=== PATIENT | female | born 1945 | race Caucasian/White ===

== ENCOUNTER → 2017-01-30 | Outpatient (CLI) | payer BC ==
[~2017-01-30] MED LIST: ACET-1256 PO; ADVIN50/60 INH; ALBU18002 INH; ALBUAER19 INH; ALPR-411 PO; AMLO-110 PO; AMOX1TAB43 PO; AMOX875T PO; ASPCH81X PO; ATOR80TA PO; CARV25TA PO; CHOL400T PO; CLOP1TAB54 PO; EZET10TA47 PO; FERR1TAB13 PO; FRRS300 PO; FRS/40 PO; FURO20TA PO; GLC/500 PO; GUAISYP4 PO; IPRA1AER2 INH; IPRASOL4 INH; LISI40TA PO; LSN5 PO; LSX20 PO; LSX40 PO; LVQ250 PO; MAGN1CAP2 PO; MAGN400T6 PO; METF500T PO; MGNO400 PO; MRLP17 PO; MRP25 PO; NUTR-7 PO; NYSS5 PO; OMEG10007 PO; OMEP40CA41 PO; ONDA8TAB62 SL; OXYC1TAB3 PO; POLY335019 PO; POTA-327 PO; POTA-74 PO; POTA10CA28 PO; PRED10TA PO; PRED20TA2 PO; PRVHFAIN INH; RXC5 PO; SERT50TA PO; SPIR25TA PO; SPIR50TA PO; SPR25 PO; SPRIN INH; SPRIN/30 INH; VNTHFA/IN INH; ZNT/150 PO
[2017-01-30 14:40] LABS: BASO % 0.2 %; BASO ABS # 0.01 K/uL (0-0.2); COMPLETE YES; HEMATOCRIT 37.6 % (37-47); LYMPH % 24.4 %; LYMPH ABS # 1.47 K/uL (1.2-3.4); MEAN CELL VOLUME 92.6 fL (80-100); MEAN CORPUSCULAR HEMOGLOBIN 30.5 pg (25-34); MEAN PLATELET VOLUME 9.7 fL (7.4-10.4); MONO % 11.8 %; NEUT % 61.6 %; PLATELET COUNT 189 K/uL (130-400); RED BLOOD COUNT 4.06 M/uL (4.2-5.4); WHITE BLOOD COUNT 6.03 K/uL (4.8-10.8)
[2017-01-30 14:52] LABS: URINE APPEARANCE CLEAR (CLEAR); URINE BILIRUBIN NEG (NEG); URINE COLOR YELLOW; URINE NITRITE NEG (NEG); URINE PH 6.5 (4.5-7.5); URINE SPECIFIC GRAVITY 1.008 (1.000-1.030); UROBILINOGEN NEG (NEG); ZZUR CULT IF INDIC CLEAN CATCH NO
[2017-01-30 14:54] LABS: MANUAL MICROSCOPIC REQUIRED? NO; REVIEW REQ? NO
[2017-01-30 15:03] LABS: ESTIMATED AVERAGE GLUCOSE 131 mg/dl; HA1C FLAG Normal (Normal)
[2017-01-30 15:30] LABS: CALCIUM 9.2 mg/dl (8.5-10.1)
[2017-01-30 15:59] LABS: ALT/SGPT 24 U/L (12-78); AST/SGOT 20 U/L (15-37); BLOOD UREA NITROGEN 17 mg/dl (7-18); BUN/CREATININE RATIO 19.1 (10-20); CARBON DIOXIDE 27 mmol/L (21-32); CHLORIDE 98 mmol/L (98-107); CHOLESTEROL 99 mg/dl (0-200); CREATININE 0.89 mg/dl (0.60-1.20); GLUCOSE 82 mg/dl (70-99); SODIUM 135 mmol/L (136-145); TRIGLYCERIDES 59 mg/dl (0-150); VERY LOW DENSITY LIPOPROT CALC 12 mg/dl
[2017-01-30 16:09] LABS: ALKALINE PHOSPHATASE 73 U/L (45-117); CHOLESTEROL/HDL RATIO 1.7; HDL CHOLESTEROL 60 mg/dl; LDL CHOLESTEROL CALCULATED 27 mg/dl
--- NOTE | 2017-02-06 10:17 | CODING QUERY MEDICAL NECESSITY ---
CQSUPPORTING DIAGNOSIS NEEDED A supporting diagnosis is required for the test/procedure performed on this patient in order for us to be reimbursed by the patient's insurance. Please provide a supporting diagnosis for the following test/procedure listed below next to the test name along with your signature. *If there is no additional diagnosis for this patient that would support the following test/procedure please document that below next to the test/procedure. Test(s)/Procedure(s) that require a supporting diagnosis: DOS 01/30/17 VITAMIN B12 TEST Provider Signature: Date: Thank you Millie Castillo Health Information Management Once completed, please kindly fax back to [phone] For questions please call [phone]
== END | disposition home or self-care (01) ==
LOC: C.LAB1850 13:12
PROVIDERS: ATTEND Internal Medicine
DX: E55.9 Vitamin D deficiency, unspecified (principal); D64.9 Anemia, unspecified; E78.5 Hyperlipidemia, unspecified; I10 Essential (primary) hypertension; E11.9 Type 2 diabetes mellitus without complications

== ENCOUNTER 2017-02-16 07:53 | Inpatient (IN) | payer BC, OTHER ==
[2017-02-16] VITALS (8 sets, daily range): BP systolic 103–161; BP diastolic 49–73; PULSE 83–103; TEMP 36.9–37.3; O2SAT 90–96; Ht 157.5 cm; Wt 51.1 kg
[~2017-02-16] VITALS: Ht 157.5 cm; Wt 51.1 kg
[~2017-02-16 07:53] MED LIST changes: -ACET-1256 PO; -ALBU18002 INH; -ALPR-411 PO; -AMOX1TAB43 PO; -AMOX875T PO; -ASPCH81X PO; -ATOR80TA PO; -CARV25TA PO; -CLOP1TAB54 PO; -EZET10TA47 PO; -FERR1TAB13 PO; -FRRS300 PO; -FRS/40 PO; -GLC/500 PO; -GUAISYP4 PO; -IPRA1AER2 INH; -IPRASOL4 INH; -LSN5 PO; -LSX20 PO; -LSX40 PO; -MAGN400T6 PO; -MGNO400 PO; -MRLP17 PO; -MRP25 PO; -NUTR-7 PO; -NYSS5 PO; -OMEG10007 PO; -OMEP40CA41 PO; -ONDA8TAB62 SL; -OXYC1TAB3 PO; -POLY335019 PO; -POTA-74 PO; -POTA10CA28 PO; -PRED10TA PO; -PRED20TA2 PO; -PRVHFAIN INH; -RXC5 PO; -SERT50TA PO; -SPIR25TA PO; -SPR25 PO; -SPRIN INH; -SPRIN/30 INH; -VNTHFA/IN INH; -ZNT/150 PO
[2017-02-16] MEDS ORDERED: SODIUM CHLORIDE 0.9% 1000ML 1,000 ML IV STA (08:19)
[2017-02-16 08:34] LABS: BASO % 0.1 %; BASO ABS # 0.01 K/uL (0-0.2); COMPLETE YES; HEMATOCRIT 38.4 % (37-47); IG% 0.4 %; LYMPH % 15.1 %; LYMPH ABS # 1.24 K/uL (1.2-3.4); MEAN CELL VOLUME 91.6 fL (80-100); MEAN CORPUSCULAR HEMOGLOBIN 31.7 pg (25-34); MEAN CORPUSCULAR HGB CONC 34.6 g/dl (32-36); MEAN PLATELET VOLUME 9.3 fL (7.4-10.4); MONO % 3.8 %; NEUT % 80.6 %; PLATELET COUNT 204 K/uL (130-400); RED BLOOD COUNT 4.19 M/uL (4.2-5.4); WHITE BLOOD COUNT 8.21 K/uL (4.8-10.8)
[2017-02-16 08:52] LABS: BUN/CREATININE RATIO 25.5 (10-20); CREATININE 0.87 mg/dl (0.60-1.20)
[2017-02-16 08:56] LABS: URINE APPEARANCE CLEAR (CLEAR); URINE BILIRUBIN NEG (NEG); URINE COLOR YELLOW; URINE NITRITE NEG (NEG); URINE PH 7.5 (4.5-7.5); URINE SPECIFIC GRAVITY 1.013 (1.000-1.030); UROBILINOGEN NEG (NEG); ZZUR CULT IF INDIC CLEAN CATCH YES
--- NOTE | 2017-02-16 08:56 | DIAGNOSTIC IMAGING REPORT ---
CHEST ONE VIEW PORTABLE HISTORY: syncope COMPARISON: Chest 03/15/2016. FINDINGS: The heart remains enlarged. Mild diffuse interstitial thickening suggestive of congestive change persists. No pleural effusions. No pneumothorax. No new focal lung consolidations. Left-sided pacemaker/defibrillator. IMPRESSION: No change in the cardiomegaly and mild congestive change. Electronically signed by: Alverto Pereira M.D. 02/16/2017 8:55 AM Dictated Date/Time: 02/16/2017 8:51 AM
[2017-02-16 09:01] LABS: MANUAL MICROSCOPIC REQUIRED? NO; REVIEW REQ? NO; SULFASALICYLIC ACID POS (NEG)
[2017-02-16] MEDS ORDERED: ALBUT/IPRATROP 3MG/0.5MG NEB 3 ML VIAL ONE (09:14)
[2017-02-16] MEDS ORDERED: ALBUT/IPRATROP 3MG/0.5MG NEB 3 ML VIAL INH STA ×2 (09:15→09:28)
[2017-02-16] MEDS ORDERED: METHYLPREDNISOLONE 125 MG VIAL IV STA (09:15)
[2017-02-16] MEDS ORDERED: ONDANSETRON INJ 2 MG/ML 2 ML VIAL IV STA (09:35)
--- NOTE | 2017-02-16 09:52 | DIAGNOSTIC IMAGING REPORT ---
ABDOMEN AND PELVIS CT WITH IV CONTRAST CT DOSE: 248.15 mGy.cm HISTORY: epigastric abd pain nausea. TECHNIQUE: Multiaxial CT images of the abdomen and pelvis were performed following the use of intravenous contrast. COMPARISON STUDY: Chest CTA 03/15/2016. FINDINGS: Pacemaker wires are present. The heart remains enlarged. Emphysema. Mild interstitial thickening and peripheral groundglass densities within the lung bases. There is a 7 mm groundglass nodule within the right lower lobe on image 6. No pneumoperitoneum. No pneumatosis. No suspicious lytic or blastic osseous lesions. Mild periportal edema. No hepatic or splenic masses. The adrenal glands and gallbladder are unremarkable. There is a punctate calcification within the pancreatic head. There suggestion of pancreas divisum. Bilateral renal calculi. There are few vascular calcifications within the left kidney. No hydronephrosis. The bladder is unremarkable. The uterus is surgically absent. No pelvic free fluid. No retroperitoneal lymphadenopathy. Heavily calcified abdominal aorta. 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 A 9 mm hypodense lesion within the right kidney is too small to characterize. A few sigmoid diverticula. No bowel wall thickening or obstruction. Small fat-containing right-sided Bochdalek hernia. IMPRESSION: 1. No bowel wall thickening or obstruction. 2. Normal appendix. 3. Bilateral nephrolithiasis. No hydronephrosis. 4. Mild periportal edema. 5. Cardiomegaly with mild interstitial thickening at the lung bases. This favors mild pulmonary edema. 6. A 7 mm groundglass nodule within the right lower lobe. Please refer to the chart below for recommended follow-up. 7. Pancreas divisum. 8. Additional findings are described above. Please refer to below summary of Fleischner criteria recommendations for follow-up of incidental CT nodules ([facility], Guidelines for management of small pulmonary nodules detected on CT scans: A statement from the Fleischner Society, Radiology 237: [phone].) SOLID NODULES Solitary nodule size: <6 mm * Low risk patients: no follow-up needed * high risk patients: optional CT at 12 months Solitary nodule size: 6-8 mm * Low risk patients: follow-up at 6-12 months, then consider further follow-up at 18-24 months * high risk patients: initial follow-up CT at 6-12 months and then at 18-24 months if no change Solitary nodule size: >8 mm * either low or high risk patients - consider follow-up CT at 3 months, and/or CT-PET, and/or biopsy Multiple nodules size: <6 mm * Low risk patients: no routine follow-up * high risk patients: optional CT at 12 months Multiple nodules size: 6-8 mm * Low risk patients: follow-up at 3-6 months, then consider further follow-up at 18-24 months * high risk patients: follow-up at 3-6 months, then at 18-24 months if no change Multiple nodules size: >8 mm * Low risk patients: follow-up at 3-6 months, then consider further follow-up at 18-24 months * high risk patients: follow-up at 3-6 months, then at 18-24 months if no change Note: newly detected indeterminate nodule in persons 35 years of age or older. * Low risk patients: minimal or absent history of smoking and/or other known risk factors * high risk patients: history of smoking or of other known risk factors (e.g. first degree relative with lung cancer, or exposure to asbestos, radon, uranium) * if a nodule up to 8 mm is partly solid or is ground glass further follow-up is required after 24 months to exclude possible slow growing adenocarcinoma (SHAUN) SUBSOLID NODULES Solitary pure ground-glass nodule * nodule size <6 mm - no CT follow-up required * nodule size >=6 mm - follow-up CT at 6-12 months, then every 2 years until 5 years Solitary part-solid nodule * nodule size <6 mm - no CT follow-up required * nodule size >=6 mm - follow-up CT at 3-6 months. If unchanged, and solid component remains <6 mm, then annual follow-up for 5 years Multiple subsolid nodules * nodule size <6 mm - follow-up CT at 3-6 months, consider further follow-up at 2 and 4 years if stable * nodule size >=6 mm - follow-up CT at 3-6 months, subsequent management based on the most suspicious nodule(s) Electronically signed by: Alverto Pereira M.D. 02/16/2017 9:51 AM Dictated Date/Time: 02/16/2017 9:40 AM
[2017-02-16] MEDS ORDERED: METOCLOPRAMIDE HCL INJ 5 MG/ML 2 ML VIAL IV STA (10:20)
--- NOTE | 2017-02-16 11:44 | DIAGNOSTIC IMAGING REPORT ---
CHEST CTA for PULMONARY ARTERIES CT DOSE: 227.71 mGy.cm HISTORY: Short of breath. TECHNIQUE: Multiaxial CT images of the chest were performed following the intravenous administration of contrast to evaluate the pulmonary arteries. Maximal intensity projection images were also obtained. COMPARISON STUDY: Chest CTA 03/15/2016. FINDINGS: No evidence for a dissection within the ascending thoracic aorta or aortic arch. Inadequate contrast within the descending thoracic aorta to assess for dissection. The thoracic aorta is normal in course and caliber. Heavily calcified thoracic aorta. The heart is enlarged. Left-sided pacemaker is again noted. No pleural or pericardial effusions. The main pulmonary artery measures up to 3.4 cm. This is consistent with pulmonary arterial hypertension. This remains unchanged. No evidence for pulmonary embolus. No pneumothorax. Emphysema. Diffuse interlobular septal thickening most pronounced at the lung bases. There are also multiple subpleural nodular densities within the lung bases. The largest in the right lower lobe measures 7 mm. Mild bronchial wall thickening. Patchy airspace opacities within the bases of the bilateral lower lobes posteriorly have also progressed from the abdomen and pelvis CT performed 2 hours earlier. Stable prominent paratracheal lymph node. No hilar lymphadenopathy. IMPRESSION: 1. No evidence for pulmonary embolus. 2. Progressive diffuse interstitial thickening likely representing interstitial pulmonary edema. 3. There are also progressive nodular densities within the periphery of the lung bases and progressive airspace opacities within the bilateral lower lobes posteriorly. This could also be due to alveolar pulmonary edema. However, an atypical pneumonia could also have a similar appearance. [address] follow-up is recommended to ensure resolution. 4. Emphysema. 5. Additional findings as described above. Electronically signed by: Alverto Pereira M.D. 02/16/2017 11:42 AM Dictated Date/Time: 02/16/2017 11:32 AM
[2017-02-16] MEDS ORDERED: ACETAMINOPHEN 325 MG TAB PO PRN (12:15)
[2017-02-16] MEDS ORDERED: POLYETHYLENE (MIRALAX) 17 GM PACK PO PRN (12:15)
[2017-02-16] MEDS ORDERED: ALUMINUM/MAGNESIUM/SIMETH (MAALOX MAX) 30 ML UDC PO PRN (12:15)
[2017-02-16] MEDS ORDERED: MAGNESIUM HYDROXIDE SUSP 30 ML UDC PO PRN (12:15)
--- NOTE | 2017-02-16 12:32 | Progress Note ---
Progress Note Date of Service February 16, 2017. Progress Note copd ex[facility], n/v, , [id number], 7mm RLL nodule, need to f/u with pcp, and f/u as recommended
[2017-02-16] MEDS ORDERED: AZITHROMYCIN 250 MG TAB PO ONE (12:37)
--- NOTE | 2017-02-16 13:19 | HISTORY & PHYSICAL EXAMINATION ---
DATE OF ADMISSION: 02/16/2017 This is level 3 inpatient admission, 35 minutes. CHIEF COMPLAINT: Nausea, vomiting, hypoxic. HISTORY OF PRESENT ILLNESS: The patient is a 71-year-old white female with a significant past medical history of diabetic, CAD, hypertension, asthma, pacemaker, came into the hospital Emergency Department because of the above chief complaint. The patient reports has persistent nauseation since last night. Became dizziness, some episodes of syncope. She does not believe she hit her head. Experienced 2-3 episodes of nauseation after passing out. Denied history of abdominal surgery. She has a pacemaker. In the Emergency Room, the abdominal CT studies were done. There was no acute disease. The patient was found has hypoxic. Nebulizer treatment and Solu-Medrol was given 1 dose. History of tobacco abuse disorder. ED physician feels the patient may have COPD exacerbation. When I interviewed with the patient, she looked tired but awake, alert and orientated. No more nausea, vomiting, no abdominal pain. Denied diarrhea or constipation. Denied chest pain, palpitations. No obvious lower extremity swelling. The patient has a wet cough, sounds congested in the lung. Denied fever or chills. Denied headache, blurry vision, double vision. The patient was smiling. Denies skin rashes. She reported feeling a little bit better after nebulizer treatment. PAST MEDICAL HISTORY: Include anemia, asthma, CAD, cardiac defibrillators in place, chronic kidney disease, diabetic, hypoxic and dyslipidemia. The patient does not need oxygen at home. ALLERGIES: ALLERGIC TO SULFA ANTIBIOTICS. FAMILY HISTORY: No significant family history. SOCIAL HISTORY: Current smoking half pack per day. Denied alcohol abuse disorder. Denied illicit drug abuse. MEDICATIONS: Currently taking at home include albuterol 2 puff q. 4-6 hour, amlodipine 7.5 mg p.o. q.p.m., aspirin 81 mg p.o. q.p.m., Lipitor 80 mg p.o. at bedtime, Coreg 25 mg p.o. b.i.d., Plavix 75 mg p.o. q.a.m., Zetia 10 mg p.o. at bedtime, fish oil 1 cap p.o. q. daily, Advair 500/50 1 puff b.i.d., Lasix 40 mg p.o. q.a.m., lisinopril 40 mg p.o. q.a.m., metformin 500 mg p.o. b.i.d., potassium 10 mEq p.o. b.i.d., Zoloft 50 mg p.o. q.a.m. PHYSICAL EXAMINATION: VITAL SIGNS: Temperature is 36.9, pulse 86, respiration rate 20, blood pressure 153/68, pulse ox was 95% on room air, later she needed 2-3 liters of CO2. GENERAL: The patient is awake, alert, and orientated, but looks tired. HEAD: Normocephalic. EYES: Pupils equal, round responds to light. EARS: Ear was normal. NOSE: Normal. NECK: Supple. Thyroid no enlargement. Trachea midline. HEART: Regular rhythm. S1, S2. LUNGS: Decreased breathing sounds, sporadic wheezing. Associated with dry crackles in bilateral lower lung. ABDOMEN: Soft, nontender. Bowel sound was positive. EXTREMITIES: Bilateral CVA was nontender. Bilateral upper and lower extremities no edema. Homans sign was negative. NEUROLOGICAL EVALUATION: Cranial nerve II-XII was intact. There was no focal deficits. IMAGING STUDIES: Chest x-ray shows mild congestive changes. Chest CT studies, there was no acute PE. Bilateral nephrolithiasis, no hydronephrosis. Again shows mild pulmonary edema. A 7 mm ground-glass nodules in the right lower lobe. Chest CT has no PE. LABORATORY STUDIES: WBC 8, hemoglobin 13, platelet 204. D-dimer 1050. Sodium 135, potassium 4, BUN 20, creatinine 0.8. Blood glucose 139. Liver function test was within normal limits. UA not remarkable. Urine culture pending. ASSESSMENT AND PLAN: A 71-year-old white female with the problems below: 1. Nausea, vomiting, possible gastritis. Abdominal CT are not remarkable. No acute disease. Will be supportive care. 2. Likely chronic obstructive pulmonary disease exacerbation with history of smoking with diffuse pulmonary wheezing. 3. Possible congestive heart failure exacerbation. I reviewed, no recent echo was done. The patient has shortness of breath with mild pulmonary edema in the chest x-ray and CT. 4. The patient has pacemaker. Is planning to have it replaced on next Saturday, which is in [address] Fernandes, therefore will consult Dr. Fernandes. 5. Diabetic. 6. History of coronary artery disease. 7. Dyslipidemia. Like I mentioned in the above, the patient has nausea, vomiting, and abdominal CT study not any acute disease. Lipase was negative, so will be supportive care by giving Zofran and PPI. The patient has hypoxic, the differential diagnosis includes COPD exacerbation or CHF exacerbation, likely has COPD exacerbation because history of smoking and diffuse wheezing. I will give azithromycin p.o. nebulizer treatment. Solu-Medrol IV. At the same time, like I mentioned, the differential diagnosis includes CHF. I will check echocardiogram. She was on oral Lasix 40 mg p.o. daily, will change to IV. Will follow up renal function. Check BNP, follow up chemical panels. Because the patient is going to be seen by Dr. Fernandes Saturday so will have him consultation for the replacement of pacemaker. Again, patient has syncope prior to admission, pacemaker was located which functioned well so the syncope etiology is unknown so will be in tele monitor. Other medical conditions include chronic kidney disease, CAD, diabetic, dyslipidemia, will continue home medication. Check fasting lipid panel and HbA1c. Check echocardiogram. GI and DVT prophylaxis is covered. MTDD
--- NOTE | 2017-02-16 13:24 | EMERGENCY ROOM VISIT NOTE ---
History Report prepared by Phillip: Tucker Cano Under the Supervision of: Dr. Nahun Perez D.O. First contact with patient: 08:09 Chief Complaint: NAUSEA Stated Complaint: NAUSEA, PASSED OUT ONCE, VOMITING History of Present Illness The patient is a 71 year old female who presents to the Emergency Room with complaints of persistent nausea since last night. The patient became dizzy and experienced an episode of syncope between 0130 and 0200 this morning. The patient does not believe that she hit her head. She experienced 2-3 episodes of vomiting after passing out, and did not vomit at all prior to that. She has had no abdominal surgeries. She has a pacemaker. Patient denies headache, change in vision, fevers, cough, rhinorrhea, chest pain, shortness of breath, abdominal pain, hematemesis, diarrhea, pain with urination, bright-red blood in her stools , or melena. Source of History: patient Onset: last night Position: other (GI) Quality: other (nausea) Timing: other (persistent) Associated Symptoms: + vomiting, No SOB, No abdominal pain, No chest pain, No cough, No diarrhea, No fevers, No headache, No hematochezia, No melena, No urinary symptoms Review of Systems See HPI for pertinent positives & negatives. A total of 10 systems reviewed and were otherwise negative. Past Medical & Surgical Medical Problems: (1) ANEMIA NOS (2) ASTHMA, UNSPECIFIED (3) Cardiac defibrillator in place (4) CHRONIC KIDNEY DISEASE, UNSPECIFIED (5) copd exac, n/v, (6) CORONARY ATHEROSCLEROSIS OF [place] CORONARY VESSEL (7) DIAB [place] WO COMPL, TYPE II OR UNSPEC TYPE, NOT UNCNTRLD (8) Hypoxia (9) PURE HYPERCHOLESTEROLEM Family History Patient reports no known family medical history. Social History Smoking Status: Current Every Day Smoker Drug Use: none Marital Status: Housing Status: lives with family Occupation Status: retired Current/Historical Medications Scheduled Albuterol Inhaler (Ventolin Inhaler), 2 PUFFS INH Q4-6H Amlodipine (Norvasc), 7.5 MG PO QPM Aspirin (Aspirin Chewable), 81 MG PO QPM Atorvastatin Calcium (Lipitor), 80 MG PO HS Carvedilol (Coreg), 25 MG PO BID Clopidogrel Bisulfate (Plavix), 75 MG PO QAM Ezetimibe (Zetia), 10 MG PO HS Fish Oil ([place]-3), 1 CAP PO DAILY Fluticasone Prop/Salmeterol (Advair Diskus 500/50 60 Dose), 1 PUFF INH BID Furosemide (Lasix), 40 MG PO QAM Lisinopril (Zestril), 40 MG PO QAM Metformin Hcl (Glucophage), 500 MG PO BID Potassium Chloride (Micro-K Ext Rel), 10 MEQ PO BID Sertraline (Zoloft), 50 MG PO QAM Allergies Coded Allergies: Sulfa Antibiotics (Verified Allergy, Intermediate, RASH, 02/16/17) Physical Exam Vital Signs Date Time Temp Pulse Resp B/P Pulse Ox O2 Delivery O2 Flow Rate FiO2 02/16/17 12:43 105 24 90 02/16/17 12:38 100 26 90 02/16/17 12:33 100 26 87 02/16/17 12:23 97 27 89 02/16/17 12:18 100 21 90 02/16/17 12:13 98 21 89 02/16/17 12:08 99 27 89 02/16/17 12:03 100 27 89 02/16/17 12:00 151/63 02/16/17 11:58 101 28 91 02/16/17 11:53 100 28 88 02/16/17 11:48 99 27 88 02/16/17 11:43 99 27 89 02/16/17 11:38 102 29 91 02/16/17 11:33 99 27 89 02/16/17 11:30 152/68 02/16/17 11:28 98 26 89 02/16/17 11:08 97 25 93 02/16/17 11:03 93 20 92 02/16/17 11:00 159/71 02/16/17 10:59 96 02/16/17 10:58 98 25 93 02/16/17 10:53 99 23 92 02/16/17 10:48 96 28 91 02/16/17 10:43 89 20 92 02/16/17 10:38 93 25 91 02/16/17 10:30 155/65 02/16/17 10:28 96 19 91 02/16/17 10:23 99 22 98 02/16/17 10:18 95 20 94 02/16/17 10:15 153/70 02/16/17 10:13 97 20 94 02/16/17 10:08 90 26 91 02/16/17 10:03 92 25 90 02/16/17 10:00 156/66 02/16/17 09:58 95 24 92 02/16/17 09:53 92 18 91 02/16/17 09:48 90 21 91 02/16/17 09:46 154/60 02/16/17 09:43 93 18 93 02/16/17 09:38 95 22 97 02/16/17 09:33 93 18 98 02/16/17 09:30 151/64 02/16/17 09:28 95 19 99 02/16/17 09:23 98 18 99 02/16/17 09:18 105 24 98 02/16/17 09:16 141/68 02/16/17 09:13 113 28 93 02/16/17 09:11 165/64 02/16/17 09:11 95 Nasal Cannula 4.0 02/16/17 09:10 150/111 02/16/17 08:53 92 22 90 02/16/17 08:48 91 27 94 02/16/17 08:43 88 21 02/16/17 08:38 93 25 92 02/16/17 08:33 92 25 95 02/16/17 08:31 153/70 02/16/17 08:28 93 20 94 02/16/17 08:23 94 25 94 02/16/17 08:09 151/69 02/16/17 07:57 36.9 86 20 153/68 99 Room Air Physical Exam GENERAL: Sitting up in bed, uncomfortable appearing, nontoxic. EYE EXAM: normal conjunctiva. OROPHARYNX: no exudate, no erythema, lips, buccal mucosa, and tongue normal and mucous membranes are moist NECK: supple, no nuchal rigidity, no adenopathy, non-tender LUNGS: Faint wheezing bilaterally. Normal chest wall mechanics HEART: no murmurs, S1 normal and S2 normal ABDOMEN: abdomen soft, non-tender, normo-active bowel sounds, no masses, no rebound or guarding. BACK: Back is symmetrical on inspection and there is no deformity, no midline tenderness, no CVA tenderness. SKIN: no rashes and no bruising UPPER EXTREMITIES: upper extremities are grossly normal. LOWER EXTREMITIES: No pitting edema. NEURO EXAM: Normal sensorium, cranial nerves II-XII intact, normal speech, no weakness of arms, no weakness of legs. No drift. Finger to nose intact. Gross sensation intact. Medical Decision & Procedures ER Provider Diagnostic Interpretation: Radiology results as stated below per my review and the radiologist's interpretation: CHEST ONE VIEW PORTABLE HISTORY: syncope COMPARISON: Chest 03/15/2016. FINDINGS: The heart remains enlarged. Mild diffuse interstitial thickening suggestive of congestive change persists. No pleural effusions. No pneumothorax. No new focal lung consolidations. Left-sided pacemaker/defibrillator. IMPRESSION: No change in the cardiomegaly and mild congestive change. Electronically signed by: Alverto Pereira M.D. 02/16/2017 8:55 AM Dictated Date/Time: 02/16/2017 8:51 AM ABDOMEN AND PELVIS CT WITH IV CONTRAST CT DOSE: 248.15 mGy.cm HISTORY: epigastric abd pain nausea. TECHNIQUE: Multiaxial CT images of the abdomen and pelvis were performed following the use of intravenous contrast. COMPARISON STUDY: Chest CTA 03/15/2016. FINDINGS: Pacemaker wires are present. The heart remains enlarged. Emphysema. Mild interstitial thickening and peripheral groundglass densities within the lung bases. There is a 7 mm groundglass nodule within the right lower lobe on image 6. No pneumoperitoneum. No pneumatosis. No suspicious lytic or blastic osseous lesions. Mild periportal edema. No hepatic or splenic masses. The adrenal glands and gallbladder are unremarkable. There is a punctate calcification within the pancreatic head. There suggestion of pancreas divisum. Bilateral renal calculi. There are few vascular calcifications within the left kidney. No hydronephrosis. The bladder is unremarkable. The uterus is surgically absent. No pelvic free fluid. No retroperitoneal lymphadenopathy. Heavily calcified abdominal aorta. 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 A 9 mm hypodense lesion within the right kidney is too small to characterize. A few sigmoid diverticula. No bowel wall thickening or obstruction. Small fat-containing right-sided Bochdalek hernia. IMPRESSION: 1. No bowel wall thickening or obstruction. 2. Normal appendix. 3. Bilateral nephrolithiasis. No hydronephrosis. 4. Mild periportal edema. 5. Cardiomegaly with mild interstitial thickening at the lung bases. This favors mild pulmonary edema. 6. A 7 mm groundglass nodule within the right lower lobe. Please refer to the chart below for recommended follow-up. 7. Pancreas divisum. 8. Additional findings are described above. Please refer to below summary of Fleischner criteria recommendations for follow-up of incidental CT nodules ([place] Dawn, Guidelines for management of small pulmonary nodules detected on CT scans: A statement from the Fleischner Society, Radiology 237: [phone].) SOLID NODULES Solitary nodule size: <6 mm * Low risk patients: no follow-up needed * high risk patients: optional CT at 12 months Solitary nodule size: 6-8 mm * Low risk patients: follow-up at 6-12 months, then consider further follow-up at 18-24 months * high risk patients: initial follow-up CT at 6-12 months and then at 18-24 months if no change Solitary nodule size: >8 mm * either low or high risk patients - consider follow-up CT at 3 months, and/or CT-PET, and/or biopsy Multiple nodules size: <6 mm * Low risk patients: no routine follow-up * high risk patients: optional CT at 12 months Multiple nodules size: 6-8 mm * Low risk patients: follow-up at 3-6 months, then consider further follow-up at 18-24 months * high risk patients: follow-up at 3-6 months, then at 18-24 months if no change Multiple nodules size: >8 mm * Low risk patients: follow-up at 3-6 months, then consider further follow-up at 18-24 months * high risk patients: follow-up at 3-6 months, then at 18-24 months if no change Note: newly detected indeterminate nodule in persons 35 years of age or older. * Low risk patients: minimal or absent history of smoking and/or other known risk factors * high risk patients: history of smoking or of other known risk factors (e.g. first degree relative with lung cancer, or exposure to asbestos, radon, uranium) * if a nodule up to 8 mm is partly solid or is ground glass further follow-up is required after 24 months to exclude possible slow growing adenocarcinoma (SHAUN) SUBSOLID NODULES Solitary pure ground-glass nodule * nodule size <6 mm - no CT follow-up required * nodule size >=6 mm - follow-up CT at 6-12 months, then every 2 years until 5 years Solitary part-solid nodule * nodule size <6 mm - no CT follow-up required * nodule size >=6 mm - follow-up CT at 3-6 months. If unchanged, and solid component remains <6 mm, then annual follow-up for 5 years Multiple subsolid nodules * nodule size <6 mm - follow-up CT at 3-6 months, consider further follow-up at 2 and 4 years if stable * nodule size >=6 mm - follow-up CT at 3-6 months, subsequent management based on the most suspicious nodule(s) Electronically signed by: Alverto Pereira M.D. 02/16/2017 9:51 AM Dictated Date/Time: 02/16/2017 9:40 AM CHEST CTA for PULMONARY ARTERIES CT DOSE: 227.71 mGy.cm HISTORY: Short of breath. TECHNIQUE: Multiaxial CT images of the chest were performed following the intravenous administration of contrast to evaluate the pulmonary arteries. Maximal intensity projection images were also obtained. COMPARISON STUDY: Chest CTA 03/15/2016. FINDINGS: No evidence for a dissection within the ascending thoracic aorta or aortic arch. Inadequate contrast within the descending thoracic aorta to assess for dissection. The thoracic aorta is normal in course and caliber. Heavily calcified thoracic aorta. The heart is enlarged. Left-sided pacemaker is again noted. No pleural or pericardial effusions. The main pulmonary artery measures up to 3.4 cm. This is consistent with pulmonary arterial hypertension. This remains unchanged. No evidence for pulmonary embolus. No pneumothorax. Emphysema. Diffuse interlobular septal thickening most pronounced at the lung bases. There are also multiple subpleural nodular densities within the lung bases. The largest in the right lower lobe measures 7 mm. Mild bronchial wall thickening. Patchy airspace opacities within the bases of the bilateral lower lobes posteriorly have also progressed from the abdomen and pelvis CT performed 2 hours earlier. Stable prominent paratracheal lymph node. No hilar lymphadenopathy. IMPRESSION: 1. No evidence for pulmonary embolus. 2. Progressive diffuse interstitial thickening likely representing interstitial pulmonary edema. 3. There are also progressive nodular densities within the periphery of the lung bases and progressive airspace opacities within the bilateral lower lobes posteriorly. This could also be due to alveolar pulmonary edema. However, an atypical pneumonia could also have a similar appearance. [address] follow-up is recommended to ensure resolution. 4. Emphysema. 5. Additional findings as described above. Electronically signed by: Alverto Pereira M.D. 02/16/2017 11:42 AM Dictated Date/Time: 02/16/2017 11:32 AM Laboratory Results 02/16/17 08:19 Red Blood Count 4.19, Mean Corpuscular Volume 91.6, Mean Corpuscular Hemoglobin 31.7, Mean Corpuscular Hemoglobin Concent 34.6, Mean Platelet Volume 9.3, Neutrophils (%) (Auto) 80.6, Lymphocytes (%) (Auto) 15.1, Monocytes (%) (Auto) 3.8, Eosinophils (%) (Auto) 0.0, Basophils (%) (Auto) 0.1, Neutrophils # (Auto) 6.62, Lymphocytes # (Auto) 1.24, Monocytes # (Auto) 0.31, Eosinophils # (Auto) 0.00, Basophils # (Auto) 0.01 02/16/17 08:19 Test 02/16/17 08:05 02/16/17 08:19 Urine Color YELLOW Urine Appearance CLEAR (CLEAR) Urine pH 7.5 (4.5-7.5) Urine Specific [place] 1.013 (1.000-1.030) Urine Protein 2+ (NEG) Urine Glucose (UA) NEG (NEG) Urine Ketones NEG (NEG) Urine Occult Blood TRACE (NEG) Urine Nitrite NEG (NEG) Urine Bilirubin NEG (NEG) Urine Urobilinogen NEG (NEG) Urine Leukocyte Esterase NEG (NEG) Urine WBC (Auto) 0 /hpf (0-5) Urine RBC (Auto) 0-4 /hpf (0-4) Urine Hyaline Casts (Auto) 0 /lpf (0-5) Urine Epithelial Cells (Auto) 10-20 /lpf (0-5) Urine Bacteria (Auto) 4+ (NEG) White Blood Count 8.21 K/uL (4.8-10.8) Red Blood Count 4.19 M/uL (4.2-5.4) Hemoglobin 13.3 g/dL (12.0-16.0) Hematocrit 38.4 % (37-47) Mean Corpuscular Volume 91.6 fL (80-100) Mean Corpuscular Hemoglobin 31.7 pg (25-34) Mean Corpuscular Hemoglobin Concent 34.6 g/dl (32-36) Platelet Count 204 K/uL (130-400) Mean Platelet Volume 9.3 fL (7.4-10.4) Neutrophils (%) (Auto) 80.6 % Lymphocytes (%) (Auto) 15.1 % Monocytes (%) (Auto) 3.8 % Eosinophils (%) (Auto) 0.0 % Basophils (%) (Auto) 0.1 % Neutrophils # (Auto) 6.62 K/uL (1.4-6.5) Lymphocytes # (Auto) 1.24 K/uL (1.2-3.4) Monocytes # (Auto) 0.31 K/uL (0.11-0.59) Eosinophils # (Auto) 0.00 K/uL (0-0.5) Basophils # (Auto) 0.01 K/uL (0-0.2) RDW Standard Deviation 52.2 fL (36.4-46.3) RDW Coefficient of Variation 15.4 % (11.5-14.5) Immature Granulocyte % (Auto) 0.4 % Immature Granulocyte # (Auto) 0.03 K/uL (0.00-0.02) D-Dimer 1050 ug/L FEU (0-500) Anion Gap 8.0 mmol/L (3-11) Est Creatinine Clear Calc Drug Dose 46.2 ml/min Estimated GFR () 77.1 Estimated GFR (Non- 66.6 BUN/Creatinine Ratio 25.5 (10-20) Bedside Glucose 139 mg/dl (70-90) Calcium Level 10.0 mg/dl (8.5-10.1) Total Bilirubin 0.5 mg/dl (0.2-1) Direct Bilirubin 0.1 mg/dl (0-0.2) Aspartate Amino Transf (AST/SGOT) 18 U/L (15-37) Alanine Aminotransferase (ALT/SGPT) 23 U/L (12-78) Alkaline Phosphatase 69 U/L (45-117) Troponin I 0.017 ng/ml (0-0.045) Total Protein 7.6 gm/dl (6.4-8.2) Albumin 4.1 gm/dl (3.4-5.0) Lipase 128 U/L (73-393) Laboratory results per my review. Medications Administered Medications (Trade) Dose Ordered Sig/[place] Route Start Time Stop Time Status Last Admin Dose Admin Sodium Chloride (Nss 1000ml) 1,000 ml @ 999 mls/hr Q1H1M STAT IV 02/16/17 08:19 02/16/17 09:19 DC 02/16/17 08:29 999 MLS/HR Albuterol/ Ipratropium (Duoneb) 3 ml NOW STAT INH 02/16/17 09:15 02/16/17 09:16 DC 02/16/17 09:28 3 ML Methylprednisolone Sodium Succinate (Solu-Medrol IV) 125 mg NOW STAT IV 02/16/17 09:15 02/16/17 09:16 DC 02/16/17 09:29 125 MG Albuterol/ Ipratropium (Duoneb) 3 ml NOW STAT INH 02/16/17 09:28 02/16/17 09:29 DC 02/16/17 09:41 3 ML Ondansetron HCl (Zofran Inj) 4 mg NOW STAT IV 02/16/17 09:35 02/16/17 09:36 DC 02/16/17 09:42 4 MG Metoclopramide HCl (Reglan Inj) 5 mg NOW STAT IV 02/16/17 10:20 02/16/17 10:21 DC 02/16/17 10:25 5 MG Azithromycin (Zithromax Tab) 500 mg 1237 ONCE PO 02/16/17 12:37 02/16/17 12:38 DC 02/16/17 12:45 500 MG ECG Indication: nausea Rate (beats per minute): 83 Rhythm: other (ventricular paced rhythm) Findings: left axis deviation, other (intermittent atrial contraction) Comparison ECG Date: 15 march 2016 Change: no significant change ED Course ED COURSE: Vital signs were reviewed and showed hypertension and tachycardia. The patients medical record was reviewed The above diagnostic studies were performed and reviewed. ED treatments and interventions as stated above. 0815: The patient was evaluated in room B5. A complete history and physical examination was performed. 0819: NSS 1000 ml @ 999 mls/hr. 0855: Spoke with Roman from [employer]. The pacemaker will be changed on by Dr. Fernandes. Her heart is paced due to an underlying block. The generator will last another several months. No aberrant rhythms noted. 14: The patient became short of breath while laying flat at CT. Pulse ox was 85 when she came back, She was placed on [place] oxygen. 0915: Solu-Medrol 125 mg IV, DuoNeb 3 ml INH. 0928: DuoNeb 3 ml INH. 0935: Zofran 4 mg IV. 1020: Reglan 5 mg IV. 1035: Updated the patient. 1110: The patient was still feeling short of breath upon reevaluation. 1144: Discussed the case with LEE Verdugo Hospitalist. The patient will be evaluated. 1145: Upon reevaluation, the patient is stable.I discussed my findings with the patient and she understands and agrees with the treatment plan. Based on the patients age, coexisting illnesses, exam and lab findings the decision to treat as an inpatient was made. The patient remained stable while under my care. The patient will be evaluated for further management. Medical Decision Differential diagnosis includes etiologies such as vasovagal event, infection, hypoglycemia, electrolyte abnormalities, cardiac sources, intracerebral event, toxicologic, neurologic, as well as others were entertained. Patient is a 71-year-old female who presents the ER for syncopal episode following nausea and vomiting associated with abdominal pain. She does have a pacemaker in place which is scheduled to be changed out this by Dr. Ureña. On exam she has a fairly benign abdomen. CT of her abdomen was performed and was negative, upon return from CAT scan she is hypoxic at 85% and significantly short of breath. She was placed on nasal cannula and given 2 neb treatments along with steroids. She had significant improvement of her symptoms. At this time she was sent back over for CT PE with a positive d- dimer. CT showed no acute PEs. There was a questionable infiltrate although she doesn't have any new acute cough. She remained on nasal cannula and was admitted to internal medicine for abdominal pain with persistent nausea and hypoxia likely secondary to her COPD. Pacemaker was interrogated on the ER and there is no aberrant rhythms. Consults Time Called: 1135 Consulting Physician: LEE Verdugo Hospitalist Returned Call: 1144 The patient will be evaluated. Impression Primary Impression: Nausea Additional Impressions: Hypoxia Syncope Scribe Attestation The scribe's documentation has been prepared under my direction and personally reviewed by me in its entirety. I confirm that the note above accurately reflects all work, treatment, procedures, and medical decision making performed by me. Departure Information Dispostion Being Evaluated By Hospitalist Referrals RV. Edwards MD (PCP) Patient Instructions My [facility] [address] Problem Qualifiers Additional Impressions: Syncope Syncope type: unspecified Qualified Codes: R55 - Syncope and collapse
[2017-02-16] MEDS ORDERED: DEXTROSE 50% 50 ML SYR IV PRN (13:45)
[2017-02-16] MEDS ORDERED: GLUCAGON FOR INJ 1 MG VIAL SQ PRN (13:45)
[2017-02-16] MEDS ORDERED: GLUCOSE 10 TABS/TUBE PO PRN (13:45)
[2017-02-16] MEDS ORDERED: GLUCOSE 40% GEL 15 GM TUBE PO PRN (13:45)
[2017-02-16] MEDS ORDERED: FUROSEMIDE INJ 40 MG in SYRINGE 0 ML IV STA (13:46)
[2017-02-16] MEDS ORDERED: LEVALBUTEROL/IPRATROPIUM NEB INH STA (13:46)
[2017-02-16] MEDS ORDERED: IPRATROPIUM BROMIDE NEB SOLN 0.02% 2.5 ML VIAL INH STA (13:51)
[2017-02-16] MEDS ORDERED: LEVALBUTEROL 1.25MG/0.5ML NEB INH STA (13:51)
[2017-02-16] MEDS: ONDANSETRON INJ 2 MG/ML 2 ML VIAL IV PRN (13:56)
[2017-02-16] MEDS ORDERED: FUROSEMIDE INJ 40 MG in SYRINGE 0 ML IV SCH (14:00)
[2017-02-16 14:04] LABS: PARTIAL THROMBOPLASTIN RATIO 1.1; PROTHROMBIN TIME (PATIENT) 10.6 SECONDS (9.0-12.0)
[2017-02-16 14:24] LABS: ALLEN TEST POS (POS); ARTERIAL BLD GAS O2 SATURATION 91.7 % (90-95); ARTERIAL BLOOD GAS BASE EXCESS -0.5 mEq/L (-9-1.8); ARTERIAL BLOOD GAS HCO3 24 mmol/L (19-24); ARTERIAL BLOOD GAS PO2 68 mm/Hg (80-95); ARTERIAL BLOOD GAS pH 7.41 (7.35-7.45); O2 ADMINISTRATION 6L
[2017-02-16] MEDS: IPRATROPIUM BROMIDE NEB SOLN 0.02% 2.5 ML VIAL INH SCH ×2 (14:43→20:02)
[2017-02-16] MEDS: LEVALBUTEROL 1.25MG/0.5ML NEB INH SCH ×2 (14:43→20:02)
[2017-02-16] MEDS ORDERED: PIPERACILL/TAZOBAC CONSULT ACTIVE PRN (14:59)
[2017-02-16] MEDS ORDERED: LEVALBUTEROL/IPRATROPIUM NEB INH SCH (15:00)
[2017-02-16] MEDS ORDERED: PIPERACILL/TAZOBAC IV 3.375 GM in DEXTROSE 5% 100ML IV ONE (15:30)
--- NOTE | 2017-02-16 15:39 | PULMONARY CONSULTATION ---
DATE OF CONSULTATION: 02/16/2017 DATE OF CONSULTATION: 02/16/2017. TIME: 2:30 p.m. REPORT OF CONSULTATION: The patient was seen in room 278, bed 1. Consultation is requested regarding hypoxia. HISTORY OF PRESENT ILLNESS: Mrs. Jameson presented to the Emergency Room with complaints of nausea and vomiting. The nausea began last evening. She states that during the night time she had gone into the bathroom. She was then getting up from the toilet and she passed out briefly. She did not hurt herself, she thinks. She then began having vomiting. She threw up 2-3 times. She states she was wide awake while she was vomiting. She does not think she vomited anything into her lungs. She is still nauseated. She was quite uncomfortable with nausea at the time I was doing my consult. This is despite having been given some medicines for this. After she got to her room at the floor she did not have oxygen on and her saturations were in the 70s. With nasal cannula; however, her oxygen came up fairly quickly. The patient states she is not significantly short of breath. She does have somewhat of a chronic cough. Occasionally she will expectorate mucus. She has not coughed up any blood. The patient was vague about her cough. She has a longstanding history of smoking. For about 55 years, she smoked 3/4 packs per day. She has been cutting back and for a month or so has been down to 3 cigarettes per day. She denies having any chills or fevers or sweats. She is not having abdominal pain. She denies having any loose stools. I asked her what she ate last evening. She states at suppertime she did not eat all that much, but after a while she had some cheese fries. She does not think she could have eaten anything that might have had food poisoning. Her did not get sick. The patient does have a history of COPD. She has been on a nebulizer as needed at home. She also has an Advair inhaler and Ventolin inhaler. She denies difficulty going up steps. I actually could not ask the patient very many more questions because she was so uncomfortable with her nausea. PAST SURGICAL HISTORY: 1. Pacer defibrillator. 2. Carotid endarterectomy. 3. Cataracts bilaterally. PAST MEDICAL HISTORY: 1. COPD. 2. Chronic kidney disease. 3. Coronary artery disease. 4. Diabetes type 2. 5. Hypercholesterolemia. FAMILY HISTORY: Both parents had heart disease. SOCIAL HISTORY: Tobacco as noted above 3/4 pack per day for 55 years, now down to 3 cigarettes per day. ALLERGIES: SULFA. REVIEW OF SYSTEMS: I could not obtain this completely because the patient was very uncomfortable from a nausea perspective. PHYSICAL EXAMINATION: GENERAL: The patient is a 71-year-old female who was cooperative, alert and oriented. She looked very uncomfortable from a perspective of the nausea. Her BMI is 20.7. Weight is 51.3 kilograms. HEAD, EYES, EARS, NOSE, AND THROAT: Eye exam showed implants bilaterally. Nares were clear. Nasal cannula was in place. Mouth exam was negative. NECK: Palpation of the neck reveals no lymph nodes. CHEST: Was of normal development. Heart rate was 100 per minute. The rhythm was regular. Respiratory rate was 24 breaths per minute. Oxygen saturation was 94% on 4 liters. LUNGS: The breath sounds are well heard. She did have scattered rales posteriorly bilaterally. ABDOMEN: Soft. Bowel sounds were present. She complained of some tenderness in the mid epigastrium with palpation. No masses were palpable. EXTREMITIES: Showed no cyanosis, clubbing or edema. The patient had a chest x-ray done that showed cardiomegaly with mild congestive change and interstitial thickening. A CAT scan of the abdomen was done and this showed bilateral nephrolithiasis but without hydronephrosis. A small 7 mm ground-glass nodule was seen in the right lower lobe. Approximately 2 hours after the CAT scan of the abdomen was done she had a CAT scan of the chest that showed progression of increased opacities in the lower lung english posteriorly. I suspect this may reflect pneumonia. I believe alveolar pulmonary edema is much less likely. Emphysema was noted. White count was 8.21. Hemoglobin 13.3. Platelets 204,000. Coags were normal. D-dimer was 1050. Urinalysis showed 2+ protein with 4+ bacteria. ABG showed a pH of 7.41 with a pCO2 of 39 and a pO2 of 68 on 6 liter nasal cannula. Electrolytes show sodium 135, potassium 4, chloride 98, bicarbonate 29. BUN is 22 with a creatinine of 0.87. Liver functions were normal. Troponin was normal. BNP was 6603. EKG showed a paced rhythm with a rate of 83. IMPRESSIONS: 1. Severe nausea and vomiting of undetermined origin. 2. Bibasilar lung infiltrates -- rule out pneumonia, possibly related to aspiration. 3. Chronic obstructive pulmonary disease. 4. Multiple small lung nodules, right lower lobe. 5. Syncope. 6. Urinary tract infection. 7. Rule out pulmonary hypertension. COMMENTS AND RECOMMENDATIONS: The patient was somewhat difficult to assess. Her symptoms are primarily those of gastrointestinal complaints. However, she is hypoxic and shunting. It would appear that she is currently on azithromycin only. I would think she should be on more than that. She is only listed ALLERGIC TO SULFA. Zosyn would seemingly be a good choice particularly if she may have aspirated. I believe blood culture should be obtained in the event she is septic, but does not have a fever. She is on methylprednisolone at very high doses at 80 mg IV q. 8 hours. I perhaps would decrease the dose as soon as feasible especially with her having the nausea and being diabetic. I do not think she is that tight. She does have levalbuterol and ipratropium ordered. I agree with that. She is ordered at least 1 dose of Lasix. Pulmonary hypertension was suggested off of the CAT scan. I would suggest doing an echo in light of that. Thank you very much for asking me to assist in her care. VITOR
[2017-02-16] MEDS ORDERED: PROMETHAZINE HCL INJ 25 MG in SODIUM CHLORIDE 0.9% 50ML 50 ML IV ONE (15:45)
[2017-02-16] MEDS ORDERED: ALBUT/IPRATROP 3MG/0.5MG NEB 3 ML VIAL INH SCH (16:00)
[2017-02-16] MEDS ORDERED: FAMOTIDINE IV INJ 20 MG in DEXTROSE 5% 100ML 100 ML IV ONE (16:00)
[2017-02-16] MEDS: INSULIN ASPART 100 UNITS/ML 3 ML PEN SC SCH ×2 (16:30→21:00)
[2017-02-16] MEDS ORDERED: PANTOprazole INJ 40 MG in SYRINGE 0 ML IV ONE (16:30)
--- NOTE | 2017-02-16 17:07 | DIAGNOSTIC IMAGING REPORT ---
ULTRASOUND RIGHT UPPER QUADRANT ABDOMEN CLINICAL HISTORY: Right upper quadrant abdominal pain. COMPARISON STUDY: Abdominal CT dated 02/16/2017. TECHNIQUE: Real-time, grayscale, and color flow sonography of the right upper quadrant of the abdomen was performed. Images are reviewed in the transverse and longitudinal planes. FINDINGS: Liver: The liver is normal in size and echotexture. There is no intrahepatic biliary ductal dilatation. The main portal vein is patent. Gallbladder: The gallbladder is normal in appearance. No gallstones are identified. There is no gallbladder wall thickening or pericholecystic fluid. A sonographic Mcrae's sign is reportedly absent. The common bile duct measures up to 0.3 cm in diameter. Pancreas: Visualized portions of the pancreatic head and body are normal in appearance. Right kidney: Survey images of the right kidney demonstrate cortical atrophy and increased echotexture consistent with medical renal disease. There is no hydronephrosis. Ascites: None. IMPRESSION: No acute sonographic abnormality is seen in the right upper quadrant. No gallstones are identified. Electronically signed by: Antonio Astorga M.D. 02/16/2017 5:05 PM Dictated Date/Time: 02/16/2017 5:03 PM
[2017-02-16] MEDS: METHYLPREDNISOLONE IV 80 MG in SYRINGE 0 ML IV SCH (18:00)
[2017-02-16] MEDS: ATORVASTATIN 40 MG TAB PO SCH (21:00)
[2017-02-16] MEDS: EZETIMIBE 10MG TAB PO SCH (21:00)
[2017-02-16] MEDS: ASPIRIN 81 MG ECTAB PO SCH (21:00)
[2017-02-16] MEDS: CARVEDILOL 25 MG TAB PO SCH (21:00)
[2017-02-16] MEDS: AMLODIPINE BESYLATE 5 MG TAB PO SCH (21:00)
[2017-02-16] MEDS ORDERED: NURSING VERBAL MED ORDER SCH (21:00)
[2017-02-16] MEDS: POTASSIUM CHLORIDE 10 MEQ TABCR PO SCH (21:00)
[2017-02-16] MEDS: HEPARIN SOD 5000 UNIT/0.5 ML CARP SQ SCH (21:00)
[2017-02-16] MEDS: NSS + 20MEQ KCL 1000ML 1,000 ML IV SCH (21:50)
[2017-02-16] MEDS: PIPERACILL/TAZOBAC IV 3.375 GM in DEXTROSE 5% 100ML IV SCH (21:50)
[2017-02-17] VITALS (14 sets, daily range): BP systolic 110–146; BP diastolic 61–78; PULSE 73–99; TEMP 36.6–37.3; O2SAT 90–98
[2017-02-17] MEDS: IPRATROPIUM BROMIDE NEB SOLN 0.02% 2.5 ML VIAL INH SCH ×4 (01:54→20:39)
[2017-02-17] MEDS: LEVALBUTEROL 1.25MG/0.5ML NEB INH SCH ×4 (01:55→20:39)
[2017-02-17] MEDS: METHYLPREDNISOLONE IV 80 MG in SYRINGE 0 ML IV SCH (03:08)
[2017-02-17] MEDS: FAMOTIDINE IV INJ 20 MG in DEXTROSE 5% 100ML 100 ML IV SCH ×2 (03:08→17:59)
--- NOTE | 2017-02-17 03:48 | CARDIOLOGY CONSULTATION ---
DATE OF CONSULTATION: 02/16/2017 REFERRING PHYSICIAN: Arcenio Rm MD CHIEF COMPLAINT: Shortness of breath. HISTORY OF PRESENT ILLNESS: Mrs. Bisi Jameson is a 71-year-old woman with an extensive history of cardiac disease to include both an ischemic cardiomyopathy and congestive heart failure, who was in her usual state of health until last evening. The patient states that chest began to feel poorly last evening with some abdominal complaints and proceeded to her bathroom. In the bathroom, she started to feel dizzy and lightheaded and had a syncopal episode. The patient subsequently woke up and had severe nausea and vomiting. The patient had several episodes of emeses and eventually proceeded to [facility] for an additional evaluation. Leading up to her event, she is not aware of any particular palpitations or rapid heartbeats, she denies significant breathing difficulty. In the days leading up to this event, she did not report feeling more short of breath. She has been able to perform her usual activities which include light housework, shopping, gardening and walking without limiting dyspnea. She has not had any symptoms of chest discomfort during this entire episode. The patient denies any sick contacts. She denies any fevers or chills. She has not had a productive cough. PAST MEDICAL HISTORY: 1. Significant for the aforementioned coronary artery disease. The patient had an inferior myocardial infarction in 1999 and catheterization at that time revealed her to have a 99% circumflex lesion that could not be successfully opened. 2. Ischemic cardiomyopathy. The patient has ejection fraction around 35%. 3. Implantation of biventricular ICD in 2011 without notable improvement in symptoms or ejection fraction. 4. Peripheral vascular disease. The patient has lower extremity peripheral vascular disease and has previously undergone popliteal and SFA angioplasties as well as a right iliofemoral endarterectomy in 2012. 5. Carotid artery stenosis. The patient is status post left CEA and most recent carotid ultrasound reveals good flow in both arteries. 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 6. Valvular heart disease, [id number] mitral regurgitation and moderate aortic regurgitation. 7. Tobacco abuse. 8. Depression. 9. Hyperlipidemia. 10. Hypertension. 11. COPD. 12. Restless leg syndrome. 13. Diabetes mellitus. PAST SURGICAL HISTORY: Includes the aforementioned vascular endarterectomies as well as implantation of a biventricular ICD, carpal tunnel release, total abdominal hysterectomy. FAMILY HISTORY: Significant for diabetes. 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 She is a current smoker but denies significant alcohol use. OUTPATIENT MEDICATIONS: Advair Diskus, aspirin, amlodipine, carvedilol, clopidogrel, Zetia, furosemide, lisinopril, metformin, potassium supplementation, pramipexole, sertraline and Ventolin on a p.r.n. basis. MEDICAL ALLERGIES: SULFA ANTIBIOTICS. REVIEW OF SYSTEMS: A complete 10-system review of systems was performed and the pertinent positives noted in the history of present illness. The remainder being negative. PHYSICAL EXAMINATION: GENERAL: The patient did appear to be somewhat restless and uncomfortable during today's exam, when she was alert and answered all questions appropriately. VITAL SIGNS: Blood pressure 161/73 with a pulse of 100. HEENT: Her sclerae are anicteric. Pupils are equal and reactive to light and accommodation. Extraocular movements were intact. Palpation of submandibular region did not reveal any significant lymphadenopathy. The carotids are palpable bilaterally. I do not appreciate any bruits on auscultation. There was a left sided endarterectomy scar. Thyroid is not enlarged. LUNGS: Auscultation of both lung english reveal them to be clear. I do not appreciate any rales, wheeze or rhonchi. She had normal respiratory effort without use of accessory muscles. CARDIAC: Revealed her to be in a regular rhythm. There was holosystolic murmur appreciated. S1 and S2 otherwise appeared normal. PMI was not markedly displaced. She had a well healed ICD pocket in the left upper chest without signs of erythema or swelling. EXTREMITIES: Evaluation of her lower extremities did not reveal any significant peripheral edema. She had palpable radial pulses bilaterally. I do not appreciate any cyanosis or clubbing on exam. LABORATORY STUDIES: Obtained since admission include a white cell count of 8.2, hemoglobin of 13.3, platelet count of 204. Sodium was 135, potassium was 4.0, BUN was 22, creatinine was 0.8. N-terminal ProBNP was 6603. Imaging studies were obtained at the time of admission which included a chest x-ray demonstrating mild congestive changes. CT of the chest, abdomen and pelvic which revealed only nephrolithiasis. Abdominal ultrasound was also performed which was unrevealing. The patient had a 12-lead EKG obtained at the time of admission which revealed her to be in sinus rhythm with paced ventricular rhythm. There were occasional atrial pacing. ASSESSMENT AND PLAN: 1. Hypoxia: The patient certainly is at risk for decompensated congestive heart failure. There were some objective findings suggestive of pulmonary vascular congestion to include elevated N-terminal pro B-type natriuretic peptide and x-ray findings. On exam, her lungs do not sound congested; however, she did receive Lasix earlier today. I think it would be reasonable to continue attempts at diuresis given her history; however, I doubt that this accounts entirely for her degree of hypoxia. The patient is also being treated for primary pulmonary process. 2. Coronary artery disease. The patient did not manifest symptoms consistent with angina or coronary insufficiency. At this point, I would simply continue her outpatient medical regimen for secondary prevention, which includes Zetia and antiplatelet agents. 3. Syncope. The patient's episode of syncope is likely related to increased vagal tone given the abdominal complaints. It did not appear to be any arrhythmia recorded on her device that would have account for this episode. She has not a risk of significant maria r arrhythmias due to presence of her implantable cardioverter defibrillator. 4. Nausea and vomiting. This is likely an acute gastritis of some variety. She does have known mesenteric stenosis; however, this would be an unusual presentation and she does not report symptoms of intestinal angina and has not had any notable blood in her stool to suggest bowel ischemia. PLAN AND RECOMMENDATIONS: 1. Continue outpatient medical regimen to include Zetia, aspirin, carvedilol and lisinopril. 2. Continue mild diuresis with intravenous and/or oral Lasix, monitoring her outputs and assessing her volume status. 3. Supplemental oxygen as required. 4. We will continue to follow this patient during her hospitalization and determine whether she will stay on the schedule for an ICD generator change later this week. VITOR
[2017-02-17] MEDS: PIPERACILL/TAZOBAC IV 3.375 GM in DEXTROSE 5% 100ML IV SCH ×3 (06:02→22:00)
[2017-02-17 08:10] LABS: BUN/CREATININE RATIO 16.4 (10-20); CALCIUM 8.4 mg/dl (8.5-10.1); CREATININE 0.8 mg/dl (0.60-1.20); MAGNESIUM 2.2 mg/dl (1.8-2.4); PHOSPHORUS 3.6 mg/dl (2.5-4.9); POTASSIUM 4.2 mmol/L (3.5-5.1)
--- NOTE | 2017-02-17 08:52 | PULMONARY PROGRESS NOTE ---
DATE: 02/17/2017 TIME: 7:20 a.m. SUBJECTIVE: The patient has developed a significant increase in her cough. Thus far, it is nonproductive. She is definitely feeling more congested in the chest. She did sleep well and she states she had not been sleeping well for the past 2-3 weeks. She is not having any chest pain. She is not complaining of shortness of breath, although she has not been out of bed at all this morning. She has not had any syncope or near syncope since admission. Her nausea that she had yesterday and was so severe has resolved. OBJECTIVE: GENERAL: The patient appeared comfortable. She was coughing periodically during the exam. VITAL SIGNS: Maximum temperature since admission is 37.3 and the most recent temperature is 36.8. Heart rate is 77 per minute. Blood pressure is 110/64.Oxygen saturation on 4 liters is 97%. NECK: Palpation of the neck reveals no lymph nodes. The neck veins were not distended. HEART: The rhythm is regular. LUNGS: Auscultation of the lung english reveals prominent rhonchi bilaterally posteriorly in the lower lung english. ABDOMEN: Soft. Bowel sounds were present and were normal. There was no tenderness to palpation. EXTREMITIES: Showed no cyanosis, clubbing or edema. LABORATORY DATA: No lab results are back thus far. Her chemistry study from yesterday is pending. Ultrasound of the abdomen yesterday was negative. ASSESSMENT: 1. Bibasilar lung infiltrates -- suspect pneumonia -- rule out aspiration. 2. Chronic obstructive pulmonary disease with exacerbation. 3. Multiple right lower lobe nodules. 4. Coronary artery disease with congestive heart failure. COMMENTS AND RECOMMENDATIONS: As noted yesterday, the patient's abdominal CAT scan and chest CT were both done [address] which was done later on showed airspace opacities at both lung bases that were not seen on the abdominal CAT scan 2 hours earlier. Thus, I suspect she is developing pneumonia. She is on Zosyn and Zithromax. She actually is more congested in the chest today which is probably related to an infection. We will order a sputum culture. We will also check a urine legionella antigen. I am going to decrease her methylprednisolone down to 40 mg IV q. [address] Samuel will be seeing the patient from pulmonary division as of tomorrow.
[2017-02-17] MEDS: NSS + 20MEQ KCL 1000ML 1,000 ML IV SCH ×2 (08:58→17:58)
[2017-02-17] MEDS ORDERED: PANTOprazole SOD 40 MG TAB PO SCH (09:00)
[2017-02-17] MEDS ORDERED: FUROSEMIDE INJ 40 MG in SYRINGE 0 ML IV SCH (09:00)
[2017-02-17] MEDS: NICOTINE 7 MG/24 HR TDSY TD SCH (09:00)
[2017-02-17] MEDS ORDERED: FUROSEMIDE 20 MG TAB PO SCH (09:00)
[2017-02-17] MEDS: METHYLPREDNISOLONE IV 40 MG in SYRINGE 0 ML IV SCH ×2 (09:01→17:58)
[2017-02-17] MEDS: CARVEDILOL 25 MG TAB PO SCH ×2 (09:05→21:43)
[2017-02-17] MEDS: INSULIN ASPART 100 UNITS/ML 3 ML PEN SC SCH ×4 (09:05→21:00)
[2017-02-17] MEDS: OMEGA-3 (PURIFIED FISH OIL) 1 GM CAP PO SCH (09:06)
[2017-02-17] MEDS: AZITHROMYCIN 250 MG TAB PO SCH (09:07)
[2017-02-17] MEDS: LISINOPRIL 40 MG TAB PO SCH (09:07)
[2017-02-17] MEDS: SERTRALINE HCL 50 MG TAB PO SCH (09:07)
[2017-02-17] MEDS: PANTOprazole SOD 40 MG TAB PO SCH (09:07)
[2017-02-17] MEDS: CLOPIDOGREL BISULFATE 75 MG TAB PO SCH (09:07)
[2017-02-17] MEDS: POTASSIUM CHLORIDE 10 MEQ TABCR PO SCH ×2 (09:08→21:44)
[2017-02-17] MEDS: HEPARIN SOD 5000 UNIT/0.5 ML CARP SQ SCH ×2 (09:09→21:22)
[2017-02-17] MEDS: ONDANSETRON INJ 2 MG/ML 2 ML VIAL IV PRN (10:52)
--- NOTE | 2017-02-17 11:10 | ECHOCARDIOGRAM REPORT ---
*NOTICE TO RECEIVING [employer] This information is strictly Confidential and protected under [place] law. [place] law prohibits you from making any further disclosure of this information unless further disclosure is expressly permitted by the written consent of the person to whom it pertains or is authorized by law. A general authorization for the release of medical or other information is not sufficient for this purpose. Hospital accepts no responsibility if the information is made available to any other person, INCLUDING THE PATIENT. Interpretation Summary * Name: CHARO EAGLE Study Date: 02/17/2017 08:58 AM BP: 145/78 mmHg * Patient Location: [facility]\S\N278\S\1 HR: 82 * : 1945 (M/d/yyyy) Gender: Female Height: 62 in * Age: 71 yrs Ethnicity: [place] Weight: 113 lb * Ordering Physician: Arcenio Rm * Referring Physician: Self, Referred * Performed By: Briseyda Arellano RDCS * * Reason For Study: CHF * BSA: 1.5 m2 * -- Conclusions -- * The left ventricle is moderately dilated. * Left ventricular systolic function is severely reduced. * There are regional wall motion abnormalities as specified. * The right ventricular systolic function is mildly reduced. * The left atrium is severely dilated. * The right atrium is moderately dilated. * Mild to moderate aortic regurgitation. * There is severe mitral regurgitation. * Right ventricular systolic pressure is elevated at 30-40mmHg. * Compared to an echocardiogram performed in 11/2016, there is no significant change Procedure Details * A complete two-dimensional transthoracic echocardiogram was performed (2D, M-mode, Doppler and color flow Doppler). Left Ventricle * The left ventricle is moderately dilated. * There is normal left ventricular wall thickness. * Ejection Fraction = 25-30%. * Left ventricular systolic function is severely reduced. * There are regional wall motion abnormalities as specified. * Lateral wall and apex are akinetic. Basal portions of the anterior and inferior borges are moderately hypokinetic. Right Ventricle * The right ventricle is normal size. * There is a pacemaker lead in the right ventricle. * The right ventricular systolic function is mildly reduced. Atria * The left atrium is severely dilated. * The right atrium is moderately dilated. * There is a catheter/pacemaker lead seen in the right atrium. Mitral Valve * The mitral valve is grossly normal. * There is severe mitral regurgitation. Tricuspid Valve * The tricuspid valve is not well visualized, but is grossly normal. * There is mild tricuspid regurgitation. * Right ventricular systolic pressure is elevated at 30-40mmHg. Aortic Valve * The aortic valve is trileaflet. * No hemodynamically significant valvular aortic stenosis. * Mild to moderate aortic regurgitation. Great Vessels * The aortic root is normal size. * The inferior vena cava is mildly dilated. MMode 2D Measurements and Calculations IVSd 0.85 cm IVSs 1.2 cm LVIDd 5.6 cm LVIDs 4.9 cm LVPWd 1.2 cm LVPWs 1.7 cm IVS/LVPW 0.72 FS 12.5 % EDV(Teich) 152.0 ml ESV(Teich) 111.7 ml EF(Teich) 26.5 % EDV(cubed) 173.1 ml ESV(cubed) 116.1 ml EF(cubed) 32.9 % % IVS thick 41.4 % % LVPW thick 43.8 % LV mass(C)d 221.6 grams LV mass(C)dI 147.8 grams/m\S\2 LV mass(C)s 294.4 grams LV mass(C)sI 196.3 grams/m\S\2 SV(Teich) 40.3 ml SI(Teich) 26.9 ml/m\S\2 SV(cubed) 57.0 ml SI(cubed) 38.0 ml/m\S\2 Ao root diam 2.8 cm Ao root area 6.1 cm\S\2 LA dimension 5.6 cm LA/Ao 2.0 LVAd ap4 41.8 cm\S\2 LVLd ap4 9.7 cm EDV(MOD-sp4) 155.0 ml LVAs ap4 34.6 cm\S\2 LVLs ap4 9.4 cm ESV(MOD-sp4) 109.0 ml EF(MOD-sp4) 29.7 % LVAd ap2 48.8 cm\S\2 LVLd ap2 10.5 cm EDV(MOD-sp2) 196.0 ml LVAs ap2 40.7 cm\S\2 LVLs ap2 9.7 cm ESV(MOD-sp2) 146.0 ml EF(MOD-sp2) 25.5 % SV(MOD-sp4) 46.0 ml SI(MOD-sp4) 30.7 ml/m\S\2 SV(MOD-sp2) 50.0 ml SI(MOD-sp2) 33.3 ml/m\S\2 Doppler Measurements and Calculations MV E max nohemy 165.1 cm/sec MV A max nohemy 136.7 cm/sec MV E/A 1.2 MV dec time 0.18 sec Ao V2 max 143.6 cm/sec Ao max PG 8.2 mmHg Ao max PG (full) 6.4 mmHg AI max nohemy 365.5 cm/sec AI max PG 53.5 mmHg AI dec slope 324.9 cm/sec\S\2 AI P1/2t 329.5 msec LV V1 max PG 1.8 mmHg LV V1 max 67.9 cm/sec MR max nohemy 538.0 cm/sec MR max PG 115.8 mmHg MR mean nohemy 414.2 cm/sec MR mean PG 75.2 mmHg MR VTI 186.7 cm TR max nohemy 286.7 cm/sec
--- NOTE | 2017-02-17 11:25 | Gastrointestinal Consultation ---
Gastrointestinal Consultation Date of Consultation: February 17, 2017 History of Present Illness Patient is a 71 year old female who below past medical hx, but significant for vascular disease including CAD ischemic cardiomyopathy with ICD in place, COPD, who presents with one day hx of nausea and wretching. She apparently started to become nauseated on Saturday yaa, dry heaving with one to two episodes of emesis prior to arrival without evidence of blood and also had a syncopal episode. This was the reason she presented to the ER, however, it was noted she was hypoxic and had evidence of likely pulmonary edema and ? infiltrate vs COPD exaberation after workup which included imaging as below. She was admitted, given IV steroids, abx, and diuresis and feels improved today and has no complaints of nausea, gerd, abdominal discomfort. No hx of GI issues , no hx of obstructions. CT of chest IMPRESSION: 1. No evidence for pulmonary embolus. 2. Progressive diffuse interstitial thickening likely representing interstitial pulmonary edema. 3. There are also progressive nodular densities within the periphery of the lung bases and progressive airspace opacities within the bilateral lower lobes posteriorly. This could also be due to alveolar pulmonary edema. However, an atypical pneumonia could also have a similar appearance. [address] follow-up is recommended to ensure resolution. 4. Emphysema. CT abdomen IMPRESSION: 1. No bowel wall thickening or obstruction. 2. Normal appendix. 3. Bilateral nephrolithiasis. No hydronephrosis. 4. Mild periportal edema. 5. Cardiomegaly with mild interstitial thickening at the lung bases. This favors mild pulmonary edema. 6. A 7 mm ground-glass nodule within the right lower lobe. Please refer to the chart below for recommended follow-up. 7. Pancreas divisum. 8. Additional findings are described above. Past Medical/Surgical History Medical Problems: (1) Acute asthma exacerbation Status: Acute (2) Acute bronchitis Status: Acute (3) CHF (congestive heart failure) Status: Acute (4) Hypoxia Status: Acute (5) Nausea Status: Acute (6) Respiratory distress Status: Acute (7) Syncope Status: Acute Family History Patient reports no known family medical history. Social History Smoking Status: Current Every Day Smoker Drug Use: none Marital Status: Housing Status: lives with family Occupation Status: retired Allergies Coded Allergies: Sulfa Antibiotics (Verified Allergy, Intermediate, RASH, 02/16/17) Current Medications Home Meds and Scripts Medications Dose Route/Sig Max Daily Dose Days Date Category [place]-3 (Fish Oil) 1 Ea Cap 1 Cap PO DAILY 03/15/16 Reported Ventolin Inhaler (Albuterol) Aers 2 Puffs INH Q4-6H 05/07/13 Reported Lipitor (Atorvastatin Calcium) 80 Mg Tab 80 Mg PO HS 05/07/13 Reported Advair Diskus 500/50 60 Dose (Fluticasone Prop/Salmeterol) 1 Ea Aerp 1 Puff INH BID 05/07/13 Reported Norvasc (Amlodipine Besylate) 5 Mg Tab 7.5 Mg PO QPM 05/07/13 Reported Aspirin Chewable (Aspirin) 81 Mg Chew 81 Mg PO QPM 05/07/13 Reported Coreg (Carvedilol) 25 Mg Tab 25 Mg PO BID 04/30/12 Reported Micro-K Ext Rel (Potassium Chloride) 10 Meq Tab 10 Meq PO BID 02/21/12 Reported Lasix (Furosemide) 20 Mg Tab 40 Mg PO QAM 02/21/12 Reported Zoloft (Sertraline HCl) 50 Mg Tab 50 Mg PO QAM 02/21/12 Reported Plavix (Clopidogrel Bisulfate) 75 Mg Tab 75 Mg PO QAM 02/21/12 Reported Zetia (Ezetimibe) 10 Mg Tab 10 Mg PO HS 02/21/12 Reported Zestril (Lisinopril) 40 Mg Tab 40 Mg PO QAM 02/21/12 Reported Glucophage (Metformin Hcl) 500 Mg Tab 500 Mg PO BID 02/21/12 Reported Physical Exam Date Time Temp Pulse Resp B/P Pulse Ox O2 Delivery O2 Flow Rate FiO2 02/17/17 07:38 36.6 73 18 145/78 98 Nasal Cannula 4.0 02/17/17 06:55 76 18 97 Nasal Cannula 4.0 02/17/17 04:59 36.8 73 18 110/64 97 Nasal Cannula 4.0 Humidified Oxygen 02/17/17 04:00 96 Nasal Cannula 4.0 Humidified Oxygen 02/17/17 00:00 96 Nasal Cannula 4.0 Humidified Oxygen 02/16/17 23:55 36.9 83 18 103/49 96 Nasal Cannula 4.0 Humidified Oxygen 02/16/17 20:03 87 18 94 Nasal Cannula 4.0 02/16/17 20:00 96 Nasal Cannula 4.0 Humidified Oxygen 02/16/17 19:37 37.3 94 20 146/68 96 Nasal Cannula 4.0 Humidified Oxygen 02/16/17 16:00 95 Nasal Cannula 6.0 02/16/17 15:05 36.9 100 20 161/73 95 6.0 02/16/17 14:44 103 18 94 Nasal Cannula 6.0 02/16/17 14:03 36.9 98 24 151/63 90 Nasal Cannula 4.0 02/16/17 12:43 105 24 90 02/16/17 12:38 100 26 90 02/16/17 12:33 100 26 87 02/16/17 12:23 97 27 89 02/16/17 12:18 100 21 90 02/16/17 12:13 98 21 89 02/16/17 12:08 99 27 89 02/16/17 12:03 100 27 89 02/16/17 12:00 151/63 02/16/17 11:58 101 28 91 02/16/17 11:53 100 28 88 02/16/17 11:48 99 27 88 02/16/17 11:43 99 27 89 02/16/17 11:38 102 29 91 02/16/17 11:33 99 27 89 02/16/17 11:30 152/68 02/16/17 11:28 98 26 89 02/16/17 11:08 97 25 93 General Appearance: WD/WN, + moderate distress ENT: normal ENT inspection Neck: supple Respiratory/Chest: + pertinent finding (rhonchi and rhales diffusely, diminshed bs at bases) Cardiovascular: regular rate, rhythm, + JVD Abdomen: normal bowel sounds, non tender, soft Laboratory Results Last 24 Hours Test 02/16/17 14:15 02/16/17 20:29 02/17/17 07:06 02/17/17 07:55 Arterial Blood pH 7.41 Arterial Blood Partial Pressure CO2 39 mmHg Arterial Blood Partial Pressure O2 68 mm/Hg Arterial Blood HCO3 24 mmol/L Arterial Blood Oxygen Saturation 91.7 % Arterial Blood Base Excess -0.5 mEq/L Arterial Blood Gas Delivery 6L Simba Test POS Bedside Glucose 137 mg/dl 150 mg/dl Sodium Level 140 mmol/L Potassium Level 4.2 mmol/L Chloride Level 105 mmol/L Carbon Dioxide Level 29 mmol/L Anion Gap 6.0 mmol/L Blood Urea Nitrogen 13 mg/dl Creatinine 0.80 mg/dl Est Creatinine Clear Calc Drug Dose 50.3 ml/min Estimated GFR () 85.4 Estimated GFR (Non- 73.7 BUN/Creatinine Ratio 16.4 Random Glucose 152 mg/dl Calcium Level 8.4 mg/dl Phosphorus Level 3.6 mg/dl Magnesium Level 2.2 mg/dl Impression Patient is a 71 year old female with ischemic cardiomyopathy and intrinsic lung disease presenting with n/v, syncope, and pulmonary infiltrates Plan She is not exhibiting any signs/symptoms of GI issues at this time. No nausea and likely secondary to other health conditions. No signs of obstruction Recs treat underlying medical issues relating to heart and lungs symptomatic nausea control monitor electrolytes PPI daily for stress ulcer prophylaxis Call with any questions but in light of no current GI issues will sign off
[2017-02-17] MEDS ORDERED: PROMETHAZINE HCL INJ 12.5 MG in SODIUM CHLORIDE 0.9% 50ML 50 ML IV PRN (13:30)
[2017-02-17] MEDS ORDERED: NURSING VERBAL MED ORDER ONE ×2 (13:30→17:00)
[2017-02-17] MEDS ORDERED: LORAZEPAM 2 MG/ML 1 ML VIAL IV PRN (17:15)
[2017-02-17] MEDS: LORAZEPAM INJ 0.5 MG in SYRINGE 0.75 ML IV PRN ×2 (17:54→21:42)
--- NOTE | 2017-02-17 18:39 | Family Medicine Progress Note ---
Progress Note Date of Service February 17, 2017. Subjective Pt evaluation today including: conversation w/ patient, physical exam, chart review, lab review, review of studies Pain: No pain reported this morning Voiding: no voiding problems Patient is resting comfortably in bed this morning with no acute complaints. She states that she is no longer experiencing any nausea, vomiting or abdominal discomfort. Her only complaint this morning is that she is fatigued and wants to sleep. Constitutional: + fatigue, No chills, No fever, No sweats Respiratory: No cough, No shortness of breath, No sputum, No wheezing Cardiovascular: No chest pain, No edema Abdomen: No constipation, No diarrhea, No nausea, No pain, No vomiting Musculoskeletal: No joint pain, No muscle pain Female : No dysuria Medications Current Inpatient Medications Medications (Trade) Dose Ordered Sig/Osman[place] Route Start Time Stop Time Status Last Admin Dose Admin Heparin Sodium (Porcine) (Heparin Sq 5000 Unit/0.5ml) 5,000 unit Q12 SQ 02/16/17 21:00 03/18/17 20:59 02/17/17 09:09 5,000 UNIT Acetaminophen (Tylenol Tab) 650 mg Q4H PRN PO 02/16/17 12:15 03/18/17 12:14 02/17/17 15:19 650 MG Al Hydrox/Mg Hydrox/Simethicone (Maalox Max Susp) 15 ml Q4H PRN PO 02/16/17 12:15 03/18/17 12:14 Magnesium Hydroxide (Milk Of Magnesia Susp) 30 ml Q12H PRN PO 02/16/17 12:15 03/18/17 12:14 Ondansetron HCl (Zofran Inj) 4 mg Q6H PRN IV 02/16/17 12:15 03/18/17 12:14 02/17/17 10:52 4 MG Polyethylene (Miralax Powder Packet) 17 gm DAILY PRN PO 02/16/17 12:15 03/18/17 12:14 Amlodipine Besylate (Norvasc Tab) 7.5 mg QPM PO 02/16/17 21:00 03/18/17 20:59 02/16/17 21:00 7.5 MG Aspirin (Ecotrin Tab) 81 mg QPM PO 02/16/17 21:00 03/18/17 20:59 02/16/17 21:00 81 MG Atorvastatin Calcium (Lipitor Tab) 80 mg HS PO 02/16/17 21:00 03/18/17 20:59 02/16/17 21:00 80 MG Carvedilol (Coreg Tab) 25 mg BID PO 02/16/17 21:00 03/18/17 20:59 02/17/17 09:05 25 MG Clopidogrel Bisulfate (plAVix TAB) 75 mg QAM PO 02/17/17 09:00 03/19/17 08:59 02/17/17 09:07 75 MG EZETIMIBE (Zetia Tab) 10 mg HS PO 02/16/17 21:00 03/18/17 20:59 02/16/17 21:00 10 MG Fish Oil ([employer]-3 (Purified Fish Oil) Cap) 1 gm DAILY PO 02/17/17 09:00 03/19/17 08:59 02/17/17 09:06 1 GM Lisinopril (Zestril Tab) 40 mg QAM PO 02/17/17 09:00 03/19/17 08:59 02/17/17 09:07 40 MG Potassium Chloride (Klor-Con M10) 10 meq BID PO 02/16/17 21:00 03/18/17 20:59 02/17/17 09:08 10 MEQ Sertraline HCl (Zoloft Tab) 50 mg QAM PO 02/17/17 09:00 03/19/17 08:59 02/17/17 09:07 50 MG Azithromycin (Zithromax Tab) 250 mg QAM PO 02/17/17 09:00 02/22/17 09:01 02/17/17 09:07 250 MG Pantoprazole Sodium (Protonix Tab) 40 mg QAM PO 02/17/17 09:00 03/19/17 08:59 02/17/17 09:07 40 MG Insulin Aspart SLIDING SCALE G... ACHS SC 02/16/17 16:30 03/18/17 16:29 02/17/17 12:59 1 UNITS Furosemide/Syringe (Lasix Inj/ Syringe) 4 ml @ 4 mls/min DAILY IV 02/17/17 09:00 03/19/17 08:59 02/17/17 09:01 4 MLS/MIN Nicotine (Nicoderm Cq 7 Mg Patch) 1 patch QAM TD 02/17/17 09:00 03/19/17 08:59 Miscellaneous (Remove Nicoderm Patch) 1 ea HS N/A 02/16/17 21:00 03/18/17 20:59 Glucose (Glucose 40% Gel) 15-30 GRAMS 15 GRAMS... UD PRN PO 02/16/17 13:45 03/18/17 13:44 Glucose (Glucose Chew Tab) 4-8 Tablets 4 Tabl... UD PRN PO 02/16/17 13:45 03/18/17 13:44 Dextrose (Dextrose 50% 50ML Syringe) 25-50ML OF 50% DW IV FOR... UD PRN IV 02/16/17 13:45 03/18/17 13:44 Glucagon (Glucagon Inj) 1 mg UD PRN SQ 02/16/17 13:45 03/18/17 13:44 Ipratropium [place] (Atrovent 0.02% 0.5MG/2.5ML Neb) 0.5 mg Q6R INH 02/16/17 15:00 03/18/17 14:59 02/17/17 13:57 0.5 MG Levalbuterol (Xopenex 1.25MG/ 0.5ML Neb) 1.25 mg Q6R INH 02/16/17 15:00 03/18/17 14:59 02/17/17 13:57 1.25 MG Piperacillin Sod/ Tazobactam Sod 1 ea 1 ea UD PRN N/A 02/16/17 14:59 03/18/17 14:58 Piperacillin Sod/ Tazobactam Sod 3.375 gm/Dextrose 115 ml @ 28.75 mls/ hr Q8H IV 02/16/17 22:00 02/23/17 21:59 02/17/17 14:13 28.75 MLS/HR Famotidine 20 mg/ Dextrose 102 ml @ 200 mls/hr Q12H IV 02/17/17 04:00 03/19/17 03:59 02/17/17 03:08 200 MLS/HR Potassium Chloride/Sodium Chloride 1,000 ml @ 100 mls/hr Q10H IV 02/16/17 21:45 03/18/17 21:44 02/17/17 08:58 100 MLS/HR Methylprednisolone Sodium Succinate 40 mg/Syringe 0.64 ml @ 1.5 mls/min Q8H IV 02/17/17 10:00 03/19/17 09:59 02/17/17 09:01 1.5 MLS/MIN Promethazine HCl 12.5 mg/Sodium Chloride 50.5 ml @ 202 mls/hr Q6H PRN IV 02/17/17 13:30 03/19/17 13:29 Lorazepam/Syringe (Ativan Inj/ Syringe) 1 ml @ 1 mls/min Q4H PRN IV 02/17/17 17:15 03/19/17 17:14 Lorazepam (Ativan Inj) 0.5 mg Q4H PRN IV 02/17/17 17:15 03/19/17 17:14 Objective Vital Signs Date Time Temp Pulse Resp B/P Pulse Ox O2 Delivery O2 Flow Rate FiO2 02/17/17 15:34 37.2 95 18 143/68 90 Nasal Cannula 2.0 02/17/17 13:57 86 18 94 Nasal Cannula 2.0 02/17/17 12:43 36.6 74 18 117/61 91 2.0 02/17/17 12:00 98 Nasal Cannula 2.0 02/17/17 08:00 98 Nasal Cannula 2.0 02/17/17 07:38 36.6 73 18 145/78 98 Nasal Cannula 4.0 02/17/17 06:55 76 18 97 Nasal Cannula 4.0 02/17/17 04:59 36.8 73 18 110/64 97 Nasal Cannula 4.0 Humidified Oxygen 02/17/17 04:00 96 Nasal Cannula 4.0 Humidified Oxygen 02/17/17 00:00 96 Nasal Cannula 4.0 Humidified Oxygen 02/16/17 23:55 36.9 83 18 103/49 96 Nasal Cannula 4.0 Humidified Oxygen 02/16/17 20:03 87 18 94 Nasal Cannula 4.0 02/16/17 20:00 96 Nasal Cannula 4.0 Humidified Oxygen 02/16/17 19:37 37.3 94 20 146/68 96 Nasal Cannula 4.0 Humidified Oxygen Physical Exam General Appearance: WD/WN, no apparent distress Eyes: normal inspection, sclerae normal ENT: normal ENT inspection, pharynx normal Neck: supple, no carotid bruits, trachea midline Respiratory/Chest: chest non-tender, lungs clear, normal breath sounds, no respiratory distress, no accessory muscle use Cardiovascular: regular rate, rhythm, no edema, no gallop, no murmur Abdomen: normal bowel sounds, non tender, soft Extremities: normal inspection, no pedal edema, no calf tenderness Neurologic/Psychiatric: alert, normal mood/affect, oriented x 3 Laboratory Results Current Inpatient Medications Medications (Trade) Dose Ordered Sig/Osmani Route Start Time Stop Time Status Last Admin Dose Admin Heparin Sodium (Porcine) (Heparin Sq 5000 Unit/0.5ml) 5,000 unit Q12 SQ 02/16/17 21:00 03/18/17 20:59 02/17/17 09:09 5,000 UNIT Acetaminophen (Tylenol Tab) 650 mg Q4H PRN PO 02/16/17 12:15 03/18/17 12:14 02/17/17 15:19 650 MG Al Hydrox/Mg Hydrox/Simethicone (Maalox Max Susp) 15 ml Q4H PRN PO 02/16/17 12:15 03/18/17 12:14 Magnesium Hydroxide (Milk Of Magnesia Susp) 30 ml Q12H PRN PO 02/16/17 12:15 03/18/17 12:14 Ondansetron HCl (Zofran Inj) 4 mg Q6H PRN IV 02/16/17 12:15 03/18/17 12:14 02/17/17 10:52 4 MG Polyethylene (Miralax Powder Packet) 17 gm DAILY PRN PO 02/16/17 12:15 03/18/17 12:14 Amlodipine Besylate (Norvasc Tab) 7.5 mg QPM PO 02/16/17 21:00 03/18/17 20:59 02/16/17 21:00 7.5 MG Aspirin (Ecotrin Tab) 81 mg QPM PO 02/16/17 21:00 03/18/17 20:59 02/16/17 21:00 81 MG Atorvastatin Calcium (Lipitor Tab) 80 mg HS PO 02/16/17 21:00 03/18/17 20:59 02/16/17 21:00 80 MG Carvedilol (Coreg Tab) 25 mg BID PO 02/16/17 21:00 03/18/17 20:59 02/17/17 09:05 25 MG Clopidogrel Bisulfate (plAVix TAB) 75 mg QAM PO 02/17/17 09:00 03/19/17 08:59 02/17/17 09:07 75 MG EZETIMIBE (Zetia Tab) 10 mg HS PO 02/16/17 21:00 03/18/17 20:59 02/16/17 21:00 10 MG Fish Oil ([employer]-3 (Purified Fish Oil) Cap) 1 gm DAILY PO 02/17/17 09:00 03/19/17 08:59 02/17/17 09:06 1 GM Lisinopril (Zestril Tab) 40 mg QAM PO 02/17/17 09:00 03/19/17 08:59 02/17/17 09:07 40 MG Potassium Chloride (Klor-Con M10) 10 meq BID PO 02/16/17 21:00 03/18/17 20:59 02/17/17 09:08 10 MEQ Sertraline HCl (Zoloft Tab) 50 mg QAM PO 02/17/17 09:00 03/19/17 08:59 02/17/17 09:07 50 MG Azithromycin (Zithromax Tab) 250 mg QAM PO 02/17/17 09:00 02/22/17 09:01 02/17/17 09:07 250 MG Pantoprazole Sodium (Protonix Tab) 40 mg QAM PO 02/17/17 09:00 03/19/17 08:59 02/17/17 09:07 40 MG Insulin Aspart SLIDING SCALE G... ACHS SC 02/16/17 16:30 03/18/17 16:29 02/17/17 12:59 1 UNITS Furosemide/Syringe (Lasix Inj/ Syringe) 4 ml @ 4 mls/min DAILY IV 02/17/17 09:00 03/19/17 08:59 02/17/17 09:01 4 MLS/MIN Nicotine (Nicoderm Cq 7 Mg Patch) 1 patch QAM TD 02/17/17 09:00 03/19/17 08:59 Miscellaneous (Remove Nicoderm Patch) 1 ea HS N/A 02/16/17 21:00 03/18/17 20:59 Glucose (Glucose 40% Gel) 15-30 GRAMS 15 GRAMS... UD PRN PO 02/16/17 13:45 03/18/17 13:44 Glucose (Glucose Chew Tab) 4-8 Tablets 4 Tabl... UD PRN PO 02/16/17 13:45 03/18/17 13:44 Dextrose (Dextrose 50% 50ML Syringe) 25-50ML OF 50% DW IV FOR... UD PRN IV 02/16/17 13:45 03/18/17 13:44 Glucagon (Glucagon Inj) 1 mg UD PRN SQ 02/16/17 13:45 03/18/17 13:44 Ipratropium [place] (Atrovent 0.02% 0.5MG/2.5ML Neb) 0.5 mg Q6R INH 02/16/17 15:00 03/18/17 14:59 02/17/17 13:57 0.5 MG Levalbuterol (Xopenex 1.25MG/ 0.5ML Neb) 1.25 mg Q6R INH 02/16/17 15:00 03/18/17 14:59 02/17/17 13:57 1.25 MG Piperacillin Sod/ Tazobactam Sod 1 ea 1 ea UD PRN N/A 02/16/17 14:59 03/18/17 14:58 Piperacillin Sod/ Tazobactam Sod 3.375 gm/Dextrose 115 ml @ 28.75 mls/ hr Q8H IV 02/16/17 22:00 02/23/17 21:59 02/17/17 14:13 28.75 MLS/HR Famotidine 20 mg/ Dextrose 102 ml @ 200 mls/hr Q12H IV 02/17/17 04:00 03/19/17 03:59 02/17/17 03:08 200 MLS/HR Potassium Chloride/Sodium Chloride 1,000 ml @ 100 mls/hr Q10H IV 02/16/17 21:45 03/18/17 21:44 02/17/17 08:58 100 MLS/HR Methylprednisolone Sodium Succinate 40 mg/Syringe 0.64 ml @ 1.5 mls/min Q8H IV 02/17/17 10:00 03/19/17 09:59 02/17/17 09:01 1.5 MLS/MIN Promethazine HCl 12.5 mg/Sodium Chloride 50.5 ml @ 202 mls/hr Q6H PRN IV 02/17/17 13:30 03/19/17 13:29 Lorazepam/Syringe (Ativan Inj/ Syringe) 1 ml @ 1 mls/min Q4H PRN IV 02/17/17 17:15 03/19/17 17:14 Lorazepam (Ativan Inj) 0.5 mg Q4H PRN IV 02/17/17 17:15 03/19/17 17:14 Assessment and Plan Patient is a 71 year old female with a pmh of DM, CAD, CHF, Pacemaker Placement , HTN, and Asthma that presents with complaints of syncope, nausea, vomiting, and shortness of breath. Acute on chronic hypoxic respiratory failure - Improving - Multiple factors contributing - Aspiration pneumonia, COPD Exacerbation, CHF - CTA - Negative for PE - Diffuse interstitial thickening likely representing interstitial pulmonary edema - Progressive nodular densities within the periphery of the lung bases and progressive airspace opacities within the bilateral lower lobes posteriorly. This could also be due to alveolar pulmonary edema. However , an atypical pneumonia could also have a similar appearance. [address] follow-up is recommended to ensure resolution. - Emphysema - CT Chest - Cardiomegaly with mild interstitial thickening at the lung bases. This favors mild pulmonary edema. - 7 mm ground glass nodule within the right lower lobe Aspiration Pneumonia - Respiratory status improving - Bibasilar lung infiltrates on chest CT (were not seen on prior abdominal CT 2 hours earlier) - Azithromycin Day 2 - Zosyn Day 2 - Currently saturating 98% on 4L NC, not on Oxygen at home - Blood cultures pending COPD Exacerbation - Shortness of breath improving - IV Methylprednisolone - Atrovent - Xopenex Acute on Chronic Biventricular Systolic CHF 2/2 Ischemic Cardiomyopathy - Has Biventricular pacer --> Scheduled Saturday for f/u with Dr. Fernandes - ECHO - LV and RV systolic function reduced - Severe Mitral Regurg - EF 25-30% - Compared to ECHO in 11/23, no significant change - Lasix 40mg IV Daily (can double the dose if needed) - Significant history of vascular disease - Inferior myocardial infarction in 1999 and catheterization showed 99% circumflex lesion that could not be successfully opened. - Ischemic cardiomyopathy - EF < 35%. - Biventricular ICD in 2011 - PAD - History Popliteal and SFA angioplasties and right iliofemoral endarterectomy - Carotid artery stenosis - s/p CEA - Stenosis of Mesenteric and Celiac Arteries Nausea and Vomiting - IV Protonix and Pepcid on admission - Initially resolved but symptoms are frequently recurring - Tried giving Phenergan and Lorazepam to calm symptoms - Pepcid IV currently - Abdominal symptoms continued to persist so ordered Troponin that came back at 0.121 (yesterday Trop was 0.017) - Discussed with Dr. Vidales and based on length of symptoms and cardiac enzyme values he does not believe these symptoms are atypical ischemic presentation - Abdominal US: No acute sonographic abnormality is seen in the right upper quadrant. No gallstones are identified. Syncope - Awaiting Pacer interrogation by Dr. Vidales, but initial interrogation in the ED showed no abnormalities - No episodes of syncope during hospitalization Diabetes Mellitus - Sliding Scale Insulin - On Metformin at home - HbA1c Pending UTI - Urine culture grew E.Coli - Await final cultures - Currently on broad spectrum antibiotics - No WBC in UA so very possibly a contaminant Hypertension - Lisinopril 40mg qAM - Lasix Drip - 40mg Daily - Klor-Con 10 meq BID - Norvasc 7.5mg qPM - Coreg 25mg BID Hyperlipidemia - Lipitor 80mg HS PO - Ezetimibe 10mg HS Nicotine Abuse - Nicotine Patch DVT Prophylaxis - Heparin 5,000 units Code Status - Full Resuscitation Reviewed: Pt Seen/Exam by Me History Resident Physician 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 Discussed with Dr. Giang and agree with findings and plan as documented in the note. Any exceptions or clarifications are listed here: Patient still feeling severely nauseated like she is about to vomit as I'm seeing her. No chest pain, remains on nasal cannula but is weaned down to 2 L. Stat troponin and ECG were ordered and troponin is slightly elevated from previous. ECG shows paced rhythm with no definite ischemic changes. Telemetry with paced rhythm, vitals reviewed Mild distress with nausea, alert awake oriented 3 Sclera anicteric Oropharynx with very dry mucous membranes and dry lips Regular rate and rhythm, 2/6 systolic murmur at the left lower sternal border Lungs with decreased breath sounds at the bases, otherwise clear to auscultation bilaterally, breathing unlabored Abdomen positive bowel sounds soft nontender nondistended Extremities no edema 71-year-old female with multiple medical issues and significant vascular disease with ischemic cardiomyopathy and severe mitral valve regurgitation, presents with nausea and vomiting likely secondary to viral gastroenteritis. She also presented with likely vasovagal syncope secondary to nausea. Her nausea and vomiting also have led to an aspiration pneumonitis. -Continue Zosyn for aspiration pneumonia and azithromycin to cover for atypicals -Wean supplemental oxygen as needed -Antiemetics and will add IV lorazepam as needed for nausea as well -Received 1 dose of IV Lasix this morning but I feel she is clinically dry due to her persistent nausea and vomiting-will hold off on any further diuresis at this time -Hold on supplemental potassium while Lasix is on hold as well -Appreciate cardiology and pulmonology consultations Documented By: Violette Barahona
[2017-02-17] MEDS: ASPIRIN 81 MG ECTAB PO SCH (21:00)
[2017-02-17] MEDS: AMLODIPINE BESYLATE 5 MG TAB PO SCH (21:42)
[2017-02-17] MEDS: ATORVASTATIN 40 MG TAB PO SCH (21:43)
[2017-02-17] MEDS: EZETIMIBE 10MG TAB PO SCH (21:45)
[2017-02-18] VITALS (14 sets, daily range): BP systolic 90–136; BP diastolic 39–71; PULSE 75–90; TEMP 36.5–36.9; O2SAT 93–98
[2017-02-18] MEDS: METHYLPREDNISOLONE IV 40 MG in SYRINGE 0 ML IV SCH ×2 (02:00→08:20)
[2017-02-18] MEDS: LEVALBUTEROL 1.25MG/0.5ML NEB INH SCH ×2 (02:29→07:04)
[2017-02-18] MEDS: IPRATROPIUM BROMIDE NEB SOLN 0.02% 2.5 ML VIAL INH SCH ×2 (02:29→07:04)
[2017-02-18] MEDS: NSS + 20MEQ KCL 1000ML 1,000 ML IV SCH (03:45)
[2017-02-18] MEDS: PIPERACILL/TAZOBAC IV 3.375 GM in DEXTROSE 5% 100ML IV SCH ×3 (05:37→21:48)
[2017-02-18 06:22] LABS: ESTIMATED AVERAGE GLUCOSE 131 mg/dl; HA1C FLAG Normal (Normal)
[2017-02-18 06:50] LABS: COMPLETE YES; HEMATOCRIT 32.1 % (37-47); IG% 0.4 %; LYMPH ABS # 0.61 K/uL (1.2-3.4); MEAN CORPUSCULAR HEMOGLOBIN 31.3 pg (25-34); MEAN CORPUSCULAR HGB CONC 33.6 g/dl (32-36); MONO % 3.6 %; PLATELET COUNT 151 K/uL (130-400); RED BLOOD COUNT 3.45 M/uL (4.2-5.4)
[2017-02-18 07:21] LABS: BUN/CREATININE RATIO 19.7 (10-20); CALCIUM 8.1 mg/dl (8.5-10.1); CREATININE 0.84 mg/dl (0.60-1.20); MAGNESIUM 2.1 mg/dl (1.8-2.4)
--- NOTE | 2017-02-18 08:05 | Family Medicine Progress Note ---
Progress Note Date of Service February 18, 2017. Subjective Pt evaluation today including: conversation w/ patient, physical exam, chart review, lab review Patient sleeping comfortably in bed until awoken by me. Denies acute overnight events. Says that she is still feeling weak and fatigued, but otherwise denies pain, SOB (at rest), CP, or palpitations. Says she does not use oxygen at home, but feels a little breathless upon moving around in hospital, and is finding the oxygen necessary. She otherwise states that her nausea and dyspepsia has improved. However, her appetite remains diminished. She is sleeping without issue. Constitutional: No chills, No fever Respiratory: + dyspnea on exertion, No cough, No shortness of breath, No wheezing Cardiovascular: No chest pain, No edema, No palpitations Abdomen: + constipation, No GI bleeding, No diarrhea, No nausea, No pain, No vomiting Female : No dysuria, No hematuria Objective Vital Signs Date Time Temp Pulse Resp B/P Pulse Ox O2 Delivery O2 Flow Rate FiO2 02/18/17 07:17 36.7 90 20 119/63 93 Nasal Cannula 4.0 02/18/17 07:04 89 18 93 Nasal Cannula 2.0 02/18/17 04:25 36.5 79 20 133/70 98 Nasal Cannula 5.0 02/18/17 04:00 94 Room Air 5.0 02/18/17 00:15 130/58 02/18/17 00:00 36.9 90 20 90/39 94 Nasal Cannula 5.0 02/18/17 00:00 94 Room Air 5.0 02/17/17 20:00 94 Room Air 5.0 02/17/17 19:19 37.3 99 18 146/71 90 Room Air 02/17/17 19:10 86 18 94 Nasal Cannula 2.0 02/17/17 16:00 98 Nasal Cannula 2.0 02/17/17 15:34 37.2 95 18 143/68 90 Nasal Cannula 2.0 02/17/17 13:57 86 18 94 Nasal Cannula 2.0 02/17/17 12:43 36.6 74 18 117/61 91 2.0 02/17/17 12:00 98 Nasal Cannula 2.0 Physical Exam General Appearance: WD/WN, no apparent distress ENT: hearing grossly normal Neck: supple Respiratory/Chest: no respiratory distress, no accessory muscle use, + decreased breath sounds (poor air movement at bases) Cardiovascular: regular rate, rhythm, no murmur Abdomen: normal bowel sounds, non tender, soft Extremities: normal inspection, no pedal edema, no calf tenderness Neurologic/Psychiatric: alert, normal mood/affect, oriented x 3 Skin: normal color, warm/dry, no rash Laboratory Results Results Past 24 Hours Test 02/17/17 22:50 02/18/17 06:32 02/18/17 07:39 02/18/17 11:47 Range/Units Troponin I 0.103 0.104 0-0.045 ng/ml White Blood Count 10.10 4.8-10.8 K/uL Red Blood Count 3.45 4.2-5.4 M/uL Hemoglobin 10.8 12.0-16.0 g/dL Hematocrit 32.1 37-47 % Mean Corpuscular Volume 93.0 80-100 fL Mean Corpuscular Hemoglobin 31.3 25-34 pg Mean Corpuscular Hemoglobin Concent 33.6 32-36 g/dl Platelet Count 151 130-400 K/uL Mean Platelet Volume 9.0 7.4-10.4 fL Neutrophils (%) (Auto) 90.0 % Lymphocytes (%) (Auto) 6.0 % Monocytes (%) (Auto) 3.6 % Eosinophils (%) (Auto) 0.0 % Basophils (%) (Auto) 0.0 % Neutrophils # (Auto) 9.09 1.4-6.5 K/uL Lymphocytes # (Auto) 0.61 1.2-3.4 K/uL Monocytes # (Auto) 0.36 0.11-0.59 K/uL Eosinophils # (Auto) 0.00 0-0.5 K/uL Basophils # (Auto) 0.00 0-0.2 K/uL RDW Standard Deviation 54.7 36.4-46.3 fL RDW Coefficient of Variation 15.9 11.5-14.5 % Immature Granulocyte % (Auto) 0.4 % Immature Granulocyte # (Auto) 0.04 0.00-0.02 K/uL Sodium Level 140 136-145 mmol/L Potassium Level 4.0 3.5-5.1 mmol/L Chloride Level 105 98-107 mmol/L Carbon Dioxide Level 30 21-32 mmol/L Anion Gap 5.0 3-11 mmol/L Blood Urea Nitrogen 17 7-18 mg/dl Creatinine 0.84 0.60-1.20 mg/dl Est Creatinine Clear Calc Drug Dose 47.9 ml/min Estimated GFR () 80.5 Estimated GFR (Non- 69.4 BUN/Creatinine Ratio 19.7 10-20 Random Glucose 140 70-99 mg/dl Calcium Level 8.1 8.5-10.1 mg/dl Magnesium Level 2.1 1.8-2.4 mg/dl Bedside Glucose 158 124 70-90 mg/dl Test 02/18/17 16:15 02/18/17 20:55 Range/Units Bedside Glucose 186 166 70-90 mg/dl Assessment and Plan Patient is a 71 year old female with DM, CAD, CHF, pacemaker placement, HTN, and asthma that presents with complaints of syncope, nausea, vomiting, and shortness of breath. Acute on chronic hypoxic respiratory failure - Improving - Multiple factors contributing - Aspiration pneumonia 2/2 vomiting, COPD Exacerbation, CHF - CT Chest 02/16: Cardiomegaly with mild interstitial thickening at the lung bases, favoring mild pulmonary edema, 7 mm ground glass nodule within the right lower lobe - CTA 02/16: Negative for PE, diffuse interstitial thickening likely representing interstitial pulmonary edema, progressive nodular densities within the periphery of the lung bases and progressive airspace opacities within the bilateral lower lobes posteriorly 2/2 to alveolar pulmonary edema or atypical pneumonia, emphysema - Continue supplemental oxygen, wean as tolerated - Consult to pulm rehab placed - 2 step may be required prior to discharge - [address] follow-up is recommended to ensure resolution. Aspiration Pneumonia - Bibasilar lung infiltrates on chest CT (were not seen on prior abdominal CT 2 hours earlier) - Respiratory status improving. Discontinued azithromycin as not likely to be atypical PNA. - IV Zosyn Day 3 - Currently saturating 98% on 4L NC, not on Oxygen at home - Blood cultures prelim negative COPD Exacerbation - Shortness of breath improving - Transitioned IV Methylprednisolone to PO prednisone 40mg - Atrovent and Xopenex converted to DuoNeb Acute on Chronic Biventricular Systolic CHF - 2/2 Ischemic Cardiomyopathy. ECHO 02/17 reduced LV and RV systolic function, severe mitral regurg, EF 25-30%. No significant change compared to ECHO in 11/23 - Has Biventricular pacer --> Scheduled Saturday for f/u with Dr. Fernandes - Lasix 40mg IV Daily (can double the dose if needed) Nausea and Vomiting - Initially resolved but symptoms are frequently recurring. Abdominal US 02/16: No acute sonographic abnormality is seen in the right upper quadrant. No gallstones are identified. - IV Protonix and IV Pepcid - PRN Phenergan and Lorazepam to calm symptoms Elevated troponin - ordered in view of persistent abdominal pain. Elevated at 0.121, up from 0.017 from the day prior - Significant history of vascular disease - Inferior myocardial infarction in 1999 and catheterization showed 99% circumflex lesion that could not be successfully opened. - Ischemic cardiomyopathy - EF < 35%. - Biventricular ICD in 2011 - PAD - History Popliteal and SFA angioplasties and right iliofemoral endarterectomy - Carotid artery stenosis - s/p CEA - Stenosis of Mesenteric and Celiac Arteries - Discussed with Dr. Vidales and based on length of symptoms and cardiac enzyme values he does not believe these symptoms are atypical ischemic presentation Syncope - No episodes of syncope during hospitalization - Awaiting Pacer interrogation by Dr. Vidales, but initial interrogation in the ED showed no abnormalities Diabetes Mellitus - HbA1c 6.2 - On Metformin at home - Sliding Scale Insulin UTI - Urine culture grew huang-sensitive E.Coli - Currently on broad spectrum antibiotics Hypertension - Lisinopril 40mg qAM - Lasix Drip - 40mg Daily + Klor-Con 10 meq BID - Norvasc 7.5mg qPM - Coreg 25mg BID Hyperlipidemia - Lipitor 80mg HS PO - Ezetimibe 10mg HS Nicotine Abuse - Nicotine Patch DVT Prophylaxis - Heparin 5,000 units Code Status - Full Resuscitation Resident Physician 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 Discussed with Dr. Delaney and agree with findings and plan as documented in the note. Any exceptions or clarifications are listed here: None Documented By: Nahun Luna feeling better breathing easier. still on O2 not before reviewed last PFTs ~8yrs ago FEV1 1.42 then ros otherwise negative except for as above vitals noted nad breathing unlabored decreased BS but no r/r/w aspiration pneumonia w COPD exacerbation and acute (?on chronic) respiratory failure -zosyn - probably transition to augmentin by tomorrow -steroids (wean to PO prednisone) -pulmonary toilet/inhalers - (duonebs for now - transition to advair/spiriva/ prn albuterol at discharge) otherwise as above DVT proph -heparin SQ Continued [facility] stay due to: multiple IV medications needed Discharge planning: home Resident Tracking Resident Involvement: Resident Care Provided Care Provided: Adult Hospital Medicine
[2017-02-18] MEDS: LISINOPRIL 40 MG TAB PO SCH (08:19)
[2017-02-18] MEDS: OMEGA-3 (PURIFIED FISH OIL) 1 GM CAP PO SCH (08:20)
[2017-02-18] MEDS: SERTRALINE HCL 50 MG TAB PO SCH (08:20)
[2017-02-18] MEDS: CLOPIDOGREL BISULFATE 75 MG TAB PO SCH (08:20)
[2017-02-18] MEDS: PANTOprazole SOD 40 MG TAB PO SCH (08:20)
[2017-02-18] MEDS: AZITHROMYCIN 250 MG TAB PO SCH (08:20)
[2017-02-18] MEDS: CARVEDILOL 25 MG TAB PO SCH ×2 (08:21→21:35)
[2017-02-18] MEDS: HEPARIN SOD 5000 UNIT/0.5 ML CARP SQ SCH ×2 (08:26→21:41)
[2017-02-18] MEDS: INSULIN ASPART 100 UNITS/ML 3 ML PEN SC SCH ×4 (08:27→21:40)
[2017-02-18] MEDS: NICOTINE 7 MG/24 HR TDSY TD SCH (09:00)
[2017-02-18] MEDS: FAMOTIDINE 20 MG TAB PO SCH ×2 (09:07→21:37)
[2017-02-18] MEDS ORDERED: NURSING VERBAL MED ORDER ONE (11:15)
[2017-02-18] MEDS: ALBUT/IPRATROP 3MG/0.5MG NEB 3 ML VIAL INH SCH ×2 (14:45→19:28)
--- NOTE | 2017-02-18 17:12 | Medical Student: [facility] ---
Med Student History & Physical Date & Time of Service: February 18, 2017 at 16:21 Chief Complaint: Copd Exac, N/V Primary Care Physician: RV. Edwards MD History of Present Illness Source: patient, clinic records, hospital records Ms Bisi Jameson is a pleasant 71 yo female who presented to the ED three days ago following a syncopal episode accompanied by nausea, vomiting and shortness of breath. Since that time, her symptoms have improved, and she is now resting comfortably on 4L O2 in no respiratory distress. She notes that she still be comes short of breath when taking her O2 off to go to the bathroom, but otherwise is not short of breath. Upon discussing O2 use with her, she is amenable to home oxygen. She states she does not want to use oxygen at home, but would prefer to use it at home "for a time" instead of staying in the hospital if otherwise stable just to use oxygen. She has not eaten much today, but has stayed well hydrated. She remains an everyday smoker at 3-4 cigarettes per day, and is interested in discussing quitting, as she has never been this sick before. She has smoked since she was 15 and has a 60+ pack year history. She understands that she cannot smoke while using oxygen or near her O2 compressor. She has a known history of diabetes mellitus, CAD, CHF with a pacemaker, known mitral value regurgitation and aortic stenosis, hypertension, asthma, and COPD. She only complains of fatigue, dyspnea on exertion without oxygen, poor appetite , and poor sleep. She denies n/v, shortness of breath at rest, chest pain, syncope, dizziness, constipation, diarrhea, or changes in urination. Past Medical/Surgical History Medical Problems: (1) Acute asthma exacerbation Status: Acute (2) Acute bronchitis Status: Acute (3) CHF (congestive heart failure) Status: Acute (4) Hypoxia Status: Acute (5) Nausea Status: Acute (6) Respiratory distress Status: Acute (7) Syncope Status: Acute Social History Smoking Status: Current Every Day Smoker (3-4 cigarettes) Smokeless Tobacco Use: No Alcohol Use: none Drug Use: none Marital Status: Housing status: lives with family Occupational Status: retired Immunizations History of Influenza Vaccine: Yes Influenza Vaccine Date: Oct 12, 2012 History of Tetanus Vaccine?: Unknown History of Pneumococcal: Unknown History of Hepatitis B Vaccine: No Allergies Coded Allergies: Sulfa Antibiotics (Verified Allergy, Intermediate, RASH, 02/16/17) Medications Albuterol Inhaler (Ventolin Inhaler), 2 PUFFS INH Q4-6H Amlodipine (Norvasc), 7.5 MG PO QPM Aspirin (Aspirin Chewable), 81 MG PO QPM Atorvastatin Calcium (Lipitor), 80 MG PO HS Carvedilol (Coreg), 25 MG PO BID Clopidogrel Bisulfate (Plavix), 75 MG PO QAM Ezetimibe (Zetia), 10 MG PO HS Fish Oil ([place]-3), 1 CAP PO DAILY Fluticasone Prop/Salmeterol (Advair Diskus 500/50 60 Dose), 1 PUFF INH BID Furosemide (Lasix), 40 MG PO QAM Lisinopril (Zestril), 40 MG PO QAM Metformin Hcl (Glucophage), 500 MG PO BID Potassium Chloride (Micro-K Ext Rel), 10 MEQ PO BID Sertraline (Zoloft), 50 MG PO QAM Review of Systems Constitutional: + fatigue, + problem reported (loss of appetite) Eyes: No problem reported ENT: No problem reported Respiratory: + cough, + dyspnea on exertion (without O2 going ot bathroom), + shortness of breath (without O2), No dyspnea at rest, No hemoptysis, No sputum, No wheezing Cardiovascular: + PND, + orthopnea (sleeps on 1-2 pillows), No chest pain, No claudication, No edema, No palpitations Abdomen: No problem reported Musculoskeletal: No problem reported Genitourinary - Female: No problem reported Neurologic: No problem reported Psychiatric: No problem reported Physical Exam Vital Signs (24 Hours) Date Time Temp Pulse Resp B/P Pulse Ox O2 Delivery O2 Flow Rate FiO2 02/18/17 15:50 36.8 80 20 136/71 97 02/18/17 14:45 81 18 97 Nasal Cannula 2.0 02/18/17 14:13 36.8 75 18 134/56 95 02/18/17 12:00 Nasal Cannula 4.0 02/18/17 10:00 Nasal Cannula 4.0 02/18/17 09:50 95 02/18/17 07:17 36.7 90 20 119/63 93 Nasal Cannula 4.0 02/18/17 07:04 89 18 93 Nasal Cannula 2.0 02/18/17 04:25 36.5 79 20 133/70 98 Nasal Cannula 5.0 02/18/17 04:00 94 Room Air 5.0 02/18/17 00:15 130/58 02/18/17 00:00 36.9 90 20 90/39 94 Nasal Cannula 5.0 02/18/17 00:00 94 Room Air 5.0 02/17/17 20:00 94 Room Air 5.0 02/17/17 19:19 37.3 99 18 146/71 90 Room Air 02/17/17 19:10 86 18 94 Nasal Cannula 2.0 Vitals: See above: General: W/D, W/N elderly female appearing older than her stated age. HEENT: NCAT, EOMI, PERRLA. MMM. Neck supple, trachea midline. No anterior/ posterior cervical lymphadenopathy. nasal cannula properly placed without rash. CV: S1, S2, RRR. 3/6 decrescendo systolic murmur heard best over R sternal border. No carotid bruit. Pulm: Lungs clear to auscultation in upper and lower lobes bilaterally Abd: Soft, nontender, non-distended. No hepatosplenomegally. Starr sounds active. Extremities: Trace pitting edema in lower extremities bilaterally. Neuro: CNII-XII intact, strength 5/5 b/l in upper and lower extremities. Sensation intact upper and lower extremities bilaterally. Diagnostics Laboratory Results Results Past 24 Hours Test 02/17/17 16:53 02/17/17 20:01 02/17/17 22:50 02/18/17 06:32 Range/Units Troponin I 0.121 0.103 0.104 0-0.045 ng/ml Bedside Glucose 154 70-90 mg/dl White Blood Count 10.10 4.8-10.8 K/uL Red Blood Count 3.45 4.2-5.4 M/uL Hemoglobin 10.8 12.0-16.0 g/dL Hematocrit 32.1 37-47 % Mean Corpuscular Volume 93.0 80-100 fL Mean Corpuscular Hemoglobin 31.3 25-34 pg Mean Corpuscular Hemoglobin Concent 33.6 32-36 g/dl Platelet Count 151 130-400 K/uL Mean Platelet Volume 9.0 7.4-10.4 fL Neutrophils (%) (Auto) 90.0 % Lymphocytes (%) (Auto) 6.0 % Monocytes (%) (Auto) 3.6 % Eosinophils (%) (Auto) 0.0 % Basophils (%) (Auto) 0.0 % Neutrophils # (Auto) 9.09 1.4-6.5 K/uL Lymphocytes # (Auto) 0.61 1.2-3.4 K/uL Monocytes # (Auto) 0.36 0.11-0.59 K/uL Eosinophils # (Auto) 0.00 0-0.5 K/uL Basophils # (Auto) 0.00 0-0.2 K/uL RDW Standard Deviation 54.7 36.4-46.3 fL RDW Coefficient of Variation 15.9 11.5-14.5 % Immature Granulocyte % (Auto) 0.4 % Immature Granulocyte # (Auto) 0.04 0.00-0.02 K/uL Sodium Level 140 136-145 mmol/L Potassium Level 4.0 3.5-5.1 mmol/L Chloride Level 105 98-107 mmol/L Carbon Dioxide Level 30 21-32 mmol/L Anion Gap 5.0 3-11 mmol/L Blood Urea Nitrogen 17 7-18 mg/dl Creatinine 0.84 0.60-1.20 mg/dl Est Creatinine Clear Calc Drug Dose 47.9 ml/min Estimated GFR () 80.5 Estimated GFR (Non- 69.4 BUN/Creatinine Ratio 19.7 10-20 Random Glucose 140 70-99 mg/dl Calcium Level 8.1 8.5-10.1 mg/dl Magnesium Level 2.1 1.8-2.4 mg/dl Test 02/18/17 07:39 02/18/17 11:47 Range/Units Bedside Glucose 158 124 70-90 mg/dl Diagnostic Radiology CT Chest: B/l densities of lower lobes suggestive of atypical pneumonia ( aspiration). 7mm ground-glass appearing nodule of RLL. Diffuse interstitial thickening. CT Abdomen: Pancreas divisum, b/l nonobstructing renal calculi. EKG Atrial-sensed biventricular paced rhythm Impression Assessment and Plan Ms Bisi Jameson is a 77 yo female with acute COPD exacerbation on hospital day three. Her condition is improving but she is still reliant on O2 to breathe comfortably. Individual assessment and plan are as follows: 1. Shortness of breath: Secondary to underlying COPD and aspiration pneumonia. Patient currently on IV methylprednisone __, Atrovert and Xopenex. Will d/c Xopenex and Atrovert, start duoneb q4 hours. Will d/c on tiotropium and extended release albuterol. 2. Aspiration pneumonia: Currently on pip/tazo and azithromycin. Will d/c Azithromycin due to likely gram negative aspiration pneumonia. Will consider changing to Augmentin tomorrow to d/c pip/tazo. Patient has no trouble drinking from a straw or swallowing. 3. COPD: Chronic. Last pulmonary function tests were done 8 years ago, with an FEV1 of 68% predicted. Her COPD at that time would be considered moderate, and may be severe (by FEV1) by now. Patient continues to smoke 3-4 cigarettes per day, see below for discussion. 4. HTN: BP have been stable and within target range during hospitalization. Will continue on 40mg lisinopril 5. CHF: Stable. No changes to medications needed. Continue Coreg 25mg BID, Atorvostatin 80mg, Ezetimibe 10mg daily. 6. DM: Continue insulin sliding scale. 7. Restless Leg: Patient diagnosed with restless leg last week, was unable to fill prescription prior to admission. Will begin Pramipexole .25mg nightly at outpatient dose, hopefully will improve sleep. 8. Nicotine Dependence: Patient continues to smoke 3-4 cigarettes per day. Has tried medication and recently an herbal supplement which made her feel nauseous. She is contemplative for quitting. Will discuss more options for quitting with her tomorrow in more detail and will reiterate that she cannot smoke around O2. 9. UTI: Asymptomatic, grew E.coli, with sensitivity to pip/tazo. Will continue on pip/tazo. 10. DVT Prophylaxis: 11. Disposition: Continued admission due to continued reliance on O2, resolving aspiration pneumonia. Continue all other home meds. Will discuss discharge tomorrow and again discuss home oxygen and smoking cessation. Level of Care Med/Surg Advanced Directives Existing Living Will: No Existing Power of Coordinator Of Genetic Services: No
[2017-02-18] MEDS: ASPIRIN 81 MG ECTAB PO SCH (21:34)
[2017-02-18] MEDS: PRAMIPEXOLE DIHYDROCHLORIDE 0.25MG TAB PO SCH (21:35)
[2017-02-18] MEDS: ATORVASTATIN 40 MG TAB PO SCH (21:35)
[2017-02-18] MEDS: AMLODIPINE BESYLATE 5 MG TAB PO SCH (21:36)
[2017-02-18] MEDS: EZETIMIBE 10MG TAB PO SCH (21:37)
[2017-02-19] VITALS (12 sets, daily range): BP systolic 134–145; BP diastolic 62–73; PULSE 67–80; TEMP 36.5–37.1; O2SAT 90–98
[2017-02-19] MEDS: PIPERACILL/TAZOBAC IV 3.375 GM in DEXTROSE 5% 100ML IV SCH ×3 (06:12→22:15)
[2017-02-19 06:18] LABS: HEMATOCRIT 33.2 % (37-47); MEAN CELL VOLUME 92.7 fL (80-100); MEAN CORPUSCULAR HEMOGLOBIN 31.6 pg (25-34); MEAN PLATELET VOLUME 9.6 fL (7.4-10.4); PLATELET COUNT 160 K/uL (130-400); RED BLOOD COUNT 3.58 M/uL (4.2-5.4); WHITE BLOOD COUNT 9.21 K/uL (4.8-10.8)
[2017-02-19] MEDS: INSULIN ASPART 100 UNITS/ML 3 ML PEN SC SCH ×4 (06:30→20:53)
[2017-02-19 06:56] LABS: BUN/CREATININE RATIO 23.4 (10-20); CALCIUM 8.5 mg/dl (8.5-10.1); CREATININE 0.93 mg/dl (0.60-1.20)
--- NOTE | 2017-02-19 07:37 | Family Medicine Progress Note ---
Progress Note Date of Service February 19, 2017. Subjective Pt evaluation today including: conversation w/ patient, conversation w/ family , physical exam, chart review, lab review Patient sleeping well, woken on my arrival. She denies acute overnight events. She has nasal cannula in situ and since yesterday some attempts made to wean down to 2 L O2, however, she felt better upon resuming 4L. She states her breathing feels comfortable at rest, however, upon ambulation to the washroom, despite oxygen she becomes dyspneic. She denies dizziness and lightheadedness and says that her previous nausea and vomiting have resolved completely.We discussed the possibility of going home on oxygen. Son was present at conversation, and has concerns about sending mother home. Explained that she is not for home yet, until able to ambulate without desaturating, and may benefit from home health services. Patient not keen for home PT. Son thinks related to stigma of PT. Also discussed smoking cessation, patient says she is working on it, but she still needs cigarettes after some triggers, such as food. Constitutional: No chills, No fever Respiratory: + dyspnea on exertion, No cough, No shortness of breath, No wheezing Cardiovascular: + orthopnea, No chest pain, No edema, No palpitations Abdomen: + constipation, No diarrhea, No nausea, No pain, No vomiting Female : No dysuria, No hematuria Objective Vital Signs Date Time Temp Pulse Resp B/P Pulse Ox O2 Delivery O2 Flow Rate FiO2 02/19/17 07:17 36.7 68 18 136/72 96 Nasal Cannula 2.0 02/19/17 04:00 4.0 02/19/17 00:26 37.1 76 20 136/65 95 Room Air 02/19/17 00:00 95 Nasal Cannula 4.0 02/18/17 20:19 36.8 76 18 132/68 95 Nasal Cannula 4.0 02/18/17 20:00 97 Nasal Cannula 4.0 02/18/17 19:31 78 16 98 Nasal Cannula 4.0 02/18/17 16:00 97 Nasal Cannula 4.0 02/18/17 15:50 36.8 80 20 136/71 97 02/18/17 14:45 81 18 97 Nasal Cannula 2.0 02/18/17 14:13 36.8 75 18 134/56 95 02/18/17 12:00 Nasal Cannula 4.0 02/18/17 10:00 Nasal Cannula 4.0 02/18/17 09:50 95 Physical Exam General Appearance: WD/WN, no apparent distress ENT: hearing grossly normal Neck: supple, no adenopathy Respiratory/Chest: lungs clear, normal breath sounds, no respiratory distress, no accessory muscle use Cardiovascular: regular rate, rhythm, no edema, no murmur Abdomen: normal bowel sounds, non tender, soft Extremities: normal inspection, no pedal edema, no calf tenderness Neurologic/Psychiatric: alert, normal mood/affect, oriented x 3 Skin: normal color, warm/dry, no rash Laboratory Results Results Past 24 Hours Test 02/18/17 11:47 02/18/17 16:15 02/18/17 20:55 02/19/17 05:50 Range/Units Bedside Glucose 124 186 166 70-90 mg/dl White Blood Count 9.21 4.8-10.8 K/uL Red Blood Count 3.58 4.2-5.4 M/uL Hemoglobin 11.3 12.0-16.0 g/dL Hematocrit 33.2 37-47 % Mean Corpuscular Volume 92.7 80-100 fL Mean Corpuscular Hemoglobin 31.6 25-34 pg Mean Corpuscular Hemoglobin Concent 34.0 32-36 g/dl RDW Standard Deviation 53.2 36.4-46.3 fL RDW Coefficient of Variation 15.7 11.5-14.5 % Platelet Count 160 130-400 K/uL Mean Platelet Volume 9.6 7.4-10.4 fL Sodium Level 140 136-145 mmol/L Potassium Level 4.0 3.5-5.1 mmol/L Chloride Level 103 98-107 mmol/L Carbon Dioxide Level 35 21-32 mmol/L Anion Gap 2.0 3-11 mmol/L Blood Urea Nitrogen 22 7-18 mg/dl Creatinine 0.93 0.60-1.20 mg/dl Est Creatinine Clear Calc Drug Dose 43.3 ml/min Estimated GFR () 71.2 Estimated GFR (Non- 61.4 BUN/Creatinine Ratio 23.4 10-20 Random Glucose 93 70-99 mg/dl Calcium Level 8.5 8.5-10.1 mg/dl Test 02/19/17 07:38 Range/Units Bedside Glucose 117 70-90 mg/dl Microbiology Results 02/19/17 Gram Stain - Final, Resulted 02/19/17 Sputum Culture, Resulted Pending Assessment and Plan Patient is a 71 year old female with DM, CAD, CHF, pacemaker placement, HTN, and asthma that presents with complaints of syncope, nausea, vomiting, and shortness of breath. Acute on chronic hypoxic respiratory failure - Improving - Multiple factors contributing - Aspiration pneumonia 2/2 vomiting, COPD Exacerbation, CHF - CT Chest 02/16: Cardiomegaly with mild interstitial thickening at the lung bases, favoring mild pulmonary edema, 7 mm ground glass nodule within the right lower lobe - CTA 02/16: Negative for PE, diffuse interstitial thickening likely representing interstitial pulmonary edema, progressive nodular densities within the periphery of the lung bases and progressive airspace opacities within the bilateral lower lobes posteriorly 2/2 to alveolar pulmonary edema or atypical pneumonia, emphysema - Continue supplemental oxygen, wean as tolerated - Consult to pulm rehab placed - 2 step may be required prior to discharge - [address] follow-up is recommended to ensure resolution. Aspiration Pneumonia - Bibasilar lung infiltrates on chest CT (were not seen on prior abdominal CT 2 hours earlier) - Respiratory status improving. Discontinued azithromycin as not likely to be atypical PNA. Blood cultures negative. - IV Zosyn Day 4 -- plans to switch to Augmentin tomorrow if continued improvement - Currently saturating 98% on 4L NC, not on Oxygen at home COPD Exacerbation - Shortness of breath improving. Initially put on methylprednisone, atrovent and xopenex. Transitioned to step downs. - PO prednisone 40mg. 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 Has Biventricular pacer. ECHO 02/17 reduced LV and RV systolic function, severe mitral regurg, EF 25-30%. No significant change compared to ECHO in 11/23 - Lasix 40mg IV Daily (can double the dose if needed) - f/u with Dr. Fernandes needs to be rescheduled Nausea and Vomiting - likely 2/2 food poisoning. Abdominal US 02/16: No acute sonographic abnormality is seen in the right upper quadrant. No gallstones are identified. Symptoms resolved now. - Protonix 40mg qAM and Pepcid 20mg BID - PRN Phenergan and Lorazepam to calm symptoms - patient has not used at all through out admission Elevated troponin - ordered in view of persistent abdominal pain. Elevated at 0.121, up from 0.017 from the day prior - Significant history of vascular disease - Inferior myocardial infarction in 1999 and catheterization showed 99% circumflex lesion that could not be successfully opened. - Ischemic cardiomyopathy - EF < 35%. - Biventricular ICD in 2012 - PAD - History Popliteal and SFA angioplasties and right iliofemoral endarterectomy - Carotid artery stenosis - s/p CEA - Stenosis of Mesenteric and Celiac Arteries - Discussed with Dr. Vidales and based on length of symptoms and cardiac enzyme values he does not believe these symptoms are atypical ischemic presentation Syncope - Interrogation in the ED showed no abnormalities. No episodes of syncope during hospitalization. Diabetes Mellitus - HbA1c 6.2 - On Metformin at home - held for admission given dehydration. - May be discontinued completely given patient's relatively low HbA1c - if patient desires (will discuss at time of discharge) - Sliding Scale Insulin UTI - Urine culture grew huang-sensitive E.Coli - Currently on broad spectrum antibiotics Hypertension - Lisinopril 40mg qAM - Norvasc 7.5mg qPM - Coreg 25mg BID - Lasix Drip - 40mg Daily + Klor-Con 10 meq BID held in view of dehydration Hyperlipidemia - Lipitor 80mg HS PO - Ezetimibe 10mg HS Nicotine Abuse - Nicotine Patch - patient is declining DVT Prophylaxis - Heparin 5,000 units Code Status - Full Resuscitation Resident Physician 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 Discussed with Dr. Delaney and agree with findings and plan as documented in the note. Any exceptions or clarifications are listed here: None Documented By: Nahun Luna feeling better not quite ready to go home not walking around much but breathing better discussed wtih pt at length, then family arrived, reiterated discussions with them as well ros otherwise negative except for as above vitals noted nad breathing unlabored better air entry no r/r/w good effort still on O2 aspiration pneumonia w COPD exacerbation - improving nausea/vomiting - resolved chronic poor appetite and early satiety - recommended outpt GI eval once improved from COPD / pneumonia likely will need home O2 Continued [facility] stay due to: ambulation difficulties (sats desaturate) Discharge planning: uncertain Resident Tracking Resident Involvement: Resident Care Provided Care Provided: Adult Hospital Medicine
[2017-02-19] MEDS: ALBUT/IPRATROP 3MG/0.5MG NEB 3 ML VIAL INH SCH ×4 (07:55→19:16)
[2017-02-19] MEDS ORDERED: LORAZEPAM 0.5 MG TAB PO PRN (08:00)
[2017-02-19] MEDS: SERTRALINE HCL 50 MG TAB PO SCH (08:23)
[2017-02-19] MEDS: LISINOPRIL 40 MG TAB PO SCH (08:23)
[2017-02-19] MEDS: FAMOTIDINE 20 MG TAB PO SCH ×2 (08:23→20:53)
[2017-02-19] MEDS: OMEGA-3 (PURIFIED FISH OIL) 1 GM CAP PO SCH (08:23)
[2017-02-19] MEDS: CLOPIDOGREL BISULFATE 75 MG TAB PO SCH (08:24)
[2017-02-19] MEDS: PANTOprazole SOD 40 MG TAB PO SCH (08:25)
[2017-02-19] MEDS: CARVEDILOL 25 MG TAB PO SCH ×2 (08:25→20:52)
[2017-02-19] MEDS: NICOTINE 7 MG/24 HR TDSY TD SCH (08:28)
[2017-02-19] MEDS: HEPARIN SOD 5000 UNIT/0.5 ML CARP SQ SCH ×2 (08:30→20:57)
[2017-02-19 14:15] LABS: LEGIONELLA ANTIGEN NOT DETECTED (NOT DETECTED)
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
[2017-02-19] MEDS: ASPIRIN 81 MG ECTAB PO SCH (20:51)
[2017-02-19] MEDS: ATORVASTATIN 40 MG TAB PO SCH (20:51)
[2017-02-19] MEDS: EZETIMIBE 10MG TAB PO SCH (20:52)
[2017-02-19] MEDS: AMLODIPINE BESYLATE 5 MG TAB PO SCH (20:52)
[2017-02-19] MEDS: PRAMIPEXOLE DIHYDROCHLORIDE 0.25MG TAB PO SCH (20:52)
[2017-02-20] VITALS (13 sets, daily range): BP systolic 107–149; BP diastolic 60–69; PULSE 69–98; TEMP 36.4–36.8; O2SAT 91–97
[2017-02-20] MEDS: PIPERACILL/TAZOBAC IV 3.375 GM in DEXTROSE 5% 100ML IV SCH (05:12)
[2017-02-20] MEDS: INSULIN ASPART 100 UNITS/ML 3 ML PEN SC SCH ×4 (06:30→21:07)
--- NOTE | 2017-02-20 07:36 | Family Medicine Progress Note ---
Progress Note Date of Service February 20, 2017. Subjective Pt evaluation today including: conversation w/ patient, physical exam, chart review, lab review Patient denies acute health issues overnight. She is feeling well currently.She feels that she is breathing much more comfortably now. She does desat on ambulation, but states she does not feel as short of breath as she did yesterday - small improvement. She continues to deny dyspepsia, nausea. She is tolerating diet and sleeping well. Constitutional: No chills, No fever Respiratory: No cough, No shortness of breath, No wheezing Cardiovascular: No chest pain, No edema (improved swelling in feet compared to yesterday), No palpitations Abdomen: No constipation, No diarrhea, No nausea, No pain, No vomiting Female : No dysuria, No hematuria Objective Vital Signs Date Time Temp Pulse Resp B/P Pulse Ox O2 Delivery O2 Flow Rate FiO2 02/20/17 07:16 36.7 79 18 149/69 95 Room Air 02/20/17 04:14 36.4 81 19 144/ 91 Nasal Cannula 1.0 02/20/17 04:00 Nasal Cannula 4.0 02/20/17 00:17 36.8 74 19 124/61 92 Nasal Cannula 1.0 02/20/17 00:00 Nasal Cannula 4.0 02/19/17 20:35 36.8 76 18 134/62 90 Nasal Cannula 2.0 02/19/17 20:00 Nasal Cannula 4.0 02/19/17 19:19 67 16 97 Nasal Cannula 2.0 02/19/17 16:00 96 Nasal Cannula 4.0 02/19/17 14:41 36.9 70 20 134/71 96 Nasal Cannula 2.0 02/19/17 14:35 80 16 91 Room Air 02/19/17 12:00 96 Nasal Cannula 4.0 02/19/17 11:38 36.5 75 18 145/73 93 Nasal Cannula 2.0 02/19/17 08:00 98 Nasal Cannula 4.0 02/19/17 07:56 73 16 98 Nasal Cannula 4.0 Physical Exam General Appearance: WD/WN, no apparent distress Neck: supple, no adenopathy Respiratory/Chest: lungs clear, normal breath sounds, no respiratory distress, no accessory muscle use, + decreased breath sounds (at bases) Cardiovascular: regular rate, rhythm, no murmur Abdomen: normal bowel sounds, non tender, soft Extremities: normal inspection, no pedal edema, no calf tenderness Neurologic/Psychiatric: alert, normal mood/affect, oriented x 3 Skin: normal color, warm/dry, no rash Laboratory Results Results Past 24 Hours Test 02/19/17 20:35 02/20/17 07:04 02/20/17 16:21 Range/Units Bedside Glucose 140 91 157 70-90 mg/dl Assessment and Plan Patient is a 71 year old female with DM, CAD, CHF, pacemaker placement, HTN, and asthma that presents with complaints of syncope, nausea, vomiting, and shortness of breath. Acute on chronic hypoxic respiratory failure - Improving - Multiple factors contributing - Aspiration pneumonia 2/2 vomiting, COPD Exacerbation, CHF - CT Chest 02/16: Cardiomegaly with mild interstitial thickening at the lung bases, favoring mild pulmonary edema, 7 mm ground glass nodule within the right lower lobe - CTA 02/16: Negative for PE, diffuse interstitial thickening likely representing interstitial pulmonary edema, progressive nodular densities within the periphery of the lung bases and progressive airspace opacities within the bilateral lower lobes posteriorly 2/2 to alveolar pulmonary edema or atypical pneumonia, emphysema - Continue supplemental oxygen, wean as tolerated - Consult to pulm rehab placed - 2 step ordered - [address] follow-up is recommended to ensure resolution. Aspiration Pneumonia - Bibasilar lung infiltrates on chest CT (were not seen on prior abdominal CT 2 hours earlier) - Respiratory status improving. Discontinued azithromycin as not likely to be atypical PNA. Blood cultures negative. - IV Zosyn converted to Augmentin 875mg BID (creatinine normal) - Day 5 - Currently saturating 98% on 4L NC, not on Oxygen at home COPD Exacerbation - Shortness of breath improving. Initially put on methylprednisone, atrovent and xopenex. Transitioned to step downs. - PO prednisone tapered to 30mg today - DuoNeb - Plans to taper prednisone by 5-10mg every 3 days depending on improvement - Plans to discharge home on Spiriva +/- Advair, in addition to albuterol PRN Acute on Chronic Biventricular Systolic CHF - 2/2 Ischemic Cardiomyopathy. Has Biventricular pacer. ECHO 02/17 reduced LV and RV systolic function, severe mitral regurg, EF 25-30%. No significant change compared to ECHO in 11/23 - Lasix held due to dehydration. Continue to hold as no evidence of fluid overload. 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 Was scheduled as outpatient for tomorrow. - Dr. Park to assess if patient stable for procedure tomorrow AM - NPO overnight with heparin held Nausea and Vomiting - likely 2/2 food poisoning. Abdominal US 02/16: No acute sonographic abnormality is seen in the right upper quadrant. No gallstones are identified. Symptoms resolved now. - Protonix 40mg qAM and Pepcid 20mg BID changed to PRN medication - PRN Phenergan and Lorazepam to calm symptoms - patient has not used at all through out admission Elevated troponin - ordered in view of persistent abdominal pain. Elevated at 0.121, up from 0.017 from the day prior - Significant history of vascular disease - Inferior myocardial infarction in 1999 and catheterization showed 99% circumflex lesion that could not be successfully opened. - Ischemic cardiomyopathy - EF < 35%. - Biventricular ICD in 2011 - PAD - History Popliteal and SFA angioplasties and right iliofemoral endarterectomy - Carotid artery stenosis - s/p CEA - Stenosis of Mesenteric and Celiac Arteries - Discussed with Dr. Vidales and based on length of symptoms and cardiac enzyme values he does not believe these symptoms are atypical ischemic presentation Syncope - Interrogation in the ED showed no abnormalities. No episodes of syncope during hospitalization. Diabetes Mellitus - HbA1c 6.2 - On Metformin at home - held for admission given dehydration. - May be discontinued completely given patient's relatively low HbA1c - if patient desires (will discuss at time of discharge) - Sliding Scale Insulin UTI - Urine culture grew huang-sensitive E.Coli. Adequately treated with broad spectrum antibiotics for pneumonia. Hypertension - Lisinopril 40mg qAM - Norvasc 7.5mg qPM - Coreg 25mg BID - Lasix Drip - 40mg Daily + Klor-Con 10 meq BID held in view of dehydration Hyperlipidemia - Lipitor 80mg HS PO - Ezetimibe 10mg HS Nicotine Abuse - Nicotine Patch - patient is declining DVT Prophylaxis - Heparin 5,000 units Code Status - Full Resuscitation Resident Physician 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 Discussed with Dr. Delaney and agree with findings and plan as documented in the note. Any exceptions or clarifications are listed here: None Documented By: Nahun Luna feeling better braethign better for pacer battery change in AM ros otherwise negative except for as above vitals noted nad breathing unlabored aspiration pneumonia w COPD exac - improving Continued [facility] stay due to: other (Pending procedure) Discharge planning: home with home health Resident Tracking Resident Involvement: Resident Care Provided Care Provided: Adult Hospital Medicine
[2017-02-20] MEDS: ALBUT/IPRATROP 3MG/0.5MG NEB 3 ML VIAL INH SCH ×4 (07:49→19:02)
[2017-02-20] MEDS: SERTRALINE HCL 50 MG TAB PO SCH (08:32)
[2017-02-20] MEDS: NICOTINE 7 MG/24 HR TDSY TD SCH (08:32)
[2017-02-20] MEDS: PANTOprazole SOD 40 MG TAB PO SCH (08:32)
[2017-02-20] MEDS: LISINOPRIL 40 MG TAB PO SCH (08:32)
[2017-02-20] MEDS: OMEGA-3 (PURIFIED FISH OIL) 1 GM CAP PO SCH (08:32)
[2017-02-20] MEDS: CARVEDILOL 25 MG TAB PO SCH ×2 (08:32→21:04)
[2017-02-20] MEDS: FAMOTIDINE 20 MG TAB PO SCH (08:32)
[2017-02-20] MEDS: CLOPIDOGREL BISULFATE 75 MG TAB PO SCH (08:32)
[2017-02-20] MEDS: HEPARIN SOD 5000 UNIT/0.5 ML CARP SQ SCH (08:39)
--- NOTE | 2017-02-20 10:01 | Cardiology Follow-Up ---
Subjective Date of Service: February 20, 2017. Pt evaluation today including: conversation w/ patient, conversation w/ family , physical exam, lab review, review of studies, review of inpatient medication list History of Present Illness Patient is scheduled tomorrow for device replacement due to battery depletion, that was scheduled as an outpatient. Following scheduling the procedure she was admitted with her current illness. Currently she is feeling much better, she is little short of breath at times but her GI symptoms have resolved. Social History Smoking Status: Current Every Day Smoker (3-4 cigarettes) History of Alcohol Use: No Review of Systems Respiratory: + cough, + dyspnea on exertion, + sputum, No dyspnea at rest Cardiac: No problem reported Medications Cardiovascular: Item Value Date Time Clopidogrel 75 mg 02/17/17 0900 Bisulfate QAM/PO 02/20/17 0832 (plAVix TAB) Lisinopril 40 mg 02/17/17 0900 (Zestril Tab) QAM/PO 02/20/17 0832 Amlodipine 7.5 mg 02/16/17 2100 Besylate QPM/PO 02/19/172051 (Norvasc Tab) Aspirin 81 mg 02/16/17 2100 (Ecotrin Tab) QPM/PO 02/19/172050 Atorvastatin 80 mg 02/16/17 2100 Calcium HS/PO 02/19/172050 (Lipitor Tab) Carvedilol 25 mg 02/16/17 2100 (Coreg Tab) BID/PO 02/20/1732 EZETIMIBE 10 mg 02/16/17 2100 (Zetia Tab) HS/PO 02/19/172051 Objective Vital Signs Past 12 Hours Date Time Temp Pulse Resp B/P Pulse Ox O2 Delivery O2 Flow Rate FiO2 02/20/17 07:50 Nasal Cannula 4.0 02/20/17 07:49 73 16 93 Nasal Cannula 1.0 02/20/17 07:16 36.7 79 18 149/69 95 Room Air 02/20/17 04:14 36.4 81 19 144/ 91 Nasal Cannula 1.0 02/20/17 04:00 Nasal Cannula 4.0 02/20/17 00:17 36.8 74 19 124/61 92 Nasal Cannula 1.0 02/20/17 00:00 Nasal Cannula 4.0 Last Recorded Weight-Kilograms: 52.100 Intake & Output 8-Hour Column 02/19/17 02/19/17 02/20/17 15:59 23:59 07:59 Intake Total 395 ml 390 ml 264 ml Output Total 350 ml Balance 395 ml 390 ml -86 ml 24-Hour Column 02/20/17 07:59 Intake Total 1049 ml Output Total 350 ml Balance 699 ml Physical Exam Constitutional: Level of Distress: NAD Lungs: Auscultation: deminished air movement Cardiovascular: Heart Auscultation: RRR Data Laboratory Results: Last 24 Hours Test 02/19/17 11:32 02/19/17 16:32 02/19/17 20:35 02/20/17 07:04 Bedside Glucose 128 mg/dl 182 mg/dl 140 mg/dl 91 mg/dl Assessment and Plan #1. ICD BRIANDA: She is scheduled for tomorrow for device replacement, I believe she will be ready from the medical standpoint for that procedure. I will therefore plan on doing it as scheduled, tentatively for 9:00 tomorrow morning. I will stop by and see her in the morning before the procedure. He can safely be rescheduled if indicated, the device still has adequate life to allow rescheduling of the procedure. Thank you for allowing me to participate in her care.
[2017-02-20] MEDS: AMOXICILLIN/CLAVULANATE TAB 875 MG TAB PO SCH (17:10)
--- NOTE | 2017-02-20 17:31 | Medical Student: [facility] ---
Med Student Progress Note Date of Service February 20, 2017. Subjective Pt evaluation today including: conversation w/ patient Voiding: no voiding problems, no incontinence Ms Bisi Jameson is a pleasant 71 yo female with a history of COPD and acute aspiration pneumonia on hospital day 5. Since admission she has gradually improved, with resolution of most of her symptoms. She still uses O2 via nasal canula sometimes when she becomes short of breath. She is able to rest comfortably without oxygen for some time, but notices that her sats drop after a while. She continues to be short of breath when going to the bathroom or moving around the room, but feels better each day. She is not craving a cigarette, and hopefully "wont pick another one up". While speaking with Ms Jameson, Dr. Egan spoke with her too. He would like to proceed with defibrillator battery pack change tomorrow morning, but will give his final approval tomorrow AM. Ms Jameson is agreeable. Following a successful procedure, Ms Jameson is agreeable to return home with oxygen as needed until she is back to her baseline. She has a known history of diabetes mellitus, CAD, CHF with a pacemaker, known mitral value regurgitation and aortic stenosis, hypertension, asthma, and COPD. She complains of lack of appetite and shortness of breath with exertion, although less than yesterday. She denies n/v, shortness of breath at rest, chest pain, syncope, dizziness, constipation, diarrhea, or changes in urination. Review of Systems Constitutional: + see HPI Eyes: No problem reported ENT: No problem reported Respiratory: + dyspnea at rest (without oxygen for ~>30 minutes), + dyspnea on exertion Cardiac: No problem reported Abdomen: No problem reported Musculoskeletal: No problem reported Female : No problem reported Neurologic: No problem reported Psychiatric: No problem reported Heme: No problem reported Skin: No problem reported Objective Vital Signs Date Time Temp Pulse Resp B/P Pulse Ox O2 Delivery O2 Flow Rate FiO2 02/20/17 16:26 95 Room Air 02/20/17 16:00 95 Room Air 02/20/17 15:15 78 16 97 Nasal Cannula 1.0 02/20/17 14:57 36.7 80 18 107/60 95 Nasal Cannula 1.0 02/20/17 12:15 Nasal Cannula 4.0 02/20/17 11:35 98 16 92 Nasal Cannula 2.0 02/20/17 11:25 36.7 78 18 118/67 96 Nasal Cannula 1.0 02/20/17 11:09 36.7 79 16 149/69 93 Nasal Cannula 4.0 02/20/17 07:50 Nasal Cannula 4.0 02/20/17 07:49 73 16 93 Nasal Cannula 1.0 02/20/17 07:16 36.7 79 18 149/69 95 Room Air 02/20/17 04:14 36.4 81 19 144/ 91 Nasal Cannula 1.0 02/20/17 04:00 Nasal Cannula 4.0 02/20/17 00:17 36.8 74 19 124/61 92 Nasal Cannula 1.0 02/20/17 00:00 Nasal Cannula 4.0 02/19/17 20:35 36.8 76 18 134/62 90 Nasal Cannula 2.0 02/19/17 20:00 Nasal Cannula 4.0 02/19/17 19:19 67 16 97 Nasal Cannula 2.0 Physical Exam General Appearance: WD/WN, no apparent distress Comments: Vitals: See above: General: W/D, W/N elderly female appearing older than her stated age. Resting comfortably, no acute distress. HEENT: NCAT, EOMI, PERRLA. MMM. Neck supple, trachea midline. No anterior/ posterior cervical lymphadenopathy. nasal cannula properly placed without signs of irritation. CV: S1, S2, RRR. No carotid bruit. Pulm: Slight inspiratory wheeze more pronounced in upper lobes. Some cough appreciated during conversation. No rhonchi, rales or crackles. Abd: Soft, nontender, non-distended. No hepatosplenomegally. Starr sounds active. Extremities: No lower extremity edema. No calf tenderness. Neuro: CNII-XII intact, strength 5/5 b/l in upper and lower extremities. Sensation intact upper and lower extremities bilaterally. Laboratory Results Last 24 Hours Test 02/19/17 20:35 02/20/17 07:04 02/20/17 16:21 Bedside Glucose 140 mg/dl 91 mg/dl 157 mg/dl Assessment and Plan Assessment and Plan: Ms Bisi Jameson is a 77 yo female with acute COPD exacerbation on hospital day five. Her condition continues to improve and she is able to tolerate periods without oxygen. Individual assessment and plan are as follows: 1. Shortness of breath: Secondary to underlying COPD and aspiration pneumonia. Patient currently on 40mg oral prednisone and duoneb q4 hours. Will begin prednisone taper by 10mg every two days. Will plan to discharge on tiotropium and extended release albuterol. 2. Aspiration pneumonia: Pip/tazo to Augmentin in prep for discharge. 3. COPD: Chronic. Last pulmonary function tests were done 8 years ago, with an FEV1 of 68% predicted. Her COPD at that time would be considered moderate, and may be severe (by FEV1) by now. Patient continues to smoke 3-4 cigarettes per day, see below for discussion regarding smoking. Not previously on O2. Will d/ c on daily Spiriva and Albuterol. 4. HTN: BP have been stable and within target range during hospitalization. Will continue on 40mg lisinopril 5. CHF: Stable. No changes to medications needed. Continue Coreg 25mg BID, Atorvostatin 80mg, Ezetimibe 10mg daily. 6. DM: Continue insulin sliding scale. Likely will be able to discontinue metformin, but will leave that up to PCP. 7. Restless Leg: Patient started on Pramipexole .25mg nightly 8. Nicotine Dependence: Patient continues to smoke 3-4 cigarettes per day. Has tried medication and recently an herbal supplement which made her feel nauseous. She is contemplative for quitting. Options discussed in detail, as well as replacements for her being a "habit smoker". 9. UTI: Asymptomatic, grew E.coli, with sensitivity to augmentin. 10. DVT Prophylaxis: Heparin sq. 11. Disposition: Likely discharge tomorrow following pacer/defib battery pack change. Will talk with Jignesh in AM to discuss procedure. NPO after dinner. Continued [facility] stay due to: ambulation difficulties (sats desaturate) Discharge planning: other (likely home tomorrow following battery pack change in AM. )
[2017-02-20] MEDS ORDERED: FAMOTIDINE 20 MG TAB PO PRN (21:00)
[2017-02-20] MEDS: ASPIRIN 81 MG ECTAB PO SCH (21:00)
[2017-02-20] MEDS: ATORVASTATIN 40 MG TAB PO SCH (21:04)
[2017-02-20] MEDS: PRAMIPEXOLE DIHYDROCHLORIDE 0.25MG TAB PO SCH (21:04)
[2017-02-20] MEDS: EZETIMIBE 10MG TAB PO SCH (21:04)
[2017-02-20] MEDS: AMLODIPINE BESYLATE 5 MG TAB PO SCH (21:04)
[2017-02-21] VITALS (9 sets, daily range): BP systolic 100–152; BP diastolic 41–64; PULSE 68–85; TEMP 36.5–37.5; O2SAT 90–93
[2017-02-21] MEDS ORDERED: CEFAZOLIN SOD 1000MG/55 ML D5W IV SCH (06:00)
[2017-02-21] MEDS ORDERED: CEFAZOLIN 1000MG/55 ML D5W IV SCH (06:00)
[2017-02-21] MEDS ORDERED: CEFAZOLIN IV 1,000 MG in DEXTROSE 5% 50ML 50 ML IV SCH (06:00)
[2017-02-21] MEDS: INSULIN ASPART 100 UNITS/ML 3 ML PEN SC SCH ×2 (06:30→11:00)
[2017-02-21] MEDS: ALBUT/IPRATROP 3MG/0.5MG NEB 3 ML VIAL INH SCH ×2 (07:22→11:08)
[2017-02-21] MEDS ORDERED: LACTATED RINGER'S 1000ML 1,000 ML IV ONE (08:00)
[2017-02-21] MEDS: NICOTINE 7 MG/24 HR TDSY TD SCH (08:27)
[2017-02-21] MEDS: AMOXICILLIN/CLAVULANATE TAB 875 MG TAB PO SCH (08:28)
[2017-02-21] MEDS: CLOPIDOGREL BISULFATE 75 MG TAB PO SCH (08:28)
[2017-02-21] MEDS: SERTRALINE HCL 50 MG TAB PO SCH (08:28)
[2017-02-21] MEDS: LISINOPRIL 40 MG TAB PO SCH (08:29)
[2017-02-21] MEDS: OMEGA-3 (PURIFIED FISH OIL) 1 GM CAP PO SCH (08:30)
[2017-02-21] MEDS: CARVEDILOL 25 MG TAB PO SCH (08:30)
[2017-02-21] MEDS ORDERED: PANTOprazole SOD 40 MG TAB PO PRN (09:00)
--- NOTE | 2017-02-21 09:27 | Cardiology Follow-Up ---
Subjective Date of Service: February 21, 2017. Pt evaluation today including: conversation w/ patient, physical exam, lab review, review of studies, review of inpatient medication list History of Present Illness Patient is scheduled today for device replacement due to battery depletion, that was originally scheduled as an outpatient. Following scheduling the procedure she was admitted with her current illness. Currently she is feeling much better, she is little short of breath at times but minimal and her GI symptoms have resolved. Social History Smoking Status: Current Every Day Smoker History of Alcohol Use: No Review of Systems Respiratory: No cough, No shortness of breath, No wheezing Cardiac: No chest pain, No edema (improved swelling in feet compared to yesterday), No palpitations Objective Vital Signs Past 12 Hours Date Time Temp Pulse Resp B/P Pulse Ox O2 Delivery O2 Flow Rate FiO2 02/21/17 08:00 Room Air 02/21/17 07:22 81 14 92 Room Air 02/21/17 07:05 36.7 80 20 152/64 92 Room Air 02/21/17 04:04 37.1 77 20 121/63 92 Room Air 02/21/17 04:00 Room Air 02/21/17 00:06 36.6 68 20 135/61 92 Room Air 02/21/17 00:00 Room Air Last Recorded Weight-Kilograms: 51.100 Intake & Output 8-Hour Column 02/20/17 02/21/17 02/21/17 16:00 00:00 08:00 Intake Total 425 ml 520 ml 150 ml Output Total 375 ml Balance 425 ml 520 ml -225 ml 24-Hour Column 02/21/17 08:00 Intake Total 1095 ml Output Total 375 ml Balance 720 ml Physical Exam Constitutional: Level of Distress: NAD Lungs: Auscultation: deminished air movement Cardiovascular: Heart Auscultation: RRR Data Laboratory Results: Last 24 Hours Test 02/20/17 16:21 02/20/17 20:24 02/21/17 07:13 Bedside Glucose 157 mg/dl 187 mg/dl 86 mg/dl Telemetry reviewed: Normal ICD function Assessment and Plan #1. ICD BRIANDA: She is scheduled for for device replacement, I believe she is ready from the medical standpoint for that procedure. I discussed the indications, procedure, risks and alternatives with her and she understands and agrees to proceed. Consent obtained. Thank you for allowing me to participate in her care.
--- NOTE | 2017-02-21 09:36 | Procedure Note ---
Pre-Mod Sedation Assessment General Date of Moderate Sedation: February 21, 2017. Vital Signs: Vital Signs Past 12 Hours Date Time Temp Pulse Resp B/P Pulse Ox O2 Delivery O2 Flow Rate FiO2 02/21/17 08:00 Room Air 02/21/17 07:22 81 14 92 Room Air 02/21/17 07:05 36.7 80 20 152/64 92 Room Air 02/21/17 04:04 37.1 77 20 121/63 92 Room Air 02/21/17 04:00 Room Air 02/21/17 00:06 36.6 68 20 135/61 92 Room Air 02/21/17 00:00 Room Air Review Cardiovascular: regular rate, rhythm Abdomen: normal bowel sounds Lungs: lungs clear Pre-Sedation Airway Assessment Oral Cavity: WNL Short Thick Neck: No Hx of Sleep Apnea: No Smoking Status: Current Every Day Smoker Procedure Planning Contraindications-for Mod Sed: None Yes Notes The planned sedation has been discussed with the patient and consent obtained. I have identified the patient, determined the appropriateness of sedation and have assessed the patient immediately prior to the procedure. All medicine(s) and interventions are by my order.
[2017-02-21] MEDS ORDERED: BACITRACIN OINT 0.9 GM PKT ONE (09:37)
[2017-02-21] MEDS ORDERED: BACITRACIN 50000 UNIT VIAL ONE ×2 (09:37→09:44)
[2017-02-21] MEDS ORDERED: BACITRACIN OINT 15 GM TUBE ONE (09:44)
[2017-02-21] MEDS ORDERED: LIDOCAINE HCL 1% 20 ML VIAL ONE ×3 (09:44→10:40)
[2017-02-21] MEDS ORDERED: MIDAZOLAM HCL 5 MG/ML 1 ML VIAL ONE (09:47)
[2017-02-21] MEDS ORDERED: FENTANYL CITRATE INJ 50 MCG/1 ML 2 ML VIAL ONE (09:47)
[2017-02-21] MEDS ORDERED: CEFAZOLIN IV 1,000 MG in DEXTROSE 5% 50ML 50 ML IV ONE (10:00)
--- NOTE | 2017-02-21 11:27 | Cardiology Procedure Brief Nt ---
Preliminary Cardiology Note Procedure Date February 21, 2017. Pre-Procedure Diagnosis ICD BRIANDA Post-Procedure Diagnosis Same Procedure(s) Performed Bi-Ventricular ICD replacement Tyrx pouch placed [employer] Incentive Selector Dena Manager Star(s) None Estimated Blood Loss 20 cc Preliminary Findings Stable chronic lead measurements Recommendations Monitor briefly and discharge Specimens Old ICD, return to Medtronic Anesthesia Local with sedation Complication(s) None Disposition Recovery Room / PACU
--- NOTE | 2017-02-21 11:28 | Procedure Note ---
Post-Mod Sedation Assessment General Date of Moderate Sedation February 21, 2017. Vital Signs: Vital Signs Past 12 Hours Date Time Temp Pulse Resp B/P Pulse Ox O2 Delivery O2 Flow Rate FiO2 02/21/17 08:00 Room Air 02/21/17 07:22 81 14 92 Room Air 02/21/17 07:05 36.7 80 20 152/64 92 Room Air 02/21/17 04:04 37.1 77 20 121/63 92 Room Air 02/21/17 04:00 Room Air 02/21/17 00:06 36.6 68 20 135/61 92 Room Air 02/21/17 00:00 Room Air Review - Discharge Criteria Vital Signs Stable: Yes Alert/Oriented/Conversant: Yes Returned to Baseline Mental St: Yes Nausea Absent/Minimal: Yes Pain/Discomfort/Absent/Minimal: Yes Normal/Baseline Respirations: Yes Active Bleeding?: No
[2017-02-21] MEDS ORDERED: KETOROLAC TROMETHAMINE 10 MG TAB PO PRN (11:30)
[2017-02-21] MEDS ORDERED: ACETAMINOPHEN 325 MG TAB PO PRN (11:30)
--- NOTE | 2017-02-21 11:57 | PROGRESS NOTE ---
DATE: 02/20/2017 DATE: 02/20/2017. PROBLEM LIST: Includes: 1. Bibasilar lung infiltrate. 2. Chronic obstructive pulmonary disease with exacerbation. 3. Multiple right lower lobe nodules. 4. Coronary artery disease with congestive heart failure. SUBJECTIVE: The patient has not been seen by pulmonary department since February 18. Since that time, the patient has noticed significant improvement. Her breathing is improving. She is requiring less oxygen. She has a little bit of cough yet, but it has improved as well. She is not getting much mucus up, when she does it is getting more clear. She has no wheezing, no chest heaviness or tightness. She has not had any chills. No fever. She is getting up and moving around in the room. She denies any cardiac symptoms. No chest pain. No chest pressure, no palpitations, no abdominal pain, no nausea or vomiting, no ingestion or heartburn. She is not having any difficulty with her bowels. No difficulty voiding. She states that her bowels have not moved for several days. She is passing air. She is not having any belly pain, no difficulty with swelling in the extremities. OBJECTIVE: GENERAL: The patient is a 71-year-old female sitting at bedside eating her lunch. She is alert and oriented x3. Mood is good. Affect is good. No acute distress, no respiratory distress. VITAL SIGNS: Temp 36.7, pulse 78, respirations 18, blood pressure is 118/67, pulse ox 96% on 1 liter. HEAD, EYES, EARS, NOSE, AND THROAT: Normocephalic, atraumatic. Pupils equal, round and reactive to light and accommodation. Extraocular movements are intact. Plantation moist gingival and buccal mucosa. NECK: Supple. There is no mass. No adenopathy. No bruit. CHEST: Diminished. Do not really appreciate any wheeze. No rale or rhonchi at this time. Good air movement throughout. CARDIOVASCULAR: Regular rate and rhythm. No murmurs, gallops or rubs. ABDOMEN: Soft, nontender. No guarding, rigidity or organomegaly. EXTREMITIES: No erythema or edema. DATA: No new lab data. No new imaging data. IMPRESSION: This is a 71-year-old female with known COPD who does have a bibasilar pneumonia. At this point, she is improving. At some point, would recommend to get a follow-up chest x-ray. She has been converted over to oral prednisone. Continue antibiotics as they are. Did discuss with her about following up with pulmonary as an outpatient. She is agreeable to doing this. I did give her information about our office and Dr. Mejia's office and advised her to discuss with her PCP. PLAN: At this point, would recommend ambulation. She will need a 2-step prior to discharge. She is to continue the rest of medications and pulmonary toilet as it is. Will continue to follow through hospitalization. Patient and case reviewed and plan agreed upon. VITOR
--- NOTE | 2017-02-21 12:34 | OPERATIVE REPORT ---
DATE OF OPERATION: 02/21/2017 INPATIENT OPERATIVE REPORT PREOPERATIVE DIAGNOSIS: Biventricular implantable cardioverter-defibrillator elective replacement indicator. POSTOPERATIVE DIAGNOSIS: Same. PROCEDURES: 1. Biventricular ICD replacement. 2. TYRX antibiotic pouch placement. SURGEON: Dilip Fernandes MD ANESTHESIA: Local with sedation. HISTORY: This is a 71-year-old woman who has a history of severe ischemic cardiomyopathy with left ventricular dysfunction and congestive heart failure. She also has a longstanding left bundle branch block pattern. She underwent biventricular ICD implantation on 02/21/2012. Her ejection fraction has remained reduced; however, she has had marked improvement in her symptoms. Her ICD has reached replacement time. She was scheduled for an ambulatory procedure today; however, was admitted with pneumonia and GI complaints, she has been treated for that and is now stable for device replacement. DESCRIPTION OF PROCEDURE: After obtaining informed consent for the procedure, she was brought to the operating room on the morning of 02/21/2017 being n.p.o. after midnight. She was identified in the laboratory, prepped and draped in standard sterile manner for a left-sided ICD replacement. The left prepectoral region was anesthetized with 1% lidocaine local anesthetic and a 6-cm incision was made through the implant scar and carried down to the ICD generator. The generator was dissected free of tissue and explanted. The ICD was confirmed to be a Medtronic Protecta XT CRTD, model #T115UYH, serial #[id number]. This device was disconnected from the leads and will be returned to Medtronic. A bacitracin-soaked sponge was placed in the pocket (50,000 units in 50 mL normal saline solution) and the pocket was enlarged in the medial and inferior direction. Hemostasis was obtained and lead evaluation was performed. The atrial lead is a Medtronic, model #5076, serial #[id number], implanted 02/21/2012. This lead was evaluated in bipolar configuration at a pulse width of 0.5 milliseconds, the pacing threshold was 0.5 volts with a current of 0.8 milliamp, 5-volt lead impedance was 490 ohms and diaphragmatic pacing was not evaluated. This is a good measurement and this lead can be used. The right ventricular ICD lead is a Medtronic, model #6947, serial #[id number], implanted 02/21/2012. This lead was evaluated in bipolar configuration at a pulse width of 0.5 milliseconds, the pacing threshold was 0.9 volts with a current of 1.6 milliamp, 5-volt lead impedance was 470 ohms and R waves were sensed at 18.1 millivolts. Diaphragmatic pacing was not evaluated. This is a good threshold and this lead can also be used. The left ventricular lead is a Medtronic, model #4194, serial #[id number], implanted 02/21/2012. This lead was evaluated in the extended bipolar configuration (LV tip to RV coil), the pacing threshold was 1.0 volts with a current of 1.9 milliamp, 5-volt lead impedance is 582 ohms and R waves were sensed at 28.4 millivolts. Diaphragmatic pacing was not evaluated. This is a good lead and this can be used. A new ICD (Medtronic Amplia) was attached to the leads and found to be functioning normally. The device was placed in a TYRX antimicrobial envelope and placed in the pocket. The envelope is a Reference, model #[id number], lot #[id number]. The incision was then closed with a running double subcutaneous closure of 3-0 V-Loc, followed by running subcuticular skin closure of 4-0 V-Loc. A bacitracin ointment was placed on incision and a pressure dressing applied. The patient tolerated the procedure well, there were no complications and estimated blood loss was 20 mL. The patient was transferred to the PACU for monitoring. Details of the explanted pacemaker, chronic leads and the antimicrobial envelope are noted above. The new ICD is a Medtronic, model #[id number], serial #[id number]. This is an MRI compatible device and her atrial and right ventricular leads are MRI compatible, the left ventricular lead is not currently compatible, but the system may be able to be MRI scanned. VITOR
[2017-02-21] MEDS ORDERED: PRED10TA PO (13:54)
[2017-02-21] MEDS ORDERED: SPRIN/30 INH (13:54)
[2017-02-21] MEDS ORDERED: PRVHFAIN INH (13:54)
[2017-02-21] MEDS ORDERED: AMOX1TAB43 PO (13:54)
--- NOTE | 2017-02-21 13:58 | Discharge Instructions ---
Discharge Instructions Date of Service February 21, 2017. Admission Reason for Admission: Copd Exac, N/V Discharge Discharge Diagnosis / Problem: aspiration pneumonia from vomiting causing COPD exacerbation Discharge Goals Goal(s): Diagnostic testing, Therapeutic intervention Activity Recommendations Activity Limitations: resume your previous activity . Instructions / Follow-Up Instructions / Follow-Up a) aspiration pneumonia - this appears to have been due to vomiting - it's improving. we'll finish out 4 more days of antibiotics with augmentin, next dose is tonight b) COPD exacerbation - your COPD flared up due to the aspiration pneumonia - to calm it down we'll finish out a steroid taper (20mg prednisone for 3 more days, then 10mg daily for 3 days). to manage the COPD - we've got you on spiriva once a day every day no matter how you feel; use albuterol up to every four hours as needed for shortness of breath/wheezing. if you still need the albuterol more than once a week in spite of the spiriva (once you're better from the pneumonia) - then they can restart the advair radiology recommends a follow up CT of your chest in about 3 months to ensure everything clears Current Hospital Diet Patient's current hospital diet: AHA Diet (Heart Healthy) Discharge Diet Recommended Diet: Regular Diet Procedures Procedures Performed: Implantable Cardioverter Defibrillator Replacement Pending Studies Studies pending at discharge: no Laboratory Results Hemoglobin A1c Test 02/17/17 07:06 Range/Units Estimated Average Glucose 131 mg/dl Hemoglobin A1c 6.2 H 4.5-5.6 % Lipid Panel Test 01/30/17 13:22 Range/Units Triglycerides Level 59 0-150 mg/dl Cholesterol Level 99 0-200 mg/dl HDL Cholesterol 60 mg/dl Cholesterol/HDL Ratio 1.7 LDL Cholesterol, Calculated 27 mg/dl Medical Emergencies . Who to Call and When: Medical Emergencies: If at any time you feel your situation is an emergency, please call 911 immediately. . Non-Emergent Contact Non-Emergency issues call your: Primary Care Provider . . "Provider Documentation" section prepared by Nahun Luna. . VTE Core Measure Inpt VTE Proph given/why not?: Unfractionated heparin SQ
--- NOTE | 2017-02-21 17:40 | Medical Student: [facility] ---
Med Student Progress Note Date of Service February 21, 2017. Subjective Pt evaluation today including: conversation w/ patient, conversation w/ family (daughter), physical exam, chart review, lab review, review of studies Voiding: no voiding problems, no incontinence Ms Bisi Jameson is a pleasant 71 yo female with a history of COPD and acute aspiration pneumonia on hospital day 6. She is in good spirits today and has been off oxygen since last evening. She is able to rest comfortably and ambulate without sob. She is not craving a cigarette, and knows how important not starting to smoke again is for her [facility]. She underwent defibrillator change this morning by Dr. Fernandes. The procedure was uneventful and she recovered quickly. Her appetite has improved. She denies n/v, shortness of breath at rest or with minimal exertion, chest pain, syncope, dizziness, constipation, diarrhea, or changes in urination. Review of Systems Constitutional: + see HPI Eyes: No problem reported ENT: + sore throat (attributes to thirst (NPO)), No dental problems, No hearing loss, No nasal symptoms, No tinnitus, No trouble swallowing, No unusual epistaxis Respiratory: + cough, + sputum, No dyspnea at rest, No dyspnea on exertion, No shortness of breath Cardiac: No PND, No chest pain, No edema, No orthopnea, No problem reported Abdomen: No problem reported Musculoskeletal: No problem reported Female : No problem reported Neurologic: No problem reported Psychiatric: No problem reported Objective Vital Signs Date Time Temp Pulse Resp B/P Pulse Ox O2 Delivery O2 Flow Rate FiO2 02/21/17 14:33 36.5 85 20 93 Nasal Cannula 02/21/17 14:10 36.5 85 20 115/54 93 Room Air 02/21/17 13:10 37.5 85 18 100/41 90 Room Air 02/21/17 12:41 36.5 80 18 106/64 91 Room Air 02/21/17 12:15 Room Air 02/21/17 12:10 37.0 80 18 109/62 91 Room Air 02/21/17 11:51 36.6 73 14 143/54 98 Nasal Cannula 2 02/21/17 11:46 139/47 02/21/17 11:41 70 14 99 Nasal Cannula 2 02/21/17 11:31 36.7 72 14 140/58 96 Nasal Cannula 2 02/21/17 08:00 Room Air 02/21/17 07:22 81 14 92 Room Air 02/21/17 07:05 36.7 80 20 152/64 92 Room Air 02/21/17 04:04 37.1 77 20 121/63 92 Room Air 02/21/17 04:00 Room Air 02/21/17 00:06 36.6 68 20 135/61 92 Room Air 02/21/17 00:00 Room Air 02/20/17 20:10 36.5 81 20 116/60 94 Room Air 02/20/17 20:00 Room Air 02/20/17 19:02 69 14 92 Room Air Physical Exam Comments: Vitals: See above: General: W/D, W/N elderly female appearing older than her stated age. Resting comfortably, no acute distress. Good color and energy. HEENT: NCAT, EOMI, PERRLA. MMM. Neck supple, trachea midline. No anterior/ posterior cervical lymphadenopathy. CV: S1, S2, RRR. No carotid bruit. Pulm: Lungs clear in upper lobes bilaterally, slight wheeze in L lower lobe. Some cough appreciated during conversation. No rhonchi, rales or crackles. Abd: Soft, nontender, non-distended. No hepatosplenomegally. Starr sounds active. Extremities: No lower extremity edema. No calf tenderness. Neuro: CNII-XII intact, strength 5/5 b/l in upper and lower extremities. Sensation intact upper and lower extremities bilaterally. Laboratory Results Last 24 Hours Test 02/20/17 20:24 02/21/17 07:13 02/21/17 11:42 Bedside Glucose 187 mg/dl 86 mg/dl 113 mg/dl Assessment and Plan Assessment and Plan: Ms Bisi Jameson is a 77 yo female with acute COPD exacerbation due to aspiration pneumonia. She is feeling well without oxygen and is ready to go home. 1. Shortness of breath: Secondary to underlying COPD and aspiration pneumonia. Resolved. Patient currently on 30mg oral prednisone. Will taper with 20x3 and 10x3. Will plan to discharge on tiotropium and long-acting beta agonist albuterol. 2. Aspiration pneumonia: Resolving. Four days of augmentin starting tonight to give ten days total coverage. Can extend at PCP visit early next week. 3. COPD: Chronic. Last pulmonary function tests were done 8 years ago, with an FEV1 of 68% predicted. Her COPD at that time would be considered moderate, and may be severe (by FEV1) by now. Patient continues to smoke 3-4 cigarettes per day, see below for discussion regarding smoking. No longer using O2. Will d/c on daily Spiriva and Albuterol. Follow up CT in 3 months. 4. HTN: BP have been stable and within target range during hospitalization. Will continue on 40mg lisinopril. 5. CHF: Stable. No changes to medications needed. Continue Coreg 25mg BID, Atorvostatin 80mg, Ezetimibe 10mg daily. Furosemide has not been given during stay. Will make PRN. Patient understands to take if her weight goes up by more than 2 pounds overnight. 6. DM: discontinue metform with recommendation of a1c in 3 months. 7. Restless Leg: Patient started on Pramipexole .25mg nightly 8. Nicotine Dependence: Patient smoked 3-4 cigarettes per day, last cigarette 7 days ago. Has tried medication and recently supplement TBXFree which made her feel nauseous. She is contemplative for quitting. Options discussed in detail, as well as replacements for her being a "habit smoker". Reinforced need to not picker another cigarette when she leaves here. 9. UTI: Asymptomatic, grew E.coli, with sensitivity to augmentin, so if not resolved will get 4 more days of coverage anyways. 10. Disposition: Home with home health. Discharge planning: home with home health
--- NOTE | 2017-02-21 21:33 | Discharge Summary ---
Discharge Summary Date of Service February 21, 2017. (Alka. Delaney MD) Discharge Summary Admission Date: February 16, 2017 at 12:11 Discharge Date: February 21, 2017 Discharge Disposition: Home Principal Diagnosis: Aspiration pneumonia Immunizations: Have You Had Influenza Vaccine: Yes Influenza Vaccine Date: Oct 12, 2012 History of Tetanus Vaccine?: Unknown History of Pneumococcal: Unknown History of Hepatitis B Vaccine: No (Alka. Delaney MD) Medication Reconciliation New Medications: Albuterol (Ventolin Hfa) 60 Puffs/5400 Mcg Aers 1 PUFF INH Q4 PRN for SOB/Wheezing, #1 INHALER Prednisone (Prednisone) 10 Mg Tab 10 MG PO UD, #9 TAB 2 po x 3 days then 1 po x 3 days then stop Tiotropium [place] (Spiriva Handihaler) 30 Puff/540 Mcg Aerp 1 CAP INH DAILY, #30 INHALER Amoxicillin & Pot Clavulanate (Amoxicillin/Clavulanate P) 1 Tab Tab 875 MG PO BIDM, #8 TAB Continued Medications: Amlodipine (Norvasc) 5 Mg Tab 7.5 MG PO QPM, TAB Aspirin (Aspirin Chewable) 81 Mg Chew 81 MG PO QPM, TAB Atorvastatin Calcium (Lipitor) 80 Mg Tab 80 MG PO HS, TAB Carvedilol (Coreg) 25 Mg Tab 25 MG PO BID, TAB Clopidogrel Bisulfate (Plavix) 75 Mg Tab 75 MG PO QAM, TAB Ezetimibe (Zetia) 10 Mg Tab 10 MG PO HS, TAB Fish Oil (Manor-3) 1 Ea Cap 1 CAP PO DAILY, CAP Furosemide (Lasix) 20 Mg Tab 40 MG PO QAM, TAB Lisinopril (Zestril) 40 Mg Tab 40 MG PO QAM, TAB Potassium Chloride (Micro-K Ext Rel) 10 Meq Tab 10 MEQ PO BID, TAB Sertraline (Zoloft) 50 Mg Tab 50 MG PO QAM, TAB Discontinued Medications: Albuterol Inhaler (Ventolin Inhaler) Aers 2 PUFFS INH Q4-6H, INHALER Fluticasone Prop/Salmeterol (Advair Diskus 500/50 60 Dose) 1 Ea Aerp 1 PUFF INH BID, INHALER Metformin Hcl (Glucophage) 500 Mg Tab 500 MG PO BID, TAB Discharge Exam Patient feeling much better and not requiring oxygen, even on ambulation. Keen for home. Review of Systems: Constitutional: No chills, No fever Respiratory: No cough, No dyspnea on exertion, No shortness of breath, No wheezing Cardiovascular: No chest pain, No edema, No orthopnea, No palpitations Abdomen: No constipation, No diarrhea, No nausea, No pain, No vomiting Genitourinary - Female: No dysuria, No hematuria Physical Exam: General Appearance: WD/WN, no apparent distress ENT: hearing grossly normal Neck: supple, no adenopathy Respiratory/Chest: lungs clear, normal breath sounds, no respiratory distress, no accessory muscle use Cardiovascular: regular rate, rhythm, no murmur, normal peripheral pulses Abdomen / GI: normal bowel sounds, non tender, soft Extremities: normal inspection, no calf tenderness, normal capillary refill , no pedal edema Neurologic/Psychiatric: alert, normal mood/affect, oriented x 3 Skin: normal color, warm/dry, no rash (Alka. Delaney MD) Hospital Course Patient is a 71 year old female with DM, CAD, CHF, pacemaker placement, HTN, and asthma that presents with complaints of syncope, nausea, vomiting, and shortness of breath. Acute on chronic hypoxic respiratory failure - Multiple factors contributing - Aspiration pneumonia 2/2 vomiting, COPD Exacerbation, CHF - CT Chest 02/16: Cardiomegaly with mild interstitial thickening at the lung bases, favoring mild pulmonary edema, 7 mm ground glass nodule within the right lower lobe - CTA 02/16: Negative for PE, diffuse interstitial thickening likely representing interstitial pulmonary edema, progressive nodular densities within the periphery of the lung bases and progressive airspace opacities within the bilateral lower lobes posteriorly 2/2 to alveolar pulmonary edema or atypical pneumonia, emphysema - Supplemental oxygen was weaned as tolerated, saturating well on RA even with exertion as evident by the 2 step test - [address] follow-up is recommended to ensure resolution Aspiration Pneumonia - Bibasilar lung infiltrates on chest CT - Respiratory status improving. Discontinued empiric azithromycin as not likely to be atypical PNA. Blood cultures negative. - IV Zosyn converted to Augmentin 875mg BID (creatinine normal) - Day 5 - Continue 4 more days of antibiotics on discharge COPD Exacerbation - Shortness of breath improving. Initially put on methylprednisone, atrovent and xopenex. Transitioned to step downs. - Prednisone taper initiated 30mg today x 3 days, 20mg today x 3 days, 10mg today x 3 days, then stop - Discharge home on Spiriva daily and albuterol PRN Acute on Chronic Biventricular Systolic CHF - 2/2 Ischemic Cardiomyopathy. - Has Biventricular pacer. - ECHO 02/17 reduced LV and RV systolic function, severe mitral regurg, EF 25-30% . No significant change compared to ECHO in 11/23 - Lasix held due to dehydration. Continue to hold as no evidence of fluid overload. - Held on discharge, unless patient notices weight gain/edema, or if recommended to restart by PCP/cytotechnologist/cytology supervisor on outpatient follow up Pacemaker - patient due for battery pack replacement. Was scheduled as outpatient for procedure. - Dr. Park to assessed patient stable and performed procedure in scheduled time slot Nausea and Vomiting - likely 2/2 food poisoning. - Abdominal US 02/16: No acute sonographic abnormality is seen in the right upper quadrant. No gallstones are identified. - Symptoms resolved now. - Protonix 40mg qAM and Pepcid 20mg BID not continued on discharge Elevated troponin - ordered in view of persistent abdominal pain. Elevated at 0.121, up from 0.017 from the day prior - Significant history of vascular disease - Inferior myocardial infarction in 1999 and catheterization showed 99% circumflex lesion that could not be successfully opened. - Ischemic cardiomyopathy - EF < 35%. - Biventricular ICD in 2011 - PAD - History Popliteal and SFA angioplasties and right iliofemoral endarterectomy - Carotid artery stenosis - s/p CEA - Stenosis of Mesenteric and Celiac Arteries - Discussed with Dr. Vidales and based on length of symptoms and cardiac enzyme values he does not believe these symptoms are atypical ischemic presentation Syncope - Interrogation in the ED showed no abnormalities. No episodes of syncope during hospitalization. Diabetes Mellitus - HbA1c 6.2 - On Metformin at home - held for admission given dehydration and put on insulin sliding scale - Discontinued on discharge, with plans for repeat HbA1c with PCP in 3 months to determine need to restart metformin UTI - Urine culture grew huang-sensitive E.Coli. Adequately treated with broad spectrum antibiotics for pneumonia. Hypertension - Lisinopril 40mg qAM - Norvasc 7.5mg qPM - Coreg 25mg BID - Lasix Drip - 40mg Daily + Klor-Con 10 meq BID held in view of dehydration Hyperlipidemia - Lipitor 80mg HS PO - Ezetimibe 10mg HS Nicotine Abuse - Nicotine Patch - patient declined - Given smoking cessation advise and encouragement on several occasions. DVT Prophylaxis - Heparin 5,000 units Code Status - Full Resuscitation Total Time Spent: Less than 30 minutes This includes examination of the patient, discharge planning, medication reconciliation, and communication with other providers. (Alka. Delaney MD) Resident Physician 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 Discussed with Dr. Delaney and agree with findings and plan as documented in the note. Any exceptions or clarifications are listed here: None Documented By: Nahun Luna feeling better breathing better less sob off O2! feels up to going home. ros otherwise negative except for as above vitals noted nad breathign unlabored no pallor or icterus a/p vomiting causing aspiration pneumonia creating COPD exacerbation - improving. stable for home. PO abx, steroid taper, spiriva/prn albuterol - close outpt f/u pacer battery changed - see cardiology notes otherwise as above, stable for home Total Time Spent: Less than 30 minutes (Nahun Luna, D.O.) Discharge Instructions Please refer to the electronic Patient Visit Report (Discharge Instructions) for additional information. (Alka. Delaney MD) Additional Copies To RV. Edwards MD Resident Tracking Resident Involvement: Resident Care Provided Care Provided: Adult Hospital Medicine (Alka. Delaney MD)
[2017-03-01] MEDS ORDERED: OMEP40CA41 PO (13:08)
[2017-03-01] MEDS ORDERED: ONDA8TAB62 SL (13:08)
[2017-03-07] MEDS ORDERED: POTA-74 PO (11:28)
[2017-03-11] MEDS ORDERED: LSN5 PO (13:58)
[2017-03-11] MEDS ORDERED: IPRA1AER2 INH (13:58)
[2017-03-11] MEDS ORDERED: LSX20 PO (13:58)
[2017-03-11] MEDS ORDERED: MGNO400 PO (13:58)
[2017-03-11] MEDS ORDERED: SPR25 PO (13:58)
[2017-03-11] MEDS ORDERED: FRRS300 PO (13:58)
[2017-03-11] MEDS ORDERED: POTA-74 PO (13:58)
[2017-03-11] MEDS ORDERED: NYSS5 PO (14:09)
[2017-03-16] MEDS ORDERED: IPRASOL4 INH ×3 (11:12→18:37)
[2017-05-31] MEDS ORDERED: EZET10TA47 PO (07:16)
[2017-05-31] MEDS ORDERED: CLOP1TAB54 PO (07:16)
[2017-05-31] MEDS ORDERED: SERT50TA PO (07:16)
[2017-08-13] MEDS ORDERED: FRS/40 PO (14:55)
== END 2017-02-21 15:04 | disposition home or self-care (01) | DRG 177 ==
LOC: ENRESERVTM → ENRESERVDT → C.EDB 07:55 → C.MED 12:11
PROVIDERS: ADMIT Hospitalist; ATTEND Family Medicine
PROC: 0JW Subcutaneous Tissue and Fascia, Revision (ICD-10-PCS; principal; 2017-02-21 10:00)
DX: J69.0 Pneumonitis due to inhalation of food and vomit (principal); J96.21 Acute and chronic respiratory failure with hypoxia; I50.23 Acute on chronic systolic (congestive) heart failure; J44.1 Chronic obstructive pulmonary disease with (acute) exacerbation; N39.0 Urinary tract infection, site not specified; E78.5 Hyperlipidemia, unspecified; E11.9 Type 2 diabetes mellitus without complications; I10 Essential (primary) hypertension; Z79.82 Long term (current) use of aspirin; Z79.84 Long term (current) use of oral hypoglycemic drugs; Z79.899 Other long term (current) drug therapy; Z95.810 Presence of automatic (implantable) cardiac defibrillator

== ENCOUNTER 2017-02-26 18:55 | Emergency (ER) | payer BC ==
[~2017-02-26] VITALS: Ht 157.5 cm; Wt 45.9 kg
[~2017-02-26 18:55] MED LIST changes: -ADVIN50/60 INH; -ALBUAER19 INH; +AMOX1TAB43 PO; -CHOL400T PO; -LVQ250 PO; -MAGN1CAP2 PO; -METF500T PO; +PRED10TA PO; +PRVHFAIN INH; -SPIR50TA PO; +SPRIN/30 INH
[2017-02-26 18:59] VITALS: Ht 157.5 cm; Wt 45.9 kg
[2017-02-26] MEDS ORDERED: SODIUM CHLORIDE 0.9% 1000ML 250 ML IV STA (19:16)
[2017-02-26] MEDS ORDERED: ONDANSETRON INJ 2 MG/ML 2 ML VIAL IV STA ×2 (19:16→21:01)
[2017-02-26 19:51] LABS: COMPLETE YES; EOS % 0.3 %; HEMATOCRIT 35.9 % (37-47); IG% 0.4 %; LYMPH % 14.8 %; MEAN CELL VOLUME 91.3 fL (80-100); MEAN CORPUSCULAR HEMOGLOBIN 30.8 pg (25-34); MEAN CORPUSCULAR HGB CONC 33.7 g/dl (32-36); MONO % 11.3 %; NEUT % 73.2 %; PLATELET COUNT 216 K/uL (130-400); RED BLOOD COUNT 3.93 M/uL (4.2-5.4); WHITE BLOOD COUNT 9.46 K/uL (4.8-10.8)
[2017-02-26 20:04] LABS: POINT OF CARE TROPONIN I 0.02 ng/ml (0-0.045)
--- NOTE | 2017-02-26 20:04 | DIAGNOSTIC IMAGING REPORT ---
CHEST ONE VIEW PORTABLE HISTORY: Nausea. Atypical CHEST PAIN COMPARISON: Chest 02/16/2017. FINDINGS: The heart remains enlarged. No new focal lung consolidations. Left-sided pacemaker/defibrillator. No pneumothorax. Bibasilar interstitial thickening remains unchanged. This may be chronic. Mild emphysema. No pleural effusions. IMPRESSION: Stable cardiomegaly and mild bibasilar interstitial thickening which is likely chronic. No acute process within the chest. Electronically signed by: Alverto Pereira M.D. 02/26/2017 8:03 PM Dictated Date/Time: 02/26/2017 8:01 PM
[2017-02-26 20:05] LABS: PARTIAL THROMBOPLASTIN RATIO 0.9
[2017-02-26 20:10] LABS: BUN/CREATININE RATIO 25.2 (10-20); CALCIUM 8.6 mg/dl (8.5-10.1); CREATININE 0.97 mg/dl (0.60-1.20); POTASSIUM 4.2 mmol/L (3.5-5.1)
[2017-02-26] MEDS ORDERED: ALUMINUM/MAGNESIUM SUSP 30 ML UDC PO STA (22:16)
[2017-02-26] MEDS ORDERED: ZNT/150 PO (22:21)
[2017-02-26] MEDS ORDERED: RANITIDINE HCL 150 MG TAB PO ONE (22:30)
[2017-02-26 22:34] VITALS: BP 136/60; PULSE 72; TEMP 36.6; O2SAT 93
--- NOTE | 2017-02-27 00:38 | EMERGENCY ROOM VISIT NOTE ---
History Report prepared by Phillip: Carmelita Farooq Under the Supervision of: Dr. Florencio Carmona M.D. First contact with patient: 19:02 Chief Complaint: NAUSEA Stated Complaint: NAUSEA History of Present Illness The patient is a 71 year old female who presents to the Emergency Room with complaints of persistent nausea starting [employer]. She came to the ED 1.5 weeks ago with vomiting. She was admitted in the hospital for 6 days with aspiration pneumonia. She had been feeling better when she was discharged home 5 days ago. Since then she began feeling increasingly nauseous. Her nausea is constant and not worse with eating. She reports vomiting. She went to see her PCP today. She was given medications for the nausea, which have not helped. She denies any cough, SOB, fever, diarrhea, chest pain, headache, sore throat, pain with swallowing, or abdominal pain. She is currently on prednisone. She has never had nausea with prednisone before. She stopped taking her antibiotic thinking it was causing her nausea. She is on Plavix. Her blood sugar has been normal. Source of History: patient, spouse/significant other Onset: [employer] Position: other (global) Quality: other (nausea) Timing: constant, other (persistent) Associated Symptoms: + vomiting, No SOB, No abdominal pain, No chest pain, No cough, No diarrhea, No fevers, No headache, No sorethroat Note: Pt denies pain with swallowing. Review of Systems See HPI for pertinent positives & negatives. A total of 10 systems reviewed and were otherwise negative. Past Medical & Surgical Medical Problems: (1) ANEMIA NOS (2) ASTHMA, UNSPECIFIED (3) Cardiac defibrillator in place (4) CHRONIC KIDNEY DISEASE, UNSPECIFIED (5) copd exac, n/v, (6) CORONARY ATHEROSCLEROSIS OF [place] CORONARY VESSEL (7) DIAB CASPER WO COMPL, TYPE II OR UNSPEC TYPE, NOT UNCNTRLD (8) Hypoxia (9) PURE HYPERCHOLESTEROLEM Old medical records were reviewed. Nurse's notes were reviewed and I agree with. Family History FH: heart disease Hypertension Social History Smoking Status: Current Every Day Smoker Drug Use: none Marital Status: Housing Status: lives with family Occupation Status: retired Current/Historical Medications Scheduled Amlodipine (Norvasc), 7.5 MG PO QPM Aspirin (Aspirin Chewable), 81 MG PO QPM Atorvastatin Calcium (Lipitor), 80 MG PO HS Carvedilol (Coreg), 25 MG PO BID Clopidogrel Bisulfate (Plavix), 75 MG PO QAM Ezetimibe (Zetia), 10 MG PO HS Fish Oil ([place]-3), 1 CAP PO DAILY Furosemide (Lasix), 40 MG PO QAM Lisinopril (Zestril), 40 MG PO QAM Potassium Chloride (Micro-K Ext Rel), 10 MEQ PO BID Prednisone (Prednisone), 10 MG PO UD Ranitidine Hcl (Zantac), 150 MG PO BID Sertraline (Zoloft), 50 MG PO QAM Tiotropium [place] (Spiriva Handihaler), 1 CAP INH DAILY Scheduled PRN Albuterol (Ventolin Hfa), 1 PUFF INH Q4 PRN for SOB/Wheezing Allergies Coded Allergies: Sulfa Antibiotics (Verified Allergy, Intermediate, RASH, 02/16/17) Physical Exam Vital Signs Date Time Temp Pulse Resp B/P Pulse Ox O2 Delivery O2 Flow Rate FiO2 02/26/17 22:34 36.6 72 18 136/60 93 02/26/17 22:28 72 18 136/60 93 02/26/17 20:55 76 16 142/79 92 02/26/17 18:59 36.6 76 16 137/60 95 Room Air Physical Exam General: Mildly uncomfortable appearing older female, no respiratory distress or coughing, breathing comfortably on room air. Normal speech HEENT: Normal cephalic atraumatic. Pupils are equal round and reactive to light. Extraocular movements are intact. Oropharynx is pink with moist mucous membranes. No swelling of the mouth lips or tongue. Neck: Supple with a midline trachea. No meningeal signs or stiffness, no JVD or bruits. No Stridor. Chest: Clear to auscultation bilaterally. No wheezes or rhonchi. No increased work of breathing. Heart: regular rate and rhythm. Abdomen: Soft nontender, nondistended without rebound guarding or rigidity. Extremities: No cyanosis clubbing or edema. No calf tenderness or assymetry Spine/Back. Non tender to palpation. No CVA tenderness Skin: Good turgor without rashes. Neurologic exam: Cranial nerves two through 12 are intact. Motor and sensation are intact and symmetrical throughout. Medical Decision & Procedures ER Provider Diagnostic Interpretation: X-ray results as stated below per interpretation by me and the radiologist: CHEST ONE VIEW PORTABLE HISTORY: Nausea. Atypical CHEST PAIN COMPARISON: Chest 02/16/2017. FINDINGS: The heart remains enlarged. No new focal lung consolidations. Left-sided pacemaker/defibrillator. No pneumothorax. Bibasilar interstitial thickening remains unchanged. This may be chronic. Mild emphysema. No pleural effusions. IMPRESSION: Stable cardiomegaly and mild bibasilar interstitial thickening which is likely chronic. No acute process within the chest. Electronically signed by: Alverto Pereira M.D. 02/26/2017 8:03 PM Dictated Date/Time: 02/26/2017 8:01 PM Laboratory Results 02/26/17 19:41 Red Blood Count 3.93, Mean Corpuscular Volume 91.3, Mean Corpuscular Hemoglobin 30.8, Mean Corpuscular Hemoglobin Concent 33.7, Mean Platelet Volume 9.0, Neutrophils (%) (Auto) 73.2, Lymphocytes (%) (Auto) 14.8, Monocytes (%) (Auto) 11.3, Eosinophils (%) (Auto) 0.3, Basophils (%) (Auto) 0.0, Neutrophils # (Auto ) 6.92, Lymphocytes # (Auto) 1.40, Monocytes # (Auto) 1.07, Eosinophils # (Auto ) 0.03, Basophils # (Auto) 0.00 02/26/17 19:41 Test 02/26/17 19:41 02/26/17 19:44 White Blood Count 9.46 K/uL (4.8-10.8) Red Blood Count 3.93 M/uL (4.2-5.4) Hemoglobin 12.1 g/dL (12.0-16.0) Hematocrit 35.9 % (37-47) Mean Corpuscular Volume 91.3 fL (80-100) Mean Corpuscular Hemoglobin 30.8 pg (25-34) Mean Corpuscular Hemoglobin Concent 33.7 g/dl (32-36) Platelet Count 216 K/uL (130-400) Mean Platelet Volume 9.0 fL (7.4-10.4) Neutrophils (%) (Auto) 73.2 % Lymphocytes (%) (Auto) 14.8 % Monocytes (%) (Auto) 11.3 % Eosinophils (%) (Auto) 0.3 % Basophils (%) (Auto) 0.0 % Neutrophils # (Auto) 6.92 K/uL (1.4-6.5) Lymphocytes # (Auto) 1.40 K/uL (1.2-3.4) Monocytes # (Auto) 1.07 K/uL (0.11-0.59) Eosinophils # (Auto) 0.03 K/uL (0-0.5) Basophils # (Auto) 0.00 K/uL (0-0.2) RDW Standard Deviation 51.2 fL (36.4-46.3) RDW Coefficient of Variation 15.1 % (11.5-14.5) Immature Granulocyte % (Auto) 0.4 % Immature Granulocyte # (Auto) 0.04 K/uL (0.00-0.02) Prothrombin Time 11.0 SECONDS (9.0-12.0) Prothromb Time International Ratio 1.0 (0.9-1.1) Activated Partial Thromboplast Time 24.3 SECONDS (21.0-31.0) Partial Thromboplastin Ratio 0.9 Anion Gap 6.0 mmol/L (3-11) Est Creatinine Clear Calc Drug Dose 38.0 ml/min Estimated GFR () 67.6 Estimated GFR (Non- 58.3 BUN/Creatinine Ratio 25.2 (10-20) Calcium Level 8.6 mg/dl (8.5-10.1) Total Bilirubin 0.6 mg/dl (0.2-1) Direct Bilirubin 0.2 mg/dl (0-0.2) Aspartate Amino Transf (AST/SGOT) 16 U/L (15-37) Alanine Aminotransferase (ALT/SGPT) 28 U/L (12-78) Alkaline Phosphatase 53 U/L (45-117) Total Protein 6.7 gm/dl (6.4-8.2) Albumin 3.3 gm/dl (3.4-5.0) Lipase 120 U/L (73-393) Bedside Troponin I 0.020 ng/ml (0-0.045) ZT-Grg-N-Type Natriuretic Peptide 3822 pg/ml (0-900) Laboratory studies as stated above per my review. Medications Administered Medications (Trade) Dose Ordered Sig/Osmani Route Start Time Stop Time Status Last Admin Dose Admin Sodium Chloride (Nss 1000ml) 250 ml @ 999 mls/hr Q16M STAT IV 02/26/17 19:16 02/26/17 19:31 DC 02/26/17 19:16 999 MLS/HR Ondansetron HCl (Zofran Inj) 4 mg NOW STAT IV 02/26/17 19:16 02/26/17 19:18 DC 02/26/17 19:16 4 MG Ondansetron HCl (Zofran Inj) 4 mg NOW STAT IV 02/26/17 21:01 02/26/17 21:02 DC 02/26/17 21:01 4 MG Al Hydroxide/Mg Hydroxide (Maalox Susp) 30 ml NOW STAT PO 02/26/17 22:16 02/26/17 22:17 DC 02/26/17 22:25 30 ML Ranitidine HCl (zANTac TAB) 150 mg NOW ONCE PO 02/26/17 22:30 02/26/17 22:31 DC 02/26/17 22:25 150 MG ECG Indication: nausea Rate (beats per minute): 75 Rhythm: other (atrial sensed ventricular paced) Findings: no acute ischemic change Comparison ECG Date: 21-Feb-2017 Change: no significant change ED Course 1906: Past medical records reviewed. The patient was evaluated in room A3, and a complete history and physical examination were performed. 191: Zofran Inj 4 mg IV, NSS 250 ml @ 999 mls/hr IV. 2100: I reevaluated the patient. She is doing better, but still nauseous. She will be given more Zofran. 2100: Zofran Inj 4 mg IV. 2210: Upon reevaluation, the patient is starting to feel better, but still nauseous. I will get some Maalox and Zantac. I discussed the results and treatment plan with her. I offered her admission, but she does not want to stay. She will follow up with her PCP tomorrow. She verbalized agreement of the treatment plan. The patient was discharged home. 2215: Maalox Susp 30 ml PO. 2229: Ranitidine HCl 150 mg PO. Medical Decision Differentials include, but are not limited to; nausea, dehydration, CHF, acute coronary syndrome, pancreatitis, medication side effect, anemia. This patient comes in as described above. She is placed in room A3. She is complaining of nausea. She was just recently the hospital after having similar complaints but also had aspiration pneumonia and other issues. During that stay she had a CAT scan of her chest and abdomen as well. She says she is feeling better and the other regards. She has been on prednisone and antibiotics possible these could've upset her stomach. She is no blood in her stool she's had normal bowel movements she has no abdominal pain she's no chest pain or shortness of breath she had her pacemaker battery changed recently when she was in the hospital as well. IV access established chest x-ray was obtained multiple blood tests was obtained. Chest x-ray does not show any congestive heart failure acutely or pneumonia or pneumothorax. EKG shows a paced rhythm but no definite ischemic changes her troponin is not elevated. She has no acute electrode or metabolic abnormalities. She has Nothing to suggest that she has pancreatitis. She was given gentle IV hydration as well as Zofran 4 mg IV. She did receive additional IV Zofran as well as Maalox and Zantac. She was feeling somewhat better. I talked to her at length and I offered admission but she declined she would rather go home. I think most likely is related to stomach and to be gastritis related to medications and do not think is likely cardiac. I had discussed discussion with her and again she wants to go home. I encouraged her to use her antinausea medicine and wrote a prescription for Zantac as well. She was encouraged to follow with her doctor tomorrow for recheck or return if: increasing pain, worsening of symptoms, not tolerating fluids, any new problems concerns. She is happy with plan and discharged to home. Impression Primary Impression: Nausea Scribe Attestation The scribe's documentation has been prepared under my direction and personally reviewed by me in its entirety. I confirm that the note above accurately reflects all work, treatment, procedures, and medical decision making performed by me. Departure Information Dispostion Home / Self-Care Prescriptions Ranitidine Hcl (ZANTAC) 150 Mg Tab 150 MG PO BID, #20 TAB Prov: Florencio Carmona M.D. 02/26/17 Referrals RV. Edwards MD (PCP) Forms HOME CARE DOCUMENTATION FORM, IMPORTANT VISIT INFORMATION Patient Instructions My [facility] Additional Instructions Rest Drink plenty of fluids Return if: Worsening of symptoms, not tolerating fluids, chest pain, fever chills, abdominal pain any new problems or concerns Continue to use your antinausea medicine if needed May use Zantac 150 mg twice a daystomach pill May also use [id number] Maalox Follow-up with your doctor tommorrow for recheck
[2017-03-01] MEDS ORDERED: ONDA8TAB62 SL (13:08)
[2017-03-01] MEDS ORDERED: OMEP40CA41 PO (13:08)
[2017-03-07] MEDS ORDERED: POTA-74 PO (11:28)
[2017-03-11] MEDS ORDERED: LSX20 PO (13:58)
[2017-03-11] MEDS ORDERED: LSN5 PO (13:58)
[2017-03-11] MEDS ORDERED: IPRA1AER2 INH (13:58)
[2017-03-11] MEDS ORDERED: POTA-74 PO (13:58)
[2017-03-11] MEDS ORDERED: SPR25 PO (13:58)
[2017-03-11] MEDS ORDERED: MGNO400 PO (13:58)
[2017-03-11] MEDS ORDERED: FRRS300 PO (13:58)
[2017-03-11] MEDS ORDERED: NYSS5 PO (14:09)
[2017-03-16] MEDS ORDERED: IPRASOL4 INH ×3 (11:12→18:37)
[2017-05-31] MEDS ORDERED: EZET10TA47 PO (07:16)
[2017-05-31] MEDS ORDERED: SERT50TA PO (07:16)
[2017-05-31] MEDS ORDERED: CLOP1TAB54 PO (07:16)
[2017-08-13] MEDS ORDERED: FRS/40 PO (14:55)
== END 2017-02-26 22:36 | disposition home or self-care (01) ==
LOC: C.EDB 18:56 → C.EDA 22:36
DX: R11.2 Nausea with vomiting, unspecified (principal); J45.909 Unspecified asthma, uncomplicated; N18.9 Chronic kidney disease, unspecified; I25.10 Atherosclerotic heart disease of native coronary artery without angina pectoris; E11.22 Type 2 diabetes mellitus with diabetic chronic kidney disease; E78.00 Pure hypercholesterolemia, unspecified; F17.200 Nicotine dependence, unspecified, uncomplicated; Z87.01 Personal history of pneumonia (recurrent); Z95.810 Presence of automatic (implantable) cardiac defibrillator; Z82.49 Family history of ischemic heart disease and other diseases of the circulatory system; Z79.02 Long term (current) use of antithrombotics/antiplatelets; Z79.52 Long term (current) use of systemic steroids; Z79.82 Long term (current) use of aspirin; Z79.899 Other long term (current) drug therapy

== ENCOUNTER 2017-02-28 10:31 | Observation (INO) | payer BC ==
[~2017-02-28] VITALS: Ht 157.5 cm; Wt 50.3 kg
[~2017-02-28 10:31] MED LIST changes: -AMOX1TAB43 PO; +ZNT/150 PO
[2017-02-28] MEDS ORDERED: ONDANSETRON INJ 2 MG/ML 2 ML VIAL IV STA (11:14)
[2017-02-28] MEDS ORDERED: AMOX875T PO (11:28)
[2017-02-28] MEDS ORDERED: SODIUM CHLORIDE 0.9% 1000ML 1,000 ML IV ONE (12:00)
--- NOTE | 2017-02-28 12:13 | EMERGENCY ROOM VISIT NOTE ---
History Report prepared by Phillip: Briseyda Becerra Under the Supervision of: Dr. Ta Palomares M.D. First contact with patient: 11:48 Chief Complaint: NAUSEA Stated Complaint: NAUSEA, VOMITING Nursing Triage Summary: "I have been sick in the stomach for the past week or week and a half. There is something going on with my stomach and it isnt getting better" History of Present Illness The patient is a 71 year old female who presents to the Emergency Room with complaints of intermittent nausea that began several days ago. The patient states that she was recently evaluated in the hospital for six days for pneumonia. She states that she was discharged one week ago. The patient denies being nauseous upon discharge from the hospital. She states that she was placed on Prednisone and Augmentin for her symptoms, stating that she finished the Prednisone on Saturday. The patient states that she stopped taking the Augmentin over the weekend, because she thought that her nausea and vomiting was related to the medication. She states that she was evaluated by her PCP and was placed on Zofran for her symptoms. The patient states that she has not been able to keep the medication down. She states that she was evaluated in the emergency department on Saturday for similar symptoms. The patient additionally reports that upon discharge from the hospital she was placed on Zantac. She states that she has still been coughing, but denies any fever. Source of History: patient Onset: several days ago Position: other (global) Quality: other (nausea) Timing: intermittent Associated Symptoms: + cough, + vomiting, No fevers Review of Systems All systems have been listed, reviewed, and are negative other than those previously mentioned. Please see Additional Medical History Sheet. Past Medical & Surgical Medical Problems: (1) ANEMIA NOS (2) ASTHMA, UNSPECIFIED (3) Cardiac defibrillator in place (4) CHRONIC KIDNEY DISEASE, UNSPECIFIED (5) copd exac, n/v, (6) CORONARY ATHEROSCLEROSIS OF [place] CORONARY VESSEL (7) DIAB CASPER WO COMPL, TYPE II OR UNSPEC TYPE, NOT UNCNTRLD (8) Hypoxia (9) PURE HYPERCHOLESTEROLEM Family History Diabetes mellitus FH: heart disease Hypertension Kidney disease Kidney stones Lung disease Social History Smoking Status: Never Smoker Alcohol Use: occasionally Drug Use: none Marital Status: Housing Status: lives with family Occupation Status: retired Current/Historical Medications Scheduled Amlodipine (Norvasc), 7.5 MG PO QPM Amoxicillin & Pot Clavulanate (Augmentin 875-125 mg), 1 TAB PO BIDM Aspirin (Aspirin Chewable), 81 MG PO QPM Atorvastatin Calcium (Lipitor), 80 MG PO HS Carvedilol (Coreg), 25 MG PO BID Clopidogrel Bisulfate (Plavix), 75 MG PO QAM Ezetimibe (Zetia), 10 MG PO HS Fish Oil ([place]-3), 1 CAP PO DAILY Furosemide (Lasix), 40 MG PO QAM Lisinopril (Zestril), 40 MG PO QAM Potassium Chloride (Potassium Chloride Er), 1 TAB PO BID Prednisone (Prednisone), 10 MG PO UD Ranitidine Hcl (Zantac), 150 MG PO BID Sertraline (Zoloft), 50 MG PO QAM Tiotropium [place] (Spiriva Handihaler), 1 CAP INH DAILY Allergies Coded Allergies: Sulfa Antibiotics (Verified Allergy, Intermediate, RASH, 02/16/17) Physical Exam Vital Signs Date Time Temp Pulse Resp B/P Pulse Ox O2 Delivery O2 Flow Rate FiO2 02/28/17 12:30 68 18 144/61 92 Room Air 02/28/17 10:35 36.7 75 18 127/52 97 Room Air Physical Exam GENERAL: Patient awake, alert, oriented x 3. Patient follows commands. Patient does not appear toxic. Patient is adequately hydrated and well- nourished. SKIN: No erythema, pallor, cyanosis or rash HEENT: Normal head, pupils equal, reactive to light and accommodation. Increased wax in left ear. Oral cavity and posterior pharynx appear normal. Neck: Without adenopathy, no neck vein distention. LUNGS: Clear to auscultation. No wheezes, no rales, no rhonchi. HEART: No murmurs. No gallops. No rubs CHEST: Pacemaker left upper chest. Site is still ecchymotic. ABDOMEN: Vague mid abdominal tenderness. No masses, no rebound, no hepatomegaly or splenomegaly. EXTREMITIES: Multiple bruises on arms from previous phlebotomies. No pedal or pretibial edema. No calf or thigh tenderness. NEUROLOGIC: Cranial nerves II-XII within normal limits. No gross motor sensory function deficits. Medical Decision & Procedures Laboratory Results 02/28/17 11:00 Red Blood Count 3.77, Mean Corpuscular Volume 91.5, Mean Corpuscular Hemoglobin 31.3, Mean Corpuscular Hemoglobin Concent 34.2, Mean Platelet Volume 9.9, Neutrophils (%) (Auto) 87.6, Lymphocytes (%) (Auto) 5.5, Monocytes (%) (Auto) 6.1, Eosinophils (%) (Auto) 0.3, Basophils (%) (Auto) 0.1, Neutrophils # (Auto) 14.45, Lymphocytes # (Auto) 0.91, Monocytes # (Auto) 1.00, Eosinophils # (Auto) 0.05, Basophils # (Auto) 0.01 02/28/17 11:00 Test 02/28/17 11:00 02/28/17 12:25 White Blood Count 16.49 K/uL (4.8-10.8) Red Blood Count 3.77 M/uL (4.2-5.4) Hemoglobin 11.8 g/dL (12.0-16.0) Hematocrit 34.5 % (37-47) Mean Corpuscular Volume 91.5 fL (80-100) Mean Corpuscular Hemoglobin 31.3 pg (25-34) Mean Corpuscular Hemoglobin Concent 34.2 g/dl (32-36) Platelet Count 214 K/uL (130-400) Mean Platelet Volume 9.9 fL (7.4-10.4) Neutrophils (%) (Auto) 87.6 % Lymphocytes (%) (Auto) 5.5 % Monocytes (%) (Auto) 6.1 % Eosinophils (%) (Auto) 0.3 % Basophils (%) (Auto) 0.1 % Neutrophils # (Auto) 14.45 K/uL (1.4-6.5) Lymphocytes # (Auto) 0.91 K/uL (1.2-3.4) Monocytes # (Auto) 1.00 K/uL (0.11-0.59) Eosinophils # (Auto) 0.05 K/uL (0-0.5) Basophils # (Auto) 0.01 K/uL (0-0.2) RDW Standard Deviation 50.5 fL (36.4-46.3) RDW Coefficient of Variation 15.1 % (11.5-14.5) Immature Granulocyte % (Auto) 0.4 % Immature Granulocyte # (Auto) 0.07 K/uL (0.00-0.02) Anion Gap 2.0 mmol/L (3-11) Est Creatinine Clear Calc Drug Dose 36.6 ml/min Estimated GFR () 58.1 Estimated GFR (Non- 50.1 BUN/Creatinine Ratio 21.5 (10-20) Calcium Level 8.5 mg/dl (8.5-10.1) Total Bilirubin 0.7 mg/dl (0.2-1) Aspartate Amino Transf (AST/SGOT) 15 U/L (15-37) Alanine Aminotransferase (ALT/SGPT) 24 U/L (12-78) Alkaline Phosphatase 64 U/L (45-117) Total Protein 6.6 gm/dl (6.4-8.2) Albumin 3.3 gm/dl (3.4-5.0) Globulin 3.3 gm/dl (2.5-4.0) Albumin/Globulin Ratio 1.0 (0.9-2) Lipase 137 U/L (73-393) Urine Color YELLOW Urine Appearance CLOUDY (CLEAR) Urine pH >= 9.0 (4.5-7.5) Urine Specific [place] 1.014 (1.000-1.030) Urine Protein NEG (NEG) Urine Glucose (UA) NEG (NEG) Urine Ketones NEG (NEG) Urine Occult Blood NEG (NEG) Urine Nitrite NEG (NEG) Urine Bilirubin NEG (NEG) Urine Urobilinogen NEG (NEG) Urine Leukocyte Esterase NEG (NEG) Urine WBC (Auto) 0 /hpf (0-5) Urine RBC (Auto) 0-4 /hpf (0-4) Urine Hyaline Casts (Auto) 0 /lpf (0-5) Urine Epithelial Cells (Auto) 5-10 /lpf (0-5) Urine Bacteria (Auto) NEG (NEG) Laboratory results as stated above per my review. Medications Administered Medications (Trade) Dose Ordered Sig/Osmani Route Start Time Stop Time Status Last Admin Dose Admin Ondansetron HCl 4 mg 4 mg NOW STAT IV 02/28/17 11:14 02/28/17 11:16 DC 02/28/17 11:14 4 MG Sodium Chloride 1,000 ml @ 1,000 mls/hr Q1H ONCE IV 02/28/17 12:00 02/28/17 12:59 DC 02/28/17 12:00 1,000 MLS/HR Promethazine HCl/ Sodium Chloride (Phenergan Inj/ Nss 50ml) 50.5 ml @ 204 mls/hr NOW STAT IV 02/28/17 13:02 02/28/17 13:16 DC 02/28/17 13:12 204 MLS/HR ECG Indication: nausea, vomiting Rate (beats per minute): 62 Rhythm: other (atrial sensed, ventricular paced) Findings: no acute ischemic change, no ectopy ED Course 1114: Ordered Zofran Inj 4 mg IV. 1154: Past medical records reviewed. The patient was evaluated in room C7. A complete history and physical examination was performed. 1200: Ordered Sodium Chloride 1000 ml @ 1000 mls/hr IV. 1302: Ordered Promethazine HCl 12.5 mg/Sodium Chloride 50.5 ml @ 204 mls/hr IV. 1326: I reevaluated the patient and she is very sleepy due to the Phenergan. I discussed the exam findings with her and her daughter and I discussed the treatment plan. They verbalized complete understanding and agreement. The patient will be evaluated for further treatment. 1333: I discussed the patients case with LEE Joy. She is going to evaluate the patient for further treatment. Medical Decision Nurses notes reviewed. Medical history sheet reviewed. Differential diagnosis includes but is not limited to: Acute gastritis, gastroenteritis, medication reaction, peptic/gastric ulcer disease. The patient was recently discharged from the hospital following a bout of pneumonia. She also had a pacemaker change recently. She continues to complain of persistent nausea and vomiting. She was here 2 days ago with the same. She has difficulty holding anything down. The patient had been on Augmentin and prednisone. The patient may have gastritis secondary to his medications. She also has diabetes. The patient may have gastroparesis. In either case, the patient is unable to hold down significant amount of liquids or food and therefore will require further evaluation the hospital. Multiple labs were obtained. Please see above. White count is elevated which may be indicative of infection or may be related to her recent use of prednisone. I discussed care with the patient, daughter and the hospitalist. Consults Time Called: [phone] Consulting Physician: LEE Joy Returned Call: [phone] I discussed the patients case with LEE Joy. She is going to evaluate the patient for further treatment. Impression Primary Impression: Intractable nausea and vomiting Additional Impressions: Hyponatremia Anemia Scribe Attestation The scribe's documentation has been prepared under my direction and personally reviewed by me in its entirety. I confirm that the note above accurately reflects all work, treatment, procedures, and medical decision making performed by me. Departure Information Dispostion Being Evaluated By Hospitalist Referrals No Doctor, Assigned (PCP) Problem Qualifiers
[2017-02-28 12:25] LABS: BASO % 0.1 %; BASO ABS # 0.01 K/uL (0-0.2); COMPLETE YES; EOS % 0.3 %; HEMATOCRIT 34.5 % (37-47); IG% 0.4 %; LYMPH % 5.5 %; LYMPH ABS # 0.91 K/uL (1.2-3.4); MEAN CELL VOLUME 91.5 fL (80-100); MEAN CORPUSCULAR HEMOGLOBIN 31.3 pg (25-34); MEAN CORPUSCULAR HGB CONC 34.2 g/dl (32-36); MEAN PLATELET VOLUME 9.9 fL (7.4-10.4); MONO % 6.1 %; NEUT % 87.6 %; PLATELET COUNT 214 K/uL (130-400); RED BLOOD COUNT 3.77 M/uL (4.2-5.4); WHITE BLOOD COUNT 16.49 K/uL (4.8-10.8)
[2017-02-28 12:31] LABS: BUN/CREATININE RATIO 21.5 (10-20); CALCIUM 8.5 mg/dl (8.5-10.1); CREATININE 1.1 mg/dl (0.60-1.20); POTASSIUM 4.5 mmol/L (3.5-5.1)
[2017-02-28] MEDS ORDERED: PROMETHAZINE HCL INJ 12.5 MG in SODIUM CHLORIDE 0.9% 50ML 50 ML IV STA (13:02)
[2017-02-28 13:14] LABS: URINE APPEARANCE CLOUDY (CLEAR); URINE BILIRUBIN NEG (NEG); URINE COLOR YELLOW; URINE NITRITE NEG (NEG); URINE PH >= 9.0 (4.5-7.5); URINE SPECIFIC GRAVITY 1.014 (1.000-1.030); UROBILINOGEN NEG (NEG); ZZURINE CULT IF INDIC CATH NO
[2017-02-28 13:22] LABS: MANUAL MICROSCOPIC REQUIRED? NO; REVIEW REQ? NO
[2017-02-28] MEDS ORDERED: ACETAMINOPHEN 325 MG TAB PO PRN (15:45)
[2017-02-28] MEDS ORDERED: ONDANSETRON INJ 2 MG/ML 2 ML VIAL IV PRN (15:45)
[2017-02-28] MEDS ORDERED: ALUMINUM/MAGNESIUM/SIMETH (MAALOX MAX) 30 ML UDC PO PRN (15:45)
[2017-02-28 16:28] VITALS: O2SAT 92
[2017-02-28] MEDS ORDERED: IV FLUIDS COMPLETED PRN (16:30)
--- NOTE | 2017-02-28 16:32 | History and Physical ---
History & Physical Date & Time of Service: February 28, 2017 at 16:31 Chief Complaint: Nausea, Vomiting Primary Care Physician: RV. Edwards MD History of Present Illness Source: patient, family 71-year-old female with a past medical history of diabetes, coronary artery disease, CHF, hyperlipidemia, hypertension, asthma presented to the ER with complaints of intermittent nausea that began several days ago. She was admitted at [facility] from 02/16-02/21 for aspiration pneumonia secondary to vomiting. She was discharged with prednisone and Augmentin. She finished her course of prednisone but had stopped taking Augmentin over the weekend assuming her symptoms were secondary to medication. She states that she has had issues with nausea for several months now but had gotten better and worsened again. She was recently seen in the ER a few days ago for similar symptoms. She was also seen by her PCP who had recommended Zofran but she states that she could not keep it down. Denies any abdominal pain, fevers or chills, diarrhea or constipation. Denies any urinary symptoms like hematuria, frequency, dysuria. Denies any chest pain, shortness of breath, lightheadedness or dizziness, headaches Past Medical/Surgical History Medical Problems: (1) ANEMIA NOS Status: Chronic (2) ASTHMA, UNSPECIFIED Status: Chronic (3) Cardiac defibrillator in place Status: Chronic (4) CHRONIC KIDNEY DISEASE, UNSPECIFIED Status: Chronic (5) CORONARY ATHEROSCLEROSIS OF [place] CORONARY VESSEL Status: Chronic (6) DIAB CASPER WO COMPL, TYPE II OR UNSPEC TYPE, NOT UNCNTRLD Status: Chronic (7) PURE HYPERCHOLESTEROLEM Status: Chronic Family History Diabetes mellitus FH: heart disease Hypertension Kidney disease Kidney stones Lung disease Social History Smoking Status: Never Smoker Drug Use: none Marital Status: Housing status: lives with family Occupational Status: retired Immunizations History of Influenza Vaccine: Yes Influenza Vaccine Date: Oct 12, 2012 History of Tetanus Vaccine?: Unknown History of Pneumococcal: Unknown History of Hepatitis B Vaccine: No Multi-Drug Resistant Organisms History of MDRO: No Allergies Coded Allergies: Sulfa Antibiotics (Verified Allergy, Intermediate, RASH, 02/16/17) Home Medications Scheduled Amlodipine (Norvasc), 7.5 MG PO QPM Amoxicillin & Pot Clavulanate (Augmentin 875-125 mg), 1 TAB PO BIDM Aspirin (Aspirin Chewable), 81 MG PO QPM Atorvastatin Calcium (Lipitor), 80 MG PO HS Carvedilol (Coreg), 25 MG PO BID Clopidogrel Bisulfate (Plavix), 75 MG PO QAM Ezetimibe (Zetia), 10 MG PO HS Fish Oil ([place]), 1 CAP PO DAILY Furosemide (Lasix), 40 MG PO QAM Lisinopril (Zestril), 40 MG PO QAM Potassium Chloride (Potassium Chloride Er), 1 TAB PO BID Prednisone (Prednisone), 10 MG PO UD Ranitidine Hcl (Zantac), 150 MG PO BID Sertraline (Zoloft), 50 MG PO QAM Tiotropium [place] (Spiriva Handihaler), 1 CAP INH DAILY Review of Systems Constitutional: No chills, No fever Eyes: No worsening of vision ENT: No hearing loss Respiratory: No cough, No shortness of breath, No sputum Cardiovascular: No chest pain Abdomen: + nausea, + vomiting, No diarrhea, No pain Musculoskeletal: No joint pain Genitourinary - Female: No dysuria, No urinary frequency, No urinary incontinence, No urinary urgency Neurologic: No memory loss, No paralysis Psychiatric: No depression symptoms Endocrine: No fatigue Hematologic / Lymphatic: No abnormal bleeding/bruising Physical Exam Vital Signs Date Time Temp Pulse Resp B/P Pulse Ox O2 Delivery O2 Flow Rate FiO2 02/28/17 16:28 71 16 155/64 92 Nasal Cannula 02/28/17 14:59 94 Nasal Cannula 2.0 02/28/17 14:30 70 16 112/44 Room Air 02/28/17 12:30 68 18 144/61 92 Room Air 02/28/17 10:35 36.7 75 18 127/52 97 Room Air General Appearance: WD/WN, no apparent distress Head: normocephalic Eyes: normal inspection ENT: normal ENT inspection, hearing grossly normal Neck: supple Respiratory/Chest: chest non-tender, lungs clear, normal breath sounds, no respiratory distress, no accessory muscle use Cardiovascular: regular rate, rhythm Abdomen/GI: normal bowel sounds, soft Extremities/Musculoskelatal: no pedal edema Neurologic/Psych: alert, normal mood/affect, oriented x 3 Skin: normal color Diagnostics Laboratory Results Results Past 24 Hours Test 02/28/17 11:00 02/28/17 12:25 Range/Units White Blood Count 16.49 4.8-10.8 K/uL Red Blood Count 3.77 4.2-5.4 M/uL Hemoglobin 11.8 12.0-16.0 g/dL Hematocrit 34.5 37-47 % Mean Corpuscular Volume 91.5 80-100 fL Mean Corpuscular Hemoglobin 31.3 25-34 pg Mean Corpuscular Hemoglobin Concent 34.2 32-36 g/dl Platelet Count 214 130-400 K/uL Mean Platelet Volume 9.9 7.4-10.4 fL Neutrophils (%) (Auto) 87.6 % Lymphocytes (%) (Auto) 5.5 % Monocytes (%) (Auto) 6.1 % Eosinophils (%) (Auto) 0.3 % Basophils (%) (Auto) 0.1 % Neutrophils # (Auto) 14.45 1.4-6.5 K/uL Lymphocytes # (Auto) 0.91 1.2-3.4 K/uL Monocytes # (Auto) 1.00 0.11-0.59 K/uL Eosinophils # (Auto) 0.05 0-0.5 K/uL Basophils # (Auto) 0.01 0-0.2 K/uL RDW Standard Deviation 50.5 36.4-46.3 fL RDW Coefficient of Variation 15.1 11.5-14.5 % Immature Granulocyte % (Auto) 0.4 % Immature Granulocyte # (Auto) 0.07 0.00-0.02 K/uL Sodium Level 132 136-145 mmol/L Potassium Level 4.5 3.5-5.1 mmol/L Chloride Level 96 98-107 mmol/L Carbon Dioxide Level 34 21-32 mmol/L Anion Gap 2.0 3-11 mmol/L Blood Urea Nitrogen 24 7-18 mg/dl Creatinine 1.10 0.60-1.20 mg/dl Est Creatinine Clear Calc Drug Dose 36.6 ml/min Estimated GFR () 58.1 Estimated GFR (Non- 50.1 BUN/Creatinine Ratio 21.5 10-20 Random Glucose 133 70-99 mg/dl Calcium Level 8.5 8.5-10.1 mg/dl Total Bilirubin 0.7 0.2-1 mg/dl Aspartate Amino Transf (AST/SGOT) 15 15-37 U/L Alanine Aminotransferase (ALT/SGPT) 24 12-78 U/L Alkaline Phosphatase 64 45-117 U/L Total Protein 6.6 6.4-8.2 gm/dl Albumin 3.3 3.4-5.0 gm/dl Globulin 3.3 2.5-4.0 gm/dl Albumin/Globulin Ratio 1.0 0.9-2 Lipase 137 73-393 U/L Urine Color YELLOW Urine Appearance CLOUDY CLEAR Urine pH >= 9.0 4.5-7.5 Urine Specific [place] 1.014 1.000-1.030 Urine Protein NEG NEG Urine Glucose (UA) NEG NEG Urine Ketones NEG NEG Urine Occult Blood NEG NEG Urine Nitrite NEG NEG Urine Bilirubin NEG NEG Urine Urobilinogen NEG NEG Urine Leukocyte Esterase NEG NEG Urine WBC (Auto) 0 0-5 /hpf Urine RBC (Auto) 0-4 0-4 /hpf Urine Hyaline Casts (Auto) 0 0-5 /lpf Urine Epithelial Cells (Auto) 5-10 0-5 /lpf Urine Bacteria (Auto) NEG NEG Diagnostic Radiology [~ rep ct add3]] CHEST ONE VIEW PORTABLE HISTORY: Nausea. Atypical CHEST PAIN COMPARISON: Chest 02/16/2017. FINDINGS: The heart remains enlarged. No new focal lung consolidations. Left-sided pacemaker/defibrillator. No pneumothorax. Bibasilar interstitial thickening remains unchanged. This may be chronic. Mild emphysema. No pleural effusions. IMPRESSION: Stable cardiomegaly and mild bibasilar interstitial thickening which is likely chronic. No acute process within the chest. EKG Atrial-sensed ventricular-paced rhythm Biventricular pacemaker detected Abnormal ECG When compared with ECG of 26-FEB-2017 19:23, Vent. rate has decreased BY 13 BPM Confirmed by GUILLERMO ALEXANDER ([id number]) on 02/28/2017 2:47:15 PM Impression Assessment and Plan 71-year-old female with past medical history of diabetes, coronary artery disease, congestive heart failure, pacemaker placement, hypertension, asthma presented to the ER with complaints of persistent and intractable nausea and vomiting which worsened over the last few days . Has had nausea for several months now which will need an outpatient workup. Patient was admitted for IV hydration and observation overnight. Intractable nausea and vomiting: - Received a bolus of NSS in the ER with Phenergan - Abdominal US 02/16: No acute sonographic abnormality is seen in the right upper quadrant. No gallstones are identified. -Gentle hydration and Zofran 4 mg SL every 4 hours as needed. If unable to tolerate by mouth, Zofran 4 mg IV every 4 hours History of COPD - CXR: Stable cardiomegaly and mild bibasilar interstitial thickening which is likely chronic. No acute process within the chest. - Continue inhalers- spiriva and albuterol - O2 by protocol - 7 mm groundglass nodule within the right lower lobe found on chest CT 02/16, to be followed up as an outpatient Chronic systolic congestive heart failure: Stable - History of ischemic cardiomyopathy status post biventricular pacer, Battery replaced during previous admission Diabetes Mellitus - HbA1c 6.2 -Was on metformin which was discontinued during last admission - Monitor blood sugars and may add ISS Hypertension - Lisinopril 40mg qAM - Norvasc 7.5mg qPM - Coreg 25mg BID Hyperlipidemia - Lipitor 80mg HS PO - Ezetimibe 10mg HS DVT Prophylaxis - Heparin 5,000 units Full code Disposition: Observation in med/surg Level of Care Med/Surg Advanced Directives Existing Living Will: Yes Resuscitation Status FULL RESUSCITATION VTE Prophylaxis VTE Risk Assessment Done? Y/N: Yes Risk Level: Moderate Given or contraindicated: Unfractionated heparin SQ, SCD's Resident Tracking Resident Involvement: Resident Care Provided Care Provided: Adult Hospital Medicine History Resident Physician Supervision Note: I was present with Dr. Munguia during the history and exam. I discussed the case with the resident and agree with the findings and plan as documented in the note. Any exceptions or clarifications are listed here. 71 y/o female h/o chronic nausea/vomiting for months to year with recent admission for aspiration PNA during which time imaging and GI consult was performed (records reviewed) in the setting of multiple medical issues reviewed above. Pt reports significant improvement in nausea following IV phenergan, but was unable to tolerate PO at the time of interview. Minimal improvement with PPI therapy as outpatient. General Appearance: WD/WN, no apparent distress Respiratory: chest non-tender, lungs clear, normal breath sounds, no respiratory distress Cardiovascular: normal peripheral pulses, regular rate, rhythm, no edema, no murmur Gastrointestinal: normal bowel sounds, soft, no organomegaly, other (suprapubic /RLQ TTP) Assessment/Plan 71 y/o female h/o CHF, CAD w/ recent pacemaker work, CAD, DMII, HTN, asthma presents w/ acute on chronic N/V Intractable N/V - imaging reviewed - continue zofran SL/IV, can use IV phenergan (half dose) if no improvement, d/w GI re: OP evaluation in AM, gentle hydration COPD - continue spiriva and albuterol Nodule on CT - will need outpatient f/u Chronic diastolic HF - pacemaker in place DMII - holding metformin, ISS while inpatient HTN - continue lisinopril, norvasc, coreg HLD - lipitor, ezetimibe DVT PPX - heparin FULL CODE
[2017-02-28 16:54] VITALS: BP 142/57; PULSE 76; TEMP 36.9; O2SAT 92
[2017-02-28] MEDS ORDERED: ONDANSETRON 4MG OD TAB PO PRN (17:00)
[2017-02-28] MEDS: SODIUM CHLORIDE 0.9% 1000ML 1,000 ML IV SCH (17:07)
[2017-02-28 17:47] VITALS: Ht 157.5 cm; Wt 50.3 kg
[2017-02-28 18:04] LABS: PROTHROMBIN TIME (PATIENT) 10.7 SECONDS (9.0-12.0)
[2017-02-28] MEDS: RANITIDINE HCL 150 MG TAB PO SCH (20:17)
[2017-02-28] MEDS: CARVEDILOL 25 MG TAB PO SCH (20:18)
[2017-02-28] MEDS: HEPARIN SOD 5000 UNIT/0.5 ML CARP SQ SCH (20:25)
[2017-02-28] MEDS: POTASSIUM CHLORIDE 10 MEQ TABCR PO SCH (20:42)
[2017-02-28] MEDS ORDERED: ATORVASTATIN 40 MG TAB PO SCH (21:00)
[2017-02-28] MEDS ORDERED: AMLODIPINE BESYLATE 5 MG TAB PO SCH (21:00)
[2017-02-28] MEDS ORDERED: EZETIMIBE 10MG TAB PO SCH (21:00)
[2017-02-28] MEDS ORDERED: ASPIRIN 81 MG ECTAB PO SCH (21:00)
[2017-03-01 00:11] VITALS: BP 111/56; PULSE 71; TEMP 36.8; O2SAT 96
[2017-03-01] MEDS: SODIUM CHLORIDE 0.9% 1000ML 1,000 ML IV SCH (04:30)
[2017-03-01] MEDS: HEPARIN SOD 5000 UNIT/0.5 ML CARP SQ SCH (05:46)
[2017-03-01 07:48] VITALS: BP 158/66; PULSE 74; TEMP 36.9; O2SAT 99
[2017-03-01] MEDS ORDERED: FUROSEMIDE 40 MG TAB PO SCH (08:00)
[2017-03-01] MEDS ORDERED: CLOPIDOGREL BISULFATE 75 MG TAB PO SCH (08:00)
[2017-03-01] MEDS ORDERED: TIOTROPIUM BROMIDE 5 PUFF/90 MCG INH INH SCH (08:00)
[2017-03-01] MEDS ORDERED: LISINOPRIL 40 MG TAB PO SCH (08:00)
[2017-03-01] MEDS ORDERED: SERTRALINE HCL 50 MG TAB PO SCH (08:00)
[2017-03-01] MEDS: POTASSIUM CHLORIDE 10 MEQ TABCR PO SCH (08:22)
[2017-03-01] MEDS: CARVEDILOL 25 MG TAB PO SCH (08:22)
[2017-03-01] MEDS: RANITIDINE HCL 150 MG TAB PO SCH (08:22)
[2017-03-01 08:43] LABS: HEMATOCRIT 33.8 % (37-47); MEAN CELL VOLUME 93.1 fL (80-100); MEAN CORPUSCULAR HEMOGLOBIN 31.4 pg (25-34); MEAN CORPUSCULAR HGB CONC 33.7 g/dl (32-36); MEAN PLATELET VOLUME 9.5 fL (7.4-10.4); PLATELET COUNT 189 K/uL (130-400); RED BLOOD COUNT 3.63 M/uL (4.2-5.4); WHITE BLOOD COUNT 9.66 K/uL (4.8-10.8)
[2017-03-01 10:20] LABS: BUN/CREATININE RATIO 15.7 (10-20); CALCIUM 8.3 mg/dl (8.5-10.1); CREATININE 0.81 mg/dl (0.60-1.20); POTASSIUM 4.2 mmol/L (3.5-5.1)
[2017-03-01] MEDS ORDERED: OMEP40CA41 PO (13:08)
[2017-03-01] MEDS ORDERED: ONDA8TAB62 SL (13:08)
--- NOTE | 2017-03-01 13:16 | Discharge Instructions ---
Discharge Instructions Date of Service March 01, 2017. Admission Reason for Admission: Intractable Nausea And Vomiting Discharge Discharge Diagnosis / Problem: Intractable nausea and vomiting Discharge Goals Goal(s): Decrease discomfort, Improve disease control Activity Recommendations Activity Limitations: resume your previous activity . Instructions / Follow-Up Instructions / Follow-Up You were admitted to the hospital for persistent nausea and vomiting that you were unable to control with medication at home. We suspect that the cause of this is a combination of your diabetes and the impact of the medications you were taking because of your recent illness. During your stay, you received medication which dissolves by mouth which helped control your symptoms ( ondansetron SLDT). You will be provided with a prescription for this medication upon discharge, which we would encourage you to take every six hours as needed for your nausea until your follow up with the loan services professional. If you are running low on the medication, your primary care provider can provide you with a refill. You have been prescribed omeprazole, an acid dane, which you should take daily along with the ranitidine 150mg tab which you were already taking. You should take this tablet daily for at least two weeks, or until discontinued by the loan services professional. Upon your admission, you had an elevated white blood cell count. Because you were recently ill, we have monitored this count and it has returned to normal without any intervention. You have been off your prescribed augmentin and prednisone for the last several days, so this improvement makes us believe that your recent acute condition is resolving. If you begin to feel feverish, short of breath or have any other concerning symptoms, we would encourage you to seek medical attention at your primary care or the emergency department, if needed. Upon your previous evaluation, you had a nodule which was noted on CT which should be followed up by your primary care. For your diabetes, please resume your outpatient regimen. Current Hospital Diet Patient's current hospital diet: AHA Diet (Heart Healthy), Diabetes Type 2 Diet Discharge Diet Recommended Diet: Diabetes Type 2 Diet Pending Studies Studies pending at discharge: no Laboratory Results Hemoglobin A1c Test 02/17/17 07:06 Range/Units Estimated Average Glucose 131 mg/dl Hemoglobin A1c 6.2 H 4.5-5.6 % Lipid Panel Test 01/30/17 13:22 Range/Units Triglycerides Level 59 0-150 mg/dl Cholesterol Level 99 0-200 mg/dl HDL Cholesterol 60 mg/dl Cholesterol/HDL Ratio 1.7 LDL Cholesterol, Calculated 27 mg/dl Medical Emergencies . Who to Call and When: Medical Emergencies: If at any time you feel your situation is an emergency, please call 911 immediately. . Non-Emergent Contact Non-Emergency issues call your: Primary Care Provider, [employer] T[employer] Call Non-Emergent contact if: temperature is above 100.5, your pain is worsening . . "Provider Documentation" section prepared by Roc Rincon. . VTE Core Measure Inpt VTE Proph given/why not?: Unfractionated heparin SQ, SCD's [place] Drug Monitoring Program Search Results: patient reviewed within database
[2017-03-01 13:17] VITALS: BP 158/66; PULSE 74; TEMP 36.9; O2SAT 99
--- NOTE | 2017-03-01 13:46 | Discharge Summary ---
Discharge Summary Date of Service March 01, 2017. (Sherron Munguia MD) Discharge Summary Admission Date: February 28, 2017 at 15:51 Discharge Date: March 01, 2017 Discharge Disposition: Home Principal Diagnosis: Intractable nausea and vomiting Immunizations: Have You Had Influenza Vaccine: Yes Influenza Vaccine Date: Oct 12, 2012 History of Tetanus Vaccine?: Unknown History of Pneumococcal: Unknown History of Hepatitis B Vaccine: No (Sherron Munguia MD) Medication Reconciliation New Medications: Omeprazole (Prilosec) 40 Mg Cap 1 CAP PO DAILY for 30 Days, #30 CAP 3 Refills Ondansetron Odt (Zofran Odt) 8 Mg Soltab 8 MG SL Q6H PRN for Nausea for 7 Days, #28 TAB Continued Medications: Amlodipine (Norvasc) 5 Mg Tab 7.5 MG PO QPM, TAB Aspirin (Aspirin Chewable) 81 Mg Chew 81 MG PO QPM, TAB Atorvastatin Calcium (Lipitor) 80 Mg Tab 80 MG PO HS, TAB Carvedilol (Coreg) 25 Mg Tab 25 MG PO BID, TAB Clopidogrel Bisulfate (Plavix) 75 Mg Tab 75 MG PO QAM, TAB Ezetimibe (Zetia) 10 Mg Tab 10 MG PO HS, TAB Fish Oil ([place]-3) 1 Ea Cap 1 CAP PO DAILY, CAP Furosemide (Lasix) 20 Mg Tab 40 MG PO QAM, TAB Lisinopril (Zestril) 40 Mg Tab 40 MG PO QAM, TAB Potassium Chloride (Potassium Chloride Er) 10 Meq Tab 1 TAB PO BID for 90 Days, #180 TAB 3 Refills Ranitidine Hcl (Zantac) 150 Mg Tab 150 MG PO BID, #20 TAB Sertraline (Zoloft) 50 Mg Tab 50 MG PO QAM, TAB Tiotropium [place] (Spiriva Handihaler) 30 Puff/540 Mcg Aerp 1 CAP INH DAILY, #30 INHALER Discontinued Medications: Amoxicillin & Pot Clavulanate (Augmentin 875-125 mg) 1 Tab Tab 1 TAB PO BIDM, #14 TAB Prednisone (Prednisone) 10 Mg Tab 10 MG PO UD, #9 TAB 2 po x 3 days then 1 po x 3 days then stop Discharge Exam Review of Systems: Constitutional: No chills, No fever Eyes: No worsening of vision ENT: No hearing loss Respiratory: No cough, No sputum Cardiovascular: No chest pain Abdomen: + nausea, No diarrhea, No pain, No vomiting Musculoskeletal: No joint pain Genitourinary - Female: No dysuria, No urinary frequency, No urinary urgency Neurologic: No memory loss, No paralysis Psychiatric: No depression symptoms Endocrine: No fatigue Hematologic / Lymphatic: No abnormal bleeding/bruising Physical Exam: General Appearance: WD/WN, no apparent distress Eyes: normal inspection ENT: hearing grossly normal Neck: supple Respiratory/Chest: chest non-tender, lungs clear, normal breath sounds Cardiovascular: regular rate, rhythm Abdomen / GI: normal bowel sounds, soft Extremities: normal inspection Neurologic/Psychiatric: alert, normal mood/affect, oriented x 3 Skin: normal color (Sherron Munguia MD) Hospital Course 71-year-old female with past medical history of diabetes, coronary artery disease, congestive heart failure, pacemaker placement, hypertension, asthma presented to the ER with complaints of persistent and intractable nausea and vomiting which worsened over the last few days . Has had nausea for several months now which will need an outpatient workup. Patient was admitted for IV hydration and observation overnight. Intractable nausea and vomiting: - Received a bolus of NSS in the ER with Phenergan - Abdominal US 02/16: No acute sonographic abnormality is seen in the right upper quadrant. No gallstones are identified. - was treated with gentle hydration and Zofran 4 mg SL every 4 hours as needed and if unable to tolerate by mouth , IV Zofran - will need further eval by GI as an OP History of COPD - CXR: Stable cardiomegaly and mild bibasilar interstitial thickening which is likely chronic. No acute process within the chest. - Continue inhalers- Spiriva and albuterol - 7 mm groundglass nodule within the right lower lobe found on chest CT 02/16, to be followed up as an outpatient Chronic systolic congestive heart failure: Stable - History of ischemic cardiomyopathy status post biventricular pacer, Battery replaced during previous admission Diabetes Mellitus - HbA1c 6.2 -Was on metformin which was discontinued during last admission can be monitored as an OP and metformin restarted if needed Hypertension - Lisinopril 40mg qAM - Norvasc 7.5mg qPM - Coreg 25mg BID Hyperlipidemia - Lipitor 80mg HS PO - Ezetimibe 10mg HS Follow up with PCP in about a week Follow up with GI as scheduled Total Time Spent: Less than 30 minutes This includes examination of the patient, discharge planning, medication reconciliation, and communication with other providers. (Sherron Munguia MD) Discharge Instructions Please refer to the electronic Patient Visit Report (Discharge Instructions) for additional information. (Sherron Munguia MD) Follow-Up Follow up with PCP in about a week Follow up with GI as scheduled (Sherron Munguia MD) Resident Tracking Resident Involvement: Resident Care Provided Care Provided: [facility] Medicine (Sherron Munguia MD) History Resident Physician Supervision Note: I was present with Dr. Munguia during the history and exam. I discussed the case with the resident and agree with the findings and plan as documented in the note. Any exceptions or clarifications are listed here. Pt reports nausea controlled with SL medication without vomiting and able to tolerate adequate PO intake at this time. Reports no fever, shortness of breath , cough, fatigue, [place], lightheadedness, diarrhea/constipation. (Roc Rincon MD) General Appearance: WD/WN, no apparent distress Respiratory: chest non-tender, lungs clear, normal breath sounds, no respiratory distress Cardiovascular: normal peripheral pulses, regular rate, rhythm, no edema, no murmur Gastrointestinal: normal bowel sounds, non tender, soft, no organomegaly (Roc Rincon MD) Assessment/Plan 71 y/o female h/o CHF, CAD w/ recent pacemaker work, CAD, DMII, HTN, asthma presents w/ acute on chronic N/V Intractable N/V - resolved - continue PPI, H2, zofran and f/u with GI as outpatient COPD - continue spiriva and albuterol Nodule on CT - will need outpatient f/u by PCP Chronic diastolic HF - pacemaker in place, medications continued DMII - holding metformin, ISS while inpatient HTN - continue lisinopril, norvasc, coreg HLD - lipitor, ezetimibe (Roc Rincon MD)
[2017-03-07] MEDS ORDERED: POTA-74 PO (11:28)
[2017-03-11] MEDS ORDERED: LSN5 PO (13:58)
[2017-03-11] MEDS ORDERED: POTA-74 PO (13:58)
[2017-03-11] MEDS ORDERED: MGNO400 PO (13:58)
[2017-03-11] MEDS ORDERED: SPR25 PO (13:58)
[2017-03-11] MEDS ORDERED: LSX20 PO (13:58)
[2017-03-11] MEDS ORDERED: IPRA1AER2 INH (13:58)
[2017-03-11] MEDS ORDERED: FRRS300 PO (13:58)
[2017-03-11] MEDS ORDERED: NYSS5 PO (14:09)
[2017-03-16] MEDS ORDERED: IPRASOL4 INH ×3 (11:12→18:37)
[2017-05-31] MEDS ORDERED: EZET10TA47 PO (07:16)
[2017-05-31] MEDS ORDERED: SERT50TA PO (07:16)
[2017-05-31] MEDS ORDERED: CLOP1TAB54 PO (07:16)
[2017-08-13] MEDS ORDERED: FRS/40 PO (14:55)
== END 2017-03-01 13:38 | disposition home or self-care (01) ==
LOC: ENRESERVTM → ENRESERVDT → C.EDB 10:33 → C.MS4W 15:51
PROVIDERS: ADMIT Family Medicine; ATTEND Family Medicine
DX: R11.2 Nausea with vomiting, unspecified (principal); E11.22 Type 2 diabetes mellitus with diabetic chronic kidney disease; I25.10 Atherosclerotic heart disease of native coronary artery without angina pectoris; I12.9 Hypertensive chronic kidney disease with stage 1 through stage 4 chronic kidney disease, or unspecified chronic kidney disease; N18.9 Chronic kidney disease, unspecified; J45.909 Unspecified asthma, uncomplicated; J44.9 Chronic obstructive pulmonary disease, unspecified; I50.22 Chronic systolic (congestive) heart failure; E78.5 Hyperlipidemia, unspecified; Z79.899 Other long term (current) drug therapy; Z88.2 Allergy status to sulfonamides; Z95.0 Presence of cardiac pacemaker; Z83.3 Family history of diabetes mellitus; Z82.49 Family history of ischemic heart disease and other diseases of the circulatory system; Z84.1 Family history of disorders of kidney and ureter

== ENCOUNTER 2017-03-02 20:41 | Emergency (ER) | payer BC ==
[~2017-03-02] VITALS: Ht 162.6 cm; Wt 53.7 kg
[~2017-03-02 20:41] MED LIST changes: +OMEP40CA41 PO; +ONDA8TAB62 SL; -POTA-327 PO; -PRED10TA PO; -PRVHFAIN INH
[2017-03-02 20:58] VITALS: TEMP 36.5; Ht 162.6 cm; Wt 53.7 kg
[2017-03-02 21:22] VITALS: O2SAT 100
[2017-03-02] MEDS ORDERED: HYDROmorphone INJ 0.5 MG/0.5 ML SYR IV STA ×2 (21:23→23:05)
[2017-03-02] MEDS ORDERED: METOCLOPRAMIDE HCL INJ 5 MG/ML 2 ML VIAL IV STA (21:23)
[2017-03-02] MEDS ORDERED: SODIUM CHLORIDE 0.9% 500ML 500 ML IV STA ×2 (21:23→22:21)
--- NOTE | 2017-03-02 21:29 | EMERGENCY ROOM VISIT NOTE ---
History Report prepared by Phillip: Hugh Espinal Under the Supervision of: Dr. Chester Grey M.D. First contact with patient: 21:05 Chief Complaint: WEAKNESS Stated Complaint: WEAKNESS History of Present Illness The patient is a 71 year old female who presents to the Emergency Room with complaints of worsening abdominal pains starting prior to arrival. She was brought to the ED via EMS and is accompanied by several family members. She reports her abdominal pain started this evening when she was in the bathroom trying to have a bowel movement. She rates her discomfort as a 6/10 in severity and notes she has not had a bowel movement since yesterday. The patient states that she has experienced lightheadedness, which has resolved and multiple syncopal episodes earlier today. She thinks she hit her head during at least one of her falls. The patient's daughter states that she has been here four times in the past week for similar symptoms. The daughter reports that the last time the patient was here she was given given Phenergan for nausea, which did provide some relief. The patient also states that she has been feeling a sensation of tightness in her chest recently. Her O2 is 98% on room air and she is requesting Oxygen for comfort. Source of History: patient, family Onset: this evening Position: abdomen Quality: other (03/16) Timing: worsening Associated Symptoms: + chest pain Note: Associated symptoms include lightheadedness and multiple syncopal episodes Review of Systems See HPI for pertinent positives & negatives. A total of 10 systems reviewed and were otherwise negative. Past Medical & Surgical Medical Problems: (1) ANEMIA NOS (2) ASTHMA, UNSPECIFIED (3) Cardiac defibrillator in place (4) CHRONIC KIDNEY DISEASE, UNSPECIFIED (5) copd exac, n/v, (6) CORONARY ATHEROSCLEROSIS OF [place] CORONARY VESSEL (7) DIAB CASPER WO COMPL, TYPE II OR UNSPEC TYPE, NOT UNCNTRLD (8) Hypoxia (9) PURE HYPERCHOLESTEROLEM Family History Diabetes mellitus FH: heart disease Hypertension Kidney disease Kidney stones Lung disease Social History Smoking Status: Current Some Day Smoker Alcohol Use: occasionally Drug Use: none Marital Status: Housing Status: lives with family Occupation Status: retired Current/Historical Medications Scheduled Amlodipine (Norvasc), 7.5 MG PO QPM Aspirin (Aspirin Chewable), 81 MG PO QPM Atorvastatin Calcium (Lipitor), 80 MG PO HS Carvedilol (Coreg), 25 MG PO BID Clopidogrel Bisulfate (Plavix), 75 MG PO QAM Ezetimibe (Zetia), 10 MG PO HS Fish Oil (Enders-3), 1 CAP PO DAILY Furosemide (Lasix), 40 MG PO QAM Lisinopril (Zestril), 40 MG PO QAM Omeprazole (Prilosec), 1 CAP PO DAILY Potassium Chloride (Potassium Chloride Er), 1 TAB PO BID Ranitidine Hcl (Zantac), 150 MG PO BID Sertraline (Zoloft), 50 MG PO QAM Tiotropium [place] (Spiriva Handihaler), 1 CAP INH DAILY Scheduled PRN Ondansetron Odt (Zofran Odt), 8 MG SL Q6H PRN for Nausea Allergies Coded Allergies: Sulfa Antibiotics (Verified Allergy, Intermediate, RASH, 02/16/17) Physical Exam Vital Signs Date Time Temp Pulse Resp B/P Pulse Ox O2 Delivery O2 Flow Rate FiO2 03/03/17 00:15 62 21 114/43 99 03/02/17 23:01 69 23 142/41 100 Nasal Cannula 2.0 03/02/17 22:55 63 25 133/45 100 Nasal Cannula 2.0 03/02/17 22:07 63 25 100 03/02/17 22:02 63 17 130/69 99 Nasal Cannula 2.0 03/02/17 21:49 58 12 89/40 99 Nasal Cannula 2.0 03/02/17 21:22 100 Nasal Cannula 2.0 03/02/17 21:01 56 17 116/46 100 Nasal Cannula 2.0 03/02/17 20:58 36.5 60 17 74/28 98 Room Air 03/02/17 20:52 60 Physical Exam GENERAL: Patient is a 71 year old female, she is cachectic in appearance. HEAD: Normocephalic atraumatic EYES: Ocular movements intact, pupils equal and react to light OROPHARYNX mucous membranes are moist, no exudates present no erythema or edema present NECK: Supple no nuchal rigidity CHEST: Good equal expansion LUNGS: Clear and equal to auscultation CARDIAC: Normal S1 and S2 ABDOMEN: Tender left lower quadrant, no guarding BACK: No CVA tenderness EXTREMITIES: No pain upon palpation, normal muscle strength in all groups, no clubbing cyanosis or edema NEURO: Patient is following commands is answering questions appropriately. Alert and oriented x3 Cranial Nerves 2-12 grossly intact Medical Decision & Procedures ER Provider Diagnostic Interpretation: Radiology results as stated below per my review and radiologist interpretation: SINGLE VIEW CHEST CLINICAL HISTORY: Sepsis. Generalized weakness. FINDINGS: 2 AP, portable, upright chest radiographs are compared to study dated 02/26/2017 and correlated with chest CT dated 02/16/2017. The examination is degraded by portable technique and patient rotation. A 3-lead cardiac AICD is unchanged in position and largely obscures the left mid chest. The heart is enlarged and there is atherosclerotic calcification of the thoracic aorta. The pulmonary vasculature is noncongested. Advanced emphysema and chronic interstitial thickening are similar to previous. No airspace consolidation, large pleural effusion, or pneumothorax is seen. The skeletal structures are osteopenic. The bony thorax is grossly intact. IMPRESSION: 1. Cardiomegaly and AICD. There is no radiographic evidence of congestive failure. 2. Advanced emphysema. No airspace consolidation or pleural effusion is identified. Electronically signed by: Antonio Astorga M.D. 03/02/2017 10:06 PM Dictated Date/Time: 03/02/2017 10:04 PM DOPPLER ULTRASOUND OF THE MESENTERIC VASCULATURE CLINICAL HISTORY: Epigastric abdominal pain. Nausea. COMPARISON STUDY: Abdominal CT dated 02/16/2017. FINDINGS: Real-time, grayscale, and color Doppler sonography of the abdominal vasculature is performed. There is advanced atherosclerotic plaque and irregularity seen throughout the abdominal aorta which is patent. Velocities within the abdominal aorta measure up to 73 cm/s. The celiac artery is patent. There are elevated velocities at the origin of the celiac artery measuring 267 cm/s consistent with stenosis. There are also markedly elevated velocities present at the origin of the superior mesenteric artery which measure up to 593 cm/s. There are blunted arterial waveforms present within the distal superior mesenteric artery which remains patent. The hepatic artery is patent with velocities measuring up to 88 cm/s. The splenic artery is patent with velocities measuring up to 130 cm/s. IMPRESSION: Advanced atherosclerotic disease with evidence of high-grade stenosis at the origin of both the superior mesenteric artery and the celiac trunk. Both vessels remain patent. Electronically signed by: Antonio Astorga M.D. 03/02/2017 10:52 PM Dictated Date/Time: 03/02/2017 10:[address] ANGIOGRAM OF THE ABDOMEN AND PELVIS COMBO CLINICAL HISTORY: Epigastric abdominal pain. COMPARISON STUDY: Abdominal CT scans dated 02/16/2017 and 05/07/2013. Ultrasound of the mesenteric vasculature dated 03/02/2017. TECHNIQUE: Before and following the IV administration of 119 cc of Optiray 320, CT angiogram of the abdomen and pelvis was performed from the lung bases the proximal femora. Images are reviewed in the axial, sagittal, and coronal planes. 3-D MIPS images are created and assessed. IV contrast was administered without complication. The examination is degraded by streak artifact from the patient's arms which could not be elevated above the abdomen. CT DOSE: 635.76 mGy.cm FINDINGS: Lower chest: The heart is enlarged and without pericardial effusion. Pacemaker leads are noted. There is diminished attenuation of the cardiac blood pool as compared to the myocardium suggesting anemia. Advanced emphysema is seen at the lung bases. A fat-containing Bochdalek hernia is noted at the right lung base. No airspace consolidation or pleural effusion is identified. There is a tiny hiatal hernia. Liver: The contrast-enhanced liver is normal in size, contour, and attenuation. There is no intrahepatic or ductal dilatation. The main portal veins appear patent. Gallbladder: Unremarkable. Spleen: Normal in size and attenuation. Pancreas: Atrophic and grossly unremarkable. Adrenal glands: Unremarkable. Kidneys: There are numerous bilateral nonobstructing renal calculi which measure up to 6 mm seen on the unenhanced series. The contrast enhanced kidneys are atrophic and without hydronephrosis. The kidneys enhance symmetrically. A 1.5 cm exophytic cyst arises from the interpolar left kidney. Additional subcentimeter cortical hypodensities also likely represent cysts but are too small for definitive characterization. Abdominal aorta and iliac arteries: There is advanced atherosclerotic calcification of the abdominal aorta and iliac arteries. No aneurysm or dissection is seen in the abdominal aorta. The iliac arteries are diminutive but patent bilaterally. There is high-grade stenosis with near complete occlusion seen in the left common femoral artery just above the bifurcation on axial image #363. There is a focal dissection within the right common femoral artery seen on axial image #341. Major branches of the abdominal aorta: There is high-grade stenosis with near complete occlusion seen at the origin of the celiac trunk. The hepatic artery and splenic artery are diminutive. Hepatic arterial anatomy is conventional. The splenic artery is patent. There is focal high-grade stenosis with near complete occlusion seen at the origin of the superior mesenteric artery. The distal superior mesenteric artery is patent. 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 There are 3 small right renal arteries and a single left renal artery. There is high-grade stenosis (approximately 75%) at the origin of the left renal artery. There is likely thrombosis at the origin of a diminutive accessory right renal artery seen on axial image #114. There is high-grade stenosis at the origin of the most inferior right renal artery seen on image #130. Approximately 50% stenosis is seen at the origin of the middle renal artery as seen on axial image #124. Bowel: There is no bowel obstruction. Liquid stool seen throughout the colon. Wall thickening is noted in the descending colon. There are mildly distended and fluid-filled loops of small bowel which measure up to 3 cm. No small bowel wall thickening is appreciated. The appendix is normal as visualized. Peritoneum: There is a small volume of free fluid in the pelvis and trace fluid is seen in the paracolic gutters. No intraperitoneal free air is seen.. Lymphadenopathy: None. Pelvic viscera: The is decompressed but appears thick walled. Mild pericystic stranding is noted. The uterus is surgically absent. No adnexal lesion is seen. Postoperative change is suggested in the right groin. Skeletal structures: The skeletal structures are osteopenic. There is moderate lumbosacral spondylosis. No lytic or blastic lesions are seen. IMPRESSION: 1. Advanced atherosclerotic disease is identified throughout the abdominal aorta and its major branches. 2. The abdominal aorta is normal in caliber and patent. No aortic dissection is seen. 3. The iliac arteries are diminutive but patent. 4. There is focal dissection identified within the right common femoral artery. 5. There is high-grade stenosis within the distal left common femoral artery with near complete conclusion. 6. There is high-grade stenosis with near complete occlusion seen at the origin of both the celiac trunk and the superior mesenteric artery. Trace flow is present within both vessels which are patent distally. 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 Note that these findings place the patient at high risk for mesenteric ischemia. 7. There is approximately 75% stenosis at the origin of the single left renal artery. 8. There are 3 right renal arteries with vascular disease/stenosis as above. 9. Liquid stool is seen throughout the colon and there is wall thickening identified throughout the descending colon. Although this could represent an infectious/inflammatory colitis the appearance is more concerning for ischemic colitis. Clinical correlation will be essential. 10. No bowel obstruction is seen. There are mildly distended and fluid-filled loops of small bowel. These are not thick walled. This could represent an enteritis or possibly a reactive ileus. Clinical correlation will be required. 11. Numerous bilateral nonobstructing renal calculi. 12. Advanced emphysema and cardiomegaly. 13. Although decompressed the bladder appears thick walled and there is pericystic inflammation. Correlate clinically and with urinalysis for evidence of cystitis. 14. There is a small volume of free fluid in the pelvis. 15. Additional findings as above. Electronically signed by: Antonio Astorga M.D. 03/02/2017 11:19 PM Dictated Date/Time: 03/02/2017 10:59 PM Laboratory Results 03/02/17 21:15 Red Blood Count 4.27, Mean Corpuscular Volume 95.8, Mean Corpuscular Hemoglobin 31.4, Mean Corpuscular Hemoglobin Concent 32.8, Mean Platelet Volume 9.8, Neutrophils (%) (Auto) 91.2, Lymphocytes (%) (Auto) 5.2, Monocytes (%) (Auto) 2.8, Eosinophils (%) (Auto) 0.4, Basophils (%) (Auto) 0.1, Neutrophils # (Auto) 17.80, Lymphocytes # (Auto) 1.01, Monocytes # (Auto) 0.54, Eosinophils # (Auto) 0.08, Basophils # (Auto) 0.01 03/02/17 21:15 Test 03/02/17 21:15 03/02/17 21:26 03/02/17 21:45 White Blood Count 19.50 K/uL (4.8-10.8) Red Blood Count 4.27 M/uL (4.2-5.4) Hemoglobin 13.4 g/dL (12.0-16.0) Hematocrit 40.9 % (37-47) Mean Corpuscular Volume 95.8 fL (80-100) Mean Corpuscular Hemoglobin 31.4 pg (25-34) Mean Corpuscular Hemoglobin Concent 32.8 g/dl (32-36) Platelet Count 204 K/uL (130-400) Mean Platelet Volume 9.8 fL (7.4-10.4) Neutrophils (%) (Auto) 91.2 % Lymphocytes (%) (Auto) 5.2 % Monocytes (%) (Auto) 2.8 % Eosinophils (%) (Auto) 0.4 % Basophils (%) (Auto) 0.1 % Neutrophils # (Auto) 17.80 K/uL (1.4-6.5) Lymphocytes # (Auto) 1.01 K/uL (1.2-3.4) Monocytes # (Auto) 0.54 K/uL (0.11-0.59) Eosinophils # (Auto) 0.08 K/uL (0-0.5) Basophils # (Auto) 0.01 K/uL (0-0.2) RDW Standard Deviation 53.7 fL (36.4-46.3) RDW Coefficient of Variation 15.4 % (11.5-14.5) Immature Granulocyte % (Auto) 0.3 % Immature Granulocyte # (Auto) 0.06 K/uL (0.00-0.02) Prothrombin Time 13.0 SECONDS (9.0-12.0) Prothromb Time International Ratio 1.2 (0.9-1.1) Activated Partial Thromboplast Time 28.9 SECONDS (21.0-31.0) Partial Thromboplastin Ratio 1.1 Anion Gap 13.0 mmol/L (3-11) Est Creatinine Clear Calc Drug Dose 23.9 ml/min Estimated GFR () 32.0 Estimated GFR (Non- 27.6 BUN/Creatinine Ratio 12.9 (10-20) Calcium Level 8.4 mg/dl (8.5-10.1) Total Bilirubin 0.9 mg/dl (0.2-1) Aspartate Amino Transf (AST/SGOT) 70 U/L (15-37) Alanine Aminotransferase (ALT/SGPT) 42 U/L (12-78) Alkaline Phosphatase 53 U/L (45-117) Total Creatine Kinase 83 U/L (26-192) Creatine Kinase MB 2.1 ng/ml (0.5-3.6) Creatine Kinase MB Ratio 2.5 (0-3.0) Troponin I 0.152 ng/ml (0-0.045) Total Protein 5.1 gm/dl (6.4-8.2) Albumin 2.3 gm/dl (3.4-5.0) Globulin 2.8 gm/dl (2.5-4.0) Albumin/Globulin Ratio 0.8 (0.9-2) Bedside Lactic Acid Venous 5.65 mmol/L (0.90-1.70) Urine Color DK YELLOW Urine Appearance CLOUDY (CLEAR) Urine pH 7.5 (4.5-7.5) Urine Specific [place] 1.014 (1.000-1.030) Urine Protein 2+ (NEG) Urine Glucose (UA) TRACE (NEG) Urine Ketones NEG (NEG) Urine Occult Blood 2+ (NEG) Urine Nitrite NEG (NEG) Urine Bilirubin NEG (NEG) Urine Urobilinogen NEG (NEG) Urine Leukocyte Esterase LARGE (NEG) Urine WBC (Auto) >30 /hpf (0-5) Urine RBC (Auto) 10-30 /hpf (0-4) Urine Hyaline Casts (Auto) 10-30 /lpf (0-5) Urine Epithelial Cells (Auto) >30 /lpf (0-5) Urine Bacteria (Auto) 4+ (NEG) Urine Pathogenic Casts /lpf (0) Urine Yeast (Auto) (NONE PRSENT) Labs reviewed by ED physician. Medications Administered Medications (Trade) Dose Ordered Sig/[place] Route Start Time Stop Time Status Last Admin Dose Admin Sodium Chloride (Nss 500ml) 500 ml @ 999 mls/hr Q31M STAT IV 03/02/17 21:23 03/02/17 21:53 DC 03/02/17 21:30 999 MLS/HR Hydromorphone HCl (Dilaudid Inj) 0.5 mg NOW STAT IV 03/02/17 21:23 03/02/17 21:25 DC 03/02/17 21:31 0.5 MG Metoclopramide HCl (Reglan Inj) 10 mg NOW STAT IV 03/02/17 21:23 03/02/17 21:25 DC 03/02/17 21:31 10 MG Piperacillin Sod/ Tazobactam Sod 4.5 gm 4.5 gm NOW STAT IV 03/02/17 21:52 03/02/17 21:54 DC 03/02/17 22:55 4.5 GM Daptomycin 300 mg/ Sodium Chloride 56 ml @ 100 mls/hr NOW STAT IV 03/02/17 21:52 03/02/17 22:25 DC 03/02/17 22:55 100 MLS/HR Sodium Chloride (Nss 500ml) 500 ml @ 999 mls/hr Q31M STAT IV 03/02/17 22:21 03/02/17 22:51 DC 03/02/17 22:55 999 MLS/HR Hydromorphone HCl (Dilaudid Inj) 0.5 mg NOW STAT IV 03/02/17 23:05 03/02/17 23:06 DC 03/02/17 23:17 0.5 MG Heparin Sodium/ Dextrose (Heparin 25,000 Unit/500ml D5W) 25,000 unit STK-MED ONCE .ROUTE 03/02/17 23:46 03/02/17 23:47 DC 03/02/17 23:53 25,000 UNIT ECG Indication: abdominal pain Rate (beats per minute): 60 Rhythm: other (paced rhythm) Findings: no acute ischemic change, paced rhythm, no ectopy ED Course 2107: Past medical records reviewed. The patient was evaluated in room A12. A complete history and physical examination was performed. 2123: Reglan Injection 10 mg IV, Dilaudid Injection 0.5 mg IV, Sodium Chloride 500 ml @ 999 mls/hr IV. 2152: Daptomycin 300 mg/ Sodium Chloride 56 ml @ 100 mls/hr IV, Zosyn IV 4.5 gm IV. 2221: Sodium Chloride 500 ml @ 999 mls/hr IV. 2306: Dilaudid Injection 0.5 mg IV. 2308: I discussed the patient's case with Dr. Ambrosio, [facility]. The patient will further be evaluated. 2312: I discussed the patient's case with Dr. Stern, [facility]. He has accepted the patient as a transfer to [facility]. 2316: I discussed the patient's case with Dr. Lezama, [facility]. The patient will further be evaluated. 2331: Heparin Sodium/ Dextrose 61543 unit IV. 0003: [facility] is here to fly the patient to [facility]. Medical Decision Medication Reconciliation: I attest that I have personally reviewed the patient' s current medication list. Blood Pressure Screening: Patient was found to have normal blood pressure on screening and does not require follow up. Etiologies such as appendicitis, diverticulitis, PUD, biliary pathology, UTI, pancreatitis, obstruction, mesenteric ischemia, aortic pathology, infections, inflammatory bowel disease, renal colic, as well as others were entertained. This is a 71-year-old female who presents emergency department complaining of acute abdominal pain that is out of proportion to exam along with hypotension and tachycardia. Based on the findings 2 peripheral IVs were established lactic acid was obtained. Let patient's lactate was concerning. She also has white blood cell count of 19. I did review the patient's previous records. Based on my findings the patient was immediately sent for mesenteric ultrasound which showed high-grade stenosis. From ultrasound the patient was sent for CAT scan of the abdomen and pelvis which was concerning for mesenteric ischemia. I believe this would be consistent with the patient's elevated lactate, laboratory work as well as serial examinations. IV was established, the patient was given Dilaudid 2, started on Zosyn as well as daptomycin. We do not have vascular surgeon on- call here this weekend and the patient's family would like the patient transferred to [facility]. For this reason I did discuss the case with [facility] who agreed to accept the patient. The patient was started on heparin in the emergency department. Consults Time Called: 2307 Consulting Physician: Dr. Ambrosio, [facility] Returned Call: 2310 I discussed the patient's case with Dr. Ambrosio, [facility]. The patient will further be evaluated. Additional Consults: Time Called: 2311 Consulted Physician: Dr. Stern, [facility] Returned Call: [phone] Additional Comments: I discussed the patient's case with Dr. Stern, [facility]. He has accepted the patient as a transfer to [facility]. Time Called: 2315 Consulted Physician: Dr. Lezama, [facility] Returned Call: [phone] Additional Comments: I discussed the patient's case with Dr. Lezama, [facility]. The patient will further be evaluated. Impression Primary Impression: Mesenteric ischemia Critical Care I have personally spent greater than 90 minutes of critical care time in the direct management of this patient. This includes bedside care, interpretation of diagnostic studies, and testing, discussion with consultants, patient, and family members, and other required patient management activities. This 90 minutes is in excess of all separately billable procedures. Scribe Attestation The scribe's documentation has been prepared under my direction and personally reviewed by me in its entirety. I confirm that the note above accurately reflects all work, treatment, procedures, and medical decision making performed by me. Departure Information Dispostion Transfer Acute Care Facility (This patient is being transferred to [facility]) Referrals RV. Edwards MD (PCP) Patient Instructions My [facility]
[2017-03-02 21:48] LABS: BASO % 0.1 %; BASO ABS # 0.01 K/uL (0-0.2); COMPLETE YES; EOS % 0.4 %; HEMATOCRIT 40.9 % (37-47); IG% 0.3 %; LYMPH % 5.2 %; LYMPH ABS # 1.01 K/uL (1.2-3.4); MEAN CELL VOLUME 95.8 fL (80-100); MEAN CORPUSCULAR HEMOGLOBIN 31.4 pg (25-34); MEAN CORPUSCULAR HGB CONC 32.8 g/dl (32-36); MEAN PLATELET VOLUME 9.8 fL (7.4-10.4); MONO % 2.8 %; NEUT % 91.2 %; PLATELET COUNT 204 K/uL (130-400); RED BLOOD COUNT 4.27 M/uL (4.2-5.4)
[2017-03-02] MEDS ORDERED: PIPERACILLIN/TAZOBACTAM 4.5 GM/100ML D5W IV STA (21:52)
[2017-03-02] MEDS ORDERED: DAPTOmycin IV 300 MG in SODIUM CHLORIDE 0.9% 50ML 50 ML IV STA (21:52)
[2017-03-02 22:00] LABS: INR 1.2 (0.9-1.1); PARTIAL THROMBOPLASTIN RATIO 1.1
[2017-03-02 22:07] LABS: BUN/CREATININE RATIO 12.9 (10-20); CREATININE 1.8 mg/dl (0.60-1.20); POTASSIUM 4.4 mmol/L (3.5-5.1)
--- NOTE | 2017-03-02 22:07 | DIAGNOSTIC IMAGING REPORT ---
SINGLE VIEW CHEST CLINICAL HISTORY: Sepsis. Generalized weakness. FINDINGS: 2 AP, portable, upright chest radiographs are compared to study dated 02/26/2017 and correlated with chest CT dated 02/16/2017. The examination is degraded by portable technique and patient rotation. A 3-lead cardiac AICD is unchanged in position and largely obscures the left mid chest. The heart is enlarged and there is atherosclerotic calcification of the thoracic aorta. The pulmonary vasculature is noncongested. Advanced emphysema and chronic interstitial thickening are similar to previous. No airspace consolidation, large pleural effusion, or pneumothorax is seen. The skeletal structures are osteopenic. The bony thorax is grossly intact. IMPRESSION: 1. Cardiomegaly and AICD. There is no radiographic evidence of congestive failure. 2. Advanced emphysema. No airspace consolidation or pleural effusion is identified. Electronically signed by: Antonio Astorga M.D. 03/02/2017 10:06 PM Dictated Date/Time: 03/02/2017 10:04 PM
[2017-03-02 22:09] LABS: URINE APPEARANCE CLOUDY (CLEAR); URINE BILIRUBIN NEG (NEG); URINE COLOR DK YELLOW; URINE EPITHELIAL CELL AUTO >30 /lpf (0-5); URINE NITRITE NEG (NEG); URINE PH 7.5 (4.5-7.5); URINE SPECIFIC GRAVITY 1.014 (1.000-1.030); UROBILINOGEN NEG (NEG)
[2017-03-02 22:20] LABS: ALB/GLOB RATIO 0.8 (0.9-2); CKMB/CK RATIO 2.5 (0-3.0)
[2017-03-02 22:23] LABS: MANUAL MICROSCOPIC REQUIRED? NO; REVIEW REQ? YES; SULFASALICYLIC ACID POS (NEG)
[2017-03-02 22:24] LABS: ZZUR CULT IF INDIC CLEAN CATCH YES
[2017-03-02] MEDS ORDERED: OPTIRAY 320 IV PRN (22:30)
[2017-03-02 22:33] LABS: CALCIUM 8.4 mg/dl (8.5-10.1)
--- NOTE | 2017-03-02 22:54 | DIAGNOSTIC IMAGING REPORT ---
DOPPLER ULTRASOUND OF THE MESENTERIC VASCULATURE CLINICAL HISTORY: Epigastric abdominal pain. Nausea. COMPARISON STUDY: Abdominal CT dated 02/16/2017. FINDINGS: Real-time, grayscale, and color Doppler sonography of the abdominal vasculature is performed. There is advanced atherosclerotic plaque and irregularity seen throughout the abdominal aorta which is patent. Velocities within the abdominal aorta measure up to 73 cm/s. The celiac artery is patent. There are elevated velocities at the origin of the celiac artery measuring 267 cm/s consistent with stenosis. There are also markedly elevated velocities present at the origin of the superior mesenteric artery which measure up to 593 cm/s. There are blunted arterial waveforms present within the distal superior mesenteric artery which remains patent. The hepatic artery is patent with velocities measuring up to 88 cm/s. The splenic artery is patent with velocities measuring up to 130 cm/s. IMPRESSION: Advanced atherosclerotic disease with evidence of high-grade stenosis at the origin of both the superior mesenteric artery and the celiac trunk. Both vessels remain patent. Electronically signed by: Antonio Asotrga M.D. 03/02/2017 10:52 PM Dictated Date/Time: 03/02/2017 10:49 PM
--- NOTE | 2017-03-02 23:21 | DIAGNOSTIC IMAGING REPORT ---
CT ANGIOGRAM OF THE ABDOMEN AND PELVIS COMBO CLINICAL HISTORY: Epigastric abdominal pain. COMPARISON STUDY: Abdominal CT scans dated 02/16/2017 and 05/07/2013. Ultrasound of the mesenteric vasculature dated 03/02/2017. TECHNIQUE: Before and following the IV administration of 119 cc of Optiray 320, CT angiogram of the abdomen and pelvis was performed from the lung bases the proximal femora. Images are reviewed in the axial, sagittal, and coronal planes. 3-D MIPS images are created and assessed. IV contrast was administered without complication. The examination is degraded by streak artifact from the patient's arms which could not be elevated above the abdomen. CT DOSE: 635.76 mGy.cm FINDINGS: Lower chest: The heart is enlarged and without pericardial effusion. Pacemaker leads are noted. There is diminished attenuation of the cardiac blood pool as compared to the myocardium suggesting anemia. Advanced emphysema is seen at the lung bases. A fat-containing Bochdalek hernia is noted at the right lung base. No airspace consolidation or pleural effusion is identified. There is a tiny hiatal hernia. Liver: The contrast-enhanced liver is normal in size, contour, and attenuation. There is no intrahepatic or ductal dilatation. The main portal veins appear patent. Gallbladder: Unremarkable. Spleen: Normal in size and attenuation. Pancreas: Atrophic and grossly unremarkable. Adrenal glands: Unremarkable. Kidneys: There are numerous bilateral nonobstructing renal calculi which measure up to 6 mm seen on the unenhanced series. The contrast enhanced kidneys are atrophic and without hydronephrosis. The kidneys enhance symmetrically. A 1.5 cm exophytic cyst arises from the interpolar left kidney. Additional subcentimeter cortical hypodensities also likely represent cysts but are too small for definitive characterization. Abdominal aorta and iliac arteries: There is advanced atherosclerotic calcification of the abdominal aorta and iliac arteries. No aneurysm or dissection is seen in the abdominal aorta. The iliac arteries are diminutive but patent bilaterally. There is high-grade stenosis with near complete occlusion seen in the left common femoral artery just above the bifurcation on axial image #363. There is a focal dissection within the right common femoral artery seen on axial image #341. Major branches of the abdominal aorta: There is high-grade stenosis with near complete occlusion seen at the origin of the celiac trunk. The hepatic artery and splenic artery are diminutive. Hepatic arterial anatomy is conventional. The splenic artery is patent. There is focal high-grade stenosis with near complete occlusion seen at the origin of the superior mesenteric artery. The distal superior mesenteric artery is patent. 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 There are 3 small right renal arteries and a single left renal artery. There is high-grade stenosis (approximately 75%) at the origin of the left renal artery. There is likely thrombosis at the origin of a diminutive accessory right renal artery seen on axial image #114. There is high-grade stenosis at the origin of the most inferior right renal artery seen on image #130. Approximately 50% stenosis is seen at the origin of the middle renal artery as seen on axial image #124. Bowel: There is no bowel obstruction. Liquid stool seen throughout the colon. Wall thickening is noted in the descending colon. There are mildly distended and fluid-filled loops of small bowel which measure up to 3 cm. No small bowel wall thickening is appreciated. The appendix is normal as visualized. Peritoneum: There is a small volume of free fluid in the pelvis and trace fluid is seen in the paracolic gutters. No intraperitoneal free air is seen.. Lymphadenopathy: None. Pelvic viscera: The is decompressed but appears thick walled. Mild pericystic stranding is noted. The uterus is surgically absent. No adnexal lesion is seen. Postoperative change is suggested in the right groin. Skeletal structures: The skeletal structures are osteopenic. There is moderate lumbosacral spondylosis. No lytic or blastic lesions are seen. IMPRESSION: 1. Advanced atherosclerotic disease is identified throughout the abdominal aorta and its major branches. 2. The abdominal aorta is normal in caliber and patent. No aortic dissection is seen. 3. The iliac arteries are diminutive but patent. 4. There is focal dissection identified within the right common femoral artery. 5. There is high-grade stenosis within the distal left common femoral artery with near complete conclusion. 6. There is high-grade stenosis with near complete occlusion seen at the origin of both the celiac trunk and the superior mesenteric artery. Trace flow is present within both vessels which are patent distally. 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 Note that these findings place the patient at high risk for mesenteric ischemia. 7. There is approximately 75% stenosis at the origin of the single left renal artery. 8. There are 3 right renal arteries with vascular disease/stenosis as above. 9. Liquid stool is seen throughout the colon and there is wall thickening identified throughout the descending colon. Although this could represent an infectious/inflammatory colitis the appearance is more concerning for ischemic colitis. Clinical correlation will be essential. 10. No bowel obstruction is seen. There are mildly distended and fluid-filled loops of small bowel. These are not thick walled. This could represent an enteritis or possibly a reactive ileus. Clinical correlation will be required. 11. Numerous bilateral nonobstructing renal calculi. 12. Advanced emphysema and cardiomegaly. 13. Although decompressed the bladder appears thick walled and there is pericystic inflammation. Correlate clinically and with urinalysis for evidence of cystitis. 14. There is a small volume of free fluid in the pelvis. 15. Additional findings as above. Electronically signed by: Antonio Astorga M.D. 03/02/2017 11:19 PM Dictated Date/Time: 03/02/2017 10:59 PM
[2017-03-02] MEDS ORDERED: HEPARIN 25000 UNIT/500 ML D5W ONE (23:46)
[2017-03-03 00:15] VITALS: BP 114/43; PULSE 62; O2SAT 99
[2017-03-03] MEDS ORDERED: HEPARIN 25,000 UNIT/500ML D5W 500 ML IV PRN (00:15)
[2017-03-07] MEDS ORDERED: POTA-74 PO (11:28)
[2017-03-11] MEDS ORDERED: POTA-74 PO (13:58)
[2017-03-11] MEDS ORDERED: LSN5 PO (13:58)
[2017-03-11] MEDS ORDERED: LSX20 PO (13:58)
[2017-03-11] MEDS ORDERED: SPR25 PO (13:58)
[2017-03-11] MEDS ORDERED: FRRS300 PO (13:58)
[2017-03-11] MEDS ORDERED: IPRA1AER2 INH (13:58)
[2017-03-11] MEDS ORDERED: MGNO400 PO (13:58)
[2017-03-11] MEDS ORDERED: NYSS5 PO (14:09)
[2017-03-16] MEDS ORDERED: IPRASOL4 INH ×3 (11:12→18:37)
[2017-05-31] MEDS ORDERED: CLOP1TAB54 PO (07:16)
[2017-05-31] MEDS ORDERED: SERT50TA PO (07:16)
[2017-05-31] MEDS ORDERED: EZET10TA47 PO (07:16)
[2017-08-13] MEDS ORDERED: FRS/40 PO (14:55)
== END 2017-03-03 00:15 | disposition short-term general hospital (02) ==
LOC: EDBD 20:41 → C.EDA 20:42
DX: K55.059 Acute (reversible) ischemia of intestine, part and extent unspecified (principal); R53.1 Weakness; R10.9 Unspecified abdominal pain; R42 Dizziness and giddiness; R55 Syncope and collapse; N18.9 Chronic kidney disease, unspecified; E11.9 Type 2 diabetes mellitus without complications; I25.10 Atherosclerotic heart disease of native coronary artery without angina pectoris; J44.9 Chronic obstructive pulmonary disease, unspecified; Z79.02 Long term (current) use of antithrombotics/antiplatelets; Z79.82 Long term (current) use of aspirin; Z79.899 Other long term (current) drug therapy; Z95.810 Presence of automatic (implantable) cardiac defibrillator; Z82.49 Family history of ischemic heart disease and other diseases of the circulatory system; Z83.3 Family history of diabetes mellitus; Z84.1 Family history of disorders of kidney and ureter; Z87.09 Personal history of other diseases of the respiratory system; F17.200 Nicotine dependence, unspecified, uncomplicated

== ENCOUNTER 2017-03-07 19:14 | Inpatient (IN) | payer BC, OTHER ==
[~2017-03-07] VITALS: Ht 157.5 cm; Wt 52.1 kg
[~2017-03-07 19:14] MED LIST changes: +POTA-74 PO
[2017-03-07] MEDS ORDERED: VNTHFA/IN INH (19:58)
[2017-03-07] MEDS ORDERED: GLC/500 PO (19:58)
--- NOTE | 2017-03-07 20:02 | DIAGNOSTIC IMAGING REPORT ---
CHEST ONE VIEW PORTABLE HISTORY: Evaluate Fever/Sepsis COMPARISON: Chest 03/02/2017. FINDINGS: The heart remains mildly enlarged. Interval development of small bilateral pleural effusions and mild diffuse interstitial thickening consistent with mild pulmonary edema. Left-sided pacemaker/defibrillator. Linear densities the left lung base favor atelectasis. No pneumothorax. IMPRESSION: Interval development of mild interstitial pulmonary edema and small bilateral pleural effusions. Electronically signed by: Alverto Pereira M.D. 03/07/2017 8:01 PM Dictated Date/Time: 03/07/2017 8:00 PM
[2017-03-07 20:06] LABS: BASO % 0.8 %; BASO ABS # 0.05 K/uL (0-0.2); COMPLETE YES; EOS % 1.1 %; HEMATOCRIT 28.7 % (37-47); IG% 0.5 %; LYMPH % 18.3 %; LYMPH ABS # 1.17 K/uL (1.2-3.4); MEAN CORPUSCULAR HEMOGLOBIN 32.1 pg (25-34); MEAN CORPUSCULAR HGB CONC 34.8 g/dl (32-36); MONO % 12.8 %; NEUT % 66.5 %; PLATELET COUNT 104 K/uL (130-400); RED BLOOD COUNT 3.12 M/uL (4.2-5.4); WHITE BLOOD COUNT 6.39 K/uL (4.8-10.8)
[2017-03-07 20:19] LABS: PARTIAL THROMBOPLASTIN RATIO 1.1; PROTHROMBIN TIME (PATIENT) 10.3 SECONDS (9.0-12.0)
[2017-03-07 20:24] LABS: BUN/CREATININE RATIO 12.4 (10-20); CALCIUM 7.9 mg/dl (8.5-10.1); CREATININE 0.72 mg/dl (0.60-1.20); POTASSIUM 4.1 mmol/L (3.5-5.1)
[2017-03-07 20:38] LABS: CKMB/CK RATIO 8.3 (0-3.0)
[2017-03-07] MEDS ORDERED: ASPCH81X PO (20:41)
[2017-03-07 21:06] LABS: URINE APPEARANCE CLOUDY (CLEAR); URINE BILIRUBIN NEG (NEG); URINE COLOR DK YELLOW; URINE EPITHELIAL CELL AUTO >30 /lpf (0-5); URINE NITRITE NEG (NEG); URINE PH 7.5 (4.5-7.5); URINE SPECIFIC GRAVITY 1.017 (1.000-1.030); UROBILINOGEN NEG (NEG)
[2017-03-07 21:09] LABS: MANUAL MICROSCOPIC REQUIRED? NO; REVIEW REQ? YES
[2017-03-07] MEDS ORDERED: FUROSEMIDE 40 MG/4 ML VIAL IV STA (22:07)
--- NOTE | 2017-03-07 22:46 | EMERGENCY ROOM VISIT NOTE ---
History Report prepared by Phillip: Meghan Burroughs Under the Supervision of: Dr. Chester De Leon D.O. First contact with patient: 19:21 Chief Complaint: SHORTNESS OF BREATH Stated Complaint: FLUID AND BREATHING PROBLEMS History of Present Illness The patient is a 71 year old female who presents to the Emergency Room with complaints of constant shortness of breath beginning today. The patient states that she was seen at [place] 5 days ago and was discharged yesterday with chronic mesenteric ischemia. She reports that at [place] she had blood in the stool and dehydration and was taken off of Lasix and Metformin and was given lots of fluids. She notes that she has a history of heart failure, COPD, and she has a pacemaker. Today the patient complains of fever and bilateral foot swelling. The patient is concerned that she is having fluid overload and she called her doctor at [place] and they advised her to come into the ED. She denies any blood in the stool and pain in her legs. She notes that she is scheduled to have [] done on April 17 and is going to the vascular clinic in 6 weeks after being healthy in order to determine whether or not she should get stents. She notes that she is on Plavix and Aspirin. Source of History: patient Onset: today Position: other (global) Quality: other (SOB) Timing: constant Associated Symptoms: + fevers Note: Pt has bilateral leg swelling. She denies any leg pain and bloody stools. Review of Systems See HPI for pertinent positives & negatives. A total of 10 systems reviewed and were otherwise negative. Past Medical & Surgical Medical Problems: (1) ANEMIA NOS (2) ASTHMA, UNSPECIFIED (3) Cardiac defibrillator in place (4) CHRONIC KIDNEY DISEASE, UNSPECIFIED (5) copd exac, n/v, (6) CORONARY ATHEROSCLEROSIS OF FALSE PASS CORONARY VESSEL (7) DIAB CASPER WO COMPL, TYPE II OR UNSPEC TYPE, NOT UNCNTRLD (8) Hypoxia (9) PURE HYPERCHOLESTEROLEM Family History Diabetes mellitus FH: heart disease Hypertension Kidney disease Kidney stones Lung disease Social History Smoking Status: Former Smoker Alcohol Use: occasionally Drug Use: none Marital Status: Housing Status: lives with family Occupation Status: retired Current/Historical Medications Scheduled Aspirin (Aspirin Chewable), 81 MG PO QPM Atorvastatin Calcium (Lipitor), 80 MG PO HS Carvedilol (Coreg), 25 MG PO BID Clopidogrel Bisulfate (Plavix), 75 MG PO QAM Ezetimibe (Zetia), 10 MG PO HS Fish Oil ([place]-3), 1 CAP PO DAILY Fluticasone Prop/Salmeterol (Advair Diskus 500/50 60 Dose), 1 PUFFS INH BID Metformin Hcl (Glucophage), 500 MG PO BID Potassium Chloride (Potassium Chloride Er), 1 TAB PO BID Pramipexole Dihydrochloride (Pramipexole Dihydrochlori), 1 TAB PO HS Sertraline (Zoloft), 50 MG PO QAM Scheduled PRN Acetaminophen (Tylenol), 1,000 MG PO Q6 PRN for Headache Albuterol Hfa (Ventolin Hfa), 2 PUFF INH QID PRN for Wheezing Ondansetron Odt (Zofran Odt), 8 MG SL Q6H PRN for Nausea Allergies Coded Allergies: Sulfa Antibiotics (Verified Allergy, Intermediate, RASH, 02/16/17) Morphine (Verified Adverse Reaction, Severe, GI SYMPTOMS, 03/07/17) Physical Exam Vital Signs Date Time Temp Pulse Resp B/P (MAP) Pulse Ox O2 Delivery O2 Flow Rate FiO2 03/07/17 22:07 97 26 126/69 93 Room Air 03/07/17 20:23 93 22 141/62 93 Room Air 03/07/17 20:21 Room Air 03/07/17 19:47 Room Air 03/07/17 19:33 99 03/07/17 19:15 36.7 104 28 128/61 95 Room Air Physical Exam CONSTITUTIONAL/VITAL SIGNS: Reviewed / noted above. GENERAL: Non-toxic in appearance. Slightly pale. INTEGUMENTARY: Warm, dry, and [place]. HEAD: Normocephalic. EYES: without scleral icterus or trauma. ENT/OROPHARYNX: clear and moist. LYMPHADENOPATHY/NECK: Is supple without lymphadenopathy or meningismus. RESPIRATORY: Lungs clear and equal. Mild increased work of breathing. CARDIOVASCULAR: Regular rate and rhythm. GI/ABDOMEN: Soft and nontender. No organomegaly or pulsatile mass. No rebound or guarding. Normal bowel sounds. EXTREMITIES: Warm and well perfused. Pt has some symmetric bilateral lower extremity edema. BACK: No CVA tenderness. NEUROLOGICAL: Intact without focal deficits. PSYCHIATRIC: normal affect. MUSCULOSKELETAL: Normally developed with good muscle tone. Medical Decision & Procedures ER Provider Diagnostic Interpretation: X ray results and stated below per my interpretation and radiology interpretation. CHEST ONE VIEW PORTABLE FINDINGS: The heart remains mildly enlarged. Interval development of small bilateral pleural effusions and mild diffuse interstitial thickening consistent with mild pulmonary edema. Left-sided pacemaker/defibrillator. Linear densities the left lung base favor atelectasis. No pneumothorax. IMPRESSION: Interval development of mild interstitial pulmonary edema and small bilateral pleural effusions. Electronically signed by: Alverto Pereira M.D. 03/07/2017 8:01 PM Dictated Date/Time: 03/07/2017 8:00 PM Laboratory Results 03/07/17 19:50 Red Blood Count 3.12, Mean Corpuscular Volume 92.0, Mean Corpuscular Hemoglobin 32.1, Mean Corpuscular Hemoglobin Concent 34.8, Mean Platelet Volume 10.0, Neutrophils (%) (Auto) 66.5, Lymphocytes (%) (Auto) 18.3, Monocytes (%) (Auto) 12.8, Eosinophils (%) (Auto) 1.1, Basophils (%) (Auto) 0.8, Neutrophils # (Auto ) 4.25, Lymphocytes # (Auto) 1.17, Monocytes # (Auto) 0.82, Eosinophils # (Auto ) 0.07, Basophils # (Auto) 0.05 03/07/17 19:50 Test 03/07/17 19:50 03/07/17 20:50 White Blood Count 6.39 K/uL (4.8-10.8) Red Blood Count 3.12 M/uL (4.2-5.4) Hemoglobin 10.0 g/dL (12.0-16.0) Hematocrit 28.7 % (37-47) Mean Corpuscular Volume 92.0 fL (80-100) Mean Corpuscular Hemoglobin 32.1 pg (25-34) Mean Corpuscular Hemoglobin Concent 34.8 g/dl (32-36) Platelet Count 104 K/uL (130-400) Mean Platelet Volume 10.0 fL (7.4-10.4) Neutrophils (%) (Auto) 66.5 % Lymphocytes (%) (Auto) 18.3 % Monocytes (%) (Auto) 12.8 % Eosinophils (%) (Auto) 1.1 % Basophils (%) (Auto) 0.8 % Neutrophils # (Auto) 4.25 K/uL (1.4-6.5) Lymphocytes # (Auto) 1.17 K/uL (1.2-3.4) Monocytes # (Auto) 0.82 K/uL (0.11-0.59) Eosinophils # (Auto) 0.07 K/uL (0-0.5) Basophils # (Auto) 0.05 K/uL (0-0.2) RDW Standard Deviation 53.3 fL (36.4-46.3) RDW Coefficient of Variation 15.8 % (11.5-14.5) Immature Granulocyte % (Auto) 0.5 % Immature Granulocyte # (Auto) 0.03 K/uL (0.00-0.02) Prothrombin Time 10.3 SECONDS (9.0-12.0) Prothromb Time International Ratio 1.0 (0.9-1.1) Activated Partial Thromboplast Time 29.7 SECONDS (21.0-31.0) Partial Thromboplastin Ratio 1.1 Anion Gap 8.0 mmol/L (3-11) Est Creatinine Clear Calc Drug Dose 55.9 ml/min Estimated GFR () 97.0 Estimated GFR (Non- 83.7 BUN/Creatinine Ratio 12.4 (10-20) Calcium Level 7.9 mg/dl (8.5-10.1) Total Bilirubin 0.4 mg/dl (0.2-1) Direct Bilirubin 0.1 mg/dl (0-0.2) Aspartate Amino Transf (AST/SGOT) 43 U/L (15-37) Alanine Aminotransferase (ALT/SGPT) 80 U/L (12-78) Alkaline Phosphatase 66 U/L (45-117) Total Creatine Kinase 23 U/L (26-192) Creatine Kinase MB 1.9 ng/ml (0.5-3.6) Creatine Kinase MB Ratio 8.3 (0-3.0) Troponin I 0.132 ng/ml (0-0.045) Total Protein 5.5 gm/dl (6.4-8.2) Albumin 2.4 gm/dl (3.4-5.0) Lipase 140 U/L (73-393) Urine Color DK YELLOW Urine Appearance CLOUDY (CLEAR) Urine pH 7.5 (4.5-7.5) Urine Specific [place] 1.017 (1.000-1.030) Urine Protein NEG (NEG) Urine Glucose (UA) NEG (NEG) Urine Ketones TRACE (NEG) Urine Occult Blood NEG (NEG) Urine Nitrite NEG (NEG) Urine Bilirubin NEG (NEG) Urine Urobilinogen NEG (NEG) Urine Leukocyte Esterase MODERATE (NEG) Urine WBC (Auto) 5-10 /hpf (0-5) Urine RBC (Auto) 0-4 /hpf (0-4) Urine Hyaline Casts (Auto) 1-5 /lpf (0-5) Urine Epithelial Cells (Auto) >30 /lpf (0-5) Urine Bacteria (Auto) NEG (NEG) Laboratory results as stated above per my review. Medications Administered Medications (Trade) Dose Ordered Sig/Os[place]i Route Start Time Stop Time Status Last Admin Dose Admin Furosemide (Lasix Inj) 40 mg NOW STAT IV 03/07/17 22:07 03/07/17 22:08 DC 03/07/17 22:15 40 MG ECG Indication: SOB/dyspnea Rate (beats per minute): 97 Rhythm: other (ventricular paced) Findings: no ectopy, other (no acute injury) ED Course 1920: Previous medical records were reviewed. The patient was evaluated in room C8. A complete history and physical examination was performed. 2206: Lasix Inj 40mg IV. 2219: I reevaluated and updated the patient. 2238: Discussed the patient's case with Dr. West of [facility]. The patient will be evaluated for further treatment and disposition. 2246: On reevaluation, the patient is doing well. I discussed the results and findings with the patient. She verbalized agreement of the treatment plan. I spoke with Dr. West of the [facility] Hospitalist Service. The patient will be evaluated for further management and care. Medical Decision Differential diagnosis: Etiologies such as infections, reactive airway disease, pneumonia, pneumothorax , COPD, CHF, cardiac ischemia, pulmonary embolism, musculoskeletal, gastrointestinal, as well as others were entertained. Medication Reconciliation: I attest that I have personally reviewed the patient' s current medication list. Blood pressure Screening: Patient was found to have normal blood pressure on screening and does not require follow-up. This is a 71-year-old female who presents to the ED with a chief complaint of shortness of breath, orthopnea and exertional dyspnea. The patient states that her symptoms started a couple of days ago. She was discharged from [facility] yesterday. 5 days ago she was sent there for possible ischemic bowel. She states that they felt that she was dehydrated and this is the cause for her decreased blood flow to her gut. She does have vascular disease in her celiac vessel, superior mesenteric and inferior mesenteric arteries. The patient was aggressively hydrated there. She feels that she was over hydrated. They have also discontinued her Lasix. The patient's vital signs are stable. She is not hypoxic. She does have pedal edema which is new. The patient has a slightly elevated troponin and a chest x-ray suggesting pulmonary edema. The other blood work was unremarkable. EKG shows a ventricular paced rhythm. Urine did not show infection. The patient was treated IV Lasix. She will be seen by the hospitalist for further inpatient evaluation and care. Impression Primary Impression: Pulmonary edema Additional Impression: Elevated troponin Scribe Attestation The scribe's documentation has been prepared under my direction and personally reviewed by me in its entirety. I confirm that the note above accurately reflects all work, treatment, procedures, and medical decision making performed by me. Departure Information Dispostion Being Evaluated By Hospitalist Referrals RV. Edwards MD (PCP) Patient Instructions My [facility] Problem Qualifiers
[2017-03-07] MEDS ORDERED: NITROGLYCERIN 0.4 MG SL PER TAB CHARGE SL PRN (23:15)
[2017-03-07] MEDS ORDERED: POLYETHYLENE (MIRALAX) 17 GM PACK PO PRN (23:15)
[2017-03-07] MEDS ORDERED: ONDANSETRON INJ 2 MG/ML 2 ML VIAL IV PRN (23:15)
[2017-03-07] MEDS ORDERED: MoRPHine SULFATE 2 MG/ML CARP IV PRN (23:15)
[2017-03-08] VITALS (12 sets, daily range): BP systolic 116–132; BP diastolic 43–57; PULSE 69–101; TEMP 36.4–37; O2SAT 92–97; Ht 157.5 cm; Wt 52.1 kg
[2017-03-08] MEDS ORDERED: ONDANSETRON 8MG OD TAB SL PRN
[2017-03-08] MEDS: ZOLPIDEM TARTRATE 5 MG TAB PO PRN ×2 (00:38→21:20)
[2017-03-08 00:59] LABS: ECHINOCYTES 1+; OVALOCYTES 1+
--- NOTE | 2017-03-08 01:34 | History and Physical ---
History & Physical Date & Time of Service: Mar 08, 2017 at 01:07 Chief Complaint: Acute On Chronic Systolic Congestive Heart Failure Primary Care Physician: RV. Edwards MD History of Present Illness Source: patient, clinic records, hospital records This is a 71 yo f vasculopath with CHF and COPD that is presenting to us after a recent transfer for [facility] for mesenteric ischemia with acute shortness of breath and bilat LE edema x 1 day. 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 When she originally arrived she suffered from acute blood loss in the stool and the engineering project designer there was concerned that the vessels were "fraying" because of dehydration. They hydrated the patient and deferred scope as she stabilized. Plan was for follow up with Dr Montenegro in April for surgery. She was told to stop all diuretics with the thought that these were causing dehydration and leading to this "fraying". When I discussed fluid overload with the family in CHF there was a lot of concern because they received explicit instructions not to take the diuretics or they may not be able to undergo the surgery. The patient was discharged on March 06. To note she has had multiple recent admissions regarding CHF exacerbation and COPD. The patient states to suffer from this shortness of breath started yesterday along with progressive bilat lower extremity edema. She is unable to lay flat because of the shortness of breath when she sleeps at night. They were concerned about her heart and brought her to the ED for evaluation. She was found to be fluid overloaded and received a dose of lasix in the ED with some improvement of symptoms. Past Medical/Surgical History Medical Problems: (1) ANEMIA NOS Status: Chronic (2) ASTHMA, UNSPECIFIED Status: Chronic (3) Cardiac defibrillator in place Status: Chronic (4) CHRONIC KIDNEY DISEASE, UNSPECIFIED Status: Chronic (5) CORONARY ATHEROSCLEROSIS OF [place] CORONARY VESSEL Status: Chronic (6) DIAB CASPER WO COMPL, TYPE II OR UNSPEC TYPE, NOT UNCNTRLD Status: Chronic (7) PURE HYPERCHOLESTEROLEM Status: Chronic Family History Diabetes mellitus FH: heart disease Hypertension Kidney disease Kidney stones Lung disease Social History Smoking Status: Former Smoker Drug Use: none Marital Status: Housing status: lives with family Occupational Status: retired Immunizations History of Influenza Vaccine: Yes Influenza Vaccine Date: Oct 12, 2012 History of Tetanus Vaccine?: Unknown History of Pneumococcal: Unknown History of Hepatitis B Vaccine: No Multi-Drug Resistant Organisms History of MDRO: No Allergies Coded Allergies: Sulfa Antibiotics (Verified Allergy, Intermediate, RASH, 02/16/17) Morphine (Verified Adverse Reaction, Severe, GI SYMPTOMS, 03/07/17) Home Medications Scheduled Aspirin (Aspirin Chewable), 81 MG PO QPM Atorvastatin Calcium (Lipitor), 80 MG PO HS Carvedilol (Coreg), 25 MG PO BID Clopidogrel Bisulfate (Plavix), 75 MG PO QAM Ezetimibe (Zetia), 10 MG PO HS Fish Oil ([place]-3), 1 CAP PO DAILY Fluticasone Prop/Salmeterol (Advair Diskus 500/50 60 Dose), 1 PUFFS INH BID Metformin Hcl (Glucophage), 500 MG PO BID Potassium Chloride (Potassium Chloride Er), 1 TAB PO BID Pramipexole Dihydrochloride (Pramipexole Dihydrochlori), 1 TAB PO HS Sertraline (Zoloft), 50 MG PO QAM Scheduled PRN Acetaminophen (Tylenol), 1,000 MG PO Q6 PRN for Headache Albuterol Hfa (Ventolin Hfa), 2 PUFF INH QID PRN for Wheezing Ondansetron Odt (Zofran Odt), 8 MG SL Q6H PRN for Nausea Review of Systems Constitutional: No fever, No chills Eyes: No worsening of vision ENT: No hearing loss Respiratory: + wheezing, + shortness of breath, + dyspnea on exertion, + dyspnea at rest, No cough, No sputum Cardiovascular: No chest pain Abdomen: No pain, No nausea, No vomiting, No diarrhea, No constipation Musculoskeletal: + swelling (bilat LE), No joint pain, No muscle pain Genitourinary - Female: No dysuria, No hematuria Neurologic: + memory loss Psychiatric: + depression symptoms Endocrine: + fatigue Hematologic / Lymphatic: + abnormal bleeding/bruising Integumentary: + rash Physical Exam Vital Signs Date Time Temp Pulse Resp B/P (MAP) Pulse Ox O2 Delivery O2 Flow Rate FiO2 03/07/17 23:58 97 24 126/69 97 6/1/17 23:21 99 24 126/69 97 Nasal Cannula 03/07/17 22:07 97 26 126/69 93 Room Air 03/07/17 20:23 93 22 141/62 93 Room Air 03/07/17 20:21 Room Air 03/07/17 19:47 Room Air 03/07/17 19:33 99 03/07/17 19:15 36.7 104 28 128/61 95 Room Air General Appearance: + mild distress, + thin Head: normocephalic, atraumatic Eyes: normal inspection ENT: normal ENT inspection Neck: supple Respiratory/Chest: + pertinent finding (crackles in base bilat, inspiratory wheeze with poor expiratory) Cardiovascular: regular rate, rhythm, normal peripheral pulses Abdomen/GI: normal bowel sounds, non tender, soft Back: normal inspection Extremities/Musculoskelatal: no calf tenderness, + pedal edema (+3 bilat LE edema pitting) Neurologic/Psych: alert, normal mood/affect, oriented x 3 Skin: normal color, warm/dry, no rash Lymphatic: no adenopathy Diagnostics Laboratory Results Results Past 24 Hours Test 03/07/17 19:50 03/07/17 20:50 Range/Units White Blood Count 6.39 4.8-10.8 K/uL Red Blood Count 3.12 4.2-5.4 M/uL Hemoglobin 10.0 12.0-16.0 g/dL Hematocrit 28.7 37-47 % Mean Corpuscular Volume 92.0 80-100 fL Mean Corpuscular Hemoglobin 32.1 25-34 pg Mean Corpuscular Hemoglobin Concent 34.8 32-36 g/dl Platelet Count 104 130-400 K/uL Mean Platelet Volume 10.0 7.4-10.4 fL Neutrophils (%) (Auto) 66.5 % Lymphocytes (%) (Auto) 18.3 % Monocytes (%) (Auto) 12.8 % Eosinophils (%) (Auto) 1.1 % Basophils (%) (Auto) 0.8 % Neutrophils # (Auto) 4.25 1.4-6.5 K/uL Lymphocytes # (Auto) 1.17 1.2-3.4 K/uL Monocytes # (Auto) 0.82 0.11-0.59 K/uL Eosinophils # (Auto) 0.07 0-0.5 K/uL Basophils # (Auto) 0.05 0-0.2 K/uL RDW Standard Deviation 53.3 36.4-46.3 fL RDW Coefficient of Variation 15.8 11.5-14.5 % Immature Granulocyte % (Auto) 0.5 % Immature Granulocyte # (Auto) 0.03 0.00-0.02 K/uL Nucleated RBC Absolute Count (auto) 0.00 0-0 K/uL Nucleated Red Blood Cells % 0.0 % Ovalocytes 1+ Echinocytes 1+ Prothrombin Time 10.3 9.0-12.0 SECONDS Prothromb Time International Ratio 1.0 0.9-1.1 Activated Partial Thromboplast Time 29.7 21.0-31.0 SECONDS Partial Thromboplastin Ratio 1.1 Sodium Level 138 136-145 mmol/L Potassium Level 4.1 3.5-5.1 mmol/L Chloride Level 103 98-107 mmol/L Carbon Dioxide Level 27 21-32 mmol/L Anion Gap 8.0 3-11 mmol/L Blood Urea Nitrogen 9 7-18 mg/dl Creatinine 0.72 0.60-1.20 mg/dl Est Creatinine Clear Calc Drug Dose 55.9 ml/min Estimated GFR () 97.0 Estimated GFR (Non- 83.7 BUN/Creatinine Ratio 12.4 10-20 Random Glucose 119 70-99 mg/dl Calcium Level 7.9 8.5-10.1 mg/dl Total Bilirubin 0.4 0.2-1 mg/dl Direct Bilirubin 0.1 0-0.2 mg/dl Aspartate Amino Transf (AST/SGOT) 43 15-37 U/L Alanine Aminotransferase (ALT/SGPT) 80 12-78 U/L Alkaline Phosphatase 66 45-117 U/L Total Creatine Kinase 23 26-192 U/L Creatine Kinase MB 1.9 0.5-3.6 ng/ml Creatine Kinase MB Ratio 8.3 0-3.0 Troponin I 0.132 0-0.045 ng/ml Total Protein 5.5 6.4-8.2 gm/dl Albumin 2.4 3.4-5.0 gm/dl Lipase 140 73-393 U/L Urine Color DK YELLOW Urine Appearance CLOUDY CLEAR Urine pH 7.5 4.5-7.5 Urine Specific [place] 1.017 1.000-1.030 Urine Protein NEG NEG Urine Glucose (UA) NEG NEG Urine Ketones TRACE NEG Urine Occult Blood NEG NEG Urine Nitrite NEG NEG Urine Bilirubin NEG NEG Urine Urobilinogen NEG NEG Urine Leukocyte Esterase MODERATE NEG Urine WBC (Auto) 5-10 0-5 /hpf Urine RBC (Auto) 0-4 0-4 /hpf Urine Hyaline Casts (Auto) 1-5 0-5 /lpf Urine Epithelial Cells (Auto) >30 0-5 /lpf Urine Bacteria (Auto) NEG NEG Diagnostic Radiology CHEST ONE VIEW PORTABLE HISTORY: Evaluate Fever/Sepsis COMPARISON: Chest 03/02/2017. FINDINGS: The heart remains mildly enlarged. Interval development of small bilateral pleural effusions and mild diffuse interstitial thickening consistent with mild pulmonary edema. Left-sided pacemaker/defibrillator. Linear densities the left lung base favor atelectasis. No pneumothorax. IMPRESSION: Interval development of mild interstitial pulmonary edema and small bilateral pleural effusions. EKG Atrial-sensed ventricular-paced rhythm Abnormal ECG When compared with ECG of 02-MAR-2017 20:50, Vent. rate has increased BY 37 BPM Impression Assessment and Plan This is a 71 yo f with a history of COPD, CHF, vasculopathy (chronic mesenteric ischemia) that is suffering from acute on chronic systolic CHF secondary to fluid overload in an absence of diuretics Acute on Chronic systolic CHF - Tele admission -- 40 mg of lasix given in the ED - A lot of concern between the potential to decrease "flow to the intestines" with lasix, family would like primary team to discuss addition of lasix with Dr Montenegro - agreeable to trying a 20 mg dose tomorrow - Consult [facility] - I&O and daily weights Anemia, Thrombocytopenia, Recent GI bleed - Peripheral smear - potentially from recent GI bleed? fecal occult ordered - possibly dilutional from fluid overload? Possible acute exacerbation of COPD attributing to the CHF - Duoneb q 4 h - continue Advair Elevated Troponin - This is BL for patient - Will repeat in am Ischemic cardiomyopathy with AICD and Pacer; HTN - continue ASA and Plavix ( Benefit > risk) - continue coreg - most recent echo February 2016 The left ventricle is moderately dilated. * Left ventricular systolic function is severely reduced. EF 20-35% * There are regional wall motion abnormalities as specified. * The right ventricular systolic function is mildly reduced. * The left atrium is severely dilated. * The right atrium is moderately dilated. * Mild to moderate aortic regurgitation. * There is severe mitral regurgitation. * Right ventricular systolic pressure is elevated at 30-40mmHg. * Compared to an echocardiogram performed in 11/2016, there is no significant change GERD - continue zetia HLD - continue Atorvastatin DM ii - metformin held - insulin ISS while here Parkinson - mirapex DVT Prophylaxis - SCD for now and if fecal occult neg will start Level of Care Telemetry Resuscitation Status FULL RESUSCITATION VTE Prophylaxis VTE Risk Assessment Done? Y/N: Yes Risk Level: Moderate Given or contraindicated: SCD's Social Service Consult None Apply Note Total Time: Critical Care 30 - 74 minutes Additional Copies To RV. Edwards MD Assessment and Plan Attending Addendum: I have physically seen and examined this patient, have directed their medical care, have supervised the medical residents activities, and agree with the H&P as noted above, with the following changes: NONE
[2017-03-08] MEDS ORDERED: GLUCAGON FOR INJ 1 MG VIAL SQ PRN (02:15)
[2017-03-08] MEDS ORDERED: GLUCOSE 10 TABS/TUBE PO PRN (02:15)
[2017-03-08] MEDS ORDERED: DEXTROSE 50% 50 ML SYR IV PRN (02:15)
[2017-03-08] MEDS ORDERED: GLUCOSE 40% GEL 15 GM TUBE PO PRN (02:15)
[2017-03-08 06:00] LABS: BASO % 0.8 %; BASO ABS # 0.04 K/uL (0-0.2); COMPLETE YES; EOS % 1.2 %; HEMATOCRIT 27.7 % (37-47); IG% 0.2 %; LYMPH % 21.8 %; LYMPH ABS # 1.08 K/uL (1.2-3.4); MEAN CELL VOLUME 91.7 fL (80-100); MEAN CORPUSCULAR HEMOGLOBIN 29.8 pg (25-34); MEAN CORPUSCULAR HGB CONC 32.5 g/dl (32-36); MEAN PLATELET VOLUME 9.5 fL (7.4-10.4); MONO % 13.9 %; NEUT % 62.1 %; PLATELET COUNT 113 K/uL (130-400); RED BLOOD COUNT 3.02 M/uL (4.2-5.4); WHITE BLOOD COUNT 4.96 K/uL (4.8-10.8)
[2017-03-08 06:36] LABS: BUN/CREATININE RATIO 13.8 (10-20); CREATININE 0.69 mg/dl (0.60-1.20); MAGNESIUM 1.6 mg/dl (1.8-2.4); POTASSIUM 3.6 mmol/L (3.5-5.1)
[2017-03-08] MEDS: ALBUT/IPRATROP 3MG/0.5MG NEB 3 ML VIAL INH SCH ×4 (06:56→18:56)
[2017-03-08] MEDS: INSULIN ASPART 100 UNITS/ML 3 ML PEN SC SCH ×4 (07:00→20:59)
[2017-03-08] MEDS: FUROSEMIDE 20 MG TAB PO SCH (07:59)
[2017-03-08] MEDS: FLUTICASONE/SALMETEROL (ADVAIR) 500/50 INH 14 PUFF INH SCH ×2 (07:59→20:57)
[2017-03-08] MEDS: CARVEDILOL 25 MG TAB PO SCH ×2 (08:00→20:57)
[2017-03-08] MEDS: OMEGA-3 (PURIFIED FISH OIL) 1 GM CAP PO SCH (08:00)
[2017-03-08] MEDS: POTASSIUM CHLORIDE 10 MEQ TABCR PO SCH ×2 (08:00→20:57)
[2017-03-08] MEDS: SERTRALINE HCL 50 MG TAB PO SCH (08:00)
[2017-03-08] MEDS ORDERED: CLOPIDOGREL BISULFATE 75 MG TAB PO SCH (09:00)
[2017-03-08] MEDS ORDERED: HEPARIN SOD 5000 UNIT/0.5 ML CARP SQ SCH (09:00)
[2017-03-08] MEDS ORDERED: VANCOMYCIN INJ 1,300 MG in SODIUM CHLORIDE 0.9% 250ML 250 ML IV SCH (10:00)
[2017-03-08] MEDS: CLOPIDOGREL BISULFATE 75 MG TAB PO SCH (10:00)
[2017-03-08 11:03] LABS: POINT OF CARE PRO-BNP > 20000 pg/ml (0-900)
--- NOTE | 2017-03-08 14:31 | Family Medicine Progress Note ---
Progress Note Date of Service Mar 08, 2017. Subjective Pt evaluation today including: conversation w/ patient, physical exam, chart review, conversation w/ tanning consultant Pain: none PO Intake: good Voiding: no voiding problems Patient with no acute events overnight Patient has been feeling much better since receiving lasix. She is no longer short of breath but still has some swelling in her legs. We discussed the case with the patient and cardiology and it was decided to restart the patient on lasix at a reduced dose. Patient is still unable to lie flat. She has walked around the room with ease. She denies any chest pain, palpitations, cough, wheeze, fevers, nausea vomiting , abdominal pain or blood in her stool. Additional Comments: Please see above for ROS Medications Current Inpatient Medications Medications (Trade) Dose Ordered Sig/Osmani Route Start Time Stop Time Status Last Admin Dose Admin Acetaminophen (Tylenol Tab) 650 mg Q4H PRN PO 03/07/17 23:15 04/06/17 23:14 Zolpidem Tartrate (Ambien Tab) 5 mg HSZ PRN PO 03/07/17 23:15 04/06/17 23:14 03/08/17 00:38 5 MG Ondansetron HCl (Zofran Inj) 4 mg Q6H PRN IV 03/07/17 23:15 04/06/17 23:14 Nitroglycerin (Nitrostat Tab) 0.4 mg UD PRN SL 03/07/17 23:15 04/06/17 23:14 Morphine Sulfate (MoRPHine SULFATE INJ) 2 mg Q30M PRN IV 03/07/17 23:15 03/21/17 23:14 Polyethylene (Miralax Powder Packet) 17 gm DAILY PRN PO 03/07/17 23:15 04/06/17 23:14 Albuterol/ Ipratropium (Duoneb) 3 ml QIDR INH 03/08/17 08:00 04/07/17 07:59 03/08/17 11:07 3 ML Aspirin (Ecotrin Tab) 81 mg PM PO 03/08/17 21:00 04/07/17 20:59 Atorvastatin Calcium (Lipitor Tab) 80 mg HS PO 03/08/17 21:00 04/07/17 20:59 Carvedilol (Coreg Tab) 25 mg BID PO 03/08/17 09:00 04/07/17 08:59 03/08/17 08:00 25 MG EZETIMIBE (Zetia Tab) 10 mg HS PO 03/08/17 21:00 04/07/17 20:59 Fish Oil ([place]-3 (Purified Fish Oil) Cap) 1 gm DAILY PO 03/08/17 09:00 04/07/17 08:59 03/08/17 08:00 1 GM Salmeterol Xinafoate/ Fluticasone (Advair Diskus 500/50 Inh) 1 puff BID INH 03/08/17 09:00 04/07/17 08:59 03/08/17 07:59 1 PUFF Ondansetron HCl (Zofran Odt) 8 mg Q6H PRN SL 03/08/17 00:00 04/07/17 00:00 Pramipexole Dihydrochloride (miraPEX TAB) 0.25 mg HS PO 03/08/17 21:00 04/07/17 20:59 Sertraline HCl (Zoloft Tab) 50 mg QAM PO 03/08/17 09:00 04/07/17 08:59 03/08/17 08:00 50 MG Potassium Chloride (Klor-Con M10) 10 meq BID PO 03/08/17 09:00 04/07/17 08:59 03/08/17 08:00 10 MEQ Furosemide (Lasix Tab) 20 mg QAM PO 03/08/17 09:00 04/07/17 08:59 03/08/17 07:59 20 MG Insulin Aspart (novoLOG ASPART) SLIDING SCALE G... ACHS SC 03/08/17 07:00 04/07/17 06:59 Glucose (Glucose 40% Gel) 15-30 GRAMS 15 GRAMS... UD PRN PO 03/08/17 02:15 04/07/17 02:14 Glucose (Glucose Chew Tab) 4-8 Tablets 4 Tabl... UD PRN PO 03/08/17 02:15 04/07/17 02:14 Dextrose (Dextrose 50% 50ML Syringe) 25-50ML OF 50% DW IV FOR... UD PRN IV 03/08/17 02:15 04/07/17 02:14 Glucagon (Glucagon Inj) 1 mg UD PRN SQ 03/08/17 02:15 04/07/17 02:14 Clopidogrel Bisulfate (plAVix TAB) 75 mg QAM PO 03/08/17 10:00 04/07/17 09:59 Objective Vital Signs Date Time Temp Pulse Resp B/P (MAP) Pulse Ox O2 Delivery O2 Flow Rate FiO2 03/08/17 12:07 36.6 90 18 127/53 (77) 95 03/08/17 12:00 Room Air 03/08/17 11:07 87 16 95 Room Air 03/08/17 09:14 94 Room Air 03/08/17 08:00 Room Air 03/08/17 08:00 36.8 69 16 126/55 (78) 97 Nasal Cannula 2.0 03/08/17 06:45 95 20 97 Nasal Cannula 2.0 03/08/17 04:00 Nasal Cannula 2.0 03/08/17 03:46 37.0 89 18 119/43 (68) 95 4.0 03/08/17 00:15 94 Nasal Cannula 2.0 03/08/17 00:15 36.7 97 18 130/49 94 Nasal Cannula 2.0 03/07/17 23:58 97 24 126/69 97 03/07/17 23:21 99 24 126/69 97 Nasal Cannula 03/07/17 22:07 97 26 126/69 93 Room Air 03/07/17 20:23 93 22 141/62 93 Room Air 03/07/17 20:21 Room Air 03/07/17 19:47 Room Air 03/07/17 19:33 99 03/07/17 19:15 36.7 104 28 128/61 95 Room Air Physical Exam General Appearance: WD/WN, no apparent distress Neck: supple, no adenopathy, + JVD (mildly elevated JVD), + pertinent finding ( carotid bruit on the right, no carotid bruit on the left) Respiratory/Chest: lungs clear, normal breath sounds, no respiratory distress, no accessory muscle use Cardiovascular: regular rate, rhythm, no edema, no gallop, + systolic murmur ( systolic murmur best heard over the RUSB (11/12)) Abdomen: normal bowel sounds, non tender, soft Extremities: normal range of motion, non-tender, no calf tenderness, normal capillary refill, + pedal edema (+1 pedal oedema up to the knees bilaterally) Neurologic/Psychiatric: alert, normal mood/affect, oriented x 3 Skin: normal color, warm/dry, no rash Laboratory Results Results Past 24 Hours Test 03/07/17 19:50 03/07/17 19:57 03/07/17 20:50 03/08/17 05:26 Range/Units White Blood Count 6.39 4.96 4.8-10.8 K/uL Red Blood Count 3.12 3.02 4.2-5.4 M/uL Hemoglobin 10.0 9.0 12.0-16.0 g/dL Hematocrit 28.7 27.7 37-47 % Mean Corpuscular Volume 92.0 91.7 80-100 fL Mean Corpuscular Hemoglobin 32.1 29.8 25-34 pg Mean Corpuscular Hemoglobin Concent 34.8 32.5 32-36 g/dl Platelet Count 104 113 130-400 K/uL Mean Platelet Volume 10.0 9.5 7.4-10.4 fL Neutrophils (%) (Auto) 66.5 62.1 % Lymphocytes (%) (Auto) 18.3 21.8 % Monocytes (%) (Auto) 12.8 13.9 % Eosinophils (%) (Auto) 1.1 1.2 % Basophils (%) (Auto) 0.8 0.8 % Neutrophils # (Auto) 4.25 3.08 1.4-6.5 K/uL Lymphocytes # (Auto) 1.17 1.08 1.2-3.4 K/uL Monocytes # (Auto) 0.82 0.69 0.11-0.59 K/uL Eosinophils # (Auto) 0.07 0.06 0-0.5 K/uL Basophils # (Auto) 0.05 0.04 0-0.2 K/uL RDW Standard Deviation 53.3 53.1 36.4-46.3 fL RDW Coefficient of Variation 15.8 15.9 11.5-14.5 % Immature Granulocyte % (Auto) 0.5 0.2 % Immature Granulocyte # (Auto) 0.03 0.01 0.00-0.02 K/uL Nucleated RBC Absolute Count (auto) 0.00 0-0 K/uL Nucleated Red Blood Cells % 0.0 % Ovalocytes 1+ Echinocytes 1+ Peripheral Blood Smear Path Consult Prothrombin Time 10.3 9.0-12.0 SECONDS Prothromb Time International Ratio 1.0 0.9-1.1 Activated Partial Thromboplast Time 29.7 21.0-31.0 SECONDS Partial Thromboplastin Ratio 1.1 Sodium Level 138 140 136-145 mmol/L Potassium Level 4.1 3.6 3.5-5.1 mmol/L Chloride Level 103 102 98-107 mmol/L Carbon Dioxide Level 27 31 21-32 mmol/L Anion Gap 8.0 7.0 3-11 mmol/L Blood Urea Nitrogen 9 9 7-18 mg/dl Creatinine 0.72 0.69 0.60-1.20 mg/dl Est Creatinine Clear Calc Drug Dose 55.9 58.3 ml/min Estimated GFR () 97.0 100.8 Estimated GFR (Non- 83.7 87.0 BUN/Creatinine Ratio 12.4 13.8 10-20 Random Glucose 119 87 70-99 mg/dl Calcium Level 7.9 8.0 8.5-10.1 mg/dl Total Bilirubin 0.4 0.2-1 mg/dl Direct Bilirubin 0.1 0-0.2 mg/dl Aspartate Amino Transf (AST/SGOT) 43 15-37 U/L Alanine Aminotransferase (ALT/SGPT) 80 12-78 U/L Alkaline Phosphatase 66 45-117 U/L Total Creatine Kinase 23 26-192 U/L Creatine Kinase MB 1.9 0.5-3.6 ng/ml Creatine Kinase MB Ratio 8.3 0-3.0 Troponin I 0.132 0.105 0-0.045 ng/ml Total Protein 5.5 6.4-8.2 gm/dl Albumin 2.4 3.4-5.0 gm/dl Lipase 140 73-393 U/L Bedside Troponin I 0.080 0-0.045 ng/ml ND-Lpa-M-Type Natriuretic Peptide > 62134 0-900 pg/ml Urine Color DK YELLOW Urine Appearance CLOUDY CLEAR Urine pH 7.5 4.5-7.5 Urine Specific [place] 1.017 1.000-1.030 Urine Protein NEG NEG Urine Glucose (UA) NEG NEG Urine Ketones TRACE NEG Urine Occult Blood NEG NEG Urine Nitrite NEG NEG Urine Bilirubin NEG NEG Urine Urobilinogen NEG NEG Urine Leukocyte Esterase MODERATE NEG Urine WBC (Auto) 5-10 0-5 /hpf Urine RBC (Auto) 0-4 0-4 /hpf Urine Hyaline Casts (Auto) 1-5 0-5 /lpf Urine Epithelial Cells (Auto) >30 0-5 /lpf Urine Bacteria (Auto) NEG NEG Magnesium Level 1.6 1.8-2.4 mg/dl Test 03/08/17 06:55 03/08/17 11:04 Range/Units Bedside Glucose 92 100 70-90 mg/dl Microbiology Results 03/08/17 MRSA DNA Surveillance Screen - Final, Complete Specimen Negative for MRSA by DNA Probe Assessment and Plan This is a 71 yo f with a history of COPD, CHF, vasculopathy (chronic mesenteric ischemia) that is suffering from acute on chronic systolic CHF secondary to fluid overload in an absence of diuretics Acute on Chronic systolic CHF -- 40 mg of lasix given in the ED - talked to cardiology and decided to start 20mg lasix PO daily, will start lisinopril tomorrow if creatinine remains stable - I&O and daily weights (-3L today) - cardiology following patient - most recent BMP >50358 - on coreg 25mgs bid but dose held this am due to hypotension - resume lisinopril at low dose if bp allows - hold amlodipine - later to consider adding spironolactone. Anemia, Thrombocytopenia, Recent GI bleed - awaiting FOBT - most recent Hgb 9.0, continue to follow Possible acute exacerbation of COPD attributing to the CHF - Duoneb q 4 h - continue Advair Ischemic cardiomyopathy with AICD and Pacer; HTN - continue ASA and Plavix ( Benefit > risk) - continue coreg - most recent echo February 2016 The left ventricle is moderately dilated. * Left ventricular systolic function is severely reduced. EF 20-35% * There are regional wall motion abnormalities as specified. * The right ventricular systolic function is mildly reduced. * The left atrium is severely dilated. * The right atrium is moderately dilated. * Mild to moderate aortic regurgitation. * There is severe mitral regurgitation. * Right ventricular systolic pressure is elevated at 30-40mmHg. * Compared to an echocardiogram performed in 11/2016, there is no significant change Hypomagnesemia - 1.6 this morning - replete with magnesium oxide 1 tab daily GERD - continue zetia HLD - continue Atorvastatin DM ii - metformin held - insulin ISS while here Parkinson - mirapex DVT Prophylaxis - SCD Continued [facility] stay due to: home environment unsafe for pt, other Reviewed: Pt Seen/Exam by Me History still with leg edema no other concerns Constitutional: denies: fever Respiratory: negative: short of breath Cardiovascular: denies chest pain General Appearance: no apparent distress Respiratory: lungs clear, no respiratory distress Cardiovascular: regular rate, rhythm Extremities: pedal edema (bilateral) Neurologic/Psychiatric: alert, oriented x 3 Assessment/Plan I have reviewed the medical record and performed a history and physical examination of this patient today. I have discussed the case with Dr. Child. The above note reflects my findings, conclusions, and recommendations.
--- NOTE | 2017-03-08 14:50 | CARDIOLOGY CONSULTATION ---
DATE OF CONSULTATION: 03/08/2017 REFERRING PHYSICIAN: Violette Calderón MD PRIMARY PHYSICIAN: Edy Newsome--MD Perla CONSULTATION: Otto Flynn MD HISTORY OF PRESENT ILLNESS: The patient is a 71-year-old white female. She is well known to me for many years. Longstanding history of coronary artery disease. History of inferior myocardial infarction in 1999. History of hypertension, dyslipidemia, diabetes mellitus, COPD, carotid artery disease (status post left CEA), peripheral vascular disease, chronic systolic heart failure. She recently underwent replacement of her biventricular ICD generator. No documented history of ventricular arrhythmias. She has never had a shock from her defibrillator. The patient has had multiple inpatient and ER visits at [facility] in February. She was hospitalized from 02/16/2017 through 02/21/2017 at [facility] for complaints of nausea and vomiting. She was felt to have developed aspiration pneumonia. During the hospitalization, she did undergo elective generator replacement of her pacemaker/ICD. She had another ER visit on February 26 for nausea. She had an observation admission on February 28 through March 01 for intractable nausea and vomiting. She re-presented to the Emergency Department on March 02. Her white blood cell count was elevated at 19.50. Her hemoglobin was 13.4. Her hematocrit was 40.9. Her blood pressure was 74/28 on arrival to the Emergency Department. Because of her hypotension, elevated white blood cell count (she was afebrile), and GI symptoms, it was felt that she could be suffering from mesenteric ischemia. She underwent a CT angiogram of her abdomen. This revealed by the radiology report advanced atherosclerotic disease throughout abdominal aorta and its major branches, no evidence of aortic dissection, patent iliac arteries, focal dissection in the right common femoral artery, high grade stenosis distal left common femoral artery with near complete occlusion, high-grade stenosis with near complete occlusion seen at the origin of both the iliac trunk and the superior mesenteric artery. Trace flow present within both vessels which were patent distally. 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 It was felt that these findings placed the patient at high risk for mesenteric ischemia. 75% stenosis at the origin of a single left renal artery. There was wall thickening identified throughout the descending colon which was felt to be "concerning for ischemic colitis." Advanced emphysema and cardiomegaly noted. Small volume of free fluid in the pelvis. Numerous bilateral nonobstructing renal calculi. No evidence of bowel obstruction. The patient was transferred to [facility] by helicopter transport. At [facility], she did not undergo any surgical procedures. It was felt that she was dehydrated. While at [facility] she had bright red blood in her stools. Her hemoglobin decreased. It was felt that she had a component of dehydration. It was felt also that her medications could have been contributing to her low blood pressure. She had been on furosemide 40 mg daily, lisinopril 40 mg daily, and amlodipine 7.5 mg daily. These were all discontinued. In the past, the patient has also been on spironolactone/HCTZ. She was on this at the time of her last visit with me in July. She is no longer on this medication. She was discharged home on March 06. The patient states that on the day of discharge she was noting that she was beginning to feel dyspnea. Normally, the patient does not have dyspnea at rest or with her normal activities. She normally has no orthopnea or PND. She normally does not have peripheral edema other than in hot and humid weather. She states that on the drive home from [place] she felt that she was becoming more short of breath. She was also developing peripheral edema. This started prior to her discharge. This was edema in her lower legs. That night she had difficulty in sleeping. She could not lie down secondary to dyspnea. She had to sleep upright. She began to develop worsening dyspnea on exertion as well as dyspnea at rest. Because of these symptoms, she came to the [facility] Emergency Department on the evening of 03/07/2017. Her chest x-ray revealed evidence of pulmonary edema and small bilateral pleural effusions. Her exam by the Emergency Department physician revealed that she had increased work of breathing. Her lung english were clear. Because of the development of probable left side congestive heart failure she was given intravenous furosemide. The patient was then admitted to the telemetry unit. Since admission, she has had a decrease in her dyspnea. She states she was able to sleep well last night with her head of bed elevated approximately 30 degrees. She can still not lie flat. Normally she sleeps with 1 pillow in the flat bed comfortably. Her peripheral edema has decreased. She denies any palpitations or lightheadedness. No chest pain or other anginal type pains. No current abdominal pain or nausea. Since her lower GI bleeding symptoms at [place], she has had no further GI bleeding complaints. Her stools are brown. No cerebrovascular complaints. No pain in her legs. PAST MEDICAL HISTORY: 1. Coronary artery disease. Cardiac catheterization in 1999 with 20% proximal LAD, 99% left circumflex, and 40% LAD diagonal stenosis, 40% mid RCA stenosis. Unsuccessful attempts at PTCA to the left circumflex stenosis. The lesion could not be crossed. 2. Ischemic cardiomyopathy. Most recent echocardiogram was performed on 02/17/2017. This revealed moderate aortic regurgitation, biatrial dilatation, severe mitral regurgitation, mild pulmonary hypertension, LV ejection fraction 25%-30%, lateral and apical akinesis. No significant change compared to an echocardiogram of November 2016. No significant change to an echocardiogram of 05/21/2015. 3. Cerebrovascular disease. Status post left carotid endarterectomy. 4. Peripheral vascular disease. Status post right iliofemoral endarterectomy and popliteal/SFA angioplasty 05/04/2013. Vascular studies October 2014 with MIRIAM on right of 0.98, on left 0.93. Abdominal ultrasound with evidence of stenoses in both the SMA and celiac arteries in the past. CT angiogram in February as reported above. 5. Chronic kidney disease. 6. Chronic obstructive pulmonary disease. 7. Chronic reflux esophagitis. 8. Dyslipidemia. 9. Hypertension. 10. History of hypomagnesemia. 12. Chronic left bundle-branch block. Status post biventricular pacemaker. 13. Status post implantation of ICD. No history of ventricular arrhythmias. 14. Claudication. 15. History of traumatic retroperitoneal hematoma. 16. Status post carpal tunnel release surgery. 17. Status post total abdominal hysterectomy with removal of both ovaries. 18. Type 2 diabetes mellitus. FAMILY HISTORY: History of IL in her mother. History of IL in her father. Family history of diabetes mellitus and renal disease.. ALLERGIES AND ADVERSE DRUG REACTIONS: SULFA DRUGS, MORPHINE. CURRENT MEDICATIONS: Aspirin 81 mg daily, atorvastatin 80 mg daily, Zetia 10 mg daily, Mirapex 0.5 mg at bedtime, clopidogrel 75 mg daily, carvedilol 25 mg b.i.d., fish oil 1 gram daily, Advair Diskus 1 puff b.i.d., sertraline 50 mg q.a.m., potassium 10 mEq b.i.d., furosemide 20 mg p.o. daily, DuoNeb 3 mL q.i.d., NovoLog sliding-scale insulin. Several p.r.n. medications. REVIEW OF SYSTEMS: 1. As above. 2. No current complaints of pain anywhere in her body. 3. No current HEENT complaints. 4. No cerebrovascular complaints. 5. No urinary complaints. 6. No fevers or chills. 7. No cough. 8. Multiple ecchymoses on arms. She also recently sustained ecchymoses in her left pretibial regions. Intake and output today reported to be 150/3100. PHYSICAL EXAMINATION: GENERAL APPEARANCE: Shows her to be in no distress. She is sitting up in her bed at approximately 50 degree head of bed elevation. VITAL SIGNS: This morning with oral temperature 36.8, pulse 69, blood pressure 126/55, pulse oximetry on room air 97%. HEAD: Normal. EYES: Pupils are equal and round. Anicteric. Conjunctivae normal. No xanthelasma. NECK: Jugular venous pressure less than 7 cm. Carotids palpable bilaterally. Right carotid bruit. Normal upstroke. MOUTH: Dry mucous membranes. LUNGS: Decreased breath sounds in the lower lung english. Scant rales right base which resolve with deep breathing. No wheezes. HEART: PMI normal. No lifts or heaves. Regular rate and rhythm. S1, S2 normal. No gallop or rub heard. 2/6 systolic murmur second right intercostal space and left lower sternal border. No diastolic murmur heard. ABDOMEN: Nontender. Normal bowel sounds. No palpable masses or organomegaly. No bruits heard. EXTREMITIES: Trace to 1+ pretibial edema bilaterally. No calf tenderness. SKIN: Ecchymoses on both forearms. Ecchymoses left pretibial region. NEUROLOGIC: Alert and oriented x3. Motor grossly intact. PSYCHIATRIC: Affect normal. DATA: Electrocardiogram March 07 and reviewed by me shows atrial sensed ventricular paced rhythm. Underlying sinus rhythm. Chest x-ray performed March 07 and reviewed by me shows a biventricular pacemaker/ICD. Increased interstitial markings. Increased pulmonary vasculature. Small bilateral pleural effusions. LABORATORY DATA: Today with WBC 4.96, hemoglobin 9.0, hematocrit 27.7, platelet count 113. Sodium 140, potassium 3.6, chloride 102, carbon dioxide 31, BUN 9, creatinine 0.69, random glucose 87. Magnesium 1.6. Troponin I's on this admission have been 0.132 and 0.105. ProB natriuretic peptide greater than 20,000. Albumin 2.4. AST 43. ALT 80. Labs from March 07 of INR 1.0 and PTT 29.7. ASSESSMENT: 1. Longstanding history of ischemic cardiomyopathy. Severe left ventricular systolic dysfunction. 2. Acute or chronic systolic heart failure. This is related to discontinuation of her furosemide and lisinopril. The patient has been compliant with her other medications. She has been compliant of low sodium diet. When she was on the furosemide and lisinopril (as well as amlodipine) she had a very stable cardiac status. She had a class II heart failure. Since discontinuation of these medications, she developed class IV heart failure. The medications were discontinued at [facility] because it was felt that dehydration could be contributing to her mesenteric ischemia. It was also felt best that she maintain a higher blood pressure than usual to help maintain perfusion in her mesenteric vessels. Her failure has improved since last evening with significant diuresis. On exam today, she actually has evidence of volume depletion. She has dry mucous membranes. No evident jugular venous pulsations sitting up at 45-50 degree angle. 3. Longstanding history of coronary artery disease. No anginal symptoms. Troponin I is very minimally elevated. Suspect secondary to increased myocardial oxygen demand. I do not suspect any acute coronary process. 4. History of hypertension. Blood pressure normal this morning. 5. History of renal insufficiency. Creatinine this morning is actually normal. Her estimated creatinine clearance today is good at 87. 6. Longstanding history of hypomagnesemia. This is again evident on this admission. Her potassium level is normal. 7. Low serum albumin. This could be contributing to development of her pleural effusions and peripheral edema. Also, she had evidence of fluid in her abdomen on recent CT scan. Certainly she also has probable elevated right heart pressures. Both of these factors would contribute to development of fluid retention. 8. Severe stenoses in her abdominal vasculature. No current symptoms of nausea or abdominal discomfort. 9. Anemia secondary to recent lower gastrointestinal bleed. This is felt to be secondary to mesenteric ischemia. It was felt best by the physicians at [place] that she be maintained on dual antiplatelet therapy with aspirin and clopidogrel. 10. Cerebrovascular disease. No current signs or symptoms of cerebral ischemia. 11. Biventricular pacemaker/ implantable cardioverter-defibrillator. This is functioning properly on monitoring. She has never had a discharge from her defibrillator. RECOMMENDATIONS: 1. Agree with restarting furosemide at a lower dose of 20 mg daily. 2. If her blood pressure and renal function remains stable and we would reinstitute low dose WALTER inhibitor therapy with lisinopril 5 mg daily. Prior to her recent illnesses she was on 40 mg daily. 3. Continue to hold amlodipine. 4. If her renal function and potassium remains stable with the above medications, will ultimately restart her on an aldosterone antagonist. In the past, she had been on spironolactone. This was discontinued recently. 5. No further cardiac workup revaluation at this time. 6. Continue vascular follow up at [facility]. Thank you for asking us to see this patient in cardiology consultation.
[2017-03-08] MEDS: ACETAMINOPHEN 325 MG TAB PO PRN (19:52)
[2017-03-08] MEDS: EZETIMIBE 10MG TAB PO SCH (20:57)
[2017-03-08] MEDS: ATORVASTATIN 40 MG TAB PO SCH (20:57)
[2017-03-08] MEDS: PRAMIPEXOLE DIHYDROCHLORIDE 0.25MG TAB PO SCH (20:58)
[2017-03-08] MEDS: ASPIRIN 81 MG ECTAB PO SCH (20:58)
[2017-03-09] VITALS (11 sets, daily range): BP systolic 109–127; BP diastolic 42–62; PULSE 84–96; TEMP 36.5–37.2; O2SAT 90–99
[2017-03-09 06:39] LABS: HEMATOCRIT 26.6 % (37-47); MEAN CELL VOLUME 92.7 fL (80-100); MEAN CORPUSCULAR HGB CONC 33.5 g/dl (32-36); PLATELET COUNT 130 K/uL (130-400); RED BLOOD COUNT 2.87 M/uL (4.2-5.4)
[2017-03-09] MEDS: ALBUT/IPRATROP 3MG/0.5MG NEB 3 ML VIAL INH SCH ×4 (06:58→19:16)
[2017-03-09] MEDS: INSULIN ASPART 100 UNITS/ML 3 ML PEN SC SCH ×4 (07:00→20:27)
[2017-03-09 07:08] LABS: BUN/CREATININE RATIO 10.5 (10-20); CREATININE 0.87 mg/dl (0.60-1.20); POTASSIUM 3.6 mmol/L (3.5-5.1)
[2017-03-09] MEDS: POTASSIUM CHLORIDE 10 MEQ TABCR PO SCH ×2 (07:59→20:55)
[2017-03-09] MEDS: CLOPIDOGREL BISULFATE 75 MG TAB PO SCH (07:59)
[2017-03-09] MEDS: SERTRALINE HCL 50 MG TAB PO SCH (07:59)
[2017-03-09] MEDS: MAGNESIUM OXIDE 400 MG TAB PO SCH (07:59)
[2017-03-09] MEDS: FLUTICASONE/SALMETEROL (ADVAIR) 500/50 INH 14 PUFF INH SCH ×2 (07:59→20:55)
[2017-03-09] MEDS: CARVEDILOL 25 MG TAB PO SCH ×2 (08:00→20:55)
[2017-03-09] MEDS: OMEGA-3 (PURIFIED FISH OIL) 1 GM CAP PO SCH (08:00)
[2017-03-09] MEDS: FUROSEMIDE 20 MG TAB PO SCH (08:00)
[2017-03-09] MEDS ORDERED: VANCOMYCIN TROUGH SCH (09:30)
--- NOTE | 2017-03-09 12:05 | CARDIOLOGY PROGRESS NOTE ---
DATE: 03/09/2017 DATE: 03/09/2017. SUBJECTIVE: Mrs. Jameson is resting comfortably in bed without complaints of chest pain or dyspnea. Did not experience PND or orthopnea last evening. She is happy with her current status. OBJECTIVE: VITAL SIGNS: Blood pressure is 127/42 with a regular pulse of 80. Respiratory rate is 18. The patient is afebrile at 36.8 degrees Celsius. Saturations 95% on room air. NECK: Supple with full carotid upstrokes. A quiet right-sided bruit is noted. Jugular venous pressure is flat at 90 degrees. There is no thyromegaly. CARDIOVASCULAR EXAMINATION: Reveals a regular rhythm with normal S1 and S2. A 2/6 systolic murmur is heard along the right sternal border. No diastolic murmurs. No S3. LUNGS: Clear without rales, rhonchi, or wheezes. ABDOMEN: Soft without bruits. EXTREMITIES: Reveal intact radial artery pulses bilaterally. There is no peripheral edema. LABORATORY DATA: CBC notes a hemoglobin of 8.9, hematocrit 26.6, white count 4.6, platelet count 130,000. Electrolytes note a sodium of 138, potassium 3.6, chloride 100, bicarbonate 30, BUN 9, creatinine 0.87, glucose 103. monitoring and evaluation advisor is benign with evidence of appropriate ventricular pacing. IMPRESSION AND PLAN: 1. Acute on chronic systolic congestive heart failure -- patient is improving with reinstitution of her diuretics. Will restart lisinopril, possibly tomorrow. Seems compensated today. 2. Ischemic cardiomyopathy -- ejection fraction of 25-30%. 3. Coronary artery disease -- minimal troponin elevation. Would continue with medical management. 4. Biventricular implantable cardioverter-defibrillator - proper function at the time of last interrogation. 5. Peripheral vascular disease -- severe. Continues followup at [facility]. 6. Hypertension -- controlled. 7. Hypercholesterolemia -- continue statin. 8. Chronic renal insufficiency. 9. Cerebrovascular disease.
--- NOTE | 2017-03-09 12:49 | Family Medicine Progress Note ---
Progress Note Date of Service Mar 09, 2017. Subjective Pt evaluation today including: conversation w/ patient, physical exam, chart review, lab review, review of studies Pain: 0/10 PO Intake: WNL Voiding: no voiding problems Feeling very well this morning When discussing discharge she has a lot of hesitation regarding this because she states she comes back so frequently she just wants to make sure she is very stable for d/c Constitutional: No fever Eyes: No worsening of vision ENT: No hearing loss Respiratory: No cough, No sputum, No wheezing, No shortness of breath, No dyspnea on exertion Cardiovascular: No chest pain Abdomen: No pain, No nausea, No vomiting, No diarrhea, No constipation Musculoskeletal: + swelling (improved), No joint pain, No muscle pain Female : No dysuria Neurologic: No weakness, No balance problems Psychiatric: No depression symptoms Endo: No fatigue Medications Medications Administered Medications (Trade) Dose Ordered Sig/Osmani Route Start Time Stop Time Status Last Admin Dose Admin Furosemide (Lasix Inj) 40 mg NOW STAT IV 03/07/17 22:07 03/07/17 22:08 DC 03/07/17 22:15 40 MG Acetaminophen (Tylenol Tab) 650 mg Q4H PRN PO 03/07/17 23:15 04/06/17 23:14 03/08/17 19:52 650 MG Zolpidem Tartrate (Ambien Tab) 5 mg HSZ PRN PO 03/07/17 23:15 04/06/17 23:14 03/08/17 21:20 5 MG Albuterol/ Ipratropium (Duoneb) 3 ml QIDR INH 03/08/17 08:00 04/07/17 07:59 03/09/17 11:10 3 ML Aspirin (Ecotrin Tab) 81 mg PM PO 03/08/17 21:00 04/07/17 20:59 03/08/17 20:58 81 MG Atorvastatin Calcium (Lipitor Tab) 80 mg HS PO 03/08/17 21:00 04/07/17 20:59 03/08/17 20:57 80 MG Carvedilol (Coreg Tab) 25 mg BID PO 03/08/17 09:00 04/07/17 08:59 03/09/17 08:00 25 MG Clopidogrel Bisulfate (plAVix TAB) 75 mg QAM PO 03/08/17 09:00 03/08/17 09:00 DC 03/08/17 07:59 75 MG EZETIMIBE (Zetia Tab) 10 mg HS PO 03/08/17 21:00 04/07/17 20:59 03/08/17 20:57 10 MG Fish Oil ([place]-3 (Purified Fish Oil) Cap) 1 gm DAILY PO 03/08/17 09:00 04/07/17 08:59 03/09/17 08:00 1 GM Salmeterol Xinafoate/ Fluticasone (Advair Diskus 500/50 Inh) 1 puff BID INH 03/08/17 09:00 04/07/17 08:59 03/09/17 07:59 1 PUFF Pramipexole Dihydrochloride (miraPEX TAB) 0.25 mg HS PO 03/08/17 21:00 04/07/17 20:59 03/08/17 20:58 0.25 MG Sertraline HCl (Zoloft Tab) 50 mg QAM PO 03/08/17 09:00 04/07/17 08:59 03/09/17 07:59 50 MG Potassium Chloride (Klor-Con M10) 10 meq BID PO 03/08/17 09:00 04/07/17 08:59 03/09/17 07:59 10 MEQ Furosemide (Lasix Tab) 20 mg QAM PO 03/08/17 09:00 04/07/17 08:59 03/09/17 08:00 20 MG Clopidogrel Bisulfate (plAVix TAB) 75 mg QAM PO 03/08/17 10:00 04/07/17 09:59 03/09/17 07:59 75 MG Magnesium Oxide (Mag-Ox Tab) 400 mg QAM PO 03/09/17 09:00 04/08/17 08:59 03/09/17 07:59 400 MG Objective Vital Signs Date Time Temp Pulse Resp B/P (MAP) Pulse Ox O2 Delivery O2 Flow Rate FiO2 03/09/17 12:23 Room Air 03/09/17 12:13 36.7 91 20 123/46 (71) 93 Room Air 03/09/17 11:10 84 16 96 Room Air 03/09/17 08:06 36.6 92 16 127/42 (70) 95 Room Air 0.0 03/09/17 08:00 96 Room Air 2.0 03/09/17 06:58 90 16 96 Room Air 03/09/17 04:26 36.5 91 18 123/46 (71) 92 Room Air 03/09/17 04:00 Room Air 03/09/17 00:00 Room Air 03/08/17 23:42 36.6 86 16 116/57 (76) 92 Room Air 03/08/17 20:00 Room Air 03/08/17 19:33 36.4 101 18 132/52 (78) 92 Room Air 03/08/17 18:58 97 16 92 Room Air 03/08/17 16:00 Room Air 03/08/17 15:39 36.5 96 20 126/46 (72) 93 Room Air 03/08/17 15:24 95 16 93 Room Air Physical Exam General Appearance: no apparent distress Eyes: normal inspection ENT: normal ENT inspection Neck: supple Respiratory/Chest: normal breath sounds, no respiratory distress, no accessory muscle use, + decreased breath sounds (bilat bases) Cardiovascular: regular rate, rhythm, no murmur Abdomen: normal bowel sounds, non tender, soft Extremities: non-tender, normal inspection, no calf tenderness, + pedal edema ( trace) Neurologic/Psychiatric: alert, normal mood/affect, oriented x 3 Skin: normal color, warm/dry, no rash Lymphatic: no adenopathy Laboratory Results Results Past 24 Hours Test 03/08/17 16:15 03/08/17 20:58 03/09/17 04:29 03/09/17 05:45 Range/Units Bedside Glucose 102 114 86 70-90 mg/dl White Blood Count 4.60 4.8-10.8 K/uL Red Blood Count 2.87 4.2-5.4 M/uL Hemoglobin 8.9 12.0-16.0 g/dL Hematocrit 26.6 37-47 % Mean Corpuscular Volume 92.7 80-100 fL Mean Corpuscular Hemoglobin 31.0 25-34 pg Mean Corpuscular Hemoglobin Concent 33.5 32-36 g/dl RDW Standard Deviation 53.2 36.4-46.3 fL RDW Coefficient of Variation 15.5 11.5-14.5 % Platelet Count 130 130-400 K/uL Mean Platelet Volume 10.0 7.4-10.4 fL Sodium Level 138 136-145 mmol/L Potassium Level 3.6 3.5-5.1 mmol/L Chloride Level 100 98-107 mmol/L Carbon Dioxide Level 30 21-32 mmol/L Anion Gap 8.0 3-11 mmol/L Blood Urea Nitrogen 9 7-18 mg/dl Creatinine 0.87 0.60-1.20 mg/dl Est Creatinine Clear Calc Drug Dose 46.2 ml/min Estimated GFR () 77.1 Estimated GFR (Non- 66.6 BUN/Creatinine Ratio 10.5 10-20 Random Glucose 103 70-99 mg/dl Calcium Level 8.0 8.5-10.1 mg/dl Test 03/09/17 06:32 03/09/17 11:14 Range/Units Bedside Glucose 108 125 70-90 mg/dl Assessment and Plan This is a 71 yo f with a history of COPD, CHF, vasculopathy (chronic mesenteric ischemia) that is suffering from acute on chronic systolic CHF secondary to fluid overload possibly due to IVF received for dehydration during prior hospitalization at [facility], in absence of diuretics Acute on Chronic systolic CHF - Per [facility]: - continue 20 mg of lasix daily - Patient was on lisinopril and spironolactone prior to admission to [facility] which was also d/c by them for concern of dehydration - As per rec will start lisinopril 5 mg (original 40 mg) - eventually plan to start spironolactone - on coreg 25mgs bid - hold for sbp <90 - hold amlodipine Anemia, Thrombocytopenia, Recent GI bleed - awaiting FOBT - most recent Hgb 9.0, continue to follow - thrombocytopenia improving - normocytic anemia on peripheral smear Possible acute exacerbation of COPD attributing to the CHF- much improved - Duoneb q 4 h - continue Advair Ischemic cardiomyopathy with AICD and Pacer; HTN - continue ASA and Plavix ( Benefit > risk) - continue coreg - most recent echo February 2016 The left ventricle is moderately dilated. * Left ventricular systolic function is severely reduced. EF 20-35% * There are regional wall motion abnormalities as specified. * The right ventricular systolic function is mildly reduced. * The left atrium is severely dilated. * The right atrium is moderately dilated. * Mild to moderate aortic regurgitation. * There is severe mitral regurgitation. * Right ventricular systolic pressure is elevated at 30-40mmHg. * Compared to an echocardiogram performed in 11/2016, there is no significant change Hypomagnesemia - will recheck tomorrow and replete accordingly GERD - continue zetia HLD - continue Atorvastatin DM ii - metformin held - insulin ISS while here [place] - mirapex DVT Prophylaxis - SCD Continued [facility] stay due to: other Discharge planning: uncertain Reviewed: Pt Seen/Exam by Me History shortness of breath and leg edema much improved Constitutional: denies: fever Respiratory: negative: short of breath Cardiovascular: denies chest pain General Appearance: no apparent distress Respiratory: lungs clear, no respiratory distress Cardiovascular: regular rate, rhythm, no edema Neurologic/Psychiatric: alert, oriented x 3 Skin Characteristics: warm/dry Assessment/Plan I have reviewed the medical record and performed a history and physical examination of this patient today. I have discussed the case with Dr. Calderón. The above note reflects my findings, conclusions, and recommendations.
[2017-03-09] MEDS: ACETAMINOPHEN 325 MG TAB PO PRN (14:04)
[2017-03-09] MEDS: ZOLPIDEM TARTRATE 5 MG TAB PO PRN (20:54)
[2017-03-09] MEDS: EZETIMIBE 10MG TAB PO SCH (20:54)
[2017-03-09] MEDS: ATORVASTATIN 40 MG TAB PO SCH (20:55)
[2017-03-09] MEDS: PRAMIPEXOLE DIHYDROCHLORIDE 0.25MG TAB PO SCH (20:55)
[2017-03-09] MEDS: ASPIRIN 81 MG ECTAB PO SCH (20:55)
[2017-03-10] VITALS (11 sets, daily range): BP systolic 115–127; BP diastolic 38–71; PULSE 82–96; TEMP 36.4–37.2; O2SAT 92–98
[2017-03-10 05:57] LABS: HEMATOCRIT 25.9 % (37-47); MEAN CELL VOLUME 91.8 fL (80-100); MEAN CORPUSCULAR HEMOGLOBIN 32.6 pg (25-34); MEAN CORPUSCULAR HGB CONC 35.5 g/dl (32-36); MEAN PLATELET VOLUME 9.5 fL (7.4-10.4); PLATELET COUNT 166 K/uL (130-400); RED BLOOD COUNT 2.82 M/uL (4.2-5.4); WHITE BLOOD COUNT 4.95 K/uL (4.8-10.8)
[2017-03-10 06:29] LABS: CALCIUM 8.1 mg/dl (8.5-10.1); CREATININE 0.83 mg/dl (0.60-1.20); MAGNESIUM 1.8 mg/dl (1.8-2.4); POTASSIUM 4.3 mmol/L (3.5-5.1)
[2017-03-10] MEDS: INSULIN ASPART 100 UNITS/ML 3 ML PEN SC SCH ×4 (07:00→21:00)
[2017-03-10] MEDS: ALBUT/IPRATROP 3MG/0.5MG NEB 3 ML VIAL INH SCH ×4 (07:05→19:04)
[2017-03-10] MEDS: SERTRALINE HCL 50 MG TAB PO SCH (07:58)
[2017-03-10] MEDS: FLUTICASONE/SALMETEROL (ADVAIR) 500/50 INH 14 PUFF INH SCH ×2 (07:58→20:58)
[2017-03-10] MEDS: CLOPIDOGREL BISULFATE 75 MG TAB PO SCH (07:59)
[2017-03-10] MEDS: FUROSEMIDE 20 MG TAB PO SCH (07:59)
[2017-03-10] MEDS: LISINOPRIL 5 MG TAB PO SCH (07:59)
[2017-03-10] MEDS: MAGNESIUM OXIDE 400 MG TAB PO SCH (07:59)
[2017-03-10] MEDS: CARVEDILOL 25 MG TAB PO SCH ×2 (08:00→20:59)
[2017-03-10] MEDS: OMEGA-3 (PURIFIED FISH OIL) 1 GM CAP PO SCH (08:00)
[2017-03-10] MEDS: POTASSIUM CHLORIDE 10 MEQ TABCR PO SCH ×2 (08:02→21:10)
--- NOTE | 2017-03-10 11:21 | Family Medicine Progress Note ---
Progress Note Date of Service Mar 10, 2017. Subjective Pt evaluation today including: conversation w/ patient, physical exam, chart review, lab review, review of studies Pain: 0/10 PO Intake: WNL Voiding: no voiding problems Patient states she has ongoing improvement in her SOB however still is unable to lay flat to sleep still, she was able to do this prior to the recent [place] admission questions and concerns addressed Constitutional: No fever Eyes: No worsening of vision ENT: No hearing loss Respiratory: + dyspnea at rest, + problem reported (orthopnea), No cough, No sputum, No wheezing, No shortness of breath, No dyspnea on exertion Cardiovascular: No chest pain Abdomen: No pain, No nausea, No vomiting, No diarrhea, No constipation Musculoskeletal: + swelling (much improved), No joint pain, No muscle pain Female : No dysuria, No hematuria Neurologic: No weakness, No balance problems Psychiatric: No depression symptoms Heme: No abnormal bleeding/bruising Endo: No fatigue Skin: No rash Medications Medications Administered Medications (Trade) Dose Ordered Sig/Osmani Route Start Time Stop Time Status Last Admin Dose Admin Furosemide (Lasix Inj) 40 mg NOW STAT IV 03/07/17 22:07 03/07/17 22:08 DC 03/07/17 22:15 40 MG Acetaminophen (Tylenol Tab) 650 mg Q4H PRN PO 03/07/17 23:15 04/06/17 23:14 03/09/17 14:04 650 MG Zolpidem Tartrate (Ambien Tab) 5 mg HSZ PRN PO 03/07/17 23:15 04/06/17 23:14 03/09/17 20:54 5 MG Albuterol/ Ipratropium (Duoneb) 3 ml QIDR INH 03/08/17 08:00 04/07/17 07:59 03/10/17 07:05 3 ML Aspirin (Ecotrin Tab) 81 mg PM PO 03/08/17 21:00 04/07/17 20:59 03/09/17 20:55 81 MG Atorvastatin Calcium (Lipitor Tab) 80 mg HS PO 03/08/17 21:00 04/07/17 20:59 03/09/17 20:55 80 MG Carvedilol (Coreg Tab) 25 mg BID PO 03/08/17 09:00 04/07/17 08:59 03/10/17 08:00 25 MG Clopidogrel Bisulfate (plAVix TAB) 75 mg QAM PO 03/08/17 09:00 03/08/17 09:00 DC 03/08/17 07:59 75 MG EZETIMIBE (Zetia Tab) 10 mg HS PO 03/08/17 21:00 04/07/17 20:59 03/09/17 20:54 10 MG Fish Oil ([place]-3 (Purified Fish Oil) Cap) 1 gm DAILY PO 03/08/17 09:00 04/07/17 08:59 03/10/17 08:00 1 GM Salmeterol Xinafoate/ Fluticasone (Advair Diskus 500/50 Inh) 1 puff BID INH 03/08/17 09:00 04/07/17 08:59 03/10/17 07:58 1 PUFF Pramipexole Dihydrochloride (miraPEX TAB) 0.25 mg HS PO 03/08/17 21:00 04/07/17 20:59 03/09/17 20:55 0.25 MG Sertraline HCl (Zoloft Tab) 50 mg QAM PO 03/08/17 09:00 04/07/17 08:59 03/10/17 07:58 50 MG Potassium Chloride (Klor-Con M10) 10 meq BID PO 03/08/17 09:00 04/07/17 08:59 03/10/17 08:02 10 MEQ Furosemide (Lasix Tab) 20 mg QAM PO 03/08/17 09:00 04/07/17 08:59 03/10/17 07:59 20 MG Clopidogrel Bisulfate (plAVix TAB) 75 mg QAM PO 03/08/17 10:00 04/07/17 09:59 03/10/17 07:59 75 MG Magnesium Oxide (Mag-Ox Tab) 400 mg QAM PO 03/09/17 09:00 04/08/17 08:59 03/10/17 07:59 400 MG Lisinopril (Zestril Tab) 5 mg QAM PO 03/10/17 09:00 04/09/17 08:59 03/10/17 07:59 5 MG Objective Vital Signs Date Time Temp Pulse Resp B/P (MAP) Pulse Ox O2 Delivery O2 Flow Rate FiO2 03/10/17 08:00 Room Air 03/10/17 07:52 36.4 88 20 127/49 (75) 95 Room Air 03/10/17 07:05 82 14 93 Room Air 03/10/17 04:00 Room Air 03/10/17 02:39 36.7 86 16 115/71 (86) 92 Room Air 03/10/17 00:00 Room Air 03/09/17 23:17 37.2 91 16 114/62 (79) 92 Room Air 03/09/17 20:00 Room Air 03/09/17 19:57 36.8 90 20 124/44 (70) 90 Room Air 03/09/17 19:16 93 14 94 Room Air 03/09/17 16:00 Room Air 03/09/17 15:47 36.6 88 18 109/49 (69) 99 Room Air 03/09/17 15:05 96 16 94 Room Air 03/09/17 12:23 Room Air 03/09/17 12:13 36.7 91 20 123/46 (71) 93 Room Air Physical Exam General Appearance: no apparent distress Eyes: normal inspection ENT: normal ENT inspection Neck: supple Respiratory/Chest: normal breath sounds, no respiratory distress, no accessory muscle use, + decreased breath sounds (bilat bases) Cardiovascular: regular rate, rhythm, no murmur Abdomen: normal bowel sounds, non tender, soft Extremities: non-tender, normal inspection, no calf tenderness, + pedal edema ( trace pedeal edema bilat) Neurologic/Psychiatric: alert, normal mood/affect, oriented x 3 Skin: normal color, warm/dry, no rash Lymphatic: no adenopathy Laboratory Results Results Past 24 Hours Test 03/09/17 16:04 03/09/17 20:19 03/10/17 05:37 03/10/17 06:38 Range/Units Bedside Glucose 123 128 109 70-90 mg/dl White Blood Count 4.95 4.8-10.8 K/uL Red Blood Count 2.82 4.2-5.4 M/uL Hemoglobin 9.2 12.0-16.0 g/dL Hematocrit 25.9 37-47 % Mean Corpuscular Volume 91.8 80-100 fL Mean Corpuscular Hemoglobin 32.6 25-34 pg Mean Corpuscular Hemoglobin Concent 35.5 32-36 g/dl RDW Standard Deviation 52.4 36.4-46.3 fL RDW Coefficient of Variation 15.5 11.5-14.5 % Platelet Count 166 130-400 K/uL Mean Platelet Volume 9.5 7.4-10.4 fL Sodium Level 134 136-145 mmol/L Potassium Level 4.3 3.5-5.1 mmol/L Chloride Level 99 98-107 mmol/L Carbon Dioxide Level 27 21-32 mmol/L Anion Gap 8.0 3-11 mmol/L Blood Urea Nitrogen 10 7-18 mg/dl Creatinine 0.83 0.60-1.20 mg/dl Est Creatinine Clear Calc Drug Dose 48.5 ml/min Estimated GFR () 81.7 Estimated GFR (Non- 70.4 BUN/Creatinine Ratio 12.0 10-20 Random Glucose 95 70-99 mg/dl Calcium Level 8.1 8.5-10.1 mg/dl Magnesium Level 1.8 1.8-2.4 mg/dl Test 03/10/17 10:57 Range/Units Bedside Glucose 123 70-90 mg/dl Assessment and Plan This is a 71 yo f with a history of COPD, CHF, vasculopathy (chronic mesenteric ischemia) that is suffering from acute on chronic systolic CHF secondary to fluid overload possibly due to IVF received for dehydration during prior hospitalization for mesenteric ischemia at [facility], in absence of diuretics Acute on Chronic systolic CHF - Per [facility]: - continue 20 mg of lasix daily - Patient was on lisinopril and spironolactone prior to admission to [place] which was also d/c by them for concern of dehydration - As per rec will start lisinopril 5 mg (original 40 mg) - eventually plan to start spironolactone - on coreg 25mgs bid - hold for sbp <90, patient was originally on 37.5mg bid per hospital records - hold amlodipine Anemia, Thrombocytopenia, Recent GI bleed- stable - awaiting FOBT - most recent Hgb 9.0, continue to follow - thrombocytopenia resolved - normocytic anemia on peripheral smear Possible acute exacerbation of COPD attributing to the CHF- much improved - Duoneb q 4 h prn - continue Advair Ischemic cardiomyopathy with AICD and Pacer; HTN - continue ASA and Plavix ( Benefit > risk) - continue coreg at the new dose - most recent echo February 2016 The left ventricle is moderately dilated. * Left ventricular systolic function is severely reduced. EF 20-35% * There are regional wall motion abnormalities as specified. * The right ventricular systolic function is mildly reduced. * The left atrium is severely dilated. * The right atrium is moderately dilated. * Mild to moderate aortic regurgitation. * There is severe mitral regurgitation. * Right ventricular systolic pressure is elevated at 30-40mmHg. * Compared to an echocardiogram performed in 11/2016, there is no significant change Recent hospitalization at [facility] for mesenteric ischemia - Avoid hypotension - for surgery as outpatient Hypomagnesemia- resolved - will recheck in 2 days HLD - continue Atorvastatin, zetia DM ii - metformin held - insulin ISS while here [facility] - mirapex DVT Prophylaxis - SCD Continued [facility] stay due to: other Discharge planning: uncertain Reviewed: Pt Seen/Exam by Me Constitutional: denies: fever Respiratory: negative: short of breath Cardiovascular: denies chest pain Gastrointestinal/Abdominal: negative: abdominal pain, constipation, diarrhea, nausea General Appearance: no apparent distress Respiratory: lungs clear, normal breath sounds, no respiratory distress Cardiovascular: regular rate, rhythm, systolic murmur Gastrointestinal: normal bowel sounds, non tender, soft Neurologic/Psychiatric: alert, oriented x 3 Skin Characteristics: warm/dry Assessment/Plan I have reviewed the medical record and performed a history and physical examination of this patient today. I have discussed the case with Dr. Calderón. The above note reflects my findings, conclusions, and recommendations.
[2017-03-10] MEDS ORDERED: ALBUT/IPRATROP 3MG/0.5MG NEB 3 ML VIAL INH PRN (11:30)
[2017-03-10] MEDS ORDERED: SPIRONOLACTONE 25 MG TAB PO ONE (12:00)
--- NOTE | 2017-03-10 13:23 | PROGRESS NOTE ---
DATE: 03/10/2017 SUBJECTIVE: The patient was seen by me this morning in her telemetry unit room. She states that overall she is feeling better than at the time of admission. Overnight, she had 2 brief episodes of mild dyspnea. This required her to sit up. This morning, she has no dyspnea at rest or lying down in bed. No dyspnea walking about the room. She has no lightheadedness or syncope. No palpitations. No anginal-type pains. No abdominal pain or nausea. Her appetite is decreased, but stable for her. No complaints of any leg pain. No cerebrovascular or peripheral vascular complaints. No symptoms of GI bleeding. No other bleeding complaints. No urinary complaints. Last night with the dyspnea, she had no associated wheezing. She denies any cough. CURRENT MEDICATIONS: Lisinopril 5 mg daily, magnesium oxide 400 mg daily, aspirin 81 mg daily, atorvastatin 80 mg at bedtime, Zetia 10 mg at bedtime, Mirapex 0.25 mg at bedtime, clopidogrel 75 mg daily, carvedilol 25 mg b.i.d., fish oil 1 g daily, Advair Diskus 1 puff b.i.d. (500/50), Zoloft 50 mg q.a.m., potassium 10 mEq b.i.d., furosemide 20 mg daily, DuoNeb 3 mL q.i.d., NovoLog sliding scale insulin, and several p.r.n. medications. ALLERGIES AND ADVERSE DRUG REACTIONS: MORPHINE AND SULFA ANTIBIOTICS. PHYSICAL EXAMINATION: GENERAL: The patient is sitting in her bed. No distress. VITAL SIGNS: At 11:38 a.m. today with oral temperature is 36.6, pulse 84, blood pressure 118/38, pulse oximetry room air 98%. NECK: Jugular venous pressure approximately 7 cm. LUNGS: Normal respiratory effort. Clear. No rales or wheezes. HEART: Regular rate and rhythm. 2/6 systolic murmur in second intercostal space. No diastolic murmur or rub. No S3 or S4. ABDOMEN: Normal bowel sounds. Soft. Mild right lower quadrant tenderness. No palpable masses or organomegaly. EXTREMITIES: Trace pretibial edema bilaterally. No calf tenderness. NEUROLOGIC: Alert and oriented x3. Motor grossly intact. PSYCHIATRIC: Affect is normal. LABORATORY DATA: Intake and output on 03/08/2017 was 650/3925. On 03/09/2017, 1140/2500. Today's weight 51.8 kg. Yesterday's weight 52.2 kg. Weight at the time of admission was 55.2 kg. Labs this morning with WBC 4.95, hemoglobin 9.2, hematocrit 25.9, platelet count 166. Metabolic profile today with sodium 134, potassium 4.3, chloride 99, carbon dioxide 27, BUN 10, creatinine 0.3, random glucose 95. Magnesium 1.8. ASSESSMENT: 1. Severe left ventricular systolic dysfunction secondary to ischemic cardiomyopathy. 2. Acute on chronic systolic heart failure. This has improved since admission with diuresis. No evidence of pulmonary vascular congestion on exam this morning. She did have some mild orthopnea overnight. She is having a steady and mild diuresis over the past few days. This is on low-dose oral diuretics. Exacerbation of her heart failure secondary to recent discontinuation of her diuretics and afterload reduction therapy when she was hospitalized at [facility]. This had been done to help improve her volume status and blood pressure in light of mesenteric ischemia. 3. Stable renal function and potassium on lisinopril and furosemide. 4. Mesenteric ischemia. Severe diffuse atherosclerotic disease in her abdominal vasculature. No current nausea or abdominal pain. She does have mild right lower quadrant tenderness on exam. 5. Anemia. Despite the diuresis since admission, her hemoglobin has slightly decreased since admission. Her hemoglobin on 02/16/2017 was 13.3. Since then, she has had evidence of GI bleeding. No current signs or symptoms of GI bleeding. Although, she has the significant anemia and evidence of GI bleeding was felt by the vascular and GI consultants at [facility] that she should remain on dual antiplatelet therapy to help prevent thrombus formation in her abdominal vasculature. She has severe underlying atherosclerotic stenoses in her abdominal vasculature. PLAN: 1. Continue current dose of lisinopril and spironolactone. 2. Restart her on aldosterone antagonist therapy. We will start with spironolactone 25 mg daily, first dose today. 3. Continue to monitor hemoglobin on a daily basis. 4. Monitor intake and output and weight on a daily basis. 5. Reassess renal function and potassium tomorrow. [facility]
[2017-03-10] MEDS: ASPIRIN 81 MG ECTAB PO SCH (20:59)
[2017-03-10] MEDS: ATORVASTATIN 40 MG TAB PO SCH (21:00)
[2017-03-10] MEDS: PRAMIPEXOLE DIHYDROCHLORIDE 0.25MG TAB PO SCH (21:02)
[2017-03-10] MEDS: EZETIMIBE 10MG TAB PO SCH (21:03)
[2017-03-10] MEDS: ZOLPIDEM TARTRATE 5 MG TAB PO PRN (21:09)
[2017-03-11] VITALS (8 sets, daily range): BP systolic 108–122; BP diastolic 33–64; PULSE 84–98; TEMP 36.9–37.4; O2SAT 90–95
[2017-03-11] MEDS: FUROSEMIDE 20 MG TAB PO SCH (05:38)
[2017-03-11] MEDS: POTASSIUM CHLORIDE 10 MEQ TABCR PO SCH (05:39)
[2017-03-11 06:49] LABS: HEMATOCRIT 27.5 % (37-47); MEAN CELL VOLUME 91.4 fL (80-100); MEAN CORPUSCULAR HEMOGLOBIN 30.6 pg (25-34); MEAN CORPUSCULAR HGB CONC 33.5 g/dl (32-36); PLATELET COUNT 218 K/uL (130-400); RED BLOOD COUNT 3.01 M/uL (4.2-5.4); WHITE BLOOD COUNT 3.99 K/uL (4.8-10.8)
[2017-03-11] MEDS: INSULIN ASPART 100 UNITS/ML 3 ML PEN SC SCH ×2 (07:00→11:00)
[2017-03-11] MEDS: ALBUT/IPRATROP 3MG/0.5MG NEB 3 ML VIAL INH SCH ×2 (07:03→11:08)
[2017-03-11 07:23] LABS: BUN/CREATININE RATIO 9.9 (10-20); CALCIUM 8.2 mg/dl (8.5-10.1); CREATININE 0.89 mg/dl (0.60-1.20); POTASSIUM 4.4 mmol/L (3.5-5.1)
[2017-03-11] MEDS: FLUTICASONE/SALMETEROL (ADVAIR) 500/50 INH 14 PUFF INH SCH (08:00)
[2017-03-11] MEDS: SERTRALINE HCL 50 MG TAB PO SCH (08:00)
[2017-03-11] MEDS: CLOPIDOGREL BISULFATE 75 MG TAB PO SCH (08:00)
[2017-03-11] MEDS: CARVEDILOL 25 MG TAB PO SCH (08:01)
[2017-03-11] MEDS: OMEGA-3 (PURIFIED FISH OIL) 1 GM CAP PO SCH (08:01)
[2017-03-11] MEDS: MAGNESIUM OXIDE 400 MG TAB PO SCH (08:02)
[2017-03-11] MEDS: LISINOPRIL 5 MG TAB PO SCH (08:02)
[2017-03-11] MEDS ORDERED: SPIRONOLACTONE 25 MG TAB PO SCH (09:00)
[2017-03-11] MEDS ORDERED: POLYETHYLENE (MIRALAX) 17 GM PACK PO SCH (09:00)
[2017-03-11] MEDS ORDERED: SENNA 8.6 MG TAB PO SCH (09:00)
--- NOTE | 2017-03-11 09:27 | PROGRESS NOTE ---
DATE: 03/11/2017 HISTORY OF PRESENT ILLNESS: The patient was seen by me this morning in the telemetry unit room. Overall, she is feeling well. She did have another episode this morning of feeling short of breath. No associated wheezing. No associated chest pain. With the episode her oxygen saturation was above 90% according to the patient. The symptom has since resolved. She stated it lasted for a few hours. She had no orthopnea throughout most of the night. No PND. No palpitations, lightheadedness or syncope. No abdominal pain or nausea. Her stools are brown in color. No bleeding in her stools. No black stools. No cerebrovascular or peripheral vascular complaints. No leg pain. She still has mild swelling of her lower legs. CURRENT MEDICATIONS: Spironolactone 25 mg daily, MiraLax 17 grams daily, Senna 17.2 mg daily, DuoNeb 3 mL q.i.d., lisinopril 5 mg daily, magnesium oxide 400 mg daily, aspirin 81 mg daily, atorvastatin 80 mg at bedtime, Zetia 10 mg at bedtime, Mirapex 0.5 mg at bedtime, clopidogrel 75 mg daily, carvedilol 25 mg b.i.d., fish oil 1 gram daily, Advair Diskus 500/50 one puff b.i.d., sertraline 50 mg daily, potassium 10 mEq b.i.d. and furosemide 20 mg daily a.m. Intake and output yesterday; 710/1575. Today; 120/1000. Today's weight reported to be 52.1 kg. Yesterday's weight reported to be 51.8 kg. PHYSICAL EXAMINATION: GENERAL APPEARANCE: Shows her to be in no distress. VITAL SIGNS: Oral temperature this morning was 37.4. Current heart rate 96 beats per minute. Monitor reveals ventricular paced rhythm. Room air oxygen saturation this morning was 93%. Blood pressure 122/49. NECK: No jugular venous distention. LUNGS: Normal respiratory effort. Clear. No rales or wheezes. HEART: Regular rate and rhythm. S1, S2 normal. Has 2/6 systolic murmur second right intercostal space. No diastolic murmur or rub. No S3 heard. ABDOMEN: Soft. Mild right lower quadrant tenderness. Normal bowel sounds. No bruits. EXTREMITIES: Has 1+ pretibial edema bilaterally. No calf tenderness. NEUROLOGIC: Alert and oriented x3. Motor grossly intact. PSYCHIATRIC: Affect is normal. LABORATORY DATA: This morning with WBC 3.99, hemoglobin 9.2, hematocrit 27.5 and platelet count 218. Metabolic profile; sodium 135, potassium 4.4, chloride 100, carbon dioxide 29, BUN 9, creatinine 0.89 and random glucose 92. ASSESSMENT: 1. Severe left ventricular systolic dysfunction, ischemic cardiomyopathy. 2. Acute on chronic systolic heart failure; precipitated by discontinuation of her diuretics and lisinopril at [facility]. Heart failure has improved with reinstitution of lower dose of furosemide. She is also tolerating low-dose lisinopril well thus far. 3. Stable renal function and potassium. 4. Adequate diuresis daily for the past 3 days. Today's weight is reported to be higher than yesterday's; this does not coincide with her intake and output recorded. 5. No evidence of pulmonary vascular congestion on exam today. 6. Continued peripheral edema. 7. Blood pressure, adequately controlled. 8. Severe atherosclerotic disease of her mesenteric vessels. No gastrointestinal bleeding complaints since she was at [facility]. Her hemoglobin is actually slightly higher today than yesterday. She is on dual antiplatelet therapy with aspirin and clopidogrel; this is to help prevent occlusion in her mesenteric vessels. RECOMMENDATIONS: 1. Continue the current dose of lisinopril, furosemide and spironolactone. 2. Consider discharge to home. 3. Arrange a followup in [facility] heart failure clinic for next week. 4. The patient was instructed to weigh herself daily. 5. Recommend for weight gain of greater than 2 pounds in one day an additional 20 mg of furosemide. MTDD
[2017-03-11] MEDS ORDERED: FRRS300 PO (13:58)
[2017-03-11] MEDS ORDERED: IPRA1AER2 INH (13:58)
[2017-03-11] MEDS ORDERED: LSX20 PO (13:58)
[2017-03-11] MEDS ORDERED: POTA-74 PO (13:58)
[2017-03-11] MEDS ORDERED: MGNO400 PO (13:58)
[2017-03-11] MEDS ORDERED: LSN5 PO (13:58)
[2017-03-11] MEDS ORDERED: SPR25 PO (13:58)
--- NOTE | 2017-03-11 14:08 | Discharge Instructions ---
Discharge Instructions Date of Service Mar 11, 2017. Admission Reason for Admission: Acute On Chronic Systolic Congestive Heart Failure Discharge Discharge Diagnosis / Problem: congestive heart failure - improved Discharge Goals Goal(s): Improve disease control, Learn about illness, Diagnostic testing, Therapeutic intervention Activity Recommendations Activity Limitations: resume your previous activity (as tolerated) . Instructions / Follow-Up Instructions / Follow-Up From Dr. Cuevas: 1. Congestive Heart failure instructions: Call your Primary Care doctor if any of the following symptoms or problems start or get worse: * Shortness of breath or difficulty breathing * Wake up at night short of breath * Chest pain * Cough * Swelling of your hands, feet, or legs * More fatigued or tired with your normal activity * Palpitations - sudden fast heart beats WEIGHT * Weigh yourself every morning after using the bathroom. * Use the same scale. * Wear the same amount of clothing. * Write your weight down on a chart. * Call your Primary Care doctor or legal aide if you gain more than 2-3 pounds in 1-2 days. If this occurs PLEASE TAKE AN EXTRA DOSE OF LASIX (TOTAL OF 40MG) AND AGAIN CALL DR. CAMERON OR DR. RAMIREZ. MEDICATIONS * Use this discharge instruction sheet for medication instructions. * Take your medications at the time your doctor ordered. * Do not skip a dose of your medicines. * If you miss a dose of medicine, take it as soon as possible, but DO NOT DOUBLE A DOSE. * Read your medicine information when you get home. * Know all of the side effects of your medicine. If in doubt, ask your pharmacist * Call your Primary Care doctor's office if you have any side effects. * Be sure all of your doctors know what medicine and herbs you take (including cold, flu, and herbal medicine). Take the following with you to your follow-up doctor appointments: * Weight Chart * Medication List * List of questions Do not drink excessive alcohol, beer or wine. 2. Diabetes - * because of your recent weight loss you have NOT required any metformin or insulin your entire hospital stay * at this time please STOP your metformin and simply follow your blood sugars once-twice daily * if the sugars remain less than 150 you can likely stay off your medication 3. Congestive heart failure medications - * take the following - * lasix (furosemide) 20mg every morning; you will take a double dose (40mg) if you start to see weight gain * spironolactone 25mg every morning * lisinopril 5mg daily * carvedilol 25mg twice daily 4. Anemia - * this is due to recent blood loss from your colon as well as frequent blood draws at the hospital * START ferrous sulfate 325mg twice daily * take each dose with a glass of orange juice * the iron will make your stool dark appearing and possibly give you constipation * if you develop constipation you will have to take a stool softener 5. COPD - * continue your advair twice a day * rinse your mouth with water after each use * take combivent 1 puff up to 4 times a day 6. thrush - * take nystatin solution, 1 teaspoon 4 times a day for 7-10 days * swish in your mouth and swallow 7. Keep your appointment with [facility] for your mesenteric ischemia/stenosis (blocked arteries in the abdomen) 8. See Dr. Cameron or one of his associates within ONE WEEK. 9. See Dr. Ramirez within 5 DAYS. 10. Please LOWER your potassium dose to 10meq ONCE A DAY (previously took it twice a day). Current Hospital Diet Patient's current hospital diet: AHA Diet (Heart Healthy), Low Sodium Diet (2gm Na) Discharge Diet Recommended Diet: Low Sodium Diet (2gm Na), Diabetes Type 2 Diet Procedures Procedures Performed: chest x-ray showing congestive heart failure Pending Studies Studies pending at discharge: no Laboratory Results Hemoglobin A1c Test 02/17/17 07:06 Range/Units Estimated Average Glucose 131 mg/dl Hemoglobin A1c 6.2 H 4.5-5.6 % Lipid Panel Test 01/30/17 13:22 Range/Units Triglycerides Level 59 0-150 mg/dl Cholesterol Level 99 0-200 mg/dl HDL Cholesterol 60 mg/dl Cholesterol/HDL Ratio 1.7 LDL Cholesterol, Calculated 27 mg/dl Medical Emergencies . Who to Call and When: Call 911 or go to the Emergency Room if: * If at any time you feel your situation is an emergency * You have tightness or pain in your chest that does not go away with rest or Nitroglycerin * You are very short of breath even with rest . Non-Emergent Contact Non-Emergency issues call your: Primary Care Provider, Guest Services Manager Call Non-Emergent contact if: temperature is above 100.5, your pain is concerning you, you have any medication questions You have any concerns that your congestive heart failure is becoming active - * increasing swelling in the legs * difficulty breathing with sleep or with activity * increase in weight (see other section for further details) OR You see blood in your stool, you have excessive vomiting, have recurrent abdominal pain, etc. . . "Provider Documentation" section prepared by Maninder Cuevas. . VTE Core Measure Inpt VTE Proph given/why not?: SCD's
[2017-03-11] MEDS ORDERED: NYSS5 PO (14:09)
[2017-03-11] MEDS ORDERED: IPRATROPIUM BROMIDE/ALBUTEROL respimat INH INH SCH (16:00)
--- NOTE | 2017-03-12 21:47 | Discharge Summary ---
Discharge Summary Date of Service Mar 11, 2017. 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 hypomagnesemia - resolved 3. anemia 4. known mesenteric ischemia - awaiting surgical intervention at [facility] 5. asthma/COPD 6. pacemaker/AICD status 7. CAD 8. thrush 9. T2DM 10. hyperlipidemia 11. severe PAD 12. +troponin - myocardial demand ischemia 2nd to acute/chronic CHF Immunizations: Have You Had Influenza Vaccine: Yes Influenza Vaccine Date: Oct 12, 2012 History of Tetanus Vaccine?: Unknown History of Pneumococcal: Unknown History of Hepatitis B Vaccine: No Procedures: chest x-ray with CHF Consultations: cardiology - Otto Flynn MD PT, OT Medication Reconciliation New Medications: Ferrous Sulfate (Ferrous Sulfate) 325 Mg Tab 325 MG PO BID, #60 TBS 2 Refills take each dose with a glass of orange juice Nystatin (Nystatin) 5 Ml Susp 5 ML PO QID for 10 Days, #200 ML 0 Refills swish and swallow Furosemide (Furosemide) 20 Mg Tab 20 MG PO QAM, #30 TAB 2 Refills for your heart and fluid Ipratropium-Albuterol (Combivent Respimat) 1 Aer Aer 1 PUFFS INH QID, #1 INHALER 2 Refills Lisinopril (Lisinopril) 5 Mg Tab 5 MG PO QAM, #30 TAB 2 Refills for your heart Magnesium Oxide (Magnesium-Oxide) 400 Mg Tab 400 MG PO QAM, #30 TAB 2 Refills Spironolactone (Spironolactone) 25 Mg Tab 25 MG PO QAM, #30 TAB 2 Refills for your heart and fluid Continued Medications: Acetaminophen (Tylenol) 500 Mg Tab 1000 MG PO Q6 PRN for Headache, TAB Aspirin (Aspirin Chewable) 81 Mg Chew 81 MG PO QPM, TAB Atorvastatin Calcium (Lipitor) 80 Mg Tab 80 MG PO HS, TAB Carvedilol (Coreg) 25 Mg Tab 25 MG PO BID, TAB Clopidogrel Bisulfate (Plavix) 75 Mg Tab 75 MG PO QAM, TAB Ezetimibe (Zetia) 10 Mg Tab 10 MG PO HS, TAB Fish Oil ([place]-3) 1 Ea Cap 1 CAP PO DAILY, CAP Fluticasone Prop/Salmeterol (Advair Diskus 500/50 60 Dose) 1 Ea Aerp 1 PUFFS INH BID, #180 Pramipexole Dihydrochloride (Pramipexole Dihydrochlori) 0.25 Mg Tab 1 TAB PO HS, #60 Sertraline (Zoloft) 50 Mg Tab 50 MG PO QAM, TAB Discontinued Medications: Albuterol Hfa (Ventolin Hfa) 200 Puffs/86856 Mcg Aers 2 PUFF INH QID PRN for Wheezing, #18 Metformin Hcl (Glucophage) 500 Mg Tab 500 MG PO BID, TAB Discharge Exam Physical Exam: General Appearance: no apparent distress, + thin ENT: + pertinent finding (thrush plaques on buccal mucosa) Neck: no JVD Respiratory/Chest: lungs clear, no respiratory distress, no accessory muscle use Cardiovascular: regular rate, rhythm, no gallop, + systolic murmur (2/6 LLSB ) Abdomen / GI: normal bowel sounds, non tender, soft, no organomegaly Extremities: + pedal edema (<trace b/l LEs) Neurologic/Psychiatric: alert, oriented x 3 Hospital Course HISTORY OF PRESENT ILLNESS: This is a 71yo female with chronic systolic CHF, COPD, PAD, and recently diagnosed mesenteric ischemia - currently awaiting surgery at [facility] later this summer - who presented with shortness of breath for 24 hours along with worsening peripheral edema and orthopnea. She was just hospitalized at [facility] from 03/03/17 to 03/06/17 for the mesenteric ischemia. She was assess by both GI (Dr Rincon) and vascular surgery (Dr Montenegro) while at [place]. She had mild acute blood loss anemia due to lower GI bleeding. Endoscopy was not performed during that stay. She was told to stop all diuretics during that hospitalization with the thought that these were causing dehydration and contributing to her mesenteric ischemia. Upon ED presentation she was found to be in acute CHF, given IV lasix, and experienced improvement of symptoms. HOSPITAL COURSE: The patient diuresed nearly 7 liters during her hospitalization with improvement in all pulmonary symptoms. She was seen in consult by Dr. Otto Flynn, [facility], who recommended the following - * ongoing use of coreg twice daily * addition of 25mg of spironolactone every morning * addition of low-dose lisinopril 5mg daily * reinstitution of lasix 20mg every morning with instructions to double the dose with ANY weight gain of more than 2 pounds On day of discharge she was seen by PT & OT who cleared her for home. O2 sats in room air with ambulation on day of discharge were >90%. The patient will see her PCP within 3 days of discharge due to the high- frequency of her hospitalizations and ER visits in the last 1-2 months. She will also see the cardiology (CHF) clinic in 1 week. She confirmed that she has follow-up with the vascular surgery clinic at [place] later in the summer for intervention of her mesenteric stenosis/ ischemia. She was further instructed to check daily weights and to call her PCP and/or fractionating still operator with any weight gain of more than 2-3 pounds in 1-2 days. Other issues addressed - 1. thrush - advised to take nystatin solution for 7-10 days. 2. anemia - advised to take iron (ferrous sulfate) twice daily for at least 1- 2 months. Discharge hemoglobin was 9.2. 3. T2DM - advised to STOP her metformin as she had lost a significant amount of weight in the last few months and she did NOT require any oral medications or insulin for her DM while hospitalized. She was encouraged to continue checking her fingerstick blood sugars at least once-twice daily. 4. COPD - will continue on advair twice daily with combivent QID. Total Time Spent: Greater than 30 minutes This includes examination of the patient, discharge planning, medication reconciliation, and communication with other providers. Discharge Instructions Please refer to the electronic Patient Visit Report (Discharge Instructions) for additional information. Follow-Up 1. Dr. Edwards - SaturdayMarch 13 at 11:40 am. 2. [facility] Office - Laura Vo PA-C and Jeffrey Sosa PA-C - SaturdayMarch 20 at 2:00 pm for a hospital follow up appointment and a pacemaker check (3:00 pm). Additional Copies To RV. Edwards MD; Laura Vo .KEN; Jeffrey Sosa.,P.A.; Otto Flynn M.D.
[2017-05-31] MEDS ORDERED: EZET10TA47 PO (07:16)
[2017-05-31] MEDS ORDERED: CLOP1TAB54 PO (07:16)
[2017-05-31] MEDS ORDERED: SERT50TA PO (07:16)
[2017-08-13] MEDS ORDERED: FRS/40 PO (14:55)
== END 2017-03-11 14:52 | disposition home or self-care (01) | DRG 292 ==
LOC: C.EDB 19:15 → C.2E 23:10 → ENRESERV 23:37
PROVIDERS: ADMIT Hospitalist; ATTEND Internal Medicine
DX: I50.23 Acute on chronic systolic (congestive) heart failure (principal); J81.1 Chronic pulmonary edema; Z87.891 Personal history of nicotine dependence; J45.909 Unspecified asthma, uncomplicated; I25.10 Atherosclerotic heart disease of native coronary artery without angina pectoris; E11.9 Type 2 diabetes mellitus without complications; E78.00 Pure hypercholesterolemia, unspecified; I12.9 Hypertensive chronic kidney disease with stage 1 through stage 4 chronic kidney disease, or unspecified chronic kidney disease; D64.9 Anemia, unspecified; D69.6 Thrombocytopenia, unspecified; N18.3 Chronic kidney disease, stage 3 (moderate); E83.42 Hypomagnesemia; B37.9 Candidiasis, unspecified; I73.9 Peripheral vascular disease, unspecified; I95.9 Hypotension, unspecified; G20 Parkinson's disease; Z95.810 Presence of automatic (implantable) cardiac defibrillator; I25.2 Old myocardial infarction; Z79.82 Long term (current) use of aspirin; Z84.1 Family history of disorders of kidney and ureter; Z83.3 Family history of diabetes mellitus; Z82.49 Family history of ischemic heart disease and other diseases of the circulatory system

== ENCOUNTER 2017-03-12 15:38 | Inpatient (IN) | payer BC, OTHER ==
[2017-03-12] VITALS: BP 115/71; PULSE 71; TEMP 36.8; O2SAT 94
[~2017-03-12] VITALS: Ht 157.5 cm; Wt 48.7 kg
[~2017-03-12 15:38] MED LIST changes: -AMLO-110 PO; +ASPCH81X PO; +FRRS300 PO; -FURO20TA PO; +IPRA1AER2 INH; -LISI40TA PO; +LSN5 PO; +LSX20 PO; +MGNO400 PO; +NYSS5 PO; -OMEP40CA41 PO; -ONDA8TAB62 SL; +SPR25 PO; -SPRIN/30 INH; -ZNT/150 PO
--- NOTE | 2017-03-12 16:06 | DIAGNOSTIC IMAGING REPORT ---
CHEST ONE VIEW PORTABLE CLINICAL HISTORY: EVALUATE RESPIRATORY DISTRESS. DYSPNEA dyspnea COMPARISON STUDY: 03/07/2017 FINDINGS: Findings of congestive heart failure are unchanged. There is a small left effusion. There is a trace amount pleural fluid right base. There is an implantable cardiac pacemaker/defibrillator. IMPRESSION: Congestive heart failure. No change in the prior study. Electronically signed by: César Muñoz M.D. 03/12/2017 4:04 PM Dictated Date/Time: 03/12/2017 4:03 PM
[2017-03-12 16:07] LABS: MEAN CELL VOLUME 91.2 fL (80-100); MEAN CORPUSCULAR HEMOGLOBIN 30.5 pg (25-34); MEAN CORPUSCULAR HGB CONC 33.4 g/dl (32-36); PLATELET COUNT 326 K/uL (130-400); RED BLOOD COUNT 3.18 M/uL (4.2-5.4)
[2017-03-12] MEDS ORDERED: ALBUT/IPRATROP 3MG/0.5MG NEB 3 ML VIAL INH STA (16:17)
[2017-03-12] MEDS ORDERED: FUROSEMIDE 40 MG/4 ML VIAL IV STA (16:17)
[2017-03-12 16:19] LABS: BASO % 0.3 %; BASO ABS # 0.02 K/uL (0-0.2); COMPLETE YES; IG% 0.2 %; LYMPH % 17.8 %; LYMPH ABS # 1.12 K/uL (1.2-3.4); MONO % 14.4 %; NEUT % 66.3 %; OVALOCYTES 1+
--- NOTE | 2017-03-12 16:36 | EMERGENCY ROOM VISIT NOTE ---
History Report prepared by Phillip: Eliza Pike Under the Supervision of: Dr. Antonio Hernandez M.D. First contact with patient: 15:41 Chief Complaint: SHORTNESS OF BREATH Stated Complaint: SOB Nursing Triage Summary: Pt arrives to ER via ALS with reports of shortness of breath that began this AM , patient just discharged from [facility] yesterday with CHF/COPD exacerbation. EMS reports pts RA saturation on their arrival was 86%. Pt has reports bilateral wheezes and diminished bases. 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 Upon arrival to ER pts RA saturation is 91%, pt reports feeling very short of breath and was unable to self-administer her inhalers at home. Pt states "I can't work those things, they're too complicated." History of Present Illness The patient is a 71 year old female who presents to the Emergency Room with complaints of worsening shortness of breath beginning early this morning. The patient took her normal dosage of Lasix this morning and took an additional dosage this afternoon. This did not help her symptoms. The patient was recently hospitalized for CHF/COPD exacerbation. She was discharged home yesterday and states that she was slightly short of breath at that time. The patient states that she was having trouble using her inhaler this morning at home. She has noted swelling to her lower extremities, chest heaviness and a cough. The patient did receive a breathing treatment while en route to the ED. She is feeling better on the oxygen, she does not wear oxygen at home. She denies chest pain, fever, or chills. Source of History: patient Onset: early this morning Position: other (global) Quality: other (shortness of breath) Timing: worsening Associated Symptoms: + cough, No fevers, No chills, No chest pain Note: The patient is experiencing swelling to her lower extremities. Review of Systems See HPI for pertinent positives & negatives. A total of 10 systems reviewed and were otherwise negative. Past Medical & Surgical Medical Problems: (1) Acute on chronic systolic (congestive) heart failure (2) ANEMIA NOS (3) ASTHMA, UNSPECIFIED (4) Cardiac defibrillator in place (5) CHRONIC KIDNEY DISEASE, UNSPECIFIED (6) copd exac, n/v, (7) CORONARY ATHEROSCLEROSIS OF [place] CORONARY VESSEL (8) DIAB [place] WO COMPL, TYPE II OR UNSPEC TYPE, NOT UNCNTRLD (9) Emphysema of lung (10) Hypoxia (11) Non compliance w medication regimen (12) Pulmonary congestion (13) PURE HYPERCHOLESTEROLEM Family History Diabetes mellitus FH: heart disease Hypertension Kidney disease Kidney stones Lung disease Social History Smoking Status: Former Smoker Alcohol Use: occasionally Drug Use: none Marital Status: Housing Status: lives with family Occupation Status: retired Current/Historical Medications Scheduled Aspirin (Aspirin Chewable), 81 MG PO QPM Atorvastatin Calcium (Lipitor), 80 MG PO HS Carvedilol (Coreg), 25 MG PO BID Clopidogrel Bisulfate (Plavix), 75 MG PO QAM Ezetimibe (Zetia), 10 MG PO HS Ferrous Sulfate (Ferrous Sulfate), 325 MG PO BID Fish Oil ([place]-3), 1 CAP PO DAILY Fluticasone Prop/Salmeterol (Advair Diskus 500/50 60 Dose), 1 PUFFS INH BID Furosemide (Furosemide), 20 MG PO QAM Ipratropium-Albuterol (Combivent Respimat), 1 PUFFS INH QID Lisinopril (Lisinopril), 5 MG PO QAM Magnesium Oxide (Magnesium-Oxide), 400 MG PO QAM Nystatin (Nystatin), 5 ML PO QID Potassium Chloride (Micro-K Ext Rel), 10 MEQ PO BID Pramipexole Dihydrochloride (Pramipexole Dihydrochlori), 1 TAB PO HS Sertraline (Zoloft), 50 MG PO QAM Spironolactone (Spironolactone), 25 MG PO QAM Scheduled PRN Acetaminophen (Tylenol), 1,000 MG PO Q6 PRN for Headache Allergies Coded Allergies: Sulfa Antibiotics (Verified Allergy, Intermediate, RASH, 03/12/17) Morphine (Verified Adverse Reaction, Severe, GI SYMPTOMS, 03/12/17) Physical Exam Vital Signs Date Time Temp Pulse Resp B/P (MAP) Pulse Ox O2 Delivery O2 Flow Rate FiO2 03/12/17 19:52 84 20 128/68 97 Nasal Cannula 2.0 03/12/17 19:10 90 20 168/66 97 Nasal Cannula 2.0 03/12/17 17:47 91 18 131/56 94 Nasal Cannula 2.0 03/12/17 16:34 91 18 127/63 100 Nasal Cannula 2.0 03/12/17 16:07 89 03/12/17 16:00 90 18 134/54 96 Nasal Cannula 2.0 03/12/17 15:52 37.2 105 27 144/60 91 Room Air 03/12/17 15:52 91 Room Air 03/12/17 15:52 91 Room Air Physical Exam GENERAL: Patient is in no acute distress. HEENT: No acute trauma, normocephalic atraumatic, mucous membranes moist, no nasal congestion, no scleral icterus. NECK: No stridor, no adenopathy, no meningismus, trachea is midline. LUNGS: Diminished bilaterally but clear, no wheezing or rhonchi. HEART: Tachycardic with regular rhythm, no murmurs. ABDOMEN: Soft, nontender, bowel sounds positive, no hernias, no peritonitis. EXTREMITIES: Trace pitting edema. No cyanosis, full range of motion of all the joints without pain or difficulty, no signs for acute trauma. NEUROLOGIC: Oriented x 3, no acute motor or sensory deficits, no focal weakness. SKIN: Pale, no rash, no jaundice, no diaphoresis. Medical Decision & Procedures ER Provider Diagnostic Interpretation: X-ray results as stated below per interpretation by me and the radiologist: CHEST ONE VIEW PORTABLE CLINICAL HISTORY: EVALUATE RESPIRATORY DISTRESS. DYSPNEA dyspnea COMPARISON STUDY: 03/07/2017 FINDINGS: Findings of congestive heart failure are unchanged. There is a small left effusion. There is a trace amount pleural fluid right base. There is an implantable cardiac pacemaker/defibrillator. IMPRESSION: Congestive heart failure. No change in the prior study. Electronically signed by: César Muñoz M.D. 03/12/2017 4:04 PM Dictated Date/Time: 03/12/2017 4:[address] ANGIOGRAM OF THE CHEST CLINICAL HISTORY: Atypical chest pain. COMPARISON STUDY: Chest CT dated 02/16/2017. Chest x-ray dated 03/12/2017. TECHNIQUE: Following the IV administration of 78 cc of Optiray 320, CT angiogram of the chest was performed from the upper abdomen to the thoracic inlet utilizing the pulmonary embolus protocol. Images are reviewed in the axial, sagittal, and coronal planes. 3-D MIPS images are created and assessed. IV contrast was administered without complication. CT DOSE: 189.38 mGy.cm FINDINGS: Thyroid: Imaged portions of the thyroid gland are normal in size and attenuation. Thoracic aorta: There is advanced atherosclerotic calcification of the thoracic aorta, which is normal in caliber and demonstrates standard 3-vessel arch anatomy. The thoracic aorta is not opacified. Pulmonary vasculature: The pulmonary trunk is dilated, measuring 3.3 cm in diameter. This suggests pulmonary artery hypertension. There are no filling defects identified in main, lobar, or segmental pulmonary branches to suggest pulmonary embolus. Heart: A 3-lead AICD is present in the left chest wall. The heart is enlarged and without pericardial effusion. There is reflux of contrast into the IVC and hepatic veins suggesting cardiac dysfunction. The coronary arteries are densely calcified. Lungs and pleural spaces: Emphysema is observed. There are small pleural effusions with dependent airspace opacities. There is diffuse intralobular septal thickening seen throughout both lungs. Linear atelectasis versus scarring is identified in the right middle lobe and lingula. The trachea and central airways are clear. A fat-containing Bochdalek hernia is noted at the right lung base. Mediastinum: Mildly enlarged mediastinal lymph nodes are similar to previous. A prevascular node on image #193 measures 10 mm short axis. A pretracheal node on image #189 measures 1.6 cm in short axis. Earline: Clear. Axillae: There is no axillary lymphadenopathy. Upper abdomen: Partially visualized upper abdominal viscera is within normal limits. Skeletal structures: The skeletal structures are osteopenic. No lytic or blastic bony lesions are seen. IMPRESSION: 1. There is no evidence of pulmonary embolus in the main, lobar, or segmental pulmonary arteries. This is unchanged from the study performed 3 weeks ago. 2. Cardiomegaly and AICD with evidence of cardiac dysfunction. Diffuse intralobular septal thickening suggests congestive failure. Clinical correlation will be required. 3. Emphysema with evidence of pulmonary artery hypertension. 4. There are small pleural effusions with bibasilar airspace opacities which likely represent atelectasis. Correlated clinically for evidence of an infectious/inflammatory pneumonitis. Effusions have modestly increased in size from 02/16/2017. 5. Mildly enlarged mediastinal lymph nodes are similar to previous. Electronically signed by: Antonio Astorga M.D. 03/12/2017 5:48 PM Dictated Date/Time: 03/12/2017 5:40 PM Laboratory Results 03/12/17 15:30 Red Blood Count 3.18, Mean Corpuscular Volume 91.2, Mean Corpuscular Hemoglobin 30.5, Mean Corpuscular Hemoglobin Concent 33.4, Mean Platelet Volume 9.0, Neutrophils (%) (Auto) 66.3, Lymphocytes (%) (Auto) 17.8, Monocytes (%) (Auto) 14.4, Eosinophils (%) (Auto) 1.0, Basophils (%) (Auto) 0.3, Neutrophils # (Auto ) 4.18, Lymphocytes # (Auto) 1.12, Monocytes # (Auto) 0.91, Eosinophils # (Auto ) 0.06, Basophils # (Auto) 0.02 03/12/17 15:30 Test 03/12/17 15:30 03/12/17 16:44 White Blood Count 6.30 K/uL (4.8-10.8) Red Blood Count 3.18 M/uL (4.2-5.4) Hemoglobin 9.7 g/dL (12.0-16.0) Hematocrit 29.0 % (37-47) Mean Corpuscular Volume 91.2 fL (80-100) Mean Corpuscular Hemoglobin 30.5 pg (25-34) Mean Corpuscular Hemoglobin Concent 33.4 g/dl (32-36) Platelet Count 326 K/uL (130-400) Mean Platelet Volume 9.0 fL (7.4-10.4) Neutrophils (%) (Auto) 66.3 % Lymphocytes (%) (Auto) 17.8 % Monocytes (%) (Auto) 14.4 % Eosinophils (%) (Auto) 1.0 % Basophils (%) (Auto) 0.3 % Neutrophils # (Auto) 4.18 K/uL (1.4-6.5) Lymphocytes # (Auto) 1.12 K/uL (1.2-3.4) Monocytes # (Auto) 0.91 K/uL (0.11-0.59) Eosinophils # (Auto) 0.06 K/uL (0-0.5) Basophils # (Auto) 0.02 K/uL (0-0.2) RDW Standard Deviation 51.4 fL (36.4-46.3) RDW Coefficient of Variation 15.3 % (11.5-14.5) Immature Granulocyte % (Auto) 0.2 % Immature Granulocyte # (Auto) 0.01 K/uL (0.00-0.02) Ovalocytes 1+ Anion Gap 8.0 mmol/L (3-11) Est Creatinine Clear Calc Drug Dose 40.2 ml/min Estimated GFR () 65.2 Estimated GFR (Non- 56.2 BUN/Creatinine Ratio 13.8 (10-20) Calcium Level 8.4 mg/dl (8.5-10.1) Magnesium Level 2.1 mg/dl (1.8-2.4) Total Bilirubin 0.4 mg/dl (0.2-1) Aspartate Amino Transf (AST/SGOT) 29 U/L (15-37) Alanine Aminotransferase (ALT/SGPT) 40 U/L (12-78) Alkaline Phosphatase 72 U/L (45-117) Troponin I 0.048 ng/ml (0-0.045) Pro-B-Type Natriuretic Peptide > 21501 pg/ml (0-900) Total Protein 6.5 gm/dl (6.4-8.2) Albumin 2.6 gm/dl (3.4-5.0) Globulin 3.9 gm/dl (2.5-4.0) Albumin/Globulin Ratio 0.7 (0.9-2) Urine Color YELLOW Urine Appearance CLEAR (CLEAR) Urine pH 7.5 (4.5-7.5) Urine Specific [place] 1.011 (1.000-1.030) Urine Protein NEG (NEG) Urine Glucose (UA) NEG (NEG) Urine Ketones NEG (NEG) Urine Occult Blood NEG (NEG) Urine Nitrite NEG (NEG) Urine Bilirubin NEG (NEG) Urine Urobilinogen NEG (NEG) Urine Leukocyte Esterase NEG (NEG) Laboratory results reviewed by me. Medications Administered Medications (Trade) Dose Ordered Sig/[place] Route Start Time Stop Time Status Last Admin Dose Admin Albuterol/ Ipratropium (Duoneb) 3 ml NOW STAT INH 03/12/17 16:17 03/12/17 16:19 DC 03/12/17 16:25 3 ML Furosemide (Lasix Inj) 40 mg NOW STAT IV 03/12/17 16:17 03/12/17 16:19 DC 03/12/17 16:25 40 MG Acetaminophen (Tylenol Tab) 650 mg Q4H PRN PO 03/12/17 19:30 04/11/17 19:29 03/12/17 21:45 650 MG ECG Indication: SOB/dyspnea Rate (beats per minute): 90 Rhythm: other (ventricle paced) Findings: no acute ischemic change, no ectopy ED Course 1612: The patient was evaluated in room C10. A complete history and physical exam was performed. 1617: Lasix Inj 40 mg IV, Duoneb 3 ml INH. 1645: I spoke with Dr. Vidales - Cardiology about the patient. He suggest having the patient come into the hospital to develop a new treatment plan. 1651: I talked with the patient and discussed the plan. 1808: Discussed the patient's case [place] [facility] [place] The patient will be evaluated for further management. 1815: I discussed results and treatment plan with the patient. She verbalizes agreement and understanding. The patient will be evaluated for further management. Medical Decision The patient is a 71 year old female who presents to the ED with complaints of shortness of breath. Differential diagnoses considered include cardiac ischemia , CHF, bronchitis, pneumonia, exacerbation of COPD, anemia, electrolyte imbalance, PE. There is no leukocytosis. The patient is anemic but this is baseline for her. Renal panel testing shows a mild hyponatremia and mild hyperkalemia. No kidney failure. No hepatitis or coagulopathy. EKG shows a functioning ventricular pacemaker. Cardiac enzyme testing does show a mild elevation of the troponin however, this number is lower than it was with her recent hospital stay. Chest x-ray does show heart failure, no pneumonia or pneumothorax. BNP is quite elevated consistent with fluid overload. Urinalysis does not show infection. Chest CT does not show evidence for PE or obvious pneumonia. The patient presents with shortness of breath. She is in heart failure. She has a very low EF. She has failed outpatient treatment. The patient was given a DuoNeb, she received IV Lasix. I discussed her case with cardiology. I talked with case management. I talked with the patient. The on-call hospitalist was consulted. Admission/ observation is warranted. I do believe her dyspnea is multifactorial. She has heart failure, she has COPD with a COPD flare, she is also somewhat debilitated from all her recent time in the hospital. Medication Reconciliation: I attest that I have personally reviewed the patient' s current medication list. Blood Pressure Screening: Patient was found to have normal blood pressure on screening and does not require follow-up. Consults Time Called: 1642 Consulting Physician: Dr. Vidales - Cardiology Returned Call: [address] Sobeida Tracey about the patient. He suggest having the patient come into the hospital to develop a new treatment plan. Additional Consults: Time Called: 180 Consulted Physician: Dr. [place] - [facility] [place]ed Call: 180 Additional Comments: Discussed the patient's case. The patient will be evaluated for further management. Impression Primary Impression: SOB (shortness of breath) Additional Impression: CHF (congestive heart failure) Scribe Attestation The scribe's documentation has been prepared under my direction and personally reviewed by me in its entirety. I confirm that the note above accurately reflects all work, treatment, procedures, and medical decision making performed by me. Departure Information Dispostion Being Evaluated By Hospitalist RV. Scott MD (PCP) Problem Qualifiers
[2017-03-12 16:39] LABS: ALB/GLOB RATIO 0.7 (0.9-2); ALKALINE PHOSPHATASE 72 U/L (45-117); ALT/SGPT 40 U/L (12-78); AST/SGOT 29 U/L (15-37); BUN/CREATININE RATIO 13.8 (10-20); CALCIUM 8.4 mg/dl (8.5-10.1); CARBON DIOXIDE 26 mmol/L (21-32); CHLORIDE 96 mmol/L (98-107); GLUCOSE 137 mg/dl (70-99); MAGNESIUM 2.1 mg/dl (1.8-2.4); SODIUM 130 mmol/L (136-145)
[2017-03-12 16:46] LABS: BLOOD UREA NITROGEN 14 mg/dl (7-18)
[2017-03-12] MEDS ORDERED: OPTIRAY 320 IV PRN (17:00)
[2017-03-12 17:06] LABS: URINE APPEARANCE CLEAR (CLEAR); URINE BILIRUBIN NEG (NEG); URINE COLOR YELLOW; URINE NITRITE NEG (NEG); URINE PH 7.5 (4.5-7.5); URINE SPECIFIC GRAVITY 1.011 (1.000-1.030); UROBILINOGEN NEG (NEG); ZZUR CULT IF INDIC CLEAN CATCH NO
[2017-03-12 17:15] LABS: MANUAL MICROSCOPIC REQUIRED? NO; REVIEW REQ? NO
[2017-03-12 17:35] LABS: POTASSIUM 5.2 mmol/L (3.5-5.1)
--- NOTE | 2017-03-12 17:49 | DIAGNOSTIC IMAGING REPORT ---
CT ANGIOGRAM OF THE CHEST CLINICAL HISTORY: Atypical chest pain. COMPARISON STUDY: Chest CT dated 02/16/2017. Chest x-ray dated 03/12/2017. TECHNIQUE: Following the IV administration of 78 cc of Optiray 320, CT angiogram of the chest was performed from the upper abdomen to the thoracic inlet utilizing the pulmonary embolus protocol. Images are reviewed in the axial, sagittal, and coronal planes. 3-D MIPS images are created and assessed. IV contrast was administered without complication. CT DOSE: 189.38 mGy.cm FINDINGS: Thyroid: Imaged portions of the thyroid gland are normal in size and attenuation. Thoracic aorta: There is advanced atherosclerotic calcification of the thoracic aorta, which is normal in caliber and demonstrates standard 3-vessel arch anatomy. The thoracic aorta is not opacified. Pulmonary vasculature: The pulmonary trunk is dilated, measuring 3.3 cm in diameter. This suggests pulmonary artery hypertension. There are no filling defects identified in main, lobar, or segmental pulmonary branches to suggest pulmonary embolus. Heart: A 3-lead AICD is present in the left chest wall. The heart is enlarged and without pericardial effusion. There is reflux of contrast into the IVC and hepatic veins suggesting cardiac dysfunction. The coronary arteries are densely calcified. Lungs and pleural spaces: Emphysema is observed. There are small pleural effusions with dependent airspace opacities. There is diffuse intralobular septal thickening seen throughout both lungs. Linear atelectasis versus scarring is identified in the right middle lobe and lingula. The trachea and central airways are clear. A fat-containing Bochdalek hernia is noted at the right lung base. Mediastinum: Mildly enlarged mediastinal lymph nodes are similar to previous. A prevascular node on image #193 measures 10 mm short axis. A pretracheal node on image #189 measures 1.6 cm in short axis. Earline: Clear. Axillae: There is no axillary lymphadenopathy. Upper abdomen: Partially visualized upper abdominal viscera is within normal limits. Skeletal structures: The skeletal structures are osteopenic. No lytic or blastic bony lesions are seen. IMPRESSION: 1. There is no evidence of pulmonary embolus in the main, lobar, or segmental pulmonary arteries. This is unchanged from the study performed 3 weeks ago. 2. Cardiomegaly and AICD with evidence of cardiac dysfunction. Diffuse intralobular septal thickening suggests congestive failure. Clinical correlation will be required. 3. Emphysema with evidence of pulmonary artery hypertension. 4. There are small pleural effusions with bibasilar airspace opacities which likely represent atelectasis. Correlated clinically for evidence of an infectious/inflammatory pneumonitis. Effusions have modestly increased in size from 02/16/2017. 5. Mildly enlarged mediastinal lymph nodes are similar to previous. Electronically signed by: Antonio Astorga M.D. 03/12/2017 5:48 PM Dictated Date/Time: 03/12/2017 5:40 PM
--- NOTE | 2017-03-12 18:20 | History and Physical ---
History & Physical Date & Time of Service: Mar 12, 2017 at 18:18 Chief Complaint: SOB Primary Care Physician: RV. Edwards MD History of Present Illness Source: patient Was discharged from hospital yesterday for acute on chronic CHF exacerbation. Once patient got home yesterday, she had some minimal SOB but was ok. She said she struggled with her inhaler in the evening (as she couldn't turn the dial, daughter thinks she might benefit more from nebs), and went to bed. However, she woke up at 2am feeling extremely SOB lying down and needed to sit up for relief. She was unable to sleep for the rest of the night. In the morning, she was fine when sitting up but was gasping while walking to the bathroom. She had taken 1 Lasix in the morning, but felt a 2nd Lasix was warranted given ongoing dyspnea. However, this was of minimal relief, and she continued to have dyspnea on minimal exertion, which was associated with chest tightness intermittently but not with nausea, lightheadedness or diaphoresis. Patient states there has not been significant change in the swelling in her legs since discharge, compliance with low salt diet, but says that she is not following any fluid restrictions. She did not take any of her inhalers on this morning. Patient has not smoked for ~1 week. She called her daughter who came over. Daughter tried to call farmhand's office, but there was no availability to see patient today. She did not call PCP. Instead, they called 911. EMS found her to be hypoxic and provided supplemental O2 and breathing treatments, after which she felt slightly better. She is not on home oxygen. Of note, patient has previously been offered and decline home oxygen, she has been advised for smoking cessation, and despite recurring health issues, she has been adamant about returning home post discharge, and previously declined PT on discharge. Past Medical/Surgical History Medical Problems: (1) ANEMIA NOS Status: Chronic (2) ASTHMA, UNSPECIFIED Status: Chronic (3) Cardiac defibrillator in place Status: Chronic (4) CHRONIC KIDNEY DISEASE, UNSPECIFIED Status: Chronic (5) CORONARY ATHEROSCLEROSIS OF [place] CORONARY VESSEL Status: Chronic (6) DIAB CASPER WO COMPL, TYPE II OR UNSPEC TYPE, NOT UNCNTRLD Status: Chronic (7) PURE HYPERCHOLESTEROLEM Status: Chronic Family History Diabetes mellitus FH: heart disease Hypertension Kidney disease Kidney stones Lung disease Social History Smoking Status: Former Smoker Drug Use: none Marital Status: Housing status: lives with family Occupational Status: retired Immunizations History of Influenza Vaccine: Yes Influenza Vaccine Date: Oct 12, 2012 History of Tetanus Vaccine?: Unknown History of Pneumococcal: Unknown History of Hepatitis B Vaccine: No Multi-Drug Resistant Organisms History of MDRO: No Allergies Coded Allergies: Sulfa Antibiotics (Verified Allergy, Intermediate, RASH, 03/12/17) Morphine (Verified Adverse Reaction, Severe, GI SYMPTOMS, 03/12/17) Home Medications Scheduled Aspirin (Aspirin Chewable), 81 MG PO QPM Atorvastatin Calcium (Lipitor), 80 MG PO HS Carvedilol (Coreg), 25 MG PO BID Clopidogrel Bisulfate (Plavix), 75 MG PO QAM Ezetimibe (Zetia), 10 MG PO HS Ferrous Sulfate (Ferrous Sulfate), 325 MG PO BID Fish Oil ([place]-3), 1 CAP PO DAILY Fluticasone Prop/Salmeterol (Advair Diskus 500/50 60 Dose), 1 PUFFS INH BID Furosemide (Furosemide), 20 MG PO QAM Ipratropium-Albuterol (Combivent Respimat), 1 PUFFS INH QID Lisinopril (Lisinopril), 5 MG PO QAM Magnesium Oxide (Magnesium-Oxide), 400 MG PO QAM Nystatin (Nystatin), 5 ML PO QID Potassium Chloride (Micro-K Ext Rel), 10 MEQ PO BID Pramipexole Dihydrochloride (Pramipexole Dihydrochlori), 1 TAB PO HS Sertraline (Zoloft), 50 MG PO QAM Spironolactone (Spironolactone), 25 MG PO QAM Scheduled PRN Acetaminophen (Tylenol), 1,000 MG PO Q6 PRN for Headache Review of Systems Constitutional: + chills, No fever, No sweats Eyes: No worsening of vision, No eye pain, No redness, No discharge, No diplopia ENT: No nasal symptoms, No sore throat, No trouble swallowing Respiratory: + cough, + sputum, + dyspnea on exertion, No wheezing, No dyspnea at rest Cardiovascular: + chest pain, + orthopnea, + PND, + edema, No palpitations Abdomen: No pain, No nausea, No vomiting, No diarrhea, No constipation, No GI bleeding Musculoskeletal: + swelling, No joint pain, No muscle pain, No calf pain Genitourinary - Female: No dysuria, No hematuria Neurologic: No numbness/tingling, No balance problems Integumentary: No rash, No itch, No new/changing skin lesions Allergic / Immunologic: No environmental allergies, No seasonal allergies, No pet sensitivities, No food allergies Physical Exam Vital Signs Date Time Temp Pulse Resp B/P (MAP) Pulse Ox O2 Delivery O2 Flow Rate FiO2 03/12/17 17:47 91 18 131/56 94 Nasal Cannula 2.0 03/12/17 16:34 91 18 127/63 100 Nasal Cannula 2.0 03/12/17 16:07 89 03/12/17 16:00 90 18 134/54 96 Nasal Cannula 2.0 03/12/17 15:52 37.2 105 27 144/60 91 Room Air 03/12/17 15:52 91 Room Air 03/12/17 15:52 91 Room Air General Appearance: WD/WN, no apparent distress Head: normocephalic, atraumatic Eyes: normal inspection ENT: hearing grossly normal, pharynx normal, + pertinent finding (Thrush) Neck: supple, no adenopathy, no JVD Respiratory/Chest: no respiratory distress, no accessory muscle use, + pertinent finding (Poor inspiratory effort, crackles at lung bases L>R) Cardiovascular: regular rate, rhythm, no JVD, normal peripheral pulses Abdomen/GI: normal bowel sounds, non tender, soft Extremities/Musculoskelatal: no calf tenderness, normal capillary refill, + pedal edema Neurologic/Psych: alert, normal mood/affect, oriented x 3 Skin: normal color, warm/dry, no rash Diagnostics Laboratory Results Results Past 24 Hours Test 03/12/17 15:30 03/12/17 16:44 Range/Units White Blood Count 6.30 4.8-10.8 K/uL Red Blood Count 3.18 4.2-5.4 M/uL Hemoglobin 9.7 12.0-16.0 g/dL Hematocrit 29.0 37-47 % Mean Corpuscular Volume 91.2 80-100 fL Mean Corpuscular Hemoglobin 30.5 25-34 pg Mean Corpuscular Hemoglobin Concent 33.4 32-36 g/dl Platelet Count 326 130-400 K/uL Mean Platelet Volume 9.0 7.4-10.4 fL Neutrophils (%) (Auto) 66.3 % Lymphocytes (%) (Auto) 17.8 % Monocytes (%) (Auto) 14.4 % Eosinophils (%) (Auto) 1.0 % Basophils (%) (Auto) 0.3 % Neutrophils # (Auto) 4.18 1.4-6.5 K/uL Lymphocytes # (Auto) 1.12 1.2-3.4 K/uL Monocytes # (Auto) 0.91 0.11-0.59 K/uL Eosinophils # (Auto) 0.06 0-0.5 K/uL Basophils # (Auto) 0.02 0-0.2 K/uL RDW Standard Deviation 51.4 36.4-46.3 fL RDW Coefficient of Variation 15.3 11.5-14.5 % Immature Granulocyte % (Auto) 0.2 % Immature Granulocyte # (Auto) 0.01 0.00-0.02 K/uL Ovalocytes 1+ Sodium Level 130 136-145 mmol/L Potassium Level 5.2 3.5-5.1 mmol/L Chloride Level 96 98-107 mmol/L Carbon Dioxide Level 26 21-32 mmol/L Anion Gap 8.0 3-11 mmol/L Blood Urea Nitrogen 14 7-18 mg/dl Creatinine 1.00 0.60-1.20 mg/dl Est Creatinine Clear Calc Drug Dose 40.2 ml/min Estimated GFR () 65.2 Estimated GFR (Non- 56.2 BUN/Creatinine Ratio 13.8 10-20 Random Glucose 137 70-99 mg/dl Calcium Level 8.4 8.5-10.1 mg/dl Magnesium Level 2.1 1.8-2.4 mg/dl Total Bilirubin 0.4 0.2-1 mg/dl Aspartate Amino Transf (AST/SGOT) 29 15-37 U/L Alanine Aminotransferase (ALT/SGPT) 40 12-78 U/L Alkaline Phosphatase 72 45-117 U/L Troponin I 0.048 0-0.045 ng/ml Pro-B-Type Natriuretic Peptide > 79010 0-900 pg/ml Total Protein 6.5 6.4-8.2 gm/dl Albumin 2.6 3.4-5.0 gm/dl Globulin 3.9 2.5-4.0 gm/dl Albumin/Globulin Ratio 0.7 0.9-2 Urine Color YELLOW Urine Appearance CLEAR CLEAR Urine pH 7.5 4.5-7.5 Urine Specific [place] 1.011 1.000-1.030 Urine Protein NEG NEG Urine Glucose (UA) NEG NEG Urine Ketones NEG NEG Urine Occult Blood NEG NEG Urine Nitrite NEG NEG Urine Bilirubin NEG NEG Urine Urobilinogen NEG NEG Urine Leukocyte Esterase NEG NEG Diagnostic Radiology CHEST ONE VIEW PORTABLE CLINICAL HISTORY: EVALUATE RESPIRATORY DISTRESS. DYSPNEA dyspnea COMPARISON STUDY: 03/07/2017 FINDINGS: Findings of congestive heart failure are unchanged. There is a small left effusion. There is a trace amount pleural fluid right base. There is an implantable cardiac pacemaker/defibrillator. IMPRESSION: Congestive heart failure. No change in the prior study. CT ANGIOGRAM OF THE CHEST CLINICAL HISTORY: Atypical chest pain. COMPARISON STUDY: Chest CT dated 02/16/2017. Chest x-ray dated 03/12/2017. TECHNIQUE: Following the IV administration of 78 cc of Optiray 320, CT angiogram of the chest was performed from the upper abdomen to the thoracic inlet utilizing the pulmonary embolus protocol. Images are reviewed in the axial, sagittal, and coronal planes. 3-D MIPS images are created and assessed. IV contrast was administered without complication. CT DOSE: 189.38 mGy.cm FINDINGS: Thyroid: Imaged portions of the thyroid gland are normal in size and attenuation. Thoracic aorta: There is advanced atherosclerotic calcification of the thoracic aorta, which is normal in caliber and demonstrates standard 3-vessel arch anatomy. The thoracic aorta is not opacified. Pulmonary vasculature: The pulmonary trunk is dilated, measuring 3.3 cm in diameter. This suggests pulmonary artery hypertension. There are no filling defects identified in main, lobar, or segmental pulmonary branches to suggest pulmonary embolus. Heart: A 3-lead AICD is present in the left chest wall. The heart is enlarged and without pericardial effusion. There is reflux of contrast into the IVC and hepatic veins suggesting cardiac dysfunction. The coronary arteries are densely calcified. Lungs and pleural spaces: Emphysema is observed. There are small pleural effusions with dependent airspace opacities. There is diffuse intralobular septal thickening seen throughout both lungs. Linear atelectasis versus scarring is identified in the right middle lobe and lingula. The trachea and central airways are clear. A fat-containing Bochdalek hernia is noted at the right lung base. Mediastinum: Mildly enlarged mediastinal lymph nodes are similar to previous. A prevascular node on image #193 measures 10 mm short axis. A pretracheal node on image #189 measures 1.6 cm in short axis. Earline: Clear. Axillae: There is no axillary lymphadenopathy. Upper abdomen: Partially visualized upper abdominal viscera is within normal limits. Skeletal structures: The skeletal structures are osteopenic. No lytic or blastic bony lesions are seen. IMPRESSION: 1. There is no evidence of pulmonary embolus in the main, lobar, or segmental pulmonary arteries. This is unchanged from the study performed 3 weeks ago. 2. Cardiomegaly and AICD with evidence of cardiac dysfunction. Diffuse intralobular septal thickening suggests congestive failure. Clinical correlation will be required. 3. Emphysema with evidence of pulmonary artery hypertension. 4. There are small pleural effusions with bibasilar airspace opacities which likely represent atelectasis. Correlated clinically for evidence of an infectious/inflammatory pneumonitis. Effusions have modestly increased in size from 02/16/2017. 5. Mildly enlarged mediastinal lymph nodes are similar to previous. Impression Assessment and Plan Patient is a 71 year old female with DM, CAD, CHF, pacemaker placement, HTN, and asthma that presents with complaints of syncope, nausea, vomiting, and shortness of breath. Acute on chronic hypoxic respiratory failure on background of emphysema - likely secondary to non-compliance with inhalers - Continue supplemental oxygen, wean as tolerated (not on oxygen at home, but willing to consider have oxygen available at home on PRN basis) - DuoNeb + Pulmicort started - Continue home inhalers (Advair and Combivent) - May be ideal to send patient on all neb inhalers Chronic Biventricular Systolic CHF - 2/2 Ischemic Cardiomyopathy. Has Biventricular pacer. ECHO 02/17 reduced LV and RV systolic function, severe mitral regurg, EF 25-30%. - Furosemide 20mg qAM - Spironolactone 25mg qAM - Lisinopril 5mg daily - Carvedilol 25mg twice daily - Potassium supplementation 10meq daily - Daily weights, I/Os, low salt diet, fluid restriction 1800mL - Trend BMP Elevated troponin - Elevated but noted to be lower than previous admission - Significant history of vascular disease - Inferior myocardial infarction in 1999 and catheterization showed 99% circumflex lesion that could not be successfully opened. - Ischemic cardiomyopathy - EF < 35%. - Biventricular ICD in 2012 - PAD - History Popliteal and SFA angioplasties and right iliofemoral endarterectomy - Carotid artery stenosis - s/p CEA - Stenosis of Mesenteric and Celiac Arteries - Troponin x 3 q8h - Continue aspirin 81mg, clopidogrel 75mg, atorvastatin 80mg daily - Nitroglycerin PRN chest pain Anemia - Stable - Continue ferrous sulfate 325mg daily - Trend H/H Thrush - Continue nystatin rinse QID - Advised to rinse mouth post inhaler/neb use Hypertension - Lisinopril 5mg qAM - Coreg 25mg BID Hyperlipidemia - Atorvastatin 80mg qHS + Ezetimibe 10mg qHS Nicotine Abuse - Nicotine patch if patient desires DVT Prophylaxis - Heparin 5,000 units Code Status - Full Resuscitation Level of Care Telemetry Resuscitation Status FULL RESUSCITATION VTE Prophylaxis VTE Risk Assessment Done? Y/N: Yes Risk Level: Moderate Given or contraindicated: Unfractionated heparin SQ Resident Tracking Resident Involvement: Resident Care Provided Care Provided: Adult [facility] Medicine Assessment and Plan Attending Addendum: I have physically seen and examined this patient, have directed their medical care, have supervised the medical residents activities, and agree with the H&P as noted above, with the following changes: NONE
[2017-03-12] MEDS ORDERED: MAGNESIUM HYDROXIDE SUSP 30 ML UDC PO PRN (19:30)
[2017-03-12] MEDS ORDERED: ALUMINUM/MAGNESIUM/SIMETH (MAALOX MAX) 30 ML UDC PO PRN (19:30)
[2017-03-12] MEDS ORDERED: POLYETHYLENE (MIRALAX) 17 GM PACK PO PRN (19:30)
[2017-03-12] MEDS ORDERED: ONDANSETRON INJ 2 MG/ML 2 ML VIAL IV PRN (19:30)
[2017-03-12] MEDS ORDERED: NITROGLYCERIN 0.4 MG SL PER TAB CHARGE SL PRN (19:30)
[2017-03-12] MEDS ORDERED: ACETAMINOPHEN 500 MG TAB PO PRN (20:30)
[2017-03-12 21:23] VITALS: BP 126/82; PULSE 92; TEMP 36.8; O2SAT 95; Ht 157.5 cm; Wt 48.7 kg
[2017-03-12] MEDS: ACETAMINOPHEN 325 MG TAB PO PRN (21:45)
[2017-03-12] MEDS ORDERED: IV FLUIDS COMPLETED PRN (22:00)
[2017-03-12] MEDS: FLUTICASONE/SALMETEROL (ADVAIR) 500/50 INH 14 PUFF INH SCH (22:20)
[2017-03-12] MEDS: EZETIMIBE 10MG TAB PO SCH (22:20)
[2017-03-12] MEDS: ASPIRIN 81 MG ECTAB PO SCH (22:20)
[2017-03-12] MEDS: NYSTATIN SUSP 500,000 U/5 ML UDC PO SCH (22:20)
[2017-03-12] MEDS: PRAMIPEXOLE DIHYDROCHLORIDE 0.25MG TAB PO SCH (22:20)
[2017-03-12] MEDS: IPRATROPIUM BROMIDE/ALBUTEROL respimat INH INH SCH (22:20)
[2017-03-12] MEDS: ATORVASTATIN 40 MG TAB PO SCH (22:20)
[2017-03-12] MEDS: CARVEDILOL 25 MG TAB PO SCH (22:20)
[2017-03-13] VITALS (10 sets, daily range): BP systolic 92–115; BP diastolic 43–71; PULSE 67–84; TEMP 36.6–36.9; O2SAT 94–98
[2017-03-13] MEDS: HEPARIN SOD 5000 UNIT/0.5 ML CARP SQ SCH ×4 (00:04→21:24)
[2017-03-13 06:17] LABS: HEMATOCRIT 25.3 % (37-47); MEAN CELL VOLUME 91.7 fL (80-100); MEAN CORPUSCULAR HEMOGLOBIN 30.8 pg (25-34); MEAN CORPUSCULAR HGB CONC 33.6 g/dl (32-36); PLATELET COUNT 260 K/uL (130-400); RED BLOOD COUNT 2.76 M/uL (4.2-5.4); WHITE BLOOD COUNT 3.96 K/uL (4.8-10.8)
[2017-03-13] MEDS: FERROUS SULFATE 325 MG TAB PO SCH ×2 (06:20→16:52)
[2017-03-13 06:54] LABS: BUN/CREATININE RATIO 14.8 (10-20); CALCIUM 8.2 mg/dl (8.5-10.1); CREATININE 0.9 mg/dl (0.60-1.20); MAGNESIUM 2.2 mg/dl (1.8-2.4); POTASSIUM 4.1 mmol/L (3.5-5.1)
[2017-03-13] MEDS: BUDESONIDE 0.5 MG/2 ML VIAL (PULMICORT) INH SCH ×2 (07:05→19:58)
[2017-03-13] MEDS: IPRATROPIUM BROMIDE/ALBUTEROL respimat INH INH SCH ×4 (08:13→21:15)
[2017-03-13] MEDS: FLUTICASONE/SALMETEROL (ADVAIR) 500/50 INH 14 PUFF INH SCH ×2 (08:14→21:15)
[2017-03-13] MEDS: CARVEDILOL 25 MG TAB PO SCH ×2 (08:14→21:16)
[2017-03-13] MEDS: NYSTATIN SUSP 500,000 U/5 ML UDC PO SCH ×4 (08:14→21:18)
[2017-03-13] MEDS: NICOTINE 7 MG/24 HR TDSY TD SCH (08:15)
[2017-03-13] MEDS: CLOPIDOGREL BISULFATE 75 MG TAB PO SCH (08:15)
[2017-03-13] MEDS: OMEGA-3 (PURIFIED FISH OIL) 1 GM CAP PO SCH (08:15)
[2017-03-13] MEDS: LISINOPRIL 5 MG TAB PO SCH (08:16)
[2017-03-13] MEDS: SERTRALINE HCL 50 MG TAB PO SCH (08:16)
[2017-03-13] MEDS: SPIRONOLACTONE 25 MG TAB PO SCH (08:16)
[2017-03-13] MEDS: FUROSEMIDE 20 MG TAB PO SCH (08:17)
[2017-03-13] MEDS: POTASSIUM CHLORIDE 10 MEQ TABCR PO SCH (08:17)
[2017-03-13] MEDS: MAGNESIUM OXIDE 400 MG TAB PO SCH (08:17)
[2017-03-13] MEDS ORDERED: FUROSEMIDE 40 MG/4 ML VIAL IV STA (08:31)
[2017-03-13] MEDS ORDERED: FUROSEMIDE INJ 40 MG in SYRINGE 0 ML IV ONE (09:00)
[2017-03-13] MEDS: ACETAMINOPHEN 325 MG TAB PO PRN (15:07)
[2017-03-13] MEDS ORDERED: FUROSEMIDE INJ 20 MG in SYRINGE 0 ML IV SCH (16:15)
--- NOTE | 2017-03-13 18:17 | Family Medicine Progress Note ---
Progress Note Date of Service Mar 13, 2017. Subjective Pt evaluation today including: conversation w/ patient, conversation w/ family , physical exam, chart review, lab review, conversation w/ trousseau consultant, review of inpatient medication list Pain: none PO Intake: good Voiding: no voiding problems, no incontinence Patient with no acute events overnight She is still short of breath when laying flat but she says she usually sleeps with two pillows at home so that is typically normal for her Patient denied any chest pain, shortness of breath, palpitations, swelling in her legs, fevers, night sweats and chills. Additional Comments: Please see above note for ROS Medications Current Inpatient Medications Medications (Trade) Dose Ordered Sig/Osmani Route Start Time Stop Time Status Last Admin Dose Admin Ioversol (Optiray 320) 125 ml UD PRN IV 03/12/17 17:00 03/16/17 16:59 Heparin Sodium (Porcine) (Heparin Sq 5000 Unit/0.5ml) 5,000 unit Q8 SQ 03/12/17 23:00 04/11/17 22:59 Acetaminophen (Tylenol Tab) 650 mg Q4H PRN PO 03/12/17 19:30 04/11/17 19:29 03/13/17 15:07 650 MG Al Hydrox/Mg Hydrox/Simethicone (Maalox Max Susp) 15 ml Q4H PRN PO 03/12/17 19:30 04/11/17 19:29 Magnesium Hydroxide (Milk Of Magnesia Susp) 30 ml Q12H PRN PO 03/12/17 19:30 04/11/17 19:29 Ondansetron HCl (Zofran Inj) 4 mg Q6H PRN IV 03/12/17 19:30 04/11/17 19:29 Nitroglycerin (Nitrostat Tab) 0.4 mg UD PRN SL 03/12/17 19:30 04/11/17 19:29 Polyethylene (Miralax Powder Packet) 17 gm DAILY PRN PO 03/12/17 19:30 04/11/17 19:29 Aspirin (Ecotrin Tab) 81 mg HS PO 03/12/17 22:00 04/11/17 21:59 03/12/17 22:20 81 MG Atorvastatin Calcium (Lipitor Tab) 80 mg HS PO 03/12/17 22:00 04/11/17 21:59 03/12/17 22:20 80 MG Carvedilol (Coreg Tab) 25 mg BID PO 03/12/17 22:00 04/11/17 21:59 03/13/17 08:14 25 MG Clopidogrel Bisulfate (plAVix TAB) 75 mg QAM PO 03/13/17 09:00 04/12/17 08:59 03/13/17 08:15 75 MG EZETIMIBE (Zetia Tab) 10 mg HS PO 03/12/17 22:00 04/11/17 21:59 03/12/17 22:20 10 MG Ferrous Sulfate (Feosol Tab) 325 mg BIDM PO 03/13/17 07:30 04/12/17 07:29 03/13/17 16:52 325 MG Fish Oil ([place]-3 (Purified Fish Oil) Cap) 1 gm DAILY PO 03/13/17 09:00 04/12/17 08:59 03/13/17 08:15 1 GM Salmeterol Xinafoate/ Fluticasone (Advair Diskus 500/50 Inh) 1 puff BID INH 03/12/17 22:00 04/11/17 21:59 03/13/17 08:14 1 PUFF Furosemide (Lasix Tab) 20 mg QAM PO 03/13/17 09:00 04/12/17 08:59 03/13/17 08:17 20 MG Albuterol/ Ipratropium (Combivent Respimat Inh) 1 puffs QID INH 03/12/17 22:00 04/11/17 21:59 03/13/17 16:53 1 PUFFS Lisinopril (Zestril Tab) 5 mg QAM PO 03/13/17 09:00 04/12/17 08:59 03/13/17 08:16 5 MG Magnesium Oxide (Mag-Ox Tab) 400 mg QAM PO 03/13/17 09:00 04/12/17 08:59 03/13/17 08:17 400 MG Nystatin (Mycostatin Susp) 5 ml QID PO 03/12/17 22:00 03/22/17 21:59 03/13/17 16:52 5 ML Potassium Chloride (Klor-Con M10) 10 meq QAM PO 03/13/17 09:00 04/12/17 08:59 03/13/17 08:17 10 MEQ Pramipexole Dihydrochloride (miraPEX TAB) 0.25 mg HS PO 03/12/17 22:00 04/11/17 21:59 03/12/17 22:20 0.25 MG Sertraline HCl (Zoloft Tab) 50 mg QAM PO 03/13/17 09:00 04/12/17 08:59 03/13/17 08:16 50 MG Spironolactone (Aldactone Tab) 25 mg QAM PO 03/13/17 09:00 04/12/17 08:59 03/13/17 08:16 25 MG Budesonide (Pulmicort Respules 0.5MG/ 2ML Neb Soln) 0.5 mg BIDR INH 03/13/17 08:00 04/12/17 07:59 03/13/17 07:05 0.5 MG Nicotine (Nicoderm Cq 7 Mg Patch) 1 patch QAM TD 03/13/17 09:00 04/12/17 08:59 Miscellaneous (Remove Nicoderm Patch) 1 ea HS N/A 03/13/17 21:00 04/12/17 20:59 Miscellaneous (Iv Fluids Completed) 1 ea PRN PRN N/A 03/12/17 22:00 03/12/18 21:59 Objective Vital Signs Date Time Temp Pulse Resp B/P (MAP) Pulse Ox O2 Delivery O2 Flow Rate FiO2 03/13/17 16:00 36.8 78 18 104/56 (72) 94 Nasal Cannula 1.5 03/13/17 16:00 Nasal Cannula 1.5 03/13/17 12:00 Nasal Cannula 2.0 03/13/17 11:33 36.6 77 18 92/50 (64) 97 Nasal Cannula 2.0 03/13/17 08:00 Nasal Cannula 2.0 03/13/17 07:25 36.6 71 17 101/45 (63) 96 Nasal Cannula 2.0 03/13/17 07:00 84 14 98 Nasal Cannula 2.0 03/13/17 04:00 36.6 67 16 96/60 (72) 95 Nasal Cannula 2.0 03/13/17 04:00 Room Air 2.0 03/13/17 01:24 36.8 71 18 115/71 (86) 94 Nasal Cannula 03/13/17 00:01 95 Room Air 2.0 03/12/17 21:23 36.8 92 20 126/82 95 Nasal Cannula 2.0 03/12/17 19:52 84 20 128/68 97 Nasal Cannula 2.0 03/12/17 19:10 90 20 168/66 97 Nasal Cannula 2.0 Physical Exam General Appearance: WD/WN, no apparent distress Neck: thyroid normal, trachea midline, + JVD (JVD 1/4 up to the angle of the mandible), + pertinent finding (carotid bruits bilaterally) Respiratory/Chest: normal breath sounds, no respiratory distress, no accessory muscle use, + pertinent finding Cardiovascular: regular rate, rhythm, no edema, + systolic murmur (systolic murmur at LUSB) Abdomen: normal bowel sounds, non tender, soft Neurologic/Psychiatric: alert, normal mood/affect, oriented x 3 Laboratory Results Results Past 24 Hours Test 03/12/17 20:37 03/12/17 23:06 03/13/17 05:51 03/13/17 06:50 Range/Units Bedside Glucose 105 123 127 70-90 mg/dl White Blood Count 3.96 4.8-10.8 K/uL Red Blood Count 2.76 4.2-5.4 M/uL Hemoglobin 8.5 12.0-16.0 g/dL Hematocrit 25.3 37-47 % Mean Corpuscular Volume 91.7 80-100 fL Mean Corpuscular Hemoglobin 30.8 25-34 pg Mean Corpuscular Hemoglobin Concent 33.6 32-36 g/dl RDW Standard Deviation 52.1 36.4-46.3 fL RDW Coefficient of Variation 15.6 11.5-14.5 % Platelet Count 260 130-400 K/uL Mean Platelet Volume 9.0 7.4-10.4 fL Sodium Level 138 136-145 mmol/L Potassium Level 4.1 3.5-5.1 mmol/L Chloride Level 100 98-107 mmol/L Carbon Dioxide Level 32 21-32 mmol/L Anion Gap 6.0 3-11 mmol/L Blood Urea Nitrogen 13 7-18 mg/dl Creatinine 0.90 0.60-1.20 mg/dl Est Creatinine Clear Calc Drug Dose 44.2 ml/min Estimated GFR () 74.0 Estimated GFR (Non- 63.9 BUN/Creatinine Ratio 14.8 10-20 Random Glucose 86 70-99 mg/dl Calcium Level 8.2 8.5-10.1 mg/dl Magnesium Level 2.2 1.8-2.4 mg/dl Troponin I 0.045 0-0.045 ng/ml Test 03/13/17 11:17 03/13/17 14:10 03/13/17 16:09 Range/Units Bedside Glucose 112 113 70-90 mg/dl Troponin I 0.037 0-0.045 ng/ml Assessment and Plan Patient is a 71 year old female with DM, CAD, CHF, pacemaker placement, HTN, and asthma that presents with complaints of syncope, nausea, vomiting, and shortness of breath. Acute on chronic hypoxic respiratory failure on background of emphysema - Continue supplemental oxygen - DuoNeb + Pulmicort started - Continue home inhalers (Advair and Combivent) Chronic Biventricular Systolic CHF - 2/2 Ischemic Cardiomyopathy. Has Biventricular pacer. ECHO 02/17 reduced LV and RV systolic function, severe mitral regurg, EF 25-30%. - Patient given 40 mg of furosemide IV - Furosemide 20mg qAM - Spironolactone 25mg qAM - Lisinopril 5mg daily - Carvedilol 25mg twice daily - Potassium supplementation 10meq daily - Daily weights, I/Os, low salt diet, fluid restriction 1800mL - Trend BMP Elevated troponin - .048--.045 and .037 - very mild elevation, likely due to chronically poor cardiac output - Significant history of vascular disease----> planned to go to vascular surgery in [place] for mesenteric ischaemia in April - Continue aspirin 81mg, clopidogrel 75mg, atorvastatin 80mg daily - Nitroglycerin PRN chest pain Anemia - Stable - Continue ferrous sulfate 325mg daily - Trend H/H Thrush - Continue nystatin rinse QID - Advised to rinse mouth post inhaler/neb use Hypertension - Lisinopril 5mg qAM - Coreg 25mg BID Hyperlipidemia - Atorvastatin 80mg qHS + Ezetimibe 10mg qHS DVT Prophylaxis - Heparin 5,000 units Code Status - Full Resuscitation Resident Physician Supervision Note: I was present with PGY1 Dr. Arcenio Child during the history and exam. I discussed the case with the resident and agree with the findings and plan as documented in the note. Any exceptions or clarifications are listed here: none. Pt feels better today. Denies dyspnea or cough. Tele stable; no dysrhythmia. VSS, BPs low-normal but stable afebrile gen - nad neck - mild JVD heart - RRR, s1, s2 lungs - mildly decreased BS bases, no rales, no wheezing abd - soft, NT, no HSM ext - scant edema, pulses 1+ b/l feet; radial pulse on right 2+, left 0-1+ labs - Cr 0.9 Hb 8.5 A/P: Probable acute/chronic systolic CHF - improved. Unclear why she decompensated so quickly after hospital discharge on Saturday. BPs are controlled, she denies missing meds or having large salt or fluid intake. Anemia could be contributing to the decompensation; consider PRBCs if Hb drops any lower. Ferrous sulfate in meantime. Additional dose of IV lasix this afternoon. COPD - compensated/not in exacerbation. Mesenteric ischemia - no symptoms at this time. F/u [facility] [place] in April for possible surgical intervention. Unequal BPs - likely due to vascular disease/stenosis in left arm. Right arm BPs reflect her true systemic BP; avoid BPs in left arm. Son updated at bedside. Documented By: Maninder Cuevas MD Continued [facility] stay due to: multiple IV medications needed
[2017-03-13] MEDS ORDERED: KETOROLAC TROMETHAMINE 10 MG TAB PO STA (19:55)
[2017-03-13] MEDS: ASPIRIN 81 MG ECTAB PO SCH (21:16)
[2017-03-13] MEDS: PRAMIPEXOLE DIHYDROCHLORIDE 0.25MG TAB PO SCH (21:16)
[2017-03-13] MEDS: ATORVASTATIN 40 MG TAB PO SCH (21:16)
[2017-03-13] MEDS: EZETIMIBE 10MG TAB PO SCH (21:16)
[2017-03-14] VITALS (11 sets, daily range): BP systolic 102–120; BP diastolic 51–65; PULSE 66–84; TEMP 36.5–37.5; O2SAT 91–98
[2017-03-14 06:00] LABS: HEMATOCRIT 26.8 % (37-47); MEAN CELL VOLUME 93.1 fL (80-100); MEAN CORPUSCULAR HEMOGLOBIN 30.9 pg (25-34); MEAN CORPUSCULAR HGB CONC 33.2 g/dl (32-36); MEAN PLATELET VOLUME 8.9 fL (7.4-10.4); PLATELET COUNT 305 K/uL (130-400); RED BLOOD COUNT 2.88 M/uL (4.2-5.4); WHITE BLOOD COUNT 4.61 K/uL (4.8-10.8)
[2017-03-14] MEDS: HEPARIN SOD 5000 UNIT/0.5 ML CARP SQ SCH ×3 (06:00→21:25)
[2017-03-14] MEDS: FERROUS SULFATE 325 MG TAB PO SCH ×2 (06:18→17:01)
[2017-03-14 06:38] LABS: BUN/CREATININE RATIO 14.8 (10-20); CREATININE 0.92 mg/dl (0.60-1.20); POTASSIUM 4.2 mmol/L (3.5-5.1)
[2017-03-14] MEDS: IPRATROPIUM BROMIDE/ALBUTEROL respimat INH INH SCH ×3 (08:29→20:22)
[2017-03-14] MEDS: LISINOPRIL 5 MG TAB PO SCH (08:30)
[2017-03-14] MEDS: MAGNESIUM OXIDE 400 MG TAB PO SCH (08:30)
[2017-03-14] MEDS: OMEGA-3 (PURIFIED FISH OIL) 1 GM CAP PO SCH (08:30)
[2017-03-14] MEDS: FLUTICASONE/SALMETEROL (ADVAIR) 500/50 INH 14 PUFF INH SCH ×2 (08:30→20:22)
[2017-03-14] MEDS: POTASSIUM CHLORIDE 10 MEQ TABCR PO SCH (08:30)
[2017-03-14] MEDS: CARVEDILOL 25 MG TAB PO SCH ×2 (08:31→20:33)
[2017-03-14] MEDS: NYSTATIN SUSP 500,000 U/5 ML UDC PO SCH ×3 (08:31→20:21)
[2017-03-14] MEDS: CLOPIDOGREL BISULFATE 75 MG TAB PO SCH (08:31)
[2017-03-14] MEDS: SPIRONOLACTONE 25 MG TAB PO SCH (08:31)
[2017-03-14] MEDS: NICOTINE 7 MG/24 HR TDSY TD SCH (09:00)
[2017-03-14] MEDS: BUDESONIDE 90 MCG INH INH SCH ×2 (09:48→20:21)
[2017-03-14] MEDS: SERTRALINE HCL 50 MG TAB PO SCH (09:48)
[2017-03-14] MEDS: FUROSEMIDE 20 MG TAB PO SCH (09:48)
[2017-03-14] MEDS ORDERED: MAGNESIUM HYDROXIDE SUSP 30 ML UDC PO ONE (13:15)
--- NOTE | 2017-03-14 13:24 | Family Medicine Progress Note ---
Progress Note Date of Service Mar 14, 2017. Subjective Pt evaluation today including: conversation w/ patient, conversation w/ family , physical exam, conversation w/ supply chain consultant, review of inpatient medication list Pain: none PO Intake: adequate Voiding: no voiding problems, no incontinence Patient with no acute events overnight She is still feeling very tired. She is unable to lay flat but she says that this is the norm for her. She denies any chest pain, palpitations, shortness of breath at rest. She denies any fevers, night sweats or chills. She has had some lower abdominal discomfort over the past two days, she says she had a bowel movement yesterday but that it was quite small Additional Comments: please see above for ROS Medications Current Inpatient Medications Medications (Trade) Dose Ordered Sig/Osmani Route Start Time Stop Time Status Last Admin Dose Admin Ioversol (Optiray 320) 125 ml UD PRN IV 03/12/17 17:00 03/16/17 16:59 Heparin Sodium (Porcine) (Heparin Sq 5000 Unit/0.5ml) 5,000 unit Q8 SQ 03/12/17 23:00 04/11/17 22:59 Acetaminophen (Tylenol Tab) 650 mg Q4H PRN PO 03/12/17 19:30 04/11/17 19:29 03/13/17 15:07 650 MG Al Hydrox/Mg Hydrox/Simethicone (Maalox Max Susp) 15 ml Q4H PRN PO 03/12/17 19:30 04/11/17 19:29 Magnesium Hydroxide (Milk Of Magnesia Susp) 30 ml Q12H PRN PO 03/12/17 19:30 04/11/17 19:29 Ondansetron HCl (Zofran Inj) 4 mg Q6H PRN IV 03/12/17 19:30 04/11/17 19:29 03/14/17 01:03 4 MG Nitroglycerin (Nitrostat Tab) 0.4 mg UD PRN SL 03/12/17 19:30 04/11/17 19:29 Polyethylene (Miralax Powder Packet) 17 gm DAILY PRN PO 03/12/17 19:30 04/11/17 19:29 Aspirin (Ecotrin Tab) 81 mg HS PO 03/12/17 22:00 04/11/17 21:59 03/13/17 21:16 81 MG Atorvastatin Calcium (Lipitor Tab) 80 mg HS PO 03/12/17 22:00 04/11/17 21:59 03/13/17 21:16 80 MG Carvedilol (Coreg Tab) 25 mg BID PO 03/12/17 22:00 04/11/17 21:59 03/14/17 08:31 25 MG Clopidogrel Bisulfate (plAVix TAB) 75 mg QAM PO 03/13/17 09:00 04/12/17 08:59 03/14/17 08:31 75 MG EZETIMIBE (Zetia Tab) 10 mg HS PO 03/12/17 22:00 04/11/17 21:59 03/13/17 21:16 10 MG Ferrous Sulfate (Feosol Tab) 325 mg BIDM PO 03/13/17 07:30 04/12/17 07:29 03/14/17 06:18 325 MG Fish Oil ([place]-3 (Purified Fish Oil) Cap) 1 gm DAILY PO 03/13/17 09:00 04/12/17 08:59 03/14/17 08:30 1 GM Salmeterol Xinafoate/ Fluticasone (Advair Diskus 500/50 Inh) 1 puff BID INH 03/12/17 22:00 04/11/17 21:59 03/14/17 08:30 1 PUFF Furosemide (Lasix Tab) 20 mg QAM PO 03/13/17 09:00 04/12/17 08:59 03/14/17 09:48 20 MG Albuterol/ Ipratropium (Combivent Respimat Inh) 1 puffs QID INH 03/12/17 22:00 04/11/17 21:59 03/14/17 08:29 1 PUFFS Lisinopril (Zestril Tab) 5 mg QAM PO 03/13/17 09:00 04/12/17 08:59 03/14/17 08:30 5 MG Magnesium Oxide (Mag-Ox Tab) 400 mg QAM PO 03/13/17 09:00 04/12/17 08:59 03/14/17 08:30 400 MG Nystatin (Mycostatin Susp) 5 ml QID PO 03/12/17 22:00 03/22/17 21:59 03/14/17 08:31 5 ML Potassium Chloride (Klor-Con M10) 10 meq QAM PO 03/13/17 09:00 04/12/17 08:59 03/14/17 08:30 10 MEQ Pramipexole Dihydrochloride (miraPEX TAB) 0.25 mg HS PO 03/12/17 22:00 04/11/17 21:59 03/13/17 21:16 0.25 MG Sertraline HCl (Zoloft Tab) 50 mg QAM PO 03/13/17 09:00 04/12/17 08:59 03/14/17 09:48 50 MG Spironolactone (Aldactone Tab) 25 mg QAM PO 03/13/17 09:00 04/12/17 08:59 03/14/17 08:31 25 MG Nicotine (Nicoderm Cq 7 Mg Patch) 1 patch QAM TD 03/13/17 09:00 04/12/17 08:59 Miscellaneous (Remove Nicoderm Patch) 1 ea HS N/A 03/13/17 21:00 04/12/17 20:59 Miscellaneous (Iv Fluids Completed) 1 ea PRN PRN N/A 03/12/17 22:00 03/12/18 21:59 Budesonide (Pulmicort Inhaler) 2 puffs BID INH 03/14/17 09:00 04/13/17 08:59 03/14/17 09:48 2 PUFFS Objective Vital Signs Date Time Temp Pulse Resp B/P (MAP) Pulse Ox O2 Delivery O2 Flow Rate FiO2 03/14/17 12:06 36.7 76 20 107/56 (73) 94 Room Air 03/14/17 08:00 Nasal Cannula 1.0 03/14/17 07:22 36.5 66 18 107/58 (74) 98 03/14/17 04:11 Room Air 1.5 03/14/17 03:50 36.7 78 18 119/59 (79) 98 Nasal Cannula 1.0 03/14/17 00:01 Room Air 1.5 03/13/17 23:30 36.9 74 20 103/43 (63) 96 Nasal Cannula 1.0 03/13/17 20:00 Room Air 1.5 03/13/17 19:58 70 14 98 Nasal Cannula 1.0 03/13/17 19:34 36.8 77 22 105/55 (72) 95 Nasal Cannula 1.0 03/13/17 16:00 36.8 78 18 104/56 (72) 94 Nasal Cannula 1.5 03/13/17 16:00 Nasal Cannula 1.5 Physical Exam General Appearance: WD/WN, no apparent distress Neck: supple, no adenopathy, no JVD, + pertinent finding (carotid bruits present) Respiratory/Chest: chest non-tender, lungs clear, no respiratory distress, no accessory muscle use Cardiovascular: regular rate, rhythm, no edema, + systolic murmur (3/6 murmur) , + normal peripheral pulses Abdomen: normal bowel sounds, non tender, soft Extremities: no calf tenderness, normal capillary refill Neurologic/Psychiatric: alert, normal mood/affect, oriented x 3 Skin: warm/dry, no rash, + pallor Laboratory Results Results Past 24 Hours Test 03/13/17 14:10 03/13/17 16:09 03/13/17 20:16 03/14/17 05:26 Range/Units Troponin I 0.037 0-0.045 ng/ml Bedside Glucose 113 126 70-90 mg/dl White Blood Count 4.61 4.8-10.8 K/uL Red Blood Count 2.88 4.2-5.4 M/uL Hemoglobin 8.9 12.0-16.0 g/dL Hematocrit 26.8 37-47 % Mean Corpuscular Volume 93.1 80-100 fL Mean Corpuscular Hemoglobin 30.9 25-34 pg Mean Corpuscular Hemoglobin Concent 33.2 32-36 g/dl RDW Standard Deviation 52.2 36.4-46.3 fL RDW Coefficient of Variation 15.3 11.5-14.5 % Platelet Count 305 130-400 K/uL Mean Platelet Volume 8.9 7.4-10.4 fL Sodium Level 135 136-145 mmol/L Potassium Level 4.2 3.5-5.1 mmol/L Chloride Level 98 98-107 mmol/L Carbon Dioxide Level 32 21-32 mmol/L Anion Gap 5.0 3-11 mmol/L Blood Urea Nitrogen 14 7-18 mg/dl Creatinine 0.92 0.60-1.20 mg/dl Est Creatinine Clear Calc Drug Dose 42.3 ml/min Estimated GFR () 72.1 Estimated GFR (Non- 62.2 BUN/Creatinine Ratio 14.8 10-20 Random Glucose 90 70-99 mg/dl Calcium Level 8.0 8.5-10.1 mg/dl Test 03/14/17 06:59 03/14/17 11:22 Range/Units Bedside Glucose 130 119 70-90 mg/dl Assessment and Plan Patient is a 71 year old female with DM, CAD, CHF, pacemaker placement, HTN, and asthma that presents with complaints of syncope, nausea, vomiting, and shortness of breath. Chronic Biventricular Systolic CHF - 2/2 Ischemic Cardiomyopathy. Has Biventricular pacer. ECHO 02/17 reduced LV and RV systolic function, severe mitral regurg, EF 25-30%. -- Patient will be given 40mg of furosemide IV after blood transfusion - Furosemide 20mg qAM - Spironolactone 25mg qAM - Lisinopril 5mg daily - Carvedilol 25mg twice daily - Potassium supplementation 10meq daily - Daily weights, I/Os, low salt diet, fluid restriction 1800mL - Trend BMP Acute on chronic hypoxic respiratory failure on background of emphysema - Continue supplemental oxygen - DuoNeb + Pulmicort started - Continue home inhalers (Advair and Combivent) Elevated troponin - .048--.045 and .037 - very mild elevation, likely due to chronically poor cardiac output - Significant history of vascular disease----> planned to go to vascular surgery in [place] for mesenteric ischaemia in April - Continue aspirin 81mg, clopidogrel 75mg, atorvastatin 80mg daily - Nitroglycerin PRN chest pain Anemia - Stable - 8.9--> will transfuse 1 unit of PRBC - Continue ferrous sulfate 325mg daily - Trend H/H Constipation - ordered milk of mag and miralax Thrush - Continue nystatin rinse QID - Advised to rinse mouth post inhaler/neb use Hypertension - Lisinopril 5mg qAM - Coreg 25mg BID Hyperlipidemia - Atorvastatin 80mg qHS + Ezetimibe 10mg qHS DVT Prophylaxis - Heparin 5,000 units Code Status - Full Resident Physician Supervision Note: I was present with PGY1 Dr. Arcenio Child during the history and exam. I discussed the case with the resident and agree with the findings and plan as documented in the note. Any exceptions or clarifications are listed here: patient does not have chronic respiratory failure (is not on home o2). Pt feels better today. Denies dyspnea or cough. Nervous to return home, asking to "stay for a couple extra days to make sure I' m ok." VSS, BPs low-normal but stable afebrile net neg fluid balance since admission gen - nad neck - JVD resolved heart - RRR, s1, s2 lungs - CTA b/l; no rales, no wheezing abd - soft, NT, no HSM ext - no edema labs - Cr 0.9 Hb 8.9 A/P: Probable acute/chronic systolic CHF - improved/resolved. CXR shows nice resolution of pulm edema. We discussed transfusion of PRBCs as her anemia could be exacerbating her CHF. Consent obtained; 1 unit PRBCs ordered; lasix 40mg IV x 1 after. Baseline Hb is about 13. Suspect she will need 40mg of po lasix (not 20) at d/c. COPD - compensated/not in exacerbation. Mesenteric ischemia - no symptoms at this time. [place] [facility] [place]. Unequal BPs - likely due to vascular disease/stenosis in left arm. Right arm BPs reflect her true systemic BP; avoid BPs in left arm. and daughter updated at bedside. Hopefully home tomorrow. Documented By: Maninder Cuevas MD Continued [facility] stay due to: home environment unsafe for pt
[2017-03-14] MEDS ORDERED: FUROSEMIDE INJ 40 MG in SYRINGE 0 ML IV SCH (13:30)
--- NOTE | 2017-03-14 13:51 | DIAGNOSTIC IMAGING REPORT ---
CHEST 2 VIEWS ROUTINE CLINICAL HISTORY: Congestive Heart Failure COMPARISON STUDY: 03/12/2017 FINDINGS: The patient is hyperinflated. Underlying emphysema is suspected. There is a left subclavian pacer/defibrillator present. There are small bilateral pleural effusions. There is resolving ingested failure. There is no lobar consolidation. The heart is mildly enlarged. IMPRESSION: 1. Emphysema 2. Resolving interstitial edema 3. Small pleural effusions 4. No evidence of acute parenchymal consolidation Electronically signed by: Micky Cutler M.D. 03/14/2017 1:49 PM Dictated Date/Time: 03/14/2017 1:48 PM
[2017-03-14] MEDS: ACETAMINOPHEN 325 MG TAB PO PRN (20:19)
[2017-03-14] MEDS: PRAMIPEXOLE DIHYDROCHLORIDE 0.25MG TAB PO SCH (20:20)
[2017-03-14] MEDS: EZETIMIBE 10MG TAB PO SCH (20:20)
[2017-03-14] MEDS: ASPIRIN 81 MG ECTAB PO SCH (20:21)
[2017-03-14] MEDS: ATORVASTATIN 40 MG TAB PO SCH (20:21)
[2017-03-15] MEDS: HEPARIN SOD 5000 UNIT/0.5 ML CARP SQ SCH ×3 (04:55→21:20)
[2017-03-15 07:17] VITALS: BP 117/68; PULSE 75; TEMP 36.9; O2SAT 95
[2017-03-15 07:43] LABS: HEMATOCRIT 34.1 % (37-47); MEAN CELL VOLUME 92.4 fL (80-100); MEAN CORPUSCULAR HEMOGLOBIN 30.6 pg (25-34); MEAN CORPUSCULAR HGB CONC 33.1 g/dl (32-36); PLATELET COUNT 355 K/uL (130-400); RED BLOOD COUNT 3.69 M/uL (4.2-5.4); WHITE BLOOD COUNT 4.66 K/uL (4.8-10.8)
[2017-03-15] MEDS: NICOTINE 7 MG/24 HR TDSY TD SCH (08:00)
[2017-03-15] MEDS ORDERED: POLYETHYLENE (MIRALAX) 17 GM PACK PO SCH (08:00)
[2017-03-15] MEDS: NYSTATIN SUSP 500,000 U/5 ML UDC PO SCH ×4 (08:09→21:18)
[2017-03-15] MEDS: FLUTICASONE/SALMETEROL (ADVAIR) 500/50 INH 14 PUFF INH SCH ×2 (08:09→21:15)
[2017-03-15] MEDS: BUDESONIDE 90 MCG INH INH SCH ×2 (08:09→21:15)
[2017-03-15] MEDS: IPRATROPIUM BROMIDE/ALBUTEROL respimat INH INH SCH ×4 (08:09→21:15)
[2017-03-15] MEDS: FERROUS SULFATE 325 MG TAB PO SCH ×2 (08:10→17:20)
[2017-03-15] MEDS: OMEGA-3 (PURIFIED FISH OIL) 1 GM CAP PO SCH (08:10)
[2017-03-15] MEDS: POTASSIUM CHLORIDE 10 MEQ TABCR PO SCH (08:11)
[2017-03-15] MEDS: FUROSEMIDE 20 MG TAB PO SCH (08:11)
[2017-03-15] MEDS: MAGNESIUM OXIDE 400 MG TAB PO SCH (08:11)
[2017-03-15] MEDS: SPIRONOLACTONE 25 MG TAB PO SCH (08:11)
[2017-03-15] MEDS: SERTRALINE HCL 50 MG TAB PO SCH (08:12)
[2017-03-15] MEDS: LISINOPRIL 5 MG TAB PO SCH (08:12)
[2017-03-15] MEDS: CLOPIDOGREL BISULFATE 75 MG TAB PO SCH (08:12)
[2017-03-15 08:28] LABS: BUN/CREATININE RATIO 11.6 (10-20); POTASSIUM 4.6 mmol/L (3.5-5.1)
[2017-03-15] MEDS: CARVEDILOL 25 MG TAB PO SCH ×2 (08:41→21:17)
--- NOTE | 2017-03-15 08:51 | Clinical Documentation Query ---
PANKAJ Webber : CLINICAL DOCUMENTATION QUERIES QUERY 1 OF 5 Clinical documentation includes a diagnosis of: Acute Respiratory Failure. ER provider and H&P documentation included " no respiratory distress", "no accessory muscle use", SpO2 within normal limits on room air. Isolated captured respiratory rate of 27/min. All others 18/min. Due to stringent requirements by our coding department, multiple clinical indicators associated with this diagnosis must be present in order for this to be coded/captured within the medical record. If appropriate, please document 2 or more of the following clinical indicators in daily progress notes and the discharge summary. If you feel the diagnosis of acute respiratory failure was made in error, or do not agree with it, simply discontinue documentation thereof. Acute Respiratory Failure indicators include: * Respirations >28 * Air hunger * Use of accessory muscles of respiration * Inability to speak in full sentences * Cyanosis * Pulse ox <90% RA or <95% on O2 *pH <7.35 or >7.45 * pO2 < 60 mm Hg (or 10mm below COPD patient's baseline) * pCO2 >50mm Hg (or 10mm above COPD patient's baseline) * mechanical ventilation * Increased work of breathing * Tachypnea QUERY 2 OF 5 Documentation includes "thrush". Please explicitly specify the location of thrush in your patient as this cannot be captured implicitly by the professional construction trades contractor. Thank you In your clinical opinion is this patient being managed for: ( ) Candidal stomatitis ( x ) Other explanation of clinical findings (Please Explain) Oral candidiasis ( ) Unable to determine (Please Define) ( ) Need to Discuss ( ) Not Agree The medical record reflects the following clinical findings, treatment, and risk factors. Clinical Indicators: As above Treatment: Nystatin rinse QID, rinse and spit post steroid inhaler Risk Factors: Steroid inhaler use with improper post administration care QUERY 3 OF 5 Documentation has included CKD, not otherwise specified. Historical estimated GFR range from 01/30/17 to present in the range of 50's to 80's. Please specify as clinically appropriate as this directly impacts DRG assignment. Thank you. In your clinical opinion is this patient being managed for: ( ) Chronic kidney disease, stage 3 ( ) Other explanation of clinical findings (Please Explain) ( ) Unable to determine (Please Define) ( ) Need to Discuss ( x ) Not Agree The medical record reflects the following clinical findings, treatment, and risk factors. Clinical Indicators: As above Treatment: Serial chemistries Risk Factors: Age, chronic systolic CHF, medications, DM, hypertension QUERY 4 OF 5 BMI noted per EMR to be 19.5 kg/m*m. In order to capture this clinical data, the associated condition must be explicitly documented by the provider. As appropriate, consider documentation as suggested below. In your clinical opinion is this patient being managed for: ( ) Thin/underweight, BMI 19.5 kg/m*m ( ) Other explanation of clinical findings (Please Explain) ( ) Unable to determine (Please Define) ( ) Need to Discuss ( x ) Not Agree The medical record reflects the following clinical findings, treatment, and risk factors. Clinical Indicators: As above Treatment: Automotive Welder consult Risk Factors: COPD, chronic systolic CHF QUERY 5 OF 5 Documentation includes: Chronic Biventricular Systolic CHF - 2/2 Ischemic Cardiomyopathy. Has Biventricular pacer. ECHO 02/17 reduced LV and RV systolic function, severe mitral regurg, EF 25-30%. -- Patient will be given 40mg of furosemide IV after blood transfusion - Furosemide 20mg qAM - Spironolactone 25mg qAM - Lisinopril 5mg daily - Carvedilol 25mg twice daily - Potassium supplementation 10meq daily - Daily weights, I/Os, low salt diet, fluid restriction 1800mL - Trend BMP In your clinical opinion is this patient being managed for: (x ) Acute on chronic systolic congestive heart failure ( ) Other explanation of clinical findings (Please Explain) ( ) Unable to determine (Please Define) ( ) Need to Discuss ( ) Not Agree The medical record reflects the following clinical findings, treatment, and risk factors. Clinical Indicators: As above Treatment: IV Lasix, spironolactone, lisinopril, carvedilol, daily weights, I/O, low salt diet, fluid restriction, serial chemistries Risk Factors: Age, anemia, smoking, COPD, non-compliance with medical regimen Please clarify and document your clinical opinion in the progress notes and discharge summary. Terms such as "probable", "suspected", "likely", "questionable", "possible", or "still to be ruled out" are acceptable. IF IN AGREEMENT, YOU MUST DOCUMENT ABOVE DIAGNOSTIC STATEMENT IN DAILY PROGRESS NOTES AND DISCHARGE SUMMARY. This document is not part of the patient's record. Thank You, Florencio Sims, NOEMI [phone]
[2017-03-15 09:07] LABS: CALCIUM 8.9 mg/dl (8.5-10.1)
[2017-03-15] MEDS ORDERED: LSX20 PO (09:36)
--- NOTE | 2017-03-15 09:43 | Discharge Instructions ---
Discharge Instructions Date of Service Mar 15, 2017. Admission Reason for Admission: Emphysema Of Lung, Non Compliance W/ Medication Discharge Discharge Diagnosis / Problem: CHF exacerbation Discharge Goals Goal(s): Improve function, Prevent Disease Progression Activity Recommendations Activity Limitations: resume your previous activity . Instructions / Follow-Up Instructions / Follow-Up You were diagnosed with worsening congestive heart failure when you were in the hospital We gave you diuretics in the IV which helped clear fluid from your lungs We also gave you 1 unit of red blood cells to help with your low blood counts The only medication change we will be making for you is an increase of your furosemide to 40mg OD. Please follow up with Dr. Flynn in his clinic next week If you have any worsening shortness of breath, chest pain, abdominal pain or vomiting then please come back to the emergency department Current Hospital Diet Patient's current hospital diet: AHA Diet (Heart Healthy), Low Sodium Diet (2gm Na) Discharge Diet Recommended Diet: AHA Diet (Heart Healthy), Low Sodium Diet (2gm Na) Pending Studies Studies pending at discharge: no Laboratory Results Hemoglobin A1c Test 02/17/17 07:06 Range/Units Estimated Average Glucose 131 mg/dl Hemoglobin A1c 6.2 H 4.5-5.6 % Lipid Panel Test 01/30/17 13:22 Range/Units Triglycerides Level 59 0-150 mg/dl Cholesterol Level 99 0-200 mg/dl HDL Cholesterol 60 mg/dl Cholesterol/HDL Ratio 1.7 LDL Cholesterol, Calculated 27 mg/dl Medical Emergencies . Who to Call and When: Medical Emergencies: If at any time you feel your situation is an emergency, please call 911 immediately. . Non-Emergent Contact Non-Emergency issues call your: Primary Care Provider . . "Provider Documentation" section prepared by Arcenio Child. . VTE Core Measure Inpt VTE Proph given/why not?: Unfractionated heparin SQ
--- NOTE | 2017-03-15 12:10 | Discharge Summary ---
Discharge Summary Date of Service Mar 15, 2017. (Arcenio Child MD) Discharge Summary Admission Date: Mar 14, 2017 at 11:06 Discharge Date: Mar 15, 2017 Discharge Disposition: Home Principal Diagnosis: CHF exacerbation Immunizations: Have You Had Influenza Vaccine: Yes Influenza Vaccine Date: Oct 12, 2012 History of Tetanus Vaccine?: Unknown History of Pneumococcal: Unknown History of Hepatitis B Vaccine: No (Arcenio Child MD) Discharge Date: Mar 16, 2017 Discharge Disposition: Home Principal Diagnosis: CHF exacerbation Problems/Secondary Diagnoses: COPD, anxiety (Alka. Delaney MD) Problems/Secondary Diagnoses: 1. acute/chronic systolic CHF 2. CKD stage 3 3. anemia 4. known mesenteric ischemia - awaiting surgical intervention at [facility] 5. asthma/COPD 6. pacemaker/AICD status 7. CAD 8. thrush - resolved 9. T2DM 10. hyperlipidemia 11. severe PAD 12. constipation - improved 13. acute respiratory distress - resolved Procedures: PRBC transfusion x 1 unit CTA chest - IMPRESSION: 1. There is no evidence of pulmonary embolus in the main, lobar, or segmental pulmonary arteries. This is unchanged from the study performed 3 weeks ago. 2. Cardiomegaly and AICD with evidence of cardiac dysfunction. Diffuse intralobular septal thickening suggests congestive failure. Clinical correlation will be required. 3. Emphysema with evidence of pulmonary artery hypertension. 4. There are small pleural effusions with bibasilar airspace opacities which likely represent atelectasis. Correlated clinically for evidence of an infectious/inflammatory pneumonitis. Effusions have modestly increased in size from 02/16/2017. 5. Mildly enlarged mediastinal lymph nodes are similar to previous. (Maninder Cuevas MD) Medication Reconciliation New Medications: Alprazolam (Xanax) 0.5 Mg Tab 0.25 MG PO Q6H for Anxiety/Agitation, #15 TAB Ipratropium-Albuterol (Duoneb) 3 Ml Nebu 1 TREATMENT INH Q4H for SOB/Wheezing for 30 Days, #1 INHA Furosemide (Furosemide) 40 Mg Tab 40 MG PO QAM for 30 Days, #30 TAB 3 Refills Polyethylene (Miralax) 17 Gm Pow 17 GM PO BID for 30 Days, #30 EA 3 Refills Take daily, or twice daily if no bowel movement in 2 days or if feeling constipated Changed Medications: Furosemide (Furosemide) 20 Mg Tab 40 MG PO QAM, #30 TAB 2 Refills (Changed from: 20 MG) for your heart and fluid Continued Medications: Acetaminophen (Tylenol) 500 Mg Tab 1000 MG PO Q6 PRN for Headache, TAB Aspirin (Aspirin Chewable) 81 Mg Chew 81 MG PO QPM, TAB Atorvastatin Calcium (Lipitor) 80 Mg Tab 80 MG PO HS, TAB Carvedilol (Coreg) 25 Mg Tab 25 MG PO BID, TAB Clopidogrel Bisulfate (Plavix) 75 Mg Tab 75 MG PO QAM, TAB Ezetimibe (Zetia) 10 Mg Tab 10 MG PO HS, TAB Ferrous Sulfate (Ferrous Sulfate) 325 Mg Tab 325 MG PO BID, #60 TBS 2 Refills take each dose with a glass of orange juice Fish Oil (Tribune-3) 1 Ea Cap 1 CAP PO DAILY, CAP Fluticasone Prop/Salmeterol (Advair Diskus 500/50 60 Dose) 1 Ea Aerp 1 PUFFS INH BID, #180 Ipratropium-Albuterol (Combivent Respimat) 1 Aer Aer 1 PUFFS INH QID, #1 INHALER 2 Refills Lisinopril (Lisinopril) 5 Mg Tab 5 MG PO QAM, #30 TAB 2 Refills for your heart Magnesium Oxide (Magnesium-Oxide) 400 Mg Tab 400 MG PO QAM, #30 TAB 2 Refills Nystatin (Nystatin) 5 Ml Susp 5 ML PO QID for 10 Days, #200 ML 0 Refills swish and swallow Potassium Chloride (Micro-K Ext Rel) 10 Meq Capcr 10 MEQ PO BID, CAP Pramipexole Dihydrochloride (Pramipexole Dihydrochlori) 0.25 Mg Tab 1 TAB PO HS, #60 Sertraline (Zoloft) 50 Mg Tab 50 MG PO QAM, TAB Spironolactone (Spironolactone) 25 Mg Tab 25 MG PO QAM, #30 TAB 2 Refills for your heart and fluid Discharge Exam Patient with no acute events overnight Doing well and is currently asymptomatic She has been walking around the [place], she denies any chest pain, shortness of breath, pnd or worsening leg swelling Review of Systems: Constitutional: No fever, No chills, No sweats Respiratory: No cough, No sputum, No shortness of breath, No dyspnea on exertion Cardiovascular: No chest pain, No orthopnea, No edema, No palpitations Abdomen: No pain, No nausea, No vomiting Physical Exam: General Appearance: WD/WN, no apparent distress Neck: no adenopathy, no JVD, + pertinent finding (carotid bruits present bilaterally) Respiratory/Chest: lungs clear, no respiratory distress, no accessory muscle use Cardiovascular: regular rate, rhythm, no edema, normal peripheral pulses, + systolic murmur (3/6 LUSB) Abdomen / GI: normal bowel sounds, non tender, soft Extremities: no calf tenderness, normal capillary refill, no pedal edema, non-tender Neurologic/Psychiatric: alert, normal mood/affect, oriented x 3 (Arcenio Child MD) Hospital Course Patient is a 71 year old female with DM, CAD, CHF, pacemaker placement, HTN, and asthma that presented with complaints of syncope, nausea, vomiting, and shortness of breath. Was found to have worsening CHF with pleural effusion on CXR and increased swelling in her lower extremities Chronic Biventricular Systolic CHF - 2/2 Ischemic Cardiomyopathy. Has Biventricular pacer. ECHO 02/17 reduced LV and RV systolic function, severe mitral regurg, EF 25-30%. - Patient was given 40mg of furosemide IV 4-5 times throughout her hospital in order to diurese her - She had a repeat CXR which showed resolution of her pulmonary edema - She was discharged from the hospital with 40mg of lasix OD instead of 20mg and she is to follow up with Dr. Flynn in 1 week as an outpatient - Furosemide 40mg qAM - Spironolactone 25mg qAM - Lisinopril 5mg daily - Carvedilol 25mg twice daily - Potassium supplementation 10meq daily Acute on chronic hypoxic respiratory failure on background of emphysema - Patient did require some supplemental oxygen via nasal cannula during her stay but her sats remained in the high 90's and she was weaned to room air the day before discharge - Continue home inhalers (Advair and Combivent) Elevated troponin - .048--.045 and .037 - very mild elevation, likely due to chronically poor cardiac output - Significant history of vascular disease----> planned to go to vascular surgery in [place] for mesenteric ischaemia in April - Continue aspirin 81mg, clopidogrel 75mg, atorvastatin 80mg daily Anemia - Patient did receive 1 unit of PRBC in hospital. - Hgb on day of discharge was 11.3, up from 8.9 - Continue ferrous sulfate 325mg daily Constipation - Patient did complain of mild constipation while in hospital of only 1 day duration and received milk of mag and miralax which helped her move her bowels more easily - Ordered a KUB on day of discharge and found to have moderate constipation - Gave patient dose of senna to see if that would help her have a bowel movement Thrush - Continue nystatin rinse QID - Advised to rinse mouth post inhaler/neb use Hypertension - Lisinopril 5mg qAM - Coreg 25mg BID Hyperlipidemia - Atorvastatin 80mg qHS + Ezetimibe 10mg qHS Patient discharged on 03/15/2017 with follow up with Dr. Flynn in 1 week Total Time Spent: Less than 30 minutes This includes examination of the patient, discharge planning, medication reconciliation, and communication with other providers. (Arcenio Child .MD) Discharge addendum: In addition to changing furosemide from 20mg to 40mg daily, the follow medication changes have been made - Daily Iron supplements - Advise to continue Miralax daily as iron can increase constipation. Advised BID use if patient feeling constipated or no bowel movement in 2-3 days. - Duonebs have been prescribed to taken if struggling with inhalers, or PRN ongoing shortness of breath. - Xanax 0.25mg q6h PRN anxiety. (Alka. Delaney MD) Attending Discharge Note & Attestation: Pt seen/examined, chart reviewed, and care plan d/w PGY1 Dr. Tisha Delaney and Dr. Arcenio Child. I agree w/ the jacobsen components of the discharge summary. 71yo female with chronic systolic CHF, COPD, PAD, mesenteric ischemia - with multiple hospital admissions over the last 1-2 months for mesenteric ischemia and CHF - who presented with acute respiratory distress. This was likely 2nd to acute/ chronic systolic CHF along with COPD & anxiety. She was diuresed for her CHF and all pulmonary symptoms resolved during her stay. She was transfused 1 unit of PRBCs and discharge hemoglobin was 11.4. Other issues addressed - constipation and anxiety. Discharge exam - gen - nad, mildly anxious mouth - thrush resolved neck - JVD resolved heart - RRR, s1, s2 lungs - CTA b/l abd - soft, NT, ND, BS+ ext - no edema She was instructed to increase her lasix to 40mg QAM and continue on aldactone for her CHF. A bowel regimen was also encouraged. F/u with Dr. Flynn and her PCP was stressed due to the frequency of her hospital readmissions. Total time spent on the discharge process - 45 minutes. Maninder Cuevas MD Total Time Spent: Greater than 30 minutes (Maninder Cuevas MD) Discharge Instructions Please refer to the electronic Patient Visit Report (Discharge Instructions) for additional information. (Arcenio Child MD) Additional Copies To RV. Edwards MD; Otto Flynn M.D. Resident Tracking Resident Involvement: Resident Care Provided Care Provided: Adult Hospital Medicine (Alka. Delaney MD)
[2017-03-15 15:13] VITALS: BP 113/63; PULSE 75; TEMP 36.8; O2SAT 95
--- NOTE | 2017-03-15 15:13 | DIAGNOSTIC IMAGING REPORT ---
KUB CLINICAL HISTORY: Generalized abdominal pain. FINDINGS: An AP supine abdominal radiograph is correlated with abdominal CT dated 03/02/2017. There is a nonobstructed abdominal bowel gas pattern. Moderate colonic fecal retention is observed. There are numerous small bilateral nonobstructing renal calculi. Advanced atherosclerotic calcification is noted in the abdominal aorta and iliac vessels. The skeletal structures are osteopenic. Moderate lumbosacral spondylosis is observed. Cardiomegaly and cardiac pacemaker leads are seen at the lung bases. IMPRESSION: Nonobstructed abdominal bowel gas pattern noting moderate constipation. Electronically signed by: Antonio Astorga M.D. 03/15/2017 3:11 PM Dictated Date/Time: 03/15/2017 2:56 PM
[2017-03-15] MEDS: SENNA 8.6 MG TAB PO SCH (17:19)
[2017-03-15 21:14] VITALS: BP 115/61; PULSE 77
[2017-03-15] MEDS: POLYETHYLENE (MIRALAX) 17 GM PACK PO SCH (21:17)
[2017-03-15] MEDS: ASPIRIN 81 MG ECTAB PO SCH (21:19)
[2017-03-15] MEDS: ATORVASTATIN 40 MG TAB PO SCH (21:19)
[2017-03-15] MEDS: EZETIMIBE 10MG TAB PO SCH (21:20)
[2017-03-15] MEDS: PRAMIPEXOLE DIHYDROCHLORIDE 0.25MG TAB PO SCH (21:20)
--- NOTE | 2017-03-15 22:16 | Progress Note ---
Subjective Date of Service: Mar 15, 2017. Subjective Pt evaluation today including: conversation w/ patient, conversation w/ family , physical exam, chart review, lab review, review of studies (abd x-rays), review of inpatient medication list Pain: mild left sided abdominal discomfort PO Intake: fair Voiding: no voiding problems no dyspnea no orthopnea no PND no cough no wheeze no chest pain only complaint - left-sided abd discomfort - DIFFERENT than pain she had w/ mesenteric ischemia "feels like I have to have a BM" following a bowel movement late today she felt better nervous to be discharged Problem List Medical Problems: (1) Acute asthma exacerbation Status: Acute (2) Acute bronchitis Status: Acute (3) Anemia Status: Acute (4) CHF (congestive heart failure) Status: Acute (5) CHF (congestive heart failure) Status: Acute (6) Elevated troponin Status: Acute (7) Hyponatremia Status: Acute (8) Hypoxia Status: Acute (9) Intractable nausea and vomiting Status: Acute (10) Mesenteric ischemia Status: Acute (11) Nausea Status: Acute (12) Pulmonary edema Status: Acute (13) Respiratory distress Status: Acute (14) SOB (shortness of breath) Status: Acute (15) Syncope Status: Acute Review of Systems Constitutional: No fever, No chills Respiratory: No shortness of breath, No dyspnea on exertion Cardiac: No chest pain, No orthopnea, No PND, No edema Abdomen: + see HPI, No nausea, No vomiting Objective Vital Signs Date Time Temp Pulse Resp B/P (MAP) Pulse Ox O2 Delivery O2 Flow Rate FiO2 03/15/17 21:14 77 115/61 (79) 03/15/17 16:00 Room Air 03/15/17 15:13 36.8 75 16 113/63 (80) 95 Room Air 03/15/17 08:00 Room Air 03/15/17 07:17 36.9 75 18 117/68 (84) 95 Room Air 03/15/17 00:30 Room Air 03/14/17 23:15 36.8 84 20 102/51 (68) 92 Room Air Physical Exam General Appearance: no apparent distress, + thin ENT: pharynx normal Neck: no JVD Respiratory/Chest: lungs clear, no respiratory distress, no accessory muscle use Cardiovascular: regular rate, rhythm, no gallop, + systolic murmur (1/6 LSB) Abdomen: normal bowel sounds, non tender, soft, no organomegaly Extremities: no pedal edema Neurologic/Psychiatric: alert, oriented x 3, + pertinent finding (anxious) Laboratory Results Last 24 Hours Test 03/15/17 07:00 03/15/17 11:59 White Blood Count 4.66 K/uL Red Blood Count 3.69 M/uL Hemoglobin 11.3 g/dL Hematocrit 34.1 % Mean Corpuscular Volume 92.4 fL Mean Corpuscular Hemoglobin 30.6 pg Mean Corpuscular Hemoglobin Concent 33.1 g/dl RDW Standard Deviation 52.5 fL RDW Coefficient of Variation 15.5 % Platelet Count 355 K/uL Mean Platelet Volume 9.0 fL Sodium Level 136 mmol/L Potassium Level 4.6 mmol/L Chloride Level 99 mmol/L Carbon Dioxide Level 32 mmol/L Anion Gap 5.0 mmol/L Blood Urea Nitrogen 12 mg/dl Creatinine 1.00 mg/dl Est Creatinine Clear Calc Drug Dose 38.9 ml/min Estimated GFR () 65.2 Estimated GFR (Non- 56.2 BUN/Creatinine Ratio 11.6 Random Glucose 92 mg/dl Calcium Level 8.9 mg/dl Chemistry Specimen Hemolysis Bedside Glucose 115 mg/dl Assessment and Plan 71yo female- 1. acute/chronic systolic CHF - acute component resolved. Cont BB, low-dose WALTER. Cont lasix - increase to 40mg at discharge. Cont aldactone. BMP and mag in am. 2. COPD - compensated/not in exacerbation. 3. Mesenteric ischemia - no symptoms at this time. F/u C in April for possible surgical intervention. 4. left-sided abd discomfort - due to constipation. abdominal x-rays with moderate constipation. following a bowel movement today she had improvement in symptoms. aggressive bowel regimen. 5. chronic anemia - due to Fe def. s/p 1 unit PRBCs overnight with improvement in H/H. Fe supplement at d/c. 6. PAD - aggressive Rx of lipids, etc. 7. CKD stage 3 - Cr stable. BMP am. anticipate d/c in AM. Discharge planning: home
[2017-03-15 23:14] VITALS: BP 105/58; PULSE 78; TEMP 37.1; O2SAT 94
[2017-03-16] MEDS: HEPARIN SOD 5000 UNIT/0.5 ML CARP SQ SCH (05:54)
[2017-03-16 07:26] VITALS: BP 110/45; PULSE 80; TEMP 36.8; O2SAT 91
[2017-03-16 07:45] LABS: BUN/CREATININE RATIO 13.9 (10-20); CALCIUM 8.6 mg/dl (8.5-10.1); CREATININE 0.86 mg/dl (0.60-1.20); MAGNESIUM 2.4 mg/dl (1.8-2.4); POTASSIUM 4.8 mmol/L (3.5-5.1)
[2017-03-16] MEDS: FLUTICASONE/SALMETEROL (ADVAIR) 500/50 INH 14 PUFF INH SCH (07:50)
[2017-03-16] MEDS: NYSTATIN SUSP 500,000 U/5 ML UDC PO SCH (07:50)
[2017-03-16] MEDS: FERROUS SULFATE 325 MG TAB PO SCH (07:51)
[2017-03-16] MEDS: IPRATROPIUM BROMIDE/ALBUTEROL respimat INH INH SCH (07:51)
[2017-03-16] MEDS: CARVEDILOL 25 MG TAB PO SCH (07:51)
[2017-03-16] MEDS: BUDESONIDE 90 MCG INH INH SCH (07:51)
[2017-03-16] MEDS: SERTRALINE HCL 50 MG TAB PO SCH (07:51)
[2017-03-16] MEDS: POTASSIUM CHLORIDE 10 MEQ TABCR PO SCH (07:52)
[2017-03-16] MEDS: OMEGA-3 (PURIFIED FISH OIL) 1 GM CAP PO SCH (07:52)
[2017-03-16] MEDS: SPIRONOLACTONE 25 MG TAB PO SCH (07:52)
[2017-03-16] MEDS: LISINOPRIL 5 MG TAB PO SCH (07:53)
[2017-03-16] MEDS: MAGNESIUM OXIDE 400 MG TAB PO SCH (07:53)
[2017-03-16] MEDS: CLOPIDOGREL BISULFATE 75 MG TAB PO SCH (07:53)
[2017-03-16] MEDS: POLYETHYLENE (MIRALAX) 17 GM PACK PO SCH (07:53)
[2017-03-16] MEDS: SENNA 8.6 MG TAB PO SCH (07:53)
[2017-03-16] MEDS: NICOTINE 7 MG/24 HR TDSY TD SCH (07:54)
[2017-03-16] MEDS ORDERED: FUROSEMIDE 40 MG TAB PO SCH (08:00)
[2017-03-16] MEDS ORDERED: IPRASOL4 INH ×3 (11:12→18:37)
[2017-03-16] MEDS ORDERED: MRLP17 PO (11:12)
[2017-03-16] MEDS ORDERED: LSX40 PO (11:12)
[2017-03-16] MEDS ORDERED: ALPR-411 PO (11:14)
[2017-03-16 11:30] VITALS: BP 110/45; PULSE 80; TEMP 36.8; O2SAT 91
[2017-05-31] MEDS ORDERED: SERT50TA PO (07:16)
[2017-05-31] MEDS ORDERED: CLOP1TAB54 PO (07:16)
[2017-05-31] MEDS ORDERED: EZET10TA47 PO (07:16)
[2017-08-13] MEDS ORDERED: FRS/40 PO (14:55)
== END 2017-03-16 12:45 | disposition home or self-care (01) | DRG 291 ==
LOC: EDBD 15:38 → C.EDC 15:39 → ENRESERV 19:54 → C.2T 19:59 → EDBEDREQ 20:24 → OBSVTOIN 03-14 11:06 → ENRESERV 03-14 11:10 → C.4E 03-14 12:01
PROVIDERS: ADMIT Hospitalist; ATTEND Internal Medicine
DX: I13.0 Hypertensive heart and chronic kidney disease with heart failure and stage 1 through stage 4 chronic kidney disease, or unspecified chronic kidney disease (principal); I50.23 Acute on chronic systolic (congestive) heart failure; B37.0 Candidal stomatitis; K55.1 Chronic vascular disorders of intestine; J44.9 Chronic obstructive pulmonary disease, unspecified; J45.909 Unspecified asthma, uncomplicated; D50.9 Iron deficiency anemia, unspecified; N18.3 Chronic kidney disease, stage 3 (moderate); I25.10 Atherosclerotic heart disease of native coronary artery without angina pectoris; I73.9 Peripheral vascular disease, unspecified; K59.00 Constipation, unspecified; E11.22 Type 2 diabetes mellitus with diabetic chronic kidney disease; E78.5 Hyperlipidemia, unspecified; E78.00 Pure hypercholesterolemia, unspecified; Z51.81 Encounter for therapeutic drug level monitoring; Z79.899 Other long term (current) drug therapy; Z79.82 Long term (current) use of aspirin; Z91.14 Patient's other noncompliance with medication regimen; Z79.02 Long term (current) use of antithrombotics/antiplatelets; Z95.810 Presence of automatic (implantable) cardiac defibrillator; Z87.891 Personal history of nicotine dependence; Z83.3 Family history of diabetes mellitus; Z82.49 Family history of ischemic heart disease and other diseases of the circulatory system; Z84.1 Family history of disorders of kidney and ureter

== ENCOUNTER 2017-03-20 16:26 | Inpatient (IN) | payer BC, OTHER ==
[~2017-03-20] VITALS: Ht 157.5 cm; Wt 48.6 kg
[~2017-03-20 16:26] MED LIST changes: +ALPR-411 PO; +IPRASOL4 INH; +LSX40 PO; +MRLP17 PO; -POTA-74 PO
[2017-03-20] MEDS ORDERED: ACETAMINOPHEN 325 MG TAB PO PRN (17:00)
[2017-03-20 17:10] VITALS: BP 115/49; PULSE 72; TEMP 36.4; O2SAT 95
[2017-03-20 17:11] VITALS: BP 115/49; PULSE 72; TEMP 36.4; O2SAT 95; Ht 157.5 cm; Wt 48.6 kg
[2017-03-20] MEDS ORDERED: GLUCAGON FOR INJ 1 MG VIAL SQ PRN (17:30)
[2017-03-20] MEDS ORDERED: GLUCOSE 10 TABS/TUBE PO PRN (17:30)
[2017-03-20] MEDS ORDERED: DEXTROSE 50% 50 ML SYR IV PRN (17:30)
[2017-03-20] MEDS ORDERED: GLUCOSE 40% GEL 15 GM TUBE PO PRN (17:30)
[2017-03-20 18:45] LABS: BASO % 0.2 %; BASO ABS # 0.01 K/uL (0-0.2); COMPLETE YES; HEMATOCRIT 38.4 % (37-47); IG% 0.5 %; LYMPH % 25.3 %; LYMPH ABS # 1.45 K/uL (1.2-3.4); MEAN CELL VOLUME 89.1 fL (80-100); MEAN CORPUSCULAR HEMOGLOBIN 29.5 pg (25-34); MEAN CORPUSCULAR HGB CONC 33.1 g/dl (32-36); MEAN PLATELET VOLUME 8.1 fL (7.4-10.4); MONO % 16.1 %; NEUT % 56.9 %; PLATELET COUNT 402 K/uL (130-400); RED BLOOD COUNT 4.31 M/uL (4.2-5.4); WHITE BLOOD COUNT 5.73 K/uL (4.8-10.8)
[2017-03-20 19:11] VITALS: BP 107/54; PULSE 69; TEMP 36.3; O2SAT 94
[2017-03-20] MEDS: ALBUT/IPRATROP 3MG/0.5MG NEB 3 ML VIAL INH SCH (19:19)
[2017-03-20 19:20] LABS: BUN/CREATININE RATIO 18.7 (10-20); CREATININE 1.4 mg/dl (0.60-1.20); MAGNESIUM 2.6 mg/dl (1.8-2.4)
[2017-03-20 19:23] VITALS: PULSE 76; O2SAT 93
[2017-03-20 19:23] LABS: ALB/GLOB RATIO 0.7 (0.9-2)
[2017-03-20] MEDS ORDERED: ALBUTEROL HFA 8 GM INHALER INH PRN (20:00)
--- NOTE | 2017-03-20 20:26 | DIAGNOSTIC IMAGING REPORT ---
CHEST 2 VIEWS ROUTINE CLINICAL HISTORY: Syncope dyspnea COMPARISON STUDY: 03/14/2017 FINDINGS: Improved exam. Near-complete resolution of the small bilateral pleural effusions. Interstitial edema has diminished. Cardiac size remains mildly enlarged. There is a permanent bipolar cardiac pacemaker/defibrillator. Upper lungs are clear. IMPRESSION: Improved exam from the prior study. Minimal residual interstitial edema. Electronically signed by: César Muñoz M.D. 03/20/2017 8:25 PM Dictated Date/Time: 03/20/2017 8:24 PM
[2017-03-20] MEDS: INSULIN ASPART 100 UNITS/ML 3 ML PEN SC SCH (20:32)
[2017-03-20] MEDS: FLUTICASONE/SALMETEROL (ADVAIR) 500/50 INH 14 PUFF INH SCH (20:34)
[2017-03-20] MEDS: POTASSIUM CHLORIDE 10 MEQ TABCR PO SCH (20:34)
[2017-03-20] MEDS: CARVEDILOL 25 MG TAB PO SCH (20:36)
[2017-03-20] MEDS: PRAMIPEXOLE DIHYDROCHLORIDE 0.5 MG TAB PO SCH (20:36)
[2017-03-20] MEDS: MAGNESIUM CHLORIDE 64MG DELAYED REL TAB PO SCH (20:37)
[2017-03-21] VITALS (18 sets, daily range): BP systolic 91–119; BP diastolic 40–55; PULSE 67–80; TEMP 36.3–36.7; O2SAT 89–98
[2017-03-21] MEDS: ALBUT/IPRATROP 3MG/0.5MG NEB 3 ML VIAL INH SCH ×4 (07:03→19:10)
[2017-03-21] MEDS: FLUTICASONE/SALMETEROL (ADVAIR) 500/50 INH 14 PUFF INH SCH ×2 (08:17→21:25)
[2017-03-21] MEDS: INSULIN ASPART 100 UNITS/ML 3 ML PEN SC SCH ×4 (08:17→21:28)
[2017-03-21] MEDS: TIOTROPIUM BROMIDE 5 PUFF/90 MCG INH INH SCH (08:18)
[2017-03-21] MEDS: SPIRONOLACTONE 25 MG TAB PO SCH (08:19)
[2017-03-21] MEDS: SERTRALINE HCL 50 MG TAB PO SCH (08:19)
[2017-03-21] MEDS: MAGNESIUM CHLORIDE 64MG DELAYED REL TAB PO SCH ×2 (08:19→21:26)
[2017-03-21] MEDS: CLOPIDOGREL BISULFATE 75 MG TAB PO SCH (08:19)
[2017-03-21] MEDS: EZETIMIBE 10MG TAB PO SCH (08:20)
[2017-03-21] MEDS: ASPIRIN 81 MG ECTAB PO SCH (08:20)
[2017-03-21] MEDS: PANTOprazole SOD 40 MG TAB PO SCH (08:20)
[2017-03-21] MEDS: LISINOPRIL 40 MG TAB PO SCH (08:20)
[2017-03-21] MEDS: CARVEDILOL 25 MG TAB PO SCH ×2 (08:21→21:26)
[2017-03-21] MEDS: ATORVASTATIN 40 MG TAB PO SCH (08:21)
[2017-03-21] MEDS: FERROUS SULFATE 325 MG TAB PO SCH (08:21)
[2017-03-21] MEDS: FUROSEMIDE 40 MG TAB PO SCH (08:22)
[2017-03-21] MEDS: POTASSIUM CHLORIDE 10 MEQ TABCR PO SCH ×2 (08:35→21:27)
[2017-03-21] MEDS: ALPRAZOLAM 0.25 MG TAB PO PRN ×2 (08:36→23:18)
[2017-03-21] MEDS ORDERED: NURSING VERBAL MED ORDER ONE (09:45)
[2017-03-21] MEDS ORDERED: ONDANSETRON INJ 2 MG/ML 2 ML VIAL ONE (09:46)
[2017-03-21] MEDS ORDERED: LACTATED RINGER'S 1000ML 1,000 ML IV ONE (10:35)
[2017-03-21] MEDS ORDERED: CEFAZOLIN 1000MG/55 ML D5W IV SCH (11:00)
--- NOTE | 2017-03-21 11:58 | Cardiology Follow-Up ---
Subjective Date of Service: Mar 21, 2017. Pt evaluation today including: conversation w/ patient, physical exam, lab review, review of studies, review of inpatient medication list History of Present Illness Patient feels well this morning, no further lightheaded or presyncopal spells. She was nauseous however. No other complaints. Social History Smoking Status: Former Smoker History of Alcohol Use: Yes (social) Medications Cardiovascular: Item Value Date Time Atorvastatin 80 mg 03/21/17 0900 Calcium QAM/PO 03/21/17 0821 (Lipitor Tab) Aspirin 81 mg 03/21/17 0900 (Ecotrin Tab) QAM/PO 03/21/17 0820 Clopidogrel 75 mg 03/21/17 0900 Bisulfate QAM/PO 03/21/17 0819 (plAVix TAB) Lisinopril 40 mg 03/21/17 0900 (Zestril Tab) QAM/PO 03/21/17 0820 EZETIMIBE 10 mg 03/21/17 0900 (Zetia Tab) QAM/PO 03/21/17 0820 Spironolactone 25 mg 03/21/17 0900 (Aldactone Tab) QAM/PO 03/21/17 0819 Furosemide 40 mg 03/21/17 0900 (Lasix Tab) QAM/PO 03/21/17 0822 Carvedilol 25 mg 03/20/17 2100 (Coreg Tab) BID/PO 03/21/17 0821 Magnesium Chloride 64 mg 03/20/17 2100 (Slow-Mag Tab) BID/PO 03/21/17 0819 Potassium Chloride 10 meq 03/20/17 2100 (Klor-Con M10) BID/PO 03/21/17 0835 Objective Vital Signs Past 12 Hours Date Time Temp Pulse Resp B/P (MAP) Pulse Ox O2 Delivery O2 Flow Rate FiO2 03/21/17 07:46 36.3 67 18 118/55 (76) 95 Room Air 03/21/17 07:03 77 16 95 Room Air 03/21/17 04:00 93 Room Air 03/21/17 03:47 36.6 72 20 102/44 (63) 93 Room Air 03/21/17 00:00 36.6 74 113/53 (73) Room Air 91.0 03/21/17 00:00 91 Room Air Last Recorded Weight-Kilograms: 46.800 Physical Exam Constitutional: Level of Distress: NAD Lungs: Auscultation: breath sounds normal Cardiovascular: Heart Auscultation: RRR Extremities: no edema Data Laboratory Results: Last 24 Hours Test 03/20/17 18:37 03/20/17 20:19 03/21/17 06:24 White Blood Count 5.73 K/uL Red Blood Count 4.31 M/uL Hemoglobin 12.7 g/dL Hematocrit 38.4 % Mean Corpuscular Volume 89.1 fL Mean Corpuscular Hemoglobin 29.5 pg Mean Corpuscular Hemoglobin Concent 33.1 g/dl Platelet Count 402 K/uL Mean Platelet Volume 8.1 fL Neutrophils (%) (Auto) 56.9 % Lymphocytes (%) (Auto) 25.3 % Monocytes (%) (Auto) 16.1 % Eosinophils (%) (Auto) 1.0 % Basophils (%) (Auto) 0.2 % Neutrophils # (Auto) 3.26 K/uL Lymphocytes # (Auto) 1.45 K/uL Monocytes # (Auto) 0.92 K/uL Eosinophils # (Auto) 0.06 K/uL Basophils # (Auto) 0.01 K/uL RDW Standard Deviation 48.9 fL RDW Coefficient of Variation 14.8 % Immature Granulocyte % (Auto) 0.5 % Immature Granulocyte # (Auto) 0.03 K/uL Sodium Level 129 mmol/L Potassium Level 5.0 mmol/L Chloride Level 93 mmol/L Carbon Dioxide Level 27 mmol/L Anion Gap 9.0 mmol/L Blood Urea Nitrogen 26 mg/dl Creatinine 1.40 mg/dl Est Creatinine Clear Calc Drug Dose 26.9 ml/min Estimated GFR () 43.4 Estimated GFR (Non- 37.4 BUN/Creatinine Ratio 18.7 Random Glucose 142 mg/dl Calcium Level 9.0 mg/dl Magnesium Level 2.6 mg/dl Total Bilirubin 0.4 mg/dl Aspartate Amino Transf (AST/SGOT) 23 U/L Alanine Aminotransferase (ALT/SGPT) 29 U/L Alkaline Phosphatase 70 U/L Total Protein 6.8 gm/dl Albumin 2.8 gm/dl Globulin 4.0 gm/dl Albumin/Globulin Ratio 0.7 Bedside Glucose 127 mg/dl 86 mg/dl Imaging: Chest x-ray shows the ICD position to be unremarkable, pins appear to be properly placed and the header. EKG: Sinus rhythm with atrial sensing and ventricular pacing throughout Telemetry reviewed: Atrial sensing with ventricular pacing throughout Assessment and Plan #1. Oversensing: The cause remains unclear, the pins appeared to be in the header, it is possible a set screw was not tightened or that there is lead issue. The device issue seems like a remote possibility as well. We will need to revise the system today, hopefully we can identify a cause and corrected easily. If it is lead issue will have to replace the lead. I discussed the indications, procedure, risks and alternatives with her and she understands and agrees to proceed. Consent obtained. #2. Hyponatremia: This is likely due to diuresis with an inadequate sodium replacement. I am going to give Ringers lactate today, that is for the surgical procedure, but we will replace it gingerly trying to avoid excessive fluid. #3. Renal insufficiency: Her creatinine and her BUN are both higher than recent admission, possibly due to overdiuresis. I'll see if these respond to valeria hydration.
[2017-03-21] MEDS ORDERED: MIDAZOLAM HCL 5 MG/ML 1 ML VIAL ONE (14:16)
[2017-03-21] MEDS ORDERED: FENTANYL CITRATE INJ 50 MCG/1 ML 2 ML VIAL ONE (14:17)
[2017-03-21] MEDS ORDERED: BACITRACIN 50000 UNIT VIAL ONE (14:28)
[2017-03-21] MEDS ORDERED: LIDOCAINE HCL 1% 20 ML VIAL ONE (14:28)
[2017-03-21] MEDS ORDERED: BACITRACIN OINT 0.9 GM PKT ONE (14:29)
--- NOTE | 2017-03-21 14:33 | Procedure Note ---
Pre-Mod Sedation Assessment General Date of Moderate Sedation: Mar 21, 2017. Vital Signs: Vital Signs Past 12 Hours Date Time Temp Pulse Resp B/P (MAP) Pulse Ox O2 Delivery O2 Flow Rate FiO2 03/21/17 12:09 36.5 75 17 105/50 (68) 91 Room Air 03/21/17 12:00 91 Room Air 03/21/17 11:27 75 16 93 Room Air 03/21/17 08:00 95 Room Air 03/21/17 07:46 36.3 67 18 118/55 (76) 95 Room Air 03/21/17 07:03 77 16 95 Room Air 03/21/17 04:00 93 Room Air 03/21/17 03:47 36.6 72 20 102/44 (63) 93 Room Air Review Cardiovascular: regular rate, rhythm Abdomen: normal bowel sounds Lungs: lungs clear Pre-Sedation Airway Assessment Oral Cavity: WNL Smoking Status: Former Smoker Procedure Planning Contraindications-for Mod Sed: None Yes Notes The planned sedation has been discussed with the patient and consent obtained. I have identified the patient, determined the appropriateness of sedation and have assessed the patient immediately prior to the procedure. All medicine(s) and interventions are by my order.
--- NOTE | 2017-03-21 16:00 | Procedure Note ---
Post-Mod Sedation Assessment General Date of Moderate Sedation Mar 21, 2017. Vital Signs: Vital Signs Past 12 Hours Date Time Temp Pulse Resp B/P (MAP) Pulse Ox O2 Delivery O2 Flow Rate FiO2 03/21/17 15:45 72 16 109/48 (68) 99 Room Air 03/21/17 15:35 72 16 107/48 (67) 99 Room Air 03/21/17 12:09 36.5 75 17 105/50 (68) 91 Room Air 03/21/17 12:00 91 Room Air 03/21/17 11:27 75 16 93 Room Air 03/21/17 08:00 95 Room Air 03/21/17 07:46 36.3 67 18 118/55 (76) 95 Room Air 03/21/17 07:03 77 16 95 Room Air Review - Discharge Criteria Vital Signs Stable: Yes Alert/Oriented/Conversant: Yes Returned to Baseline Mental St: Yes Nausea Absent/Minimal: Yes Pain/Discomfort/Absent/Minimal: Yes Normal/Baseline Respirations: Yes Active Bleeding?: No
--- NOTE | 2017-03-21 16:04 | Cardiology Procedure Brief Nt ---
Preliminary Cardiology Note Procedure Date Mar 21, 2017. Pre-Procedure Diagnosis ICD over sensing Post-Procedure Diagnosis RV and LV lead reversed and had her Procedure(s) Performed Correction of RV and LV lead configuration Home Performance Consultant Dr. Fernandes Production Mechanic Tin Cans(s) none Estimated Blood Loss 20 cc Preliminary Findings The RV bipolar and the LV bipolar reversed in the ICD header this presumably explains the anomaly although requires an additional external source of electromagnetic interference. Recommendations Monitor overnight Specimens None Anesthesia local with sedation Complication(s) None Disposition PCU
[2017-03-21] MEDS ORDERED: ACETAMINOPHEN 325 MG TAB PO PRN (16:15)
[2017-03-21] MEDS: CEFAZOLIN IV 1,000 MG in DEXTROSE 5% 50ML 50 ML IV SCH (17:43)
--- NOTE | 2017-03-21 18:55 | OPERATIVE REPORT ---
DATE OF OPERATION: 03/21/2017 PREOPERATIVE DIAGNOSIS: Implantable cardioverter-defibrillator oversensing. POSTOPERATIVE DIAGNOSIS: Left ventricular pace sense and right ventricular pace sense electrodes switched in the implantable cardioverter-defibrillator header. PROCEDURE. Correction of left ventricular and right ventricular pace sensed electrical configuration. SURGEON: Dilip Fernandes MD. ANESTHESIA: Local with sedation. HISTORY: This is a 71-year-old woman with a history of cardiomyopathy for which she had a [employer] biventricular ICD in place since 2011. She had her ICD replaced on 02/21/2017 with a new ICD generator. She has been having difficulty with syncope, some of this may be hypovolemia, however, she had one event captured by a device recordings which showed oversensing in her ICD system resulting in pacemaker inhibition, she is pacemaker dependent and that resulted in a pause. This was observed on evaluation in the office on 03/20/2017. She was therefore admitted, some programming changes were made to make the device less sensitive to sensing and the cause of it was not clear. She had no further episodes overnight on telemetry, and is therefore brought to the laboratory for evaluation. OPERATION AND FINDINGS: After obtaining informed consent for the procedure, she was brought to the laboratory on the afternoon of 03/21/2017 being n.p.o. after liquid breakfast. She was identified in the laboratory, prepped and draped in standard sterile manner for a left-sided ICD system evaluation. The area was anesthetized with 1% lidocaine local anesthetic and a 5 cm incision was made through the old implant scar and carried down to the ICD generator. The generator was dissected free of tissue and explanted. First all the lead, set screws were evaluated and everything appeared to be in order. Review of the leads themselves disclosed that the left ventricular paced sensed lead was placed in the right ventricular header port of the ICD, the right ventricular was in the left ventricular port. These were therefore reversed. This is likely the cause the oversensing in combination with an external source of electromagnetic interference. The device was placed back in the pocket and the incision was closed with a running double subcutaneous closure of 3-0 V-Loc absorbable suture followed by running subcuticular skin closure of 4-0 V-Loc absorbable suture. The patient tolerated the procedure well, there were no complications and estimated blood loss was 20 mL. The patient was transferred back to the telemetry unit for monitoring. [facility] HOSPITALRaghavendra
[2017-03-21] MEDS: PRAMIPEXOLE DIHYDROCHLORIDE 0.5 MG TAB PO SCH (21:26)
[2017-03-21] MEDS: KETOROLAC TROMETHAMINE 10 MG TAB PO PRN (23:18)
[2017-03-22] VITALS (12 sets, daily range): BP systolic 97–121; BP diastolic 40–60; PULSE 67–78; TEMP 36.5–36.7; O2SAT 94–99
[2017-03-22] MEDS: CEFAZOLIN IV 1,000 MG in DEXTROSE 5% 50ML 50 ML IV SCH ×2 (02:27→08:13)
[2017-03-22] MEDS ORDERED: CEFAZOLIN SOD 1000MG/55 ML D5W IV SCH (06:00)
[2017-03-22 06:30] LABS: CALCIUM 8.6 mg/dl (8.5-10.1); CREATININE 1.4 mg/dl (0.60-1.20)
[2017-03-22] MEDS: INSULIN ASPART 100 UNITS/ML 3 ML PEN SC SCH ×4 (07:00→20:40)
[2017-03-22] MEDS: IPRATROPIUM BROMIDE/ALBUTEROL respimat INH INH SCH ×4 (07:01→20:33)
[2017-03-22] MEDS ORDERED: ALBUT/IPRATROP 3MG/0.5MG NEB 3 ML VIAL INH PRN (07:30)
[2017-03-22] MEDS: FLUTICASONE/SALMETEROL (ADVAIR) 500/50 INH 14 PUFF INH SCH ×2 (08:05→20:33)
[2017-03-22] MEDS: TIOTROPIUM BROMIDE 5 PUFF/90 MCG INH INH SCH (08:06)
[2017-03-22] MEDS: KETOROLAC TROMETHAMINE 10 MG TAB PO PRN (08:07)
[2017-03-22] MEDS: POLYETHYLENE (MIRALAX) 17 GM PACK PO PRN (08:07)
[2017-03-22] MEDS: ASPIRIN 81 MG ECTAB PO SCH (08:08)
[2017-03-22] MEDS: CARVEDILOL 25 MG TAB PO SCH ×2 (08:08→20:34)
[2017-03-22] MEDS: ATORVASTATIN 40 MG TAB PO SCH (08:08)
[2017-03-22] MEDS: EZETIMIBE 10MG TAB PO SCH (08:09)
[2017-03-22] MEDS: SERTRALINE HCL 50 MG TAB PO SCH (08:09)
[2017-03-22] MEDS: CLOPIDOGREL BISULFATE 75 MG TAB PO SCH (08:09)
[2017-03-22] MEDS: FERROUS SULFATE 325 MG TAB PO SCH (08:09)
[2017-03-22] MEDS: MAGNESIUM CHLORIDE 64MG DELAYED REL TAB PO SCH ×2 (08:10→20:35)
[2017-03-22] MEDS: SPIRONOLACTONE 25 MG TAB PO SCH (08:10)
[2017-03-22] MEDS: FUROSEMIDE 40 MG TAB PO SCH (08:11)
[2017-03-22] MEDS: LISINOPRIL 40 MG TAB PO SCH (08:12)
[2017-03-22] MEDS: PANTOprazole SOD 40 MG TAB PO SCH (08:12)
[2017-03-22] MEDS: POTASSIUM CHLORIDE 10 MEQ TABCR PO SCH (08:29)
[2017-03-22] MEDS: ONDANSETRON INJ 2 MG/ML 2 ML VIAL IV PRN (10:16)
[2017-03-22] MEDS: SODIUM CHLORIDE 0.9% 500ML 500 ML IV SCH ×2 (10:16→12:38)
[2017-03-22] MEDS ORDERED: SODIUM POLYST. SULF SUSP 15G/60ML PO STA (11:52)
[2017-03-22] MEDS ORDERED: FENTANYL CITRATE INJ 50 MCG/1 ML 2 ML VIAL IV ONE (12:00)
[2017-03-22 12:37] LABS: BUN/CREATININE RATIO 18.3 (10-20); CALCIUM 8.2 mg/dl (8.5-10.1); CREATININE 1.2 mg/dl (0.60-1.20); POTASSIUM 5.1 mmol/L (3.5-5.1)
--- NOTE | 2017-03-22 13:24 | Medical Consult ---
Consultation Date of Consultation: Mar 22, 2017. Attending Physician: Dilip Fernandes M.D. History of Present Illness 71 y/o F systolic CHF, HTN, HPL, pacer/AICD - presented on 03/21 following a syncopal episode which was deemed due to pacer malfunction. She was evaluated by EPS and required a procedure to correct lead misplacement. She was then slated for DC however her AM labs revealed a K of 6.0 and she stated she felt generally ill with abdominal pain and a feeling of "impending doom". She is not specific regarding her symptoms. She denies ongoing CP or SOB. One day prior she had a single bout of diarrhea. On further questioning, the pt states that her abdominal pain has been present for over 2 months and was deemed due to chronic mesenteric ischemia at [facility]. She has an appt with a vascular surgeon in April as a result. Her K was repeated and was ultimately an erroneous lab as the repeat showed a K of 5.1. Her abdominal pain resolved following a BM. Despite the above, the pt has repeatedly stated that she does not want to leave the hospital. She does have some mild renal impairment as compared to baseline. Past Medical/Surgical History Medical Problems: (1) Acute asthma exacerbation Status: Acute (2) Acute bronchitis Status: Acute (3) Anemia Status: Acute (4) CHF (congestive heart failure) Status: Acute (5) CHF (congestive heart failure) Status: Acute (6) Elevated troponin Status: Acute (7) Hyponatremia Status: Acute (8) Hypoxia Status: Acute (9) Intractable nausea and vomiting Status: Acute (10) Mesenteric ischemia Status: Acute (11) Nausea Status: Acute (12) Pulmonary edema Status: Acute (13) Respiratory distress Status: Acute (14) SOB (shortness of breath) Status: Acute (15) Syncope Status: Acute Family History Diabetes mellitus FH: heart disease Hypertension Kidney disease Kidney stones Lung disease Social History Smoking Status: Former Smoker Drug Use: none Marital Status: Housing Status: lives with family Occupation Status: retired Allergies Coded Allergies: Sulfa Antibiotics (Verified Allergy, Intermediate, RASH, 03/12/17) Morphine (Verified Adverse Reaction, Severe, GI SYMPTOMS, 03/12/17) Current Inpatient Medications Current Inpatient Medications Medications (Trade) Dose Ordered Sig/Osmani Route Start Time Stop Time Status Last Admin Dose Admin Salmeterol Xinafoate/ Fluticasone (Advair Diskus 500/50 Inh) 1 puff BID INH 03/20/17 21:00 04/19/17 20:59 03/22/17 08:05 1 PUFF Atorvastatin Calcium (Lipitor Tab) 80 mg QAM PO 03/21/17 09:00 04/20/17 08:59 03/22/17 08:08 80 MG Aspirin (Ecotrin Tab) 81 mg QAM PO 03/21/17 09:00 04/20/17 08:59 03/22/17 08:08 81 MG Carvedilol (Coreg Tab) 25 mg BID PO 03/20/17 21:00 04/19/17 20:59 03/22/17 08:08 25 MG Clopidogrel Bisulfate (plAVix TAB) 75 mg QAM PO 03/21/17 09:00 04/20/17 08:59 03/22/17 08:09 75 MG EZETIMIBE (Zetia Tab) 10 mg QAM PO 03/21/17 09:00 04/20/17 08:59 03/22/17 08:09 10 MG Lisinopril (Zestril Tab) 40 mg QAM PO 03/21/17 09:00 04/20/17 08:59 Future Hold 03/22/17 08:12 40 MG Ferrous Sulfate (Feosol Tab) 325 mg QAM PO 03/21/17 09:00 04/20/17 08:59 03/22/17 08:09 325 MG Magnesium Chloride (Slow-Mag Tab) 64 mg BID PO 03/20/17 21:00 04/19/17 20:59 03/22/17 08:10 64 MG Pantoprazole Sodium (Protonix Tab) 40 mg QAM PO 03/21/17 09:00 04/20/17 08:59 03/22/17 08:12 40 MG Sertraline HCl (Zoloft Tab) 50 mg QAM PO 03/21/17 09:00 04/20/17 08:59 03/22/17 08:09 50 MG Pramipexole Dihydrochloride (miraPEX TAB) 0.5 mg HS PO 03/20/17 21:00 04/19/17 20:59 03/21/17 21:26 0.5 MG Tiotropium [place] (Spiriva Handihaler Inhaler) 1 puff QAM INH 03/21/17 09:00 04/20/17 08:59 03/22/17 08:06 1 PUFF Albuterol (Ventolin Hfa Inhaler) 2 puffs Q4H PRN INH 03/20/17 20:00 04/19/17 19:59 Polyethylene (Miralax Powder Packet) 17 gm DAILY PRN PO 03/20/17 17:00 04/19/17 16:59 03/22/17 08:07 17 GM Alprazolam (Xanax Tab) 0.25 mg Q6H PRN PO 03/20/17 17:00 04/19/17 16:59 03/21/17 23:18 0.25 MG Insulin Aspart (novoLOG ASPART) SLIDING SCALE G... ACHS SC 03/20/17 21:00 04/19/17 20:59 03/22/17 07:00 2 UNITS Acetaminophen (Tylenol Tab) 650 mg Q4H PRN PO 03/20/17 17:00 04/19/17 16:59 03/20/17 20:33 650 MG Furosemide (Lasix Tab) 40 mg QAM PO 03/21/17 09:00 04/20/17 08:59 03/22/17 08:11 40 MG Glucose (Glucose 40% Gel) 15-30 GRAMS 15 GRAMS... UD PRN PO 03/20/17 17:30 04/19/17 17:29 Glucose (Glucose Chew Tab) 4-8 Tablets 4 Tabl... UD PRN PO 03/20/17 17:30 04/19/17 17:29 Dextrose (Dextrose 50% 50ML Syringe) 25-50ML OF 50% DW IV FOR... UD PRN IV 03/20/17 17:30 04/19/17 17:29 Glucagon (Glucagon Inj) 1 mg UD PRN SQ 03/20/17 17:30 04/19/17 17:29 Ondansetron HCl (Zofran Inj) 4 mg Q6H PRN IV 03/21/17 10:00 04/20/17 09:59 03/22/17 10:16 4 MG Cefazolin Sodium 1000 mg/Dextrose 55 ml @ 100 mls/hr Q8@0200,1000,1800 IV 03/21/17 18:00 03/22/17 17:59 03/22/17 08:13 100 MLS/HR Acetaminophen (Tylenol Tab) 650 mg Q4H PRN PO 03/21/17 16:15 04/20/17 16:14 Ketorolac Tromethamine (Toradol Tab) 10 mg Q6H PRN PO 03/21/17 16:15 03/26/17 16:14 03/22/17 08:07 10 MG Albuterol/ Ipratropium (Combivent Respimat Inh) 1 puffs QID INH 03/22/17 13:00 04/21/17 12:59 03/22/17 12:49 1 PUFFS Albuterol/ Ipratropium (Duoneb) 3 ml QIDR PRN INH 03/22/17 07:30 04/21/17 07:29 Sodium Chloride 500 ml @ 125 mls/hr Q4H IV 03/22/17 09:45 03/22/17 13:45 03/22/17 12:38 125 MLS/HR Review of Systems Constitutional: No fever, No chills, No sweats Eyes: No worsening of vision, No eye pain ENT: No hearing loss, No unusual epistaxis, No nasal symptoms Respiratory: No cough, No sputum, No wheezing Cardiovascular: No chest pain, No orthopnea, No PND Abdomen: No pain, No nausea, No vomiting Musculoskeletal: No joint pain Genitourinary - Female: No dysuria, No urinary frequency, No urinary urgency Neurologic: No memory loss, No paralysis, No weakness Psychiatric: + anxiety Endocrine: No fatigue Hematologic / Lymphatic: No abnormal bleeding/bruising Integumentary: No rash Allergic / Immunologic: No environmental allergies, No seasonal allergies, No pet sensitivities Physical Exam Date Time Temp Pulse Resp B/P (MAP) Pulse Ox O2 Delivery O2 Flow Rate FiO2 03/22/17 11:51 36.6 67 19 97/40 (59) 96 Nasal Cannula 2.0 03/22/17 07:52 36.5 78 18 116/60 (78) 96 Nasal Cannula 2.0 03/22/17 07:01 78 16 98 Nasal Cannula 2.0 03/22/17 04:00 98 Nasal Cannula 2.0 03/22/17 03:59 36.5 77 20 107/50 (69) 98 Nasal Cannula 2.0 03/22/17 00:00 95 Nasal Cannula 2.0 03/22/17 00:00 77 121/47 (71) 95 Nasal Cannula 2.0 03/21/17 21:35 80 99/47 (64) 03/21/17 20:00 97 Nasal Cannula 2.0 03/21/17 19:10 69 16 97 Nasal Cannula 2.0 03/21/17 19:04 71 18 91/40 (57) 94 Nasal Cannula 2.0 03/21/17 18:12 69 16 109/45 (66) 92 Nasal Cannula 2.0 03/21/17 17:35 72 18 113/46 (68) 95 Nasal Cannula 2.0 03/21/17 17:06 72 109/43 (65) 03/21/17 16:30 73 16 105/55 (72) 96 Nasal Cannula 2.0 03/21/17 16:00 98 Nasal Cannula 2.0 03/21/17 16:00 36.7 70 16 119/49 (72) 89 Room Air 03/21/17 15:45 72 16 109/48 (68) 99 Room Air 03/21/17 15:35 72 16 107/48 (67) 99 Room Air General Appearance: WD/WN, no apparent distress Head: normocephalic, atraumatic Eyes: normal inspection ENT: normal ENT inspection Neck: supple Respiratory/Chest: chest non-tender, lungs clear, normal breath sounds, no respiratory distress Cardiovascular: regular rate, rhythm, no edema, no gallop Abdomen/GI: normal bowel sounds, non tender, soft Back: normal inspection, no CVA tenderness, no muscle spasm, normal range of motion Extremities/Musculoskelatal: normal inspection, normal range of motion Neurologic/Psych: physical therapy director II-XII nml as tested, no motor/sensory deficits, alert, normal mood/affect Skin: normal color, warm/dry Laboratory Results Last 24 Hours Test 03/21/17 16:18 03/21/17 20:25 03/22/17 01:19 03/22/17 05:34 Bedside Glucose 104 mg/dl 155 mg/dl 111 mg/dl Sodium Level 131 mmol/L Potassium Level 6.0 mmol/L Chloride Level 96 mmol/L Carbon Dioxide Level 26 mmol/L Anion Gap 9.0 mmol/L Blood Urea Nitrogen 24 mg/dl Creatinine 1.40 mg/dl Est Creatinine Clear Calc Drug Dose 27.0 ml/min Estimated GFR () 43.4 Estimated GFR (Non- 37.4 BUN/Creatinine Ratio 17.0 Random Glucose 88 mg/dl Calcium Level 8.6 mg/dl Test 03/22/17 06:34 03/22/17 11:15 03/22/17 11:57 Bedside Glucose 99 mg/dl 118 mg/dl Stool Occult Blood NEGATIVE Sodium Level 127 mmol/L Potassium Level 5.1 mmol/L Chloride Level 94 mmol/L Carbon Dioxide Level 25 mmol/L Anion Gap 8.0 mmol/L Blood Urea Nitrogen 22 mg/dl Creatinine 1.20 mg/dl Est Creatinine Clear Calc Drug Dose 31.4 ml/min Estimated GFR () 52.3 Estimated GFR (Non- 45.1 BUN/Creatinine Ratio 18.3 Random Glucose 118 mg/dl Calcium Level 8.2 mg/dl Assessment & Plan 71 y/o F systolic CHF, HTN, HPL, pacer/AICD - presented on 03/21 following a syncopal episode which was deemed due to pacer malfunction. She was evaluated by EPS and required a procedure to correct lead misplacement. She was then slated for DC however her AM labs revealed a K of 6.0 and she stated she felt generally ill with abdominal pain and a feeling of "impending doom". She is not specific regarding her symptoms. She denies ongoing CP or SOB. One day prior she had a single bout of diarrhea. On further questioning, the pt states that her abdominal pain has been present for over 2 months and was deemed due to chronic mesenteric ischemia at [facility]. She has an appt with a vascular surgeon in April as a result. Her K was repeated and was ultimately an erroneous lab as the repeat showed a K of 5.1. Her abdominal pain resolved following a BM. Despite the above, the pt has repeatedly stated that she does not want to leave the hospital. She does have some mild renal impairment as compared to baseline. 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
--- NOTE | 2017-03-22 13:25 | DIAGNOSTIC IMAGING REPORT ---
KUB CLINICAL HISTORY: abdominal pain nausea COMPARISON STUDY: 03/15/2017 FINDINGS: Nonobstructive bowel pattern. Degenerative changes of the lumbar spine. Calcification overlying the left mid sacrum possibly related to bowel or gastric content. IMPRESSION: Nonobstructive bowel pattern. Electronically signed by: César Muñoz M.D. 03/22/2017 1:24 PM Dictated Date/Time: 03/22/2017 1:23 PM
--- NOTE | 2017-03-22 14:06 | CARDIOLOGY PROGRESS NOTE ---
DATE: 03/22/2017 TIME: 12:33 p.m. SUBJECTIVE: Ms. Jameson is admitted on Dr. Fernandes's service following an ICD procedure where he performed a correction of the left ventricular and right ventricular pace sensed electrical configuration on 03/21/2017. There was some oozing at the pacer site overnight which Dr. Fernandes evaluated earlier this morning. I was called acutely by nursing staff stating that the patient had a feeling of "impending doom." She had nausea and abdominal pain. She was recently hospitalized in February 2017 and life flighted to [facility] with hypotension, leukocytosis and GI symptoms similar to the symptoms that she is currently experiencing. There was concern for mesenteric ischemia. According to records, there was concern that she was dehydrated at that time and hypotensive and therefore lisinopril 40 mg, amlodipine 7.5 mg, and Lasix 40 mg were discontinued. There was apparently also bloody stools while there. After apparently being hydrated, on the drive home she became short of breath and was readmitted locally for acute on chronic systolic CHF. She apparently developed these symptoms after Dr. Fernandes was in earlier this morning. She does not feel short of breath. She denies angina but does have this abdominal discomfort. She did have a small amount of diarrhea which has been sent by nursing staff for testing. Her stool was heme negative. Nursing staff states that they also sent for C. diff evaluation which is currently pending. She was given Zofran by nursing staff earlier today and her nausea did not significantly improve. She received Toradol for pain earlier today which helped with her symptoms, but her pain has returned. REVIEW OF SYSTEMS: As above and also denies syncope, palpitations, orthopnea. OBJECTIVE: VITAL SIGNS: Temperature 36.6 degrees, heart rate 67 beats per minute, respiration rate 19, blood pressure 97/40 mmHg, oxygen saturation 96% on 2 liters per nasal cannula. I's and O's negative 600 mL yesterday, weight 47 kg. GENERAL: She is in no acute distress. NECK: No JVD. CARDIAC EXAM: No ventricular heave. Regular, normal S1, S2. No audible murmurs, rubs or gallops. LUNGS: Decreased breath sounds throughout. ABDOMEN: Soft and mildly tender upon palpation. No rebound tenderness. Nondistended. Hypoactive bowel sounds. EXTREMITIES: No cyanosis or pitting edema. PSYCHIATRIC: Affect appears appropriate. MEDICATIONS: Include aspirin 81 mg daily, Lipitor 80 mg daily, carvedilol 25 mg p.o. b.i.d., Plavix 75 mg daily, Zetia 10 mg daily, cefazolin 1 gram IV q. 8 hours, Lasix 40 mg p.o. daily, ferrous sulfate 325 mg daily, Toradol 10 mg p.o. q. 6 hours as needed, lisinopril 40 mg daily, magnesium oxide 64 mg p.o. b.i.d., Protonix 40 mg daily, potassium chloride was discontinued this morning, her last dose was last evening; spironolactone 25 mg daily, sertraline 50 mg daily, normal saline 125 mL per hour for 500 mL. LABORATORY DATA: This morning at 5:34 a.m. sodium was 131, potassium 6, BUN 24, creatinine 1.4. Telemetry personally reviewed. Ventricular pacing was noted. No ventricular arrhythmia. ASSESSMENT AND PLAN: 1. Abdominal discomfort with nausea: Etiology uncertain. There was concern in the past for mesenteric ischemia. She was mildly hypotensive intermittently today. For this reason lisinopril will be discontinued altogether for now. Her normal saline will be increased to 200 mL per hour for the duration of her bolus ordered earlier today by Dr. Fernandes. KUB was ordered. 2. Hyperkalemia: Stat basic metabolic panel ordered. At the time of this note, the results are now available. The sodium was 127, potassium was 5.1, BUN 22 and creatinine 1.2. Spironolactone was discontinued. Lisinopril held. Potassium chloride was already discontinued by Dr. Fernandes. Kayexalate was ordered prior to the repeat labs being resulted. 3. Hyponatremia: She appears to be chronically hyponatremic; however, today's value is a bit lower than usual. She did receive lactated Ringer's's yesterday. She is receiving normal saline currently. Continue to monitor. Further workup as per hospitalist service. 4. Cardiomyopathy: Continue carvedilol. Lisinopril is being held for now due to hyperkalemia and also weepy hypotension with her abdominal complaints as noted above with a prior concern of mesenteric ischemia. She has a biventricular ICD in place as managed by Dr. Fernandes. 5. Coronary artery disease: Prior cardiac catheterization in 1999 demonstrated nonobstructive coronary artery disease except for a 99% stenosis within the circumflex, which was unable to be intervened upon. The lesion could not be crossed. She is not presenting with angina. Continue antiplatelet therapy as well as high intensity statin therapy and beta-dane therapy. 6. Biventricular ICD: Care as per Dr. Fernandes. 7. Disposition: Dr. Fernandes was contacted regarding today's events. Dr. Estevez of the hospitalist service was contacted as well for consultation and he has agreed to transfer Ms. Jameson to the hospitalist service for her other noncardiac concerns while Dr. Fernandes will continue to follow along for her ICD status post procedure earlier this hospitalization. ADDENDUM: Nursing staff notified me later that day that family was upset and mentioned transfer to other facility. I went to visit with family but Dr. Mejia was in the room for pulmonary consult. Dr. Fernandes was notified of nursing concerns/ message. He came to the hospital to meet with pt and family. VITOR
[2017-03-22 14:35] LABS: BUN/CREATININE RATIO 17.7 (10-20); CREATININE 1.2 mg/dl (0.60-1.20); POTASSIUM 4.9 mmol/L (3.5-5.1)
--- NOTE | 2017-03-22 16:52 | Cardiology Follow-Up ---
Subjective Date of Service: Mar 22, 2017. Pt evaluation today including: conversation w/ patient, conversation w/ family , physical exam, lab review, review of studies, review of inpatient medication list History of Present Illness Events of today reviewed. I had seen her this AM and she was feeling better, then had further nausea and abdominal pain which has now resolved. From CV standpoint feels well. No SOB today. Had some incisional bleeding last PM, pressure held by nursing and no further bleeding since. Social History Smoking Status: Former Smoker History of Alcohol Use: Yes (social) Medications Cardiovascular: Item Value Date Time Atorvastatin 80 mg 03/21/17 0900 Calcium QAM/PO 03/22/17 0808 (Lipitor Tab) Aspirin 81 mg 03/21/17 0900 (Ecotrin Tab) QAM/PO 03/22/17 0808 Clopidogrel 75 mg 03/21/17 0900 Bisulfate QAM/PO 03/22/17 0809 (plAVix TAB) EZETIMIBE 10 mg 03/21/17 0900 (Zetia Tab) QAM/PO 03/22/17 0809 Furosemide 40 mg 03/21/17 0900 (Lasix Tab) QAM/PO 03/22/17 0811 Carvedilol 25 mg 03/20/17 2100 (Coreg Tab) BID/PO 03/22/17 0808 Magnesium Chloride 64 mg 03/20/17 2100 (Slow-Mag Tab) BID/PO 03/22/17 0810 Objective Vital Signs Past 12 Hours Date Time Temp Pulse Resp B/P (MAP) Pulse Ox O2 Delivery O2 Flow Rate FiO2 03/22/17 16:00 96 Nasal Cannula 2.0 03/22/17 15:36 36.7 78 20 104/42 (62) 99 Nasal Cannula 2.0 03/22/17 12:00 97 Nasal Cannula 2.0 03/22/17 11:51 36.6 67 19 97/40 (59) 96 Nasal Cannula 2.0 03/22/17 08:00 96 Nasal Cannula 03/22/17 07:52 36.5 78 18 116/60 (78) 96 Nasal Cannula 2.0 03/22/17 07:01 78 16 98 Nasal Cannula 2.0 Last Recorded Weight-Kilograms: 47.000 Intake & Output 8-Hour Column 03/22/17 03/23/17 03/23/17 16:00 00:00 08:00 Intake Total 420 ml Output Total 400 ml Balance 20 ml 24-Hour Column 03/23/17 08:00 Intake Total 420 ml Output Total 400 ml Balance 20 ml Physical Exam Constitutional: Level of Distress: NAD Lungs: Auscultation: breath sounds normal Cardiovascular: Heart Auscultation: RRR Extremities: no edema Incision clean and dry, no hematoma or bleeding today Data Laboratory Results: Last 24 Hours Test 03/21/17 20:25 03/22/17 01:19 03/22/17 05:34 03/22/17 06:34 Bedside Glucose 155 mg/dl 111 mg/dl 99 mg/dl Sodium Level 131 mmol/L Potassium Level 6.0 mmol/L Chloride Level 96 mmol/L Carbon Dioxide Level 26 mmol/L Anion Gap 9.0 mmol/L Blood Urea Nitrogen 24 mg/dl Creatinine 1.40 mg/dl Est Creatinine Clear Calc Drug Dose 27.0 ml/min Estimated GFR () 43.4 Estimated GFR (Non- 37.4 BUN/Creatinine Ratio 17.0 Random Glucose 88 mg/dl Calcium Level 8.6 mg/dl Test 03/22/17 11:15 03/22/17 11:57 03/22/17 14:00 03/22/17 16:19 Stool Occult Blood NEGATIVE Bedside Glucose 118 mg/dl 127 mg/dl Sodium Level 127 mmol/L 129 mmol/L Potassium Level 5.1 mmol/L 4.9 mmol/L Chloride Level 94 mmol/L 94 mmol/L Carbon Dioxide Level 25 mmol/L 25 mmol/L Anion Gap 8.0 mmol/L 10.0 mmol/L Blood Urea Nitrogen 22 mg/dl 21 mg/dl Creatinine 1.20 mg/dl 1.20 mg/dl Est Creatinine Clear Calc Drug Dose 31.4 ml/min 31.4 ml/min Estimated GFR () 52.3 52.3 Estimated GFR (Non- 45.1 45.1 BUN/Creatinine Ratio 18.3 17.7 Random Glucose 118 mg/dl 126 mg/dl Calcium Level 8.2 mg/dl Telemetry reviewed: Normal ICD function Assessment and Plan #1. Oversensing: The complete explanation is a little unclear, has to do with LV and RV lead switched in header, however both were bipolar so that would not make much difference except the LV lead has a wider dipole so may be a little more sensitive to HAILEE. There is evidence of HAILEE on the tracing, it turns out she probably uses an electric blanket throw. I suspect she had HAILEE from that, coupled with a more sensitive configuration causing the inhibition. In addition we have reduced programmed sensitivity. I suspect this will not happen again. #2. Hyponatremia: This is likely due to diuresis with an inadequate sodium replacement. I am going to relax her Na restriction. #3. Renal insufficiency: Her creatinine and her BUN have improved with mild rehydration. #4. Abdominal discomfort and nausea: Suspect this is bowel ischemia. Will ask GI to evaluate, not sure what we need to do diagnostically or if there is a surgical option.
--- NOTE | 2017-03-22 17:09 | PULMONARY CONSULTATION ---
DATE OF CONSULTATION: 03/22/2017 TIME: 3:20 p.m. REPORT OF CONSULTATION: The patient was seen in room 205. She is a 71-year-old female who came to the hospital yesterday. The prior day she had somewhat of a syncopal episode. She was brought in to evaluate her AICD. She underwent a procedure to rectify the problem. Consultation is requested regarding her respiratory status. The patient has a history of COPD. She has had some breathing issues for many years. She smoked about 3/4 pack per day for 55 years. She states that her cough has been a little more than normal for the past 2 days. The cough is dry and nonproductive. She has not coughed up any blood. She thinks her breathing is fairly good. She feels as good or better than normal. She is not aware of wheezing. She does have shortness of breath with exertion. The patient has had a nebulizer at home. She also has Advair which she takes 500/50 one puff b.i.d. She also was on Combivent 1 puff q.i.d. via the Respimat. She has had problems with recurring episodes of oral candidiasis. I had previously seen patient on a consultation back on 02/16/2017. At that time she had bibasilar infiltrates that were felt to be secondary to aspiration. She was having a lot of vomiting at that time. She states that she goes to [facility] for some vascular complications. She has apparently significant narrowing of the circulatory supply to the intestines. They are perhaps contemplating doing some sort of stents or other procedure next month. She has had some recurrent right-sided abdominal pain, it is not clear what that is from. She has had some diarrhea and some constipation. Apparently, she has been back and forth out of the Emergency Room a few times. At some point, she was diagnosed with mesenteric ischemia. The good news is that patient has quit smoking. She states she has not had any cigarettes for several weeks. She does have a history of COPD as mentioned. She actually last had a PFT per our records on 01/19/2009. PAST SURGICAL HISTORY: 1. Left carotid endarterectomy. 2. AICD insertion. 3. Carpal tunnel. 4. Total abdominal hysterectomy. 5. Cataract surgery. PAST MEDICAL HISTORY: 1. Dilated ischemic cardiomyopathy. 2. Aortic stenosis, [id number]. 3. MR - severe. 4. Coronary artery disease. 5. ME in 2000. 6. Hypertension. 7. Hyperlipidemia. 8. Carotid artery disease. 9. Peripheral arterial disease. 10. CHF. 11. Aspiration pneumonia. FAMILY HISTORY: Positive for heart disease in both of her parents. There is also a family history of diabetes and renal problems. ALLERGIES: SULFA. REVIEW OF SYSTEMS: Negative except for the above-mentioned complaints. Ten systems were reviewed. PHYSICAL EXAMINATION: GENERAL: The patient is a 71-year-old female who was cooperative, alert and oriented. She was in no distress. VITAL SIGNS: Temperature was 36.6. Weight is 47 kilograms. BMI is 18.9. HEENT: Eye exam showed implants bilaterally. Nares were clear. Mouth exam was negative. NECK: Palpation of the neck reveals no lymph nodes. CARDIOVASCULAR: Heart rate was 67 per minute. Blood pressure was 97/40. LUNGS: Respiratory rate was 20 breaths per minute. The breath sounds were diffusely diminished. No active wheezes, rales or rhonchi were heard. ABDOMEN: Soft. There was a scar from prior surgery. Bowel sounds were present. There was no tenderness to palpation noted. EXTREMITIES: Showed no cyanosis, clubbing or edema. The patient had a chest x-ray done that showed minimal residual interstitial edema. There was near complete resolution of previously seen small bilateral pleural effusions. Abdominal film done on the date of this exam showed a nonobstructive bowel pattern. LABORATORY DATA: White count was 5.73. Hemoglobin 12.7. Platelets 402,000. Stool for blood was negative. Electrolytes show sodium 129, potassium 4.9, chloride 94, bicarbonate 25. The BUN was 21 with a creatinine of 1.2. It is notable that earlier this morning her potassium was 6. IMPRESSION: 1. Chronic obstructive pulmonary disease - seemingly stable. 2. Resolution of previously seen bilateral lung infiltrates, likely secondary to pneumonia. 3. Possible pulmonary hypertension. 4. Oral candidiasis - noted on exam today. RECOMMENDATIONS AND COMMENTS: The patient's respiratory status seems relatively stable. She has had recurring oral candidiasis as a result of taking Advair Diskus. She feels the Advair helps her breathing. I mentioned to her the alternative would be to change her to an Advair metered dose inhaler 230/21 to be taken 2 puffs b.i.d. This could be used with a spacer device. She already has a spacer at home. I would suggest making that change in her status. She should continue with the Combivent Respimat. She can use the nebulizer as need be, but she really has not needed it much. Ideally, I think when things are stable, she should have pulmonary functions repeated. This could be ordered through her family physician. Thank you for asking me to assist in her care.
[2017-03-22 18:45] LABS: CALCIUM 8.6 mg/dl (8.5-10.1)
[2017-03-22] MEDS: NYSTATIN SUSP 500,000 U/5 ML UDC PO SCH ×2 (18:48→20:34)
[2017-03-22] MEDS: PRAMIPEXOLE DIHYDROCHLORIDE 0.5 MG TAB PO SCH (20:36)
[2017-03-23] VITALS (12 sets, daily range): BP systolic 90–120; BP diastolic 45–57; PULSE 71–85; TEMP 36.3–36.7; O2SAT 93–97
[2017-03-23 05:38] LABS: HEMATOCRIT 33.2 % (37-47); MEAN CELL VOLUME 89.5 fL (80-100); MEAN CORPUSCULAR HEMOGLOBIN 31.5 pg (25-34); MEAN CORPUSCULAR HGB CONC 35.2 g/dl (32-36); MEAN PLATELET VOLUME 8.5 fL (7.4-10.4); PLATELET COUNT 267 K/uL (130-400); RED BLOOD COUNT 3.71 M/uL (4.2-5.4); WHITE BLOOD COUNT 7.47 K/uL (4.8-10.8)
[2017-03-23 06:06] LABS: BUN/CREATININE RATIO 17.2 (10-20); CALCIUM 8.4 mg/dl (8.5-10.1); PHOSPHORUS 3.2 mg/dl (2.5-4.9); POTASSIUM 4.9 mmol/L (3.5-5.1)
[2017-03-23] MEDS: INSULIN ASPART 100 UNITS/ML 3 ML PEN SC SCH ×4 (08:24→21:00)
[2017-03-23] MEDS: FLUTICASONE/SALMETEROL (ADVAIR) 500/50 INH 14 PUFF INH SCH ×2 (08:28→21:03)
[2017-03-23] MEDS: IPRATROPIUM BROMIDE/ALBUTEROL respimat INH INH SCH ×4 (08:28→21:03)
[2017-03-23] MEDS: PANTOprazole SOD 40 MG TAB PO SCH (08:29)
[2017-03-23] MEDS: TIOTROPIUM BROMIDE 5 PUFF/90 MCG INH INH SCH (08:29)
[2017-03-23] MEDS: FERROUS SULFATE 325 MG TAB PO SCH (08:30)
[2017-03-23] MEDS: EZETIMIBE 10MG TAB PO SCH (08:30)
[2017-03-23] MEDS: CLOPIDOGREL BISULFATE 75 MG TAB PO SCH (08:30)
[2017-03-23] MEDS: ATORVASTATIN 40 MG TAB PO SCH (08:30)
[2017-03-23] MEDS: ASPIRIN 81 MG ECTAB PO SCH (08:30)
[2017-03-23] MEDS: SERTRALINE HCL 50 MG TAB PO SCH (08:30)
[2017-03-23] MEDS: FUROSEMIDE 40 MG TAB PO SCH (08:31)
[2017-03-23] MEDS: MAGNESIUM CHLORIDE 64MG DELAYED REL TAB PO SCH ×2 (08:31→21:05)
[2017-03-23] MEDS: NYSTATIN SUSP 500,000 U/5 ML UDC PO SCH ×4 (08:31→21:04)
[2017-03-23] MEDS: CARVEDILOL 25 MG TAB PO SCH ×2 (08:32→21:05)
[2017-03-23] MEDS: POLYETHYLENE (MIRALAX) 17 GM PACK PO PRN (08:41)
--- NOTE | 2017-03-23 08:45 | Cardiology Follow-Up ---
Subjective Date of Service: Mar 23, 2017. Pt evaluation today including: conversation w/ patient, physical exam, lab review, review of studies, review of inpatient medication list History of Present Illness Feeling well today, no further GI issues. No incisional discomfort or lightheadedness. Social History Smoking Status: Former Smoker History of Alcohol Use: Yes (social) Review of Systems Respiratory: No shortness of breath Cardiac: No chest pain Medications Cardiovascular: Item Value Date Time Lisinopril 10 mg 03/23/17 0900 (Zestril Tab) QAM/PO Atorvastatin 80 mg 03/21/17 0900 Calcium QAM/PO 03/23/17 0830 (Lipitor Tab) Aspirin 81 mg 03/21/17 0900 (Ecotrin Tab) QAM/PO 03/23/17 0830 Clopidogrel 75 mg 03/21/17 0900 Bisulfate QAM/PO 03/23/17 0830 (plAVix TAB) EZETIMIBE 10 mg 03/21/17 0900 (Zetia Tab) QAM/PO 03/23/17 0830 Furosemide 40 mg 03/21/17 0900 (Lasix Tab) QAM/PO 03/23/17 0831 Carvedilol 25 mg 03/20/17 2100 (Coreg Tab) BID/PO 03/23/17 0832 Magnesium Chloride 64 mg 03/20/17 2100 (Slow-Mag Tab) BID/PO 03/23/17 0831 Objective Vital Signs Past 12 Hours Date Time Temp Pulse Resp B/P (MAP) Pulse Ox O2 Delivery O2 Flow Rate FiO2 03/23/17 07:57 36.6 85 18 118/47 (70) 95 Room Air 03/23/17 04:00 94 Room Air 03/23/17 03:55 36.7 83 18 97/48 (64) 94 Room Air 03/23/17 00:10 36.7 79 18 120/53 (75) 94 Room Air 03/23/17 00:00 94 Room Air Last Recorded Weight-Kilograms: 47.100 Physical Exam Constitutional: Level of Distress: NAD Lungs: Auscultation: breath sounds normal Cardiovascular: Heart Auscultation: RRR Extremities: no edema Incision clean and dry, no hematoma or bleeding today Data Laboratory Results: Last 24 Hours Test 03/22/17 11:15 03/22/17 11:57 03/22/17 14:00 03/22/17 16:19 Stool Occult Blood NEGATIVE Bedside Glucose 118 mg/dl 127 mg/dl Sodium Level 127 mmol/L 129 mmol/L Potassium Level 5.1 mmol/L 4.9 mmol/L Chloride Level 94 mmol/L 94 mmol/L Carbon Dioxide Level 25 mmol/L 25 mmol/L Anion Gap 8.0 mmol/L 10.0 mmol/L Blood Urea Nitrogen 22 mg/dl 21 mg/dl Creatinine 1.20 mg/dl 1.20 mg/dl Est Creatinine Clear Calc Drug Dose 31.4 ml/min 31.4 ml/min Estimated GFR () 52.3 52.3 Estimated GFR (Non- 45.1 45.1 BUN/Creatinine Ratio 18.3 17.7 Random Glucose 118 mg/dl 126 mg/dl Calcium Level 8.2 mg/dl 8.6 mg/dl Test 03/22/17 20:04 03/23/17 05:09 03/23/17 06:36 Bedside Glucose 126 mg/dl 107 mg/dl White Blood Count 7.47 K/uL Red Blood Count 3.71 M/uL Hemoglobin 11.7 g/dL Hematocrit 33.2 % Mean Corpuscular Volume 89.5 fL Mean Corpuscular Hemoglobin 31.5 pg Mean Corpuscular Hemoglobin Concent 35.2 g/dl RDW Standard Deviation 48.5 fL RDW Coefficient of Variation 14.8 % Platelet Count 267 K/uL Mean Platelet Volume 8.5 fL Sodium Level 129 mmol/L Potassium Level 4.9 mmol/L Chloride Level 94 mmol/L Carbon Dioxide Level 29 mmol/L Anion Gap 6.0 mmol/L Blood Urea Nitrogen 17 mg/dl Creatinine 1.00 mg/dl Est Creatinine Clear Calc Drug Dose 37.8 ml/min Estimated GFR () 65.2 Estimated GFR (Non- 56.2 BUN/Creatinine Ratio 17.2 Random Glucose 91 mg/dl Calcium Level 8.4 mg/dl Phosphorus Level 3.2 mg/dl Magnesium Level 2.0 mg/dl Telemetry reviewed: Normal pacer operation Assessment and Plan #1. Oversensing: The complete explanation is a little unclear, has to do with LV and RV lead switched in header, however both were bipolar so that would not make much difference except the LV lead has a wider dipole so may be a little more sensitive to HAILEE. There is evidence of HAILEE on the tracing, it turns out she probably uses an electric blanket throw. I suspect she had HAILEE from that, coupled with a more sensitive configuration causing the inhibition. In addition we have reduced programmed sensitivity. I suspect this will not happen again. #2. Hyponatremia: This is likely due to diuresis with an inadequate sodium replacement. I did relax her Na restriction. No change today. I am reluctant to give any more saline. #3. Hyperkalemia: Resolved. Will restart spironolactone #4. Renal insufficiency: Her creatinine and her BUN have improved with mild rehydration. #5. Abdominal discomfort and nausea: Suspect this is bowel ischemia. Have asked GI to evaluate, not sure what we need to do diagnostically or if there is a surgical option.
[2017-03-23] MEDS: SPIRONOLACTONE 25 MG TAB PO SCH (09:57)
[2017-03-23] MEDS: LISINOPRIL 10 MG TAB PO SCH (09:58)
--- NOTE | 2017-03-23 10:01 | PULMONARY PROGRESS NOTE ---
DATE: 03/23/2017 TIME: 09:25 a.m. SUBJECTIVE: The patient is not complaining of any shortness of breath. She has an occasional cough without any significant sputum. Overall, she is feeling comfortable and not having any specific complaints. She is awaiting a GI evaluation today. She is receiving the oral candidiasis medication, denies statin. Her throat is not bothering her today. She is rinsing after each dose of Advair. OBJECTIVE: GENERAL: The patient appears comfortable at rest. VITAL SIGNS: Temperature is 36.6. ENT: Exam is unremarkable and unchanged from yesterday. HEART: Heart rate is 74 per minute and regular. Blood pressure is 118/47. LUNGS: [place] were clear bilaterally. No wheezes, rales or rhonchi were heard. Saturation was 95% on room air. Respiratory rate was 18 per minute. EXTREMITIES: Showed no cyanosis, clubbing or edema. IMPRESSIONS: 1. Chronic obstructive pulmonary disease. 2. Oral candidiasis. COMMENTS: I discussed the case with Dr. Fernandes. I discussed the situation with the patient. She is respiratory kimbrough stable. I explained to her, she ideally should have pulmonary functions as an outpatient. If doctor Perla wishes that I see her, I would be happy to do that. We will otherwise continue with her current care. Consideration is given to changing the Advair to a metered dose inhaler to be used with a spacer as had been recommended it in the consult. VITOR
[2017-03-23] MEDS: ALPRAZOLAM 0.25 MG TAB PO PRN (10:02)
[2017-03-23] MEDS ORDERED: OXYCODONE HCL IR 5 MG TAB (IMMEDIATE RELEASE) PO STA (10:42)
[2017-03-23] MEDS: ONDANSETRON INJ 2 MG/ML 2 ML VIAL IV PRN (11:13)
--- NOTE | 2017-03-23 14:21 | Progress Note ---
Progress Note Date of Service Mar 23, 2017. Progress Note Amalia FRANZ asked to see patient for ?ischemic colitis. She is being followed in the [place] system and apparently has known chronic mesenteric ischemia. She has an appt with a vascular surgeon in April. She is currently not having any abdominal pain or diarrhea. She was admitted after a syncopal episode and her pacemaker lead was repositioned. - Would not repeat any work-up at this time regarding the chronic mesenteric ischemia as she is being followed in the [place] system. - Outpatient f/u with her primary Gi provider and vascular surgery as scheduled. - Please call with questions.
--- NOTE | 2017-03-23 14:22 | Gastrointestinal Consultation ---
Gastrointestinal Consultation Date of Consultation: Mar 23, 2017 Attending Physician: cardiology Consulting Physician: Dr. Hickman Reason for Consultation: see brief progress note dated today for details. History of Present Illness Patient is a 71 year old female Past Medical/Surgical History Medical Problems: (1) Acute asthma exacerbation Status: Acute (2) Acute bronchitis Status: Acute (3) Anemia Status: Acute (4) CHF (congestive heart failure) Status: Acute (5) CHF (congestive heart failure) Status: Acute (6) Elevated troponin Status: Acute (7) Hyponatremia Status: Acute (8) Hypoxia Status: Acute (9) Intractable nausea and vomiting Status: Acute (10) Mesenteric ischemia Status: Acute (11) Nausea Status: Acute (12) Pulmonary edema Status: Acute (13) Respiratory distress Status: Acute (14) SOB (shortness of breath) Status: Acute (15) Syncope Status: Acute Family History Diabetes mellitus FH: heart disease Hypertension Kidney disease Kidney stones Lung disease Social History Smoking Status: Former Smoker Alcohol Use: occasionally Drug Use: none Marital Status: Housing Status: lives with family Occupation Status: retired Allergies Coded Allergies: Sulfa Antibiotics (Verified Allergy, Intermediate, RASH, 03/12/17) Morphine (Verified Adverse Reaction, Severe, GI SYMPTOMS, 03/12/17) Current Medications Home Meds and Scripts Medications Dose Route/Sig Max Daily Dose Days Date Category Dose Instructions Duoneb (Ipratropium-Albuterol) 3 Ml Nebu 1 Amp INH Q6H 30 03/16/17 Rx Dx: COPD - J44.9 Xanax (Alprazolam) 0.5 Mg Tab 0.25 Mg PO Q6H 03/16/17 Rx Miralax (Polyethylene) 17 Gm Pow 17 Gm PO BID 30 03/16/17 Rx Take daily, or twice daily if no bowel movement in 2 days or if feeling constipated Furosemide 40 Mg Tab 40 Mg PO QAM 30 03/16/17 Rx Furosemide 20 Mg Tab 40 Mg PO QAM 03/15/17 Rx for your heart and fluid Micro-K Ext Rel (Potassium Chloride) 10 Meq Capcr 10 Meq PO BID 03/12/17 Reported Nystatin 5 Ml Susp 5 Ml PO QID 10 03/11/17 Rx swish and swallow Ferrous Sulfate 325 Mg Tab 325 Mg PO BID 03/11/17 Rx take each dose with a glass of orange juice Magnesium-Oxide (Magnesium Oxide) 400 Mg Tab 400 Mg PO QAM 03/11/17 Rx Spironolactone 25 Mg Tab 25 Mg PO QAM 03/11/17 Rx for your heart and fluid Lisinopril 5 Mg Tab 5 Mg PO QAM 03/11/17 Rx for your heart Combivent Respimat (Ipratropium-Albuterol) 1 Aer Aer 1 Puffs INH QID 03/11/17 Rx Pramipexole Dihydrochlori (Pramipexole Dihydrochloride) 0.25 Mg Tab 1 Tab PO HS 03/07/17 Reported Advair Diskus 500/50 60 Dose (Fluticasone Prop/Salmeterol) 1 Ea Aerp 1 Puffs INH BID 03/07/17 Reported Tylenol (Acetaminophen) 500 Mg Tab 1,000 Mg PO Q6 PRN 03/07/17 Reported [place]-3 (Fish Oil) 1 Ea Cap 1 Cap PO DAILY 03/15/16 Reported Lipitor (Atorvastatin Calcium) 80 Mg Tab 80 Mg PO HS 05/07/13 Reported Aspirin Chewable (Aspirin) 81 Mg Chew 81 Mg PO QPM 05/07/13 Reported Coreg (Carvedilol) 25 Mg Tab 25 Mg PO BID 04/30/12 Reported Zoloft (Sertraline HCl) 50 Mg Tab 50 Mg PO QAM 02/21/12 Reported Plavix (Clopidogrel Bisulfate) 75 Mg Tab 75 Mg PO QAM 02/21/12 Reported Zetia (Ezetimibe) 10 Mg Tab 10 Mg PO HS 02/21/12 Reported Physical Exam Date Time Temp Pulse Resp B/P (MAP) Pulse Ox O2 Delivery O2 Flow Rate FiO2 03/23/17 12:00 Room Air 03/23/17 11:45 36.7 79 17 108/48 (68) 97 03/23/17 08:00 95 Room Air 03/23/17 07:57 36.6 85 18 118/47 (70) 95 Room Air 03/23/17 04:00 94 Room Air 03/23/17 03:55 36.7 83 18 97/48 (64) 94 Room Air 03/23/17 00:10 36.7 79 18 120/53 (75) 94 Room Air 03/23/17 00:00 94 Room Air 03/22/17 20:00 94 Room Air 03/22/17 19:17 36.7 77 18 114/47 (69) 94 Room Air 03/22/17 16:00 96 Nasal Cannula 2.0 03/22/17 15:36 36.7 78 20 104/42 (62) 99 Nasal Cannula 2.0 Laboratory Results Last 24 Hours Test 03/22/17 16:19 03/22/17 20:04 03/23/17 05:09 03/23/17 06:36 Bedside Glucose 127 mg/dl 126 mg/dl 107 mg/dl White Blood Count 7.47 K/uL Red Blood Count 3.71 M/uL Hemoglobin 11.7 g/dL Hematocrit 33.2 % Mean Corpuscular Volume 89.5 fL Mean Corpuscular Hemoglobin 31.5 pg Mean Corpuscular Hemoglobin Concent 35.2 g/dl RDW Standard Deviation 48.5 fL RDW Coefficient of Variation 14.8 % Platelet Count 267 K/uL Mean Platelet Volume 8.5 fL Sodium Level 129 mmol/L Potassium Level 4.9 mmol/L Chloride Level 94 mmol/L Carbon Dioxide Level 29 mmol/L Anion Gap 6.0 mmol/L Blood Urea Nitrogen 17 mg/dl Creatinine 1.00 mg/dl Est Creatinine Clear Calc Drug Dose 37.8 ml/min Estimated GFR () 65.2 Estimated GFR (Non- 56.2 BUN/Creatinine Ratio 17.2 Random Glucose 91 mg/dl Calcium Level 8.4 mg/dl Phosphorus Level 3.2 mg/dl Magnesium Level 2.0 mg/dl Test 03/23/17 11:13 Bedside Glucose 123 mg/dl Impression Patient is a 71 year old female
--- NOTE | 2017-03-23 14:23 | Progress Note ---
Subjective Date of Service: Mar 23, 2017. Subjective pt has some abdominal pain that is typical for her and some baseline constipation, she is agreeable to take po opiates Problem List Medical Problems: (1) Acute asthma exacerbation Status: Acute (2) Acute bronchitis Status: Acute (3) Anemia Status: Acute (4) CHF (congestive heart failure) Status: Acute (5) CHF (congestive heart failure) Status: Acute (6) Elevated troponin Status: Acute (7) Hyponatremia Status: Acute (8) Hypoxia Status: Acute (9) Intractable nausea and vomiting Status: Acute (10) Mesenteric ischemia Status: Acute (11) Nausea Status: Acute (12) Pulmonary edema Status: Acute (13) Respiratory distress Status: Acute (14) SOB (shortness of breath) Status: Acute (15) Syncope Status: Acute Review of Systems Constitutional: + weakness, + fatigue, No fever, No chills ENT: No hearing loss, No unusual epistaxis Respiratory: No cough, No shortness of breath Cardiac: No chest pain, No edema Abdomen: + pain, + constipation, No nausea, No vomiting, No diarrhea Female : No dysuria, No urinary frequency Psychiatric: No depression symptoms, No anhedonism Objective Vital Signs Date Time Temp Pulse Resp B/P (MAP) Pulse Ox O2 Delivery O2 Flow Rate FiO2 03/23/17 07:57 36.6 85 18 118/47 (70) 95 Room Air 03/23/17 04:00 94 Room Air 03/23/17 03:55 36.7 83 18 97/48 (64) 94 Room Air 03/23/17 00:10 36.7 79 18 120/53 (75) 94 Room Air 03/23/17 00:00 94 Room Air 03/22/17 20:00 94 Room Air 03/22/17 19:17 36.7 77 18 114/47 (69) 94 Room Air 03/22/17 16:00 96 Nasal Cannula 2.0 03/22/17 15:36 36.7 78 20 104/42 (62) 99 Nasal Cannula 2.0 03/22/17 12:00 97 Nasal Cannula 2.0 03/22/17 11:51 36.6 67 19 97/40 (59) 96 Nasal Cannula 2.0 Physical Exam General Appearance: WD/WN, + mild distress Eyes: PERRL, EOMI Neck: supple, no JVD Respiratory/Chest: chest non-tender, lungs clear, normal breath sounds Cardiovascular: regular rate, rhythm, no murmur Abdomen: soft, + abnormal bowel sounds, + guarding, + tenderness Extremities: no pedal edema, no calf tenderness Neurologic/Psychiatric: alert, oriented x 3 Laboratory Results Last 24 Hours Test 03/22/17 11:15 03/22/17 11:57 03/22/17 14:00 03/22/17 16:19 Stool Occult Blood NEGATIVE Bedside Glucose 118 mg/dl 127 mg/dl Sodium Level 127 mmol/L 129 mmol/L Potassium Level 5.1 mmol/L 4.9 mmol/L Chloride Level 94 mmol/L 94 mmol/L Carbon Dioxide Level 25 mmol/L 25 mmol/L Anion Gap 8.0 mmol/L 10.0 mmol/L Blood Urea Nitrogen 22 mg/dl 21 mg/dl Creatinine 1.20 mg/dl 1.20 mg/dl Est Creatinine Clear Calc Drug Dose 31.4 ml/min 31.4 ml/min Estimated GFR () 52.3 52.3 Estimated GFR (Non- 45.1 45.1 BUN/Creatinine Ratio 18.3 17.7 Random Glucose 118 mg/dl 126 mg/dl Calcium Level 8.2 mg/dl 8.6 mg/dl Test 03/22/17 20:04 03/23/17 05:09 03/23/17 06:36 Bedside Glucose 126 mg/dl 107 mg/dl White Blood Count 7.47 K/uL Red Blood Count 3.71 M/uL Hemoglobin 11.7 g/dL Hematocrit 33.2 % Mean Corpuscular Volume 89.5 fL Mean Corpuscular Hemoglobin 31.5 pg Mean Corpuscular Hemoglobin Concent 35.2 g/dl RDW Standard Deviation 48.5 fL RDW Coefficient of Variation 14.8 % Platelet Count 267 K/uL Mean Platelet Volume 8.5 fL Sodium Level 129 mmol/L Potassium Level 4.9 mmol/L Chloride Level 94 mmol/L Carbon Dioxide Level 29 mmol/L Anion Gap 6.0 mmol/L Blood Urea Nitrogen 17 mg/dl Creatinine 1.00 mg/dl Est Creatinine Clear Calc Drug Dose 37.8 ml/min Estimated GFR () 65.2 Estimated GFR (Non- 56.2 BUN/Creatinine Ratio 17.2 Random Glucose 91 mg/dl Calcium Level 8.4 mg/dl Phosphorus Level 3.2 mg/dl Magnesium Level 2.0 mg/dl Assessment and Plan 71 y/o F systolic CHF, HTN, HPL, pacer/AICD - presented on 03/21 following a syncopal episode which was deemed due to pacer malfunction. She was evaluated by EPS and required a procedure to correct lead misplacement. She was then slated for DC however her AM labs 03/22 revealed a K of 6.0 and she stated she felt generally ill with abdominal pain and a feeling of "impending doom". Later she stated that her abdominal pain has been present for over 2 months and was deemed due to chronic mesenteric ischemia at [place]. She has an appt with a vascular surgeon in April as a result. Pacer malfunction - EKG shows functional pacing - does not have cardio complaints - Dr Fernandes to manage Abdominal pain - due to chronic mesenteric ischemia - she has f/u with a vascular surgeon at [place] in April - treat symptomatically pt had good result with 5 mg of oxycodone, will also add some senna to help promote bowel movements MIRYAM - diuretics,, WALTER held - 4CHF - chronic systolic - currently well compensated - restart diuretics, WALTER - cont B dane
[2017-03-23] MEDS: SENNA 8.6 MG TAB PO SCH (16:17)
[2017-03-23] MEDS: OXYCODONE HCL IR 5 MG TAB (IMMEDIATE RELEASE) PO PRN (17:54)
[2017-03-23] MEDS: PRAMIPEXOLE DIHYDROCHLORIDE 0.5 MG TAB PO SCH (21:04)
[2017-03-24] VITALS: O2SAT 97
[2017-03-24 03:30] VITALS: BP 103/49; PULSE 73; TEMP 36.6; O2SAT 93
[2017-03-24 04:00] VITALS: O2SAT 93
[2017-03-24] MEDS: INSULIN ASPART 100 UNITS/ML 3 ML PEN SC SCH (07:00)
[2017-03-24] MEDS ORDERED: RXC5 PO (07:29)
--- NOTE | 2017-03-24 07:32 | Discharge Instructions ---
Discharge Instructions Date of Service Mar 24, 2017. Admission Reason for Admission: Syncope Discharge Discharge Diagnosis / Problem: PACEMAKER LEAD REVISION, ABDOMINAL PAIN Discharge Goals Goal(s): Diagnostic testing, Therapeutic intervention Activity Recommendations Activity Limitations: resume your previous activity . Current Hospital Diet Patient's current hospital diet: Regular Diet Discharge Diet Recommended Diet: Regular Diet Pending Studies Studies pending at discharge: no Laboratory Results Hemoglobin A1c Test 02/17/17 07:06 Range/Units Estimated Average Glucose 131 mg/dl Hemoglobin A1c 6.2 H 4.5-5.6 % Lipid Panel Test 01/30/17 13:22 Range/Units Triglycerides Level 59 0-150 mg/dl Cholesterol Level 99 0-200 mg/dl HDL Cholesterol 60 mg/dl Cholesterol/HDL Ratio 1.7 LDL Cholesterol, Calculated 27 mg/dl Medical Emergencies . Who to Call and When: Medical Emergencies: If at any time you feel your situation is an emergency, please call 911 immediately. . Non-Emergent Contact Non-Emergency issues call your: Primary Care Provider, [employer] Call Non-Emergent contact if: temperature is above 101, your pain is unusual for you . . "Provider Documentation" section prepared by Girma Shine. . VTE Core Measure Inpt VTE Proph given/why not?: Treatment not indicated
[2017-03-24 08:18] VITALS: BP 111/51; PULSE 78; TEMP 36.7; O2SAT 100
[2017-03-24] MEDS: POLYETHYLENE (MIRALAX) 17 GM PACK PO PRN (08:50)
[2017-03-24] MEDS: IPRATROPIUM BROMIDE/ALBUTEROL respimat INH INH SCH (08:51)
[2017-03-24] MEDS: FLUTICASONE/SALMETEROL (ADVAIR) 500/50 INH 14 PUFF INH SCH (08:51)
[2017-03-24] MEDS: TIOTROPIUM BROMIDE 5 PUFF/90 MCG INH INH SCH (08:51)
[2017-03-24] MEDS: FERROUS SULFATE 325 MG TAB PO SCH (08:52)
[2017-03-24] MEDS: CLOPIDOGREL BISULFATE 75 MG TAB PO SCH (08:52)
[2017-03-24] MEDS: ATORVASTATIN 40 MG TAB PO SCH (08:52)
[2017-03-24] MEDS: ASPIRIN 81 MG ECTAB PO SCH (08:52)
[2017-03-24] MEDS: MAGNESIUM CHLORIDE 64MG DELAYED REL TAB PO SCH (08:52)
[2017-03-24] MEDS: EZETIMIBE 10MG TAB PO SCH (08:52)
[2017-03-24] MEDS: SERTRALINE HCL 50 MG TAB PO SCH (08:52)
[2017-03-24] MEDS: SENNA 8.6 MG TAB PO SCH (08:52)
[2017-03-24] MEDS: SPIRONOLACTONE 25 MG TAB PO SCH (08:53)
[2017-03-24] MEDS: LISINOPRIL 10 MG TAB PO SCH (08:53)
[2017-03-24] MEDS: FUROSEMIDE 40 MG TAB PO SCH (08:54)
[2017-03-24] MEDS: CARVEDILOL 25 MG TAB PO SCH (08:54)
[2017-03-24] MEDS: PANTOprazole SOD 40 MG TAB PO SCH (08:56)
[2017-03-24] MEDS: NYSTATIN SUSP 500,000 U/5 ML UDC PO SCH (08:56)
[2017-03-24 09:03] VITALS: BP 110/53; PULSE 84; O2SAT 93
[2017-03-24] MEDS: OXYCODONE HCL IR 5 MG TAB (IMMEDIATE RELEASE) PO PRN (10:54)
[2017-03-24 11:07] VITALS: BP 110/53; PULSE 84; TEMP 36.7; O2SAT 93
--- NOTE | 2017-03-24 13:41 | Discharge Summary ---
Discharge Summary Date of Service Mar 24, 2017. Discharge Summary Admission Date: Mar 20, 2017 at 16:26 Discharge Date: Mar 24, 2017 Discharge Disposition: Home with services Principal Diagnosis: pacemaker lead revision, abdominal pain Immunizations: Have You Had Influenza Vaccine: Yes Influenza Vaccine Date: Oct 12, 2012 History of Tetanus Vaccine?: Unknown History of Pneumococcal: Unknown History of Hepatitis B Vaccine: No Consultations: dr fernandes revised pacemaker leads gastroenterology did see, recommends follow up for mesenteric ischemia as planned Discharge Exam Review of Systems: Constitutional: No fever Respiratory: No cough, No sputum Cardiovascular: No chest pain, No orthopnea Physical Exam: General Appearance: WD/WN, no apparent distress Respiratory/Chest: chest non-tender, lungs clear, normal breath sounds Cardiovascular: regular rate, rhythm, no murmur Abdomen / GI: normal bowel sounds, non tender, soft Hospital Course 71 y/o F systolic CHF, HTN, HPL, pacer/AICD - presented on 03/21 following a syncopal episode which was deemed due to pacer malfunction. She was evaluated by EPS and required a procedure to correct lead misplacement. She was then slated for DC however her AM labs 03/22 revealed a K of 6.0 and she stated she felt generally ill with abdominal pain and a feeling of "impending doom". Later she stated that her abdominal pain has been present for over 2 months and was deemed due to chronic mesenteric ischemia at [place]. She has an appt with a vascular surgeon in April as a result. day prior to discharge was pleased with help oxycodone gives to post prandial pain, will watch its affects on constipation Pacer malfunction - EKG shows functional pacing - does not have cardio complaints - Dr Fernandes to follow as outpt Abdominal pain - due to chronic mesenteric ischemia - she has f/u with a vascular surgeon at [place] in April - treat symptomatically pt had good result with 5 mg of oxycodone, will also discussed diet and lifestyle to help promote bowel movements MIRYAM - diuretics,, WALTER held - 4CHF - chronic systolic - currently well compensated - restart diuretics, WALTER - cont B dane Total Time Spent: Greater than 30 minutes This includes examination of the patient, discharge planning, medication reconciliation, and communication with other providers. Discharge Instructions Please refer to the electronic Patient Visit Report (Discharge Instructions) for additional information.
[2017-05-31] MEDS ORDERED: SERT50TA PO (07:16)
[2017-05-31] MEDS ORDERED: CLOP1TAB54 PO (07:16)
[2017-05-31] MEDS ORDERED: EZET10TA47 PO (07:16)
[2017-08-13] MEDS ORDERED: FRS/40 PO (14:55)
== END 2017-03-24 11:42 | disposition home or self-care (01) | DRG 315 ==
LOC: C.2E 16:26
PROVIDERS: ADMIT Internal Medicine Cardiovascular Disease; ATTEND Internal Medicine
PROC: 0WW Anatomical Regions, General, Revision (ICD-10-PCS; principal; 2017-03-21 14:07)
DX: Z45.02 Encounter for adjustment and management of automatic implantable cardiac defibrillator (principal); I42.9 Cardiomyopathy, unspecified; I50.22 Chronic systolic (congestive) heart failure; N17.9 Acute kidney failure, unspecified; K55.1 Chronic vascular disorders of intestine; E87.1 Hypo-osmolality and hyponatremia; B37.0 Candidal stomatitis; E87.5 Hyperkalemia; J44.9 Chronic obstructive pulmonary disease, unspecified; I25.10 Atherosclerotic heart disease of native coronary artery without angina pectoris; Z79.82 Long term (current) use of aspirin; Z79.899 Other long term (current) drug therapy; Z79.02 Long term (current) use of antithrombotics/antiplatelets

== ENCOUNTER → 2017-03-26 | Outpatient (CLI) | payer BC, OTHER ==
[~2017-03-26] MED LIST changes: +ACET-1256 PO; +ADVIN50/60 INH; +ALBU18002 INH; +ATOR80TA PO; +CARV25TA PO; +CLOP1TAB54 PO; +EZET10TA47 PO; +FERR1TAB13 PO; +FRS/40 PO; +GUAISYP4 PO; -LSX40 PO; +MAGN400T6 PO; +MRP25 PO; +NUTR-7 PO; +OMEG10007 PO; +OXYC1TAB3 PO; +POLY335019 PO; +POTA10CA28 PO; +PRED20TA2 PO; +RXC5 PO; +SERT50TA PO; +SPIR25TA PO; +SPRIN INH
[2017-03-26 14:45] LABS: BASO % 0.2 %; BASO ABS # 0.02 K/uL (0-0.2); COMPLETE YES; HEMATOCRIT 35.8 % (37-47); IG% 0.4 %; LYMPH % 18.4 %; LYMPH ABS # 1.48 K/uL (1.2-3.4); MEAN CELL VOLUME 89.3 fL (80-100); MEAN CORPUSCULAR HEMOGLOBIN 30.9 pg (25-34); MEAN CORPUSCULAR HGB CONC 34.6 g/dl (32-36); MONO % 11.9 %; NEUT % 68.1 %; PLATELET COUNT 255 K/uL (130-400); RED BLOOD COUNT 4.01 M/uL (4.2-5.4); WHITE BLOOD COUNT 8.04 K/uL (4.8-10.8)
[2017-03-26 15:08] LABS: BLOOD UREA NITROGEN 19 mg/dl (7-18); BUN/CREATININE RATIO 14.5 (10-20); CALCIUM 9.1 mg/dl (8.5-10.1); CARBON DIOXIDE 26 mmol/L (21-32); CHLORIDE 89 mmol/L (98-107); GLUCOSE 114 mg/dl (70-99); POTASSIUM 4.9 mmol/L (3.5-5.1); SODIUM 124 mmol/L (136-145)
== END | disposition home or self-care (01) ==
LOC: C.LAB1850 13:07
PROVIDERS: ATTEND Physician Assistant
DX: I25.10 Atherosclerotic heart disease of native coronary artery without angina pectoris (principal)

== ENCOUNTER → 2017-03-28 | Outpatient (CLI) | payer BC ==
[2017-03-28 15:35] LABS: BLOOD UREA NITROGEN 23 mg/dl (7-18); BUN/CREATININE RATIO 14.6 (10-20); CALCIUM 9.2 mg/dl (8.5-10.1); CARBON DIOXIDE 26 mmol/L (21-32); CHLORIDE 93 mmol/L (98-107); GLUCOSE 107 mg/dl (70-99); PHOSPHORUS 4.5 mg/dl (2.5-4.9); POTASSIUM 4.6 mmol/L (3.5-5.1); SODIUM 130 mmol/L (136-145)
== END | disposition home or self-care (01) ==
LOC: C.LAB1850 14:10
PROVIDERS: ATTEND Internal Medicine Nephrology
DX: E87.1 Hypo-osmolality and hyponatremia (principal)

== ENCOUNTER 2017-04-13 18:31 | Inpatient (IN) | payer BC, OTHER ==
[~2017-04-13] VITALS: Ht 157.5 cm; Wt 47.1 kg
[~2017-04-13 18:31] MED LIST changes: -ACET-1256 PO; -ADVIN50/60 INH; -ALBU18002 INH; -ATOR80TA PO; -CARV25TA PO; -CLOP1TAB54 PO; -EZET10TA47 PO; -FERR1TAB13 PO; -FRS/40 PO; -GUAISYP4 PO; -MAGN400T6 PO; -MRP25 PO; -NUTR-7 PO; -OMEG10007 PO; -OXYC1TAB3 PO; -POLY335019 PO; -POTA10CA28 PO; -PRED20TA2 PO; -SERT50TA PO; -SPIR25TA PO; -SPRIN INH
[2017-04-13] MEDS ORDERED: ALBUT/IPRATROP 3MG/0.5MG NEB 3 ML VIAL ONE (18:44)
--- NOTE | 2017-04-13 18:50 | EMERGENCY ROOM VISIT NOTE ---
History Report prepared by Phillip: Eliza Pike Under the Supervision of: Dr. Ta Palomares M.D. First contact with patient: 18:45 Chief Complaint: RESPIRATORY PROBLEMS Stated Complaint: FILLING UP W FLUID AND BREATHING History of Present Illness The patient is a 71 year old female who presents to the Emergency Room with complaints of worsening shortness of breath beginning a few days prior to arrival. The patient is experiencing trouble breathing. She has been experiencing worsening swelling to her lower legs as well. The patient denies fevers or chills. She has a history of COPD and CHF. The patient is scheduled for a blockage removal of right aorta on Saturday in [place]. The patient is currently on Plavix. Source of History: patient Onset: few days CONDUCTOR FREIGHT Position: other (global) Quality: other (shortness of breath) Timing: worsening Associated Symptoms: No fevers, No chills Note: The patient is experiencing trouble breathing and swelling to her lower extremities. Review of Systems All systems have been listed, reviewed, and are negative other than those previously mentioned. Please see Additional Medical History Sheet. Past Medical & Surgical Medical Problems: (1) Acute on chronic systolic (congestive) heart failure (2) AICD malfunction (3) ANEMIA NOS (4) ASTHMA, UNSPECIFIED (5) Cardiac defibrillator in place (6) CHRONIC KIDNEY DISEASE, UNSPECIFIED (7) copd exac, n/v, (8) CORONARY ATHEROSCLEROSIS OF [place] CORONARY VESSEL (9) DIAB CASPER WO COMPL, TYPE II OR UNSPEC TYPE, NOT UNCNTRLD (10) Emphysema of lung (11) Hypoxia (12) Non compliance w medication regimen (13) Pulmonary congestion (14) PURE HYPERCHOLESTEROLEM (15) Respiratory distress (16) Syncope Family History Diabetes mellitus FH: heart disease Hypertension Kidney disease Kidney stones Lung disease Social History Smoking Status: Never Smoker Alcohol Use: occasionally Drug Use: none Marital Status: Housing Status: lives with family Occupation Status: retired Current/Historical Medications Scheduled Aspirin (Aspirin Chewable), 81 MG PO QPM Atorvastatin Calcium (Lipitor), 80 MG PO HS Carvedilol (Coreg), 25 MG PO BID Clopidogrel Bisulfate (Plavix), 75 MG PO QAM Ezetimibe (Zetia), 10 MG PO HS Ferrous Sulfate (Kp Ferrous Sulfate), 325 MG PO BID Fish Oil ([place]-3), 1 CAP PO DAILY Fluticasone Prop/Salmeterol (Advair Diskus 500/50 60 Dose), 1 PUFFS INH BID Furosemide (Lasix), 40 MG PO QAM Lisinopril (Lisinopril), 5 MG PO QAM Magnesium Oxide (Mag-Ox), 400 MG PO QAM Nutritional Supplements (Boost), 1 CAN PO DIRECTED Polyethylene Glycol 3350 (Miralax), 17 GM PO DAILY Potassium Chloride (Micro-K Ext Rel), 10 MEQ PO BID Pramipexole Dihydrochloride (Pramipexole Dihydrochlori), 1 TAB PO HS Sertraline (Zoloft), 50 MG PO QAM Scheduled PRN Acetaminophen (Tylenol), 1,000 MG PO Q6 PRN for Headache Albuterol Sulfate (Proair Respiclick), 2 PUFFS INH QID PRN for Wheezing Alprazolam (Xanax), 1.5 MG PO Q6H PRN for Anxiety/Agitation Oxycodone Ir (Roxicodone Ir), 5 MG PO Q4H PRN for Severe Pain Allergies Coded Allergies: Sulfa Antibiotics (Verified Allergy, Intermediate, RASH, 04/13/17) Morphine (Verified Adverse Reaction, Severe, GI SYMPTOMS, 04/13/17) Physical Exam Vital Signs Date Time Temp Pulse Resp B/P (MAP) Pulse Ox O2 Delivery O2 Flow Rate FiO2 04/13/17 20:30 88 24 125/54 95 BiPAP 04/13/17 20:00 85 24 113/49 97 BiPAP 04/13/17 19:35 102 34 146/73 97 BiPAP 04/13/17 19:17 95 BiPAP 04/13/17 19:17 95 BiPAP 04/13/17 19:14 63 98 30 04/13/17 19:01 96 BiPAP 04/13/17 18:49 90 04/13/17 18:35 36.9 105 32 152/84 87 Room Air Physical Exam GENERAL: Patient is very anxious, tachypneic, tachycardic elderly female who is gasping for air. SKIN: No erythema, pallor, cyanosis or rash HEENT: Normal head, pupils equal, reactive to light and accommodation. Neck: Without adenopathy, no neck vein distention. LUNGS: Loud wheezes in all english, poor air movement. HEART: Regular rapid rate. No murmurs. No gallops. No rubs ABDOMEN: Soft, nontender. EXTREMITIES: No signs of trauma. 3+ nonpitting pedal and pretibial edema. No calf or thigh tenderness. NEUROLOGIC: Cranial nerves II-XII within normal limits. No gross motor sensory function deficits. Medical Decision & Procedures ER Provider Diagnostic Interpretation: X ray results are stated below per my interpretation and the radiologist's interpretation. CHEST ONE VIEW PORTABLE CLINICAL HISTORY: Shortness of breath COMPARISON STUDY: 03/20/2017 FINDINGS: The heart is mildly enlarged. There is a left-sided pacer/defibrillator present. There is mild interstitial edema. There is no focal pulmonary consolidation. There are no significant pleural effusions.[ IMPRESSION: Worsening mild interstitial pulmonary edema. No evidence of focal pulmonary consolidation Electronically signed by: Micky Cutler M.D. 04/13/2017 7:21 PM Dictated Date/Time: 04/13/2017 7:20 PM Laboratory Results 04/13/17 18:50 Red Blood Count 4.16, Mean Corpuscular Volume 93.5, Mean Corpuscular Hemoglobin 31.0, Mean Corpuscular Hemoglobin Concent 33.2, Mean Platelet Volume 9.0, Neutrophils (%) (Auto) 42.1, Lymphocytes (%) (Auto) 40.4, Monocytes (%) (Auto) 14.8, Eosinophils (%) (Auto) 2.0, Basophils (%) (Auto) 0.4, Neutrophils # (Auto ) 4.11, Lymphocytes # (Auto) 3.95, Monocytes # (Auto) 1.45, Eosinophils # (Auto ) 0.20, Basophils # (Auto) 0.04 04/13/17 18:50 Test 04/13/17 18:50 04/13/17 18:56 04/13/17 19:34 White Blood Count 9.78 K/uL (4.8-10.8) Red Blood Count 4.16 M/uL (4.2-5.4) Hemoglobin 12.9 g/dL (12.0-16.0) Hematocrit 38.9 % (37-47) Mean Corpuscular Volume 93.5 fL (80-100) Mean Corpuscular Hemoglobin 31.0 pg (25-34) Mean Corpuscular Hemoglobin Concent 33.2 g/dl (32-36) Platelet Count 271 K/uL (130-400) Mean Platelet Volume 9.0 fL (7.4-10.4) Neutrophils (%) (Auto) 42.1 % Lymphocytes (%) (Auto) 40.4 % Monocytes (%) (Auto) 14.8 % Eosinophils (%) (Auto) 2.0 % Basophils (%) (Auto) 0.4 % Neutrophils # (Auto) 4.11 K/uL (1.4-6.5) Lymphocytes # (Auto) 3.95 K/uL (1.2-3.4) Monocytes # (Auto) 1.45 K/uL (0.11-0.59) Eosinophils # (Auto) 0.20 K/uL (0-0.5) Basophils # (Auto) 0.04 K/uL (0-0.2) RDW Standard Deviation 58.1 fL (36.4-46.3) RDW Coefficient of Variation 17.0 % (11.5-14.5) Immature Granulocyte % (Auto) 0.3 % Immature Granulocyte # (Auto) 0.03 K/uL (0.00-0.02) Anion Gap 11.0 mmol/L (3-11) Est Creatinine Clear Calc Drug Dose 32.7 ml/min Estimated GFR () 52.3 Estimated GFR (Non- 45.1 BUN/Creatinine Ratio 24.7 (10-20) Calcium Level 9.5 mg/dl (8.5-10.1) Total Bilirubin 0.4 mg/dl (0.2-1) Aspartate Amino Transf (AST/SGOT) 35 U/L (15-37) Alanine Aminotransferase (ALT/SGPT) 41 U/L (12-78) Alkaline Phosphatase 92 U/L (45-117) Troponin I 0.038 ng/ml (0-0.045) Total Protein 7.9 gm/dl (6.4-8.2) Albumin 3.5 gm/dl (3.4-5.0) Globulin 4.4 gm/dl (2.5-4.0) Albumin/Globulin Ratio 0.8 (0.9-2) Bedside Lactic Acid Venous 3.38 mmol/L (0.90-1.70) Urine Color YELLOW Urine Appearance CLEAR (CLEAR) Urine pH 6.5 (4.5-7.5) Urine Specific Nathalie 1.013 (1.000-1.030) Urine Protein NEG (NEG) Urine Glucose (UA) NEG (NEG) Urine Ketones NEG (NEG) Urine Occult Blood NEG (NEG) Urine Nitrite NEG (NEG) Urine Bilirubin NEG (NEG) Urine Urobilinogen NEG (NEG) Urine Leukocyte Esterase NEG (NEG) Laboratory results as stated above per my review. Medications Administered Medications (Trade) Dose Ordered Sig/Osmani Route Start Time Stop Time Status Last Admin Dose Admin Albuterol/ Ipratropium (Duoneb) 3 ml STK-MED ONCE .ROUTE 04/13/17 18:44 04/13/17 18:45 DC 04/13/17 18:47 3 ML Furosemide (Lasix Inj) 40 mg NOW STAT IV 04/13/17 18:51 04/13/17 18:54 DC 04/13/17 19:06 40 MG Lorazepam (Ativan Inj) 1 mg NOW STAT IV 04/13/17 19:01 04/13/17 19:02 DC 04/13/17 19:06 1 MG ECG Indication: SOB/dyspnea Rate (beats per minute): 68 Rhythm: other (ventricular paced) Findings: no ectopy Change: no significant change (from 03/21/17) ED Course 184: Past medical records reviewed. The patient was evaluated in room C10. A complete history and physical examination was performed. 1850: Lasix Inj 40 mg IV. 1900: Ativan Inj 1 mg IV. 1922: The patient is feeling much better. Her pulse ox is in the mid 90s. She is on BiPap. 1950: The patient is feeling much better. 1999: Discussed the patient's case with Herb Howard - [facility]. The patient will be evaluated for further management. 2006: Upon reevaluation, the patient is hemodynamically stable.I discussed today 's findings with her. She verbalized agreement of the treatment plan. I spoke with Dr. Estevez of the [facility] Hospitalist Service to evaluate the patient for further management. Medical Decision Nurses notes reviewed. Medical history sheet reviewed. Differential diagnosis includes but is not limited to: CHF, COPD, asthma, bronchitis, pneumonia, recent history of mesenteric infarction. The patient arrives here with extreme shortness of breath. She is a prior history of congestive failure and COPD. The patient was initially given a breathing treatment by the nurse. The patient was wheezing in all english. Chest x-ray reveals congestive failure/pulmonary edema. The patient was given IV Lasix. The patient will require BiPAP and Ativan to help with her anxiety. The patient improved markedly with the above treatments. The patient will require further evaluation hospital. Multiple labs and EKG were obtained. Please see above. I discussed care with Dr. Estevez who will further evaluate the patient. Medication Reconciliation: I attest that I have personally reviewed the patient' s current medication list. Blood Pressure Screening: Patient was found to have an elevated blood pressure and will be monitored by the hospitalist for further evaluation. Consults Time Called: 1956 Consulting Physician: Dr. Herb HOWARD Returned Call: 1999 Discussed the patient's case with Herb Howard. The patient will be evaluated for further management. Impression Primary Impression: Pulmonary edema Additional Impressions: COPD (chronic obstructive pulmonary disease) Mesenteric ischemia Critical Care I have personally spent greater than 35 minutes of critical care time in the direct management of this patient. This includes bedside care, interpretation of diagnostic studies, and testing, discussion with consultants, patient, and family members, and other required patient management activities. This 35 minutes is in excess of all separately billable procedures. Scribe Attestation The scribe's documentation has been prepared under my direction and personally reviewed by me in its entirety. I confirm that the note above accurately reflects all work, treatment, procedures, and medical decision making performed by me. Departure Information Dispostion Being Evaluated By Hospitalist Referrals RV. Edwards MD (PCP) Problem Qualifiers
[2017-04-13] MEDS ORDERED: FUROSEMIDE 40 MG/4 ML VIAL IV STA (18:51)
[2017-04-13] MEDS ORDERED: LORAZEPAM 2 MG/ML 1 ML VIAL IV STA (19:01)
[2017-04-13 19:14] VITALS: PULSE 63; O2SAT 98
[2017-04-13 19:14] LABS: BASO % 0.4 %; BASO ABS # 0.04 K/uL (0-0.2); COMPLETE YES; HEMATOCRIT 38.9 % (37-47); IG% 0.3 %; LYMPH % 40.4 %; LYMPH ABS # 3.95 K/uL (1.2-3.4); MEAN CELL VOLUME 93.5 fL (80-100); MEAN CORPUSCULAR HGB CONC 33.2 g/dl (32-36); MONO % 14.8 %; NEUT % 42.1 %; PLATELET COUNT 271 K/uL (130-400); RED BLOOD COUNT 4.16 M/uL (4.2-5.4); WHITE BLOOD COUNT 9.78 K/uL (4.8-10.8)
--- NOTE | 2017-04-13 19:22 | DIAGNOSTIC IMAGING REPORT ---
CHEST ONE VIEW PORTABLE CLINICAL HISTORY: Shortness of breath COMPARISON STUDY: 03/20/2017 FINDINGS: The heart is mildly enlarged. There is a left-sided pacer/defibrillator present. There is mild interstitial edema. There is no focal pulmonary consolidation. There are no significant pleural effusions.[ IMPRESSION: Worsening mild interstitial pulmonary edema. No evidence of focal pulmonary consolidation Electronically signed by: Micky Cutler M.D. 04/13/2017 7:21 PM Dictated Date/Time: 04/13/2017 7:20 PM
[2017-04-13] MEDS ORDERED: FERR1TAB13 PO (19:26)
[2017-04-13] MEDS ORDERED: FRS/40 PO (19:26)
[2017-04-13] MEDS ORDERED: ALBU18002 INH (19:26)
[2017-04-13] MEDS ORDERED: OXYC1TAB3 PO (19:26)
[2017-04-13] MEDS ORDERED: ALPR-411 PO (19:26)
[2017-04-13] MEDS ORDERED: POLY335019 PO (19:26)
[2017-04-13 19:41] LABS: BUN/CREATININE RATIO 24.7 (10-20); CALCIUM 9.5 mg/dl (8.5-10.1); CREATININE 1.2 mg/dl (0.60-1.20)
[2017-04-13 19:46] LABS: ALB/GLOB RATIO 0.8 (0.9-2)
[2017-04-13 19:47] LABS: URINE APPEARANCE CLEAR (CLEAR); URINE BILIRUBIN NEG (NEG); URINE COLOR YELLOW; URINE NITRITE NEG (NEG); URINE PH 6.5 (4.5-7.5); URINE SPECIFIC GRAVITY 1.013 (1.000-1.030); UROBILINOGEN NEG (NEG); ZZURINE CULT IF INDIC CATH NO
[2017-04-13 19:56] LABS: MANUAL MICROSCOPIC REQUIRED? NO; REVIEW REQ? NO
[2017-04-13] MEDS ORDERED: ALPRAZOLAM 0.5 MG TAB PO PRN (20:30)
[2017-04-13] MEDS ORDERED: POLYETHYLENE (MIRALAX) 17 GM PACK PO PRN (20:30)
[2017-04-13] MEDS ORDERED: ALUMINUM/MAGNESIUM/SIMETH (MAALOX MAX) 30 ML UDC PO PRN (20:30)
[2017-04-13] MEDS ORDERED: MAGNESIUM HYDROXIDE SUSP 30 ML UDC PO PRN (20:30)
[2017-04-13] MEDS ORDERED: ONDANSETRON INJ 2 MG/ML 2 ML VIAL IV PRN (20:30)
[2017-04-13] MEDS ORDERED: ACETAMINOPHEN 325 MG TAB PO PRN (20:30)
[2017-04-13] MEDS ORDERED: OXYCODONE HCL IR 5 MG TAB (IMMEDIATE RELEASE) PO PRN (20:30)
[2017-04-13 20:33] VITALS: BP 113/49; PULSE 63; TEMP 36.9; O2SAT 95; Ht 157.5 cm; Wt 47.1 kg
--- NOTE | 2017-04-13 20:49 | History and Physical ---
History & Physical Date & Time of Service: Apr 13, 2017 at 20:32 Chief Complaint: Filling Up W Fluid And Breathing Primary Care Physician: RV. Edwards MD History of Present Illness Source: patient 71 y/o F with complex med Hx including systolic CHF (25%), COPD, CAD, abdominal aortic stenosis with history of mesenteric infarct. She presented to the ER one month ago and was Life-flighted to [place] as there was suspicion of ischemic bowel. She is scheduled for abdominal aortic stenting on 03/19. She presents with progressive SOB x 1 day and was exhibiting moderate respiratory distress on arrival to the ER. She was placed on Bipap and provided with Lasix and albuterol which has lead to marked improvement. She was apparently overdiuresed during a previous hospital visit which may have lead to low pressure and mesenteric ischemia. She denies CP a productive cough or fever. Past Medical/Surgical History 1) CHF - ischjemic cardiomyopathy - EF 25-30% 2) CAD - inf [place] 2000 3) HTN 4) HPL 5) COPD 6) Mesenteric ischemia 7) Abdominal aortic stenosis 8) CArotid stenosis - L CEA 9) Moderate aortic stenosis 10) Severe MR 11) LBBB 12) Biventricular pacer / defib Surgical: 1) SCOT-BSO 2) Defib/pacer 3) Carpal tunnel 4) L CEA Family History Diabetes mellitus FH: heart disease Hypertension Kidney disease Kidney stones Lung disease Both parents owing to heart disease Social History Smoking Status: Never Smoker Drug Use: none Marital Status: Housing status: lives with family Occupational Status: retired Immunizations History of Influenza Vaccine: Yes Influenza Vaccine Date: Oct 12, 2012 History of Tetanus Vaccine?: Unknown History of Pneumococcal: Unknown History of Hepatitis B Vaccine: No Multi-Drug Resistant Organisms History of MDRO: No Allergies Coded Allergies: Sulfa Antibiotics (Verified Allergy, Intermediate, RASH, 04/13/17) Morphine (Verified Adverse Reaction, Severe, GI SYMPTOMS, 04/13/17) Home Medications Scheduled Aspirin (Aspirin Chewable), 81 MG PO QPM Atorvastatin Calcium (Lipitor), 80 MG PO HS Carvedilol (Coreg), 25 MG PO BID Clopidogrel Bisulfate (Plavix), 75 MG PO QAM Ezetimibe (Zetia), 10 MG PO HS Ferrous Sulfate (Kp Ferrous Sulfate), 325 MG PO BID Fish Oil ([place]-3), 1 CAP PO DAILY Fluticasone Prop/Salmeterol (Advair Diskus 500/50 60 Dose), 1 PUFFS INH BID Furosemide (Lasix), 40 MG PO QAM Lisinopril (Lisinopril), 5 MG PO QAM Magnesium Oxide (Mag-Ox), 400 MG PO QAM Nutritional Supplements (Boost), 1 CAN PO DIRECTED Polyethylene Glycol 3350 (Miralax), 17 GM PO DAILY Potassium Chloride (Micro-K Ext Rel), 10 MEQ PO BID Pramipexole Dihydrochloride (Pramipexole Dihydrochlori), 1 TAB PO HS Sertraline (Zoloft), 50 MG PO QAM Scheduled PRN Acetaminophen (Tylenol), 1,000 MG PO Q6 PRN for Headache Albuterol Sulfate (Proair Respiclick), 2 PUFFS INH QID PRN for Wheezing Alprazolam (Xanax), 1.5 MG PO Q6H PRN for Anxiety/Agitation Oxycodone Ir (Roxicodone Ir), 5 MG PO Q4H PRN for Severe Pain Review of Systems Constitutional: No fever, No chills, No sweats Eyes: No worsening of vision ENT: No hearing loss, No unusual epistaxis, No nasal symptoms, No sore throat Respiratory: + wheezing, + shortness of breath, + dyspnea on exertion, + dyspnea at rest, No cough, No sputum Cardiovascular: No chest pain, No orthopnea, No PND Abdomen: No pain, No nausea, No vomiting Musculoskeletal: No joint pain Genitourinary - Female: No dysuria, No urinary frequency, No urinary urgency Neurologic: No memory loss, No paralysis, No weakness Psychiatric: No depression symptoms Endocrine: No fatigue Hematologic / Lymphatic: No abnormal bleeding/bruising Integumentary: No rash Allergic / Immunologic: No environmental allergies Physical Exam Vital Signs Date Time Temp Pulse Resp B/P (MAP) Pulse Ox O2 Delivery O2 Flow Rate FiO2 04/13/17 20:00 85 24 113/49 97 BiPAP 04/13/17 19:35 102 34 146/73 97 BiPAP 04/13/17 19:17 95 BiPAP 04/13/17 19:17 95 BiPAP 04/13/17 19:14 63 98 30 04/13/17 19:01 96 BiPAP 04/13/17 18:49 90 04/13/17 18:35 36.9 105 32 152/84 87 Room Air General Appearance: WD/WN, no apparent distress Head: normocephalic Eyes: normal inspection, PERRL, EOMI ENT: normal ENT inspection, pharynx normal Neck: supple, thyroid normal Respiratory/Chest: chest non-tender, lungs clear, normal breath sounds Cardiovascular: regular rate, rhythm, no JVD, no murmur, + systolic murmur, + pertinent finding (Peripheral pulses are faint) Abdomen/GI: normal bowel sounds, non tender, soft Back: normal inspection, no CVA tenderness, no muscle spasm, normal range of motion Extremities/Musculoskelatal: normal inspection, no calf tenderness, normal capillary refill, no pedal edema, normal range of motion 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, no motor/sensory deficits, alert, normal mood/affect, normal reflexes, oriented x 3 Skin: normal color, warm/dry, no rash Diagnostics Laboratory Results Results Past 24 Hours Test 04/13/17 18:50 04/13/17 18:56 04/13/17 19:34 Range/Units White Blood Count 9.78 4.8-10.8 K/uL Red Blood Count 4.16 4.2-5.4 M/uL Hemoglobin 12.9 12.0-16.0 g/dL Hematocrit 38.9 37-47 % Mean Corpuscular Volume 93.5 80-100 fL Mean Corpuscular Hemoglobin 31.0 25-34 pg Mean Corpuscular Hemoglobin Concent 33.2 32-36 g/dl Platelet Count 271 130-400 K/uL Mean Platelet Volume 9.0 7.4-10.4 fL Neutrophils (%) (Auto) 42.1 % Lymphocytes (%) (Auto) 40.4 % Monocytes (%) (Auto) 14.8 % Eosinophils (%) (Auto) 2.0 % Basophils (%) (Auto) 0.4 % Neutrophils # (Auto) 4.11 1.4-6.5 K/uL Lymphocytes # (Auto) 3.95 1.2-3.4 K/uL Monocytes # (Auto) 1.45 0.11-0.59 K/uL Eosinophils # (Auto) 0.20 0-0.5 K/uL Basophils # (Auto) 0.04 0-0.2 K/uL RDW Standard Deviation 58.1 36.4-46.3 fL RDW Coefficient of Variation 17.0 11.5-14.5 % Immature Granulocyte % (Auto) 0.3 % Immature Granulocyte # (Auto) 0.03 0.00-0.02 K/uL Sodium Level 136 136-145 mmol/L Potassium Level 4.0 3.5-5.1 mmol/L Chloride Level 98 98-107 mmol/L Carbon Dioxide Level 27 21-32 mmol/L Anion Gap 11.0 3-11 mmol/L Blood Urea Nitrogen 30 7-18 mg/dl Creatinine 1.20 0.60-1.20 mg/dl Est Creatinine Clear Calc Drug Dose 32.7 ml/min Estimated GFR () 52.3 Estimated GFR (Non- 45.1 BUN/Creatinine Ratio 24.7 10-20 Random Glucose 108 70-99 mg/dl Calcium Level 9.5 8.5-10.1 mg/dl Total Bilirubin 0.4 0.2-1 mg/dl Aspartate Amino Transf (AST/SGOT) 35 15-37 U/L Alanine Aminotransferase (ALT/SGPT) 41 12-78 U/L Alkaline Phosphatase 92 45-117 U/L Troponin I 0.038 0-0.045 ng/ml Total Protein 7.9 6.4-8.2 gm/dl Albumin 3.5 3.4-5.0 gm/dl Globulin 4.4 2.5-4.0 gm/dl Albumin/Globulin Ratio 0.8 0.9-2 Bedside Lactic Acid Venous 3.38 0.90-1.70 mmol/L Urine Color YELLOW Urine Appearance CLEAR CLEAR Urine pH 6.5 4.5-7.5 Urine Specific [place] 1.013 1.000-1.030 Urine Protein NEG NEG Urine Glucose (UA) NEG NEG Urine Ketones NEG NEG Urine Occult Blood NEG NEG Urine Nitrite NEG NEG Urine Bilirubin NEG NEG Urine Urobilinogen NEG NEG Urine Leukocyte Esterase NEG NEG Diagnostic Radiology CXR: Pulmonary congestion EKG Ventricular paced rhythm Impression Assessment and Plan 71 y/o F with complex med Hx including systolic CHF (25%), COPD, CAD, abdominal aortic stenosis with history of mesenteric infarct. She presented to the ER one month ago and was Life-flighted to [place] as there was suspicion of ischemic bowel. She is scheduled for abdominal aortic stenting on 03/19. She presents with progressive SOB x 1 day and was exhibiting moderate respiratory distress on arrival to the ER. She was placed on BIPAP and provided with Lasix and albuterol which has lead to marked improvement. 1) SOB - acute respiratory distress consistent with CHF exacerbation - markedly improved with Lasix and BIPAP. Cont Lasix at 20mg Q8 to avoid overdiuresis - NTG sparingly. If pts condition deteriorates we should consider transfer to [place]. Cont Coreg, Lisinopril. 2) COPD - may be contributing - placed on scheduled Duonebs and Albuterol - cont Advair - will consider steroid use if she remains SOB following diuresis. 3) CAD - No current evidence of acute event - will obtain additional trop. EKG is nondiagnostic due to pacing. Cont Coreg, ASA, Statin - PRN NTG. 4) Mesenteric ischemia - scheduled for aortic stenting 03/19 - consider transfer prior if she has not fully recovered 5) HTN, HPL - cont Lisinopril, Coreg, Lipitor Full code - Heparin prophylaxis - total time for this admit including review of labs, meds, EKG - discussion with pt, daughter and ER attending - 39 min Level of Care Telemetry Resuscitation Status FULL RESUSCITATION VTE Prophylaxis VTE Risk Assessment Done? Y/N: Yes Risk Level: Moderate Given or contraindicated: Unfractionated heparin SQ
[2017-04-13] MEDS ORDERED: ALBUTEROL 0.083% NEBU SOLN 3 ML VIAL INH PRN (21:00)
[2017-04-13 21:45] VITALS: BP 134/56; PULSE 91; TEMP 36.4; O2SAT 95
[2017-04-13] MEDS: FLUTICASONE/SALMETEROL (ADVAIR) 500/50 INH 14 PUFF INH SCH (22:32)
[2017-04-13] MEDS: PRAMIPEXOLE DIHYDROCHLORIDE 0.25MG TAB PO SCH (22:32)
[2017-04-13] MEDS: EZETIMIBE 10MG TAB PO SCH (22:33)
[2017-04-13] MEDS: ASPIRIN 81 MG ECTAB PO SCH (22:33)
[2017-04-13] MEDS: POTASSIUM CHLORIDE 10 MEQ TABCR PO SCH (22:33)
[2017-04-13] MEDS: CARVEDILOL 25 MG TAB PO SCH (22:34)
[2017-04-13] MEDS: ATORVASTATIN 40 MG TAB PO SCH (22:34)
[2017-04-13] MEDS: ALBUT/IPRATROP 3MG/0.5MG NEB 3 ML VIAL INH SCH (23:00)
[2017-04-13 23:01] VITALS: PULSE 84; O2SAT 98
[2017-04-13 23:40] VITALS: BP 144/72; PULSE 96; TEMP 36.5; O2SAT 93
[2017-04-14] VITALS (13 sets, daily range): BP systolic 107–134; BP diastolic 56–70; PULSE 79–85; TEMP 36.4–36.7; O2SAT 93–98
[2017-04-14] MEDS: FUROSEMIDE INJ 20 MG in SYRINGE 0 ML IV SCH ×3 (05:44→20:38)
[2017-04-14] MEDS: HEPARIN SOD 5000 UNIT/0.5 ML CARP SQ SCH ×4 (06:30→20:42)
[2017-04-14] MEDS: ALBUT/IPRATROP 3MG/0.5MG NEB 3 ML VIAL INH SCH ×3 (07:16→15:12)
[2017-04-14] MEDS: FLUTICASONE/SALMETEROL (ADVAIR) 500/50 INH 14 PUFF INH SCH ×2 (08:03→20:37)
[2017-04-14] MEDS: BOOST VANILLA PO SCH ×6 (08:03→20:37)
[2017-04-14] MEDS: CARVEDILOL 25 MG TAB PO SCH ×2 (08:04→20:39)
[2017-04-14] MEDS: MAGNESIUM OXIDE 400 MG TAB PO SCH (08:05)
[2017-04-14] MEDS: LISINOPRIL 5 MG TAB PO SCH (08:05)
[2017-04-14] MEDS: OMEGA-3 (PURIFIED FISH OIL) 1 GM CAP PO SCH (08:06)
[2017-04-14] MEDS: CLOPIDOGREL BISULFATE 75 MG TAB PO SCH (08:06)
[2017-04-14] MEDS: SERTRALINE HCL 50 MG TAB PO SCH (08:06)
[2017-04-14] MEDS: POTASSIUM CHLORIDE 10 MEQ TABCR PO SCH ×2 (08:07→15:56)
--- NOTE | 2017-04-14 14:43 | Progress Note ---
Subjective Date of Service: Apr 14, 2017. Subjective Pt evaluation today including: conversation w/ patient, physical exam, chart review, lab review, review of studies, review of inpatient medication list Pain: no pain reported Voiding: no voiding problems Pt is seen and examined by me. Pt sates her Sob improved and denies any sob at present. Pt denies cp, dizziness, palpitation and LOC. Pt denies fever, chills, rigors and sweats. Problem List Medical Problems: (1) Acute asthma exacerbation Status: Acute (2) Acute bronchitis Status: Acute (3) Anemia Status: Acute (4) CHF (congestive heart failure) Status: Acute (5) CHF (congestive heart failure) Status: Acute (6) CHF (congestive heart failure) Status: Acute (7) COPD (chronic obstructive pulmonary disease) Status: Acute (8) Elevated troponin Status: Acute (9) Hyponatremia Status: Acute (10) Hypoxia Status: Acute (11) Intractable nausea and vomiting Status: Acute (12) Mesenteric ischemia Status: Acute (13) Mesenteric ischemia Status: Acute (14) Nausea Status: Acute (15) Pulmonary edema Status: Acute (16) Pulmonary edema Status: Acute (17) Respiratory distress Status: Acute (18) SOB (shortness of breath) Status: Acute (19) Syncope Status: Acute Review of Systems All Other Systems: Reviewed and Negative Medications Medications (Trade) Dose Ordered Sig/Osmani Route Start Time Stop Time Status Last Admin Dose Admin Albuterol/ Ipratropium (Duoneb) 3 ml STK-MED ONCE .ROUTE 04/13/17 18:44 04/13/17 18:45 DC 04/13/17 18:47 3 ML Furosemide (Lasix Inj) 40 mg NOW STAT IV 04/13/17 18:51 04/13/17 18:54 DC 04/13/17 19:06 40 MG Lorazepam (Ativan Inj) 1 mg NOW STAT IV 04/13/17 19:01 04/13/17 19:02 DC 04/13/17 19:06 1 MG Aspirin (Ecotrin Tab) 81 mg QPM PO 04/13/17 21:00 05/13/17 20:59 04/13/17 22:33 81 MG Atorvastatin Calcium (Lipitor Tab) 80 mg HS PO 04/13/17 21:00 05/13/17 20:59 7/8/17 22:34 80 MG Carvedilol (Coreg Tab) 25 mg BID PO 04/13/17 21:00 05/13/17 20:59 04/14/17 08:04 25 MG Clopidogrel Bisulfate (plAVix TAB) 75 mg QAM PO 04/14/17 09:00 05/14/17 08:59 04/14/17 08:06 75 MG EZETIMIBE (Zetia Tab) 10 mg HS PO 04/13/17 21:00 05/13/17 20:59 04/13/17 22:33 10 MG Fish Oil ([place]-3 (Purified Fish Oil) Cap) 1 gm DAILY PO 04/14/17 09:00 05/14/17 08:59 04/14/17 08:06 1 GM Salmeterol Xinafoate/ Fluticasone (Advair Diskus 500/50 Inh) 1 puff BID INH 04/13/17 21:00 05/13/17 20:59 04/14/17 08:03 1 PUFF Lisinopril (Zestril Tab) 5 mg QAM PO 04/14/17 09:00 05/14/17 08:59 04/14/17 08:05 5 MG Magnesium Oxide (Mag-Ox Tab) 400 mg QAM PO 04/14/17 09:00 05/14/17 08:59 04/14/17 08:05 400 MG Potassium Chloride (Klor-Con M10) 10 meq BID17 PO 04/13/17 21:00 05/13/17 20:59 04/14/17 08:07 10 MEQ Pramipexole Dihydrochloride (miraPEX TAB) 0.25 mg HS PO 04/13/17 21:00 05/13/17 20:59 04/13/17 22:32 0.25 MG Sertraline HCl (Zoloft Tab) 50 mg QAM PO 04/14/17 09:00 05/14/17 08:59 04/14/17 08:06 50 MG Heparin Sodium (Porcine) (Heparin Sq 5000 Unit/0.5ml) 5,000 unit Q8 SQ 04/14/17 06:30 05/14/17 06:29 04/14/17 06:35 5,000 UNIT Furosemide 20 mg/ Syringe 2 ml @ 4 mls/min Q8H IV 04/14/17 06:00 05/14/17 05:59 04/14/17 13:38 4 MLS/MIN Albuterol Sulfate (Ventolin 0.083% 2.5MG/3ML Neb) 2.5 mg Q4H PRN INH 04/13/17 21:00 05/13/17 20:59 04/14/17 03:10 2.5 MG Albuterol/ Ipratropium (Duoneb) 3 ml Q8R INH 04/14/17 00:00 05/14/17 00:00 04/14/17 12:18 3 ML Objective Vital Signs Date Time Temp Pulse Resp B/P (MAP) Pulse Ox O2 Delivery O2 Flow Rate FiO2 04/14/17 12:18 82 20 97 Nasal Cannula 4.0 04/14/17 12:00 Nasal Cannula 4.0 04/14/17 11:42 36.4 79 20 93 Nasal Cannula 2.0 04/14/17 08:00 Nasal Cannula 2.0 04/14/17 07:26 36.5 83 20 134/70 (91) 95 Nasal Cannula 2.0 04/14/17 07:16 80 20 96 Nasal Cannula 4.0 04/14/17 04:00 Nasal Cannula 4.0 04/14/17 03:29 36.5 80 18 125/64 (84) 95 Nasal Cannula 3.5 04/14/17 03:10 82 28 95 Nasal Cannula 3.0 04/14/17 00:00 Nasal Cannula 3.0 04/13/17 23:40 36.5 96 22 144/72 (96) 93 Nasal Cannula 2.0 04/13/17 23:01 84 16 98 Nasal Cannula 3.0 04/13/17 21:45 36.4 91 20 134/56 (82) 95 Nasal Cannula 3.0 04/13/17 21:01 87 22 122/56 95 Nasal Cannula 4.0 04/13/17 20:59 94 Nasal Cannula 4.0 04/13/17 20:33 36.9 63 24 113/49 95 Nasal Cannula 4.0 04/13/17 20:30 88 24 125/54 95 BiPAP 04/13/17 20:00 85 24 113/49 97 BiPAP 04/13/17 19:35 102 34 146/73 97 BiPAP 04/13/17 19:17 95 BiPAP 04/13/17 19:17 95 BiPAP 04/13/17 19:14 63 98 30 04/13/17 19:01 96 BiPAP 04/13/17 18:49 90 04/13/17 18:35 36.9 105 32 152/84 87 Room Air Physical Exam General Appearance: no apparent distress Respiratory/Chest: lungs clear, normal breath sounds, no respiratory distress Cardiovascular: regular rate, rhythm, no edema, no JVD, no murmur Abdomen: normal bowel sounds, non tender, soft Neurologic/Psychiatric: alert, normal mood/affect, oriented x 3 Skin: no rash Laboratory Results Last 24 Hours Test 04/13/17 18:50 04/13/17 18:56 04/13/17 19:34 04/13/17 22:34 White Blood Count 9.78 K/uL Red Blood Count 4.16 M/uL Hemoglobin 12.9 g/dL Hematocrit 38.9 % Mean Corpuscular Volume 93.5 fL Mean Corpuscular Hemoglobin 31.0 pg Mean Corpuscular Hemoglobin Concent 33.2 g/dl Platelet Count 271 K/uL Mean Platelet Volume 9.0 fL Neutrophils (%) (Auto) 42.1 % Lymphocytes (%) (Auto) 40.4 % Monocytes (%) (Auto) 14.8 % Eosinophils (%) (Auto) 2.0 % Basophils (%) (Auto) 0.4 % Neutrophils # (Auto) 4.11 K/uL Lymphocytes # (Auto) 3.95 K/uL Monocytes # (Auto) 1.45 K/uL Eosinophils # (Auto) 0.20 K/uL Basophils # (Auto) 0.04 K/uL RDW Standard Deviation 58.1 fL RDW Coefficient of Variation 17.0 % Immature Granulocyte % (Auto) 0.3 % Immature Granulocyte # (Auto) 0.03 K/uL Sodium Level 136 mmol/L Potassium Level 4.0 mmol/L Chloride Level 98 mmol/L Carbon Dioxide Level 27 mmol/L Anion Gap 11.0 mmol/L Blood Urea Nitrogen 30 mg/dl Creatinine 1.20 mg/dl Est Creatinine Clear Calc Drug Dose 32.7 ml/min Estimated GFR () 52.3 Estimated GFR (Non- 45.1 BUN/Creatinine Ratio 24.7 Random Glucose 108 mg/dl Calcium Level 9.5 mg/dl Total Bilirubin 0.4 mg/dl Aspartate Amino Transf (AST/SGOT) 35 U/L Alanine Aminotransferase (ALT/SGPT) 41 U/L Alkaline Phosphatase 92 U/L Troponin I 0.038 ng/ml 0.038 ng/ml Total Protein 7.9 gm/dl Albumin 3.5 gm/dl Globulin 4.4 gm/dl Albumin/Globulin Ratio 0.8 Bedside Lactic Acid Venous 3.38 mmol/L Urine Color YELLOW Urine Appearance CLEAR Urine pH 6.5 Urine Specific [place] 1.013 Urine Protein NEG Urine Glucose (UA) NEG Urine Ketones NEG Urine Occult Blood NEG Urine Nitrite NEG Urine Bilirubin NEG Urine Urobilinogen NEG Urine Leukocyte Esterase NEG Test 04/14/17 04:44 04/14/17 05:24 04/14/17 11:41 Prothrombin Time 11.0 SECONDS Prothromb Time International Ratio 1.0 Troponin I 0.033 ng/ml Bedside Glucose 87 mg/dl Assessment and Plan 71 y/o F with complex med Hx including systolic CHF (25%), COPD, CAD, abdominal aortic stenosis with history of mesenteric infarct. She presented to the ER one month ago and was Life-flighted to [facility] as there was suspicion of ischemic bowel. She is scheduled for abdominal aortic stenting on 03/19. She presents with progressive SOB x 1 day and was exhibiting moderate respiratory distress on arrival to the ER. She was placed on BIPAP and provided with Lasix and albuterol which has lead to marked improvement. 1) SOB - acute respiratory distress consistent with CHF exacerbation - markedly improved with Lasix and BIPAP. Cont Lasix at 20mg Q8 to avoid overdiuresis -- NTG sparingly. -- If pts condition deteriorates we should consider transfer to [facility]. -- Cont Coreg, Lisinopril. -- Pt is doing well, we will observe and possible discharge home in am. 2) COPD - may be contributing - placed on scheduled Duonebs and Albuterol - cont Advair - will consider steroid use if she remains SOB following diuresis.Will consult pulmonary. 3) CAD - No current evidence of acute event - will obtain additional trop. EKG is nondiagnostic due to pacing. Cont Coreg, ASA, Statin - PRN NTG. 4) Mesenteric ischemia - scheduled for aortic stenting 03/19 - consider transfer prior if she has not fully recovered 5) HTN, HPL - cont Lisinopril, Coreg, Lipitor Full code - Heparin prophylaxis - total time for this admit including review of labs, meds, EKG - discussion with pt, daughter and ER attending - 39 min Continued [facility] stay due to: other Discharge planning: home
--- NOTE | 2017-04-14 19:34 | Pulmonary Consultation ---
History General Date of Service: Apr 14, 2017. Stated Complaint: Respiratory Distress HPI The patient is a 72 year old female who presents to [facility] with complaints of Respiratory Distress. The patient's primary care provider is RV. Edwards MD. 72-year-old female admitted for acute on chronic respiratory insufficiency. Patient has a past medical history significant for CHF(EF=25%), moderate obstructive ventilatory disease with an FEV1 of 65%, coronary artery disease, severe mitral regurgitation and chronic mesenteric ischemia. The patient was admitted last month [facility] following a syncopal episode which required EPS intervention for pacer/AICD lead misplacement. Patient then was noted to have abdominal was diagnosed with mesenteric ischemia. She is being evaluated by Dr. Elaine castle for mesenteric ischemia with possible angiographic/stent placements. She was doing well at home until the last 2-3 days when she noted increasing lower extremity edema as well as shortness of breath progressing to dyspnea at rest. She denies: Fever, chills, productive cough, pleurisy, classic cardiac chest pain LABS: WBC: 10 K (immature granulocytes: Elevated 0.03) H/H: 13/39 PLT: 270 1K INR: 1.0 PT: 11.0 Urine: 30 CR: 1.20 Troponin: 0.038, 0.038, 0.033 Lactic acid venous: 3.38H UA: Within normal limits EKG: Rate 68, ventricular paced, left bundle-branch block, biventricular pacer noted Cardiac Echo (02/17/17) LV: EF= 25-30%, systolic function severely reduced, but a wall and apex are akinetic RV: Systolic function mildly reduced, size within normal limits MV: Severe regurgitation RVSP: 30-40mmHg Radiology: CXR () compared to 03/14/17: Decreased penetration but notable resolution of the bilateral costophrenic blunting, continued hilar fullness with some peribronchial cuffing and cephalization no acute infiltrate noted Pulmonary function test 01/19/2009 Spirometry: FEV1 65% moderate obstructive ventilatory disease Bronchodilator: No significant response Lung volumes: RV/T% Diffusion: Moderately reduced at 42%, alveolar volume correction 59% Medications: #1 Plavix 75 mg daily #2 heparin subcutaneous 5000 units 3 times a day #3 Lasix 20 mg IV 3 times daily #4 DuoNeb Every 8 hours--this should be increased every 4 hours #5 aspirin 81 mg every day #6 Advair 500/50 one puff twice a day #7 Ventolin every 4 when necessary shortness of breath Historian: patient, EMS Review of Systems Constitutional: reports: weakness Eyes: reports: no symptoms ENT: reports: other (dry mouth ) Cardiovascular: reports: as stated in HPI Respiratory: reports: as stated in HPI Gastrointestinal: reports: no symptoms Genitourinary - Female: reports: no symptoms Musculoskeletal: reports: no symptoms Integumentary: reports: no symptoms Neurologic: reports: no symptoms Psychiatric: reports: anxiety Endocrine: no symptoms Allergic / Immunologic: no symptoms Past Medical History Past Medical History: History of Acute renal insufficiency Anemia Anxiety Arteriosclerosis of carotid artery Arteriosclerotic coronary artery disease Biventricular ICD CHF (congestive heart failure), NYHA class II (EF=30%) Chronic constipation Chronic kidney disease, stage II (mild) Moderate obstructive ventilatory disease Chronic reflux esophagitis Cough Current tobacco use Depression Mesenteric ischemia Diabetes mellitus Hyperlipidemia Hypertension Hyponatremia (secondary to prerenal) Implantable Cardioverter-Defibrillator Late CVD Effects: Speech And Language Deficit Left bundle-branch block Lymphadenopathy Mesenteric ischemia, chronic Mitral regurgitation PAD (peripheral artery disease) Restless legs syndrome Right carotid bruit Syncope Traumatic Retroperitoneal Past Surgical History: Carotid Thromboendarterectomy Cardioverter-Defibrillator Neuroplasty Decompression Median Nerve At Carpal Tunnel Total Abdominal Hysterectomy With Removal Of Both Ovaries Family History Diabetes mellitus FH: heart disease Hypertension Kidney disease Kidney stones Lung disease Acute Myocardial Infarction : Mother Acute Myocardial Infarction : Father Diabetes Mellitus : Sister Renal Disease : Sister Social History Alcohol Use Current Smoker Denied: History of Drug Use Denied: History of Exercising Regularly Marital History - Currently Retired From Work Uses Safety Equipment - Seatbelts Hx Tobacco Use In Past Year?: Yes ( 1pack per day) Smoking Status: Never Smoker Marital status: Housing status: lives with family Occupational Status: retired Immunizations History of Influenza Vaccine: Yes Influenza Vaccine Date: Oct 12, 2012 History of Tetanus Vaccine?: Unknown History of Pneumococcal: Unknown History of Hepatitis B Vaccine: No History of MDRO History of MDRO: No Allergies Coded Allergies: Sulfa Antibiotics (Verified Allergy, Intermediate, RASH, 04/13/17) Morphine (Verified Adverse Reaction, Severe, GI SYMPTOMS, 04/13/17) Current Medications Reported Home Medications Medications Dose Route/Sig Max Daily Dose Days Date Category Dose Instructions Boost (Nutritional Supplements) 1 Liq Liq 1 Can PO DIRECTED 04/13/17 Reported Proair Respiclick (Albuterol Sulfate) 108 Mcg/Act Aer 2 Puffs INH QID PRN 04/13/17 Reported Miralax (Polyethylene Glycol 3350) 1 Pow Pow 17 Gm PO DAILY 04/13/17 Reported Roxicodone Ir (Oxycodone HCl) 5 Mg Tab 5 Mg PO Q4H PRN 04/13/17 Reported Mag-Ox (Magnesium Oxide) 400 Mg Tab 400 Mg PO QAM 04/13/17 Reported Lisinopril 5 Mg Tab 5 Mg PO QAM 04/13/17 Reported Lasix (Furosemide) 40 Mg Tab 40 Mg PO QAM 04/13/17 Reported Kp Ferrous Sulfate (Ferrous Sulfate) 325 Mg Tab 325 Mg PO BID 30 04/13/17 Reported TAKE WITH GLASS OF ORANGE JUICE Xanax (Alprazolam) 0.5 Mg Tab 1.5 Mg PO Q6H PRN 04/13/17 Reported Micro-K Ext Rel (Potassium Chloride) 10 Meq Capcr 10 Meq PO BID 03/12/17 Reported Pramipexole Dihydrochlori (Pramipexole Dihydrochloride) 0.25 Mg Tab 1 Tab PO HS 03/07/17 Reported Advair Diskus 500/50 60 Dose (Fluticasone Prop/Salmeterol) 1 Ea Aerp 1 Puffs INH BID 03/07/17 Reported Tylenol (Acetaminophen) 500 Mg Tab 1,000 Mg PO Q6 PRN 03/07/17 Reported [place]-3 (Fish Oil) 1 Ea Cap 1 Cap PO DAILY 03/15/16 Reported Lipitor (Atorvastatin Calcium) 80 Mg Tab 80 Mg PO HS 05/07/13 Reported Aspirin Chewable (Aspirin) 81 Mg Chew 81 Mg PO QPM 05/07/13 Reported Coreg (Carvedilol) 25 Mg Tab 25 Mg PO BID 04/30/12 Reported Zoloft (Sertraline HCl) 50 Mg Tab 50 Mg PO QAM 02/21/12 Reported Plavix (Clopidogrel Bisulfate) 75 Mg Tab 75 Mg PO QAM 02/21/12 Reported Zetia (Ezetimibe) 10 Mg Tab 10 Mg PO HS 02/21/12 Reported Physical Physical Exam Vital Signs: Date Time Temp Pulse Resp B/P (MAP) Pulse Ox O2 Delivery O2 Flow Rate FiO2 04/14/17 16:00 Nasal Cannula 2.0 04/14/17 15:56 36.5 85 20 113/67 (82) 96 Nasal Cannula 4.0 04/14/17 15:13 81 16 98 Nasal Cannula 4.0 04/14/17 12:18 82 20 97 Nasal Cannula 4.0 04/14/17 12:00 Nasal Cannula 4.0 04/14/17 11:42 36.4 79 20 93 Nasal Cannula 2.0 04/14/17 08:00 Nasal Cannula 2.0 04/14/17 07:26 36.5 83 20 134/70 (91) 95 Nasal Cannula 2.0 04/14/17 07:16 80 20 96 Nasal Cannula 4.0 04/14/17 04:00 Nasal Cannula 4.0 04/14/17 03:29 36.5 80 18 125/64 (84) 95 Nasal Cannula 3.5 04/14/17 03:10 82 28 95 Nasal Cannula 3.0 04/14/17 00:00 Nasal Cannula 3.0 04/13/17 23:40 36.5 96 22 144/72 (96) 93 Nasal Cannula 2.0 04/13/17 23:01 84 16 98 Nasal Cannula 3.0 04/13/17 21:45 36.4 91 20 134/56 (82) 95 Nasal Cannula 3.0 04/13/17 21:01 87 22 122/56 95 Nasal Cannula 4.0 04/13/17 20:59 94 Nasal Cannula 4.0 04/13/17 20:33 36.9 63 24 113/49 95 Nasal Cannula 4.0 04/13/17 20:30 88 24 125/54 95 BiPAP 04/13/17 20:00 85 24 113/49 97 BiPAP 04/13/17 19:35 102 34 146/73 97 BiPAP General Appearance: thin Head: NORMOCEPHALIC, ATRAUMATIC Eyes: PERRLA, NO DISCHARGE, EOMI, SCLERAE NORMAL ENT: NORMAL EAR EXAM, NORMAL NASAL EXAM, NORMAL MOUTH EXAM, NORMAL THROAT EXAM , NORMAL DENTAL EXAM Neck: NORMAL RANGE OF MOTION, NO TENDERNESS, TRACHEA MIDLINE, NO STRIDOR, other (plus JVD) Respiratory: other (her minimal rhonchi is bilaterally with mild expiratory wheezing on auscultation/rustic ultrasound shows unilateral right-sided B-lines with no pleural effusions on either hemisphere) Cardiovasular: REGULAR RATE/RHYTHM, NORMAL S1S2, other (4-6 holosystolic murmur best appreciated over the cardiac apices) Abdomen: NON TENDER, NORMAL BOWEL SOUNDS, NO REBOUND, NO MASSES Genitourinary - Female: EXTERNAL GENITALIA NORMAL Back: NORMAL INSPECTION, NO MIDLINE TENDERNESS, NO CVA TENDERNESS, NO PARAVERTEBRAL TTP Upper Extremities: NO EDEMA, NO DEFORMITY, NORMAL ROM Lower Extremities: edema Edema: Bilateral LE (1+) Pulses: carotid (R) (1+), carotid (L) (1+), dorsalis pedis (R) (2+), dorsalis pedis (L) (2+) Neuro: ALERT, ORIENTED x 3, NORMAL MOTOR EXAM, NORMAL SENSATION, NORMAL CEREBELLAR EXAM Reflexes: biceps (R) (1+), bicpes (L) (1+), patellar (R) (1+), patellar (L) (1+ ) Babinski Testing: right (downgoing), left (downgoing) Psychiatric: NORMAL AFFECT, NO SUICIDAL IDEATION Diagnostics Labs Results Past 24 Hours Test 04/13/17 19:34 04/13/17 22:34 04/14/17 04:44 04/14/17 05:24 Range/Units Urine Color YELLOW Urine Appearance CLEAR CLEAR Urine pH 6.5 4.5-7.5 Urine Specific [place] 1.013 1.000-1.030 Urine Protein NEG NEG Urine Glucose (UA) NEG NEG Urine Ketones NEG NEG Urine Occult Blood NEG NEG Urine Nitrite NEG NEG Urine Bilirubin NEG NEG Urine Urobilinogen NEG NEG Urine Leukocyte Esterase NEG NEG Troponin I 0.038 0.033 0-0.045 ng/ml Prothrombin Time 11.0 9.0-12.0 SECONDS Prothromb Time International Ratio 1.0 0.9-1.1 Test 04/14/17 11:41 Range/Units Bedside Glucose 87 70-90 mg/dl Diagnostic Radiology CXR () compared to 03/14/17: Decreased penetration but notable resolution of the bilateral costophrenic blunting, continued hilar fullness with some peribronchial cuffing and cephalization no acute infiltrate noted EKG Rate 68, ventricular paced, left bundle-branch block, biventricular pacer noted Impression Assessment and Plan 72-year-old female with acute on chronic respiratory insufficiency: #1 Respiratory Insufficiency: At this summer believe the patient most likely had an acute onset of CHF. The thoracic ultrasound suggests the patient's mitral regurgitation is causing right greater than left CHF at this time. I would continue her diuresis as the patient is responded very well and notes she is almost back to her baseline. #2 COPD: At this time I would not introduce steroids into the patient's care as this may complicate her upcoming intervention. I will add Spiriva and continue her Advair and place her duo nebs on a when necessary basis.
[2017-04-14] MEDS: ATORVASTATIN 40 MG TAB PO SCH (20:38)
[2017-04-14] MEDS: EZETIMIBE 10MG TAB PO SCH (20:39)
[2017-04-14] MEDS: ASPIRIN 81 MG ECTAB PO SCH (20:39)
[2017-04-14] MEDS: PRAMIPEXOLE DIHYDROCHLORIDE 0.25MG TAB PO SCH (20:40)
[2017-04-15] VITALS (15 sets, daily range): BP systolic 95–124; BP diastolic 42–67; PULSE 73–86; TEMP 36.3–36.9; O2SAT 92–98
[2017-04-15] MEDS: FUROSEMIDE INJ 20 MG in SYRINGE 0 ML IV SCH ×3 (05:49→20:29)
[2017-04-15] MEDS: HEPARIN SOD 5000 UNIT/0.5 ML CARP SQ SCH ×3 (05:51→20:33)
[2017-04-15] MEDS: ALBUT/IPRATROP 3MG/0.5MG NEB 3 ML VIAL INH SCH ×3 (07:25→23:10)
[2017-04-15] MEDS: BOOST VANILLA PO SCH ×6 (09:00→20:15)
[2017-04-15] MEDS: TIOTROPIUM BROMIDE 5 PUFF/90 MCG INH INH SCH (09:04)
[2017-04-15] MEDS: FLUTICASONE/SALMETEROL (ADVAIR) 500/50 INH 14 PUFF INH SCH ×2 (09:04→20:14)
[2017-04-15] MEDS: CARVEDILOL 25 MG TAB PO SCH ×2 (09:10→20:30)
[2017-04-15] MEDS: SERTRALINE HCL 50 MG TAB PO SCH (09:10)
[2017-04-15] MEDS: CLOPIDOGREL BISULFATE 75 MG TAB PO SCH (09:10)
[2017-04-15] MEDS: LISINOPRIL 5 MG TAB PO SCH (09:11)
[2017-04-15] MEDS: MAGNESIUM OXIDE 400 MG TAB PO SCH (09:11)
[2017-04-15] MEDS: POTASSIUM CHLORIDE 10 MEQ TABCR PO SCH ×2 (09:11→17:58)
[2017-04-15] MEDS: OMEGA-3 (PURIFIED FISH OIL) 1 GM CAP PO SCH (09:11)
[2017-04-15 10:24] LABS: HEMATOCRIT 33.6 % (37-47); MEAN CELL VOLUME 93.1 fL (80-100); MEAN CORPUSCULAR HEMOGLOBIN 30.2 pg (25-34); MEAN CORPUSCULAR HGB CONC 32.4 g/dl (32-36); MEAN PLATELET VOLUME 8.6 fL (7.4-10.4); PLATELET COUNT 222 K/uL (130-400); RED BLOOD COUNT 3.61 M/uL (4.2-5.4); WHITE BLOOD COUNT 6.24 K/uL (4.8-10.8)
[2017-04-15 10:50] LABS: BUN/CREATININE RATIO 20.7 (10-20); CALCIUM 9.1 mg/dl (8.5-10.1); CREATININE 0.98 mg/dl (0.60-1.20); POTASSIUM 3.9 mmol/L (3.5-5.1)
--- NOTE | 2017-04-15 14:47 | Hospitalist Progress Note ---
Hospitalist Progress Note Date of Service Apr 15, 2017. (Hannah Caldwell ., VONNIEC) Subjective Pt evaluation today including: conversation w/ patient, chart review, lab review, review of inpatient medication list Pain: None PO Intake: Tolerating PO diet Voiding: mckeon catheter in place Patient complains of dyspnea on exertion, but she denies any shortness of breath at rest. She states that her breathing is still not back to baseline. She is still requiring supplemental oxygen, although she states she does not wear any oxygen at home. She also reports a non-productive cough and wheezing. A Mckeon catheter is in place. The patient denies fevers, chills, sweats, chest pain, palpitations, claudication, shortness of breath at rest, nausea, vomiting, abdominal pain, dysuria, hematuria, urinary retention, paralysis, weakness, numbness and tingling. Additional Comments: See HPI for pertinent positives and negatives. All other systems reviewed and negative. (Hannah Caldwell ., VONNIEC) Objective Vital Signs Date Time Temp Pulse Resp B/P (MAP) Pulse Ox O2 Delivery O2 Flow Rate FiO2 04/15/17 11:30 36.7 86 20 113/65 (81) 97 Nasal Cannula 2.0 04/15/17 08:59 83 107/55 (72) 93 Nasal Cannula 2.0 Humidified Oxygen 04/15/17 08:07 36.3 86 20 95/42 (59) 92 Nasal Cannula 2.0 04/15/17 08:00 94 Nasal Cannula 2.0 04/15/17 07:25 73 18 94 Nasal Cannula 4.0 04/15/17 04:00 93 Nasal Cannula 3.0 04/15/17 03:50 36.8 80 20 122/67 (85) 98 Nasal Cannula 3.0 04/14/17 23:59 93 Nasal Cannula 3.0 04/14/17 23:34 80 18 98 Nasal Cannula 4.0 04/14/17 23:16 36.7 80 18 107/60 (76) 94 Nasal Cannula 3.0 04/14/17 20:00 93 Nasal Cannula 3.0 04/14/17 19:27 36.5 85 20 112/56 (74) 93 Nasal Cannula 3.0 04/14/17 16:00 Nasal Cannula 2.0 04/14/17 15:56 36.5 85 20 113/67 (82) 96 Nasal Cannula 4.0 04/14/17 15:13 81 16 98 Nasal Cannula 4.0 (Hannah Caldwell .VONNIEC) Physical Exam Notes: General appearance: Well-developed, well-nourished, no apparent distress Head: Normocephalic, atraumatic Eyes: Normal inspection, PERRL, EOMI ENT: Normal ENT inspection, hearing grossly normal, pharynx normal Neck: Supple, no JVD, trachea midline Respiratory/Chest: +Diffuse wheezing throughout. Normal breath sounds, no respiratory distress Cardiovascular: Regular rate & rhythm, no gallop, no murmur Abdomen/GI: Normal bowel sounds, non-tender, soft Extremities/Musculoskeletal: Normal inspection, no calf tenderness, no pedal edema Neurological/Psych: Alert, normal mood/affect, oriented x 3 Skin: Normal color, warm/dry, no rash (Hannah Caldwell ., DANAE-C) Laboratory Results Last 24 Hours Test 04/15/17 09:56 04/15/17 10:37 White Blood Count 6.24 K/uL Red Blood Count 3.61 M/uL Hemoglobin 10.9 g/dL Hematocrit 33.6 % Mean Corpuscular Volume 93.1 fL Mean Corpuscular Hemoglobin 30.2 pg Mean Corpuscular Hemoglobin Concent 32.4 g/dl RDW Standard Deviation 56.8 fL RDW Coefficient of Variation 16.7 % Platelet Count 222 K/uL Mean Platelet Volume 8.6 fL Sodium Level 135 mmol/L Potassium Level 3.9 mmol/L Chloride Level 97 mmol/L Carbon Dioxide Level 33 mmol/L Anion Gap 5.0 mmol/L Blood Urea Nitrogen 20 mg/dl Creatinine 0.98 mg/dl Est Creatinine Clear Calc Drug Dose 38.7 ml/min Estimated GFR () 66.3 Estimated GFR (Non- 57.2 BUN/Creatinine Ratio 20.7 Random Glucose 86 mg/dl Calcium Level 9.1 mg/dl Bedside Glucose 87 mg/dl (Hannah Caldwell ., DANAE-C) Assessment and Plan 71 y/o female with a history of systolic CHF (25%), COPD, CAD, HTN, HLD, and abdominal aortic stenosis with history of mesenteric infarct who presents with progressive shortness of breath. Pt improved with Lasix and BIPAP. Acute on chronic systolic CHF, moderate respiratory distress--stable/improving -Admit to telemetry. No acute events overnight. Pt remained in paced rhythm with HR 70s-80s -U/O 3200 and net balance -2420 total on 04/14 -Continue Lasix 20 mg IV q8h -Daily weights -Strict I's & O's -Continue carvedilol 25 mg PO BID and lisinopril 5 mg PO qd COPD--stable, does not appear to be in acute exacerbation -Pulmonology consulted, appreciate recs: Continue diuresis with Lasix. Add Spiriva and continue nebulizers. No need for steroids now. -Continue Advair BID -Start Spiriva -Continue Duonebs CAD--stable -Troponin negative x 3 -Continue BB, ASA, statin HTN--stable. BP stable now but has been hypotensive/low normal -Continue Coreg and lisinopril as above HLD -Continue atorvastatin 80 mg PO qhs DVT prophylaxis -Heparin 5000 units SC q8h Code Status -Level I, FULL RESUSCITATION STATUS (Hannah Caldwell ., PA-C) I agree with PA assessment and plan and have seen and examined pt myself Resting comfortably in bed Reviewed vitals and labs Acute on chronic CHF exab COnt IV lasix Still needing more diuresis Cr improving COnt to monitor at this time (Donis Marx, D.O.)
--- NOTE | 2017-04-15 15:58 | Pulmonology Progress Note ---
Pulmonary Progress Note Date of Service Apr 15, 2017. Attending Dr. Tyson Subjective Patient is still dyspneic on exertion, but denies dyspnea at rest. Has sporadic cough and wheezing. Objective VS reviewed. Continues to be on 2-4L NC. SaO2 92-98% She is 2.4L negative in the last 24 hours. O/E: Gen: AAOx3, NAD, out of bed to chair HEENT: AT/NC, PERRL, EOMI, CVS: S1, S2, RRR Lungs: sporadic wheezes b/l lung english Abd: soft/NT/ND, BS+ Ext: trace edema, no cyanosis no clubbing Labs and imaging reviewed. CXR 04/13/2017-Worsening mild interstitial pulmonary edema. No evidence of focal pulmonary consolidation PFT- 01/19/2009 Spirometry: FEV1 65% moderate obstructive ventilatory disease Bronchodilator: No significant response Lung volumes: RV/T% Diffusion: Moderately reduced at 42%, alveolar volume correction 59% Pulmonary Meds: Spiriva, Albuterol, Advair 500/50, Assessment & Plan 72-year-old female with acute on chronic respiratory insufficiency: #1 Respiratory Insufficiency: Most likley secondary to acute on chronic systolic HF -c/w NC to maintain SaO2 >92% -c/w aggressive diuresis to maintain negative balance #2 COPD: -c/w Spiriva and Advair -c/w Duonebs prn -consider spiriva respimat as outpatient Data Medications: Current Inpatient Medications Medications (Trade) Dose Ordered Sig/Osmani Route Start Time Stop Time Status Last Admin Dose Admin Alprazolam (Xanax Tab) 1.5 mg Q6H PRN PO 04/13/17 20:30 05/13/17 20:29 Aspirin (Ecotrin Tab) 81 mg QPM PO 04/13/17 21:00 05/13/17 20:59 04/14/17 20:39 81 MG Atorvastatin Calcium (Lipitor Tab) 80 mg HS PO 04/13/17 21:00 05/13/17 20:59 04/14/17 20:38 80 MG Carvedilol (Coreg Tab) 25 mg BID PO 04/13/17 21:00 05/13/17 20:59 04/15/17 09:10 25 MG Clopidogrel Bisulfate (plAVix TAB) 75 mg QAM PO 04/14/17 09:00 05/14/17 08:59 04/15/17 09:10 75 MG EZETIMIBE (Zetia Tab) 10 mg HS PO 04/13/17 21:00 05/13/17 20:59 04/14/17 20:39 10 MG Fish Oil ([place]-3 (Purified Fish Oil) Cap) 1 gm DAILY PO 04/14/17 09:00 05/14/17 08:59 04/15/17 09:11 1 GM Salmeterol Xinafoate/ Fluticasone (Advair Diskus 500/50 Inh) 1 puff BID INH 04/13/17 21:00 05/13/17 20:59 04/15/17 09:04 1 PUFF Lisinopril (Zestril Tab) 5 mg QAM PO 04/14/17 09:00 05/14/17 08:59 04/15/17 09:11 5 MG Magnesium Oxide (Mag-Ox Tab) 400 mg QAM PO 04/14/17 09:00 05/14/17 08:59 04/15/17 09:11 400 MG Enteral Nutritional Formula (Boost) 1 can TID PO 04/14/17 09:00 05/14/17 08:59 Oxycodone HCl (Roxicodone Immediate Rel Tab) 5 mg Q4H PRN PO 04/13/17 20:30 04/27/17 20:29 Potassium Chloride (Klor-Con M10) 10 meq BID17 PO 04/13/17 21:00 05/13/17 20:59 04/15/17 09:11 10 MEQ Pramipexole Dihydrochloride (miraPEX TAB) 0.25 mg HS PO 04/13/17 21:00 05/13/17 20:59 04/14/17 20:40 0.25 MG Sertraline HCl (Zoloft Tab) 50 mg QAM PO 04/14/17 09:00 05/14/17 08:59 04/15/17 09:10 50 MG Heparin Sodium (Porcine) (Heparin Sq 5000 Unit/0.5ml) 5,000 unit Q8 SQ 04/14/17 06:30 05/14/17 06:29 04/15/17 14:16 5,000 UNIT Acetaminophen (Tylenol Tab) 650 mg Q4H PRN PO 04/13/17 20:30 05/13/17 20:29 04/14/17 16:40 650 MG Al Hydrox/Mg Hydrox/Simethicone (Maalox Max Susp) 15 ml Q4H PRN PO 04/13/17 20:30 05/13/17 20:29 Magnesium Hydroxide (Milk Of Magnesia Susp) 30 ml Q12H PRN PO 04/13/17 20:30 05/13/17 20:29 Ondansetron HCl (Zofran Inj) 4 mg Q6H PRN IV 04/13/17 20:30 05/13/17 20:29 Polyethylene (Miralax Powder Packet) 17 gm DAILY PRN PO 04/13/17 20:30 05/13/17 20:29 04/14/17 17:19 17 GM Furosemide 20 mg/ Syringe 2 ml @ 4 mls/min Q8H IV 04/14/17 06:00 05/14/17 05:59 04/15/17 14:14 4 MLS/MIN Albuterol Sulfate (Ventolin 0.083% 2.5MG/3ML Neb) 2.5 mg Q4H PRN INH 04/13/17 21:00 05/13/17 20:59 04/14/17 03:10 2.5 MG Albuterol/ Ipratropium (Duoneb) 3 ml Q8R INH 04/14/17 00:00 05/14/17 00:00 04/15/17 15:35 3 ML Tiotropium [place] (Spiriva Handihaler Inhaler) 1 puff QAM INH 04/15/17 09:00 05/15/17 08:59 04/15/17 09:04 1 PUFF I & O: 24-Hour Column 04/16/17 08:00 Intake Total 400 ml Output Total 550 ml Balance -150 ml Vital Signs: Date Time Temp Pulse Resp B/P (MAP) Pulse Ox O2 Delivery O2 Flow Rate FiO2 04/15/17 12:00 97 Nasal Cannula 2.0 04/15/17 11:30 36.7 86 20 113/65 (81) 97 Nasal Cannula 2.0 04/15/17 08:59 83 107/55 (72) 93 Nasal Cannula 2.0 Humidified Oxygen 04/15/17 08:07 36.3 86 20 95/42 (59) 92 Nasal Cannula 2.0 04/15/17 08:00 94 Nasal Cannula 2.0 04/15/17 07:25 73 18 94 Nasal Cannula 4.0 04/15/17 04:00 93 Nasal Cannula 3.0 04/15/17 03:50 36.8 80 20 122/67 (85) 98 Nasal Cannula 3.0 04/14/17 23:59 93 Nasal Cannula 3.0 04/14/17 23:34 80 18 98 Nasal Cannula 4.0 04/14/17 23:16 36.7 80 18 107/60 (76) 94 Nasal Cannula 3.0 04/14/17 20:00 93 Nasal Cannula 3.0 04/14/17 19:27 36.5 85 20 112/56 (74) 93 Nasal Cannula 3.0 04/14/17 16:00 Nasal Cannula 2.0 04/14/17 15:56 36.5 85 20 113/67 (82) 96 Nasal Cannula 4.0 Laboratory Results: Last 24 Hours Test 04/15/17 09:56 04/15/17 10:37 White Blood Count 6.24 K/uL Red Blood Count 3.61 M/uL Hemoglobin 10.9 g/dL Hematocrit 33.6 % Mean Corpuscular Volume 93.1 fL Mean Corpuscular Hemoglobin 30.2 pg Mean Corpuscular Hemoglobin Concent 32.4 g/dl RDW Standard Deviation 56.8 fL RDW Coefficient of Variation 16.7 % Platelet Count 222 K/uL Mean Platelet Volume 8.6 fL Sodium Level 135 mmol/L Potassium Level 3.9 mmol/L Chloride Level 97 mmol/L Carbon Dioxide Level 33 mmol/L Anion Gap 5.0 mmol/L Blood Urea Nitrogen 20 mg/dl Creatinine 0.98 mg/dl Est Creatinine Clear Calc Drug Dose 38.7 ml/min Estimated GFR () 66.3 Estimated GFR (Non- 57.2 BUN/Creatinine Ratio 20.7 Random Glucose 86 mg/dl Calcium Level 9.1 mg/dl Bedside Glucose 87 mg/dl
[2017-04-15] MEDS: ASPIRIN 81 MG ECTAB PO SCH (20:29)
[2017-04-15] MEDS: ATORVASTATIN 40 MG TAB PO SCH (20:29)
[2017-04-15] MEDS: EZETIMIBE 10MG TAB PO SCH (20:29)
[2017-04-15] MEDS: PRAMIPEXOLE DIHYDROCHLORIDE 0.25MG TAB PO SCH (20:30)
[2017-04-16] VITALS (14 sets, daily range): BP systolic 109–129; BP diastolic 52–78; PULSE 74–84; TEMP 36.5–36.8; O2SAT 92–95
[2017-04-16] MEDS: FUROSEMIDE INJ 20 MG in SYRINGE 0 ML IV SCH ×2 (05:43→13:44)
[2017-04-16] MEDS: HEPARIN SOD 5000 UNIT/0.5 ML CARP SQ SCH ×3 (05:44→20:10)
[2017-04-16] MEDS: ALBUT/IPRATROP 3MG/0.5MG NEB 3 ML VIAL INH SCH ×3 (07:22→23:02)
[2017-04-16] MEDS: BOOST VANILLA PO SCH ×8 (07:40→20:36)
[2017-04-16] MEDS: TIOTROPIUM BROMIDE 5 PUFF/90 MCG INH INH SCH (07:40)
[2017-04-16] MEDS: FLUTICASONE/SALMETEROL (ADVAIR) 500/50 INH 14 PUFF INH SCH ×2 (07:40→20:05)
[2017-04-16] MEDS: POTASSIUM CHLORIDE 10 MEQ TABCR PO SCH ×2 (07:41→16:45)
[2017-04-16] MEDS: MAGNESIUM OXIDE 400 MG TAB PO SCH (07:41)
[2017-04-16] MEDS: CARVEDILOL 25 MG TAB PO SCH ×2 (07:41→20:06)
[2017-04-16] MEDS: OMEGA-3 (PURIFIED FISH OIL) 1 GM CAP PO SCH (07:41)
[2017-04-16] MEDS: LISINOPRIL 5 MG TAB PO SCH (07:42)
[2017-04-16] MEDS: SERTRALINE HCL 50 MG TAB PO SCH (07:42)
[2017-04-16] MEDS: CLOPIDOGREL BISULFATE 75 MG TAB PO SCH (07:42)
[2017-04-16 07:51] LABS: HEMATOCRIT 34.5 % (37-47); MEAN CORPUSCULAR HEMOGLOBIN 30.9 pg (25-34); MEAN CORPUSCULAR HGB CONC 33.6 g/dl (32-36); MEAN PLATELET VOLUME 8.5 fL (7.4-10.4); PLATELET COUNT 228 K/uL (130-400); RED BLOOD COUNT 3.75 M/uL (4.2-5.4)
[2017-04-16 08:19] LABS: BUN/CREATININE RATIO 21.3 (10-20); CALCIUM 9.3 mg/dl (8.5-10.1); POTASSIUM 3.9 mmol/L (3.5-5.1)
--- NOTE | 2017-04-16 14:41 | Hospitalist Progress Note ---
Hospitalist Progress Note Date of Service Apr 16, 2017. (Hannah Caldwell ., VONNIEC) Subjective Pt evaluation today including: conversation w/ patient, physical exam, chart review, lab review, review of inpatient medication list Pain: None PO Intake: Tolerating PO diet Voiding: mckeon catheter in place Patient reports feeling well. She still complains of dyspnea on exertion but states that it is somewhat better than yesterday. She denies any wheezing or shortness of breath at rest. She does note a non-productive cough. The patient denies fevers, chills, sweats, chest pain, palpitations, claudication, cough, wheezing, shortness of breath at rest, nausea, vomiting, abdominal pain, dysuria, hematuria, urinary retention, paralysis, weakness, numbness and tingling. Additional Comments: See HPI for pertinent positives and negatives. All other systems reviewed and negative. (Hannah Caldwell ., DANAE-C) Objective Vital Signs Date Time Temp Pulse Resp B/P (MAP) Pulse Ox O2 Delivery O2 Flow Rate FiO2 04/16/17 12:00 Nasal Cannula 2.0 04/16/17 11:33 36.6 74 20 120/76 (91) 95 Room Air 04/16/17 11:32 36.6 78 20 116/64 (81) 94 Nasal Cannula 2.0 04/16/17 08:00 95 Nasal Cannula 2.0 04/16/17 07:25 74 16 93 Nasal Cannula 2.0 04/16/17 07:18 36.6 80 20 129/64 (85) 95 Nasal Cannula 2.0 04/16/17 04:00 95 Nasal Cannula 2.0 04/16/17 03:46 36.5 80 18 126/65 (85) 92 Nasal Cannula 2.0 04/15/17 23:59 95 Nasal Cannula 2.0 04/15/17 23:50 36.9 84 19 117/61 (79) 95 Nasal Cannula 2.0 04/15/17 23:10 83 16 95 Nasal Cannula 2.0 04/15/17 20:00 95 Nasal Cannula 2.0 04/15/17 19:40 36.7 86 20 110/53 (72) 95 Nasal Cannula 2.0 04/15/17 16:00 Nasal Cannula 2.0 04/15/17 15:58 86 16 94 Nasal Cannula 4.0 04/15/17 15:46 36.5 86 20 124/61 (82) 92 Nasal Cannula 2.0 (Hannah Caldwell PA-C) Physical Exam Notes: General appearance: Well-developed, well-nourished, no apparent distress Head: Normocephalic, atraumatic Eyes: Normal inspection, PERRL, EOMI ENT: Normal ENT inspection, hearing grossly normal, pharynx normal Neck: Supple, no JVD, trachea midline Respiratory/Chest: +Diffuse wheezing improved. Normal breath sounds, no respiratory distress Cardiovascular: Regular rate & rhythm, no gallop, no murmur Abdomen/GI: Normal bowel sounds, non-tender, soft Extremities/Musculoskeletal: Normal inspection, no calf tenderness, no pedal edema Neurological/Psych: Alert, normal mood/affect, oriented x 3 Skin: Normal color, warm/dry, no rash (Hannah Caldwell ., DANAE-C) Laboratory Results Last 24 Hours Test 04/16/17 07:33 White Blood Count 6.40 K/uL Red Blood Count 3.75 M/uL Hemoglobin 11.6 g/dL Hematocrit 34.5 % Mean Corpuscular Volume 92.0 fL Mean Corpuscular Hemoglobin 30.9 pg Mean Corpuscular Hemoglobin Concent 33.6 g/dl RDW Standard Deviation 56.2 fL RDW Coefficient of Variation 16.6 % Platelet Count 228 K/uL Mean Platelet Volume 8.5 fL Sodium Level 136 mmol/L Potassium Level 3.9 mmol/L Chloride Level 97 mmol/L Carbon Dioxide Level 33 mmol/L Anion Gap 6.0 mmol/L Blood Urea Nitrogen 21 mg/dl Creatinine 1.00 mg/dl Est Creatinine Clear Calc Drug Dose 37.0 ml/min Estimated GFR () 64.7 Estimated GFR (Non- 55.8 BUN/Creatinine Ratio 21.3 Random Glucose 92 mg/dl Calcium Level 9.3 mg/dl (Hannah Caldwell ., PA-C) Assessment and Plan 71 y/o female with a history of systolic CHF (25%), COPD, CAD, HTN, HLD, and abdominal aortic stenosis with history of mesenteric infarct who presents with progressive shortness of breath. Pt improved with Lasix and BIPAP. Acute on chronic systolic CHF, moderate respiratory distress--stable/improving -Admit to telemetry. No acute events overnight. Pt remained in paced rhythm with HR in 80s -U/O 2150 and net balance -1075 total on 04/15 -D/C IV Lasix -Lasix 40 mg PO BID starting tomorrow. Will d/c on home Lasix 40 mg PO qd, with additional 20 mg in afternoon as needed for weight gain -Daily weights -Strict I's & O's -Continue carvedilol 25 mg PO BID and lisinopril 5 mg PO qd COPD--stable, does not appear to be in acute exacerbation -Pulmonology consulted, appreciate recs: Continue diuresis with Lasix. Add Spiriva and continue nebulizers. No need for steroids now. -Continue Advair BID -Start Spiriva -Continue Duonebs CAD--stable -Troponin negative x 3 -Continue BB, ASA, statin HTN--stable. BP stable now but has been hypotensive/low normal -Continue Coreg and lisinopril as above HLD -Continue atorvastatin 80 mg PO qhs DVT prophylaxis -Heparin 5000 units SC q8h Code Status -Level I, FULL RESUSCITATION STATUS (Hannah Caldwell ., PA-C) I agree with PA assessment and plan and have seen and examined pt myself Resting comfortably in bed No complaints noted No edema Can convert IV lasix to PO lasix starting tomorrow Lungs: Dec BS BL lung bases Likely DC in next 24 hrs (Donis Marx, D.O.)
[2017-04-16] MEDS: PRAMIPEXOLE DIHYDROCHLORIDE 0.25MG TAB PO SCH (20:06)
[2017-04-16] MEDS: ASPIRIN 81 MG ECTAB PO SCH (20:06)
[2017-04-16] MEDS: ATORVASTATIN 40 MG TAB PO SCH (20:07)
[2017-04-16] MEDS: EZETIMIBE 10MG TAB PO SCH (20:07)
--- NOTE | 2017-04-16 20:42 | Pulmonology Progress Note ---
Pulmonary Progress Note Date of Service Apr 16, 2017. Attending Dr. Tyson Objective VS reviewed. Continues to be on 2L NC. SaO2 92-95% She is 4.5 L negative since admission O/E: Gen: AAOx3, NAD, out of bed to chair HEENT: AT/NC, PERRL, EOMI, CVS: S1, S2, RRR Lungs: CTA b/l lung english Abd: soft/NT/ND, BS+ Ext: trace edema, no cyanosis no clubbing Labs and imaging reviewed. CXR 04/13/2017-Worsening mild interstitial pulmonary edema. No evidence of focal pulmonary consolidation PFT- 01/19/2009 Spirometry: FEV1 65% moderate obstructive ventilatory disease Bronchodilator: No significant response Lung volumes: RV/T% Diffusion: Moderately reduced at 42%, alveolar volume correction 59% Pulmonary Meds: Spiriva, Albuterol, Advair 500/50, Duoneb prn, lasix Assessment & Plan 72-year-old female with acute on chronic respiratory insufficiency: #1 Respiratory Insufficiency: Most likley secondary to acute on chronic systolic HF -c/w NC to maintain SaO2 >92% -c/w aggressive diuresis to maintain negative balance -consider discharging home on LTOT -She should follow up with pulmonary as outpatient. Prior to stent placement. #2 COPD: -c/w Spiriva and Advair -c/w Duonebs prn -consider spiriva respimat as outpatient Will sign off today. Please reconsult if needed. Data Medications: Current Inpatient Medications Medications (Trade) Dose Ordered Sig/Osmani Route Start Time Stop Time Status Last Admin Dose Admin Alprazolam (Xanax Tab) 1.5 mg Q6H PRN PO 04/13/17 20:30 05/13/17 20:29 Aspirin (Ecotrin Tab) 81 mg QPM PO 04/13/17 21:00 05/13/17 20:59 04/16/17 20:06 81 MG Atorvastatin Calcium (Lipitor Tab) 80 mg HS PO 04/13/17 21:00 05/13/17 20:59 04/16/17 20:07 80 MG Carvedilol (Coreg Tab) 25 mg BID PO 04/13/17 21:00 05/13/17 20:59 04/16/17 20:06 25 MG Clopidogrel Bisulfate (plAVix TAB) 75 mg QAM PO 04/14/17 09:00 05/14/17 08:59 04/16/17 07:42 75 MG EZETIMIBE (Zetia Tab) 10 mg HS PO 04/13/17 21:00 05/13/17 20:59 04/16/17 20:07 10 MG Fish Oil ([place]-3 (Purified Fish Oil) Cap) 1 gm DAILY PO 04/14/17 09:00 05/14/17 08:59 04/16/17 07:41 1 GM Salmeterol Xinafoate/ Fluticasone (Advair Diskus 500/50 Inh) 1 puff BID INH 04/13/17 21:00 05/13/17 20:59 04/16/17 20:05 1 PUFF Lisinopril (Zestril Tab) 5 mg QAM PO 04/14/17 09:00 05/14/17 08:59 04/16/17 07:42 5 MG Magnesium Oxide (Mag-Ox Tab) 400 mg QAM PO 04/14/17 09:00 05/14/17 08:59 04/16/17 07:41 400 MG Enteral Nutritional Formula (Boost) 1 can TID PO 04/14/17 09:00 05/14/17 08:59 Oxycodone HCl (Roxicodone Immediate Rel Tab) 5 mg Q4H PRN PO 04/13/17 20:30 04/27/17 20:29 Potassium Chloride (Klor-Con M10) 10 meq BID17 PO 04/13/17 21:00 05/13/17 20:59 04/16/17 16:45 10 MEQ Pramipexole Dihydrochloride (miraPEX TAB) 0.25 mg HS PO 04/13/17 21:00 05/13/17 20:59 04/16/17 20:06 0.25 MG Sertraline HCl (Zoloft Tab) 50 mg QAM PO 04/14/17 09:00 05/14/17 08:59 04/16/17 07:42 50 MG Heparin Sodium (Porcine) (Heparin Sq 5000 Unit/0.5ml) 5,000 unit Q8 SQ 04/14/17 06:30 05/14/17 06:29 04/16/17 20:10 5,000 UNIT Acetaminophen (Tylenol Tab) 650 mg Q4H PRN PO 04/13/17 20:30 05/13/17 20:29 04/14/17 16:40 650 MG Al Hydrox/Mg Hydrox/Simethicone (Maalox Max Susp) 15 ml Q4H PRN PO 04/13/17 20:30 05/13/17 20:29 Magnesium Hydroxide (Milk Of Magnesia Susp) 30 ml Q12H PRN PO 04/13/17 20:30 05/13/17 20:29 Ondansetron HCl (Zofran Inj) 4 mg Q6H PRN IV 04/13/17 20:30 05/13/17 20:29 Polyethylene (Miralax Powder Packet) 17 gm DAILY PRN PO 04/13/17 20:30 05/13/17 20:29 04/14/17 17:19 17 GM Albuterol Sulfate (Ventolin 0.083% 2.5MG/3ML Neb) 2.5 mg Q4H PRN INH 04/13/17 21:00 05/13/17 20:59 04/14/17 03:10 2.5 MG Albuterol/ Ipratropium (Duoneb) 3 ml Q8R INH 04/14/17 00:00 05/14/17 00:00 04/16/17 15:34 3 ML Tiotropium [place] (Spiriva Handihaler Inhaler) 1 puff QAM INH 04/15/17 09:00 05/15/17 08:59 04/16/17 07:40 1 PUFF Furosemide (Lasix Tab) 40 mg BID17 PO 04/17/17 09:00 05/17/17 08:59 I & O: 24-Hour Column 04/17/17 07:59 Intake Total 600 ml Output Total 1100 ml Balance -500 ml Vital Signs: Date Time Temp Pulse Resp B/P (MAP) Pulse Ox O2 Delivery O2 Flow Rate FiO2 04/16/17 19:58 36.6 84 16 109/52 (71) 92 Nasal Cannula 04/16/17 16:00 Nasal Cannula 2.0 04/16/17 15:49 36.6 80 16 117/78 (91) 94 Nasal Cannula 04/16/17 15:34 79 16 94 Nasal Cannula 2.0 04/16/17 12:00 Nasal Cannula 2.0 04/16/17 11:33 36.6 74 20 120/76 (91) 95 Room Air 04/16/17 11:32 36.6 78 20 116/64 (81) 94 Nasal Cannula 2.0 04/16/17 08:00 95 Nasal Cannula 2.0 04/16/17 07:25 74 16 93 Nasal Cannula 2.0 04/16/17 07:18 36.6 80 20 129/64 (85) 95 Nasal Cannula 2.0 04/16/17 04:00 95 Nasal Cannula 2.0 04/16/17 03:46 36.5 80 18 126/65 (85) 92 Nasal Cannula 2.0 04/15/17 23:59 95 Nasal Cannula 2.0 04/15/17 23:50 36.9 84 19 117/61 (79) 95 Nasal Cannula 2.0 04/15/17 23:10 83 16 95 Nasal Cannula 2.0 Laboratory Results: Last 24 Hours Test 04/16/17 07:33 White Blood Count 6.40 K/uL Red Blood Count 3.75 M/uL Hemoglobin 11.6 g/dL Hematocrit 34.5 % Mean Corpuscular Volume 92.0 fL Mean Corpuscular Hemoglobin 30.9 pg Mean Corpuscular Hemoglobin Concent 33.6 g/dl RDW Standard Deviation 56.2 fL RDW Coefficient of Variation 16.6 % Platelet Count 228 K/uL Mean Platelet Volume 8.5 fL Sodium Level 136 mmol/L Potassium Level 3.9 mmol/L Chloride Level 97 mmol/L Carbon Dioxide Level 33 mmol/L Anion Gap 6.0 mmol/L Blood Urea Nitrogen 21 mg/dl Creatinine 1.00 mg/dl Est Creatinine Clear Calc Drug Dose 37.0 ml/min Estimated GFR () 64.7 Estimated GFR (Non- 55.8 BUN/Creatinine Ratio 21.3 Random Glucose 92 mg/dl Calcium Level 9.3 mg/dl
[2017-04-17 03:13] VITALS: BP 127/70; PULSE 83; TEMP 36.8; O2SAT 96
[2017-04-17 04:00] VITALS: O2SAT 92
[2017-04-17] MEDS: HEPARIN SOD 5000 UNIT/0.5 ML CARP SQ SCH ×2 (05:57→14:00)
[2017-04-17 07:09] VITALS: PULSE 77; O2SAT 91
[2017-04-17] MEDS: ALBUT/IPRATROP 3MG/0.5MG NEB 3 ML VIAL INH SCH (07:09)
[2017-04-17 07:21] VITALS: BP 112/55; PULSE 76; TEMP 36.5; O2SAT 90
[2017-04-17 07:44] LABS: BUN/CREATININE RATIO 23.6 (10-20); CALCIUM 9.1 mg/dl (8.5-10.1); CREATININE 0.98 mg/dl (0.60-1.20); POTASSIUM 4.2 mmol/L (3.5-5.1)
[2017-04-17] MEDS: TIOTROPIUM BROMIDE 5 PUFF/90 MCG INH INH SCH (08:00)
[2017-04-17] MEDS: FLUTICASONE/SALMETEROL (ADVAIR) 500/50 INH 14 PUFF INH SCH (08:00)
[2017-04-17] MEDS: MAGNESIUM OXIDE 400 MG TAB PO SCH (08:01)
[2017-04-17] MEDS: CLOPIDOGREL BISULFATE 75 MG TAB PO SCH (08:02)
[2017-04-17] MEDS: LISINOPRIL 5 MG TAB PO SCH (08:02)
[2017-04-17] MEDS: OMEGA-3 (PURIFIED FISH OIL) 1 GM CAP PO SCH (08:02)
[2017-04-17] MEDS: POTASSIUM CHLORIDE 10 MEQ TABCR PO SCH (08:02)
[2017-04-17] MEDS: CARVEDILOL 25 MG TAB PO SCH (08:03)
[2017-04-17] MEDS: SERTRALINE HCL 50 MG TAB PO SCH (08:03)
[2017-04-17] MEDS ORDERED: FUROSEMIDE 40 MG TAB PO SCH (09:00)
[2017-04-17 11:21] VITALS: BP 103/56; PULSE 76; TEMP 36.3; O2SAT 90
[2017-04-17] MEDS ORDERED: FRS/40 PO (11:21)
[2017-04-17] MEDS ORDERED: SPRIN INH (11:21)
--- NOTE | 2017-04-17 11:32 | Discharge Instructions ---
Discharge Instructions Date of Service Apr 17, 2017. Admission Reason for Admission: Respiratory Distress Discharge Discharge Diagnosis / Problem: Acute on chronic systolic congestive heart failure Discharge Goals Goal(s): Decrease discomfort, Improve function, Diagnostic testing, Therapeutic intervention Activity Recommendations Activity Limitations: resume your previous activity (as tolerated) . Instructions / Follow-Up Instructions / Follow-Up You were admitted to the hospital with worsening shortness of breath and respiratory distress. You were found to have an acute exacerbation of your chronic systolic congestive heart failure. You were treated with IV Lasix and breathing treatments. In addition to your home Advair, a new medication called Spiriva was added by pulmonology (lung specialists). As your breathing has improved and you appear to be complete with diuresis, you are now stable to be discharged to home. Based on respiratory testing, you qualify for supplemental oxygen at home as well. Medications: *Please take Spiriva once a day in addition to your Advair. *Please take Lasix (furosemide) 40 mg by mouth daily. You may take an additional 20 mg (half of a tablet) in the afternoon as needed for weight gain of 2-3 pounds. *Continue your other home medications as prescribed. Follow up: *You have been scheduled to follow up at your primary care provider's office with Brenda Haque PA-C on April 24 at 9:00 am regarding your hospital stay and changes to your medications. *You have also been scheduled to follow up with pulmonology with VONNIE Rosales on May 02 at 9:00 am. Please seek medical attention if you experience fevers, chills, sweats, chest pain, shortness of breath, nausea, vomiting, numbness or tingling. Call your Primary Care doctor if any of the following symptoms or problems start or get worse: * Shortness of breath or difficulty breathing * Wake up at night short of breath * Chest pain * Cough * Swelling of your hands, feet, or legs * More fatigued or tired with your normal activity * Palpitations - sudden fast heart beats WEIGHT * Weigh yourself every morning after using the bathroom. * Use the same scale. * Wear the same amount of clothing. * Write your weight down on a chart. * Call your Primary Care doctor if you gain more than 2-3 pounds in 1-2 days. MEDICATIONS * Use this discharge instruction sheet for medication instructions. * Take your medications at the time your doctor ordered. * Do not skip a dose of your medicines. * If you miss a dose of medicine, take it as soon as possible, but DO NOT DOUBLE A DOSE. * Read your medicine information when you get home. * Know all of the side effects of your medicine. If in doubt, ask your pharmacist * Call your Primary Care doctor's office if you have any side effects. * Be sure all of your doctors know what medicine and herbs you take (including cold, flu, and herbal medicine). Take the following with you to your follow-up doctor appointments: * Weight Chart * Medication List * List of questions Do not drink excessive alcohol, beer or wine. Current Hospital Diet Patient's current hospital diet: Regular Diet Discharge Diet Recommended Diet: AHA Diet (Heart Healthy), Low Sodium Diet (2gm Na) Pending Studies Studies pending at discharge: no Laboratory Results Hemoglobin A1c Test 02/17/17 07:06 Range/Units Estimated Average Glucose 131 mg/dl Hemoglobin A1c 6.2 H 4.5-5.6 % Lipid Panel Test 01/30/17 13:22 Range/Units Triglycerides Level 59 0-150 mg/dl Cholesterol Level 99 0-200 mg/dl HDL Cholesterol 60 mg/dl Cholesterol/HDL Ratio 1.7 LDL Cholesterol, Calculated 27 mg/dl Medical Emergencies . Who to Call and When: Call 911 or go to the Emergency Room if: * If at any time you feel your situation is an emergency * You have tightness or pain in your chest that does not go away with rest or Nitroglycerin * You are very short of breath even with rest . Non-Emergent Contact Non-Emergency issues call your: Primary Care Provider, [employer] Call Non-Emergent contact if: you have a fever, you have any medication questions . Past History Medical & Surgical History: (1) Acute on chronic systolic (congestive) heart failure . "Provider Documentation" section prepared by Hannah Caldwell. . VTE Core Measure Inpt VTE Proph given/why not?: Unfractionated heparin SQ
[2017-04-17 11:50] VITALS: BP 103/56; PULSE 76; TEMP 36.3; O2SAT 90
[2017-04-17] MEDS: BOOST VANILLA PO SCH ×2 (14:00)
--- NOTE | 2017-04-17 15:02 | Discharge Summary ---
Discharge Summary Date of Service Apr 17, 2017. (Hannah Caldwell .KEN) Discharge Summary Admission Date: Apr 13, 2017 at 20:31 Discharge Date: Apr 17, 2017 Discharge Disposition: Home Principal Diagnosis: Acute on chronic systolic CHF Immunizations: Have You Had Influenza Vaccine: Yes Influenza Vaccine Date: Oct 12, 2012 History of Tetanus Vaccine?: Unknown History of Pneumococcal: Unknown History of Hepatitis B Vaccine: No Procedures: CHEST ONE VIEW PORTABLE CLINICAL HISTORY: Shortness of breath COMPARISON STUDY: 03/20/2017 FINDINGS: The heart is mildly enlarged. There is a left-sided pacer/defibrillator present. There is mild interstitial edema. There is no focal pulmonary consolidation. There are no significant pleural effusions.[ IMPRESSION: Worsening mild interstitial pulmonary edema. No evidence of focal pulmonary consolidation Consultations: Pulmonology--Dr. Samuel/Dr. Tyson (Hannah Caldwell, VONNIEC) Medication Reconciliation New Medications: Tiotropium Varney (Spiriva Handihaler) 5 Puff/90 Mcg Aerp 1 PUFF INH QAM for 30 Days, #30 DOSE Changed Medications: Furosemide (Lasix) 40 Mg Tab 40 MG PO UD for 30 Days, #45 TAB (Changed from: QAM) Take 40 mg daily. You may take an additional 20 mg (half tablet) in the afternoon as needed for weight gain of 2-3 pounds. Continued Medications: Acetaminophen (Tylenol) 500 Mg Tab 1000 MG PO Q6 PRN for Headache, TAB Albuterol Sulfate (Proair Respiclick) 108 Mcg/Act Aer 2 PUFFS INH QID PRN for Wheezing Alprazolam (Xanax) 0.5 Mg Tab 1.5 MG PO Q6H PRN for Anxiety/Agitation, TAB Aspirin (Aspirin Chewable) 81 Mg Chew 81 MG PO QPM, TAB Atorvastatin Calcium (Lipitor) 80 Mg Tab 80 MG PO HS, TAB Carvedilol (Coreg) 25 Mg Tab 25 MG PO BID, TAB Clopidogrel Bisulfate (Plavix) 75 Mg Tab 75 MG PO QAM, TAB Ezetimibe (Zetia) 10 Mg Tab 10 MG PO HS, TAB Ferrous Sulfate (Kp Ferrous Sulfate) 325 Mg Tab 325 MG PO BID for 30 Days, #60 TAB 3 Refills TAKE WITH GLASS OF ORANGE JUICE Fish Oil ([place]-3) 1 Ea Cap 1 CAP PO DAILY, CAP Fluticasone Prop/Salmeterol (Advair Diskus 500/50 60 Dose) 1 Ea Aerp 1 PUFFS INH BID, #180 Lisinopril (Lisinopril) 5 Mg Tab 5 MG PO QAM Magnesium Oxide (Mag-Ox) 400 Mg Tab 400 MG PO QAM, TAB Nutritional Supplements (Boost) 1 Liq Liq 1 CAN PO DIRECTED Oxycodone Ir (Roxicodone Ir) 5 Mg Tab 5 MG PO Q4H PRN for Severe Pain, TAB Polyethylene Glycol 3350 (Miralax) 1 Pow Pow 17 GM PO DAILY, #527 GM Potassium Chloride (Micro-K Ext Rel) 10 Meq Capcr 10 MEQ PO BID, CAP Pramipexole Dihydrochloride (Pramipexole Dihydrochlori) 0.25 Mg Tab 1 TAB PO HS, #60 Sertraline (Zoloft) 50 Mg Tab 50 MG PO QAM, TAB Discharge Exam Patient reports feeling well. She denies any shortness of breath at rest. She reports very minimal dyspnea on exertion. She has a non-productive cough but denies wheezing. The patient denies fevers, chills, sweats, chest pain, palpitations, claudication, wheezing, shortness of breath, nausea, vomiting, abdominal pain, dysuria, hematuria, urinary retention, paralysis, weakness, numbness and tingling. Review of Systems: Constitutional: No fever, No chills, No sweats Eyes: No worsening of vision, No eye pain, No diplopia ENT: No hearing loss, No sore throat, No trouble swallowing Respiratory: + cough, + dyspnea on exertion (improved), No sputum, No wheezing, No shortness of breath Cardiovascular: No chest pain, No claudication, No palpitations Abdomen: No pain, No nausea, No vomiting Musculoskeletal: No joint pain, No muscle pain, No calf pain Genitourinary - Female: No dysuria, No urinary retention, No hematuria Neurologic: No paralysis, No weakness, No numbness/tingling Integumentary: No rash, No itch, No color change Physical Exam: General Appearance: WD/WN, no apparent distress Eyes: normal inspection, PERRL, EOMI ENT: normal ENT inspection, hearing grossly normal, pharynx normal Neck: supple, no JVD, trachea midline Respiratory/Chest: lungs clear, normal breath sounds, no respiratory distress Cardiovascular: regular rate, rhythm, no gallop, + systolic murmur Abdomen / GI: normal bowel sounds, non tender, soft Extremities: normal inspection, no calf tenderness, no pedal edema Neurologic/Psychiatric: alert, normal mood/affect, oriented x 3 Skin: normal color, warm/dry, no rash (Hannah Caldwell ., PA-C) Hospital Course 71 y/o female with a history of systolic CHF (25%), COPD, CAD, HTN, HLD, and abdominal aortic stenosis with history of mesenteric infarct who presents with progressive shortness of breath. Pt improved with Lasix and BIPAP. Acute on chronic systolic CHF, moderate respiratory distress--stable/improving -Admit to telemetry. No acute events overnight. Pt remained in paced rhythm with HR in 70s-80s -U/O 1750 and net balance -625 total on 04/16 -D/C IV Lasix 20 mg q8h -Lasix 40 mg PO BID on 04/17. Discharge pt on home Lasix 40 mg PO qd, with additional 20 mg in afternoon as needed for weight gain 2-3 pounds -Daily weights -Strict I's & O's -Continue carvedilol 25 mg PO BID and lisinopril 5 mg PO qd COPD--stable, does not appear to be in acute exacerbation -Pulmonology consulted, appreciate recs: Continue diuresis with Lasix. Add Spiriva and continue nebulizers. No need for steroids now. F/u with pulm. May need adjunct faculty for medical terminology oxygen therapy -Continue Advair BID -Continue Spiriva on discharge -Continue Duonebs -2 step performed, pt qualifies for 2L NC CAD--stable -Troponin negative x 3 -Continue BB, ASA, statin HTN--stable. BP stable now but has been hypotensive/low normal -Continue Coreg and lisinopril as above HLD -Continue atorvastatin 80 mg PO qhs DVT prophylaxis -Heparin 5000 units SC q8h Code Status -Level I, FULL RESUSCITATION STATUS Total Time Spent: Greater than 30 minutes This includes examination of the patient, discharge planning, medication reconciliation, and communication with other providers. (Hannah Caldwell ., PA-C) I agree with PA assessment and plan and have seen and examined pt myself Resting comfortably in bed No SOB No edema Labs and vitals reviewed Convert to PO lasix DC home (Donis Marx D.O.) Discharge Instructions Please refer to the electronic Patient Visit Report (Discharge Instructions) for additional information. (Hannah Caldwell PA-C) Additional Copies To RV. Edwards MD; Brenda Haque PA-C
[2017-05-31] MEDS ORDERED: CLOP1TAB54 PO (07:16)
[2017-05-31] MEDS ORDERED: SERT50TA PO (07:16)
[2017-05-31] MEDS ORDERED: EZET10TA47 PO (07:16)
== END 2017-04-17 15:06 | disposition home or self-care (01) | DRG 291 ==
LOC: C.EDB 18:33 → C.2T 20:31 → ENRESERV 20:56
PROVIDERS: ADMIT Internal Medicine; ATTEND Hospitalist
DX: I50.23 Acute on chronic systolic (congestive) heart failure (principal); K55.059 Acute (reversible) ischemia of intestine, part and extent unspecified; D64.9 Anemia, unspecified; J45.909 Unspecified asthma, uncomplicated; J44.9 Chronic obstructive pulmonary disease, unspecified; N18.9 Chronic kidney disease, unspecified; I25.10 Atherosclerotic heart disease of native coronary artery without angina pectoris; E11.9 Type 2 diabetes mellitus without complications; E78.00 Pure hypercholesterolemia, unspecified; Z79.82 Long term (current) use of aspirin; Z95.810 Presence of automatic (implantable) cardiac defibrillator; I25.2 Old myocardial infarction

== ENCOUNTER → 2017-04-25 | Outpatient (CLI) | payer BC ==
[~2017-04-25] MED LIST changes: +ACET-1256 PO; +ADVIN50/60 INH; +ALBU18002 INH; +ATOR80TA PO; +CARV25TA PO; +CLOP1TAB54 PO; +EZET10TA47 PO; +FERR1TAB13 PO; -FRRS300 PO; +FRS/40 PO; -IPRASOL4 INH; -LSX20 PO; +MAGN400T6 PO; -MGNO400 PO; -MRLP17 PO; +MRP25 PO; +NUTR-7 PO; -NYSS5 PO; +OMEG10007 PO; +OXYC1TAB3 PO; +POLY335019 PO; +POTA10CA28 PO; -RXC5 PO; +SERT50TA PO; +SPIR25TA PO; -SPR25 PO; +SPRIN INH
[2017-04-25 11:39] LABS: BLOOD UREA NITROGEN 19 mg/dl (7-18); BUN/CREATININE RATIO 18.7 (10-20); CALCIUM 9.2 mg/dl (8.5-10.1); CARBON DIOXIDE 31 mmol/L (21-32); CHLORIDE 96 mmol/L (98-107); GLUCOSE 103 mg/dl (70-99); POTASSIUM 3.8 mmol/L (3.5-5.1); SODIUM 132 mmol/L (136-145)
== END | disposition home or self-care (01) ==
LOC: C.LAB1850 10:11
PROVIDERS: ATTEND Physician Assistant
DX: I50.9 Heart failure, unspecified (principal)

== ENCOUNTER → 2017-05-30 | Outpatient (CLI) | payer BC ==
--- NOTE | 2017-05-30 13:59 | MAMMOGRAPHY REPORT ---
BILATERAL DIGITAL SCREENING MAMMOGRAM WITH CAD: 05/30/2017 CLINICAL HISTORY: Routine screening. Patient has no complaints. TECHNIQUE: Current study was also evaluated with a Computer Aided Detection (CAD) system. Bilateral CC and MLO views were obtained. COMPARISON: Comparison is made to exams dated: 05/29/2016 mammogram, 05/27/2015 mammogram, 06/16/2012 m ammogram, 06/13/2011 mammogram - [facility], 08/19/2008, and 07/22/2007. BREAST COMPOSITION: The tissue of both breasts is heterogeneously dense, which may obscure small mas ses. FINDINGS: No suspicious masses, calcifications, or areas of architectural distortion are noted in ei ther breast. There has been no significant interval change compared to prior exams. A pacemaker agai n projects over the left pectoralis muscle, obscuring portions of the left superior breast on the MLO view. A biopsy marker clip is again noted in the right 3:00 breast. Bilateral benign-appearing meghan cifications are again noted. IMPRESSION: ACR BI-RADS CATEGORY 2: BENIGN There is no mammographic evidence of malignancy. A 1 year screening mammogram is recommended. The pa tient will receive written notification of the results. Approximately 10% of breast cancers are not detected with mammography. A negative mammographic report should not delay biopsy if a clinically suggestive mass is present. Melissa Yañez M.D. /:05/30/2017 12:37:14 Post Hole Digging Machine Operator: Laura SERRA(R)(M), [facility] letter sent: Normal 1/2 BI-RADS Code: ACR BI-RADS Category 2: Benign
== END | disposition home or self-care (01) ==
LOC: C.MAMM 11:28
PROVIDERS: ATTEND Internal Medicine
DX: Z12.31 Encounter for screening mammogram for malignant neoplasm of breast (principal)

== ENCOUNTER 2017-05-31 12:54 | Emergency (ER) | payer BC ==
[~2017-05-31 12:54] MED LIST changes: -ACET-1256 PO; -ADVIN50/60 INH; -ATOR80TA PO; -CARV25TA PO; -IPRA1AER2 INH; -LSN5 PO; -MAGN400T6 PO; -MRP25 PO; -NUTR-7 PO; -OMEG10007 PO; -POTA10CA28 PO; -SPIR25TA PO
[2017-05-31 13:03] VITALS: TEMP 36.9; Ht 157.5 cm
[2017-05-31] MEDS ORDERED: LEVALBUTEROL 1.25MG/0.5ML NEB INH STA (13:39)
[2017-05-31] MEDS ORDERED: IPRATROPIUM BROMIDE NEB SOLN 0.02% 2.5 ML VIAL INH STA (13:39)
[2017-05-31] MEDS ORDERED: FENTANYL CITRATE INJ 50 MCG/1 ML 2 ML VIAL IV PRN (13:45)
[2017-05-31] MEDS ORDERED: CARV25TA PO (13:48)
--- NOTE | 2017-05-31 13:50 | EMERGENCY ROOM VISIT NOTE ---
History Report prepared by Phillip: Briseyda Becerra Under the Supervision of: Dr. Antonio Hernandez M.D. First contact with patient: 13:30 Chief Complaint: RESPIRATORY PROBLEMS Stated Complaint: HARD TIME BREATHING, FALL History of Present Illness The patient is a 72 year old female who presents to the Emergency Room with complaints of a sudden fall that occurred around 12 hours ago. She currently rates her discomfort as a 7/10 in severity. The patient states that around 0100 -0130 she fell, but is unsure how and why she fell. She is unsure of a loss of consciousness. The patient states that she is experiencing a headache and hit her face during the fall. She additionally notes that she injured her left wrist, right shoulder, and right 4th finger. The patient states that she was able to get up on her own after the fall. She notes that she lives at home with her . The patient states that she is on Plavix and aspirin daily. She denies any lower extremity trauma. The patient's daughter notes that the patient does not seem at her baseline. The patient additionally reports that over the past several days she has been noticing increasing shortness of breath , noting a history of congestive heart failure and COPD. She states that today her shortness of breath has been at it's worst, noting that she has been using supplemental oxygen, which she does not typically use. The patient states that she tried taking her nebulizer treatments this morning without relief of her shortness of breath. She additionally reports a cough and congestion. The patient denies any fever or urinary symptoms. Source of History: patient, family (daughter) Onset: 12 hours ago Position: other (global) Symptom Intensity: 7/10 Quality: other (fall) Timing: other (sudden) Associated Symptoms: + cough, + SOB, No fevers, No urinary symptoms Note: Associated Symptoms: right shoulder pain, left wrist pain, right 4th finger pain , congestion Review of Systems See HPI for pertinent positives & negatives. A total of 10 systems reviewed and were otherwise negative. Past Medical & Surgical Medical Problems: (1) Acute on chronic systolic (congestive) heart failure (2) AICD malfunction (3) ANEMIA NOS (4) ASTHMA, UNSPECIFIED (5) Cardiac defibrillator in place (6) CHRONIC KIDNEY DISEASE, UNSPECIFIED (7) copd exac, n/v, (8) CORONARY ATHEROSCLEROSIS OF [place] CORONARY VESSEL (9) DIAB CASPER WO COMPL, TYPE II OR UNSPEC TYPE, NOT UNCNTRLD (10) Emphysema of lung (11) Hypoxia (12) Non compliance w medication regimen (13) Pulmonary congestion (14) PURE HYPERCHOLESTEROLEM (15) Respiratory distress (16) Syncope Family History Diabetes mellitus FH: heart disease Hypertension Kidney disease Kidney stones Lung disease Social History Smoking Status: Current Every Day Smoker Alcohol Use: occasionally Drug Use: none Marital Status: Housing Status: lives with family Occupation Status: retired Current/Historical Medications Scheduled Aspirin (Aspirin Chewable), 81 MG PO QPM Atorvastatin Calcium (Lipitor), 80 MG PO HS Carvedilol (Coreg), 25 MG PO BID Clopidogrel Bisulfate (Plavix), 75 MG PO QAM Ezetimibe (Zetia), 10 MG PO HS Fish Oil ([place]-3), 1 CAP PO DAILY Fluticasone Prop/Salmeterol (Advair Diskus 500/50 60 Dose), 1 PUFFS INH BID Furosemide (Lasix), 40 MG PO UD Ipratropium-Albuterol (Combivent Respimat), 1 PUFFS INH QID Lisinopril (Lisinopril), 5 MG PO QAM Magnesium Oxide (Mag-Ox), 400 MG PO QAM Nutritional Supplements (Boost), 1 CAN PO DIRECTED Potassium Chloride (Micro-K Ext Rel), 10 MEQ PO BID Pramipexole Dihydrochloride (Pramipexole Dihydrochlori), 1 TAB PO HS Sertraline (Zoloft), 50 MG PO QAM Spironolactone (Aldactone), 25 MG PO QAM Scheduled PRN Acetaminophen (Tylenol), 1,000 MG PO Q6 PRN for Headache Allergies Coded Allergies: Sulfa Antibiotics (Verified Allergy, Intermediate, RASH, 04/13/17) Morphine (Verified Adverse Reaction, Severe, GI SYMPTOMS, 04/13/17) Physical Exam Vital Signs Date Time Temp Pulse Resp B/P (MAP) Pulse Ox O2 Delivery O2 Flow Rate FiO2 05/31/17 15:06 62 22 120/48 99 Nebulizer 05/31/17 14:02 97 Nasal Cannula 2.0 05/31/17 14:02 97 Nasal Cannula 2.0 05/31/17 13:25 92 Room Air 05/31/17 13:03 36.9 94 20 106/66 94 Room Air Physical Exam GENERAL: Patient is in no acute distress. HEENT: Contusion to the left face with swelling, a hematoma is present, no obvious facial fracture by exam, left eye swollen closed. Mucous membranes are dry. No scalp hematoma. NECK: No stridor, no adenopathy, no meningismus, trachea is midline. Nontender posterior c-spine. LUNGS: Clear to auscultation anteriorly, breath sounds equal, no respiratory distress, no wheezing HEART: Without murmurs gallops or rubs, regular rate and rhythm. ABDOMEN: Soft, nontender, bowel sounds positive, no hernias, no peritonitis. EXTREMITIES: Mild pedal edema without cellulitis, swelling and pain in the area of the right fourth PIP joint, no gross deformity. Pain with movement of the right shoulder, no obvious dislocation, or focal area of tenderness, contusion to the left bicep without evidence of underlying fracture, no pain to palpate this area. Contusion to the left wrist and left hand, no pain with joint movement, no focal discomfort with palpation. NEUROLOGIC: Oriented x 3, no acute motor or sensory deficits, no focal weakness. GCS 15. SKIN: No rash, no jaundice, no diaphoresis. Medical Decision & Procedures ER Provider Diagnostic Interpretation: Chest x-ray: IMPRESSION: Cardiomegaly with mild pulmonary edema pattern. No focal airspace consolidation. Brain CT: Acute subarachnoid hemorrhage in the right sylvian fissure and along the right insular cortex. Overlying hypodensity in the right temporal lobe most pronounced inferiorly and anteriorly consistent with contusion. Additional areas of hypoattenuation in the subcortical and periventricular white matter likely chronic small vessel ischemic change. Extensive left frontal subcutaneous hematoma and contusion. This extends into the left periorbital and left premaxillary region. No subjacent depressed calvarial fracture. Paranasal sinuses and mastoid air cells clear. IMPRESSION: 1. Acute subarachnoid hemorrhage with associated contusion of the left temporal lobe. 2. Extensive soft tissue contusion and subcutaneous hematoma in the left frontal, periorbital and premaxillary region. The report will be called/faxed according to standard departmental protocol C-spine CT: IMPRESSION: 1. No acute osseous injury of the cervical spine. 2. Degenerative changes most severe at C4-5 and C5-6. Facial CT: IMPRESSION: 1. No acute facial fracture. 2. Extensive left facial/scalp contusion. Globes intact. No retrobulbar hematoma. 3. Subarachnoid hemorrhage which is better depicted on the head CT. Please see that report for further description. Laboratory Results 05/31/17 14:05 Red Blood Count 3.65, Mean Corpuscular Volume 90.7, Mean Corpuscular Hemoglobin 31.0, Mean Corpuscular Hemoglobin Concent 34.1, Mean Platelet Volume 9.0, Neutrophils (%) (Auto) 64.5, Lymphocytes (%) (Auto) 24.2, Monocytes (%) (Auto) 10.6, Eosinophils (%) (Auto) 0.3, Basophils (%) (Auto) 0.3, Neutrophils # (Auto ) 4.56, Lymphocytes # (Auto) 1.71, Monocytes # (Auto) 0.75, Eosinophils # (Auto ) 0.02, Basophils # (Auto) 0.02 05/31/17 14:05 Test 05/31/17 14:05 05/31/17 14:17 White Blood Count 7.07 K/uL (4.8-10.8) Red Blood Count 3.65 M/uL (4.2-5.4) Hemoglobin 11.3 g/dL (12.0-16.0) Hematocrit 33.1 % (37-47) Mean Corpuscular Volume 90.7 fL (80-100) Mean Corpuscular Hemoglobin 31.0 pg (25-34) Mean Corpuscular Hemoglobin Concent 34.1 g/dl (32-36) Platelet Count 200 K/uL (130-400) Mean Platelet Volume 9.0 fL (7.4-10.4) Neutrophils (%) (Auto) 64.5 % Lymphocytes (%) (Auto) 24.2 % Monocytes (%) (Auto) 10.6 % Eosinophils (%) (Auto) 0.3 % Basophils (%) (Auto) 0.3 % Neutrophils # (Auto) 4.56 K/uL (1.4-6.5) Lymphocytes # (Auto) 1.71 K/uL (1.2-3.4) Monocytes # (Auto) 0.75 K/uL (0.11-0.59) Eosinophils # (Auto) 0.02 K/uL (0-0.5) Basophils # (Auto) 0.02 K/uL (0-0.2) RDW Standard Deviation 52.9 fL (36.4-46.3) RDW Coefficient of Variation 15.8 % (11.5-14.5) Immature Granulocyte % (Auto) 0.1 % Immature Granulocyte # (Auto) 0.01 K/uL (0.00-0.02) Prothrombin Time 11.4 SECONDS (9.0-12.0) Prothromb Time International Ratio 1.1 (0.9-1.1) Activated Partial Thromboplast Time 28.4 SECONDS (21.0-31.0) Partial Thromboplastin Ratio 1.1 Anion Gap 10.0 mmol/L (3-11) Estimated GFR () 57.7 Estimated GFR (Non- 49.8 BUN/Creatinine Ratio 12.6 (10-20) Calcium Level 9.1 mg/dl (8.5-10.1) Magnesium Level 2.0 mg/dl (1.8-2.4) Total Bilirubin 0.7 mg/dl (0.2-1) Aspartate Amino Transf (AST/SGOT) 63 U/L (15-37) Alanine Aminotransferase (ALT/SGPT) 21 U/L (12-78) Alkaline Phosphatase 66 U/L (45-117) Total Creatine Kinase 137 U/L (26-192) Troponin I 9.910 ng/ml (0-0.045) Pro-B-Type Natriuretic Peptide 12870 pg/ml (0-900) Total Protein 6.7 gm/dl (6.4-8.2) Albumin 3.2 gm/dl (3.4-5.0) Globulin 3.5 gm/dl (2.5-4.0) Albumin/Globulin Ratio 0.9 (0.9-2) Thyroid Stimulating Hormone (TSH) 2.320 uIu/ml (0.300-4.500) Urine Color YELLOW Urine Appearance CLEAR (CLEAR) Urine pH 7.5 (4.5-7.5) Urine Specific [place] 1.014 (1.000-1.030) Urine Protein NEG (NEG) Urine Glucose (UA) NEG (NEG) Urine Ketones NEG (NEG) Urine Occult Blood NEG (NEG) Urine Nitrite NEG (NEG) Urine Bilirubin NEG (NEG) Urine Urobilinogen NEG (NEG) Urine Leukocyte Esterase NEG (NEG) Laboratory results reviewed by me. Medications Administered Medications (Trade) Dose Ordered Sig/[place] Route Start Time Stop Time Status Last Admin Dose Admin Levalbuterol (Xopenex 1.25MG/ 0.5ML Neb) 1.25 mg NOW STAT INH 05/31/17 13:39 05/31/17 13:45 DC 05/31/17 15:04 1.25 MG Ipratropium [place] (Atrovent 0.02% 0.5MG/2.5ML Neb) 0.5 mg NOW STAT INH 05/31/17 13:39 05/31/17 13:46 DC 05/31/17 15:04 0.5 MG Fentanyl Citrate (Fentanyl Inj) 25 mcg Q15M PRN IV 05/31/17 13:45 06/14/17 13:44 05/31/17 15:04 25 MCG ECG Indication: other (fall) Rate (beats per minute): 60 Rhythm: other (ventricular pacemaker) Findings: no acute ischemic change, no ectopy ED Course 1334: The patient was evaluated in room A10. A complete history and physical exam was performed. 1339: Ordered Ipratropium [place] 0.4 mg INH, Levalbuterol 1.25 mg INH. 1345: Ordered Fentanyl Citrate 25 mcg IV. Medical Decision The patient is a 72 year old female who presents to the ED with complaints of a sudden fall. Differential diagnoses considered include Intracranial bleeding, facial fracture, c-spine fracture or injury, extremity fracture, dehydration, renal failure, anemia, dysrhythmia, electrolyte imbalance, [place], CHF, COPD exacerbation. There is no leukocytosis or concerning anemia. No significant electrolyte abnormality, kidney failure or hepatitis. There is no coagulopathy. EKG shows a ventricular paced rhythm. No obvious ischemia, no ectopy. Cardiac enzyme testing shows an elevation to the troponin consistent with cardiac injury/NJ. Chest film shows some cardiomegaly, mild fluid overload was suspected, no pneumonia. Urinalysis does not show infection. The patient appears to be in a euthyroid state. Brain CT shows a subarachnoid hemorrhage with brain parenchymal contusion. No skull fracture. No midline shifting. Facial CT shows no acute fracture, soft tissue swelling was seen. C-spine CT shows no acute fracture. Films of the extremities were ordered but then canceled as the patient was felt in need of emergent transfer to a trauma center. The patient did receive a few ice chips to wet her mouth, she was given IV fentanyl for pain. She received a Xopenex Atrovent neb to help her breathing. She was maintained on nasal cannula oxygen. The patient requires a trauma center transfer. I spoke to [facility]. The trauma doctor there did accept the patient (Dr. Ramon). The patient is being sent by ground ambulance as she does appear stable. I spoke to the patient and the daughter about my findings. Orders for transfer were written. The patient has suffered an NJ, she has suffered a fall resulting in a subarachnoid hemorrhage and some intracranial bleeding. Trauma center care, tertiary center care is required. My suspicion for extremity fracture is small- -as noted above, the films of the extremities have been canceled given the need for the emergent transfer. The patient can have the remaining films performed at the trauma center. Head Trauma GCS Score: 15 Medication Reconcilliation Current Medication List: was personally reviewed by me Blood Pressure Screening Patient's blood pressure: Normal blood pressure Blood pressure disposition: Did not require urgent referral Impression Primary Impression: Intracranial bleeding Additional Impressions: Facial contusion Multiple contusions Acute NJ Critical Care I have personally spent greater than 30 minutes of critical care time in the direct management of this patient. This includes bedside care, interpretation of diagnostic studies and testing, discussion with consultants, the patient, and family members, and other required patient management activities. This 30 minutes is in excess of all separately billable procedures. Scribe Attestation The scribe's documentation has been prepared under my direction and personally reviewed by me in its entirety. I confirm that the note above accurately reflects all work, treatment, procedures, and medical decision making performed by me. Departure Information Dispostion Transfer Acute Care Facility Referrals RV. Edwards MD (PCP) Patient Instructions [facility] Problem Qualifiers
[2017-05-31 14:02] VITALS: O2SAT 97
[2017-05-31] MEDS ORDERED: OMEG10007 PO (14:09)
[2017-05-31 14:21] LABS: BASO % 0.3 %; BASO ABS # 0.02 K/uL (0-0.2); COMPLETE YES; EOS % 0.3 %; HEMATOCRIT 33.1 % (37-47); IG% 0.1 %; LYMPH % 24.2 %; LYMPH ABS # 1.71 K/uL (1.2-3.4); MEAN CELL VOLUME 90.7 fL (80-100); MEAN CORPUSCULAR HGB CONC 34.1 g/dl (32-36); MONO % 10.6 %; NEUT % 64.5 %; PLATELET COUNT 200 K/uL (130-400); RED BLOOD COUNT 3.65 M/uL (4.2-5.4); WHITE BLOOD COUNT 7.07 K/uL (4.8-10.8)
[2017-05-31 14:29] LABS: INR 1.1 (0.9-1.1); PARTIAL THROMBOPLASTIN RATIO 1.1; PROTHROMBIN TIME (PATIENT) 11.4 SECONDS (9.0-12.0)
[2017-05-31 14:41] LABS: URINE APPEARANCE CLEAR (CLEAR); URINE BILIRUBIN NEG (NEG); URINE COLOR YELLOW; URINE NITRITE NEG (NEG); URINE PH 7.5 (4.5-7.5); URINE SPECIFIC GRAVITY 1.014 (1.000-1.030); UROBILINOGEN NEG (NEG); ZZUR CULT IF INDIC CLEAN CATCH NO
[2017-05-31] MEDS ORDERED: IPRA1AER2 INH (14:41)
[2017-05-31] MEDS ORDERED: SPIR25TA PO (14:41)
[2017-05-31 14:46] LABS: MANUAL MICROSCOPIC REQUIRED? NO; REVIEW REQ? NO
[2017-05-31 14:52] LABS: ALT/SGPT 21 U/L (12-78); AST/SGOT 63 U/L (15-37); BLOOD UREA NITROGEN 14 mg/dl (7-18); BUN/CREATININE RATIO 12.6 (10-20); CALCIUM 9.1 mg/dl (8.5-10.1); CARBON DIOXIDE 26 mmol/L (21-32); CHLORIDE 96 mmol/L (98-107); GLUCOSE 94 mg/dl (70-99); POTASSIUM 3.9 mmol/L (3.5-5.1); SODIUM 132 mmol/L (136-145)
[2017-05-31 15:06] VITALS: BP 120/48; PULSE 62; O2SAT 99
[2017-05-31 15:10] LABS: ALB/GLOB RATIO 0.9 (0.9-2); ALKALINE PHOSPHATASE 66 U/L (45-117)
--- NOTE | 2017-05-31 15:16 | DIAGNOSTIC IMAGING REPORT ---
HEAD WITHOUT CONTRAST (CT) CLINICAL HISTORY: 72 years-old Female presenting with fall, pain. TECHNIQUE: Multidetector CT imaging of the head was performed without the use of intravenous contrast. IV contrast: None. A dose lowering technique was used consistent with the principles of ALARA (as low as reasonably achievable). COMPARISON: None. CT DOSE (mGy.cm): The estimated cumulative dose is 924.15 mGy.cm. FINDINGS: Surveillance Agent topogram: Unremarkable. Acute subarachnoid hemorrhage in the right sylvian fissure and along the right insular cortex. Overlying hypodensity in the right temporal lobe most pronounced inferiorly and anteriorly consistent with contusion. Additional areas of hypoattenuation in the subcortical and periventricular white matter likely chronic small vessel ischemic change. Extensive left frontal subcutaneous hematoma and contusion. This extends into the left periorbital and left premaxillary region. No subjacent depressed calvarial fracture. Paranasal sinuses and mastoid air cells clear. IMPRESSION: 1. Acute subarachnoid hemorrhage with associated contusion of the left temporal lobe. 2. Extensive soft tissue contusion and subcutaneous hematoma in the left frontal, periorbital and premaxillary region. The report will be called/faxed according to standard departmental protocol. Electronically signed by: Bob Calvert M.D. 05/31/2017 3:15 PM Dictated Date/Time: 05/31/2017 3:11 PM
--- NOTE | 2017-05-31 15:25 | DIAGNOSTIC IMAGING REPORT ---
MAXILLOFACIAL CT WITHOUT CONTRAST CLINICAL HISTORY: Pain following fall. COMPARISON STUDY: None. TECHNIQUE: A maxillofacial CT was performed without IV contrast. Coronal and sagittal reformats were viewed. A dose lowering technique was utilized adhering to the principles of ALARA. FINDINGS: No acute facial fracture is identified. The globes are intact and there is no retrobulbar hematoma. There is a large left facial/scalp contusion. Alignment of the temporomandibular joints is anatomic. Scattered subarachnoid hemorrhage is better depicted on the head CT. Please see that report for further description. IMPRESSION: 1. No acute facial fracture. 2. Extensive left facial/scalp contusion. Globes intact. No retrobulbar hematoma. 3. Subarachnoid hemorrhage which is better depicted on the head CT. Please see that report for further description. Electronically signed by: Bora Schmitt M.D. 05/31/2017 3:23 PM Dictated Date/Time: 05/31/2017 3:19 PM
--- NOTE | 2017-05-31 15:27 | DIAGNOSTIC IMAGING REPORT ---
CERVICAL SPINE W/O CLINICAL HISTORY: 72 years-old Female presenting with fall, pain. TECHNIQUE: Multidetector CT of the cervical spine was performed without the use of intravenous contrast. IV contrast: None. A dose lowering technique was used consistent with the principles of ALARA (as low as reasonably achievable). COMPARISON: None. CT DOSE (mGy.cm): The estimated cumulative dose is 924.15 inclusive of the head CT.. FINDINGS: Bariatric Nurse topogram: Unremarkable. Straightening of normal cervical lordosis. There is also 2 mm of anterolisthesis of C4 on C5. No acute fracture or acute subluxation. Multilevel degenerative changes most pronounced in the mid to lower cervical region with disc osteophyte complexes and facet arthropathy. Mild right osseous neural foraminal narrowing at C4-5 and C5-6. No osseous spinal canal narrowing. Limited intracranial evaluation within normal limits. Skull base intact. Vertebral artery atherosclerosis noted. Emphysema at the lung apices. Paraspinal soft tissues normal. IMPRESSION: 1. No acute osseous injury of the cervical spine. 2. Degenerative changes most severe at C4-5 and C5-6. Electronically signed by: Bob Calvert M.D. 05/31/2017 3:26 PM Dictated Date/Time: 05/31/2017 3:22 PM
--- NOTE | 2017-05-31 16:08 | DIAGNOSTIC IMAGING REPORT ---
CHEST ONE VIEW PORTABLE HISTORY: 72 years-old Female EVALUATE RESPIRATORY DISTRESS. DYSPNEA COMPARISON: Portable chest radiograph 04/13/2017 TECHNIQUE: Portable upright AP view of the chest FINDINGS: Cardiac silhouette is again moderately enlarged. Pulmonary vascular congestion is noted with mild background interstitial coarsening, similar from comparison. Left pectoral pacer/defibrillator is noted with leads intact. There is atherosclerosis of the thoracic aorta. No pneumothorax, large pleural effusion or focal airspace consolidation. The bones are grossly intact. IMPRESSION: Cardiomegaly with mild pulmonary edema pattern. No focal airspace consolidation. The above report was generated using voice recognition software. It may contain grammatical, syntax or spelling errors. Electronically signed by: Angelito Portillo M.D. 05/31/2017 4:07 PM Dictated Date/Time: 05/31/2017 4:05 PM
[2017-05-31] MEDS ORDERED: POTA10CA28 PO (16:35)
[2017-05-31] MEDS ORDERED: LSN5 PO (19:26)
[2017-05-31] MEDS ORDERED: MAGN400T6 PO (19:26)
[2017-05-31] MEDS ORDERED: NUTR-7 PO (19:26)
[2017-05-31] MEDS ORDERED: ACET-1256 PO (19:58)
[2017-05-31] MEDS ORDERED: ADVIN50/60 INH (19:58)
[2017-05-31] MEDS ORDERED: MRP25 PO (20:02)
[2017-05-31] MEDS ORDERED: ATOR80TA PO (20:41)
== END 2017-05-31 17:29 | disposition short-term general hospital (02) ==
LOC: C.EDB 12:56 → C.EDA 17:29
DX: S06.6X9A Traumatic subarachnoid hemorrhage with loss of consciousness of unspecified duration, initial encounter (principal); S00.83XA Contusion of other part of head, initial encounter; T14.8 Other injury of unspecified body region; W19.XXXA Unspecified fall, initial encounter; Y92.009 Unspecified place in unspecified non-institutional (private) residence as the place of occurrence of the external cause; I21.3 ST elevation (STEMI) myocardial infarction of unspecified site; I50.23 Acute on chronic systolic (congestive) heart failure; D64.9 Anemia, unspecified; J45.909 Unspecified asthma, uncomplicated; Z95.810 Presence of automatic (implantable) cardiac defibrillator; N18.9 Chronic kidney disease, unspecified; I25.10 Atherosclerotic heart disease of native coronary artery without angina pectoris; E11.9 Type 2 diabetes mellitus without complications; E78.00 Pure hypercholesterolemia, unspecified; J43.9 Emphysema, unspecified; Z83.3 Family history of diabetes mellitus; Z82.49 Family history of ischemic heart disease and other diseases of the circulatory system; Z84.1 Family history of disorders of kidney and ureter; Z83.6 Family history of other diseases of the respiratory system; F17.210 Nicotine dependence, cigarettes, uncomplicated; Z79.82 Long term (current) use of aspirin; Z79.02 Long term (current) use of antithrombotics/antiplatelets; Z79.899 Other long term (current) drug therapy

== ENCOUNTER → 2017-07-01 | Outpatient (CLI) | payer BC ==
[~2017-07-01] MED LIST changes: +ACET-1256 PO; +ADVIN50/60 INH; -ALBU18002 INH; -ALPR-411 PO; +ATOR80TA PO; +CARV25TA PO; -FERR1TAB13 PO; +IPRA1AER2 INH; +LSN5 PO; +MAGN400T6 PO; +MRP25 PO; +NUTR-7 PO; +OMEG10007 PO; -OXYC1TAB3 PO; -POLY335019 PO; +POTA10CA28 PO; +SPIR25TA PO; -SPRIN INH
[2017-07-01 11:28] LABS: BLOOD UREA NITROGEN 26 mg/dl (7-18); BUN/CREATININE RATIO 36.3 (10-20); CALCIUM 8.7 mg/dl (8.5-10.1); CARBON DIOXIDE 31 mmol/L (21-32); CHLORIDE 100 mmol/L (98-107); CREATININE 0.72 mg/dl (0.60-1.20); GLUCOSE 94 mg/dl (70-99); POTASSIUM 3.8 mmol/L (3.5-5.1); SODIUM 138 mmol/L (136-145)
--- NOTE | 2017-07-05 11:49 | CODING QUERY NO DIAGNOSIS ---
Valid Physician Order Needed 44 A valid physician order must be submitted in order to properly bill for the service(s) provided, including date of service(s), valid diagnosis, and physician signature. If these tests are done on a recurring basis the original physician order must be submitted in order to code and bill for the service(s) provided. Please fax us the original, signed physician order so that we may expedite billing to [phone] DOS 07/01/17 * PARTIAL RENAL PROFILE Thank you [facility] Information Management
== END | disposition home or self-care (01) ==
LOC: C.LABSPEC 10:57
PROVIDERS: ATTEND Internal Medicine
DX: E87.6 Hypokalemia (principal); Z91.81 History of falling; M62.81 Muscle weakness (generalized); E11.9 Type 2 diabetes mellitus without complications; I42.9 Cardiomyopathy, unspecified; I10 Essential (primary) hypertension; J44.9 Chronic obstructive pulmonary disease, unspecified

== ENCOUNTER → 2017-07-18 | Outpatient (CLI) | payer BC ==
[2017-07-18 10:18] LABS: BASO % 0.2 %; BASO ABS # 0.01 K/uL (0-0.2); COMPLETE YES; EOS % 0.9 %; HEMATOCRIT 34.4 % (37-47); IG% 0.2 %; LYMPH % 29.9 %; MEAN CELL VOLUME 92.7 fL (80-100); MEAN CORPUSCULAR HEMOGLOBIN 29.4 pg (25-34); MEAN CORPUSCULAR HGB CONC 31.7 g/dl (32-36); MONO % 13.6 %; NEUT % 55.2 %; PLATELET COUNT 245 K/uL (130-400); RED BLOOD COUNT 3.71 M/uL (4.2-5.4); WHITE BLOOD COUNT 4.69 K/uL (4.8-10.8)
--- NOTE | 2017-07-18 10:38 | DIAGNOSTIC IMAGING REPORT ---
CT SCAN OF THE BRAIN WITHOUT IV CONTRAST CLINICAL HISTORY: Follow-up stroke and hemorrhage. COMPARISON STUDY: CT of the brain dated 05/31/2017. TECHNIQUE: Unenhanced axial CT scan of the brain is performed from the vertex to the skull base. CT DOSE: 537.48 mGy.cm FINDINGS: Brain parenchyma: There are age-related involutional changes noting [id number] patchy subcortical and periventricular microangiopathic change. There is right temporoparietal encephalomalacia consistent with an evolving infarct. There is no hemorrhage or evidence of acute territorial ischemia by CT criteria. There is no midline shift. No extra-axial fluid collection is seen. Ventricles, sulci, cisterns: Prominent secondary to involutional change. Intracranial vasculature: There is atherosclerotic calcification of the cavernous carotid and vertebral arteries. Calvarium: Unremarkable. Sinuses and mastoids: The visualized paranasal sinuses are clear. The mastoid air cells are well pneumatized. Orbits: The bony orbits are grossly intact. There are bilateral ocular lens implants. IMPRESSION: 1. There is right temporoparietal encephalomalacia consistent with an evolving MCA territory infarct. 2. There is no hemorrhage, mass effect, or evidence of acute territorial ischemia by CT criteria. Electronically signed by: Antonio Astorga M.D. 07/18/2017 10:37 AM Dictated Date/Time: 07/18/2017 10:06 AM
[2017-07-18 10:45] LABS: ALT/SGPT 18 U/L (12-78); BLOOD UREA NITROGEN 17 mg/dl (7-18); BUN/CREATININE RATIO 19.7 (10-20); CALCIUM 8.9 mg/dl (8.5-10.1); CARBON DIOXIDE 29 mmol/L (21-32); CHLORIDE 102 mmol/L (98-107); CREATININE 0.87 mg/dl (0.60-1.20); GLUCOSE 93 mg/dl (70-99); POTASSIUM 3.3 mmol/L (3.5-5.1); SODIUM 138 mmol/L (136-145)
[2017-07-18 10:50] LABS: ALB/GLOB RATIO 0.9 (0.9-2); ALKALINE PHOSPHATASE 61 U/L (45-117); AST/SGOT 19 U/L (15-37)
[2017-07-18 14:05] LABS: ESTIMATED AVERAGE GLUCOSE 120 mg/dl; HA1C FLAG Normal (Normal)
== END | disposition home or self-care (01) ==
LOC: C.CTS 09:16
PROVIDERS: ATTEND Internal Medicine
DX: D64.9 Anemia, unspecified (principal); I61.9 Nontraumatic intracerebral hemorrhage, unspecified; E11.9 Type 2 diabetes mellitus without complications; I60.9 Nontraumatic subarachnoid hemorrhage, unspecified; I63.511 Cerebral infarction due to unspecified occlusion or stenosis of right middle cerebral artery

== ENCOUNTER → 2017-08-05 | Outpatient (CLI) | payer BC, OTHER ==
[~2017-08-05] MED LIST changes: +LSX20 PO
[2017-08-05 13:11] LABS: BASO % 0.3 %; BASO ABS # 0.02 K/uL (0-0.2); COMPLETE YES; EOS % 1.9 %; IG% 0.3 %; LYMPH % 24.5 %; LYMPH ABS # 1.56 K/uL (1.2-3.4); MEAN CELL VOLUME 93.9 fL (80-100); MEAN CORPUSCULAR HEMOGLOBIN 29.8 pg (25-34); MEAN CORPUSCULAR HGB CONC 31.8 g/dl (32-36); MEAN PLATELET VOLUME 9.2 fL (7.4-10.4); MONO % 11.9 %; NEUT % 61.1 %; PLATELET COUNT 228 K/uL (130-400); RED BLOOD COUNT 3.62 M/uL (4.2-5.4); WHITE BLOOD COUNT 6.37 K/uL (4.8-10.8)
[2017-08-05 14:35] LABS: BLOOD UREA NITROGEN 24 mg/dl (7-18); BUN/CREATININE RATIO 23.4 (10-20); CALCIUM 9.4 mg/dl (8.5-10.1); CARBON DIOXIDE 31 mmol/L (21-32); CHLORIDE 103 mmol/L (98-107); CREATININE 1.01 mg/dl (0.60-1.20); GLUCOSE 94 mg/dl (70-99); POTASSIUM 4.4 mmol/L (3.5-5.1); SODIUM 141 mmol/L (136-145)
[2017-08-05 14:42] LABS: TOTAL IRON BINDING CAPACITY 342 mcg/dl (250-450)
== END | disposition home or self-care (01) ==
LOC: C.LAB1850 10:58
PROVIDERS: ATTEND Internal Medicine
DX: D64.9 Anemia, unspecified (principal)

== ENCOUNTER 2017-08-12 16:17 | Inpatient (IN) | payer BC, OTHER ==
[~2017-08-12] VITALS: Ht 157.5 cm; Wt 47.9 kg
[~2017-08-12 16:17] MED LIST changes: -LSX20 PO
[2017-08-12] MEDS ORDERED: LSX20 PO (17:41)
[2017-08-12 18:12] LABS: BASO % 0.3 %; BASO ABS # 0.02 K/uL (0-0.2); COMPLETE YES; EOS % 0.8 %; HEMATOCRIT 32.9 % (37-47); IG% 0.2 %; LYMPH % 24.1 %; LYMPH ABS # 1.48 K/uL (1.2-3.4); MEAN CELL VOLUME 91.6 fL (80-100); MEAN CORPUSCULAR HEMOGLOBIN 30.4 pg (25-34); MEAN CORPUSCULAR HGB CONC 33.1 g/dl (32-36); MEAN PLATELET VOLUME 9.4 fL (7.4-10.4); MONO % 9.3 %; NEUT % 65.3 %; PLATELET COUNT 256 K/uL (130-400); RED BLOOD COUNT 3.59 M/uL (4.2-5.4); WHITE BLOOD COUNT 6.14 K/uL (4.8-10.8)
--- NOTE | 2017-08-12 18:14 | EMERGENCY ROOM VISIT NOTE ---
History Report prepared by Phillip: Reece Gee Under the Supervision of: Dr. Sergei Feliciano M.D. First contact with patient: 17:26 Chief Complaint: RESPIRATORY PROBLEMS Stated Complaint: SOB Nursing Triage Summary: feeling short of breath over the past couple of days. dry cough. History of Present Illness The patient is a 72 year old white female with a past medical history of COPD, CHF, stroke, asthma, CKD, DM, HLD, anemia who presents to the ED with a cc of constant shortness of breath beginning a couple of days ago. Positive cough. Negative fever, history of blood clots, chest pain, leg swelling, and weight gain. The patient is on oxygen at night, though she has been using it during the day recently. She is short of breath when she walks, and it is not worsened with lying down. The patient states that she currently smokes a few cigarettes per day. Source of History: patient Onset: a couple of days ago Position: other (global) Quality: other (shortness of breath) Timing: constant Associated Symptoms: + cough, No fevers, No chest pain Review of Systems See HPI for pertinent positives and negatives. A total of ten systems were reviewed and were otherwise negative. Past Medical & Surgical Medical Problems: (1) Acute on chronic systolic (congestive) heart failure (2) AICD malfunction (3) ANEMIA NOS (4) ASTHMA, UNSPECIFIED (5) Cardiac defibrillator in place (6) CHRONIC KIDNEY DISEASE, UNSPECIFIED (7) COPD exacerbation (8) COPD exacerbation (9) CORONARY ATHEROSCLEROSIS OF [place] CORONARY VESSEL (10) DIAB CASPER WO COMPL, TYPE II OR UNSPEC TYPE, NOT UNCNTRLD (11) Emphysema of lung (12) Hypoxia (13) Non compliance w medication regimen (14) Pulmonary congestion (15) PURE HYPERCHOLESTEROLEM (16) Respiratory distress (17) Syncope Family History Diabetes mellitus FH: heart disease Hypertension Kidney disease Kidney stones Lung disease Social History Smoking Status: Current Some Day Smoker Alcohol Use: occasionally Drug Use: none Marital Status: Housing Status: lives with family Occupation Status: retired Current/Historical Medications Scheduled Aspirin (Aspirin Chewable), 81 MG PO QPM Atorvastatin Calcium (Lipitor), 80 MG PO HS Carvedilol (Coreg), 12.5 MG PO BID Clopidogrel Bisulfate (Plavix), 75 MG PO QAM Ezetimibe (Zetia), 10 MG PO HS Fluticasone Prop/Salmeterol (Advair Diskus 500/50 60 Dose), 1 PUFFS INH BID Ipratropium-Albuterol (Combivent Respimat), 1 PUFFS INH QID Lisinopril (Lisinopril), 5 MG PO QAM Potassium Chloride (Micro-K Ext Rel), 10 MEQ PO DAILY Pramipexole Dihydrochloride (Pramipexole Dihydrochlori), 1 TAB PO HS Sertraline (Zoloft), 50 MG PO QAM Scheduled PRN Furosemide (Furosemide), 20 MG PO DAILY PRN for FLUID Allergies Coded Allergies: Sulfa Antibiotics (Verified Allergy, Intermediate, RASH, 08/12/17) Morphine (Verified Adverse Reaction, Mild, GI SYMPTOMS, 08/12/17) Physical Exam Vital Signs Date Time Temp Pulse Resp B/P (MAP) Pulse Ox O2 Delivery O2 Flow Rate FiO2 08/12/17 19:57 84 16 140/63 91 Room Air 08/12/17 18:14 86 08/12/17 18:13 93 Room Air 08/12/17 18:13 85 24 146/74 93 Room Air 08/12/17 16:23 91 Room Air 08/12/17 16:21 36.6 100 18 127/71 92 Physical Exam GENERAL: Awake, alert, well-appearing, NAD HENT: Normocephalic, atraumatic. EYES: Normal conjunctiva. Sclera non-icteric. NECK: Supple. No nuchal rigidity. FROM. RESPIRATORY: Mild tachypnea. Shallow breath sounds. Trace wheezes. Bibasilar crackles. CARDIAC: RRR, no MRG ABDOMEN: Soft, NTND, BS+ MSK: Bilateral LE edema 2+. No chest wall TTP NEURO: GCS 15, CN 2-12 intact, moves all 4s on command SKIN: No rash or jaundice noted. Medical Decision & Procedures ER Provider Diagnostic Interpretation: Radiology results as stated below per my review and radiologist interpretation: SINGLE VIEW CHEST CLINICAL HISTORY: Dyspnea. FINDINGS: An AP, portable, upright chest radiograph is compared to study dated 05/31/2017 and correlated with chest CT dated 03/12/2017. The examination is degraded by portable technique, apical lordotic positioning, and patient rotation. A 3-lead cardiac AICD is unchanged in position and partially obscures the left mid chest. The cardiomediastinal heart is markedly enlarged and there is atherosclerotic calcification of the thoracic aorta. The pulmonary vasculature is noncongested. Emphysema and chronic interstitial thickening are similar to previous. Foci of linear atelectasis versus scarring are again seen at the lung bases, greatest in the lingula. No airspace consolidation is seen typical for pneumonia. No large pleural effusion or pneumothorax is seen. The skeletal structures are osteopenic. The bony thorax is grossly intact. IMPRESSION: 1. Cardiomegaly and AICD. There is no radiographic evidence of congestive failure. 2. Advanced emphysema. No airspace consolidation or large pleural effusion is identified. Electronically signed by: Antonio Astorga M.D. 08/12/2017 6:19 PM Dictated Date/Time: 08/12/2017 6:17 PM Laboratory Results 08/12/17 17:50 Red Blood Count 3.59, Mean Corpuscular Volume 91.6, Mean Corpuscular Hemoglobin 30.4, Mean Corpuscular Hemoglobin Concent 33.1, Mean Platelet Volume 9.4, Neutrophils (%) (Auto) 65.3, Lymphocytes (%) (Auto) 24.1, Monocytes (%) (Auto) 9.3, Eosinophils (%) (Auto) 0.8, Basophils (%) (Auto) 0.3, Neutrophils # (Auto) 4.01, Lymphocytes # (Auto) 1.48, Monocytes # (Auto) 0.57, Eosinophils # (Auto) 0.05, Basophils # (Auto) 0.02 08/12/17 17:50 Test 08/12/17 17:50 08/12/17 18:16 08/12/17 19:17 White Blood Count 6.14 K/uL (4.8-10.8) Red Blood Count 3.59 M/uL (4.2-5.4) Hemoglobin 10.9 g/dL (12.0-16.0) Hematocrit 32.9 % (37-47) Mean Corpuscular Volume 91.6 fL (80-100) Mean Corpuscular Hemoglobin 30.4 pg (25-34) Mean Corpuscular Hemoglobin Concent 33.1 g/dl (32-36) Platelet Count 256 K/uL (130-400) Mean Platelet Volume 9.4 fL (7.4-10.4) Neutrophils (%) (Auto) 65.3 % Lymphocytes (%) (Auto) 24.1 % Monocytes (%) (Auto) 9.3 % Eosinophils (%) (Auto) 0.8 % Basophils (%) (Auto) 0.3 % Neutrophils # (Auto) 4.01 K/uL (1.4-6.5) Lymphocytes # (Auto) 1.48 K/uL (1.2-3.4) Monocytes # (Auto) 0.57 K/uL (0.11-0.59) Eosinophils # (Auto) 0.05 K/uL (0-0.5) Basophils # (Auto) 0.02 K/uL (0-0.2) RDW Standard Deviation 56.8 fL (36.4-46.3) RDW Coefficient of Variation 16.9 % (11.5-14.5) Immature Granulocyte % (Auto) 0.2 % Immature Granulocyte # (Auto) 0.01 K/uL (0.00-0.02) Prothrombin Time 11.8 SECONDS (9.0-12.0) Prothromb Time International Ratio 1.1 (0.9-1.1) Activated Partial Thromboplast Time 30.7 SECONDS (21.0-31.0) Partial Thromboplastin Ratio 1.2 Anion Gap 11.0 mmol/L (3-11) Est Creatinine Clear Calc Drug Dose 40.3 ml/min Estimated GFR () 72.5 Estimated GFR (Non- 62.6 BUN/Creatinine Ratio 33.8 (10-20) Calcium Level 9.1 mg/dl (8.5-10.1) Total Bilirubin 0.7 mg/dl (0.2-1) Aspartate Amino Transf (AST/SGOT) 23 U/L (15-37) Alanine Aminotransferase (ALT/SGPT) 34 U/L (12-78) Alkaline Phosphatase 77 U/L (45-117) Troponin I 0.064 ng/ml (0-0.045) Pro-B-Type Natriuretic Peptide 02866 pg/ml (0-900) Total Protein 7.4 gm/dl (6.4-8.2) Albumin 3.5 gm/dl (3.4-5.0) Globulin 3.9 gm/dl (2.5-4.0) Albumin/Globulin Ratio 0.9 (0.9-2) Urine Color YELLOW Urine Appearance CLOUDY (CLEAR) Urine pH 7.0 (4.5-7.5) Urine Specific Posey 1.011 (1.000-1.030) Urine Protein NEG (NEG) Urine Glucose (UA) NEG (NEG) Urine Ketones NEG (NEG) Urine Occult Blood NEG (NEG) Urine Nitrite NEG (NEG) Urine Bilirubin NEG (NEG) Urine Urobilinogen NEG (NEG) Urine Leukocyte Esterase NEG (NEG) Urine WBC (Auto) /hpf (0-5) Urine RBC (Auto) /hpf (0-4) Urine Hyaline Casts (Auto) /lpf (0-5) Urine Epithelial Cells (Auto) /lpf (0-5) Urine Bacteria (Auto) (NEG) Urine RBC 0-4 /hpf (0-4) Urine WBC 0 /hpf (0-5) Urine Epithelial Cells 0-5 /lpf (0-5) Urine Bacteria NEG (NEG) Venous Blood pH 7.47 (7.36-7.41) Venous Blood Partial Pressure CO2 39 mmHg (38.0-50.0) Venous Blood Partial Pressure O2 37 mmHg Venous Blood HCO3 28 mmol/L Venous Blood Oxygen Saturation 69.1 % Venous Blood Base Excess 3.7 mEq/L Laboratory results reviewed by me Medications Administered Medications (Trade) Dose Ordered Sig/Osmani Route Start Time Stop Time Status Last Admin Dose Admin Methylprednisolone Sodium Succinate (Solu-Medrol IV) 125 mg NOW STAT IV 08/12/17 18:55 08/12/17 18:56 DC 08/12/17 19:06 125 MG Albuterol/ Ipratropium (Duoneb) 3 ml ONE STAT INH 08/12/17 18:55 08/12/17 18:56 DC 08/12/17 19:07 3 ML Azithromycin (Zithromax Tab) 500 mg NOW ONCE PO 08/12/17 19:00 08/12/17 19:02 DC 08/12/17 19:07 500 MG Aspirin (Aspirin Chew) 324 mg NOW STAT PO 08/12/17 20:17 08/12/17 20:18 DC 08/12/17 20:17 324 MG ECG Indication: SOB/dyspnea Rate (beats per minute): 90 Rhythm: other (V paced) Findings: Q waves (inferior and lateral), T-wave inversion (lead 2 and AVL), other (Wide QRS. Prolonged QTc.) Comparison ECG Date: 05/23 Change: no significant change ED Course 1747: The patient was evaluated in room B6. A complete history and physical exam was performed. 1949: I reevaluated the patient and discussed the treatment plan with her, and she was agreeable. 1955: Discussed the patient's case with Dr. Estevez. The patient will be evaluated for further treatment and disposition. Medical Decision The patient is a 72 year old white female with a past medical history of COPD, CHF, stroke, who presents to the ED with a cc of constant shortness of breath beginning a couple of days ago. Triage Nursing notes reviewed. The patient's presentation and history were concerning for etiologies such as infections, reactive airway disease, pneumonia, pneumothorax, COPD, CHF, cardiac ischemia, pulmonary embolism, musculoskeletal, gastrointestinal, as well as others were entertained. Patient was seen and evaluated the bedside. Patient states that she does use oxygen at home but only in the evening. Patient does admit to smoking several cigarettes per day. Patient states that she feels as though this may be more related to her CHF. On exam patient did have some scattered wheezing and bibasilar crackles. Patient states that she did not have any orthopnea and no PND although she typically did have the bed propped up but this was chronic and did not have any acute changes in the number of pillows used or with the elevation of her bed. Patient did have some bilateral lower extremity swelling. Initially on my exam I was more concerned about possible COPD exacerbations the patient was given Solu-Medrol, DuoNeb was, and as a through. Upon reexamination of the patient patient states she only felt mildly improved. Patient did have mildly elevated troponin with an elevated BNP which may be lead more likely to CHF exacerbation. Patient's EKG did not show any major changes. Patient was counseled on smoking cessation. Patient does have a history of AICD and acute on chronic CHF. She also may have some valvular abnormalities which may contribute to this. Patient was given a full dose aspirin and I did admit the patient to the medicine service for further evaluation and treatment. Medication Reconcilliation Current Medication List: was personally reviewed by me Blood Pressure Screening Patient's blood pressure: Elevated blood pressure Monitored by the hospitalist Consults Time Called: 1949 Consulting Physician: Dr. Estevez Returned Call: 1955 Discussed the patient's case with Dr. Estevez. The patient will be evaluated for further treatment and disposition. Impression Primary Impression: Acute exacerbation of CHF (congestive heart failure) Additional Impressions: Elevated troponin SOB (shortness of breath) Encounter for smoking cessation counseling Scribe Attestation The scribe's documentation has been prepared under my direction and personally reviewed by me in its entirety. I confirm that the note above accurately reflects all work, treatment, procedures, and medical decision making performed by me. Departure Information Dispostion Being Evaluated By Hospitalist Referrals RV. Edwards MD (PCP) Patient Instructions [facility] Problem Qualifiers Primary Impression: Acute exacerbation of CHF (congestive heart failure) Congestive heart failure type: unspecified congestive heart failure type Qualified Codes: I50.9 - Heart failure, unspecified
--- NOTE | 2017-08-12 18:20 | DIAGNOSTIC IMAGING REPORT ---
SINGLE VIEW CHEST CLINICAL HISTORY: Dyspnea. FINDINGS: An AP, portable, upright chest radiograph is compared to study dated 05/31/2017 and correlated with chest CT dated 03/12/2017. The examination is degraded by portable technique, apical lordotic positioning, and patient rotation. A 3-lead cardiac AICD is unchanged in position and partially obscures the left mid chest. The cardiomediastinal heart is markedly enlarged and there is atherosclerotic calcification of the thoracic aorta. The pulmonary vasculature is noncongested. Emphysema and chronic interstitial thickening are similar to previous. Foci of linear atelectasis versus scarring are again seen at the lung bases, greatest in the lingula. No airspace consolidation is seen typical for pneumonia. No large pleural effusion or pneumothorax is seen. The skeletal structures are osteopenic. The bony thorax is grossly intact. IMPRESSION: 1. Cardiomegaly and AICD. There is no radiographic evidence of congestive failure. 2. Advanced emphysema. No airspace consolidation or large pleural effusion is identified. Electronically signed by: Antonio Astorga M.D. 08/12/2017 6:19 PM Dictated Date/Time: 08/12/2017 6:17 PM
[2017-08-12 18:22] LABS: INR 1.1 (0.9-1.1); PARTIAL THROMBOPLASTIN RATIO 1.2; PROTHROMBIN TIME (PATIENT) 11.8 SECONDS (9.0-12.0)
[2017-08-12 18:29] LABS: URINE APPEARANCE CLOUDY (CLEAR); URINE BILIRUBIN NEG (NEG); URINE COLOR YELLOW; URINE NITRITE NEG (NEG); URINE SPECIFIC GRAVITY 1.011 (1.000-1.030); UROBILINOGEN NEG (NEG)
[2017-08-12 18:30] LABS: BUN/CREATININE RATIO 33.8 (10-20); CALCIUM 9.1 mg/dl (8.5-10.1); CREATININE 0.91 mg/dl (0.60-1.20); POTASSIUM 3.3 mmol/L (3.5-5.1)
[2017-08-12 18:35] LABS: MANUAL MICROSCOPIC REQUIRED? YES; REVIEW REQ? NO
[2017-08-12 18:45] LABS: URINE BACTERIA NEG (NEG); URINE RBC 0-4 /hpf (0-4); URINE WBC 0 /hpf (0-5)
[2017-08-12] MEDS ORDERED: ALBUT/IPRATROP 3MG/0.5MG NEB 3 ML VIAL INH STA (18:55)
[2017-08-12] MEDS ORDERED: METHYLPREDNISOLONE 125 MG VIAL IV STA (18:55)
[2017-08-12] MEDS ORDERED: AZITHROMYCIN 250 MG TAB PO ONE (19:00)
[2017-08-12 19:26] LABS: ALB/GLOB RATIO 0.9 (0.9-2)
[2017-08-12 19:50] LABS: VEN BLD GAS O2 SATURATION 69.1 %; VEN BLOOD GAS BASE EXCESS 3.7 mEq/L
[2017-08-12] MEDS ORDERED: POLYETHYLENE (MIRALAX) 17 GM PACK PO PRN (20:00)
[2017-08-12] MEDS ORDERED: ACETAMINOPHEN 325 MG TAB PO PRN (20:00)
[2017-08-12] MEDS ORDERED: NITROGLYCERIN 0.4 MG SL PER TAB CHARGE SL PRN (20:00)
[2017-08-12] MEDS ORDERED: MAGNESIUM HYDROXIDE SUSP 30 ML UDC PO PRN (20:00)
[2017-08-12] MEDS ORDERED: ALUMINUM/MAGNESIUM/SIMETH (MAALOX MAX) 30 ML UDC PO PRN (20:00)
[2017-08-12] MEDS ORDERED: ONDANSETRON INJ 2 MG/ML 2 ML VIAL IV PRN (20:00)
[2017-08-12] MEDS ORDERED: POTASSIUM CHLORIDE 10 MEQ TABCR PO STA (20:15)
[2017-08-12] MEDS ORDERED: ALBUTEROL 0.083% NEBU SOLN 3 ML VIAL INH PRN (20:15)
[2017-08-12] MEDS ORDERED: ASPIRIN 324 MG CHEW PO STA (20:17)
--- NOTE | 2017-08-12 20:20 | History and Physical ---
History & Physical Date & Time of Service: Aug 12, 2017 at 20:00 Chief Complaint: SOB Primary Care Physician: RV. 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 Presents with progressive SOB x 2 days and was exhibiting mild respiratory distress on arrival to the ER. The pt uses 3L 02 HS which she has been using during the day also recently.. She responded well to Duonebs, 02 and IV steroids in the ER. She denies CP, productive cough, N/V , fevers. Initial imaging and exam are consistent with exacerbation of COPD. The pt continues to smoke a few cigarettes daily. Past Medical/Surgical History 1) CHF - ischemic cardiomyopathy - EF 25-30% 2) CAD - inf [place] 2000 3) HTN 4) HPL 5) COPD 6) Mesenteric ischemia 7) Abdominal aortic stenosis 8) Carotid stenosis - L CEA 9) Moderate aortic stenosis 10) Severe MR 11) LBBB 12) Biventricular pacer / defib 13) Ischemic bowel 02/19. 14) Abdominal aortic stenting on 03/19. 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 16) Anemia - Hb 10-11 Surgical: 1) SCOT-BSO 2) Defib/pacer 3) Carpal tunnel 4) L CEA Family History Diabetes mellitus FH: heart disease Hypertension Kidney disease Kidney stones Lung disease Social History Smoking Status: Current Some Day Smoker Drug Use: none Marital Status: Housing status: lives with family Occupational Status: retired Immunizations History of Influenza Vaccine: Yes Influenza Vaccine Date: Oct 12, 2012 History of Tetanus Vaccine?: Unknown History of Pneumococcal: Unknown History of Hepatitis B Vaccine: No Multi-Drug Resistant Organisms History of MDRO: No Allergies Coded Allergies: Sulfa Antibiotics (Verified Allergy, Intermediate, RASH, 08/12/17) Morphine (Verified Adverse Reaction, Mild, GI SYMPTOMS, 08/12/17) Home Medications Scheduled Aspirin (Aspirin Chewable), 81 MG PO QPM Atorvastatin Calcium (Lipitor), 80 MG PO HS Carvedilol (Coreg), 12.5 MG PO BID Clopidogrel Bisulfate (Plavix), 75 MG PO QAM Ezetimibe (Zetia), 10 MG PO HS Fluticasone Prop/Salmeterol (Advair Diskus 500/50 60 Dose), 1 PUFFS INH BID Ipratropium-Albuterol (Combivent Respimat), 1 PUFFS INH QID Lisinopril (Lisinopril), 5 MG PO QAM Potassium Chloride (Micro-K Ext Rel), 10 MEQ PO DAILY Pramipexole Dihydrochloride (Pramipexole Dihydrochlori), 1 TAB PO HS Sertraline (Zoloft), 50 MG PO QAM Scheduled PRN Furosemide (Furosemide), 20 MG PO DAILY PRN for FLUID Review of Systems Constitutional: No fever, No chills, No sweats Eyes: No worsening of vision ENT: No hearing loss, No unusual epistaxis, No nasal symptoms Respiratory: + shortness of breath, + dyspnea on exertion, + dyspnea at rest, No cough, No sputum, No wheezing Cardiovascular: No chest pain Abdomen: No pain, No nausea, No vomiting Musculoskeletal: No joint pain Genitourinary - Female: No dysuria, No urinary frequency, No urinary urgency Neurologic: No memory loss, No paralysis Psychiatric: No depression symptoms Endocrine: No fatigue Hematologic / Lymphatic: No abnormal bleeding/bruising Integumentary: No rash Allergic / Immunologic: No environmental allergies Physical Exam Vital Signs Date Time Temp Pulse Resp B/P (MAP) Pulse Ox O2 Delivery O2 Flow Rate FiO2 08/12/17 18:14 86 08/12/17 18:13 93 Room Air 08/12/17 18:13 85 24 146/74 93 Room Air 08/12/17 16:23 91 Room Air 08/12/17 16:21 36.6 100 18 127/71 92 General Appearance: WD/WN, no apparent distress Head: normocephalic Eyes: normal inspection ENT: normal ENT inspection, pharynx normal Neck: supple, no JVD Respiratory/Chest: chest non-tender, + decreased breath sounds, + accessory muscle use, + pertinent finding (Very poor b/l air movement) Cardiovascular: regular rate, rhythm, no edema, no gallop, no JVD, no murmur, normal peripheral pulses Abdomen/GI: normal bowel sounds, non tender Back: normal inspection, no CVA tenderness, no muscle spasm, normal range of motion Extremities/Musculoskelatal: normal inspection, no calf tenderness, normal capillary refill Neurologic/Psych: hand bulldozer II-XII nml as tested, alert, oriented x 3, + pertinent finding (There is chronic mild distal LUE weakness ) Skin: normal color, warm/dry Diagnostics Laboratory Results Results Past 24 Hours Test 08/12/17 17:50 08/12/17 18:16 08/12/17 19:17 Range/Units White Blood Count 6.14 4.8-10.8 K/uL Red Blood Count 3.59 4.2-5.4 M/uL Hemoglobin 10.9 12.0-16.0 g/dL Hematocrit 32.9 37-47 % Mean Corpuscular Volume 91.6 80-100 fL Mean Corpuscular Hemoglobin 30.4 25-34 pg Mean Corpuscular Hemoglobin Concent 33.1 32-36 g/dl Platelet Count 256 130-400 K/uL Mean Platelet Volume 9.4 7.4-10.4 fL Neutrophils (%) (Auto) 65.3 % Lymphocytes (%) (Auto) 24.1 % Monocytes (%) (Auto) 9.3 % Eosinophils (%) (Auto) 0.8 % Basophils (%) (Auto) 0.3 % Neutrophils # (Auto) 4.01 1.4-6.5 K/uL Lymphocytes # (Auto) 1.48 1.2-3.4 K/uL Monocytes # (Auto) 0.57 0.11-0.59 K/uL Eosinophils # (Auto) 0.05 0-0.5 K/uL Basophils # (Auto) 0.02 0-0.2 K/uL RDW Standard Deviation 56.8 36.4-46.3 fL RDW Coefficient of Variation 16.9 11.5-14.5 % Immature Granulocyte % (Auto) 0.2 % Immature Granulocyte # (Auto) 0.01 0.00-0.02 K/uL Prothrombin Time 11.8 9.0-12.0 SECONDS Prothromb Time International Ratio 1.1 0.9-1.1 Activated Partial Thromboplast Time 30.7 21.0-31.0 SECONDS Partial Thromboplastin Ratio 1.2 Sodium Level 137 136-145 mmol/L Potassium Level 3.3 3.5-5.1 mmol/L Chloride Level 99 98-107 mmol/L Carbon Dioxide Level 27 21-32 mmol/L Anion Gap 11.0 3-11 mmol/L Blood Urea Nitrogen 31 7-18 mg/dl Creatinine 0.91 0.60-1.20 mg/dl Est Creatinine Clear Calc Drug Dose 40.3 ml/min Estimated GFR () 72.5 Estimated GFR (Non- 62.6 BUN/Creatinine Ratio 33.8 10-20 Random Glucose 88 70-99 mg/dl Calcium Level 9.1 8.5-10.1 mg/dl Total Bilirubin 0.7 0.2-1 mg/dl Aspartate Amino Transf (AST/SGOT) 23 15-37 U/L Alanine Aminotransferase (ALT/SGPT) 34 12-78 U/L Alkaline Phosphatase 77 45-117 U/L Troponin I 0.064 0-0.045 ng/ml Pro-B-Type Natriuretic Peptide 29935 0-900 pg/ml Total Protein 7.4 6.4-8.2 gm/dl Albumin 3.5 3.4-5.0 gm/dl Globulin 3.9 2.5-4.0 gm/dl Albumin/Globulin Ratio 0.9 0.9-2 Urine Color YELLOW Urine Appearance CLOUDY CLEAR Urine pH 7.0 4.5-7.5 Urine Specific [place] 1.011 1.000-1.030 Urine Protein NEG NEG Urine Glucose (UA) NEG NEG Urine Ketones NEG NEG Urine Occult Blood NEG NEG Urine Nitrite NEG NEG Urine Bilirubin NEG NEG Urine Urobilinogen NEG NEG Urine Leukocyte Esterase NEG NEG Urine WBC (Auto) 0-5 /hpf Urine RBC (Auto) 0-4 /hpf Urine Hyaline Casts (Auto) 0-5 /lpf Urine Epithelial Cells (Auto) 0-5 /lpf Urine Bacteria (Auto) NEG Urine RBC 0-4 0-4 /hpf Urine WBC 0 0-5 /hpf Urine Epithelial Cells 0-5 0-5 /lpf Urine Bacteria NEG NEG Diagnostic Radiology CXR: COPD Impression Assessment and Plan 71 y/o F with complex med Hx including systolic CHF (25%), COPD, CAD, anemia, abdominal aortic stenosis with history of mesenteric infarct, 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 Presents with progressive SOB x 2 days and was exhibiting mild respiratory distress on arrival to the ER. The pt uses 3L 02 HS which she has been using during the day also recently.. She responded well to Duonebs, 02 and IV steroids in the ER. She denies CP, productive cough, N/V , fevers. Initial imaging and exam are consistent with exacerbation of COPD. The pt continues to smoke a few cigarettes daily. 1) SOB - COPD exacerbation - will treat with Duonebs, IV steroids, 02, Abx. pt appears comfortable following initial treatment in ER. 2) CHF - chronic systolic - she takes Lasix PRN only and had taken 40mg this AM - this may bay contributing to her SOB although clinically she does not exhibit volume excess. Would reassess AM for additional Lasix. Cont Lisinopril, Bblocker 3) CAD - trop is chronically elevated - appears lower than baseline - no current symptoms consistent with ACS - cont ASA, Bblockers, Statin. 4) Hx CVA - receiving statin, ASA, Plavix 5) Anemia - Hb at/above baseline Full code - SCDs due to recent hemorrhage Total time for this admit including review of labs, meds, imaging - discussion with pt and ER attending - 39 min Level of Care Telemetry Resuscitation Status FULL RESUSCITATION VTE Prophylaxis Given or contraindicated: SCD's
[2017-08-12] MEDS: ALBUT/IPRATROP 3MG/0.5MG NEB 3 ML VIAL INH SCH (21:00)
[2017-08-12] MEDS ORDERED: IPRATROPIUM BROMIDE/ALBUTEROL respimat INH INH SCH (21:00)
[2017-08-12 21:30] VITALS: BP 141/80; PULSE 98; TEMP 36.5; O2SAT 97; Ht 157.5 cm; Wt 47.9 kg
[2017-08-12] MEDS ORDERED: HEPARIN SOD 5000 UNIT/0.5 ML CARP SQ SCH (22:00)
[2017-08-12] MEDS ORDERED: MAGNESIUM SULFATE 1GM / D5W 1 GM in PREMIXED IN D5W 100 ML IV STA (22:13)
[2017-08-12 23:20] VITALS: BP 106/66; PULSE 91; TEMP 36.8; O2SAT 96
[2017-08-12] MEDS: FLUTICASONE/SALMETEROL (ADVAIR) 500/50 INH 14 PUFF INH SCH (23:28)
[2017-08-12] MEDS: ASPIRIN 81 MG ECTAB PO SCH (23:29)
[2017-08-12] MEDS: PRAMIPEXOLE DIHYDROCHLORIDE 0.25MG TAB PO SCH (23:29)
[2017-08-12] MEDS: EZETIMIBE 10MG TAB PO SCH (23:30)
[2017-08-12] MEDS: ATORVASTATIN 20 MG TAB PO SCH (23:30)
[2017-08-12] MEDS: CARVEDILOL 12.5 MG TAB PO SCH (23:30)
[2017-08-12] MEDS: METHYLPREDNISOLONE IV 40 MG in SYRINGE 0 ML IV SCH (23:32)
[2017-08-13] VITALS (13 sets, daily range): BP systolic 100–121; BP diastolic 45–56; PULSE 70–89; TEMP 36.4–36.9; O2SAT 91–98
[2017-08-13] MEDS: ALBUT/IPRATROP 3MG/0.5MG NEB 3 ML VIAL INH SCH ×4 (01:54→19:29)
[2017-08-13] MEDS: METHYLPREDNISOLONE IV 40 MG in SYRINGE 0 ML IV SCH ×3 (06:14→17:38)
[2017-08-13 07:01] LABS: HEMATOCRIT 31.9 % (37-47); MEAN CELL VOLUME 91.4 fL (80-100); MEAN CORPUSCULAR HEMOGLOBIN 29.5 pg (25-34); MEAN CORPUSCULAR HGB CONC 32.3 g/dl (32-36); PLATELET COUNT 219 K/uL (130-400); RED BLOOD COUNT 3.49 M/uL (4.2-5.4); WHITE BLOOD COUNT 2.82 K/uL (4.8-10.8)
[2017-08-13 07:51] LABS: BUN/CREATININE RATIO 34.1 (10-20); CALCIUM 9.2 mg/dl (8.5-10.1); CREATININE 0.82 mg/dl (0.60-1.20); MAGNESIUM 2.4 mg/dl (1.8-2.4); POTASSIUM 3.9 mmol/L (3.5-5.1)
[2017-08-13] MEDS: FLUTICASONE/SALMETEROL (ADVAIR) 500/50 INH 14 PUFF INH SCH ×2 (08:47→20:02)
[2017-08-13] MEDS: CARVEDILOL 12.5 MG TAB PO SCH ×2 (08:48→20:04)
[2017-08-13] MEDS: POTASSIUM CHLORIDE 10 MEQ TABCR PO SCH (08:48)
[2017-08-13] MEDS: SERTRALINE HCL 50 MG TAB PO SCH (08:48)
[2017-08-13] MEDS: CLOPIDOGREL BISULFATE 75 MG TAB PO SCH (08:48)
[2017-08-13] MEDS: LISINOPRIL 5 MG TAB PO SCH (08:48)
[2017-08-13] MEDS ORDERED: FRS/40 PO (14:55)
[2017-08-13] MEDS ORDERED: FUROSEMIDE INJ 20 MG in SYRINGE 0 ML IV SCH (15:00)
--- NOTE | 2017-08-13 17:08 | Cardiology Consultation ---
Cardiology Consultation Date of Consultation: Aug 13, 2017. Requesting Physician: Dr. Barahona Reason for Consultation: SOB Pt evaluation today including: conversation w/ patient, physical exam, lab review, review of studies, review of inpatient medication list, conversation w/ attending History of Present Illness This is a very pleasant 72-year-old woman with a history of myocardial infarction in 1999, progressive cardiomyopathy subsequently. In 2011 for ejection fraction was around 30% with moderate to severe mitral regurgitation. She also has a long-standing left bundle branch block, therefore she underwent biventricular ICD implantation on 02/21/2012. This improved her symptoms, her ejection fraction improved somewhat in 2013 however subsequently had dropped back to 25-30% range and she had been maintained on optimal medications. Her ICD was replaced on 02/21/2017 using the original leads. More recently she had a CVA in late May 2017, the source is not clear but I believe it was felt (when evaluated at [facility]) to be cardioembolic but not necessarily from the atrium. She did not have clear evidence of atrial fibrillation and her device does monitor for it. Anticoagulation was considered , however she had hemorrhagic conversion so she has not been on anticoagulation. She has recovered quite well from her stroke with only some left residual hand weakness. She presents now with worsening shortness of breath for several days. She has had difficulty with edema recently but does not feel that it is worse over the last few days. Her symptoms are primarily with exertion, she does not seem to have PND. Past Medical/Surgical History (1) ASTHMA, UNSPECIFIED (2) CHRONIC KIDNEY DISEASE, UNSPECIFIED (3) CORONARY ATHEROSCLEROSIS OF [place] CORONARY VESSEL (4) DIAB CAS[place] WO COMPL, TYPE II OR UNSPEC TYPE, NOT UNCNTRLD (5) Cardiac defibrillator in place Family History Diabetes mellitus FH: heart disease Hypertension Kidney disease Kidney stones Lung disease Social History Smoking Status: Current Every Day Smoker History of Alcohol Use: No Review of Systems Constitutional: No fever, No weight loss, No weakness Respiratory: + shortness of breath, No cough, No wheezing, No dyspnea on exertion Cardiac: No chest pain, No orthopnea, No PND, No edema, No palpitations Abdomen: No pain, No nausea, No vomiting, No diarrhea, No GI bleeding Female : No problem reported Neurologic: No paralysis, No weakness, No numbness/tingling, No balance problems Heme: No abnormal bleeding/bruising, No clotting problems Endo: No fatigue Skin: No problem reported All Other Systems: Reviewed and Negative Allergies Coded Allergies: Sulfa Antibiotics (Verified Allergy, Intermediate, RASH, 08/12/17) Morphine (Verified Adverse Reaction, Mild, GI SYMPTOMS, 08/12/17) Medications Current Inpatient Medications Medications (Trade) Dose Ordered Sig/[place]mani Route Start Time Stop Time Status Last Admin Dose Admin Acetaminophen (Tylenol Tab) 650 mg Q4H PRN PO 08/12/17 20:00 09/11/17 19:59 Al Hydrox/Mg Hydrox/Simethicone (Maalox Max Susp) 15 ml Q4H PRN PO 08/12/17 20:00 09/11/17 19:59 Magnesium Hydroxide (Milk Of Magnesia Susp) 30 ml Q12H PRN PO 08/12/17 20:00 09/11/17 19:59 Ondansetron HCl (Zofran Inj) 4 mg Q6H PRN IV 08/12/17 20:00 09/11/17 19:59 Nitroglycerin (Nitrostat Tab) 0.4 mg UD PRN SL 08/12/17 20:00 09/11/17 19:59 Polyethylene (Miralax Powder Packet) 17 gm DAILY PRN PO 08/12/17 20:00 09/11/17 19:59 Albuterol/ Ipratropium (Duoneb) 3 ml Q6R INH 08/12/17 21:00 09/11/17 20:59 08/13/17 15:36 3 ML Albuterol Sulfate (Ventolin 0.083% 2.5MG/3ML Neb) 2.5 mg Q4R PRN INH 08/12/17 20:15 09/11/17 20:14 Azithromycin 250 mg/Dextrose 252.5 ml @ 125 mls/hr DAILY@1800 IV 08/13/17 18:00 08/19/17 17:59 Methylprednisolone Sodium Succinate 40 mg/Syringe 0.64 ml @ 1.5 mls/min Q6H IV 08/13/17 00:00 09/12/17 00:00 08/13/17 13:14 1.5 MLS/MIN Aspirin (Ecotrin Tab) 81 mg QPM PO 08/12/17 22:17 09/11/17 22:16 08/12/17 23:29 81 MG Atorvastatin Calcium (Lipitor Tab) 80 mg HS PO 08/12/17 21:00 09/11/17 20:59 08/12/17 23:30 80 MG Carvedilol (Coreg Tab) 12.5 mg BID PO 08/12/17 21:00 09/11/17 20:59 08/13/17 08:48 12.5 MG Clopidogrel Bisulfate (plAVix TAB) 75 mg QAM PO 08/13/17 09:00 09/12/17 08:59 08/13/17 08:48 75 MG EZETIMIBE (Zetia Tab) 10 mg HS PO 08/12/17 21:00 09/11/17 20:59 08/12/17 23:30 10 MG Salmeterol Xinafoate/ Fluticasone (Advair Diskus 500/50 Inh) 1 puff BID INH 08/12/17 21:00 09/11/17 20:59 08/13/17 08:47 1 PUFF Albuterol/ Ipratropium (Combivent Respimat Inh) 1 puffs QID INH 08/12/17 21:00 09/11/17 20:59 Future Hold 08/12/17 23:32 1 PUFFS Lisinopril (Zestril Tab) 5 mg QAM PO 08/13/17 09:00 09/12/17 08:59 08/13/17 08:48 5 MG Potassium Chloride (Klor-Con M10) 10 meq DAILY PO 08/13/17 09:00 09/12/17 08:59 08/13/17 08:48 10 MEQ Pramipexole Dihydrochloride (miraPEX TAB) 0.25 mg HS PO 08/12/17 21:00 09/11/17 20:59 08/12/17 23:29 0.25 MG Sertraline HCl (Zoloft Tab) 50 mg QAM PO 08/13/17 09:00 09/12/17 08:59 08/13/17 08:48 50 MG Furosemide (Lasix Tab) 40 mg QAM PO 08/14/17 09:00 09/13/17 08:59 Physical Exam Vital Signs Past 12 Hours Date Time Temp Pulse Resp B/P (MAP) Pulse Ox O2 Delivery O2 Flow Rate FiO2 08/13/17 15:38 36.7 78 18 108/56 (73) 96 Nasal Cannula 3.0 08/13/17 15:36 72 16 96 Nasal Cannula 3.0 08/13/17 13:27 96 Nasal Cannula 3.0 08/13/17 11:25 36.4 83 26 101/54 (70) 92 08/13/17 08:00 93 Nasal Cannula 3.0 08/13/17 07:59 36.5 82 20 109/45 (66) 93 08/13/17 07:18 78 16 94 Nasal Cannula 3.0 Constitutional: General Apperance: heathly-appearing Level of Distress: NAD Psychiatric: Mental Status: active & alert Head: normocephalic Eyes: EOM: EOMI ENMT: normal ENT inspection, hearing grossly normal Neck: supple, no masses Lungs: Respiratory effort: no dyspnea Auscultation: breath sounds normal, no wheezing, deminished air movement Cardiovascular: Heart Auscultation: RRR, no murmurs, no rubs, no gallops Peripheral Pulses: Bruits: none appreciated Abdomen: Bowel Sounds: normal Inspection & Palpation: soft, no tenderness, guarding & rebound, no masses Musculoskeletal: pertinent finding (L hand weakness) Extremities: no edema Neurologic: Cranial Nerves: grossly intact Sensation: grossly intact Data Laboratory Results: Last 24 Hours Test 08/12/17 17:50 08/12/17 18:16 08/12/17 19:17 08/12/17 22:57 White Blood Count 6.14 K/uL Red Blood Count 3.59 M/uL Hemoglobin 10.9 g/dL Hematocrit 32.9 % Mean Corpuscular Volume 91.6 fL Mean Corpuscular Hemoglobin 30.4 pg Mean Corpuscular Hemoglobin Concent 33.1 g/dl Platelet Count 256 K/uL Mean Platelet Volume 9.4 fL Neutrophils (%) (Auto) 65.3 % Lymphocytes (%) (Auto) 24.1 % Monocytes (%) (Auto) 9.3 % Eosinophils (%) (Auto) 0.8 % Basophils (%) (Auto) 0.3 % Neutrophils # (Auto) 4.01 K/uL Lymphocytes # (Auto) 1.48 K/uL Monocytes # (Auto) 0.57 K/uL Eosinophils # (Auto) 0.05 K/uL Basophils # (Auto) 0.02 K/uL RDW Standard Deviation 56.8 fL RDW Coefficient of Variation 16.9 % Immature Granulocyte % (Auto) 0.2 % Immature Granulocyte # (Auto) 0.01 K/uL Prothrombin Time 11.8 SECONDS Prothromb Time International Ratio 1.1 Activated Partial Thromboplast Time 30.7 SECONDS Partial Thromboplastin Ratio 1.2 Sodium Level 137 mmol/L Potassium Level 3.3 mmol/L Chloride Level 99 mmol/L Carbon Dioxide Level 27 mmol/L Anion Gap 11.0 mmol/L Blood Urea Nitrogen 31 mg/dl Creatinine 0.91 mg/dl Est Creatinine Clear Calc Drug Dose 40.3 ml/min Estimated GFR () 72.5 Estimated GFR (Non- 62.6 BUN/Creatinine Ratio 33.8 Random Glucose 88 mg/dl Calcium Level 9.1 mg/dl Total Bilirubin 0.7 mg/dl Aspartate Amino Transf (AST/SGOT) 23 U/L Alanine Aminotransferase (ALT/SGPT) 34 U/L Alkaline Phosphatase 77 U/L Troponin I 0.064 ng/ml 0.060 ng/ml Pro-B-Type Natriuretic Peptide 21363 pg/ml Total Protein 7.4 gm/dl Albumin 3.5 gm/dl Globulin 3.9 gm/dl Albumin/Globulin Ratio 0.9 Urine Color YELLOW Urine Appearance CLOUDY Urine pH 7.0 Urine Specific [place] 1.011 Urine Protein NEG Urine Glucose (UA) NEG Urine Ketones NEG Urine Occult Blood NEG Urine Nitrite NEG Urine Bilirubin NEG Urine Urobilinogen NEG Urine Leukocyte Esterase NEG Urine WBC (Auto) /hpf Urine RBC (Auto) /hpf Urine Hyaline Casts (Auto) /lpf Urine Epithelial Cells (Auto) /lpf Urine Bacteria (Auto) Urine RBC 0-4 /hpf Urine WBC 0 /hpf Urine Epithelial Cells 0-5 /lpf Urine Bacteria NEG Venous Blood pH 7.47 Venous Blood Partial Pressure CO2 39 mmHg Venous Blood Partial Pressure O2 37 mmHg Venous Blood HCO3 28 mmol/L Venous Blood Oxygen Saturation 69.1 % Venous Blood Base Excess 3.7 mEq/L Test 08/13/17 06:35 White Blood Count 2.82 K/uL Red Blood Count 3.49 M/uL Hemoglobin 10.3 g/dL Hematocrit 31.9 % Mean Corpuscular Volume 91.4 fL Mean Corpuscular Hemoglobin 29.5 pg Mean Corpuscular Hemoglobin Concent 32.3 g/dl RDW Standard Deviation 56.5 fL RDW Coefficient of Variation 16.8 % Platelet Count 219 K/uL Mean Platelet Volume 9.0 fL Sodium Level 138 mmol/L Potassium Level 3.9 mmol/L Chloride Level 103 mmol/L Carbon Dioxide Level 27 mmol/L Anion Gap 8.0 mmol/L Blood Urea Nitrogen 28 mg/dl Creatinine 0.82 mg/dl Est Creatinine Clear Calc Drug Dose 44.1 ml/min Estimated GFR () 82.3 Estimated GFR (Non- 71.0 BUN/Creatinine Ratio 34.1 Random Glucose 127 mg/dl Calcium Level 9.2 mg/dl Magnesium Level 2.4 mg/dl Imaging: Her chest x-ray shows cardiomegaly and no clear pulmonary edema by my reading EKG: Sinus rhythm with atrial sensing and biventricular pacing with a wide complex Telemetry reviewed: Sinus rhythm with ventricular pacing, occasional episodes of sudden increased heart rate in the low 90s, mechanism uncertain. ICD evaluation: We did interrogate his ICD, it is functioning well and she has had no detected tachycardia since her May interrogation and no atrial arrhythmias. She has had an elevation of her Optivol consistent with fluid retention, starting in May and continuing. Assessment & Plan #1. Shortness of breath: I suspect this is multifactorial, probably pulmonary with an element of congestive heart failure. She is not in severe pulmonary edema but her Optivol suggest that she has lung fluid, and she has had that in the office recently and has been diuresed. I would suggest gentle diuresis along with treating her lung disease. #2. CVA: If this is cardioembolic then perhaps anticoagulation should be considered, I believe this to be evaluated at [facility] in the near future and they may make that determination. She does not have atrial arrhythmias requiring anticoagulation. #3. Changes in heart rate: She has sudden increases in heart rate from the 70s into the low 90s, we were interrogating her pacer during one of these episodes. It is not clear what causes this, it could be an atrial tachycardia or even a pacemaker mediated tachycardia at a quite low heart rate for that. He is probably not very important, the heart rate is in the low 90s and asymptomatic. We can follow this on telemetry. #4. Biventricular ICD: Her ICD is working well, with excellent battery longevity. Details of the interrogation are noted above with increased Optivol ( measure of fluid retention) and no atrial arrhythmias identified. Thank you for allowing me to participate in her care.
[2017-08-13] MEDS: AZITHROMYCIN IV 250 MG in DEXTROSE 5% 250ML 250 ML IV SCH (17:37)
[2017-08-13] MEDS: PRAMIPEXOLE DIHYDROCHLORIDE 0.25MG TAB PO SCH (20:00)
[2017-08-13] MEDS: EZETIMIBE 10MG TAB PO SCH (20:00)
[2017-08-13] MEDS: ASPIRIN 81 MG ECTAB PO SCH (20:01)
[2017-08-13] MEDS: ATORVASTATIN 20 MG TAB PO SCH (20:01)
[2017-08-13] MEDS ORDERED: ALPRAZOLAM 0.25 MG TAB PO PRN (20:15)
--- NOTE | 2017-08-13 23:56 | Hospitalist Progress Note ---
Hospitalist Progress Note Date of Service Aug 13, 2017. Subjective Pt evaluation today including: conversation w/ patient, conversation w/ homemaking rehabilitation consultant (Cardiology) Pt feeling a little better with her breathing. Has only gained about 1 lb of weight recently, no significant leg swelling now, but did a few weeks ago. She is taking lasix 40mg daily in AM and 20mg in afternoons prn weight gain -I changed her home med rec to reflect this. No CP, has a chronic cough but not worse lately, no sputum production. Has not had her pacer interrogated recently Respiratory: + shortness of breath Cardiovascular: No chest pain Abdomen: No pain, No nausea, No diarrhea, No constipation All Other Systems: Reviewed and Negative Objective Vital Signs Date Time Temp Pulse Resp B/P (MAP) Pulse Ox O2 Delivery O2 Flow Rate FiO2 08/13/17 13:27 96 Nasal Cannula 3.0 08/13/17 11:25 36.4 83 26 101/54 (70) 92 08/13/17 08:00 93 Nasal Cannula 3.0 08/13/17 07:59 36.5 82 20 109/45 (66) 93 08/13/17 07:18 78 16 94 Nasal Cannula 3.0 08/13/17 04:00 Nasal Cannula 2.0 08/13/17 03:58 36.9 78 23 121/53 (75) 98 Nasal Cannula 2.0 08/13/17 01:54 70 16 94 Nasal Cannula 3.0 08/12/17 23:59 Nasal Cannula 3.0 08/12/17 23:20 36.8 91 29 106/66 (79) 96 Nasal Cannula 3.0 08/12/17 21:30 36.5 98 28 141/80 97 Nasal Cannula 3.0 08/12/17 19:57 84 16 140/63 91 Room Air 08/12/17 18:14 86 08/12/17 18:13 93 Room Air 08/12/17 18:13 85 24 146/74 93 Room Air 08/12/17 16:23 91 Room Air 08/12/17 16:21 36.6 100 18 127/71 92 Physical Exam General Appearance: no apparent distress, + thin Eyes: normal inspection, sclerae normal ENT: hearing grossly normal, pharynx normal (no thrush) Neck: no adenopathy, trachea midline Respiratory/Chest: no respiratory distress, no accessory muscle use, + decreased breath sounds (throughout, +faint wheezes insp and exp) Cardiovascular: regular rate, rhythm, no edema, no murmur Abdomen: normal bowel sounds, non tender, soft, no organomegaly Extremities: non-tender, normal inspection, no pedal edema, no calf tenderness Neurologic/Psychiatric: alert, normal mood/affect, oriented x 3 Skin: normal color, warm/dry, no rash Laboratory Results Last 24 Hours Test 08/12/17 17:50 08/12/17 18:16 08/12/17 19:17 08/12/17 22:57 White Blood Count 6.14 K/uL Red Blood Count 3.59 M/uL Hemoglobin 10.9 g/dL Hematocrit 32.9 % Mean Corpuscular Volume 91.6 fL Mean Corpuscular Hemoglobin 30.4 pg Mean Corpuscular Hemoglobin Concent 33.1 g/dl Platelet Count 256 K/uL Mean Platelet Volume 9.4 fL Neutrophils (%) (Auto) 65.3 % Lymphocytes (%) (Auto) 24.1 % Monocytes (%) (Auto) 9.3 % Eosinophils (%) (Auto) 0.8 % Basophils (%) (Auto) 0.3 % Neutrophils # (Auto) 4.01 K/uL Lymphocytes # (Auto) 1.48 K/uL Monocytes # (Auto) 0.57 K/uL Eosinophils # (Auto) 0.05 K/uL Basophils # (Auto) 0.02 K/uL RDW Standard Deviation 56.8 fL RDW Coefficient of Variation 16.9 % Immature Granulocyte % (Auto) 0.2 % Immature Granulocyte # (Auto) 0.01 K/uL Prothrombin Time 11.8 SECONDS Prothromb Time International Ratio 1.1 Activated Partial Thromboplast Time 30.7 SECONDS Partial Thromboplastin Ratio 1.2 Sodium Level 137 mmol/L Potassium Level 3.3 mmol/L Chloride Level 99 mmol/L Carbon Dioxide Level 27 mmol/L Anion Gap 11.0 mmol/L Blood Urea Nitrogen 31 mg/dl Creatinine 0.91 mg/dl Est Creatinine Clear Calc Drug Dose 40.3 ml/min Estimated GFR () 72.5 Estimated GFR (Non- 62.6 BUN/Creatinine Ratio 33.8 Random Glucose 88 mg/dl Calcium Level 9.1 mg/dl Total Bilirubin 0.7 mg/dl Aspartate Amino Transf (AST/SGOT) 23 U/L Alanine Aminotransferase (ALT/SGPT) 34 U/L Alkaline Phosphatase 77 U/L Troponin I 0.064 ng/ml 0.060 ng/ml Pro-B-Type Natriuretic Peptide 09577 pg/ml Total Protein 7.4 gm/dl Albumin 3.5 gm/dl Globulin 3.9 gm/dl Albumin/Globulin Ratio 0.9 Urine Color YELLOW Urine Appearance CLOUDY Urine pH 7.0 Urine Specific [place] 1.011 Urine Protein NEG Urine Glucose (UA) NEG Urine Ketones NEG Urine Occult Blood NEG Urine Nitrite NEG Urine Bilirubin NEG Urine Urobilinogen NEG Urine Leukocyte Esterase NEG Urine WBC (Auto) /hpf Urine RBC (Auto) /hpf Urine Hyaline Casts (Auto) /lpf Urine Epithelial Cells (Auto) /lpf Urine Bacteria (Auto) Urine RBC 0-4 /hpf Urine WBC 0 /hpf Urine Epithelial Cells 0-5 /lpf Urine Bacteria NEG Venous Blood pH 7.47 Venous Blood Partial Pressure CO2 39 mmHg Venous Blood Partial Pressure O2 37 mmHg Venous Blood HCO3 28 mmol/L Venous Blood Oxygen Saturation 69.1 % Venous Blood Base Excess 3.7 mEq/L Test 08/13/17 06:35 White Blood Count 2.82 K/uL Red Blood Count 3.49 M/uL Hemoglobin 10.3 g/dL Hematocrit 31.9 % Mean Corpuscular Volume 91.4 fL Mean Corpuscular Hemoglobin 29.5 pg Mean Corpuscular Hemoglobin Concent 32.3 g/dl RDW Standard Deviation 56.5 fL RDW Coefficient of Variation 16.8 % Platelet Count 219 K/uL Mean Platelet Volume 9.0 fL Sodium Level 138 mmol/L Potassium Level 3.9 mmol/L Chloride Level 103 mmol/L Carbon Dioxide Level 27 mmol/L Anion Gap 8.0 mmol/L Blood Urea Nitrogen 28 mg/dl Creatinine 0.82 mg/dl Est Creatinine Clear Calc Drug Dose 44.1 ml/min Estimated GFR () 82.3 Estimated GFR (Non- 71.0 BUN/Creatinine Ratio 34.1 Random Glucose 127 mg/dl Calcium Level 9.2 mg/dl Magnesium Level 2.4 mg/dl Assessment and Plan The patient is a 72-year-old white female with a complex past medical history significant for CAD/inferior [place] 1999, hypertension, dyslipidemia, type 2 diabetes mellitus, COPD, prior tobacco abuse, systolic/diastolic CHF and ischemic cardiomyopathy (EF 25-30%), S/P Medtronic ICD/BiV pacemaker implantation 02/21/12 with elective generator replacement 02/21/2017, severe mitral regurgitation, peripheral arterial disease (S/P right iliofemoral endarterectomy and popliteal/SFA angioplasties 05/04/13, mesenteric arterial occlusive disease S/P superior mesenteric stent placement 05/03/2017, carotid disease status post left CEA 1990), hyponatremia, and recent right MCA territory ischemic stroke with hemorrhagic conversion versus traumatic right subarachnoid hemorrhage in May 2017 with residual LUE weakness. She presents with progressive SOB x 2 days and was exhibiting mild respiratory distress on arrival to the ER. The pt uses 3L 02 HS which she has been using during the day also recently. She responded well to Duonebs, 02 and IV steroids in the ER. She denies CP, productive cough, N/V, fevers. Initial imaging and exam are consistent with exacerbation of COPD. The pt continues to smoke a few cigarettes daily. SOB - COPD exacerbation - slightly improved today -Continue to treat with Duonebs, IV steroids and taper down, 02, azithromycin 5 day course. Chronic systolic CHF/CAD/PAD/severe MR/hypertension/dyslipidemia/ischemic cardiomyopathy/PPM/VICK - impedance readings on pacer interrogation today to indicate signs of pulmonary edema recently in the last 2 months that has slightly improved over the last week. She does indeed take Lasix 40 mg once daily in the mornings and reports her leg swelling has actually improved in the last week, she is only had 1 pound weight gain. However, her BNP is 27,000, she has significant cardiomegaly on chest x-ray but no significant pulmonary vascular congestion noted. -Cont Lisinopril, Bblocker -Missed her by mouth Lasix this morning as was not originally on home medication reconciliation -We'll give one dose of IV Lasix 40 mg 1 now and restart her 40 mg by mouth daily in the morning -Consideration should be made for repair of her mitral valve at some point -Cardiology consultation appreciated -trop is chronically elevated - appears lower than baseline - no current symptoms consistent with ACS - cont ASA, Bblockers, Statin. Hx CVA - receiving statin, ASA, Plavix Anemia - Hb at/above baseline Full code - SCDs due to recent hemorrhage
[2017-08-14] VITALS (13 sets, daily range): BP systolic 103–122; BP diastolic 52–74; PULSE 74–90; TEMP 36.4–36.7; O2SAT 90–98
[2017-08-14] MEDS: METHYLPREDNISOLONE IV 40 MG in SYRINGE 0 ML IV SCH ×5 (00:50→23:20)
[2017-08-14] MEDS: ALBUT/IPRATROP 3MG/0.5MG NEB 3 ML VIAL INH SCH ×4 (02:30→20:48)
[2017-08-14 06:07] LABS: COMPLETE YES; HEMATOCRIT 29.5 % (37-47); IG% 0.4 %; LYMPH % 8.3 %; LYMPH ABS # 0.69 K/uL (1.2-3.4); MEAN CORPUSCULAR HEMOGLOBIN 29.3 pg (25-34); MEAN CORPUSCULAR HGB CONC 32.2 g/dl (32-36); MEAN PLATELET VOLUME 8.9 fL (7.4-10.4); MONO % 3.2 %; NEUT % 88.1 %; PLATELET COUNT 208 K/uL (130-400); RED BLOOD COUNT 3.24 M/uL (4.2-5.4); WHITE BLOOD COUNT 8.36 K/uL (4.8-10.8)
[2017-08-14 06:40] LABS: BUN/CREATININE RATIO 36.3 (10-20); CREATININE 0.96 mg/dl (0.60-1.20); MAGNESIUM 2.3 mg/dl (1.8-2.4); POTASSIUM 4.2 mmol/L (3.5-5.1)
[2017-08-14] MEDS: FLUTICASONE/SALMETEROL (ADVAIR) 500/50 INH 14 PUFF INH SCH ×2 (07:59→21:19)
[2017-08-14] MEDS: LISINOPRIL 5 MG TAB PO SCH (07:59)
[2017-08-14] MEDS: FUROSEMIDE 40 MG TAB PO SCH (07:59)
[2017-08-14] MEDS: POTASSIUM CHLORIDE 10 MEQ TABCR PO SCH (08:00)
[2017-08-14] MEDS: CARVEDILOL 12.5 MG TAB PO SCH ×2 (08:00→21:18)
[2017-08-14] MEDS: SERTRALINE HCL 50 MG TAB PO SCH (08:00)
[2017-08-14] MEDS: CLOPIDOGREL BISULFATE 75 MG TAB PO SCH (08:00)
--- NOTE | 2017-08-14 10:55 | Cardiology Follow-Up ---
Subjective Date of Service: Aug 14, 2017. Pt evaluation today including: conversation w/ patient, physical exam, lab review, review of studies, review of inpatient medication list History of Present Illness This is a very pleasant 72-year-old woman with a history of myocardial infarction in 1999, progressive cardiomyopathy subsequently. In 2011 for ejection fraction was around 30% with moderate to severe mitral regurgitation. She also has a long-standing left bundle branch block, therefore she underwent biventricular ICD implantation on 02/21/2012. This improved her symptoms, her ejection fraction improved somewhat in 2013 however subsequently had dropped back to 25-30% range and she had been maintained on optimal medications. Her ICD was replaced on 02/21/2017 using the original leads. More recently she had a CVA in late May 2017, the source is not clear but I believe it was felt (when evaluated at [facility]) to be cardioembolic but not necessarily from the atrium. She did not have clear evidence of atrial fibrillation and her device does monitor for it. Anticoagulation was considered , however she had hemorrhagic conversion so she has not been on anticoagulation. She has recovered quite well from her stroke with only some left residual hand weakness. She presents now with worsening shortness of breath for several days. She has had difficulty with edema recently but does not feel that it is worse over the last few days. Her symptoms are primarily with exertion, she does not seem to have PND. ICD evaluation suggested an increase in interim thoracic fluid over the last several months consistent with her presentation. No evidence of atrial arrhythmias on ICD evaluation. Today she feels well, she was laying flat in her bed when I saw her and was not short of breath. She is alert and oriented. She is not having chest discomfort or shortness of breath. Social History Smoking Status: Current Every Day Smoker History of Alcohol Use: No Review of Systems Respiratory: No cough, No wheezing, No shortness of breath, No dyspnea on exertion Cardiac: No chest pain, No orthopnea, No PND, No edema, No palpitations Medications Cardiovascular: Item Value Date Time Furosemide 40 mg 08/14/17 0900 (Lasix Tab) QAM/PO 08/14/17 0759 Clopidogrel 75 mg 08/13/17 0900 Bisulfate QAM/PO 08/14/17 0800 (plAVix TAB) Lisinopril 5 mg 08/13/17 0900 (Zestril Tab) QAM/PO 08/14/17 0759 Potassium Chloride 10 meq 08/13/17 0900 (Klor-Con M10) DAILY/PO 08/14/17 0800 Aspirin 81 mg 08/12/17 221 (Ecotrin Tab) QPM/PO 08/13/172000 Atorvastatin 80 mg 08/12/17 2100 Calcium HS/PO 08/13/172000 (Lipitor Tab) Carvedilol 12.5 mg 08/12/172099 (Coreg Tab) BID/PO 08/14/17 08 EZETIMIBE 10 mg 08/12/172099 (Zetia Tab) HS/PO 08/13/171999 Objective Vital Signs Past 12 Hours Date Time Temp Pulse Resp B/P (MAP) Pulse Ox O2 Delivery O2 Flow Rate FiO2 08/14/17 08:00 Nasal Cannula 2.0 08/14/17 07:58 36.7 90 18 122/70 (87) 98 2.0 08/14/17 07:03 86 15 97 Nasal Cannula 2.0 08/14/17 04:23 36.6 78 16 103/64 (77) 96 Nasal Cannula 2.0 08/14/17 04:00 Nasal Cannula 3.0 08/14/17 02:30 80 20 91 Nasal Cannula 2.0 08/14/17 00:12 36.4 81 16 114/54 (74) 91 Nasal Cannula 3.0 08/14/17 00:01 Nasal Cannula 3.0 Last Recorded Weight-Kilograms: 45.700 Physical Exam Constitutional: General Apperance: heathly-appearing Level of Distress: NAD Lungs: Respiratory effort: no dyspnea Auscultation: breath sounds normal, no wheezing, deminished air movement Cardiovascular: Heart Auscultation: RRR, no murmurs, no rubs, no gallops Peripheral Pulses: Bruits: none appreciated Extremities: no edema Data Laboratory Results: Last 24 Hours Test 08/14/17 05:55 White Blood Count 8.36 K/uL Red Blood Count 3.24 M/uL Hemoglobin 9.5 g/dL Hematocrit 29.5 % Mean Corpuscular Volume 91.0 fL Mean Corpuscular Hemoglobin 29.3 pg Mean Corpuscular Hemoglobin Concent 32.2 g/dl Platelet Count 208 K/uL Mean Platelet Volume 8.9 fL Neutrophils (%) (Auto) 88.1 % Lymphocytes (%) (Auto) 8.3 % Monocytes (%) (Auto) 3.2 % Eosinophils (%) (Auto) 0.0 % Basophils (%) (Auto) 0.0 % Neutrophils # (Auto) 7.37 K/uL Lymphocytes # (Auto) 0.69 K/uL Monocytes # (Auto) 0.27 K/uL Eosinophils # (Auto) 0.00 K/uL Basophils # (Auto) 0.00 K/uL RDW Standard Deviation 55.6 fL RDW Coefficient of Variation 16.6 % Immature Granulocyte % (Auto) 0.4 % Immature Granulocyte # (Auto) 0.03 K/uL Sodium Level 138 mmol/L Potassium Level 4.2 mmol/L Chloride Level 102 mmol/L Carbon Dioxide Level 28 mmol/L Anion Gap 8.0 mmol/L Blood Urea Nitrogen 35 mg/dl Creatinine 0.96 mg/dl Est Creatinine Clear Calc Drug Dose 37.7 ml/min Estimated GFR () 68.0 Estimated GFR (Non- 58.7 BUN/Creatinine Ratio 36.3 Random Glucose 145 mg/dl Calcium Level 9.0 mg/dl Magnesium Level 2.3 mg/dl Telemetry reviewed: Sinus rhythm with ventricular pacing appropriately. Assessment and Plan #1. Shortness of breath: I suspect this is multifactorial, probably pulmonary with an element of congestive heart failure. She has improved substantially with very little diuresis consistent with this at least partially being pulmonary in origin. I suspect however there is a cardiac component. #2. CVA: If this is cardioembolic then perhaps anticoagulation should be considered, I believe this to be evaluated at [facility] in the near future and they may make that determination. She does not have atrial arrhythmias requiring anticoagulation currently. #3. Changes in heart rate: She has sudden increases in heart rate from the 70s into the low 90s, we were interrogating her pacer during one of these episodes. It is not clear what causes this, it could be an atrial tachycardia or even a pacemaker mediated tachycardia, although it is at a quite low heart rate for that. This is probably not very important, the heart rate is in the low 90s and asymptomatic. We can follow this on telemetry. It has not recurred since yesterday, if it is a PMT it could have been triggered by an appropriate ventricular pacing due to mode switching from far field R-wave sensing which was observed yesterday and hopefully corrected with program changes done yesterday. #4. Biventricular ICD: Her ICD is working well, with excellent battery longevity. . Thank you for allowing me to participate in her care.
[2017-08-14] MEDS ORDERED: LORAZEPAM 0.5 MG TAB PO STA (15:56)
--- NOTE | 2017-08-14 16:03 | Hospitalist Progress Note ---
Hospitalist Progress Note Date of Service Aug 14, 2017. Subjective Pt evaluation today including: conversation w/ patient Pt still SOB with minimal exertion like getting up to the bathroom, feels maybe a little better than yesterday. Faheem reg diet, making urine, no BM today, no CP or other concerns. Feels anxious though and is requesting xanax All Other Systems: Reviewed and Negative Objective Vital Signs Date Time Temp Pulse Resp B/P (MAP) Pulse Ox O2 Delivery O2 Flow Rate FiO2 08/14/17 15:14 36.6 74 18 104/64 (77) 97 08/14/17 14:10 89 22 97 Nasal Cannula 2.0 08/14/17 12:00 Nasal Cannula 2.0 08/14/17 11:53 36.6 88 18 112/52 (72) 93 2.0 08/14/17 08:00 Nasal Cannula 2.0 08/14/17 07:58 36.7 90 18 122/70 (87) 98 2.0 08/14/17 07:03 86 15 97 Nasal Cannula 2.0 08/14/17 04:23 36.6 78 16 103/64 (77) 96 Nasal Cannula 2.0 08/14/17 04:00 Nasal Cannula 3.0 08/14/17 02:30 80 20 91 Nasal Cannula 2.0 08/14/17 00:12 36.4 81 16 114/54 (74) 91 Nasal Cannula 3.0 08/14/17 00:01 Nasal Cannula 3.0 08/13/17 20:00 93 Nasal Cannula 3.0 08/13/17 19:48 36.5 89 22 100/50 (67) 93 Nasal Cannula 2.0 08/13/17 19:31 84 20 91 Nasal Cannula 2.0 08/13/17 16:00 94 Nasal Cannula 3.0 Physical Exam General Appearance: no apparent distress (but appears anxious), + thin Eyes: normal inspection, sclerae normal ENT: hearing grossly normal Neck: trachea midline Respiratory/Chest: no respiratory distress, no accessory muscle use, + decreased breath sounds (throughout with diffuse insp and exp wheezes) Cardiovascular: regular rate, rhythm, no edema, no gallop, + systolic murmur (2 /6 at LLSB) Abdomen: normal bowel sounds, non tender, soft, no organomegaly Extremities: non-tender, normal inspection, no pedal edema, no calf tenderness Neurologic/Psychiatric: alert, oriented x 3, + pertinent finding (anxious, + psychomotor agitation) Skin: normal color, warm/dry, no rash Laboratory Results Last 24 Hours Test 08/14/17 05:55 White Blood Count 8.36 K/uL Red Blood Count 3.24 M/uL Hemoglobin 9.5 g/dL Hematocrit 29.5 % Mean Corpuscular Volume 91.0 fL Mean Corpuscular Hemoglobin 29.3 pg Mean Corpuscular Hemoglobin Concent 32.2 g/dl Platelet Count 208 K/uL Mean Platelet Volume 8.9 fL Neutrophils (%) (Auto) 88.1 % Lymphocytes (%) (Auto) 8.3 % Monocytes (%) (Auto) 3.2 % Eosinophils (%) (Auto) 0.0 % Basophils (%) (Auto) 0.0 % Neutrophils # (Auto) 7.37 K/uL Lymphocytes # (Auto) 0.69 K/uL Monocytes # (Auto) 0.27 K/uL Eosinophils # (Auto) 0.00 K/uL Basophils # (Auto) 0.00 K/uL RDW Standard Deviation 55.6 fL RDW Coefficient of Variation 16.6 % Immature Granulocyte % (Auto) 0.4 % Immature Granulocyte # (Auto) 0.03 K/uL Sodium Level 138 mmol/L Potassium Level 4.2 mmol/L Chloride Level 102 mmol/L Carbon Dioxide Level 28 mmol/L Anion Gap 8.0 mmol/L Blood Urea Nitrogen 35 mg/dl Creatinine 0.96 mg/dl Est Creatinine Clear Calc Drug Dose 37.7 ml/min Estimated GFR () 68.0 Estimated GFR (Non- 58.7 BUN/Creatinine Ratio 36.3 Random Glucose 145 mg/dl Calcium Level 9.0 mg/dl Magnesium Level 2.3 mg/dl Assessment and Plan The patient is a 72-year-old white female with a complex past medical history significant for CAD/inferior [place] 1999, hypertension, dyslipidemia, type 2 diabetes mellitus, COPD, prior tobacco abuse, systolic/diastolic CHF and ischemic cardiomyopathy (EF 25-30%), S/P Medtronic ICD/BiV pacemaker implantation 02/21/12 with elective generator replacement 02/21/2017, severe mitral regurgitation, peripheral arterial disease (S/P right iliofemoral endarterectomy and popliteal/SFA angioplasties 05/04/13, mesenteric arterial occlusive disease S/P superior mesenteric stent placement 05/03/2017, carotid disease status post left CEA 1990), hyponatremia, and recent right MCA territory ischemic stroke with hemorrhagic conversion versus traumatic right subarachnoid hemorrhage in May 2017 with residual LUE weakness. She presents with progressive SOB x 2 days and was exhibiting mild respiratory distress on arrival to the ER. The pt uses 3L 02 HS which she has been using during the day also recently. She responded well to Duonebs, 02 and IV steroids in the ER. She denies CP, productive cough, N/V, fevers. Initial imaging and exam are consistent with exacerbation of COPD. The pt continues to smoke a few cigarettes daily. SOB - COPD exacerbation - slightly improved today but about the same -Continue to treat with Duonebs -continue IV steroids at same dose for today and taper down when improving -continue supplemental 02 -continue azithromycin 5 day course, today day # 3/5 -encouraged smoking cessation Acute on Chronic systolic CHF/CAD/PAD/severe MR/hypertension/dyslipidemia/ ischemic cardiomyopathy/PPM/VICK/Demand ischemia - impedance readings on pacer interrogation indicate signs of pulmonary edema recently in the last 2 months that has slightly improved over the last week. She does indeed take Lasix 40 mg once daily in the mornings and reports her leg swelling has actually improved in the last week, she is only had 1 pound weight gain. However, her BNP is 27,000, she has significant cardiomegaly on chest x-ray but no significant pulmonary vascular congestion noted. Received 1 dose IV lasix with not much diuresis -Cont Lisinopril, Coreg --continue lasix 40 mg by mouth daily in the morning -Consideration should be made for repair of her mitral valve at some point -Cardiology consultation appreciated -trop is chronically elevated - appears lower than baseline - no current symptoms consistent with ACS - cont ASA, Bblockers, Statin. Hx CVA -thouht to be ischemic with hemorrhagic conversion vs traumatic SAH after fall induced by ischemic stroke. [facility] records hint at possible LV thomboembolism due to global hypokinesis and she is following up with Stroke Neuro next month to discuss starting anticoagulation - receiving statin, ASA, Plavix Anemia - Hb at/above baseline Full code - SCDs due to recent hemorrhage Dispo- to home in 1-2 days when COPD exacerbation improved
[2017-08-14] MEDS ORDERED: NICOTINE 7 MG/24 HR TDSY TD ONE (17:04)
[2017-08-14] MEDS: AZITHROMYCIN IV 250 MG in DEXTROSE 5% 250ML 250 ML IV SCH (17:50)
[2017-08-14] MEDS ORDERED: NURSING DECISION MEDICATION ORDER SCH (20:45)
[2017-08-14] MEDS ORDERED: COUGH DROP (SUGAR FREE) LOZ 24 LOZ/1 BOX PO PRN (21:15)
[2017-08-14] MEDS: PRAMIPEXOLE DIHYDROCHLORIDE 0.25MG TAB PO SCH (21:17)
[2017-08-14] MEDS: ATORVASTATIN 20 MG TAB PO SCH (21:18)
[2017-08-14] MEDS: EZETIMIBE 10MG TAB PO SCH (21:18)
[2017-08-14] MEDS: ASPIRIN 81 MG ECTAB PO SCH (21:18)
[2017-08-14] MEDS: LORAZEPAM 0.5 MG TAB PO PRN (23:20)
[2017-08-15] VITALS (14 sets, daily range): BP systolic 108–126; BP diastolic 60–72; PULSE 78–90; TEMP 36–36.8; O2SAT 93–97
[2017-08-15] MEDS: ALBUT/IPRATROP 3MG/0.5MG NEB 3 ML VIAL INH SCH ×4 (01:58→20:31)
[2017-08-15] MEDS: METHYLPREDNISOLONE IV 40 MG in SYRINGE 0 ML IV SCH ×4 (05:48→23:23)
[2017-08-15] MEDS: CLOPIDOGREL BISULFATE 75 MG TAB PO SCH (07:47)
[2017-08-15] MEDS: FUROSEMIDE 40 MG TAB PO SCH (07:47)
[2017-08-15] MEDS: POTASSIUM CHLORIDE 10 MEQ TABCR PO SCH (07:47)
[2017-08-15] MEDS: CARVEDILOL 12.5 MG TAB PO SCH ×2 (07:47→21:34)
[2017-08-15] MEDS: FLUTICASONE/SALMETEROL (ADVAIR) 500/50 INH 14 PUFF INH SCH ×2 (07:47→21:33)
[2017-08-15] MEDS: NICOTINE 7 MG/24 HR TDSY TD SCH (07:48)
[2017-08-15] MEDS: LISINOPRIL 5 MG TAB PO SCH (07:48)
[2017-08-15] MEDS: SERTRALINE HCL 50 MG TAB PO SCH (07:48)
[2017-08-15] MEDS ORDERED: GUAIFENESIN/CODEINE 200MG/20MG 10ML UDC PO ONE (13:47)
--- NOTE | 2017-08-15 13:53 | Hospitalist Progress Note ---
Hospitalist Progress Note Date of Service Aug 15, 2017. Subjective Pt evaluation today including: conversation w/ patient Pt has c/o bad cough that kept her up all night. Feels like she is less SOB with exertion than previously. Non-productive cough. Moving bowels, eating, no other concerns All Other Systems: Reviewed and Negative Objective Vital Signs Date Time Temp Pulse Resp B/P (MAP) Pulse Ox O2 Delivery O2 Flow Rate FiO2 08/15/17 11:45 Nasal Cannula 2.0 08/15/17 11:23 36.8 87 24 114/67 (83) 94 Nasal Cannula 2.0 08/15/17 09:16 94 Nasal Cannula 2.0 08/15/17 07:45 Nasal Cannula 2.0 08/15/17 07:27 36.5 87 24 113/69 (84) 94 Nasal Cannula 2.0 08/15/17 07:11 88 18 94 Nasal Cannula 2.0 08/15/17 04:20 36.0 82 22 126/60 (82) 95 2.0 08/15/17 04:00 Nasal Cannula 2.0 08/15/17 03:17 87 18 94 Nasal Cannula 2.0 08/15/17 00:25 36.5 78 18 114/72 (86) 97 08/14/17 23:15 Nasal Cannula 2.0 08/14/17 21:27 36.4 86 18 106/70 (82) 91 Room Air 08/14/17 21:22 85 115/74 (88) 08/14/17 20:49 81 18 90 Room Air 08/14/17 20:08 97 Nasal Cannula 2.0 08/14/17 16:02 97 Nasal Cannula 2.0 08/14/17 15:14 36.6 74 18 104/64 (77) 97 08/14/17 14:10 89 22 97 Nasal Cannula 2.0 Physical Exam General Appearance: no apparent distress, + thin Eyes: normal inspection, sclerae normal ENT: hearing grossly normal Neck: trachea midline Respiratory/Chest: no respiratory distress, no accessory muscle use, + decreased breath sounds (throughout with diffuse insp and exp wheezes) Cardiovascular: regular rate, rhythm, no edema, no murmur Abdomen: normal bowel sounds, non tender, soft, no organomegaly Extremities: non-tender, normal inspection, no pedal edema, no calf tenderness Neurologic/Psychiatric: alert, normal mood/affect, oriented x 3 Skin: normal color, warm/dry, no rash Assessment and Plan The patient is a 72-year-old white female with a complex past medical history significant for CAD/inferior [place] 1999, hypertension, dyslipidemia, type 2 diabetes mellitus, COPD, prior tobacco abuse, systolic/diastolic CHF and ischemic cardiomyopathy (EF 25-30%), S/P Medtronic ICD/BiV pacemaker implantation 02/21/12 with elective generator replacement 02/21/2017, severe mitral regurgitation, peripheral arterial disease (S/P right iliofemoral endarterectomy and popliteal/SFA angioplasties 05/04/13, mesenteric arterial occlusive disease S/P superior mesenteric stent placement 05/03/2017, carotid disease status post left CEA 1990), hyponatremia, and recent right MCA territory ischemic stroke with hemorrhagic conversion versus traumatic right subarachnoid hemorrhage in May 2017 with residual LUE weakness. She presents with progressive SOB x 2 days and was exhibiting mild respiratory distress on arrival to the ER. The pt uses 3L 02 HS which she has been using during the day also recently. She responded well to Duonebs, 02 and IV steroids in the ER. She denies CP, productive cough, N/V, fevers. Initial imaging and exam are consistent with exacerbation of COPD. The pt continues to smoke a few cigarettes daily. SOB - COPD exacerbation - with worsening harsh cough, nonproductive, but less SOB with exertion now -Continue to treat with Duonebs ATC -continue IV steroids at same dose for today given persistent significant wheezing -continue supplemental 02 and she will ambulate with POx today with RN to see if needs higher amount with exertion -continue azithromycin 5 day course, today day # 4/5 and switch to po today -encouraged smoking cessation -start guaifenesin w/ codeine 10ml q6h today for cough Acute on Chronic systolic CHF/CAD/PAD/severe MR/hypertension/dyslipidemia/ ischemic cardiomyopathy/PPM/VICK/Demand ischemia - impedance readings on pacer interrogation indicate signs of pulmonary edema recently in the last 2 months that has slightly improved over the last week. She does indeed take Lasix 40 mg once daily in the mornings and reports her leg swelling has actually improved in the last week, she is only had 1 pound weight gain. However, her BNP is 27,000, she has significant cardiomegaly on chest x-ray but no significant pulmonary vascular congestion noted. Received 1 dose IV lasix with not much diuresis Acute CHF has resolved. -Cont Lisinopril, Coreg --continue lasix 40 mg by mouth daily in the morning -Consideration should be made for repair of her mitral valve at some point -Cardiology consultation appreciated -trop is chronically elevated - appears lower than baseline - no current symptoms consistent with ACS - cont ASA, Bblockers, Statin. Hx CVA -thought to be ischemic with hemorrhagic conversion vs traumatic SAH after fall induced by ischemic stroke. [facility] records hint at possible LV thomboembolism due to global hypokinesis and she is following up with [facility]roke Neuro next month to discuss starting anticoagulation - receiving statin, ASA, Plavix Anemia - Hb at/above baseline Full code - SCDs due to recent hemorrhage Dispo- to home in 1-2 days when COPD exacerbation improved
[2017-08-15] MEDS: AZITHROMYCIN 250 MG TAB PO SCH (15:45)
[2017-08-15] MEDS: LORAZEPAM 0.5 MG TAB PO PRN ×2 (17:26→23:23)
[2017-08-15] MEDS: ATORVASTATIN 20 MG TAB PO SCH (21:34)
[2017-08-15] MEDS: PRAMIPEXOLE DIHYDROCHLORIDE 0.25MG TAB PO SCH (21:34)
[2017-08-15] MEDS: ASPIRIN 81 MG ECTAB PO SCH (21:34)
[2017-08-15] MEDS: EZETIMIBE 10MG TAB PO SCH (21:35)
[2017-08-15] MEDS: GUAIFENESIN/CODEINE 200MG/20MG 10ML UDC PO PRN (21:41)
[2017-08-16] VITALS (11 sets, daily range): BP systolic 115–121; BP diastolic 55–83; PULSE 70–90; TEMP 36.3–37; O2SAT 93–99
[2017-08-16] MEDS: ALBUT/IPRATROP 3MG/0.5MG NEB 3 ML VIAL INH SCH ×4 (01:40→19:29)
[2017-08-16] MEDS: METHYLPREDNISOLONE IV 40 MG in SYRINGE 0 ML IV SCH ×3 (06:04→21:47)
[2017-08-16] MEDS: GUAIFENESIN/CODEINE 200MG/20MG 10ML UDC PO PRN (06:09)
[2017-08-16] MEDS: CARVEDILOL 12.5 MG TAB PO SCH ×2 (08:12→21:48)
[2017-08-16] MEDS: FLUTICASONE/SALMETEROL (ADVAIR) 500/50 INH 14 PUFF INH SCH ×2 (08:12→21:46)
[2017-08-16] MEDS: SERTRALINE HCL 50 MG TAB PO SCH (08:13)
[2017-08-16] MEDS: FUROSEMIDE 40 MG TAB PO SCH (08:13)
[2017-08-16] MEDS: CLOPIDOGREL BISULFATE 75 MG TAB PO SCH (08:13)
[2017-08-16] MEDS: POTASSIUM CHLORIDE 10 MEQ TABCR PO SCH (08:14)
[2017-08-16] MEDS: LISINOPRIL 5 MG TAB PO SCH (08:14)
[2017-08-16] MEDS: NICOTINE 7 MG/24 HR TDSY TD SCH (08:15)
[2017-08-16] MEDS: LORAZEPAM 0.5 MG TAB PO PRN ×2 (12:31→22:09)
[2017-08-16] MEDS: AZITHROMYCIN 250 MG TAB PO SCH (14:36)
--- NOTE | 2017-08-16 17:41 | Hospitalist Progress Note ---
Hospitalist Progress Note Date of Service Aug 16, 2017. Subjective Pt evaluation today including: conversation w/ patient Pt feeling better today with her breathing, less cough. Started having a right sided and posterior headache today about 5-6/10 in severity. Says she had some headaches about 2 weeks ago and was prescribed gabapentin at bedtime by PCP but didn't like the SEs of the med and stopped. She says the HAs stopped after 3-4 days; she did not have any imaging of her head at that time. No weakness, numbness, or tingling. ENT: + sore throat (from coughing) All Other Systems: Reviewed and Negative Objective Vital Signs Date Time Temp Pulse Resp B/P (MAP) Pulse Ox O2 Delivery O2 Flow Rate FiO2 08/16/17 14:31 84 20 97 Nasal Cannula 2.0 08/16/17 12:42 36.3 80 18 115/64 (81) 97 2.0 08/16/17 12:00 Nasal Cannula 2.0 08/16/17 08:00 Nasal Cannula 2.0 08/16/17 07:32 36.5 88 16 121/83 (96) 98 2.0 08/16/17 06:57 85 20 97 Nasal Cannula 2.0 08/16/17 04:00 Nasal Cannula 2.0 08/16/17 03:55 36.6 83 18 118/73 (88) 96 Nasal Cannula 2.0 08/16/17 01:40 81 20 97 Nasal Cannula 2.0 08/16/17 00:00 Nasal Cannula 2.0 08/15/17 23:49 36.3 84 16 114/61 (78) 96 Nasal Cannula 2.0 08/15/17 20:31 85 18 93 Nasal Cannula 2.0 08/15/17 20:02 97 Nasal Cannula 2.0 08/15/17 19:37 36.6 87 18 108/65 (79) 95 Physical Exam General Appearance: WD/WN, no apparent distress Eyes: normal inspection, PERRL, EOMI, sclerae normal ENT: normal ENT inspection, pharynx normal (no thrush) Neck: trachea midline Respiratory/Chest: no respiratory distress, no accessory muscle use, + pertinent finding (moving air better throughout today, less wheezing, overall much improved) Cardiovascular: regular rate, rhythm, no edema, no murmur Abdomen: normal bowel sounds, non tender, soft Extremities: normal range of motion, non-tender, normal inspection, no pedal edema, no calf tenderness Neurologic/Psychiatric: senior scrum master II-XII nml as tested, no motor/sensory deficits, alert, normal mood/affect, oriented x 3 Skin: normal color, warm/dry, no rash Assessment and Plan The patient is a 72-year-old white female with a complex past medical history significant for CAD/inferior [place] 1999, hypertension, dyslipidemia, type 2 diabetes mellitus, COPD, prior tobacco abuse, systolic/diastolic CHF and ischemic cardiomyopathy (EF 25-30%), S/P Medtronic ICD/BiV pacemaker implantation 02/21/12 with elective generator replacement 02/21/2017, severe mitral regurgitation, peripheral arterial disease (S/P right iliofemoral endarterectomy and popliteal/SFA angioplasties 05/04/13, mesenteric arterial occlusive disease S/P superior mesenteric stent placement 05/03/2017, carotid disease status post left CEA 1990), hyponatremia, and recent right MCA territory ischemic stroke with hemorrhagic conversion versus traumatic right subarachnoid hemorrhage in May 2017 with residual LUE weakness. She presents with progressive SOB x 2 days and was exhibiting mild respiratory distress on arrival to the ER. The pt uses 3L 02 HS which she has been using during the day also recently. She responded well to Duonebs, 02 and IV steroids in the ER. She denies CP, productive cough, N/V, fevers. Initial imaging and exam are consistent with exacerbation of COPD. The pt continues to smoke a few cigarettes daily. SOB - COPD exacerbation - improving significantly today -Continue to treat with Duonebs ATC -taper down IV steroids to 40mg IV q8h today -continue supplemental 02 -continue azithromycin 5 day course, today day # 5/5 -stop -encouraged smoking cessation -continue guaifenesin w/ codeine 10ml q6h for cough Acute on Chronic systolic CHF/CAD/PAD/severe MR/hypertension/dyslipidemia/ ischemic cardiomyopathy/PPM/VICK/Demand ischemia - impedance readings on pacer interrogation indicate signs of pulmonary edema recently in the last 2 months that has slightly improved over the last week. She does indeed take Lasix 40 mg once daily in the mornings and reports her leg swelling has actually improved in the last week, she is only had 1 pound weight gain. However, her BNP is 27,000, she has significant cardiomegaly on chest x-ray but no significant pulmonary vascular congestion noted. Received 1 dose IV lasix with not much diuresis initially Acute CHF has resolved and wasn't very significant to begin with -Cont Lisinopril, Coreg --continue lasix 40 mg by mouth daily in the morning -Consideration should be made for repair of her mitral valve at some point -Cardiology consultation appreciated -trop is chronically elevated - appears lower than baseline - no current symptoms consistent with ACS - cont ASA, Bblockers, Statin. Headache-concern given recent h/o hemorrhagic conversion with CVA -check CT Head now -tylenol prn pain Hx CVA -thought to be ischemic with hemorrhagic conversion vs traumatic SAH after fall induced by ischemic stroke. [place] records hint at possible LV thomboembolism due to global hypokinesis and she is following up with [facility]roke Neuro next month to discuss starting anticoagulation - receiving statin, ASA, Plavix Anemia - Hb at/above baseline Full code - SCDs due to recent hemorrhage Dispo- to home in 1-2 days when COPD exacerbation improved
--- NOTE | 2017-08-16 18:02 | DIAGNOSTIC IMAGING REPORT ---
HEAD WITHOUT CONTRAST (CT) CLINICAL HISTORY: 72 years-old Female presenting with headache, h/o ischemic CVA with hemorrhagic conversion 05/2017. TECHNIQUE: Multidetector CT imaging of the head was performed without the use of intravenous contrast. IV contrast: None. A dose lowering technique was used consistent with the principles of ALARA (as low as reasonably achievable). COMPARISON: 07/18/2017. CT DOSE (mGy.cm): The estimated cumulative dose is 537.48 mGy.cm. FINDINGS: Hoisting Machine Operator topogram: Unremarkable. Ventricles and sulci normal in size. Periventricular and subcortical white matter hypoattenuation, nonspecific but likely indicative of chronic small vessel ischemic change. Chronic encephalomalacia/gliosis in the region of the right middle cerebral artery territory infarct in the right temporoparietal region. No mass effect or midline shift. No hemorrhage or acute territorial infarct. No extra-axial fluid collection. Paranasal sinuses and mastoid air cells clear. Calvarium intact. Bilateral [place] lenses are absent. IMPRESSION: 1. No acute intracranial pathology. 2. Chronic right MCA territory infarct and chronic small vessel ischemic change. Electronically signed by: Bob Calvert M.D. 08/16/2017 6:01 PM Dictated Date/Time: 08/16/2017 5:57 PM
[2017-08-16] MEDS: ASPIRIN 81 MG ECTAB PO SCH (21:47)
[2017-08-16] MEDS: EZETIMIBE 10MG TAB PO SCH (21:48)
[2017-08-16] MEDS: PRAMIPEXOLE DIHYDROCHLORIDE 0.25MG TAB PO SCH (21:49)
[2017-08-16] MEDS: ATORVASTATIN 20 MG TAB PO SCH (21:49)
[2017-08-17] VITALS (12 sets, daily range): BP systolic 110–132; BP diastolic 55–69; PULSE 72–80; TEMP 36.4–36.8; O2SAT 94–98
[2017-08-17] MEDS: ALBUT/IPRATROP 3MG/0.5MG NEB 3 ML VIAL INH SCH ×4 (02:38→19:05)
[2017-08-17] MEDS: METHYLPREDNISOLONE IV 40 MG in SYRINGE 0 ML IV SCH ×3 (06:28→22:06)
[2017-08-17] MEDS: FUROSEMIDE 40 MG TAB PO SCH (08:08)
[2017-08-17] MEDS: POTASSIUM CHLORIDE 10 MEQ TABCR PO SCH (08:08)
[2017-08-17] MEDS: FLUTICASONE/SALMETEROL (ADVAIR) 500/50 INH 14 PUFF INH SCH ×2 (08:08→22:06)
[2017-08-17 08:09] LABS: COMPLETE YES; HEMATOCRIT 31.9 % (37-47); IG% 0.2 %; LYMPH % 8.7 %; LYMPH ABS # 0.47 K/uL (1.2-3.4); MEAN CELL VOLUME 91.1 fL (80-100); MEAN CORPUSCULAR HEMOGLOBIN 29.7 pg (25-34); MEAN CORPUSCULAR HGB CONC 32.6 g/dl (32-36); MEAN PLATELET VOLUME 8.9 fL (7.4-10.4); MONO % 6.7 %; NEUT % 84.4 %; PLATELET COUNT 205 K/uL (130-400); WHITE BLOOD COUNT 5.41 K/uL (4.8-10.8)
[2017-08-17] MEDS: CLOPIDOGREL BISULFATE 75 MG TAB PO SCH (08:09)
[2017-08-17] MEDS: SERTRALINE HCL 50 MG TAB PO SCH (08:09)
[2017-08-17] MEDS: CARVEDILOL 12.5 MG TAB PO SCH ×2 (08:09→22:07)
[2017-08-17] MEDS: LISINOPRIL 5 MG TAB PO SCH (08:09)
[2017-08-17] MEDS: NICOTINE 7 MG/24 HR TDSY TD SCH (08:10)
[2017-08-17 08:44] LABS: BUN/CREATININE RATIO 43.2 (10-20); CALCIUM 8.4 mg/dl (8.5-10.1); MAGNESIUM 2.3 mg/dl (1.8-2.4); POTASSIUM 4.2 mmol/L (3.5-5.1)
[2017-08-17] MEDS: LORAZEPAM 0.5 MG TAB PO PRN ×2 (12:34→22:09)
--- NOTE | 2017-08-17 15:27 | Progress Note ---
Subjective Date of Service: Aug 17, 2017. Subjective Pt is seen and examined by me. Pt denies chest pain, dizziness, palpitation and loss of consciousness.Pt still have some non productive cough with wheezing. pt finish her antibiotic course. Pt still on high dose of methylprednisone. Pt denies any more headaches and explain her the results of her Ct scan. Pt denies blurry vision and headache.However patient feel much better. Pt is sat 94-96% on 2L NC. Problem List Medical Problems: (1) Acute asthma exacerbation Status: Acute (2) Acute bronchitis Status: Acute (3) Acute HI Status: Acute (4) Anemia Status: Acute (5) CHF (congestive heart failure) Status: Acute (6) CHF (congestive heart failure) Status: Acute (7) CHF (congestive heart failure) Status: Acute (8) COPD (chronic obstructive pulmonary disease) Status: Acute (9) Elevated troponin Status: Acute (10) Facial contusion Status: Acute (11) Hyponatremia Status: Acute (12) Hypoxia Status: Acute (13) Intracranial bleeding Status: Acute (14) Intractable nausea and vomiting Status: Acute (15) Mesenteric ischemia Status: Acute (16) Mesenteric ischemia Status: Acute (17) Multiple contusions Status: Acute (18) Nausea Status: Acute (19) Pulmonary edema Status: Acute (20) Pulmonary edema Status: Acute (21) Respiratory distress Status: Acute (22) SOB (shortness of breath) Status: Acute (23) Syncope Status: Acute Review of Systems All Other Systems: Reviewed and Negative Medications Medications (Trade) Dose Ordered Sig/[place]mani Route Start Time Stop Time Status Last Admin Dose Admin Methylprednisolone Sodium Succinate 40 mg/Syringe 0.64 ml @ 1.5 mls/min Q8 IV 08/16/17 22:00 09/12/17 00:00 08/17/17 14:06 1.5 MLS/MIN Objective Vital Signs Date Time Temp Pulse Resp B/P (MAP) Pulse Ox O2 Delivery O2 Flow Rate FiO2 08/17/17 14:16 74 20 97 Nasal Cannula 2.0 08/17/17 12:00 95 Nasal Cannula 2.0 08/17/17 11:06 36.5 72 18 120/65 (83) 96 Nasal Cannula 2.0 08/17/17 08:00 97 Nasal Cannula 2.0 08/17/17 07:28 36.4 80 22 125/69 (87) 97 Nasal Cannula 2.0 08/17/17 06:50 76 20 98 Nasal Cannula 2.0 08/17/17 04:00 Nasal Cannula 2.0 08/17/17 03:56 36.8 77 18 117/59 (78) 98 Nasal Cannula 2.0 08/17/17 00:00 Nasal Cannula 2.0 08/16/17 22:57 36.5 77 16 118/77 (91) 96 Nasal Cannula 2.0 08/16/17 20:01 97 Nasal Cannula 2.0 08/16/17 19:29 80 20 97 Nasal Cannula 2.0 08/16/17 19:27 36.5 90 16 115/55 (75) 93 Nasal Cannula 2.0 08/16/17 16:01 37.0 70 18 115/70 (85) 99 Nasal Cannula 2.0 08/16/17 16:01 97 Nasal Cannula 2.0 Physical Exam General Appearance: WD/WN, no apparent distress Eyes: EOMI Neck: supple Cardiovascular: regular rate, rhythm, no edema Abdomen: normal bowel sounds, soft Neurologic/Psychiatric: alert, oriented x 3 Skin: normal color, no rash Lymphatic: no adenopathy Laboratory Results Last 24 Hours Test 08/17/17 07:55 White Blood Count 5.41 K/uL Red Blood Count 3.50 M/uL Hemoglobin 10.4 g/dL Hematocrit 31.9 % Mean Corpuscular Volume 91.1 fL Mean Corpuscular Hemoglobin 29.7 pg Mean Corpuscular Hemoglobin Concent 32.6 g/dl Platelet Count 205 K/uL Mean Platelet Volume 8.9 fL Neutrophils (%) (Auto) 84.4 % Lymphocytes (%) (Auto) 8.7 % Monocytes (%) (Auto) 6.7 % Eosinophils (%) (Auto) 0.0 % Basophils (%) (Auto) 0.0 % Neutrophils # (Auto) 4.57 K/uL Lymphocytes # (Auto) 0.47 K/uL Monocytes # (Auto) 0.36 K/uL Eosinophils # (Auto) 0.00 K/uL Basophils # (Auto) 0.00 K/uL RDW Standard Deviation 54.1 fL RDW Coefficient of Variation 16.1 % Immature Granulocyte % (Auto) 0.2 % Immature Granulocyte # (Auto) 0.01 K/uL Sodium Level 135 mmol/L Potassium Level 4.2 mmol/L Chloride Level 102 mmol/L Carbon Dioxide Level 27 mmol/L Anion Gap 7.0 mmol/L Blood Urea Nitrogen 43 mg/dl Creatinine 1.00 mg/dl Est Creatinine Clear Calc Drug Dose 38.0 ml/min Estimated GFR () 64.7 Estimated GFR (Non- 55.8 BUN/Creatinine Ratio 43.2 Random Glucose 119 mg/dl Calcium Level 8.4 mg/dl Magnesium Level 2.3 mg/dl Assessment and Plan The patient is a 72-year-old white female with a complex past medical history significant for CAD/inferior [place] 1999, hypertension, dyslipidemia, type 2 diabetes mellitus, COPD, prior tobacco abuse, systolic/diastolic CHF and ischemic cardiomyopathy (EF 25-30%), S/P Medtronic ICD/BiV pacemaker implantation 02/21/12 with elective generator replacement 02/21/2017, severe mitral regurgitation, peripheral arterial disease (S/P right iliofemoral endarterectomy and popliteal/SFA angioplasties 05/04/13, mesenteric arterial occlusive disease S/P superior mesenteric stent placement 05/03/2017, carotid disease status post left CEA 1990), hyponatremia, and recent right MCA territory ischemic stroke with hemorrhagic conversion versus traumatic right subarachnoid hemorrhage in May 2017 with residual LUE weakness. She presents with progressive SOB x 2 days and was exhibiting mild respiratory distress on arrival to the ER. The pt uses 3L 02 HS which she has been using during the day also recently. She responded well to Duonebs, 02 and IV steroids in the ER. She denies CP, productive cough, N/V, fevers. Initial imaging and exam are consistent with exacerbation of COPD. The pt continues to smoke a few cigarettes daily. SOB - COPD exacerbation - improving but still cough with wheezing and some SOB. -Continue to treat with Duonebs ATC -taper down IV steroids to 40mg IV q12h today -continue supplemental 02 -azithromycin course completed. -encouraged smoking cessation -continue guaifenesin w/ codeine 10ml q6h for cough Acute on Chronic systolic CHF/CAD/PAD/severe MR/hypertension/dyslipidemia/ ischemic cardiomyopathy/PPM/VICK/Demand ischemia - impedance readings on pacer interrogation indicate signs of pulmonary edema recently in the last 2 months that has slightly improved over the last week. She does indeed take Lasix 40 mg once daily in the mornings and reports her leg swelling has actually improved in the last week, she is only had 1 pound weight gain. However, her BNP is 27,000, she has significant cardiomegaly on chest x-ray but no significant pulmonary vascular congestion noted. Received 1 dose IV lasix with not much diuresis initially Acute CHF has resolved and wasn't very significant to begin with --Cont Lisinopril, Coreg --continue lasix 40 mg by mouth daily in the morning -- Consideration should be made for repair of her mitral valve at some point -- Cardiology consultation appreciated -- trop is chronically elevated - appears lower than baseline - no current symptoms consistent with ACS - cont ASA, Bblockers, Statin. Headache-concern given recent h/o hemorrhagic conversion with CVA -check CT Head now -tylenol prn pain Hx CVA -thought to be ischemic with hemorrhagic conversion vs traumatic SAH after fall induced by ischemic stroke. [facility] records hint at possible LV thomboembolism due to global hypokinesis and she is following up with Stroke Neuro next month to discuss starting anticoagulation - receiving statin, ASA, Plavix Anemia - Hb at/above baseline Full code - SCDs due to recent hemorrhage\ Continued [facility] stay due to: multiple IV medications needed Discharge planning: home (with steriod taper)
[2017-08-17] MEDS: GUAIFENESIN/CODEINE 200MG/20MG 10ML UDC PO PRN (22:05)
[2017-08-17] MEDS: PRAMIPEXOLE DIHYDROCHLORIDE 0.25MG TAB PO SCH (22:07)
[2017-08-17] MEDS: EZETIMIBE 10MG TAB PO SCH (22:07)
[2017-08-17] MEDS: ATORVASTATIN 20 MG TAB PO SCH (22:07)
[2017-08-17] MEDS: ASPIRIN 81 MG ECTAB PO SCH (22:07)
[2017-08-18] VITALS (7 sets, daily range): BP systolic 126–133; BP diastolic 58–67; PULSE 73–77; TEMP 36.4–36.9; O2SAT 95–98
[2017-08-18] MEDS: ALBUT/IPRATROP 3MG/0.5MG NEB 3 ML VIAL INH SCH ×2 (01:56→07:23)
[2017-08-18] MEDS ORDERED: SODIUM CHLORIDE 0.65% NA SOLN 45 ML (OCEAN) ONE (07:35)
[2017-08-18] MEDS: POTASSIUM CHLORIDE 10 MEQ TABCR PO SCH (07:53)
[2017-08-18] MEDS: CARVEDILOL 12.5 MG TAB PO SCH (07:53)
[2017-08-18] MEDS: CLOPIDOGREL BISULFATE 75 MG TAB PO SCH (07:53)
[2017-08-18] MEDS: FLUTICASONE/SALMETEROL (ADVAIR) 500/50 INH 14 PUFF INH SCH (07:53)
[2017-08-18] MEDS: SERTRALINE HCL 50 MG TAB PO SCH (07:53)
[2017-08-18] MEDS: METHYLPREDNISOLONE IV 40 MG in SYRINGE 0 ML IV SCH (07:53)
[2017-08-18] MEDS: LISINOPRIL 5 MG TAB PO SCH (07:54)
[2017-08-18] MEDS: FUROSEMIDE 40 MG TAB PO SCH (07:54)
[2017-08-18] MEDS: NICOTINE 7 MG/24 HR TDSY TD SCH (07:55)
[2017-08-18] MEDS ORDERED: GUAISYP4 PO (09:47)
[2017-08-18] MEDS ORDERED: PRED20TA2 PO (09:47)
--- NOTE | 2017-08-18 09:51 | Discharge Instructions ---
Discharge Instructions Date of Service Aug 18, 2017. Admission Reason for Admission: Copd Exacerbation Discharge Discharge Diagnosis / Problem: COPD Exacerbation Discharge Goals Goal(s): Decrease discomfort Activity Recommendations Activity Limitations: as noted below Lifting Limitations: gradually increase as tolerated Exercise/Sports Limitations: rest today May Resume Sexual Activity: when tolerated Shower/Bathe: no limitations Driving or Machine Use: resume 1 day after discharge . Instructions / Follow-Up Instructions / Follow-Up With PCP in 1-2 week Current Hospital Diet Patient's current hospital diet: AHA Diet (Heart Healthy) Discharge Diet Recommended Diet: AHA Diet (Heart Healthy) Pending Studies Studies pending at discharge: no Laboratory Results Hemoglobin A1c Test 07/18/17 09:31 Range/Units Estimated Average Glucose 120 mg/dl Hemoglobin A1c 5.8 H 4.5-5.6 % Medical Emergencies . Who to Call and When: Medical Emergencies: If at any time you feel your situation is an emergency, please call 911 immediately. . Non-Emergent Contact Non-Emergency issues call your: Primary Care Provider Call Non-Emergent contact if: temperature is above 101, you have any medication questions . . "Provider Documentation" section prepared by Ralph Green . VTE Core Measure Inpt VTE Proph given/why not?: SCD's
--- NOTE | 2017-08-18 09:56 | Discharge Summary ---
Discharge Summary Date of Service Aug 18, 2017. Discharge Summary Admission Date: Aug 12, 2017 at 20:13 Discharge Date: Aug 18, 2017 Discharge Disposition: Home Principal Diagnosis: COPD exacerbation Immunizations: Have You Had Influenza Vaccine: Yes Influenza Vaccine Date: Oct 12, 2012 History of Tetanus Vaccine?: Unknown History of Pneumococcal: Unknown History of Hepatitis B Vaccine: No Procedures: None Consultations: None Medication Reconciliation New Medications: Prednisone (Prednisone Tab) 20 Mg Tab 0 PO DAILY for Documentation for 2 Days, #4 TAB 2 TABS DAILY FOR 2 DAYS, THEN 1 TAB DAILY FOR 2 DAYS, THEN 1/2 TAB DAILY FOR 2 DAYS. Guaifenesin/Codeine (Robitussin-Ac Syrup) Syrp 10 ML PO Q12 PRN for Cough for 5 Days, #120 ML Continued Medications: Aspirin (Aspirin Chewable) 81 Mg Chew 81 MG PO QPM, TAB Atorvastatin Calcium (Lipitor) 80 Mg Tab 80 MG PO HS, TAB Carvedilol (Coreg) 25 Mg Tab 12.5 MG PO BID, TAB Clopidogrel Bisulfate (Plavix) 75 Mg Tab 75 MG PO QAM, TAB Ezetimibe (Zetia) 10 Mg Tab 10 MG PO HS, TAB Fluticasone Prop/Salmeterol (Advair Diskus 500/50 60 Dose) 1 Ea Aerp 1 PUFFS INH BID, #180 Furosemide (Lasix) 40 Mg Tab 40 MG PO DAILY for 30 Days, #30 TAB Ipratropium-Albuterol (Combivent Respimat) 1 Aer Aer 1 PUFFS INH QID, INH Lisinopril (Lisinopril) 5 Mg Tab 5 MG PO QAM Potassium Chloride (Micro-K Ext Rel) 10 Meq Capcr 10 MEQ PO DAILY, CAP Pramipexole Dihydrochloride (Pramipexole Dihydrochlori) 0.25 Mg Tab 1 TAB PO HS, #60 Sertraline (Zoloft) 50 Mg Tab 50 MG PO QAM, TAB Discontinued Medications: Furosemide (Furosemide) 20 Mg Tab 20 MG PO DAILY PRN for FLUID Referrals At Discharge Follow up Referrals: Family Practice Referral - Within 1-2 Weeks with RV. Edwards MD Discharge Exam Review of Systems: Constitutional: No fever, No chills, No weight loss, No weakness, No fatigue Respiratory: No cough, No sputum, No wheezing, No shortness of breath, No dyspnea on exertion, No dyspnea at rest Cardiovascular: No chest pain, No edema, No claudication Abdomen: No pain, No nausea, No vomiting, No diarrhea, No constipation Musculoskeletal: No joint pain Neurologic: No memory loss, No paralysis, No weakness Psychiatric: No depression symptoms Integumentary: No rash Physical Exam: General Appearance: no apparent distress Eyes: normal inspection, EOMI ENT: hearing grossly normal, pharynx normal Neck: supple Respiratory/Chest: chest non-tender, lungs clear, normal breath sounds, no respiratory distress, no accessory muscle use Cardiovascular: regular rate, rhythm, no edema, no gallop, no murmur Abdomen / GI: normal bowel sounds, non tender, soft Extremities: no calf tenderness, normal capillary refill, no pedal edema Neurologic/Psychiatric: no motor/sensory deficits, alert, normal reflexes, oriented x 3 Skin: normal color, warm/dry, no rash Lymphatic: no adenopathy Hospital Course The patient is a 72-year-old white female with a complex past medical history significant for CAD/inferior [place] 1999, hypertension, dyslipidemia, type 2 diabetes mellitus, COPD, prior tobacco abuse, systolic/diastolic CHF and ischemic cardiomyopathy (EF 25-30%), S/P [employer] ICD/BiV pacemaker implantation 02/21/12 with elective generator replacement 02/21/2017, severe mitral regurgitation, peripheral arterial disease (S/P right iliofemoral endarterectomy and popliteal/SFA angioplasties 05/04/13, mesenteric arterial occlusive disease S/P superior mesenteric stent placement 05/03/2017, carotid disease status post left CEA 1990), hyponatremia, and recent right MCA territory ischemic stroke with hemorrhagic conversion versus traumatic right subarachnoid hemorrhage in May 2017 with residual LUE weakness. She presents with progressive SOB x 2 days and was exhibiting mild respiratory distress on arrival to the ER. The pt uses 3L 02 HS which she has been using during the day also recently. She responded well to Duonebs, 02 and IV steroids in the ER. She denies CP, productive cough, N/V, fevers. Initial imaging and exam are consistent with exacerbation of COPD. The pt continues to smoke a few cigarettes daily. SOB - COPD exacerbation - improving but still cough with wheezing and some SOB. -Continue to treat with Duonebs ATC -Will send home on taper dose of prednisone for couple of days. Advise patient to quit smoking since that is the biggest contributor to her COPD. -continue supplemental 02 -azithromycin course completed. -encouraged smoking cessation -continue guaifenesin w/ codeine 10ml q6h for cough Acute on Chronic systolic CHF/CAD/PAD/severe MR/hypertension/dyslipidemia/ ischemic cardiomyopathy/PPM/VICK/Demand ischemia - impedance readings on pacer interrogation indicate signs of pulmonary edema recently in the last 2 months that has slightly improved over the last week. She does indeed take Lasix 40 mg once daily in the mornings and reports her leg swelling has actually improved in the last week, she is only had 1 pound weight gain. However, her BNP is 27,000, she has significant cardiomegaly on chest x-ray but no significant pulmonary vascular congestion noted. Received 1 dose IV lasix with not much diuresis initially Acute CHF has resolved and wasn't very significant to begin with --Cont Lisinopril, Coreg --continue lasix 40 mg by mouth daily in the morning -- Consideration should be made for repair of her mitral valve at some point -- Cardiology consultation appreciated -- trop is chronically elevated - appears lower than baseline - no current symptoms consistent with ACS - cont ASA, Bblockers, Statin. Headache-concern given recent h/o hemorrhagic conversion with CVA -check CT Head now -tylenol prn pain Hx CVA -thought to be ischemic with hemorrhagic conversion vs traumatic SAH after fall induced by ischemic stroke. [facility] records hint at possible LV thomboembolism due to global hypokinesis and she is following up with Stroke Neuro next month to discuss starting anticoagulation - receiving statin, ASA, Plavix Anemia - Hb at/above baseline Total Time Spent: Greater than 30 minutes This includes examination of the patient, discharge planning, medication reconciliation, and communication with other providers. Discharge Instructions Please refer to the electronic Patient Visit Report (Discharge Instructions) for additional information. Follow-Up Last Resulted CBC 08/17/17 07:55 Red Blood Count 3.50, Mean Corpuscular Volume 91.1, Mean Corpuscular Hemoglobin 29.7, Mean Corpuscular Hemoglobin Concent 32.6, Mean Platelet Volume 8.9, Neutrophils (%) (Auto) 84.4, Lymphocytes (%) (Auto) 8.7, Monocytes (%) (Auto) 6.7, Eosinophils (%) (Auto) 0.0, Basophils (%) (Auto) 0.0, Neutrophils # (Auto) 4.57, Lymphocytes # (Auto) 0.47, Monocytes # (Auto) 0.36, Eosinophils # (Auto) 0.00, Basophils # (Auto) 0.00 Last Resulted BMP 08/17/17 07:55 Additional Copies To RV. Grace, MD
== END 2017-08-18 10:36 | disposition home or self-care (01) | DRG 190 ==
LOC: C.EDB 16:17 → C.2E 20:13 → ENRESERV 20:34 → C.MED 08-14 00:06
PROVIDERS: ADMIT Internal Medicine; ATTEND Family Medicine
DX: J44.1 Chronic obstructive pulmonary disease with (acute) exacerbation (principal); I50.23 Acute on chronic systolic (congestive) heart failure; I69.354 Hemiplegia and hemiparesis following cerebral infarction affecting left non-dominant side; I11.0 Hypertensive heart disease with heart failure; I25.10 Atherosclerotic heart disease of native coronary artery without angina pectoris; D64.9 Anemia, unspecified; R51 Headache; E11.9 Type 2 diabetes mellitus without complications; E78.5 Hyperlipidemia, unspecified; I34.0 Nonrheumatic mitral (valve) insufficiency; I73.9 Peripheral vascular disease, unspecified; I25.5 Ischemic cardiomyopathy; F17.210 Nicotine dependence, cigarettes, uncomplicated; I25.2 Old myocardial infarction; Z95.810 Presence of automatic (implantable) cardiac defibrillator; Z79.02 Long term (current) use of antithrombotics/antiplatelets; Z79.82 Long term (current) use of aspirin; Z79.899 Other long term (current) drug therapy; Z88.2 Allergy status to sulfonamides; Z83.6 Family history of other diseases of the respiratory system; Z82.49 Family history of ischemic heart disease and other diseases of the circulatory system; Z83.3 Family history of diabetes mellitus; Z84.1 Family history of disorders of kidney and ureter; Z98.62 Peripheral vascular angioplasty status

== ENCOUNTER → 2017-09-20 | Outpatient (CLI) | payer BC ==
[~2017-09-20] MED LIST changes: -ACET-1256 PO; -FRS/40 PO; +GUAISYP4 PO; -MAGN400T6 PO; -NUTR-7 PO; -OMEG10007 PO; -SPIR25TA PO
[2017-09-20 16:32] LABS: BASO % 0.4 %; BASO ABS # 0.03 K/uL (0-0.2); COMPLETE YES; HEMATOCRIT 37.8 % (37-47); IG% 0.4 %; LYMPH % 27.3 %; LYMPH ABS # 1.99 K/uL (1.2-3.4); MEAN CELL VOLUME 91.5 fL (80-100); MEAN CORPUSCULAR HEMOGLOBIN 29.8 pg (25-34); MEAN CORPUSCULAR HGB CONC 32.5 g/dl (32-36); MEAN PLATELET VOLUME 9.2 fL (7.4-10.4); MONO % 13.7 %; NEUT % 57.2 %; PLATELET COUNT 248 K/uL (130-400); RED BLOOD COUNT 4.13 M/uL (4.2-5.4); WHITE BLOOD COUNT 7.29 K/uL (4.8-10.8)
[2017-09-20 16:51] LABS: ALT/SGPT 31 U/L (12-78); BLOOD UREA NITROGEN 34 mg/dl (7-18); BUN/CREATININE RATIO 32.2 (10-20); CALCIUM 9.3 mg/dl (8.5-10.1); CARBON DIOXIDE 31 mmol/L (21-32); CHLORIDE 101 mmol/L (98-107); CREATININE 1.04 mg/dl (0.60-1.20); GLUCOSE 97 mg/dl (70-99); POTASSIUM 3.6 mmol/L (3.5-5.1); SODIUM 138 mmol/L (136-145)
[2017-09-20 16:54] LABS: ALKALINE PHOSPHATASE 87 U/L (45-117); AST/SGOT 24 U/L (15-37)
== END | disposition home or self-care (01) ==
LOC: C.LAB1850 15:43
PROVIDERS: ATTEND Internal Medicine
DX: D64.9 Anemia, unspecified (principal); E11.9 Type 2 diabetes mellitus without complications

== ENCOUNTER 2017-10-22 06:56 | Inpatient (IN) | payer BC, OTHER ==
[2017-10-22] VITALS (10 sets, daily range): BP systolic 116–136; BP diastolic 59–64; PULSE 74–109; TEMP 36.3–36.8; O2SAT 92–100; BMI 18.9
[~2017-10-22] VITALS: Ht 157.5 cm; Wt 47.3 kg
[2017-10-22] MEDS ORDERED: METHYLPREDNISOLONE 125 MG VIAL IV STA (06:58)
[2017-10-22] MEDS ORDERED: FUROSEMIDE 40 MG/4 ML VIAL IV STA (06:58)
[2017-10-22] MEDS ORDERED: ALBUT/IPRATROP 3MG/0.5MG NEB 3 ML VIAL INH ONE (07:00)
[2017-10-22] MEDS ORDERED: MAGNESIUM SULFATE 1GM / D5W 1 GM BAG IV STA (07:03)
--- NOTE | 2017-10-22 07:05 | EMERGENCY ROOM VISIT NOTE ---
History Report prepared by Phillip: Juaquin Rivero Under the Supervision of: Dr. Chester Grey M.D. First contact with patient: 06:57 Chief Complaint: RESPIRATORY DISTRESS Stated Complaint: BREATHING DIFFICULTY History of Present Illness The patient is a 72 year old female who presents to the Emergency Room with complaints of worsening shortness of breath that began last night. She has a past medical history of CHF and COPD. She wears 3L of oxygen at night. She states that she has been having intermittent respiratory difficulty for the past couple of weeks. However, her symptoms worsened again significantly last night. At that time, she was unable to sleep secondary to her symptoms. She is also experiencing a cough with some ankle edema bilaterally which is new. En route via EMS, she was placed onto a C-PAP which helped her breathing. She denies any chest pain or any other abnormal symptoms. Source of History: patient Onset: last night Position: other (Respiratory System) Symptom Intensity: moderate Quality: other (Shortness of breath) Timing: worsening Modifying Factors (Relieving): other (C-PAP) Associated Symptoms: + cough, No chest pain Note: She is experiencing bilateral ankle edema. Review of Systems See HPI for pertinent positives & negatives. A total of 10 systems reviewed and were otherwise negative. Past Medical & Surgical Medical Problems: (1) Acute and chronic respiratory failure with hypercapnia (2) Acute on chronic systolic (congestive) heart failure (3) AICD malfunction (4) ANEMIA NOS (5) ASTHMA, UNSPECIFIED (6) Cardiac defibrillator in place (7) CHF (congestive heart failure) (8) CHRONIC KIDNEY DISEASE, UNSPECIFIED (9) COPD (chronic obstructive pulmonary disease) (10) COPD exacerbation (11) COPD exacerbation (12) CORONARY ATHEROSCLEROSIS OF [place] CORONARY VESSEL (13) DIAB CASPER WO COMPL, TYPE II OR UNSPEC TYPE, NOT UNCNTRLD (14) Emphysema of lung (15) Hypoxia (16) Influenza A (17) Non compliance w medication regimen (18) Pulmonary congestion (19) PURE HYPERCHOLESTEROLEM (20) Respiratory distress (21) Syncope Family History Omitted secondary to the patient's age. Social History Smoking Status: Current Every Day Smoker Alcohol Use: occasionally Drug Use: none Marital Status: Housing Status: lives with family Occupation Status: retired Current/Historical Medications Scheduled Aspirin (Aspirin Chewable), 81 MG PO QPM Atorvastatin (Lipitor), 80 MG PO HS Carvedilol (Coreg), 12.5 MG PO BID Clopidogrel Bisulfate (Plavix), 75 MG PO QAM Ezetimibe (Zetia), 10 MG PO HS Fluticasone Prop/Salmeterol (Advair Diskus 500/50 60 Dose), 1 PUFFS INH BID Furosemide (Lasix), 40 MG PO DAILY Ipratropium-Albuterol (Combivent Respimat), 1 PUFFS INH QID Lisinopril (Lisinopril), 5 MG PO QAM Pramipexole Dihydrochloride (Pramipexole Dihydrochlori), 0.25 MG PO HS Sertraline (Zoloft), 50 MG PO QAM Vitamins C & E (Vitamin C), 1 CAP PO DAILY Scheduled PRN Hydroxyzine HCl (Hydroxyzine HCl), 25 MG PO BID PRN for Anxiety Allergies Coded Allergies: Sulfa Antibiotics (Verified Allergy, Intermediate, RASH, 10/22/17) Morphine (Verified Adverse Reaction, Mild, GI SYMPTOMS, 10/22/17) Physical Exam Vital Signs Date Time Temp Pulse Resp B/P (MAP) Pulse Ox O2 Delivery O2 Flow Rate FiO2 10/22/17 08:31 76 24 112/52 100 BiPAP 10/22/17 07:07 36.8 102 36 161/78 100 BiPAP 10/22/17 07:06 109 10/22/17 07:04 109 100 40 10/22/17 07:04 109 31 100 BiPAP/CPAP 40 Physical Exam GENERAL: Patient is a healthy-appearing well-nourished female, appears to be extremely uncomfortable in acute distress. HEAD: Normocephalic atraumatic EYES: Ocular movements intact pupils equal and react to light OROPHARYNX mucous membranes are moist no exudates present no erythema or edema present NECK: Supple no nuchal rigidity CHEST: Good equal expansion LUNGS: Rales throughout all english. CARDIAC: Normal S1 and S2 ABDOMEN: Soft nontender no guarding BACK: No CVA tenderness EXTREMITIES: No pain upon palpation normal muscle strength in all groups no clubbing or cyanosis, 1 + pitting edema to the bilateral lower extremities. NEURO: Patient is following commands and answering questions appropriately. Alert and oriented x3 Cranial Nerves 2-12 grossly intact Medical Decision & Procedures ER Provider Diagnostic Interpretation: Radiology results as stated below per my review and radiologist interpretation: CHEST ONE VIEW PORTABLE HISTORY: 72 years-old Female Sepsis acute sepsis with dyspnea COMPARISON: Chest radiograph 08/12/2017 TECHNIQUE: Portable AP view of the chest FINDINGS: Cardiac silhouette is again at least moderately enlarged. Left pectoral pacer/AICD is noted with leads appearing unchanged and intact. Atherosclerosis of the aorta. No pneumothorax, pleural effusion, focal airspace consolidation or overt pulmonary edema. Increased lucency with hyperinflation again noted suggesting emphysema. Areas of interstitial coarsening involve the lung bases suggesting areas of scarring, unchanged. The bones appear grossly intact. IMPRESSION: 1. Cardiomegaly without overt pulmonary edema. 2. Emphysema with chronic interstitial coarsening of the lung bases suggesting scarring. 3. No focal airspace consolidation to suggest pneumonia. The above report was generated using voice recognition software. It may contain grammatical, syntax or spelling errors. Electronically signed by: Angelito Portillo M.D. 10/22/2017 7:42 AM Dictated Date/Time: 10/22/2017 7:41 AM Laboratory Results Test 10/22/17 07:15 10/22/17 07:17 10/22/17 07:23 10/22/17 07:29 Immature Granulocyte % (Auto) 0.4 % White Blood Count 10.40 K/uL (4.8-10.8) Red Blood Count 4.23 M/uL (4.2-5.4) Hemoglobin 12.5 g/dL (12.0-16.0) Hematocrit 38.6 % (37-47) Mean Corpuscular Volume 91.3 fL (80-100) Mean Corpuscular Hemoglobin 29.6 pg (25-34) Mean Corpuscular Hemoglobin Concent 32.4 g/dl (32-36) Platelet Count 280 K/uL (130-400) Mean Platelet Volume 8.8 fL (7.4-10.4) Neutrophils (%) (Auto) 89.4 % Lymphocytes (%) (Auto) 5.0 % Monocytes (%) (Auto) 4.5 % Eosinophils (%) (Auto) 0.6 % Basophils (%) (Auto) 0.1 % Neutrophils # (Auto) 9.30 K/uL (1.4-6.5) Lymphocytes # (Auto) 0.52 K/uL (1.2-3.4) Monocytes # (Auto) 0.47 K/uL (0.11-0.59) Eosinophils # (Auto) 0.06 K/uL (0-0.5) Basophils # (Auto) 0.01 K/uL (0-0.2) Immature Granulocyte # (Auto) 0.04 K/uL (0.00-0.02) Nucleated RBC Absolute Count (auto) 0.02 K/uL (0-0) Nucleated Red Blood Cells % 0.2 % Prothrombin Time 10.5 SECONDS (9.0-12.0) Prothromb Time International Ratio 1.0 (0.9-1.1) Activated Partial Thromboplast Time 22.9 SECONDS (21.0-31.0) Partial Thromboplastin Ratio 0.9 Estimated Average Glucose 131 mg/dl Hemoglobin A1c 6.2 % (4.5-5.6) Total Bilirubin 0.6 mg/dl (0.2-1) Aspartate Amino Transf (AST/SGOT) 46 U/L (15-37) Alanine Aminotransferase (ALT/SGPT) 76 U/L (12-78) Alkaline Phosphatase 92 U/L (45-117) Pro-B-Type Natriuretic Peptide 04510 pg/ml (0-900) Total Protein 7.0 gm/dl (6.4-8.2) Albumin 3.5 gm/dl (3.4-5.0) Globulin 3.5 gm/dl (2.5-4.0) Albumin/Globulin Ratio 1.0 (0.9-2) Bedside Lactic Acid Venous 0.84 mmol/L (0.90-1.70) Influenza Type A Antigen POS for Influ A (NEG) Influenza Type B Antigen Neg for Influ B (NEG) Arterial Blood pH 7.36 (7.35-7.45) Arterial Blood Partial Pressure CO2 51 mmHg (35-46) Arterial Blood Partial Pressure O2 176 mm/Hg (80-95) Arterial Blood HCO3 28 mmol/L (19-24) Arterial Blood Oxygen Saturation 99.3 % (90-95) Arterial Blood Base Excess 2.0 mEq/L (-9-1.8) Arterial Blood Gas Delivery 40 % FIO2 [place] Test POS (POS) Test 10/22/17 07:43 Urine Color YELLOW Urine Appearance CLEAR (CLEAR) Urine pH 6.5 (4.5-7.5) Urine Specific [place] 1.011 (1.000-1.030) Urine Protein NEG (NEG) Urine Glucose (UA) NEG (NEG) Urine Ketones NEG (NEG) Urine Occult Blood NEG (NEG) Urine Nitrite NEG (NEG) Urine Bilirubin NEG (NEG) Urine Urobilinogen NEG (NEG) Urine Leukocyte Esterase NEG (NEG) Urine WBC (Auto) 0 /hpf (0-5) Urine RBC (Auto) 0-4 /hpf (0-4) Urine Hyaline Casts (Auto) 1-5 /lpf (0-5) Urine Epithelial Cells (Auto) 0-5 /lpf (0-5) Urine Bacteria (Auto) NEG (NEG) Labs reviewed by ED physician. Medications Administered Medications (Trade) Dose Ordered Sig/Osmani Route Start Time Stop Time Status Last Admin Dose Admin Furosemide (Lasix Inj) 40 mg NOW STAT IV 10/22/17 06:58 10/22/17 07:01 DC 10/22/17 07:10 40 MG Methylprednisolone Sodium Succinate (Solu-Medrol IV) 125 mg NOW STAT IV 10/22/17 06:58 10/22/17 07:01 DC 10/22/17 07:07 125 MG Albuterol/ Ipratropium (Duoneb) 12 ml ONE ONCE INH 10/22/17 07:00 10/22/17 07:01 DC 10/22/17 07:19 12 ML Magnesium Sulfate (Magnesium Sulfate) 1 gm NOW STAT IV 10/22/17 07:03 10/22/17 07:04 DC 10/22/17 07:14 1 GM Oseltamivir Phosphate (Tamiflu Cap) 75 mg NOW STAT PO 10/22/17 08:14 10/22/17 08:15 DC 10/22/17 08:38 75 MG Acetaminophen (Tylenol Tab) 1,000 mg NOW STAT PO 10/22/17 08:14 10/22/17 08:15 DC 10/22/17 08:39 1,000 MG Hydroxyzine HCl (Vistaril Tab) 25 mg BID PRN PO 10/22/17 09:15 11/21/17 09:14 10/23/17 02:33 25 MG ECG Indication: SOB/dyspnea Rate (beats per minute): 94 Rhythm: other (Paced rhythm) Findings: no acute ischemic change, no ectopy ED Course 06: Past medical records reviewed. The patient was evaluated in room B12. A complete history and physical examination was performed. 0658: Ordered Solu-Medrol IV 125 mg IV, Lasix Inj 40 mg IV 0700: Ordered DuoNeb 12 ml INH 0703: Ordered Magnesium Sulfate 1 gm IV 0753: Upon reevaluation, the patient is doing much better. 0800: Upon reexamination the patient is resting. I discussed results and treatment plan with the patient. She verbalizes agreement and understanding. I spoke with Dr. Rm from the [facility]. He would like the patient to be taken to the ICU. The patient will be evaluated by him for further management. 0814: Ordered Tylenol Tab 1000 mg PO, Tamiflu Cap 75 mg PO 0834: I spoke with Dr. Daisy HOWARD, of the ICU at this time. We discussed the patient's case. They will evaluate the patient with Dr. Rm. Medical Decision Differential diagnosis: Etiologies such as infections, reactive airway disease, pneumonia, pneumothorax , COPD, CHF, cardiac ischemia, pulmonary embolism, musculoskeletal, gastrointestinal, as well as others were entertained. This is a 72-year-old female who presents emergency department in acute distress. The patient is extremely short of breath and was placed on BiPAP. She has a history of congestive heart failure as well as COPD. For this reason she was started on Lasix given an hour-long breathing treatment and started on Solu-Medrol. In addition the patient is also positive for flu. For this reason she was given Tamiflu. I did discuss the case with both the ICU as well as the medicine service. Medication Reconcilliation Current Medication List: was personally reviewed by me Blood Pressure Screening Patient's blood pressure: Elevated blood pressure Referred to the hospitalist Consults Time Called: 075 Consulting Physician: Dr. Rm - [facility] Returned Call: 08 I discussed the patient's case with Dr. Mclain, he has agreed to evaluate the patient for further management and care. He would like the patient to be taken to the ICU. Additional Consults: Time Called: 08 Consulted Physician: Dr. Villa - [facility], [facility] Returned Call: 08 Additional Comments: We discussed the patient's case. They are aware of the patient and will follow up with Dr. Rm. Impression Primary Impression: Influenza Additional Impressions: Hypoxia Respiratory failure Critical Care I have personally spent greater than 90 minutes of critical care time in the direct management of this patient. This includes bedside care, interpretation of diagnostic studies, and testing, discussion with consultants, patient, and family members, and other required patient management activities. This 90 minutes is in excess of all separately billable procedures. Scribe Attestation The scribe's documentation has been prepared under my direction and personally reviewed by me in its entirety. I confirm that the note above accurately reflects all work, treatment, procedures, and medical decision making performed by me. Departure Information Dispostion Being Evaluated By Hospitalist Referrals No Doctor, Assigned (PCP) Patient Instructions Asthma - [facility], COPD - [facility], Croup - [facility], [facility] Problem Qualifiers Additional Impressions: Respiratory failure Chronicity: acute Respiratory failure complication: hypoxia Qualified Codes : J96.01 - Acute respiratory failure with hypoxia
[2017-10-22 07:33] LABS: BASO % 0.1 %; BASO ABS # 0.01 K/uL (0-0.2); EOS % 0.6 %; EOS ABS # 0.06 K/uL (0-0.5); HEMATOCRIT 38.6 % (37-47); HEMOGLOBIN 12.5 g/dL (12.0-16.0); IG# 0.04 K/uL (0.00-0.02); LYMPH ABS # 0.52 K/uL (1.2-3.4); MEAN CELL VOLUME 91.3 fL (80-100); MEAN CORPUSCULAR HEMOGLOBIN 29.6 pg (25-34); MEAN CORPUSCULAR HGB CONC 32.4 g/dl (32-36); MEAN PLATELET VOLUME 8.8 fL (7.4-10.4); MONO % 4.5 %; MONO ABS # 0.47 K/uL (0.11-0.59); NEUT % 89.4 %; NUCLEATED RED BLOOD CELL ABS 0.02 K/uL (0-0); PLATELET COUNT 280 K/uL (130-400); RED CELL DISTRIBUTION WIDTH CV 17.3 % (11.5-14.5); RED CELL DISTRIBUTION WIDTH SD 57.4 fL (36.4-46.3)
[2017-10-22 07:42] LABS: PTT PATIENT 22.9 SECONDS (21.0-31.0)
--- NOTE | 2017-10-22 07:44 | DIAGNOSTIC IMAGING REPORT ---
CHEST ONE VIEW PORTABLE HISTORY: 72 years-old Female Sepsis acute sepsis with dyspnea COMPARISON: Chest radiograph 08/12/2017 TECHNIQUE: Portable AP view of the chest FINDINGS: Cardiac silhouette is again at least moderately enlarged. Left pectoral pacer/AICD is noted with leads appearing unchanged and intact. Atherosclerosis of the aorta. No pneumothorax, pleural effusion, focal airspace consolidation or overt pulmonary edema. Increased lucency with hyperinflation again noted suggesting emphysema. Areas of interstitial coarsening involve the lung bases suggesting areas of scarring, unchanged. The bones appear grossly intact. IMPRESSION: 1. Cardiomegaly without overt pulmonary edema. 2. Emphysema with chronic interstitial coarsening of the lung bases suggesting scarring. 3. No focal airspace consolidation to suggest pneumonia. The above report was generated using voice recognition software. It may contain grammatical, syntax or spelling errors. Electronically signed by: Angelito Portillo M.D. 10/22/2017 7:42 AM Dictated Date/Time: 10/22/2017 7:41 AM
[2017-10-22 07:51] LABS: ALBUMIN 3.5 gm/dl (3.4-5.0); ALT/SGPT 76 U/L (12-78); BLOOD UREA NITROGEN 31 mg/dl (7-18); CALCIUM 8.9 mg/dl (8.5-10.1); CARBON DIOXIDE 32 mmol/L (21-32); CREATININE 1.15 mg/dl (0.60-1.20); GLUCOSE 193 mg/dl (70-99); POTASSIUM 4.4 mmol/L (3.5-5.1); SODIUM 137 mmol/L (136-145)
[2017-10-22 08:01] LABS: ALKALINE PHOSPHATASE 92 U/L (45-117); AST/SGOT 46 U/L (15-37); CKMB 4.2 ng/ml (0.5-3.6)
[2017-10-22] MEDS ORDERED: VITACAP26 PO (08:06)
[2017-10-22] MEDS ORDERED: FERR1TAB23 PO (08:06)
[2017-10-22] MEDS ORDERED: MRP25 PO (08:06)
[2017-10-22] MEDS ORDERED: ATR25 PO (08:06)
[2017-10-22] MEDS ORDERED: FRS/40 PO (08:06)
[2017-10-22] MEDS ORDERED: GABA-112 PO (08:06)
[2017-10-22 08:12] LABS: INFLUENZA B ANTIGEN Neg for Influ B (NEG)
[2017-10-22] MEDS ORDERED: OSELTAMIVIR PHOSPHATE 75 MG CAP PO STA (08:14)
[2017-10-22] MEDS ORDERED: ACETAMINOPHEN 500 MG TAB PO STA (08:14)
[2017-10-22] MEDS ORDERED: ALUMINUM/MAGNESIUM/SIMETH (MAALOX MAX) 30 ML UDC PO PRN (09:15)
[2017-10-22] MEDS ORDERED: ACETAMINOPHEN 325 MG TAB PO PRN (09:15)
[2017-10-22] MEDS ORDERED: POLYETHYLENE (MIRALAX) 17 GM PACK PO PRN (09:15)
[2017-10-22] MEDS ORDERED: MAGNESIUM HYDROXIDE SUSP 30 ML UDC PO PRN (09:15)
[2017-10-22] MEDS ORDERED: ONDANSETRON INJ 2 MG/ML 2 ML VIAL IV PRN (09:15)
--- NOTE | 2017-10-22 09:54 | History and Physical ---
History & Physical Date & Time of Service: Oct 22, 2017 at 09:24 Chief Complaint: Breathing Difficulty Primary Care Physician: No Doctor, Assigned History of Present Illness Source: patient, family (daughter at bedside), clinic records, hospital records This is a 72 y/o female with a history of CAD, HTN, HLD, OH, CVA, systolic CHF, COPD, DM II, CKD stage II-III, iron deficiency anemia, RLS, anxiety/depression, and GERD who presented to the ED on 10/22 with worsening shortness of breath. The patient states that she has been having some intermittent breathing issues for the last few days, but last night it became acutely worse. She states she was not able to fall asleep last night due to her worsening shortness of breath. At baseline, the patient wears 3L oxygen at nighttime, and during the day prn. In the last few days she has required more daytime use of her oxygen than normal. The patient also complains of a non-productive cough, wheezing and dyspnea on exertion. She states she feels fatigued as she has not been sleeping well for a while now but denies generalized weakness, body aches or myalgias. The patient noticed worsening lower extremity edema last night, so she took an extra Lasix at that time. She notes that yesterday she had a weight gain of 3 or 4 pounds. The patient is not sure if she had a fever, but states that she became very warm last night and sweaty. The patient denies fevers, chills, chest pain, palpitations, claudication, nausea, vomiting, abdominal pain, dysuria, hematuria, urinary retention, paralysis, weakness, numbness and tingling. Past Medical/Surgical History Medical Problems: (1) ANEMIA NOS Status: Chronic (2) ASTHMA, UNSPECIFIED Status: Chronic (3) Cardiac defibrillator in place Status: Chronic (4) CHF (congestive heart failure) Status: Chronic (5) CHRONIC KIDNEY DISEASE, UNSPECIFIED Status: Chronic (6) COPD (chronic obstructive pulmonary disease) Status: Chronic (7) CORONARY ATHEROSCLEROSIS OF [place] CORONARY VESSEL Status: Chronic (8) DIAB CASPER WO COMPL, TYPE II OR UNSPEC TYPE, NOT UNCNTRLD Status: Chronic (9) PURE HYPERCHOLESTEROLEM Status: Chronic OH (1999) CVA (2017) RLS Anxiety/depression Family History Breast cancer Diabetes mellitus FH: heart disease Hypertension Kidney disease Kidney stones Lung disease Myocardial infarction Social History Smoking Status: Current Some Day Smoker (smokes 1-2 cigarettes about every other day) Smokeless Tobacco Use: No Alcohol Use: none Drug Use: none Marital Status: Housing status: lives with significant other Occupational Status: retired Immunizations History of Influenza Vaccine: Yes Influenza Vaccine Date: Oct 12, 2012 History of Tetanus Vaccine?: Unknown History of Pneumococcal: Unknown History of Hepatitis B Vaccine: No Multi-Drug Resistant Organisms History of MDRO: No Allergies Coded Allergies: Sulfa Antibiotics (Verified Allergy, Intermediate, RASH, 10/22/17) Morphine (Verified Adverse Reaction, Mild, GI SYMPTOMS, 10/22/17) Home Medications Scheduled Aspirin (Aspirin Chewable), 81 MG PO QPM Atorvastatin (Lipitor), 80 MG PO HS Carvedilol (Coreg), 12.5 MG PO BID Clopidogrel Bisulfate (Plavix), 75 MG PO QAM Ezetimibe (Zetia), 10 MG PO HS Fluticasone Prop/Salmeterol (Advair Diskus 500/50 60 Dose), 1 PUFFS INH BID Furosemide (Lasix), 40 MG PO DAILY Ipratropium-Albuterol (Combivent Respimat), 1 PUFFS INH QID Lisinopril (Lisinopril), 5 MG PO QAM Pramipexole Dihydrochloride (Pramipexole Dihydrochlori), 0.25 MG PO HS Sertraline (Zoloft), 50 MG PO QAM Vitamins C & E (Vitamin C), 1 CAP PO DAILY Scheduled PRN Hydroxyzine HCl (Hydroxyzine HCl), 25 MG PO BID PRN for Anxiety Review of Systems Constitutional: +Fatigue, not sleeping well. Sweats. No fever, No chills Eyes: No worsening of vision, No eye pain, No diplopia ENT: No hearing loss, No nasal symptoms, No trouble swallowing Respiratory: +Cough, wheezing, SOB, [place] Cardiovascular: No chest pain, No claudication, No palpitations Abdomen: No pain, No nausea, No vomiting Musculoskeletal: No joint pain, No muscle pain, No swelling Genitourinary - Female: No dysuria, No urinary retention, No hematuria Neurologic: No paralysis, No weakness, No numbness/tingling Integumentary: No rash, No itch, No color change Physical Exam Vital Signs Date Time Temp Pulse Resp B/P (MAP) Pulse Ox O2 Delivery O2 Flow Rate FiO2 10/22/17 08:31 76 24 112/52 100 BiPAP 10/22/17 07:07 36.8 102 36 161/78 100 BiPAP 10/22/17 07:06 109 10/22/17 07:04 109 100 40 10/22/17 07:04 109 31 100 BiPAP/CPAP 40 General appearance: Well-developed, well-nourished, no apparent distress Head: Normocephalic, atraumatic Eyes: Normal inspection, PERRL, EOMI ENT: +Exam limited by BiPAP. Normal ENT inspection, hearing grossly normal Neck: Supple, no JVD, trachea midline Respiratory/Chest: +Resting comfortably on BiPAP. Decreased breath sounds, wheezing. No respiratory distress Cardiovascular: Regular rate & rhythm, no gallop, no murmur Abdomen/GI: Normal bowel sounds, non-tender, soft Extremities/Musculoskeletal: +1-2 pitting edema lower extremities bilaterally. Cut on bottom of right heel. No calf tenderness Neurological/Psych: Alert, normal mood/affect, oriented x 3 Skin: Normal color, warm/dry, no rash Diagnostics Laboratory Results Results Past 24 Hours Test 10/22/17 07:15 10/22/17 07:17 10/22/17 07:23 10/22/17 07:29 Range/Units White Blood Count 10.40 4.8-10.8 K/uL Red Blood Count 4.23 4.2-5.4 M/uL Hemoglobin 12.5 12.0-16.0 g/dL Hematocrit 38.6 37-47 % Mean Corpuscular Volume 91.3 80-100 fL Mean Corpuscular Hemoglobin 29.6 25-34 pg Mean Corpuscular Hemoglobin Concent 32.4 32-36 g/dl Platelet Count 280 130-400 K/uL Mean Platelet Volume 8.8 7.4-10.4 fL Neutrophils (%) (Auto) 89.4 % Lymphocytes (%) (Auto) 5.0 % Monocytes (%) (Auto) 4.5 % Eosinophils (%) (Auto) 0.6 % Basophils (%) (Auto) 0.1 % Neutrophils # (Auto) 9.30 1.4-6.5 K/uL Lymphocytes # (Auto) 0.52 1.2-3.4 K/uL Monocytes # (Auto) 0.47 0.11-0.59 K/uL Eosinophils # (Auto) 0.06 0-0.5 K/uL Basophils # (Auto) 0.01 0-0.2 K/uL RDW Standard Deviation 57.4 36.4-46.3 fL RDW Coefficient of Variation 17.3 11.5-14.5 % Immature Granulocyte % (Auto) 0.4 % Immature Granulocyte # (Auto) 0.04 0.00-0.02 K/uL Nucleated RBC Absolute Count (auto) 0.02 0-0 K/uL Nucleated Red Blood Cells % 0.2 % Prothrombin Time 10.5 9.0-12.0 SECONDS Prothromb Time International Ratio 1.0 0.9-1.1 Activated Partial Thromboplast Time 22.9 21.0-31.0 SECONDS Partial Thromboplastin Ratio 0.9 Sodium Level 137 136-145 mmol/L Potassium Level 4.4 3.5-5.1 mmol/L Chloride Level 99 98-107 mmol/L Carbon Dioxide Level 32 21-32 mmol/L Anion Gap 6.0 3-11 mmol/L Blood Urea Nitrogen 31 7-18 mg/dl Creatinine 1.15 0.60-1.20 mg/dl Estimated GFR () 54.7 Estimated GFR (Non- 47.2 BUN/Creatinine Ratio 27.1 10-20 Random Glucose 193 70-99 mg/dl Calcium Level 8.9 8.5-10.1 mg/dl Total Bilirubin 0.6 0.2-1 mg/dl Aspartate Amino Transf (AST/SGOT) 46 15-37 U/L Alanine Aminotransferase (ALT/SGPT) 76 12-78 U/L Alkaline Phosphatase 92 45-117 U/L Total Creatine Kinase 27 26-192 U/L Creatine Kinase MB 4.2 0.5-3.6 ng/ml Creatine Kinase MB Ratio 15.6 0-3.0 Troponin I 0.063 0-0.045 ng/ml Pro-B-Type Natriuretic Peptide 90313 0-900 pg/ml Total Protein 7.0 6.4-8.2 gm/dl Albumin 3.5 3.4-5.0 gm/dl Globulin 3.5 2.5-4.0 gm/dl Albumin/Globulin Ratio 1.0 0.9-2 Bedside Lactic Acid Venous 0.84 0.90-1.70 mmol/L Influenza Type A Antigen POS for Influ A NEG Influenza Type B Antigen Neg for Influ B NEG Arterial Blood pH 7.36 7.35-7.45 Arterial Blood Partial Pressure CO2 51 35-46 mmHg Arterial Blood Partial Pressure O2 176 80-95 mm/Hg Arterial Blood HCO3 28 19-24 mmol/L Arterial Blood Oxygen Saturation 99.3 90-95 % Arterial Blood Base Excess 2.0 -9-1.8 mEq/L Arterial Blood Gas Delivery 40 % FIO2 Simba Test POS POS Test 10/22/17 07:43 Range/Units Urine Color YELLOW Urine Appearance CLEAR CLEAR Urine pH 6.5 4.5-7.5 Urine Specific [place] 1.011 1.000-1.030 Urine Protein NEG NEG Urine Glucose (UA) NEG NEG Urine Ketones NEG NEG Urine Occult Blood NEG NEG Urine Nitrite NEG NEG Urine Bilirubin NEG NEG Urine Urobilinogen NEG NEG Urine Leukocyte Esterase NEG NEG Urine WBC (Auto) 0 0-5 /hpf Urine RBC (Auto) 0-4 0-4 /hpf Urine Hyaline Casts (Auto) 1-5 0-5 /lpf Urine Epithelial Cells (Auto) 0-5 0-5 /lpf Urine Bacteria (Auto) NEG NEG Microbiology Results 10/22/17 Blood Culture, Received Pending 10/22/17 Blood Culture, Received Pending Diagnostic Radiology Reviewed the following studies and agree with interpretation as follows: CHEST ONE VIEW PORTABLE HISTORY: 72 years-old Female Sepsis acute sepsis with dyspnea COMPARISON: Chest radiograph 08/12/2017 TECHNIQUE: Portable AP view of the chest FINDINGS: Cardiac silhouette is again at least moderately enlarged. Left pectoral pacer/AICD is noted with leads appearing unchanged and intact. Atherosclerosis of the aorta. No pneumothorax, pleural effusion, focal airspace consolidation or overt pulmonary edema. Increased lucency with hyperinflation again noted suggesting emphysema. Areas of interstitial coarsening involve the lung bases suggesting areas of scarring, unchanged. The bones appear grossly intact. IMPRESSION: 1. Cardiomegaly without overt pulmonary edema. 2. Emphysema with chronic interstitial coarsening of the lung bases suggesting scarring. 3. No focal airspace consolidation to suggest pneumonia. EKG Reviewed EKG and agree with interpretation as follows: 94 bpm, atrial sensed ventricular paced rhythm, QTc 570 Impression Assessment and Plan 72 y/o female with a history of CAD, HTN, HLD, [place], CVA, systolic CHF, COPD, DM II, CKD stage II-III, iron deficiency anemia, RLS, anxiety/depression, and GERD who presented to the ED on 10/22 with worsening shortness of breath. Pt arrived to ED afebrile, tachycardic and tachypneic. She had been placed on CPAP en route to ED, switched to BiPAP. CXR without overt pulmonary edema. EKG paced rhythm. ABG shows pH 7.36, pCO2 51. BNP 20250. Troponin elevated at 0.063. Positive for influenza A. Pt received Solu-Medrol 125 mg IV, Lasix 40 mg IV, hour long DuoNeb, magnesium 1 gm IV, and Tamiflu in ED. Acute on chronic respiratory failure secondary to COPD exacerbation vs systolic CHF exacerbation vs flu -Admit to telemetry. Pt evaluated by ICU while in ED, ok for tele -Continue BiPAP -Solu-Medrol 80 mg IV q8h -DuoNebs QIDR and q2h prn SOB/wheezing. Hold home Combivent -Continue Advair 500/50 1 puff inh BID -Consult pulmonology, appreciate recs Acute on chronic systolic CHF, s/p biventricular ICD -No overt edema on CXR but with worsening pitting edema and 3-4 lb weight gain, BNP over 20k -Lasix 40 mg IV BID -Continue lisinopril, carvedilol -Daily weights, I's & O's -Tyson in placed in ED Influenza A -Tamiflu 75 mg PO BID x 5 days, first dose in ED -Droplet precautions Elevated troponin--chronic, trop was the same in August -Trend cardiac enzymes q8h x 3 -EKG q am and prn chest pain CAD, HTN, HLD, [place], CVA--stable -Continue ASA, Plavix, lisinopril 5 mg PO qd, Coreg 12.5 mg PO BID, Lipitor 80 mg PO hs, Zetia 10 mg PO hs DM II--last HgbA1c 5.8 on 07/18/17, diet controlled -Insulin sliding scale -Check BSGs q ac and qhs -Recheck HgbA1c CKD stage II-III--stable, at baseline ANJALI--stable, currently off iron RLS -Continue Mirapex 0.25 mg PO hs Anxiety/depression -Continue Zoloft 50 mg PO qd and Vistaril 25 mg PO BID prn anxiety Wound right heel--stepped on glass last night -Consult wound care nurse DVT prophylaxis -Enoxaparin 40 mg SC q24h -BABAR [place] and [place] Code Status -Level I, FULL RESUSCITATION STATUS Level of Care Telemetry Resuscitation Status FULL RESUSCITATION VTE Prophylaxis VTE Risk Assessment Done? Y/N: Yes Risk Level: Moderate Given or contraindicated: Enoxaparin (Lovenox)SQ, T.E.D. Stockings, SCD's
[2017-10-22] MEDS ORDERED: GLUCAGON FOR INJ 1 MG VIAL SQ PRN (10:00)
[2017-10-22] MEDS ORDERED: GLUCOSE 10 TABS/TUBE PO PRN (10:00)
[2017-10-22] MEDS ORDERED: DEXTROSE 50% 50 ML SYR IV PRN (10:00)
[2017-10-22] MEDS ORDERED: GLUCOSE 40% GEL 15 GM TUBE PO PRN (10:00)
--- NOTE | 2017-10-22 11:38 | Critical Care Consultation ---
Critical Care Consultation Date of Consultation: Oct 22, 2017. Attending Physician: Reason for Consultation: Flu/COPD/CHF/Hypoxemia History of Present Illness I was asked to evaluate status of patient and need for ICU care. Developed worsening respiratory distress. Presented to the ER. Underlying medical issues are substantial and include CHF/AICD/COPD/DM/CVD. Was treated with BiPAP and IV lasix as well as steroids. Evaluation noteworthy for positive flu swab and slight bump in Troponin. With the above intervention her respiratory distress improved greatly. She is speaking in complete sentences and appears comfortable. No target pain. No GI/ concerns. Her hemodynamics are stable. Family History Breast cancer Diabetes mellitus FH: heart disease Hypertension Kidney disease Kidney stones Lung disease Myocardial infarction Social History Smoking Status: Current Some Day Smoker (smokes 1-2 cigarettes about every other day) Smokeless Tobacco Use: No Alcohol Use: none Drug Use: none Marital Status: Housing Status: lives with family Occupation Status: retired Allergies Coded Allergies: Sulfa Antibiotics (Verified Allergy, Intermediate, RASH, 10/22/17) Morphine (Verified Adverse Reaction, Mild, GI SYMPTOMS, 10/22/17) Home Medications Scheduled Aspirin (Aspirin Chewable), 81 MG PO QPM Atorvastatin (Lipitor), 80 MG PO HS Carvedilol (Coreg), 12.5 MG PO BID Clopidogrel Bisulfate (Plavix), 75 MG PO QAM Ezetimibe (Zetia), 10 MG PO HS Fluticasone Prop/Salmeterol (Advair Diskus 500/50 60 Dose), 1 PUFFS INH BID Furosemide (Lasix), 40 MG PO DAILY Ipratropium-Albuterol (Combivent Respimat), 1 PUFFS INH QID Lisinopril (Lisinopril), 5 MG PO QAM Pramipexole Dihydrochloride (Pramipexole Dihydrochlori), 0.25 MG PO HS Sertraline (Zoloft), 50 MG PO QAM Vitamins C & E (Vitamin C), 1 CAP PO DAILY Scheduled PRN Hydroxyzine HCl (Hydroxyzine HCl), 25 MG PO BID PRN for Anxiety Current Inpatient Medications Current Inpatient Medications Medications (Trade) Dose Ordered Sig/[place] Route Start Time Stop Time Status Last Admin Dose Admin Enoxaparin Sodium (Lovenox Inj) 40 mg Q24H SC 10/22/17 09:15 11/21/17 09:14 UNV Acetaminophen (Tylenol Tab) 650 mg Q4H PRN PO 10/22/17 09:15 11/21/17 09:14 Al Hydrox/Mg Hydrox/Simethicone (Maalox Max Susp) 15 ml Q4H PRN PO 10/22/17 09:15 11/21/17 09:14 Magnesium Hydroxide (Milk Of Magnesia Susp) 30 ml Q12H PRN PO 10/22/17 09:15 11/21/17 09:14 Ondansetron HCl (Zofran Inj) 4 mg Q6H PRN IV 10/22/17 09:15 11/21/17 09:14 Polyethylene (Miralax Powder Packet) 17 gm DAILY PRN PO 10/22/17 09:15 11/21/17 09:14 Methylprednisolone Sodium Succinate 80 mg/Syringe 1.28 ml @ 1.5 mls/min Q8H IV 10/22/17 09:15 11/21/17 09:14 UNV Oseltamivir Phosphate (Tamiflu Cap) 75 mg BID PO 10/22/17 21:00 10/26/17 21:00 UNV Albuterol/ Ipratropium (Duoneb) 3 ml QIDR INH 10/22/17 12:00 11/21/17 11:59 UNV Aspirin (Aspirin Chew) 81 mg QPM PO 10/22/17 21:00 11/21/17 20:59 UNV Atorvastatin Calcium (Lipitor Tab) 80 mg HS PO 10/22/17 21:00 11/21/17 20:59 UNV Carvedilol (Coreg Tab) 12.5 mg BID PO 10/22/17 21:00 11/21/17 20:59 UNV Clopidogrel Bisulfate (plAVix TAB) 75 mg QAM PO 10/23/17 09:00 11/22/17 08:59 UNV EZETIMIBE (Zetia Tab) 10 mg HS PO 10/22/17 21:00 11/21/17 20:59 UNV Salmeterol Xinafoate/ Fluticasone (Advair Diskus 500/50 Inh) 1 puff BID INH 10/22/17 21:00 11/21/17 20:59 UNV Furosemide (Lasix Tab) 40 mg DAILY PO 10/23/17 09:00 11/22/17 08:59 UNV Hydroxyzine HCl (Vistaril Tab) 25 mg BID PRN PO 10/22/17 09:15 11/21/17 09:14 UNV Lisinopril (Zestril Tab) 5 mg QAM PO 10/23/17 09:00 11/22/17 08:59 UNV Pramipexole Dihydrochloride (miraPEX TAB) 0.25 mg HS PO 10/22/17 21:00 11/21/17 20:59 UNV Sertraline HCl (Zoloft Tab) 50 mg QAM PO 10/23/17 09:00 11/22/17 08:59 UNV Furosemide 40 mg/ Syringe 4 ml @ 4 mls/min BID17 IV 10/22/17 17:00 11/21/17 16:59 UNV Insulin Aspart (novoLOG ASPART) SLIDING SCALE If C... ACHS SC 10/22/17 11:00 11/21/17 10:59 UNV Glucose (Glucose 40% Gel) 15-30 GRAMS 15 GRAMS... UD PRN PO 10/22/17 10:00 11/21/17 09:59 Glucose (Glucose Chew Tab) 4-8 Tablets 4 Tabl... UD PRN PO 10/22/17 10:00 11/21/17 09:59 Dextrose (Dextrose 50% 50ML Syringe) 25-50ML OF 50% DW IV FOR... UD PRN IV 10/22/17 10:00 11/21/17 09:59 Glucagon (Glucagon Inj) 1 mg UD PRN SQ 10/22/17 10:00 11/21/17 09:59 Review of Systems Gen--comfortable on BiPAP HEENT--no target Pulmonary--COPD changes with minimal wheezing Cardio--rate is acceptable. No JVD. Trace edema GI--functional and nontender --mckeon to gravity with pale urine Musculo--no target Neuro--no focal new deficits appreciated Skin--intact Psych--appears baseline Physical Exam Date Time Temp Pulse Resp B/P (MAP) Pulse Ox O2 Delivery O2 Flow Rate FiO2 10/22/17 10:27 72 20 118/46 100 BiPAP 30 10/22/17 09:50 74 100 40 10/22/17 08:31 76 24 112/52 100 BiPAP 10/22/17 07:07 36.8 102 36 161/78 100 BiPAP 10/22/17 07:06 109 10/22/17 07:04 109 100 40 10/22/17 07:04 109 31 100 BiPAP/CPAP 40 no distress at time of my evaluation HEENT--no focal changes. Cardio--rate and volume ok--perfusion is good Pulmonary--exchange is acceptable. Some reduced exchange in the base GI--benign Musculo--no target Neuro--nonfocal Derm--negative Laboratory Results Last 24 Hours Test 10/22/17 07:15 10/22/17 07:17 10/22/17 07:23 10/22/17 07:29 White Blood Count 10.40 K/uL Red Blood Count 4.23 M/uL Hemoglobin 12.5 g/dL Hematocrit 38.6 % Mean Corpuscular Volume 91.3 fL Mean Corpuscular Hemoglobin 29.6 pg Mean Corpuscular Hemoglobin Concent 32.4 g/dl Platelet Count 280 K/uL Mean Platelet Volume 8.8 fL Neutrophils (%) (Auto) 89.4 % Lymphocytes (%) (Auto) 5.0 % Monocytes (%) (Auto) 4.5 % Eosinophils (%) (Auto) 0.6 % Basophils (%) (Auto) 0.1 % Neutrophils # (Auto) 9.30 K/uL Lymphocytes # (Auto) 0.52 K/uL Monocytes # (Auto) 0.47 K/uL Eosinophils # (Auto) 0.06 K/uL Basophils # (Auto) 0.01 K/uL RDW Standard Deviation 57.4 fL RDW Coefficient of Variation 17.3 % Immature Granulocyte % (Auto) 0.4 % Immature Granulocyte # (Auto) 0.04 K/uL Nucleated RBC Absolute Count (auto) 0.02 K/uL Nucleated Red Blood Cells % 0.2 % Prothrombin Time 10.5 SECONDS Prothromb Time International Ratio 1.0 Activated Partial Thromboplast Time 22.9 SECONDS Partial Thromboplastin Ratio 0.9 Sodium Level 137 mmol/L Potassium Level 4.4 mmol/L Chloride Level 99 mmol/L Carbon Dioxide Level 32 mmol/L Anion Gap 6.0 mmol/L Blood Urea Nitrogen 31 mg/dl Creatinine 1.15 mg/dl Estimated GFR () 54.7 Estimated GFR (Non- 47.2 BUN/Creatinine Ratio 27.1 Random Glucose 193 mg/dl Calcium Level 8.9 mg/dl Total Bilirubin 0.6 mg/dl Aspartate Amino Transf (AST/SGOT) 46 U/L Alanine Aminotransferase (ALT/SGPT) 76 U/L Alkaline Phosphatase 92 U/L Total Creatine Kinase 27 U/L Creatine Kinase MB 4.2 ng/ml Creatine Kinase MB Ratio 15.6 Troponin I 0.063 ng/ml Pro-B-Type Natriuretic Peptide 42765 pg/ml Total Protein 7.0 gm/dl Albumin 3.5 gm/dl Globulin 3.5 gm/dl Albumin/Globulin Ratio 1.0 Bedside Lactic Acid Venous 0.84 mmol/L Influenza Type A Antigen POS for Influ A Influenza Type B Antigen Neg for Influ B Arterial Blood pH 7.36 Arterial Blood Partial Pressure CO2 51 mmHg Arterial Blood Partial Pressure O2 176 mm/Hg Arterial Blood HCO3 28 mmol/L Arterial Blood Oxygen Saturation 99.3 % Arterial Blood Base Excess 2.0 mEq/L Arterial Blood Gas Delivery 40 % FIO2 Simba Test POS Test 10/22/17 07:43 Urine Color YELLOW Urine Appearance CLEAR Urine pH 6.5 Urine Specific [place] 1.011 Urine Protein NEG Urine Glucose (UA) NEG Urine Ketones NEG Urine Occult Blood NEG Urine Nitrite NEG Urine Bilirubin NEG Urine Urobilinogen NEG Urine Leukocyte Esterase NEG Urine WBC (Auto) 0 /hpf Urine RBC (Auto) 0-4 /hpf Urine Hyaline Casts (Auto) 1-5 /lpf Urine Epithelial Cells (Auto) 0-5 /lpf Urine Bacteria (Auto) NEG Diagnostic Results Reviewed the labs and images as reported in the EMR Assessment & Plan Flu in the setting of COPD and CHF. She has responded to the Lasix and positive pressure support. Steroids noted as well. 1. ICU--she does not require the care level of the ICU at this time 2. Pulmonary--agree with current supportive approach 3. Cardio--IV lasix already having effect Will track as required.
[2017-10-22 11:44] LABS: HEMOGLOBIN A1C 6.2 % (4.5-5.6)
[2017-10-22] MEDS: ALBUT/IPRATROP 3MG/0.5MG NEB 3 ML VIAL INH SCH ×3 (12:25→19:15)
[2017-10-22] MEDS: PATIENT'S HEIGHT AND/OR WEIGHT NEEDED SCH ×2 (13:04→13:09)
--- NOTE | 2017-10-22 15:12 | PULMONARY CONSULTATION ---
DATE OF CONSULTATION: 10/22/2017 DATE OF CONSULTATION: 10/22/2017 REASON FOR CONSULTATION: COPD exacerbation/hypoxemia. HISTORY OF PRESENT ILLNESS: A 72-year-old white female with severe emphysema, longstanding smoking history over 50 years of 1-2 packs of cigarettes a day and who continues to smoke up to the time of her admission, although to a lesser degree was admitted through the Emergency Room earlier this morning with hypoxemia and was felt to be in CHF with also COPD exacerbation. The patient states over the past several days despite the use of Ventolin inhaler, Combivent inhaler and nebulizer with aerosolized bronchodilator she has been unable to turn the corner and has been extremely dyspneic and air hungry. She has been unable to expectorate a great degree and denies pleuritic pain. In the Emergency Room, her troponin level was mildly elevated, white count was 10,400. Influenza type A antigen was positive. She was placed in droplet isolation and admitted to the hospital. Chest x-ray on admission shows cardiomegaly without overt pulmonary edema and emphysematous changes with chronic interstitial coarsening at the lung bases that does not appear new and there was no focal areas of consolidation. Last CT scan done was in March of the chest and ordered by Dr. Duncan. The patient had no evidence of pulmonary thromboembolic disease at that time but showed cardiomegaly with an AICD in place with diffuse intralobular septal thickening suggesting CHF at the time. The patient was seen in consultation by Dr. Hernandez Mejia from pulmonary during that March admission. The patient has exhibited no hemoptysis but has had a CVA recently and has a history of mesenteric ischemia. She has undergone a left carotid endarterectomy in the past, has a dilated ischemic cardiomyopathy with aortic stenosis, mild to moderate in nature and severe mitral regurgitation. During a August admission, patient was seen by Dr. Fernandes in consultation. The patient has a history of myocardial infarction in 1999 with progressive cardiomyopathy and in 2011 her EF was 30% with moderate to severe mitral regurgitation. She has longstanding left bundle branch block. She underwent biventricular ICD implantation in February of 2012. After initial improvement in her LVEF it slid back down to 25% and her medications have been optimized. She did have a CVA in late May of 2017 without clear cut evidence of atrial fibrillation. She had a hemorrhagic conversion, so she has been not placed on anticoagulant therapy long-term. She has some left residual hand weakness. For details of past medical history, medications, family and social history I refer you to current and past record. PHYSICAL EXAMINATION: GENERAL: Reveals a cachectic elderly white female appearing dyspneic and tachypneic at rest. Occasionally using accessory muscles of respiration. CURRENT VITAL SIGNS: Temperature 36.3, pulse 92 and regular, respiratory rate 24-30, blood pressure 127/64. O2 sat 99% on 3 liters. SKIN: Warm and dry. HEAD, EYES, EARS, NOSE, AND THROAT: Atraumatic, normocephalic, PERRLA, EOMI. Conjunctivae pink. Sclerae nonicteric. Fundi grade 1 changes. NECK: Neck veins are not distended at 45 degrees. No lymphadenopathy in the supra- or infraclavicular areas. LUNGS: Marked prolongation of the expiratory phase of breathing with expiratory wheezes audible. CARDIAC: Sinus tachycardia. I do not appreciate an S3. Grade 2/6 systolic murmur heard at the apex audible. Grade 1/6 SCM heard at the second right intercostal space. ABDOMEN: Soft, scaphoid. No evidence of hepatosplenomegaly. EXTREMITIES: +1 pitting edema. No clubbing or peripheral cyanosis. NEUROLOGICAL: Cranial nerves II-XII grossly intact. No obvious lateralizing signs. Some left handed weakness is noted with difficulty gripping. Gait was not tested. LABORATORY DATA: Chest x-ray is noted. ABGs pH 7.36, pCO2 of 51, pO2 176 on 40% FIO2. PT, PTT, INR within normal limits. BUN 31, creatinine 1.1, lactic acid 0.84. ProBNP 20,931. OVERALL ASSESSMENT: A 72-year-old with severe O2 dependent COPD with acute exacerbation secondary to influenza A and a degree of left ventricular decompensation as well. The patient appears to be in mild to moderate distress and is back on Furosemide 40 mg IV b.i.d. I agree with being aggressive with diuresis with careful attention to patient's blood pressure. She is on IV methylprednisolone along with aerosolized bronchodilator and prophylactic Lovenox therapy. Tamiflu has been started. Would watch for signs of worsening respiratory distress and possible incipient respiratory failure. We will follow along with you. Thank you very much for this consultation.
[2017-10-22] MEDS: hydrOXYzine HCL 25 MG TAB PO PRN (15:21)
[2017-10-22 15:34] LABS: CKMB 2.8 ng/ml (0.5-3.6)
[2017-10-22] MEDS: METHYLPREDNISOLONE IV 80 MG in SYRINGE 0 ML IV SCH ×2 (16:34→23:41)
[2017-10-22] MEDS: FUROSEMIDE INJ 40 MG in SYRINGE 0 ML IV SCH (16:35)
[2017-10-22] MEDS: INSULIN ASPART 100 UNITS/ML 3 ML PEN SC SCH ×2 (17:13→20:51)
[2017-10-22] MEDS: FLUTICASONE/SALMETEROL (ADVAIR) 500/50 INH 14 PUFF INH SCH (20:46)
[2017-10-22] MEDS: CARVEDILOL 12.5 MG TAB PO SCH (20:47)
[2017-10-22] MEDS: ATORVASTATIN 40 MG TAB PO SCH (20:48)
[2017-10-22] MEDS: ASPIRIN 81 MG ECTAB PO SCH (20:48)
[2017-10-22] MEDS: PRAMIPEXOLE DIHYDROCHLORIDE 0.25MG TAB PO SCH (20:48)
[2017-10-22] MEDS: EZETIMIBE 10MG TAB PO SCH (20:49)
[2017-10-22] MEDS: ENOXAPARIN 30 MG/0.3 ML SYR SC SCH (20:50)
[2017-10-22] MEDS: OSELTAMIVIR PHOSPHATE SUSP 30 MG/5 ML UDP PO SCH (20:53)
[2017-10-22] MEDS ORDERED: OSELTAMIVIR PHOSPHATE 75 MG CAP PO SCH (21:00)
[2017-10-22 23:41] LABS: CKMB 2.5 ng/ml (0.5-3.6)
[2017-10-23] VITALS (16 sets, daily range): BP systolic 104–139; BP diastolic 52–79; PULSE 78–117; TEMP 36.4–36.6; O2SAT 83–100
[2017-10-23] MEDS: ALBUT/IPRATROP 3MG/0.5MG NEB 3 ML VIAL INH SCH ×5 (02:29→19:11)
[2017-10-23] MEDS: hydrOXYzine HCL 25 MG TAB PO PRN ×2 (02:33→15:04)
[2017-10-23 05:53] LABS: HEMATOCRIT 35.4 % (37-47); HEMOGLOBIN 11.5 g/dL (12.0-16.0); MEAN CELL VOLUME 90.5 fL (80-100); MEAN CORPUSCULAR HEMOGLOBIN 29.4 pg (25-34); MEAN CORPUSCULAR HGB CONC 32.5 g/dl (32-36); MEAN PLATELET VOLUME 8.8 fL (7.4-10.4); PLATELET COUNT 233 K/uL (130-400); RED CELL DISTRIBUTION WIDTH CV 17.2 % (11.5-14.5); RED CELL DISTRIBUTION WIDTH SD 56.5 fL (36.4-46.3); WHITE BLOOD COUNT 9.21 K/uL (4.8-10.8)
[2017-10-23 06:31] LABS: CALCIUM 8.9 mg/dl (8.5-10.1); CREATININE 1.05 mg/dl (0.60-1.20); POTASSIUM 3.7 mmol/L (3.5-5.1)
[2017-10-23] MEDS: INSULIN ASPART 100 UNITS/ML 3 ML PEN SC SCH ×4 (07:00→21:31)
[2017-10-23] MEDS: FLUTICASONE/SALMETEROL (ADVAIR) 500/50 INH 14 PUFF INH SCH ×2 (07:24→21:00)
[2017-10-23] MEDS: METHYLPREDNISOLONE IV 80 MG in SYRINGE 0 ML IV SCH ×2 (07:24→15:42)
[2017-10-23] MEDS: CARVEDILOL 12.5 MG TAB PO SCH ×2 (07:24→21:15)
[2017-10-23] MEDS: FUROSEMIDE INJ 40 MG in SYRINGE 0 ML IV SCH (07:24)
[2017-10-23] MEDS: CLOPIDOGREL BISULFATE 75 MG TAB PO SCH (07:24)
[2017-10-23] MEDS: OSELTAMIVIR PHOSPHATE SUSP 30 MG/5 ML UDP PO SCH ×2 (07:25→21:00)
[2017-10-23] MEDS: LISINOPRIL 5 MG TAB PO SCH (07:25)
[2017-10-23] MEDS: SERTRALINE HCL 50 MG TAB PO SCH (07:25)
[2017-10-23] MEDS: POTASSIUM CHLORIDE 20 MEQ TABCR PO SCH (09:57)
--- NOTE | 2017-10-23 11:07 | Hospitalist Progress Note ---
Hospitalist Progress Note Date of Service Oct 23, 2017. Subjective Pt evaluation today including: conversation w/ patient, physical exam, chart review, lab review, review of inpatient medication list Pain: None PO Intake: Tolerating PO diet Voiding: mckeon catheter in place Patient states that her breathing feels a bit better this morning. She states that she did have a bad night last night however, stating that her breathing had been much more labored last night. The patient complains of fatigue as she did not sleep much. She is still short of breath this morning, but this is improved from last night. She complains of a wet cough but she has not been able to produce anything. Mckeon catheter in place draining clear yellow urine. The patient denies fevers, chills, sweats, chest pain, palpitations, claudication, wheezing, nausea, vomiting, abdominal pain, dysuria, hematuria, urinary retention, paralysis, weakness, numbness and tingling. Additional Comments: See HPI for pertinent positives and negatives. All other systems reviewed and negative. Objective Vital Signs Date Time Temp Pulse Resp B/P (MAP) Pulse Ox O2 Delivery O2 Flow Rate FiO2 10/23/17 09:26 Oxymask 10/23/17 08:13 Nasal Cannula 5.0 10/23/17 07:51 36.5 115 32 135/79 (97) 97 Diffusion Mask 10.0 10/23/17 07:05 110 20 100 Mask 5.0 10/23/17 04:04 36.6 97 21 132/68 (89) 100 Oxymask 10.0 10/23/17 04:00 Oxymask 5.0 10/23/17 02:30 117 20 100 Mask 15.0 10/23/17 00:00 Nasal Cannula 3.0 10/23/17 00:00 36.4 98 23 139/67 (91) 99 Nasal Cannula 3.0 10/22/17 20:00 100 Nasal Cannula 3.0 10/22/17 19:17 89 20 98 Nasal Cannula 3.0 10/22/17 19:10 36.4 95 26 136/59 (84) 100 Nasal Cannula 3.0 10/22/17 16:00 100 Nasal Cannula 3.0 10/22/17 15:47 36.8 86 22 116/64 (81) 100 Nasal Cannula 2.0 10/22/17 15:02 88 22 92 Nasal Cannula 3.0 10/22/17 12:36 36.3 92 24 127/64 99 Nasal Cannula 3.0 10/22/17 12:25 88 24 99 Nasal Cannula 3.0 10/22/17 11:56 96 20 120/64 100 Physical Exam Notes: General appearance: Well-developed, well-nourished, no apparent distress Head: Normocephalic, atraumatic Eyes: Normal inspection, PERRL, EOMI ENT: Normal ENT inspection, hearing grossly normal, pharynx normal Neck: Supple, no JVD, trachea midline Respiratory/Chest: +Decreased breath sounds throughout, especially in bases. Wheezing. No respiratory distress Cardiovascular: Regular rate & rhythm, no gallop, no murmur Abdomen/GI: Normal bowel sounds, non-tender, soft Extremities/Musculoskeletal: Normal inspection, no calf tenderness, no pedal edema Neurological/Psych: Alert, normal mood/affect, oriented x 3 Skin: Normal color, warm/dry, no rash Laboratory Results Last 24 Hours Test 10/22/17 14:54 10/22/17 16:07 10/22/17 20:11 10/22/17 22:45 Total Creatine Kinase 20 U/L 22 U/L Creatine Kinase MB 2.8 ng/ml 2.5 ng/ml Creatine Kinase MB Ratio 14.0 11.4 Troponin I 0.056 ng/ml 0.054 ng/ml Bedside Glucose 159 mg/dl 167 mg/dl Test 10/23/17 05:36 10/23/17 06:47 10/23/17 10:37 10/23/17 10:38 White Blood Count 9.21 K/uL Red Blood Count 3.91 M/uL Hemoglobin 11.5 g/dL Hematocrit 35.4 % Mean Corpuscular Volume 90.5 fL Mean Corpuscular Hemoglobin 29.4 pg Mean Corpuscular Hemoglobin Concent 32.5 g/dl RDW Standard Deviation 56.5 fL RDW Coefficient of Variation 17.2 % Platelet Count 233 K/uL Mean Platelet Volume 8.8 fL Sodium Level 141 mmol/L Potassium Level 3.7 mmol/L Chloride Level 103 mmol/L Carbon Dioxide Level 34 mmol/L Anion Gap 4.0 mmol/L Blood Urea Nitrogen 38 mg/dl Creatinine 1.05 mg/dl Est Creatinine Clear Calc Drug Dose 34.9 ml/min Estimated GFR () 61.0 Estimated GFR (Non- 52.6 BUN/Creatinine Ratio 36.3 Random Glucose 139 mg/dl Calcium Level 8.9 mg/dl Magnesium Level 2.5 mg/dl Bedside Glucose 153 mg/dl Assessment and Plan 72 y/o female with a history of CAD, HTN, HLD, [place], CVA, systolic CHF, COPD, DM II, CKD stage II-III, iron deficiency anemia, RLS, anxiety/depression, and GERD who presented to the ED on 10/22 with worsening shortness of breath. Pt arrived to ED afebrile, tachycardic and tachypneic. She had been placed on CPAP en route to ED, switched to BiPAP. CXR without overt pulmonary edema. EKG paced rhythm. ABG shows pH 7.36, pCO2 51. BNP 24022. Troponin elevated at 0.063. Positive for influenza A. Pt received Solu-Medrol 125 mg IV, Lasix 40 mg IV, hour long DuoNeb, magnesium 1 gm IV, and Tamiflu in ED. Acute on chronic respiratory failure secondary to COPD exacerbation vs systolic CHF exacerbation vs flu--ongoing -Admit to telemetry. No acute events overnight, pt paced, HR 80s to low 100s -O2 by protocol. Currently on 4L oxymask -Pt not on BiPAP for long, will recheck ABG to assess for CO2 retention -Solu-Medrol 80 mg IV q8h -DuoNebs QIDR and q2h prn SOB/wheezing. Hold home Combivent -Continue Advair 500/50 1 puff inh BID -Consult pulmonology, appreciate recs: Agree with aggressive diuresis with careful attention to blood pressure. Watch for signs of worsening respiratory distress. -Check ESR, CRP, procalcitonin to rule out other underlying infection Acute on chronic systolic CHF, s/p biventricular ICD--improving. Pitting edema resolved -No overt edema on CXR but with worsening pitting edema and 3-4 lb weight gain, BNP over 20k -D/C IV Lasix -Resume home dose Lasix 40 mg PO qd -Continue lisinopril, carvedilol -Daily weights, I's & O's -UO 900 cc, net balance -725 cc on 10/22 -Mckeon in placed in ED Influenza A--ongoing -Tamiflu 30 mg PO BID x 5 days, renally dosed. Day 2 of 5 -Droplet precautions Elevated troponin--chronic, trop was the same in August -Troponin trend: 0.063-->0.056-->0.054 -EKG q am and prn chest pain CAD, HTN, HLD, [place], CVA--stable -Continue ASA, Plavix, lisinopril 5 mg PO qd, Coreg 12.5 mg PO BID, Lipitor 80 mg PO hs, Zetia 10 mg PO hs DM II--diet controlled at home -Insulin sliding scale -Check BSGs q ac and qhs -HgbA1c 6.2 on 10/22 CKD stage II-III--stable, at baseline ANJALI--stable, currently off iron RLS -Continue Mirapex 0.25 mg PO hs Anxiety/depression -Continue Zoloft 50 mg PO qd and Vistaril 25 mg PO BID prn anxiety Wound right heel--stepped on glass last night -Consult wound care nurse DVT prophylaxis -Enoxaparin 30 mg SC q24h -BABAR Vasquez Code Status -Level I, FULL RESUSCITATION STATUS Dispo -From home, consult case management, PT/OT evaluate and treat
--- NOTE | 2017-10-23 11:56 | Clinical Documentation Query ---
CLINICAL DOCUMENTATION QUERY Ms. Caldwell, In your clinical opinion is this patient being managed for: ( x ) possible demand ischemia ( ) Not Agree. Troponin is chronically elevated and is at baseline ( ) Other explanation of clinical findings (Please Explain) ( ) Unable to determine (Please Define) ( ) Need to Discuss The medical record reflects the following clinical findings, treatment, and risk factors. Clinical Indicators: 72 yo female presenting with increasing dyspnea. VS 36.8-102-36 161/78 100% on BIPAP. Trops 0.063/0.056/0.054 Treatment: tele monitoring, IV solumedrol, duonebs, IV lasix, serial cardiac enzymes, BIPAP, tamiflu, pulmonary consult Risk Factors: acute respiratory, acute systolic CHF, inflenza, COPD exacerbation Please clarify and document your clinical opinion in the progress notes and discharge summary. Terms such as "probable", "suspected", "likely", "questionable", "possible", or "still to be ruled out" are acceptable. IF IN AGREEMENT, YOU MUST DOCUMENT ABOVE DIAGNOSTIC STATEMENT IN DAILY PROGRESS NOTES AND DISCHARGE SUMMARY. This document is not part of the patient's record. Thank You, Katelyn Rey, RN [phone]
--- NOTE | 2017-10-23 11:58 | Clinical Documentation Query ---
CLINICAL DOCUMENTATION QUERY Dr. SUAREZ, In your clinical opinion is this patient being managed for: ( x ) demand ischemia ( ) Not Agree ( ) Other explanation of clinical findings (Please Explain) ( ) Unable to determine (Please Define) ( ) Need to Discuss The medical record reflects the following clinical findings, treatment, and risk factors. Clinical Indicators: 72 yo female presenting with increasing dyspnea. VS 36.8-102-36 161/78 100% on BIPAP. Trops 0.063/0.056/0.054 Treatment: tele monitoring, IV solumedrol, duonebs, IV lasix, serial cardiac enzymes, BIPAP, tamiflu, pulmonary consult Risk Factors: acute respiratory, acute systolic CHF, inflenza, COPD exacerbation Please clarify and document your clinical opinion in the progress notes and discharge summary. Terms such as "probable", "suspected", "likely", "questionable", "possible", or "still to be ruled out" are acceptable. IF IN AGREEMENT, YOU MUST DOCUMENT ABOVE DIAGNOSTIC STATEMENT IN DAILY PROGRESS NOTES AND DISCHARGE SUMMARY. This document is not part of the patient's record. Thank You, Katelyn Rey, RN [phone]
--- NOTE | 2017-10-23 15:45 | PULMONARY PROGRESS NOTE ---
DATE: 10/23/2017 DATE: 10/23/2017 The patient evaluation today including: Conversation with patient, physical exam, chart review, lab review and review of inpatient medication list. SUBJECTIVE: The patient states she is feeling somewhat better today. She is less dyspneic, less congested. She did have a rough night and she is unwilling to leave the bed as this causes great anxiety given her limited virtually absent respiratory reserve. She does not feel like her breathing is as labored as it was yesterday. She still is not producing any significant amount of mucus or phlegm. PHYSICAL EXAMINATION: VITAL SIGNS: Temperature 36.5, pulse 115 and regular, respiratory rate 32, blood pressure 135/79, O2 sat 97%. This was on diffusion mask at 10 liters earlier and most recently 5 liters with adequate saturation greater than 90%. SKIN: Without lesion. HEAD, EYES, EARS, NOSE, AND THROAT: Atraumatic, normocephalic. PERRLA. LUNGS: Distant P&A with scattered wheeze right base, but better air entry and better air movement today. CARDIAC: Exam sinus tachycardia. I do not appreciate a gallop. ABDOMEN: Soft, scaphoid. EXTREMITIES: Trace pedal edema. NEUROLOGIC: Intact. No lateralizing signs. LABORATORY DATA: Influenza type A antigen positive on admission. OVERALL ASSESSMENT: A 72-year-old with severe O2 dependent chronic obstructive pulmonary disease with acute exacerbation viral in nature with patient seemingly less symptomatic than yesterday but still extremely limited ventilatory reserve. Would slowly wean steroid therapy and try to mobilize if possible. Will follow along with you.
[2017-10-23] MEDS: ASPIRIN 81 MG ECTAB PO SCH (21:00)
[2017-10-23] MEDS: EZETIMIBE 10MG TAB PO SCH (21:00)
[2017-10-23] MEDS: ATORVASTATIN 40 MG TAB PO SCH (21:00)
[2017-10-23] MEDS: GUAIFENESIN 600 MG TABCR PO SCH (21:00)
[2017-10-23] MEDS: PRAMIPEXOLE DIHYDROCHLORIDE 0.25MG TAB PO SCH (21:00)
[2017-10-23] MEDS: ENOXAPARIN 30 MG/0.3 ML SYR SC SCH (21:24)
[2017-10-24] VITALS (14 sets, daily range): BP systolic 123–141; BP diastolic 54–71; PULSE 73–93; TEMP 36.2–37.2; O2SAT 89–100
[2017-10-24] MEDS: METHYLPREDNISOLONE IV 80 MG in SYRINGE 0 ML IV SCH ×3 (00:01→16:14)
[2017-10-24 05:37] LABS: HEMOGLOBIN 11.2 g/dL (12.0-16.0); MEAN CELL VOLUME 90.9 fL (80-100); MEAN CORPUSCULAR HEMOGLOBIN 29.1 pg (25-34); MEAN PLATELET VOLUME 8.8 fL (7.4-10.4); PLATELET COUNT 236 K/uL (130-400); RED CELL DISTRIBUTION WIDTH CV 17.5 % (11.5-14.5); RED CELL DISTRIBUTION WIDTH SD 58.5 fL (36.4-46.3); WHITE BLOOD COUNT 9.92 K/uL (4.8-10.8)
[2017-10-24 06:10] LABS: CALCIUM 8.9 mg/dl (8.5-10.1); CREATININE 1.03 mg/dl (0.60-1.20); POTASSIUM 4.2 mmol/L (3.5-5.1)
[2017-10-24] MEDS: ALBUT/IPRATROP 3MG/0.5MG NEB 3 ML VIAL INH SCH (07:18)
[2017-10-24] MEDS: FLUTICASONE/SALMETEROL (ADVAIR) 500/50 INH 14 PUFF INH SCH ×2 (07:53→21:27)
[2017-10-24] MEDS: CLOPIDOGREL BISULFATE 75 MG TAB PO SCH (07:54)
[2017-10-24] MEDS: CARVEDILOL 12.5 MG TAB PO SCH ×2 (07:54→21:27)
[2017-10-24] MEDS: FUROSEMIDE 40 MG TAB PO SCH (07:55)
[2017-10-24] MEDS: hydrOXYzine HCL 25 MG TAB PO PRN ×2 (07:55→16:16)
[2017-10-24] MEDS: GUAIFENESIN 600 MG TABCR PO SCH ×2 (07:56→21:28)
[2017-10-24] MEDS: POTASSIUM CHLORIDE 20 MEQ TABCR PO SCH (07:57)
[2017-10-24] MEDS: LISINOPRIL 5 MG TAB PO SCH (07:58)
[2017-10-24] MEDS: OSELTAMIVIR PHOSPHATE SUSP 30 MG/5 ML UDP PO SCH ×2 (08:04→21:28)
[2017-10-24] MEDS: SERTRALINE HCL 50 MG TAB PO SCH (08:04)
[2017-10-24] MEDS: INSULIN ASPART 100 UNITS/ML 3 ML PEN SC SCH ×4 (08:10→21:32)
--- NOTE | 2017-10-24 10:11 | Hospitalist Progress Note ---
Hospitalist Progress Note Date of Service Oct 24, 2017. Subjective Pt evaluation today including: conversation w/ patient, physical exam, chart review, lab review, review of inpatient medication list Pain: None PO Intake: Tolerating PO diet Voiding: mckeon catheter in place Patient reports feeling better. She states that she had a better night last night sleeping with BiPAP on. Reviewed tele and patient had 30 second run of v- tach at 20:24 last night. She denies any chest pain, palpitations, or shortness of breath at that time. She still complains of some shortness of breath but states that it's improving. She still complains of a wet but non- productive cough. She still complains of fatigue. The patient denies fevers, chills, sweats, chest pain, palpitations, claudication, wheezing, nausea, vomiting, abdominal pain, dysuria, hematuria, urinary retention, paralysis, weakness, numbness and tingling. Additional Comments: See HPI for pertinent positives and negatives. All other systems reviewed and negative. Objective Vital Signs Date Time Temp Pulse Resp B/P (MAP) Pulse Ox O2 Delivery O2 Flow Rate FiO2 10/24/17 07:46 36.7 92 20 137/57 (83) 100 Nasal Cannula 3.0 10/24/17 07:18 90 22 98 Nasal Cannula 3.0 10/24/17 04:05 37.2 80 18 140/71 (94) 94 10/24/17 04:00 BiPAP 10/24/17 01:57 73 100 30 10/24/17 00:02 36.2 80 20 141/66 (91) 98 10/24/17 00:00 BiPAP 10/23/17 23:39 97 100 30 10/23/17 21:16 91 Oxymask 3.0 10/23/17 21:14 87 104/52 (69) 10/23/17 20:00 94 BiPAP 30 10/23/17 19:16 78 22 98 BiPAP/CPAP 30 10/23/17 19:15 78 98 30 10/23/17 18:56 36.6 87 27 104/52 (69) 83 Room Air 10/23/17 16:22 Nasal Cannula 3.0 10/23/17 15:17 36.4 99 26 120/64 (82) 100 Oxymask 3.0 1/17/18 14:47 106 20 96 Mask 3.0 10/23/17 12:27 Nasal Cannula 4.0 10/23/17 11:36 36.4 90 24 135/79 (97) 100 10/23/17 11:17 84 20 96 Mask 4.0 Physical Exam Notes: General appearance: Well-developed, well-nourished, no apparent distress Head: Normocephalic, atraumatic Eyes: Normal inspection, PERRL, EOMI ENT: Normal ENT inspection, hearing grossly normal, pharynx normal Neck: Supple, no JVD, trachea midline Respiratory/Chest: +Decreased breath sounds throughout. Wheezing throughout. No respiratory distress Cardiovascular: Regular rate & rhythm, no gallop, no murmur Abdomen/GI: Normal bowel sounds, non-tender, soft Extremities/Musculoskeletal: Normal inspection, no calf tenderness, no pedal edema Neurological/Psych: Alert, normal mood/affect, oriented x 3 Skin: Normal color, warm/dry, no rash Laboratory Results Last 24 Hours Test 10/23/17 11:17 10/23/17 11:26 10/23/17 16:24 10/23/17 20:17 Erythrocyte Sedimentation Rate 10 mm/hr Arterial Blood pH 7.42 Arterial Blood Partial Pressure CO2 54 mmHg Arterial Blood Partial Pressure O2 84 mm/Hg Arterial Blood HCO3 34 mmol/L Arterial Blood Oxygen Saturation 95.6 % Arterial Blood Base Excess 8.3 mEq/L Arterial Blood Gas Delivery 5 L Simba Test POS C-Reactive Protein 2.98 mg/dl Procalcitonin 0.09 ng/ml Bedside Glucose 159 mg/dl 126 mg/dl 182 mg/dl Test 10/24/17 05:24 White Blood Count 9.92 K/uL Red Blood Count 3.85 M/uL Hemoglobin 11.2 g/dL Hematocrit 35.0 % Mean Corpuscular Volume 90.9 fL Mean Corpuscular Hemoglobin 29.1 pg Mean Corpuscular Hemoglobin Concent 32.0 g/dl RDW Standard Deviation 58.5 fL RDW Coefficient of Variation 17.5 % Platelet Count 236 K/uL Mean Platelet Volume 8.8 fL Sodium Level 141 mmol/L Potassium Level 4.2 mmol/L Chloride Level 102 mmol/L Carbon Dioxide Level 34 mmol/L Anion Gap 5.0 mmol/L Blood Urea Nitrogen 46 mg/dl Creatinine 1.03 mg/dl Est Creatinine Clear Calc Drug Dose 35.6 ml/min Estimated GFR () 62.5 Estimated GFR (Non- 53.9 BUN/Creatinine Ratio 44.3 Random Glucose 148 mg/dl Calcium Level 8.9 mg/dl Assessment and Plan 72 y/o female with a history of CAD, HTN, HLD, [place], CVA, systolic CHF, COPD, DM II, CKD stage II-III, iron deficiency anemia, RLS, anxiety/depression, and GERD who presented to the ED on 10/22 with worsening shortness of breath. Pt arrived to ED afebrile, tachycardic and tachypneic. She had been placed on CPAP en route to ED, switched to BiPAP. CXR without overt pulmonary edema. EKG paced rhythm. ABG shows pH 7.36, pCO2 51. BNP 16273. Troponin elevated at 0.063. Positive for influenza A. Pt received Solu-Medrol 125 mg IV, Lasix 40 mg IV, hour long DuoNeb, magnesium 1 gm IV, and Tamiflu in ED. Acute on chronic respiratory failure secondary to COPD exacerbation vs systolic CHF exacerbation vs flu--ongoing -Admit to telemetry. Pt mostly paced rhythm, HR 80s-90s overnight, however did have a 30 second run of v-tach at 20:24 -Repeat ABG still with hypercarbia, pCO2 54. BiPAP placed again yesterday and slept better with BiPAP on. Currently 100% on 3L NC. -Solu-Medrol 80 mg IV q8h -Change DuoNeb to Xopenex/Atrovent nebs QIDR. Hold home Combivent -Continue Advair 500/50 1 puff inh BID -Consult pulmonology, appreciate recs: Would slowly wean steroid therapy and try to mobilize if possible. -ESR, procalcitonin WNL. CRP elevated at 2.98. Blood cultures NGTD -Mobilize as tolerated, bed to chair 30 second run v-tach--asymptomatic at that time -Potassium over 4, calcium WNL -Check magnesium and phosphorus Acute on chronic systolic CHF, s/p biventricular ICD--resolving -No overt edema on CXR but with worsening pitting edema and 3-4 lb weight gain, BNP over 20k -Continue home dose Lasix 40 mg PO qd -Continue lisinopril, carvedilol -Daily weights, I's & O's -UO 1425 cc, net balance -915 cc 10/23 -D/C Mckeon Influenza A--ongoing -Tamiflu 30 mg PO BID x 5 days, renally dosed. Day 3 of 5 -Droplet precautions Elevated troponin--chronic, trop was the same in August -Troponin trend: 0.063-->0.056-->0.054 -EKG q am and prn chest pain CAD, HTN, HLD, [place], CVA--stable -Continue ASA, Plavix, lisinopril 5 mg PO qd, Coreg 12.5 mg PO BID, Lipitor 80 mg PO hs, Zetia 10 mg PO hs DM II--diet controlled at home -Insulin sliding scale -Check BSGs q ac and qhs -HgbA1c 6.2 on 10/22 CKD stage II-III--stable, at baseline ANJALI--stable, currently off iron RLS -Continue Mirapex 0.25 mg PO hs Anxiety/depression -Continue Zoloft 50 mg PO qd and Vistaril 25 mg PO BID prn anxiety Wound right heel--stepped on glass last night -Consult wound care nurse DVT prophylaxis -Enoxaparin 30 mg SC q24h -BABAR Vasquez Code Status -Level I, FULL RESUSCITATION STATUS Dispo -From home, consult case management, PT/OT evaluate and treat
[2017-10-24 10:32] LABS: PHOSPHORUS 4.2 mg/dl (2.5-4.9)
[2017-10-24] MEDS: LEVALBUTEROL 1.25MG/0.5ML NEB INH SCH ×3 (11:13→18:39)
[2017-10-24] MEDS: IPRATROPIUM BROMIDE NEB SOLN 0.02% 2.5 ML VIAL INH SCH ×3 (11:13→18:39)
[2017-10-24] MEDS ORDERED: LEVALBUTEROL/IPRATROPIUM NEB INH SCH (12:00)
--- NOTE | 2017-10-24 14:01 | PULMONARY PROGRESS NOTE ---
DATE: 10/24/2017 PROBLEM LIST: Severe O2 dependent COPD with acute exacerbation. SUBJECTIVE: The patient reports that she is feeling little better than she was yesterday. She has still not been out of bed. Right now she is getting her nebulizer 4 times a day. She states that she feels she does get some relief, but it does not seem to last all the way through until the next treatment. She does have a little bit of cough and congestion at times. She is not really able to bring a lot of mucus up, and now when she does there is a slightly yellow coloration to it. She does have some wheezing. She just feels rundown and tired as well. She denies any chest pain or painful respirations. She denies any abdominal pain. She states her bowels are moving. She states that she does have a catheter in and has no difficulty voiding. She has no swelling in her extremities. OBJECTIVE: GENERAL: The patient is a 72-year-old female, lying in bed. She is interactive and cooperative. She is alert and oriented. No acute respiratory distress noted. VITAL SIGNS: Temp 36.3, pulse 77, respirations 20, blood pressure is 123/60, pulse ox is 100% on 3 liters. HEENT: Normocephalic, atraumatic. Pupils equal, round and reactive to light and accommodation. Extraocular movements are intact. [place] moist gingival and buccal mucosae. NECK: Thin and supple. No mass, no adenopathy, no bruit. CHEST: Diminished breath sounds bilaterally. She does have some diffuse wheezing throughout. No rale or rhonchi noted. CARDIOVASCULAR: Regular rate and rhythm. No murmurs, gallops or rubs. ABDOMEN: Bowel sounds are present. Abdomen is soft. No tenderness. No guarding, rigidity or organomegaly. EXTREMITIES: No erythema or edema. NEUROLOGIC: Cranial nerves II-XII are intact. No focal deficit noted. LABORATORY DATA: Shows white count of 9000, H&H 11.2 and 35.0, platelet count 236,000. She is positive for influenza A. Blood cultures are negative to date. No new imaging data. IMPRESSION: This is a 72-year-old female with known influenza A and severe oxygen-dependent chronic obstructive pulmonary disease. At this point, patient is receiving appropriate treatment and we just need to focus a little bit more on her pulmonary toilet. At this time, I would like for her nebulizers to be changed to q. 4 hours since she is getting some relief with them. Continue oxygenation as it is. I am going to continue steroids as they are due to her continued wheezing at this time; however, if she does improve tomorrow, we can start to slowly taper. I would also like for her to have an incentive spirometer and flutter valve to see if this helps loosen things up in her chest, she is agreeable to this. We will reevaluate patient in the morning.
[2017-10-24] MEDS: ASPIRIN 81 MG ECTAB PO SCH (21:27)
[2017-10-24] MEDS: PRAMIPEXOLE DIHYDROCHLORIDE 0.25MG TAB PO SCH (21:28)
[2017-10-24] MEDS: ATORVASTATIN 40 MG TAB PO SCH (21:28)
[2017-10-24] MEDS: EZETIMIBE 10MG TAB PO SCH (21:29)
[2017-10-24] MEDS: ENOXAPARIN 30 MG/0.3 ML SYR SC SCH (21:29)
[2017-10-25] VITALS (13 sets, daily range): BP systolic 111–150; BP diastolic 58–85; PULSE 60–97; TEMP 36.5–36.6; O2SAT 97–100; Ht 157.5 cm; Wt 47.3 kg
[2017-10-25] MEDS: METHYLPREDNISOLONE IV 80 MG in SYRINGE 0 ML IV SCH (00:16)
[2017-10-25] MEDS: hydrOXYzine HCL 25 MG TAB PO PRN (01:32)
[2017-10-25] MEDS: FLUTICASONE/SALMETEROL (ADVAIR) 500/50 INH 14 PUFF INH SCH ×2 (07:25→20:52)
[2017-10-25] MEDS: FUROSEMIDE 40 MG TAB PO SCH (07:28)
[2017-10-25] MEDS: CLOPIDOGREL BISULFATE 75 MG TAB PO SCH (07:28)
[2017-10-25] MEDS: POTASSIUM CHLORIDE 20 MEQ TABCR PO SCH (07:28)
[2017-10-25] MEDS: SERTRALINE HCL 50 MG TAB PO SCH (07:28)
[2017-10-25] MEDS: LISINOPRIL 5 MG TAB PO SCH (07:28)
[2017-10-25] MEDS: GUAIFENESIN 600 MG TABCR PO SCH ×2 (07:28→20:51)
[2017-10-25] MEDS: IPRATROPIUM BROMIDE NEB SOLN 0.02% 2.5 ML VIAL INH SCH ×4 (07:31→19:26)
[2017-10-25] MEDS: LEVALBUTEROL 1.25MG/0.5ML NEB INH SCH ×4 (07:31→19:26)
[2017-10-25] MEDS: OSELTAMIVIR PHOSPHATE SUSP 30 MG/5 ML UDP PO SCH ×2 (07:32→21:29)
[2017-10-25] MEDS: CARVEDILOL 12.5 MG TAB PO SCH ×2 (07:39→20:51)
[2017-10-25 08:55] LABS: CALCIUM 9.3 mg/dl (8.5-10.1); CREATININE 0.98 mg/dl (0.60-1.20); PHOSPHORUS 4.7 mg/dl (2.5-4.9); POTASSIUM 4.6 mmol/L (3.5-5.1)
[2017-10-25] MEDS: INSULIN ASPART 100 UNITS/ML 3 ML PEN SC SCH ×4 (09:12→20:55)
[2017-10-25 10:22] LABS: HEMATOCRIT 34.7 % (37-47); HEMOGLOBIN 11.1 g/dL (12.0-16.0); MEAN CELL VOLUME 91.6 fL (80-100); MEAN CORPUSCULAR HEMOGLOBIN 29.3 pg (25-34); MEAN PLATELET VOLUME 9.1 fL (7.4-10.4); PLATELET COUNT 221 K/uL (130-400); RED CELL DISTRIBUTION WIDTH CV 17.4 % (11.5-14.5); RED CELL DISTRIBUTION WIDTH SD 58.4 fL (36.4-46.3); WHITE BLOOD COUNT 10.15 K/uL (4.8-10.8)
--- NOTE | 2017-10-25 10:59 | Cardiology Consultation ---
Cardiology Consultation Date of Consultation: Oct 25, 2017. Requesting Physician: Dr. Rm Attending Physician: Dr. Fernandes Reason for Consultation: 2 episodes of NSVT Pt evaluation today including: conversation w/ patient, physical exam, chart review, lab review, review of studies, review of inpatient medication list, conversation w/ attending History of Present Illness The patient is a 72-year-old white female with a complex past medical history significant for CAD/inferior [place] 1999, hypertension, dyslipidemia, type 2 diabetes mellitus, COPD, tobacco abuse, systolic/diastolic CHF and cardiomyopathy (EF 25-30%), S/P [employer] ICD/BiV pacemaker implantation with elective generator replacement 02/21/2017, peripheral arterial disease ( S/P right iliofemoral endarterectomy and popliteal/SFA angioplasties 05/04/13, 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 She presented to the ED on 10/22/2017 via EMS with worsening shortness of breath. Patient was also experiencing a cough. She noted increased lower extremity edema and a weight gain of 4-5 lbs according to her home scales. In the ED, she was treated with Lasix 40 mg IV for CHF exacerbation. She was also treated for a COPD exacerbation with IV Solu-Medrol and Duoneb. She tested positive for influenza A and was initiated on treatment with Tamiflu. She was admitted for further evaluation/treatment and has been followed closely by pulmonology in regards to her respiratory status. Her Lasix has been switched back to her usual 40 mg PO daily. She has had a net loss of 2 L during the admission. On telemetry monitoring, she was noted to have 2 episodes of a wide complex tachycardia. The consult was requested due to the arrhythmia noted on telemetry. The patient is currently being seen in her room in 209. She reports that she continues to feel short of breath with minimal exertion. She continues to note a cough, which is nonproductive. She denies orthopnea, but admits to waking up short of breath throughout the night. She denies any lower extremity edema. She denies chest pain or other anginal type symptoms. She has not experienced any palpitations, and she denies lightheadedness, presyncope, or syncope. She denies abnormal bleeding or cerebrovascular symptoms. Review of Systems: As noted in HPI. All other 10 point ROS reviewed and otherwise negative. Family History Breast cancer Diabetes mellitus FH: heart disease Hypertension Kidney disease Kidney stones Lung disease Myocardial infarction Noncontributory given her own disease. Social History Smoking Status: Current Some Day Smoker History of Alcohol Use: No She continues to smoke a few cigarettes daily. She denies alcohol or illicit drug use. Allergies Coded Allergies: Sulfa Antibiotics (Verified Allergy, Intermediate, RASH, 10/22/17) Morphine (Verified Adverse Reaction, Mild, GI SYMPTOMS, 10/22/17) Medications Current Inpatient Medications Medications (Trade) Dose Ordered Sig/Osmani Route Start Time Stop Time Status Last Admin Dose Admin Enoxaparin Sodium (Lovenox Inj) 30 mg QPM SC 10/22/17 21:00 11/21/17 20:59 10/24/17 21:29 30 MG Acetaminophen (Tylenol Tab) 650 mg Q4H PRN PO 10/22/17 09:15 11/21/17 09:14 Al Hydrox/Mg Hydrox/Simethicone (Maalox Max Susp) 15 ml Q4H PRN PO 10/22/17 09:15 11/21/17 09:14 Magnesium Hydroxide (Milk Of Magnesia Susp) 30 ml Q12H PRN PO 10/22/17 09:15 11/21/17 09:14 Ondansetron HCl (Zofran Inj) 4 mg Q6H PRN IV 10/22/17 09:15 11/21/17 09:14 Polyethylene (Miralax Powder Packet) 17 gm DAILY PRN PO 10/22/17 09:15 11/21/17 09:14 Aspirin (Ecotrin Tab) 81 mg QPM PO 10/22/17 21:00 11/21/17 20:59 10/24/17 21:27 81 MG Atorvastatin Calcium (Lipitor Tab) 80 mg HS PO 10/22/17 21:00 11/21/17 20:59 10/24/17 21:28 80 MG Carvedilol (Coreg Tab) 12.5 mg BID PO 10/22/17 21:00 11/21/17 20:59 10/25/17 07:39 12.5 MG Clopidogrel Bisulfate (plAVix TAB) 75 mg QAM PO 10/23/17 09:00 11/22/17 08:59 10/25/17 07:28 75 MG EZETIMIBE (Zetia Tab) 10 mg HS PO 10/22/17 21:00 11/21/17 20:59 10/24/17 21:29 10 MG Salmeterol Xinafoate/ Fluticasone (Advair Diskus 500/50 Inh) 1 puff BID INH 10/22/17 21:00 11/21/17 20:59 10/25/17 07:25 1 PUFF Furosemide (Lasix Tab) 40 mg DAILY PO 10/23/17 09:00 11/22/17 08:59 Future hold 10/25/17 07:28 40 MG Hydroxyzine HCl (Vistaril Tab) 25 mg BID PRN PO 10/22/17 09:15 11/21/17 09:14 10/25/17 01:32 25 MG Lisinopril (Zestril Tab) 5 mg QAM PO 10/23/17 09:00 11/22/17 08:59 10/25/17 07:28 5 MG Pramipexole Dihydrochloride (miraPEX TAB) 0.25 mg HS PO 10/22/17 21:00 11/21/17 20:59 10/24/17 21:28 0.25 MG Sertraline HCl (Zoloft Tab) 50 mg QAM PO 10/23/17 09:00 11/22/17 08:59 10/25/17 07:28 50 MG Insulin Aspart (novoLOG ASPART) SLIDING SCALE If C... ACHS SC 10/22/17 16:15 11/21/17 16:14 10/25/17 09:12 1 UNITS Glucose (Glucose 40% Gel) 15-30 GRAMS 15 GRAMS... UD PRN PO 10/22/17 10:00 11/21/17 09:59 Glucose (Glucose Chew Tab) 4-8 Tablets 4 Tabl... UD PRN PO 10/22/17 10:00 11/21/17 09:59 Dextrose (Dextrose 50% 50ML Syringe) 25-50ML OF 50% DW IV FOR... UD PRN IV 10/22/17 10:00 11/21/17 09:59 Glucagon (Glucagon Inj) 1 mg UD PRN SQ 10/22/17 10:00 11/21/17 09:59 Oseltamivir Phosphate (Tamiflu Susp) 30 mg BID PO 10/22/17 21:00 10/26/17 21:01 10/25/17 07:32 30 MG Potassium Chloride (Klor-Con Tab) 20 meq QAM PO 10/23/17 09:00 11/22/17 08:59 10/25/17 07:28 20 MEQ Guaifenesin (Mucinex Contr Rel Tab) 600 mg Q12 PO 10/23/17 21:00 11/22/17 20:59 10/25/17 07:28 600 MG Ipratropium Gilead (Atrovent 0.02% 0.5MG/2.5ML Neb) 0.5 mg QIDR INH 10/24/17 12:00 11/23/17 11:59 10/25/17 07:31 0.5 MG Levalbuterol (Xopenex 1.25MG/ 0.5ML Neb) 1.25 mg QIDR INH 10/24/17 12:00 11/23/17 11:59 10/25/17 07:31 1.25 MG Methylprednisolone Sodium Succinate 60 mg/Syringe 0.96 ml @ 1.5 mls/min Q8 IV 10/25/17 14:00 11/24/17 13:59 Physical Exam Vital Signs Past 12 Hours Date Time Temp Pulse Resp B/P (MAP) Pulse Ox O2 Delivery O2 Flow Rate FiO2 10/25/17 07:49 36.6 84 18 143/73 (96) 100 2.0 10/25/17 07:31 73 24 100 Nasal Cannula 2.0 10/25/17 04:00 98 Nasal Cannula 2.5 10/25/17 03:43 36.5 79 20 150/64 (92) 98 Nasal Cannula 2.0 10/25/17 00:00 36.5 84 145/70 (95) 99 Nasal Cannula 3.0 10/25/17 00:00 99 Nasal Cannula 3.0 Constitutional: Alert, oriented, in no acute distress HEENT: Head is atraumatic and normocephalic. EOMs intact. Sclera anicteric. Face is symmetric. No perioral cyanosis. Mucous membranes moist. Neck: Supple, no appreciable JVD Chest: Palpable pacemaker in left subclavian fossa. Pulmonary: Normal respiratory effort, decreased breath sounds, expiratory wheezing throughout Cardiac: Regular rate and rhythm, normal S1 and S2, no gallops, no rubs, 1-2/6 systolic murmur Extremities: No edema. No clubbing or cyanosis. Pulses intact Abdomen: Normal bowel sounds, soft, non-tender, no abdominal mass palpated Skin: Normal skin color, turgor, and pigmentation, no rash, no skin lesions Neurological: Oriented to person, place, and time Data Laboratory Results: Last 24 Hours Test 10/24/17 10:57 10/24/17 16:09 10/24/17 21:16 10/25/17 08:02 Bedside Glucose 168 mg/dl 129 mg/dl 197 mg/dl Sodium Level 138 mmol/L Potassium Level 4.6 mmol/L Chloride Level 99 mmol/L Carbon Dioxide Level 32 mmol/L Anion Gap 7.0 mmol/L Blood Urea Nitrogen 53 mg/dl Creatinine 0.98 mg/dl Est Creatinine Clear Calc Drug Dose 38.2 ml/min Estimated GFR () 66.3 Estimated GFR (Non- 57.2 BUN/Creatinine Ratio 53.9 Random Glucose 159 mg/dl Calcium Level 9.3 mg/dl Phosphorus Level 4.7 mg/dl Magnesium Level 2.6 mg/dl Chemistry Specimen Hemolysis Test 10/25/17 08:52 CXR 10/22/2017: 1. Cardiomegaly without overt pulmonary edema. 2. Emphysema with chronic interstitial coarsening of the lung bases suggesting scarring. 3. No focal airspace consolidation to suggest pneumonia. EKG: Atrial-sensed ventricular-paced rhythm. Telemetry reviewed: Ventricular paced rhythm. On 10/23/17, she had several episodes of a wide complex tachycardia (with the longest being at least 30 beats ) over a 30 second time period. Last evening, she had a 13 beat run of a wide complex tachycardia with a fusion beat noted, making the rhythm more consistent with a ventricular tachycardia. ICD interrogation: Her monitoring zone was set so that it was picking up most of the ventricular tachycardia, but not all of it as the rate was quite slow. She seems asymptomatic during the arrhythmia and based on heart rate monitoring histograms she has not had a lot of it. I adjusted the ICD to lower the rate for monitoring so we will detect it more consistently, I also lowered the rate for treatment of ventricular tachycardia to 150. This will allow her to continue to have NSVT as long as it is below 150, but will treat above that, but will make it more likely that we will be able to detect it. Assessment & Plan The patient was discussed with Dr. Fernandes who will also be in to see the patient today and also arrange for device interrogation. The plan is outlined by him below. Attending note: The patient was seen, interviewed and examined. The above note was reviewed and edited. VT: Her ICD interrogation demonstrates episodes of ventricular tachycardia, they are infrequent and most are within the last several days, presumably due to her acute illness. The rate is slow and she is asymptomatic. I hesitate to adjust the device to treat them if they are self terminating and well tolerated. On the other hand I don't want her to have more rapid ventricular tachycardia that is left untreated. I therefore made adjustments as noted above. We may not have been detecting all of the episodes due to the settings and I also adjusted the lower detection rate for monitoring.
[2017-10-25] MEDS: METHYLPREDNISOLONE IV 60 MG in SYRINGE 0 ML IV SCH ×2 (13:03→21:30)
--- NOTE | 2017-10-25 15:14 | Progress Note ---
Subjective Date of Service: Oct 25, 2017. Subjective Pt evaluation today including: conversation w/ patient, conversation w/ family , physical exam, chart review, lab review, review of studies, conversation w/ outside solar sales consultant, review of inpatient medication list feeling generalized weakness, wheezing, looks better 2 days ago, Again was having V. tach episode, patient is asymptomatic, Denied chest pain or fever and chill Problem List Medical Problems: (1) Acute asthma exacerbation Status: Acute (2) Acute bronchitis Status: Acute (3) Acute IA Status: Acute (4) Anemia Status: Acute (5) CHF (congestive heart failure) Status: Acute (6) CHF (congestive heart failure) Status: Acute (7) CHF (congestive heart failure) Status: Acute (8) COPD (chronic obstructive pulmonary disease) Status: Acute (9) Elevated troponin Status: Acute (10) Facial contusion Status: Acute (11) Hyponatremia Status: Acute (12) Hypoxia Status: Acute (13) Influenza Status: Acute (14) Intracranial bleeding Status: Acute (15) Intractable nausea and vomiting Status: Acute (16) Mesenteric ischemia Status: Acute (17) Mesenteric ischemia Status: Acute (18) Multiple contusions Status: Acute (19) Nausea Status: Acute (20) Pulmonary edema Status: Acute (21) Pulmonary edema Status: Acute (22) Respiratory distress Status: Acute (23) Respiratory failure Status: Acute (24) SOB (shortness of breath) Status: Acute (25) Syncope Status: Acute Review of Systems Constitutional: + weakness, + fatigue Eyes: No see HPI, No worsening of vision, No eye pain, No redness, No discharge , No diplopia, No problem reported Respiratory: + cough, + sputum, + wheezing, + shortness of breath Cardiac: No see HPI, No chest pain, No orthopnea, No PND, No edema, No claudication, No palpitations, No problem reported Abdomen: No see HPI, No pain, No nausea, No vomiting, No diarrhea, No constipation, No GI bleeding, No problem reported Musculoskeletal: No see HPI, No joint pain, No muscle pain, No swelling, No calf pain, No problem reported Neurologic: No see HPI, No memory loss, No paralysis, No weakness, No numbness/ tingling, No vertigo, No balance problems, No problem reported Psychiatric: No see HPI, No depression symptoms, No anhedonism, No anxiety, No insomnia, No substance abuse, No problem reported Heme: No see HPI, No abnormal bleeding/bruising, No clotting problems, No swollen lymph nodes, No night sweats, No problem reported Endo: No see HPI, No fatigue, No excessive thirst, No excessive urination, No problem reported Skin: No see HPI, No rash, No itch, No new/changing skin lesions, No color change, No bleeding, No problem reported Objective Vital Signs Date Time Temp Pulse Resp B/P (MAP) Pulse Ox O2 Delivery O2 Flow Rate FiO2 10/25/17 12:00 Nasal Cannula 2.0 10/25/17 11:49 36.6 83 18 130/58 (82) 99 10/25/17 11:31 73 24 100 Nasal Cannula 2.0 10/25/17 08:00 100 Nasal Cannula 2.0 10/25/17 07:49 36.6 84 18 143/73 (96) 100 2.0 10/25/17 07:31 73 24 100 Nasal Cannula 2.0 10/25/17 04:00 98 Nasal Cannula 2.5 10/25/17 03:43 36.5 79 20 150/64 (92) 98 Nasal Cannula 2.0 10/25/17 00:00 36.5 84 145/70 (95) 99 Nasal Cannula 3.0 10/25/17 00:00 99 Nasal Cannula 3.0 10/24/17 20:40 37.0 93 19 130/70 (90) 98 Nasal Cannula 2.0 10/24/17 20:00 98 Nasal Cannula 2.0 10/24/17 18:39 88 24 89 Room Air 10/24/17 16:06 84 22 100 Nasal Cannula 3.0 10/24/17 16:00 100 Nasal Cannula 3.0 10/24/17 15:24 36.6 78 20 132/54 (80) 100 Nasal Cannula 3.0 Physical Exam General Appearance: WD/WN, no apparent distress, + cachetic, + thin, + pertinent finding (frail and wheezing) Eyes: normal inspection, PERRL, EOMI, sclerae normal ENT: normal ENT inspection, hearing grossly normal, pharynx normal Neck: supple, no adenopathy, thyroid normal, no JVD, no carotid bruits, trachea midline Respiratory/Chest: chest non-tender, normal breath sounds, no respiratory distress, no accessory muscle use, + decreased breath sounds, + wheezing Cardiovascular: regular rate, rhythm, no edema, no gallop, no JVD, no murmur Abdomen: normal bowel sounds, non tender, soft, no organomegaly, no pulsatile mass Extremities: normal range of motion, non-tender, normal inspection, no pedal edema, no calf tenderness, normal capillary refill, pelvis stable Neurologic/Psychiatric: adolescent specialist II-XII nml as tested, no motor/sensory deficits, alert, normal mood/affect, oriented x 3 Skin: normal color, warm/dry, no rash Lymphatic: no adenopathy Laboratory Results Last 24 Hours Test 10/24/17 16:09 10/24/17 21:16 10/25/17 08:02 10/25/17 10:03 Bedside Glucose 129 mg/dl 197 mg/dl Sodium Level 138 mmol/L Potassium Level 4.6 mmol/L Chloride Level 99 mmol/L Carbon Dioxide Level 32 mmol/L Anion Gap 7.0 mmol/L Blood Urea Nitrogen 53 mg/dl Creatinine 0.98 mg/dl Est Creatinine Clear Calc Drug Dose 38.2 ml/min Estimated GFR () 66.3 Estimated GFR (Non- 57.2 BUN/Creatinine Ratio 53.9 Random Glucose 159 mg/dl Calcium Level 9.3 mg/dl Phosphorus Level 4.7 mg/dl Magnesium Level 2.6 mg/dl Chemistry Specimen Hemolysis White Blood Count 10.15 K/uL Red Blood Count 3.79 M/uL Hemoglobin 11.1 g/dL Hematocrit 34.7 % Mean Corpuscular Volume 91.6 fL Mean Corpuscular Hemoglobin 29.3 pg Mean Corpuscular Hemoglobin Concent 32.0 g/dl RDW Standard Deviation 58.4 fL RDW Coefficient of Variation 17.4 % Platelet Count 221 K/uL Mean Platelet Volume 9.1 fL Test 10/25/17 11:29 Bedside Glucose 181 mg/dl Assessment and Plan 72 y/o female admitted on 10/22 with influenza and influenza caused COPD exacerbation worsening shortness of breath, was found has 2 episodes of nonsustained V. tach Acute on chronic respiratory failure secondary to combined of COPD exacerbation , systolic CHF exacerbation and flu stable and improving 2 episodes of nonsustained V. tach, cardiology seeing patient, watch and no medicine changes for now Show bradycardia , s/p biventricular ICD--resolving Acute on chronic systolic CHF, Elevated troponin--chronic, trop was the same in August, possible demanding ischemic, or possible because of chronic troponin elevation hx of CAD, HTN, HLD, IA, CVA--stable Continue telemetry. , Continue nebulizer treatment and Solu-Medrol decrease from 80 mg to 60 IV q8h Continue Xopenex/Atrovent nebs QIDR, because of Vt episode, Continue home dose Lasix 40 mg PO qd Continue lisinopril, carvedilol -Daily weights, I's & O's cont pulmonary toilet Tamiflu 30 mg PO BID x 5 days, renally dosed. Day 4 of 5 Discussed with patient about a care plan answer all questions, prognosis is guarded GI and DVT prophylaxis is covered Continued [facility] stay due to: multiple IV medications needed Discharge planning: uncertain
[2017-10-25] MEDS: PRAMIPEXOLE DIHYDROCHLORIDE 0.25MG TAB PO SCH (20:51)
[2017-10-25] MEDS: ASPIRIN 81 MG ECTAB PO SCH (20:52)
[2017-10-25] MEDS: ENOXAPARIN 30 MG/0.3 ML SYR SC SCH (20:53)
[2017-10-25] MEDS: ATORVASTATIN 40 MG TAB PO SCH (21:29)
[2017-10-25] MEDS: EZETIMIBE 10MG TAB PO SCH (21:29)
[2017-10-26] VITALS (9 sets, daily range): BP systolic 126–145; BP diastolic 52–95; PULSE 75–88; TEMP 36.4–36.7; O2SAT 95–100
[2017-10-26] MEDS: METHYLPREDNISOLONE IV 60 MG in SYRINGE 0 ML IV SCH ×3 (05:39→22:04)
[2017-10-26] MEDS: IPRATROPIUM BROMIDE NEB SOLN 0.02% 2.5 ML VIAL INH SCH ×4 (07:14→19:13)
[2017-10-26] MEDS: LEVALBUTEROL 1.25MG/0.5ML NEB INH SCH ×4 (07:14→19:13)
[2017-10-26] MEDS: FLUTICASONE/SALMETEROL (ADVAIR) 500/50 INH 14 PUFF INH SCH ×2 (08:47→22:02)
[2017-10-26] MEDS: FUROSEMIDE 40 MG TAB PO SCH (08:47)
[2017-10-26] MEDS: hydrOXYzine HCL 25 MG TAB PO PRN ×2 (08:48→15:32)
[2017-10-26] MEDS: LISINOPRIL 5 MG TAB PO SCH (08:48)
[2017-10-26] MEDS: GUAIFENESIN 600 MG TABCR PO SCH ×2 (08:48→22:03)
[2017-10-26] MEDS: POTASSIUM CHLORIDE 20 MEQ TABCR PO SCH (08:48)
[2017-10-26] MEDS: CARVEDILOL 12.5 MG TAB PO SCH ×2 (08:50→22:02)
[2017-10-26] MEDS: CLOPIDOGREL BISULFATE 75 MG TAB PO SCH (08:50)
[2017-10-26] MEDS: SERTRALINE HCL 50 MG TAB PO SCH (08:51)
[2017-10-26] MEDS: INSULIN ASPART 100 UNITS/ML 3 ML PEN SC SCH ×4 (09:12→22:04)
[2017-10-26] MEDS: OSELTAMIVIR PHOSPHATE SUSP 30 MG/5 ML UDP PO SCH ×2 (09:15→22:03)
--- NOTE | 2017-10-26 09:23 | Hospitalist Progress Note ---
Hospitalist Progress Note Date of Service Oct 26, 2017. Subjective Pt evaluation today including: conversation w/ patient, physical exam, chart review, lab review, review of inpatient medication list Pain: None PO Intake: Tolerating PO diet Voiding: no voiding problems Patient reports not feeling well this morning. She states that she had a good night but this morning was having more shortness of breath. Per nursing, she is very dyspneic on exertion. The patient still complains of a cough and it is still not productive. She still complains of fatigue. The patient denies fevers, chills, sweats, chest pain, palpitations, claudication, wheezing, nausea , vomiting, abdominal pain, dysuria, hematuria, urinary retention, paralysis, weakness, numbness and tingling. Additional Comments: See HPI for pertinent positives and negatives. All other systems reviewed and negative. Objective Vital Signs Date Time Temp Pulse Resp B/P (MAP) Pulse Ox O2 Delivery O2 Flow Rate FiO2 10/26/17 07:59 36.4 82 29 135/95 (108) 95 Nasal Cannula 3.0 10/26/17 07:20 88 20 100 Nasal Cannula 2.5 10/26/17 04:00 Nasal Cannula 3.0 10/26/17 03:58 36.7 81 24 145/68 (93) 100 Nasal Cannula 3.0 10/26/17 00:01 Nasal Cannula 3.0 10/25/17 23:10 36.5 24 136/63 (87) 100 Nasal Cannula 3.0 10/25/17 20:00 Nasal Cannula 3.0 10/25/17 19:40 36.5 97 19 139/85 (103) 100 Nasal Cannula 3.0 10/25/17 19:29 92 20 97 Nasal Cannula 2.0 10/25/17 16:03 36.6 60 22 111/63 (79) 99 Nasal Cannula 2.0 10/25/17 16:00 Nasal Cannula 2.0 10/25/17 15:23 61 20 98 Nasal Cannula 1.0 10/25/17 12:00 Nasal Cannula 2.0 10/25/17 11:49 36.6 83 18 130/58 (82) 99 10/25/17 11:31 73 24 100 Nasal Cannula 2.0 Physical Exam Notes: General appearance: Well-developed, well-nourished, no apparent distress Head: Normocephalic, atraumatic Eyes: Normal inspection, PERRL, EOMI ENT: Normal ENT inspection, hearing grossly normal, pharynx normal Neck: Supple, no JVD, trachea midline Respiratory/Chest: +Decreased breath sounds throughout. Wheezing improved but still poor air movement. No respiratory distress Cardiovascular: Regular rate & rhythm, no gallop, no murmur Abdomen/GI: Normal bowel sounds, non-tender, soft Extremities/Musculoskeletal: Normal inspection, no calf tenderness, no pedal edema Neurological/Psych: Alert, normal mood/affect, oriented x 3 Skin: Normal color, warm/dry, no rash Laboratory Results Last 24 Hours Test 10/25/17 10:03 10/25/17 11:29 10/25/17 16:48 10/25/17 20:41 White Blood Count 10.15 K/uL Red Blood Count 3.79 M/uL Hemoglobin 11.1 g/dL Hematocrit 34.7 % Mean Corpuscular Volume 91.6 fL Mean Corpuscular Hemoglobin 29.3 pg Mean Corpuscular Hemoglobin Concent 32.0 g/dl RDW Standard Deviation 58.4 fL RDW Coefficient of Variation 17.4 % Platelet Count 221 K/uL Mean Platelet Volume 9.1 fL Bedside Glucose 181 mg/dl 156 mg/dl 211 mg/dl Test 10/26/17 06:37 10/26/17 06:57 Magnesium Level 2.6 mg/dl Bedside Glucose 135 mg/dl Assessment and Plan 72 y/o female with a history of CAD, HTN, HLD, ID, CVA, systolic CHF, COPD, DM II, CKD stage II-III, iron deficiency anemia, RLS, anxiety/depression, and GERD who presented to the ED on 10/22 with worsening shortness of breath. Pt arrived to ED afebrile, tachycardic and tachypneic. She had been placed on CPAP en route to ED, switched to BiPAP. CXR without overt pulmonary edema. EKG paced rhythm. ABG shows pH 7.36, pCO2 51. BNP 38438. Troponin elevated at 0.063. Positive for influenza A. Pt received Solu-Medrol 125 mg IV, Lasix 40 mg IV, hour long DuoNeb, magnesium 1 gm IV, and Tamiflu in ED. Acute on chronic respiratory failure secondary to COPD exacerbation vs systolic CHF exacerbation vs flu--ongoing -Admit to telemetry. Pt in paced rhythm overnight, HR in 80s. No runs of v- tach overnight. -O2 by protocol. Currently 95% on 3L NC. -Decrease Solu-Medrol to 60 mg IV q8h -Change DuoNeb to Xopenex/Atrovent nebs QIDR. Hold home Combivent -Continue Advair 500/50 1 puff inh BID -Consult pulmonology, appreciate recs: Increase pulmonary toilet, taper steroids slowly. -Add flutter valve, continue incentive spirometry -ESR, procalcitonin WNL. CRP elevated at 2.98. Blood cultures NGTD -Mobilize as tolerated, OOB to chair Intermittent v-tach--asymptomatic -Lytes WNL -Cardiology consulted, appreciate recs: ICD interrogation shows episodes of v- tach. Settings adjusted to monitor at lower rate, treat rates over 150. Acute on chronic systolic CHF, s/p biventricular ICD--resolving -No overt edema on CXR but with worsening pitting edema and 3-4 lb weight gain, BNP over 20k -Continue home dose Lasix 40 mg PO qd -Continue lisinopril, carvedilol -Daily weights, I's & O's -UO 1500 cc, net balance -830 cc 10/25 -D/C Tyson Influenza A--ongoing -Tamiflu 30 mg PO BID x 5 days, renally dosed. Day 5 of 5, last dose tonight -Droplet precautions Elevated troponin--chronic, trop was the same in August -Troponin trend: 0.063-->0.056-->0.054 -EKG q am and prn chest pain CAD, HTN, HLD, ID, CVA--stable -Continue ASA, Plavix, lisinopril 5 mg PO qd, Coreg 12.5 mg PO BID, Lipitor 80 mg PO hs, Zetia 10 mg PO hs DM II--diet controlled at home -Insulin sliding scale -Check BSGs q ac and qhs -HgbA1c 6.2 on 10/22 CKD stage II-III--stable, at baseline ANJALI--stable, currently off iron RLS -Continue Mirapex 0.25 mg PO hs Anxiety/depression -Continue Zoloft 50 mg PO qd and Vistaril 25 mg PO BID prn anxiety Wound right heel--stepped on glass last night -Consult wound care nurse DVT prophylaxis -Enoxaparin 30 mg SC q24h -[facility]AB[facility] [place] and [place] Code Status -Level I, FULL RESUSCITATION STATUS Dispo -From home, consult case management, PT/OT evaluate and treat -PT recommends return home with family support, may need home PT services Continued [facility] stay due to: multiple IV medications needed
[2017-10-26] MEDS: ATORVASTATIN 40 MG TAB PO SCH (22:02)
[2017-10-26] MEDS: ASPIRIN 81 MG ECTAB PO SCH (22:02)
[2017-10-26] MEDS: PRAMIPEXOLE DIHYDROCHLORIDE 0.25MG TAB PO SCH (22:03)
[2017-10-26] MEDS: EZETIMIBE 10MG TAB PO SCH (22:03)
[2017-10-26] MEDS: ENOXAPARIN 30 MG/0.3 ML SYR SC SCH (22:03)
[2017-10-27] VITALS (12 sets, daily range): BP systolic 123–153; BP diastolic 58–75; PULSE 75–96; TEMP 36.4–36.7; O2SAT 92–100
[2017-10-27] MEDS: hydrOXYzine HCL 25 MG TAB PO PRN ×2 (00:42→11:20)
[2017-10-27] MEDS: METHYLPREDNISOLONE IV 60 MG in SYRINGE 0 ML IV SCH (05:54)
[2017-10-27 06:34] LABS: HEMATOCRIT 34.6 % (37-47); HEMOGLOBIN 11.1 g/dL (12.0-16.0); MEAN CELL VOLUME 91.1 fL (80-100); MEAN CORPUSCULAR HEMOGLOBIN 29.2 pg (25-34); MEAN CORPUSCULAR HGB CONC 32.1 g/dl (32-36); MEAN PLATELET VOLUME 9.3 fL (7.4-10.4); PLATELET COUNT 195 K/uL (130-400); RED CELL DISTRIBUTION WIDTH SD 56.6 fL (36.4-46.3); WHITE BLOOD COUNT 10.53 K/uL (4.8-10.8)
[2017-10-27 06:56] LABS: CALCIUM 8.6 mg/dl (8.5-10.1); CREATININE 0.77 mg/dl (0.60-1.20); POTASSIUM 4.5 mmol/L (3.5-5.1)
[2017-10-27] MEDS: IPRATROPIUM BROMIDE NEB SOLN 0.02% 2.5 ML VIAL INH SCH ×4 (07:31→20:00)
[2017-10-27] MEDS: LEVALBUTEROL 1.25MG/0.5ML NEB INH SCH ×4 (07:31→20:00)
[2017-10-27] MEDS: INSULIN ASPART 100 UNITS/ML 3 ML PEN SC SCH ×4 (07:33→21:13)
[2017-10-27] MEDS: FLUTICASONE/SALMETEROL (ADVAIR) 500/50 INH 14 PUFF INH SCH ×2 (07:34→21:10)
[2017-10-27] MEDS: SERTRALINE HCL 50 MG TAB PO SCH (07:34)
[2017-10-27] MEDS: GUAIFENESIN 600 MG TABCR PO SCH ×2 (07:35→21:37)
[2017-10-27] MEDS: CARVEDILOL 12.5 MG TAB PO SCH ×2 (07:35→21:37)
[2017-10-27] MEDS: CLOPIDOGREL BISULFATE 75 MG TAB PO SCH (07:35)
[2017-10-27] MEDS: FUROSEMIDE 40 MG TAB PO SCH (07:35)
[2017-10-27] MEDS: POTASSIUM CHLORIDE 20 MEQ TABCR PO SCH (07:36)
[2017-10-27] MEDS: LISINOPRIL 5 MG TAB PO SCH (07:36)
[2017-10-27] MEDS: METHYLPREDNISOLONE IV 40 MG in SYRINGE 0 ML IV SCH ×2 (12:15→21:38)
--- NOTE | 2017-10-27 17:04 | Progress Note ---
Subjective Date of Service: Oct 27, 2017. Subjective Pt evaluation today including: conversation w/ patient, conversation w/ family , physical exam, chart review, lab review, review of studies, conversation w/ tanning consultant, review of inpatient medication list Out of bed to the chair, oxygen level is stable, in 2-3 LPM now is that was 98 100% However she complained not feeling better, still have a lot wheezing Denied chest pain Cough is better Problem List Medical Problems: (1) Acute asthma exacerbation Status: Acute (2) Acute bronchitis Status: Acute (3) Acute NV Status: Acute (4) Anemia Status: Acute (5) CHF (congestive heart failure) Status: Acute (6) CHF (congestive heart failure) Status: Acute (7) CHF (congestive heart failure) Status: Acute (8) COPD (chronic obstructive pulmonary disease) Status: Acute (9) Elevated troponin Status: Acute (10) Facial contusion Status: Acute (11) Hyponatremia Status: Acute (12) Hypoxia Status: Acute (13) Influenza Status: Acute (14) Intracranial bleeding Status: Acute (15) Intractable nausea and vomiting Status: Acute (16) Mesenteric ischemia Status: Acute (17) Mesenteric ischemia Status: Acute (18) Multiple contusions Status: Acute (19) Nausea Status: Acute (20) Pulmonary edema Status: Acute (21) Pulmonary edema Status: Acute (22) Respiratory distress Status: Acute (23) Respiratory failure Status: Acute (24) SOB (shortness of breath) Status: Acute (25) Syncope Status: Acute Review of Systems Constitutional: + weakness, + fatigue Eyes: No worsening of vision, No eye pain, No redness, No discharge, No diplopia ENT: No hearing loss, No unusual epistaxis, No nasal symptoms, No sore throat, No tinnitus, No dental problems, No trouble swallowing Respiratory: + cough, + sputum, + wheezing, + shortness of breath, + dyspnea on exertion, No dyspnea at rest, No hemoptysis Cardiac: No chest pain, No orthopnea, No PND, No edema, No claudication, No palpitations Abdomen: No pain, No nausea, No vomiting, No diarrhea, No constipation Musculoskeletal: No joint pain, No muscle pain, No swelling, No calf pain Female : No dysuria, No urinary frequency, No hematuria, No incontinence, No abnormal vaginal bleeding, No vaginal discharge Neurologic: No memory loss, No paralysis, No weakness, No numbness/tingling, No vertigo, No balance problems Psychiatric: No depression symptoms, No anhedonism, No anxiety, No insomnia, No substance abuse Heme: No abnormal bleeding/bruising, No clotting problems, No swollen lymph nodes, No night sweats Endo: No fatigue, No excessive thirst, No excessive urination Skin: No rash, No itch, No new/changing skin lesions, No color change, No bleeding Objective Vital Signs Date Time Temp Pulse Resp B/P (MAP) Pulse Ox O2 Delivery O2 Flow Rate FiO2 10/27/17 16:00 36.5 76 20 98 2.0 10/27/17 14:51 76 20 98 Nasal Cannula 2.0 10/27/17 12:00 Nasal Cannula 3.0 10/27/17 11:55 36.5 75 20 146/58 (87) 100 Nasal Cannula 3.0 10/27/17 11:48 96 26 98 Nasal Cannula 2.0 10/27/17 08:00 Nasal Cannula 2.0 10/27/17 07:45 36.6 85 28 146/75 (98) 99 Nasal Cannula 2.0 10/27/17 07:31 77 26 98 Nasal Cannula 2.0 10/27/17 04:00 Nasal Cannula 2.0 10/27/17 03:19 36.6 79 19 123/74 (90) 92 Nasal Cannula 10/27/17 00:02 Nasal Cannula 2.0 10/27/17 00:00 36.4 78 18 153/72 (99) 98 Nasal Cannula 2.0 10/26/17 20:02 36.4 81 18 131/55 (80) 96 Nasal Cannula 2.0 10/26/17 20:00 Nasal Cannula 2.0 10/26/17 19:13 80 20 98 Nasal Cannula 2.0 Physical Exam General Appearance: WD/WN, no apparent distress, + cachetic, + thin, + pertinent finding (frail) Eyes: normal inspection, PERRL, EOMI, sclerae normal ENT: normal ENT inspection, hearing grossly normal, pharynx normal Neck: supple, no adenopathy, thyroid normal, no JVD, no carotid bruits, trachea midline Respiratory/Chest: chest non-tender, no accessory muscle use, + decreased breath sounds, + wheezing (occasional) Cardiovascular: regular rate, rhythm, no edema, no gallop, no JVD, no murmur Abdomen: normal bowel sounds, non tender, soft, no organomegaly, no pulsatile mass Extremities: normal range of motion, non-tender, normal inspection, no pedal edema, no calf tenderness, normal capillary refill, pelvis stable Neurologic/Psychiatric: executive associate II-XII nml as tested, no motor/sensory deficits, alert, normal mood/affect, oriented x 3 Skin: normal color, warm/dry, no rash Lymphatic: no adenopathy Laboratory Results Last 24 Hours Test 10/26/17 19:56 10/27/17 05:58 10/27/17 11:27 Bedside Glucose 180 mg/dl 272 mg/dl White Blood Count 10.53 K/uL Red Blood Count 3.80 M/uL Hemoglobin 11.1 g/dL Hematocrit 34.6 % Mean Corpuscular Volume 91.1 fL Mean Corpuscular Hemoglobin 29.2 pg Mean Corpuscular Hemoglobin Concent 32.1 g/dl RDW Standard Deviation 56.6 fL RDW Coefficient of Variation 17.0 % Platelet Count 195 K/uL Mean Platelet Volume 9.3 fL Sodium Level 138 mmol/L Potassium Level 4.5 mmol/L Chloride Level 99 mmol/L Carbon Dioxide Level 34 mmol/L Anion Gap 5.0 mmol/L Blood Urea Nitrogen 47 mg/dl Creatinine 0.77 mg/dl Est Creatinine Clear Calc Drug Dose 48.6 ml/min Estimated GFR () 88.8 Estimated GFR (Non- 76.6 BUN/Creatinine Ratio 60.7 Random Glucose 138 mg/dl Calcium Level 8.6 mg/dl Magnesium Level 2.4 mg/dl Assessment and Plan 72 y/o female admitted on 10/22 with influenza and influenza caused COPD exacerbation worsening shortness of breath, was found has 2 episodes of nonsustained V. tach Acute on chronic respiratory failure secondary to combined of COPD exacerbation , systolic CHF exacerbation and flu stable and improving 2 episodes of nonsustained V. tach, body piercer seeing patient, watch and no medicine changes , no episodes for 2 days Show bradycardia , s/p biventricular ICD--resolving Acute on chronic systolic CHF, Elevated troponin--chronic, trop was the same in August, possible demanding ischemic, or possible because of chronic troponin elevation hx of CAD, HTN, HLD, NV, CVA--stable Continue telemetry. , Continue nebulizer treatment and Solu-Medrol decrease from 80 mg to 60 to 40 IV q8h Continue Xopenex/Atrovent nebs QIDR, because of Vt episode, Continue home dose Lasix 40 mg PO qd Continue lisinopril, carvedilol -Daily weights, I's & O's cont pulmonary toilet Tamiflu 30 mg PO BID x 5 days, renally dosed. Day 5of 5 Discussed with patient about a care plan answer all questions, prognosis is guarded GI and DVT prophylaxis is covered Transfer to med surg today, PT OT feel patient may be okay to go home, but her general condition looks so weak, may need pt/ot reevaluation upon discharge, possible ready to discharge in 1-2 days Continued [facility] stay due to: multiple IV medications needed Discharge planning: home with home health (?), uncertain
[2017-10-27] MEDS: ATORVASTATIN 40 MG TAB PO SCH (21:37)
[2017-10-27] MEDS: PRAMIPEXOLE DIHYDROCHLORIDE 0.25MG TAB PO SCH (21:37)
[2017-10-27] MEDS: EZETIMIBE 10MG TAB PO SCH (21:37)
[2017-10-27] MEDS: ASPIRIN 81 MG ECTAB PO SCH (21:37)
[2017-10-27] MEDS: ENOXAPARIN 30 MG/0.3 ML SYR SC SCH (21:38)
[2017-10-28] VITALS (12 sets, daily range): BP systolic 132–145; BP diastolic 60–81; PULSE 85–101; TEMP 36.7–37.1; O2SAT 83–99
[2017-10-28] MEDS: hydrOXYzine HCL 25 MG TAB PO PRN (00:14)
[2017-10-28] MEDS ORDERED: IPRATROPIUM BROMIDE NEB SOLN 0.02% 2.5 ML VIAL INH STA (02:15)
[2017-10-28] MEDS ORDERED: LEVALBUTEROL 1.25MG/3ML NEB INH STA (02:19)
--- NOTE | 2017-10-28 05:18 | Progress Note ---
Progress Note Date of Service Oct 28, 2017. Progress Note acute hypoxic episode overnight, abrupt expiratory wheezing and coarse breath sounds throughout, poor air movement CXR unremarkable except for emphysemic changes, cardiomegaly; no pulmonary effusions or overt edema appreciated Xopenex and Atrovent ordered, mg 2.4 with poor renal function; defer additional mg
[2017-10-28] MEDS: METHYLPREDNISOLONE IV 40 MG in SYRINGE 0 ML IV SCH ×3 (05:43→20:37)
[2017-10-28] MEDS: CLOPIDOGREL BISULFATE 75 MG TAB PO SCH (07:10)
[2017-10-28] MEDS: POTASSIUM CHLORIDE 20 MEQ TABCR PO SCH (07:10)
[2017-10-28] MEDS: LISINOPRIL 5 MG TAB PO SCH ×2 (07:10→09:00)
[2017-10-28] MEDS: CARVEDILOL 12.5 MG TAB PO SCH ×2 (07:10→20:38)
[2017-10-28] MEDS: GUAIFENESIN 600 MG TABCR PO SCH ×2 (07:11→20:37)
[2017-10-28] MEDS: FLUTICASONE/SALMETEROL (ADVAIR) 500/50 INH 14 PUFF INH SCH ×2 (07:11→20:37)
[2017-10-28] MEDS: SERTRALINE HCL 50 MG TAB PO SCH (07:11)
[2017-10-28] MEDS: FUROSEMIDE 40 MG TAB PO SCH ×2 (07:11→09:15)
[2017-10-28] MEDS: IPRATROPIUM BROMIDE NEB SOLN 0.02% 2.5 ML VIAL INH SCH ×4 (07:25→20:15)
[2017-10-28] MEDS: LEVALBUTEROL 1.25MG/0.5ML NEB INH SCH ×4 (07:25→20:15)
--- NOTE | 2017-10-28 07:28 | DIAGNOSTIC IMAGING REPORT ---
SINGLE VIEW CHEST CLINICAL HISTORY: Hypoxia. FINDINGS: An AP, portable, upright chest radiograph is compared to study dated 10/22/2017 and correlated with chest CT dated 03/12/2017. The examination is degraded by portable technique, apical lordotic positioning, and patient rotation. A 3-lead cardiac AICD is unchanged in position and partially obscures the left mid chest. The heart is markedly enlarged and there is atherosclerotic calcification of the thoracic aorta. The pulmonary vasculature is noncongested. Emphysema and chronic interstitial thickening are similar to previous. There is patchy airspace consolidation at the right lung base no large pleural effusion or pneumothorax is seen. The skeletal structures are osteopenic. The bony thorax is grossly intact. IMPRESSION: 1. Cardiomegaly and AICD. There is no radiographic evidence of congestive failure. 2. Advanced emphysema. 3. Patchy airspace consolidation is seen at the right lung base. Correlate clinically for evidence of pneumonia/aspiration pneumonitis. Radiographic follow-up to resolution is recommended. Electronically signed by: Antonio Astorga M.D. 10/28/2017 7:26 AM Dictated Date/Time: 10/28/2017 7:25 AM
[2017-10-28] MEDS ORDERED: LORAZEPAM INJ 0.5 MG in SYRINGE 0.25 ML IV STA (08:02)
[2017-10-28] MEDS ORDERED: MoRPHine SULFATE 2 MG/ML CARP IV STA (08:02)
[2017-10-28] MEDS ORDERED: LEVAQUIN 750MG / 150ML D5W IV ONE (08:15)
[2017-10-28] MEDS ORDERED: LEVOFLOXACIN 750MG / D5W IV ONE (08:30)
[2017-10-28] MEDS: INSULIN ASPART 100 UNITS/ML 3 ML PEN SC SCH ×4 (08:56→20:41)
[2017-10-28 09:02] LABS: BASO % 0.2 %; BASO ABS # 0.03 K/uL (0-0.2); HEMATOCRIT 37.9 % (37-47); HEMOGLOBIN 11.9 g/dL (12.0-16.0); IG# 0.05 K/uL (0.00-0.02); LYMPH % 4.4 %; LYMPH ABS # 0.61 K/uL (1.2-3.4); MEAN CELL VOLUME 92.2 fL (80-100); MEAN CORPUSCULAR HGB CONC 31.4 g/dl (32-36); MEAN PLATELET VOLUME 9.4 fL (7.4-10.4); MONO % 3.4 %; MONO ABS # 0.47 K/uL (0.11-0.59); NEUT % 91.6 %; NEUT ABS # 12.83 K/uL (1.4-6.5); PLATELET COUNT 228 K/uL (130-400); RED CELL DISTRIBUTION WIDTH SD 57.3 fL (36.4-46.3); WHITE BLOOD COUNT 13.99 K/uL (4.8-10.8)
[2017-10-28 09:29] LABS: CALCIUM 8.9 mg/dl (8.5-10.1); CREATININE 0.93 mg/dl (0.60-1.20)
--- NOTE | 2017-10-28 13:18 | Pulmonology Progress Note ---
Pulmonary Progress Note Date of Service Oct 28, 2017. Attending Dr. Tiwari Subjective Patient seen and examined at bedside. Continues with easy breathlessness. Also with persistent cough with yellow sputum consistent with home sputum production and color. No chest pain or tightness. Mild back pain. Continues with arthralgias and myalgias. No fever or chills. No sweats. Hands cold. Nursing reports difficulty in obtaining pulse oximetry. At the time of my exam SaO2 was 91% Former heavy smoker. Now just "sneaks" one occasionally. No other acute complaints or new problems. Objective Vital Signs - as noted below Laboratory Data - as noted below Physical Exam: General - NAD but obvious CHOWDHURY from BR to bed Eyes - No icterus, gaze conjugate ENT - Mucosa moist, no lesions. Thrush on tongue Neck - Supple, No JVD Lungs - No bronchospasm, rales, or rhonchi. But severely diminished breath sounds globally Heart - Regular, rate controlled Abdomen - Soft, NT, ND, BS present Extremities - No edema, pedal pulses intact Neuro - A&OX3 Assessment & Plan INFLUENZA A * Completed 5 days of Tamiflu * Some improvement in symptoms * Continue supportive care * Discussed with infectious disease. Completed treatment of Tamiflu * Initial onset of symptoms greater than 6 days ago COPD EXACERBATION * Continues to be an occasional smoker * Continue with neb treatments * Continue incentive spirometry * Add flutter valve * OOB to chair as tolerated throughout the day * Ambulate as tolerated QUESTION OF INFILTRATE VS ATELECTASIS ON CXR * Patient continues with CHOWDHURY and some SOB at rest * Completed treatment for influenza A * CXR with questionable opacity * Check Procalcitonin with am labs tomorrow * Check repeat CXR tomorrow * Continue aggressive pulmonary toilet and aggressive incentive spirometry to correct atelectasis ORAL CANDIDIASIS * New finding today * Start Nystatin suspension QID swish and swallow * Follow DVT PROPHYLAXIS * Enoxaparin * Continue Clopidogrel Thank you for including us in the care of this patient. We will continue to follow along with you. Data Medications: Current Inpatient Medications Medications (Trade) Dose Ordered Sig/Osmani Route Start Time Stop Time Status Last Admin Dose Admin Enoxaparin Sodium (Lovenox Inj) 30 mg QPM SC 10/22/17 21:00 11/21/17 20:59 10/27/17 21:38 30 MG Acetaminophen (Tylenol Tab) 650 mg Q4H PRN PO 10/22/17 09:15 11/21/17 09:14 Al Hydrox/Mg Hydrox/Simethicone (Maalox Max Susp) 15 ml Q4H PRN PO 10/22/17 09:15 11/21/17 09:14 Magnesium Hydroxide (Milk Of Magnesia Susp) 30 ml Q12H PRN PO 10/22/17 09:15 11/21/17 09:14 Ondansetron HCl (Zofran Inj) 4 mg Q6H PRN IV 10/22/17 09:15 11/21/17 09:14 Polyethylene (Miralax Powder Packet) 17 gm DAILY PRN PO 10/22/17 09:15 11/21/17 09:14 Aspirin (Ecotrin Tab) 81 mg QPM PO 10/22/17 21:00 11/21/17 20:59 10/27/17 21:37 81 MG Atorvastatin Calcium (Lipitor Tab) 80 mg HS PO 10/22/17 21:00 11/21/17 20:59 10/27/17 21:37 80 MG Carvedilol (Coreg Tab) 12.5 mg BID PO 10/22/17 21:00 11/21/17 20:59 10/28/17 07:10 12.5 MG Clopidogrel Bisulfate (plAVix TAB) 75 mg QAM PO 10/23/17 09:00 11/22/17 08:59 10/28/17 07:10 75 MG EZETIMIBE (Zetia Tab) 10 mg HS PO 10/22/17 21:00 11/21/17 20:59 10/27/17 21:37 10 MG Salmeterol Xinafoate/ Fluticasone (Advair Diskus 500/50 Inh) 1 puff BID INH 10/22/17 21:00 11/21/17 20:59 10/28/17 07:11 1 PUFF Furosemide (Lasix Tab) 40 mg DAILY PO 10/23/17 09:00 11/22/17 08:59 Future hold 10/28/17 07:11 40 MG Hydroxyzine HCl (Vistaril Tab) 25 mg BID PRN PO 10/22/17 09:15 11/21/17 09:14 10/28/17 00:14 25 MG Lisinopril (Zestril Tab) 5 mg QAM PO 10/23/17 09:00 11/22/17 08:59 10/28/17 07:10 5 MG Pramipexole Dihydrochloride (miraPEX TAB) 0.25 mg HS PO 10/22/17 21:00 11/21/17 20:59 10/27/17 21:37 0.25 MG Sertraline HCl (Zoloft Tab) 50 mg QAM PO 10/23/17 09:00 11/22/17 08:59 10/28/17 07:11 50 MG Insulin Aspart (novoLOG ASPART) SLIDING SCALE If C... ACHS SC 10/22/17 16:15 11/21/17 16:14 10/28/17 08:56 3 UNITS Glucose (Glucose 40% Gel) 15-30 GRAMS 15 GRAMS... UD PRN PO 10/22/17 10:00 11/21/17 09:59 Glucose (Glucose Chew Tab) 4-8 Tablets 4 Tabl... UD PRN PO 10/22/17 10:00 11/21/17 09:59 Dextrose (Dextrose 50% 50ML Syringe) 25-50ML OF 50% DW IV FOR... UD PRN IV 10/22/17 10:00 11/21/17 09:59 Glucagon (Glucagon Inj) 1 mg UD PRN SQ 10/22/17 10:00 11/21/17 09:59 Potassium Chloride (Klor-Con Tab) 20 meq QAM PO 10/23/17 09:00 11/22/17 08:59 10/28/17 07:10 20 MEQ Guaifenesin (Mucinex Contr Rel Tab) 600 mg Q12 PO 10/23/17 21:00 11/22/17 20:59 10/28/17 07:11 600 MG Ipratropium [place] (Atrovent 0.02% 0.5MG/2.5ML Neb) 0.5 mg QIDR INH 10/24/17 12:00 11/23/17 11:59 10/28/17 11:41 0.5 MG Levalbuterol (Xopenex 1.25MG/ 0.5ML Neb) 1.25 mg QIDR INH 10/24/17 12:00 11/23/17 11:59 10/28/17 11:41 1.25 MG Methylprednisolone Sodium Succinate 40 mg/Syringe 0.64 ml @ 1.5 mls/min Q8 IV 10/27/17 14:00 11/26/17 13:59 10/28/17 05:43 1.5 MLS/MIN Lorazepam 0.5 mg/ Syringe 1 ml @ 0.5 mls/min Q6 PRN IV 10/28/17 12:30 11/27/17 12:29 Vital Signs: Date Time Temp Pulse Resp B/P (MAP) Pulse Ox O2 Delivery O2 Flow Rate FiO2 10/28/17 11:41 90 28 98 Nasal Cannula 3.0 10/28/17 07:25 88 28 97 Nasal Cannula 3.0 10/28/17 07:15 83 Room Air 3.0 10/28/17 07:14 36.7 94 16 142/81 (101) 99 Room Air 10/28/17 03:10 36.9 91 20 132/77 (95) 96 Nasal Cannula 3.0 10/28/17 02:29 92 24 96 Nasal Cannula 3.0 10/28/17 02:19 96 Nasal Cannula 3.0 10/28/17 02:15 3.0 10/28/17 00:00 Nasal Cannula 2.0 10/27/17 23:34 36.7 84 16 135/68 (90) 95 Room Air 10/27/17 21:32 82 20 96 Nasal Cannula 2.0 10/27/17 21:18 84 123/67 (85) 10/27/17 16:00 36.5 76 20 98 2.0 10/27/17 15:40 98 Nasal Cannula 2.0 10/27/17 14:51 76 20 98 Nasal Cannula 2.0 Laboratory Results: Last 24 Hours Test 10/27/17 17:10 10/27/17 20:25 10/28/17 08:05 10/28/17 08:46 Bedside Glucose 194 mg/dl 271 mg/dl 233 mg/dl White Blood Count 13.99 K/uL Red Blood Count 4.11 M/uL Hemoglobin 11.9 g/dL Hematocrit 37.9 % Mean Corpuscular Volume 92.2 fL Mean Corpuscular Hemoglobin 29.0 pg Mean Corpuscular Hemoglobin Concent 31.4 g/dl Platelet Count 228 K/uL Mean Platelet Volume 9.4 fL Neutrophils (%) (Auto) 91.6 % Lymphocytes (%) (Auto) 4.4 % Monocytes (%) (Auto) 3.4 % Eosinophils (%) (Auto) 0.0 % Basophils (%) (Auto) 0.2 % Neutrophils # (Auto) 12.83 K/uL Lymphocytes # (Auto) 0.61 K/uL Monocytes # (Auto) 0.47 K/uL Eosinophils # (Auto) 0.00 K/uL Basophils # (Auto) 0.03 K/uL RDW Standard Deviation 57.3 fL RDW Coefficient of Variation 17.0 % Immature Granulocyte % (Auto) 0.4 % Immature Granulocyte # (Auto) 0.05 K/uL Arterial Blood pH 7.38 Arterial Blood Partial Pressure CO2 58 mmHg Arterial Blood Partial Pressure O2 89 mm/Hg Arterial Blood HCO3 34 mmol/L Arterial Blood Oxygen Saturation 96.3 % Arterial Blood Base Excess 7.2 mEq/L Arterial Blood Gas Delivery 4L [place]ba Test POS Sodium Level 139 mmol/L Potassium Level 5.0 mmol/L Chloride Level 99 mmol/L Carbon Dioxide Level 34 mmol/L Anion Gap 6.0 mmol/L Blood Urea Nitrogen 48 mg/dl Creatinine 0.93 mg/dl Est Creatinine Clear Calc Drug Dose 40.2 ml/min Estimated GFR () 70.7 Estimated GFR (Non- 61.0 BUN/Creatinine Ratio 51.2 Random Glucose 185 mg/dl Calcium Level 8.9 mg/dl Magnesium Level 2.6 mg/dl
--- NOTE | 2017-10-28 16:41 | Progress Note ---
Subjective Date of Service: Oct 28, 2017. Subjective Pt evaluation today including: conversation w/ patient, physical exam, lab review, review of studies, review of inpatient medication list Pain: no pain PO Intake: adequate Voiding: no voiding problems called to the room this AM due to respiratory distress saturations okay on 5L, wears 3L at baseline patient had found out that had been admitted for difficulty breathing, RN reported that she seemed to get worked up after finding out reviewed CXR and labs, now with leukocytosis, CXR with right lower lobe infiltrate cough more productive gave Ativan 0.5mg IV x 1 with good response, able to get some sleep in the afternoon started on Levaquin due to CXR findings, recent flu Problem List Medical Problems: (1) Acute asthma exacerbation Status: Acute (2) Acute bronchitis Status: Acute (3) Acute GA Status: Acute (4) Anemia Status: Acute (5) CHF (congestive heart failure) Status: Acute (6) CHF (congestive heart failure) Status: Acute (7) CHF (congestive heart failure) Status: Acute (8) COPD (chronic obstructive pulmonary disease) Status: Acute (9) Elevated troponin Status: Acute (10) Facial contusion Status: Acute (11) Hyponatremia Status: Acute (12) Hypoxia Status: Acute (13) Influenza Status: Acute (14) Intracranial bleeding Status: Acute (15) Intractable nausea and vomiting Status: Acute (16) Mesenteric ischemia Status: Acute (17) Mesenteric ischemia Status: Acute (18) Multiple contusions Status: Acute (19) Nausea Status: Acute (20) Pulmonary edema Status: Acute (21) Pulmonary edema Status: Acute (22) Respiratory distress Status: Acute (23) Respiratory failure Status: Acute (24) SOB (shortness of breath) Status: Acute (25) Syncope Status: Acute Review of Systems Constitutional: + chills, + weakness, + fatigue Respiratory: + cough, + sputum, + shortness of breath, + dyspnea on exertion Psychiatric: + anxiety, + insomnia All Other Systems: Reviewed and Negative Medications Current Inpatient Medications Medications (Trade) Dose Ordered Sig/Osmani Route Start Time Stop Time Status Last Admin Dose Admin Enoxaparin Sodium (Lovenox Inj) 30 mg QPM SC 10/22/17 21:00 11/21/17 20:59 10/27/17 21:38 30 MG Acetaminophen (Tylenol Tab) 650 mg Q4H PRN PO 10/22/17 09:15 11/21/17 09:14 Al Hydrox/Mg Hydrox/Simethicone (Maalox Max Susp) 15 ml Q4H PRN PO 10/22/17 09:15 11/21/17 09:14 Magnesium Hydroxide (Milk Of Magnesia Susp) 30 ml Q12H PRN PO 10/22/17 09:15 11/21/17 09:14 Ondansetron HCl (Zofran Inj) 4 mg Q6H PRN IV 10/22/17 09:15 11/21/17 09:14 Polyethylene (Miralax Powder Packet) 17 gm DAILY PRN PO 10/22/17 09:15 11/21/17 09:14 Aspirin (Ecotrin Tab) 81 mg QPM PO 10/22/17 21:00 11/21/17 20:59 10/27/17 21:37 81 MG Atorvastatin Calcium (Lipitor Tab) 80 mg HS PO 10/22/17 21:00 11/21/17 20:59 10/27/17 21:37 80 MG Carvedilol (Coreg Tab) 12.5 mg BID PO 10/22/17 21:00 11/21/17 20:59 10/28/17 07:10 12.5 MG Clopidogrel Bisulfate (plAVix TAB) 75 mg QAM PO 10/23/17 09:00 11/22/17 08:59 10/28/17 07:10 75 MG EZETIMIBE (Zetia Tab) 10 mg HS PO 10/22/17 21:00 11/21/17 20:59 10/27/17 21:37 10 MG Salmeterol Xinafoate/ Fluticasone (Advair Diskus 500/50 Inh) 1 puff BID INH 10/22/17 21:00 11/21/17 20:59 10/28/17 07:11 1 PUFF Furosemide (Lasix Tab) 40 mg DAILY PO 10/23/17 09:00 11/22/17 08:59 Future hold 10/27/17 07:35 40 MG Hydroxyzine HCl (Vistaril Tab) 25 mg BID PRN PO 10/22/17 09:15 11/21/17 09:14 10/28/17 00:14 25 MG Lisinopril (Zestril Tab) 5 mg QAM PO 10/23/17 09:00 11/22/17 08:59 10/27/17 07:36 5 MG Pramipexole Dihydrochloride (miraPEX TAB) 0.25 mg HS PO 10/22/17 21:00 11/21/17 20:59 10/27/17 21:37 0.25 MG Sertraline HCl (Zoloft Tab) 50 mg QAM PO 10/23/17 09:00 11/22/17 08:59 10/28/17 07:11 50 MG Insulin Aspart (novoLOG ASPART) SLIDING SCALE If C... ACHS SC 10/22/17 16:15 11/21/17 16:14 10/28/17 13:22 1 UNITS Glucose (Glucose 40% Gel) 15-30 GRAMS 15 GRAMS... UD PRN PO 10/22/17 10:00 11/21/17 09:59 Glucose (Glucose Chew Tab) 4-8 Tablets 4 Tabl... UD PRN PO 10/22/17 10:00 11/21/17 09:59 Dextrose (Dextrose 50% 50ML Syringe) 25-50ML OF 50% DW IV FOR... UD PRN IV 10/22/17 10:00 11/21/17 09:59 Glucagon (Glucagon Inj) 1 mg UD PRN SQ 10/22/17 10:00 11/21/17 09:59 Potassium Chloride (Klor-Con Tab) 20 meq QAM PO 10/23/17 09:00 11/22/17 08:59 10/28/17 07:10 20 MEQ Guaifenesin (Mucinex Contr Rel Tab) 600 mg Q12 PO 10/23/17 21:00 11/22/17 20:59 10/28/17 07:11 600 [address] Ipratropium [facility] (Atrovent 0.02% 0.5MG/2.5ML Neb) 0.5 mg QIDR INH 10/24/17 12:00 11/23/17 11:59 10/28/17 15:00 0.5 MG Levalbuterol (Xopenex 1.25MG/ 0.5ML Neb) 1.25 mg QIDR INH 10/24/17 12:00 11/23/17 11:59 10/28/17 15:00 1.25 MG Methylprednisolone Sodium Succinate 40 mg/Syringe 0.64 ml @ 1.5 mls/min Q8 IV 10/27/17 14:00 11/26/17 13:59 10/28/17 13:24 1.5 MLS/MIN Lorazepam 0.5 mg/ Syringe 1 ml @ 0.5 mls/min Q6 PRN IV 10/28/17 12:30 11/27/17 12:29 Nystatin (Mycostatin Susp) 5 ml QID PO 10/28/17 17:00 11/07/17 16:59 Objective Vital Signs Date Time Temp Pulse Resp B/P (MAP) Pulse Ox O2 Delivery O2 Flow Rate FiO2 10/28/17 15:21 36.9 101 18 145/60 (88) 99 Nasal Cannula 3.0 10/28/17 15:01 101 28 99 Nasal Cannula 3.0 10/28/17 11:41 90 28 98 Nasal Cannula 3.0 10/28/17 07:25 88 28 97 Nasal Cannula 3.0 10/28/17 07:15 83 Room Air 3.0 10/28/17 07:14 36.7 94 16 142/81 (101) 99 Room Air 10/28/17 03:10 36.9 91 20 132/77 (95) 96 Nasal Cannula 3.0 10/28/17 02:29 92 24 96 Nasal Cannula 3.0 10/28/17 02:19 96 Nasal Cannula 3.0 10/28/17 02:15 3.0 10/28/17 00:00 Nasal Cannula 2.0 10/27/17 23:34 36.7 84 16 135/68 (90) 95 Room Air 10/27/17 21:32 82 20 96 Nasal Cannula 2.0 10/27/17 21:18 84 123/67 (85) Physical Exam General Appearance: + mild distress (this AM, resolved in the afternoon), + thin Eyes: normal inspection, EOMI, sclerae normal ENT: normal ENT inspection, hearing grossly normal, pharynx normal Neck: supple, no adenopathy, no JVD, trachea midline Respiratory/Chest: chest non-tender, no respiratory distress, no accessory muscle use, + decreased breath sounds, + rhonchi, + wheezing Cardiovascular: no edema, no gallop, no JVD, no murmur, + tachycardia Abdomen: normal bowel sounds, non tender, soft, no organomegaly Extremities: normal range of motion, non-tender, normal inspection, no pedal edema, no calf tenderness Neurologic/Psychiatric: administrative support 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 II-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 nml as tested, alert, oriented x 3, + motor weakness, + pertinent finding (anxious) Skin: normal color, warm/dry, no rash Laboratory Results Last 24 Hours Test 10/27/17 17:10 10/27/17 20:25 10/28/17 08:05 10/28/17 08:46 Bedside Glucose 194 mg/dl 271 mg/dl 233 mg/dl White Blood Count 13.99 K/uL Red Blood Count 4.11 M/uL Hemoglobin 11.9 g/dL Hematocrit 37.9 % Mean Corpuscular Volume 92.2 fL Mean Corpuscular Hemoglobin 29.0 pg Mean Corpuscular Hemoglobin Concent 31.4 g/dl Platelet Count 228 K/uL Mean Platelet Volume 9.4 fL Neutrophils (%) (Auto) 91.6 % Lymphocytes (%) (Auto) 4.4 % Monocytes (%) (Auto) 3.4 % Eosinophils (%) (Auto) 0.0 % Basophils (%) (Auto) 0.2 % Neutrophils # (Auto) 12.83 K/uL Lymphocytes # (Auto) 0.61 K/uL Monocytes # (Auto) 0.47 K/uL Eosinophils # (Auto) 0.00 K/uL Basophils # (Auto) 0.03 K/uL RDW Standard Deviation 57.3 fL RDW Coefficient of Variation 17.0 % Immature Granulocyte % (Auto) 0.4 % Immature Granulocyte # (Auto) 0.05 K/uL Arterial Blood pH 7.38 Arterial Blood Partial Pressure CO2 58 mmHg Arterial Blood Partial Pressure O2 89 mm/Hg Arterial Blood HCO3 34 mmol/L Arterial Blood Oxygen Saturation 96.3 % Arterial Blood Base Excess 7.2 mEq/L Arterial Blood Gas Delivery 4L Simba Test POS Sodium Level 139 mmol/L Potassium Level 5.0 mmol/L Chloride Level 99 mmol/L Carbon Dioxide Level 34 mmol/L Anion Gap 6.0 mmol/L Blood Urea Nitrogen 48 mg/dl Creatinine 0.93 mg/dl Est Creatinine Clear Calc Drug Dose 40.2 ml/min Estimated GFR () 70.7 Estimated GFR (Non- 61.0 BUN/Creatinine Ratio 51.2 Random Glucose 185 mg/dl Calcium Level 8.9 mg/dl Magnesium Level 2.6 mg/dl Test 10/28/17 12:08 Bedside Glucose 118 mg/dl Assessment and Plan 72 y/o female admitted on 10/22 with influenza and influenza caused COPD exacerbation worsening shortness of breath, was found has 2 episodes of nonsustained V. tach Acute on chronic respiratory failure secondary to combination of COPD exacerbation , systolic CHF exacerbation and flu was improving, on 3L continuous, this AM has a panic attack, anxiety but also some increased hypoxia CXR with right LL infiltrate, will treat with Levaquin eased work of breathing with Ativan, will continue PRN continue Solu Medrol, will taper to Prednisone in next 1-2 days continue scheduled nebulizers, causing some tachycardia Pneumonia after influenza start Levaquin today, complete 5-7 days depending on response leukocytosis, increased cough 2 episodes of nonsustained V. 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
[2017-10-28] MEDS: NYSTATIN SUSP 500,000 U/5 ML UDC PO SCH ×2 (17:29→20:37)
[2017-10-28] MEDS: ASPIRIN 81 MG ECTAB PO SCH (20:37)
[2017-10-28] MEDS: EZETIMIBE 10MG TAB PO SCH (20:37)
[2017-10-28] MEDS: PRAMIPEXOLE DIHYDROCHLORIDE 0.25MG TAB PO SCH (20:37)
[2017-10-28] MEDS: ATORVASTATIN 40 MG TAB PO SCH (20:37)
[2017-10-28] MEDS: ENOXAPARIN 30 MG/0.3 ML SYR SC SCH (20:38)
[2017-10-29] VITALS (7 sets, daily range): BP systolic 106–146; BP diastolic 53–72; PULSE 77–85; TEMP 36.5–36.8; O2SAT 94–99
[2017-10-29] MEDS: METHYLPREDNISOLONE IV 40 MG in SYRINGE 0 ML IV SCH ×3 (05:58→22:02)
[2017-10-29] MEDS: IPRATROPIUM BROMIDE NEB SOLN 0.02% 2.5 ML VIAL INH SCH ×4 (07:15→20:11)
[2017-10-29] MEDS: LEVALBUTEROL 1.25MG/0.5ML NEB INH SCH ×4 (07:15→20:11)
--- NOTE | 2017-10-29 07:48 | DIAGNOSTIC IMAGING REPORT ---
CHEST ONE VIEW PORTABLE HISTORY: 72 years-old Female Influenza A with new patchy opacity, persistent SOB acute shortness of breath COMPARISON: Chest radiograph 10/28/2017 and 10/22/2017 TECHNIQUE: Portable AP view of the chest FINDINGS: Moderate enlargement of the cardiac silhouette is unchanged. Left pectoral pacer/AICD appears stable with leads appearing to be intact. The distal most portion of the right ventricular lead is not imaged. There is no pneumothorax identified. Persistent patchy consolidative opacities are present within the lateral right lung base and also to lesser extent within the lateral left lung base. Emphysema. Atherosclerosis of the aorta. Mild blunting of the costophrenic angles suggests trace effusions. IMPRESSION: 1. Persistent bibasilar subsegmental consolidative opacities, right greater than left suggest pneumonia or aspiration pneumonitis. Follow-up recommended. 2. Cardiomegaly. 3. Trace bilateral pleural effusions. 4. Emphysema. The above report was generated using voice recognition software. It may contain grammatical, syntax or spelling errors. Electronically signed by: Angelito Portillo M.D. 10/29/2017 7:46 AM Dictated Date/Time: 10/29/2017 7:43 AM
--- NOTE | 2017-10-29 08:40 | Pulmonology Progress Note ---
Pulmonary Progress Note Date of Service Oct 29, 2017. Attending Dr. Tiwari Subjective Mrs. Jameson was seen at bedside and is slowly improving. She was taken off isolation yesterday for influenza. She's had no sputum production this morning. She does continue with nonproductive cough. No chest pain or tightness. She fatigues easily and has not ambulated very much in the hallways. She denies fever, sweats, rigors. Aside from malaise, she has no acute complaints today. Objective Vital Signs - as noted below Laboratory Data - as noted below Physical Exam: General - NAD Eyes - No icterus, gaze conjugate ENT - Mucosa moist, no lesions. Thrush on tongue improved Neck - Supple, No JVD Lungs -Mrs. Jameson has some rales and rhonchi noted today. There are faint expiratory wheezes in the upper english. Heart - Regular, rate controlled Abdomen - Soft, NT, ND, BS present Extremities - No edema, pedal pulses intact Neuro - A&OX3 Assessment & Plan INFLUENZA A * Completed 5 days of Tamiflu * Some improvement in symptoms but slow to resolve * Continue supportive care * Discussed with infectious disease. Completed treatment of Tamiflu * Initial onset of symptoms greater than 6 days ago * Taken off isolation precautions 10/28/17 * Now treating for possible superimposed pneumonia COPD EXACERBATION * Continues to be an occasional smoker * Continue with neb treatments * Continue incentive spirometry * Add flutter valve * OOB to chair as tolerated throughout the day * Ambulate as tolerated * Encourage use of incentive spirometer and flutter valve QUESTION OF INFILTRATE VS ATELECTASIS ON CXR * Patient continues with CHOWDHURY and some SOB at rest * Completed treatment for influenza A * Received one dose of levofloxacin yesterday. QTc 552. Change to ceftriaxone 1 g IV daily. Repeat EKG today * Procalcitonin with am labs with very slight elevation of 0.09 * Trend Pro calcitonin * Check repeat CXR tomorrow * Continue aggressive pulmonary toilet and aggressive incentive spirometry to correct atelectasis ORAL CANDIDIASIS * New finding 10/28/17 * Started Nystatin suspension QID swish and swallow 10/28/17 * Some improvement today DVT PROPHYLAXIS * Enoxaparin * Continue Clopidogrel Thank you for including us in the care of this patient. We will continue to follow along with you. Data Medications: Current Inpatient Medications Medications (Trade) Dose Ordered Sig/Osmani Route Start Time Stop Time Status Last Admin Dose Admin Enoxaparin Sodium (Lovenox Inj) 30 mg QPM SC 10/22/17 21:00 11/21/17 20:59 10/28/17 20:38 30 MG Acetaminophen (Tylenol Tab) 650 mg Q4H PRN PO 10/22/17 09:15 11/21/17 09:14 Al Hydrox/Mg Hydrox/Simethicone (Maalox Max Susp) 15 ml Q4H PRN PO 10/22/17 09:15 11/21/17 09:14 Magnesium Hydroxide (Milk Of Magnesia Susp) 30 ml Q12H PRN PO 10/22/17 09:15 11/21/17 09:14 Ondansetron HCl (Zofran Inj) 4 mg Q6H PRN IV 10/22/17 09:15 11/21/17 09:14 Polyethylene (Miralax Powder Packet) 17 gm DAILY PRN PO 10/22/17 09:15 11/21/17 09:14 Aspirin (Ecotrin Tab) 81 mg QPM PO 10/22/17 21:00 11/21/17 20:59 10/28/17 20:37 81 MG Atorvastatin Calcium (Lipitor Tab) 80 mg HS PO 10/22/17 21:00 11/21/17 20:59 10/28/17 20:37 80 MG Carvedilol (Coreg Tab) 12.5 mg BID PO 10/22/17 21:00 11/21/17 20:59 10/28/17 20:38 12.5 MG Clopidogrel Bisulfate (plAVix TAB) 75 mg QAM PO 10/23/17 09:00 11/22/17 08:59 10/28/17 07:10 75 MG EZETIMIBE (Zetia Tab) 10 mg HS PO 10/22/17 21:00 11/21/17 20:59 10/28/17 20:37 10 MG Salmeterol Xinafoate/ Fluticasone (Advair Diskus 500/50 Inh) 1 puff BID INH 10/22/17 21:00 11/21/17 20:59 10/28/17 20:37 1 PUFF Furosemide (Lasix Tab) 40 mg DAILY PO 10/23/17 09:00 11/22/17 08:59 Future hold 10/27/17 07:35 40 MG Hydroxyzine HCl (Vistaril Tab) 25 mg BID PRN PO 10/22/17 09:15 11/21/17 09:14 10/28/17 00:14 25 MG Lisinopril (Zestril Tab) 5 mg QAM PO 10/23/17 09:00 11/22/17 08:59 10/27/17 07:36 5 MG Pramipexole Dihydrochloride (miraPEX TAB) 0.25 mg HS PO 10/22/17 21:00 11/21/17 20:59 10/28/17 20:37 0.25 MG Sertraline HCl (Zoloft Tab) 50 mg QAM PO 10/23/17 09:00 11/22/17 08:59 10/28/17 07:11 50 MG Insulin Aspart (novoLOG ASPART) SLIDING SCALE If C... ACHS SC 10/22/17 16:15 11/21/17 16:14 10/28/17 13:22 1 UNITS Glucose (Glucose 40% Gel) 15-30 GRAMS 15 GRAMS... UD PRN PO 10/22/17 10:00 11/21/17 09:59 Glucose (Glucose Chew Tab) 4-8 Tablets 4 Tabl... UD PRN PO 10/22/17 10:00 11/21/17 09:59 Dextrose (Dextrose 50% 50ML Syringe) 25-50ML OF 50% DW IV FOR... UD PRN IV 10/22/17 10:00 11/21/17 09:59 Glucagon (Glucagon Inj) 1 mg UD PRN SQ 10/22/17 10:00 11/21/17 09:59 Potassium Chloride (Klor-Con Tab) 20 meq QAM PO 10/23/17 09:00 11/22/17 08:59 10/28/17 07:10 20 MEQ Guaifenesin (Mucinex Contr Rel Tab) 600 mg Q12 PO 10/23/17 21:00 11/22/17 20:59 10/28/17 20:37 600 MG Ipratropium [place] (Atrovent 0.02% 0.5MG/2.5ML Neb) 0.5 mg QIDR INH 10/24/17 12:00 11/23/17 11:59 10/29/17 07:15 0.5 MG Levalbuterol (Xopenex 1.25MG/ 0.5ML Neb) 1.25 mg QIDR INH 10/24/17 12:00 11/23/17 11:59 10/29/17 07:15 1.25 MG Methylprednisolone Sodium Succinate 40 mg/Syringe 0.64 ml @ 1.5 mls/min Q8 IV 10/27/17 14:00 11/26/17 13:59 10/29/17 05:58 1.5 MLS/MIN Lorazepam 0.5 mg/ Syringe 1 ml @ 0.5 mls/min Q6 PRN IV 10/28/17 12:30 11/27/17 12:29 Nystatin (Mycostatin Susp) 5 ml QID PO 10/28/17 17:00 11/07/17 16:59 10/28/17 20:37 5 ML Vital Signs: Date Time Temp Pulse Resp B/P (MAP) Pulse Ox O2 Delivery O2 Flow Rate FiO2 10/29/17 08:19 Nasal Cannula 3.0 10/29/17 07:50 36.5 85 16 146/72 (96) 98 3.0 10/29/17 07:18 82 22 94 Nasal Cannula 3.0 10/28/17 23:47 Nasal Cannula 3.0 10/28/17 23:39 37.1 85 18 137/75 (95) 98 Nasal Cannula 3.5 10/28/17 20:33 96 134/73 (93) 10/28/17 20:15 96 28 99 Nasal Cannula 3.0 10/28/17 16:00 Nasal Cannula 3.0 10/28/17 15:21 36.9 101 18 145/60 (88) 99 Nasal Cannula 3.0 10/28/17 15:01 101 28 99 Nasal Cannula 3.0 10/28/17 11:41 90 28 98 Nasal Cannula 3.0 Laboratory Results: Last 24 Hours Test 10/28/17 08:46 10/28/17 12:08 10/28/17 16:56 10/28/17 20:31 White Blood Count 13.99 K/uL Red Blood Count 4.11 M/uL Hemoglobin 11.9 g/dL Hematocrit 37.9 % Mean Corpuscular Volume 92.2 fL Mean Corpuscular Hemoglobin 29.0 pg Mean Corpuscular Hemoglobin Concent 31.4 g/dl Platelet Count 228 K/uL Mean Platelet Volume 9.4 fL Neutrophils (%) (Auto) 91.6 % Lymphocytes (%) (Auto) 4.4 % Monocytes (%) (Auto) 3.4 % Eosinophils (%) (Auto) 0.0 % Basophils (%) (Auto) 0.2 % Neutrophils # (Auto) 12.83 K/uL Lymphocytes # (Auto) 0.61 K/uL Monocytes # (Auto) 0.47 K/uL Eosinophils # (Auto) 0.00 K/uL Basophils # (Auto) 0.03 K/uL RDW Standard Deviation 57.3 fL RDW Coefficient of Variation 17.0 % Immature Granulocyte % (Auto) 0.4 % Immature Granulocyte # (Auto) 0.05 K/uL Arterial Blood pH 7.38 Arterial Blood Partial Pressure CO2 58 mmHg Arterial Blood Partial Pressure O2 89 mm/Hg Arterial Blood HCO3 34 mmol/L Arterial Blood Oxygen Saturation 96.3 % Arterial Blood Base Excess 7.2 mEq/L Arterial Blood Gas Delivery 4L Simba Test POS Sodium Level 139 mmol/L Potassium Level 5.0 mmol/L Chloride Level 99 mmol/L Carbon Dioxide Level 34 mmol/L Anion Gap 6.0 mmol/L Blood Urea Nitrogen 48 mg/dl Creatinine 0.93 mg/dl Est Creatinine Clear Calc Drug Dose 40.2 ml/min Estimated GFR () 70.7 Estimated GFR (Non- 61.0 BUN/Creatinine Ratio 51.2 Random Glucose 185 mg/dl Calcium Level 8.9 mg/dl Magnesium Level 2.6 mg/dl Bedside Glucose 118 mg/dl 136 mg/dl 168 mg/dl Test 10/29/17 07:34 10/29/17 07:56 Bedside Glucose 125 mg/dl
[2017-10-29] MEDS: CLOPIDOGREL BISULFATE 75 MG TAB PO SCH (09:27)
[2017-10-29] MEDS: FUROSEMIDE 40 MG TAB PO SCH (09:27)
[2017-10-29] MEDS: LISINOPRIL 5 MG TAB PO SCH (09:27)
[2017-10-29] MEDS: POTASSIUM CHLORIDE 20 MEQ TABCR PO SCH (09:27)
[2017-10-29] MEDS: CARVEDILOL 12.5 MG TAB PO SCH ×2 (09:27→21:52)
[2017-10-29] MEDS: FLUTICASONE/SALMETEROL (ADVAIR) 500/50 INH 14 PUFF INH SCH ×2 (09:28→21:52)
[2017-10-29] MEDS: SERTRALINE HCL 50 MG TAB PO SCH (09:28)
[2017-10-29] MEDS: GUAIFENESIN 600 MG TABCR PO SCH ×2 (09:28→21:53)
[2017-10-29] MEDS: NYSTATIN SUSP 500,000 U/5 ML UDC PO SCH ×4 (09:28→21:54)
[2017-10-29] MEDS: INSULIN ASPART 100 UNITS/ML 3 ML PEN SC SCH ×4 (09:36→22:02)
[2017-10-29] MEDS: CEFTRIAXONE SOD INJ 1 GM in DEXTROSE 5% ADD-VANTAGE 50ML 50 ML IV SCH (13:11)
--- NOTE | 2017-10-29 15:33 | Progress Note ---
Subjective Date of Service: Oct 29, 2017. Subjective Pt evaluation today including: conversation w/ patient, physical exam, lab review, review of studies, conversation w/ surgery consultant, review of inpatient medication list Pain: no pain PO Intake: adequate Voiding: no voiding problems patient improving, breathing stable while sitting in chair this afternoon coughing less, no fever/chills appreciate note from pulmonology patient interested in ambulating more, trying to build up strength Problem List Medical Problems: (1) Acute asthma exacerbation Status: Acute (2) Acute bronchitis Status: Acute (3) Acute [place] Status: Acute (4) Anemia Status: Acute (5) CHF (congestive heart failure) Status: Acute (6) CHF (congestive heart failure) Status: Acute (7) CHF (congestive heart failure) Status: Acute (8) COPD (chronic obstructive pulmonary disease) Status: Acute (9) Elevated troponin Status: Acute (10) Facial contusion Status: Acute (11) Hyponatremia Status: Acute (12) Hypoxia Status: Acute (13) Influenza Status: Acute (14) Intracranial bleeding Status: Acute (15) Intractable nausea and vomiting Status: Acute (16) Mesenteric ischemia Status: Acute (17) Mesenteric ischemia Status: Acute (18) Multiple contusions Status: Acute (19) Nausea Status: Acute (20) Pulmonary edema Status: Acute (21) Pulmonary edema Status: Acute (22) Respiratory distress Status: Acute (23) Respiratory failure Status: Acute (24) SOB (shortness of breath) Status: Acute (25) Syncope Status: Acute Review of Systems Constitutional: + weakness, + fatigue Respiratory: + cough, + shortness of breath, + dyspnea on exertion Psychiatric: + anxiety All Other Systems: Reviewed and Negative Medications Current Inpatient Medications Medications (Trade) Dose Ordered Sig/Osmani Route Start Time Stop Time Status Last Admin Dose Admin Enoxaparin Sodium (Lovenox Inj) 30 mg QPM SC 10/22/17 21:00 11/21/17 20:59 10/28/17 20:38 30 MG Acetaminophen (Tylenol Tab) 650 mg Q4H PRN PO 10/22/17 09:15 11/21/17 09:14 Al Hydrox/Mg Hydrox/Simethicone (Maalox Max Susp) 15 ml Q4H PRN PO 10/22/17 09:15 11/21/17 09:14 Magnesium Hydroxide (Milk Of Magnesia Susp) 30 ml Q12H PRN PO 10/22/17 09:15 11/21/17 09:14 Ondansetron HCl (Zofran Inj) 4 mg Q6H PRN IV 10/22/17 09:15 11/21/17 09:14 Polyethylene (Miralax Powder Packet) 17 gm DAILY PRN PO 10/22/17 09:15 11/21/17 09:14 Aspirin (Ecotrin Tab) 81 mg QPM PO 10/22/17 21:00 11/21/17 20:59 10/28/17 20:37 81 MG Atorvastatin Calcium (Lipitor Tab) 80 mg HS PO 10/22/17 21:00 11/21/17 20:59 10/28/17 20:37 80 MG Carvedilol (Coreg Tab) 12.5 mg BID PO 10/22/17 21:00 11/21/17 20:59 10/29/17 09:27 12.5 MG Clopidogrel Bisulfate (plAVix TAB) 75 mg QAM PO 10/23/17 09:00 11/22/17 08:59 10/29/17 09:27 75 MG EZETIMIBE (Zetia Tab) 10 mg HS PO 10/22/17 21:00 11/21/17 20:59 10/28/17 20:37 10 MG Salmeterol Xinafoate/ Fluticasone (Advair Diskus 500/50 Inh) 1 puff BID INH 10/22/17 21:00 11/21/17 20:59 10/29/17 09:28 1 PUFF Furosemide (Lasix Tab) 40 mg DAILY PO 10/23/17 09:00 11/22/17 08:59 Future hold 10/29/17 09:27 40 MG Hydroxyzine HCl (Vistaril Tab) 25 mg BID PRN PO 10/22/17 09:15 11/21/17 09:14 10/28/17 00:14 25 MG Lisinopril (Zestril Tab) 5 mg QAM PO 10/23/17 09:00 11/22/17 08:59 10/29/17 09:27 5 MG Pramipexole Dihydrochloride (miraPEX TAB) 0.25 mg HS PO 10/22/17 21:00 11/21/17 20:59 10/28/17 20:37 0.25 MG Sertraline HCl (Zoloft Tab) 50 mg QAM PO 10/23/17 09:00 11/22/17 08:59 10/29/17 09:28 50 MG Insulin Aspart (novoLOG ASPART) SLIDING SCALE If C... ACHS SC 10/22/17 16:15 11/21/17 16:14 10/29/17 14:46 8 UNITS Glucose (Glucose 40% Gel) 15-30 GRAMS 15 GRAMS... UD PRN PO 10/22/17 10:00 11/21/17 09:59 Glucose (Glucose Chew Tab) 4-8 Tablets 4 Tabl... UD PRN PO 10/22/17 10:00 11/21/17 09:59 Dextrose (Dextrose 50% 50ML Syringe) 25-50ML OF 50% DW IV FOR... UD PRN IV 10/22/17 10:00 11/21/17 09:59 Glucagon (Glucagon Inj) 1 mg UD PRN SQ 10/22/17 10:00 11/21/17 09:59 Potassium Chloride (Klor-Con Tab) 20 meq QAM PO 10/23/17 09:00 11/22/17 08:59 10/29/17 09:27 20 MEQ Guaifenesin (Mucinex Contr Rel Tab) 600 mg Q12 PO 10/23/17 21:00 11/22/17 20:59 10/29/17 09:28 600 MG Ipratropium [place] (Atrovent 0.02% 0.5MG/2.5ML Neb) 0.5 mg QIDR INH 10/24/17 12:00 11/23/17 11:59 10/29/17 11:22 0.5 MG Levalbuterol (Xopenex 1.25MG/ 0.5ML Neb) 1.25 mg QIDR INH 10/24/17 12:00 11/23/17 11:59 10/29/17 11:22 1.25 MG Methylprednisolone Sodium Succinate 40 mg/Syringe 0.64 ml @ 1.5 mls/min Q8 IV 10/27/17 14:00 11/26/17 13:59 10/29/17 14:43 1.5 MLS/MIN Lorazepam 0.5 mg/ Syringe 1 ml @ 0.5 mls/min Q6 PRN IV 10/28/17 12:30 11/27/17 12:29 Nystatin (Mycostatin Susp) 5 ml QID PO 10/28/17 17:00 11/07/17 16:59 10/29/17 14:43 5 ML Ceftriaxone Sodium 1 gm/ Dextrose 50 ml @ 100 mls/hr Q24H IV 10/29/17 10:00 11/05/17 09:59 10/29/17 13:11 100 MLS/HR Objective Vital Signs Date Time Temp Pulse Resp B/P (MAP) Pulse Ox O2 Delivery O2 Flow Rate FiO2 10/29/17 11:22 79 22 99 Nasal Cannula 3.0 10/29/17 08:19 Nasal Cannula 3.0 10/29/17 07:50 36.5 85 16 146/72 (96) 98 3.0 10/29/17 07:18 82 22 94 Nasal Cannula 3.0 10/28/17 23:47 Nasal Cannula 3.0 10/28/17 23:39 37.1 85 18 137/75 (95) 98 Nasal Cannula 3.5 10/28/17 20:33 96 134/73 (93) 10/28/17 20:15 96 28 99 Nasal Cannula 3.0 10/28/17 16:00 Nasal Cannula 3.0 Physical Exam General Appearance: no apparent distress, + thin Eyes: normal inspection, EOMI, sclerae normal ENT: normal ENT inspection, hearing grossly normal, pharynx normal Neck: supple, no adenopathy, no JVD, trachea midline Respiratory/Chest: chest non-tender, no respiratory distress, no accessory muscle use, + decreased breath sounds, + rhonchi (bilaterally, no wheezing) Cardiovascular: regular rate, rhythm, no edema, no gallop, no JVD, no murmur Abdomen: normal bowel sounds, non tender, soft, no organomegaly Extremities: normal range of motion, non-tender, normal inspection, no pedal edema, no calf tenderness, pelvis stable 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 tach Acute on chronic respiratory failure secondary to combination of COPD exacerbation and flu acute component resolved, breathing comfortably on 3L NC this AM CXR on 10/28 with right LL infiltrate, continue Rocephin eased work of breathing with Ativan, will continue PRN continue Solu Medrol, will taper to Prednisone in next 1-2 days continue scheduled nebulizers, causing some tachycardia pulmonology following continue pulmonary toilet, flutter valve Possible Pneumonia after influenza levaquin switched to Rocephin due to prolonged QT continue for 5 days minimum Influenza A: completed 5 days of Tamiflu, off precautions, no further treatment 2 episodes of nonsustained V. tach, assembler seat seeing patient, watch and no medicine changes , no episodes for 3 days Show bradycardia , s/p biventricular ICD--resolving Acute on chronic diastolic HF Continue home dose Lasix 40 mg PO qd Continue lisinopril, carvedilol Daily weights, I's & O's GI and DVT prophylaxis is covered PT/OT evaluations anticipate discharge in [address] [facility] stay due to: multiple IV medications needed Discharge planning: home with home health (?), uncertain
[2017-10-29] MEDS: PRAMIPEXOLE DIHYDROCHLORIDE 0.25MG TAB PO SCH (21:53)
[2017-10-29] MEDS: EZETIMIBE 10MG TAB PO SCH (21:53)
[2017-10-29] MEDS: ATORVASTATIN 40 MG TAB PO SCH (21:53)
[2017-10-29] MEDS: ASPIRIN 81 MG ECTAB PO SCH (21:53)
[2017-10-29] MEDS: ENOXAPARIN 30 MG/0.3 ML SYR SC SCH (21:54)
[2017-10-30] VITALS (10 sets, daily range): BP systolic 97–125; BP diastolic 60–69; PULSE 76–88; TEMP 36.5–37.1; O2SAT 93–99
[2017-10-30] MEDS: METHYLPREDNISOLONE IV 40 MG in SYRINGE 0 ML IV SCH ×3 (05:46→21:42)
[2017-10-30] MEDS: LEVALBUTEROL 1.25MG/0.5ML NEB INH SCH ×4 (07:02→19:57)
[2017-10-30] MEDS: IPRATROPIUM BROMIDE NEB SOLN 0.02% 2.5 ML VIAL INH SCH ×4 (07:02→19:57)
--- NOTE | 2017-10-30 07:06 | DIAGNOSTIC IMAGING REPORT ---
CHEST ONE VIEW PORTABLE HISTORY: 72 years-old Female Persistent opacicities s/p influenza A treatment follow-up study to assess multiple pulmonary opacities. History of shortness of breath and influenza COMPARISON: Chest radiographs 10/29/2017 at 7:22 AM, chest radiographs 10/28/2017, 10/22/2017, 05/31/2017 TECHNIQUE: Portable AP view of the chest FINDINGS: Cardiac silhouette is moderately enlarged. Atherosclerosis of the aorta. Left pectoral pacer/AICD is unchanged. There is no pneumothorax. Mild blunting of the costophrenic angles redemonstrated. Emphysematous changes are noted along with persistent patchy subsegmental bibasilar opacities right greater than left which appear unchanged. Although the chest appear grossly intact. IMPRESSION: 1. Unchanged patchy bibasilar opacities, right greater than left. 2. Cardiomegaly without overt pulmonary edema. 3. Emphysema. The above report was generated using voice recognition software. It may contain grammatical, syntax or spelling errors. Electronically signed by: Angelito Portillo M.D. 10/30/2017 7:04 AM Dictated Date/Time: 10/30/2017 7:02 AM
[2017-10-30 07:54] LABS: HEMATOCRIT 34.7 % (37-47); HEMOGLOBIN 11.2 g/dL (12.0-16.0); IG# 0.03 K/uL (0.00-0.02); LYMPH ABS # 0.41 K/uL (1.2-3.4); MEAN CELL VOLUME 90.6 fL (80-100); MEAN CORPUSCULAR HEMOGLOBIN 29.2 pg (25-34); MEAN CORPUSCULAR HGB CONC 32.3 g/dl (32-36); MEAN PLATELET VOLUME 9.3 fL (7.4-10.4); MONO % 4.3 %; MONO ABS # 0.36 K/uL (0.11-0.59); NEUT % 90.3 %; NEUT ABS # 7.48 K/uL (1.4-6.5); PLATELET COUNT 188 K/uL (130-400); RED CELL DISTRIBUTION WIDTH SD 56.6 fL (36.4-46.3); WHITE BLOOD COUNT 8.28 K/uL (4.8-10.8)
[2017-10-30 08:26] LABS: CALCIUM 9.1 mg/dl (8.5-10.1); CREATININE 0.87 mg/dl (0.60-1.20); POTASSIUM 4.8 mmol/L (3.5-5.1)
[2017-10-30] MEDS: POTASSIUM CHLORIDE 20 MEQ TABCR PO SCH (09:35)
[2017-10-30] MEDS: CLOPIDOGREL BISULFATE 75 MG TAB PO SCH (09:35)
[2017-10-30] MEDS: CARVEDILOL 12.5 MG TAB PO SCH ×2 (09:35→21:41)
[2017-10-30] MEDS: FUROSEMIDE 40 MG TAB PO SCH (09:35)
[2017-10-30] MEDS: NYSTATIN SUSP 500,000 U/5 ML UDC PO SCH ×4 (09:36→21:38)
[2017-10-30] MEDS: FLUTICASONE/SALMETEROL (ADVAIR) 500/50 INH 14 PUFF INH SCH ×2 (09:36→21:36)
[2017-10-30] MEDS: LISINOPRIL 5 MG TAB PO SCH (09:36)
[2017-10-30] MEDS: GUAIFENESIN 600 MG TABCR PO SCH ×2 (09:36→21:41)
[2017-10-30] MEDS: SERTRALINE HCL 50 MG TAB PO SCH (09:36)
[2017-10-30] MEDS: INSULIN ASPART 100 UNITS/ML 3 ML PEN SC SCH ×4 (09:43→21:49)
[2017-10-30] MEDS: hydrOXYzine HCL 25 MG TAB PO PRN (09:53)
[2017-10-30] MEDS: CEFTRIAXONE SOD INJ 1 GM in DEXTROSE 5% ADD-VANTAGE 50ML 50 ML IV SCH (09:54)
[2017-10-30] MEDS: LORAZEPAM INJ 0.5 MG in SYRINGE 0.75 ML IV PRN (16:12)
--- NOTE | 2017-10-30 18:06 | Pulmonology Progress Note ---
Pulmonary Progress Note Date of Service Oct 30, 2017. Attending Dr. Tiwari Subjective Patient was significant improvement. Cough now primarily resolved. No sputum production. Body aches and pains improved. Still easy fatigability with minimal exertion. Slow improvement. Objective Vital Signs - as noted below Laboratory Data - as noted below Physical Exam: General - NAD. Better color. Does not appear particularly ill today Eyes - No icterus, gaze conjugate ENT - Mucosa moist, no lesions. Thrush on tongue improved Neck - Supple, No JVD Lungs -Mrs. Jameson has persistent rales and rhonchi but they seem improved from yesterday. The expiratory wheezes noted in the upper english yesterday are now resolved. Heart - Regular, rate controlled Abdomen - Soft, NT, ND, BS present Extremities - No edema, pedal pulses intact Neuro - A&OX3 Assessment & Plan INFLUENZA A * Completed 5 days of Tamiflu * Some improvement in symptoms but continues to be slow to resolve * Continue supportive care. Increase ambulation * Discussed with infectious disease. Completed treatment of Tamiflu * Taken off isolation precautions 10/28/17 * Now treating for possible superimposed pneumonia COPD EXACERBATION * Continues to be an occasional smoker - discussed need again for complete abstinence * Continue with neb treatments * Continue incentive spirometry * Continue flutter valve * OOB to chair as tolerated and ambulate throughout the day * Encourage use of incentive spirometer and flutter valve QUESTION OF INFILTRATE VS ATELECTASIS ON CXR * Completed treatment for influenza A * Received one dose of levofloxacin yesterday. QTc 552. Change to ceftriaxone 1 g IV daily. Repeat EKG with persistent prolonged QTC and now with pacer spikes * Pro calcitonin now negative - would treat with a total of seven days of antibiotics and then stop * CXR this morning shows persistent unchanged patchy bibasilar opacities. This could represent atelectasis * Continue aggressive pulmonary toilet and aggressive incentive spirometry to correct atelectasis ORAL CANDIDIASIS * New finding 10/28/17 * Started Nystatin suspension QID swish and swallow 10/28/17 * No evidence of oral candidiasis on exam today. Would discontinue nystatin suspension after three days total DVT PROPHYLAXIS * Enoxaparin * Continue Clopidogrel Thank you for including us in the care of this patient. We will sign off at this time. Please feel free to reconsult as needed. Data Medications: Current Inpatient Medications Medications (Trade) Dose Ordered Sig/Somani Route Start Time Stop Time Status Last Admin Dose Admin Enoxaparin Sodium (Lovenox Inj) 30 mg QPM SC 10/22/17 21:00 11/21/17 20:59 10/29/17 21:54 30 MG Acetaminophen (Tylenol Tab) 650 mg Q4H PRN PO 10/22/17 09:15 11/21/17 09:14 Al Hydrox/Mg Hydrox/Simethicone (Maalox Max Susp) 15 ml Q4H PRN PO 10/22/17 09:15 11/21/17 09:14 Magnesium Hydroxide (Milk Of Magnesia Susp) 30 ml Q12H PRN PO 10/22/17 09:15 11/21/17 09:14 Ondansetron HCl (Zofran Inj) 4 mg Q6H PRN IV 10/22/17 09:15 11/21/17 09:14 Polyethylene (Miralax Powder Packet) 17 gm DAILY PRN PO 10/22/17 09:15 11/21/17 09:14 Aspirin (Ecotrin Tab) 81 mg QPM PO 10/22/17 21:00 11/21/17 20:59 10/29/17 21:53 81 MG Atorvastatin Calcium (Lipitor Tab) 80 mg HS PO 10/22/17 21:00 11/21/17 20:59 10/29/17 21:53 80 MG Carvedilol (Coreg Tab) 12.5 mg BID PO 10/22/17 21:00 11/21/17 20:59 10/30/17 09:35 12.5 MG Clopidogrel Bisulfate (plAVix TAB) 75 mg QAM PO 10/23/17 09:00 11/22/17 08:59 10/30/17 09:35 75 MG EZETIMIBE (Zetia Tab) 10 mg HS PO 10/22/17 21:00 11/21/17 20:59 10/29/17 21:53 10 MG Salmeterol Xinafoate/ Fluticasone (Advair Diskus 500/50 Inh) 1 puff BID INH 10/22/17 21:00 11/21/17 20:59 10/30/17 09:36 1 PUFF Furosemide (Lasix Tab) 40 mg DAILY PO 10/23/17 09:00 11/22/17 08:59 Future hold 10/30/17 09:35 40 MG Hydroxyzine HCl (Vistaril Tab) 25 mg BID PRN PO 10/22/17 09:15 11/21/17 09:14 10/30/17 09:53 25 MG Lisinopril (Zestril Tab) 5 mg QAM PO 10/23/17 09:00 11/22/17 08:59 10/30/17 09:36 5 MG Pramipexole Dihydrochloride (miraPEX TAB) 0.25 mg HS PO 10/22/17 21:00 11/21/17 20:59 10/29/17 21:53 0.25 MG Sertraline HCl (Zoloft Tab) 50 mg QAM PO 10/23/17 09:00 11/22/17 08:59 10/30/17 09:36 50 MG Insulin Aspart (novoLOG ASPART) SLIDING SCALE If C... ACHS SC 10/22/17 16:15 11/21/17 16:14 10/30/17 13:27 9 UNITS Glucose (Glucose 40% Gel) 15-30 GRAMS 15 GRAMS... UD PRN PO 10/22/17 10:00 11/21/17 09:59 Glucose (Glucose Chew Tab) 4-8 Tablets 4 Tabl... UD PRN PO 10/22/17 10:00 11/21/17 09:59 Dextrose (Dextrose 50% 50ML Syringe) 25-50ML OF 50% DW IV FOR... UD PRN IV 10/22/17 10:00 11/21/17 09:59 Glucagon (Glucagon Inj) 1 mg UD PRN SQ 10/22/17 10:00 11/21/17 09:59 Potassium Chloride (Klor-Con Tab) 20 meq QAM PO 10/23/17 09:00 11/22/17 08:59 10/30/17 09:35 20 MEQ Guaifenesin (Mucinex Contr Rel Tab) 600 mg Q12 PO 10/23/17 21:00 11/22/17 20:59 10/30/17 09:36 600 MG Ipratropium [place] (Atrovent 0.02% 0.5MG/2.5ML Neb) 0.5 mg QIDR INH 10/24/17 12:00 2/17/18 11:59 10/30/17 15:06 0.5 MG Levalbuterol (Xopenex 1.25MG/ 0.5ML Neb) 1.25 mg QIDR INH 10/24/17 12:00 11/23/17 11:59 10/30/17 15:06 1.25 MG Methylprednisolone Sodium Succinate 40 mg/Syringe 0.64 ml @ 1.5 mls/min Q8 IV 10/27/17 14:00 11/26/17 13:59 10/30/17 14:33 1.5 MLS/MIN Lorazepam 0.5 mg/ Syringe 1 ml @ 0.5 mls/min Q6 PRN IV 10/28/17 12:30 11/27/17 12:29 10/30/17 16:12 0.5 MLS/MIN Nystatin (Mycostatin Susp) 5 ml QID PO 10/28/17 17:00 11/07/17 16:59 10/30/17 13:21 5 ML Ceftriaxone Sodium 1 gm/ Dextrose 50 ml @ 100 mls/hr Q24H IV 10/29/17 10:00 11/05/17 09:59 10/30/17 09:54 100 MLS/HR Enteral Nutritional Formula (Boost Glucose Control) 1 can DAILY PO 10/31/17 09:00 11/30/17 08:59 I & O: 24-Hour Column 10/31/17 08:00 Intake Total 300 ml Balance 300 ml Vital Signs: Date Time Temp Pulse Resp B/P (MAP) Pulse Ox O2 Delivery O2 Flow Rate FiO2 10/30/17 15:54 36.5 83 20 97/60 (72) 93 Nasal Cannula 2.0 10/30/17 15:06 84 20 98 Nasal Cannula 3.0 10/30/17 11:49 88 20 95 Nasal Cannula 3.0 10/30/17 10:42 Nasal Cannula 3.0 10/30/17 08:13 37.1 76 18 125/61 (82) 97 Nasal Cannula 3.0 10/30/17 07:02 88 20 97 Nasal Cannula 3.0 10/30/17 00:15 97 Nasal Cannula 3.0 10/29/17 22:55 36.8 85 18 106/53 (70) 99 Nasal Cannula 4.0 10/29/17 20:12 85 20 97 Nasal Cannula 3.0 Laboratory Results: Last 24 Hours Test 10/29/17 20:55 10/30/17 07:22 Bedside Glucose 194 mg/dl White Blood Count 8.28 K/uL Red Blood Count 3.83 M/uL Hemoglobin 11.2 g/dL Hematocrit 34.7 % Mean Corpuscular Volume 90.6 fL Mean Corpuscular Hemoglobin 29.2 pg Mean Corpuscular Hemoglobin Concent 32.3 g/dl Platelet Count 188 K/uL Mean Platelet Volume 9.3 fL Neutrophils (%) (Auto) 90.3 % Lymphocytes (%) (Auto) 5.0 % Monocytes (%) (Auto) 4.3 % Eosinophils (%) (Auto) 0.0 % Basophils (%) (Auto) 0.0 % Neutrophils # (Auto) 7.48 K/uL Lymphocytes # (Auto) 0.41 K/uL Monocytes # (Auto) 0.36 K/uL Eosinophils # (Auto) 0.00 K/uL Basophils # (Auto) 0.00 K/uL RDW Standard Deviation 56.6 fL RDW Coefficient of Variation 17.0 % Immature Granulocyte % (Auto) 0.4 % Immature Granulocyte # (Auto) 0.03 K/uL Sodium Level 140 mmol/L Potassium Level 4.8 mmol/L Chloride Level 100 mmol/L Carbon Dioxide Level 34 mmol/L Anion Gap 5.0 mmol/L Blood Urea Nitrogen 45 mg/dl Creatinine 0.87 mg/dl Est Creatinine Clear Calc Drug Dose 43.0 ml/min Estimated GFR () 76.6 Estimated GFR (Non- 66.1 BUN/Creatinine Ratio 51.9 Random Glucose 147 mg/dl Calcium Level 9.1 mg/dl Procalcitonin < 0.05 ng/ml
--- NOTE | 2017-10-30 21:23 | Progress Note ---
Subjective Date of Service: Oct 30, 2017. Subjective Pt evaluation today including: conversation w/ patient, physical exam, lab review, review of inpatient medication list Pain: no pain PO Intake: adequate Voiding: no voiding problems patient feels fatigued, unmotivated to move encouraged her to participate with PT/OT, she likely needs rehab appreciate pulmonology note Problem List Medical Problems: (1) Acute asthma exacerbation Status: Acute (2) Acute bronchitis Status: Acute (3) Acute AL Status: Acute (4) Anemia Status: Acute (5) CHF (congestive heart failure) Status: Acute (6) CHF (congestive heart failure) Status: Acute (7) CHF (congestive heart failure) Status: Acute (8) COPD (chronic obstructive pulmonary disease) Status: Acute (9) Elevated troponin Status: Acute (10) Facial contusion Status: Acute (11) Hyponatremia Status: Acute (12) Hypoxia Status: Acute (13) Influenza Status: Acute (14) Intracranial bleeding Status: Acute (15) Intractable nausea and vomiting Status: Acute (16) Mesenteric ischemia Status: Acute (17) Mesenteric ischemia Status: Acute (18) Multiple contusions Status: Acute (19) Nausea Status: Acute (20) Pulmonary edema Status: Acute (21) Pulmonary edema Status: Acute (22) Respiratory distress Status: Acute (23) Respiratory failure Status: Acute (24) SOB (shortness of breath) Status: Acute (25) Syncope Status: Acute Review of Systems Constitutional: + weakness, + fatigue Respiratory: + cough, + sputum, + wheezing, + shortness of breath All Other Systems: Reviewed and Negative Medications Current Inpatient Medications Medications (Trade) Dose Ordered Sig/Osmani Route Start Time Stop Time Status Last Admin Dose Admin Enoxaparin Sodium (Lovenox Inj) 30 mg QPM SC 10/22/17 21:00 11/21/17 20:59 10/29/17 21:54 30 MG Acetaminophen (Tylenol Tab) 650 mg Q4H PRN PO 10/22/17 09:15 11/21/17 09:14 Al Hydrox/Mg Hydrox/Simethicone (Maalox Max Susp) 15 ml Q4H PRN PO 10/22/17 09:15 11/21/17 09:14 Magnesium Hydroxide (Milk Of Magnesia Susp) 30 ml Q12H PRN PO 10/22/17 09:15 11/21/17 09:14 Ondansetron HCl (Zofran Inj) 4 mg Q6H PRN IV 10/22/17 09:15 11/21/17 09:14 Polyethylene (Miralax Powder Packet) 17 gm DAILY PRN PO 10/22/17 09:15 11/21/17 09:14 Aspirin (Ecotrin Tab) 81 mg QPM PO 10/22/17 21:00 11/21/17 20:59 10/29/17 21:53 81 MG Atorvastatin Calcium (Lipitor Tab) 80 mg HS PO 10/22/17 21:00 11/21/17 20:59 10/29/17 21:53 80 MG Carvedilol (Coreg Tab) 12.5 mg BID PO 10/22/17 21:00 11/21/17 20:59 10/30/17 09:35 12.5 MG Clopidogrel Bisulfate (plAVix TAB) 75 mg QAM PO 10/23/17 09:00 11/22/17 08:59 10/30/17 09:35 75 MG EZETIMIBE (Zetia Tab) 10 mg HS PO 10/22/17 21:00 11/21/17 20:59 10/29/17 21:53 10 MG Salmeterol Xinafoate/ Fluticasone (Advair Diskus 500/50 Inh) 1 puff BID INH 10/22/17 21:00 11/21/17 20:59 10/30/17 09:36 1 PUFF Furosemide (Lasix Tab) 40 mg DAILY PO 10/23/17 09:00 11/22/17 08:59 Future hold 10/30/17 09:35 40 MG Hydroxyzine HCl (Vistaril Tab) 25 mg BID PRN PO 10/22/17 09:15 11/21/17 09:14 10/30/17 09:53 25 MG Lisinopril (Zestril Tab) 5 mg QAM PO 10/23/17 09:00 11/22/17 08:59 10/30/17 09:36 5 MG Pramipexole Dihydrochloride (miraPEX TAB) 0.25 mg HS PO 10/22/17 21:00 11/21/17 20:59 10/29/17 21:53 0.25 MG Sertraline HCl (Zoloft Tab) 50 mg QAM PO 10/23/17 09:00 11/22/17 08:59 10/30/17 09:36 50 MG Insulin Aspart (novoLOG ASPART) SLIDING SCALE If C... ACHS SC 10/22/17 16:15 11/21/17 16:14 10/30/17 13:27 9 UNITS Glucose (Glucose 40% Gel) 15-30 GRAMS 15 GRAMS... UD PRN PO 10/22/17 10:00 11/21/17 09:59 Glucose (Glucose Chew Tab) 4-8 Tablets 4 Tabl... UD PRN PO 10/22/17 10:00 11/21/17 09:59 Dextrose (Dextrose 50% 50ML Syringe) 25-50ML OF 50% DW IV FOR... UD PRN IV 10/22/17 10:00 11/21/17 09:59 Glucagon (Glucagon Inj) 1 mg UD PRN SQ 10/22/17 10:00 11/21/17 09:59 Potassium Chloride (Klor-Con Tab) 20 meq QAM PO 10/23/17 09:00 11/22/17 08:59 10/30/17 09:35 20 MEQ Guaifenesin (Mucinex Contr Rel Tab) 600 mg Q12 PO 10/23/17 21:00 11/22/17 20:59 10/30/17 09:36 600 MG Ipratropium [place] (Atrovent 0.02% 0.5MG/2.5ML Neb) 0.5 mg QIDR INH 10/24/17 12:00 11/23/17 11:59 10/30/17 19:57 0.5 MG Levalbuterol (Xopenex 1.25MG/ 0.5ML Neb) 1.25 mg QIDR INH 10/24/17 12:00 11/23/17 11:59 10/30/17 19:57 1.25 MG Methylprednisolone Sodium Succinate 40 mg/Syringe 0.64 ml @ 1.5 mls/min Q8 IV 10/27/17 14:00 11/26/17 13:59 10/30/17 14:33 1.5 MLS/MIN Lorazepam 0.5 mg/ Syringe 1 ml @ 0.5 mls/min Q6 PRN IV 10/28/17 12:30 11/27/17 12:29 1/24/18 16:12 0.5 MLS/MIN Nystatin (Mycostatin Susp) 5 ml QID PO 10/28/17 17:00 11/07/17 16:59 10/30/17 19:12 5 ML Ceftriaxone Sodium 1 gm/ Dextrose 50 ml @ 100 mls/hr Q24H IV 10/29/17 10:00 11/05/17 09:59 10/30/17 09:54 100 MLS/HR Enteral Nutritional Formula (Boost Glucose Control) 1 can DAILY PO 10/31/17 09:00 11/30/17 08:59 Objective Vital Signs Date Time Temp Pulse Resp B/P (MAP) Pulse Ox O2 Delivery O2 Flow Rate FiO2 10/30/17 19:57 82 20 98 Nasal Cannula 2.0 10/30/17 15:54 36.5 83 20 97/60 (72) 93 Nasal Cannula 2.0 10/30/17 15:30 Nasal Cannula 3.0 10/30/17 15:06 84 20 98 Nasal Cannula 3.0 10/30/17 11:49 88 20 95 Nasal Cannula 3.0 10/30/17 10:42 Nasal Cannula 3.0 10/30/17 08:13 37.1 76 18 125/61 (82) 97 Nasal Cannula 3.0 10/30/17 07:02 88 20 97 Nasal Cannula 3.0 10/30/17 00:15 97 Nasal Cannula 3.0 10/29/17 22:55 36.8 85 18 106/53 (70) 99 Nasal Cannula 4.0 Physical Exam General Appearance: no apparent distress, + thin Eyes: normal inspection, EOMI, sclerae normal ENT: normal ENT inspection, hearing grossly normal, pharynx normal Neck: supple, no adenopathy, no JVD, trachea midline Respiratory/Chest: chest non-tender, no respiratory distress, no accessory muscle use, + rhonchi Cardiovascular: regular rate, rhythm, no edema, no gallop, no JVD, no murmur Abdomen: normal bowel sounds, non tender, soft, no organomegaly Extremities: normal range of motion, non-tender, normal inspection, no pedal edema, no calf tenderness, pelvis stable Neurologic/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: 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 tested, no motor/sensory deficits, alert, normal mood/affect, oriented x 3 Skin: normal color, warm/dry, no rash Lymphatic: no adenopathy Laboratory Results Last 24 Hours Test 10/30/17 07:22 10/30/17 16:58 White Blood Count 8.28 K/uL Red Blood Count 3.83 M/uL Hemoglobin 11.2 g/dL Hematocrit 34.7 % Mean Corpuscular Volume 90.6 fL Mean Corpuscular Hemoglobin 29.2 pg Mean Corpuscular Hemoglobin Concent 32.3 g/dl Platelet Count 188 K/uL Mean Platelet Volume 9.3 fL Neutrophils (%) (Auto) 90.3 % Lymphocytes (%) (Auto) 5.0 % Monocytes (%) (Auto) 4.3 % Eosinophils (%) (Auto) 0.0 % Basophils (%) (Auto) 0.0 % Neutrophils # (Auto) 7.48 K/uL Lymphocytes # (Auto) 0.41 K/uL Monocytes # (Auto) 0.36 K/uL Eosinophils # (Auto) 0.00 K/uL Basophils # (Auto) 0.00 K/uL RDW Standard Deviation 56.6 fL RDW Coefficient of Variation 17.0 % Immature Granulocyte % (Auto) 0.4 % Immature Granulocyte # (Auto) 0.03 K/uL Sodium Level 140 mmol/L Potassium Level 4.8 mmol/L Chloride Level 100 mmol/L Carbon Dioxide Level 34 mmol/L Anion Gap 5.0 mmol/L Blood Urea Nitrogen 45 mg/dl Creatinine 0.87 mg/dl Est Creatinine Clear Calc Drug Dose 43.0 ml/min Estimated GFR () 76.6 Estimated GFR (Non- 66.1 BUN/Creatinine Ratio 51.9 Random Glucose 147 mg/dl Calcium Level 9.1 mg/dl Procalcitonin < 0.05 ng/ml Bedside Glucose 158 mg/dl Assessment and Plan 72 y/o female admitted on 10/22 with influenza and influenza caused COPD exacerbation worsening shortness of breath, was found has 2 episodes of nonsustained V. tach Acute on chronic respiratory failure secondary to combination of COPD exacerbation and flu acute component resolved, breathing comfortably on 3L NC again today CXR on 10/28 with right LL infiltrate, continue Rocephin for total of 7 days, can switch to PO antibiotic tomorrow eased work of breathing with Ativan, will continue PRN continue Solu Medrol, will taper to Prednisone tomorrow continue scheduled nebulizers, causing some tachycardia pulmonology following continue pulmonary toilet, flutter valve Possible Pneumonia after influenza levaquin switched to Rocephin due to prolonged QT continue for 7 days, change to Cefdinir tomorrow Influenza A: completed 5 days of Tamiflu, off precautions, no further treatment 2 episodes of nonsustained V. 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
[2017-10-30] MEDS: EZETIMIBE 10MG TAB PO SCH (21:37)
[2017-10-30] MEDS: ENOXAPARIN 30 MG/0.3 ML SYR SC SCH (21:38)
[2017-10-30] MEDS: ASPIRIN 81 MG ECTAB PO SCH (21:39)
[2017-10-30] MEDS: ATORVASTATIN 40 MG TAB PO SCH (21:39)
[2017-10-30] MEDS: PRAMIPEXOLE DIHYDROCHLORIDE 0.25MG TAB PO SCH (21:42)
[2017-10-31] VITALS (8 sets, daily range): BP systolic 115–144; BP diastolic 63–72; PULSE 60–84; TEMP 36.5–36.7; O2SAT 95–98
[2017-10-31] MEDS ORDERED: COUGH DROP (SUGAR FREE) LOZ 24 LOZ/1 BOX LOZ PRN (00:45)
[2017-10-31] MEDS: METHYLPREDNISOLONE IV 40 MG in SYRINGE 0 ML IV SCH ×3 (06:08→21:41)
[2017-10-31] MEDS: IPRATROPIUM BROMIDE NEB SOLN 0.02% 2.5 ML VIAL INH SCH ×4 (07:18→19:08)
[2017-10-31] MEDS: LEVALBUTEROL 1.25MG/0.5ML NEB INH SCH ×4 (07:18→19:08)
[2017-10-31] MEDS ORDERED: BOOST GLUCOSE CONTROL PO SCH (09:00)
[2017-10-31] MEDS: INSULIN ASPART 100 UNITS/ML 3 ML PEN SC SCH ×4 (10:21→20:54)
[2017-10-31] MEDS: SERTRALINE HCL 50 MG TAB PO SCH (10:23)
[2017-10-31] MEDS: FLUTICASONE/SALMETEROL (ADVAIR) 500/50 INH 14 PUFF INH SCH ×2 (10:23→20:56)
[2017-10-31] MEDS: BOOST GLUCOSE CONTROL PO SCH (10:23)
[2017-10-31] MEDS: NYSTATIN SUSP 500,000 U/5 ML UDC PO SCH ×4 (10:24→20:55)
[2017-10-31] MEDS: POTASSIUM CHLORIDE 20 MEQ TABCR PO SCH (10:24)
[2017-10-31] MEDS: CEFTRIAXONE SOD INJ 1 GM in DEXTROSE 5% ADD-VANTAGE 50ML 50 ML IV SCH (10:24)
[2017-10-31] MEDS: GUAIFENESIN 600 MG TABCR PO SCH ×2 (10:24→20:57)
[2017-10-31] MEDS: CARVEDILOL 12.5 MG TAB PO SCH ×2 (10:25→20:57)
[2017-10-31] MEDS: CLOPIDOGREL BISULFATE 75 MG TAB PO SCH (10:25)
[2017-10-31] MEDS: FUROSEMIDE 40 MG TAB PO SCH (10:25)
[2017-10-31] MEDS: LISINOPRIL 5 MG TAB PO SCH (10:50)
[2017-10-31] MEDS: LORAZEPAM INJ 0.5 MG in SYRINGE 0.75 ML IV PRN ×2 (10:51→21:40)
--- NOTE | 2017-10-31 13:31 | Progress Note ---
Subjective Date of Service: Oct 31, 2017. Subjective Pt evaluation today including: conversation w/ patient, physical exam, lab review, review of inpatient medication list Pain: no pain PO Intake: adequate Voiding: no voiding problems patient breathing better today, less cough more energy, ambulated 60 feet with PT eating well concerned about going home, fears her breathing will get worse Problem List Medical Problems: (1) Acute asthma exacerbation Status: Acute (2) Acute bronchitis Status: Acute (3) Acute LA Status: Acute (4) Anemia Status: Acute (5) CHF (congestive heart failure) Status: Acute (6) CHF (congestive heart failure) Status: Acute (7) CHF (congestive heart failure) Status: Acute (8) COPD (chronic obstructive pulmonary disease) Status: Acute (9) Elevated troponin Status: Acute (10) Facial contusion Status: Acute (11) Hyponatremia Status: Acute (12) Hypoxia Status: Acute (13) Influenza Status: Acute (14) Intracranial bleeding Status: Acute (15) Intractable nausea and vomiting Status: Acute (16) Mesenteric ischemia Status: Acute (17) Mesenteric ischemia Status: Acute (18) Multiple contusions Status: Acute (19) Nausea Status: Acute (20) Pulmonary edema Status: Acute (21) Pulmonary edema Status: Acute (22) Respiratory distress Status: Acute (23) Respiratory failure Status: Acute (24) SOB (shortness of breath) Status: Acute (25) Syncope Status: Acute Review of Systems Constitutional: + weakness, + fatigue Respiratory: + dyspnea on exertion Neurologic: + weakness All Other Systems: Reviewed and Negative Medications Current Inpatient Medications Medications (Trade) Dose Ordered Sig/Osmani Route Start Time Stop Time Status Last Admin Dose Admin Enoxaparin Sodium (Lovenox Inj) 30 mg QPM SC 10/22/17 21:00 11/21/17 20:59 10/30/17 21:38 30 MG Acetaminophen (Tylenol Tab) 650 mg Q4H PRN PO 10/22/17 09:15 11/21/17 09:14 Al Hydrox/Mg Hydrox/Simethicone (Maalox Max Susp) 15 ml Q4H PRN PO 10/22/17 09:15 11/21/17 09:14 Magnesium Hydroxide (Milk Of Magnesia Susp) 30 ml Q12H PRN PO 10/22/17 09:15 11/21/17 09:14 Ondansetron HCl (Zofran Inj) 4 mg Q6H PRN IV 10/22/17 09:15 11/21/17 09:14 Polyethylene (Miralax Powder Packet) 17 gm DAILY PRN PO 10/22/17 09:15 11/21/17 09:14 Aspirin (Ecotrin Tab) 81 mg QPM PO 10/22/17 21:00 11/21/17 20:59 10/30/17 21:39 81 MG Atorvastatin Calcium (Lipitor Tab) 80 mg HS PO 10/22/17 21:00 11/21/17 20:59 10/30/17 21:39 80 MG Carvedilol (Coreg Tab) 12.5 mg BID PO 10/22/17 21:00 11/21/17 20:59 10/31/17 10:25 12.5 MG Clopidogrel Bisulfate (plAVix TAB) 75 mg QAM PO 10/23/17 09:00 11/22/17 08:59 10/31/17 10:25 75 MG EZETIMIBE (Zetia Tab) 10 mg HS PO 10/22/17 21:00 11/21/17 20:59 10/30/17 21:37 10 MG Salmeterol Xinafoate/ Fluticasone (Advair Diskus 500/50 Inh) 1 puff BID INH 10/22/17 21:00 11/21/17 20:59 10/31/17 10:23 1 PUFF Furosemide (Lasix Tab) 40 mg DAILY PO 10/23/17 09:00 11/22/17 08:59 Future hold 10/31/17 10:25 40 MG Hydroxyzine HCl (Vistaril Tab) 25 mg BID PRN PO 10/22/17 09:15 11/21/17 09:14 10/30/17 09:53 25 MG Lisinopril (Zestril Tab) 5 mg QAM PO 10/23/17 09:00 11/22/17 08:59 10/31/17 10:50 5 MG Pramipexole Dihydrochloride (miraPEX TAB) 0.25 mg HS PO 10/22/17 21:00 11/21/17 20:59 10/30/17 21:42 0.25 MG Sertraline HCl (Zoloft Tab) 50 mg QAM PO 10/23/17 09:00 11/22/17 08:59 10/31/17 10:23 50 MG Insulin Aspart (novoLOG ASPART) SLIDING SCALE If C... ACHS SC 10/22/17 16:15 11/21/17 16:14 10/31/17 13:11 8 UNITS Glucose (Glucose 40% Gel) 15-30 GRAMS 15 GRAMS... UD PRN PO 10/22/17 10:00 11/21/17 09:59 Glucose (Glucose Chew Tab) 4-8 Tablets 4 Tabl... UD PRN PO 10/22/17 10:00 11/21/17 09:59 Dextrose (Dextrose 50% 50ML Syringe) 25-50ML OF 50% DW IV FOR... UD PRN IV 10/22/17 10:00 11/21/17 09:59 Glucagon (Glucagon Inj) 1 mg UD PRN SQ 10/22/17 10:00 11/21/17 09:59 Potassium Chloride (Klor-Con Tab) 20 meq QAM PO 10/23/17 09:00 11/22/17 08:59 10/31/17 10:24 20 MEQ Guaifenesin (Mucinex Contr Rel Tab) 600 mg Q12 PO 10/23/17 21:00 11/22/17 20:59 10/31/17 10:24 600 MG Ipratropium [place] (Atrovent 0.02% 0.5MG/2.5ML Neb) 0.5 mg QIDR INH 10/24/17 12:00 11/23/17 11:59 10/31/17 11:11 0.5 MG Levalbuterol (Xopenex 1.25MG/ 0.5ML Neb) 1.25 mg QIDR INH 10/24/17 12:00 11/23/17 11:59 10/31/17 11:11 1.25 MG Methylprednisolone Sodium Succinate 40 mg/Syringe 0.64 ml @ 1.5 mls/min Q8 IV 10/27/17 14:00 11/26/17 13:59 10/31/17 06:08 1.5 MLS/MIN Lorazepam 0.5 mg/ Syringe 1 ml @ 0.5 mls/min Q6 PRN IV 10/28/17 12:30 11/27/17 12:29 10/31/17 10:51 0.5 MLS/MIN Nystatin (Mycostatin Susp) 5 ml QID PO 10/28/17 17:00 11/07/17 16:59 10/31/17 13:08 5 ML Ceftriaxone Sodium 1 gm/ Dextrose 50 ml @ 100 mls/hr Q24H IV 10/29/17 10:00 11/05/17 09:59 10/31/17 10:24 100 MLS/HR Menthol (Nice Chari) 1 chari PRN PRN CHARI 10/31/17 00:45 11/30/17 00:44 Enteral Nutritional Formula (Boost Glucose Control) 1 can DAILY PO 10/31/17 09:00 11/30/17 08:59 10/31/17 10:23 1 CAN Objective Vital Signs Date Time Temp Pulse Resp B/P (MAP) Pulse Ox O2 Delivery O2 Flow Rate FiO2 10/31/17 12:30 Nasal Cannula 2.0 10/31/17 11:11 84 20 96 Nasal Cannula 2.0 10/31/17 08:01 36.5 75 20 144/72 (96) 98 Nasal Cannula 2.0 10/31/17 07:58 Nasal Cannula 3.0 10/31/17 07:18 84 20 96 Nasal Cannula 2.0 10/30/17 23:55 99 Nasal Cannula 2.0 10/30/17 23:32 36.6 80 18 105/69 (81) 99 Nasal Cannula 2.0 10/30/17 21:57 85 122/66 (84) 10/30/17 19:57 82 20 98 Nasal Cannula 2.0 10/30/17 15:54 36.5 83 20 97/60 (72) 93 Nasal Cannula 2.0 10/30/17 15:30 Nasal Cannula 3.0 10/30/17 15:06 84 20 98 Nasal Cannula 3.0 Physical Exam General Appearance: WD/WN, no apparent distress Eyes: normal inspection, EOMI, sclerae normal ENT: normal ENT inspection, hearing grossly normal, pharynx normal Neck: supple, no adenopathy, no JVD, trachea midline Respiratory/Chest: chest non-tender, no respiratory distress, no accessory muscle use, + rhonchi Cardiovascular: regular rate, rhythm, no edema, no gallop, no JVD, no murmur Abdomen: normal bowel sounds, non tender, soft, no organomegaly Extremities: normal range of motion, non-tender, normal inspection, no pedal edema, no calf tenderness Neurologic/Psychiatric: 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 service 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 II-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 nml as tested, alert, normal mood/affect, oriented x 3, + motor weakness Skin: normal color, warm/dry, no rash Laboratory Results Last 24 Hours Test 10/30/17 16:58 10/30/17 20:29 Bedside Glucose 158 mg/dl 202 mg/dl Assessment and Plan 72 y/o female admitted on 10/22 with influenza and influenza caused COPD exacerbation worsening shortness of breath Acute on chronic respiratory failure secondary to combination of COPD exacerbation and flu acute component resolved, breathing comfortably on 3L NC again today CXR on 10/28 with right LL infiltrate, treated with Rocephin for 3 days, change to Cefdinir for 3 more days eased work of breathing with Ativan, will continue PRN start Prednisone 40mg daily tomorrow continue scheduled nebulizers, causing some tachycardia pulmonology following continue pulmonary toilet, flutter valve Possible Pneumonia after influenza levaquin switched to Rocephin due to prolonged QT continue for 7 days, change to Cefdinir tomorrow AM for 3 more days Influenza A: completed 5 days of Tamiflu, off precautions, no further treatment 2 episodes of nonsustained V. tach, road monkey seeing patient, watch and no medicine changes , no episodes for 3 days Show bradycardia , s/p biventricular ICD--resolving Acute on chronic diastolic HF Continue home dose Lasix 40 mg PO qd Continue lisinopril, carvedilol Daily weights, I's & O's GI and DVT prophylaxis is covered PT/OT evaluations, patient refusing, told her she needs to comply anticipate discharge once PT/OT completed, ambulated 60 feet today, did well with OT can likely go home but not medically stable yet Continued [facility] stay due to: multiple IV medications needed Discharge planning: home with home health (?), uncertain
[2017-10-31] MEDS: hydrOXYzine HCL 25 MG TAB PO PRN (14:16)
[2017-10-31] MEDS: PRAMIPEXOLE DIHYDROCHLORIDE 0.25MG TAB PO SCH (20:56)
[2017-10-31] MEDS: ENOXAPARIN 30 MG/0.3 ML SYR SC SCH (20:56)
[2017-10-31] MEDS: ASPIRIN 81 MG ECTAB PO SCH (20:57)
[2017-10-31] MEDS: EZETIMIBE 10MG TAB PO SCH (20:57)
[2017-10-31] MEDS: ATORVASTATIN 40 MG TAB PO SCH (20:57)
[2017-11-01] VITALS (9 sets, daily range): BP systolic 101–126; BP diastolic 46–70; PULSE 60–68; TEMP 36.5–37; O2SAT 94–100
[2017-11-01] MEDS: IPRATROPIUM BROMIDE NEB SOLN 0.02% 2.5 ML VIAL INH SCH ×4 (07:36→19:54)
[2017-11-01] MEDS: LEVALBUTEROL 1.25MG/0.5ML NEB INH SCH ×4 (07:37→19:54)
[2017-11-01] MEDS: BOOST GLUCOSE CONTROL PO SCH (08:52)
[2017-11-01] MEDS: SERTRALINE HCL 50 MG TAB PO SCH (08:54)
[2017-11-01] MEDS: GUAIFENESIN 600 MG TABCR PO SCH ×2 (08:54→20:38)
[2017-11-01] MEDS: FLUTICASONE/SALMETEROL (ADVAIR) 500/50 INH 14 PUFF INH SCH ×2 (08:54→20:38)
[2017-11-01] MEDS: CEFDINIR 300 MG CAP PO SCH ×2 (08:55→20:38)
[2017-11-01] MEDS: FUROSEMIDE 40 MG TAB PO SCH (08:55)
[2017-11-01] MEDS: LISINOPRIL 5 MG TAB PO SCH (08:55)
[2017-11-01] MEDS: NYSTATIN SUSP 500,000 U/5 ML UDC PO SCH ×4 (08:56→20:38)
[2017-11-01] MEDS: CARVEDILOL 12.5 MG TAB PO SCH ×2 (08:57→20:38)
[2017-11-01] MEDS: CLOPIDOGREL BISULFATE 75 MG TAB PO SCH (08:57)
[2017-11-01] MEDS: POTASSIUM CHLORIDE 20 MEQ TABCR PO SCH (08:58)
[2017-11-01] MEDS: INSULIN ASPART 100 UNITS/ML 3 ML PEN SC SCH ×4 (09:06→20:48)
[2017-11-01] MEDS: LORAZEPAM INJ 0.5 MG in SYRINGE 0.75 ML IV PRN ×2 (09:27→18:44)
--- NOTE | 2017-11-01 09:47 | Progress Note ---
Subjective Date of Service: Nov 01, 2017. Subjective Pt evaluation today including: conversation w/ patient, physical exam, review of inpatient medication list Pain: no pain PO Intake: adequate Voiding: no voiding problems getting around using walker, feels weak, she still refuses home PT, home nursing feels like her breathing is close to baseline she would not have a ride until late this evening told her that it would be better to d/c her in the morning, make sure she gets home and is settled she agreed with this plan Problem List Medical Problems: (1) Acute asthma exacerbation Status: Acute (2) Acute bronchitis Status: Acute (3) Acute [place] Status: Acute (4) Anemia Status: Acute (5) CHF (congestive heart failure) Status: Acute (6) CHF (congestive heart failure) Status: Acute (7) CHF (congestive heart failure) Status: Acute (8) COPD (chronic obstructive pulmonary disease) Status: Acute (9) Elevated troponin Status: Acute (10) Facial contusion Status: Acute (11) Hyponatremia Status: Acute (12) Hypoxia Status: Acute (13) Influenza Status: Acute (14) Intracranial bleeding Status: Acute (15) Intractable nausea and vomiting Status: Acute (16) Mesenteric ischemia Status: Acute (17) Mesenteric ischemia Status: Acute (18) Multiple contusions Status: Acute (19) Nausea Status: Acute (20) Pulmonary edema Status: Acute (21) Pulmonary edema Status: Acute (22) Respiratory distress Status: Acute (23) Respiratory failure Status: Acute (24) SOB (shortness of breath) Status: Acute (25) Syncope Status: Acute Review of Systems Constitutional: + weakness, + fatigue Respiratory: + cough, + dyspnea on exertion All Other Systems: Reviewed and Negative Medications Current Inpatient Medications Medications (Trade) Dose Ordered Sig/Osmani Route Start Time Stop Time Status Last Admin Dose Admin Enoxaparin Sodium (Lovenox Inj) 30 mg QPM SC 10/22/17 21:00 11/21/17 20:59 10/31/17 20:56 30 MG Acetaminophen (Tylenol Tab) 650 mg Q4H PRN PO 10/22/17 09:15 11/21/17 09:14 Al Hydrox/Mg Hydrox/Simethicone (Maalox Max Susp) 15 ml Q4H PRN PO 10/22/17 09:15 11/21/17 09:14 Magnesium Hydroxide (Milk Of Magnesia Susp) 30 ml Q12H PRN PO 10/22/17 09:15 11/21/17 09:14 Ondansetron HCl (Zofran Inj) 4 mg Q6H PRN IV 10/22/17 09:15 11/21/17 09:14 Polyethylene (Miralax Powder Packet) 17 gm DAILY PRN PO 10/22/17 09:15 11/21/17 09:14 Aspirin (Ecotrin Tab) 81 mg QPM PO 10/22/17 21:00 11/21/17 20:59 10/31/17 20:57 81 MG Atorvastatin Calcium (Lipitor Tab) 80 mg HS PO 10/22/17 21:00 11/21/17 20:59 10/31/17 20:57 80 MG Carvedilol (Coreg Tab) 12.5 mg BID PO 10/22/17 21:00 11/21/17 20:59 11/01/17 08:57 12.5 MG Clopidogrel Bisulfate (plAVix TAB) 75 mg QAM PO 10/23/17 09:00 11/22/17 08:59 11/01/17 08:57 75 MG EZETIMIBE (Zetia Tab) 10 mg HS PO 10/22/17 21:00 11/21/17 20:59 10/31/17 20:57 10 MG Salmeterol Xinafoate/ Fluticasone (Advair Diskus 500/50 Inh) 1 puff BID INH 10/22/17 21:00 11/21/17 20:59 11/01/17 08:54 1 PUFF Furosemide (Lasix Tab) 40 mg DAILY PO 10/23/17 09:00 11/22/17 08:59 Future hold 11/01/17 08:55 40 MG Hydroxyzine HCl (Vistaril Tab) 25 mg BID PRN PO 10/22/17 09:15 11/21/17 09:14 10/31/17 14:16 25 MG Lisinopril (Zestril Tab) 5 mg QAM PO 10/23/17 09:00 11/22/17 08:59 11/01/17 08:55 5 MG Pramipexole Dihydrochloride (miraPEX TAB) 0.25 mg HS PO 10/22/17 21:00 11/21/17 20:59 10/31/17 20:56 0.25 MG Sertraline HCl (Zoloft Tab) 50 mg QAM PO 10/23/17 09:00 11/22/17 08:59 11/01/17 08:54 50 MG Insulin Aspart (novoLOG ASPART) SLIDING SCALE If C... ACHS SC 10/22/17 16:15 11/21/17 16:14 11/01/17 09:06 9 UNITS Glucose (Glucose 40% Gel) 15-30 GRAMS 15 GRAMS... UD PRN PO 10/22/17 10:00 11/21/17 09:59 Glucose (Glucose Chew Tab) 4-8 Tablets 4 Tabl... UD PRN PO 10/22/17 10:00 11/21/17 09:59 Dextrose (Dextrose 50% 50ML Syringe) 25-50ML OF 50% DW IV FOR... UD PRN IV 10/22/17 10:00 11/21/17 09:59 Glucagon (Glucagon Inj) 1 mg UD PRN SQ 10/22/17 10:00 11/21/17 09:59 Potassium Chloride (Klor-Con Tab) 20 meq QAM PO 10/23/17 09:00 11/22/17 08:59 11/01/17 08:58 20 MEQ Guaifenesin (Mucinex Contr Rel Tab) 600 mg Q12 PO 10/23/17 21:00 11/22/17 20:59 11/01/17 08:54 600 MG Ipratropium [place] (Atrovent 0.02% 0.5MG/2.5ML Neb) 0.5 mg QIDR INH 10/24/17 12:00 11/23/17 11:59 11/01/17 07:36 0.5 MG Levalbuterol (Xopenex 1.25MG/ 0.5ML Neb) 1.25 mg QIDR INH 10/24/17 12:00 11/23/17 11:59 11/01/17 07:37 1.25 MG Lorazepam 0.5 mg/ Syringe 1 ml @ 0.5 mls/min Q6 PRN IV 10/28/17 12:30 11/27/17 12:29 11/01/17 09:27 0.5 MLS/MIN Nystatin (Mycostatin Susp) 5 ml QID PO 10/28/17 17:00 11/07/17 16:59 11/01/17 08:56 5 ML Menthol (Nice Chari) 1 chari PRN PRN CHARI 10/31/17 00:45 11/30/17 00:44 Enteral Nutritional Formula (Boost Glucose Control) 1 can DAILY PO 10/31/17 09:00 11/30/17 08:59 11/01/17 08:52 1 CAN Cefdinir (Omnicef Cap) 300 mg Q12 PO 11/01/17 09:00 11/08/17 08:59 11/01/17 08:55 300 MG Prednisone (PredniSONE TAB) 40 mg QAM PO 11/01/17 09:00 12/01/17 08:59 11/01/17 08:57 40 MG Objective Vital Signs Date Time Temp Pulse Resp B/P (MAP) Pulse Ox O2 Delivery O2 Flow Rate FiO2 11/01/17 07:51 36.6 65 18 109/67 (81) 100 Nasal Cannula 2.0 11/01/17 07:36 66 18 99 Nasal Cannula 2.0 11/01/17 07:20 Nasal Cannula 2.0 11/01/17 01:26 95 Nasal Cannula 2.0 30 10/31/17 23:56 36.7 60 17 117/66 (83) 96 Nasal Cannula 2.0 10/31/17 20:58 82 125/70 (88) 10/31/17 19:08 82 18 95 Nasal Cannula 2.0 10/31/17 16:16 36.5 75 18 115/63 (80) 96 Nasal Cannula 2.0 10/31/17 15:14 75 20 98 Nasal Cannula 2.0 10/31/17 12:30 Nasal Cannula 2.0 10/31/17 11:11 84 20 96 Nasal Cannula 2.0 Physical Exam General Appearance: no apparent distress, + thin Eyes: normal inspection, EOMI, sclerae normal ENT: normal ENT inspection, hearing grossly normal, pharynx normal Neck: supple, no adenopathy, no JVD, trachea midline Respiratory/Chest: chest non-tender, no respiratory distress, no accessory muscle use, + decreased breath sounds, + rhonchi Cardiovascular: regular rate, rhythm, no edema, no gallop, no JVD, no murmur Abdomen: normal bowel sounds, non tender, soft, no organomegaly Extremities: normal range of motion, non-tender, normal inspection, no pedal edema, no calf tenderness Neurologic/Psychiatric: self contained behavior unit teacher II-XII nml as tested, alert, normal mood/affect, oriented x 3, + motor weakness (generalized) Skin: normal color, warm/dry, no rash Lymphatic: no adenopathy Laboratory Results Last 24 Hours Test 10/31/17 12:46 10/31/17 17:08 10/31/17 20:53 11/01/17 08:25 Bedside Glucose 234 mg/dl 199 mg/dl 175 mg/dl 159 mg/dl Assessment and Plan 72 y/o female admitted on 10/22 with influenza and influenza caused COPD exacerbation worsening shortness of breath Acute on chronic respiratory failure secondary to combination of COPD exacerbation and flu acute component resolved, breathing comfortably on 2-3L NC every day CXR on 10/28 with right LL infiltrate, treated with Rocephin for 3 days, change to Cefdinir for 3 more days, done on 11/03 eased work of breathing with Ativan, will continue PRN start Prednisone 40mg daily today, will taper slowly given severity of her chronic lung disease continue scheduled nebulizers, causing some tachycardia pulmonology following continue pulmonary toilet, flutter valve Possible Pneumonia after influenza levaquin switched to Rocephin due to prolonged QT continue for 7 days, changed to Cefdinir, finish on 11/03 Influenza A: completed 5 days of Tamiflu, off precautions, no further treatment 2 episodes of nonsustained V. tach, scratch polisher seeing patient, watch and no medicine changes , no episodes for 3 days Show bradycardia , s/p biventricular ICD--resolving Acute on chronic diastolic HF Continue home dose Lasix 40 mg PO qd Continue lisinopril, carvedilol Daily weights, I's & O's GI and DVT prophylaxis is covered PT/OT evaluations, patient refusing, told her she needs to comply d/c to home tomorrow morning when family can come get her she refuses home PT, refuses home nursing checks, refuses to consider rehab Continued [facility] stay due to: multiple IV medications needed Discharge planning: home with home health (?), uncertain
[2017-11-01] MEDS: ASPIRIN 81 MG ECTAB PO SCH (20:38)
[2017-11-01] MEDS: EZETIMIBE 10MG TAB PO SCH (20:38)
[2017-11-01] MEDS: ATORVASTATIN 40 MG TAB PO SCH (20:38)
[2017-11-01] MEDS: PRAMIPEXOLE DIHYDROCHLORIDE 0.25MG TAB PO SCH (20:38)
[2017-11-01] MEDS: ENOXAPARIN 30 MG/0.3 ML SYR SC SCH (20:39)
[2017-11-02] VITALS (10 sets, daily range): BP systolic 108–121; BP diastolic 52–67; PULSE 59–71; TEMP 36.4–36.6; O2SAT 90–100
[2017-11-02] MEDS: IPRATROPIUM BROMIDE NEB SOLN 0.02% 2.5 ML VIAL INH SCH ×6 (01:12→19:19)
[2017-11-02] MEDS: LEVALBUTEROL 1.25MG/0.5ML NEB INH SCH ×6 (01:13→19:19)
[2017-11-02] MEDS: LORAZEPAM INJ 0.5 MG in SYRINGE 0.75 ML IV PRN ×3 (01:16→16:07)
[2017-11-02 07:00] LABS: HEMATOCRIT 36.2 % (37-47); HEMOGLOBIN 11.8 g/dL (12.0-16.0); MEAN CORPUSCULAR HEMOGLOBIN 29.4 pg (25-34); MEAN CORPUSCULAR HGB CONC 32.6 g/dl (32-36); MEAN PLATELET VOLUME 10.1 fL (7.4-10.4); PLATELET COUNT 178 K/uL (130-400); RED CELL DISTRIBUTION WIDTH CV 16.9 % (11.5-14.5); RED CELL DISTRIBUTION WIDTH SD 56.1 fL (36.4-46.3)
[2017-11-02 07:28] LABS: CREATININE 0.78 mg/dl (0.60-1.20)
[2017-11-02] MEDS: FLUTICASONE/SALMETEROL (ADVAIR) 500/50 INH 14 PUFF INH SCH ×2 (08:56→20:43)
[2017-11-02] MEDS: BOOST GLUCOSE CONTROL PO SCH (08:56)
[2017-11-02] MEDS: NYSTATIN SUSP 500,000 U/5 ML UDC PO SCH ×4 (08:57→20:42)
[2017-11-02] MEDS: GUAIFENESIN 600 MG TABCR PO SCH ×2 (08:58→20:41)
[2017-11-02] MEDS: CARVEDILOL 12.5 MG TAB PO SCH ×2 (08:58→20:41)
[2017-11-02] MEDS: CLOPIDOGREL BISULFATE 75 MG TAB PO SCH (08:58)
[2017-11-02] MEDS: SERTRALINE HCL 50 MG TAB PO SCH (08:58)
[2017-11-02] MEDS: POTASSIUM CHLORIDE 20 MEQ TABCR PO SCH (08:59)
[2017-11-02] MEDS: CEFDINIR 300 MG CAP PO SCH ×2 (08:59→20:42)
[2017-11-02] MEDS: FUROSEMIDE 40 MG TAB PO SCH (08:59)
[2017-11-02] MEDS: LISINOPRIL 5 MG TAB PO SCH (08:59)
[2017-11-02] MEDS: INSULIN ASPART 100 UNITS/ML 3 ML PEN SC SCH ×4 (09:21→20:49)
--- NOTE | 2017-11-02 15:18 | Progress Note ---
Subjective Date of Service: Nov 02, 2017. Subjective Pt evaluation today including: conversation w/ patient, physical exam, lab review, review of inpatient medication list Pain: no pain PO Intake: adequate Voiding: no voiding problems patient upset, breathing feels worse today was up last night, required two breathing treatments another breathing treatment this AM as I was seeing her + wheezing labs stable on 2L and oxygen saturations in the high 90's, no hypoxia Problem List Medical Problems: (1) Acute asthma exacerbation Status: Acute (2) Acute bronchitis Status: Acute (3) Acute [place] Status: Acute (4) Anemia Status: Acute (5) CHF (congestive heart failure) Status: Acute (6) CHF (congestive heart failure) Status: Acute (7) CHF (congestive heart failure) Status: Acute (8) COPD (chronic obstructive pulmonary disease) Status: Acute (9) Elevated troponin Status: Acute (10) Facial contusion Status: Acute (11) Hyponatremia Status: Acute (12) Hypoxia Status: Acute (13) Influenza Status: Acute (14) Intracranial bleeding Status: Acute (15) Intractable nausea and vomiting Status: Acute (16) Mesenteric ischemia Status: Acute (17) Mesenteric ischemia Status: Acute (18) Multiple contusions Status: Acute (19) Nausea Status: Acute (20) Pulmonary edema Status: Acute (21) Pulmonary edema Status: Acute (22) Respiratory distress Status: Acute (23) Respiratory failure Status: Acute (24) SOB (shortness of breath) Status: Acute (25) Syncope Status: Acute Review of Systems Constitutional: + weakness, + fatigue Respiratory: + cough, + wheezing, + shortness of breath, + dyspnea on exertion Neurologic: + weakness Psychiatric: + anxiety All Other Systems: Reviewed and Negative Medications Current Inpatient Medications Medications (Trade) Dose Ordered Sig/Osmani Route Start Time Stop Time Status Last Admin Dose Admin Enoxaparin Sodium (Lovenox Inj) 30 mg QPM SC 10/22/17 21:00 11/21/17 20:59 11/01/17 20:39 30 MG Acetaminophen (Tylenol Tab) 650 mg Q4H PRN PO 10/22/17 09:15 11/21/17 09:14 Al Hydrox/Mg Hydrox/Simethicone (Maalox Max Susp) 15 ml Q4H PRN PO 10/22/17 09:15 11/21/17 09:14 Magnesium Hydroxide (Milk Of Magnesia Susp) 30 ml Q12H PRN PO 10/22/17 09:15 11/21/17 09:14 Ondansetron HCl (Zofran Inj) 4 mg Q6H PRN IV 10/22/17 09:15 11/21/17 09:14 Polyethylene (Miralax Powder Packet) 17 gm DAILY PRN PO 10/22/17 09:15 11/21/17 09:14 Aspirin (Ecotrin Tab) 81 mg QPM PO 10/22/17 21:00 11/21/17 20:59 11/01/17 20:38 81 MG Atorvastatin Calcium (Lipitor Tab) 80 mg HS PO 10/22/17 21:00 11/21/17 20:59 11/01/17 20:38 80 MG Carvedilol (Coreg Tab) 12.5 mg BID PO 10/22/17 21:00 11/21/17 20:59 11/02/17 08:58 12.5 MG Clopidogrel Bisulfate (plAVix TAB) 75 mg QAM PO 10/23/17 09:00 11/22/17 08:59 11/02/17 08:58 75 MG EZETIMIBE (Zetia Tab) 10 mg HS PO 10/22/17 21:00 11/21/17 20:59 11/01/17 20:38 10 MG Salmeterol Xinafoate/ Fluticasone (Advair Diskus 500/50 Inh) 1 puff BID INH 10/22/17 21:00 11/21/17 20:59 11/02/17 08:56 1 PUFF Furosemide (Lasix Tab) 40 mg DAILY PO 10/23/17 09:00 11/22/17 08:59 Future hold 11/02/17 08:59 40 MG Hydroxyzine HCl (Vistaril Tab) 25 mg BID PRN PO 10/22/17 09:15 11/21/17 09:14 10/31/17 14:16 25 MG Lisinopril (Zestril Tab) 5 mg QAM PO 10/23/17 09:00 11/22/17 08:59 11/02/17 08:59 5 MG Pramipexole Dihydrochloride (miraPEX TAB) 0.25 mg HS PO 10/22/17 21:00 2/15/18 20:59 11/01/17 20:38 0.25 MG Sertraline HCl (Zoloft Tab) 50 mg QAM PO 10/23/17 09:00 11/22/17 08:59 11/02/17 08:58 50 MG Insulin Aspart (novoLOG ASPART) SLIDING SCALE If C... ACHS SC 10/22/17 16:15 11/21/17 16:14 11/02/17 13:24 3 UNITS Glucose (Glucose 40% Gel) 15-30 GRAMS 15 GRAMS... UD PRN PO 10/22/17 10:00 11/21/17 09:59 Glucose (Glucose Chew Tab) 4-8 Tablets 4 Tabl... UD PRN PO 10/22/17 10:00 11/21/17 09:59 Dextrose (Dextrose 50% 50ML Syringe) 25-50ML OF 50% DW IV FOR... UD PRN IV 10/22/17 10:00 11/21/17 09:59 Glucagon (Glucagon Inj) 1 mg UD PRN SQ 10/22/17 10:00 11/21/17 09:59 Potassium Chloride (Klor-Con Tab) 20 meq QAM PO 10/23/17 09:00 11/22/17 08:59 11/02/17 08:59 20 MEQ Guaifenesin (Mucinex Contr Rel Tab) 600 mg Q12 PO 10/23/17 21:00 11/22/17 20:59 11/02/17 08:58 600 MG Ipratropium [place] (Atrovent 0.02% 0.5MG/2.5ML Neb) 0.5 mg QIDR INH 10/24/17 12:00 11/23/17 11:59 11/02/17 11:13 0.5 MG Levalbuterol (Xopenex 1.25MG/ 0.5ML Neb) 1.25 mg QIDR INH 10/24/17 12:00 11/23/17 11:59 11/02/17 11:13 1.25 MG Lorazepam 0.5 mg/ Syringe 1 ml @ 0.5 mls/min Q6 PRN IV 10/28/17 12:30 11/27/17 12:29 11/02/17 08:53 0.5 MLS/MIN Nystatin (Mycostatin Susp) 5 ml QID PO 10/28/17 17:00 11/07/17 16:59 11/02/17 08:57 5 ML Menthol (Nice Chari) 1 chari PRN PRN HCARI 10/31/17 00:45 11/30/17 00:44 Enteral Nutritional Formula (Boost Glucose Control) 1 can DAILY PO 10/31/17 09:00 11/30/17 08:59 11/02/17 08:56 1 CAN Cefdinir (Omnicef Cap) 300 mg Q12 PO 11/01/17 09:00 11/08/17 08:59 11/02/17 08:59 300 MG Prednisone (PredniSONE TAB) 40 mg QAM PO 11/01/17 09:00 12/01/17 08:59 11/02/17 08:58 40 MG Objective Vital Signs Date Time Temp Pulse Resp B/P (MAP) Pulse Ox O2 Delivery O2 Flow Rate FiO2 11/02/17 11:13 71 14 96 Nasal Cannula 2.0 11/02/17 08:20 Nasal Cannula 2.0 11/02/17 07:20 68 18 99 Nasal Cannula 2.0 11/02/17 06:23 36.6 62 20 121/67 (85) 93 Nasal Cannula 2.0 11/02/17 06:03 68 24 90 Nasal Cannula 2.0 11/02/17 01:13 63 18 99 Nasal Cannula 2.0 11/02/17 00:15 Nasal Cannula 2.0 11/01/17 23:02 36.5 68 20 126/70 (88) 94 Nasal Cannula 2.0 11/01/17 20:34 60 113/46 (68) 11/01/17 19:54 66 18 97 Nasal Cannula 2.0 11/01/17 17:07 Nasal Cannula 2.0 11/01/17 16:05 62 18 97 Nasal Cannula 2.0 11/01/17 15:16 37.0 66 18 101/46 (64) 98 Nasal Cannula 3.0 Physical Exam General Appearance: no apparent distress, + thin Eyes: normal inspection, EOMI, sclerae normal ENT: normal ENT inspection, hearing grossly normal, pharynx normal Neck: supple, no adenopathy, no JVD, trachea midline Respiratory/Chest: chest non-tender, no respiratory distress, no accessory muscle use, + decreased breath sounds, + rhonchi, + wheezing Cardiovascular: regular rate, rhythm, no edema, no gallop, no JVD, no murmur Abdomen: normal bowel sounds, non tender, soft, no organomegaly Extremities: normal range of motion, non-tender, normal inspection, no pedal edema, no calf tenderness, pelvis stable Neurologic/Psychiatric: geography head II-XII nml as tested, alert, normal mood/affect, oriented x 3, + motor weakness (generalized) Skin: normal color, warm/dry, no rash Laboratory Results Last 24 Hours Test 11/01/17 17:23 11/01/17 20:27 11/02/17 06:38 Bedside Glucose 155 mg/dl 225 mg/dl White Blood Count 9.80 K/uL Red Blood Count 4.02 M/uL Hemoglobin 11.8 g/dL Hematocrit 36.2 % Mean Corpuscular Volume 90.0 fL Mean Corpuscular Hemoglobin 29.4 pg Mean Corpuscular Hemoglobin Concent 32.6 g/dl RDW Standard Deviation 56.1 fL RDW Coefficient of Variation 16.9 % Platelet Count 178 K/uL Mean Platelet Volume 10.1 fL Creatinine 0.78 mg/dl Est Creatinine Clear Calc Drug Dose 48.0 ml/min Estimated GFR () 87.4 Estimated GFR (Non- 75.4 Assessment and Plan 72 y/o female admitted on 10/22 with influenza and influenza caused COPD exacerbation worsening shortness of breath Acute on chronic respiratory failure secondary to combination of COPD exacerbation and flu acute component resolved, breathing comfortably on 2L NC every day CXR on 10/28 with right LL infiltrate, treated with Rocephin for 3 days, change to Cefdinir for 3 more days, done on 11/03 eased work of breathing with Ativan, will continue PRN start Prednisone 40mg daily on 11/01, more wheezing and distress? will give additional 40mg this afternoon, change to 60mg every morning continue scheduled nebulizers, causing some tachycardia Possible Pneumonia after influenza levaquin switched to Rocephin due to prolonged QT continue for 7 days, changed to Cefdinir, finish on 11/03 Influenza A: completed 5 days of Tamiflu, off precautions, no further treatment 2 episodes of nonsustained V. tach, social services seeing patient, watch and no medicine changes , no episodes for 3 days Show bradycardia , s/p biventricular ICD--resolving Acute on chronic diastolic HF Continue home dose Lasix 40 mg PO qd Continue lisinopril, carvedilol Daily weights, I's & O's examined euvolemic will check CXR to be sure there is no pulmonary edema GI and DVT prophylaxis is covered PT/OT evaluations, patient refusing, told her she needs to comply patient not ready for discharge at this time, would come right back to the hospital Continued [facility] stay due to: multiple IV medications needed Discharge planning: home with home health (?), uncertain
--- NOTE | 2017-11-02 16:25 | DIAGNOSTIC IMAGING REPORT ---
CHEST ONE VIEW PORTABLE HISTORY: dyspnea COMPARISON: Chest 10/30/2017. FINDINGS: Left-sided dual-chamber pacemaker/defibrillator. The heart remains mildly enlarged. No pneumothorax. No pleural effusions. The interstitial thickening has improved. This favors resolving pulmonary edema. No new focal lung consolidations. Patchy bibasilar densities have improved. IMPRESSION: Improvement in the pulmonary vasculature congestion and patchy bibasilar densities. Electronically signed by: Alverto Pereira M.D. 11/02/2017 4:24 PM Dictated Date/Time: 11/02/2017 4:23 PM
[2017-11-02] MEDS: ENOXAPARIN 30 MG/0.3 ML SYR SC SCH (20:41)
[2017-11-02] MEDS: PRAMIPEXOLE DIHYDROCHLORIDE 0.25MG TAB PO SCH (20:42)
[2017-11-02] MEDS: ASPIRIN 81 MG ECTAB PO SCH (20:42)
[2017-11-02] MEDS: EZETIMIBE 10MG TAB PO SCH (20:42)
[2017-11-02] MEDS: ATORVASTATIN 40 MG TAB PO SCH (20:42)
[2017-11-02] MEDS: hydrOXYzine HCL 25 MG TAB PO PRN (20:50)
[2017-11-03 07:38] VITALS: BP 115/56; PULSE 62; TEMP 36.5; O2SAT 100
[2017-11-03] MEDS: IPRATROPIUM BROMIDE NEB SOLN 0.02% 2.5 ML VIAL INH SCH ×2 (07:49→11:37)
[2017-11-03 07:50] VITALS: PULSE 62; O2SAT 99
[2017-11-03] MEDS: LEVALBUTEROL 1.25MG/0.5ML NEB INH SCH ×2 (07:50→11:37)
[2017-11-03] MEDS: SERTRALINE HCL 50 MG TAB PO SCH (09:08)
[2017-11-03] MEDS: CLOPIDOGREL BISULFATE 75 MG TAB PO SCH (09:08)
[2017-11-03] MEDS: FLUTICASONE/SALMETEROL (ADVAIR) 500/50 INH 14 PUFF INH SCH (09:08)
[2017-11-03] MEDS: CARVEDILOL 12.5 MG TAB PO SCH (09:09)
[2017-11-03] MEDS: LISINOPRIL 5 MG TAB PO SCH (09:10)
[2017-11-03] MEDS: GUAIFENESIN 600 MG TABCR PO SCH (09:10)
[2017-11-03] MEDS: FUROSEMIDE 40 MG TAB PO SCH (09:11)
[2017-11-03] MEDS: BOOST GLUCOSE CONTROL PO SCH (09:12)
[2017-11-03] MEDS: CEFDINIR 300 MG CAP PO SCH (09:12)
[2017-11-03] MEDS: POTASSIUM CHLORIDE 20 MEQ TABCR PO SCH (09:12)
[2017-11-03] MEDS: NYSTATIN SUSP 500,000 U/5 ML UDC PO SCH ×3 (09:12→14:41)
[2017-11-03] MEDS: INSULIN ASPART 100 UNITS/ML 3 ML PEN SC SCH ×2 (09:31→13:10)
[2017-11-03] MEDS: LORAZEPAM INJ 0.5 MG in SYRINGE 0.75 ML IV PRN (09:49)
[2017-11-03 11:37] VITALS: PULSE 60; O2SAT 99
[2017-11-03] MEDS ORDERED: PRD20 PO (13:47)
[2017-11-03] MEDS ORDERED: LORA-741 PO (13:47)
[2017-11-03] MEDS ORDERED: NYSS5 PO (13:47)
--- NOTE | 2017-11-03 13:58 | Discharge Instructions ---
Discharge Instructions Date of Service Nov 03, 2017. Admission Reason for Admission: COPD exacerbation, influenza A and pneumonia Discharge Discharge Diagnosis / Problem: COPD exacerbation, Influenza A, pneumonia Discharge Goals Goal(s): Improve function, Improve disease control Activity Recommendations Activity Limitations: resume your previous activity Driving or Machine Use: no driving . Instructions / Follow-Up Instructions / Follow-Up Medications: - PREDNISONE: next dose due tomorrow morning, take 60mg (3 tablets) daily for 3 days, then decrease to 40mg (2 tablets) daily for 4 days then 30mg (1 1/2 tablets) for 4 days then 20mg daily for 4 days then 10mg daily for 4 days then stop - NYSTATIN: antifungal for oral thrush associated with antibiotics use, 5mL by mouth four times a day for 7 more days - ATIVAN: use this to help with any anxiety about having shortness of breath, used in the hospital and it seemed to help when you would get worked up Influenza A: completed 5 days of Tamiflu, no further treatment needed Pneumonia: 7 day of antibiotics completed in the hospital, no further treatment needed, no fever, WBC normal COPD exacerbation: still with faint wheezing posteriorly, need to complete a slow taper of Prednisone, see above continue to use Advair, inhaler and nebulizers as prescribed, can use the nebulizer every 4-6 hours as needed for shortness of breath continue to use 2 liters of oxygen at all times As we discussed, it is my recommendation to go from the hospital to rehab, such as [facility], because I fear that you are not strong enough to be at home and you may fall. I do not want you to fall and suffer a serious injury, as we discussed, if you would have a serious fracture I do not feel that you would recover due to the severity of your lung disease. You will be discharged with home nursing checks and home physical therapy. Please call my case management office at any time if you change your mind about [facility] and want to be admitted. Call [phone], this is the direct line to my nurse navigator who can assist you in trying to get into [facility] from home. DO NOT walk without a walker while at home. Get rest. FOLLOW UP - call for appointment with Dr. Duncan to be seen within 5-7 days for hospital follow up for COPD, flu and pneumonia Current Hospital Diet Patient's current hospital diet: Diabetes Type 2 Diet, AHA Diet (Heart Healthy) Discharge Diet Recommended Diet: AHA Diet (Heart Healthy), Diabetes Type 2 Diet Pending Studies Studies pending at discharge: no Laboratory Results Hemoglobin A1c Test 10/22/17 07:15 Range/Units Estimated Average Glucose 131 mg/dl Hemoglobin A1c 6.2 H 4.5-5.6 % Medical Emergencies . Who to Call and When: Medical Emergencies: If at any time you feel your situation is an emergency, please call 911 immediately. . Non-Emergent Contact Non-Emergency issues call your: Primary Care Provider Call Non-Emergent contact if: you have a fever, you have any medication questions if your breathing is getting worse . . "Provider Documentation" section prepared by Kristopher Rayo. . VTE Core Measure Inpt VTE Proph given/why not?: Enoxaparin (Lovenox)SELINA, Reina Valencia, SCD's [place] Drug Monitoring Program Search Results: no issues identified
[2017-11-03 14:18] VITALS: BP 115/56; PULSE 60; TEMP 36.5; O2SAT 99
--- NOTE | 2017-11-04 16:16 | Discharge Summary ---
Discharge Summary Date of Service Nov 03, 2017. Discharge Summary Admission Date: Oct 22, 2017 at 09:23 Discharge Date: Nov 03, 2017 Discharge Disposition: Home with services Principal Diagnosis: Acute on chronic respiratory failure Problems/Secondary Diagnoses: Influenza A Pneumonia COPD exacerbation Immunizations: Have You Had Influenza Vaccine: Yes Influenza Vaccine Date: Oct 12, 2012 History of Tetanus Vaccine?: Unknown History of Pneumococcal: Unknown History of Hepatitis B Vaccine: No Procedures: none Consultations: Pulmonology PT/OT Medication Reconciliation New Medications: Lorazepam (Ativan) 0.5 Mg Tab 0.5 MG PO Q6H PRN for Anxiety, #30 TAB Nystatin (Nystatin) 5 Ml Susp 5 ML PO QID, #140 ML 0 Refills Prednisone (Prednisone) 20 Mg Tab 60 MG PO QAM, #29 TAB 0 Refills 60mg (3 tabs) daily x 3 days, then 40mg daily x 4 days then 30mg daily x 4 days then 20mg x 4 days then 10mg x 4 days Continued Medications: Aspirin (Aspirin Chewable) 81 Mg Chew 81 MG PO QPM, TAB Atorvastatin (Lipitor) 80 Mg Tab 80 MG PO HS, TAB Carvedilol (Coreg) 25 Mg Tab 12.5 MG PO BID, TAB Clopidogrel Bisulfate (Plavix) 75 Mg Tab 75 MG PO QAM, TAB Ezetimibe (Zetia) 10 Mg Tab 10 MG PO HS, TAB Fluticasone Prop/Salmeterol (Advair Diskus 500/50 60 Dose) 1 Ea Aerp 1 PUFFS INH BID, #180 Furosemide (Lasix) 40 Mg Tab 40 MG PO DAILY Hydroxyzine HCl (Hydroxyzine HCl) 25 Mg Tab 25 MG PO BID PRN for Anxiety Ipratropium-Albuterol (Combivent Respimat) 1 Aer Aer 1 PUFFS INH QID, INH Lisinopril (Lisinopril) 5 Mg Tab 5 MG PO QAM Pramipexole Dihydrochloride (Pramipexole Dihydrochlori) 0.25 Mg Tab 0.25 MG PO HS Sertraline (Zoloft) 50 Mg Tab 50 MG PO QAM, TAB Vitamins C & E (Vitamin C) 1 Cap Cap 1 CAP PO DAILY Discharge Exam Patient felt weak, had a controlled fall the day prior. Her breathing was stable. Had two separate long discussions with the patient and her daughter in law and then her daughter at the bedside. Discussed that from a pulmonary standpoint she was recovering, she was on oral medications and nebulizers, both could be done at home. Her oxygen levels were actually better than they had been before admission, 99% on 1L and in fact she did not even need oxygen. Explained that what she needed was inpatient rehab to work on her strength. Told her several times that it was my recommendation that she go directly from the hospital to rehab, either [facility] or at a SNF. She absolutely refused to consider it. She said she had a bad experience at [facility] when there before. She did now want to even think about going to a retirement. She agreed to home nursing and home PT visits. Explained that PT would only be a few times a week at best, not every day like at rehab. Explained that she was at high risk for falling, warned her that if she would have a serious fall and break her hip that it was my medical opinion that she would not survive due to how severe her lung disease it at baseline. Both conversations were held with her daughter in law and then with her daughter. They tried to convince her to go to rehab but she refused. They said ultimately it was her decision and they could not force her. The patient asked if she could stay another day and then go home. I explained that another night in the hospital was not going to change how weak she was. I provided her with the direct number to my nurse navigator if she would change her mind after getting home and realizing how weak she was, she could try to get into [facility] from home or the ED. Review of Systems: Constitutional: + weakness, + fatigue, No fever, No chills, No sweats, No weight loss, No problem reported Eyes: No worsening of vision, No eye pain, No redness, No discharge, No diplopia, No problem reported ENT: No hearing loss, No unusual epistaxis, No nasal symptoms, No sore throat, No tinnitus, No dental problems, No trouble swallowing, No problem reported Respiratory: + dyspnea on exertion, + dyspnea at rest, No cough, No sputum, No wheezing, No shortness of breath, No hemoptysis, No problem reported Cardiovascular: No chest pain, No orthopnea, No PND, No edema, No claudication, No palpitations, No problem reported Abdomen: No pain, No nausea, No vomiting, No diarrhea, No constipation, No GI bleeding, No problem reported Musculoskeletal: + joint pain (chronic), No muscle pain, No swelling, No calf pain, No problem reported Genitourinary - Female: No dysuria, No urinary frequency, No urinary urgency , No urinary incontinence, No urinary retention, No hematuria Neurologic: + weakness, + balance problems (requiring walker to steady herself), No memory loss, No paralysis, No numbness/tingling, No vertigo, No problem reported Psychiatric: + depression symptoms, + anxiety, No anhedonism, No insomnia, No substance abuse, No problem reported Endocrine: No fatigue, No excessive thirst, No excessive urination, No problem reported Hematologic / Lymphatic: No abnormal bleeding/bruising, No clotting problems , No swollen lymph nodes, No night sweats, No problem reported Integumentary: No rash, No itch, No new/changing skin lesions, No color change, No bleeding, No problem reported Physical Exam: General Appearance: no apparent distress, + thin Eyes: normal inspection, EOMI, sclerae normal ENT: normal ENT inspection, hearing grossly normal, pharynx normal Neck: supple, no adenopathy, no JVD, trachea midline Respiratory/Chest: chest non-tender, no respiratory distress, no accessory muscle use, + decreased breath sounds, + rhonchi (scattered), + wheezing (faint , posterior, present for a week) Cardiovascular: regular rate, rhythm, no edema, no gallop, no JVD, no murmur , normal peripheral pulses Abdomen / GI: normal bowel sounds, non tender, soft, no organomegaly Extremities: normal inspection, no calf tenderness, normal capillary refill , no pedal edema, normal range of motion, non-tender, pelvis stable Neurologic/Psychiatric: business development II-XII nml as tested, alert, normal mood/affect , normal reflexes, oriented x 3, + abnormal gait, + motor weakness Skin: normal color, warm/dry, no rash Hospital Course 72 y/o female admitted on 10/22 with influenza and influenza caused COPD exacerbation worsening shortness of breath Acute on chronic respiratory failure secondary to combination of COPD exacerbation and flu acute component resolved, breathing comfortably on 1L NC, actually at 99% and could be off oxygen completely CXR on 10/28 with right LL infiltrate, treated with Rocephin for 3 days, change to Cefdinir for 4 more days, done on 11/03 eased work of breathing with Ativan, will continue PRN, provided with script to use at home discharge on Prednisone 60mg daily with extended taper, feel that she may be steroid dependent due to severity of her disease follow up closely with PCP in 5-7 days, referral to pulmonology in next 2-3 weeks Possible Pneumonia after influenza levaquin switched to Rocephin due to prolonged QT completed 7 days, changed to Cefdinir, finished on 11/03 Influenza A: completed 5 days of Tamiflu, off precautions, no further treatment 2 episodes of nonsustained V. tach, band saw marker seeing patient, watch and no medicine changes , no episodes for almost 2 weeks Show bradycardia , s/p biventricular ICD--resolving Acute on chronic diastolic HF Continue home dose Lasix 40 mg PO qd Continue lisinopril, carvedilol Daily weights, I's & O's examined euvolemic on discharge most recent CXR showed no pulmonary edema GI and DVT prophylaxis is covered PT/OT evaluations, patient initially refusing, told her she needed to comply very weak with ambulation Patient felt weak, had a controlled fall the day prior. Her breathing was stable. Had two separate long discussions with the patient and her daughter in law and then her daughter at the bedside. Discussed that from a pulmonary standpoint she was recovering, she was on oral medications and nebulizers, both could be done at home. Her oxygen levels were actually better than they had been before admission, 99% on 1L and in fact she did not even need oxygen. Explained that what she needed was inpatient rehab to work on her strength. Told her several times that it was my recommendation that she go directly from the hospital to rehab, either [facility] or at a SNF. She absolutely refused to consider it. She said she had a bad experience at [facility] when there before. She did now want to even think about going to a retirement. She agreed to home nursing and home PT visits. Explained that PT would only be a few times a week at best, not every day like at rehab. Explained that she was at high risk for falling, warned her that if she would have a serious fall and break her hip that it was my medical opinion that she would not survive due to how severe her lung disease it at baseline. Both conversations were held with her daughter in law and then with her daughter. They tried to convince her to go to rehab but she refused. They said ultimately it was her decision and they could not force her. The patient asked if she could stay another day and then go home. I explained that another night in the hospital was not going to change how weak she was. I provided her with the direct number to my nurse navigator if she would change her mind after getting home and realizing how weak she was, she could try to get into [facility] from home or the ED. Discharged to home with support of her daughter Total Time Spent: Greater than 30 minutes This includes examination of the patient, discharge planning, medication reconciliation, and communication with other providers. Discharge Instructions Please refer to the electronic Patient Visit Report (Discharge Instructions) for additional information. Follow-Up Dr. Duncan in 5-7 days Additional Copies To RV. Edwards MD
== END 2017-11-03 15:05 | disposition home health service (06) | DRG 291 ==
LOC: EDBD 06:56 → C.EDB 06:57 → C.2E 09:23 → ENRESERV 11:43 → C.MSN 10-27 16:09
PROVIDERS: ADMIT Hospitalist; ATTEND Internal Medicine
DX: I13.0 Hypertensive heart and chronic kidney disease with heart failure and stage 1 through stage 4 chronic kidney disease, or unspecified chronic kidney disease (principal); J96.20 Acute and chronic respiratory failure, unspecified whether with hypoxia or hypercapnia; J10.08 Influenza due to other identified influenza virus with other specified pneumonia; I50.23 Acute on chronic systolic (congestive) heart failure; J18.9 Pneumonia, unspecified organism; J44.0 Chronic obstructive pulmonary disease with (acute) lower respiratory infection; J44.1 Chronic obstructive pulmonary disease with (acute) exacerbation; R64 Cachexia; Z68.1 Body mass index [BMI] 19.9 or less, adult; I47.2 Ventricular tachycardia; B37.0 Candidal stomatitis; I25.10 Atherosclerotic heart disease of native coronary artery without angina pectoris; E78.5 Hyperlipidemia, unspecified; I25.2 Old myocardial infarction; N18.3 Chronic kidney disease, stage 3 (moderate); D50.9 Iron deficiency anemia, unspecified; E11.22 Type 2 diabetes mellitus with diabetic chronic kidney disease; S91.311A Laceration without foreign body, right foot, initial encounter; G25.81 Restless legs syndrome; F17.200 Nicotine dependence, unspecified, uncomplicated; Z79.02 Long term (current) use of antithrombotics/antiplatelets; Z79.82 Long term (current) use of aspirin; Z79.899 Other long term (current) drug therapy; Z86.73 Personal history of transient ischemic attack (TIA), and cerebral infarction without residual deficits; Z88.2 Allergy status to sulfonamides; Z88.5 Allergy status to narcotic agent; W25.XXXA Contact with sharp glass, initial encounter

== ENCOUNTER 2017-11-04 13:38 | Observation (INO) | payer BC, OTHER ==
[~2017-11-04] VITALS: Ht 157.5 cm; Wt 113.4 kg
[~2017-11-04 13:38] MED LIST changes: +ATR25 PO; +FRS/40 PO; -GUAISYP4 PO; +LORA-741 PO; +NYSS5 PO; -POTA10CA28 PO; +PRD20 PO; +VITACAP26 PO
--- NOTE | 2017-11-04 16:17 | DIAGNOSTIC IMAGING REPORT ---
CHEST ONE VIEW PORTABLE CLINICAL HISTORY: Weakness COMPARISON STUDY: 11/02/2017 FINDINGS: The cardiac and mediastinal contours remain stable. There is a left subclavian dual-chamber pacer/defibrillator present. The heart is mildly enlarged. There are left basilar opacities, likely atelectatic. There is been resolution of the previously described pulmonary vascular congestion.[ The patient is hyperinflated. IMPRESSION: 1. Interval resolution of the previous described pulmonary vascular congestion 2. Left basilar opacities, likely atelectatic Electronically signed by: Micky Cutler M.D. 11/04/2017 4:16 PM Dictated Date/Time: 11/04/2017 4:15 PM
[2017-11-04 16:55] LABS: HEMATOCRIT 36.3 % (37-47); IG# 0.04 K/uL (0.00-0.02); LYMPH % 3.5 %; LYMPH ABS # 0.35 K/uL (1.2-3.4); MEAN CELL VOLUME 88.8 fL (80-100); MEAN CORPUSCULAR HEMOGLOBIN 29.3 pg (25-34); MEAN CORPUSCULAR HGB CONC 33.1 g/dl (32-36); MEAN PLATELET VOLUME 9.7 fL (7.4-10.4); MONO % 1.7 %; MONO ABS # 0.17 K/uL (0.11-0.59); NEUT % 94.4 %; PLATELET COUNT 195 K/uL (130-400); RED CELL DISTRIBUTION WIDTH CV 17.2 % (11.5-14.5); RED CELL DISTRIBUTION WIDTH SD 56.1 fL (36.4-46.3); WHITE BLOOD COUNT 9.96 K/uL (4.8-10.8)
[2017-11-04 17:02] LABS: PTT PATIENT 23.2 SECONDS (21.0-31.0)
[2017-11-04 17:11] LABS: ALBUMIN 2.8 gm/dl (3.4-5.0); ALT/SGPT 47 U/L (12-78); AST/SGOT 15 U/L (15-37); BLOOD UREA NITROGEN 47 mg/dl (7-18); CALCIUM 8.1 mg/dl (8.5-10.1); CARBON DIOXIDE 32 mmol/L (21-32); CREATININE 0.95 mg/dl (0.60-1.20); GLUCOSE 174 mg/dl (70-99); POTASSIUM 4.7 mmol/L (3.5-5.1); SODIUM 136 mmol/L (136-145)
[2017-11-04 17:23] LABS: ALKALINE PHOSPHATASE 90 U/L (45-117); TOTAL PROTEIN 5.9 gm/dl (6.4-8.2)
[2017-11-04] MEDS ORDERED: ASPIRIN 324 MG CHEW PO STA (17:26)
[2017-11-04] MEDS ORDERED: NITROGLYCERIN 0.4 MG SL PER TAB CHARGE SL PRN (18:45)
[2017-11-04] MEDS ORDERED: MAGNESIUM HYDROXIDE SUSP 30 ML UDC PO PRN (18:45)
[2017-11-04] MEDS ORDERED: ONDANSETRON INJ 2 MG/ML 2 ML VIAL IV PRN (18:45)
[2017-11-04] MEDS ORDERED: ALUMINUM/MAGNESIUM/SIMETH (MAALOX MAX) 30 ML UDC PO PRN (18:45)
[2017-11-04] MEDS ORDERED: ACETAMINOPHEN 325 MG TAB PO PRN (18:45)
[2017-11-04 19:55] VITALS: BP 140/55; PULSE 62; TEMP 36.9; O2SAT 96; Ht 157.5 cm; Wt 113.4 kg
[2017-11-04] MEDS ORDERED: GLUCOSE 40% GEL 15 GM TUBE PO PRN (20:00)
[2017-11-04] MEDS ORDERED: GLUCAGON FOR INJ 1 MG VIAL SQ PRN (20:00)
[2017-11-04] MEDS ORDERED: GLUCOSE 10 TABS/TUBE PO PRN (20:00)
[2017-11-04] MEDS ORDERED: DEXTROSE 50% 50 ML SYR IV PRN (20:00)
[2017-11-04] MEDS ORDERED: IV FLUIDS COMPLETED PRN (20:00)
[2017-11-04] MEDS: FLUTICASONE/SALMETEROL (ADVAIR) 500/50 INH 14 PUFF INH SCH (20:46)
[2017-11-04] MEDS: ASPIRIN 81 MG ECTAB PO SCH (20:47)
[2017-11-04] MEDS: ATORVASTATIN 40 MG TAB PO SCH (20:48)
[2017-11-04] MEDS: NYSTATIN SUSP 500,000 U/5 ML UDC PO SCH (20:48)
[2017-11-04] MEDS: CARVEDILOL 12.5 MG TAB PO SCH (20:49)
[2017-11-04] MEDS: EZETIMIBE 10MG TAB PO SCH (20:49)
[2017-11-04] MEDS: PRAMIPEXOLE DIHYDROCHLORIDE 0.25MG TAB PO SCH (20:49)
[2017-11-04 20:50] VITALS: PULSE 68; O2SAT 98
[2017-11-04] MEDS: HEPARIN SOD 5000 UNIT/0.5 ML CARP SQ SCH (20:50)
[2017-11-04] MEDS: ALBUT/IPRATROP 3MG/0.5MG NEB 3 ML VIAL INH SCH (20:50)
--- NOTE | 2017-11-04 22:02 | EMERGENCY ROOM VISIT NOTE ---
History Report prepared by Phillip: Carmelita Farooq Under the Supervision of: Dr. Nahun Perez D.O. First contact with patient: 15:38 Chief Complaint: WEAKNESS Stated Complaint: DISCHARGED YESTERDAY, VERY WEAK Nursing Triage Summary: Pt just discharged from [facility] yesterday, admitted for influenza. Pt now reports she is weak, unable to get around. difficulty breathing. wears oxygen as needed at home, but has been wearing constantly. ongoing cough. after admission, they were suggestion [facility] admission, unable to get in per daughter History of Present Illness The patient is a 72 year old female who presents to the Emergency Room with complaints of persistent weakness starting yesterday. The patient was admitted to the hospital 2 weeks ago with influenza and COPD exacerbation. The patient was discharged yesterday. At home, she has been too weak to walk. She was unable to get into a chair on her own. She had to call her children to come help her. Her lives with her, but is unable to help her up. She would like to go to [facility]. Her cough and SOB are somewhat better. She feels like she might be getting some fluid on her lungs again. She denies any chest pain, nausea, vomiting, diarrhea, or urinary symptoms. She is on Plavix and aspirin. Source of History: patient, family Onset: yesterday Position: other (global) Quality: other (weakness) Timing: other (persistent) Associated Symptoms: No chest pain, No nausea, No vomiting, No diarrhea, No urinary symptoms Review of Systems See HPI for pertinent positives & negatives. A total of 10 systems reviewed and were otherwise negative. Past Medical & Surgical Medical Problems: (1) Acute and chronic respiratory failure with hypercapnia (2) Acute on chronic systolic (congestive) heart failure (3) AICD malfunction (4) ANEMIA NOS (5) ASTHMA, UNSPECIFIED (6) Cardiac defibrillator in place (7) CHF (congestive heart failure) (8) CHRONIC KIDNEY DISEASE, UNSPECIFIED (9) COPD (chronic obstructive pulmonary disease) (10) COPD exacerbation (11) COPD exacerbation (12) CORONARY ATHEROSCLEROSIS OF [place] CORONARY VESSEL (13) DIAB CASPER WO COMPL, TYPE II OR UNSPEC TYPE, NOT UNCNTRLD (14) Elevated troponin (15) Emphysema of lung (16) Hypoxia (17) Influenza A (18) Non compliance w medication regimen (19) Pulmonary congestion (20) PURE HYPERCHOLESTEROLEM (21) Respiratory distress (22) Syncope Family History Breast cancer Diabetes mellitus FH: heart disease Hypertension Kidney disease Kidney stones Lung disease Myocardial infarction Social History Smoking Status: Current Every Day Smoker Alcohol Use: occasionally Drug Use: none Marital Status: Housing Status: lives with family Occupation Status: retired Current/Historical Medications Scheduled Aspirin (Aspirin Chewable), 81 MG PO QPM Atorvastatin (Lipitor), 80 MG PO HS Carvedilol (Coreg), 12.5 MG PO BID Clopidogrel Bisulfate (Plavix), 75 MG PO QAM Ezetimibe (Zetia), 10 MG PO HS Fluticasone Prop/Salmeterol (Advair Diskus 500/50 60 Dose), 1 PUFFS INH BID Furosemide (Lasix), 40 MG PO DAILY Ipratropium-Albuterol (Combivent Respimat), 1 PUFFS INH QID Lisinopril (Lisinopril), 5 MG PO QAM Nystatin (Nystatin), 5 ML PO QID Pramipexole Dihydrochloride (Pramipexole Dihydrochlori), 0.25 MG PO HS Prednisone (Prednisone), 60 MG PO QAM Sertraline (Zoloft), 50 MG PO QAM Vitamins C & E (Vitamin C), 1 CAP PO DAILY Scheduled PRN Hydroxyzine HCl (Hydroxyzine HCl), 25 MG PO BID PRN for Anxiety Lorazepam (Ativan), 0.5 MG PO Q6H PRN for Anxiety Allergies Coded Allergies: Sulfa Antibiotics (Verified Allergy, Intermediate, RASH, 10/22/17) Morphine (Verified Adverse Reaction, Mild, GI SYMPTOMS, 10/22/17) Physical Exam Vital Signs Date Time Temp Pulse Resp B/P (MAP) Pulse Ox O2 Delivery O2 Flow Rate FiO2 11/04/17 17:01 60 16 125/55 96 2.0 11/04/17 16:36 98 Nasal Cannula 2.0 11/04/17 16:35 60 11/04/17 16:34 98 Nasal Cannula 2.0 11/04/17 13:58 36.5 63 18 118/50 95 Room Air Physical Exam GENERAL: Sitting up in bed, on nasal cannula, chronically ill appearing, disheveled, talking in full sentences EYE EXAM: normal conjunctiva. OROPHARYNX: no exudate, no erythema, lips, buccal mucosa, and tongue normal and mucous membranes are moist NECK: supple, no nuchal rigidity, no adenopathy, non-tender LUNGS: Diffuse wheezes bilaterally. Normal chest wall mechanics HEART: no murmurs, S1 normal and S2 normal ABDOMEN: abdomen soft, non-tender, normo-active bowel sounds, no masses, no rebound or guarding. BACK: Back is symmetrical on inspection and there is no deformity, no midline tenderness, no CVA tenderness. SKIN: no rashes and no bruising UPPER EXTREMITIES: upper extremities are grossly normal. LOWER EXTREMITIES: No pitting edema. NEURO EXAM: Normal sensorium, cranial nerves II-XII grossly intact, normal speech, no gross weakness of arms, no gross weakness of legs. Medical Decision & Procedures ER Provider Diagnostic Interpretation: Xray results as stated below per my and the radiologist's interpretation: CHEST ONE VIEW PORTABLE CLINICAL HISTORY: Weakness COMPARISON STUDY: 11/02/2017 FINDINGS: The cardiac and mediastinal contours remain stable. There is a left subclavian dual-chamber pacer/defibrillator present. The heart is mildly enlarged. There are left basilar opacities, likely atelectatic. There is been resolution of the previously described pulmonary vascular congestion.[ The patient is hyperinflated. IMPRESSION: 1. Interval resolution of the previous described pulmonary vascular congestion 2. Left basilar opacities, likely atelectatic Electronically signed by: Micky Cutler M.D. 11/04/2017 4:16 PM Dictated Date/Time: 11/04/2017 4:15 PM Laboratory Results 11/04/17 16:25 Red Blood Count 4.09, Mean Corpuscular Volume 88.8, Mean Corpuscular Hemoglobin 29.3, Mean Corpuscular Hemoglobin Concent 33.1, Mean Platelet Volume 9.7, Neutrophils (%) (Auto) 94.4, Lymphocytes (%) (Auto) 3.5, Monocytes (%) (Auto) 1.7, Eosinophils (%) (Auto) 0.0, Basophils (%) (Auto) 0.0, Neutrophils # (Auto) 9.40, Lymphocytes # (Auto) 0.35, Monocytes # (Auto) 0.17, Eosinophils # (Auto) 0.00, Basophils # (Auto) 0.00 11/04/17 16:25 Test 11/04/17 16:15 11/04/17 16:25 Urine Color YELLOW Urine Appearance CLEAR (CLEAR) Urine pH 7.0 (4.5-7.5) Urine Specific Kane 1.012 (1.000-1.030) Urine Protein NEG (NEG) Urine Glucose (UA) NEG (NEG) Urine Ketones NEG (NEG) Urine Occult Blood NEG (NEG) Urine Nitrite NEG (NEG) Urine Bilirubin NEG (NEG) Urine Urobilinogen NEG (NEG) Urine Leukocyte Esterase TRACE (NEG) Urine WBC (Auto) 0 /hpf (0-5) Urine RBC (Auto) 0-4 /hpf (0-4) Urine Hyaline Casts (Auto) 0 /lpf (0-5) Urine Epithelial Cells (Auto) 5-10 /lpf (0-5) Urine Bacteria (Auto) NEG (NEG) White Blood Count 9.96 K/uL (4.8-10.8) Red Blood Count 4.09 M/uL (4.2-5.4) Hemoglobin 12.0 g/dL (12.0-16.0) Hematocrit 36.3 % (37-47) Mean Corpuscular Volume 88.8 fL (80-100) Mean Corpuscular Hemoglobin 29.3 pg (25-34) Mean Corpuscular Hemoglobin Concent 33.1 g/dl (32-36) Platelet Count 195 K/uL (130-400) Mean Platelet Volume 9.7 fL (7.4-10.4) Neutrophils (%) (Auto) 94.4 % Lymphocytes (%) (Auto) 3.5 % Monocytes (%) (Auto) 1.7 % Eosinophils (%) (Auto) 0.0 % Basophils (%) (Auto) 0.0 % Neutrophils # (Auto) 9.40 K/uL (1.4-6.5) Lymphocytes # (Auto) 0.35 K/uL (1.2-3.4) Monocytes # (Auto) 0.17 K/uL (0.11-0.59) Eosinophils # (Auto) 0.00 K/uL (0-0.5) Basophils # (Auto) 0.00 K/uL (0-0.2) RDW Standard Deviation 56.1 fL (36.4-46.3) RDW Coefficient of Variation 17.2 % (11.5-14.5) Immature Granulocyte % (Auto) 0.4 % Immature Granulocyte # (Auto) 0.04 K/uL (0.00-0.02) Prothrombin Time 10.9 SECONDS (9.0-12.0) Prothromb Time International Ratio 1.0 (0.9-1.1) Activated Partial Thromboplast Time 23.2 SECONDS (21.0-31.0) Partial Thromboplastin Ratio 0.9 Anion Gap 6.0 mmol/L (3-11) Est Creatinine Clear Calc Drug Dose 37.1 ml/min Estimated GFR () 68.9 Estimated GFR (Non- 59.4 BUN/Creatinine Ratio 49.2 (10-20) Calcium Level 8.1 mg/dl (8.5-10.1) Magnesium Level 2.3 mg/dl (1.8-2.4) Total Bilirubin 0.5 mg/dl (0.2-1) Direct Bilirubin < 0.1 mg/dl (0-0.2) Aspartate Amino Transf (AST/SGOT) 15 U/L (15-37) Alanine Aminotransferase (ALT/SGPT) 47 U/L (12-78) Alkaline Phosphatase 90 U/L (45-117) Troponin I 0.137 ng/ml (0-0.045) Pro-B-Type Natriuretic Peptide 5721 pg/ml (0-900) Total Protein 5.9 gm/dl (6.4-8.2) Albumin 2.8 gm/dl (3.4-5.0) Thyroid Stimulating Hormone (TSH) 2.620 uIu/ml (0.300-4.500) Laboratory results per my review. Medications Administered Medications (Trade) Dose Ordered Sig/Osmani Route Start Time Stop Time Status Last Admin Dose Admin Aspirin (Aspirin Chew) 324 mg NOW STAT PO 11/04/17 17:26 11/04/17 17:28 DC 11/04/17 18:14 324 MG ECG Indication: weakness Rate (beats per minute): 60 Rhythm: atrial flutter (with variable block) Findings: RBBB, left axis deviation, other (ventricularly paced) Comparison ECG Date: 29-Oct-2017 Change: A flutter is new. Patient's electrocardiogram interpreted by me. ED Course ED COURSE: Vital signs were reviewed and showed normal vitals. The patients medical record was reviewed The above diagnostic studies were performed and reviewed. ED treatments and interventions as stated above. 1546: The patient was evaluated in room B2. A complete history and physical examination was performed. 1726: Aspirin 324 mg PO. 1720: Upon reevaluation, the patient is resting comfortably. I discussed my findings with the patient and she understands and agrees with the treatment plan. Based on the patients age, coexisting illnesses, exam and lab findings the decision to treat as an inpatient was made. The patient remained stable while under my care. The patient will be evaluated for further management. 172: I reviewed the patient's case with Dr. Cuevas [facility] hospitalist. He will evaluate the patient for further management. Medical Decision Differential Diagnosis includes but is not limited to dehydration, stroke, anemia, hypoglycemia, hyponatremia, hypernatremia, urinary tract infection, pneumonia, bronchitis, sepsis, gastroenteritis, additional abdominal pathology, metabolic abnormalities and infections. Patient is a 72-year-old female who presents to ER for weakness. She was admitted from October 22 until yesterday when she was discharged home. Appears that attempted to place her in [facility] but she did not want ago. Since being home she has been unable to ambulate or get around that she's been too weak. She denies any other chest pain or shortness of breath. CBC was unremarkable. BMP all with bilirubin LFTs were normal. Troponin was slightly elevated at 0.137. Her baseline appears to be around 0.08. BMP is not significantly elevated either. TSH normal. UA was negative. INR was normal. Chest x-ray appears to be improving. EKG was nondiagnostic. Aspirin was given. I did ask [facility] to to evaluate the patient as they've just discharged her. With the elevated troponin and inability to care for self at home she was admitted to internal medicine for observation. Medication Reconcilliation Current Medication List: was personally reviewed by me Blood Pressure Screening Patient's blood pressure: Normal blood pressure Blood pressure disposition: Did not require urgent referral Consults Time Called: 172 Consulting Physician: Dr. Cuevas [facility] hospitalist Returned Call: [phone] I reviewed the patient's case with him. He will evaluate the patient for further management. Impression Primary Impression: Weakness Additional Impressions: Elevated troponin Ambulatory dysfunction Scribe Attestation The scribe's documentation has been prepared under my direction and personally reviewed by me in its entirety. I confirm that the note above accurately reflects all work, treatment, procedures, and medical decision making performed by me. Departure Information Dispostion Being Evaluated By Hospitalist Referrals RV. Edwards MD (PCP) Patient Instructions [facility] Problem Qualifiers
--- NOTE | 2017-11-04 22:12 | History and Physical ---
History & Physical Date & Time of Service: Nov 04, 2017 at 18:52 Chief Complaint: Discharged Yesterday, Very Weak Primary Care Physician: RV. Edwards MD History of Present Illness The patient is a 72-year-old white female with a complex past medical history significant for CAD/inferior AL 1999, hypertension, dyslipidemia, type 2 diabetes mellitus, COPD, tobacco abuse, chronic systolic/diastolic CHF and cardiomyopathy (EF 25-30%), S/P Medtronic ICD/BiV pacemaker implantation with elective generator replacement 02/21/2017, peripheral arterial disease ( S/P right iliofemoral endarterectomy and popliteal/SFA angioplasties 05/04/13, mesenteric arterial occlusive disease S/P superior mesenteric stent placement , carotid disease status post left CEA 1990), subarachnoid hemorrhage , and recent hospital stay from 10/22/17 to 11/03/17 due to influenza A infection & COPD exacerbation (+/- acute/chronic CHF). Rehab was strongly advised on several occasions and she left yesterday to go home despite these recommendations. She returns today with significant weakness and admitting that she simply can't stay at home. She fell yesterday as well as today trying to ambulate (yesterday she fell on the way to the bathroom despite help from 2 nursing aids, and she fell going down her front steps while her daughter was helping her). She is a little more short of breath than baseline but denies chest pain, worsening LE edema, orthopnea, PND, or fevers/chills. She is using NC O2 [id number] as prescribed. She is taking prednisone as directed. She denies any injuries due to the falls. Her daughter states "her legs just give out." Both the patient and her daughter are quite agreeable to placement for rehab. Past Medical/Surgical History PMH: 1. CAD s/p inferior wall AL 1999 2. hypertension 3. dyslipidemia 4. type 2 diabetes mellitus 5. chronic hypoxic respiratory failure 2nd to COPD 6. ongoing tobacco dependence 7. chronic systolic/diastolic CHF 8. ischemic cardiomyopathy (EF 25-30%) 9. CKD stage 3 10. PAD 11. flu A infection requiring hospitalization 10/2017 12. subarachnoid hemorrhage 05/31/2017 PSH: 1. S/P Medtronic ICD/BiV pacemaker implantation 02/21/12 with elective generator replacement 02/21/2017 2. S/P right iliofemoral endarterectomy and popliteal/SFA angioplasties 05/04/13 3. mesenteric arterial occlusive disease S/P superior mesenteric stent placement 05/03/2017 4. 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 [employer] ) Immunizations History of Influenza Vaccine: Yes Influenza Vaccine Date: Oct 12, 2012 History of Tetanus Vaccine?: Unknown History of Pneumococcal: Unknown History of Hepatitis B Vaccine: No Multi-Drug Resistant Organisms History of MDRO: No Allergies Coded Allergies: Sulfa Antibiotics (Verified Allergy, Intermediate, RASH, 10/22/17) Morphine (Verified Adverse Reaction, Mild, GI SYMPTOMS, 10/22/17) Home Medications Scheduled Aspirin (Aspirin Chewable), 81 MG PO QPM Atorvastatin (Lipitor), 80 MG PO HS Carvedilol (Coreg), 12.5 MG PO BID Clopidogrel Bisulfate (Plavix), 75 MG PO QAM Ezetimibe (Zetia), 10 MG PO HS Fluticasone Prop/Salmeterol (Advair Diskus 500/50 60 Dose), 1 PUFFS INH BID Furosemide (Lasix), 40 MG PO DAILY Ipratropium-Albuterol (Combivent Respimat), 1 PUFFS INH QID Lisinopril (Lisinopril), 5 MG PO QAM Nystatin (Nystatin), 5 ML PO QID Pramipexole Dihydrochloride (Pramipexole Dihydrochlori), 0.25 MG PO HS Prednisone (Prednisone), 60 MG PO QAM Sertraline (Zoloft), 50 MG PO QAM Vitamins C & E (Vitamin C), 1 CAP PO DAILY Scheduled PRN Hydroxyzine HCl (Hydroxyzine HCl), 25 MG PO BID PRN for Anxiety Lorazepam (Ativan), 0.5 MG PO Q6H PRN for Anxiety Review of Systems Constitutional: + weight loss, + weakness, + fatigue, No fever, No chills, No sweats Eyes: No worsening of vision ENT: No nasal symptoms, No sore throat, No trouble swallowing Respiratory: + cough, + sputum, + wheezing, + shortness of breath, + dyspnea on exertion, No hemoptysis Cardiovascular: No chest pain, No orthopnea, No PND, No edema Abdomen: No pain, No nausea, No vomiting, No diarrhea, No constipation, No GI bleeding Musculoskeletal: No joint pain, No muscle pain Genitourinary - Female: No dysuria Neurologic: + weakness, + balance problems, No numbness/tingling Psychiatric: + anxiety, + insomnia, No depression symptoms Endocrine: + fatigue Hematologic / Lymphatic: No abnormal bleeding/bruising Integumentary: No rash Physical Exam Vital Signs Date Time Temp Pulse Resp B/P (MAP) Pulse Ox O2 Delivery O2 Flow Rate FiO2 11/04/17 17:01 60 16 125/55 96 2.0 11/04/17 16:36 98 Nasal Cannula 2.0 11/04/17 16:35 60 11/04/17 16:34 98 Nasal Cannula 2.0 11/04/17 13:58 36.5 63 18 118/50 95 Room Air General Appearance: no apparent distress, + cachetic, + thin Head: normocephalic, atraumatic Eyes: PERRL, EOMI, sclerae normal ENT: hearing grossly normal, TMs normal, + pertinent finding (MM, lips slightly dry) Neck: supple, no adenopathy, thyroid normal, no JVD, trachea midline Respiratory/Chest: no respiratory distress, no accessory muscle use, + decreased breath sounds (bases), + wheezing (extensive b/l) Cardiovascular: regular rate, rhythm, no gallop, no murmur, normal peripheral pulses Abdomen/GI: normal bowel sounds, non tender, soft, no organomegaly Back: normal inspection Extremities/Musculoskelatal: no pedal edema, + pertinent finding (no evidence of traumatic injury to either hip, the pelvis, knees, etc. ) Neurologic/Psych: no motor/sensory deficits (strength 5/5 on right, nearly 5/5 on left arm/leg), alert, normal mood/affect, normal reflexes, oriented x 3 Skin: no rash Lymphatic: no adenopathy (cervical ) Diagnostics Laboratory Results Results Past 24 Hours Test 11/04/17 16:15 11/04/17 16:25 11/04/17 18:42 Range/Units Urine Color YELLOW Urine Appearance CLEAR CLEAR Urine pH 7.0 4.5-7.5 Urine Specific [place] 1.012 1.000-1.030 Urine Protein NEG NEG Urine Glucose (UA) NEG NEG Urine Ketones NEG NEG Urine Occult Blood NEG NEG Urine Nitrite NEG NEG Urine Bilirubin NEG NEG Urine Urobilinogen NEG NEG Urine Leukocyte Esterase TRACE NEG Urine WBC (Auto) 0 0-5 /hpf Urine RBC (Auto) 0-4 0-4 /hpf Urine Hyaline Casts (Auto) 0 0-5 /lpf Urine Epithelial Cells (Auto) 5-10 0-5 /lpf Urine Bacteria (Auto) NEG NEG White Blood Count 9.96 4.8-10.8 K/uL Red Blood Count 4.09 4.2-5.4 M/uL Hemoglobin 12.0 12.0-16.0 g/dL Hematocrit 36.3 37-47 % Mean Corpuscular Volume 88.8 80-100 fL Mean Corpuscular Hemoglobin 29.3 25-34 pg Mean Corpuscular Hemoglobin Concent 33.1 32-36 g/dl Platelet Count 195 130-400 K/uL Mean Platelet Volume 9.7 7.4-10.4 fL Neutrophils (%) (Auto) 94.4 % Lymphocytes (%) (Auto) 3.5 % Monocytes (%) (Auto) 1.7 % Eosinophils (%) (Auto) 0.0 % Basophils (%) (Auto) 0.0 % Neutrophils # (Auto) 9.40 1.4-6.5 K/uL Lymphocytes # (Auto) 0.35 1.2-3.4 K/uL Monocytes # (Auto) 0.17 0.11-0.59 K/uL Eosinophils # (Auto) 0.00 0-0.5 K/uL Basophils # (Auto) 0.00 0-0.2 K/uL RDW Standard Deviation 56.1 36.4-46.3 fL RDW Coefficient of Variation 17.2 11.5-14.5 % Immature Granulocyte % (Auto) 0.4 % Immature Granulocyte # (Auto) 0.04 0.00-0.02 K/uL Prothrombin Time 10.9 9.0-12.0 SECONDS Prothromb Time International Ratio 1.0 0.9-1.1 Activated Partial Thromboplast Time 23.2 21.0-31.0 SECONDS Partial Thromboplastin Ratio 0.9 Sodium Level 136 136-145 mmol/L Potassium Level 4.7 3.5-5.1 mmol/L Chloride Level 98 98-107 mmol/L Carbon Dioxide Level 32 21-32 mmol/L Anion Gap 6.0 3-11 mmol/L Blood Urea Nitrogen 47 7-18 mg/dl Creatinine 0.95 0.60-1.20 mg/dl Est Creatinine Clear Calc Drug Dose 37.1 ml/min Estimated GFR () 68.9 Estimated GFR (Non- 59.4 BUN/Creatinine Ratio 49.2 10-20 Random Glucose 174 70-99 mg/dl Calcium Level 8.1 8.5-10.1 mg/dl Total Bilirubin 0.5 0.2-1 mg/dl Direct Bilirubin < 0.1 0-0.2 mg/dl Aspartate Amino Transf (AST/SGOT) 15 15-37 U/L Alanine Aminotransferase (ALT/SGPT) 47 12-78 U/L Alkaline Phosphatase 90 45-117 U/L Troponin I 0.137 0-0.045 ng/ml Pro-B-Type Natriuretic Peptide 5721 0-900 pg/ml Total Protein 5.9 6.4-8.2 gm/dl Albumin 2.8 3.4-5.0 gm/dl Thyroid Stimulating Hormone (TSH) 2.620 0.300-4.500 uIu/ml Diagnostic Radiology cxr - IMPRESSION: 1. Interval resolution of the previous described pulmonary vascular congestion 2. Left basilar opacities, likely atelectatic EKG EKG - ventricularly paced rhythm Impression Assessment and Plan 72-year-old white female with a complex past medical history significant for CAD /inferior AL 1999, hypertension, dyslipidemia, type 2 diabetes mellitus, COPD, tobacco abuse, chronic systolic/diastolic CHF and cardiomyopathy (EF 25-30%), ICD/BiV pacemaker, mesenteric arterial occlusive disease S/P superior mesenteric stent placement 05/03/2017, carotid disease status post left CEA 1990 , PAD, subarachnoid hemorrhage 05/31/2017, and recent hospital stay from to 11/03/17 due to influenza A infection/COPD exacerbation. She returns due to severe weakness and 2 minor falls without injuries occurring since hospital discharge yesterday. She was strongly advised to transfer to inpatient rehab after her recent hospitalization but she refused, opting to return home. At time of presentation I do not see any evidence of an infectious process contributing to her weakness. Her BUN is markedly elevated suggesting possible volume depletion from recent poor appetite, diuretics, etc. Hemoglobin is stable relative to her previous hospital stay making upper GI bleeding unlikely. 1. severe weakness - due to significant deconditioning in the setting of a prolonged hospital stay for influenza A and COPD exacerbation. Her neuro exam is nonfocal. Again I don't see evidence of any complicating infectious process (cxr is clear, u/a largely normal, etc). Although her troponin is modestly elevated she denies any ischemic symptoms AND her troponin appears chronically elevated based on the EMR. Will consult PT and OT and ask social work to assist with her disposition. Patient IS agreeable to placement at this time. Previous TSH, B12, etc wnl. CBC acceptable today as well. 2. chronic systolic/diastolic CHF, EF 25-30% - continue beta dane and low- dose WALTER. She appears modestly volume depleted clinically and BUN is quite high today relative to her creatinine. Will keep her lasix on the medication list but place on hold for the AM and reassess her labs/clinical status then. Check orthostatic BPs. 3. CKD stage 3 - creatinine is stable; BMP in the AM. 4. recent COPD exacerbation - cxr is free of infiltrates today. Continue prednisone taper that was prescribed at hospital d/c yesterday (start with 60mg and wean every 3 days). Continue home inhalers and nebs. Incentive spirometry. 5. chronic hypoxic resp failure - new as of last hospital stay. Cont NC O2, O2 sat goal 90-92%. 6. PAD - continue asa, plavix, statin agent. 7. CAD with mildly elevated troponin - she has no ischemic symptoms today. She has a chronically elevated troponin based on the EMR. Reasonable to trend these enzymes but I do not think she has had an ACS since her hospital d/c yesterday. 8. HTN - controlled; check orthostatics to ensure recent falls were not from low BP. 9. hyperlipidemia - statin agent. 10. T2DM - check FSBS ac/hs. Diabetic diet. Novolog correction for now with meals only. 11. DVT proph - heparin BID. 12. recent influenza infection - clinically resolved; completed tamiflu during last hospitalization. 13. ongoing tobacco dependence - counseled to quit, and counseled about risk of house fire, etc. 14. PT, OT consults due to weakness/falls. 15. DNR, level 5 status. Daughter updated at bedside. Level of Care Telemetry Advanced Directives Existing Advance Directive: Yes Existing Living Will: Yes Existing Power of Freight Engineer: Yes Existing Health Care Proxy: Yes Resuscitation Status DO NOT RESUSCITATE VTE Prophylaxis VTE Risk Assessment Done? Y/N: Yes Risk Level: High Given or contraindicated: Unfractionated heparin SQ Note total time about 70 minutes patient to be placed on observation status
[2017-11-04 23:59] VITALS: BP 128/67; PULSE 60; TEMP 37.1; O2SAT 98
[2017-11-05] VITALS (13 sets, daily range): BP systolic 91–144; BP diastolic 41–77; PULSE 58–99; TEMP 36.3–37; O2SAT 2–98
[2017-11-05 04:42] LABS: CREATININE 0.86 mg/dl (0.60-1.20); POTASSIUM 4.4 mmol/L (3.5-5.1)
[2017-11-05] MEDS: ALBUT/IPRATROP 3MG/0.5MG NEB 3 ML VIAL INH SCH ×4 (07:28→20:04)
[2017-11-05] MEDS: INSULIN ASPART 100 UNITS/ML 3 ML PEN SC SCH ×3 (07:30→16:49)
[2017-11-05] MEDS: HEPARIN SOD 5000 UNIT/0.5 ML CARP SQ SCH ×2 (08:18→19:59)
[2017-11-05] MEDS: FLUTICASONE/SALMETEROL (ADVAIR) 500/50 INH 14 PUFF INH SCH ×2 (08:19→19:59)
[2017-11-05] MEDS: CLOPIDOGREL BISULFATE 75 MG TAB PO SCH (08:20)
[2017-11-05] MEDS: SERTRALINE HCL 50 MG TAB PO SCH (08:20)
[2017-11-05] MEDS: LISINOPRIL 5 MG TAB PO SCH (08:20)
[2017-11-05] MEDS: NYSTATIN SUSP 500,000 U/5 ML UDC PO SCH ×4 (08:21→20:00)
[2017-11-05] MEDS: CARVEDILOL 12.5 MG TAB PO SCH ×2 (08:21→19:59)
[2017-11-05] MEDS: LORAZEPAM 0.5 MG TAB PO PRN ×2 (08:23→20:00)
[2017-11-05] MEDS ORDERED: FUROSEMIDE 40 MG TAB PO SCH (09:00)
--- NOTE | 2017-11-05 15:44 | Progress Note ---
Subjective Date of Service: Nov 05, 2017. Subjective Pt evaluation today including: conversation w/ patient, physical exam, chart review, lab review, review of studies, conversation w/ instructional systems design consultant, review of inpatient medication list Reported generalized weakness is getting a little bit better, but still has cough and some sputum Deny fever or chill denied chest pain Problem List Medical Problems: (1) Acute asthma exacerbation Status: Acute (2) Acute bronchitis Status: Acute (3) Acute CO Status: Acute (4) Ambulatory dysfunction Status: Acute (5) Anemia Status: Acute (6) CHF (congestive heart failure) Status: Acute (7) CHF (congestive heart failure) Status: Acute (8) CHF (congestive heart failure) Status: Acute (9) COPD (chronic obstructive pulmonary disease) Status: Acute (10) Elevated troponin Status: Acute (11) Facial contusion Status: Acute (12) Hyponatremia Status: Acute (13) Hypoxia Status: Acute (14) Influenza Status: Acute (15) Intracranial bleeding Status: Acute (16) Intractable nausea and vomiting Status: Acute (17) Mesenteric ischemia Status: Acute (18) Mesenteric ischemia Status: Acute (19) Multiple contusions Status: Acute (20) Nausea Status: Acute (21) Pulmonary edema Status: Acute (22) Pulmonary edema Status: Acute (23) Respiratory distress Status: Acute (24) Respiratory failure Status: Acute (25) SOB (shortness of breath) Status: Acute (26) Syncope Status: Acute (27) Weakness Status: Acute Review of Systems Constitutional: + weakness, + fatigue, No fever, No chills, No sweats, No weight loss, No problem reported Eyes: No worsening of vision, No eye pain, No redness, No discharge, No diplopia ENT: No hearing loss, No unusual epistaxis, No nasal symptoms, No sore throat, No tinnitus, No dental problems, No trouble swallowing Respiratory: + cough, No sputum, No wheezing, No shortness of breath, No dyspnea on exertion, No dyspnea at rest, No hemoptysis Cardiac: No chest pain, No orthopnea, No PND, No edema, No claudication, No palpitations Abdomen: No pain, No nausea, No vomiting, No diarrhea, No constipation Musculoskeletal: No joint pain, No muscle pain, No swelling, No calf pain Female : No dysuria, No urinary frequency, No hematuria, No incontinence, No abnormal vaginal bleeding, No vaginal discharge Neurologic: No memory loss, No paralysis, No weakness, No numbness/tingling, No vertigo, No balance problems Psychiatric: No depression symptoms, No anhedonism, No anxiety, No insomnia, No substance abuse Heme: No abnormal bleeding/bruising, No clotting problems, No swollen lymph nodes, No night sweats Endo: No fatigue, No excessive thirst, No excessive urination Skin: No rash, No itch, No new/changing skin lesions, No color change, No bleeding Objective Vital Signs Date Time Temp Pulse Resp B/P (MAP) Pulse Ox O2 Delivery O2 Flow Rate FiO2 11/05/17 15:32 58 16 95 Nasal Cannula 2.0 11/05/17 12:20 36.4 62 24 119/67 (84) 98 Nasal Cannula 2.0 11/05/17 12:00 62 11/05/17 12:00 98 Nasal Cannula 2.0 11/05/17 11:13 60 16 94 Nasal Cannula 2.0 11/05/17 08:35 37.0 76 18 144/73 (96) 94 11/05/17 08:00 98 Nasal Cannula 2.0 11/05/17 07:28 63 16 98 Nasal Cannula 2.0 11/05/17 04:00 94 Nasal Cannula 2.0 11/05/17 04:00 36.5 61 14 120/41 (67) 94 Nasal Cannula 2.0 124/62 (82) 114/62 (79) 11/04/17 23:59 37.1 60 16 128/67 (87) 98 Nasal Cannula 2.0 11/04/17 23:59 98 Nasal Cannula 2.0 11/04/17 20:50 68 16 98 Nasal Cannula 2.0 11/04/17 19:55 36.9 62 18 140/55 96 Nasal Cannula 2.0 11/04/17 19:40 62 20 110/48 98 11/04/17 17:01 60 16 125/55 96 2.0 11/04/17 16:36 98 Nasal Cannula 2.0 11/04/17 16:35 60 11/04/17 16:34 98 Nasal Cannula 2.0 Physical Exam General Appearance: WD/WN, no apparent distress, + thin, + pertinent finding ( frail looking) Eyes: normal inspection, PERRL, EOMI, sclerae normal ENT: normal ENT inspection, hearing grossly normal, pharynx normal Neck: supple, no adenopathy, thyroid normal, no JVD, no carotid bruits, trachea midline Respiratory/Chest: chest non-tender, normal breath sounds, no respiratory distress, no accessory muscle use, + decreased breath sounds Cardiovascular: regular rate, rhythm, no gallop, no JVD, no murmur Abdomen: normal bowel sounds, non tender, soft, no organomegaly, no pulsatile mass Extremities: normal range of motion, non-tender, normal inspection, no pedal edema, no calf tenderness, normal capillary refill, pelvis stable, + pertinent finding (trace edema) Neurologic/Psychiatric: laborer sawmill II-XII nml as tested, no motor/sensory deficits, alert, normal mood/affect, oriented x 3 Skin: normal color, warm/dry, no rash Lymphatic: no adenopathy Laboratory Results Last 24 Hours Test 11/04/17 16:15 11/04/17 16:25 11/04/17 16:41 11/04/17 22:23 Urine Color YELLOW Urine Appearance CLEAR Urine pH 7.0 Urine Specific [place] 1.012 Urine Protein NEG Urine Glucose (UA) NEG Urine Ketones NEG Urine Occult Blood NEG Urine Nitrite NEG Urine Bilirubin NEG Urine Urobilinogen NEG Urine Leukocyte Esterase TRACE Urine WBC (Auto) 0 /hpf Urine RBC (Auto) 0-4 /hpf Urine Hyaline Casts (Auto) 0 /lpf Urine Epithelial Cells (Auto) 5-10 /lpf Urine Bacteria (Auto) NEG White Blood Count 9.96 K/uL Red Blood Count 4.09 M/uL Hemoglobin 12.0 g/dL Hematocrit 36.3 % Mean Corpuscular Volume 88.8 fL Mean Corpuscular Hemoglobin 29.3 pg Mean Corpuscular Hemoglobin Concent 33.1 g/dl Platelet Count 195 K/uL Mean Platelet Volume 9.7 fL Neutrophils (%) (Auto) 94.4 % Lymphocytes (%) (Auto) 3.5 % Monocytes (%) (Auto) 1.7 % Eosinophils (%) (Auto) 0.0 % Basophils (%) (Auto) 0.0 % Neutrophils # (Auto) 9.40 K/uL Lymphocytes # (Auto) 0.35 K/uL Monocytes # (Auto) 0.17 K/uL Eosinophils # (Auto) 0.00 K/uL Basophils # (Auto) 0.00 K/uL RDW Standard Deviation 56.1 fL RDW Coefficient of Variation 17.2 % Immature Granulocyte % (Auto) 0.4 % Immature Granulocyte # (Auto) 0.04 K/uL Prothrombin Time 10.9 SECONDS Prothromb Time International Ratio 1.0 Activated Partial Thromboplast Time 23.2 SECONDS Partial Thromboplastin Ratio 0.9 Sodium Level 136 mmol/L Potassium Level 4.7 mmol/L Chloride Level 98 mmol/L Carbon Dioxide Level 32 mmol/L Anion Gap 6.0 mmol/L Blood Urea Nitrogen 47 mg/dl Creatinine 0.95 mg/dl Est Creatinine Clear Calc Drug Dose 37.1 ml/min Estimated GFR () 68.9 Estimated GFR (Non- 59.4 BUN/Creatinine Ratio 49.2 Random Glucose 174 mg/dl Calcium Level 8.1 mg/dl Magnesium Level 2.3 mg/dl Total Bilirubin 0.5 mg/dl Direct Bilirubin < 0.1 mg/dl Aspartate Amino Transf (AST/SGOT) 15 U/L Alanine Aminotransferase (ALT/SGPT) 47 U/L Alkaline Phosphatase 90 U/L Troponin I 0.137 ng/ml 0.111 ng/ml Pro-B-Type Natriuretic Peptide 5721 pg/ml Total Protein 5.9 gm/dl Albumin 2.8 gm/dl Thyroid Stimulating Hormone (TSH) 2.620 uIu/ml Bedside Glucose 179 mg/dl Test 11/05/17 04:08 11/05/17 06:39 11/05/17 11:37 Sodium Level 139 mmol/L Potassium Level 4.4 mmol/L Chloride Level 100 mmol/L Carbon Dioxide Level 35 mmol/L Anion Gap 4.0 mmol/L Blood Urea Nitrogen 46 mg/dl Creatinine 0.86 mg/dl Est Creatinine Clear Calc Drug Dose 43.9 ml/min Estimated GFR () 77.7 Estimated GFR (Non- 67.0 BUN/Creatinine Ratio 52.7 Random Glucose 123 mg/dl Calcium Level 8.0 mg/dl Troponin I 0.127 ng/ml Bedside Glucose 107 mg/dl 131 mg/dl Assessment and Plan 72 y/o female readmitted generally 2014 because of generalized weakness deconditioning CHF exacerbation and elevated troponin Previous admission she was having influenza and influenza caused COPD exacerbation with worsening shortness of breath was just discharged for 2 days She was recommended to not [facility] rehabilitation she declined, for now she agreed to [facility] severe weakness Likely secondary to influenza A and COPD exacerbation. Elevated troponin Minimal elevated troponin because of demanding ischemia, no any signs of ACS Chronic systolic/diastolic CHF, EF 25-30% - continue beta dane and low-dose WALTER. CKD stage 3 - chronic hypoxic resp failure - new as of last hospital stay. Cont NC O2 Acute on chronic respiratory failure secondary to combination of COPD exacerba Influenza A: has completed 5 days of Tamiflu, off precautions, no further treatment Acute on chronic diastolic HF continue Lasix WALTER inhibitor daily weight and input and output, Patient agreed to discharge to [facility] in this admission Continued [facility] stay due to: home environment unsafe for pt Discharge planning: rehab hospital
[2017-11-05] MEDS: ASPIRIN 81 MG ECTAB PO SCH (19:59)
[2017-11-05] MEDS: ATORVASTATIN 40 MG TAB PO SCH (19:59)
[2017-11-05] MEDS: PRAMIPEXOLE DIHYDROCHLORIDE 0.25MG TAB PO SCH (19:59)
[2017-11-05] MEDS: EZETIMIBE 10MG TAB PO SCH (19:59)
[2017-11-06] VITALS (8 sets, daily range): BP systolic 102–135; BP diastolic 51–78; PULSE 60–66; TEMP 36.5–36.9; O2SAT 92–100
[2017-11-06] MEDS ORDERED: DEXTROMETHORPHAN POLYMR COMPLX 30MG/5 ML PO PRN (03:45)
[2017-11-06] MEDS: ALBUT/IPRATROP 3MG/0.5MG NEB 3 ML VIAL INH SCH ×3 (06:42→15:26)
[2017-11-06] MEDS: FLUTICASONE/SALMETEROL (ADVAIR) 500/50 INH 14 PUFF INH SCH (08:31)
[2017-11-06] MEDS: HEPARIN SOD 5000 UNIT/0.5 ML CARP SQ SCH (08:31)
[2017-11-06] MEDS: CLOPIDOGREL BISULFATE 75 MG TAB PO SCH (08:31)
[2017-11-06] MEDS: NYSTATIN SUSP 500,000 U/5 ML UDC PO SCH ×2 (08:32→12:47)
[2017-11-06] MEDS: SERTRALINE HCL 50 MG TAB PO SCH (08:32)
[2017-11-06] MEDS: LISINOPRIL 5 MG TAB PO SCH (08:32)
[2017-11-06] MEDS: CARVEDILOL 12.5 MG TAB PO SCH (08:32)
[2017-11-06] MEDS: INSULIN ASPART 100 UNITS/ML 3 ML PEN SC SCH ×2 (08:34→11:42)
[2017-11-06] MEDS: LORAZEPAM 0.5 MG TAB PO PRN (08:36)
[2017-11-06] MEDS ORDERED: RBTUDL5 PO (12:58)
[2017-11-06] MEDS ORDERED: LORA-741 PO (12:58)
--- NOTE | 2017-11-06 12:59 | Discharge Instructions ---
Discharge Instructions Date of Service Nov 06, 2017. Admission Reason for Admission: Elevated Troponin Discharge Discharge Diagnosis / Problem: fatigure, new identified episodic a flutter, elevated tn Discharge Goals Goal(s): Decrease discomfort, Improve function, Increase independence, Improve disease control, Improve nutritional status, Learn about illness, Diagnostic testing, Therapeutic intervention, Prevent Disease Progression, Specific goals Activity Recommendations Activity Level: Up Ad Sandra Therapies: Physical Therapy, Occupational Therapy . Additional Information Patient informed of condition: Yes Advance Directives: Yes DNR: Yes Level of Care: Acute Rehab Communicable Disease: No Prognosis: Other (guarded) Tyson Catheter: No Instructions / Follow-Up Instructions / Follow-Up you have severe weakness, Likely secondary to influenza A and COPD exacerbation better, continue cough syrups you have mild elevated troponin ,and new identified aflutter episode , no medicine changes for now, but you need to follow up with your shot core drill operator in 5- 7 days - you need to follow up with your primary care physician in 1 week, - take medication as instructed, never overdose or any misuse, or take with alcohol, because misuse of medicine may cause organ damage or , call your primary care physician if have questions of medicaitons. - call your primary care physician OR go to local emergency room if has any fever/chill, chest pain, shortness of breathing, nausea/vomiting/abdominal pain , facial droop/slurry speech/local weakness, or if has any questions. - fall precaution - diet as instructed Current Hospital Diet Patient's current hospital diet: AHA Diet (Heart Healthy), Diabetes Type 2 Diet Discharge Diet Recommended Diet: AHA Diet (Heart Healthy) Pending Studies Studies pending at discharge: no Physician Orders On Transfer POLST Discussion: without POLST completion Laboratory Results Hemoglobin A1c Test 10/22/17 07:15 Range/Units Estimated Average Glucose 131 mg/dl Hemoglobin A1c 6.2 H 4.5-5.6 % Medical Emergencies . Who to Call and When: Medical Emergencies: If at any time you feel your situation is an emergency, please call 911 immediately. . Non-Emergent Contact Non-Emergency issues call your: Primary Care Provider, Recreation Leader Call Non-Emergent contact if: you have a fever (or have palpitation) . . "Provider Documentation" section prepared by Arcenio Rm. . Core Measure Problem Core Measures: None
[2017-11-06] MEDS ORDERED: NURSING VERBAL MED ORDER ONE (13:30)
[2017-11-06] MEDS ORDERED: DEXTROMETHORPHAN POLYMR COMPLX 60 MG/10 ML UDP PO PRN (13:30)
--- NOTE | 2017-11-06 15:28 | Discharge Summary ---
Discharge Summary Date of Service Nov 06, 2017. Discharge Summary Admission Date: Nov 04, 2017 at 18:41 Discharge Date: Nov 06, 2017 Discharge Disposition: Rehab Principal Diagnosis: severe weakness, Likely secondary to influenza A and COPD exacerbation Problems/Secondary Diagnoses: mild elevated troponin ,and new identified aflutter episode , Immunizations: Have You Had Influenza Vaccine: Yes Influenza Vaccine Date: Oct 12, 2012 History of Tetanus Vaccine?: Unknown History of Pneumococcal: Unknown History of Hepatitis B Vaccine: No Procedures: No Consultations: No Medication Reconciliation New Medications: Guaifenesin (Robitussin) 100 Mg/5 Ml Debi 10 ML PO Q8 for 7 Days Continued Medications: Aspirin (Aspirin Chewable) 81 Mg Chew 81 MG PO QPM, TAB Atorvastatin (Lipitor) 80 Mg Tab 80 MG PO HS, TAB Carvedilol (Coreg) 25 Mg Tab 12.5 MG PO BID, TAB Clopidogrel Bisulfate (Plavix) 75 Mg Tab 75 MG PO QAM, TAB Ezetimibe (Zetia) 10 Mg Tab 10 MG PO HS, TAB Fluticasone Prop/Salmeterol (Advair Diskus 500/50 60 Dose) 1 Ea Aerp 1 PUFFS INH BID, #180 Furosemide (Lasix) 40 Mg Tab 40 MG PO DAILY Hydroxyzine HCl (Hydroxyzine HCl) 25 Mg Tab 25 MG PO BID PRN for Anxiety Ipratropium-Albuterol (Combivent Respimat) 1 Aer Aer 1 PUFFS INH QID, INH Lisinopril (Lisinopril) 5 Mg Tab 5 MG PO QAM Lorazepam (Ativan) 0.5 Mg Tab 0.5 MG PO Q6H PRN for Anxiety for 2 Days, #8 TAB (This prescription has been renewed) Nystatin (Nystatin) 5 Ml Susp 5 ML PO QID, #140 ML 0 Refills Pramipexole Dihydrochloride (Pramipexole Dihydrochlori) 0.25 Mg Tab 0.25 MG PO HS Prednisone (Prednisone) 20 Mg Tab 60 MG PO QAM, #29 TAB 0 Refills 60mg (3 tabs) daily x 3 days, then 40mg daily x 4 days then 30mg daily x 4 days then 20mg x 4 days then 10mg x 4 days Sertraline (Zoloft) 50 Mg Tab 50 MG PO QAM, TAB Vitamins C & E (Vitamin C) 1 Cap Cap 1 CAP PO DAILY Discharge Exam Generally feeling a little bit better in weakness, sitting up in a chair, eating and drinking, no fever and chills, denied palpitation or chest pain Review of Systems: Constitutional: + weakness, + fatigue, No fever, No chills, No sweats, No weight loss, No problem reported Eyes: No worsening of vision, No eye pain, No redness, No discharge, No diplopia, No problem reported ENT: No hearing loss, No unusual epistaxis, No nasal symptoms, No sore throat, No tinnitus, No dental problems, No trouble swallowing, No problem reported Respiratory: + shortness of breath, + dyspnea on exertion, No cough, No sputum, No wheezing, No dyspnea at rest, No hemoptysis, No problem reported Cardiovascular: No chest pain, No orthopnea, No PND, No edema, No claudication, No palpitations, No problem reported Abdomen: No pain, No nausea, No vomiting, No diarrhea, No constipation, No GI bleeding, No problem reported Musculoskeletal: No joint pain, No muscle pain, No swelling, No calf pain, No problem reported Genitourinary - Female: No dysuria, No urinary frequency, No urinary urgency , No urinary incontinence, No urinary retention, No hematuria, No dysmenorrhea, No menorrhagia, No metrorrhagia, No rash, No vaginal bleeding, No vaginal discharge, No vaginal itching, No vulvodynia, No , No problem reported Neurologic: No memory loss, No paralysis, No weakness, No numbness/tingling , No vertigo, No balance problems, No problem reported Psychiatric: No depression symptoms, No anhedonism, No anxiety, No insomnia , No substance abuse, No problem reported Endocrine: No fatigue, No excessive thirst, No excessive urination, No problem reported Hematologic / Lymphatic: No abnormal bleeding/bruising, No clotting problems , No swollen lymph nodes, No night sweats, No problem reported Integumentary: No rash, No itch, No new/changing skin lesions, No color change, No bleeding, No problem reported Physical Exam: General Appearance: no apparent distress Eyes: normal inspection, PERRL ENT: normal ENT inspection, TMs normal Neck: supple, no adenopathy Respiratory/Chest: chest non-tender, + decreased breath sounds, + wheezing ( occasional) Cardiovascular: regular rate, rhythm, no edema, no gallop, no JVD, no murmur , normal peripheral pulses Abdomen / GI: normal bowel sounds, non tender, soft, no organomegaly, no pulsatile mass Extremities: normal inspection, no calf tenderness, normal capillary refill , no pedal edema Neurologic/Psychiatric: 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 as tested, no motor/sensory deficits , alert, normal mood/affect, normal reflexes, oriented x 3 Skin: normal color, warm/dry, no rash Lymphatic: no adenopathy Hospital Course 72 y/o female readmitted because of generalized weakness deconditioning CHF exacerbation and elevated troponin Previous admission she was having influenza and influenza caused COPD exacerbation with worsening shortness of breath was just discharged for 2 days prior to this admission She was recommended to [facility] rehabilitation she declined, for now she agreed to [facility] severe weakness, stable and improving Likely secondary to influenza A and COPD exacerbation. Elevated troponin, possible troponin EKG not significant, denies chest pain and no any EKG changes Minimal elevated troponin because of demanding ischemia, no any signs of ACS Chronic systolic/diastolic CHF, EF 25-30% - continue beta dane and low-dose WALTER. EKG in the emergency room shows a flutter, which is new no more episodes in the tely, reviewed her medical record previously there was no such documentation , Currently is rate controlled, patient is moderated to high risk of stroke with her age, hx of CAD , acute on chronic respiratory failure and COPD hypertension , discussed with patient and daughter about risk and benefit of anti- combination, because patient has history of brain bleeding therefore will look you've any heparin per duct now a to continue SCD for deep venous compression to prevent DVT Acute on chronic respiratory failure secondary to combination of COPD exacerba Influenza A: has completed 5 days of Tamiflu, off precautions, no further treatment Acute on chronic diastolic HF continue Lasix WALTER inhibitor daily weight and input and output, Patient agreed to discharge to [facility] in this admission you have severe weakness, Likely secondary to influenza A and COPD exacerbation better, continue cough syrups you have mild elevated troponin ,and new identified aflutter episode , no medicine changes for now, but you need to 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 - call your primary care physician OR go to local emergency room if has any fever/chill, chest pain, shortness of breathing, nausea/vomiting/abdominal pain , facial droop/slurry speech/local weakness, or if has any questions. - fall precaution - diet as instructed Total Time Spent: Greater than 30 minutes This includes examination of the patient, discharge planning, medication reconciliation, and communication with other providers. Discharge Instructions Please refer to the electronic Patient Visit Report (Discharge Instructions) for additional information. Additional Copies To RV. Edwards MD
== END 2017-11-06 16:29 ==
LOC: C.EDB 13:39 → C.2T 18:41 → ENRESERV 18:46
PROVIDERS: ADMIT Internal Medicine; ATTEND Hospitalist
DX: R53.1 Weakness (principal); J44.1 Chronic obstructive pulmonary disease with (acute) exacerbation; I50.23 Acute on chronic systolic (congestive) heart failure; R26.9 Unspecified abnormalities of gait and mobility; E11.9 Type 2 diabetes mellitus without complications; I13.0 Hypertensive heart and chronic kidney disease with heart failure and stage 1 through stage 4 chronic kidney disease, or unspecified chronic kidney disease; E11.51 Type 2 diabetes mellitus with diabetic peripheral angiopathy without gangrene; N18.3 Chronic kidney disease, stage 3 (moderate); J96.20 Acute and chronic respiratory failure, unspecified whether with hypoxia or hypercapnia; I25.10 Atherosclerotic heart disease of native coronary artery without angina pectoris; E78.00 Pure hypercholesterolemia, unspecified; E78.5 Hyperlipidemia, unspecified; F17.200 Nicotine dependence, unspecified, uncomplicated; Z79.82 Long term (current) use of aspirin; Z79.899 Other long term (current) drug therapy; Z79.02 Long term (current) use of antithrombotics/antiplatelets; Z91.19 Patient's noncompliance with other medical treatment and regimen; Z79.01 Long term (current) use of anticoagulants; I25.2 Old myocardial infarction; Z95.0 Presence of cardiac pacemaker; Z95.810 Presence of automatic (implantable) cardiac defibrillator; Z66 Do not resuscitate

== ENCOUNTER 2017-11-18 05:34 | Inpatient (IN) | payer BC, OTHER ==
[2017-11-18] VITALS (13 sets, daily range): BP systolic 106–124; BP diastolic 53–66; PULSE 56–85; TEMP 35.7–36.7; O2SAT 94–100; BMI 22.9
[~2017-11-18] VITALS: Ht 157.5 cm; Wt 49.8 kg
[~2017-11-18 05:34] MED LIST changes: +RBTUDL5 PO
[2017-11-18] MEDS ORDERED: ALBUT/IPRATROP 3MG/0.5MG NEB 3 ML VIAL ONE (05:39)
[2017-11-18] MEDS ORDERED: ALBUT/IPRATROP 3MG/0.5MG NEB 3 ML VIAL INH ONE (05:45)
[2017-11-18 05:53] LABS: BASO % 0.1 %; BASO ABS # 0.01 K/uL (0-0.2); EOS % 1.1 %; EOS ABS # 0.08 K/uL (0-0.5); HEMATOCRIT 36.5 % (37-47); HEMOGLOBIN 11.9 g/dL (12.0-16.0); IG# 0.03 K/uL (0.00-0.02); LYMPH ABS # 1.59 K/uL (1.2-3.4); MEAN CORPUSCULAR HEMOGLOBIN 29.7 pg (25-34); MEAN CORPUSCULAR HGB CONC 32.6 g/dl (32-36); MONO % 10.8 %; MONO ABS # 0.78 K/uL (0.11-0.59); NEUT % 65.6 %; NEUT ABS # 4.75 K/uL (1.4-6.5); PLATELET COUNT 149 K/uL (130-400); RED CELL DISTRIBUTION WIDTH CV 19.8 % (11.5-14.5); RED CELL DISTRIBUTION WIDTH SD 65.8 fL (36.4-46.3); WHITE BLOOD COUNT 7.24 K/uL (4.8-10.8)
[2017-11-18] MEDS ORDERED: ACETAMINOPHEN 500 MG TAB PO STA (06:03)
[2017-11-18] MEDS ORDERED: VANCOMYCIN 1GM/270ML NSS IV STA (06:06)
[2017-11-18] MEDS ORDERED: PIPERACILLIN/TAZOBACTAM 3.375 GM/100ML D5W IV STA (06:06)
[2017-11-18 06:12] LABS: CALCIUM 8.5 mg/dl (8.5-10.1); CREATININE 1.06 mg/dl (0.60-1.20); POTASSIUM 4.8 mmol/L (3.5-5.1)
[2017-11-18] MEDS ORDERED: LORAZEPAM 2 MG/ML 1 ML VIAL IV STA (06:13)
--- NOTE | 2017-11-18 06:23 | EMERGENCY ROOM VISIT NOTE ---
History First contact with patient: 05:40 Chief Complaint: SHORTNESS OF BREATH Stated Complaint: SHORT OF BREATH Nursing Triage Summary: pt just d/c sat from [facility] fro copd and chf exh. pt had increase sob tonight even after using her combivent a lot. when ems arrived she was diaphoretic, grasping for things and o2 sats in 70s ems gave pt 2gm magnesium iv, 125mg solumedrol iv, 4mg zofran iv, 1/2mg alb neb tx and 1 duo neb tx. daughter at bedside History of Present Illness The patient is a 72 year old female who presents to the Emergency Room for evaluation of respiratory distress. She has had complex recent history with multiple admission over last year for COPD with several admissions recently for COPD exacerbation due to influenza. Was just released from [facility] following stay for weakness post hospitalization. Notes over night rapidly worsening difficulty breathing, fatigue and cough. called EMS. O2 sats 70% in the field. Med command by me for Cpap, Solumedrol, duoneb, magnesium and Zofran IV. On arrival patient notes feeling shob and nausea but denies other symptoms. Does admit some anxiety. No chest pain, syncope, abdominal pain, leg swelling nor other symptoms. No recent abx. Was recently on Tamiflu. No sick contacts. Review of Systems See HPI for pertinent positives & negatives. A total of 10 systems reviewed and were otherwise negative. Past Medical/Surgical History Medical Problems: (1) Acute and chronic respiratory failure with hypercapnia (2) Acute on chronic systolic (congestive) heart failure (3) AICD malfunction (4) ANEMIA NOS (5) ASTHMA, UNSPECIFIED (6) Cardiac defibrillator in place (7) CHF (congestive heart failure) (8) CHRONIC KIDNEY DISEASE, UNSPECIFIED (9) COPD (chronic obstructive pulmonary disease) (10) COPD exacerbation (11) COPD exacerbation (12) CORONARY ATHEROSCLEROSIS OF [place] CORONARY VESSEL (13) DIAB CASPER WO COMPL, TYPE II OR UNSPEC TYPE, NOT UNCNTRLD (14) Elevated troponin (15) Emphysema of lung (16) Hypoxia (17) Influenza A (18) Non compliance w medication regimen (19) Pulmonary congestion (20) PURE HYPERCHOLESTEROLEM (21) Respiratory distress (22) Syncope Family History Breast cancer Diabetes mellitus FH: heart disease Hypertension Kidney disease Kidney stones Lung disease Myocardial infarction Social History Smoking Status: Never Smoker Alcohol Use: occasionally Drug Use: none Marital Status: Housing Status: lives with family Occupation Status: retired Current/Historical Medications Scheduled Aspirin (Aspirin Chewable), 81 MG PO QPM Atorvastatin (Lipitor), 80 MG PO HS Carvedilol (Coreg), 12.5 MG PO BID Clopidogrel Bisulfate (Plavix), 75 MG PO QAM Docusate Sodium (Docusate Sodium), 1 CAP PO BID Ezetimibe (Zetia), 10 MG PO HS Fluticasone Prop/Salmeterol (Advair Diskus 500/50 60 Dose), 1 PUFFS INH BID Furosemide (Lasix), 40 MG PO QAM Hydrocortisone 2.5% (Rectal) (Anusol-Hc 2.5%), 1 APPLN TOP BID Ipratropium-Albuterol (Combivent Respimat), 1 PUFFS INH QID Lisinopril (Lisinopril), 5 MG PO QAM Pramipexole Dihydrochloride (Pramipexole Dihydrochlori), 0.25 MG PO HS Prednisone (Prednisone), 60 MG PO QAM Sertraline (Zoloft), 50 MG PO QAM Scheduled PRN Lorazepam (Ativan), 0.5 MG PO Q6H PRN for Anxiety Phenylephrine W/ Dm-GG (Mucinex Congestion & Coug 2.5-5-100 mg/5Ml), 5 ML PO Q4 PRN for MUCOUS/COUGH Physical Exam Vital Signs Date Time Temp Pulse Resp B/P (MAP) Pulse Ox O2 Delivery O2 Flow Rate FiO2 11/18/17 07:35 30 11/18/17 06:49 60 27 100/43 100 BiPAP 11/18/17 06:38 61 100 40 11/18/17 06:30 61 37 116/48 100 BiPAP 11/18/17 06:05 38.6 67 39 155/75 100 BiPAP 11/18/17 06:00 60 32 137/65 100 BiPAP 11/18/17 05:44 100 BiPAP 11/18/17 05:43 67 11/18/17 05:36 80 39 155/75 100 BiPAP Physical Exam GENERAL: Patient is acutely ill appearing and in moderate distress. HEENT: No acute trauma, normocephalic atraumatic, mucous membranes moist, no nasal congestion, no scleral icterus. NECK: No stridor, no adenopathy, no meningismus, trachea is midline. LUNGS: Diffuse tight lung sounds with diffuse wheezing HEART: Regular rate and rhythm. No murmurs, rubs, gallops appreciated. ABDOMEN: Soft, nontender, bowel sounds positive, no masses appreciated, no peritonitis. BACK: No midline tenderness, no CVA tenderness EXTREMITIES: Normal motion all extremities, no cyanosis, no edema. NEUROLOGIC: Alert and oriented, no acute motor or sensory deficits, no focal weakness, cranial nerves grossly intact. SKIN: Poor skin turgor, old bruising, no rash, no diaphoresis. Medical Decision & Procedures Laboratory Results Test 11/18/17 00:00 11/18/17 05:44 11/18/17 06:24 Influenza Type A Antigen Neg for Influ A (NEG) Influenza Type B Antigen Neg for Influ B (NEG) Immature Granulocyte % (Auto) 0.4 % White Blood Count 7.24 K/uL (4.8-10.8) Red Blood Count 4.01 M/uL (4.2-5.4) Hemoglobin 11.9 g/dL (12.0-16.0) Hematocrit 36.5 % (37-47) Mean Corpuscular Volume 91.0 fL (80-100) Mean Corpuscular Hemoglobin 29.7 pg (25-34) Mean Corpuscular Hemoglobin Concent 32.6 g/dl (32-36) Platelet Count 149 K/uL (130-400) Mean Platelet Volume 9.0 fL (7.4-10.4) Neutrophils (%) (Auto) 65.6 % Lymphocytes (%) (Auto) 22.0 % Monocytes (%) (Auto) 10.8 % Eosinophils (%) (Auto) 1.1 % Basophils (%) (Auto) 0.1 % Neutrophils # (Auto) 4.75 K/uL (1.4-6.5) Lymphocytes # (Auto) 1.59 K/uL (1.2-3.4) Monocytes # (Auto) 0.78 K/uL (0.11-0.59) Eosinophils # (Auto) 0.08 K/uL (0-0.5) Basophils # (Auto) 0.01 K/uL (0-0.2) Immature Granulocyte # (Auto) 0.03 K/uL (0.00-0.02) Est Creatinine Clear Calc Drug Dose 37.4 ml/min Magnesium Level 3.1 mg/dl (1.8-2.4) Total Bilirubin 0.7 mg/dl (0.2-1) Direct Bilirubin 0.2 mg/dl (0-0.2) Aspartate Amino Transf (AST/SGOT) 26 U/L (15-37) Alanine Aminotransferase (ALT/SGPT) 51 U/L (12-78) Alkaline Phosphatase 78 U/L (45-117) Total Creatine Kinase 36 U/L (26-192) Creatine Kinase MB 3.7 ng/ml (0.5-3.6) Creatine Kinase MB Ratio 10.3 (0-3.0) Pro-B-Type Natriuretic Peptide 67977 pg/ml (0-900) Total Protein 6.0 gm/dl (6.4-8.2) Albumin 3.0 gm/dl (3.4-5.0) Bedside Lactic Acid Venous 1.02 mmol/L (0.90-1.70) Medications Administered Medications (Trade) Dose Ordered Sig/Osmani Route Start Time Stop Time Status Last Admin Dose Admin Albuterol/ Ipratropium (Duoneb) 12 ml STK-MED ONCE .ROUTE 11/18/17 05:39 11/18/17 05:40 DC 11/18/17 05:39 12 ML Acetaminophen (Tylenol Tab) 1,000 mg NOW STAT PO 11/18/17 06:03 11/18/17 06:05 DC 11/18/17 06:10 1,000 MG Piperacillin Sod/ Tazobactam Sod (Zosyn Iv) 3.375 gm NOW STAT IV 11/18/17 06:06 11/18/17 06:07 DC 11/18/17 06:20 3.375 GM Vancomycin HCl (Vancomycin 1gm/ 270ml Nss) 1 gm NOW STAT IV 11/18/17 06:06 11/18/17 06:07 DC 11/18/17 06:21 1 GM Lorazepam (Ativan Inj) 0.5 mg NOW STAT IV 11/18/17 06:13 11/18/17 06:14 DC 11/18/17 06:20 0.5 MG Furosemide (Lasix Inj) 20 mg NOW STAT IV 11/18/17 06:32 11/18/17 06:33 DC 11/18/17 06:49 20 MG Medical Decision Differential: Infectious, Reactive Airway Disease, Pneumonia, Pneumothorax, COPD , CHF, ACS, Pulmonary Embolism, MSK, GI, Dissection, amongst other etiologies entertained. 72 yr old female with recent discharge from [facility] following recent admission here secondary to flu/copd. Med Command by me prior to patient arrival. Arrives in acute distress and story/exam consistent with COPD, though she is febrile thus cultures and abx, and CXR/BNP consistent with CHF. Switched form CPAP to Bipap on arrival with much improvement in breathing. Sats doing well and lungs clearly. With CXR will go ahead and start small dose lasix given mild low end BP. No evidence she is truly septic but with recent hospitalizations and fevers with respiratory difficulty I feel empiric ABX indicated. Recent flu positive but is now negative and as has 2 rounds of Tamiflu I do not feel she requires more Tamiflu currently. She was getting a bit anxious thus I gave dose of ativan which she previously has tolerated well. [] Medication Reconcilliation Current Medication List: was personally reviewed by me Blood Pressure Screening Patient's blood pressure: Normal blood pressure Impression Primary Impression: Acute exacerbation of CHF (congestive heart failure) Additional Impressions: COPD exacerbation Febrile illness, acute Critical Care I have personally spent greater than 90 minutes of critical care time in the direct management of this patient. This was a life/limb threatening event. This includes time spent evaluating patient, direct bedside care, chart review, placing orders, interpretation of diagnostic studies, discussion with consultants, patient, and family members, as well as other required patient management activities. This 90 minutes is in excess of all separately billable procedures. Departure Information Referrals RV. Edwards MD (PCP) Patient Instructions My [facility] Problem Qualifiers
[2017-11-18 06:26] LABS: CKMB 3.7 ng/ml (0.5-3.6)
[2017-11-18] MEDS ORDERED: FUROSEMIDE 40 MG/4 ML VIAL IV STA (06:32)
[2017-11-18] MEDS ORDERED: DOCU100C31 PO (06:38)
[2017-11-18] MEDS ORDERED: PHEN-652 PO (06:40)
[2017-11-18] MEDS ORDERED: HYDR2.5C37 TOP (06:40)
[2017-11-18 07:08] LABS: INFLUENZA B ANTIGEN Neg for Influ B (NEG)
--- NOTE | 2017-11-18 07:23 | DIAGNOSTIC IMAGING REPORT ---
CHEST ONE VIEW PORTABLE HISTORY: Short of breath. COMPARISON: Chest 11/04/2017. FINDINGS: The heart is mildly enlarged. Mild interstitial thickening at the lung bases. The upper lung zones are clear. No pneumothorax. Suspect trace bilateral pleural effusions. Left-sided pacemaker/defibrillator. IMPRESSION: 1. Interstitial thickening at the lung bases which is slightly progressed. This may represent developing congestive change. 2. Stable cardiomegaly. Electronically signed by: Alverto Pereira M.D. 11/18/2017 7:22 AM Dictated Date/Time: 11/18/2017 7:20 AM
[2017-11-18] MEDS ORDERED: ACETAMINOPHEN 325 MG TAB PO PRN (07:45)
[2017-11-18] MEDS ORDERED: NITROGLYCERIN 0.4 MG SL PER TAB CHARGE SL PRN (07:45)
[2017-11-18] MEDS ORDERED: VANCOMYCIN CONSULT ACTIVE PRN (07:45)
[2017-11-18] MEDS ORDERED: MAGNESIUM HYDROXIDE SUSP 30 ML UDC PO PRN (07:45)
[2017-11-18] MEDS ORDERED: ALUMINUM/MAGNESIUM/SIMETH (MAALOX MAX) 30 ML UDC PO PRN (07:45)
[2017-11-18] MEDS ORDERED: ONDANSETRON INJ 2 MG/ML 2 ML VIAL IV PRN (07:45)
[2017-11-18] MEDS ORDERED: FAMOTIDINE IV INJ 20 MG in DEXTROSE 5% 100ML 100 ML IV SCH (08:00)
--- NOTE | 2017-11-18 08:14 | History and Physical ---
History & Physical Date & Time of Service: Nov 18, 2017 at 07:42 Chief Complaint: Short Of Breath Primary Care Physician: RV. Edwards MD History of Present Illness Source: patient, family (DAUGHTER AT BEDSIDE), hospital records Ms. Jameson is a pleasant but complicated 72-year-old white female with a past medical history significant for CAD/inferior [place] 1999, hypertension, dyslipidemia , type 2 diabetes mellitus, COPD, tobacco abuse, chronic systolic/diastolic CHF due to ischemic cardiomyopathy (EF 25-30%), S/P Medtronic ICD/BiV pacemaker implantation 02/21/12 with elective generator replacement 02/21/2017, peripheral arterial disease (S/P right iliofemoral endarterectomy and popliteal/SFA angioplasties 05/04/13, mesenteric arterial occlusive disease S/P superior mesenteric stent placement 05/03/2017, carotid disease status post left CEA 1990 ), subarachnoid hemorrhage 05/31/2017, and recent hospital stay from 10/22/17 to 11/03/17 due to influenza A infection & COPD exacerbation (+/- acute/chronic CHF) . She was readmitted to [facility] on 11/04/17 due to severe weakness. During her stay for the influenza she was advised numerous times to attend rehab but refused. On 11/06/17 she was discharged to [facility]. The discharge summary dated 11/06/17 indicates she had a fairly uneventful hospitalization except for newly diagnosed atrial fibrillation. A decision was made NOT to anticoagulate her due to previous subarachnoid hemorrhage. Due to Ms. Jameson being on BIPAP most of the history was obtained from her daughter at bedside. According to the daughter she made decent progress with her rehab at [facility]. She did have 1 fall about 2 days prior to discharge, however. She was discharged home with her on Saturday AM, 11/16/17. At discharge she had no fever, chills, cough, dysuria, or other infectious symptoms. The patient did mention she gained about 1 pound/day while at [facility] despite her diuretic use. Upon d/c to home she continued on NC O2 2 liters continuously. Yesterday evening she began to feel unwell. She had a mild cough and had worsening dyspnea. About 2am this morning she woke her because of extreme dyspnea. When EMS arrived to her home she was satting in the 70s on 5 L NC. Due to her extreme distress they recommended intubation but she refused. BIPAP was applied, 125mg of solumedrol was given, and duoneb was administered. In our ER the BIPAP was continued, lasix was given, hour-long duoneb was given, and antibiotics were hung due to concern of pneumonia. She was febrile upon ER presentation. During my admission assessment she c/o mild abdominal pain in her epigastric region. Daughter mentioned she intermittently complained of this while at [facility]. However, it did not prevent her from eating as her daughter mentioned Ms. Jameson has been having good appetite. Past Medical/Surgical History PMH: 1. CAD s/p inferior wall [place] 1999 2. hypertension 3. dyslipidemia 4. type 2 diabetes mellitus 5. chronic hypoxic respiratory failure 2nd to COPD 6. ongoing tobacco dependence 7. chronic systolic/diastolic CHF 8. ischemic cardiomyopathy (EF 25-30%) 9. CKD stage 3 10. PAD 11. flu A infection requiring hospitalization 10/2017 12. subarachnoid hemorrhage 05/31/2017 PSH: 1. S/P Medtronic ICD/BiV pacemaker implantation 02/21/12 with elective generator replacement 02/21/2017 2. S/P right iliofemoral endarterectomy and popliteal/SFA angioplasties 05/04/13 3. mesenteric arterial occlusive disease S/P superior mesenteric stent placement 05/03/2017 4. 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) Immunizations History of Influenza Vaccine: Yes Influenza Vaccine Date: Oct 12, 2012 History of Tetanus Vaccine?: Unknown History of Pneumococcal: Unknown History of Hepatitis B Vaccine: No Multi-Drug Resistant Organisms History of MDRO: No Allergies Coded Allergies: Sulfa Antibiotics (Verified Allergy, Intermediate, RASH, 11/18/17) Morphine (Verified Adverse Reaction, Mild, GI SYMPTOMS, 11/18/17) Home Medications Scheduled Aspirin (Aspirin Chewable), 81 MG PO QPM Atorvastatin (Lipitor), 80 MG PO HS Carvedilol (Coreg), 12.5 MG PO BID Clopidogrel Bisulfate (Plavix), 75 MG PO QAM Docusate Sodium (Docusate Sodium), 1 CAP PO BID Ezetimibe (Zetia), 10 MG PO HS Fluticasone Prop/Salmeterol (Advair Diskus 500/50 60 Dose), 1 PUFFS INH BID Furosemide (Lasix), 40 MG PO QAM Hydrocortisone 2.5% (Rectal) (Anusol-Hc 2.5%), 1 APPLN TOP BID Ipratropium-Albuterol (Combivent Respimat), 1 PUFFS INH QID Lisinopril (Lisinopril), 5 MG PO QAM Pramipexole Dihydrochloride (Pramipexole Dihydrochlori), 0.25 MG PO HS Prednisone (Prednisone), 60 MG PO QAM Sertraline (Zoloft), 50 MG PO QAM Scheduled PRN Lorazepam (Ativan), 0.5 MG PO Q6H PRN for Anxiety Phenylephrine W/ Dm-GG (Mucinex Congestion & Coug 2.5-5-100 mg/5Ml), 5 ML PO Q4 PRN for MUCOUS/COUGH Review of Systems Constitutional: + fever (OVERNIGHT ONLY), + fatigue, + problem reported ( WEIGHT GAIN - " A POUND A DAY WHILE AT [facility] "), No chills Eyes: No worsening of vision ENT: No nasal symptoms, No sore throat, No trouble swallowing Respiratory: + cough, + wheezing, + dyspnea on exertion, + dyspnea at rest Cardiovascular: + orthopnea (OVERNIGHT), + edema, No chest pain Abdomen: + pain (EPIGASTRIC REGION FOR 1-2 WEEKS), No nausea, No vomiting, No diarrhea, No constipation Musculoskeletal: No joint pain, No muscle pain Genitourinary - Female: No dysuria Neurologic: + problem reported (DID HAVE A FALL AT [facility] 2 DAYS PRIOR TO DISCHARGE), No numbness/tingling Psychiatric: + depression symptoms (HAS TOLD FAMILY SHE IS READY TO ) Endocrine: + fatigue Hematologic / Lymphatic: + abnormal bleeding/bruising (BRUISING ON EXTREMITIES) Integumentary: No rash Physical Exam Vital Signs Date Time Temp Pulse Resp B/P (MAP) Pulse Ox O2 Delivery O2 Flow Rate FiO2 11/18/17 06:49 60 27 100/43 100 BiPAP 11/18/17 06:38 61 100 40 11/18/17 06:30 61 37 116/48 100 BiPAP 11/18/17 06:05 38.6 67 39 155/75 100 BiPAP 11/18/17 06:00 60 32 137/65 100 BiPAP 11/18/17 05:44 100 BiPAP 11/18/17 05:43 67 11/18/17 05:36 80 39 155/75 100 BiPAP General Appearance: + mild distress (tachypneic but minimal retractions, sleepy but arousable & able to answer questions), + thin Head: normocephalic, atraumatic Eyes: PERRL (lens implants b/l), sclerae normal ENT: + pertinent finding (TMs not seen due to cerumen; MM dry; no obvious thrush) Neck: no adenopathy, thyroid normal, + JVD (to the jaw) Respiratory/Chest: + respiratory distress (tachypnea, minimal retractions), + wheezing (extensive b/l, minimal rales bases) Cardiovascular: regular rate, rhythm, no gallop, no murmur, normal peripheral pulses (feet) Abdomen/GI: normal bowel sounds, soft, no organomegaly, + tenderness (high epigastric region) Back: normal inspection Extremities/Musculoskelatal: + pedal edema (2+ b/l to the calves) Neurologic/Psych: no motor/sensory deficits (strength 5/5 x 4 exts), alert, normal reflexes, oriented x 3 Skin: no rash, + pertinent finding (stage 1 sacral decub; scattered ecchymoses over legs) Lymphatic: no adenopathy (no cervical lad) Diagnostics Laboratory Results Results Past 24 Hours Test 11/18/17 00:00 11/18/17 05:44 11/18/17 06:24 Range/Units Influenza Type A Antigen Neg for Influ A NEG Influenza Type B Antigen Neg for Influ B NEG White Blood Count 7.24 4.8-10.8 K/uL Red Blood Count 4.01 4.2-5.4 M/uL Hemoglobin 11.9 12.0-16.0 g/dL Hematocrit 36.5 37-47 % Mean Corpuscular Volume 91.0 80-100 fL Mean Corpuscular Hemoglobin 29.7 25-34 pg Mean Corpuscular Hemoglobin Concent 32.6 32-36 g/dl Platelet Count 149 130-400 K/uL Mean Platelet Volume 9.0 7.4-10.4 fL Neutrophils (%) (Auto) 65.6 % Lymphocytes (%) (Auto) 22.0 % Monocytes (%) (Auto) 10.8 % Eosinophils (%) (Auto) 1.1 % Basophils (%) (Auto) 0.1 % Neutrophils # (Auto) 4.75 1.4-6.5 K/uL Lymphocytes # (Auto) 1.59 1.2-3.4 K/uL Monocytes # (Auto) 0.78 0.11-0.59 K/uL Eosinophils # (Auto) 0.08 0-0.5 K/uL Basophils # (Auto) 0.01 0-0.2 K/uL RDW Standard Deviation 65.8 36.4-46.3 fL RDW Coefficient of Variation 19.8 11.5-14.5 % Immature Granulocyte % (Auto) 0.4 % Immature Granulocyte # (Auto) 0.03 0.00-0.02 K/uL Venous Blood pH 7.30 7.36-7.41 Venous Blood Partial Pressure CO2 67 38.0-50.0 mmHg Venous Blood Partial Pressure O2 20 mmHg Venous Blood HCO3 32 mmol/L Venous Blood Oxygen Saturation < 60.0 % Venous Blood Base Excess 4.3 mEq/L Sodium Level 137 136-145 mmol/L Potassium Level 4.8 3.5-5.1 mmol/L Chloride Level 99 98-107 mmol/L Carbon Dioxide Level 30 21-32 mmol/L Anion Gap 8.0 3-11 mmol/L Blood Urea Nitrogen 46 7-18 mg/dl Creatinine 1.06 0.60-1.20 mg/dl Est Creatinine Clear Calc Drug Dose 37.4 ml/min Estimated GFR () 60.3 Estimated GFR (Non- 52.0 BUN/Creatinine Ratio 43.7 10-20 Random Glucose 168 70-99 mg/dl Calcium Level 8.5 8.5-10.1 mg/dl Magnesium Level 3.1 1.8-2.4 mg/dl Total Bilirubin 0.7 0.2-1 mg/dl Direct Bilirubin 0.2 0-0.2 mg/dl Aspartate Amino Transf (AST/SGOT) 26 15-37 U/L Alanine Aminotransferase (ALT/SGPT) 51 12-78 U/L Alkaline Phosphatase 78 45-117 U/L Total Creatine Kinase 36 26-192 U/L Creatine Kinase MB 3.7 0.5-3.6 ng/ml Creatine Kinase MB Ratio 10.3 0-3.0 Troponin I 0.135 0-0.045 ng/ml Pro-B-Type Natriuretic Peptide 24173 0-900 pg/ml Total Protein 6.0 6.4-8.2 gm/dl Albumin 3.0 3.4-5.0 gm/dl Bedside Lactic Acid Venous 1.02 0.90-1.70 mmol/L Microbiology Results 11/18/17 Blood Culture, Received Pending 11/18/17 Blood Culture, Received Pending Diagnostic Radiology cxr - IMPRESSION: 1. Interstitial thickening at the lung bases which is slightly progressed. This may represent developing congestive change. 2. Stable cardiomegaly. EKG ekg - ventricular pacing underlying a. fib or flutter? considerable artifact pvcs Impression Assessment and Plan Pleasant but complicated 72-year-old white female with a past medical history significant for CAD/inferior [place] 1999, hypertension, dyslipidemia, type 2 diabetes mellitus, COPD, tobacco abuse, chronic systolic/diastolic CHF due to ischemic cardiomyopathy (EF 25-30%), S/P Medtronic ICD/BiV pacemaker implantation 02/21/12 with elective generator replacement 02/21/2017, peripheral arterial disease (S/P right iliofemoral endarterectomy and popliteal/SFA angioplasties 05/04/13, mesenteric arterial occlusive disease S/P superior mesenteric stent placement 05/03/2017, carotid disease status post left CEA 1990 ), subarachnoid hemorrhage 05/31/2017, and recent hospital stay from 10/22/17 to 11/03/17 due to influenza A infection/COPD exacerbation/CHF exacerbation. Readmitted 11/04/17-11/06/17 for weakness and d/c to [facility], having been released to home on 11/16/17. She now presents with worsening respiratory distress and evidence of acute/ chronic hypercarbic/hypoxic respiratory failure likely 2nd to acute/chronic CHF & possible developing lung infection. 1. acute/chronic hypercarbic/hypoxic respiratory failure - * for the CHF component diurese * for the COPD exacerbation component will continue steroids - solumedrol 40mg q8h * scheduled nebs, mucinex, BIPAP, NPO until off BIPAP * repeat VBG now to ensure hypercarbia is improving * lengthy discussion held with patient in presence of daughter - twice she declined intubation and CPR - thus, level 5 DNR status * although she had recent flu A she is at risk of flu B - check flu PCR now 2. acute/chronic systolic & diastolic CHF - has gained a considerable amount of weight since her last admission. Given IV lasix in the ER. Reassess volume status later today. May need another dose of IV lasix this afternoon. Cont beta dane although her BPs are low-normal and thus will lower dose to 6.25mg BID of coreg. 3. recent dx of a. fib - noted. No anticoagulation at this time as this was discussed heavily with patient/family during previous stay. 4. COPD exacerbation - as noted in #1 above. Steroids, antibiotics, nebs, inhalers, etc. 5. fever, question of a developing pneumonia - reasonable to continue triple- antibiotic therapy for now due to high suspicion of pneumonia (RLL?). Check MRSA nasal swab - if negative d/c the vanco. Check flu PCR. Check u/a and urine culture. Blood cx's have been drawn & sent. 6. epigastric pain - previous imaging showed pancreatic divisum. At risk of pancreatitis - check lipase this AM. could be stress gastritis - start pepcid 20mg IV BID. could be her mesenteric ischemia. can't rule out anginal equivalent either. follow carefully. 7. T2DM - not on meds at home; while here, given the steroid use, cover w/ novolog ac/hs. Add lantus if needed. 8. DVT proph - heparin BID. 9. h/o SAH - noted. 10. CAD with +troponin - her troponins appear to be chronically elevated. it is not much different than the previous stay. This is likely demand ischemia in setting of her respiratory issues. Trend troponins q6h to be complete. Cont ASA, BB, statin, etc. 11. anxiety d/o - ativan prn cautiously in light of frail respiratory status. 12. HTN - lower coreg dose due to low-normal BPs. 13. CKD stage 3 - creatinine is at baseline. BMP daily. While here consider pulmonary & cardiology consultations. Will need PT, OT as well. Level of Care Telemetry Advanced Directives Existing Advance Directive: Yes Existing Living Will: Yes Resuscitation Status DO NOT RESUSCITATE VTE Prophylaxis VTE Risk Assessment Done? Y/N: Yes Risk Level: High Given or contraindicated: Unfractionated heparin SQ, SCD's Social Service Consult Receiving Home Health Note total visit time 70 min
[2017-11-18] MEDS ORDERED: FAMOTIDINE IV INJ 20 MG in SYRINGE 3 ML IV SCH (08:30)
[2017-11-18 08:39] LABS: INFLUENZA A PCR Neg for Influ A (NEG); INFLUENZA B PCR Neg for Influ B (NEG)
[2017-11-18] MEDS ORDERED: DEXTROSE 50% 50 ML SYR IV PRN (09:30)
[2017-11-18] MEDS ORDERED: GLUCOSE 40% GEL 15 GM TUBE PO PRN (09:30)
[2017-11-18] MEDS ORDERED: GLUCAGON FOR INJ 1 MG VIAL SQ PRN (09:30)
[2017-11-18] MEDS ORDERED: GLUCOSE 10 TABS/TUBE PO PRN (09:30)
[2017-11-18] MEDS ORDERED: LEVOFLOXACIN CONSULT ACTIVE PRN (09:30)
[2017-11-18] MEDS: HYDROCORTISONE HC 2.5% CRM 30GM TUBE EXT SCH ×2 (10:28→20:44)
[2017-11-18] MEDS: DOCUSATE SODIUM 100 MG CAP PO SCH ×2 (10:28→20:39)
[2017-11-18] MEDS: GUAIFENESIN 600 MG TABCR PO SCH ×3 (10:29→22:05)
[2017-11-18] MEDS: CARVEDILOL 6.25 MG TAB PO SCH ×2 (10:47→20:47)
[2017-11-18] MEDS: SERTRALINE HCL 50 MG TAB PO SCH (10:48)
[2017-11-18] MEDS: CLOPIDOGREL BISULFATE 75 MG TAB PO SCH (10:48)
[2017-11-18] MEDS: FLUTICASONE/SALMETEROL (ADVAIR) 500/50 INH 14 PUFF INH SCH ×2 (10:55→20:45)
[2017-11-18] MEDS: CEFEPIME IV 1,000 MG in SYRINGE 0 ML IV SCH ×2 (10:55→22:06)
[2017-11-18] MEDS: ALBUT/IPRATROP 3MG/0.5MG NEB 3 ML VIAL INH SCH ×3 (11:19→19:42)
--- NOTE | 2017-11-18 11:23 | Pharmacy Progress Note ---
Pharmacy Antibiotic Consult Date of Service: Nov 18, 2017. Pharmacy Dosing Scope Pharmacy is consulted to initiate vancomycin and levofloxacin IV dosing therapy , order appropriate labs and adjust drug dose/frequency. Subjective The patient is a 72 year old female admitted on Nov 18, 2017 at 07:40. Objective Height (Feet): 5 Height (Inches): 2.00 Weight (Kilograms): 56.900 Lab Results (24hrs): Test 11/18/17 00:00 11/18/17 05:44 11/18/17 06:24 11/18/17 07:51 Influenza Type A Antigen Neg for Influ A (NEG) Influenza Type B Antigen Neg for Influ B (NEG) White Blood Count 7.24 K/uL (4.8-10.8) Red Blood Count 4.01 M/uL (4.2-5.4) Hemoglobin 11.9 g/dL (12.0-16.0) Hematocrit 36.5 % (37-47) Mean Corpuscular Volume 91.0 fL (80-100) Mean Corpuscular Hemoglobin 29.7 pg (25-34) Mean Corpuscular Hemoglobin Concent 32.6 g/dl (32-36) Platelet Count 149 K/uL (130-400) Mean Platelet Volume 9.0 fL (7.4-10.4) Neutrophils (%) (Auto) 65.6 % Lymphocytes (%) (Auto) 22.0 % Monocytes (%) (Auto) 10.8 % Eosinophils (%) (Auto) 1.1 % Basophils (%) (Auto) 0.1 % Neutrophils # (Auto) 4.75 K/uL (1.4-6.5) Lymphocytes # (Auto) 1.59 K/uL (1.2-3.4) Monocytes # (Auto) 0.78 K/uL (0.11-0.59) Eosinophils # (Auto) 0.08 K/uL (0-0.5) Basophils # (Auto) 0.01 K/uL (0-0.2) RDW Standard Deviation 65.8 fL (36.4-46.3) RDW Coefficient of Variation 19.8 % (11.5-14.5) Immature Granulocyte % (Auto) 0.4 % Immature Granulocyte # (Auto) 0.03 K/uL (0.00-0.02) Venous Blood pH 7.30 (7.36-7.41) Venous Blood Partial Pressure CO2 67 mmHg (38.0-50.0) Venous Blood Partial Pressure O2 20 mmHg Venous Blood HCO3 32 mmol/L Venous Blood Oxygen Saturation < 60.0 % Venous Blood Base Excess 4.3 mEq/L Sodium Level 137 mmol/L (136-145) Potassium Level 4.8 mmol/L (3.5-5.1) Chloride Level 99 mmol/L (98-107) Carbon Dioxide Level 30 mmol/L (21-32) Anion Gap 8.0 mmol/L (3-11) Blood Urea Nitrogen 46 mg/dl (7-18) Creatinine 1.06 mg/dl (0.60-1.20) Est Creatinine Clear Calc Drug Dose 37.4 ml/min Estimated GFR () 60.3 Estimated GFR (Non- 52.0 BUN/Creatinine Ratio 43.7 (10-20) Random Glucose 168 mg/dl (70-99) Calcium Level 8.5 mg/dl (8.5-10.1) Magnesium Level 3.1 mg/dl (1.8-2.4) Total Bilirubin 0.7 mg/dl (0.2-1) Direct Bilirubin 0.2 mg/dl (0-0.2) Aspartate Amino Transf (AST/SGOT) 26 U/L (15-37) Alanine Aminotransferase (ALT/SGPT) 51 U/L (12-78) Alkaline Phosphatase 78 U/L (45-117) Total Creatine Kinase 36 U/L (26-192) Creatine Kinase MB 3.7 ng/ml (0.5-3.6) Creatine Kinase MB Ratio 10.3 (0-3.0) Troponin I 0.135 ng/ml (0-0.045) Pro-B-Type Natriuretic Peptide 48692 pg/ml (0-900) Total Protein 6.0 gm/dl (6.4-8.2) Albumin 3.0 gm/dl (3.4-5.0) Bedside Lactic Acid Venous 1.02 mmol/L (0.90-1.70) Urine Color YELLOW Urine Appearance CLEAR (CLEAR) Urine pH 6.0 (4.5-7.5) Urine Specific [place] 1.012 (1.000-1.030) Urine Protein NEG (NEG) Urine Glucose (UA) NEG (NEG) Urine Ketones NEG (NEG) Urine Occult Blood NEG (NEG) Urine Nitrite NEG (NEG) Urine Bilirubin NEG (NEG) Urine Urobilinogen NEG (NEG) Urine Leukocyte Esterase NEG (NEG) Test 11/18/17 07:58 11/18/17 08:08 11/18/17 10:57 Influenza Type A (RT-PCR) Neg for Influ A (NEG) Influenza Type B (RT-PCR) Neg for Influ B (NEG) Venous Blood pH 7.43 (7.36-7.41) Venous Blood Partial Pressure CO2 50 mmHg (38.0-50.0) Venous Blood Partial Pressure O2 42 mmHg Venous Blood HCO3 32 mmol/L Venous Blood Oxygen Saturation 73.9 % Venous Blood Base Excess 6.6 mEq/L Bedside Glucose 140 mg/dl (70-90) Assessment & Plan Patient with recent hospital stay for COPD exacerbation/influenza, return with symptoms concerning for pneumonia. Patient empirically started on vancomycin, levaquin, and cefepime. Patient does have a prolonged QTc but does have an ICD and is paced. Vancomycin: Loading dose: 1000 mg IV (given at 0600) X 1 dose then: 750 mg IV every 24 hours starting 11/19 @0600. Goal trough level estimate: between 15 - 20 mcg/mL. Peak and trough or random level has been ordered for: @0530. Levofloxacin: 750mg q48hrs Pharmacy will continue to follow and will adjust dose/frequency as necessary. Thank you
[2017-11-18] MEDS: METHYLPREDNISOLONE IV 40 MG in SYRINGE 0 ML IV SCH ×2 (11:58→20:44)
[2017-11-18] MEDS: LEVOFLOXACIN / D5W 750 MG in PREMIXED IN D5W 150 ML IV SCH (11:58)
[2017-11-18] MEDS: INSULIN ASPART 100 UNITS/ML 3 ML PEN SC SCH ×3 (11:58→21:00)
[2017-11-18] MEDS: LACTOBACILLUS ACIDOPHILUS (FLORANEX) TAB PO SCH ×3 (11:59→17:00)
[2017-11-18] MEDS ORDERED: CEFEPIME IV 1,000 MG in DEXTROSE 5% 100ML 100 ML IV SCH (12:00)
[2017-11-18] MEDS: FAMOTIDINE IV INJ 20 MG in SYRINGE 3 ML IV SCH (20:43)
[2017-11-18] MEDS: LORAZEPAM 0.5 MG TAB PO PRN (20:45)
[2017-11-18] MEDS: EZETIMIBE 10MG TAB PO SCH (20:45)
[2017-11-18] MEDS: ASPIRIN 81 MG CHEW PO SCH (20:48)
[2017-11-18] MEDS: ATORVASTATIN 40 MG TAB PO SCH (20:49)
[2017-11-18] MEDS: HEPARIN SOD 5000 UNIT/0.5 ML CARP SQ SCH (20:52)
[2017-11-18] MEDS ORDERED: VANCOMYCIN INJ 1,000 MG in SODIUM CHLORIDE 0.9% 250ML 250 ML IV SCH (21:00)
--- NOTE | 2017-11-18 21:05 | Progress Note ---
Progress Note Date of Service Nov 18, 2017. Progress Note time - 2100 this afternoon I visited with the patient. she was doing much better; breathing comfortably on BIPAP. lungs more clear on exam (still with wheeze but better). asked RN/RT to d/c BIPAP, transition to NC O2; titrate for sats low 90s. has diuresed 2+ liters at minimum since the AM. MRSA [employer] swab neg; will d/c vanco CXR in am. Zen CERVANTES MD
[2017-11-18] MEDS: PRAMIPEXOLE DIHYDROCHLORIDE 0.25MG TAB PO SCH (22:05)
[2017-11-19] VITALS (11 sets, daily range): BP systolic 116–149; BP diastolic 57–79; PULSE 60–98; TEMP 36.3–36.7; O2SAT 93–100; Ht 157.5 cm; Wt 49.8 kg
[2017-11-19] MEDS: METHYLPREDNISOLONE IV 40 MG in SYRINGE 0 ML IV SCH ×2 (03:54→12:00)
[2017-11-19] MEDS ORDERED: VANCOMYCIN INJ 750 MG in SODIUM CHLORIDE 0.9% 250ML 250 ML IV SCH (06:00)
[2017-11-19] MEDS: INSULIN ASPART 100 UNITS/ML 3 ML PEN SC SCH ×4 (06:30→21:43)
[2017-11-19 07:32] LABS: HEMATOCRIT 30.1 % (37-47); HEMOGLOBIN 9.8 g/dL (12.0-16.0); MEAN CELL VOLUME 89.1 fL (80-100); MEAN CORPUSCULAR HGB CONC 32.6 g/dl (32-36); MEAN PLATELET VOLUME 8.8 fL (7.4-10.4); PLATELET COUNT 121 K/uL (130-400); RED CELL DISTRIBUTION WIDTH CV 19.5 % (11.5-14.5); RED CELL DISTRIBUTION WIDTH SD 63.6 fL (36.4-46.3); WHITE BLOOD COUNT 4.56 K/uL (4.8-10.8)
[2017-11-19] MEDS: ALBUT/IPRATROP 3MG/0.5MG NEB 3 ML VIAL INH SCH ×4 (07:33→19:20)
--- NOTE | 2017-11-19 07:58 | DIAGNOSTIC IMAGING REPORT ---
CHEST 2 VIEWS ROUTINE CLINICAL HISTORY: chf, ?pneumonia dyspnea COMPARISON STUDY: 11/18/2017 FINDINGS: Findings of mildly progressive congestive heart failure. Mildly progressive cardiac enlargement. Persistent atelectasis versus effusion left base. IMPRESSION: Mildly progressive congestive heart failure. The above report was generated using voice recognition software. It may contain grammatical, syntax or spelling errors. Electronically signed by: César Muñoz M.D. 11/19/2017 7:57 AM Dictated Date/Time: 11/19/2017 7:49 AM
[2017-11-19 08:01] LABS: CALCIUM 8.5 mg/dl (8.5-10.1); CREATININE 1.09 mg/dl (0.60-1.20); POTASSIUM 3.9 mmol/L (3.5-5.1)
[2017-11-19] MEDS: FAMOTIDINE IV INJ 20 MG in SYRINGE 3 ML IV SCH ×2 (08:03→20:33)
[2017-11-19] MEDS: FLUTICASONE/SALMETEROL (ADVAIR) 500/50 INH 14 PUFF INH SCH ×2 (08:04→20:24)
[2017-11-19] MEDS: CLOPIDOGREL BISULFATE 75 MG TAB PO SCH (08:04)
[2017-11-19] MEDS: HYDROCORTISONE HC 2.5% CRM 30GM TUBE EXT SCH ×2 (08:06→20:26)
[2017-11-19] MEDS: CARVEDILOL 6.25 MG TAB PO SCH (08:06)
[2017-11-19] MEDS: HEPARIN SOD 5000 UNIT/0.5 ML CARP SQ SCH ×2 (08:09→20:37)
[2017-11-19] MEDS: DOCUSATE SODIUM 100 MG CAP PO SCH ×2 (08:14→20:27)
[2017-11-19] MEDS: GUAIFENESIN 600 MG TABCR PO SCH ×2 (08:57→20:27)
[2017-11-19] MEDS: LACTOBACILLUS ACIDOPHILUS (FLORANEX) TAB PO SCH ×3 (08:57→17:10)
[2017-11-19] MEDS: SERTRALINE HCL 50 MG TAB PO SCH (08:58)
[2017-11-19] MEDS ORDERED: FUROSEMIDE INJ 40 MG in SYRINGE 0 ML IV ONE (10:00)
[2017-11-19] MEDS: POTASSIUM CHLORIDE 20 MEQ TABCR PO SCH ×2 (10:56→20:24)
[2017-11-19] MEDS: CEFEPIME IV 1,000 MG in SYRINGE 0 ML IV SCH (10:56)
[2017-11-19] MEDS: LORAZEPAM 0.5 MG TAB PO PRN ×2 (10:57→20:25)
--- NOTE | 2017-11-19 18:23 | Progress Note ---
Subjective Date of Service: Nov 19, 2017. Subjective Pt evaluation today including: conversation w/ patient, physical exam, chart review, lab review, review of studies (cxr), review of inpatient medication list Pain: epigastric discomfort - but better today PO Intake: 100% of meals consumed Voiding: mckeon catheter in place tele - paced, with 1 run of what appears to be PAF this AM pt did report palpitations this AM, possibly corresponding to the PAF above she asks why her left leg is always a bit more swollen than the right breathing MUCH better but still with cough; no sputum dyspnea improved no fever or chills reading a book upon my arrival Problem List Medical Problems: (1) Acute asthma exacerbation Status: Acute (2) Acute bronchitis Status: Acute (3) Acute exacerbation of CHF (congestive heart failure) Status: Acute (4) Acute MN Status: Acute (5) Anemia Status: Acute (6) CHF (congestive heart failure) Status: Acute (7) CHF (congestive heart failure) Status: Acute (8) CHF (congestive heart failure) Status: Acute (9) COPD (chronic obstructive pulmonary disease) Status: Acute (10) Elevated troponin Status: Acute (11) Facial contusion Status: Acute (12) Febrile illness, acute Status: Acute (13) Hyponatremia Status: Acute (14) Hypoxia Status: Acute (15) Influenza Status: Acute (16) Intracranial bleeding Status: Acute (17) Intractable nausea and vomiting Status: Acute (18) Mesenteric ischemia Status: Acute (19) Mesenteric ischemia Status: Acute (20) Multiple contusions Status: Acute (21) Nausea Status: Acute (22) Pulmonary edema Status: Acute (23) Pulmonary edema Status: Acute (24) Respiratory distress Status: Acute (25) Respiratory failure Status: Acute (26) SOB (shortness of breath) Status: Acute (27) Syncope Status: Acute Review of Systems Constitutional: No fever, No chills Respiratory: + cough, + wheezing, + shortness of breath, + dyspnea on exertion , No sputum Cardiac: + edema, No chest pain, No orthopnea, No PND Abdomen: + pain, No nausea, No vomiting, No diarrhea Objective Vital Signs Date Time Temp Pulse Resp B/P (MAP) Pulse Ox O2 Delivery O2 Flow Rate FiO2 11/19/17 16:00 Nasal Cannula 2.0 11/19/17 15:57 67 18 99 Nasal Cannula 2.0 11/19/17 15:36 36.7 62 20 126/75 (92) 99 2.0 11/19/17 12:59 60 100 11/19/17 12:00 Nasal Cannula 2.0 11/19/17 11:54 66 19 98 Nasal Cannula 2.0 11/19/17 11:54 36.3 69 18 116/67 (83) 99 Nasal Cannula 11/19/17 09:34 99 Nasal Cannula 2.0 11/19/17 09:23 36.3 69 19 128/79 (95) 93 Room Air 11/19/17 08:00 Nasal Cannula 2.0 11/19/17 07:33 66 19 98 Nasal Cannula 2.0 11/19/17 04:00 100 Nasal Cannula 2.0 11/19/17 04:00 36.3 60 20 127/60 (82) 95 2.0 11/19/17 00:00 100 Nasal Cannula 2.0 11/18/17 23:46 36.7 56 18 112/53 (72) 100 2.0 11/18/17 21:00 60 114/62 (79) 11/18/17 20:21 36.4 59 16 112/66 (81) 98 Nasal Cannula 2.0 11/18/17 20:00 Nasal Cannula 2.0 11/18/17 19:42 61 19 98 Nasal Cannula 2.0 Physical Exam General Appearance: no apparent distress, + thin ENT: pharynx normal Neck: + JVD Respiratory/Chest: no respiratory distress, no accessory muscle use, + wheezing (extensive b/l but airation is good; no rales) Cardiovascular: regular rate, rhythm, no gallop, no murmur Abdomen: normal bowel sounds, non tender, soft, no organomegaly Extremities: + pedal edema (1+ on left, trace on right; varicose veins, left leg) Neurologic/Psychiatric: alert, oriented x 3 Laboratory Results Last 24 Hours Test 11/18/17 20:56 11/19/17 07:15 11/19/17 07:20 11/19/17 11:24 Bedside Glucose 172 mg/dl 186 mg/dl 213 mg/dl White Blood Count 4.56 K/uL Red Blood Count 3.38 M/uL Hemoglobin 9.8 g/dL Hematocrit 30.1 % Mean Corpuscular Volume 89.1 fL Mean Corpuscular Hemoglobin 29.0 pg Mean Corpuscular Hemoglobin Concent 32.6 g/dl RDW Standard Deviation 63.6 fL RDW Coefficient of Variation 19.5 % Platelet Count 121 K/uL Mean Platelet Volume 8.8 fL Sodium Level 137 mmol/L Potassium Level 3.9 mmol/L Chloride Level 98 mmol/L Carbon Dioxide Level 33 mmol/L Anion Gap 7.0 mmol/L Blood Urea Nitrogen 45 mg/dl Creatinine 1.09 mg/dl Est Creatinine Clear Calc Drug Dose 36.4 ml/min Estimated GFR () 58.3 Estimated GFR (Non- 50.3 BUN/Creatinine Ratio 41.1 Random Glucose 153 mg/dl Calcium Level 8.5 mg/dl Assessment and Plan Pleasant but complicated 72-year-old white female with a past medical history significant for CAD/inferior [place] 1999, hypertension, dyslipidemia, type 2 diabetes mellitus, COPD, tobacco abuse, chronic systolic/diastolic CHF due to ischemic cardiomyopathy (EF 25-30%), S/P [employer] ICD/BiV pacemaker implantation 02/21/12 with elective generator replacement 02/21/2017, peripheral arterial disease (S/P right iliofemoral endarterectomy and popliteal/SFA angioplasties 05/04/13, mesenteric arterial occlusive disease S/P superior mesenteric stent placement 05/03/2017, carotid disease status post left CEA 1990 ), subarachnoid hemorrhage 05/31/2017, and recent hospital stay from 10/22/17 to 11/03/17 due to influenza A infection/COPD exacerbation/CHF exacerbation. Readmitted 11/04/17-11/06/17 for weakness and d/c to [facility], having been released to home on 11/16/17. She presented with worsening respiratory distress and evidence of acute/chronic hypercarbic/hypoxic respiratory failure likely 2nd to acute/chronic CHF & possible developing lung infection. 1. acute/chronic hypercarbic/hypoxic respiratory failure - likely combination of COPD exacerbation and acute/chronic CHF. Improved; off BIPAP; diuresing well. 2. acute/chronic systolic & diastolic CHF - nice diuresis thus far with IV lasix. Continue lasix. now that BPs have normalized will increase her coreg back to usual dose of 12.5mg BID. resume WALTER tomorrow AM if BPs will allow 3. recent dx of a. fib - noted. No anticoagulation at this time as this was discussed heavily with patient/family during previous stay and she opted against such due to prior SAH episode in 2017 PAF overnight noted on monitor. Cont telemetry status. 4. COPD exacerbation - improved. No evidence of discrete pneumonia on cxr today. d/c cefepime. reduce steroids to q12h. cont nebs, inhalers, etc. 5. fever, question of a developing pneumonia - repeat cxr today w/o discrete pneumonia. d/c cefepime. reasonable to continue levaquin due to COPD exacerbation. 6. epigastric pain - LFTs, lipase wnl. seems improved with IV pepcid - stress gastritis? mild drop in H/H overnight - guaiac her stool. CBC in am. she reports that the pain is much different than the pain she had with her mesenteric ischemia. doubt abd pain is anginal equivalent. 7. T2DM - cont novolog ac/hs. Probably needs low-dose lantus. 8. DVT proph - heparin BID. 9. h/o SAH - noted. 10. CAD with +troponin - her troponins appear to be chronically elevated. it is not much different than the previous stay. This is likely demand ischemia in setting of her respiratory issues. Cont ASA, BB, statin, plavix, etc. 11. anxiety d/o - ativan prn cautiously in light of frail respiratory status. 12. HTN - increase coreg to usual home dose. Consider restarting WALTER tomorrow. 13. CKD stage 3 - creatinine is at baseline. BMP daily. 14. anemia - mildly worse today; guaiac her stool; CBC in am PT, OT evals. consider d/c mckeon tomorrow. Will ask Dr. Flynn to see her tomorrow given her recurrent CHF. Did recent prednisone use lead to fluid retention and her current CHF flare? Continued [facility] stay due to: ambulation difficulties, multiple IV medications needed Discharge planning: uncertain
[2017-11-19] MEDS: ATORVASTATIN 40 MG TAB PO SCH (20:24)
[2017-11-19] MEDS: EZETIMIBE 10MG TAB PO SCH (20:25)
[2017-11-19] MEDS: PRAMIPEXOLE DIHYDROCHLORIDE 0.25MG TAB PO SCH (20:25)
[2017-11-19] MEDS: ASPIRIN 81 MG CHEW PO SCH (20:26)
--- NOTE | 2017-11-19 21:16 | DIAGNOSTIC IMAGING REPORT ---
L VENOUS DOPP LOWER EXT UNILAT CLINICAL HISTORY: 72 years-old Female presenting with edema left leg, eval for DVT. TECHNIQUE: Real-time grayscale and color and spectral Doppler ultrasound imaging of the veins of the left lower extremity was performed. Compression and augmentation were also utilized. COMPARISON: None. FINDINGS: Left: Common femoral vein: Patent. Greater saphenous vein: Patent. Deep femoral vein: Patent. Femoral vein: Patent. Popliteal vein: Patent. Calf veins: Limited visualization. Other: Popliteal cyst noted. IMPRESSION: No evidence of deep venous thrombosis. Electronically signed by: Bob Calvert M.D. 11/19/2017 9:14 PM Dictated Date/Time: 11/19/2017 9:13 PM
[2017-11-19] MEDS: INSULIN GLARGINE SOLOSTAR 100 UNITS/ML 3 ML PEN SC SCH (21:43)
[2017-11-19] MEDS: CARVEDILOL 12.5 MG TAB PO SCH (22:14)
[2017-11-19 22:52] LABS: HEMATOCRIT 29.9 % (37-47); HEMOGLOBIN 9.5 g/dL (12.0-16.0); IG# 0.01 K/uL (0.00-0.02); LYMPH % 6.3 %; MEAN CELL VOLUME 89.8 fL (80-100); MEAN CORPUSCULAR HEMOGLOBIN 28.5 pg (25-34); MEAN PLATELET VOLUME 9.6 fL (7.4-10.4); MONO % 7.9 %; MONO ABS # 0.38 K/uL (0.11-0.59); NEUT % 85.6 %; NEUT ABS # 4.09 K/uL (1.4-6.5); PLATELET COUNT 124 K/uL (130-400); RED CELL DISTRIBUTION WIDTH SD 62.7 fL (36.4-46.3); WHITE BLOOD COUNT 4.78 K/uL (4.8-10.8)
[2017-11-19 22:56] LABS: MEAN CORPUSCULAR HGB CONC 31.8 g/dl (32-36)
[2017-11-20] VITALS (12 sets, daily range): BP systolic 90–152; BP diastolic 46–67; PULSE 60–73; TEMP 36.4–36.9; O2SAT 95–99
[2017-11-20 00:03] LABS: PTT PATIENT 28.5 SECONDS (21.0-31.0)
[2017-11-20] MEDS: METHYLPREDNISOLONE IV 40 MG in SYRINGE 0 ML IV SCH ×2 (01:13→12:01)
[2017-11-20] MEDS ORDERED: VANCOMYCIN TROUGH ONE (05:30)
[2017-11-20] MEDS: ALBUT/IPRATROP 3MG/0.5MG NEB 3 ML VIAL INH SCH ×4 (06:14→19:09)
[2017-11-20 06:17] LABS: HEMATOCRIT 30.3 % (37-47); HEMOGLOBIN 9.9 g/dL (12.0-16.0); MEAN CELL VOLUME 89.6 fL (80-100); MEAN CORPUSCULAR HEMOGLOBIN 29.3 pg (25-34); MEAN CORPUSCULAR HGB CONC 32.7 g/dl (32-36); MEAN PLATELET VOLUME 9.2 fL (7.4-10.4); PLATELET COUNT 135 K/uL (130-400); RED CELL DISTRIBUTION WIDTH CV 19.1 % (11.5-14.5); RED CELL DISTRIBUTION WIDTH SD 63.5 fL (36.4-46.3); WHITE BLOOD COUNT 4.81 K/uL (4.8-10.8)
[2017-11-20] MEDS: INSULIN ASPART 100 UNITS/ML 3 ML PEN SC SCH ×4 (06:30→21:23)
[2017-11-20 06:57] LABS: CALCIUM 8.7 mg/dl (8.5-10.1); CREATININE 1.29 mg/dl (0.60-1.20); POTASSIUM 4.4 mmol/L (3.5-5.1)
[2017-11-20] MEDS: HYDROCORTISONE HC 2.5% CRM 30GM TUBE EXT SCH ×2 (07:29→20:30)
[2017-11-20] MEDS: FLUTICASONE/SALMETEROL (ADVAIR) 500/50 INH 14 PUFF INH SCH ×2 (07:29→20:30)
[2017-11-20] MEDS: CARVEDILOL 12.5 MG TAB PO SCH ×2 (07:30→20:32)
[2017-11-20] MEDS: HEPARIN SOD 5000 UNIT/0.5 ML CARP SQ SCH ×2 (07:30→20:35)
[2017-11-20] MEDS: DOCUSATE SODIUM 100 MG CAP PO SCH ×2 (07:30→20:32)
[2017-11-20] MEDS: POTASSIUM CHLORIDE 20 MEQ TABCR PO SCH ×2 (07:30→20:31)
[2017-11-20 07:31] LABS: PTT PATIENT 26.9 SECONDS (21.0-31.0)
[2017-11-20] MEDS: CLOPIDOGREL BISULFATE 75 MG TAB PO SCH (07:31)
[2017-11-20] MEDS: GUAIFENESIN 600 MG TABCR PO SCH ×2 (07:32→20:34)
[2017-11-20] MEDS: SERTRALINE HCL 50 MG TAB PO SCH (07:32)
[2017-11-20] MEDS: LACTOBACILLUS ACIDOPHILUS (FLORANEX) TAB PO SCH ×3 (07:32→17:43)
[2017-11-20] MEDS: FAMOTIDINE IV INJ 20 MG in SYRINGE 3 ML IV SCH (07:35)
[2017-11-20] MEDS: LEVOFLOXACIN / D5W 750 MG in PREMIXED IN D5W 150 ML IV SCH (12:01)
[2017-11-20] MEDS: LORAZEPAM 0.5 MG TAB PO PRN (16:03)
--- NOTE | 2017-11-20 16:30 | CARDIOLOGY CONSULTATION ---
DATE OF CONSULTATION: 11/20/2017 PRIMARY PHYSICIAN: Edy Duncan MD ATTENDING AND REFERRING PHYSICIAN: Maninder Cuevas MD CONSULTATION: Otto Flynn MD HISTORY OF PRESENT ILLNESS: This patient is a 72-year-old white female. Longstanding history of diffuse vascular disease including coronary artery disease, cerebrovascular disease, and peripheral vascular disease. History of severe COPD/emphysema, tobacco abuse, systolic and diastolic congestive heart failure, ischemic cardiomyopathy, biventricular pacemaker/ICD, chronic atrial fibrillation, and a history of subarachnoid hemorrhage in May of 2017. She has had admissions in April of 2017, August of 2017, October 2017, and now for acute on chronic respiratory failure. With most of these admissions, it is felt to have been a combination of her underlying lung disease as well as acute on chronic heart failure. On her 10/22/2017 admission, she was diagnosed with influenza type A. She was admitted from 10/22/2017 to 11/03/2017. She was readmitted from 11/04/2017 to 11/06/2017. She was then transferred to [facility]. She states that she went home on 11/16/2017. At [facility], she reports that she was becoming progressively short of breath. On her first night at home, she had severe dyspnea at rest as well as orthopnea. She was compliant with her medications and a low sodium diet. Because of her progressively worsening dyspnea, her family called EMS. She was reported to have oxygen saturations in the 70%-80% range on 5 liters per minute nasal cannula oxygen. It had been recommended to her by the EMS crew that she be intubated. She refuses. She was placed on BiPAP. She was treated with nebulizers and intravenous steroids. On arrival to the Emergency Department, she was also given intravenous furosemide. She has continued to receive intravenous steroids since admission. She is also receiving the nebulizer treatments as well as antibiotics. She has been treated with intravenous diuretics in the form of furosemide. With these treatments, she states that her dyspnea has markedly improved. She was seen by me this morning in her telemetry unit room. No dyspnea at rest. No orthopnea overnight. However, she does sleep with her head of the bed elevated approximately 45 degrees. She has a nonproductive cough. She states that with her severe dyspnea, she did have associated wheezing. No complaint of wheezing this morning. No lightheadedness or syncope. Sensation of palpitations this morning. No current palpitations. No abdominal pain or nausea. No symptoms of bleeding. No focal neurologic symptoms. Bilateral leg weakness. She also had edema of both legs. She states that this has improved since admission. Her appetite is good. She currently has a Tyson catheter in place. She had had no recent urinary tract symptoms. She did have complaint of fever at the time of admission. She was found to have an elevated rectal temperature of 38.6 on arrival to the Emergency Department. PAST MEDICAL HISTORY: 1. Coronary artery disease. Status post inferior VA in 1999. Cardiac catheterization at that time revealed 20% proximal LAD, 99% left circumflex, 40% LAD diagonal, and 40% mid RCA stenosis. Unsuccessful attempts at PTCA to left circumflex stenosis. 2. Ischemic cardiomyopathy. Echocardiogram on 02/17/2017 with LV ejection fraction 25%-30%, lateral wall and apex akinetic. Basal anterior and inferior borges moderately hypokinetic. Mildly reduced right ventricular systolic function. Biatrial dilatation. Severe mitral regurgitation and mild tricuspid regurgitation. Mildly elevated estimated right ventricular systolic pressure. Mild to moderate aortic regurgitation. Mildly dilated inferior vena cava. 3. Status post implantation of biventricular pacemaker/ICD on 02/21/2012. Elective generator replacement on 02/21/2017. 4. Peripheral arterial disease. Severe atherosclerotic disease of her abdominal vasculature as well as her vasculature of her legs. Status post right iliofemoral endarterectomy and popliteal/SFA angioplasties on April 2013. History of occlusive mesenteric arterial disease. Status post superior mesenteric stent placement on 05/03/2017. performed at the [facility]. 5. Carotid artery disease. Status post left carotid endarterectomy in 1990. 6. Chronic kidney disease. 7. Chronic obstructive pulmonary disease and emphysema. 8. Status post subarachnoid hemorrhage on 05/31/2017. 9. Persistent and now chronic atrial fibrillation. Anticoagulation therapy contraindicated because of her subarachnoid hemorrhage in May of 2017. 10. Chronic reflux esophagitis. 11. Chronic kidney disease. 12. Dyslipidemia. 13. Hypertension. 14. Chronic left bundle branch block. 15. History of hypomagnesemia and hyponatremia. 16. History of traumatic retroperitoneal hematoma. 17. Status post total abdominal hysterectomy and bilateral oophorectomy. 18. Status post carpal tunnel release surgery. ALLERGIES AND ADVERSE DRUG REACTIONS: SULFA DRUGS AND MORPHINE. FAMILY HISTORY: History of VA in both of her parents. Family history of diabetes mellitus and renal disease. SOCIAL HISTORY: The patient is and lives with her . Longstanding history of cigarette smoking. She still smokes cigarettes. She does not drink alcohol. MEDICATIONS: She received intravenous furosemide on both November 18 and . Her admission furosemide dose was 40 mg q.a.m. CURRENT MEDICATIONS: Include levofloxacin 750 mg p.o. every 2 days, methylprednisolone 40 mg IV q. 12 hours, carvedilol 12.5 mg b.i.d., Lantus insulin 8 units at bedtime, potassium chloride 20 mEq b.i.d., subQ heparin 5000 units q. 12 hours, aspirin 81 mg daily, atorvastatin 80 mg daily, Zetia 10 mg at bedtime, Mirapex 0.25 mg at bedtime, famotidine 20 mg IV b.i.d., Floranex 4 tabs p.o. t.i.d., DuoNeb 3 mL nebulizer q.i.d., NovoLog sliding scale insulin, clopidogrel 75 mg daily, docusate sodium 100 mg b.i.d., Advair Diskus 500/50 one puff b.i.d., sertraline 50 mg q.a.m., hydrocortisone cream 1 application b.i.d., and several p.r.n. medications. Monitor reviewed by me. Ventricular paced rhythm. Underlying atrial fibrillation. Intake and output on November 18, 925/5350. On November 19, 580/1700. Today 551/650. Admission weight was 56.9 kg. Today's weight 52.3 kg. PHYSICAL EXAMINATION: GENERAL: Today shows her to be sitting up in her bed. Supplemental nasal cannula oxygen in place. No distress. No respiratory difficulty noted. VITAL SIGNS: This morning with oral temperature 36.4, pulse 67, blood pressure 145/61, and pulse oximetry 2 liters per nasal cannula oxygen 99%. HEAD: Normal. EYES: Pupils equal and round. Anicteric. Conjunctivae normal. MOUTH: Dry mucous membranes. NECK: Jugular venous pressure approximately 8-9 cm. Carotid pulses palpable bilaterally. Right carotid bruit. Normal carotid upstroke. LUNGS: Decreased breath sounds at both bases. No rales, wheezes, or rhonchi heard. HEART: Regular rate and rhythm. PMI normal No lifts or heaves. No S3. 2/6 systolic murmur at the second right intercostal space, left sternal border, and apex. No diastolic murmur or rub heard. ABDOMEN: Soft. Nontender. Normal bowel sounds. No palpable masses or organomegaly. No bruits. EXTREMITIES: Trace to 1+ pretibial edema bilaterally. No calf tenderness. SKIN: Multiple ecchymoses on both arms. NEUROLOGIC: Alert and oriented x3. Motor grossly intact. She can move all extremities. PSYCHIATRIC: Affect is normal. DATA: Electrocardiogram on November 18 with ventricular paced rhythm. Underlying atrial fibrillation. Ventricular rate 68 beats per minute. ECG reviewed by me. Chest x-ray on November 18 and reviewed by me showed increased heart size, pacemaker/ICD generator, biventricular pacemaker and ICD leads, increased interstitial markings in the mid to lower lung english, and evidence of interstitial edema. Ultrasound of her left leg on November 19 revealed no evidence of deep venous thrombosis. LABS TODAY: WBC 4.81, hemoglobin 9.9, hematocrit 30.3, and platelet count 135. Baseline INR on November 19 1.0. PTT 28.5. Metabolic profile today with sodium 134, potassium 4.4, chloride 97, carbon dioxide 31, BUN 53, creatinine 1.29, and random glucose 162. Magnesium 2.5. Troponin I on this admission have been 0.135, 0.105, and 0.074. ProB natriuretic peptide on November 18 was 25,027. Serum albumin 3.0 on November 18. AST on November 18 26 and ALT 51. Total bilirubin 0.7. ASSESSMENT: 1. Acute on chronic systolic heart failure. This was preceded by weight gain and evidence of increased fluid retention. This was despite compliance with her medications and a low sodium diet. 2. Underlying severe chronic obstructive pulmonary disease. Probable associated acute exacerbation of her chronic obstructive pulmonary disease in addition to the acute on chronic systolic heart failure causing her to have acute on chronic respiratory failure. 3. She has had an excellent diuresis since admission. No evidence of pulmonary vascular congestion on exam today. No jugular venous distension. Her peripheral edema has improved since admission. 4. She reports having had wheezing at the time of admission. No wheezing today. This likely reflects treatment of her heart failure as well as treatment for her lung disease exacerbation. 5. Mildly elevated troponin I's. Likely secondary to demand ischemia. Of note is that she had significantly low oxygen levels at home when EMS arrived. 6. She was febrile at the time of admission. Now afebrile. This may reflect treatment of an underlying pulmonary infection. 7. Chronic kidney disease. Her BUN and creatinine have increased since admission. This is consistent with her diuresis. She now may have a component of intravascular volume depletion. 8. History of hypertension. Systolic blood pressure mildly elevated today. She was on lisinopril at the time of admission. She is currently not receiving lisinopril. 9. Persistent and chronic atrial fibrillation. Episodes of elevated ventricular response to the atrial fibrillation. 10. Dyslipidemia and vascular disease. She is on a maximum atorvastatin dose consistent with current guidelines. 11. Severe peripheral vascular disease. Severe mesenteric arterial disease. No current or recent symptoms of GI bleeding. Her hemoglobin has decreased since admission despite diuresis. 12. Cerebrovascular disease. No current neurologic symptoms. 13. History of subarachnoid hemorrhage in May 2017. This contraindicates the use of anticoagulation therapy in her. No signs or symptoms suggestive of a thromboembolic event. RECOMMENDATIONS: 1. Switch to oral furosemide. As she presented with evidence of volume overload on a dose of 40 mg daily, would place her on a dose of 40 mg b.i.d. 2. Continue carvedilol. If her blood pressure remains elevated and if she has further episodes of elevated ventricular response to atrial fibrillation, would increase the dose to 18.75 mg b.i.d. 3. Monitor hemoglobin closely. 4. Continue treatment for her underlying lung disease. 5. Physical therapy consultation. The patient complains of weakness in both legs. It will be best for her to maintain as much physical activity as possible. She did have some improvement in her leg weakness during her [facility] admission. Thank you for asking me to see this patient in cardiology consultation.
[2017-11-20] MEDS ORDERED: BENZONATATE 100MG CAP PO PRN (19:15)
--- NOTE | 2017-11-20 19:43 | Progress Note ---
Subjective Date of Service: Nov 20, 2017. Subjective Pt evaluation today including: conversation w/ patient, conversation w/ family (son at bedside), physical exam, chart review, lab review, conversation w/ health consultant (cardiology), review of inpatient medication list Pain: abd pain has resolved PO Intake: 100% of meals consumed Voiding: mckeon catheter in place tele overnight - paced, no dysrhythmia feels good mild cough remains but no worse denies dyspnea or orthopnea eating well abd pain resolved LLE venous duplex study negative for DVT PT, OT both feel she can return home w/ HH Problem List Medical Problems: (1) Acute asthma exacerbation Status: Acute (2) Acute bronchitis Status: Acute (3) Acute exacerbation of CHF (congestive heart failure) Status: Acute (4) Acute CT Status: Acute (5) Anemia Status: Acute (6) CHF (congestive heart failure) Status: Acute (7) CHF (congestive heart failure) Status: Acute (8) CHF (congestive heart failure) Status: Acute (9) COPD (chronic obstructive pulmonary disease) Status: Acute (10) Elevated troponin Status: Acute (11) Facial contusion Status: Acute (12) Febrile illness, acute Status: Acute (13) Hyponatremia Status: Acute (14) Hypoxia Status: Acute (15) Influenza Status: Acute (16) Intracranial bleeding Status: Acute (17) Intractable nausea and vomiting Status: Acute (18) Mesenteric ischemia Status: Acute (19) Mesenteric ischemia Status: Acute (20) Multiple contusions Status: Acute (21) Nausea Status: Acute (22) Pulmonary edema Status: Acute (23) Pulmonary edema Status: Acute (24) Respiratory distress Status: Acute (25) Respiratory failure Status: Acute (26) SOB (shortness of breath) Status: Acute (27) Syncope Status: Acute Review of Systems Constitutional: No fever, No chills Respiratory: + cough, + wheezing, + dyspnea on exertion, No sputum, No dyspnea at rest, No hemoptysis Cardiac: No chest pain, No orthopnea Abdomen: No pain Objective Vital Signs Date Time Temp Pulse Resp B/P (MAP) Pulse Ox O2 Delivery O2 Flow Rate FiO2 11/20/17 16:06 36.8 61 18 152/67 (95) 99 Nasal Cannula 2.0 11/20/17 16:00 99 Nasal Cannula 2.0 11/20/17 15:02 66 20 98 Nasal Cannula 2.0 11/20/17 12:00 Nasal Cannula 2.0 11/20/17 11:07 60 20 97 Nasal Cannula 2.0 11/20/17 11:00 36.5 73 18 147/56 (86) 99 Nasal Cannula 2.0 11/20/17 08:00 Nasal Cannula 2.0 11/20/17 06:57 36.4 67 20 145/61 (89) 99 Nasal Cannula 2.0 11/20/17 06:14 60 20 97 Nasal Cannula 2.0 11/20/17 04:05 Nasal Cannula 2.0 11/20/17 04:00 36.5 63 18 90/55 (67) 98 Nasal Cannula 1.0 11/20/17 00:19 36.4 69 16 100/46 (64) 95 Room Air 11/20/17 00:05 Nasal Cannula 2.0 11/20/17 00:05 Nasal Cannula 2.0 11/19/17 20:01 36.5 60 18 144/57 (86) 98 Nasal Cannula 2.0 11/19/17 20:00 Nasal Cannula 2.0 Physical Exam General Appearance: no apparent distress, + pertinent finding (looks much better) ENT: pharynx normal Neck: + JVD Respiratory/Chest: no respiratory distress, no accessory muscle use, + decreased breath sounds (mild, bases), + wheezing (very mild end-expiratory) Cardiovascular: regular rate, rhythm, no gallop, no murmur Abdomen: normal bowel sounds, non tender, soft, no organomegaly Extremities: + pedal edema (trace edema on left, none on right today) Neurologic/Psychiatric: alert, oriented x 3 Skin: + pertinent finding (varicose veins legs b/l ) Laboratory Results Last 24 Hours Test 11/19/17 20:09 11/19/17 22:40 11/19/17 23:24 11/20/17 01:26 Bedside Glucose 224 mg/dl White Blood Count 4.78 K/uL Red Blood Count 3.33 M/uL Hemoglobin 9.5 g/dL Hematocrit 29.9 % Mean Corpuscular Volume 89.8 fL Mean Corpuscular Hemoglobin 28.5 pg Mean Corpuscular Hemoglobin Concent 31.8 g/dl Platelet Count 124 K/uL Mean Platelet Volume 9.6 fL Neutrophils (%) (Auto) 85.6 % Lymphocytes (%) (Auto) 6.3 % Monocytes (%) (Auto) 7.9 % Eosinophils (%) (Auto) 0.0 % Basophils (%) (Auto) 0.0 % Neutrophils # (Auto) 4.09 K/uL Lymphocytes # (Auto) 0.30 K/uL Monocytes # (Auto) 0.38 K/uL Eosinophils # (Auto) 0.00 K/uL Basophils # (Auto) 0.00 K/uL RDW Standard Deviation 62.7 fL RDW Coefficient of Variation 19.0 % Immature Granulocyte % (Auto) 0.2 % Immature Granulocyte # (Auto) 0.01 K/uL Prothrombin Time 10.6 SECONDS Prothromb Time International Ratio 1.0 Activated Partial Thromboplast Time 28.5 SECONDS Partial Thromboplastin Ratio 1.1 Urine Color YELLOW Urine Appearance CLEAR Urine pH 5.0 Urine Specific [place] 1.020 Urine Protein NEG Urine Glucose (UA) NEG Urine Ketones NEG Urine Occult Blood NEG Urine Nitrite NEG Urine Bilirubin NEG Urine Urobilinogen NEG Urine Leukocyte Esterase NEG Urine WBC (Auto) 1-5 /hpf Urine RBC (Auto) 5-10 /hpf Urine Hyaline Casts (Auto) 0 /lpf Urine Epithelial Cells (Auto) 10-20 /lpf Urine Bacteria (Auto) NEG Test 11/20/17 05:59 11/20/17 07:08 11/20/17 07:36 11/20/17 11:26 White Blood Count 4.81 K/uL Red Blood Count 3.38 M/uL Hemoglobin 9.9 g/dL Hematocrit 30.3 % Mean Corpuscular Volume 89.6 fL Mean Corpuscular Hemoglobin 29.3 pg Mean Corpuscular Hemoglobin Concent 32.7 g/dl RDW Standard Deviation 63.5 fL RDW Coefficient of Variation 19.1 % Platelet Count 135 K/uL Mean Platelet Volume 9.2 fL Sodium Level 134 mmol/L Potassium Level 4.4 mmol/L Chloride Level 97 mmol/L Carbon Dioxide Level 31 mmol/L Anion Gap 6.0 mmol/L Blood Urea Nitrogen 53 mg/dl Creatinine 1.29 mg/dl Est Creatinine Clear Calc Drug Dose 30.7 ml/min Estimated GFR () 47.6 Estimated GFR (Non- 41.0 BUN/Creatinine Ratio 40.9 Random Glucose 162 mg/dl Calcium Level 8.7 mg/dl Magnesium Level 2.5 mg/dl Activated Partial Thromboplast Time 26.9 SECONDS Partial Thromboplastin Ratio 1.0 Bedside Glucose 178 mg/dl 216 mg/dl Test 11/20/17 16:29 Bedside Glucose 176 mg/dl Assessment and Plan Pleasant but complicated 72-year-old white female with a past medical history significant for CAD/inferior CT 1999, hypertension, dyslipidemia, type 2 diabetes mellitus, COPD, tobacco abuse, chronic systolic/diastolic CHF due to ischemic cardiomyopathy (EF 25-30%), S/P Medtronic ICD/BiV pacemaker implantation 02/21/12 with elective generator replacement 02/21/2017, peripheral arterial disease (S/P right iliofemoral endarterectomy and popliteal/SFA angioplasties 05/04/13, mesenteric arterial occlusive disease S/P superior mesenteric stent placement 05/03/2017, carotid disease status post left CEA 1990 ), subarachnoid hemorrhage 05/31/2017, and recent hospital stay from 10/22/17 to 11/03/17 due to influenza A infection/COPD exacerbation/CHF exacerbation. Readmitted 11/04/17-11/06/17 for weakness and d/c to [facility], having been released to home on 11/16/17. She presented with worsening respiratory distress and evidence of acute/chronic hypercarbic/hypoxic respiratory failure likely 2nd to acute/chronic CHF & possible developing lung infection. 1. acute/chronic hypercarbic/hypoxic respiratory failure - likely combination of COPD exacerbation and acute/chronic CHF. Acute component resolved. 2. acute/chronic systolic & diastolic CHF - appears near euvolemia or is in fact euvolemic today. Resume WALTER tomorrow AM. Appreciate consult by Dr. Flynn - plan to INCREASE oral lasix to 40mg BID tomorrow am. 3. underlying a. fib - no anticoagulation at this time as this was discussed heavily with patient/family during previous stay and she opted against such due to prior SAH episode in 2017. Paced on monitoring. Cont beta dane. 4. COPD exacerbation - improving very nicely. d/c IV steroids; change to prednisone 40mg daily starting in AM. d/c IV antibiotics; plan 7 days in total of levaquin then d/c. 5. epigastric pain - LFTs, lipase wnl. seems improved with IV pepcid - stress gastritis? esophagitis? she reports that the pain is much different than the pain she had with her mesenteric ischemia. doubt abd pain is anginal equivalent. d/c pepcid; change to PPI starting in AM. 6. T2DM - cont novolog ac/hs and lantus; should improve with d/c of IV steroids. 7. DVT proph - heparin BID. 8. h/o SAH - noted. 9. CAD with +troponin - her troponins appear to be chronically elevated. it is not much different than the previous stay. This is likely demand ischemia in setting of her respiratory issues. Cont ASA, BB, statin, plavix, etc. 10. anxiety d/o - ativan prn. 11. HTN - resume WALTER in am. 12. CKD stage 3 - creatinine slightly higher today; d/c IV lasix. BMP daily. 13. anemia - H/H stable today vs yesterday's values. No signs of any GI bleeding. d/c linda cont PT, OT home with / home PT&OT tomorrow or Saturday?? Continued [facility] stay due to: multiple IV medications needed Discharge planning: home with home health
[2017-11-20] MEDS: ATORVASTATIN 40 MG TAB PO SCH (20:33)
[2017-11-20] MEDS: EZETIMIBE 10MG TAB PO SCH (20:34)
[2017-11-20] MEDS: ASPIRIN 81 MG CHEW PO SCH (21:21)
[2017-11-20] MEDS: PRAMIPEXOLE DIHYDROCHLORIDE 0.25MG TAB PO SCH (21:21)
[2017-11-20] MEDS: INSULIN GLARGINE SOLOSTAR 100 UNITS/ML 3 ML PEN SC SCH (21:24)
[2017-11-21] VITALS (12 sets, daily range): BP systolic 128–163; BP diastolic 49–78; PULSE 58–63; TEMP 36.3–36.9; O2SAT 94–100
[2017-11-21] MEDS: LORAZEPAM 0.5 MG TAB PO PRN ×2 (05:01→16:22)
[2017-11-21 05:54] LABS: HEMATOCRIT 30.4 % (37-47); MEAN CELL VOLUME 89.7 fL (80-100); MEAN CORPUSCULAR HEMOGLOBIN 29.5 pg (25-34); MEAN CORPUSCULAR HGB CONC 32.9 g/dl (32-36); MEAN PLATELET VOLUME 9.3 fL (7.4-10.4); PLATELET COUNT 139 K/uL (130-400); RED CELL DISTRIBUTION WIDTH CV 19.1 % (11.5-14.5); RED CELL DISTRIBUTION WIDTH SD 62.7 fL (36.4-46.3); WHITE BLOOD COUNT 5.98 K/uL (4.8-10.8)
[2017-11-21 06:23] LABS: CALCIUM 8.9 mg/dl (8.5-10.1); CREATININE 1.29 mg/dl (0.60-1.20); POTASSIUM 5.2 mmol/L (3.5-5.1)
[2017-11-21] MEDS: INSULIN ASPART 100 UNITS/ML 3 ML PEN SC SCH ×4 (06:30→21:06)
[2017-11-21] MEDS: POTASSIUM CHLORIDE 20 MEQ TABCR PO SCH ×2 (06:55→09:00)
[2017-11-21] MEDS: ALBUT/IPRATROP 3MG/0.5MG NEB 3 ML VIAL INH SCH ×4 (07:33→19:01)
[2017-11-21] MEDS: DOCUSATE SODIUM 100 MG CAP PO SCH ×2 (09:00→21:00)
[2017-11-21] MEDS ORDERED: LISINOPRIL 5 MG TAB PO SCH (09:00)
[2017-11-21] MEDS: LACTOBACILLUS ACIDOPHILUS (FLORANEX) TAB PO SCH ×3 (09:33→16:22)
[2017-11-21] MEDS: HYDROCORTISONE HC 2.5% CRM 30GM TUBE EXT SCH ×2 (09:36→20:58)
[2017-11-21] MEDS: FLUTICASONE/SALMETEROL (ADVAIR) 500/50 INH 14 PUFF INH SCH ×2 (09:36→20:58)
[2017-11-21] MEDS: PANTOprazole SOD 40 MG TAB PO SCH (09:37)
[2017-11-21] MEDS: CLOPIDOGREL BISULFATE 75 MG TAB PO SCH (09:37)
[2017-11-21] MEDS: GUAIFENESIN 600 MG TABCR PO SCH ×2 (09:38→21:00)
[2017-11-21] MEDS: CARVEDILOL 12.5 MG TAB PO SCH ×2 (09:39→20:58)
[2017-11-21] MEDS: FUROSEMIDE 40 MG TAB PO SCH ×2 (09:40→16:23)
[2017-11-21] MEDS: SERTRALINE HCL 50 MG TAB PO SCH (09:41)
[2017-11-21] MEDS: HEPARIN SOD 5000 UNIT/0.5 ML CARP SQ SCH ×2 (09:43→21:05)
--- NOTE | 2017-11-21 16:37 | DIAGNOSTIC IMAGING REPORT ---
CHEST 2 VIEWS ROUTINE CLINICAL HISTORY: recent CHF, interval change congestive heart failure COMPARISON STUDY: 11/19/2017 FINDINGS: Improving congestive heart failure. Diminished prominence of pulmonary vasculature. Moderate decrease in cardiac size. Small bilateral pleural effusions. IMPRESSION: Improving congestive heart failure. Small bilateral pleural effusions. The above report was generated using voice recognition software. It may contain grammatical, syntax or spelling errors. Electronically signed by: César Muñoz M.D. 11/21/2017 4:35 PM Dictated Date/Time: 11/21/2017 4:34 PM
[2017-11-21] MEDS: EZETIMIBE 10MG TAB PO SCH (20:58)
[2017-11-21] MEDS: PRAMIPEXOLE DIHYDROCHLORIDE 0.25MG TAB PO SCH (20:59)
[2017-11-21] MEDS: ATORVASTATIN 40 MG TAB PO SCH (20:59)
[2017-11-21] MEDS: ASPIRIN 81 MG CHEW PO SCH (21:00)
[2017-11-21] MEDS: INSULIN GLARGINE SOLOSTAR 100 UNITS/ML 3 ML PEN SC SCH (21:06)
--- NOTE | 2017-11-21 21:30 | Progress Note ---
Subjective Date of Service: Nov 21, 2017. Subjective Pt evaluation today including: conversation w/ patient, conversation w/ family (daughter by phone), physical exam, chart review, lab review, review of studies (cxr), review of inpatient medication list Pain: no chest pain or abdominal pain PO Intake: very good Voiding: no voiding problems tele overnight - paced rhythm she states "I had a terrible night" apparently was coughing much of the night but did not have orthopnea; during my visit she was laying flat in the bed comfortably no dyspnea at rest; minimal CHOWDHURY w/ walking to the bathroom cough is largely nonproductive Problem List Medical Problems: (1) Acute asthma exacerbation Status: Acute (2) Acute bronchitis Status: Acute (3) Acute exacerbation of CHF (congestive heart failure) Status: Acute (4) Acute [place] Status: Acute (5) Anemia Status: Acute (6) CHF (congestive heart failure) Status: Acute (7) CHF (congestive heart failure) Status: Acute (8) CHF (congestive heart failure) Status: Acute (9) COPD (chronic obstructive pulmonary disease) Status: Acute (10) Elevated troponin Status: Acute (11) Facial contusion Status: Acute (12) Febrile illness, acute Status: Acute (13) Hyponatremia Status: Acute (14) Hypoxia Status: Acute (15) Influenza Status: Acute (16) Intracranial bleeding Status: Acute (17) Intractable nausea and vomiting Status: Acute (18) Mesenteric ischemia Status: Acute (19) Mesenteric ischemia Status: Acute (20) Multiple contusions Status: Acute (21) Nausea Status: Acute (22) Pulmonary edema Status: Acute (23) Pulmonary edema Status: Acute (24) Respiratory distress Status: Acute (25) Respiratory failure Status: Acute (26) SOB (shortness of breath) Status: Acute (27) Syncope Status: Acute Review of Systems Constitutional: No fever Respiratory: + cough, + wheezing, + dyspnea on exertion, No sputum, No dyspnea at rest, No hemoptysis Cardiac: No chest pain, No orthopnea, No PND, No edema Abdomen: No pain, No nausea, No vomiting Objective Vital Signs Date Time Temp Pulse Resp B/P (MAP) Pulse Ox O2 Delivery O2 Flow Rate FiO2 11/21/17 20:09 36.6 60 18 149/73 (98) 98 Room Air 11/21/17 19:01 60 18 99 Nasal Cannula 2.0 11/21/17 16:20 Nasal Cannula 2.0 11/21/17 16:01 Nasal Cannula 2.0 11/21/17 15:45 36.7 60 14 136/49 (78) 98 Nasal Cannula 2.0 11/21/17 15:35 63 18 98 Nasal Cannula 2.0 11/21/17 12:00 Nasal Cannula 2.0 11/21/17 11:48 36.3 58 14 134/76 (95) 96 11/21/17 11:34 62 18 98 Nasal Cannula 2.0 11/21/17 08:00 Nasal Cannula 2.0 11/21/17 07:57 36.3 60 16 128/78 (95) 100 Nasal Cannula 2.0 11/21/17 07:33 60 18 98 Nasal Cannula 2.0 11/21/17 04:52 36.9 60 18 156/77 (103) 98 Nasal Cannula 2.0 11/21/17 04:46 62 20 98 Nasal Cannula 2.0 11/21/17 04:05 Nasal Cannula 2.0 11/21/17 00:15 36.6 62 18 158/68 (98) 94 Nasal Cannula 2.0 11/21/17 00:05 Nasal Cannula 2.0 Physical Exam General Appearance: no apparent distress, + thin ENT: pharynx normal Neck: + JVD Respiratory/Chest: no respiratory distress, no accessory muscle use, + wheezing , + pertinent finding (no rales) Cardiovascular: regular rate, rhythm, no gallop, no murmur Abdomen: normal bowel sounds, non tender, soft, no organomegaly Extremities: no pedal edema Neurologic/Psychiatric: alert, oriented x 3 Laboratory Results Last 24 Hours Test 11/21/17 05:26 11/21/17 07:18 11/21/17 07:58 11/21/17 11:29 White Blood Count 5.98 K/uL Red Blood Count 3.39 M/uL Hemoglobin 10.0 g/dL Hematocrit 30.4 % Mean Corpuscular Volume 89.7 fL Mean Corpuscular Hemoglobin 29.5 pg Mean Corpuscular Hemoglobin Concent 32.9 g/dl RDW Standard Deviation 62.7 fL RDW Coefficient of Variation 19.1 % Platelet Count 139 K/uL Mean Platelet Volume 9.3 fL Sodium Level 134 mmol/L Potassium Level 5.2 mmol/L 4.8 mmol/L Chloride Level 97 mmol/L Carbon Dioxide Level 32 mmol/L Anion Gap 5.0 mmol/L Blood Urea Nitrogen 50 mg/dl Creatinine 1.29 mg/dl Est Creatinine Clear Calc Drug Dose 30.7 ml/min Estimated GFR () 47.6 Estimated GFR (Non- 41.0 BUN/Creatinine Ratio 38.5 Random Glucose 99 mg/dl Calcium Level 8.9 mg/dl Bedside Glucose 99 mg/dl 123 mg/dl Test 11/21/17 16:14 11/21/17 19:56 Bedside Glucose 194 mg/dl 226 mg/dl Assessment and Plan Pleasant but complicated 72-year-old white female with a past medical history significant for CAD/inferior [place] 1999, hypertension, dyslipidemia, type 2 diabetes mellitus, COPD, tobacco abuse, chronic systolic/diastolic CHF due to ischemic cardiomyopathy (EF 25-30%), S/P [employer]tr[employer] ICD/BiV pacemaker implantation 02/21/12 with elective generator replacement 02/21/2017, peripheral arterial disease (S/P right iliofemoral endarterectomy and popliteal/SFA angioplasties 05/04/13, mesenteric arterial occlusive disease S/P superior mesenteric stent placement 05/03/2017, carotid disease status post left CEA 1990 ), subarachnoid hemorrhage 05/31/2017, and recent hospital stay from 10/22/17 to 11/03/17 due to influenza A infection/COPD exacerbation/CHF exacerbation. Readmitted 11/04/17-11/06/17 for weakness and d/c to [facility], having been released to home on 11/16/17. She then presented on 11/18/2017 with worsening respiratory distress and evidence of acute/chronic hypercarbic/hypoxic respiratory failure likely 2nd to acute/chronic CHF & possible developing lung infection. 1. acute/chronic hypercarbic/hypoxic respiratory failure - likely combination of COPD exacerbation and acute/chronic CHF. Acute component resolving. CXR today with resolving pulmonary edema. 2. acute/chronic systolic & diastolic CHF - improved clinically & radiographically. Dr. Flynn yesterday felt she was euvolemic or even slightly dry. Transitioned to PO lasix today 40mg BID. WALTER not restarted today due to borderline high K and slight increase in creatinine. Continue beta dane. Daily weights, fluid restriction, salt restriction. I am truly uncertain as to her baseline "dry weight." 3. underlying a. fib - no anticoagulation at this time as this was discussed heavily with patient/family during previous stay and she opted against such due to prior SAH episode in 2017. Paced on monitoring. Cont beta dane. 4. COPD exacerbation - improved. Cont nebs, incentive enrique, inhalers. No evidence of pneumonia on several chest x-rays. Continue prednisone 40mg daily; no wean today, possibly can wean tomorrow. Cont levaquin for 7 days; day #4 today. 5. epigastric pain - resolved. Her pain improved with IV pepcid - was this stress gastritis? Pepcid d/c, transitioned to oral PPI. Continue for now. Of note - she reports that the pain was much different than the pain she had with her mesenteric ischemia. Doubt her pain was anginal equivalent as her pain was reproducible on physical exam. 6. T2DM - cont novolog ac/hs and lantus; add carb coverage; continue correction factor of 55. 7. DVT proph - heparin BID. 8. h/o SAH - noted. 9. CAD with +troponin - her troponins appear to be chronically elevated. Her troponin this admission is not much different than the previous stay. This is likely demand ischemia in setting of her respiratory issues. Cont ASA, BB, statin, plavix, etc. 10. anxiety d/o - ativan prn. 11. HTN - resume WALTER when creatinine and K are stable. 12. CKD stage 3 - creatinine unchanged today; BMP in am. 13. anemia - H/H stable this stay. as of 11/19 PT/OT cleared patient for home they will need to re-eval her one more time prior to d/c daughter updated 11/21 home with HH / home PT&OT tomorrow? saturday? Continued [facility] stay due to: multiple IV medications needed Discharge planning: home with home health
[2017-11-22] VITALS (11 sets, daily range): BP systolic 121–159; BP diastolic 60–70; PULSE 60–65; TEMP 36.3–36.6; O2SAT 92–99
[2017-11-22 06:49] LABS: CALCIUM 8.6 mg/dl (8.5-10.1); CREATININE 1.11 mg/dl (0.60-1.20)
[2017-11-22] MEDS: ALBUT/IPRATROP 3MG/0.5MG NEB 3 ML VIAL INH SCH ×4 (07:11→19:05)
[2017-11-22] MEDS: SERTRALINE HCL 50 MG TAB PO SCH (09:13)
[2017-11-22] MEDS: PANTOprazole SOD 40 MG TAB PO SCH (09:13)
[2017-11-22] MEDS: GUAIFENESIN 600 MG TABCR PO SCH ×2 (09:14→21:07)
[2017-11-22] MEDS: DOCUSATE SODIUM 100 MG CAP PO SCH ×2 (09:14→21:08)
[2017-11-22] MEDS: FLUTICASONE/SALMETEROL (ADVAIR) 500/50 INH 14 PUFF INH SCH ×2 (09:14→21:06)
[2017-11-22] MEDS: LACTOBACILLUS ACIDOPHILUS (FLORANEX) TAB PO SCH ×3 (09:14→17:21)
[2017-11-22] MEDS: CLOPIDOGREL BISULFATE 75 MG TAB PO SCH (09:15)
[2017-11-22] MEDS: CARVEDILOL 12.5 MG TAB PO SCH (09:16)
[2017-11-22] MEDS: FUROSEMIDE 40 MG TAB PO SCH ×2 (09:17→17:21)
[2017-11-22] MEDS: HYDROCORTISONE HC 2.5% CRM 30GM TUBE EXT SCH ×2 (09:17→21:00)
[2017-11-22] MEDS: INSULIN ASPART 100 UNITS/ML 3 ML PEN SC SCH ×4 (09:23→21:10)
[2017-11-22] MEDS: HEPARIN SOD 5000 UNIT/0.5 ML CARP SQ SCH ×2 (09:23→21:11)
[2017-11-22] MEDS: LORAZEPAM 0.5 MG TAB PO PRN (09:28)
[2017-11-22] MEDS ORDERED: LEVOFLOXACIN 750 MG TAB PO SCH (11:00)
[2017-11-22] MEDS ORDERED: NICOTINE 7 MG/24 HR TDSY TD ONE (16:34)
--- NOTE | 2017-11-22 18:12 | Hospitalist Progress Note ---
Hospitalist Progress Note Date of Service Nov 22, 2017. (Roxie Barr PA-C) Subjective Pt evaluation today including: conversation w/ patient, physical exam, chart review, lab review, review of studies Patient seen and evaluated. States she is feeling better and slept well last night. Coughing less and largely non-productive. Tolerating diet well. Increased Coreg to promote improved BP control. Currently at about 7.5 L negative balance. She is on baseline O2 Constitutional: + fatigue (improving), No fever, No chills Respiratory: + cough, No sputum, No dyspnea on exertion, No dyspnea at rest Cardiovascular: No chest pain Abdomen: No pain, No nausea, No vomiting, No diarrhea, No constipation Musculoskeletal: No swelling, No calf pain Female : No dysuria Heme: No abnormal bleeding/bruising Skin: No rash (Roxie Barr, VONNIEC) Medications Current Inpatient Medications Medications (Trade) Dose Ordered Sig/Osmani Route Start Time Stop Time Status Last Admin Dose Admin Heparin Sodium (Porcine) (Heparin Sq 5000 Unit/0.5ml) 5,000 unit Q12 SQ 11/18/17 21:00 12/18/17 20:59 11/22/17 09:23 5,000 UNIT Acetaminophen (Tylenol Tab) 650 mg Q4H PRN PO 11/18/17 07:45 12/18/17 07:44 Al Hydrox/Mg Hydrox/Simethicone (Maalox Max Susp) 15 ml Q4H PRN PO 11/18/17 07:45 12/18/17 07:44 Magnesium Hydroxide (Milk Of Magnesia Susp) 30 ml Q12H PRN PO 11/18/17 07:45 12/18/17 07:44 Ondansetron HCl (Zofran Inj) 4 mg Q6H PRN IV 11/18/17 07:45 12/18/17 07:44 Nitroglycerin (Nitrostat Tab) 0.4 mg UD PRN SL 11/18/17 07:45 12/18/17 07:44 Aspirin (Aspirin Chew) 81 mg QPM PO 11/18/17 21:00 12/18/17 20:59 11/21/17 21:00 81 MG Atorvastatin Calcium (Lipitor Tab) 80 mg HS PO 11/18/17 21:00 12/18/17 20:59 11/21/17 20:59 80 MG Clopidogrel Bisulfate (plAVix TAB) 75 mg QAM PO 11/18/17 09:00 12/18/17 08:59 11/22/17 09:15 75 MG Docusate Sodium (coLACE CAP) 100 mg BID PO 11/18/17 09:00 12/18/17 08:59 11/22/17 09:14 100 MG EZETIMIBE (Zetia Tab) 10 mg HS PO 11/18/17 21:00 12/18/17 20:59 11/21/17 20:58 10 MG Salmeterol Xinafoate/ Fluticasone (Advair Diskus 500/50 Inh) 1 puff BID INH 11/18/17 09:00 12/18/17 08:59 11/22/17 09:14 1 PUFF Hydrocortisone (Proctozone Hc 2.5% Crm) 1 appln BID EXT 11/18/17 09:00 12/18/17 08:59 11/22/17 09:17 1 APPLN Lorazepam (Ativan Tab) 0.5 mg Q6H PRN PO 11/18/17 07:45 12/18/17 07:44 11/22/17 09:28 0.5 MG Pramipexole Dihydrochloride (miraPEX TAB) 0.25 mg HS PO 11/18/17 21:00 12/18/17 20:59 11/21/17 20:59 0.25 MG Sertraline HCl (Zoloft Tab) 50 mg QAM PO 11/18/17 09:00 12/18/17 08:59 11/22/17 09:13 50 MG Guaifenesin (Mucinex Contr Rel Tab) 600 mg Q12 PO 11/18/17 09:00 12/18/17 08:59 11/22/17 09:14 600 MG Lactobacillus Acidophilus (Floranex Tab) 4 tab TIDM PO 11/18/17 12:00 12/18/17 11:59 11/22/17 17:21 4 TAB Albuterol/ Ipratropium (Duoneb) 3 ml QIDR INH 11/18/17 12:00 12/18/17 11:59 11/22/17 19:05 3 ML Insulin Aspart (novoLOG ASPART) SLIDING SCALE G... ACHS SC 11/18/17 11:00 12/18/17 10:59 11/22/17 17:24 3 UNITS Levofloxacin (Consult) 1 ea UD PRN N/A 11/18/17 09:30 12/18/17 09:29 Glucose (Glucose 40% Gel) 15-30 GRAMS 15 GRAMS... UD PRN PO 11/18/17 09:30 12/18/17 09:29 Glucose (Glucose Chew Tab) 4-8 Tablets 4 Tabl... UD PRN PO 11/18/17 09:30 12/18/17 09:29 Dextrose (Dextrose 50% 50ML Syringe) 25-50ML OF 50% DW IV FOR... UD PRN IV 11/18/17 09:30 12/18/17 09:29 Glucagon (Glucagon Inj) 1 mg UD PRN SQ 11/18/17 09:30 12/18/17 09:29 Potassium Chloride (Klor-Con Tab) 20 meq BID PO 11/19/17 10:00 12/19/17 09:59 Future Hold 11/20/17 20:31 20 MEQ Insulin Glargine (Lantus Solostar Pen) 8 units HS SC 11/19/17 21:00 12/19/17 20:59 11/21/17 21:06 8 UNITS Levofloxacin (Levaquin Tab) 750 mg Q2D@1100 PO 11/22/17 11:00 11/25/17 10:59 11/22/17 13:00 750 MG Pantoprazole Sodium (Protonix Tab) 40 mg QAM PO 11/21/17 09:00 11/24/17 09:01 11/22/17 09:13 40 MG Prednisone (PredniSONE TAB) 40 mg QAM PO 11/21/17 09:00 12/21/17 08:59 11/22/17 09:13 40 MG Benzonatate (Tessalon Perles Cap) 100 mg TID PRN PO 11/20/17 19:15 12/20/17 19:14 11/20/17 19:59 100 MG Furosemide (Lasix Tab) 40 mg BID17 PO 11/21/17 09:00 12/21/17 08:59 11/22/17 17:21 40 MG Lisinopril (Zestril Tab) 5 mg QAM PO 11/21/17 09:00 12/21/17 08:59 Future Hold Carvedilol (Coreg Tab) 18.75 mg BID PO 11/22/17 21:00 12/18/17 08:59 Nicotine (Nicoderm Cq 7 Mg Patch) 1 patch QAM TD 11/23/17 09:00 12/23/17 08:59 Miscellaneous (Remove Nicoderm Patch) 1 ea HS N/A 11/22/17 21:00 12/22/17 20:59 (Roxie Barr, PA-C) Objective Vital Signs Date Time Temp Pulse Resp B/P (MAP) Pulse Ox O2 Delivery O2 Flow Rate FiO2 11/22/17 16:00 Nasal Cannula 2.0 11/22/17 15:20 36.3 61 18 143/65 (91) 97 Room Air 11/22/17 14:49 62 16 97 Nasal Cannula 2.0 11/22/17 12:00 Nasal Cannula 2.0 11/22/17 11:49 36.4 60 20 134/65 (88) 99 Nasal Cannula 2.0 11/22/17 11:20 60 16 99 Nasal Cannula 2.0 11/22/17 09:12 63 121/64 (83) 11/22/17 08:00 Nasal Cannula 2.0 11/22/17 07:23 36.4 64 18 154/69 (97) 99 Nasal Cannula 2.0 11/22/17 07:13 63 18 99 Nasal Cannula 2.0 11/22/17 04:42 36.4 60 18 159/70 (99) 94 Nasal Cannula 2.0 11/22/17 04:00 Nasal Cannula 2.0 11/22/17 00:00 Nasal Cannula 2.0 11/21/17 23:53 36.4 60 16 163/65 (97) 98 Nasal Cannula 2.0 11/21/17 20:09 36.6 60 18 149/73 (98) 98 Room Air 11/21/17 20:00 Nasal Cannula 2.0 11/21/17 19:01 60 18 99 Nasal Cannula 2.0 (Roxie Barr, PA-C) Physical Exam General Appearance: WD/WN, no apparent distress Neck: supple, no JVD, trachea midline Respiratory/Chest: no respiratory distress, no accessory muscle use, + crackles (bases b/l) Cardiovascular: regular rate, rhythm, no gallop, no murmur Abdomen: normal bowel sounds, non tender, soft Extremities: no pedal edema Neurologic/Psychiatric: alert, oriented x 3 Skin: normal color (Roxie Barr, PALachoC) Laboratory Results Last 24 Hours Test 11/21/17 19:56 11/22/17 06:04 11/22/17 07:22 11/22/17 12:07 Bedside Glucose 226 mg/dl 94 mg/dl 109 mg/dl Sodium Level 138 mmol/L Potassium Level 4.0 mmol/L Chloride Level 99 mmol/L Carbon Dioxide Level 33 mmol/L Anion Gap 6.0 mmol/L Blood Urea Nitrogen 46 mg/dl Creatinine 1.11 mg/dl Est Creatinine Clear Calc Drug Dose 35.7 ml/min Estimated GFR () 57.1 Estimated GFR (Non- 49.2 BUN/Creatinine Ratio 41.5 Random Glucose 104 mg/dl Calcium Level 8.6 mg/dl Magnesium Level 2.1 mg/dl Test 11/22/17 16:35 Bedside Glucose 220 mg/dl (Roxie Barr, PA-C) Assessment and Plan Pleasant but complicated 72-year-old white female with a past medical history significant for CAD/inferior ID 1999, hypertension, dyslipidemia, type 2 diabetes mellitus, COPD, tobacco abuse, chronic systolic/diastolic CHF due to ischemic cardiomyopathy (EF 25-30%), S/P Medtronic ICD/BiV pacemaker implantation 02/21/12 with elective generator replacement 02/21/2017, peripheral arterial disease (S/P right iliofemoral endarterectomy and popliteal/SFA angioplasties 05/04/13, mesenteric arterial occlusive disease S/P superior mesenteric stent placement 05/03/2017, carotid disease status post left CEA 1990 ), subarachnoid hemorrhage 05/31/2017, and recent hospital stay from 10/22/17 to 11/03/17 due to influenza A infection/COPD exacerbation/CHF exacerbation. Readmitted 11/04/17-11/06/17 for weakness and d/c to [facility], having been released to home on 11/16/17. She then presented on 11/18/2017 with worsening respiratory distress and evidence of acute/chronic hypercarbic/hypoxic respiratory failure likely 2nd to acute/chronic CHF & possible developing lung infection. Acute on Chronic Hypercarbic/Hypoxic Respiratory Failure 2/2 COPD Exacerbation and Acute/Chronic Mixed Systolic/Diastolic CHF: - Continues to improve clinically - currently on baseline 2L NC - Continue Duonebs and Prednisone taper will start 30 mg daily on 11/23 - Advair BID - Continue Lasix 40 mg BID - Continue Levaquin renally dosed for a total of 7 days - will just need a dose on 11/24 to complete course Epigastric Pain: RESOLVED - Suspect gastritis - improved with Pepcid - currently on po Protonix - Has known mesenteric ischemia - reporting pain is not similar to this and initial pain reproducible CAD with Elevated Troponin: Chronically Troponin - This is likely demand ischemia related to respiratory issues - ASA 81 mg daily, Plavix 75 mg daily, Zetia 10 mg daily, and Atorvastatin 80 mg daily Underlying Atrial Fibrillation with Pacer: - No AC due to SAH - Coreg increased to 18.75 mg twice a day HTN: - ACEI on hold currently - will assess renal function in AM and possible reinstitute CKD Stage III: - Mild elevation resolved - continue to monitor and avoid nephrotoxic agents when able T2DM: - Lantus 8 units HS and SSI H/O SAH: Noted DVT Prophylaxis: Heparin BID Disposition: - Possible return home tomorrow; daughter updated over the phone Continued [facility] stay due to: other (promote further diuresis) Discharge planning: home with home health (Roxie Barr, KEN) Reviewed: Pt Seen/Exam by Me (Violette Barahona MD) History Physician Research Laboratory Technician supervision Note: I interviewed and examined the patient. Discussed with DANAE Barr and agree with findings and plan as documented in the note. Any exceptions or clarifications are listed here: Patient feeling much better, some dyspnea on exertion, no SOB at rest. Blood pressures continue to be elevated. She is diuresing. Chart reviewed with multiple hospitalizations in the last year. She reports she is down to 1 cigarette per day and is interested in quitting with using a nicotine patch. Vitals reviewed, telemetry with paced rhythm in the 60s with some PVCs Gen: AAOx3, NAD HEENT: anicteric sclerae, EOMI CV: RRR difficult to auscultate murmur over diffuse wheezing S1S2 Pulm: Diffuse wheezing and diminished breath sounds throughout all lung english Abd: +BS soft NT ND no masses or hernias Ext: no edema, 2+ DP pulses Skin: no rashes, warm/dry The patient is a 72-year-old white female with a complex past medical history significant for CAD/inferior ID 1999, hypertension, dyslipidemia, type 2 diabetes mellitus, COPD, prior tobacco abuse, systolic/diastolic CHF and ischemic cardiomyopathy (EF 25-30%), S/P Medtronic ICD/BiV pacemaker implantation 02/21/12 with elective generator replacement 02/21/2017, severe mitral regurgitation, peripheral arterial disease (S/P right iliofemoral endarterectomy and popliteal/SFA angioplasties 05/04/13, mesenteric arterial occlusive disease S/P superior mesenteric stent placement 05/03/2017, carotid disease status post left CEA 1990), hyponatremia, and recent right MCA territory ischemic stroke with hemorrhagic conversion versus traumatic right subarachnoid hemorrhage in May 2017 with residual LUE weakness. She presents here with acute on chronic combined systolic and diastolic CHF, and acute exacerbation of COPD. -Steroids over the last month with multiple hospitalizations may be contributing to her fluid retention -Continues to diurese well on p.o. Lasix 40 mg twice daily -Increase Coreg to 18.75 mg p.o. twice daily for improved blood pressure control and for her CHF today --Consideration should be made for repair of her mitral valve at some point -DM 2 with hyperglycemia secondary to corticosteroids-will tighten SSI and expect this will improve with taper down the prednisone -Could potentially discharge home tomorrow Documented By: Violette Barahona (Violette Barahona MD)
[2017-11-22] MEDS: ATORVASTATIN 40 MG TAB PO SCH (21:05)
[2017-11-22] MEDS: ASPIRIN 81 MG CHEW PO SCH (21:06)
[2017-11-22] MEDS: CARVEDILOL 6.25 MG TAB PO SCH (21:06)
[2017-11-22] MEDS: EZETIMIBE 10MG TAB PO SCH (21:08)
[2017-11-22] MEDS: PRAMIPEXOLE DIHYDROCHLORIDE 0.25MG TAB PO SCH (21:08)
[2017-11-22] MEDS: INSULIN GLARGINE SOLOSTAR 100 UNITS/ML 3 ML PEN SC SCH (21:11)
[2017-11-23] VITALS (7 sets, daily range): BP systolic 133–150; BP diastolic 57–75; PULSE 59–66; TEMP 36.6–36.8; O2SAT 96–100
[2017-11-23] MEDS: INSULIN ASPART 100 UNITS/ML 3 ML PEN SC SCH ×2 (06:30→12:38)
[2017-11-23 06:56] LABS: HEMATOCRIT 33.1 % (37-47); HEMOGLOBIN 10.5 g/dL (12.0-16.0); MEAN CELL VOLUME 90.2 fL (80-100); MEAN CORPUSCULAR HEMOGLOBIN 28.6 pg (25-34); MEAN CORPUSCULAR HGB CONC 31.7 g/dl (32-36); MEAN PLATELET VOLUME 9.7 fL (7.4-10.4); PLATELET COUNT 159 K/uL (130-400); RED CELL DISTRIBUTION WIDTH CV 18.5 % (11.5-14.5); RED CELL DISTRIBUTION WIDTH SD 61.8 fL (36.4-46.3); WHITE BLOOD COUNT 5.46 K/uL (4.8-10.8)
[2017-11-23] MEDS: ALBUT/IPRATROP 3MG/0.5MG NEB 3 ML VIAL INH SCH ×2 (07:04→11:18)
[2017-11-23] MEDS: LACTOBACILLUS ACIDOPHILUS (FLORANEX) TAB PO SCH ×2 (07:39→12:34)
[2017-11-23] MEDS: DOCUSATE SODIUM 100 MG CAP PO SCH (07:44)
[2017-11-23] MEDS: FLUTICASONE/SALMETEROL (ADVAIR) 500/50 INH 14 PUFF INH SCH (07:44)
[2017-11-23] MEDS: FUROSEMIDE 40 MG TAB PO SCH (07:45)
[2017-11-23] MEDS: CARVEDILOL 6.25 MG TAB PO SCH (07:46)
[2017-11-23] MEDS: GUAIFENESIN 600 MG TABCR PO SCH (07:47)
[2017-11-23] MEDS: PANTOprazole SOD 40 MG TAB PO SCH (07:48)
[2017-11-23] MEDS: SERTRALINE HCL 50 MG TAB PO SCH (07:49)
[2017-11-23 07:50] LABS: CALCIUM 8.5 mg/dl (8.5-10.1); CREATININE 0.96 mg/dl (0.60-1.20)
[2017-11-23] MEDS: CLOPIDOGREL BISULFATE 75 MG TAB PO SCH (07:50)
[2017-11-23] MEDS: HEPARIN SOD 5000 UNIT/0.5 ML CARP SQ SCH (07:50)
[2017-11-23] MEDS ORDERED: NICOTINE 7 MG/24 HR TDSY TD SCH (09:00)
[2017-11-23] MEDS: HYDROCORTISONE HC 2.5% CRM 30GM TUBE EXT SCH (09:00)
[2017-11-23] MEDS: LORAZEPAM 0.5 MG TAB PO PRN (11:59)
[2017-11-23] MEDS ORDERED: GFNSR600 PO (12:53)
[2017-11-23] MEDS ORDERED: CARV12.5 PO (12:53)
[2017-11-23] MEDS ORDERED: FRS/40 PO (12:53)
[2017-11-23] MEDS ORDERED: LVQ750 PO (12:53)
[2017-11-23] MEDS ORDERED: MCRK20 PO (12:53)
[2017-11-23] MEDS ORDERED: NICO7DIS7 TD (12:53)
[2017-11-23] MEDS ORDERED: PRD10 PO (12:53)
[2017-11-23] MEDS ORDERED: BENZ100C7 PO (12:53)
--- NOTE | 2017-11-23 12:57 | Discharge Instructions ---
Discharge Instructions Date of Service Nov 23, 2017. Admission Reason for Admission: Acute And Chronic Respiratory Failure, CHF Discharge Discharge Diagnosis / Problem: Respiratory failure, Acute CHF, Acute exacerbation COPD Discharge Goals Goal(s): Improve disease control, Diagnostic testing, Therapeutic intervention Activity Recommendations Activity Limitations: as noted below Exercise/Sports Limitations: gradually increase as tolerated Shower/Bathe: no limitations . Instructions / Follow-Up Instructions / Follow-Up You were given diuretics through the IV and then at an increased dose by mouth to get rid of excess fluid. This may be fluid retention from being on prednisone for your COPD exacerbations. Steroids will be tapered down and it is recommended that you follow up with your PCP and the Manufacturing Quality Inspector within 1-2 weeks. Your lasix was increased to 40 mg twice a day, and he was started on a potassium pill to go along with this to be taken once a day in the morning. You have 1 more day of the antibiotic for the bronchitis and then that would be completed. Your carvedilol is also increased to 18.75 mg twice a day. Your blood sugars were elevated secondary to the steroids he received while you are here. If your glucose continues to be elevated, please contact your primary care physician after discharge. Call your Primary Care doctor if any of the following symptoms or problems start or get worse: * Shortness of breath or difficulty breathing * Wake up at night short of breath * Chest pain * Cough * Swelling of your hands, feet, or legs * More fatigued or tired with your normal activity * Palpitations - sudden fast heart beats WEIGHT * Weigh yourself every morning after using the bathroom. * Use the same scale. * Wear the same amount of clothing. * Write your weight down on a chart. * Call your Primary Care doctor if you gain more than 2-3 pounds in 1-2 days. MEDICATIONS * Use this discharge instruction sheet for medication instructions. * Take your medications at the time your doctor ordered. * Do not skip a dose of your medicines. * If you miss a dose of medicine, take it as soon as possible, but DO NOT DOUBLE A DOSE. * Read your medicine information when you get home. * Know all of the side effects of your medicine. If in doubt, ask your pharmacist * Call your Primary Care doctor's office if you have any side effects. * Be sure all of your doctors know what medicine and herbs you take (including cold, flu, and herbal medicine). Take the following with you to your follow-up doctor appointments: * Weight Chart * Medication List * List of questions Do not drink excessive alcohol, beer or wine. Current Hospital Diet Patient's current hospital diet: Diabetes Type 2 Diet, Low Sodium Diet (2gm Na) Discharge Diet Recommended Diet: Low Sodium Diet (2gm Na), Diabetes Type 2 Diet Pending Studies Studies pending at discharge: no Laboratory Results Last 24 Hours Test 11/22/17 16:35 11/22/17 20:16 11/23/17 05:10 11/23/17 06:19 Bedside Glucose 220 mg/dl 214 mg/dl Stool Occult Blood NEGATIVE White Blood Count 5.46 K/uL Red Blood Count 3.67 M/uL Hemoglobin 10.5 g/dL Hematocrit 33.1 % Mean Corpuscular Volume 90.2 fL Mean Corpuscular Hemoglobin 28.6 pg Mean Corpuscular Hemoglobin Concent 31.7 g/dl RDW Standard Deviation 61.8 fL RDW Coefficient of Variation 18.5 % Platelet Count 159 K/uL Mean Platelet Volume 9.7 fL Sodium Level 140 mmol/L Potassium Level 4.0 mmol/L Chloride Level 100 mmol/L Carbon Dioxide Level 34 mmol/L Anion Gap 6.0 mmol/L Blood Urea Nitrogen 52 mg/dl Creatinine 0.96 mg/dl Est Creatinine Clear Calc Drug Dose 41.0 ml/min Estimated GFR () 68.0 Estimated GFR (Non- 58.7 BUN/Creatinine Ratio 53.6 Random Glucose 83 mg/dl Calcium Level 8.5 mg/dl Magnesium Level 2.1 mg/dl Test 11/23/17 07:09 11/23/17 11:33 Bedside Glucose 93 mg/dl 195 mg/dl Hemoglobin A1c Test 10/22/17 07:15 Range/Units Estimated Average Glucose 131 mg/dl Hemoglobin A1c 6.2 H 4.5-5.6 % Medical Emergencies . Who to Call and When: Call 911 or go to the Emergency Room if: * If at any time you feel your situation is an emergency * You have tightness or pain in your chest that does not go away with rest or Nitroglycerin * You are very short of breath even with rest . Non-Emergent Contact Non-Emergency issues call your: Primary Care Provider Call Non-Emergent contact if: you have a fever, temperature is above 100.5, you have any medication questions . . "Provider Documentation" section prepared by Violette Barahona. . VTE Core Measure Inpt VTE Proph given/why not?: Unfractionated heparin SQ, SCD's
--- NOTE | 2017-11-24 00:21 | Discharge Summary ---
Discharge Summary Date of Service Nov 23, 2017. Discharge Summary Admission Date: Nov 18, 2017 at 07:40 Discharge Date: Nov 23, 2017 Discharge Disposition: Home with services Principal Diagnosis: Acute on chronic hypoxemic respiratory failure, AECOPD, Acute CHF Problems/Secondary Diagnoses: CAD/inferior AR 1999 Hypertension dyslipidemia COPD tobacco abuse chronic systolic/diastolic CHF due to ischemic cardiomyopathy (EF 25-30%) S/P Medtronic ICD/BiV pacemaker implantation 02/21/12 with elective generator replacement 02/21/2017 peripheral arterial disease (S/P right iliofemoral endarterectomy and popliteal/ SFA angioplasties 05/04/13, mesenteric arterial occlusive disease S/P superior mesenteric stent placement 05/03/2017, carotid disease status post left CEA 1990 ) subarachnoid hemorrhage 05/31/2017 acute/chronic hypercarbic/hypoxic respiratory failure likely 2nd to acute/ chronic CHF and exacerbation of COPD Epigastric Pain Suspect gastritis demand ischemia Permanent atrial Fibrillation not on anticoagulation due to history of SAH CKD Stage III Severe mitral valve regurgitation DM 2 with hyperglycemia secondary to corticosteroids Immunizations: Have You Had Influenza Vaccine: Yes Influenza Vaccine Date: Oct 12, 2012 History of Tetanus Vaccine?: Unknown History of Pneumococcal: Unknown History of Hepatitis B Vaccine: No Procedures: Chest x-rays Lower extremity venous Doppler Consultations: Cardiology Medication Reconciliation New Medications: Carvedilol (Coreg) 12.5 Mg Tab 18.75 MG PO BID for 30 Days, #90 TAB Benzonatate (Benzonatate) 100 Mg Cap 100 MG PO TID PRN for Cough for 7 Days, #21 CAP Guaifenesin Ext Rel (Mucinex Ext Rel) 600 Mg Tabcr 600 MG PO Q12 for 30 Days, #60 TAB OTC Levofloxacin (Levofloxacin) 750 Mg Tab 750 MG PO Q2D@1100 for 1 Day, #1 TAB Next and Final dose on 11/24 Nicotine (Nicoderm Cq 7 Mg Patch) 7 Mg/24 Hr Dis 1 PATCH TD QAM for 14 Days OTC Potassium Chloride (Klor-Con M20) 20 Meq Tabcr 20 MEQ PO QAM for 30 Days, #30 TAB Prednisone (Prednisone) 10 Mg Tab 30 MG PO QAM, #13 TAB x2 days then 20mg daily x 2 days then 10mg daily x 2 days, then 5mg daily x 2 days, then stop Changed Medications: Furosemide (Lasix) 40 Mg Tab 40 MG PO BID for 30 Days, #60 TAB (Changed from: QAM) Continued Medications: Aspirin (Aspirin Chewable) 81 Mg Chew 81 MG PO QPM, TAB Atorvastatin (Lipitor) 80 Mg Tab 80 MG PO HS, TAB Clopidogrel Bisulfate (Plavix) 75 Mg Tab 75 MG PO QAM, TAB Docusate Sodium (Docusate Sodium) 100 Mg Cap 1 CAP PO BID, CAP Ezetimibe (Zetia) 10 Mg Tab 10 MG PO HS, TAB Fluticasone Prop/Salmeterol (Advair Diskus 500/50 60 Dose) 1 Ea Aerp 1 PUFFS INH BID, #180 Hydrocortisone 2.5% (Rectal) (Anusol-Hc 2.5%) 2.5 % Cre 1 APPLN TOP BID, #30 GM Ipratropium-Albuterol (Combivent Respimat) 1 Aer Aer 1 PUFFS INH QID, INH Lisinopril (Lisinopril) 5 Mg Tab 5 MG PO QAM Lorazepam (Ativan) 0.5 Mg Tab 0.5 MG PO Q6H PRN for Anxiety for 2 Days, #8 TAB Pramipexole Dihydrochloride (Pramipexole Dihydrochlori) 0.25 Mg Tab 0.25 MG PO HS Sertraline (Zoloft) 50 Mg Tab 50 MG PO QAM, TAB Discontinued Medications: Carvedilol (Coreg) 25 Mg Tab 12.5 MG PO BID, TAB Phenylephrine W/ Dm-GG (Mucinex Congestion & Coug 2.5-5-100 mg/5Ml) 1 Liq Liq 5 ML PO Q4 PRN for MUCOUS/COUGH Prednisone (Prednisone) 20 Mg Tab 60 MG PO QAM, #29 TAB 0 Refills 60mg (3 tabs) daily x 3 days, then 40mg daily x 4 days then 30mg daily x 4 days then 20mg x 4 days then 10mg x 4 days Discharge Exam Patient doing well. Feels her breathing is improved. Is anxious for discharge to home. She continues to diuresis and her weight is down.Paced, 5 beat run of PVCs, rates in 70s Vitals reviewed Gen: AAOx3, NAD HEENT: anicteric sclerae, EOMI CV: RRR, difficult to auscultate murmur Pulm: diminished breath sounds throughout all lung english, some expiratory wheezes but improved from yesterday, no crackles Abd: +BS soft NT ND no masses or hernias Ext: no edema, 2+ DP pulses Skin: no rashes, warm/dry Review of Systems: Constitutional: No fever, No chills Eyes: No problem reported ENT: No problem reported Respiratory: + shortness of breath (At baseline) Cardiovascular: No chest pain Abdomen: No problem reported Musculoskeletal: No problem reported Genitourinary - Female: No problem reported Neurologic: No problem reported Psychiatric: No problem reported Endocrine: No problem reported Hematologic / Lymphatic: No problem reported Integumentary: No problem reported Hospital Course The patient is a 72-year-old white female with a complex past medical history significant for CAD/inferior AR 1999, hypertension, dyslipidemia, type 2 diabetes mellitus, COPD, prior tobacco abuse, systolic/diastolic CHF and ischemic cardiomyopathy (EF 25-30%), S/P Medtronic ICD/BiV pacemaker implantation 02/21/12 with elective generator replacement 02/21/2017, severe mitral regurgitation, peripheral arterial disease (S/P right iliofemoral endarterectomy and popliteal/SFA angioplasties 05/04/13, mesenteric arterial occlusive disease S/P superior mesenteric stent placement 05/03/2017, carotid disease status post left CEA 1990), hyponatremia, and recent right MCA territory ischemic stroke with hemorrhagic conversion versus traumatic right subarachnoid hemorrhage in May 2017 with residual LUE weakness. She presents here with acute on chronic combined systolic and diastolic CHF, and acute exacerbation of COPD. Acute on Chronic Hypercarbic/Hypoxic Respiratory Failure 2/2 COPD Exacerbation and Acute/Chronic combined systolic/Diastolic CHF: - Continues to improve clinically - currently on baseline 2L NC - Continue Duonebs and Prednisone taper will start 30 mg daily on 11/23 - Advair BID - Continue Lasix 40 mg BID which is an increased dose from home dose - Continue Levaquin renally dosed for a total of 7 days - will just need a dose on 11/24 to complete course -Steroids over the last month with multiple hospitalizations may be contributing to her fluid retention -Continues to diurese well on p.o. Lasix 40 mg twice daily -Increase Coreg to 18.75 mg p.o. twice daily for improved blood pressure control and for her CHF --Consideration should be made for repair of her mitral valve at some point, although with her reduced EF, this might not be beneficial Epigastric Pain: RESOLVED - Suspect gastritis - improved with Pepcid - currently on po Protonix - Has known mesenteric ischemia - reporting pain is not similar to this and initial pain reproducible CAD with Elevated Troponin: Chronically Troponin - This is likely demand ischemia related to respiratory issues - ASA 81 mg daily, Plavix 75 mg daily, Zetia 10 mg daily, and Atorvastatin 80 mg daily Permanent Atrial Fibrillation with Pacer-not on anticoagulation due to history of SAH, rate controlled - Coreg increased to 18.75 mg twice a day HTN: Controlled - ACEI on hold currently -fine to restart on discharge CKD Stage III: - Mild elevation resolved - continue to monitor and avoid nephrotoxic agents when able T2DM: Lantus and sliding scale insulin given while here, does not need to be discontinued upon discharge due to well-controlled hemoglobin A1c H/O SAH: Noted DVT Prophylaxis: Heparin BID Disposition: -Stable for discharge to home today Total Time Spent: Greater than 30 minutes This includes examination of the patient, discharge planning, medication reconciliation, and communication with other providers. Discharge Instructions Please refer to the electronic Patient Visit Report (Discharge Instructions) for additional information. Follow-Up With PCP within 1-2 weeks Cardiology within 2 weeks Additional Copies To RV. Edwards MD; Otto Flynn M.D.
== END 2017-11-23 14:13 | disposition home health service (06) | DRG 291 ==
LOC: EDBD 05:34 → C.EDA 05:34 → C.MED 07:40 → ENRESERV 08:03
PROVIDERS: ADMIT Internal Medicine; ATTEND Family Medicine
DX: I50.43 Acute on chronic combined systolic (congestive) and diastolic (congestive) heart failure (principal); J96.21 Acute and chronic respiratory failure with hypoxia; J96.22 Acute and chronic respiratory failure with hypercapnia; I13.0 Hypertensive heart and chronic kidney disease with heart failure and stage 1 through stage 4 chronic kidney disease, or unspecified chronic kidney disease; J44.1 Chronic obstructive pulmonary disease with (acute) exacerbation; I24.8 Other forms of acute ischemic heart disease; T38.0X5A Adverse effect of glucocorticoids and synthetic analogues, initial encounter; I48.2 Chronic atrial fibrillation; E11.65 Type 2 diabetes mellitus with hyperglycemia; I34.0 Nonrheumatic mitral (valve) insufficiency; L89.151 Pressure ulcer of sacral region, stage 1; K29.60 Other gastritis without bleeding; N18.3 Chronic kidney disease, stage 3 (moderate); F41.9 Anxiety disorder, unspecified; E11.22 Type 2 diabetes mellitus with diabetic chronic kidney disease; J45.909 Unspecified asthma, uncomplicated; I25.10 Atherosclerotic heart disease of native coronary artery without angina pectoris; I25.5 Ischemic cardiomyopathy; I25.2 Old myocardial infarction; E78.00 Pure hypercholesterolemia, unspecified; E78.5 Hyperlipidemia, unspecified; I73.9 Peripheral vascular disease, unspecified; F17.200 Nicotine dependence, unspecified, uncomplicated; Z51.81 Encounter for therapeutic drug level monitoring; Z79.899 Other long term (current) drug therapy; Z79.82 Long term (current) use of aspirin; Z79.52 Long term (current) use of systemic steroids; Z79.02 Long term (current) use of antithrombotics/antiplatelets; Z66 Do not resuscitate; Z86.19 Personal history of other infectious and parasitic diseases; Z95.810 Presence of automatic (implantable) cardiac defibrillator; Z87.820 Personal history of traumatic brain injury; Z83.3 Family history of diabetes mellitus; Z80.3 Family history of malignant neoplasm of breast; Z82.49 Family history of ischemic heart disease and other diseases of the circulatory system; Z84.1 Family history of disorders of kidney and ureter

== ENCOUNTER → 2017-12-11 | Outpatient (CLI) | payer BC ==
[~2017-12-11] MED LIST changes: -ATR25 PO; +BENZ100C7 PO; +CARV12.5 PO; -CARV25TA PO; +DOCU100C31 PO; +GFNSR600 PO; +HYDR2.5C37 TOP; +LVQ750 PO; +MCRK20 PO; +NICO7DIS7 TD; -NYSS5 PO; +PRD10 PO; -PRD20 PO; -RBTUDL5 PO; -VITACAP26 PO
[2017-12-11 13:10] LABS: BASO % 0.3 %; BASO ABS # 0.02 K/uL (0-0.2); EOS % 1.3 %; EOS ABS # 0.08 K/uL (0-0.5); HEMATOCRIT 34.4 % (37-47); HEMOGLOBIN 11.1 g/dL (12.0-16.0); IG# 0.01 K/uL (0.00-0.02); LYMPH % 25.6 %; LYMPH ABS # 1.61 K/uL (1.2-3.4); MEAN CELL VOLUME 91.5 fL (80-100); MEAN CORPUSCULAR HEMOGLOBIN 29.5 pg (25-34); MEAN CORPUSCULAR HGB CONC 32.3 g/dl (32-36); MEAN PLATELET VOLUME 9.3 fL (7.4-10.4); MONO % 14.9 %; MONO ABS # 0.94 K/uL (0.11-0.59); NEUT % 57.7 %; NEUT ABS # 3.64 K/uL (1.4-6.5); PLATELET COUNT 217 K/uL (130-400); RED CELL DISTRIBUTION WIDTH CV 18.6 % (11.5-14.5); RED CELL DISTRIBUTION WIDTH SD 62.8 fL (36.4-46.3)
[2017-12-11 13:36] LABS: ALBUMIN 3.3 gm/dl (3.4-5.0); ALT/SGPT 31 U/L (12-78); BLOOD UREA NITROGEN 34 mg/dl (7-18); CALCIUM 8.9 mg/dl (8.5-10.1); CARBON DIOXIDE 30 mmol/L (21-32); CREATININE 0.79 mg/dl (0.60-1.20); GLUCOSE 83 mg/dl (70-99); POTASSIUM 4.1 mmol/L (3.5-5.1); SODIUM 137 mmol/L (136-145)
[2017-12-11 13:44] LABS: ALKALINE PHOSPHATASE 61 U/L (45-117); AST/SGOT 23 U/L (15-37); TOTAL PROTEIN 6.7 gm/dl (6.4-8.2)
== END | disposition home or self-care (01) ==
LOC: C.LAB1850 12:11
PROVIDERS: ATTEND Internal Medicine Cardiovascular Disease
DX: E78.5 Hyperlipidemia, unspecified (principal)

== ENCOUNTER → 2018-01-21 | Outpatient (CLI) | payer BC ==
[~2018-01-21] MED LIST changes: +ACET-1256 PO; +ALBINS NEB; +ATR10 PO; +GABA-112 PO; +GUAISYP4 PO; +OXGN; +PRD20 PO; +VNTHFA/IN INH
--- NOTE | 2018-01-21 11:55 | DIAGNOSTIC IMAGING REPORT ---
CHEST 2 VIEWS ROUTINE CLINICAL HISTORY: J06.9 Acute upper respiratory [id number] Anxiety disorderRAD dyspnea COMPARISON STUDY: 11/21/2017 FINDINGS: Mild stable cardiomegaly. Permanent bipolar cardiac pacemaker/defibrillator. Very small left effusion. Mild prominence of pulmonary vasculature. IMPRESSION: Mild cardia megaly with evidence for pulmonary venous congestion. Minimal left pleural effusion. The above report was generated using voice recognition software. It may contain grammatical, syntax or spelling errors. Electronically signed by: César Muñoz M.D. 01/21/2018 11:54 AM Dictated Date/Time: 01/21/2018 11:53 AM
[2018-01-21 14:33] LABS: BASO % 0.3 %; BASO ABS # 0.02 K/uL (0-0.2); EOS ABS # 0.39 K/uL (0-0.5); HEMATOCRIT 41.5 % (37-47); IG# 0.03 K/uL (0.00-0.02); LYMPH % 20.3 %; LYMPH ABS # 1.59 K/uL (1.2-3.4); MEAN CELL VOLUME 90.2 fL (80-100); MEAN CORPUSCULAR HEMOGLOBIN 28.3 pg (25-34); MEAN CORPUSCULAR HGB CONC 31.3 g/dl (32-36); MEAN PLATELET VOLUME 9.9 fL (7.4-10.4); MONO % 10.6 %; MONO ABS # 0.83 K/uL (0.11-0.59); NEUT % 63.4 %; NEUT ABS # 4.97 K/uL (1.4-6.5); PLATELET COUNT 223 K/uL (130-400); RED CELL DISTRIBUTION WIDTH CV 17.2 % (11.5-14.5); WHITE BLOOD COUNT 7.83 K/uL (4.8-10.8)
[2018-01-21 15:12] LABS: ALBUMIN 3.5 gm/dl (3.4-5.0); ALT/SGPT 26 U/L (12-78); AST/SGOT 18 U/L (15-37); BLOOD UREA NITROGEN 35 mg/dl (7-18); CALCIUM 9.1 mg/dl (8.5-10.1); CARBON DIOXIDE 31 mmol/L (21-32); CREATININE 1.08 mg/dl (0.60-1.20); GLUCOSE 86 mg/dl (70-99); POTASSIUM 3.9 mmol/L (3.5-5.1); SODIUM 137 mmol/L (136-145)
[2018-01-21 15:15] LABS: ALKALINE PHOSPHATASE 60 U/L (45-117); TOTAL PROTEIN 6.7 gm/dl (6.4-8.2)
== END | disposition home or self-care (01) ==
LOC: C.RAD1850 11:40
PROVIDERS: ATTEND Internal Medicine
DX: F41.9 Anxiety disorder, unspecified (principal); J06.9 Acute upper respiratory infection, unspecified

== ENCOUNTER 2018-02-11 15:05 | Inpatient (IN) | payer BC, OTHER ==
[~2018-02-11] VITALS: Ht 160 cm; Wt 52.1 kg
[~2018-02-11 15:05] MED LIST changes: -ADVIN50/60 INH; -BENZ100C7 PO; -DOCU100C31 PO; -GFNSR600 PO; -LSN5 PO; -LVQ750 PO; -NICO7DIS7 TD; -PRD10 PO
[2018-02-11] MEDS ORDERED: AZITHROMYCIN 250 MG TAB PO STA (15:20)
[2018-02-11] MEDS ORDERED: METHYLPREDNISOLONE 125 MG VIAL IV STA (15:20)
[2018-02-11] MEDS ORDERED: MAGNESIUM SULFATE 1GM / D5W 100 ML IV STA (15:20)
--- NOTE | 2018-02-11 15:27 | EMERGENCY ROOM VISIT NOTE ---
History Report prepared by Phillip: Carmelita Farooq Under the Supervision of: Dr. Sergei Feliciano M.D. First contact with patient: 15:11 Chief Complaint: RESPIRATORY PROBLEMS Stated Complaint: BREATHING ISSUE, CHEST FEELS TIGHT History of Present Illness The patient is a 72 year old white female with a past medical history of CHF, asthma, CKD, COPD, DM, emphysema, hypercholesterolemia on home O2 who presents to the ED with a cc of worsening SOB beginning yesterday. SOB worsens with exertion and lying flat. No improvement with inhalers at home. Positive 1lb weight gain. Negative cough, fever, chills. She last smoked a couple months ago. She is around people who smoke. She did take her Lasix today. She was started on a new inhaler recently. Source of History: patient Onset: yesterday Position: chest Quality: other (SOB) Timing: worsening Modifying Factors (Worsening): exertion, other (lying flat) Associated Symptoms: No fevers, No chills, No cough Note: Pt reports 1 lb weight gain. Review of Systems See HPI for pertinent positives and negatives. A total of ten systems were reviewed and were otherwise negative. Past Medical & Surgical Medical Problems: (1) Acute and chronic respiratory failure with hypercapnia (2) Acute on chronic systolic (congestive) heart failure (3) AICD malfunction (4) ANEMIA NOS (5) ASTHMA, UNSPECIFIED (6) Cardiac defibrillator in place (7) CHF (congestive heart failure) (8) CHF exacerbation (9) CHRONIC KIDNEY DISEASE, UNSPECIFIED (10) COPD (chronic obstructive pulmonary disease) (11) COPD exacerbation (12) COPD exacerbation (13) CORONARY ATHEROSCLEROSIS OF [place] CORONARY VESSEL (14) DIAB [place] WO COMPL, TYPE II OR UNSPEC TYPE, NOT UNCNTRLD (15) Elevated troponin (16) Emphysema of lung (17) Hypoxia (18) Influenza A (19) Non compliance w medication regimen (20) Pulmonary congestion (21) PURE HYPERCHOLESTEROLEM (22) Respiratory distress (23) Syncope Family History Breast cancer Diabetes mellitus FH: heart disease Hypertension Kidney disease Kidney stones Lung disease Myocardial infarction Social History Smoking Status: Former Smoker Alcohol Use: occasionally Drug Use: none Marital Status: Housing Status: lives with family Occupation Status: retired Current/Historical Medications Scheduled Albuterol Hfa (Ventolin Hfa), 1-2 PUFFS INH Q4-6HRS Aspirin (Aspirin Ec), 81 MG PO DAILY Atorvastatin (Lipitor), 80 MG PO HS Carvedilol (Carvedilol), 18.75 MG PO BIDM Clopidogrel Bisulfate (Clopidogrel), 75 MG PO DAILY Ezetimibe (Ezetimibe), 10 MG PO HS Fluticasone Prop/Salmeterol (Advair Diskus 500/50 60 Dose), 1 PUFF INH BID Furosemide (Furosemide), 40 MG PO BID Home O2 Therapy (Oxygen), 2 LITER NA UD Hydrocortisone 2.5% (Rectal) (Anusol-Hc 2.5%), 1 APPLN TOP BID Hydroxyzine HCl (Hydroxyzine HCl), 10 MG PO HS Ipratropium-Albuterol (Combivent Respimat), 1 PUFF INH QID Lisinopril (Lisinopril), 5 MG PO QAM Potassium Ext Rel (Klor-Con), 20 MEQ PO DAILY Pramipexole Dihydrochloride (Pramipexole Dihydrochlori), 0.25 MG PO HS Sertraline HCl (Sertraline HCl), 50 MG PO DAILY Scheduled PRN Acetaminophen (Tylenol), 500 MG PO 4-6HRS PRN for Pain Albuterol Sulf (Albuterol Sulfate), 3 ML NEB 4-6HRS PRN for SOB/Wheezing Guaifenesin/Codeine (Robitussin-Ac Syrup), 10 ML PO Q6H PRN for Cough Allergies Coded Allergies: Sulfa Antibiotics (Verified Allergy, Intermediate, RASH, 02/11/18) Morphine (Verified Adverse Reaction, Mild, GI SYMPTOMS, 02/11/18) Physical Exam Vital Signs Date Time Temp Pulse Resp B/P (MAP) Pulse Ox O2 Delivery O2 Flow Rate FiO2 02/11/18 18:21 80 22 137/51 99 Mask 5.0 Nebulizer 02/11/18 18:18 81 22 97 Nasal Cannula 2.0 02/11/18 17:26 80 26 137/55 95 Nasal Cannula 3.0 02/11/18 16:46 79 24 97 Nasal Cannula 1.5 02/11/18 16:32 76 24 135/56 100 Nebulizer 02/11/18 15:42 Nasal Cannula 3.0 02/11/18 15:39 Nasal Cannula 3.0 02/11/18 15:39 95 Nasal Cannula 3.0 02/11/18 15:31 83 02/11/18 15:09 36.6 77 24 126/55 95 Room Air Physical Exam GENERAL: Awake, alert, well-appearing, mild distress, tachypneic HENT: Normocephalic, atraumatic. EYES: Normal conjunctiva. Sclera non-icteric. PERRL. No anisocoria. NECK: Supple. No nuchal rigidity. FROM. RESPIRATORY: Insp/exp wheezing throughout, no crackles, no rhonchi. CARDIAC: RRR, no MRG ABDOMEN: Soft, NTND, BS+ MSK: No chest wall TTP, trace pretibial edema b/l, no disparity of temperature to touch of the b/l LE. NEURO: GCS 15, CN 2-12 intact, moves all 4s on command SKIN: No rash or jaundice noted. Medical Decision & Procedures ER Provider Diagnostic Interpretation: Radiology results as stated below per my review and radiologist interpretation: CHEST ONE VIEW PORTABLE CLINICAL HISTORY: EVALUATE RESPIRATORY DISTRESS.DYSPNEA chest pain COMPARISON STUDY: 01/24/2018 FINDINGS: Mild increase in cardiac size compared to the prior study. Permanent bipolar cardiac pacemaker defibrillator with leads in good position. Diaphragms are smooth. Lungs are considered clear. IMPRESSION: Mild cardiomegaly. Otherwise negative study. The above report was generated using voice recognition software. It may contain grammatical, syntax or spelling errors. Electronically signed by: César Muñoz M.D. 02/11/2018 3:35 PM Dictated Date/Time: 02/11/2018 3:35 PM Laboratory Results 02/11/18 15:25 Red Blood Count 4.79, Mean Corpuscular Volume 90.2, Mean Corpuscular Hemoglobin 29.0, Mean Corpuscular Hemoglobin Concent 32.2, Mean Platelet Volume 9.2, Neutrophils (%) (Auto) 66.9, Lymphocytes (%) (Auto) 21.0, Monocytes (%) (Auto) 10.7, Eosinophils (%) (Auto) 0.9, Basophils (%) (Auto) 0.1, Neutrophils # (Auto ) 5.13, Lymphocytes # (Auto) 1.61, Monocytes # (Auto) 0.82, Eosinophils # (Auto ) 0.07, Basophils # (Auto) 0.01 02/11/18 15:25 Test 02/11/18 15:25 02/11/18 16:21 White Blood Count 7.67 K/uL (4.8-10.8) Red Blood Count 4.79 M/uL (4.2-5.4) Hemoglobin 13.9 g/dL (12.0-16.0) Hematocrit 43.2 % (37-47) Mean Corpuscular Volume 90.2 fL (80-100) Mean Corpuscular Hemoglobin 29.0 pg (25-34) Mean Corpuscular Hemoglobin Concent 32.2 g/dl (32-36) Platelet Count 187 K/uL (130-400) Mean Platelet Volume 9.2 fL (7.4-10.4) Neutrophils (%) (Auto) 66.9 % Lymphocytes (%) (Auto) 21.0 % Monocytes (%) (Auto) 10.7 % Eosinophils (%) (Auto) 0.9 % Basophils (%) (Auto) 0.1 % Neutrophils # (Auto) 5.13 K/uL (1.4-6.5) Lymphocytes # (Auto) 1.61 K/uL (1.2-3.4) Monocytes # (Auto) 0.82 K/uL (0.11-0.59) Eosinophils # (Auto) 0.07 K/uL (0-0.5) Basophils # (Auto) 0.01 K/uL (0-0.2) RDW Standard Deviation 57.5 fL (36.4-46.3) RDW Coefficient of Variation 17.7 % (11.5-14.5) Immature Granulocyte % (Auto) 0.4 % Immature Granulocyte # (Auto) 0.03 K/uL (0.00-0.02) Anion Gap 6.0 mmol/L (3-11) Est Creatinine Clear Calc Drug Dose 30.3 ml/min Estimated GFR () 45.4 Estimated GFR (Non- 39.2 BUN/Creatinine Ratio 39.5 (10-20) Calcium Level 8.8 mg/dl (8.5-10.1) Total Bilirubin 0.7 mg/dl (0.2-1) Aspartate Amino Transf (AST/SGOT) 27 U/L (15-37) Alanine Aminotransferase (ALT/SGPT) 43 U/L (12-78) Alkaline Phosphatase 75 U/L (45-117) Troponin I 0.083 ng/ml (0-0.045) Pro-B-Type Natriuretic Peptide 4246 pg/ml (0-900) Total Protein 7.5 gm/dl (6.4-8.2) Albumin 3.7 gm/dl (3.4-5.0) Globulin 3.8 gm/dl (2.5-4.0) Albumin/Globulin Ratio 1.0 (0.9-2) Prothrombin Time 10.4 SECONDS (9.0-12.0) Prothromb Time International Ratio 1.0 (0.9-1.1) Activated Partial Thromboplast Time 23.3 SECONDS (21.0-31.0) Partial Thromboplastin Ratio 0.9 Laboratory results reviewed by me Medications Administered Medications (Trade) Dose Ordered Sig/Osmani Route Start Time Stop Time Status Last Admin Dose Admin Albuterol/ Ipratropium (Duoneb) 12 ml ONE ONCE INH 02/11/18 15:30 02/11/18 15:31 DC 02/11/18 15:30 12 ML Azithromycin (Zithromax Tab) 500 mg NOW STAT PO 02/11/18 15:20 02/11/18 15:23 DC 02/11/18 15:33 500 MG Methylprednisolone Sodium Succinate (Solu-Medrol IV) 125 mg NOW STAT IV 02/11/18 15:20 02/11/18 15:23 DC 02/11/18 15:33 125 MG Magnesium Sulfate 100 ml @ 100 mls/hr NOW STAT IV 02/11/18 15:20 02/11/18 16:19 DC 02/11/18 15:33 100 MLS/HR Albuterol/ Ipratropium (Duoneb) 12 ml ONE STAT INH 02/11/18 18:01 02/11/18 18:02 DC 02/11/18 18:15 12 ML ECG Per My Interpretation Indication: SOB/dyspnea Rate (beats per minute): 81 Rhythm: other (AV paced) Findings: Q waves (throughout), T-wave inversion (Anterior), other (wide QRS) Comparison ECG Date: 22-Jan-2018 Change: Rate decreased, otherwise no significant change. ED Course 1515: The patient was evaluated in room B9. A complete history and physical exam was performed. 1640: I reevaluated the patient. She is feeling better. I discussed the results with her. She will have an ambulatory trial. 1733: Patient completed ambulatory trial. Oxygen was 95%. Pt was tachypneic. 1756: Upon reexamination, the patient still had diffuse ins/exp wheezing. I discussed the test results and treatment plan with her. The patient will be evaluated for further management. 1811: I discussed the patient's case with Dr. Estevez, [facility] hospital[place]. The patient will be evaluated for further treatment and disposition. Medical Decision Nursing notes reviewed. Ancillary studies and prior records reviewed. The patient is a 72 year old white female with a past medical history of CHF, asthma, CKD, COPD, DM, emphysema, hypercholesterolemia who presents to the ED with a cc of worsening SOB beginning yesterday. Differential diagnosis: Etiologies such as infections, reactive airway disease, pneumonia, pneumothorax , COPD, CHF, cardiac ischemia, pulmonary embolism, musculoskeletal, gastrointestinal, as well as others were entertained. Patient was seen and evaluated the bedside. Patient was complaining of some shortness of breath and associated dyspnea on exertion. This been ongoing 3-4 days. Patient has not smoked in approximately 3-4 months. Patient denies any recent exposures but does state that she is around people do smoke. Patient denies any chest pains. Patient takes maybe she has a trace fluid. Patient has gained approximate 1 pound in the last week. Patient states that she does take her medications as recently had a change in her inhalers. Patient did have blood work completed, EKG, troponin, chest x-ray. Patient was given nebs, mag, methylprednisone, and azithromycin. Patient CT shows AV paced rhythm. Wide QRS. This appears fairly unchanged from prior. Patient did have an ambulatory trial after given medications and duo nebs. Patient did not desat however the patient was fairly tachypneic in the 30s. Patient cannot complete her rather regular ADLs at this time. Patient does have an elevated troponin and BNP. Patient's BNP is usually elevated at baseline. Also her troponin is also elevated at baseline. There may be an element of deconditioning in addition to her her COPD. The patient was given additional hour-long DuoNeb. Patient was admitted for further evaluation and treatment. Medication Reconcilliation Current Medication List: was personally reviewed by me Blood Pressure Screening Patient's blood pressure: Elevated blood pressure Referred to hospitalist. Consults Time Called: 180 Consulting Physician: Dr. Estevez [facility] hospitalist Returned Call: [phone] Discussed the patient's case. The patient will be evaluated for further treatment and disposition. Impression Primary Impression: COPD exacerbation Scribe Attestation The scribe's documentation has been prepared under my direction and personally reviewed by me in its entirety. I confirm that the note above accurately reflects all work, treatment, procedures, and medical decision making performed by me. Departure Information Dispostion Being Evaluated By Hospitalist Referrals RV. Edwards MD (PCP) Patient Instructions My [facility]
[2018-02-11] MEDS ORDERED: ALBUT/IPRATROP 3MG/0.5MG NEB 3 ML VIAL INH ONE (15:30)
--- NOTE | 2018-02-11 15:37 | DIAGNOSTIC IMAGING REPORT ---
CHEST ONE VIEW PORTABLE CLINICAL HISTORY: EVALUATE RESPIRATORY DISTRESS.DYSPNEA chest pain COMPARISON STUDY: 01/24/2018 FINDINGS: Mild increase in cardiac size compared to the prior study. Permanent bipolar cardiac pacemaker defibrillator with leads in good position. Diaphragms are smooth. Lungs are considered clear. IMPRESSION: Mild cardiomegaly. Otherwise negative study. The above report was generated using voice recognition software. It may contain grammatical, syntax or spelling errors. Electronically signed by: César Muñoz M.D. 02/11/2018 3:35 PM Dictated Date/Time: 02/11/2018 3:35 PM
[2018-02-11 15:40] LABS: BASO % 0.1 %; BASO ABS # 0.01 K/uL (0-0.2); EOS % 0.9 %; EOS ABS # 0.07 K/uL (0-0.5); HEMATOCRIT 43.2 % (37-47); HEMOGLOBIN 13.9 g/dL (12.0-16.0); IG# 0.03 K/uL (0.00-0.02); LYMPH ABS # 1.61 K/uL (1.2-3.4); MEAN CELL VOLUME 90.2 fL (80-100); MEAN CORPUSCULAR HGB CONC 32.2 g/dl (32-36); MEAN PLATELET VOLUME 9.2 fL (7.4-10.4); MONO % 10.7 %; MONO ABS # 0.82 K/uL (0.11-0.59); NEUT % 66.9 %; NEUT ABS # 5.13 K/uL (1.4-6.5); PLATELET COUNT 187 K/uL (130-400); RED CELL DISTRIBUTION WIDTH CV 17.7 % (11.5-14.5); RED CELL DISTRIBUTION WIDTH SD 57.5 fL (36.4-46.3); WHITE BLOOD COUNT 7.67 K/uL (4.8-10.8)
[2018-02-11 15:56] LABS: ALBUMIN 3.7 gm/dl (3.4-5.0); CALCIUM 8.8 mg/dl (8.5-10.1); CREATININE 1.34 mg/dl (0.60-1.20); POTASSIUM 3.5 mmol/L (3.5-5.1)
[2018-02-11 16:05] LABS: TOTAL PROTEIN 7.5 gm/dl (6.4-8.2)
[2018-02-11 16:44] LABS: PTT PATIENT 23.3 SECONDS (21.0-31.0)
[2018-02-11 16:46] VITALS: PULSE 79; O2SAT 97
[2018-02-11] MEDS ORDERED: PLV75 PO (17:26)
[2018-02-11] MEDS ORDERED: ASPI81TA28 PO (17:29)
[2018-02-11] MEDS ORDERED: POTA-639 PO (17:32)
[2018-02-11] MEDS ORDERED: GUAISYP4 PO (17:34)
[2018-02-11] MEDS ORDERED: ATOR-26 PO (17:57)
[2018-02-11] MEDS ORDERED: LSX40 PO (17:57)
[2018-02-11] MEDS ORDERED: CRG125 PO (17:57)
[2018-02-11] MEDS ORDERED: EZET10TA66 PO (17:57)
[2018-02-11] MEDS ORDERED: ZLF/50 PO (17:57)
[2018-02-11] MEDS ORDERED: ALBUT/IPRATROP 3MG/0.5MG NEB 3 ML VIAL INH STA (18:01)
[2018-02-11 18:18] VITALS: PULSE 81; O2SAT 97
[2018-02-11] MEDS ORDERED: LSN5 PO (19:26)
[2018-02-11] MEDS ORDERED: ADVIN50/60 INH (19:58)
[2018-02-11] MEDS ORDERED: HYDROCORTISONE HC 2.5% CRM 30GM TUBE EXT PRN (20:00)
[2018-02-11] MEDS ORDERED: NON-FORMULARY MEDICATION (Home O2 Therapy (Oxygen) 2 LITER) SCH (20:00)
[2018-02-11] MEDS ORDERED: ONDANSETRON INJ 2 MG/ML 2 ML VIAL IV PRN (20:00)
[2018-02-11] MEDS ORDERED: ACETAMINOPHEN 325 MG TAB PO PRN (20:00)
[2018-02-11] MEDS ORDERED: ALUMINUM/MAGNESIUM/SIMETH (MAALOX MAX) 30 ML UDC PO PRN (20:00)
[2018-02-11] MEDS ORDERED: ALBUTEROL 0.083% NEBU SOLN 3 ML VIAL INH PRN (20:00)
[2018-02-11] MEDS: ALBUT/IPRATROP 3MG/0.5MG NEB 3 ML VIAL INH SCH ×2 (20:00→23:09)
[2018-02-11 20:02] VITALS: Ht 160 cm; Wt 52.1 kg
[2018-02-11] MEDS ORDERED: ACETAMINOPHEN 325 MG TAB ONE (20:14)
--- NOTE | 2018-02-11 20:44 | History and Physical ---
History & Physical Date & Time of Service: February 11, 2018 at 20:07 Chief Complaint: Breathing Issue, Chest Feels Tight Primary Care Physician: RV. Edwards MD History of Present Illness Source: patient, family Patient is a 72yo C female with multiple medical comorbidities most notably CAD s/p SC and biventricular AICD placement, dilated ischemic cardiomyopathy with EF of 30%, O2 dependent COPD and asthma presenting with 3-4 days of progressive shortness of breath and CHOWDHURY. She reports a stable, nonproductive cough. No fevers or chills but has been having some sweats at night. She had an episode of substernal chest heaviness that occurred this afternoon around 1200 and resolved shortly after starting. She denies orthopnea, weight gain or increase in LE edema. Denies palpitations. She attempted to use her inhalers at home to improve her breathing but they did not help. No additional complaints at this time. Upon arrival to the ER she was found to be tachypnic with RR of 24. She was administered nebs x 2, steroids and magnesium with mild improvement in symptoms. An ambulatory trial was attempted after treatment given - O2 sats preserved but patient became tachypnic with RR in the 30's. ER Course: DuoNeb x 2, Azithromycin 500mg IV, Solumedrol 125mg IV, Magnesium. Past Medical/Surgical History Medical Problems: 1. Acute and chronic respiratory failure with hypercapnia 2. Asthma 3. CHF - dilated ICM with EF of 20% s/p BiV AICD in place 4. CAD s/p SC 5. CVA in May 2017 6. CKD 7. COPD - O2 dependent 8. Diabetes mellitis - diet controlled 9. Hyperlipidemia 10. Elevated troponin 11. LBBB 12. History of mesenteric ischemia 13. Aortic stenosis 14. Mitral regurgitation Past Surgical History: Biventricular ICD placement Left carotid endarterectomy Aortic stents Hysterectomy (25) Elevated troponin (26) Elevated troponin (27) Emphysema of lung (28) Facial contusion (29) Febrile illness, acute (30) Hyponatremia (31) Hypoxia (32) Hypoxia (33) Influenza (34) Influenza A (35) Intracranial bleeding (36) Intractable nausea and vomiting (37) Mesenteric ischemia (38) Mesenteric ischemia (39) Multiple contusions (40) Nausea (41) Nausea (42) Non compliance w medication regimen (43) Pulmonary congestion (44) Pulmonary edema (45) Pulmonary edema (46) Pulmonary vascular congestion (47) PURE HYPERCHOLESTEROLEM (48) Respiratory distress (49) Respiratory distress (50) Respiratory failure (51) SOB (shortness of breath) (52) Syncope (53) Syncope (54) Weakness Family History Breast cancer Diabetes mellitus FH: heart disease Hypertension Kidney disease Kidney stones Lung disease Myocardial infarction Social History Smoking Status: Former Smoker Smokeless Tobacco Use: No Alcohol Use: none Drug Use: none Marital Status: Housing status: lives with significant other Occupational Status: retired Immunizations History of Influenza Vaccine: Yes Influenza Vaccine Date: Oct 12, 2012 History of Tetanus Vaccine?: Unknown History of Pneumococcal: Unknown History of Hepatitis B Vaccine: No Allergies Coded Allergies: Sulfa Antibiotics (Verified Allergy, Intermediate, RASH, 02/11/18) Morphine (Verified Adverse Reaction, Mild, GI SYMPTOMS, 02/11/18) Home Medications Scheduled Albuterol Hfa (Ventolin Hfa), 1-2 PUFFS INH Q4-6HRS Aspirin (Aspirin Ec), 81 MG PO DAILY Atorvastatin (Lipitor), 80 MG PO HS Carvedilol (Carvedilol), 18.75 MG PO BIDM Clopidogrel Bisulfate (Clopidogrel), 75 MG PO DAILY Ezetimibe (Ezetimibe), 10 MG PO HS Fluticasone Prop/Salmeterol (Advair Diskus 500/50 60 Dose), 1 PUFF INH BID Furosemide (Furosemide), 40 MG PO BID Home O2 Therapy (Oxygen), 2 LITER NA UD Hydrocortisone 2.5% (Rectal) (Anusol-Hc 2.5%), 1 APPLN TOP BID Hydroxyzine HCl (Hydroxyzine HCl), 10 MG PO HS Ipratropium-Albuterol (Combivent Respimat), 1 PUFF INH QID Lisinopril (Lisinopril), 5 MG PO QAM Potassium Ext Rel (Klor-Con), 20 MEQ PO DAILY Pramipexole Dihydrochloride (Pramipexole Dihydrochlori), 0.25 MG PO HS Sertraline HCl (Sertraline HCl), 50 MG PO DAILY Scheduled PRN Acetaminophen (Tylenol), 500 MG PO 4-6HRS PRN for Pain Albuterol Sulf (Albuterol Sulfate), 3 ML NEB 4-6HRS PRN for SOB/Wheezing Guaifenesin/Codeine (Robitussin-Ac Syrup), 10 ML PO Q6H PRN for Cough Review of Systems Constitutional: + sweats, No fever, No chills, No weight loss, No weakness, No fatigue Eyes: No worsening of vision, No redness, No diplopia ENT: No hearing loss, No unusual epistaxis, No sore throat, No trouble swallowing Respiratory: + cough, + sputum, + wheezing, + shortness of breath, + dyspnea on exertion, + dyspnea at rest, No hemoptysis Cardiovascular: No chest pain, No orthopnea, No edema, No palpitations Abdomen: No pain, No nausea, No vomiting, No diarrhea, No constipation, No GI bleeding Musculoskeletal: No joint pain, No muscle pain Genitourinary - Female: No dysuria, No urinary frequency, No urinary urgency Neurologic: No weakness Endocrine: No fatigue Hematologic / Lymphatic: No abnormal bleeding/bruising, No clotting problems Integumentary: No rash, No itch Physical Exam Vital Signs Date Time Temp Pulse Resp B/P (MAP) Pulse Ox O2 Delivery O2 Flow Rate FiO2 02/11/18 19:38 84 02/11/18 18:21 80 22 137/51 99 Mask 5.0 Nebulizer 02/11/18 18:18 81 22 97 Nasal Cannula 2.0 02/11/18 17:26 80 26 137/55 95 Nasal Cannula 3.0 02/11/18 16:46 79 24 97 Nasal Cannula 1.5 02/11/18 16:32 76 24 135/56 100 Nebulizer 02/11/18 15:42 Nasal Cannula 3.0 02/11/18 15:39 Nasal Cannula 3.0 02/11/18 15:39 95 Nasal Cannula 3.0 02/11/18 15:31 83 02/11/18 15:09 36.6 77 24 126/55 95 Room Air General: resting comfortably in bed, NAD Skin: warm, dry, intact, multiple scattered ecchymoses on bilateral arms HEENT: NC/AT, PERRL, anicteric sclera, MMM, dentition intact, neck supple, no JVD, no thyromegaly Heart: distant heart sounds, +S1/S2, regular, no m/r/g Lungs: equal air entry bilaterally, diffuse inspiratory and end expiratory wheezing throughout bilateral lung english, dry cough, no rales/rhonchi Abdomen: +BS, soft, NT/ND, no masses/organomegaly Extremities: 1+ edema of bilateral LE to knees, equal Diagnostics Laboratory Results Results Past 24 Hours Test 02/11/18 15:25 02/11/18 16:21 Range/Units White Blood Count 7.67 4.8-10.8 K/uL Red Blood Count 4.79 4.2-5.4 M/uL Hemoglobin 13.9 12.0-16.0 g/dL Hematocrit 43.2 37-47 % Mean Corpuscular Volume 90.2 80-100 fL Mean Corpuscular Hemoglobin 29.0 25-34 pg Mean Corpuscular Hemoglobin Concent 32.2 32-36 g/dl Platelet Count 187 130-400 K/uL Mean Platelet Volume 9.2 7.4-10.4 fL Neutrophils (%) (Auto) 66.9 % Lymphocytes (%) (Auto) 21.0 % Monocytes (%) (Auto) 10.7 % Eosinophils (%) (Auto) 0.9 % Basophils (%) (Auto) 0.1 % Neutrophils # (Auto) 5.13 1.4-6.5 K/uL Lymphocytes # (Auto) 1.61 1.2-3.4 K/uL Monocytes # (Auto) 0.82 0.11-0.59 K/uL Eosinophils # (Auto) 0.07 0-0.5 K/uL Basophils # (Auto) 0.01 0-0.2 K/uL RDW Standard Deviation 57.5 36.4-46.3 fL RDW Coefficient of Variation 17.7 11.5-14.5 % Immature Granulocyte % (Auto) 0.4 % Immature Granulocyte # (Auto) 0.03 0.00-0.02 K/uL Sodium Level 141 136-145 mmol/L Potassium Level 3.5 3.5-5.1 mmol/L Chloride Level 103 98-107 mmol/L Carbon Dioxide Level 33 21-32 mmol/L Anion Gap 6.0 3-11 mmol/L Blood Urea Nitrogen 53 7-18 mg/dl Creatinine 1.34 0.60-1.20 mg/dl Est Creatinine Clear Calc Drug Dose 30.3 ml/min Estimated GFR () 45.4 Estimated GFR (Non- 39.2 BUN/Creatinine Ratio 39.5 10-20 Random Glucose 103 70-99 mg/dl Calcium Level 8.8 8.5-10.1 mg/dl Total Bilirubin 0.7 0.2-1 mg/dl Aspartate Amino Transf (AST/SGOT) 27 15-37 U/L Alanine Aminotransferase (ALT/SGPT) 43 12-78 U/L Alkaline Phosphatase 75 45-117 U/L Troponin I 0.083 0-0.045 ng/ml Pro-B-Type Natriuretic Peptide 4246 0-900 pg/ml Total Protein 7.5 6.4-8.2 gm/dl Albumin 3.7 3.4-5.0 gm/dl Globulin 3.8 2.5-4.0 gm/dl Albumin/Globulin Ratio 1.0 0.9-2 Prothrombin Time 10.4 9.0-12.0 SECONDS Prothromb Time International Ratio 1.0 0.9-1.1 Activated Partial Thromboplast Time 23.3 21.0-31.0 SECONDS Partial Thromboplastin Ratio 0.9 Diagnostic Radiology CHEST ONE VIEW PORTABLE CLINICAL HISTORY: EVALUATE RESPIRATORY DISTRESS.DYSPNEA chest pain COMPARISON STUDY: 01/24/2018 FINDINGS: Mild increase in cardiac size compared to the prior study. Permanent bipolar cardiac pacemaker defibrillator with leads in good position. Diaphragms are smooth. Lungs are considered clear. IMPRESSION: Mild cardiomegaly. Otherwise negative study. EKG The study demonstrates atrial sensed, ventricular paced rhythm Impression Assessment and Plan 72yo C female with multiple medical comorbidities presenting with progressive CHOWDHURY/SOB x 3-4 days as well as episode of chest heaviness. Patient with known history of COPD, end-stage, O2 dependent with frequent hospital visits for exacerbations. 1. COPD exacerbation - patient with CHOWDHURY/SOB, diffuse inspiratory and expiratory wheezing on pulmonary exam, tachypnic with RR in the 30's during ambulatory trial. No fever/leukocytosis or infiltrate to suggest infectious etiology. Patient with elevated troponin and BNP at baseline - present elevations are far less than prior results. -Observation - Med-Surge\ -DuoNeb q 4 hours scheduled -Albuterol q 4 hours PRN -Azithromycin - patient received 500mg IV while in ER, will continue with 250mg IV daily -Solumedrol 40mg IV q 8 hours -Continue Advair 2. CAD s/p SC - patient with episode of chest heaviness earlier today. Most likely non-cardiac in nature given description. Chronic elevation of troponin. No acute evidence of ischemia on EKG. Patient denies ICD events/firing. -Trend troponin q 8 hours x 3 sets -Continue home cardiac medications to include ASA 81mg, Lipitor 80mg, Plavix 75mg, Coreg 18.75mg BID and Lisinopril 5mg 3. CHF - dilated ischemic cardiomyopathy with depressed EF of 25 - 30% per echocardiogram 02/2017. Patient does not presently appear to be in acute decompensated heart failure. No rales on exam, mild edema of bilateral LE at baseline -Continue home Lasix 40mg po BID -Continue daily K supplementation -Monitor electrolytes daily -Continue Carvedilol and Lisinopril, ASA/Plavix/Lipitor and Zetia 4. CKD - patient with BUN of 53, slightly higher than baseline of appx 45-50, Cr of 1.34 (baseline appx 1). -Continue to monitor daily labs -Encourage PO intake -Renal dosing where appropriate for CrCl of 30.3 -Avoid nephrotoxic medications 5. Diabetes - diet controlled, AIC 6.2 in October 2017, blood sugar presently 103 -Continue to monitor, daily labs 6. Hyperlipidemia - continue Zetia and Lipitor at home dosage 7. History of CVA - stable -Continue ASA and Statin 8. F/E/N - Heplock, monitor electrolytes and replete as needed, AHA diet as tolerated 9. Ppx - Heparin TID for DVT prophylaxis 10. Code - Full code per discussion with patient 11. Dispo - Obervation, med-surge Resuscitation Status Full VTE Prophylaxis Will order VTE Prophylaxis: Yes
[2018-02-11] MEDS ORDERED: IV FLUIDS COMPLETED PRN (21:30)
[2018-02-11] MEDS: FLUTICASONE/SALMETEROL (ADVAIR) 500/50 INH 14 PUFF INH SCH (21:53)
[2018-02-11] MEDS: hydrOXYzine HCL 10 MG TAB PO SCH (21:53)
[2018-02-11] MEDS: PRAMIPEXOLE DIHYDROCHLORIDE 0.25MG TAB PO SCH (21:53)
[2018-02-11] MEDS: FUROSEMIDE 40 MG TAB PO SCH (21:54)
[2018-02-11] MEDS: EZETIMIBE 10MG TAB PO SCH (21:54)
[2018-02-11] MEDS: HEPARIN SOD 5000 UNIT/0.5 ML CARP SQ SCH (21:55)
[2018-02-11] MEDS: ATORVASTATIN 40 MG TAB PO SCH (21:55)
[2018-02-11 23:09] VITALS: PULSE 63; O2SAT 98
[2018-02-11 23:39] VITALS: BP 115/68; PULSE 87; TEMP 36.4; O2SAT 98
[2018-02-11] MEDS: METHYLPREDNISOLONE IV 40 MG in SYRINGE 0 ML IV SCH (23:50)
[2018-02-12] VITALS (12 sets, daily range): BP systolic 96–146; BP diastolic 64–70; PULSE 86–109; TEMP 36.5; O2SAT 92–98
[2018-02-12] MEDS: ALBUT/IPRATROP 3MG/0.5MG NEB 3 ML VIAL INH SCH ×6 (03:48→23:25)
[2018-02-12] MEDS: HEPARIN SOD 5000 UNIT/0.5 ML CARP SQ SCH ×3 (06:00→21:16)
[2018-02-12 06:29] LABS: HEMATOCRIT 39.9 % (37-47); HEMOGLOBIN 12.9 g/dL (12.0-16.0); IG# 0.02 K/uL (0.00-0.02); LYMPH % 8.2 %; LYMPH ABS # 0.58 K/uL (1.2-3.4); MEAN CELL VOLUME 89.1 fL (80-100); MEAN CORPUSCULAR HEMOGLOBIN 28.8 pg (25-34); MEAN CORPUSCULAR HGB CONC 32.3 g/dl (32-36); MEAN PLATELET VOLUME 9.5 fL (7.4-10.4); MONO ABS # 0.07 K/uL (0.11-0.59); NEUT % 90.5 %; NEUT ABS # 6.42 K/uL (1.4-6.5); PLATELET COUNT 163 K/uL (130-400); RED CELL DISTRIBUTION WIDTH CV 17.3 % (11.5-14.5); WHITE BLOOD COUNT 7.09 K/uL (4.8-10.8)
[2018-02-12 07:09] LABS: CALCIUM 8.7 mg/dl (8.5-10.1); CREATININE 1.34 mg/dl (0.60-1.20); POTASSIUM 4.2 mmol/L (3.5-5.1)
[2018-02-12] MEDS: METHYLPREDNISOLONE IV 40 MG in SYRINGE 0 ML IV SCH ×2 (09:21→16:50)
[2018-02-12] MEDS: CARVEDILOL 12.5 MG TAB PO SCH ×2 (09:22→16:51)
[2018-02-12] MEDS: LISINOPRIL 5 MG TAB PO SCH (09:23)
[2018-02-12] MEDS: SERTRALINE HCL 50 MG TAB PO SCH (09:23)
[2018-02-12] MEDS: CLOPIDOGREL BISULFATE 75 MG TAB PO SCH (09:23)
[2018-02-12] MEDS: ASPIRIN 81 MG ECTAB PO SCH (09:23)
[2018-02-12] MEDS: FUROSEMIDE 40 MG TAB PO SCH ×2 (09:23→16:50)
[2018-02-12] MEDS: POTASSIUM CHLORIDE 20 MEQ TABCR PO SCH (09:24)
[2018-02-12] MEDS: FLUTICASONE/SALMETEROL (ADVAIR) 500/50 INH 14 PUFF INH SCH ×2 (09:24→21:27)
--- NOTE | 2018-02-12 12:54 | Hospitalist Progress Note ---
Hospitalist Progress Note Date of Service February 12, 2018. (Lucie Ruby ., EGNESIS) Subjective Pt evaluation today including: conversation w/ patient, physical exam, chart review, lab review, review of inpatient medication list Voiding: no voiding problems Ms. Jameson is still very short of breath though she does feel she is improving. She has a moist cough. ROS Constitutional: no chills, aches, sweats or fever Respiratory: see HPI Cardiac: no chest pain, palpitations, edema, orthopnea or lightheadedness GI: no abdominal pain, nausea, vomiting, diarrhea or constipation : no dysuria or hesitancy Extremities: no joint pain or weakness Skin: no rash All other systems reviewed and negative (Lucie Ruby CRNP) Medications Medications Administered Medications (Trade) Dose Ordered Sig/Osmani Route Start Time Stop Time Status Last Admin Dose Admin Albuterol/ Ipratropium (Duoneb) 12 ml ONE ONCE INH 02/11/18 15:30 02/11/18 15:31 DC 02/11/18 15:30 12 ML Azithromycin (Zithromax Tab) 500 mg NOW STAT PO 02/11/18 15:20 02/11/18 15:23 DC 02/11/18 15:33 500 MG Methylprednisolone Sodium Succinate (Solu-Medrol IV) 125 mg NOW STAT IV 02/11/18 15:20 02/11/18 15:23 DC 02/11/18 15:33 125 MG Magnesium Sulfate 100 ml @ 100 mls/hr NOW STAT IV 02/11/18 15:20 02/11/18 16:19 DC 02/11/18 15:33 100 MLS/HR Albuterol/ Ipratropium (Duoneb) 12 ml ONE STAT INH 02/11/18 18:01 02/11/18 18:02 DC 02/11/18 18:15 12 ML Aspirin (Ecotrin Tab) 81 mg DAILY PO 02/12/18 09:00 03/14/18 08:59 02/12/18 09:23 81 MG Atorvastatin Calcium (Lipitor Tab) 80 mg HS PO 02/11/18 21:00 03/13/18 20:59 02/11/18 21:55 80 MG Carvedilol (Coreg Tab) 18.75 mg BIDM PO 02/12/18 08:00 03/14/18 07:59 02/12/18 09:22 18.75 MG Clopidogrel Bisulfate (plAVix TAB) 75 mg DAILY PO 02/12/18 09:00 03/14/18 08:59 02/12/18 09:23 75 MG EZETIMIBE (Zetia Tab) 10 mg HS PO 02/11/18 21:00 03/13/18 20:59 02/11/18 21:54 10 MG Salmeterol Xinafoate/ Fluticasone (Advair Diskus 500/50 Inh) 1 puff BID INH 02/11/18 21:00 03/13/18 20:59 02/12/18 09:24 1 PUFF Furosemide (Lasix Tab) 40 mg BID17 PO 02/11/18 21:00 03/13/18 20:59 02/12/18 09:23 40 MG Hydroxyzine HCl (Vistaril Tab) 10 mg HS PO 02/11/18 21:00 03/13/18 20:59 02/11/18 21:53 10 MG Lisinopril (Zestril Tab) 5 mg QAM PO 02/12/18 09:00 03/14/18 08:59 02/12/18 09:23 5 MG Potassium Chloride (Klor-Con Tab) 20 meq DAILY PO 02/12/18 09:00 03/14/18 08:59 02/12/18 09:24 20 MEQ Pramipexole Dihydrochloride (miraPEX TAB) 0.25 mg HS PO 02/11/18 21:00 03/13/18 20:59 02/11/18 21:53 0.25 MG Sertraline HCl (Zoloft Tab) 50 mg DAILY PO 02/12/18 09:00 03/14/18 08:59 02/12/18 09:23 50 MG Albuterol/ Ipratropium (Duoneb) 3 ml Q4R INH 02/11/18 20:00 03/13/18 19:59 02/12/18 11:05 3 ML Methylprednisolone Sodium Succinate 40 mg/Syringe 0.64 ml @ 1.5 mls/min Q8H IV 02/12/18 00:00 03/14/18 00:00 02/12/18 09:21 1.5 MLS/MIN Acetaminophen (Tylenol Tab) 650 mg STK-MED ONCE .ROUTE 02/11/18 20:14 02/11/18 20:15 DC 02/11/18 20:14 650 MG (Lucie Ruby CRNP) Objective Vital Signs Date Time Temp Pulse Resp B/P (MAP) Pulse Ox O2 Delivery O2 Flow Rate FiO2 02/12/18 11:06 98 20 98 Nasal Cannula 3.0 02/12/18 08:01 97 Nasal Cannula 3.0 02/12/18 07:30 36.5 94 18 146/68 (94) 97 Nasal Cannula 3.0 02/12/18 07:06 98 20 96 Nasal Cannula 3.0 02/12/18 03:48 92 20 96 Nasal Cannula 3.0 02/12/18 00:00 Nasal Cannula 3.0 02/11/18 23:39 36.4 87 16 115/68 (84) 98 Nasal Cannula 3.0 02/11/18 23:09 63 20 98 Nasal Cannula 3.0 02/11/18 20:11 88 18 142/63 97 Nasal Cannula 3.0 02/11/18 20:02 2.0 02/11/18 19:38 84 02/11/18 18:21 80 22 137/51 99 Mask 5.0 Nebulizer 02/11/18 18:18 81 22 97 Nasal Cannula 2.0 02/11/18 17:26 80 26 137/55 95 Nasal Cannula 3.0 02/11/18 16:46 79 24 97 Nasal Cannula 1.5 02/11/18 16:32 76 24 135/56 100 Nebulizer 02/11/18 15:42 Nasal Cannula 3.0 02/11/18 15:39 Nasal Cannula 3.0 02/11/18 15:39 95 Nasal Cannula 3.0 02/11/18 15:31 83 02/11/18 15:09 36.6 77 24 126/55 95 Room Air (Lucie Ruby CRNP) Physical Exam Notes: General: no distress Eyes: normal inspection, PERLL Respiratory: chest non tender, expiratory wheezes throughout lung english, no respiratory distress, no accessory muscle use Cardiac: regular rate and rhythm, no rub or gallop, no murmur, no edema, no jvd GI/: active bowel sounds, no abd pain or tenderness, soft, non distended Extremities: normal range of motion, normal strength, non tender Neuro/Psych: alert and oriented x 3, normal mood and affect Skin: normal color, dry (Lucie Ruby, GENESIS) Laboratory Results Last 24 Hours Test 02/11/18 15:25 02/11/18 16:21 02/11/18 22:04 02/11/18 22:45 White Blood Count 7.67 K/uL Red Blood Count 4.79 M/uL Hemoglobin 13.9 g/dL Hematocrit 43.2 % Mean Corpuscular Volume 90.2 fL Mean Corpuscular Hemoglobin 29.0 pg Mean Corpuscular Hemoglobin Concent 32.2 g/dl Platelet Count 187 K/uL Mean Platelet Volume 9.2 fL Neutrophils (%) (Auto) 66.9 % Lymphocytes (%) (Auto) 21.0 % Monocytes (%) (Auto) 10.7 % Eosinophils (%) (Auto) 0.9 % Basophils (%) (Auto) 0.1 % Neutrophils # (Auto) 5.13 K/uL Lymphocytes # (Auto) 1.61 K/uL Monocytes # (Auto) 0.82 K/uL Eosinophils # (Auto) 0.07 K/uL Basophils # (Auto) 0.01 K/uL RDW Standard Deviation 57.5 fL RDW Coefficient of Variation 17.7 % Immature Granulocyte % (Auto) 0.4 % Immature Granulocyte # (Auto) 0.03 K/uL Sodium Level 141 mmol/L Potassium Level 3.5 mmol/L Chloride Level 103 mmol/L Carbon Dioxide Level 33 mmol/L Anion Gap 6.0 mmol/L Blood Urea Nitrogen 53 mg/dl Creatinine 1.34 mg/dl Est Creatinine Clear Calc Drug Dose 30.3 ml/min Estimated GFR () 45.4 Estimated GFR (Non- 39.2 BUN/Creatinine Ratio 39.5 Random Glucose 103 mg/dl Calcium Level 8.8 mg/dl Total Bilirubin 0.7 mg/dl Aspartate Amino Transf (AST/SGOT) 27 U/L Alanine Aminotransferase (ALT/SGPT) 43 U/L Alkaline Phosphatase 75 U/L Troponin I 0.083 ng/ml 0.054 ng/ml Pro-B-Type Natriuretic Peptide 4246 pg/ml Total Protein 7.5 gm/dl Albumin 3.7 gm/dl Globulin 3.8 gm/dl Albumin/Globulin Ratio 1.0 Prothrombin Time 10.4 SECONDS Prothromb Time International Ratio 1.0 Activated Partial Thromboplast Time 23.3 SECONDS Partial Thromboplastin Ratio 0.9 Urine Color YELLOW Urine Appearance CLEAR Urine pH 5.0 Urine Specific Malone 1.017 Urine Protein NEG Urine Glucose (UA) NEG Urine Ketones NEG Urine Occult Blood NEG Urine Nitrite NEG Urine Bilirubin NEG Urine Urobilinogen NEG Urine Leukocyte Esterase NEG Test 02/12/18 06:12 White Blood Count 7.09 K/uL Red Blood Count 4.48 M/uL Hemoglobin 12.9 g/dL Hematocrit 39.9 % Mean Corpuscular Volume 89.1 fL Mean Corpuscular Hemoglobin 28.8 pg Mean Corpuscular Hemoglobin Concent 32.3 g/dl Platelet Count 163 K/uL Mean Platelet Volume 9.5 fL Neutrophils (%) (Auto) 90.5 % Lymphocytes (%) (Auto) 8.2 % Monocytes (%) (Auto) 1.0 % Eosinophils (%) (Auto) 0.0 % Basophils (%) (Auto) 0.0 % Neutrophils # (Auto) 6.42 K/uL Lymphocytes # (Auto) 0.58 K/uL Monocytes # (Auto) 0.07 K/uL Eosinophils # (Auto) 0.00 K/uL Basophils # (Auto) 0.00 K/uL RDW Standard Deviation 56.0 fL RDW Coefficient of Variation 17.3 % Immature Granulocyte % (Auto) 0.3 % Immature Granulocyte # (Auto) 0.02 K/uL Sodium Level 142 mmol/L Potassium Level 4.2 mmol/L Chloride Level 105 mmol/L Carbon Dioxide Level 31 mmol/L Anion Gap 6.0 mmol/L Blood Urea Nitrogen 53 mg/dl Creatinine 1.34 mg/dl Est Creatinine Clear Calc Drug Dose 30.8 ml/min Estimated GFR () 45.4 Estimated GFR (Non- 39.2 BUN/Creatinine Ratio 39.2 Random Glucose 156 mg/dl Calcium Level 8.7 mg/dl Troponin I 0.038 ng/ml (Lucie Ruby, GENESIS) Assessment and Plan 72yo C female with multiple medical comorbidities presenting with progressive CHOWDHURY/SOB x 3-4 days as well as episode of chest heaviness. Patient with known history of COPD, end-stage, O2 dependent with frequent hospital visits for exacerbations. COPD exacerbation - -continue DuoNeb q 4 hours scheduled -continue Albuterol q 4 hours PRN -Continue Azithromycin 250mg IV daily -Continue Solumedrol 40mg IV q 8 hours -Continue Advair - patient had tried a trial of Anoro Ellipta outpatient but is continuing Advair until her 3 month supply runs out CAD s/p [place] - patient with episode of chest heaviness on day of admission, no further chest pain today. Chronic elevation of troponin. No acute evidence of ischemia on EKG. Patient denies ICD events/firing. -Troponins peaked at .083 and trended down -Continue home cardiac medications to include ASA 81mg, Lipitor 80mg, Plavix 75mg, Coreg 18.75mg BID and Lisinopril 5mg CHF - dilated ischemic cardiomyopathy with depressed EF of 25 - 30% per echocardiogram 02/2017. -Continue home Lasix 40mg po BID -Continue daily K supplementation -Monitor electrolytes daily -Continue Carvedilol and Lisinopril, ASA/Plavix/Lipitor and Zetia - does not appear to be in acute failure CKD - - baseline creat appx 1, 1.34 again today - hold lisinopril tomorrow -Continue to monitor daily labs -Encourage PO intake -Renal dosing where appropriate for CrCl of 30.3 -Avoid nephrotoxic medications Diabetes - diet controlled, AIC 6.2 in October 2017 - bsg ac & hs - will add sliding scale while patient is taking Solu-medrol Hyperlipidemia - continue Zetia and Lipitor at home dosage History of CVA - stable -Continue ASA and Statin Ppx - Heparin TID for DVT prophylaxis Full code (Lucie Ruby, GENESIS) Reviewed: Pt Seen/Exam by Me (Violette Barahona MD) 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 Discussed with GENESIS Ruby and agree with findings and plan as documented in the note. Any exceptions or clarifications are listed here: Pt feeling a little better since admission, less SOB. No further chest pain. The chest pain is really what made her come to the ER. It felt like a tightness and she thought maybe she was filling up with fluid in her lungs from her CHF. Vitals reviewed NAD RRR no mgr Lungs w/ diminished BS throughout, diffuse rhonchi and wheezes Ext no edema The patient is a 72-year-old white female with a complex past medical history significant for CAD/inferior [place] 1999, hypertension, dyslipidemia, type 2 diabetes mellitus, COPD and chronic hypoxic respiratory failure, prior tobacco abuse (75 pack year history, quit 2016), chronic combined systolic/diastolic CHF and ischemic cardiomyopathy (EF 25-30%), S/P Medtronic ICD/BiV pacemaker implantation 02/21/12 with elective generator replacement 02/21/2017, severe mitral regurgitation, peripheral arterial disease (S/P right iliofemoral endarterectomy and popliteal/SFA angioplasties 05/04/13, mesenteric arterial occlusive disease S/P superior mesenteric stent placement 05/03/2017, carotid disease status post left CEA 1990), hyponatremia, and right MCA territory ischemic stroke with hemorrhagic conversion versus traumatic right subarachnoid hemorrhage in May 2017 with residual LUE weakness. She presents here with acute on chronic hypoxic respiratory failure, and acute exacerbation of COPD. Also with chest pain and elevated troponin Acute on Chronic Hypercarbic/Hypoxic Respiratory Failure/COPD Exacerbation- slightly improved. Has had multiple hospitalizations (11 in the last year) for similar presentation -continue treatments as above -continue O2 -NEEDS HOME HEALTH to help prevent readmissions Chest pain/Demand ischemia/CAD--> could be unstable angina, no significant evidence of acute CHF. Trops have trended downward -will consult Cardiology to see about need for any further ischemic evaluation -continue ASA 81 mg daily, Plavix 75 mg daily, Zetia 10 mg daily, and Atorvastatin 80 mg daily Chronic combined systolic/diastolic CHF and ischemic cardiomyopathy (EF 25-30%) , S/P Medtronic ICD/BiV pacemaker implantation 02/21/12 with elective generator replacement 02/21/2017- doubt acute CHF here -continue home meds -watch for volume overload -continue home lasix, Coreg, ACEI Mitral valve regurgitation --Consideration should be made for repair of her mitral valve at some point, although with her reduced EF, this might not be beneficial Permanent Atrial Fibrillation with Pacer-not on anticoagulation due to history of SAH, rate controlled - continue Coreg for rate control HTN/HL: Controlled - continue home meds PAD/Mesenteric ischemia-stable -continue home meds CKD Stage III: - 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
[2018-02-12] MEDS ORDERED: DEXTROSE 50% 50 ML SYR IV PRN (13:45)
[2018-02-12] MEDS ORDERED: GLUCOSE 10 TABS/TUBE PO PRN (13:45)
[2018-02-12] MEDS ORDERED: GLUCOSE 40% GEL 15 GM TUBE PO PRN (13:45)
[2018-02-12] MEDS ORDERED: CARBOHYDRATES FOR HYPOGLYCEMIA PO PRN (13:45)
[2018-02-12] MEDS ORDERED: GLUCAGON FOR INJ 1 MG VIAL IM PRN (13:45)
[2018-02-12] MEDS ORDERED: AZITHROMYCIN IV 250 MG in DEXTROSE 5% 250ML 250 ML IV SCH (16:00)
[2018-02-12] MEDS: INSULIN ASPART 100 UNITS/ML 3 ML PEN SC SCH ×2 (18:31→21:31)
[2018-02-12] MEDS: EZETIMIBE 10MG TAB PO SCH (21:27)
[2018-02-12] MEDS: ATORVASTATIN 40 MG TAB PO SCH (21:28)
[2018-02-12] MEDS: PRAMIPEXOLE DIHYDROCHLORIDE 0.25MG TAB PO SCH (21:29)
[2018-02-12] MEDS: hydrOXYzine HCL 10 MG TAB PO SCH (21:29)
[2018-02-13] VITALS (12 sets, daily range): BP systolic 108–138; BP diastolic 46–75; PULSE 53–98; TEMP 36.4–36.9; O2SAT 92–98
[2018-02-13] MEDS: METHYLPREDNISOLONE IV 40 MG in SYRINGE 0 ML IV SCH ×3 (00:31→17:29)
[2018-02-13] MEDS: ALBUT/IPRATROP 3MG/0.5MG NEB 3 ML VIAL INH SCH ×6 (04:17→23:16)
[2018-02-13] MEDS: HEPARIN SOD 5000 UNIT/0.5 ML CARP SQ SCH ×3 (05:05→21:14)
[2018-02-13 05:55] LABS: CALCIUM 8.6 mg/dl (8.5-10.1); CREATININE 1.29 mg/dl (0.60-1.20); POTASSIUM 4.4 mmol/L (3.5-5.1)
[2018-02-13 06:50] LABS: HEMOGLOBIN A1C 6.6 % (4.5-5.6)
[2018-02-13] MEDS: CARVEDILOL 12.5 MG TAB PO SCH ×2 (08:24→17:30)
[2018-02-13] MEDS: SERTRALINE HCL 50 MG TAB PO SCH (08:24)
[2018-02-13] MEDS: FLUTICASONE/SALMETEROL (ADVAIR) 500/50 INH 14 PUFF INH SCH ×2 (08:24→20:00)
[2018-02-13] MEDS: CLOPIDOGREL BISULFATE 75 MG TAB PO SCH (08:25)
[2018-02-13] MEDS: LISINOPRIL 5 MG TAB PO SCH (08:25)
[2018-02-13] MEDS: ASPIRIN 81 MG ECTAB PO SCH (08:25)
[2018-02-13] MEDS: FUROSEMIDE 40 MG TAB PO SCH ×2 (08:25→17:30)
[2018-02-13] MEDS: POTASSIUM CHLORIDE 20 MEQ TABCR PO SCH (08:26)
[2018-02-13] MEDS: INSULIN ASPART 100 UNITS/ML 3 ML PEN SC SCH ×4 (08:27→21:13)
[2018-02-13 10:51] LABS: INFLUENZA A PCR Neg for Influ A (NEG); INFLUENZA B PCR Neg for Influ B (NEG)
--- NOTE | 2018-02-13 11:08 | Hospitalist Progress Note ---
Hospitalist Progress Note Date of Service February 13, 2018. (Lucie Ruby ., GENESIS) Subjective Pt evaluation today including: conversation w/ patient, physical exam, chart review, lab review, conversation w/ recruitment consultant (Dr. Flynn from cardiology), review of inpatient medication list Voiding: no voiding problems Ms. Jameson feels about the same as yesterday, still with some sob and productive cough. No further chest pain. Eating and drinking ok. Feels fatigued. ROS Constitutional: no chills, aches, sweats or fever Respiratory: see HPI Cardiac: no chest pain, palpitations, edema, orthopnea or lightheadedness GI: no abdominal pain, nausea, vomiting, diarrhea or constipation : no dysuria or hesitancy Extremities: no joint pain or weakness Skin: no rash All other systems reviewed and negative (Lucie Ruby CRNP) Medications Medications Administered Medications (Trade) Dose Ordered Sig/Osmani Route Start Time Stop Time Status Last Admin Dose Admin Albuterol/ Ipratropium (Duoneb) 12 ml ONE ONCE INH 02/11/18 15:30 02/11/18 15:31 DC 02/11/18 15:30 12 ML Azithromycin (Zithromax Tab) 500 mg NOW STAT PO 02/11/18 15:20 02/11/18 15:23 DC 02/11/18 15:33 500 MG Methylprednisolone Sodium Succinate (Solu-Medrol IV) 125 mg NOW STAT IV 02/11/18 15:20 02/11/18 15:23 DC 02/11/18 15:33 125 MG Magnesium Sulfate 100 ml @ 100 mls/hr NOW STAT IV 02/11/18 15:20 02/11/18 16:19 DC 02/11/18 15:33 100 MLS/HR Albuterol/ Ipratropium (Duoneb) 12 ml ONE STAT INH 02/11/18 18:01 02/11/18 18:02 DC 02/11/18 18:15 12 ML Aspirin (Ecotrin Tab) 81 mg DAILY PO 02/12/18 09:00 03/14/18 08:59 02/13/18 08:25 81 MG Atorvastatin Calcium (Lipitor Tab) 80 mg HS PO 02/11/18 21:00 03/13/18 20:59 02/12/18 21:28 80 MG Carvedilol (Coreg Tab) 18.75 mg BIDM PO 02/12/18 08:00 03/14/18 07:59 02/13/18 08:24 18.75 MG Clopidogrel Bisulfate (plAVix TAB) 75 mg DAILY PO 02/12/18 09:00 03/14/18 08:59 02/13/18 08:25 75 MG EZETIMIBE (Zetia Tab) 10 mg HS PO 02/11/18 21:00 03/13/18 20:59 02/12/18 21:27 10 MG Salmeterol Xinafoate/ Fluticasone (Advair Diskus 500/50 Inh) 1 puff BID INH 02/11/18 21:00 03/13/18 20:59 02/13/18 08:24 1 PUFF Furosemide (Lasix Tab) 40 mg BID17 PO 02/11/18 21:00 03/13/18 20:59 02/13/18 08:25 40 MG Hydroxyzine HCl (Vistaril Tab) 10 mg HS PO 02/11/18 21:00 03/13/18 20:59 02/12/18 21:29 10 MG Lisinopril (Zestril Tab) 5 mg QAM PO 02/12/18 09:00 03/14/18 08:59 Future hold 02/13/18 08:25 5 MG Potassium Chloride (Klor-Con Tab) 20 meq DAILY PO 02/12/18 09:00 03/14/18 08:59 02/13/18 08:26 20 MEQ Pramipexole Dihydrochloride (miraPEX TAB) 0.25 mg HS PO 02/11/18 21:00 03/13/18 20:59 02/12/18 21:29 0.25 MG Sertraline HCl (Zoloft Tab) 50 mg DAILY PO 02/12/18 09:00 03/14/18 08:59 02/13/18 08:24 50 MG Albuterol/ Ipratropium (Duoneb) 3 ml Q4R INH 02/11/18 20:00 03/13/18 19:59 02/13/18 07:20 3 ML Azithromycin 250 mg/Dextrose 252.5 ml @ 125 mls/hr DAILY@1600 IV 02/12/18 16:00 02/15/18 08:59 02/12/18 16:49 125 MLS/HR Methylprednisolone Sodium Succinate 40 mg/Syringe 0.64 ml @ 1.5 mls/min Q8H IV 02/12/18 00:00 03/14/18 00:00 02/13/18 08:25 1.5 MLS/MIN Acetaminophen (Tylenol Tab) 650 mg STK-MED ONCE .ROUTE 02/11/18 20:14 02/11/18 20:15 DC 02/11/18 20:14 650 MG Insulin Aspart (novoLOG ASPART) SLIDING SCALE If C... ACHS SC 02/12/18 16:30 03/14/18 16:29 02/13/18 08:27 1 UNITS (Lucie Ruby CRNP) Objective Vital Signs Date Time Temp Pulse Resp B/P (MAP) Pulse Ox O2 Delivery O2 Flow Rate FiO2 02/13/18 08:00 Nasal Cannula 3.0 02/13/18 07:40 36.4 90 24 138/74 (95) 94 3.0 02/13/18 07:21 98 20 97 Nasal Cannula 3.0 02/13/18 04:17 85 20 93 Nasal Cannula 3.0 02/13/18 04:00 36.5 53 16 136/75 (95) 97 Room Air 02/13/18 00:00 Nasal Cannula 3.0 02/12/18 23:25 89 20 92 Nasal Cannula 3.0 02/12/18 22:24 36.5 86 16 131/70 (90) 97 Nasal Cannula 3.0 02/12/18 20:30 36.5 88 18 96/64 (75) 97 Nasal Cannula 3.0 02/12/18 19:20 88 20 93 Nasal Cannula 3.0 02/12/18 16:54 109 119/64 (82) 02/12/18 16:00 97 Nasal Cannula 3.0 02/12/18 15:03 107 20 93 Nasal Cannula 3.0 02/12/18 11:06 98 20 98 Nasal Cannula 3.0 (Lucie Ruby CRNP) Physical Exam Notes: General: no distress Eyes: normal inspection, PERLL Respiratory: chest non tender, expiratory wheezes throughout lung english, no respiratory distress, no accessory muscle use Cardiac: regular rate and rhythm, no rub or gallop, no murmur, no edema, no jvd GI/: active bowel sounds, no abd pain or tenderness, soft, non distended Extremities: normal range of motion, normal strength, non tender Neuro/Psych: alert and oriented x 3, normal mood and affect Skin: normal color, dry (Lucie Ruby CRNP) Laboratory Results Last 24 Hours Test 02/12/18 14:01 02/12/18 17:50 02/12/18 19:36 02/13/18 04:56 Troponin I 0.035 ng/ml Bedside Glucose 245 mg/dl 253 mg/dl Sodium Level 142 mmol/L Potassium Level 4.4 mmol/L Chloride Level 107 mmol/L Carbon Dioxide Level 30 mmol/L Anion Gap 5.0 mmol/L Blood Urea Nitrogen 54 mg/dl Creatinine 1.29 mg/dl Est Creatinine Clear Calc Drug Dose 31.9 ml/min Estimated GFR () 47.6 Estimated GFR (Non- 41.0 BUN/Creatinine Ratio 41.9 Random Glucose 154 mg/dl Estimated Average Glucose 143 mg/dl Hemoglobin A1c 6.6 % Calcium Level 8.6 mg/dl Magnesium Level 2.5 mg/dl Test 02/13/18 07:35 02/13/18 09:00 02/13/18 10:03 Bedside Glucose 148 mg/dl Venous Blood pH 7.36 Venous Blood Partial Pressure CO2 56 mmHg Venous Blood Partial Pressure O2 26 mmHg Venous Blood HCO3 31 mmol/L Venous Blood Oxygen Saturation < 60.0 % Venous Blood Base Excess 4.2 mEq/L (Lucie Ruby CRNP) Assessment and Plan 72yo female with multiple medical comorbidities presenting with progressive CHOWDHURY/ SOB x 3-4 days as well as episode of chest heaviness. Patient with known history of COPD, end-stage, O2 dependent with frequent hospital visits for exacerbations. COPD exacerbation - -continue DuoNeb q 4 hours scheduled -continue Albuterol q 4 hours PRN -Continue Azithromycin 250mg IV daily -Continue Solumedrol 40mg IV q 8 hours - may be able to start titrating down tomorrow or per pulm rec -Continue Advair - patient had tried a trial of Anoro Ellipta outpatient but is continuing Advair until her 3 month supply runs out - consult pulm - they have placed procalcitonin, flu swab, mycoplasma pending CAD s/p [place], Type II NSTEMI - patient with episode of chest heaviness on day of admission, no further chest pain today. Chronic elevation of troponin. No acute evidence of ischemia on EKG. Patient denies ICD events/firing. -Troponins peaked at .083 and trended down -Continue home cardiac medications to include ASA 81mg, Lipitor 80mg, Plavix 75mg, Coreg 18.75mg BID and Lisinopril 5mg - Consulted and discussed with patient's outpatient cardiology provider, Dr. Flynn - he feels it is likely demand ischemia and feels she is too high risk to cath or stress unless faced with an emergent situation Chronic Systolic CHF - dilated ischemic cardiomyopathy with depressed EF of 25 - 30% per echocardiogram 02/2017. -Continue home Lasix 40mg po BID -Continue daily K supplementation -Monitor electrolytes daily -Continue Carvedilol and Lisinopril, ASA/Plavix/Lipitor and Zetia - does not appear to be in acute failure CKD III- - baseline creat appx 11.04 again today - hold lisinopril today -Continue to monitor daily labs -Encourage PO intake -Renal dosing where appropriate for CrCl of 31 -Avoid nephrotoxic medications Diabetes II without use of insulin - diet controlled, AIC 6.2 in October 2017 - bsg ac & hs - elevated yesterday in the 200s, will monitor today and increase insulin if necessary - continue sliding scale while patient is taking Solu-medrol Hyperlipidemia - continue Zetia and Lipitor at home dosage History of CVA - stable -Continue ASA and Statin Ppx - Heparin TID for DVT prophylaxis Full code (Lucie Ruby, GENESIS) Reviewed: Pt Seen/Exam by Me (Violette Barahona MD) 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 Discussed with GENESIS Ruby and agree with findings and plan as documented in the note. Any exceptions or clarifications are listed here: Feeling even better today. Is less short of breath. Still with chronic cough Vitals reviewed NAD RRR no mgr Lungs w/ severely diminished BS throughout, diffuse rhonchi and wheezes Ext no edema The patient is a 72-year-old white female with a complex past medical history significant for CAD/inferior [place] 1999, hypertension, dyslipidemia, type 2 diabetes mellitus, COPD and chronic hypoxic respiratory failure, prior tobacco abuse (75 pack year history, quit 2016), chronic combined systolic/diastolic CHF and ischemic cardiomyopathy (EF 25-30%), S/P Medtronic ICD/BiV pacemaker implantation 02/21/12 with elective generator replacement 02/21/2017, severe mitral regurgitation, peripheral arterial disease (S/P right iliofemoral endarterectomy and popliteal/SFA angioplasties 05/04/13, mesenteric arterial occlusive disease S/P superior mesenteric stent placement 05/03/2017, carotid disease status post left CEA 1990), hyponatremia, and right MCA territory ischemic stroke with hemorrhagic conversion versus traumatic right subarachnoid hemorrhage in May 2017 with residual LUE weakness. She presents here with acute on chronic hypoxic respiratory failure, and acute exacerbation of COPD. Also with chest pain and elevated troponin Acute on Chronic Hypercarbic/Hypoxic Respiratory Failure/COPD Exacerbation- continues to be improved. Has had multiple hospitalizations (11 in the last year ) for similar presentation -continue treatments as above -continue O2 -NEEDS HOME HEALTH to help prevent readmissions -Weaning down to p.o. prednisone Chest pain/Demand ischemia/CAD--> could be unstable angina, no significant evidence of acute CHF. Trops have trended downward - consult Cardiology to see about need for any further ischemic evaluation was appreciated-no cardiac catheterization unless it is emergent given her multiple other medical issues -Continue to medically manage with the following medications: -continue ASA 81 mg daily, Plavix 75 mg daily, Zetia 10 mg daily, and Atorvastatin 80 mg daily Chronic combined systolic/diastolic CHF and ischemic cardiomyopathy (EF 25-30%) , S/P Medtronic ICD/BiV pacemaker implantation 02/21/12 with elective generator replacement 02/21/2017- doubt acute CHF here -continue home meds -watch for volume overload -continue home lasix, Coreg, ACEI Mitral valve regurgitation --Consideration should be made for repair of her mitral valve at some point, although with her reduced EF, this might not be beneficial Permanent Atrial Fibrillation with Pacer-not on anticoagulation due to history of SAH, rate controlled - continue Coreg for rate control HTN/HL: Controlled - continue home meds PAD/Mesenteric ischemia-stable -continue home meds CKD Stage III: - 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
--- NOTE | 2018-02-13 12:48 | Pulmonary Consultation ---
History General Date of Service: February 13, 2018. Stated Complaint: Copd Exacerbation HPI The patient is a 72 year old female who presents to [facility] with complaints of Copd Exacerbation. The patient's primary care provider is RV. Edwards MD. 72-year-old female admitted with acute on chronic respiratory insufficiency. She has a PmHx: Significant for CHF (EF=35%), atrial fibrillation requiring biventricular pacing, left bundle branch block, chronic kidney disease, mild COPD with an FEV1 last tested 65%, and CVA. Patient notes 3-4 day history of increasing shortness of breath with associated chest tightness/discomfort but denies sharp chest pain radiation to the neck and/or the left arm. She had noted some palpitations over that period of time as well. During that period of time she had some mild mucus production which was clear to white nature but denies: Fever, chills, productive cough, hemoptysis, unintentional weight loss , fevers or chills. Should note the patient appreciates that her shortness of breath is increased with lying flat. Along with this though the patient is noted dramatic improvement since her CVA but continues to have some difficulty with fine motor movements of her left hand. Current in hospital workup WBC: 7 K VB.36/56 corrected to 7.40/46 Serum CO2: 30 Creatinine: 1.341.29 Troponin I: [id number] Pro-BNP: 4246 Procalcitonin: <0.05 EKG ventricularly paced rhythm rate 81 with a left bundle branch block/ biventricular pacer CXR: No signs of acute cardiopulmonary disease Influenza PCR as say for a and B: Negative Pending: Mycoplasma IgM and IgG G Previous workup Cardiac Echo (02/17/17) LV: EF= 25-30%, systolic function severely reduced, but a wall and apex are akinetic RV: Systolic function mildly reduced, size within normal limits MV: Severe regurgitation RVSP: 30-40mmHg Pulmonary function test 01/19/2009 Spirometry: FEV1 65% moderate obstructive ventilatory disease Bronchodilator: No significant response Lung volumes: RV/T% Diffusion: Moderately reduced at 42%, alveolar volume correction 59% PmHx: 1. Acute on chronic respiratory failure with hypoxemia 2. right MCA stroke 3. Anemia 4. Anxiety disorder 5. Arteriosclerosis of carotid artery 6. Atrial fibrillation, persistent 7. Left bundle-branch block 8. Biventricular ICD (implantable cardioverter-defibrillator) in place 9. CAD (coronary artery disease) 10. Cardiomyopathy, ischemic (EF=25%) 11. Chronic kidney disease 12. MILD COPD (FEV1=65%) 13. Chronic reflux esophagitis 14. Chronic nicotine dependence--per the patient discontinued smoking 3 months prior 15. Depression 16. Diabetes mellitus 17. Encephalomalacia 18. Hyperlipidemia 19. Hypertension 20. Lymphadenopathy 21. Mesenteric ischemia, chronic 22. Mitral regurgitation 23. PAD (peripheral artery disease) 24. Restless legs syndrome 25. History of Subarachnoid hemorrhage 26. Vitamin D deficiency PsHx: 1. Carotid Thromboendarterectomy 2. Cardioverter-Defibrillator/B IV 3. Neuroplasty Decompression Median Nerve At Carpal Tunnel 4. Total Abdominal Hysterectomy With Removal Of Both Ovaries 5. Hysterectomy Family History Coronary artery disease, myocardial infarction, hypertension, kidney disease, nephrolithiasis, lung disease Social History Alcohol Use Always uses seat belt Tobacco: Patient's stage REM discontinue trach a remote prior Denied: History of Drug Use Denied: History of Exercising Regularly Marital History - Currently Retired From Work Uses Safety Equipment - Seatbelts Outpatient medications 1. Acetaminophen 500 MG Oral Tablet; TAKE 1 TABLET EVERY 4 TO 6 HOURS 2. Advair Diskus 500-50 MCG/DOSE Inhalation Aerosol BID 3. Albuterol Sulfate (2.5 MG/3ML) 0.083% Inhalation Nebulization Solution; USE 1 UNIT DOSE IN NEBULIZER EVERY 4 TO 6 HOURS NEEDED Requested for: 4. Anusol-HC 2.5 % Rectal Cream; APPLY TWICE DAILY NEEDED 5. Aspirin 81 MG TABS; TAKE 1 TABLET DAILY 6. Atorvastatin Calcium 80 MG Oral Tablet; TAKE 1 TABLET AT BEDTIME Requested for: 7. Carvedilol 12.5 MG Oral Tablet; TAKE 1 1/2 tablets BY MOUTH TWICE DAILY; 8. Clopidogrel Bisulfate 75 MG Oral Tablet; take 1 tablet by mouth once daily; 9. Combivent Respimat 20-100 MCG/ACT Inhalation Aerosol Solution; INHALE 1 PUFF 4 TIMES DAILY (MAXIMUM OF 6 PUFFS IN 24 HOURS) 10. Ezetimibe 10 MG Oral Tablet; TAKE 1 TABLET AT BEDTIME Requested for: [id number]; 11. Furosemide 40 MG Oral Tablet; Take 1 table twice daily 12. GuaiFENesin AC 100-10 MG/5ML Oral Syrup; 10ml every 6 hours as needed for cough; 13. HydrOXYzine HCl - 10 MG Oral Tablet; TAKE 1 TABLET AT BEDTIME 14. Lisinopril 5 MG Oral Tablet; TAKE 1 TABLET DAILY 15. Combat Stroke Ultra 2 w/Device Kit; Pt tests 1 time daily 16. Ideal Poweruch Ultra Blue In Vitro Strip; USE ONE TEST STRIP TO CHECK BLOOD GLUCOSE ONCE EVERY DAY 17. Oxygen; 2l /NC 18. Potassium Chloride Luciana ER 20 MEQ Oral Tablet Extended Release; QD 19. Pramipexole Dihydrochloride 0.25 MG Oral Tablet; TAKE 1 TAB IN THE EVENING; 20. PredniSONE 20 MG Oral Tablet; 60 mg for 2 days, 40 mg for 6 days, 20 mg for 6 days, 10 mg for 6 days 21. Sertraline HCl - 50 MG Oral Tablet; TAKE 1 TABLET DAILY BY MOUTH DIRECTED 22. Ventolin HFA 108 (90 Base) MCG/ACT Inhalation Aerosol Solution; INHALE 1 TO 2 PUFFS EVERY 4 TO 6 HOURS NEEDED Allergies Morphine Derivatives Sulfa Drugs Historian: patient, EMS Review of Systems Constitutional: reports: weakness Eyes: reports: no symptoms ENT: reports: no symptoms Cardiovascular: reports: as stated in HPI Respiratory: reports: as stated in HPI Gastrointestinal: reports: no symptoms Genitourinary - Female: reports: no symptoms Musculoskeletal: reports: no symptoms Integumentary: reports: no symptoms Neurologic: reports: no symptoms Psychiatric: reports: anxiety Endocrine: no symptoms Hematologic / Lymphatic: no symptoms Allergic / Immunologic: no symptoms Past Medical History Past Medical History: Please refer to HPI Past Surgical History: Please refer to HPI Family History Breast cancer Diabetes mellitus FH: heart disease Hypertension Kidney disease Kidney stones Lung disease Myocardial infarction Please refer to HPI Social History Please refer to HPI Hx Tobacco Use In Past Year?: Yes Smoking Status: Former Smoker Marital status: Housing status: lives with significant other Occupational Status: retired Immunizations History of Influenza Vaccine: Yes Influenza Vaccine Date: Oct 12, 2012 History of Tetanus Vaccine?: Unknown History of Pneumococcal: Unknown History of Hepatitis B Vaccine: No History of MDRO History of MDRO: No Allergies Coded Allergies: Sulfa Antibiotics (Verified Allergy, Intermediate, RASH, 02/11/18) Morphine (Verified Adverse Reaction, Mild, GI SYMPTOMS, 02/11/18) Current Medications Reported Home Medications Medications Dose Route/Sig Max Daily Dose Days Date Category Sertraline HCl 50 Mg Tab 50 Mg PO DAILY 02/11/18 Reported Ezetimibe 10 Mg Tab 10 Mg PO HS 02/11/18 Reported Lipitor (Atorvastatin Calcium) 80 Mg Tab 80 Mg PO HS 02/11/18 Reported Carvedilol 12.5 Mg Tab 18.75 Mg PO BIDM 02/11/18 Reported Furosemide 40 Mg Tab 40 Mg PO BID 02/11/18 Reported Robitussin-Ac Syrup (Codeine Phosphate/Guaifenesin) Syrp 10 Ml PO Q6H PRN 02/11/18 Reported Klor-Con (Potassium Chloride) 20 Meq Tabcr 20 Meq PO DAILY 02/11/18 Reported Aspirin Ec (Aspirin) 81 Mg Tab 81 Mg PO DAILY 02/11/18 Reported Clopidogrel (Clopidogrel Bisulfate) 75 Mg Tab 75 Mg PO DAILY 02/11/18 Reported Tylenol (Acetaminophen) 500 Mg Tab 500 Mg PO 4-6HRS PRN 01/22/18 Reported Albuterol Sulfate (Albuterol Sulf) 2.5 Mg/3 Ml Nebu 3 Ml NEB 4-6HRS PRN 01/22/18 Reported Hydroxyzine HCl 10 Mg Tab 10 Mg PO HS 01/22/18 Reported Oxygen Gas 2 Liter NA UD 01/22/18 Reported Ventolin Hfa (Albuterol) 200 Puffs/10608 Mcg Aers 1-2 Puffs INH Q4-6HRS 01/22/18 Reported Anusol-Hc 2.5% (Hydrocortisone 2.5% (Rectal)) 2.5 % Cre 1 Appln TOP BID 11/18/17 Reported Pramipexole Dihydrochlori (Pramipexole Dihydrochloride) 0.25 Mg Tab 0.25 Mg PO HS 10/22/17 Reported Combivent Respimat (Ipratropium-Albuterol) 1 Aer Aer 1 Puff INH QID 05/31/17 Reported Lisinopril 5 Mg Tab 5 Mg PO QAM 04/13/17 Reported Advair Diskus 500/50 60 Dose (Fluticasone Prop/Salmeterol) 1 Ea Aerp 1 Puff INH BID 03/07/17 Reported Physical Physical Exam Vital Signs: Date Time Temp Pulse Resp B/P (MAP) Pulse Ox O2 Delivery O2 Flow Rate FiO2 5/10/18 11:40 88 20 95 Nasal Cannula 3.0 02/13/18 11:25 36.5 84 18 121/67 (85) 92 Nasal Cannula 3.0 02/13/18 08:00 Nasal Cannula 3.0 02/13/18 07:40 36.4 90 24 138/74 (95) 94 3.0 02/13/18 07:21 98 20 97 Nasal Cannula 3.0 02/13/18 04:17 85 20 93 Nasal Cannula 3.0 02/13/18 04:00 36.5 53 16 136/75 (95) 97 Room Air 02/13/18 00:00 Nasal Cannula 3.0 02/12/18 23:25 89 20 92 Nasal Cannula 3.0 02/12/18 22:24 36.5 86 16 131/70 (90) 97 Nasal Cannula 3.0 02/12/18 20:30 36.5 88 18 96/64 (75) 97 Nasal Cannula 3.0 02/12/18 19:20 88 20 93 Nasal Cannula 3.0 02/12/18 16:54 109 119/64 (82) 02/12/18 16:00 97 Nasal Cannula 3.0 02/12/18 15:03 107 20 93 Nasal Cannula 3.0 General Appearance: other (Anxious but in no acute respiratory distress) Head: NORMOCEPHALIC, ATRAUMATIC Eyes: PERRLA, NO DISCHARGE, EOMI, SCLERAE NORMAL ENT: NORMAL EAR EXAM, NORMAL NASAL EXAM, NORMAL MOUTH EXAM, NORMAL THROAT EXAM , NORMAL DENTAL EXAM Neck: NORMAL RANGE OF MOTION, NO TENDERNESS, TRACHEA MIDLINE, NO STRIDOR Respiratory: other (Mildly decreased breath sounds globally, ultrasound shows some minimal B lines and no signs of pleural effusions) Cardiovasular: REGULAR RATE/RHYTHM, NORMAL S1S2, systolic murmur Abdomen: NON TENDER, NORMAL BOWEL SOUNDS, NO REBOUND, NO MASSES Genitourinary - Female: EXTERNAL GENITALIA NORMAL Back: NORMAL INSPECTION, NO MIDLINE TENDERNESS, NO CVA TENDERNESS Upper Extremities: NO EDEMA, NO DEFORMITY, NORMAL ROM Lower Extremities: other (1+ to 2+ pitting edema in the dependent regions especially around the but tox) Pulses: carotid (R) (1+), carotid (L) (1+), dorsalis pedis (R) (1+), dorsalis pedis (L) (1+) Neuro: ALERT, ORIENTED x 3, NORMAL MOTOR EXAM, NORMAL SENSATION, NORMAL CEREBELLAR EXAM, other (Mildly decreased strength along the distribution of 7 cranial nerve right-sided) Reflexes: biceps (R) (2+), bicpes (L) (2+), patellar (R) (2+), patellar (L) (2+ ) Babinski Testing: right (downgoing), left (downgoing) Psychiatric: anxious Diagnostics Labs Results Past 24 Hours Test 02/12/18 14:01 02/12/18 17:50 02/12/18 19:36 02/13/18 04:56 Range/Units Troponin I 0.035 0-0.045 ng/ml Bedside Glucose 245 253 70-90 mg/dl Sodium Level 142 136-145 mmol/L Potassium Level 4.4 3.5-5.1 mmol/L Chloride Level 107 98-107 mmol/L Carbon Dioxide Level 30 21-32 mmol/L Anion Gap 5.0 3-11 mmol/L Blood Urea Nitrogen 54 7-18 mg/dl Creatinine 1.29 0.60-1.20 mg/dl Est Creatinine Clear Calc Drug Dose 31.9 ml/min Estimated GFR () 47.6 Estimated GFR (Non- 41.0 BUN/Creatinine Ratio 41.9 10-20 Random Glucose 154 70-99 mg/dl Estimated Average Glucose 143 mg/dl Hemoglobin A1c 6.6 4.5-5.6 % Calcium Level 8.6 8.5-10.1 mg/dl Magnesium Level 2.5 1.8-2.4 mg/dl Test 02/13/18 07:35 02/13/18 09:00 02/13/18 10:03 02/13/18 11:48 Range/Units Bedside Glucose 148 203 70-90 mg/dl Influenza Type A (RT-PCR) Neg for Influ A NEG Influenza Type B (RT-PCR) Neg for Influ B NEG Venous Blood pH 7.36 7.36-7.41 Venous Blood Partial Pressure CO2 56 38.0-50.0 mmHg Venous Blood Partial Pressure O2 26 mmHg Venous Blood HCO3 31 mmol/L Venous Blood Oxygen Saturation < 60.0 % Venous Blood Base Excess 4.2 mEq/L Procalcitonin < 0.05 0-0.5 ng/ml Diagnostic Radiology Please refer to HPI EKG Please refer to HPI Impression Assessment and Plan 72-year-old female admitted with acute on chronic shortness of breath: 1. Dyspnea: At this time the patient does not appear to be having an active COPD flare but it is possible she responded to current treatment with IV steroids, azithromycin and duo nebs. Along with this she continues to have chronic CHF but once again no signs of acute flare. I do not believe the patient is having an active infection as there is no signs clinically, on chest radiograph and the procalcitonin is within normal limits. With this in mind I will discontinue her azithromycin at this time will continue to clinically monitor. Also as the patient has notably improved since her admission I will drop her steroids from IV to p.o. prednisone starting 02/14/2018 to 40 mg daily. Mycoplasma IgG/IgM levels are pending and will require follow-up.
--- NOTE | 2018-02-13 13:15 | CARDIOLOGY CONSULTATION ---
DATE OF CONSULTATION: 02/13/2018 This is the continuation of a consult report. ASSESSMENT: 1. Underlying severe chronic obstructive pulmonary disease and emphysema. Current exacerbation of her underlying lung disease. 2. Approximately 20-minute episode of chest tightness at home. She describes to me that it was worsened with inspiration. Suspect that the tightness was secondary to her bronchospasm. 3. Minimally elevated troponins, elevated. 4. Electrocardiogram nondiagnostic because of ventricular paced beats. 5. Severe left ventricular systolic dysfunction. 6. Mitral and tricuspid regurgitation. 7. Her reduced left ventricular systolic function is a contraindication to mitral valve repair or replacement. The patient will also be at very high risk for any invasive procedure because of her diffuse vascular disease. 8. History of atrial fibrillation. Currently with sinus rhythm with atrial sensed ventricular paced beats. 9. Chronic kidney disease. RECOMMENDATIONS: 1. Continue her usual cardiac medications including the carvedilol, furosemide, aspirin, clopidogrel, and atorvastatin. 2. Even if her symptom at home was secondary to myocardial ischemia would not perform an invasive cardiac procedure. She is at very high risk for any invasive procedures. Would reserve an invasive cardiac procedure (i.e., cardiac catheterization, PCI) for a life-threatening episode of myocardial ischemia/infarction. 3. Maximum treatment of her underlying lung disease. Thank you for asking me to see this patient in cardiology consultation. I will be away until 02/17/2018. If any cardiology questions or problems arise with this patient, please contact the brine plant operator covering the [facility] practice.
--- NOTE | 2018-02-13 14:14 | CARDIOLOGY CONSULTATION ---
DATE OF CONSULTATION: 02/13/2018 ATTENDING PHYSICIAN: Violette Barahona MD PRIMARY PHYSICIAN: Edy Edwards MD CONSULTATION: Otto Flynn JR, MD HISTORY OF PRESENT ILLNESS: The patient is a 72-year-old white female. Past medical history is significant for longstanding history of coronary artery disease, diffuse vascular disease, severe COPD/emphysema, heart failure with reduced LV ejection fraction, ischemic cardiomyopathy, biventricular pacemaker/ICD, atrial fibrillation, GI bleeding, and subarachnoid hemorrhage. The patient has been admitted to [facility] in August 2017, October 2017, November 2017, January 2018, and this current admission. The admissions have been for worsening dyspnea. COPD exacerbation, main etiology. On her November admission, she did have a component of acute on chronic heart failure. The patient states that in the few days prior to this admission, she was developing increasing dyspnea. This is despite her using supplemental nasal cannula oxygen 24 hours a day. Flow rate 2 liters per minute. Because of her dyspnea, she increased the flow rate up to 6 liters per minute. Despite this, she continued to have worsening dyspnea. This was also associated with orthopnea. Difficulty in lying down at 30-45 degree angle. She also recently developed worsening wheezing. This persisted despite using her nebulizer at home. The cough is minimally productive of a yellowish sputum. On the evening of February 11, she had worsening dyspnea. She had an approximately 20-minute episode of chest heaviness with this. She states that the chest heaviness was worsened with deep inspiration. Because of the heaviness and worsening dyspnea, she came to the Emergency Department for evaluation. She was admitted via the Emergency Department to the medical telemetry unit. She denies any fevers or chills. Since admission, no further chest heaviness. She continues with dyspnea and orthopnea. She denies any palpitations, lightheadedness, or syncope recently. Recently, she has had no peripheral edema. Her home weights have been stable. No abdominal pain or nausea. On admission, the patient had severe dyspnea and tachypnea. She was treated with nebulizers, intravenous steroids, and supplemental oxygen. With these treatments, her symptoms slightly improved. She states that today, she still has severe dyspnea. PAST MEDICAL HISTORY: 1. Coronary artery disease. Inferior DE 1999. Cardiac catheterization at that time with 20% proximal LAD, 99% left circumflex, 40% LAD diagonal, and 40% mid RCA stenoses. Unsuccessful attempt at intervention to the left circumflex stenosis. 2. Ischemic cardiomyopathy. Echocardiogram 02/17/2017 with LV ejection fraction of 25-30%. Lateral and apical akinesis. Basal anterior and inferior moderate hypokinesis. Mildly reduced right ventricular systolic function. Biatrial dilatation. Severe mitral regurgitation and mild tricuspid regurgitation. Mildly elevated estimated right ventricular systolic pressure. [id number] aortic regurgitation. 3. Status post implantation of biventricular pacemaker/ICD 02/21/2012. Generator replacement 02/21/2017. 4. Peripheral arterial disease. Severe atherosclerotic disease of her abdominal vasculature as well as her leg vasculature. Status post right iliofemoral endarterectomy and popliteal/SFA angioplasty April 2013. History of occlusive mesenteric arterial disease. Status post superior mesenteric stent placement 05/03/2017. This was performed at the [facility]. 5. Cerebrovascular and carotid artery disease. Status post left carotid endarterectomy 1990. 6. Chronic kidney disease. 7. Severe COPD and emphysema. 8. Status post subarachnoid hemorrhage, 05/31/2017. 9. Atrial fibrillation. In the past, anticoagulation therapy was contraindicated because of her subarachnoid hemorrhage. 10. Chronic reflux esophagitis. 11. Dyslipidemia. 12. Hypertension. 13. Left bundle-branch block. 14. History of traumatic retroperitoneal hematoma. 15. Status post total abdominal hysterectomy and bilateral oophorectomy. 16. Status post carpal tunnel release surgery. FAMILY HISTORY: DE in both of her parents. Family history of diabetes mellitus and renal disease. SOCIAL HISTORY: The patient is , lives with her . Longstanding history of cigarette smoking. She stopped smoking a few months ago. She does not drink alcohol. ALLERGIES AND ADVERSE DRUG REACTIONS: SULFA DRUGS AND MORPHINE. CURRENT MEDICATIONS: NovoLog sliding scale insulin, azithromycin 250 mg IV daily, aspirin 81 mg daily, clopidogrel 75 mg daily, lisinopril 5 mg daily a.m., potassium 20 mEq every day, sertraline 50 mg every day, carvedilol 18.75 mg b.i.d., methylprednisolone 40 mg IV q. 8 hours, subQ heparin 5000 units q. 8 hours, atorvastatin 80 mg at bedtime, Zetia 10 mg at bedtime, Advair Diskus 500/50 one puff b.i.d., furosemide 40 mg p.o. b.i.d., hydroxyzine 10 mg at bedtime, Mirapex 0.25 mg at bedtime, DuoNeb 3 mL q. 4 hours, and several p.r.n. medications. REVIEW OF SYSTEMS: 1. As above. 2. Dry mouth. 3. No new neurologic symptoms. 4. No rest claudication symptoms in her legs. 5. No current urinary complaints. PHYSICAL EXAMINATION: GENERAL: The patient is lying in her bed. She is mildly dyspneic. VITAL SIGNS: Most recent vital signs, her oral temperature is 36.5, pulse 84, blood pressure 121/67, pulse oximetry on 3 liters per minute nasal cannula oxygen 92%. HEAD: Normal. NECK: Jugular venous pressure approximately 8 cm. Carotids palpable bilaterally. Normal upstroke. Right carotid bruit. LUNGS: Decreased air movement in all lung english. Slightly increased respiratory effort. Diffuse inspiratory and expiratory rhonchi and wheezing. HEART: Distant heart sounds. Regular rate and rhythm. No gallop or rub heard. 2/6 systolic murmur second right intercostal space and left lower sternal border. Radiation to axilla. ABDOMEN: Soft. Nontender. No palpable masses or organomegaly. No bruits. Normal bowel sounds. EXTREMITIES: No pretibial edema. NEUROLOGIC: Alert and oriented x3. Motor grossly intact. PSYCHIATRIC: Affect is normal. LABORATORY DATA: Electrocardiogram on February 11 with sinus rhythm. Atrial sensed and ventricular paced rhythm. Chest x-ray on admission reviewed by me. Increased heart size. No evidence of congestive heart failure. No infiltrate. Troponin I's on this admission, 0.083, 0.054, 0.038, 0.035. Labs today with sodium 142, potassium 4.4, chloride 107, carbon dioxide 30, BUN 54, creatinine 1.29, magnesium 2.5. Random glucose 154. Blood count yesterday with hemoglobin 12.9, hematocrit 32.9, WBC 7.09, platelet count 163. Venous blood gas on February 13 with pH 7.36, pCO2 of 56. ASSESSMENT: 1. Underlying severe chronic obstructive pulmonary disease and emphysema. Current exacerbation of her underlying lung disease. 2. Approximately 20-minute episode of chest tightness at home. She describes to me that it was worsened with inspiration. Suspect that the tightness was secondary to her bronchospasm. 3. Minimally elevated troponins, elevated. 4. Electrocardiogram nondiagnostic because of ventricular paced beats. 5. Severe left ventricular systolic dysfunction. 6. Mitral and tricuspid regurgitation. 7. Her reduced left ventricular systolic function is a contraindication to mitral valve repair or replacement. The patient will also be at very high risk for any invasive procedure because of her diffuse vascular disease. 8. History of atrial fibrillation. Currently with sinus rhythm with atrial sensed ventricular paced beats. 9. Chronic kidney disease. RECOMMENDATIONS: 1. Continue her usual cardiac medications including the carvedilol, furosemide, aspirin, clopidogrel, and atorvastatin. 2. Even if her symptom at home was secondary to myocardial ischemia would not perform an invasive cardiac procedure. She is at very high risk for any invasive procedures. Would reserve an invasive cardiac procedure (i.e., cardiac catheterization, PCI) for a life-threatening episode of myocardial ischemia/infarction. 3. Maximum treatment of her underlying lung disease. Thank you for asking me to see this patient in cardiology consultation. I will be away until 02/17/2018. If any cardiology questions or problems arise with this patient, please contact the tail sawyer covering the [facility] practice. VITOR
[2018-02-13] MEDS: ATORVASTATIN 40 MG TAB PO SCH (20:00)
[2018-02-13] MEDS: PRAMIPEXOLE DIHYDROCHLORIDE 0.25MG TAB PO SCH (20:01)
[2018-02-13] MEDS: EZETIMIBE 10MG TAB PO SCH (20:03)
[2018-02-13] MEDS: hydrOXYzine HCL 10 MG TAB PO SCH (20:03)
[2018-02-14] VITALS (8 sets, daily range): BP systolic 91–139; BP diastolic 54–71; PULSE 79–89; TEMP 36.3–37.3; O2SAT 95–99
[2018-02-14] MEDS: METHYLPREDNISOLONE IV 40 MG in SYRINGE 0 ML IV SCH (00:22)
[2018-02-14] MEDS: GUAIFENESIN/CODEINE 200MG/20MG 10ML UDC PO PRN ×2 (00:22→21:32)
[2018-02-14] MEDS: ALBUT/IPRATROP 3MG/0.5MG NEB 3 ML VIAL INH SCH ×6 (03:31→23:14)
[2018-02-14] MEDS: HEPARIN SOD 5000 UNIT/0.5 ML CARP SQ SCH ×3 (06:00→21:12)
[2018-02-14] MEDS: FUROSEMIDE 40 MG TAB PO SCH ×2 (08:26→17:42)
[2018-02-14] MEDS: FLUTICASONE/SALMETEROL (ADVAIR) 500/50 INH 14 PUFF INH SCH ×2 (08:26→21:12)
[2018-02-14] MEDS: LISINOPRIL 5 MG TAB PO SCH (08:26)
[2018-02-14] MEDS: SERTRALINE HCL 50 MG TAB PO SCH (08:26)
[2018-02-14] MEDS: CARVEDILOL 12.5 MG TAB PO SCH ×2 (08:27→17:00)
[2018-02-14] MEDS: POTASSIUM CHLORIDE 20 MEQ TABCR PO SCH (08:27)
[2018-02-14] MEDS: CLOPIDOGREL BISULFATE 75 MG TAB PO SCH (08:27)
[2018-02-14] MEDS: INSULIN ASPART 100 UNITS/ML 3 ML PEN SC SCH ×4 (08:33→21:16)
[2018-02-14] MEDS: ASPIRIN 81 MG ECTAB PO SCH (09:09)
[2018-02-14 09:13] LABS: CALCIUM 8.7 mg/dl (8.5-10.1); CREATININE 1.27 mg/dl (0.60-1.20); POTASSIUM 4.1 mmol/L (3.5-5.1)
--- NOTE | 2018-02-14 09:35 | Pulmonology Progress Note ---
Pulmonary Progress Note Date of Service February 14, 2018. Attending Dr. Samuel Subjective Patient was sitting up in bed looking out the window off for oxygen during the time our conversation but still noted some dyspnea especially with exertion: Objective During our conversation the patient was off oxygen and I did not noted any signs of tachypnea or accessory muscle use or other signs of respiratory insufficiency but she did note continued dyspnea especially with exertion she also noted notable anxiety about her underlying breathing difficulties: Vital signs: SaO2 ranging from 96-98% on 3 liters nasal cannula (baseline SaO2 90-91% on room air as an outpatient) Respiratory: Clear to auscultation bilaterally Cardiac: S1-S2 distant heart sounds Abdomen: Positive bowel sounds soft nontender Extremities: No clubbing cyanosis or edema noted Assessment & Plan 72-year-old female admitted with acute on chronic dyspnea: 1. Dyspnea: This time I cannot find evidence of the patient is having an active COPD and/or CHF flare. I believe we should continue on her current duo nebs as well as prednisone 40 mg daily but discontinue this after a 7 day window. 2. Pneumonia: Patient is clinically stable currently off antibiotics no signs of acute infection. Will continue to monitor patient not reinitiate antibiotics at this time. Sign off: At this time I do not believe the patient is having an active COPD flare. Prior to discharge I would perform a 2 step on this patient for home oxygen evaluation. Please re-consult the service if clinical to change warrant Data Medications: Current Inpatient Medications Medications (Trade) Dose Ordered Sig/Osmani Route Start Time Stop Time Status Last Admin Dose Admin Aspirin (Ecotrin Tab) 81 mg DAILY PO 02/12/18 09:00 03/14/18 08:59 02/14/18 09:09 81 MG Atorvastatin Calcium (Lipitor Tab) 80 mg HS PO 02/11/18 21:00 03/13/18 20:59 02/13/18 20:00 80 MG Carvedilol (Coreg Tab) 18.75 mg BIDM PO 02/12/18 08:00 03/14/18 07:59 02/14/18 08:27 18.75 MG Clopidogrel Bisulfate (plAVix TAB) 75 mg DAILY PO 02/12/18 09:00 03/14/18 08:59 02/14/18 08:27 75 MG EZETIMIBE (Zetia Tab) 10 mg HS PO 02/11/18 21:00 6/7/18 20:59 02/13/18 20:03 10 MG Salmeterol Xinafoate/ Fluticasone (Advair Diskus 500/50 Inh) 1 puff BID INH 02/11/18 21:00 03/13/18 20:59 02/14/18 08:26 1 PUFF Furosemide (Lasix Tab) 40 mg BID17 PO 02/11/18 21:00 03/13/18 20:59 02/14/18 08:26 40 MG Codeine Phosphate/ Guaifenesin (Robitussin-AC Sugar Free Syrup) 10 ml Q6H PRN PO 02/11/18 20:00 03/13/18 19:59 02/14/18 00:22 10 ML Hydrocortisone (Proctozone Hc 2.5% Crm) 1 appln BID PRN EXT 02/11/18 20:00 03/13/18 19:59 Hydroxyzine HCl (Vistaril Tab) 10 mg HS PO 02/11/18 21:00 03/13/18 20:59 02/13/18 20:03 10 MG Lisinopril (Zestril Tab) 5 mg QAM PO 02/12/18 09:00 03/14/18 08:59 Future hold 02/14/18 08:26 5 MG Potassium Chloride (Klor-Con Tab) 20 meq DAILY PO 02/12/18 09:00 03/14/18 08:59 02/14/18 08:27 20 MEQ Pramipexole Dihydrochloride (miraPEX TAB) 0.25 mg HS PO 02/11/18 21:00 03/13/18 20:59 02/13/18 20:01 0.25 MG Sertraline HCl (Zoloft Tab) 50 mg DAILY PO 02/12/18 09:00 03/14/18 08:59 02/14/18 08:26 50 MG Albuterol/ Ipratropium (Duoneb) 3 ml Q4R INH 02/11/18 20:00 03/13/18 19:59 02/14/18 07:32 3 ML Albuterol Sulfate (Ventolin 0.083% 2.5MG/3ML Neb) 2.5 mg Q4H PRN INH 02/11/18 20:00 03/13/18 19:59 Acetaminophen (Tylenol Tab) 650 mg Q4H PRN PO 02/11/18 20:00 03/13/18 19:59 02/13/18 20:11 650 MG Heparin Sodium (Porcine) (Heparin Sq 5000 Unit/0.5ml) 5,000 unit Q8H SQ 02/11/18 22:00 03/13/18 21:59 Al Hydrox/Mg Hydrox/Simethicone (Maalox Max Susp) 15 ml Q4H PRN PO 02/11/18 20:00 03/13/18 19:59 Ondansetron HCl (Zofran Inj) 4 mg Q6H PRN IV 02/11/18 20:00 03/13/18 19:59 Miscellaneous (Iv Fluids Completed) 1 ea PRN PRN N/A 02/11/18 21:30 02/11/19 21:29 Insulin Aspart (novoLOG ASPART) SLIDING SCALE If C... ACHS SC 02/12/18 16:30 03/14/18 16:29 02/14/18 08:33 1 UNITS Glucose (Glucose 40% Gel) 15-30 GRAMS 15 GRAMS... UD PRN PO 02/12/18 13:45 03/14/18 13:44 Glucose (Glucose Chew Tab) 4-8 Tablets 4 Tabl... UD PRN PO 02/12/18 13:45 03/14/18 13:44 Dextrose (Dextrose 50% 50ML Syringe) 25-50ML 25ML FOR ... UD PRN IV 02/12/18 13:45 03/14/18 13:44 Glucagon (Glucagon Inj) 1 mg UD PRN IM 02/12/18 13:45 03/14/18 13:44 Carbohydrates (Carbohydrates For Hypoglycemia) 15-30 GRAMS 15 grams if BSG 54-69... UD PRN PO 02/12/18 13:45 03/14/18 13:44 Prednisone (PredniSONE TAB) 40 mg DAILY PO 02/14/18 08:00 02/25/18 07:59 02/14/18 08:26 40 MG Vital Signs: Date Time Temp Pulse Resp B/P (MAP) Pulse Ox O2 Delivery O2 Flow Rate FiO2 02/14/18 07:37 36.3 85 18 139/71 (93) 98 Nasal Cannula 3.0 02/14/18 07:34 83 20 96 Nasal Cannula 3.0 02/14/18 03:31 79 20 96 Nasal Cannula 3.0 02/14/18 00:10 Nasal Cannula 2.0 02/13/18 23:51 36.8 74 16 131/67 (88) 98 Nasal Cannula 3.0 02/13/18 23:16 73 20 98 Nasal Cannula 3.0 02/13/18 20:13 36.9 83 18 130/62 (84) 96 Nasal Cannula 2.0 02/13/18 18:43 86 18 96 Nasal Cannula 2.0 02/13/18 16:00 Nasal Cannula 3.0 02/13/18 15:32 36.9 88 16 108/46 (66) 95 3.0 02/13/18 15:10 92 20 98 Nasal Cannula 3.0 02/13/18 11:40 88 20 95 Nasal Cannula 3.0 02/13/18 11:25 36.5 84 18 121/67 (85) 92 Nasal Cannula 3.0 Laboratory Results: Last 24 Hours Test 02/13/18 10:03 02/13/18 11:48 02/13/18 16:45 02/13/18 20:28 Venous Blood pH 7.36 Venous Blood Partial Pressure CO2 56 mmHg Venous Blood Partial Pressure O2 26 mmHg Venous Blood HCO3 31 mmol/L Venous Blood Oxygen Saturation < 60.0 % Venous Blood Base Excess 4.2 mEq/L Procalcitonin < 0.05 ng/ml Bedside Glucose 203 mg/dl 188 mg/dl 235 mg/dl Test 02/14/18 07:04 02/14/18 08:11 Bedside Glucose 155 mg/dl Sodium Level 140 mmol/L Potassium Level 4.1 mmol/L Chloride Level 105 mmol/L Carbon Dioxide Level 32 mmol/L Anion Gap 4.0 mmol/L Blood Urea Nitrogen 52 mg/dl Creatinine 1.27 mg/dl Est Creatinine Clear Calc Drug Dose 32.4 ml/min Estimated GFR () 48.5 Estimated GFR (Non- 41.8 BUN/Creatinine Ratio 40.9 Random Glucose 185 mg/dl Calcium Level 8.7 mg/dl
--- NOTE | 2018-02-14 12:41 | Hospitalist Progress Note ---
Hospitalist Progress Note Date of Service February 14, 2018. (Lucie Ruby ., GENESIS) Subjective Pt evaluation today including: conversation w/ patient, physical exam, chart review, lab review, review of inpatient medication list Voiding: no voiding problems Ms. Jameson says she feels about 65% of her baseline. She continues to cough and be dyspneic especially on exertion ROS Constitutional: no chills, aches, sweats or fever Respiratory: see HPI Cardiac: no chest pain, palpitations, edema, orthopnea or lightheadedness GI: no abdominal pain, nausea, vomiting, diarrhea or constipation : no dysuria or hesitancy Extremities: no joint pain or weakness Skin: no rash All other systems reviewed and negative (Lucie Ruby CRNP) Medications Medications Administered Medications (Trade) Dose Ordered Sig/Osmani Route Start Time Stop Time Status Last Admin Dose Admin Albuterol/ Ipratropium (Duoneb) 12 ml ONE ONCE INH 02/11/18 15:30 02/11/18 15:31 DC 02/11/18 15:30 12 ML Azithromycin (Zithromax Tab) 500 mg NOW STAT PO 02/11/18 15:20 02/11/18 15:23 DC 02/11/18 15:33 500 MG Methylprednisolone Sodium Succinate (Solu-Medrol IV) 125 mg NOW STAT IV 02/11/18 15:20 02/11/18 15:23 DC 02/11/18 15:33 125 MG Magnesium Sulfate 100 ml @ 100 mls/hr NOW STAT IV 02/11/18 15:20 02/11/18 16:19 DC 02/11/18 15:33 100 MLS/HR Albuterol/ Ipratropium (Duoneb) 12 ml ONE STAT INH 02/11/18 18:01 02/11/18 18:02 DC 02/11/18 18:15 12 ML Aspirin (Ecotrin Tab) 81 mg DAILY PO 02/12/18 09:00 03/14/18 08:59 02/14/18 09:09 81 MG Atorvastatin Calcium (Lipitor Tab) 80 mg HS PO 02/11/18 21:00 03/13/18 20:59 02/13/18 20:00 80 MG Carvedilol (Coreg Tab) 18.75 mg BIDM PO 5/9/18 08:00 03/14/18 07:59 02/14/18 08:27 18.75 MG Clopidogrel Bisulfate (plAVix TAB) 75 mg DAILY PO 02/12/18 09:00 03/14/18 08:59 02/14/18 08:27 75 MG EZETIMIBE (Zetia Tab) 10 mg HS PO 02/11/18 21:00 03/13/18 20:59 02/13/18 20:03 10 MG Salmeterol Xinafoate/ Fluticasone (Advair Diskus 500/50 Inh) 1 puff BID INH 02/11/18 21:00 03/13/18 20:59 02/14/18 08:26 1 PUFF Furosemide (Lasix Tab) 40 mg BID17 PO 02/11/18 21:00 03/13/18 20:59 02/14/18 08:26 40 MG Codeine Phosphate/ Guaifenesin (Robitussin-AC Sugar Free Syrup) 10 ml Q6H PRN PO 02/11/18 20:00 03/13/18 19:59 02/14/18 00:22 10 ML Hydroxyzine HCl (Vistaril Tab) 10 mg HS PO 02/11/18 21:00 03/13/18 20:59 02/13/18 20:03 10 MG Lisinopril (Zestril Tab) 5 mg QAM PO 02/12/18 09:00 03/14/18 08:59 Future hold 02/14/18 08:26 5 MG Potassium Chloride (Klor-Con Tab) 20 meq DAILY PO 02/12/18 09:00 03/14/18 08:59 02/14/18 08:27 20 MEQ Pramipexole Dihydrochloride (miraPEX TAB) 0.25 mg HS PO 02/11/18 21:00 03/13/18 20:59 02/13/18 20:01 0.25 MG Sertraline HCl (Zoloft Tab) 50 mg DAILY PO 02/12/18 09:00 03/14/18 08:59 02/14/18 08:26 50 MG Albuterol/ Ipratropium (Duoneb) 3 ml Q4R INH 02/11/18 20:00 03/13/18 19:59 02/14/18 11:10 3 ML Azithromycin 250 mg/Dextrose 252.5 ml @ 125 mls/hr DAILY@1600 IV 02/12/18 16:00 02/13/18 13:07 DC 02/12/18 16:49 125 MLS/HR Methylprednisolone Sodium Succinate 40 mg/Syringe 0.64 ml @ 1.5 mls/min Q8H IV 02/12/18 00:00 02/14/18 07:30 DC 02/14/18 00:22 1.5 MLS/MIN Acetaminophen (Tylenol Tab) 650 mg Q4H PRN PO 02/11/18 20:00 03/13/18 19:59 02/13/18 20:11 650 MG Acetaminophen (Tylenol Tab) 650 mg STK-MED ONCE .ROUTE 02/11/18 20:14 02/11/18 20:15 DC 02/11/18 20:14 650 MG Insulin Aspart (novoLOG ASPART) SLIDING SCALE If C... ACHS SC 02/12/18 16:30 03/14/18 16:29 02/14/18 08:33 1 UNITS Prednisone (PredniSONE TAB) 40 mg DAILY PO 02/14/18 08:00 02/25/18 07:59 02/14/18 08:26 40 MG (Lucie Ruby, GENESIS) Objective Vital Signs Date Time Temp Pulse Resp B/P (MAP) Pulse Ox O2 Delivery O2 Flow Rate FiO2 02/14/18 11:12 84 20 95 Nasal Cannula 3.0 02/14/18 08:00 Nasal Cannula 2.0 02/14/18 07:37 36.3 85 18 139/71 (93) 98 Nasal Cannula 3.0 02/14/18 07:34 83 20 96 Nasal Cannula 3.0 02/14/18 03:31 79 20 96 Nasal Cannula 3.0 02/14/18 00:10 Nasal Cannula 2.0 02/13/18 23:51 36.8 74 16 131/67 (88) 98 Nasal Cannula 3.0 02/13/18 23:16 73 20 98 Nasal Cannula 3.0 02/13/18 20:13 36.9 83 18 130/62 (84) 96 Nasal Cannula 2.0 02/13/18 18:43 86 18 96 Nasal Cannula 2.0 02/13/18 16:00 Nasal Cannula 3.0 02/13/18 15:32 36.9 88 16 108/46 (66) 95 3.0 02/13/18 15:10 92 20 98 Nasal Cannula 3.0 (Lucie Ruby CRNP) Physical Exam Notes: General: no distress Eyes: normal inspection, PERLL Respiratory: chest non tender, expiratory wheezes bilaterally, no respiratory distress, no accessory muscle use Cardiac: regular rate and rhythm, no rub or gallop, no murmur, no edema, no jvd GI/: active bowel sounds, no abd pain or tenderness, soft, non distended Extremities: normal range of motion, normal strength, non tender Neuro/Psych: alert and oriented x 3, normal mood and affect Skin: normal color, dry (Lucie Ruby CRNP) Laboratory Results Last 24 Hours Test 02/13/18 16:45 02/13/18 20:28 02/14/18 07:04 02/14/18 08:11 Bedside Glucose 188 mg/dl 235 mg/dl 155 mg/dl Sodium Level 140 mmol/L Potassium Level 4.1 mmol/L Chloride Level 105 mmol/L Carbon Dioxide Level 32 mmol/L Anion Gap 4.0 mmol/L Blood Urea Nitrogen 52 mg/dl Creatinine 1.27 mg/dl Est Creatinine Clear Calc Drug Dose 32.4 ml/min Estimated GFR () 48.5 Estimated GFR (Non- 41.8 BUN/Creatinine Ratio 40.9 Random Glucose 185 mg/dl Calcium Level 8.7 mg/dl Test 02/14/18 11:34 Bedside Glucose 210 mg/dl (Lucie Ruby CRNP) Assessment and Plan 72yo female with multiple medical comorbidities presenting with progressive CHOWDHURY/ SOB x 3-4 days as well as episode of chest heaviness. Patient with known history of COPD, end-stage, O2 dependent with frequent hospital visits for exacerbations. COPD exacerbation - -continue DuoNeb q 4 hours scheduled -continue Albuterol q 4 hours PRN -Azithromycin dc'd per pulm rec -Titrated Solumedrol down to po prednisone 40 mg daily -Continue Advair - patient had tried a trial of Anoro Ellipta outpatient but is continuing Advair until her 3 month supply runs out - consult pulm - flu swab negative, procalcitonin negative, mycoplasma pending CAD s/p [place], Type II NSTEMI - patient with episode of chest heaviness on day of admission, no further chest pain today. Chronic elevation of troponin. No acute evidence of ischemia on EKG. Patient denies ICD events/firing. -Troponins peaked at .083 and trended down -Continue home cardiac medications to include ASA 81mg, Lipitor 80mg, Plavix 75mg, Coreg 18.75mg BID and Lisinopril 5mg - Consulted and discussed with patient's outpatient cardiology provider, Dr. Flynn - he feels it is likely demand ischemia and feels she is too high risk to cath or stress unless faced with an emergent situation Chronic Systolic CHF - dilated ischemic cardiomyopathy with depressed EF of 25 - 30% per echocardiogram 02/2017. -Continue home Lasix 40mg po BID -Continue daily K supplementation -Monitor electrolytes daily -Continue Carvedilol and Lisinopril, ASA/Plavix/Lipitor and Zetia - does not appear to be in acute failure CKD III- - baseline creat appx 11.02 today - restart lisinopril -Continue to monitor daily labs -Encourage PO intake -Renal dosing where appropriate for CrCl of 31 -Avoid nephrotoxic medications Diabetes II without use of insulin - diet controlled, AIC 6.2 in October 2017 - bsg ac & hs - continue sliding scale while patient is taking Solu-medrol Hyperlipidemia - continue Zetia and Lipitor at home dosage History of CVA - stable -Continue ASA and Statin Ppx - Heparin TID for DVT prophylaxis Full code (Lucie Ruby, GENESIS) Reviewed: Pt Seen/Exam by Me (Violette Barahona MD) 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 Discussed with GENESIS Ruby and agree with findings and plan as documented in the note. Any exceptions or clarifications are listed here: Feeling even better today. Is less short of breath. Still with chronic cough Vitals reviewed NAD RRR no mgr Lungs w/ severely diminished BS throughout, diffuse rhonchi and wheezes Ext no edema The patient is a 72-year-old white female with a complex past medical history significant for CAD/inferior [place] 1999, hypertension, dyslipidemia, type 2 diabetes mellitus, COPD and chronic hypoxic respiratory failure, prior tobacco abuse (75 pack year history, quit 2017), chronic combined systolic/diastolic CHF and ischemic cardiomyopathy (EF 25-30%), S/P Medtronic ICD/BiV pacemaker implantation 02/21/12 with elective generator replacement 02/21/2017, severe mitral regurgitation, peripheral arterial disease (S/P right iliofemoral endarterectomy and popliteal/SFA angioplasties 05/04/13, mesenteric arterial occlusive disease S/P superior mesenteric stent placement 05/03/2017, carotid disease status post left CEA 1990), hyponatremia, and right MCA territory ischemic stroke with hemorrhagic conversion versus traumatic right subarachnoid hemorrhage in May 2017 with residual LUE weakness. She presents here with acute on chronic hypoxic respiratory failure, and acute exacerbation of COPD. Also with chest pain and elevated troponin Acute on Chronic Hypercarbic/Hypoxic Respiratory Failure/COPD Exacerbation- continues to be improved. Has had multiple hospitalizations (11 in the last year ) for similar presentation -continue treatments as above -continue O2 -NEEDS HOME HEALTH to help prevent readmissions -Weaning down to p.o. prednisone -Exception to above is that Anoro Ellipta (LAMA/LABA) does not replace Advair -May be stable for discharge tomorrow Chest pain/Demand ischemia/CAD--> could be unstable angina, no significant evidence of acute CHF. Trops have trended downward - consult Cardiology to see about need for any further ischemic evaluation was appreciated-no cardiac catheterization unless it is emergent given her multiple other medical issues -Continue to medically manage with the following medications: -continue ASA 81 mg daily, Plavix 75 mg daily, Zetia 10 mg daily, and Atorvastatin 80 mg daily Chronic combined systolic/diastolic CHF and ischemic cardiomyopathy (EF 25-30%) , S/P Medtronic ICD/BiV pacemaker implantation 02/21/12 with elective generator replacement 02/21/2017- doubt acute CHF here -continue home meds -watch for volume overload -continue home lasix, Coreg, ACEI Mitral valve regurgitation --Consideration should be made for repair of her mitral valve at some point, although with her reduced EF, this might not be beneficial Permanent Atrial Fibrillation with Pacer-not on anticoagulation due to history of SAH, rate controlled - continue Coreg for rate control HTN/HL: Controlled - continue home meds PAD/Mesenteric ischemia-stable -continue home meds 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
[2018-02-14] MEDS: hydrOXYzine HCL 10 MG TAB PO SCH (21:12)
[2018-02-14] MEDS: PRAMIPEXOLE DIHYDROCHLORIDE 0.25MG TAB PO SCH (21:12)
[2018-02-14] MEDS: ATORVASTATIN 40 MG TAB PO SCH (21:12)
[2018-02-14] MEDS: EZETIMIBE 10MG TAB PO SCH (21:12)
[2018-02-15] VITALS (12 sets, daily range): BP systolic 112–121; BP diastolic 63–69; PULSE 72–109; TEMP 35.9–36.4; O2SAT 95–99
[2018-02-15] MEDS: ALBUT/IPRATROP 3MG/0.5MG NEB 3 ML VIAL INH SCH ×6 (03:41→23:18)
[2018-02-15] MEDS: HEPARIN SOD 5000 UNIT/0.5 ML CARP SQ SCH ×3 (05:37→20:36)
[2018-02-15] MEDS: INSULIN ASPART 100 UNITS/ML 3 ML PEN SC SCH ×4 (06:30→20:45)
[2018-02-15] MEDS: FLUTICASONE/SALMETEROL (ADVAIR) 500/50 INH 14 PUFF INH SCH ×2 (09:30→20:32)
[2018-02-15] MEDS: LISINOPRIL 5 MG TAB PO SCH (09:31)
[2018-02-15] MEDS: POTASSIUM CHLORIDE 20 MEQ TABCR PO SCH (09:31)
[2018-02-15] MEDS: CARVEDILOL 12.5 MG TAB PO SCH ×2 (09:31→17:24)
[2018-02-15] MEDS: ASPIRIN 81 MG ECTAB PO SCH (09:32)
[2018-02-15] MEDS: CLOPIDOGREL BISULFATE 75 MG TAB PO SCH (09:32)
[2018-02-15] MEDS: SERTRALINE HCL 50 MG TAB PO SCH (09:32)
[2018-02-15] MEDS: FUROSEMIDE 40 MG TAB PO SCH ×2 (09:32→17:24)
[2018-02-15] MEDS ORDERED: SODIUM CHLORIDE 0.65% NA SOLN 45 ML (OCEAN) PRN (14:45)
[2018-02-15] MEDS ORDERED: TRIAMCINOLONE ACET NASAL SPRAY 10.8ML BTL NAE ONE (15:00)
[2018-02-15] MEDS ORDERED: FEXOFENADINE HCL 60 MG TAB PO ONE (15:00)
[2018-02-15] MEDS: GUAIFENESIN 600 MG TABCR PO SCH ×2 (15:38→20:33)
[2018-02-15] MEDS: FEXOFENADINE HCL 60 MG TAB PO SCH (20:33)
[2018-02-15] MEDS: PRAMIPEXOLE DIHYDROCHLORIDE 0.25MG TAB PO SCH (20:34)
[2018-02-15] MEDS: ATORVASTATIN 40 MG TAB PO SCH (20:34)
[2018-02-15] MEDS: EZETIMIBE 10MG TAB PO SCH (20:35)
[2018-02-16 00:18] VITALS: BP 112/67; PULSE 81; TEMP 36.4; O2SAT 97
[2018-02-16 03:38] VITALS: PULSE 76; O2SAT 95
[2018-02-16] MEDS: ALBUT/IPRATROP 3MG/0.5MG NEB 3 ML VIAL INH SCH ×2 (03:38→06:57)
[2018-02-16] MEDS: HEPARIN SOD 5000 UNIT/0.5 ML CARP SQ SCH (06:00)
[2018-02-16] MEDS: INSULIN ASPART 100 UNITS/ML 3 ML PEN SC SCH (06:30)
[2018-02-16 06:57] VITALS: PULSE 80; O2SAT 98
[2018-02-16 07:10] VITALS: BP 141/79; PULSE 77; TEMP 36.8; O2SAT 96
--- NOTE | 2018-02-16 07:34 | Progress Note ---
Subjective Date of Service: February 15, 2018. Subjective Pt evaluation today including: conversation w/ patient, physical exam, chart review, lab review, review of studies (cxr) Pain: none PO Intake: eating decently Voiding: no voiding problems main complaint is that of post-nasal drip and feeling sweaty on her face/neck blowing rhinorrhea from nose +nasal congestion no sinus pain continues with cough +yanez - better in comparison to admission Problem List Medical Problems: (1) Acute asthma exacerbation Status: Acute (2) Acute bronchitis Status: Acute (3) Acute exacerbation of CHF (congestive heart failure) Status: Acute (4) Acute [place] Status: Acute (5) Anemia Status: Acute (6) CHF (congestive heart failure) Status: Acute (7) CHF (congestive heart failure) Status: Acute (8) CHF (congestive heart failure) Status: Acute (9) COPD (chronic obstructive pulmonary disease) Status: Acute (10) Elevated troponin Status: Acute (11) Facial contusion Status: Acute (12) Febrile illness, acute Status: Acute (13) Hyponatremia Status: Acute (14) Hypoxia Status: Acute (15) Influenza Status: Acute (16) Intracranial bleeding Status: Acute (17) Intractable nausea and vomiting Status: Acute (18) Mesenteric ischemia Status: Acute (19) Mesenteric ischemia Status: Acute (20) Multiple contusions Status: Acute (21) Nausea Status: Acute (22) Pulmonary edema Status: Acute (23) Pulmonary edema Status: Acute (24) Pulmonary vascular congestion Status: Acute (25) Respiratory distress Status: Acute (26) Respiratory failure Status: Acute (27) SOB (shortness of breath) Status: Acute (28) Syncope Status: Acute Review of Systems Constitutional: No fever, No chills Respiratory: + wheezing, + shortness of breath, + dyspnea on exertion Cardiac: No chest pain, No orthopnea, No PND, No edema Abdomen: No pain, No diarrhea Objective Vital Signs Date Time Temp Pulse Resp B/P (MAP) Pulse Ox O2 Delivery O2 Flow Rate FiO2 02/15/18 19:04 77 20 98 Nasal Cannula 3.0 02/15/18 17:23 109 121/69 (86) 02/15/18 16:00 Nasal Cannula 2.0 02/15/18 15:51 36.4 83 20 112/63 (79) 98 Nasal Cannula 2.0 02/15/18 14:49 76 22 97 Nasal Cannula 2.0 02/15/18 11:11 85 22 96 Nasal Cannula 3.0 02/15/18 08:03 95 Nasal Cannula 2.0 02/15/18 07:16 35.9 72 16 116/69 (85) 95 Nasal Cannula 2.0 02/15/18 06:57 74 22 95 Nasal Cannula 3.0 02/15/18 03:41 78 22 99 Nasal Cannula 3.0 02/15/18 00:39 36.4 84 18 113/68 (83) 96 2.0 02/15/18 00:00 98 Nasal Cannula 2.0 02/14/18 23:15 89 24 98 Nasal Cannula 3.0 02/14/18 20:26 Nasal Cannula 2.0 Physical Exam General Appearance: no apparent distress ENT: + pharyngeal erythema, + pertinent finding (post-nasal drip noted with yellow mucous; hallitosis also present) Neck: no JVD Respiratory/Chest: no respiratory distress, no accessory muscle use, + pertinent finding (airation fair, end-exp wheeze, no rales) Cardiovascular: regular rate, rhythm, no gallop, no murmur Abdomen: normal bowel sounds, non tender, soft, no organomegaly Extremities: no pedal edema Neurologic/Psychiatric: alert, oriented x 3 Laboratory Results Last 24 Hours Test 02/14/18 21:09 02/15/18 07:35 02/15/18 11:49 02/15/18 16:55 Bedside Glucose 198 mg/dl 85 mg/dl 128 mg/dl 154 mg/dl Assessment and Plan 72yo female - 1. COPD exacerbation - slowly improving. Cont prednisone taper along with all outpatient inhalers & nebs. Added mucinex. Added incentive spirometry. 2. chronic hypoxic respiratory failure - stable on home O2 amount. 3. positive troponins - likely myocardial demand ischemia in setting of #1 above. Seen by cardiology; ischemic eval deferred. 4. CKD stage 3 - creatinine has been stable; BMP in am. 5. CAD with prior h/o [place] - continue ASA 81mg, Lipitor 80mg, Plavix 75mg, Coreg 18.75mg BID and Lisinopril 5mg Again cardiology felt positive troponin was likely demand ischemia and feels she is too high risk to cath or stress unless faced with an emergent situation. 6. Chronic Systolic CHF - ischemic cardiomyopathy with depressed EF of 25 - 30 % per echocardiogram 02/2017 - compensated. Continue home Lasix 40mg po BID along with Carvedilol and Lisinopril, ASA/Plavix /Lipitor and Zetia 7. post-nasal drip - could be sinusitis vs allergies or combination. Add samina BID. Add saline nasal spray. Add nasocort. Add mucinex. Consider doxy 100 BID x 10 days if no improvement. 8. T2DM - controlled. 9. history of prior stroke - cont aspirin for secondary prevention. Cont statin agent. 10. DVT proph - heparin SC. hopefully d/c home tomorrow AM Discharge planning: home
[2018-02-16 07:38] LABS: CALCIUM 8.3 mg/dl (8.5-10.1); CREATININE 1.01 mg/dl (0.60-1.20); POTASSIUM 3.9 mmol/L (3.5-5.1)
[2018-02-16] MEDS: FLUTICASONE/SALMETEROL (ADVAIR) 500/50 INH 14 PUFF INH SCH (07:56)
[2018-02-16] MEDS: POTASSIUM CHLORIDE 20 MEQ TABCR PO SCH (07:56)
[2018-02-16] MEDS: LISINOPRIL 5 MG TAB PO SCH (07:56)
[2018-02-16] MEDS: FUROSEMIDE 40 MG TAB PO SCH (07:56)
[2018-02-16] MEDS: ASPIRIN 81 MG ECTAB PO SCH (07:56)
[2018-02-16] MEDS: GUAIFENESIN 600 MG TABCR PO SCH (07:57)
[2018-02-16] MEDS: FEXOFENADINE HCL 60 MG TAB PO SCH (07:57)
[2018-02-16] MEDS: CARVEDILOL 12.5 MG TAB PO SCH (07:57)
[2018-02-16] MEDS: CLOPIDOGREL BISULFATE 75 MG TAB PO SCH (07:57)
[2018-02-16] MEDS: SERTRALINE HCL 50 MG TAB PO SCH (07:57)
[2018-02-16] MEDS ORDERED: TRIAMCINOLONE ACET NASAL SPRAY 10.8ML BTL NAE SCH (08:00)
[2018-02-16 08:43] LABS: HEMATOCRIT 39.6 % (37-47); HEMOGLOBIN 12.9 g/dL (12.0-16.0); MEAN CELL VOLUME 89.8 fL (80-100); MEAN CORPUSCULAR HEMOGLOBIN 29.3 pg (25-34); MEAN CORPUSCULAR HGB CONC 32.6 g/dl (32-36); MEAN PLATELET VOLUME 9.1 fL (7.4-10.4); PLATELET COUNT 135 K/uL (130-400); RED CELL DISTRIBUTION WIDTH SD 56.1 fL (36.4-46.3); WHITE BLOOD COUNT 6.79 K/uL (4.8-10.8)
[2018-02-16] MEDS ORDERED: NYSS5 PO (09:28)
[2018-02-16] MEDS ORDERED: ALL60 PO (09:28)
[2018-02-16] MEDS ORDERED: FLUT0.15 NAE (09:28)
[2018-02-16] MEDS ORDERED: SALI0.6510 (09:28)
[2018-02-16] MEDS ORDERED: GFNSR600 PO (09:28)
[2018-02-16] MEDS ORDERED: PRED10TA PO (09:28)
[2018-02-16] MEDS ORDERED: DXY100 PO (09:28)
[2018-02-16 09:30] VITALS: BP 141/79; PULSE 77; TEMP 36.8; O2SAT 96
--- NOTE | 2018-02-16 09:41 | Discharge Instructions ---
Discharge Instructions Date of Service February 16, 2018. Admission Reason for Admission: COPD Exacerbation & Chest Tightness Discharge Discharge Diagnosis / Problem: COPD exacerbation, Probable Sinusitis Discharge Goals Goal(s): Learn about illness, Diagnostic testing, Therapeutic intervention Activity Recommendations Activity Limitations: resume your previous activity (as tolerated) . Instructions / Follow-Up Instructions / Follow-Up From Dr. Cuevas - You were treated for COPD exacerbation with IV and oral steroids along with nebulizer treatments. Because of your complaint of chest tightness when you were first admitted you were seen by Dr. Flynn, your motorcoach driver. At that time Dr. Flynn felt that from a heart standpoint things were stable and the bulk of your presenting symptoms/complaints were due to your lung disease. You also complained of post-nasal drip and sinusitis type symptoms. You may be suffering from allergies and/or sinusitis (sinus infection). At this time I recommend the following - 1. Take a prednisone course; start this TOMORROW on 02/17/18. Take the prednisone each day with food. The taper will last 9 days in duration. Know that the prednisone can cause fluid retention so be sure to check your weight EVERY MORNING on the same scale. If you are seeing weight gains, worsening swelling, etc please let Dr. Flynn know right away. 2. Take a 10-day course of doxycycline for possible sinus infection. Know that doxycycline can cause the following - * heartburn * a rash if you go out in the sun * thus, while you are taking doxycycline, be sure to use sunscreen if you go out in the sun and cover up 3. For possible allergies and sinus congestion take the following - * samina (fexofenadiine) 60mg twice a day * flonase (fluticasone) nasal spray - 2 squirts in each nostril daily * nasal saline spray as frequently as needed/desired * mucinex [id number] up to 1200mg twice a day for cough/congestion 4. For thrush (yeast infection in the mouth) - * nystatin solution - 5ml (1 teaspoon) before meals & at bedtime; swish and spit 5. Continue all of your normal inhalers for your COPD. It may be a good idea to do your nebulizer treatments every 6 hours for a few more days while you are recovering from your illness and hospital stay. 6. Congestive heart failure - check your weight EVERY MORNING ON THE SAME SCALE. Again know that the prednisone can cause fluid retention. Additional CHF instructions - Call 911 and go to the Emergency Room if: * You have tightness or pain in your chest that does not go away with rest or Nitroglycerin * You are very short of breath even with rest Call your doctor if any of the following symptoms or problems start or get worse: * Shortness of breath or difficulty breathing * Wake up at night short of breath * Chest pain * Cough * Swelling of your hands, fee, or legs * More fatigued or tired with your normal activity * Palpitations - sudden fast heart beats WEIGHT * Weigh yourself every morning after using the bathroom. * Use the same scale. * Wear the same amount of clothing. * Write your weight down on your chart. *Call your doctors if you gain more than 2-3 pounds in 1-2 days. This is typically a sign you are taking on extra fluid weight from your congestive heart failure* MEDICATIONS * Use this discharge instruction sheet for instructions. * Take your medications at the time your doctor ordered. * Do not skip a dose of your medicines. * If you miss a dose of medicine, take as soon as possible, but DO NOT DOUBLE A DOSE. * Read your medicine information when you get home. * Know all of the side effects of your medicine. * Call your doctor's office if you have any side effects. * Be sure all of your doctors know what medicine and herbs you take (including cold, flu, and herbal medicine). * Pain Medicine: If you do not get relief from your pain, please call your doctor for help. Take the following with you to your follow-up doctor appointments: * Weight Chart * Medication List * List of questions 7. follow-up - * See Dr. Duncan's physician carpenter assistant this Saturday as scheduled. * See Dr. Flynn within 1-2 weeks. * please ask for a referral from Dr. Duncan to see the independent trader (lung specialist); you will need outpatient breathing tests called "PFTs". * recommend that you see pulmonary within 2 weeks or so. 8. Return to [facility] if - * you have recurrent chest pain or shortness of breath * you have to increase your oxygen at home for worsening breathing symptoms * you have fever over 100.4 degrees * you develop severe diarrhea * any other concerns Current Hospital Diet Patient's current hospital diet: AHA Diet (Heart Healthy), Diabetes Type 2 Diet Discharge Diet Recommended Diet: AHA Diet (Heart Healthy), Diabetes Type 2 Diet Fluid Restriction: 1500 ml (6 cups) Procedures Procedures Performed: chest x-ray Pending Studies Studies pending at discharge: no Laboratory Results Hemoglobin A1c Test 02/13/18 04:56 Range/Units Estimated Average Glucose 143 mg/dl Hemoglobin A1c 6.6 H 4.5-5.6 % Medical Emergencies . Who to Call and When: Medical Emergencies: If at any time you feel your situation is an emergency, please call 911 immediately. . Non-Emergent Contact Non-Emergency issues call your: Primary Care Provider, Garbage Worker Call Non-Emergent contact if: temperature is above 100.5, you have any medication questions . . "Provider Documentation" section prepared by Maninder Cuevas. .
--- NOTE | 2018-02-16 17:38 | Discharge Summary ---
Discharge Summary Date of Service February 16, 2018. Discharge Summary Admission Date: February 12, 2018 at 18:00 Discharge Date: February 16, 2018 Discharge Disposition: Home Principal Diagnosis: acute/chronic hypoxic/hypercarbic respiratory failure 2nd COPD exacerbation Problems/Secondary Diagnoses: Other acute medical problems: 1. positive troponin, likely myocardial demand ischemia in the setting of COPD exacerbation 2. question of sinusitis vs allergies or both 3. thrush Chronic Medical Problems: 1. Chronic respiratory failure with hypercapnia and hypoxia 2. Asthma/COPD on NC O2 at home 3. 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 CAD s/p CA 5. Stroke in May 2017 6. CKD stage 3 7. T2DM 8. Hyperlipidemia 9. LBBB 10. h/o mesenteric ischemia s/p stents 11. biventricular ICD/pacemaker placement 12. PAD 13. history of SAH in 2017 14. history of paroxysmal atrial fibrillation Immunizations: Have You Had Influenza Vaccine: Yes Influenza Vaccine Date: Oct 12, 2012 History of Tetanus Vaccine?: Unknown History of Pneumococcal: Unknown History of Hepatitis B Vaccine: No Procedures: chest x-ray Consultations: cardiology - Otto Flynn MD pulmonary - Girma Samuel MD PT, OT Medication Reconciliation New Medications: Doxycycline Hyclate (Doxycycline Hyclate) 100 Mg Cap 100 MG PO BID for 10 Days, #20 CAP 0 Refills Fluticasone Propionate (Nasal) (Flonase Allergy Relief) 50 Mcg/Act Spr 2 SPRAYS EVER DAILY, #1 BTL 5 Refills Nystatin (Nystatin) 5 Ml Susp 5 ML PO ACHS, #200 ML 0 Refills swish & spit Prednisone (Prednisone) 10 Mg Tab 10 MG PO DIRECTED, #18 TAB 0 Refills starting 02/17: take 3 tabs days 1-3, 2 tabs days 4-6, 1 tab days 7-9. Take with food. Fexofenadine HCl (Fexofenadine HCl) 60 Mg Tab 60 MG PO BID, #60 TAB 1 Refill Guaifenesin Ext Rel (Mucinex Ext Rel) 600 Mg Tabcr 1200 MG PO Q12, #30 TABS 0 Refills purchase [id number] Saline (Richardson Nasal [place]) 0.65 % Spr 2 SPRAYS NA Q1H PRN for nasal congestion, #1 BTL 0 Refills Continued Medications: Acetaminophen (Tylenol) 500 Mg Tab 500 MG PO 4-6HRS PRN for Pain, TAB Albuterol Hfa (Ventolin Hfa) 200 Puffs/14246 Mcg Aers 1-2 PUFFS INH Q4-6HRS, INHALER Albuterol Sulf (Albuterol Sulfate) 2.5 Mg/3 Ml Nebu 3 ML NEB 4-6HRS PRN for SOB/Wheezing Aspirin (Aspirin Ec) 81 Mg Tab 81 MG PO DAILY Atorvastatin (Lipitor) 80 Mg Tab 80 MG PO HS Carvedilol (Carvedilol) 12.5 Mg Tab 18.75 MG PO BIDM Clopidogrel Bisulfate (Clopidogrel) 75 Mg Tab 75 MG PO DAILY Ezetimibe (Ezetimibe) 10 Mg Tab 10 MG PO HS Fluticasone Prop/Salmeterol (Advair Diskus 500/50 60 Dose) 1 Ea Aerp 1 PUFF INH BID Furosemide (Furosemide) 40 Mg Tab 40 MG PO BID Guaifenesin/Codeine (Robitussin-Ac Syrup) Syrp 10 ML PO Q6H PRN for Cough, ML Home O2 Therapy (Oxygen) Gas 2 LITER NA UD, BTL Hydrocortisone 2.5% (Rectal) (Anusol-Hc 2.5%) 2.5 % Cre 1 APPLN TOP BID, GM Ipratropium-Albuterol (Combivent Respimat) 1 Aer Aer 1 PUFF INH QID, INH Lisinopril (Lisinopril) 5 Mg Tab 5 MG PO QAM Potassium Ext Rel (Klor-Con) 20 Meq Tabcr 20 MEQ PO DAILY Pramipexole Dihydrochloride (Pramipexole Dihydrochlori) 0.25 Mg Tab 0.25 MG PO HS Sertraline HCl (Sertraline HCl) 50 Mg Tab 50 MG PO DAILY Discontinued Medications: Hydroxyzine HCl (Hydroxyzine HCl) 10 Mg Tab 10 MG PO HS Discharge Exam Physical Exam: General Appearance: no apparent distress, + thin ENT: + pertinent finding (thrush plaques on buccal mucosa) Neck: no JVD Respiratory/Chest: no respiratory distress, no accessory muscle use, + decreased breath sounds (airation fair ), + wheezing (minimal end-exp wheeze; no rales) Cardiovascular: regular rate, rhythm, no gallop, no murmur Abdomen / GI: normal bowel sounds, non tender, soft, no organomegaly Extremities: no pedal edema Neurologic/Psychiatric: alert, oriented x 3 Skin: no rash Hospital Course HISTORY OF PRESENT ILLNESS: Patient is a 72yo female with multiple medical comorbidities most notably CAD s/ p CA and biventricular AICD placement, ischemic cardiomyopathy with EF of 30%, PAD, and chronic hypoxic respiratory failure due to O2-dependent COPD presenting with 3-4 days of progressive shortness of breath and CHOWDHURY. She reports a stable, nonproductive cough. No fevers or chills but has been having some sweats at night. She had an episode of substernal chest heaviness that occurred this afternoon around 1200 and resolved rather quickly. She denies orthopnea, weight gain or increase in LE edema. Denies palpitations. She attempted to use her inhalers at home to improve her breathing but they did not help. No additional complaints at this time. Upon arrival to the ER she was found to be tachypneic with RR of 24. She was administered nebs x 2, steroids and magnesium with mild improvement in symptoms. An ambulatory trial was attempted after treatment given - O2 sats preserved but patient became tachypnic with RR in the 30's. ER Course: DuoNeb x 2, Azithromycin 500mg IV, Solumedrol 125mg IV, Magnesium. HOSPITAL COURSE: The patient was treated for her COPD exacerbation in the customary fashion with IV/PO steroids, nebulizers, pulmonary toilet, and antibiotics. There was no radiographic evidence of a complicating pneumonia on chest x-ray. She was seen in consult by pulmonary who recommended repeat PFTs in the near- future as an outpatient as well as continued management of the acute exacerbation as stated above. The patient's pulmonary symptoms gradually improved throughout her stay. Of note - the patient's oxygen requirement never terri above her typical 2 liters of continuous NC O2. On day of discharge the patient was ambulated with her 2 liters of NC O2 in place and her O2 sats were greater than 90% at all times during her walk. Mrs. Jameson complained of several weeks of significant post-nasal drip, sinus- type headaches, as well as purulent nasal discharge. It was thought that perhaps she had a concomitant sinusitis +/- allergic rhinitis contributing to her symptoms. To cover for possible sinusitis she will complete a 10-day course of doxycycline after discharge. She will remain on samina, nasal steroid, and nasal saline spray for symptomatic relief as well. In light of the patient's chest tightness she had experienced prior to presentation she underwent serial troponins which were minimally elevated. She was seen in consult by Dr. Flynn, her primary agricultural engineering technicians, who felt that the troponin rise was likely myocardial demand ischemia in the setting of her acute/chronic respiratory failure. Thus, an ischemic evaluation was deferred. The patient's chronic systolic CHF remained compensated during her stay, her CKD /creatinine remained at baseline, and all other medical problems were stable while here. She was cleared for home by PT, OT. At discharge the following were recommended - 1. prednisone taper starting with 30mg daily on 02/17/18 2. doxycycline x 10 days for possible sinusitis 3. allergy meds as noted above 4. careful attention to daily weights in light of the steroid use 5. follow-up with [facility] to undergo PFTs and have regular pulmonary visits - within 2 weeks 6. follow-up with [facility], Dr. Flynn, within 1-2 weeks 7. nystatin solution x 10 days for thrush Total Time Spent: Greater than 30 minutes This includes examination of the patient, discharge planning, medication reconciliation, and communication with other providers. Discharge Instructions Please refer to the electronic Patient Visit Report (Discharge Instructions) for additional information. Follow-Up DANAE Rebolledo - Monday, February 19, 2018 at 9:30am. Additional Copies To RV. Edwards MD; Brenda Haque PA-C; Otto Flynn M.D.
== END 2018-02-16 10:10 | disposition home or self-care (01) | DRG 190 ==
LOC: C.EDB 15:06 → C.MED 20:16 → ENRESERV 20:42 → OBSVTOIN 02-12 18:00 → C.MS4W 02-13 18:07
PROVIDERS: ADMIT Internal Medicine; ATTEND Internal Medicine
DX: J44.1 Chronic obstructive pulmonary disease with (acute) exacerbation (principal); J96.21 Acute and chronic respiratory failure with hypoxia; J96.22 Acute and chronic respiratory failure with hypercapnia; I24.8 Other forms of acute ischemic heart disease; I25.110 Atherosclerotic heart disease of native coronary artery with unstable angina pectoris; I13.0 Hypertensive heart and chronic kidney disease with heart failure and stage 1 through stage 4 chronic kidney disease, or unspecified chronic kidney disease; I50.22 Chronic systolic (congestive) heart failure; I42.0 Dilated cardiomyopathy; B37.0 Candidal stomatitis; Z99.81 Dependence on supplemental oxygen; I25.5 Ischemic cardiomyopathy; I34.0 Nonrheumatic mitral (valve) insufficiency; I48.2 Chronic atrial fibrillation; E11.51 Type 2 diabetes mellitus with diabetic peripheral angiopathy without gangrene; E11.22 Type 2 diabetes mellitus with diabetic chronic kidney disease; N18.3 Chronic kidney disease, stage 3 (moderate); E78.5 Hyperlipidemia, unspecified; J32.9 Chronic sinusitis, unspecified; J30.9 Allergic rhinitis, unspecified; I44.7 Left bundle-branch block, unspecified; F32.9 Major depressive disorder, single episode, unspecified; G25.81 Restless legs syndrome; I25.2 Old myocardial infarction; Z86.79 Personal history of other diseases of the circulatory system; Z95.810 Presence of automatic (implantable) cardiac defibrillator; Z98.62 Peripheral vascular angioplasty status; Z86.73 Personal history of transient ischemic attack (TIA), and cerebral infarction without residual deficits; Z87.891 Personal history of nicotine dependence; Z79.02 Long term (current) use of antithrombotics/antiplatelets; Z79.82 Long term (current) use of aspirin; Z79.899 Other long term (current) drug therapy; Z88.2 Allergy status to sulfonamides; Z88.5 Allergy status to narcotic agent; Z83.6 Family history of other diseases of the respiratory system; Z82.49 Family history of ischemic heart disease and other diseases of the circulatory system; Z83.3 Family history of diabetes mellitus; Z84.1 Family history of disorders of kidney and ureter; Z80.3 Family history of malignant neoplasm of breast; Z90.710 Acquired absence of both cervix and uterus; Z90.722 Acquired absence of ovaries, bilateral; Z98.890 Other specified postprocedural states

== ENCOUNTER 2018-05-09 21:09 | Inpatient (IN) | payer BC, OTHER ==
[~2018-05-09] VITALS: Ht 157.5 cm; Wt 56.1 kg
[~2018-05-09 21:09] MED LIST changes: +ADVIN50/60 INH; +ALL60 PO; -ASPCH81X PO; +ASPI81TA28 PO; +ATOR-26 PO; -ATOR80TA PO; -ATR10 PO; -CARV12.5 PO; -CLOP1TAB54 PO; +CRG125 PO; -EZET10TA47 PO; +EZET10TA66 PO; +FLUT0.15 NAE; -FRS/40 PO; -GABA-112 PO; -GUAISYP4 PO; -HYDR2.5C37 TOP; +KLN5X PO; +LISI-730 PO; -LORA-741 PO; +LSX40 PO; -MCRK20 PO; +PLV75 PO; +POTA-639 PO; -PRD20 PO; +SALI0.6510; -SERT50TA PO; +ZLF/50 PO
[2018-05-09] MEDS ORDERED: METHYLPREDNISOLONE 125 MG VIAL IV STA (21:18)
--- NOTE | 2018-05-09 21:23 | EMERGENCY ROOM VISIT NOTE ---
History Report prepared by Phillip: Christian Wilkins Under the Supervision of: Dr. Arjun Holloway D.O. First contact with patient: 21:15 Chief Complaint: RESPIRATORY DISTRESS Stated Complaint: RESP. DISTRESS History of Present Illness The patient is a 73 year old female who presents to the Emergency Room with complaints of worsening shortness of breath that the patient has been experiencing for the past 7 days. The patient notes that her shortness of breath is worsened with laying flat. She denies any chest pain. She does wear 2 liters of oxygen at home and increased the flow to 4 liters yesterday. She also administered a DuoNeb treatment at home today. EMS administered a DuoNeb treatment as well as an Albuterol prior to arrival. She does have a history of COPD as well as a significant cardiac history. She was last on steroids 3 weeks ago. Source of History: patient, family Onset: 7 days ago Position: chest (SOB) Quality: other (SOB) Timing: worsening Associated Symptoms: No chest pain Review of Systems See HPI for pertinent positives & negatives. A total of 10 systems reviewed and were otherwise negative. Past Medical & Surgical Medical Problems: (1) Acute and chronic respiratory failure with hypercapnia (2) Acute and chronic respiratory failure with hypoxia (3) Acute on chronic systolic (congestive) heart failure (4) AICD malfunction (5) ANEMIA NOS (6) ASTHMA, UNSPECIFIED (7) Cardiac defibrillator in place (8) CHF (congestive heart failure) (9) CHF exacerbation (10) CHRONIC KIDNEY DISEASE, UNSPECIFIED (11) COPD (chronic obstructive pulmonary disease) (12) COPD exacerbation (13) COPD exacerbation (14) CORONARY ATHEROSCLEROSIS OF [place] CORONARY VESSEL (15) DIAB [place] WO COMPL, TYPE II OR UNSPEC TYPE, NOT UNCNTRLD (16) Elevated troponin (17) Emphysema of lung (18) Hypoxia (19) Influenza A (20) Left lower lobe pneumonia (21) Non compliance w medication regimen (22) Pulmonary congestion (23) PURE HYPERCHOLESTEROLEM (24) Respiratory distress (25) Syncope Family History Breast cancer Diabetes mellitus FH: heart disease Hypertension Kidney disease Kidney stones Lung disease Myocardial infarction Social History Smoking Status: Former Smoker Alcohol Use: occasionally Drug Use: none Marital Status: Housing Status: lives with family Occupation Status: retired Current/Historical Medications Scheduled Albuterol Hfa (Ventolin Hfa), 1-2 PUFFS INH Q4-6HRS Aspirin (Aspirin Ec), 81 MG PO DAILY Atorvastatin (Lipitor), 80 MG PO HS Carvedilol (Carvedilol), 18.75 MG PO BIDM Clonazepam (Clonazepam), 0.5 MG PO HS Clopidogrel Bisulfate (Clopidogrel), 75 MG PO DAILY Ezetimibe (Ezetimibe), 10 MG PO HS Fexofenadine HCl (Fexofenadine HCl), 60 MG PO BID Fluticasone Prop/Salmeterol (Advair Diskus 500/50 60 Dose), 1 PUFF INH BID Fluticasone Propionate (Nasal) (Flonase Allergy Relief), 2 SPRAYS EVER DAILY Furosemide (Furosemide), 40 MG PO BID Home O2 Therapy (Oxygen), 2 LITER NA UD Ipratropium-Albuterol (Combivent Respimat), 1 PUFF INH QID Lisinopril (Lisinopril), 5 MG PO QAM Potassium Ext Rel (Klor-Con), 20 MEQ PO DAILY Pramipexole Dihydrochloride (Pramipexole Dihydrochlori), 0.25 MG PO HS Sertraline HCl (Sertraline HCl), 50 MG PO DAILY Scheduled PRN Acetaminophen (Tylenol), 500 MG PO 4-6HRS PRN for Pain Albuterol Sulf (Albuterol Sulfate), 3 ML NEB 4-6HRS PRN for SOB/Wheezing Saline ([place] Nasal [place]), 2 SPRAYS NA Q1H PRN for nasal congestion Allergies Coded Allergies: Sulfa Antibiotics (Verified Allergy, Intermediate, RASH, 04/13/18) Morphine (Verified Adverse Reaction, Mild, GI SYMPTOMS, 04/13/18) Physical Exam Vital Signs Date Time Temp Pulse Resp B/P (MAP) Pulse Ox O2 Delivery O2 Flow Rate FiO2 05/09/18 23:05 101 96 40 05/09/18 22:31 100 22 112/80 99 BiPAP 40 05/09/18 21:35 63 97 40 05/09/18 21:34 63 36 97 BiPAP/CPAP 40 05/09/18 21:29 37.5 64 32 168/65 94 Nasal Cannula 4.0 05/09/18 21:29 93 Nasal Cannula 4.0 05/09/18 21:24 93 Nasal Cannula 4.0 05/09/18 21:23 70 Physical Exam GENERAL: Patient is awake, alert, and very anxious and uncomfortable appearing. Appears to be in significant distress. EYES: The conjunctivae are clear. The pupils are round and reactive. EARS, NOSE, MOUTH AND THROAT: The nose is without any evidence of any deformity. Mucous membranes are moist. Tongue is midline NECK: The neck is nontender and supple. RESPIRATORY: Lung sounds are diminished throughout with very poor air movement. There is significant tachypnea and conversational dyspnea were appreciated. There is no evidence of wheezing rhonchi or rales to auscultation. CARDIOVASCULAR: Tachycardic rate and regular rhythm noted. There no murmurs rubs or gallops normal S1 normal S2 GASTROINTESTINAL: The abdomen is soft. Bowel sounds are present in all quadrants. Abdomen is nontender. MUSCULOSKELETAL/EXTREMITIES: There is no evidence of gross deformity. Full range of motion is noted in the hips and shoulders. SKIN: There is no obvious evidence of any rash. There is pedal edema bilaterally. There are no petechiae, pallor or cyanosis noted. NEUROLOGIC: Patient is awake alert and oriented x3. Medical Decision & Procedures ER Provider Diagnostic Interpretation: Radiology results as stated below per my review and radiologist interpretation: CHEST ONE VIEW PORTABLE CLINICAL HISTORY: Sepsis dyspnea COMPARISON STUDY: 04/13/2018 FINDINGS: Moderate cardiomegaly. Interval development parenchymal infiltrate left base. Lungs otherwise appear clear. IMPRESSION: Infiltrate left base The above report was generated using voice recognition software. It may contain grammatical, syntax or spelling errors. Electronically signed by: César Muñoz M.D. 05/09/2018 9:35 PM Dictated Date/Time: 05/09/2018 9:34 PM Laboratory Results Test 05/09/18 21:20 05/09/18 21:47 05/09/18 21:48 05/09/18 22:05 Urine Color YELLOW Urine Appearance CLEAR (CLEAR) Urine pH 7.0 (4.5-7.5) Urine Specific [place] 1.016 (1.000-1.030) Urine Protein 2+ (NEG) Urine Glucose (UA) NEG (NEG) Urine Ketones NEG (NEG) Urine Occult Blood NEG (NEG) Urine Nitrite NEG (NEG) Urine Bilirubin NEG (NEG) Urine Urobilinogen NEG (NEG) Urine Leukocyte Esterase TRACE (NEG) Urine WBC (Auto) 1-5 /hpf (0-5) Urine RBC (Auto) 0-4 /hpf (0-4) Urine Hyaline Casts (Auto) 1-5 /lpf (0-5) Urine Epithelial Cells (Auto) >30 /lpf (0-5) Urine Bacteria (Auto) 4+ (NEG) Immature Granulocyte % (Auto) 0.5 % White Blood Count 16.31 K/uL (4.8-10.8) Red Blood Count 3.29 M/uL (4.2-5.4) Hemoglobin 9.6 g/dL (12.0-16.0) Hematocrit 30.1 % (37-47) Mean Corpuscular Volume 91.5 fL (80-100) Mean Corpuscular Hemoglobin 29.2 pg (25-34) Mean Corpuscular Hemoglobin Concent 31.9 g/dl (32-36) Platelet Count 353 K/uL (130-400) Mean Platelet Volume 9.2 fL (7.4-10.4) Neutrophils (%) (Auto) 74.5 % Lymphocytes (%) (Auto) 13.4 % Monocytes (%) (Auto) 10.4 % Eosinophils (%) (Auto) 1.0 % Basophils (%) (Auto) 0.2 % Neutrophils # (Auto) 12.14 K/uL (1.4-6.5) Lymphocytes # (Auto) 2.18 K/uL (1.2-3.4) Monocytes # (Auto) 1.70 K/uL (0.11-0.59) Eosinophils # (Auto) 0.17 K/uL (0-0.5) Basophils # (Auto) 0.04 K/uL (0-0.2) Immature Granulocyte # (Auto) 0.08 K/uL (0.00-0.02) Erythrocyte Sedimentation Rate 59 mm/hr (0-21) Prothrombin Time 10.8 SECONDS (9.0-12.0) Prothromb Time International Ratio 1.0 (0.9-1.1) Activated Partial Thromboplast Time 26.8 SECONDS (21.0-31.0) Partial Thromboplastin Ratio 1.0 Phosphorus Level 4.7 mg/dl (2.5-4.9) Total Bilirubin 0.4 mg/dl (0.2-1) Aspartate Amino Transf (AST/SGOT) 15 U/L (15-37) Alanine Aminotransferase (ALT/SGPT) 17 U/L (12-78) Alkaline Phosphatase 57 U/L (45-117) Total Creatine Kinase 21 U/L (26-192) Creatine Kinase MB < 1.0 ng/ml (0.5-3.6) Creatine Kinase MB Ratio (0-3.0) C-Reactive Protein 12.20 mg/dl (0-0.29) Pro-B-Type Natriuretic Peptide 8621 pg/ml (0-900) Total Protein 6.7 gm/dl (6.4-8.2) Albumin 2.8 gm/dl (3.4-5.0) Globulin 3.9 gm/dl (2.5-4.0) Albumin/Globulin Ratio 0.7 (0.9-2) Lipase 127 U/L (73-393) Bedside Lactic Acid Venous 3.04 mmol/L (0.90-1.70) Venous Blood pH 7.36 (7.36-7.41) Venous Blood Partial Pressure CO2 51 mmHg (38.0-50.0) Venous Blood Partial Pressure O2 20 mmHg Venous Blood HCO3 28 mmol/L Venous Blood Oxygen Saturation < 60.0 % Venous Blood Base Excess 2.0 mEq/L Laboratory results per my review. Medications Administered Medications (Trade) Dose Ordered Sig/[place] Route Start Time Stop Time Status Last Admin Dose Admin Albuterol/ Ipratropium (Duoneb) 12 ml ONE ONCE INH 05/09/18 21:30 05/09/18 21:31 DC 05/09/18 21:33 12 ML Methylprednisolone Sodium Succinate (Solu-Medrol IV) 125 mg NOW STAT IV 05/09/18 21:18 05/09/18 21:20 DC 05/09/18 21:25 125 MG Levofloxacin (Levaquin / D5W) 750 mg NOW STAT IV 05/09/18 21:38 05/09/18 21:39 DC 05/09/18 22:02 750 MG Sodium Chloride 1,000 ml @ 999 mls/hr Q1H1M STAT IV 05/09/18 21:38 05/09/18 22:38 DC 05/09/18 21:46 999 MLS/HR Lorazepam (Ativan Inj) 0.5 mg NOW STAT IV 05/09/18 21:58 05/09/18 21:59 DC 05/09/18 22:02 0.5 MG ECG Per My Interpretation Indication: SOB/dyspnea Rate (beats per minute): 72 Rhythm: other (Ventricular paced) Findings: paced rhythm, other (No [place] beats noted) ED Course 2115: The patient was evaluated in room A2. A complete history and physical examination were performed. 2117: Ordered Solu-Medrol 125 mg IV. 2129: Ordered DuoNeb 12 mL INH. 2137: Ordered Sodium Chloride 1000 mL @ 999 mL/hr IV. 2137: Ordered Levofloxacin 750 mg IV. 2157: Ordered Lorazepam 0.5 mg IV. 2238: I discussed the case with Dr. Herb HOWARD. He will evaluate the patient for further treatment. Medical Decision Prior records/ancillary studies reviewed. Triage Nursing notes reviewed. Differential diagnosis: Etiologies such as infections, reactive airway disease, pneumonia, pneumothorax , COPD, CHF, cardiac ischemia, pulmonary embolism, musculoskeletal, gastrointestinal, as well as others were entertained. Patient is a 73-year-old female who presented to the emergency department by ambulance with shortness of breath. She had very significant respiratory distress clinically. She was treated with bronchodilators IV fluids IV antibiotics and IV steroids. She was reevaluated multiple times. She was somewhat improved but required BiPAP. I discussed patient's laboratory and radiographic studies with her and her family members. I also discussed her case with the on-call [facility] hospitalist group. They have agreed to evaluate patient in the emergency department for further management and disposition. Medication Reconcilliation Current Medication List: was personally reviewed by me Blood Pressure Screening Patient's blood pressure: Elevated blood pressure Blood pressure disposition: Elevated BP felt to be situational Consults Time Called: [phone] Consulting Physician: Dr. Herb HOWARD Returned Call: [phone] I discussed the case with Dr. Herb HOWARD. He will evaluate the patient for further treatment. Impression Primary Impression: Pneumonia Additional Impression: COPD exacerbation Scribe Attestation The scribe's documentation has been prepared under my direction and personally reviewed by me in its entirety. I confirm that the note above accurately reflects all work, treatment, procedures, and medical decision making performed by me. Departure Information Referrals RV. Edwards MD (PCP) Patient Instructions Asthma - [facility], COPD - [facility], Croup - [facility], [facility] Health Problem Qualifiers Primary Impression: Pneumonia Pneumonia type: due to unspecified organism Laterality: unspecified laterality Lung location: unspecified part of lung Qualified Codes: J18.9 - Pneumonia, unspecified organism
[2018-05-09] MEDS ORDERED: ALBUT/IPRATROP 3MG/0.5MG NEB 3 ML VIAL INH ONE (21:30)
[2018-05-09 21:34] VITALS: PULSE 63; O2SAT 97
[2018-05-09 21:35] VITALS: PULSE 63; O2SAT 97
--- NOTE | 2018-05-09 21:36 | DIAGNOSTIC IMAGING REPORT ---
CHEST ONE VIEW PORTABLE CLINICAL HISTORY: Sepsis dyspnea COMPARISON STUDY: 04/13/2018 FINDINGS: Moderate cardiomegaly. Interval development parenchymal infiltrate left base. Lungs otherwise appear clear. IMPRESSION: Infiltrate left base The above report was generated using voice recognition software. It may contain grammatical, syntax or spelling errors. Electronically signed by: César Muñoz M.D. 05/09/2018 9:35 PM Dictated Date/Time: 05/09/2018 9:34 PM
[2018-05-09] MEDS ORDERED: SODIUM CHLORIDE 0.9% 1000ML 1,000 ML IV STA (21:38)
[2018-05-09] MEDS ORDERED: LEVAQUIN 750MG / 150ML D5W IV STA (21:38)
[2018-05-09] MEDS ORDERED: LORAZEPAM 2 MG/ML 1 ML VIAL IV STA (21:58)
[2018-05-09 22:07] LABS: BASO % 0.2 %; BASO ABS # 0.04 K/uL (0-0.2); EOS ABS # 0.17 K/uL (0-0.5); HEMATOCRIT 30.1 % (37-47); HEMOGLOBIN 9.6 g/dL (12.0-16.0); IG# 0.08 K/uL (0.00-0.02); LYMPH % 13.4 %; LYMPH ABS # 2.18 K/uL (1.2-3.4); MEAN CELL VOLUME 91.5 fL (80-100); MEAN CORPUSCULAR HEMOGLOBIN 29.2 pg (25-34); MEAN CORPUSCULAR HGB CONC 31.9 g/dl (32-36); MEAN PLATELET VOLUME 9.2 fL (7.4-10.4); MONO % 10.4 %; NEUT % 74.5 %; NEUT ABS # 12.14 K/uL (1.4-6.5); PLATELET COUNT 353 K/uL (130-400); RED CELL DISTRIBUTION WIDTH CV 17.5 % (11.5-14.5); RED CELL DISTRIBUTION WIDTH SD 58.9 fL (36.4-46.3); WHITE BLOOD COUNT 16.31 K/uL (4.8-10.8)
[2018-05-09 22:19] LABS: PTT PATIENT 26.8 SECONDS (21.0-31.0)
[2018-05-09 22:45] LABS: ALBUMIN 2.8 gm/dl (3.4-5.0); ALKALINE PHOSPHATASE 57 U/L (45-117); ALT/SGPT 17 U/L (12-78); AST/SGOT 15 U/L (15-37); BLOOD UREA NITROGEN 28 mg/dl (7-18); CALCIUM 9.6 mg/dl (8.5-10.1); CARBON DIOXIDE 26 mmol/L (21-32); CKMB < 1.0 ng/ml (0.5-3.6); CREATININE 1.24 mg/dl (0.60-1.20); GLUCOSE 184 mg/dl (70-99); LIPASE 127 U/L (73-393); PHOSPHORUS 4.7 mg/dl (2.5-4.9); SODIUM 132 mmol/L (136-145); TOTAL PROTEIN 6.7 gm/dl (6.4-8.2)
--- NOTE | 2018-05-09 22:54 | History and Physical ---
History & Physical Date & Time of Service: May 09, 2018 at 22:42 Chief Complaint: Resp. Distress Primary Care Physician: RV. 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 Multiple recent admissions due to respiratory failure related to CHF and COPD. Presents with progressive SOB and a productive cough. . She was moderately distressed and required BiPAP on arrival to the ER. Initial CXR reveals a LLL infiltrate. A low grade fever was confirmed. She denies CP, N/V, or dysuria. The pt was clinically hypovolemic at the time of admission and indeed she received a litre of fluids without any adverse effect on her respiratory status. Initial labs are notable for hyponatremia, mild MIRYAM, leukocytosis and an elevated lactic acid. The pt was last admitted for a COPD exacerbation 02/21. She had an elevated troponin at the time which was thought due to demand ischemia. Past Medical/Surgical History 1) CHF - ischemic cardiomyopathy - EF 25-30% 2) CAD - inf [place] 2000 3) HTN 4) HPL 5) COPD - 3L home 02 6) Mesenteric ischemia 7) Abdominal aortic stenosis 8) Carotid stenosis - L CEA 9) Moderate aortic stenosis 10) Severe MR 11) LBBB 12) Biventricular pacer / defib 2011 - recent revision 13) Ischemic bowel 02/19. 14) Abdominal aortic stenting on 03/19. 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 19) Chronic troponin elevation Surgical: 1) SCOT-BSO 2) Defib/pacer 3) Carpal tunnel 4) L CEA 5) Femoral bypass Family History Breast cancer Diabetes mellitus FH: heart disease Hypertension Kidney disease Kidney stones Lung disease Myocardial infarction Social History Smoking Status: Former Smoker Drug Use: none Marital Status: Housing status: lives with significant other Occupational Status: retired Immunizations History of Influenza Vaccine: Yes Influenza Vaccine Date: Oct 12, 2012 History of Tetanus Vaccine?: Unknown History of Pneumococcal: Unknown History of Hepatitis B Vaccine: No Allergies Coded Allergies: Sulfa Antibiotics (Verified Allergy, Intermediate, RASH, 04/13/18) Morphine (Verified Adverse Reaction, Mild, GI SYMPTOMS, 04/13/18) Home Medications Scheduled Albuterol Hfa (Ventolin Hfa), 1-2 PUFFS INH Q4-6HRS Aspirin (Aspirin Ec), 81 MG PO DAILY Atorvastatin (Lipitor), 80 MG PO HS Carvedilol (Carvedilol), 18.75 MG PO BIDM Clonazepam (Clonazepam), 0.5 MG PO HS Clopidogrel Bisulfate (Clopidogrel), 75 MG PO DAILY Ezetimibe (Ezetimibe), 10 MG PO HS Fexofenadine HCl (Fexofenadine HCl), 60 MG PO BID Fluticasone Prop/Salmeterol (Advair Diskus 500/50 60 Dose), 1 PUFF INH BID Fluticasone Propionate (Nasal) (Flonase Allergy Relief), 2 SPRAYS EVER DAILY Furosemide (Furosemide), 40 MG PO BID Home O2 Therapy (Oxygen), 2 LITER NA UD Ipratropium-Albuterol (Combivent Respimat), 1 PUFF INH QID Lisinopril (Lisinopril), 5 MG PO QAM Potassium Ext Rel (Klor-Con), 20 MEQ PO DAILY Pramipexole Dihydrochloride (Pramipexole Dihydrochlori), 0.25 MG PO HS Sertraline HCl (Sertraline HCl), 50 MG PO DAILY Scheduled PRN Acetaminophen (Tylenol), 500 MG PO 4-6HRS PRN for Pain Albuterol Sulf (Albuterol Sulfate), 3 ML NEB 4-6HRS PRN for SOB/Wheezing Saline ([place] Nasal [place]), 2 SPRAYS NA Q1H PRN for nasal congestion Review of Systems Constitutional: + fever, + weakness, No chills, No sweats Eyes: No worsening of vision ENT: No hearing loss, No unusual epistaxis, No nasal symptoms Respiratory: + cough, + sputum, + shortness of breath, + dyspnea on exertion, + dyspnea at rest Cardiovascular: No chest pain, No orthopnea, No PND Abdomen: + nausea, No pain, No vomiting Musculoskeletal: No joint pain Genitourinary - Female: No dysuria, No urinary frequency Neurologic: + weakness, No memory loss, No paralysis Psychiatric: No depression symptoms Endocrine: + fatigue Hematologic / Lymphatic: No abnormal bleeding/bruising Integumentary: No rash Allergic / Immunologic: No environmental allergies Physical Exam Vital Signs Date Time Temp Pulse Resp B/P (MAP) Pulse Ox O2 Delivery O2 Flow Rate FiO2 05/09/18 22:31 100 22 112/80 99 BiPAP 40 05/09/18 21:35 63 97 40 05/09/18 21:34 63 36 97 BiPAP/CPAP 40 05/09/18 21:29 37.5 64 32 168/65 94 Nasal Cannula 4.0 05/09/18 21:29 93 Nasal Cannula 4.0 05/09/18 21:24 93 Nasal Cannula 4.0 05/09/18 21:23 70 General Appearance: WD/WN, no apparent distress Head: normocephalic Eyes: normal inspection ENT: normal ENT inspection, pharynx normal Neck: supple, no JVD Respiratory/Chest: chest non-tender, + pertinent finding (Poor air movement BL - no air entry into L base - no audible wheezing) Cardiovascular: regular rate, rhythm, + systolic murmur Abdomen/GI: normal bowel sounds, non tender, soft Back: normal inspection, no CVA tenderness Extremities/Musculoskelatal: normal range of motion, + pedal edema 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, no motor/sensory deficits, alert, oriented x 3 Skin: + pertinent finding (Some petechiae are seen on the pts face and arms) Diagnostics Laboratory Results Results Past 24 Hours Test 05/09/18 21:18 05/09/18 21:20 05/09/18 21:47 05/09/18 21:48 Range/Units Creatine Kinase MB Ratio 0-3.0 Urine Color YELLOW Urine Appearance CLEAR CLEAR Urine pH 7.0 4.5-7.5 Urine Specific [place] 1.016 1.000-1.030 Urine Protein 2+ NEG Urine Glucose (UA) NEG NEG Urine Ketones NEG NEG Urine Occult Blood NEG NEG Urine Nitrite NEG NEG Urine Bilirubin NEG NEG Urine Urobilinogen NEG NEG Urine Leukocyte Esterase TRACE NEG Urine WBC (Auto) 1-5 0-5 /hpf Urine RBC (Auto) 0-4 0-4 /hpf Urine Hyaline Casts (Auto) 1-5 0-5 /lpf Urine Epithelial Cells (Auto) >30 0-5 /lpf Urine Bacteria (Auto) 4+ NEG White Blood Count 16.31 4.8-10.8 K/uL Red Blood Count 3.29 4.2-5.4 M/uL Hemoglobin 9.6 12.0-16.0 g/dL Hematocrit 30.1 37-47 % Mean Corpuscular Volume 91.5 80-100 fL Mean Corpuscular Hemoglobin 29.2 25-34 pg Mean Corpuscular Hemoglobin Concent 31.9 32-36 g/dl Platelet Count 353 130-400 K/uL Mean Platelet Volume 9.2 7.4-10.4 fL Neutrophils (%) (Auto) 74.5 % Lymphocytes (%) (Auto) 13.4 % Monocytes (%) (Auto) 10.4 % Eosinophils (%) (Auto) 1.0 % Basophils (%) (Auto) 0.2 % Neutrophils # (Auto) 12.14 1.4-6.5 K/uL Lymphocytes # (Auto) 2.18 1.2-3.4 K/uL Monocytes # (Auto) 1.70 0.11-0.59 K/uL Eosinophils # (Auto) 0.17 0-0.5 K/uL Basophils # (Auto) 0.04 0-0.2 K/uL RDW Standard Deviation 58.9 36.4-46.3 fL RDW Coefficient of Variation 17.5 11.5-14.5 % Immature Granulocyte % (Auto) 0.5 % Immature Granulocyte # (Auto) 0.08 0.00-0.02 K/uL Erythrocyte Sedimentation Rate 59 0-21 mm/hr Prothrombin Time 10.8 9.0-12.0 SECONDS Prothromb Time International Ratio 1.0 0.9-1.1 Activated Partial Thromboplast Time 26.8 21.0-31.0 SECONDS Partial Thromboplastin Ratio 1.0 Bedside Lactic Acid Venous 3.04 0.90-1.70 mmol/L Test 05/09/18 22:05 Range/Units Venous Blood pH 7.36 7.36-7.41 Venous Blood Partial Pressure CO2 51 38.0-50.0 mmHg Venous Blood Partial Pressure O2 20 mmHg Venous Blood HCO3 28 mmol/L Venous Blood Oxygen Saturation < 60.0 % Venous Blood Base Excess 2.0 mEq/L Microbiology Results 05/09/18 Blood Culture, Received Pending 05/09/18 Blood Culture, Received Pending 05/09/18 Urine Culture, Received Pending Diagnostic Radiology CXR: Moderate cardiomegaly. Interval development parenchymal infiltrate left base. Lungs otherwise appear clear. 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 Multiple recent admissions due to respiratory failure related to CHF and COPD. Presents with progressive SOB and a productive cough. . She was moderately distressed and required BiPAP on arrival to the ER. Initial CXR reveals a LLL infiltrate. A low grade fever was confirmed. She denies CP, N/V, or dysuria. The pt was clinically hypovolemic at the time of admission and indeed she received a litre of fluid without any adverse effect on her respiratory status. Initial labs are notable for hyponatremia, mild MIRYAM, leukocytosis and an elevated lactic acid. The pt was last admitted for a COPD exacerbation 02/21. She had an elevated troponin at the time which was thought due to demand ischemia. 1) Cough fever and hypoxia. Likely PNM - we will have to treat for HCAP considering recent admissions. She will be placed on an oxygen protocol when she can come off of BiPAP. A repeat lactic and sputum culture is pending. 2) CHF - hypovolemic on admission - IVF provided - we will hold Lasix pending reevaluation and repeat AM labs. She will require careful volume monitoring and we will request I/O be recorded. 3) COPD - likely exacerbating hypoxia - will receive scheduled nebs and IV steroids. 4) Mild hyponatremia and MIRYAM - IVF provided - diuretics and WALTER held - reassess AM 5) CAD - trop is at baseline - no evidence of ACS - cont ASA, Plavix, Statin, B dane 6) HTN - cont Carvedilol - WALTER held due to mild MIRYAM - reassess AM 7) Anemia - Hb is slightly below baseline - no evidence of acute bleed - will trend AM 8) Moderate protein malnutrition is present - supplements will be provided DNR - SCDs - would not add Heparin to Plavix and ASA unless stay is extended due to history of ICH Total time for this admit including review of labs, meds, imaging, records - discussion with pt and ER attending - 38 min Resuscitation Status VTE Prophylaxis Will order VTE Prophylaxis: Yes
[2018-05-09 23:05] VITALS: PULSE 101; O2SAT 96
[2018-05-09] MEDS ORDERED: PIPERACILL/TAZOBAC CONSULT ACTIVE PRN (23:15)
[2018-05-09] MEDS ORDERED: VANCOMYCIN CONSULT ACTIVE PRN (23:15)
[2018-05-09] MEDS ORDERED: ONDANSETRON INJ 2 MG/ML 2 ML VIAL IV PRN (23:15)
[2018-05-09] MEDS ORDERED: ALUMINUM/MAGNESIUM/SIMETH (MAALOX MAX) 30 ML UDC PO PRN (23:15)
[2018-05-09] MEDS ORDERED: MAGNESIUM HYDROXIDE SUSP 30 ML UDC PO PRN (23:15)
[2018-05-10] VITALS (10 sets, daily range): BP systolic 91–118; BP diastolic 55–69; PULSE 67–103; TEMP 36.3–37; O2SAT 93–100; Ht 157.5 cm; Wt 56.1 kg
[2018-05-10] MEDS ORDERED: LEVOFLOXACIN CONSULT ACTIVE PRN (00:30)
[2018-05-10] MEDS ORDERED: PIPERACILL/TAZOBAC IV 3.375 GM in D5W 100ML IV ONE (00:30)
[2018-05-10] MEDS ORDERED: VANCOMYCIN IV 1,250 MG in SODIUM CHLORIDE 0.9% 250ML 250 ML IV ONE (01:00)
[2018-05-10] MEDS: ALBUT/IPRATROP 3MG/0.5MG NEB 3 ML VIAL INH SCH ×4 (02:02→19:05)
[2018-05-10] MEDS: METHYLPREDNISOLONE IV 40 MG in SYRINGE 0 ML IV SCH ×4 (04:10→21:31)
[2018-05-10] MEDS: PIPERACILL/TAZOBAC IV 3.375 GM in DEXTROSE 5% 100ML 100 ML IV SCH ×3 (05:46→23:03)
[2018-05-10 07:12] LABS: HEMATOCRIT 27.1 % (37-47); HEMOGLOBIN 8.6 g/dL (12.0-16.0); MEAN CELL VOLUME 91.9 fL (80-100); MEAN CORPUSCULAR HEMOGLOBIN 29.2 pg (25-34); MEAN CORPUSCULAR HGB CONC 31.7 g/dl (32-36); MEAN PLATELET VOLUME 8.9 fL (7.4-10.4); PLATELET COUNT 272 K/uL (130-400); RED CELL DISTRIBUTION WIDTH CV 17.6 % (11.5-14.5); RED CELL DISTRIBUTION WIDTH SD 59.1 fL (36.4-46.3); WHITE BLOOD COUNT 13.83 K/uL (4.8-10.8)
[2018-05-10 07:45] LABS: CALCIUM 8.7 mg/dl (8.5-10.1); CREATININE 1.01 mg/dl (0.60-1.20); POTASSIUM 4.3 mmol/L (3.5-5.1)
[2018-05-10] MEDS: SERTRALINE HCL 50 MG TAB PO SCH (08:23)
[2018-05-10] MEDS: CLOPIDOGREL BISULFATE 75 MG TAB PO SCH (08:23)
[2018-05-10] MEDS: FEXOFENADINE HCL 60 MG TAB PO SCH ×2 (08:24→21:30)
[2018-05-10] MEDS: CARVEDILOL 12.5 MG TAB PO SCH ×2 (08:24→16:45)
[2018-05-10] MEDS: ASPIRIN 81 MG ECTAB PO SCH (08:24)
--- NOTE | 2018-05-10 08:27 | Pharmacy Progress Note ---
Pharmacy Abx Dose Short Note Date of Service May 10, 2018. Assessment & Plan Assessment * 73 year old female admitted last evening for cough, fever, SOB * Currently being treated for CHF exac, COPD exac and CAP with risk factors for resistance (recent hospitalizations) * BLCX's and sputum cx's drawn, nasal swab was negative for MRSA lessening the likelihood of MRSA PNA * CXR read as infiltrate of L base * Renal fxn near baseline: SCr this AM down to 1.01 (baseline ~0.8-1.0) Plan Vancomycin * Load: 1250mg (~23mg/kg) IV x 1 given this AM * Maintenance dose: 1000mg (18.7mg/kg) IV Q 24 hours * Goal trough level for pneumonia : 15 to 20 mcg/mL * Trough level ordered for: 05/13/18 w/ dose * p'kinetic estimates: Vd 0.7L/kg, half-life ~18-19 hours Levofloxacin * eCrCl less than 50cc/min; continue 750mg IV Q 48 hours * no ECG scanned in medical record. Of note pt did have prolonged QTc on prior admit, however she does have pacer/defib Zosyn * eCrCl greater than 20cc/min, continue 3.375gm ext-infusion IV Q 8 hours Pharmacy will continue to follow and will adjust dose/frequency as necessary. Thank you.
[2018-05-10] MEDS: CLONAZEPAM 0.5 MG TAB PO SCH (21:29)
[2018-05-10] MEDS: ACETAMINOPHEN 325 MG TAB PO PRN (21:29)
[2018-05-10] MEDS: EZETIMIBE 10MG TAB PO SCH (21:30)
[2018-05-10] MEDS: ATORVASTATIN 40 MG TAB PO SCH (21:30)
[2018-05-10] MEDS: PRAMIPEXOLE DIHYDROCHLORIDE 0.25MG TAB PO SCH (21:30)
--- NOTE | 2018-05-10 22:12 | Progress Note ---
Subjective Date of Service: May 10, 2018. 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 Patient reports having worsening SOB and productive cough when she came in Patient reports today that she does not feel significant improvement. However, she reports breathing better today. Problem List Medical Problems: (1) Acute asthma exacerbation Status: Acute (2) Acute bronchitis Status: Acute (3) Acute exacerbation of CHF (congestive heart failure) Status: Acute (4) Acute NC Status: Acute (5) Anemia Status: Acute (6) CHF (congestive heart failure) Status: Acute (7) CHF (congestive heart failure) Status: Acute (8) CHF (congestive heart failure) Status: Acute (9) COPD (chronic obstructive pulmonary disease) Status: Acute (10) COPD with emphysema Status: Acute (11) Elevated troponin Status: Acute (12) Elevated troponin level Status: Acute (13) Facial contusion Status: Acute (14) Febrile illness, acute Status: Acute (15) Hyponatremia Status: Acute (16) Hypoxia Status: Acute (17) Influenza Status: Acute (18) Intracranial bleeding Status: Acute (19) Intractable nausea and vomiting Status: Acute (20) Lower extremity edema Status: Acute (21) Mesenteric ischemia Status: Acute (22) Mesenteric ischemia Status: Acute (23) Multiple contusions Status: Acute (24) Nausea Status: Acute (25) Pneumonia Status: Acute (26) Pulmonary edema Status: Acute (27) Pulmonary edema Status: Acute (28) Pulmonary vascular congestion Status: Acute (29) Respiratory distress Status: Acute (30) Respiratory failure Status: Acute (31) SOB (shortness of breath) Status: Acute (32) Syncope Status: Acute Review of Systems Constitutional: + fever, + weakness, No chills, No sweats Eyes: No worsening of vision ENT: No hearing loss, No unusual epistaxis, No nasal symptoms Respiratory: + cough, + sputum, + shortness of breath, + dyspnea on exertion, + dyspnea at rest Cardiovascular: No chest pain, No orthopnea, No PND Abdomen: + nausea, No pain, No vomiting Musculoskeletal: No joint pain Genitourinary - Female: No dysuria, No urinary frequency Neurologic: + weakness, No memory loss, No paralysis Psychiatric: No depression symptoms Endocrine: + fatigue Hematologic / Lymphatic: No abnormal bleeding/bruising Integumentary: No rash Allergic / Immunologic: No environmental allergies Objective Vital Signs Date Time Temp Pulse Resp B/P (MAP) Pulse Ox O2 Delivery O2 Flow Rate FiO2 05/10/18 20:00 Nasal Cannula 4.0 05/10/18 19:40 36.7 94 20 99/60 (73) 97 Nasal Cannula 4.0 05/10/18 19:05 94 20 97 Nasal Cannula 5.0 05/10/18 15:32 36.5 84 18 95/58 (70) 100 Room Air 05/10/18 14:05 79 22 94 Nasal Cannula 5.0 05/10/18 11:53 36.5 77 22 91/59 (70) 94 Nasal Cannula 5.0 05/10/18 07:50 Room Air 05/10/18 07:24 37.0 80 20 118/69 (85) 96 Nasal Cannula 4.0 05/10/18 07:14 67 20 93 Nasal Cannula 5.0 05/10/18 03:39 37.0 91 18 117/67 (84) 96 4.0 05/10/18 00:01 36.7 103 24 108/55 94 Nasal Cannula 4.0 40 05/09/18 23:31 37.1 101 22 104/48 96 05/09/18 23:05 101 96 40 05/09/18 22:31 100 22 112/80 99 BiPAP 40 Physical Exam Comments: General Appearance: WD/WN, no apparent distress Head: normocephalic Eyes: normal inspection ENT: normal ENT inspection, pharynx normal Neck: supple, no JVD Respiratory/Chest: chest non-tender, + pertinent finding (bilateral wheezing is heard) Cardiovascular: regular rate, rhythm, + systolic murmur Abdomen/GI: normal bowel sounds, non tender, soft Back: normal inspection, no CVA tenderness Extremities/Musculoskelatal: normal range of motion, + pedal edema Neurologic/Psych: wind energy engineer II-XII nml as tested, no motor/sensory deficits, alert, oriented x 3 Skin: + pertinent finding (Some petechiae are seen on the pts face and arms) Laboratory Results Last 24 Hours Test 05/10/18 00:21 05/10/18 06:29 05/10/18 13:55 Lactic Acid Level 0.8 mmol/L White Blood Count 13.83 K/uL Red Blood Count 2.95 M/uL Hemoglobin 8.6 g/dL Hematocrit 27.1 % Mean Corpuscular Volume 91.9 fL Mean Corpuscular Hemoglobin 29.2 pg Mean Corpuscular Hemoglobin Concent 31.7 g/dl RDW Standard Deviation 59.1 fL RDW Coefficient of Variation 17.6 % Platelet Count 272 K/uL Mean Platelet Volume 8.9 fL Sodium Level 135 mmol/L Potassium Level 4.3 mmol/L Chloride Level 101 mmol/L Carbon Dioxide Level 27 mmol/L Anion Gap 7.0 mmol/L Blood Urea Nitrogen 24 mg/dl Creatinine 1.01 mg/dl Est Creatinine Clear Calc Drug Dose 38.7 ml/min Estimated GFR () 63.5 Estimated GFR (Non- 54.8 BUN/Creatinine Ratio 23.4 Random Glucose 141 mg/dl Calcium Level 8.7 mg/dl Magnesium Level 2.0 mg/dl Troponin I 0.065 ng/ml Assessment and Plan 72 y/o F with complex med Hx including combined CHF (25%), chronic anemia, COPD - 3L home , CAD/NC, abdominal aortic stenosis with history of mesenteric infarct, 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 Multiple recent admissions due to respiratory failure related to CHF and COPD. Presents with progressive SOB and a productive cough. . She was moderately distressed and required BiPAP on arrival to the ER. Initial CXR reveals a LLL infiltrate. A low grade fever was confirmed. She denies CP, N/V, or dysuria. The pt was clinically hypovolemic at the time of admission and indeed she received a litre of fluid without any adverse effect on her respiratory status. Initial labs are notable for hyponatremia, mild MIRYAM, leukocytosis and an elevated lactic acid. The pt was last admitted for a COPD exacerbation 02/21. She had an elevated troponin at the time which was thought due to demand ischemia. 1) Cough fever and hypoxia. Likely PNM - we will have to treat for HCAP considering recent admissions. Patient is off BIPAP now. Lactic acid is negative. On oxygen. Patient is on vancomycin and levaquin. 2) CHF - hypovolemic on admission - IVF provided - Patient is positive 1 liter. -will resume lasix likely tomorrow or Saturday 3) COPD - likely exacerbating hypoxia - will receive scheduled nebs and IV steroids. 4) Mild hyponatremia and MIRYAM - IVF provided - diuretics and WALTER held - Acute kidney injury appears to have resolved. 5) CAD - trop is at baseline. Mild increase. Likely demand ischemia. - no evidence of ACS - cont ASA, Plavix, Statin, B dane 6) HTN - cont Carvedilol - WALTER held due to mild MIRYAM - BP at goal. 7) Anemia - Hb is slightly below baseline - no evidence of acute bleed - H and H is doing well. 8) Moderate protein malnutrition is present - supplements will be provided DNR - SCDs - would not add Heparin to Plavix and ASA unless stay is extended due to history of ICH Continued [facility] stay due to: other Discharge planning: uncertain
[2018-05-11] VITALS (11 sets, daily range): BP systolic 95–109; BP diastolic 49–69; PULSE 86–123; TEMP 36.2–36.8; O2SAT 93–99
[2018-05-11] MEDS: ALBUT/IPRATROP 3MG/0.5MG NEB 3 ML VIAL INH SCH ×4 (01:40→18:59)
[2018-05-11] MEDS ORDERED: VANCOMYCIN IV 750 MG in SODIUM CHLORIDE 0.9% 250ML 250 ML IV SCH (02:00)
[2018-05-11] MEDS: PIPERACILL/TAZOBAC IV 3.375 GM in DEXTROSE 5% 100ML 100 ML IV SCH ×3 (05:52→23:45)
[2018-05-11] MEDS: METHYLPREDNISOLONE IV 40 MG in SYRINGE 0 ML IV SCH ×4 (05:52→21:21)
[2018-05-11] MEDS: ALBUTEROL 0.083% NEBU SOLN 3 ML VIAL INH PRN ×2 (05:54→10:51)
[2018-05-11 07:19] LABS: CREATININE 1.12 mg/dl (0.60-1.20)
[2018-05-11] MEDS: FEXOFENADINE HCL 60 MG TAB PO SCH ×2 (07:53→21:22)
[2018-05-11] MEDS: ASPIRIN 81 MG ECTAB PO SCH (07:53)
[2018-05-11] MEDS: CARVEDILOL 12.5 MG TAB PO SCH ×2 (07:53→16:39)
[2018-05-11] MEDS: SERTRALINE HCL 50 MG TAB PO SCH (07:54)
[2018-05-11] MEDS: CLOPIDOGREL BISULFATE 75 MG TAB PO SCH (07:54)
[2018-05-11] MEDS: POLYETHYLENE (MIRALAX) 17 GM PACK PO PRN (17:50)
[2018-05-11] MEDS: LEVOFLOXACIN / D5W 750 MG in PREMIXED IN D5W 150 ML IV SCH (21:20)
[2018-05-11] MEDS: CLONAZEPAM 0.5 MG TAB PO SCH (21:20)
[2018-05-11] MEDS: PRAMIPEXOLE DIHYDROCHLORIDE 0.25MG TAB PO SCH (21:21)
[2018-05-11] MEDS: ACETAMINOPHEN 325 MG TAB PO PRN (21:21)
[2018-05-11] MEDS: EZETIMIBE 10MG TAB PO SCH (21:22)
[2018-05-11] MEDS: ATORVASTATIN 40 MG TAB PO SCH (21:22)
--- NOTE | 2018-05-11 23:33 | Progress Note ---
Subjective Date of Service: May 11, 2018. Subjective Pt evaluation today including: conversation w/ patient Bisi reports only mild movement today. She states that she continues to feel short of breath and is coughing intermittently. Problem List Medical Problems: (1) Acute asthma exacerbation Status: Acute (2) Acute bronchitis Status: Acute (3) Acute exacerbation of CHF (congestive heart failure) Status: Acute (4) Acute ND Status: Acute (5) Anemia Status: Acute (6) CHF (congestive heart failure) Status: Acute (7) CHF (congestive heart failure) Status: Acute (8) CHF (congestive heart failure) Status: Acute (9) COPD (chronic obstructive pulmonary disease) Status: Acute (10) COPD with emphysema Status: Acute (11) Elevated troponin Status: Acute (12) Elevated troponin level Status: Acute (13) Facial contusion Status: Acute (14) Febrile illness, acute Status: Acute (15) Hyponatremia Status: Acute (16) Hypoxia Status: Acute (17) Influenza Status: Acute (18) Intracranial bleeding Status: Acute (19) Intractable nausea and vomiting Status: Acute (20) Lower extremity edema Status: Acute (21) Mesenteric ischemia Status: Acute (22) Mesenteric ischemia Status: Acute (23) Multiple contusions Status: Acute (24) Nausea Status: Acute (25) Pneumonia Status: Acute (26) Pulmonary edema Status: Acute (27) Pulmonary edema Status: Acute (28) Pulmonary vascular congestion Status: Acute (29) Respiratory distress Status: Acute (30) Respiratory failure Status: Acute (31) SOB (shortness of breath) Status: Acute (32) Syncope Status: Acute Review of Systems Constitutional: + fever, + weakness, No chills, No sweats Eyes: No worsening of vision ENT: No hearing loss, No unusual epistaxis, No nasal symptoms Respiratory: + cough, + sputum, + shortness of breath, + dyspnea on exertion, + dyspnea at rest Cardiovascular: No chest pain, No orthopnea, No PND Abdomen: + nausea, No pain, No vomiting Musculoskeletal: No joint pain Genitourinary - Female: No dysuria, No urinary frequency Neurologic: + weakness, No memory loss, No paralysis Psychiatric: No depression symptoms Endocrine: + fatigue Hematologic / Lymphatic: No abnormal bleeding/bruising Integumentary: No rash Allergic / Immunologic: No environmental allergies Objective Vital Signs Date Time Temp Pulse Resp B/P (MAP) Pulse Ox O2 Delivery O2 Flow Rate FiO2 05/11/18 19:23 36.5 90 18 109/69 (82) 95 Nasal Cannula 4.0 05/11/18 18:59 101 20 95 Nasal Cannula 4.0 05/11/18 15:46 36.4 91 18 95/49 (64) 96 Nasal Cannula 4.0 05/11/18 13:39 86 20 98 Nasal Cannula 4.0 05/11/18 12:00 36.8 95 22 102/49 (66) 96 Nasal Cannula 4.0 05/11/18 10:52 101 20 94 Nasal Cannula 4.0 05/11/18 08:05 Nasal Cannula 4.0 05/11/18 06:44 36.2 98 22 106/69 (81) 96 Nasal Cannula 4.0 05/11/18 05:54 123 20 93 Nasal Cannula 4.0 05/11/18 04:08 36.8 95 20 103/62 (76) 95 Nasal Cannula 4.0 05/11/18 01:40 102 20 95 Nasal Cannula 4.0 Physical Exam Comments: General Appearance: WD/WN, no apparent distress Head: normocephalic Eyes: normal inspection ENT: normal ENT inspection, pharynx normal Neck: supple, no JVD Respiratory/Chest: chest non-tender, + pertinent finding (bilateral wheezing is heard) Cardiovascular: regular rate, rhythm, + systolic murmur Abdomen/GI: normal bowel sounds, non tender, soft Back: normal inspection, no CVA tenderness Extremities/Musculoskelatal: normal range of motion, + pedal edema Neurologic/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 Multiple recent admissions due to respiratory failure related to CHF and COPD. Presents with progressive SOB and a productive cough. . She was moderately distressed and required BiPAP on arrival to the ER. Initial CXR reveals a LLL infiltrate. A low grade fever was confirmed. She denies CP, N/V, or dysuria. The pt was clinically hypovolemic at the time of admission and indeed she received a litre of fluid without any adverse effect on her respiratory status. Initial labs are notable for hyponatremia, mild MIRYAM, leukocytosis and an elevated lactic acid. The pt was last admitted for a COPD exacerbation 02/21. She had an elevated troponin at the time which was thought due to demand ischemia. 1) Cough fever and hypoxia. Likely PNM - we will have to treat for HCAP considering recent admissions. Patient is off BIPAP now. Lactic acid is negative. On oxygen. Patient is on zosyn and Levaquin. Vanco was stopped. Patient only has mild improvement. She is still coughing. Will place patient on incentive spirometry and vibration vest. 2) CHF - hypovolemic on admission - IVF provided - Patient is positive 1 liter. -will resume Lasix likely tomorrow 3) COPD - likely exacerbating hypoxia - will receive scheduled nebs and IV steroids. 4) Mild hyponatremia and MIRYAM - IVF provided - diuretics and WALTER held - Acute kidney injury appears to have resolved. 5) CAD - trop is at baseline. Mild increase. Likely demand ischemia. - no evidence of ACS - cont ASA, Plavix, Statin, B dane 6) HTN - cont Carvedilol - WALTER held due to mild MIRYAM - BP at goal. 7) Anemia - Hb is slightly below baseline - no evidence of acute bleed - H and H is doing well. 8) Moderate protein malnutrition is present - supplements will be provided DNR - SCDs - would not add Heparin to Plavix and ASA unless stay is extended due to history of ICH Continued [facility] stay due to: other Discharge planning: uncertain
[2018-05-12] VITALS (10 sets, daily range): BP systolic 121–131; BP diastolic 67–77; PULSE 75–118; TEMP 36.4–36.9; O2SAT 92–100
[2018-05-12] MEDS: ALBUT/IPRATROP 3MG/0.5MG NEB 3 ML VIAL INH SCH ×4 (02:20→19:16)
[2018-05-12] MEDS: METHYLPREDNISOLONE IV 40 MG in SYRINGE 0 ML IV SCH ×4 (04:31→22:37)
[2018-05-12] MEDS: PIPERACILL/TAZOBAC IV 3.375 GM in DEXTROSE 5% 100ML 100 ML IV SCH ×3 (06:29→22:36)
[2018-05-12 07:03] LABS: CREATININE 1.2 mg/dl (0.60-1.20)
[2018-05-12] MEDS: CARVEDILOL 12.5 MG TAB PO SCH ×2 (07:50→17:14)
[2018-05-12] MEDS: FEXOFENADINE HCL 60 MG TAB PO SCH ×2 (09:10→20:41)
[2018-05-12] MEDS: ASPIRIN 81 MG ECTAB PO SCH (09:10)
[2018-05-12] MEDS: CLOPIDOGREL BISULFATE 75 MG TAB PO SCH (09:11)
[2018-05-12] MEDS: SERTRALINE HCL 50 MG TAB PO SCH (09:11)
--- NOTE | 2018-05-12 12:44 | Clinical Documentation Query ---
FELISHA Brock : CLINICAL DOCUMENTATION QUERIES QUERY 1 OF 2 Patient is a 72 year old female with oxygen dependent COPD, with recent hospital admission, whom required Bi-PAP therapy with supplemental oxygen to support respiratory efforts in the setting of pneumonia. Documentation includes HCAP. As appropriate, consider specification of this HCAP as suggested below as this impacts accurate DRG assignment. Thank you. In your clinical opinion is this patient being managed for: (x ) (Possible) Gram-negative pneumonia ( ) Not Agree ( ) Other explanation of clinical findings (No explanation is considered a No Response) ( ) Unable to determine ( ) Need to Discuss (Phone CDS or qliq) (No discussion is considered a No Response) The medical record reflects the following clinical findings, treatment, and risk factors. Clinical Indicators: As above Treatment: Zosyn, Levaquin, sputum culture, nebs, steroids, Bi-PAP, supplemental oxygen Risk Factors: Age, recent hospitalization, CHF, COPD QUERY 2 OF 2 Notation of 2L/min of oxygen at home at baseline. On the day prior to admission, oxygen was doubled to 4L/min. ER provider noted "uncomfortable appearing", "There is significant tachypnea and conversational dyspnea", and "appears to be in significant distress". Respirations as high as 32/minute. Ultimately Bi-PAP therapy was utilized. As appropriate, consider documentation as suggested below in order to capture the severity of illness and associated risk of mortality. In your clinical opinion is this patient being managed for: ( x ) Acute and chronic respiratory failure with hypoxia ( ) Not Agree ( ) Other explanation of clinical findings (No explanation is considered a No Response) ( ) Unable to determine ( ) Need to Discuss (Phone CDS or qliq) (No discussion is considered a No Response) The medical record reflects the following clinical findings, treatment, and risk factors. Clinical Indicators: As above Treatment: Increased oxygen supplementation, Bi-PAP, nebulizers, antibiotics, telemetry Risk Factors: COPD, pneumonia, ischemic cardiomyopathy Please clarify and document your clinical opinion in the progress notes and discharge summary. Terms such as "probable", "suspected", "likely", "questionable", "possible", or "still to be ruled out" are acceptable. IF IN AGREEMENT, YOU MUST DOCUMENT ABOVE DIAGNOSTIC STATEMENT IN DAILY PROGRESS NOTES AND DISCHARGE SUMMARY. This document is not part of the patient's record. Thank You, Florencio Sims, RN [phone]
[2018-05-12 13:50] LABS: HEMATOCRIT 27.1 % (37-47); HEMOGLOBIN 8.5 g/dL (12.0-16.0); MEAN CELL VOLUME 92.2 fL (80-100); MEAN CORPUSCULAR HEMOGLOBIN 28.9 pg (25-34); MEAN CORPUSCULAR HGB CONC 31.4 g/dl (32-36); MEAN PLATELET VOLUME 8.8 fL (7.4-10.4); PLATELET COUNT 329 K/uL (130-400); RED CELL DISTRIBUTION WIDTH CV 17.1 % (11.5-14.5); RED CELL DISTRIBUTION WIDTH SD 58.1 fL (36.4-46.3); WHITE BLOOD COUNT 12.01 K/uL (4.8-10.8)
[2018-05-12 14:08] LABS: BASO % 0.1 %; BASO ABS # 0.01 K/uL (0-0.2); IG# 0.06 K/uL (0.00-0.02); LYMPH % 3.7 %; LYMPH ABS # 0.45 K/uL (1.2-3.4); MONO % 3.3 %; NEUT % 92.4 %; NEUT ABS # 11.09 K/uL (1.4-6.5)
--- NOTE | 2018-05-12 14:55 | DIAGNOSTIC IMAGING REPORT ---
CHEST 2 VIEWS ROUTINE HISTORY: pneumonia COMPARISON: Chest 05/09/2018. FINDINGS: The lungs remain hyperexpanded with apical predominant emphysematous changes. The heart remains mildly enlarged. Left-sided pacemaker/defibrillator. No pneumothorax. Small bilateral pleural effusions have progressed. Left basilar airspace opacity has improved. Mild interstitial thickening at the lung bases suggests congestive change. This remains unchanged. IMPRESSION: 1. Interval progression of the small bilateral pleural effusions. 2. Cardiomegaly with mild congestive change persists. 3. Left basilar airspace opacity has improved. Electronically signed by: Alverto Pereira M.D. 05/12/2018 2:54 PM Dictated Date/Time: 05/12/2018 2:52 PM
[2018-05-12] MEDS: HEPARIN SOD 5000 UNIT/0.5 ML CARP SQ SCH ×2 (16:23→22:35)
[2018-05-12] MEDS: PRAMIPEXOLE DIHYDROCHLORIDE 0.25MG TAB PO SCH (20:41)
[2018-05-12] MEDS: EZETIMIBE 10MG TAB PO SCH (20:41)
[2018-05-12] MEDS: ATORVASTATIN 40 MG TAB PO SCH (20:41)
[2018-05-12] MEDS: CLONAZEPAM 0.5 MG TAB PO SCH (20:43)
[2018-05-13] VITALS (8 sets, daily range): BP systolic 107–126; BP diastolic 57–72; PULSE 78–92; TEMP 36.3–36.4; O2SAT 97–100
[2018-05-13] MEDS ORDERED: VANCOMYCIN TROUGH ONE (01:30)
[2018-05-13] MEDS: ALBUT/IPRATROP 3MG/0.5MG NEB 3 ML VIAL INH SCH ×4 (01:54→19:00)
[2018-05-13] MEDS: METHYLPREDNISOLONE IV 40 MG in SYRINGE 0 ML IV SCH ×3 (03:36→15:14)
--- NOTE | 2018-05-13 06:05 | Progress Note ---
Subjective Date of Service: May 12, 2018. Subjective Pt evaluation today including: conversation w/ patient, physical exam Patient seen and examined at 14:00 on 05/12/18 73 yo female reports no significant improvement since she has been here. Patient reports still having cough and shortness of breath. No new symptoms Problem List Medical Problems: (1) Acute asthma exacerbation Status: Acute (2) Acute bronchitis Status: Acute (3) Acute exacerbation of CHF (congestive heart failure) Status: Acute (4) Acute [place] Status: Acute (5) Anemia Status: Acute (6) CHF (congestive heart failure) Status: Acute (7) CHF (congestive heart failure) Status: Acute (8) CHF (congestive heart failure) Status: Acute (9) COPD (chronic obstructive pulmonary disease) Status: Acute (10) COPD with emphysema Status: Acute (11) Elevated troponin Status: Acute (12) Elevated troponin level Status: Acute (13) Facial contusion Status: Acute (14) Febrile illness, acute Status: Acute (15) Hyponatremia Status: Acute (16) Hypoxia Status: Acute (17) Influenza Status: Acute (18) Intracranial bleeding Status: Acute (19) Intractable nausea and vomiting Status: Acute (20) Lower extremity edema Status: Acute (21) Mesenteric ischemia Status: Acute (22) Mesenteric ischemia Status: Acute (23) Multiple contusions Status: Acute (24) Nausea Status: Acute (25) Pneumonia Status: Acute (26) Pulmonary edema Status: Acute (27) Pulmonary edema Status: Acute (28) Pulmonary vascular congestion Status: Acute (29) Respiratory distress Status: Acute (30) Respiratory failure Status: Acute (31) SOB (shortness of breath) Status: Acute (32) Syncope Status: Acute Review of Systems Constitutional: + fever, + weakness, No chills, No sweats Eyes: No worsening of vision ENT: No hearing loss, No unusual epistaxis, No nasal symptoms Respiratory: + cough, + sputum, + shortness of breath, + dyspnea on exertion, + dyspnea at rest Cardiovascular: No chest pain, No orthopnea, No PND Abdomen: + nausea, No pain, No vomiting Musculoskeletal: No joint pain Genitourinary - Female: No dysuria, No urinary frequency Neurologic: + weakness, No memory loss, No paralysis Psychiatric: No depression symptoms Endocrine: + fatigue Hematologic / Lymphatic: No abnormal bleeding/bruising Integumentary: No rash Allergic / Immunologic: No environmental allergies Objective Vital Signs Date Time Temp Pulse Resp B/P (MAP) Pulse Ox O2 Delivery O2 Flow Rate FiO2 05/13/18 00:08 36.3 81 18 126/72 (90) 100 Room Air 05/13/18 00:00 Nasal Cannula 4.0 05/12/18 19:20 91 20 98 Nasal Cannula 4.0 05/12/18 17:15 Nasal Cannula 4.0 05/12/18 15:35 36.4 94 20 126/71 (89) 100 Nasal Cannula 4.0 05/12/18 15:34 36.8 81 26 98 4.0 05/12/18 13:14 81 26 98 Nasal Cannula 4.0 05/12/18 12:00 95 Nasal Cannula 4.0 05/12/18 11:45 36.8 89 18 121/77 (92) 95 05/12/18 07:35 Nasal Cannula 4.0 05/12/18 07:16 36.9 75 16 131/76 (94) 96 05/12/18 07:14 118 22 92 Nasal Cannula 4.0 Physical Exam Comments: General Appearance: WD/WN, no apparent distress Head: normocephalic Eyes: normal inspection ENT: normal ENT inspection, pharynx normal Neck: supple, no JVD Respiratory/Chest: chest non-tender, + pertinent finding (bilateral wheezing is heard) Cardiovascular: regular rate, rhythm, + systolic murmur Abdomen/GI: normal bowel sounds, non tender, soft Back: normal inspection, no CVA tenderness Extremities/Musculoskelatal: normal range of motion, + pedal edema Neurologic/Psych: cfa II-XII nml as tested, no motor/sensory deficits, alert, oriented x 3 Skin: + pertinent finding (Some petechiae are seen on the pts face and arms) Laboratory Results Last 24 Hours Test 05/12/18 06:23 05/12/18 08:33 05/12/18 08:46 05/13/18 04:44 Creatinine 1.20 mg/dl Est Creatinine Clear Calc Drug Dose 32.5 ml/min Estimated GFR () 51.6 Estimated GFR (Non- 44.5 Troponin I 0.048 ng/ml White Blood Count 12.01 K/uL Red Blood Count 2.94 M/uL Hemoglobin 8.5 g/dL Hematocrit 27.1 % Mean Corpuscular Volume 92.2 fL Mean Corpuscular Hemoglobin 28.9 pg Mean Corpuscular Hemoglobin Concent 31.4 g/dl Platelet Count 329 K/uL Mean Platelet Volume 8.8 fL Neutrophils (%) (Auto) 92.4 % Lymphocytes (%) (Auto) 3.7 % Monocytes (%) (Auto) 3.3 % Eosinophils (%) (Auto) 0.0 % Basophils (%) (Auto) 0.1 % Neutrophils # (Auto) 11.09 K/uL Lymphocytes # (Auto) 0.45 K/uL Monocytes # (Auto) 0.40 K/uL Eosinophils # (Auto) 0.00 K/uL Basophils # (Auto) 0.01 K/uL RDW Standard Deviation 58.1 fL RDW Coefficient of Variation 17.1 % Immature Granulocyte % (Auto) 0.5 % Immature Granulocyte # (Auto) 0.06 K/uL Nucleated RBC Absolute Count (auto) 0.00 K/uL Nucleated Red Blood Cells % 0.0 % Ovalocytes 1+ Echinocytes 1+ Assessment and Plan 72 y/o F with complex med Hx including combined CHF (25%), chronic anemia, COPD - 3L home , CAD/MN, abdominal aortic stenosis with history of mesenteric infarct, 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 Multiple recent admissions due to respiratory failure related to CHF and COPD. Presents with progressive SOB and a productive cough. . She was moderately distressed and required BiPAP on arrival to the ER. Initial CXR reveals a LLL infiltrate. A low grade fever was confirmed. She denies CP, N/V, or dysuria. The pt was clinically hypovolemic at the time of admission and indeed she received a litre of fluid without any adverse effect on her respiratory status. Initial labs are notable for hyponatremia, mild MIRYAM, leukocytosis and an elevated lactic acid. The pt was last admitted for a COPD exacerbation 02/21. She had an elevated troponin at the time which was thought due to demand ischemia. 1) (Possible) Gram-negative pneumonia with Acute and chronic respiratory failure with hypoxia As patient has cough fever and hypoxia. - we will have to treat for HCAP considering recent admissions. Patient is off BIPAP now. Lactic acid is negative. Continues to require oxygen. Patient is on zosyn and Levaquin. Vanco was stopped as MRSA screen was negative. Antibiotics started on 8/3/18 Patient only has mild improvement. She is still coughing. Placed patient on incentive spirometry and vibration vest on 05-11-18 Will repeat x-ray due to lack of improvement. 2) CHF - hypovolemic on admission - IVF provided -reordered lasix today -Patient is currently positive 3 liters. -Will monitor I's and O's. -Perhaps this is placing role in her lack of improvement. -If tomorrow is not improving, may consider more aggressive diuresis. 3) COPD - likely exacerbating hypoxia - will receive scheduled nebs and IV steroids. 4) Mild hyponatremia and MIRYAM - IVF provided - diuretics and WALTER held - Acute kidney injury appears to have resolved. 5) CAD - trop is at baseline. Mild increase. Likely demand ischemia. - no evidence of ACS - cont ASA, Plavix, Statin, B dane 6) HTN - cont Carvedilol - WALTER held due to mild MIRYAM - BP at goal. 7) Anemia - Hb is slightly below baseline - no evidence of acute bleed - H and H is doing well. 8) Moderate protein malnutrition is present - supplements will be provided DNR - SCDs and heparin -Due to extended stay, I added Heparin to Plavix and ASA despite history of ICH Continued [facility] stay due to: other Discharge planning: uncertain
[2018-05-13] MEDS: PIPERACILL/TAZOBAC IV 3.375 GM in DEXTROSE 5% 100ML 100 ML IV SCH ×2 (06:14→15:10)
[2018-05-13] MEDS: HEPARIN SOD 5000 UNIT/0.5 ML CARP SQ SCH ×3 (06:15→20:47)
[2018-05-13] MEDS: FUROSEMIDE 40 MG TAB PO SCH ×2 (07:44→17:03)
[2018-05-13] MEDS: CLOPIDOGREL BISULFATE 75 MG TAB PO SCH (07:44)
[2018-05-13] MEDS: ASPIRIN 81 MG ECTAB PO SCH (07:44)
[2018-05-13] MEDS: CARVEDILOL 12.5 MG TAB PO SCH ×2 (07:45→17:04)
[2018-05-13] MEDS: FEXOFENADINE HCL 60 MG TAB PO SCH ×2 (07:45→20:41)
[2018-05-13] MEDS: SERTRALINE HCL 50 MG TAB PO SCH (07:45)
[2018-05-13 08:18] LABS: CREATININE 1.13 mg/dl (0.60-1.20)
--- NOTE | 2018-05-13 16:03 | Progress Note ---
Subjective Date of Service: May 13, 2018. Subjective Pt evaluation today including: conversation w/ patient, physical exam, lab review, review of inpatient medication list Pain: no pain PO Intake: adequate Voiding: no voiding problems patient feeling better today, asking to go home discussed that her lungs are not clear, still on IV steroids discussed changing to Prednisone tomorrow, seeing how she feels appetite is decent but not great, does not eat well at baseline Problem List Medical Problems: (1) Acute asthma exacerbation Status: Acute (2) Acute bronchitis Status: Acute (3) Acute exacerbation of CHF (congestive heart failure) Status: Acute (4) Acute NV Status: Acute (5) Anemia Status: Acute (6) CHF (congestive heart failure) Status: Acute (7) CHF (congestive heart failure) Status: Acute (8) CHF (congestive heart failure) Status: Acute (9) COPD (chronic obstructive pulmonary disease) Status: Acute (10) COPD with emphysema Status: Acute (11) Elevated troponin Status: Acute (12) Elevated troponin level Status: Acute (13) Facial contusion Status: Acute (14) Febrile illness, acute Status: Acute (15) Hyponatremia Status: Acute (16) Hypoxia Status: Acute (17) Influenza Status: Acute (18) Intracranial bleeding Status: Acute (19) Intractable nausea and vomiting Status: Acute (20) Lower extremity edema Status: Acute (21) Mesenteric ischemia Status: Acute (22) Mesenteric ischemia Status: Acute (23) Multiple contusions Status: Acute (24) Nausea Status: Acute (25) Pneumonia Status: Acute (26) Pulmonary edema Status: Acute (27) Pulmonary edema Status: Acute (28) Pulmonary vascular congestion Status: Acute (29) Respiratory distress Status: Acute (30) Respiratory failure Status: Acute (31) SOB (shortness of breath) Status: Acute (32) Syncope Status: Acute Review of Systems Constitutional: + weakness, + fatigue Respiratory: + cough, + shortness of breath, + dyspnea on exertion All Other Systems: Reviewed and Negative Medications Current Inpatient Medications Medications (Trade) Dose Ordered Sig/Osmani Route Start Time Stop Time Status Last Admin Dose Admin Acetaminophen (Tylenol Tab) 650 mg Q4H PRN PO 05/09/18 23:15 06/08/18 23:14 05/11/18 21:21 650 MG Al Hydrox/Mg Hydrox/Simethicone (Maalox Max Susp) 15 ml Q4H PRN PO 05/09/18 23:15 06/08/18 23:14 Magnesium Hydroxide (Milk Of Magnesia Susp) 30 ml Q12H PRN PO 05/09/18 23:15 06/08/18 23:14 Ondansetron HCl (Zofran Inj) 4 mg Q6H PRN IV 05/09/18 23:15 06/08/18 23:14 Polyethylene (Miralax Powder Packet) 17 gm DAILY PRN PO 05/09/18 23:15 06/08/18 23:14 05/11/18 17:50 17 GM Piperacillin Sod/ Tazobactam Sod 3.375 gm/Dextrose 115 ml @ 28.75 mls/ hr Q8H IV 05/10/18 06:00 05/17/18 05:59 05/13/18 15:10 28.75 MLS/HR Miscellaneous Information (Consult) 1 ea UD PRN N/A 05/09/18 23:15 06/08/18 23:14 Levofloxacin 750 mg/Prmx 150 ml @ 100 mls/hr Q48H IV 05/11/18 22:00 05/18/18 21:59 05/11/18 21:20 100 MLS/HR Albuterol/ Ipratropium (Duoneb) 3 ml Q6R INH 05/10/18 03:00 06/09/18 02:59 05/13/18 13:52 3 ML Albuterol Sulfate (Ventolin 0.083% 2.5MG/3ML Neb) 2.5 mg Q4H PRN INH 05/09/18 23:15 06/08/18 23:14 05/11/18 10:51 2.5 MG Methylprednisolone Sodium Succinate 40 mg/Syringe 0.64 ml @ 1.5 mls/min Q6H IV 05/10/18 04:00 06/09/18 03:59 05/13/18 15:14 1.5 MLS/MIN Aspirin (Ecotrin Tab) 81 mg DAILY PO 05/10/18 09:00 06/09/18 08:59 05/13/18 07:44 81 MG Atorvastatin Calcium (Lipitor Tab) 80 mg HS PO 05/10/18 21:00 06/09/18 20:59 05/12/18 20:41 80 MG Carvedilol (Coreg Tab) 18.75 mg BIDM PO 05/10/18 07:30 06/09/18 07:59 05/13/18 07:45 18.75 MG Clonazepam (Klonopin Tab) 0.5 mg HS PO 05/10/18 21:00 06/09/18 20:59 05/12/18 20:43 0.5 MG Clopidogrel Bisulfate (plAVix TAB) 75 mg DAILY PO 05/10/18 09:00 06/09/18 08:59 05/13/18 07:44 75 MG EZETIMIBE (Zetia Tab) 10 mg HS PO 05/10/18 21:00 06/09/18 20:59 05/12/18 20:41 10 MG Fexofenadine HCl (Marilyn Tab) 60 mg BID PO 05/10/18 09:00 06/09/18 08:59 05/13/18 07:45 60 MG Pramipexole Dihydrochloride (miraPEX TAB) 0.25 mg HS PO 05/10/18 21:00 06/09/18 20:59 05/12/18 20:41 0.25 MG Sertraline HCl (Zoloft Tab) 50 mg DAILY PO 05/10/18 09:00 06/09/18 08:59 05/13/18 07:45 50 MG Levofloxacin (Consult) 1 ea UD PRN N/A 05/10/18 00:30 06/09/18 00:29 Heparin Sodium (Porcine) (Heparin Sq 5000 Unit/0.5ml) 5,000 unit Q8 SQ 05/12/18 14:00 06/11/18 13:59 05/13/18 06:15 5,000 UNIT Furosemide (Lasix Tab) 40 mg BID17 PO 05/13/18 09:00 06/12/18 08:59 05/13/18 07:44 40 MG Objective Vital Signs Date Time Temp Pulse Resp B/P (MAP) Pulse Ox O2 Delivery O2 Flow Rate FiO2 05/13/18 15:18 36.3 87 24 110/63 (79) 100 Nasal Cannula 4.0 05/13/18 13:57 83 20 98 Nasal Cannula 4.0 05/13/18 08:16 36.3 92 24 113/57 (75) 98 Nasal Cannula 4.0 05/13/18 08:00 Nasal Cannula 4.0 05/13/18 07:08 78 20 98 Nasal Cannula 4.0 05/13/18 00:08 36.3 81 18 126/72 (90) 100 Room Air 05/13/18 00:00 Nasal Cannula 4.0 05/12/18 19:20 91 20 98 Nasal Cannula 4.0 05/12/18 17:15 Nasal Cannula 4.0 Physical Exam General Appearance: no apparent distress, + thin Eyes: normal inspection, EOMI, sclerae normal ENT: normal ENT inspection, hearing grossly normal, pharynx normal Neck: supple, no adenopathy, no JVD, trachea midline Respiratory/Chest: chest non-tender, + decreased breath sounds, + rhonchi, + wheezing Cardiovascular: regular rate, rhythm, no edema, no gallop, no JVD, no murmur Abdomen: normal bowel sounds, non tender, soft, no organomegaly Extremities: normal range of motion, non-tender, normal inspection, no pedal edema, no calf tenderness, pelvis stable Neurologic/Psychiatric: rack maker II-XII nml as tested, no motor/sensory deficits, alert, normal mood/affect, oriented x 3 Skin: normal color, warm/dry, no rash Laboratory Results Last 24 Hours Test 05/13/18 07:18 Creatinine 1.13 mg/dl Est Creatinine Clear Calc Drug Dose 34.6 ml/min Estimated GFR () 55.4 Estimated GFR (Non- 47.8 Assessment and Plan 72 y/o F with complex med Hx including combined CHF (25%), chronic anemia, COPD - 3L home 02, CAD/NV, abdominal aortic stenosis with history of mesenteric infarct, 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 Multiple recent admissions due to respiratory failure related to CHF and COPD. Presents with progressive SOB and a productive cough. . She was moderately distressed and required BiPAP on arrival to the ER. Initial CXR reveals a LLL infiltrate. A low grade fever was confirmed. She denies CP, N/V, or dysuria. The pt was clinically hypovolemic at the time of admission and indeed she received a litre of fluid without any adverse effect on her respiratory status. Initial labs are notable for hyponatremia, mild MIRYAM, leukocytosis and an elevated lactic acid. The pt was last admitted for a COPD exacerbation 02/21. She had an elevated troponin at the time which was thought due to demand ischemia. - Gram negative pneumonia, COPD exacerbation, acute on chronic hypoxic respiratory failure improving slowly, says she wants to go home but discussed that she is not ready will change Solu Medrol to Prednisone tomorrow, 50mg daily d/c Zosyn, will continue Levaquin continue supplemental oxygen, uses at home re-evaluate tomorrow for discharge - Chronic systolic heart failure: euvolemic, continue Lasix no rales on exam, no JVD monitor closely for volume overload - Mild hyponatremia and MIRYAM resolved with IV fluids and holding WALTER Cr at baseline, Lasix resumed 5) CAD - trop is at baseline. Mild increase. Likely demand ischemia. - no evidence of ACS - cont ASA, Plavix, Statin, B dane 6) HTN - cont Carvedilol - WALTER held due to mild MIRYAM - BP at goal. 7) Anemia - Hb is slightly below baseline - no evidence of acute bleed - H/H down slightly 8) Moderate protein malnutrition is present - supplements will be provided DNR - SCDs and heparin anticipate d/c to home in 24-48 hours Continued [facility] stay due to: other Discharge planning: uncertain
[2018-05-13] MEDS: POLYETHYLENE (MIRALAX) 17 GM PACK PO PRN (16:26)
[2018-05-13] MEDS: CLONAZEPAM 0.5 MG TAB PO SCH (20:40)
[2018-05-13] MEDS: ATORVASTATIN 40 MG TAB PO SCH (20:41)
[2018-05-13] MEDS: EZETIMIBE 10MG TAB PO SCH (20:42)
[2018-05-13] MEDS: PRAMIPEXOLE DIHYDROCHLORIDE 0.25MG TAB PO SCH (20:42)
[2018-05-13] MEDS ORDERED: METHYLPREDNISOLONE IV 40 MG in SYRINGE 0 ML IV SCH (21:00)
[2018-05-13] MEDS: LEVOFLOXACIN / D5W 750 MG in PREMIXED IN D5W 150 ML IV SCH (21:55)
[2018-05-14] VITALS: O2SAT 99
[2018-05-14] MEDS: ALBUT/IPRATROP 3MG/0.5MG NEB 3 ML VIAL INH SCH ×3 (02:11→14:37)
[2018-05-14] MEDS: HEPARIN SOD 5000 UNIT/0.5 ML CARP SQ SCH ×2 (05:59→08:29)
[2018-05-14 07:10] VITALS: BP 170/77; PULSE 61; PULSE 83; TEMP 36.6; O2SAT 96; O2SAT 99
[2018-05-14] MEDS: FUROSEMIDE 40 MG TAB PO SCH (08:28)
[2018-05-14] MEDS: FEXOFENADINE HCL 60 MG TAB PO SCH (08:29)
[2018-05-14] MEDS: CARVEDILOL 12.5 MG TAB PO SCH (08:29)
[2018-05-14] MEDS: ASPIRIN 81 MG ECTAB PO SCH (08:29)
[2018-05-14] MEDS: CLOPIDOGREL BISULFATE 75 MG TAB PO SCH (08:30)
[2018-05-14] MEDS: SERTRALINE HCL 50 MG TAB PO SCH (08:30)
[2018-05-14] MEDS: POLYETHYLENE (MIRALAX) 17 GM PACK PO PRN (13:59)
[2018-05-14] MEDS ORDERED: SPRIN/30 INH (14:55)
[2018-05-14] MEDS ORDERED: LEVO1TAB35 PO (14:55)
[2018-05-14] MEDS ORDERED: PRED10TA PO (14:55)
--- NOTE | 2018-05-14 15:01 | Discharge Instructions ---
Discharge Instructions Date of Service May 14, 2018. Admission Reason for Admission: Copd Exacerbation,Left Lower Lobe Pneumonia Discharge Discharge Diagnosis / Problem: COPD exacerbation, pneumonia Discharge Goals Goal(s): Improve function, Improve disease control Activity Recommendations Activity Limitations: per Instructions/Follow-up section Lifting Limitations: none Shower/Bathe: no limitations Driving or Machine Use: no driving for 5 days until you are breathing better . Instructions / Follow-Up Instructions / Follow-Up Medications: - PREDNISONE: starting tomorrow AM, 50mg daily x 3 days then 40mg x 3 days then 30mg x 3 days then 20mg x 3 days then 10mg x 3 days then stop - LEVAQUIN: 750mg daily x 2 more days - SPIRIVA: one inhalation daily, this is a new maintenance medication COPD, pneumonia complete the above Prednisone and Levaquin treatments for the flare up of your COPD your oxygen levels are at baseline for you The following medications you need to continue to take EVERY DAY for maintenance of COPD and prevent re-admissions to the hospital - ADVAIR: take twice a day - SPIRIVA: take once a day - COMBIVENT: use four times a day - OXYGEN: continuous Heart failure: no signs of volume overload, heart failure is chronic but stable , continue Lasix, Lisinopril, Coreg FOLLOW UP - "Please, follow up at Dr. Edwards's office with Brenda Haque PA-C on SaturdayMay 20 at 10:45 am. *If you need to change this appointment, call the office at [phone]." Current Hospital Diet Patient's current hospital diet: AHA Diet (Heart Healthy) Discharge Diet Recommended Diet: AHA Diet (Heart Healthy) Pending Studies Studies pending at discharge: no Laboratory Results Hemoglobin A1c Test 02/13/18 04:56 Range/Units Estimated Average Glucose 143 mg/dl Hemoglobin A1c 6.6 H 4.5-5.6 % Medical Emergencies . Who to Call and When: Medical Emergencies: If at any time you feel your situation is an emergency, please call 911 immediately. . Non-Emergent Contact Non-Emergency issues call your: Primary Care Provider Call Non-Emergent contact if: you have any medication questions . . "Provider Documentation" section prepared by Kristopher [facility] Monitoring Program Search Results: no issues identified
[2018-05-14 15:09] VITALS: BP 170/77; PULSE 83; TEMP 36.6; O2SAT 96
--- NOTE | 2018-05-15 08:01 | Discharge Summary ---
Discharge Summary Date of Service May 15, 2018. Discharge Summary Admission Date: May 09, 2018 at 23:08 Discharge Date: May 14, 2018 Discharge Disposition: Home Principal Diagnosis: COPD exacerbation Problems/Secondary Diagnoses: Left lower lobe pneumonia Chronic hypoxic respiratory failure Acute hypoxic respiratory failure Chronic systolic heart failure Immunizations: Have You Had Influenza Vaccine: Yes Influenza Vaccine Date: Oct 12, 2012 History of Tetanus Vaccine?: Unknown History of Pneumococcal: Unknown History of Hepatitis B Vaccine: No Procedures: none Consultations: none Medication Reconciliation New Medications: Levofloxacin (Levaquin) 750 Mg Tab 750 MG PO DAILY for 2 Days, #2 TAB Prednisone (Prednisone) 10 Mg Tab 50 MG PO DAILY for 15 Days, #45 TAB taper: 50mg (5 tablets) daily x 3 days then 40mg x 3 days then 30mg x 3 days then 20mg x 3 days then 10mg x 3 days Tiotropium [place] (Spiriva Handihaler) 30 Puff/540 Mcg Aerp 1 CAP INH DAILY for 30 Days, #30 CAP 3 Refills Continued Medications: Acetaminophen (Tylenol) 500 Mg Tab 500 MG PO 4-6HRS PRN for Pain, TAB Albuterol Hfa (Ventolin Hfa) 200 Puffs/52383 Mcg Aers 1-2 PUFFS INH Q4-6HRS, INHALER Albuterol Sulf (Albuterol Sulfate) 2.5 Mg/3 Ml Nebu 3 ML NEB 4-6HRS PRN for SOB/Wheezing Aspirin (Aspirin Ec) 81 Mg Tab 81 MG PO DAILY Atorvastatin (Lipitor) 80 Mg Tab 80 MG PO HS Carvedilol (Carvedilol) 12.5 Mg Tab 18.75 MG PO BIDM Clonazepam (Clonazepam) 0.5 Mg Tab 0.5 MG PO HS Clopidogrel Bisulfate (Clopidogrel) 75 Mg Tab 75 MG PO DAILY Ezetimibe (Ezetimibe) 10 Mg Tab 10 MG PO HS Fexofenadine HCl (Fexofenadine HCl) 60 Mg Tab 60 MG PO BID, #60 TAB 1 Refill Fluticasone Prop/Salmeterol (Advair Diskus 500/50 60 Dose) 1 Ea Aerp 1 PUFF INH BID Fluticasone Propionate (Nasal) (Flonase Allergy Relief) 50 Mcg/Act Spr 2 SPRAYS EVER DAILY, #1 BTL 5 Refills Furosemide (Furosemide) 40 Mg Tab 40 MG PO BID Home O2 Therapy (Oxygen) Gas 2 LITER NA UD, BTL Ipratropium-Albuterol (Combivent Respimat) 1 Aer Aer 1 PUFF INH QID, INH Lisinopril (Lisinopril) 5 Mg Tab 5 MG PO QAM Potassium Ext Rel (Klor-Con) 20 Meq Tabcr 20 MEQ PO DAILY Pramipexole Dihydrochloride (Pramipexole Dihydrochlori) 0.25 Mg Tab 0.25 MG PO HS Saline ([place] Nasal [place]) 0.65 % Spr 2 SPRAYS NA Q1H PRN for nasal congestion, #1 BTL 0 Refills Sertraline HCl (Sertraline HCl) 50 Mg Tab 50 MG PO DAILY Discharge Exam Patient feeling well, breathing is better, close to baseline. Her strength is also closer to normal. She was able to ambulate around the hallway with therapy. Admitted to feeling more short of breath but she recovered quickly. Discussed that she lives in a trailer, does not walk around much. Discussed the importance of taking Advair every day, she admitted that she would not take it every day. Admitted that she noticed her breathing was better when she would take the Advair. Asked if she had Spiriva, she did not. Looked into the cost, it was only $20 copay for a month. She said she would use it. Gave her detailed instructions on how to take her medications. Review of Systems: Constitutional: No fever, No chills, No sweats, No weight loss, No weakness , No fatigue, No problem reported Eyes: No worsening of vision, No eye pain, No redness, No discharge, No diplopia, No problem reported ENT: No hearing loss, No unusual epistaxis, No nasal symptoms, No sore throat, No tinnitus, No dental problems, No trouble swallowing, No problem reported Respiratory: + cough, + dyspnea on exertion, No sputum, No wheezing, No shortness of breath, No dyspnea at rest, No hemoptysis, No problem reported Cardiovascular: No chest pain, No orthopnea, No PND, No edema, No claudication, No palpitations, No problem reported Abdomen: No pain, No nausea, No vomiting, No diarrhea, No constipation, No GI bleeding, No problem reported Musculoskeletal: No joint pain, No muscle pain, No swelling, No calf pain, No problem reported Genitourinary - Female: No dysuria, No urinary frequency, No urinary urgency , No urinary incontinence, No urinary retention, No hematuria Neurologic: + weakness, No memory loss, No paralysis, No numbness/tingling, No vertigo, No balance problems, No problem reported Psychiatric: No depression symptoms, No anhedonism, No anxiety, No insomnia , No substance abuse, No problem reported Endocrine: No fatigue, No excessive thirst, No excessive urination, No problem reported Hematologic / Lymphatic: No abnormal bleeding/bruising, No clotting problems , No swollen lymph nodes, No night sweats, No problem reported Integumentary: No rash, No itch, No new/changing skin lesions, No color change, No bleeding, No problem reported Physical Exam: General Appearance: no apparent distress, + thin Eyes: normal inspection, EOMI, sclerae normal ENT: normal ENT inspection, hearing grossly normal, pharynx normal Neck: supple, no adenopathy, no JVD, trachea midline Respiratory/Chest: chest non-tender, no respiratory distress, no accessory muscle use, + decreased breath sounds, + wheezing (faint, end exhalation) Cardiovascular: regular rate, rhythm, no edema, no gallop, no JVD, no murmur , normal peripheral pulses Abdomen / GI: normal bowel sounds, non tender, soft, no organomegaly Extremities: normal inspection, no calf tenderness, normal capillary refill , no pedal edema, normal range of motion, pelvis stable Neurologic/Psychiatric: internal affairs investigator II-XII nml as tested, no motor/sensory deficits , alert, normal mood/affect, normal reflexes, oriented x 3 Skin: normal color, warm/dry, no rash Hospital Course 72 y/o F with complex med Hx including combined CHF (25%), chronic anemia, COPD - 3L home 02, CAD/[place], abdominal aortic stenosis with history of mesenteric infarct, 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 Multiple recent admissions due to respiratory failure related to CHF and COPD. Presents with progressive SOB and a productive cough. . She was moderately distressed and required BiPAP on arrival to the ER. Initial CXR reveals a LLL infiltrate. A low grade fever was confirmed. She denies CP, N/V, or dysuria. The pt was clinically hypovolemic at the time of admission and indeed she received a litre of fluid without any adverse effect on her respiratory status. Initial labs are notable for hyponatremia, mild MIRYAM, leukocytosis and an elevated lactic acid. The pt was last admitted for a COPD exacerbation 02/21. She had an elevated troponin at the time which was thought due to demand ischemia. - Gram negative pneumonia, COPD exacerbation, acute and chronic hypoxic respiratory failure improved to the point that she can go home, breathing well on 3L NC which she wears at home ambulating around the hallway, some dyspnea but no desaturations d/c on Prednisone 50mg daily, taper by 10mg every 3 days until done received Levaquin for 5 days, will d/c on two more days at home for 7 days total continue supplemental oxygen, uses at home specific instructions provided that Advair is intended to be used EVERY DAY and provided new script for Spiriva to use EVERY DAY she voiced understanding of these instructions, gave them to her in writing as well - Chronic systolic heart failure: euvolemic, continue Lasix BID no rales on exam, no JVD monitor closely for volume overload - Mild hyponatremia and MIRYAM resolved with IV fluids and holding WALTER Cr at baseline, Lasix resumed - CAD - trop is at baseline. Mild increase. Likely demand ischemia. - no evidence of ACS - cont ASA, Plavix, Statin, B dane HTN - cont Carvedilol - WALTER held due to mild MIRYAM, resume on discharge - BP at goal. Anemia - Hb is slightly below baseline - no evidence of acute bleed - can be monitored as outpatient Moderate protein malnutrition is present - supplements will be provided DNR - SCDs and heparin d/c to home with PCP follow up, patient refused home services, CM met with her and Total Time Spent: Greater than 30 minutes This includes examination of the patient, discharge planning, medication reconciliation, and communication with other providers. Discharge Instructions Please refer to the electronic Patient Visit Report (Discharge Instructions) for additional information. Follow-Up Dr. Duncan in one week Additional Copies To RV. Edwards MD
== END 2018-05-14 15:17 | disposition home or self-care (01) | DRG 177 ==
LOC: EDBD 21:09 → C.EDA 21:12 → C.2T 23:08 → ENRESERV 23:14 → C.MED 05-12 15:28
PROVIDERS: ADMIT Internal Medicine; ATTEND Internal Medicine
DX: J15.6 Pneumonia due to other Gram-negative bacteria (principal); J96.21 Acute and chronic respiratory failure with hypoxia; J44.1 Chronic obstructive pulmonary disease with (acute) exacerbation; I13.0 Hypertensive heart and chronic kidney disease with heart failure and stage 1 through stage 4 chronic kidney disease, or unspecified chronic kidney disease; Z95.810 Presence of automatic (implantable) cardiac defibrillator; N18.9 Chronic kidney disease, unspecified; I25.10 Atherosclerotic heart disease of native coronary artery without angina pectoris; Z82.49 Family history of ischemic heart disease and other diseases of the circulatory system; Z80.3 Family history of malignant neoplasm of breast; Z87.891 Personal history of nicotine dependence; Z88.2 Allergy status to sulfonamides; Z88.6 Allergy status to analgesic agent; I25.2 Old myocardial infarction; E44.0 Moderate protein-calorie malnutrition; I50.22 Chronic systolic (congestive) heart failure; N17.9 Acute kidney failure, unspecified; E87.1 Hypo-osmolality and hyponatremia; Z99.81 Dependence on supplemental oxygen; Z66 Do not resuscitate

== ENCOUNTER 2018-05-22 19:18 | Emergency (ER) | payer BC, OTHER ==
[~2018-05-22] VITALS: Ht 157.5 cm; Wt 53.3 kg
[~2018-05-22 19:18] MED LIST changes: +PRED10TA PO; +SPRIN/30 INH
[2018-05-22 19:26] VITALS: Ht 157.5 cm; Wt 53.3 kg
[2018-05-22] MEDS ORDERED: ALBUT/IPRATROP 3MG/0.5MG NEB 3 ML VIAL INH STA (19:52)
[2018-05-22 19:54] VITALS: O2SAT 95
[2018-05-22 20:08] LABS: HEMATOCRIT 30.7 % (37-47); HEMOGLOBIN 9.7 g/dL (12.0-16.0); IG# 0.06 K/uL (0.00-0.02); LYMPH % 8.2 %; LYMPH ABS # 0.94 K/uL (1.2-3.4); MEAN CELL VOLUME 90.3 fL (80-100); MEAN CORPUSCULAR HEMOGLOBIN 28.5 pg (25-34); MEAN CORPUSCULAR HGB CONC 31.6 g/dl (32-36); MONO % 9.4 %; MONO ABS # 1.07 K/uL (0.11-0.59); NEUT % 81.9 %; NEUT ABS # 9.35 K/uL (1.4-6.5); PLATELET COUNT 331 K/uL (130-400); RED CELL DISTRIBUTION WIDTH CV 17.6 % (11.5-14.5); RED CELL DISTRIBUTION WIDTH SD 57.8 fL (36.4-46.3); WHITE BLOOD COUNT 11.42 K/uL (4.8-10.8)
--- NOTE | 2018-05-22 20:15 | DIAGNOSTIC IMAGING REPORT ---
SINGLE VIEW CHEST CLINICAL HISTORY: Dyspnea. FINDINGS: An AP, portable, upright chest radiograph is compared to study dated 05/12/2018. Correlation is made with chest CT dated 03/12/2017. The examination is degraded by portable technique and patient rotation. A 3-lead cardiac AICD is unchanged in position and largely obscures the left lower chest. The heart is enlarged and there is atherosclerotic calcification of the thoracic aorta. The pulmonary vasculature is noncongested. Emphysema and chronic interstitial thickening are similar to previous. There is a left pleural effusion with left basilar consolidation. The right lung is grossly clear. No pneumothorax is seen. The skeletal structures are osteopenic. The bony thorax is grossly intact. IMPRESSION: 1. Cardiomegaly and AICD. There is no radiographic evidence of congestive failure. 2. There is a left pleural effusion with left basilar consolidation, similar appearance to 05/12/2018 this could represent atelectasis and/or pneumonia. Clinical correlation will be required. 3. Emphysema. Electronically signed by: Antonio Astorga M.D. 05/22/2018 8:13 PM Dictated Date/Time: 05/22/2018 8:11 PM
[2018-05-22 20:22] LABS: PTT PATIENT 21.8 SECONDS (21.0-31.0)
[2018-05-22 20:37] LABS: ALBUMIN 3.2 gm/dl (3.4-5.0); CALCIUM 8.7 mg/dl (8.5-10.1); CKMB 2.9 ng/ml (0.5-3.6); CREATININE 1.15 mg/dl (0.60-1.20); POTASSIUM 3.6 mmol/L (3.5-5.1); TOTAL PROTEIN 6.6 gm/dl (6.4-8.2)
[2018-05-22] MEDS ORDERED: AZITTAB PO (21:38)
[2018-05-22] MEDS ORDERED: AZITHROMYCIN 250 MG TAB PO STA (21:38)
--- NOTE | 2018-05-22 21:38 | EMERGENCY ROOM VISIT NOTE ---
History Report prepared by Phillip: Saúl Vera Under the Supervision of: Dr. Chester De Leon D.O. First contact with patient: 19:45 Chief Complaint: SHORTNESS OF BREATH Stated Complaint: SHORT OF BREATH History of Present Illness The patient is a 73 year old female who presents to the Emergency Room with complaints of shortness of breath that started yesterday and has been worsening. She states that any type of movement exacerbates the symptoms and that she also has a cough and pedal edema. She notes that she takes Lasix for the swelling. She reports that at home her baseline oxygen was increased from 3L to 4L recently. The patient is a former smoker and has a pacemaker inserted. Source of History: patient Onset: Yesterday Position: chest Timing: worsening Modifying Factors (Worsening): movement Associated Symptoms: + cough Review of Systems See HPI for pertinent positives & negatives. A total of 10 systems reviewed and were otherwise negative. Past Medical & Surgical Medical Problems: (1) Acute and chronic respiratory failure with hypercapnia (2) Acute and chronic respiratory failure with hypoxia (3) Acute on chronic systolic (congestive) heart failure (4) AICD malfunction (5) ANEMIA NOS (6) ASTHMA, UNSPECIFIED (7) Cardiac defibrillator in place (8) CHF (congestive heart failure) (9) CHF exacerbation (10) CHRONIC KIDNEY DISEASE, UNSPECIFIED (11) COPD (chronic obstructive pulmonary disease) (12) COPD exacerbation (13) COPD exacerbation (14) CORONARY ATHEROSCLEROSIS OF [place] CORONARY VESSEL (15) DIAB [place] WO COMPL, TYPE II OR UNSPEC TYPE, NOT UNCNTRLD (16) Elevated troponin (17) Emphysema of lung (18) Hypoxia (19) Influenza A (20) Left lower lobe pneumonia (21) Non compliance w medication regimen (22) Pulmonary congestion (23) PURE HYPERCHOLESTEROLEM (24) Respiratory distress (25) Syncope Family History Breast cancer Diabetes mellitus FH: heart disease Hypertension Kidney disease Kidney stones Lung disease Myocardial infarction Social History Smoking Status: Former Smoker Alcohol Use: occasionally Drug Use: none Marital Status: Housing Status: lives with family Occupation Status: retired Current/Historical Medications Scheduled Albuterol Hfa (Ventolin Hfa), 1-2 PUFFS INH Q4-6HRS Aspirin (Aspirin Ec), 81 MG PO DAILY Atorvastatin (Lipitor), 80 MG PO HS Carvedilol (Carvedilol), 18.75 MG PO BIDM Clonazepam (Clonazepam), 0.5 MG PO HS Clopidogrel Bisulfate (Clopidogrel), 75 MG PO DAILY Ezetimibe (Ezetimibe), 10 MG PO HS Fexofenadine HCl (Fexofenadine HCl), 60 MG PO BID Fluticasone Prop/Salmeterol (Advair Diskus 500/50 60 Dose), 1 PUFF INH BID Fluticasone Propionate (Nasal) (Flonase Allergy Relief), 2 SPRAYS EVER DAILY Furosemide (Furosemide), 40 MG PO BID Home O2 Therapy (Oxygen), 2 LITER NA UD Ipratropium-Albuterol (Combivent Respimat), 1 PUFF INH QID Lisinopril (Lisinopril), 5 MG PO QAM Potassium Ext Rel (Klor-Con), 20 MEQ PO DAILY Pramipexole Dihydrochloride (Pramipexole Dihydrochlori), 0.25 MG PO HS Prednisone (Prednisone), 50 MG PO DAILY Sertraline HCl (Sertraline HCl), 50 MG PO DAILY Tiotropium [place] (Spiriva Handihaler), 1 CAP INH DAILY Scheduled PRN Acetaminophen (Tylenol), 500 MG PO 4-6HRS PRN for Pain Albuterol Sulf (Albuterol Sulfate), 3 ML NEB 4-6HRS PRN for SOB/Wheezing Saline ([place] Nasal [place]), 2 SPRAYS NA Q1H PRN for nasal congestion Allergies Coded Allergies: Sulfa Antibiotics (Verified Allergy, Intermediate, RASH, 04/13/18) Morphine (Verified Adverse Reaction, Mild, GI SYMPTOMS, 04/13/18) Physical Exam Vital Signs Date Time Temp Pulse Resp B/P (MAP) Pulse Ox O2 Delivery O2 Flow Rate FiO2 05/22/18 20:48 84 23 96 05/22/18 20:31 116/49 05/22/18 20:18 84 24 95 05/22/18 19:54 95 Nasal Cannula 3.0 05/22/18 19:48 82 25 97 05/22/18 19:31 113/58 05/22/18 19:28 99 05/22/18 19:26 36.6 95 23 134/61 95 Nasal Cannula 3.0 05/22/18 19:26 95 Nasal Cannula 3.0 05/22/18 19:21 134/61 Physical Exam CONSTITUTIONAL/VITAL SIGNS: Reviewed / noted above. GENERAL: Non-toxic in appearance. INTEGUMENTARY: Warm, dry, and [place]. HEAD: Normocephalic. EYES: without scleral icterus or trauma. ENT/OROPHARYNX: clear and moist. LYMPHADENOPATHY/NECK: Is supple without lymphadenopathy or meningismus. RESPIRATORY: Lungs clear and equal. CARDIOVASCULAR: Regular rate and rhythm. GI/ABDOMEN: Soft and nontender. No organomegaly or pulsatile mass. No rebound or guarding. Normal bowel sounds. EXTREMITIES: Warm and well perfused. BACK: No CVA tenderness. NEUROLOGICAL: Intact without focal deficits. PSYCHIATRIC: normal affect. MUSCULOSKELETAL: Normally developed with good muscle tone. Medical Decision & Procedures ER Provider Diagnostic Interpretation: Radiology results as stated below per my review and radiologist interpretation: SINGLE VIEW CHEST CLINICAL HISTORY: Dyspnea. FINDINGS: An AP, portable, upright chest radiograph is compared to study dated 05/12/2018. Correlation is made with chest CT dated 03/12/2017. The examination is degraded by portable technique and patient rotation. A 3-lead cardiac AICD is unchanged in position and largely obscures the left lower chest. The heart is enlarged and there is atherosclerotic calcification of the thoracic aorta. The pulmonary vasculature is noncongested. Emphysema and chronic interstitial thickening are similar to previous. There is a left pleural effusion with left basilar consolidation. The right lung is grossly clear. No pneumothorax is seen. The skeletal structures are osteopenic. The bony thorax is grossly intact. IMPRESSION: 1. Cardiomegaly and AICD. There is no radiographic evidence of congestive failure. 2. There is a left pleural effusion with left basilar consolidation, similar appearance to 05/12/2018 this could represent atelectasis and/or pneumonia. Clinical correlation will be required. 3. Emphysema. Electronically signed by: Antonio Astorga M.D. 05/22/2018 8:13 PM Dictated Date/Time: 05/22/2018 8:11 PM Laboratory Results 05/22/18 19:30 Red Blood Count 3.40, Mean Corpuscular Volume 90.3, Mean Corpuscular Hemoglobin 28.5, Mean Corpuscular Hemoglobin Concent 31.6, Mean Platelet Volume 9.0, Neutrophils (%) (Auto) 81.9, Lymphocytes (%) (Auto) 8.2, Monocytes (%) (Auto) 9.4, Eosinophils (%) (Auto) 0.0, Basophils (%) (Auto) 0.0, Neutrophils # (Auto) 9.35, Lymphocytes # (Auto) 0.94, Monocytes # (Auto) 1.07, Eosinophils # (Auto) 0.00, Basophils # (Auto) 0.00 05/22/18 19:30 Test 05/22/18 19:30 White Blood Count 11.42 K/uL (4.8-10.8) Red Blood Count 3.40 M/uL (4.2-5.4) Hemoglobin 9.7 g/dL (12.0-16.0) Hematocrit 30.7 % (37-47) Mean Corpuscular Volume 90.3 fL (80-100) Mean Corpuscular Hemoglobin 28.5 pg (25-34) Mean Corpuscular Hemoglobin Concent 31.6 g/dl (32-36) Platelet Count 331 K/uL (130-400) Mean Platelet Volume 9.0 fL (7.4-10.4) Neutrophils (%) (Auto) 81.9 % Lymphocytes (%) (Auto) 8.2 % Monocytes (%) (Auto) 9.4 % Eosinophils (%) (Auto) 0.0 % Basophils (%) (Auto) 0.0 % Neutrophils # (Auto) 9.35 K/uL (1.4-6.5) Lymphocytes # (Auto) 0.94 K/uL (1.2-3.4) Monocytes # (Auto) 1.07 K/uL (0.11-0.59) Eosinophils # (Auto) 0.00 K/uL (0-0.5) Basophils # (Auto) 0.00 K/uL (0-0.2) RDW Standard Deviation 57.8 fL (36.4-46.3) RDW Coefficient of Variation 17.6 % (11.5-14.5) Immature Granulocyte % (Auto) 0.5 % Immature Granulocyte # (Auto) 0.06 K/uL (0.00-0.02) Prothrombin Time 10.6 SECONDS (9.0-12.0) Prothromb Time International Ratio 1.0 (0.9-1.1) Activated Partial Thromboplast Time 21.8 SECONDS (21.0-31.0) Partial Thromboplastin Ratio 0.8 Anion Gap 6.0 mmol/L (3-11) Est Creatinine Clear Calc Drug Dose 34.0 ml/min Estimated GFR () 54.3 Estimated GFR (Non- 46.8 BUN/Creatinine Ratio 49.9 (10-20) Calcium Level 8.7 mg/dl (8.5-10.1) Total Bilirubin 0.4 mg/dl (0.2-1) Aspartate Amino Transf (AST/SGOT) 15 U/L (15-37) Alanine Aminotransferase (ALT/SGPT) 28 U/L (12-78) Alkaline Phosphatase 72 U/L (45-117) Total Creatine Kinase 21 U/L (26-192) Creatine Kinase MB 2.9 ng/ml (0.5-3.6) Creatine Kinase MB Ratio 13.8 (0-3.0) Troponin I 0.073 ng/ml (0-0.045) Total Protein 6.6 gm/dl (6.4-8.2) Albumin 3.2 gm/dl (3.4-5.0) Globulin 3.4 gm/dl (2.5-4.0) Albumin/Globulin Ratio 0.9 (0.9-2) Medications Administered Medications (Trade) Dose Ordered Sig/Osmani Route Start Time Stop Time Status Last Admin Dose Admin Albuterol/ Ipratropium (Duoneb) 3 ml NOW STAT INH 05/22/18 19:52 05/22/18 19:54 DC 05/22/18 19:58 3 ML ECG Per My Interpretation Indication: SOB/dyspnea Rate (beats per minute): 90 Rhythm: other (Paced ventricular rhythm ) Findings: no ectopy, other (No ST elevation) ED Course 1947: Previous medical records were reviewed. The patient was evaluated in room C8. A complete history and physical examination was performed. 1951: Duoneb 3ml INH 2107: On reevaluation, the patient is resting in bed. I discussed the results and findings with the patient. She verbalized agreement of the treatment plan. She was discharged home. Medical Decision the differential was considered includes acute myocardial infarction, acute coronary syndrome, myocarditis, pericarditis, pericardial effusions /tamponad, esophageal perforation, pulmonary embolism, pneumonia, pneumothorax, cardiomyopathy, congestive heart, anemia , COPD/asthma exacerbation. This is a 73-year-old female who presents to the ED with a chief complaint of shortness of breath. The patient uses oxygen at home. She is normally on 3 L per day. The patient reports shortness of breath for the past couple of days and it seemed to be worsening somewhat. It is worse with exertion. She reports that her feet are a little swollen as well. The patient has normal vital signs. Her oxygen saturations on 3-1/2 L is about 97%. Physical exam was relatively unremarkable. She does have some mild pedal edema in the lower extremities. Chest x-ray reveals a left base consolidation versus atelectasis. There is some cardiomegaly. The x-ray is similar in appearance from 10 days ago. A CBC is unremarkable. Troponin is chronically elevated. The BUN is 57 the creatinine was normal. The patient was treated with an albuterol treatment. She was told the results. She will be discharged on Z-Willi. She was given a dose here. Medication Reconcilliation Current Medication List: was personally reviewed by me Blood Pressure Screening Patient's blood pressure: Normal blood pressure Impression Primary Impression: COPD exacerbation Additional Impression: Left lower lobe pneumonia Scribe Attestation The scribe's documentation has been prepared under my direction and personally reviewed by me in its entirety. I confirm that the note above accurately reflects all work, treatment, procedures, and medical decision making performed by me. Departure Information Dispostion Home / Self-Care Prescriptions Azithromycin (ZITHROMAX Z-WILLI) 250 Mg Tab 0 PO UD, #1 PKT 2 TABS DAY 1, THEN 1 TAB DAILY FOR 4 DAYS Prov: Chester De Leon D.O. 05/22/18 Referrals RV. Edwards MD (PCP) Forms HOME CARE DOCUMENTATION FORM, IMPORTANT VISIT INFORMATION Patient Instructions My [facility] Additional Instructions Zithromax as prescribed. Follow-up with your doctor for further care and evaluation in 1-2 days. Return to the emergency department for worsening or new symptoms or any concerns. You have been examined and treated today on an emergency basis only. This is not a substitute for, or an effort to provide, complete comprehensive medical care. It is impossible to recognize and treat all injuries or illnesses in a single emergency department visit. It is therefore important that you follow up closely with your doctor. Call as soon as possible for an appointment. Problem Qualifiers
[2018-05-22 22:23] VITALS: BP 116/49; PULSE 84; TEMP 36.6; O2SAT 96
== END 2018-05-22 22:24 | disposition home or self-care (01) ==
LOC: EDBD 19:18 → C.EDC 19:19
DX: J44.1 Chronic obstructive pulmonary disease with (acute) exacerbation (principal); J18.9 Pneumonia, unspecified organism; J96.10 Chronic respiratory failure, unspecified whether with hypoxia or hypercapnia; Z87.891 Personal history of nicotine dependence; Z95.0 Presence of cardiac pacemaker; Z99.81 Dependence on supplemental oxygen; Z87.01 Personal history of pneumonia (recurrent); Z87.09 Personal history of other diseases of the respiratory system; Z79.82 Long term (current) use of aspirin; Z79.52 Long term (current) use of systemic steroids; Z79.899 Other long term (current) drug therapy; Z88.2 Allergy status to sulfonamides; Z88.6 Allergy status to analgesic agent; Z83.6 Family history of other diseases of the respiratory system

== ENCOUNTER 2018-11-22 11:33 | Inpatient (IN) ==
[2018-11-22] MEDS ORDERED: methylPREDNISolone 125 MG/2 ML VIAL IV STA (11:47)
[2018-11-22 12:10] LABS: Base Excess VBG 6.3 mEq/L; HCO3 VBG 33 mmol/L; PCO2 VBG 57 mmHg (38-50); PO2 VBG 25 mmHg; pH VBG 7.38 (7.36-7.41)
[2018-11-22 12:11] LABS: Oxygen Saturation VBG < 60.0 %
[2018-11-22 12:21] LABS: Basophils # (auto) 0.01 K/uL (0-0.2); Basophils % (auto) 0.1 %; Eosinophils % (auto) 1.1 %; Hematocrit (blood only) 33.4 % (37-47); Hemoglobin 10.1 g/dL (12.0-16.0); Immature Granulocytes # (auto) 0.02 K/uL (0.00-0.02); Immature Granulocytes % (auto) 0.2 %; Lymphocytes # (auto) 1.06 K/uL (1.2-3.4); Lymphocytes % (auto) 11.1 %; Mean Corpuscular Hgb Conc 30.2 g/dL (32-36); Mean Corpuscular Volume 78.4 fL (80-100); Mean Platelet Volume 9.4 fL (7.4-10.4); Monocytes # (auto) 1.09 K/uL (0.11-0.59); Monocytes % (auto) 11.5 %; Neutrophils # (auto) 7.23 K/uL (1.4-6.5); Platelet Count 265 K/uL (130-400); RDW Coefficient of Variation 23.6 % (11.5-14.5); RDW Standard Deviation 67.4 fL (36.4-46.3); Red Blood Count 4.26 M/uL (4.2-5.4); White Blood Count 9.51 K/uL (4.8-10.8)
--- NOTE | 2018-11-22 12:26 | XRay Report ---
XR chest 1V portable CLINICAL HISTORY: Shortness of breath. COMPARISON STUDY: Chest radiograph October 24, 2018. FINDINGS: A left subclavian biventricular pacer/AICD is in place. There is no pneumothorax. Pulmonary edema has progressed since exam of October 24, 2018. Addition, left basilar opacity with volume loss has increased. There is a probable left pleural effusion. There is a trace right pleural effusion. IMPRESSION: 1. Interval increase in pulmonary edema. 2. Interval increase in left basilar opacity with volume loss which may reflect left lower lobe atele ctasis or pneumonia. Radiographic follow up to ensure resolution is recommended. 3. Bilateral pleural effusions, left larger than right. Electronically signed by: Bora Schmitt M.D. 11/22/2018 12:25 PM
[2018-11-22] MEDS ORDERED: ALBUT/IPRATROP 3MG/0.5MG NEB 3 ML VIAL NEB STA (12:31)
[2018-11-22] MEDS ORDERED: FUROSEMIDE 40 MG/4 ML VIAL IV STA (12:32)
[2018-11-22] MEDS ORDERED: NITROGLYCERIN 2% OINTMENT 30GM TUBE EXT STA (12:33)
[2018-11-22 12:39] LABS: Albumin Level 2.9 gm/dl (3.4-5.0); BUN Creatinine Ratio 20.5 (10-20); Calcium 8.8 mg/dl (8.5-10.1); Creatinine Clr Calc Pharmacy 34.4 ml/min; Est GFR (African American) 62.8; Est GFR (Non-African American) 54.1; Magnesium 1.8 mg/dl (1.8-2.4); Potassium 4.7 mmol/L (3.5-5.1)
[2018-11-22] MEDS ORDERED: PIPERACILLIN/TAZOBACTAM 4.5 GM/120 ML BAG IV ONE (12:41)
[2018-11-22 12:44] LABS: INR 1.1 (0.9-1.1); Partial Thromboplastin Time 26.5 Seconds (21.0-31.0); Prothrombin Time 10.7 Seconds (9.0-12.0)
[2018-11-22 12:47] LABS: Albumin Globulin Ratio 0.7 (0.9-2); Bilirubin,Total 0.5 mg/dl (0.2-1); Total Protein 6.9 gm/dl (6.4-8.2); Troponin I 0.056 ng/ml (0-0.045)
[2018-11-22 12:55] LABS: Anisocytosis Present; Ovalocytes 1+; Schistocytes 1+; Tear Drop Cells 1+
[2018-11-22 13:23] LABS: Influenza A virus by PCR Neg for Influ A (Neg); Influenza B virus by PCR Neg for Influ B (Neg)
[2018-11-22] MEDS ORDERED: NITROGLYCERIN/D5W 100MCG/ML 250 ML IV SCH (14:30)
--- NOTE | 2018-11-22 14:50 | CT Scan Report ---
CT OF THE CHEST WITHOUT IV CONTRAST CLINICAL HISTORY: Left sided possible mass, fluid or infiltrate. COMPARISON STUDY: Chest CT March 12, 2017. Chest radiograph performed earlier today. CT DOSE: 204.64 mGy.cm TECHNIQUE: Axial images of the chest were obtained without IV contrast. Images were reviewed in the axial, sagittal, and coronal planes. IV contrast was not administered for this examination. Automat ed exposure control was utilized for the study. A dose lowering technique was utilized adhering to t he principles of ALARA. FINDINGS: A left subclavian biventricular pacer/AICD is in place. There is no pneumothorax. Trace ri ght and small left pleural effusions are noted. Left lower lobe collapse is noted. Evaluation for gen tral obstructing mass is suboptimal on this unenhanced exam but there is no definite mass. Suspected secretions within the left lower lobe bronchi are noted. Exam is compromised by respiratory motion. T here is moderate emphysema. Central pulmonary arteries are dilated. Minimal right lower lobe airspace opacity is present. Interlobular septal thickening represents interstitial edema. A 1.5 cm subpleura l opacity within the right upper lobe on image 91 of 326 favors atelectasis. There is an indeterminat e 9 mm nodule within the superior segment of the right lower lobe on image 153. A few old thoracic an d lumbar spine compression fractures are present. There is extensive atherosclerotic plaque of the th oracic or abdominal aorta. IMPRESSION: 1. Left lower lobe collapse with secretions throughout the left lower lobe bronchi. No central obstru cting mass identified however a follow-up CT in one month to ensure resolution is recommended. 2. Small left and trace right pleural effusions. 3. Moderate emphysema. Dilatation of the central pulmonary arteries indicative of pulmonary arterial hypertension. 4. Mild pulmonary edema. 5. Indeterminate 9 mm nodular opacity within the right lower lobe. This can be assessed on follow-up chest CT. Electronically signed by: Bora Schmitt M.D. 11/22/2018 2:48 PM
[2018-11-22] MEDS ORDERED: ICU PROTOCOL FOR HYPERGLYCEMIA PRN (14:55)
[2018-11-22] MEDS ORDERED: clonazePAM 0.5 MG TAB PO PRN (14:55)
[2018-11-22] MEDS ORDERED: FUROSEMIDE 40 MG in SYRINGE 0 ML IV ONE (15:00)
--- NOTE | 2018-11-22 15:02 | History & Physical Report ---
Date of Service November 22, 2018 Assessment & Plan (1) Respiratory distress: 73 y/o F Hx advanced COPD, systolic CHF 25%, pacer/AICD, CAD, AF, HTN, HLD , anxiety. The pt is dependent on 4-5L 02. She presents with progressive SOB for 2 days in addition to a productive cough. She could not confirm fevers and denies CP. She was in moderate respiratory distress on arrival and required BiPAP to maintain an adequate saturation. The pt was recently admitted with repiratory failure associated with CHF and influenza. A CT of the chest was obtained in the ER demonstrating left lower lobe collapse with secretions throughout the left lower lobe bronchi, small b/l pleural effusions. 1) Respiratory distress - multifactorial - COPD, possible PNM and LLL collapse, CHF a) COPD - will treat for exacerbation - Abx, Steroids, scheduled nebs, BiPAP/ 02 b) LLL collapse - possible PNM - may need bronch - placed on Abx - assigned to ICU c) CHF - 40mg Laix provided in ER - cont Carvedilol, Lisinopril, IV Lasix 2) CAD - no current evidence of ACS - cont ASA, B dane, Plavix, Statin 3) AF - paced on arrival - Cont ASA, Carvedilol - not a candidate for anticoagulation - Hx SAH and GIB Full code - Heparin prophylaxis Total time for this admit including review of labs, meds, imaging, records - discussion with pt and ER attending - [facility] critical care time 45 min History of Present Illness Chief Complaint: Shortness of breath, cough Primary Care Provider: Edy Ornelas MD 73 y/o F Hx advanced COPD, systolic CHF 25%, pacer/AICD, CAD, AF, HTN, HLD, anxiety. The pt is dependent on 4-5L 02. She presents with progressive SOB for 2 days in addition to a productive cough. She could not confirm fevers and denies CP. She was in moderate respiratory distress on arrival and required BiPAP to maintain an adequate saturation. The pt was recently admitted with repiratory failure associated with CHF and influenza. A CT of the chest was obtained in the ER demonstrating left lower lobe collapse with secretions throughout the left lower lobe bronchi, small b/l pleural effusions. PMH: 1) CAD - [place] 1999 2) Chronic AF 3) History of GI bleed 4) COPD - dependent on 4-5 L home 02 5) AICD/pacer 6) History of subarachnoid hemorrhage 7) HTN 8) HLD 9) Anxiety Surgical: 1) Carotid endarterectomy 2) Hysterectomy 3) Carpal tunnel release 4) AICD/pacer Social: Does not currently smoke or drink - extensive smoking history Family: Noncontributory to current complaint Allergies Allergy/AdvReac Type Severity Reaction Status Date / Time Sulfa (Sulfonamide Allergy Intermediate RASH Verified 11/22/18 12:26 Antibiotics) morphine AdvReac Mild GI SYMPTOMS Verified 11/22/18 12:26 Home Medications Home Medications Medication Instructions Recorded Confirmed Type albuterol sulfate 2.5 mg INHALATION Q4 PRN 10/24/18 11/22/18 History albuterol sulfate [Ventolin HFA] 1 - 2 puff INHALATION Q4 PRN 10/24/18 11/22/18 History aspirin [Aspir-81] 81 mg PO DAILY 10/24/18 11/22/18 History atorvastatin 80 mg PO HS 10/24/18 11/22/18 History carvedilol 18.75 mg PO BID 10/24/18 11/22/18 History clonazepam 0.25 - 0.5 mg PO HS PRN 10/24/18 11/22/18 History clopidogrel 75 mg PO DAILY 10/24/18 11/22/18 History ergocalciferol (vitamin D2) 50,000 unit PO WK 10/24/18 11/22/18 History [Vitamin D2] ezetimibe 10 mg PO HS 10/24/18 11/22/18 History fexofenadine 60 mg PO BID 10/24/18 11/22/18 History fluticasone 2 spray INTRANASAL DAILY 10/24/18 11/22/18 History fluticasone-salmeterol [Advair 1 inh INHALATION BID 10/24/18 11/22/18 History Diskus] furosemide [Lasix] 40 mg PO BID 10/24/18 11/22/18 History guaifenesin [Mucinex] 1,200 mg PO Q12H 10/24/18 11/22/18 History ipratropium-albuterol [Combivent 1 puff INHALATION QID 10/24/18 11/22/18 History Respimat] lisinopril 5 mg PO DAILY 10/24/18 11/22/18 History potassium chloride 20 meq PO DAILY 10/24/18 11/22/18 History pramipexole 0.25 mg PO PM 10/24/18 11/22/18 History sertraline 50 mg PO DAILY 10/24/18 11/22/18 History sodium chloride [[place] Nasal] 1 spray INTRANASAL DIRECTED PRN 10/24/18 History tiotropium bromide [Spiriva with 1 - 2 cap INHALATION Q4 PRN 10/24/18 11/22/18 History HandiHaler] ondansetron HCl [Zofran] 4 mg PO Q6H PRN #10 tab 10/29/18 11/22/18 Rx pantoprazole 40 mg PO BID 30 Days #60 tab 10/29/18 11/22/18 Rx Past Med/Surg History Medical History CAD (coronary artery disease) s/p [place] in 1999 Atrial fibrillation GIB (gastrointestinal bleeding) Reflux esophagitis SAH (subarachnoid hemorrhage) Ischemic cardiomyopathy EF 25-30% Dyslipidemia Hypertension COPD (chronic obstructive pulmonary disease) (Chronic) CHF (congestive heart failure) (Chronic) Pulmonary congestion Non compliance w medication regimen Emphysema of lung Syncope Acute and chronic respiratory failure with hypercapnia Acute and chronic respiratory failure with hypoxia Ambulatory dysfunction (Acute) Surgical History S/P implantation of automatic cardioverter/defibrillator (AICD) S/P carotid endarterectomy S/P hysterectomy S/P carpal tunnel release Social History marital status: Current Living Situation: Spouse Other Information That Helps Us Care for You: No Feels Safe at Home: Yes Safety Concerns: Feels Safe At This Time Smoking Status: Current every day smoker Tobacco Type: cigarettes Cigarettes per Day: 1-2 a day Do You Dip or Chew Tobacco: No Second Hand Exposure: No Tobacco Cessation Education Requested by Patient: No Hx Alcohol Use: No Hx Substance Use: No Beliefs That Will Affect Care: None Preferred Language: Cymraes Communication Ability: Effective Light Technician Required: No Review of Systems Gen: Denies fevers, night sweats, rigors, fatigue, malaise, weight loss/gain ENT: Denies congestion, throat pain, hearing loss Eyes: Denies acute visual changes CV: Denies CP, palpitations Pulmonary: Progressive SOB and productive cough GI: Denies N/V, diarrhea, constipation Neuro: Denies acute or unilateral weakness, acute gait impairment, headache or acute visual changes Musculoskeletal: Denies joint pain, inflammation Endocrine: Denies polydipsia, polyuria Skin: Denies acute rashes or ulcers Physical Exam 2 Vital Signs (Past 24 Hours): Last Vital Signs Temp 36.7 C 11/22/18 14:45 Pulse 97 H 11/22/18 14:52 Resp 30 H 11/22/18 14:52 BP 103/59 L 11/22/18 14:45 Pulse Ox 96 11/22/18 14:52 Physical Exam: General: Slightly distressed, elderly F, wearing BiPAP - able to comlplete sentences ENT: No erythema or exudates, no thrush Eyes: FAISAL, EOMI Head and neck: Normocephalic, atraumatic, + JVD Chest/heart: S1,2 R, mild systolic murmur Lungs: Very poor BL air movement - there is no air entering the L base - crackles are heard on R Abdomen: Nontender, nondistended, BS+ Neuro: AAO x 3, speech is clear, no unilateral weakness or loss of sensation, coordination intact Musculoskeletal: No joint inflammation, muscle tenderness, FROM Skin: No acute rashes or ulcers Extremities: No clubbing, cyanosis, edema Results & Data Diagnostic Findings CT chest: 1. Left lower lobe collapse with secretions throughout the left lower lobe bronchi. No central obstructing mass identified however a follow-up CT in one month to ensure resolution is recommended. 2. Small left and trace right pleural effusions. 3. Moderate emphysema. Dilatation of the central pulmonary arteries indicative of pulmonary arterial hypertension. 4. Mild pulmonary edema. 5. Indeterminate 9 mm nodular opacity within the right lower lobe. This can be assessed on follow-up chest CT.
--- NOTE | 2018-11-22 15:16 | Critical Care Consultation ---
Date of Consultation November 22, 2018 Assessment & Plan (1) Respiratory distress: 73 y/oF with hx of severe COPD/emphysema (on 4-5L O2 at home), systolic CHF EF 25-30%, CAD s/p IN in 1999 with biventricular pacemaker and ICD, ischemic cardiomyopathy, AFib, HTN, HLD, hx of GI bleed, reflux esophagitis and anxiety presented with progressive SOB and productive cough for 2 days. Concern for CHF vs. COPD exacerbation. NEURO: Alert and oriented CAM ICU: negative Pain: Tylenol PRN Continue home clonazepam PRN, pramipexole and sertraline CARDIAC/VASCULAR: Concern for CHF exacerbation PMhx: systolic CHF EF 25-30%, CAD s/p [place] in 1999 with biventricular pacemaker and ICD, ischemic cardiomyopathy, AFib, HTN, HLD ECHO 2017: EF 25-30%, LV moderately dilated, lateral wall and apex akinesis, basal portion anterior and inferior borges moderately hypokinetic EK atrial sensed and ventricular paced rthythm QTc 528 CXR: interval increase in pulmonary edema CT chest: mild pulmonary edema Troponin 0.056 BNP 93443 Received Lasix 40mg IV x 2 Started on nitroglycerin drip and received nitropaste initially Continue home aspirin, clopidogrel, carvedilol, lisinopril, zetia and atorvastatin Trend troponin PULM: Respiratory distress in the setting of CHF vs. COPD exacerbation given mucoid impaction of bronchi On CPAP peep 10, FiO2 50%, Rate 12 ABG: Ph 7.38, CO2 57, pO2 25, HCO3 33 CXR: interval increase in pulmonary edema, L basilar opacity and bilateral pleural effusion L >R CT chest: mild pulmonary edema, LLL collapse with secretions throughout LL bronchi, small L and trace R pleural effusion, moderate emphysema, pulmonary arterial hypertension findings, LLL 9mm nodular opacity Solumedrol 60mg Q8H Duoneb QID Osmani Mucomyist neb Q4H x 3 Chest physiotherapy ordered NPO after midnight for possible bronchoscopy tomorrow Follow up Chest CT needed for LLL 9mm nodular opacity GI: LFT wnl NPO after midnight for possible bronchoscopy Continue home protonix RENAL/LYTES: BUN/Cr 21/1.02 Electrolytes wnl except mildly decreased Na 134 and Cl 97 (likely in the setting of hypervolemia) Continue home KCL 20meq Follow BMP : Tyson in place ENDO: No hx of DM or hypothyroidism BSG checks and SSI per ICU protocol HEME: Hx of chronic anemia and previous GI bleed Hgb 10.1 (baseline around 9) MCV 78.4 Coags wnl ID: No concern for acute infection at this time Afebrile, WBC wnl BCx x 2 pending procal pending MRSA swab pending influenza negative Received Zosyn x 1 in the ED LINES: PIVs x 2 DVT prophylaxis: Lovenox Code: Full Dispo: pending clinical improvement (2) CHF (congestive heart failure): (3) CAD (coronary artery disease): (4) Atrial fibrillation: (5) GIB (gastrointestinal bleeding): (6) Dyslipidemia: (7) Hypertension: (8) Anxiety: (9) Anemia: (10) Pulmonary congestion: Supervising Physician Co-Signing Physician Notes Dr. Blum was resident physician during care of patient. I separately evaluated patient for jacobsen portions of the history and the exam. I was present during the critical portion of medical decision making, and I discussed the case with the resident. I generally agree with the findings and plan. Significant mucoid impaction of the left lower lobe. Plan bronchoscopy tomorrow if no improvement. Hemodynamics improved I suspect there is an aspect of mild CHF. Aggressive pulmonary toilet and chest physiotherapy. Patient has been consented for possible endotracheal intubation, procedural sedation, bronchoscopy. N.p.o. after midnight. History of Present Illness Attending Physician: Roderick Estevez MD 73 y/oF with hx of severe COPD/emphysema (on 4-5L O2 at home), systolic CHF EF 25-30%, CAD s/p IN in 1999 with biventricular pacemaker and ICD, ischemic cardiomyopathy, AFib, HTN, HLD, hx of GI bleed, reflux esophagitis and anxiety presented with progressive SOB and productive cough for 2 days. She is not sure if she had a fever. Denies any BAHENA/dizziness, cp, abdominal pain, n/v, diarrhea, dysuria. She denies dark or bloody stools and hematemesis. Upon arrival in moderate respiratory distress with RR of 34 requiring BIPAP to saturate 88-90%. She was also tachycardic to 126 and mildly hypertensive to 153/ 82. BNP was [address]. CXR was concerning for increased pulmonary edema and possible L basilar opacity. CT chest was concerning for LLL collapse with secretions throughout LL bronchi. She received Lasix 40mg IV x 1 in the ED, albuterol neb and methylpred 125mg IV x 1. She also received a dose of Zosyn and was transferred to the ICU for further care. Allergies Allergy/AdvReac Type Severity Reaction Status Date / Time Sulfa (Sulfonamide Allergy Intermediate RASH Verified 11/22/18 12:26 Antibiotics) morphine AdvReac Mild GI SYMPTOMS Verified 11/22/18 12:26 Home Medications Home Medications Medication Instructions Recorded Confirmed Type albuterol sulfate 2.5 mg INHALATION Q4 PRN 10/24/18 11/22/18 History albuterol sulfate [Ventolin HFA] 1 - 2 puff INHALATION Q4 PRN 10/24/18 11/22/18 History aspirin [Aspir-81] 81 mg PO DAILY 10/24/18 11/22/18 History atorvastatin 80 mg PO HS 10/24/18 11/22/18 History carvedilol 18.75 mg PO BID 10/24/18 11/22/18 History clonazepam 0.25 - 0.5 mg PO HS PRN 10/24/18 11/22/18 History clopidogrel 75 mg PO DAILY 10/24/18 11/22/18 History ergocalciferol (vitamin D2) 50,000 unit PO WK 10/24/18 11/22/18 History [Vitamin D2] ezetimibe 10 mg PO HS 10/24/18 11/22/18 History fexofenadine 60 mg PO BID 10/24/18 11/22/18 History fluticasone 2 spray INTRANASAL DAILY 10/24/18 11/22/18 History fluticasone-salmeterol [Advair 1 inh INHALATION BID 10/24/18 11/22/18 History Diskus] furosemide [Lasix] 40 mg PO BID 10/24/18 11/22/18 History guaifenesin [Mucinex] 1,200 mg PO Q12H 10/24/18 11/22/18 History ipratropium-albuterol [Combivent 1 puff INHALATION QID 10/24/18 11/22/18 History Respimat] lisinopril 5 mg PO DAILY 10/24/18 11/22/18 History potassium chloride 20 meq PO DAILY 10/24/18 11/22/18 History pramipexole 0.25 mg PO PM 10/24/18 11/22/18 History sertraline 50 mg PO DAILY 10/24/18 11/22/18 History sodium chloride [[place] Nasal] 1 spray INTRANASAL DIRECTED PRN 10/24/18 History tiotropium bromide [Spiriva with 1 - 2 cap INHALATION Q4 PRN 10/24/18 11/22/18 History HandiHaler] ondansetron HCl [Zofran] 4 mg PO Q6H PRN #10 tab 10/29/18 11/22/18 Rx pantoprazole 40 mg PO BID 30 Days #60 tab 10/29/18 11/22/18 Rx Patient History Medical History CAD (coronary artery disease) s/p IN in 1999 Atrial fibrillation GIB (gastrointestinal bleeding) Reflux esophagitis SAH (subarachnoid hemorrhage) Ischemic cardiomyopathy EF 25-30% Dyslipidemia Hypertension COPD (chronic obstructive pulmonary disease) (Chronic) CHF (congestive heart failure) (Chronic) Pulmonary congestion Non compliance w medication regimen Emphysema of lung Syncope Acute and chronic respiratory failure with hypercapnia Acute and chronic respiratory failure with hypoxia Ambulatory dysfunction (Acute) Surgical History S/P implantation of automatic cardioverter/defibrillator (AICD) S/P carotid endarterectomy S/P hysterectomy S/P carpal tunnel release Family History Other Heart disease Social History marital status: Current Living Situation: Spouse Other Information That Helps Us Care for You: No Feels Safe at Home: Yes Safety Concerns: Feels Safe At This Time Smoking Status: Current every day smoker Tobacco Type: cigarettes Cigarettes per Day: 1-2 a day Do You Dip or Chew Tobacco: No Second Hand Exposure: No Tobacco Cessation Education Requested by Patient: No Hx Alcohol Use: No Hx Substance Use: No Beliefs That Will Affect Care: None Preferred Language: Lao Communication Ability: Effective Auto Damage Appraiser Required: No Review of Systems As per HPI Physical Exam 2 Vital Signs (Past 24 Hours): Last Vital Signs Temp 36.7 C 11/22/18 14:45 Pulse 97 H 11/22/18 14:52 Resp 30 H 11/22/18 14:52 BP 103/59 L 11/22/18 14:45 Pulse Ox 96 11/22/18 14:52 Physical Exam: General: In NAD, resting in bed with mask on with significant air leak and able to speak in full sentences Neuro: Alert and oriented x 4 CV: RRR, no m/r/g, JVD Pulm: Diminished expiratory phase with occasional wheezing, no crackles appreciated, equal breath sounds bilaterally Abdomen: +BS, non-distended, non-tender to palpation in all quadrants LE: No LE edema, or calf tenderness to palpation Results & Data Laboratory Results Abnormal lab results 11/22/18 11/22/18 11/22/18 Range/Units 11:50 11:50 12:01 Hgb 10.1 L (12.0-16.0) g/dL Hct 33.4 L (37-47) % MCV 78.4 L (80-100) fL MCH 23.7 L (25-34) pg MCHC 30.2 L (32-36) g/dL RDW Std Deviation 67.4 H (36.4-46.3) fL RDW Coeff of Kiana 23.6 H (11.5-14.5) % Neut # (Auto) 7.23 H (1.4-6.5) K/uL Lymph # (Auto) 1.06 L (1.2-3.4) K/uL [place] # (Auto) 1.09 H (0.11-0.59) K/uL VBG pCO2 57 H (38-50) mmHg Sodium 134 L (136-145) mmol/L Chloride 97 L (98-107) mmol/L BUN 21 H (7-18) mg/dl BUN/Creatinine Ratio 20.5 H (10-20) Glucose 135 H (70-99) mg/dl Troponin I 0.056 H* (0-0.045) ng/ml NT-Pro-B Natriuret Pep 26043 H (0-900) pg/ml Albumin 2.9 L (3.4-5.0) gm/dl Albumin/Globulin Ratio 0.7 L (0.9-2) Diagnostic Findings CT OF THE CHEST WITHOUT IV CONTRAST CLINICAL HISTORY: Left sided possible mass, fluid or infiltrate. COMPARISON STUDY: Chest CT March 12, 2017. Chest radiograph performed earlier today. CT DOSE: 204.64 mGy.cm TECHNIQUE: Axial images of the chest were obtained without IV contrast. Images were reviewed in the axial, sagittal, and coronal planes. IV contrast was not administered for this examination. Automated exposure control was utilized for the study. A dose lowering technique was utilized adhering to the principles of ALARA. FINDINGS: A left subclavian biventricular pacer/AICD is in place. There is no pneumothorax. Trace right and small left pleural effusions are noted. Left lower lobe collapse is noted. Evaluation for central obstructing mass is suboptimal on this unenhanced exam but there is no definite mass. Suspected secretions within the left lower lobe bronchi are noted. Exam is compromised by respiratory motion. There is moderate emphysema. Central pulmonary arteries are dilated. Minimal right lower lobe airspace opacity is present. Interlobular septal thickening represents interstitial edema. A 1.5 cm subpleural opacity within the right upper lobe on image 91 of 326 favors atelectasis. There is an indeterminate 9 mm nodule within the superior segment of the right lower lobe on image 153. A few old thoracic and lumbar spine compression fractures are present. There is extensive atherosclerotic plaque of the thoracic or abdominal aorta. IMPRESSION: 1. Left lower lobe collapse with secretions throughout the left lower lobe bronchi. No central obstructing mass identified however a follow-up CT in one month to ensure resolution is recommended. 2. Small left and trace right pleural effusions. 3. Moderate emphysema. Dilatation of the central pulmonary arteries indicative of pulmonary arterial hypertension. 4. Mild pulmonary edema. 5. Indeterminate 9 mm nodular opacity within the right lower lobe. This can be assessed on follow-up chest CT. XR chest 1V portable CLINICAL HISTORY: Shortness of breath. COMPARISON STUDY: Chest radiograph October 24, 2018. FINDINGS: A left subclavian biventricular pacer/AICD is in place. There is no pneumothorax. Pulmonary edema has progressed since exam of October 24, 2018. Addition, left basilar opacity with volume loss has increased. There is a probable left pleural effusion. There is a trace right pleural effusion. IMPRESSION: 1. Interval increase in pulmonary edema. 2. Interval increase in left basilar opacity with volume loss which may reflect left lower lobe atelectasis or pneumonia. Radiographic follow up to ensure resolution is recommended. 3. Bilateral pleural effusions, left larger than right. Resident Activity Tracking Resident Involvement: Resident Care Provided Care Provided: [facility] Medicine _ (1) CHF (congestive heart failure) Heart failure chronicity: acute on chronic Heart failure type: unspecified Qualified Code(s): I50.9 - Heart failure, unspecified (2) Anemia Anemia type: unspecified type Bone marrow failure anemia type: Chronic kidney disease stage: Folate deficiency anemia type: Hemolytic anemia type: Iron deficiency anemia type: Other causes of anemia: Vitamin B12 deficiency anemia type: Qualified Code(s): D64.9 - Anemia, unspecified
[2018-11-22] MEDS: ACETYLCYSTEINE 20% INHAL SOLN ***DISPENSED BY RESP. INH SCH ×3 (15:55→23:01)
[2018-11-22] MEDS: ALBUT/IPRATROP 3MG/0.5MG NEB 3 ML VIAL NEB SCH ×3 (15:56→23:01)
[2018-11-22] MEDS ORDERED: ENOXAPARIN INJ 40 MG/0.4 ML SYR SQ SCH (16:15)
[2018-11-22] MEDS: ACETAMINOPHEN 325 MG TAB PO PRN (16:18)
[2018-11-22] MEDS: LORazepam 0.5 MG TAB PO PRN (18:05)
--- NOTE | 2018-11-22 18:10 | Emergency Department Note ---
Entered by Luba Campos acting as a scribe for History of Present Illness General Chief complaint: Respiratory Problems Stated complaint: sob Time Seen by Provider: 11/22/18 11:47 Source: patient Mode of arrival: EMS Limitations: no limitations History of Present Illness Onset (ago): day(s) 2 Location: chest Pain Consistency: + other (worsening) Associated symptoms: + cough and + shortness of breath; no fever/chills (The patient denies fever.) and no nausea/vomiting (The patient denies vomiting. ) Treatments prior to arrival: other (Duoneb) The patient is a 73 year old female with COPD, CHF, and Pacemaker/defibrillator who presents to the ED via EMS with complaints of worsening shortness of breath that onset 2 days ago. The patient complains of cough. The patient denies fever , vomiting, and chest pain. The patient received 2 Duoneb treatments and CPAP in route. The patient was discharged from the hospital on October 29 for pneumonia with an exacerbation of COPD. It was noted that she has an injection fraction of 25-30%. Home Medications Home Medications Medication Instructions Recorded Confirmed Type albuterol sulfate 2.5 mg INHALATION Q4 PRN 10/24/18 11/22/18 History albuterol sulfate [Ventolin HFA] 1 - 2 puff INHALATION Q4 PRN 10/24/18 11/22/18 History aspirin [Aspir-81] 81 mg PO DAILY 10/24/18 11/22/18 History atorvastatin 80 mg PO HS 10/24/18 11/22/18 History carvedilol 18.75 mg PO BID 10/24/18 11/22/18 History clonazepam 0.25 - 0.5 mg PO HS PRN 10/24/18 11/22/18 History clopidogrel 75 mg PO DAILY 10/24/18 11/22/18 History ergocalciferol (vitamin D2) 50,000 unit PO WK 10/24/18 11/22/18 History [Vitamin D2] ezetimibe 10 mg PO HS 10/24/18 11/22/18 History fexofenadine 60 mg PO BID 10/24/18 11/22/18 History fluticasone 2 spray INTRANASAL DAILY 10/24/18 11/22/18 History fluticasone-salmeterol [Advair 1 inh INHALATION BID 10/24/18 11/22/18 History Diskus] furosemide [Lasix] 40 mg PO BID 10/24/18 11/22/18 History guaifenesin [Mucinex] 1,200 mg PO Q12H 10/24/18 11/22/18 History ipratropium-albuterol [Combivent 1 puff INHALATION QID 10/24/18 11/22/18 History Respimat] lisinopril 5 mg PO DAILY 10/24/18 11/22/18 History potassium chloride 20 meq PO DAILY 10/24/18 11/22/18 History pramipexole 0.25 mg PO PM 10/24/18 11/22/18 History sertraline 50 mg PO DAILY 10/24/18 11/22/18 History sodium chloride [[place] Nasal] 1 spray INTRANASAL DIRECTED PRN 10/24/18 History tiotropium bromide [Spiriva with 1 - 2 cap INHALATION Q4 PRN 10/24/18 11/22/18 History HandiHaler] ondansetron HCl [Zofran] 4 mg PO Q6H PRN #10 tab 10/29/18 11/22/18 Rx pantoprazole 40 mg PO BID 30 Days #60 tab 10/29/18 11/22/18 Rx Allergies Allergy/AdvReac Type Severity Reaction Status Date / Time Sulfa (Sulfonamide Allergy Intermediate RASH Verified 11/22/18 12:26 Antibiotics) morphine AdvReac Mild GI SYMPTOMS Verified 11/22/18 12:26 Past Med/Surg History Medical History CAD (coronary artery disease) s/p HI in 1999 Atrial fibrillation GIB (gastrointestinal bleeding) Reflux esophagitis SAH (subarachnoid hemorrhage) Ischemic cardiomyopathy EF 25-30% Dyslipidemia Hypertension COPD (chronic obstructive pulmonary disease) (Chronic) CHF (congestive heart failure) (Chronic) Pulmonary congestion Non compliance w medication regimen Emphysema of lung Syncope Acute and chronic respiratory failure with hypercapnia Acute and chronic respiratory failure with hypoxia Ambulatory dysfunction (Acute) Surgical History S/P implantation of automatic cardioverter/defibrillator (AICD) S/P carotid endarterectomy S/P hysterectomy S/P carpal tunnel release Family History Other Heart disease Social History marital status: Current Living Situation: Spouse Other Information That Helps Us Care for You: No Feels Safe at Home: Yes Safety Concerns: Feels Safe At This Time Smoking Status: Current every day smoker Tobacco Type: cigarettes Cigarettes per Day: 1-2 a day Do You Dip or Chew Tobacco: No Second Hand Exposure: No Tobacco Cessation Education Requested by Patient: No Hx Alcohol Use: No Hx Substance Use: No Beliefs That Will Affect Care: None Preferred Language: Urdu Communication Ability: Effective End Maker Required: No Review of Systems See HPI for pertinent positives & negatives. and A total of 10 systems reviewed and were otherwise negative Physical Exam Vital Signs Vital Signs - 24 hr 11/22/18 11:40 11/22/18 11:49 11/22/18 11:54 Temperature 36.7 C Temperature Source Oral Sepsis Recent Fever Within 48 Hours No Sepsis Action Taken by Nursing No Action Required Pulse Rate 126 H 133 H Pulse Rate [Apical] Pulse Rhythm [Apical] Respiratory Rate 34 H 35 H Respiratory Effort / Characteristics Labored Retracting Spontaneous Accessory Muscle Use Labored Respiratory Depth Normal Respiratory Pattern Regular Blood Pressure 153/82 H Blood Pressure [Left Arm] Blood Pressure Mean 105 Blood Pressure Mean [Left Arm] Blood Pressure Position [Left Arm] Pulse Oximetry 98 98 95 Oxygen Delivery Method BiPAP BiPAP Fraction of Inspired Oxygen 40 SaO2/FiO2 Ratio 11/22/18 12:17 11/22/18 12:30 11/22/18 12:43 Temperature Temperature Source Sepsis Recent Fever Within 48 Hours Sepsis Action Taken by Nursing Pulse Rate Pulse Rate [Apical] 106 H 98 H 106 H Pulse Rhythm [Apical] Regular Regular Respiratory Rate 30 H 30 H 34 H Respiratory Effort / Characteristics Labored Short of Breath Labored Short of Breath Spontaneous Moaning Short of Breath Respiratory Depth Respiratory Pattern Blood Pressure Blood Pressure [Left Arm] 107/52 L 116/46 L Blood Pressure Mean Blood Pressure Mean [Left Arm] 70 69 Blood Pressure Position [Left Arm] Pulse Oximetry 92 91 91 Oxygen Delivery Method BiPAP BiPAP BiPAP Fraction of Inspired Oxygen 40 40 SaO2/FiO2 Ratio 227 11/22/18 13:15 11/22/18 13:17 11/22/18 14:00 Temperature Temperature Source Sepsis Recent Fever Within 48 Hours Sepsis Action Taken by Nursing Pulse Rate Pulse Rate [Apical] 100 H 99 H Pulse Rhythm [Apical] Regular Respiratory Rate 30 H 29 H Respiratory Effort / Characteristics Spontaneous Accessory Muscle Use Labored SOB on Exertion Spontaneous Labored Labored Short of Breath Respiratory Depth Shallow Respiratory Pattern Tachypnea Blood Pressure Blood Pressure [Left Arm] 114/56 L 109/61 Blood Pressure Mean Blood Pressure Mean [Left Arm] 75 77 Blood Pressure Position [Left Arm] Left Lateral Pulse Oximetry 89 L 88 L Oxygen Delivery Method BiPAP BiPAP BiPAP Fraction of Inspired Oxygen 40 40 SaO2/FiO2 Ratio 220 11/22/18 14:44 11/22/18 14:45 11/22/18 14:50 Temperature 36.7 C Temperature Source Sepsis Recent Fever Within 48 Hours Sepsis Action Taken by Nursing Pulse Rate 101 H 97 H Pulse Rate [Apical] Pulse Rhythm [Apical] Respiratory Rate 31 H 22 Respiratory Effort / Characteristics Spontaneous SOB on Exertion Respiratory Depth Normal Respiratory Pattern Regular Blood Pressure 110/70 103/59 L Blood Pressure [Left Arm] Blood Pressure Mean 73 Blood Pressure Mean [Left Arm] Blood Pressure Position [Left Arm] Pulse Oximetry 89 L 94 Oxygen Delivery Method BiPAP BiPAP BiPAP Fraction of Inspired Oxygen 40 40 SaO2/FiO2 Ratio 11/22/18 14:52 11/22/18 15:48 11/22/18 16:00 Temperature Temperature Source Sepsis Recent Fever Within 48 Hours Sepsis Action Taken by Nursing Pulse Rate 97 H Pulse Rate [Apical] 101 H 98 H Pulse Rhythm [Apical] Respiratory Rate 30 H 28 H 20 Respiratory Effort / Characteristics Respiratory Depth Respiratory Pattern Blood Pressure Blood Pressure [Left Arm] 107/55 L Blood Pressure Mean Blood Pressure Mean [Left Arm] 72 Blood Pressure Position [Left Arm] Pulse Oximetry 96 95 93 Oxygen Delivery Method CPAP BiPAP Fraction of Inspired Oxygen 60 50 40 SaO2/FiO2 Ratio 232 11/22/18 16:03 11/22/18 17:00 Temperature Temperature Source Sepsis Recent Fever Within 48 Hours Sepsis Action Taken by Nursing Pulse Rate Pulse Rate [Apical] 97 H Pulse Rhythm [Apical] Respiratory Rate 24 20 Respiratory Effort / Characteristics Respiratory Depth Respiratory Pattern Blood Pressure Blood Pressure [Left Arm] 102/48 L Blood Pressure Mean Blood Pressure Mean [Left Arm] 66 Blood Pressure Position [Left Arm] Pulse Oximetry 94 90 Oxygen Delivery Method BiPAP Fraction of Inspired Oxygen 50 40 SaO2/FiO2 Ratio 225 GENERAL: Patient is in significant respiratory distress. HEENT: No acute trauma, normocephalic atraumatic, mucous membranes moist, no nasal congestion, no scleral icterus. NECK: No stridor, no adenopathy, no meningismus, trachea is midline. LUNGS: Significant respiratory distress. Diminished breath sounds on left, increased respiratory rate with some accessory muscle use. No current wheezing, no obvious crackles. HEART: Could not hear the heart tones secondary to her breathing ABDOMEN: Soft, nontender, bowel sounds positive, no hernias, no peritonitis. EXTREMITIES: No cyanosis or edema, full range of motion of all the joints without pain or difficulty, no signs for acute trauma. NEUROLOGIC: Oriented x 3, no acute motor or sensory deficits, no focal weakness. SKIN: No rash, no jaundice, no diaphoresis. Course 1141: Past medical records reviewed. The patient was evaluated in room A09B, and a complete history and physical examination were performed. 1245: I paged Dr. Roderick Barr -[facility], [place]. 1332: I reviewed the patient's case with Dr. Nolan - Internal Medicine -ICU. He states to bring the patient up to the ICU. He will send down his PA to see the patient. 1334: I reviewed the patient's case with Dr. Roderick Barr -[facility], [place]. He will evaluate the patient for further management. 1336: The patient looks slightly better. Consultations Consultation #1: 1245: I paged Dr. Roderick Barr -[facility], [place]. Time: 12:45 Consultation #2: 1332: I reviewed the patient's case with Dr. Nolan - Internal Medicine -ICU. He states to bring the patient up to the ICU. He will send down his PA to see the patient. Time: 13:32 Consultation #3: 1334: I reviewed the patient's case with Dr. Roderick Barr -[facility] [place]. He will evaluate the patient for further management. Time: 13:34 Administered Medications Acetaminophen (Tylenol) 650 mg PO Q6H PRN PRN Reason: Pain Stop: 12/22/18 15:38 Last Admin: 11/22/18 16:18 Dose: 650 mg Acetylcysteine (Mucomyst 20%) 3 ml INH Q4H YOSHI Stop: 11/22/18 23:46 Last Admin: 11/22/18 15:55 Dose: 3 ml Albuterol (Duoneb) 3 ml NEB QIDR YOSHI Stop: 12/22/18 15:59 Last Admin: 11/22/18 15:56 Dose: 3 ml Nitroglycerin/Dextrose (Nitroglycerin/D5w 100 Mcg/Ml) 250 mls @ 0 mls/hr IV .Q0M OYSHI; Protocol Stop: 12/22/18 14:29 Last Titration: 11/22/18 16:55 Dose: 0 mcg/min, 0 mls/hr Admin: 11/22/18 15:29 Dose: 5 mcg/min, 3 mls/hr Discontinued Medications Albuterol (Duoneb) 3 ml NEB NOW STA Stop: 11/22/18 12:32 Last Admin: 11/22/18 12:43 Dose: 3 ml Furosemide (Lasix) 40 mg IV NOW STA Stop: 11/22/18 12:33 Last Admin: 11/22/18 12:48 Dose: 40 mg Piperacillin Sod/Tazobactam Sod (Zosyn) 4.5 gm in 120 mls @ 240 mls/hr IV NOW ONE Stop: 11/22/18 13:10 Last Infusion: 11/22/18 13:33 Dose: 0 mls/hr Admin: 11/22/18 12:54 Dose: 240 mls/hr Furosemide 40 mg/ Syringe 4 mls @ 4 mls/min IV 1500 ONE Stop: 11/22/18 15:01 Last Admin: 11/22/18 15:31 Dose: 4 mls/min Methylprednisolone (Solumedrol) 125 mg IV NOW STA Stop: 11/22/18 11:48 Last Admin: 11/22/18 12:04 Dose: 125 mg Nitroglycerin (Nitro-Bid 2%) 1 inch EXT NOW STA Stop: 11/22/18 12:34 Last Admin: 11/22/18 12:49 Dose: 1 inch Medical Decision Making Differential Diagnosis Differential Diagnoses Include: CHF, bronchitis, PNA, influenza, HI, exacerbation of COPD, anemia, electrolyte imbalance. Medical Records Attestation: I reviewed the patient's medical records. Home Medications Current Medication List: was personally reviewed by me Laboratory Data Attestation: I reviewed the patient's lab results. Result diagrams: 11/22/18 11:50 11/22/18 11:50 Lab Results 11/22/18 11/22/18 11/22/18 Range/Units 11:50 11:50 11:50 WBC 9.51 (4.8-10.8) K/uL RBC 4.26 (4.2-5.4) M/uL Hgb 10.1 L (12.0-16.0) g/dL Hct 33.4 L (37-47) % MCV 78.4 L (80-100) fL MCH 23.7 L (25-34) pg MCHC 30.2 L (32-36) g/dL RDW Std Deviation 67.4 H (36.4-46.3) fL RDW Coeff of Kiana 23.6 H (11.5-14.5) % Plt Count 265 (130-400) K/uL MPV 9.4 (7.4-10.4) fL Immature Gran % (Auto) 0.2 % Neut % (Auto) 76.0 % Lymph % (Auto) 11.1 % [place] % (Auto) 11.5 % Eos % (Auto) 1.1 % Baso % (Auto) 0.1 % Immature Gran # (Auto) 0.02 (0.00-0.02) K/uL Neut # (Auto) 7.23 H (1.4-6.5) K/uL Lymph # (Auto) 1.06 L (1.2-3.4) K/uL [place] # (Auto) 1.09 H (0.11-0.59) K/uL Eos # (Auto) 0.10 (0-0.5) K/uL Baso # (Auto) 0.01 (0-0.2) K/uL Anisocytosis Present Tear Drop Cells 1+ Ovalocytes 1+ Schistocytes 1+ PT 10.7 (9.0-12.0) Seconds INR 1.1 (0.9-1.1) APTT 26.5 (21.0-31.0) Seconds PTT Ratio 1.0 VBG pH (7.36-7.41) VBG pCO2 (38-50) mmHg VBG pO2 mmHg VBG HCO3 mmol/L VBG O2 Saturation % VBG Base Excess mEq/L Barometric Pressure mm/Hg Sodium (136-145) mmol/L Potassium (3.5-5.1) mmol/L Chloride (98-107) mmol/L Carbon Dioxide (21-32) mmol/L Anion Gap (3-11) BUN (7-18) mg/dl Creatinine (0.6-1.2) mg/dl Est Cr Clr Drug Dosing ml/min Est GFR ( Amer) Est GFR (Non-Af Amer) BUN/Creatinine Ratio (10-20) Glucose (70-99) mg/dl Calcium (8.5-10.1) mg/dl Magnesium Cancelled Total Bilirubin (0.2-1) mg/dl AST (15-37) U/L ALT (12-78) U/L Alkaline Phosphatase (45-117) U/L Troponin I (0-0.045) ng/ml NT-Pro-B Natriuret Pep Cancelled Total Protein (6.4-8.2) gm/dl Albumin (3.4-5.0) gm/dl Globulin (2.5-4.0) gm/dl Albumin/Globulin Ratio (0.9-2) Procalcitonin (0-0.5) ng/ml Specimen Hemolysis Nasal Screen MRSA (PCR) (Negative) Influenza Type A (PCR) (Neg) Influenza Type B (PCR) (Neg) 11/22/18 11/22/18 11/22/18 Range/Units 11:50 11:50 12:01 WBC (4.8-10.8) K/uL RBC (4.2-5.4) M/uL Hgb (12.0-16.0) g/dL Hct (37-47) % MCV (80-100) fL MCH (25-34) pg MCHC (32-36) g/dL RDW Std Deviation (36.4-46.3) fL RDW Coeff of Kiana (11.5-14.5) % Plt Count (130-400) K/uL MPV (7.4-10.4) fL Immature Gran % (Auto) % Neut % (Auto) % Lymph % (Auto) % [place] % (Auto) % Eos % (Auto) % Baso % (Auto) % Immature Gran # (Auto) (0.00-0.02) K/uL Neut # (Auto) (1.4-6.5) K/uL Lymph # (Auto) (1.2-3.4) K/uL [place] # (Auto) (0.11-0.59) K/uL Eos # (Auto) (0-0.5) K/uL Baso # (Auto) (0-0.2) K/uL Anisocytosis Tear Drop Cells Ovalocytes Schistocytes PT (9.0-12.0) Seconds INR (0.9-1.1) APTT (21.0-31.0) Seconds PTT Ratio VBG pH 7.38 (7.36-7.41) VBG pCO2 57 H (38-50) mmHg VBG pO2 25 mmHg VBG HCO3 33 mmol/L VBG O2 Saturation < 60.0 % VBG Base Excess 6.3 mEq/L Barometric Pressure 730.1 mm/Hg Sodium 134 L (136-145) mmol/L Potassium 4.7 (3.5-5.1) mmol/L Chloride 97 L (98-107) mmol/L Carbon Dioxide 31 (21-32) mmol/L Anion Gap 6.0 (3-11) BUN 21 H (7-18) mg/dl Creatinine 1.02 (0.6-1.2) mg/dl Est Cr Clr Drug Dosing 34.4 ml/min Est GFR ( Amer) 62.8 Est GFR (Non-Af Amer) 54.1 BUN/Creatinine Ratio 20.5 H (10-20) Glucose 135 H (70-99) mg/dl Calcium 8.8 (8.5-10.1) mg/dl Magnesium 1.8 Total Bilirubin 0.5 (0.2-1) mg/dl AST 35 (15-37) U/L ALT 53 (12-78) U/L Alkaline Phosphatase 83 (45-117) U/L Troponin I 0.056 H* (0-0.045) ng/ml NT-Pro-B Natriuret Pep 36492 H Total Protein 6.9 (6.4-8.2) gm/dl Albumin 2.9 L (3.4-5.0) gm/dl Globulin 4.0 (2.5-4.0) gm/dl Albumin/Globulin Ratio 0.7 L (0.9-2) Procalcitonin < 0.05 (0-0.5) ng/ml Specimen Hemolysis Nasal Screen MRSA (PCR) (Negative) Influenza Type A (PCR) (Neg) Influenza Type B (PCR) (Neg) 11/22/18 11/22/18 Range/Units 12:24 14:42 WBC (4.8-10.8) K/uL RBC (4.2-5.4) M/uL Hgb (12.0-16.0) g/dL Hct (37-47) % MCV (80-100) fL MCH (25-34) pg MCHC (32-36) g/dL RDW Std Deviation (36.4-46.3) fL RDW Coeff of Kiana (11.5-14.5) % Plt Count (130-400) K/uL MPV (7.4-10.4) fL Immature Gran % (Auto) % Neut % (Auto) % Lymph % (Auto) % [place] % (Auto) % Eos % (Auto) % Baso % (Auto) % Immature Gran # (Auto) (0.00-0.02) K/uL Neut # (Auto) (1.4-6.5) K/uL Lymph # (Auto) (1.2-3.4) K/uL [place] # (Auto) (0.11-0.59) K/uL Eos # (Auto) (0-0.5) K/uL Baso # (Auto) (0-0.2) K/uL Anisocytosis Tear Drop Cells Ovalocytes Schistocytes PT (9.0-12.0) Seconds INR (0.9-1.1) APTT (21.0-31.0) Seconds PTT Ratio VBG pH (7.36-7.41) VBG pCO2 (38-50) mmHg VBG pO2 mmHg VBG HCO3 mmol/L VBG O2 Saturation % VBG Base Excess mEq/L Barometric Pressure mm/Hg Sodium (136-145) mmol/L Potassium (3.5-5.1) mmol/L Chloride (98-107) mmol/L Carbon Dioxide (21-32) mmol/L Anion Gap (3-11) BUN (7-18) mg/dl Creatinine (0.6-1.2) mg/dl Est Cr Clr Drug Dosing ml/min Est GFR ( Amer) Est GFR (Non-Af Amer) BUN/Creatinine Ratio (10-20) Glucose (70-99) mg/dl Calcium (8.5-10.1) mg/dl Magnesium Total Bilirubin (0.2-1) mg/dl AST (15-37) U/L ALT (12-78) U/L Alkaline Phosphatase (45-117) U/L Troponin I (0-0.045) ng/ml NT-Pro-B Natriuret Pep Total Protein (6.4-8.2) gm/dl Albumin (3.4-5.0) gm/dl Globulin (2.5-4.0) gm/dl Albumin/Globulin Ratio (0.9-2) Procalcitonin (0-0.5) ng/ml Specimen Hemolysis Nasal Screen MRSA (PCR) Negative (Negative) Influenza Type A (PCR) Neg for Influ A (Neg) Influenza Type B (PCR) Neg for Influ B (Neg) Imaging Data Radiologist's Impression: Radiology results as stated below per my review and the radiologist's interpretation: XR chest 1V portable CLINICAL HISTORY: Shortness of breath. COMPARISON STUDY: Chest radiograph October 24, 2018. FINDINGS: A left subclavian biventricular pacer/AICD is in place. There is no pneumothorax. Pulmonary edema has progressed since exam of October 24, 2018. Addition, left basilar opacity with volume loss has increased. There is a probable left pleural effusion. There is a trace right pleural effusion. IMPRESSION: 1. Interval increase in pulmonary edema. 2. Interval increase in left basilar opacity with volume loss which may reflect left lower lobe atelectasis or pneumonia. Radiographic follow up to ensure resolution is recommended. 3. Bilateral pleural effusions, left larger than right. Electronically signed by: Bora Schmitt M.D. 11/22/2018 12:25 PM Dictated: 11/22/18 1223 Transcribed: 11/22/18 1223 ECG Data Attestation: I personally reviewed and interpreted this ECG as follows: Indication: SOB/dyspnea Rate (beats per minute): 119 Rhythm: other (ventricularly paced marker) Findings: no PVC and no ST elevation (no obvious ST elevtaiton) Blood Pressure Blood Pressure Findings: Normal blood pressure MDM Narrative There is no leukocytosis. The patient is anemic but this is baseline looking back at previous testing. No coagulopathy. VBG does not show acidosis, some mild CO2 retention was seen. No significant electrolyte abnormality or kidney failure. No hepatitis. BNP was elevated consistent with fluid overload/CHF. EKG shows a paced rhythm. No obvious ischemia. Cardiac enzyme testing x1 was slightly elevated, this has been documented in the past and may be more of a chronic issue for her. Influenza testing was negative. Chest film shows a left lung opacity, this could be consistent with pneumonia, mass or fluid. Patient was quite short of breath. She was aggressively managed. She was placed on BiPAP. She received a DuoNeb. She received IV Lasix and Nitropaste. She was given IV Zosyn as antibiotic coverage. She was given IV Solu-Medrol. The patient does seem somewhat improved although she is still dyspneic. She is clearly not able to be discharged home. I discussed the need for a hospital stay with her. I did speak to the ICU attending, I spoke with the on-call hospitalist and case management. A chest CT was ordered to better evaluate the findings of the left lung. This result is currently pending. The patient is quite short of breath. I suspect her dyspnea is multifactorial. There is some fluid overload/CHF. She does have an exacerbation of COPD. The left lung opacity/pneumonia is of course also a contributing factor to her dyspnea. Impression & Plan Respiratory distress, CHF (congestive heart failure), Pleural effusion, PNA ( pneumonia) Critical Care Time I have personally spent greater than 37 minutes of critical care time in the direct management of this patient. This includes bedside care, interpretation of diagnostic studies, and testing, discussion with consultants, patient, and family members, and other required patient management activities. This 37 minutes is in excess of all separately billable procedures. Critical Care Time: Yes (37) Total Critical Care Time: 37 Discharge Plan Visit Data *Final* Discharge Date/Time: 11/22/18 14:44 Chief Complaint: Respiratory Problems Stated Complaint: sob ED Provider: Antonio Hernandez Discharge Problem: Respiratory distress, CHF (congestive heart failure), Pleural effusion, PNA ( pneumonia) Patient Disposition: Admitted As Inpatient Discharge Instructions Interventions: ED Discharge Assessment Last Done: 11/22/18 14:44 The scribe's documentation has been prepared under my direction and personally reviewed by me in its entirety. I confirm that the note above accurately reflects all work, treatment, procedures, and medical decision making performed by me.
[2018-11-22] MEDS: methylPREDNISolone 60 MG in SYRINGE 0 ML IV SCH (19:48)
[2018-11-22] MEDS: CARVEDILOL 12.5 MG TAB PO SCH (19:50)
[2018-11-22] MEDS: HEPARIN SOD 5,000 UNIT/0.5 ML VIAL SQ SCH (19:52)
[2018-11-22] MEDS: ATORVASTATIN 40 MG TAB PO SCH (19:53)
[2018-11-22] MEDS: PRAMIPEXOLE DIHYDROCHLO 0.25 MG TAB PO SCH (19:54)
[2018-11-22] MEDS: guaiFENesin 600 MG TABCR PO SCH (19:54)
[2018-11-22] MEDS: PANTOprazole 40 MG TAB PO SCH (19:55)
[2018-11-22] MEDS: EZETIMIBE 10 MG TABLET PO SCH (19:56)
[2018-11-23] MEDS: methylPREDNISolone 60 MG in SYRINGE 0 ML IV SCH ×3 (03:37→19:48)
--- NOTE | 2018-11-23 04:31 | Critical Care Progress Note ---
Date of Service November 23, 2018 Assessment & Plan (1) Respiratory distress: 73 y/oF with hx of severe COPD/emphysema (on 4-5L O2 at home), systolic CHF EF 25-30%, CAD s/p ID in 1999 with biventricular pacemaker and ICD, ischemic cardiomyopathy, AFib, HTN, HLD, hx of GI bleed, reflux esophagitis and anxiety presented with progressive SOB and productive cough for 2 days. Concern for significant mucoid impaction of the left lower lobe vs. mild CHF exacerbation. NEURO: Alert and oriented CAM ICU: negative Pain: Tylenol PRN Ativan PRN for anxiety Continue home clonazepam PRN, pramipexole and sertraline CARDIAC/VASCULAR: Concern for CHF exacerbation PMhx: systolic CHF EF 25-30%, CAD s/p ID in 1999 with biventricular pacemaker and ICD, ischemic cardiomyopathy, AFib, HTN, HLD ECHO 2017: EF 25-30%, LV moderately dilated, lateral wall and apex akinesis, basal portion anterior and inferior borges moderately hypokinetic EK atrial sensed and ventricular paced rthythm QTc 528 CXR: interval increase in pulmonary edema CT chest: mild pulmonary edema Troponin 0.056 -> 0.086 -> 0.067 BNP [id number] Received Lasix 40mg IV x 2 with 1500cc diuresis Started on nitroglycerin drip and received nitropaste initially - held due to low BP parameters Continue home aspirin, clopidogrel, carvedilol, lisinopril, zetia and atorvastatin PULM: Respiratory distress in the setting of significant mucoid impaction of bronchi vs. mild CHF On CPAP peep 10, FiO2 35%, Rate 12 Initial ABG: Ph 7.38, CO2 57, pO2 25, HCO3 33 Initial CXR: interval increase in pulmonary edema, L basilar opacity and bilateral pleural effusion L >R Repeat CXR: improving pulm edema but persistent LLL opacity CT chest: mild pulmonary edema, LLL collapse with secretions throughout LL bronchi, small L and trace R pleural effusion, moderate emphysema, pulmonary arterial hypertension findings, LLL 9mm nodular opacity Solumedrol 60mg Q8H Duoneb QID Osmani Received Mucomyist neb Q4H x 3 Chest physiotherapy QID NPO for possible bronchoscopy today Follow up Chest CT needed for LLL 9mm nodular opacity GI: LFT wnl NPO for possible bronchoscopy Continue home protonix RENAL/LYTES: BUN/Cr 21/1.02 -> 25/0.99 Diuresed 1500cc. Net -1315 Hypokalemia, 3.3 - repleted with 40meq KCL Continue home KCL 20meq Follow BMP : Tyson in place ENDO: No hx of DM or hypothyroidism BSG checks and SSI per ICU protocol HEME: Hx of chronic anemia and previous GI bleed likely iron def. anemia Hgb stable at 9.5 (baseline around 9) MCV 78.4 Coags wnl ID: No concern for acute infection at this time Afebrile, WBC wnl BCx x 2 pending procal <0.015 MRSA swab neg influenza negative Received Zosyn x 1 in the ED LINES: PIVs x 2 DVT prophylaxis: Heparin 5000u SQ Q12H Code: Full Dispo: pending clinical improvement (2) CHF (congestive heart failure): (3) CAD (coronary artery disease): (4) Atrial fibrillation: (5) GIB (gastrointestinal bleeding): (6) Dyslipidemia: (7) Hypertension: (8) Anxiety: (9) Anemia: (10) Pulmonary congestion: Supervising Physician Co-Signing Physician Notes Dr. Blum was resident physician during care of patient. I separately evaluated patient for jacobsen portions of the history and the exam. I was present during the critical portion of medical decision making, and I discussed the case with the resident. I generally agree with the findings and plan. Significant mucoid impaction of the left lower lobe. Mild improvement overnight however no significant improvement in dense impaction on radiography. Successfully tolerated bronchoscopy today. Was able to liberate from noninvasive ventilator at 10 AM, saturating 95% on 4 L nasal cannula after bronchoscopy. I have personally spent 35 minutes of critical care time in the direct management of this patient. This is a life/limb threatening event. This includes time spent evaluating patient, direct bedside care, chart review, placing orders, interpretation of diagnostic studies, discussion with consultants, patient, and/or family members regarding treatment decisions, as well as other required patient management activities. This time is exclusive of all separately billable procedures, and teaching time and separate from and in addition to any other critical care service time. Subjective This AM pt reports breathing improving. Remains on CPAP Denies any BAHENA/dizziness, f/c, cp, n/v, abdominal pain Physical Exam 2 Vital Signs (Past 24 Hours): Last Vital Signs Temp 36.5 C 11/23/18 03:49 Pulse 79 11/23/18 03:49 Resp 30 H 11/23/18 03:49 BP 110/47 L 11/23/18 03:49 Pulse Ox 91 11/23/18 03:49 Physical Exam: General: In NAD, resting in bed with mask on and able to speak in full sentences Neuro: Alert and oriented x 4 CV: RRR, no m/r/g, JVD Pulm: Diminished BS over LLL and LML regions, occasional wheezing appreciated, no crackles appreciated Abdomen: +BS, non-distended, non-tender to palpation in all quadrants LE: No LE edema, or calf tenderness to palpation Results & Data Laboratory Results Abnormal lab results 11/22/18 11/22/18 11/22/18 Range/Units 11:50 11:50 12:01 RBC (4.2-5.4) M/uL Hgb 10.1 L (12.0-16.0) g/dL Hct 33.4 L (37-47) % MCV 78.4 L (80-100) fL MCH 23.7 L (25-34) pg MCHC 30.2 L (32-36) g/dL RDW Std Deviation 67.4 H (36.4-46.3) fL RDW Coeff of Kiana 23.6 H (11.5-14.5) % Neut # (Auto) 7.23 H (1.4-6.5) K/uL Lymph # (Auto) 1.06 L (1.2-3.4) K/uL [place] # (Auto) 1.09 H (0.11-0.59) K/uL VBG pCO2 57 H (38-50) mmHg Sodium 134 L (136-145) mmol/L Potassium (3.5-5.1) mmol/L Chloride 97 L (98-107) mmol/L BUN 21 H (7-18) mg/dl BUN/Creatinine Ratio 20.5 H (10-20) Glucose 135 H (70-99) mg/dl POC Glucose (70-99) Troponin I 0.056 H* (0-0.045) ng/ml NT-Pro-B Natriuret Pep [id number] H (0-900) pg/ml Albumin 2.9 L (3.4-5.0) gm/dl Albumin/Globulin Ratio 0.7 L (0.9-2) 11/22/18 11/22/18 11/22/18 Range/Units 18:03 20:13 23:25 RBC (4.2-5.4) M/uL Hgb (12.0-16.0) g/dL Hct (37-47) % MCV (80-100) fL MCH (25-34) pg MCHC (32-36) g/dL RDW Std Deviation (36.4-46.3) fL RDW Coeff of Kiana (11.5-14.5) % Neut # (Auto) (1.4-6.5) K/uL Lymph # (Auto) (1.2-3.4) K/uL [place] # (Auto) (0.11-0.59) K/uL VBG pCO2 (38-50) mmHg Sodium (136-145) mmol/L Potassium (3.5-5.1) mmol/L Chloride (98-107) mmol/L BUN (7-18) mg/dl BUN/Creatinine Ratio (10-20) Glucose (70-99) mg/dl POC Glucose 135 H 139 H (70-99) Troponin I 0.086 H* (0-0.045) ng/ml NT-Pro-B Natriuret Pep (0-900) pg/ml Albumin (3.4-5.0) gm/dl Albumin/Globulin Ratio (0.9-2) 11/23/18 11/23/18 11/23/18 Range/Units 04:08 04:08 05:58 RBC 3.97 L (4.2-5.4) M/uL Hgb 9.5 L (12.0-16.0) g/dL Hct 30.8 L (37-47) % MCV 77.6 L (80-100) fL MCH 23.9 L (25-34) pg MCHC 30.8 L (32-36) g/dL RDW Std Deviation 65.9 H (36.4-46.3) fL RDW Coeff of Kiana 23.2 H (11.5-14.5) % Neut # (Auto) (1.4-6.5) K/uL Lymph # (Auto) 0.82 L (1.2-3.4) K/uL [place] # (Auto) (0.11-0.59) K/uL VBG pCO2 (38-50) mmHg Sodium (136-145) mmol/L Potassium 3.3 L D (3.5-5.1) mmol/L Chloride (98-107) mmol/L BUN 25 H (7-18) mg/dl BUN/Creatinine Ratio 25.8 H (10-20) Glucose 122 H (70-99) mg/dl POC Glucose 132 H (70-99) Troponin I 0.067 H* (0-0.045) ng/ml NT-Pro-B Natriuret Pep (0-900) pg/ml Albumin (3.4-5.0) gm/dl Albumin/Globulin Ratio (0.9-2) Diagnostic Findings Repeat CXR this AM with improved pulmonary edema but persistent LLL opacity Medications Administered Current Inpatient Medications Acetaminophen (Tylenol) 650 mg PO Q6H PRN PRN Reason: Pain Stop: 12/22/18 15:38 Last Admin: 11/22/18 16:18 Dose: 650 mg Albuterol (Duoneb) 3 ml NEB QIDR OSMANI Stop: 12/22/18 15:59 Last Admin: 11/22/18 23:01 Dose: 3 ml Aspirin (Ecotrin Ectab) 81 mg PO DAILY OSMANI Stop: 12/23/18 08:59 Atorvastatin Calcium (Lipitor) 80 mg PO HS OSMANI Stop: 12/22/18 20:59 Last Admin: 11/22/18 19:53 Dose: 80 mg Carvedilol (Coreg) 18.75 mg PO BID OSMANI Stop: 12/22/18 20:59 Last Admin: 11/22/18 19:50 Dose: 18.75 mg Clonazepam (Klonopin) 0.5 mg PO HS PRN PRN Reason: Sleep Stop: 12/22/18 14:54 Last Admin: 11/22/18 20:11 Dose: 0.5 mg Clopidogrel Bisulfate (Plavix) 75 mg PO DAILY OSMANI Stop: 12/23/18 08:59 Ezetimibe (Zetia) 10 mg PO HS OSMANI Stop: 12/22/18 20:59 Last Admin: 11/22/18 19:56 Dose: 10 mg Fentanyl Citrate (Fentanyl Citrate) 200 mcg IV TODAY@0800 [facility] Stop: 11/23/18 12:00 Guaifenesin (Mucinex) 1,200 mg PO Q12H [facility] Stop: 12/22/18 20:59 Last Admin: 11/22/18 19:54 Dose: 1,200 mg Heparin Sodium (Porcine) (Heparin Sodium (Porcine)) 5,000 units SQ Q12 [facility] Stop: 12/22/18 20:59 Last Admin: 11/22/18 19:52 Dose: 5,000 units Nitroglycerin/Dextrose (Nitroglycerin/D5w 100 Mcg/Ml) 250 mls @ 0 mls/hr IV .Q0M [facility]; Protocol Stop: 12/22/18 14:29 Last Titration: 11/22/18 16:55 Dose: 0 mcg/min, 0 mls/hr Methylprednisolone 60 mg/ (Syringe) 0.96 mls @ 1.5 mls/min IV Q8H [facility] Stop: 12/22/18 19:59 Last Admin: 11/23/18 03:37 Dose: 1.5 mls/min Dexmedetomidine HCl 200 mcg/ (Sodium Chloride) 50 mls @ 2.25 mls/hr IV .[id number] [facility]; Protocol Stop: 11/27/18 07:29 Lisinopril (Zestril) 5 mg PO DAILY [facility] Stop: 12/23/18 08:59 Lorazepam (Ativan) 0.5 mg PO Q6H PRN PRN Reason: Anxiety Stop: 12/22/18 17:48 Last Admin: 11/22/18 18:05 Dose: 0.5 mg Midazolam HCl (Versed) 4 mg IV ONE ONE Stop: 11/23/18 08:01 Miscellaneous (Icu Protocol For Hyperglycemia) 1 ea N/A PRN PRN; Protocol PRN Reason: Hyperglycemia Protocol Stop: 11/24/18 14:54 Pantoprazole Sodium (Protonix) 40 mg PO BID [facility] Stop: 12/22/18 20:59 Last Admin: 11/22/18 19:55 Dose: 40 mg Potassium Chloride (Klor-Con M20) 20 meq PO DAILY [facility] Stop: 12/23/18 08:59 Pramipexole Dihydrochloride (Mirapex) 0.25 mg PO PM [facility] Stop: 12/22/18 20:59 Last Admin: 11/22/18 19:54 Dose: 0.25 mg Sertraline HCl (Zoloft) 50 mg PO DAILY [facility] Stop: 12/23/18 08:59 Resident Activity Tracking Resident Involvement: Resident Care Provided Care Provided: [facility] Medicine _ (1) CHF (congestive heart failure) Heart failure chronicity: acute on chronic Heart failure type: unspecified Qualified Code(s): I50.9 - Heart failure, unspecified (2) Anemia Anemia type: unspecified type Bone marrow failure anemia type: Chronic kidney disease stage: Folate deficiency anemia type: Hemolytic anemia type: Iron deficiency anemia type: Other causes of anemia: Vitamin B12 deficiency anemia type: Qualified Code(s): D64.9 - Anemia, unspecified
[2018-11-23 04:42] LABS: Basophils # (auto) 0.01 K/uL (0-0.2); Basophils % (auto) 0.2 %; Hematocrit (blood only) 30.8 % (37-47); Hemoglobin 9.5 g/dL (12.0-16.0); Immature Granulocytes # (auto) 0.01 K/uL (0.00-0.02); Immature Granulocytes % (auto) 0.2 %; Lymphocytes # (auto) 0.82 K/uL (1.2-3.4); Lymphocytes % (auto) 12.4 %; Mean Corpuscular Hgb Conc 30.8 g/dL (32-36); Mean Corpuscular Volume 77.6 fL (80-100); Mean Platelet Volume 9.1 fL (7.4-10.4); Neutrophils # (auto) 5.56 K/uL (1.4-6.5); Neutrophils % (auto) 84.2 %; Platelet Count 227 K/uL (130-400); RDW Coefficient of Variation 23.2 % (11.5-14.5); RDW Standard Deviation 65.9 fL (36.4-46.3); Red Blood Count 3.97 M/uL (4.2-5.4)
[2018-11-23 05:07] LABS: Anisocytosis Present; Ovalocytes 1+; Toxic Vacuolation 1+
[2018-11-23 05:09] LABS: BUN Creatinine Ratio 25.8 (10-20); Calcium 8.5 mg/dl (8.5-10.1); Est GFR (African American) 65.1; Est GFR (Non-African American) 56.1; Magnesium 1.8 mg/dl (1.8-2.4); Potassium 3.3 mmol/L (3.5-5.1)
[2018-11-23 05:13] LABS: Phosphorus 4.8 mg/dl (2.5-4.9); Troponin I 0.067 ng/ml (0-0.045)
[2018-11-23] MEDS ORDERED: MAGNESIUM SULFATE / D5W 1 GM/100 ML BAG IV STA (05:35)
[2018-11-23] MEDS ORDERED: POTASSIUM CHLORIDE 20 MEQ TABCR PO STA (05:46)
[2018-11-23] MEDS ORDERED: LIDOCAINE 4% INH SOLN 4 ML BTL NEB ONE (07:20)
--- NOTE | 2018-11-23 07:23 | Pre Anesthesia Assessment ---
Date of Service November 23, 2018 Pre Sedation Assessment Vital Signs Temp Pulse Pulse Resp BP BP Pulse Ox 11/23/18 05:12 69 22 92 11/23/18 03:49 36.5 C 79 30 H 110/47 L 91 11/23/18 03:01 72 22 110/47 L 92 11/23/18 03:00 71 20 92 11/23/18 02:13 84 22 92 11/23/18 02:00 72 22 101/44 L 93 11/23/18 01:00 74 24 90/43 L 94 11/23/18 00:01 76 22 97/46 L 93 11/23/18 00:00 75 75 26 H 90/43 L 93 11/22/18 23:06 79 24 95 11/22/18 23:05 79 24 95 11/22/18 23:01 80 25 H 108/40 L 95 11/22/18 23:00 78 20 96 11/22/18 22:06 82 26 H 93 11/22/18 22:05 81 29 H 100/52 L 93 11/22/18 22:00 79 23 93 11/22/18 21:01 84 25 H 91/40 L 93 11/22/18 21:00 84 25 H 93 11/22/18 20:02 96 H 28 H 94 11/22/18 20:01 94 H 26 H 115/56 L 93 11/22/18 20:00 36.4 C L 89 94 H 24 115/56 L 92 11/22/18 19:01 90 30 H 113/49 L 97 11/22/18 19:00 90 26 H 97 11/22/18 18:55 94 H 28 H 94 11/22/18 18:54 94 H 28 H 94 11/22/18 18:00 95 H 20 97/63 L 94 11/22/18 17:00 97 H 20 102/48 L 90 11/22/18 16:03 24 94 11/22/18 16:00 98 H 20 107/55 L 93 11/22/18 15:48 101 H 28 H 95 11/22/18 14:52 97 H 30 H 96 11/22/18 14:45 36.7 C 97 H 22 103/59 L 94 11/22/18 14:44 101 H 31 H 110/70 89 L 11/22/18 14:00 99 H 29 H 109/61 88 L 11/22/18 13:17 100 H 30 H 114/56 L 89 L 11/22/18 12:43 106 H 34 H 91 11/22/18 12:30 98 H 30 H 116/46 L 91 11/22/18 12:17 106 H 30 H 107/52 L 92 11/22/18 11:54 95 11/22/18 11:49 133 H 35 H 98 11/22/18 11:40 36.7 C 126 H 34 H 153/82 H 98 Cardiovascular no regular rhythm + murmur + capillary refill normal; no edema Respiratory + respiratory effort normal, + tactile fremitus (Left lower lung base), + able to speak in complete sentences and + prolonged expiratory phase; no grunting, no tripod positioning, no stridor and no paradoxical chest wall movement + breath sounds absent (Left lower lung base) and + diminished lung sounds Pre-Sedation Airway Assessment Smoking Status: Current every day smoker Hx Sleep Apnea: No Hx Difficult Intubation: No Short, Thick Neck: No Thyromental Distance: > or= 3.5 Finger Breadths Oral Cavity: + WNL Mallampati Class: II Class IV NPO Status Date of Last Intake of Fluids: 11/22/18 Time of Last Intake of Fluids: 23:59 Date of Last Intake of Solid Food: 11/22/18 Time of Last Intake of Solid Foods: 20:17 Procedure Planning Contraindications for Sedation: none Current Medications Reviewed: Yes Notes The planned sedation has been discussed with the patient. Informed Consent was obtained. I have identified the patient, determined the appropriateness of sedation and have assessed the patient immediately prior to the procedure. All medicine(s) and interventions are by my order. Initially starting with Precedex, fentanyl and Versed at bedside to augment. Topical anesthesia also via nebulized lidocaine. Patient at higher level of monitoring as she is admitted in the ICU and will remain in the ICU post procedure. Consideration given to securing airway first however patient has severe COPD and patient prefers not to have secured airway accordingly I feel the patient could be at risk for prolonged mechanical ventilation and will attempt without secured airway first. She has been n.p.o. greater than 8 hours since last intake of fluids and greater than 12 hours from last intake of solids. I have advised the patient of risk of over and under sedation as well as needed for intubation mechanical ventilation to complete the procedure as well as if the patient became oversedated. She understands these risks and is willing to proceed.
[2018-11-23] MEDS: ALBUT/IPRATROP 3MG/0.5MG NEB 3 ML VIAL NEB SCH ×4 (07:26→18:49)
[2018-11-23] MEDS ORDERED: DEXMEDETOMIDINE HCL 200 MCG in SODIUM CHLORIDE 0.9% 48 ML IV SCH (07:30)
--- NOTE | 2018-11-23 07:34 | XRay Report ---
XR chest 1V portable CLINICAL HISTORY: LLL mucoid impaction, pulmonary edema COMPARISON STUDY: 11/22/2018 FINDINGS: There is a left subclavian pacer/defibrillator present. There is persistent left lung volum e loss. There is ill-definition left hemidiaphragm suggesting left lower lobe atelectasis/consolidati on. There is resolving right lung edema.[ There is a trace right pleural effusion IMPRESSION: 1. Resolving pulmonary edema 2. Persistent left lower lobe opacity with ill definition of the left hemidiaphragm. There is left he mithorax volume loss. The findings likely represent left lower lobe volume loss/consolidation Electronically signed by: Micky Cutler M.D. 11/23/2018 7:32 AM
[2018-11-23] MEDS ORDERED: fentaNYL citrate 100 MCG/2 ML VIAL IV SCH (08:00)
[2018-11-23] MEDS ORDERED: MIDAZOLAM HCL 1 MG/ML 2ML VIAL IV ONE (08:00)
--- NOTE | 2018-11-23 08:15 | Procedure Note ---
Procedure Note Date of Service November 23, 2018 Procedure date: Noted above Procedure: fiberoptic bronchoscopy Pre-procedure Diagnosis: Mucoid impaction of the left lower lobe Post-procedure Diagnosis: same as above, significant severe excessive dynamic airway collapse/tracheomalacia Prior to Procedure: Informed Consent: The risks, benefits, indications, potential complications, and alternatives were explained to the patient and informed consent obtained. Attending Staff: Vonda Nolan DO Resident/APC: Not applicable Skin Prep: Not applicable Anesthesia: Precedex infusion, total 50 mcg fentanyl given and 25 mcg aliquots, 0.5 mg Versed Indications: 73-year-old female with severe COPD who has significant mucoid impaction of the left lower lobe. The identity of the patient was confirmed and a bedside time out was performed. Description of Procedure: Fiberoptic bronchoscopy was performed via noninvasive CPAP mask. Bronchioalveolar lavage left lingula and left lower lobe was performed. Findings included: Significant mucoid impaction with white tenacious secretions required multiple aliquots of saline approximately 200 mL's was used in the left lung field. There was significant dynamic airway collapse greater than 75% of the lumen. Complications: mild oozing of the left lower lobe was noted this resolved with 2 aliquots of chilled saline Specimens: Bronchial washings sent for culture and Gram stain, cytology, fungal elements, and AFB stain and culture. Estimated blood loss: Trace
[2018-11-23] MEDS: guaiFENesin 600 MG TABCR PO SCH ×2 (09:53→19:50)
[2018-11-23] MEDS: PANTOprazole 40 MG TAB PO SCH ×2 (09:53→19:50)
[2018-11-23] MEDS: POTASSIUM CHLORIDE 20 MEQ TABCR PO SCH (09:58)
[2018-11-23] MEDS: CARVEDILOL 12.5 MG TAB PO SCH ×2 (09:59→19:49)
[2018-11-23] MEDS: CLOPIDOGREL BISULFATE 75 MG TAB PO SCH (09:59)
[2018-11-23] MEDS: LISINOPRIL 5 MG TAB PO SCH (09:59)
[2018-11-23] MEDS: ASPIRIN 81 MG ECTAB PO SCH (10:00)
[2018-11-23] MEDS: SERTRALINE HCL 50 MG TABLET PO SCH (10:00)
[2018-11-23] MEDS: HEPARIN SOD 5,000 UNIT/0.5 ML VIAL SQ SCH ×2 (10:00→19:49)
--- NOTE | 2018-11-23 10:39 | Hospitalist Progress Note ---
Date of Service November 23, 2018 Assessment & Plan (1) Respiratory distress: (2) CHF (congestive heart failure): (3) Pleural effusion: (4) PNA (pneumonia): (5) CAD (coronary artery disease): (6) Atrial fibrillation: (7) SAH (subarachnoid hemorrhage): (8) S/P implantation of automatic cardioverter/defibrillator (AICD): (9) GIB (gastrointestinal bleeding): (10) Dyslipidemia: (11) Hypertension: (12) Anxiety: (13) Anemia: (14) CAD (coronary artery disease): 73 y/o F Hx advanced COPD, systolic CHF 25%, pacer/AICD, CAD, AF, HTN, HLD admitted on November 22, 2018 because of acute respiratory distress secondary to pneumonia and left lower lung collapse Hx advanced COPD, systolic CHF 25%, pacer/AICD, CAD, AF, HTN, HLD , anxiety, dependent on 4-5L 02. Respiratory distress, likely multifactorial: COPD, possible PNM and LLL collapse , CHF exac S/P bronc, on CPAP machine, generally feeling better, advanced COPD with possible exacerbation LLL collapse - possible PNM, bronc was done Continue antibiotic, CPAP, oxygen support, neb Possible mild systolic CHF exac which is evident by shortness of breath, elevated BNP, minimal elevated troponin, and mild pulmonary edema and some pleural effusion, ICD, EF 25-30% with multiple WMA. CAD with minimal elevated troponin,, no current evidence of ACS cont Carvedilol, Lisinopril, IV Lasixcont ASA, B dane, Plavix, Statin AF - paced on arrival - Cont ASA, Carvedilol - not a candidate for anticoagulation b/c Hx SAH and GIB Indeterminate 9 mm nodular opacity within the right lower lobe, need to follow -up chest CT with pcp Full code DVT px: Heparin prophylaxis Subjective On CPAP machine, sleepy, awakable, conversational, smiling, deny pain Difficulty breathing getting better, occasional cough, no fever and chill Denies nausea vomiting abdominal pain diarrhea constipation, Denies dysuria urgency and frequency's, Denies facial droop or slurry speeches or local weakness, Denies chest pain palpitation or lower extremities warning, Physical Exam 2 Vital Signs (Past 24 Hours): Last Vital Signs Temp 36.5 C 11/23/18 03:49 Pulse 78 11/23/18 10:00 Resp 22 11/23/18 10:00 BP 127/54 L 11/23/18 10:00 Pulse Ox 94 11/23/18 10:00 Physical Exam: General Appearance: On CPAP machine, WD/WN, no apparent distress, Eyes: normal inspection, PERRL, EOMI, sclerae normal ENT: normal ENT inspection, hearing grossly normal, pharynx normal Neck: supple, no adenopathy, thyroid normal, no JVD, Respiratory/Chest: chest non-tender, decreased breath sounds, no respiratory distress, occasional wheezing, no accessory muscle use, Cardiovascular: regular rate, rhythm, no JVD, no murmur Abdomen: normal bowel sounds, non tender, soft, no organomegaly, Extremities: normal range of motion, non-tender, normal inspection, no pedal edema, joint has no limited range of motion, capillary refill is normal, no cyanosis clubbing 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, no motor/sensory deficits, alert, normal mood/affect, oriented x 3 Skin: normal color, warm/dry, no rash Lymphatic: no adenopathy Results & Data Laboratory Results Laboratory Results - last 24 hr 11/22/18 11/22/18 11/22/18 11:50 11:50 11:50 WBC 9.51 RBC 4.26 Hgb 10.1 L Hct 33.4 L MCV 78.4 L MCH 23.7 L MCHC 30.2 L RDW Std Deviation 67.4 H RDW Coeff of Kiana 23.6 H Plt Count 265 MPV 9.4 Immature Gran % (Auto) 0.2 Neut % (Auto) 76.0 Lymph % (Auto) 11.1 [place] % (Auto) 11.5 Eos % (Auto) 1.1 Baso % (Auto) 0.1 Immature Gran # (Auto) 0.02 Neut # (Auto) 7.23 H Lymph # (Auto) 1.06 L [place] # (Auto) 1.09 H Eos # (Auto) 0.10 Baso # (Auto) 0.01 Toxic Vacuolation Anisocytosis Present Tear Drop Cells 1+ Ovalocytes 1+ Schistocytes 1+ PT 10.7 INR 1.1 APTT 26.5 PTT Ratio 1.0 VBG pH VBG pCO2 VBG pO2 VBG HCO3 VBG O2 Saturation VBG Base Excess Barometric Pressure Sodium Potassium Chloride Carbon Dioxide Anion Gap BUN Creatinine Est Cr Clr Drug Dosing Est GFR ( Amer) Est GFR (Non-Af Amer) BUN/Creatinine Ratio Glucose POC Glucose Calcium Phosphorus Magnesium Cancelled Total Bilirubin AST ALT Alkaline Phosphatase Troponin I NT-Pro-B Natriuret Pep Cancelled Total Protein Albumin Globulin Albumin/Globulin Ratio Procalcitonin Specimen Hemolysis Nasal Screen MRSA (PCR) Influenza Type A (PCR) Influenza Type B (PCR) 11/22/18 11/22/18 11/22/18 11:50 11:50 12:01 WBC RBC Hgb Hct MCV MCH MCHC RDW Std Deviation RDW Coeff of Kiana Plt Count MPV Immature Gran % (Auto) Neut % (Auto) Lymph % (Auto) [place] % (Auto) Eos % (Auto) Baso % (Auto) Immature Gran # (Auto) Neut # (Auto) Lymph # (Auto) [place] # (Auto) Eos # (Auto) Baso # (Auto) Toxic Vacuolation Anisocytosis Tear Drop Cells Ovalocytes Schistocytes PT INR APTT PTT Ratio VBG pH 7.38 VBG pCO2 57 H VBG pO2 25 VBG HCO3 33 VBG O2 Saturation < 60.0 VBG Base Excess 6.3 Barometric Pressure 730.1 Sodium 134 L Potassium 4.7 Chloride 97 L Carbon Dioxide 31 Anion Gap 6.0 BUN 21 H Creatinine 1.02 Est Cr Clr Drug Dosing 34.4 Est GFR ( Amer) 62.8 Est GFR (Non-Af Amer) 54.1 BUN/Creatinine Ratio 20.5 H Glucose 135 H POC Glucose Calcium 8.8 Phosphorus Magnesium 1.8 Total Bilirubin 0.5 AST 35 ALT 53 Alkaline Phosphatase 83 Troponin I 0.056 H* NT-Pro-B Natriuret Pep 61482 H Total Protein 6.9 Albumin 2.9 L Globulin 4.0 Albumin/Globulin Ratio 0.7 L Procalcitonin < 0.05 Specimen Hemolysis Nasal Screen MRSA (PCR) Influenza Type A (PCR) Influenza Type B (PCR) 11/22/18 11/22/18 11/22/18 12:24 14:42 18:03 WBC RBC Hgb Hct MCV MCH MCHC RDW Std Deviation RDW Coeff of Kiana Plt Count MPV Immature Gran % (Auto) Neut % (Auto) Lymph % (Auto) [place] % (Auto) Eos % (Auto) Baso % (Auto) Immature Gran # (Auto) Neut # (Auto) Lymph # (Auto) [place] # (Auto) Eos # (Auto) Baso # (Auto) Toxic Vacuolation Anisocytosis Tear Drop Cells Ovalocytes Schistocytes PT INR APTT PTT Ratio VBG pH VBG pCO2 VBG pO2 VBG HCO3 VBG O2 Saturation VBG Base Excess Barometric Pressure Sodium Potassium Chloride Carbon Dioxide Anion Gap BUN Creatinine Est Cr Clr Drug Dosing Est GFR ( Amer) Est GFR (Non-Af Amer) BUN/Creatinine Ratio Glucose POC Glucose 135 H Calcium Phosphorus Magnesium Total Bilirubin AST ALT Alkaline Phosphatase Troponin I NT-Pro-B Natriuret Pep Total Protein Albumin Globulin Albumin/Globulin Ratio Procalcitonin Specimen Hemolysis Nasal Screen MRSA (PCR) Negative Influenza Type A (PCR) Neg for Influ A Influenza Type B (PCR) Neg for Influ B 11/22/18 11/22/18 11/23/18 20:13 23:25 04:08 WBC 6.60 RBC 3.97 L Hgb 9.5 L Hct 30.8 L MCV 77.6 L MCH 23.9 L MCHC 30.8 L RDW Std Deviation 65.9 H RDW Coeff of Kiana 23.2 H Plt Count 227 MPV 9.1 Immature Gran % (Auto) 0.2 Neut % (Auto) 84.2 Lymph % (Auto) 12.4 [place] % (Auto) 3.0 Eos % (Auto) 0.0 Baso % (Auto) 0.2 Immature Gran # (Auto) 0.01 Neut # (Auto) 5.56 Lymph # (Auto) 0.82 L [place] # (Auto) 0.20 Eos # (Auto) 0.00 Baso # (Auto) 0.01 Toxic Vacuolation 1+ Anisocytosis Present Tear Drop Cells Ovalocytes 1+ Schistocytes PT INR APTT PTT Ratio VBG pH VBG pCO2 VBG pO2 VBG HCO3 VBG O2 Saturation VBG Base Excess Barometric Pressure Sodium Potassium Chloride Carbon Dioxide Anion Gap BUN Creatinine Est Cr Clr Drug Dosing Est GFR ( Amer) Est GFR (Non-Af Amer) BUN/Creatinine Ratio Glucose POC Glucose 139 H Calcium Phosphorus Magnesium Total Bilirubin AST ALT Alkaline Phosphatase Troponin I 0.086 H* NT-Pro-B Natriuret Pep Total Protein Albumin Globulin Albumin/Globulin Ratio Procalcitonin Specimen Hemolysis Nasal Screen MRSA (PCR) Influenza Type A (PCR) Influenza Type B (PCR) 11/23/18 11/23/18 04:08 05:58 WBC RBC Hgb Hct MCV MCH MCHC RDW Std Deviation RDW Coeff of Kiana Plt Count MPV Immature Gran % (Auto) Neut % (Auto) Lymph % (Auto) [place] % (Auto) Eos % (Auto) Baso % (Auto) Immature Gran # (Auto) Neut # (Auto) Lymph # (Auto) [place] # (Auto) Eos # (Auto) Baso # (Auto) Toxic Vacuolation Anisocytosis Tear Drop Cells Ovalocytes Schistocytes PT INR APTT PTT Ratio VBG pH VBG pCO2 VBG pO2 VBG HCO3 VBG O2 Saturation VBG Base Excess Barometric Pressure Sodium 137 Potassium 3.3 L D Chloride 100 Carbon Dioxide 31 Anion Gap 6.0 BUN 25 H Creatinine 0.99 Est Cr Clr Drug Dosing 35.0 Est GFR ( Amer) 65.1 Est GFR (Non-Af Amer) 56.1 BUN/Creatinine Ratio 25.8 H Glucose 122 H POC Glucose 132 H Calcium 8.5 Phosphorus 4.8 Magnesium 1.8 Total Bilirubin AST ALT Alkaline Phosphatase Troponin I 0.067 H* NT-Pro-B Natriuret Pep Total Protein Albumin Globulin Albumin/Globulin Ratio Procalcitonin Specimen Hemolysis Nasal Screen MRSA (PCR) Influenza Type A (PCR) Influenza Type B (PCR) Diagnostic Findings Chest CT per report: 1. Left lower lobe collapse with secretions throughout the left lower lobe bronchi. No central obstructing mass identified however a follow-up CT in one month to ensure resolution is recommended. 2. Small left and trace right pleural effusions. 3. Moderate emphysema. Dilatation of the central pulmonary arteries indicative of pulmonary arterial hypertension. 4. Mild pulmonary edema. 5. Indeterminate 9 mm nodular opacity within the right lower lobe. This can be assessed on follow-up chest CT. _ (1) CHF (congestive heart failure) Heart failure chronicity: acute on chronic Heart failure type: unspecified Qualified Code(s): I50.9 - Heart failure, unspecified (2) PNA (pneumonia) Aspiration pneumonia type: Laterality: left Lung location: lower lobe of lung Pneumonia type: due to unspecified organism Qualified Code(s): J18.1 - Lobar pneumonia, unspecified organism (3) Anemia Anemia type: unspecified type Iron deficiency anemia type: Vitamin B12 deficiency anemia type: Folate deficiency anemia type: Bone marrow failure anemia type: Hemolytic anemia type: Other causes of anemia: Chronic kidney disease stage: Qualified Code(s): D64.9 - Anemia, unspecified (4) CAD (coronary artery disease) Coronary Disease-Associated Artery/Lesion type: [place] artery [place] vs. transplanted heart: [place] heart Associated angina: without angina Qualified Code(s): I25.10 - Atherosclerotic heart disease of [place] coronary artery without angina pectoris
--- NOTE | 2018-11-23 13:28 | XRay Report ---
XR chest 1V portable CLINICAL HISTORY: Mucoid impaction. X-ray following bronchoscopy. COMPARISON STUDY: 09/22/2019 FINDINGS: The heart remains enlarged. There is a left subclavian pacer/defibrillator present. There i s left-sided volume loss with left lower lobe atelectasis/consolidation. There is no focal pulmonary consolidation on the right. There is no pneumothorax status post bronchoscopy.[ IMPRESSION: No evidence of pneumothorax status post bronchoscopy. Electronically signed by: Micky Cutler M.D. 11/23/2018 1:27 PM
[2018-11-23] MEDS: ACETAMINOPHEN 325 MG TAB PO PRN (19:46)
[2018-11-23] MEDS: FEXOFENADINE 60 MG TAB PO SCH (19:47)
[2018-11-23] MEDS: PRAMIPEXOLE DIHYDROCHLO 0.25 MG TAB PO SCH (19:47)
[2018-11-23] MEDS: FLUTICASONE/SALMETEROL (ADVAIR) 500/50 INH 14 PUFF INH SCH (19:47)
[2018-11-23] MEDS: ATORVASTATIN 40 MG TAB PO SCH (19:49)
[2018-11-23] MEDS: EZETIMIBE 10 MG TABLET PO SCH (19:50)
[2018-11-23] MEDS: LORazepam 0.5 MG TAB PO PRN (20:42)
[2018-11-24] MEDS: methylPREDNISolone 60 MG in SYRINGE 0 ML IV SCH ×3 (04:02→19:56)
[2018-11-24] MEDS: ALBUT/IPRATROP 3MG/0.5MG NEB 3 ML VIAL NEB SCH ×4 (07:01→19:09)
[2018-11-24 07:15] LABS: Hematocrit (blood only) 28.7 % (37-47); Hemoglobin 8.7 g/dL (12.0-16.0); Immature Granulocytes # (auto) 0.02 K/uL (0.00-0.02); Immature Granulocytes % (auto) 0.2 %; Lymphocytes # (auto) 0.54 K/uL (1.2-3.4); Lymphocytes % (auto) 6.4 %; Mean Corpuscular Hgb Conc 30.3 g/dL (32-36); Mean Corpuscular Volume 77.6 fL (80-100); Mean Platelet Volume 9.6 fL (7.4-10.4); Monocytes # (auto) 0.41 K/uL (0.11-0.59); Monocytes % (auto) 4.9 %; Neutrophils # (auto) 7.46 K/uL (1.4-6.5); Neutrophils % (auto) 88.5 %; Platelet Count 275 K/uL (130-400); RDW Coefficient of Variation 23.4 % (11.5-14.5); RDW Standard Deviation 66.3 fL (36.4-46.3); White Blood Count 8.43 K/uL (4.8-10.8)
[2018-11-24] MEDS: guaiFENesin 600 MG TABCR PO SCH ×2 (07:48→19:58)
[2018-11-24] MEDS: CLOPIDOGREL BISULFATE 75 MG TAB PO SCH (07:48)
[2018-11-24] MEDS: CARVEDILOL 12.5 MG TAB PO SCH ×2 (07:48→19:58)
[2018-11-24] MEDS: FLUTICASONE/SALMETEROL (ADVAIR) 500/50 INH 14 PUFF INH SCH ×2 (07:48→19:56)
[2018-11-24] MEDS: PANTOprazole 40 MG TAB PO SCH ×2 (07:48→19:59)
[2018-11-24] MEDS: LISINOPRIL 5 MG TAB PO SCH (07:49)
[2018-11-24] MEDS: HEPARIN SOD 5,000 UNIT/0.5 ML VIAL SQ SCH ×2 (07:50→19:56)
[2018-11-24] MEDS: POTASSIUM CHLORIDE 20 MEQ TABCR PO SCH (07:50)
[2018-11-24] MEDS: FEXOFENADINE 60 MG TAB PO SCH ×2 (07:50→19:57)
[2018-11-24] MEDS: ASPIRIN 81 MG ECTAB PO SCH (07:50)
[2018-11-24] MEDS: SERTRALINE HCL 50 MG TABLET PO SCH (07:50)
[2018-11-24 07:53] LABS: Anisocytosis Present; Poikilocytosis Present
[2018-11-24 08:00] LABS: BUN Creatinine Ratio 51.1 (10-20); Calcium 8.5 mg/dl (8.5-10.1); Creatinine Clr Calc Pharmacy 34.5 ml/min; Est GFR (African American) 62.8; Est GFR (Non-African American) 54.1; Magnesium 2.2 mg/dl (1.8-2.4); Phosphorus 3.1 mg/dl (2.5-4.9); Potassium 5.1 mmol/L (3.5-5.1)
[2018-11-24] MEDS: LORazepam 0.5 MG TAB PO PRN ×2 (12:29→21:11)
[2018-11-24] MEDS ORDERED: PIPERACILL/TAZOBAC CONSULT ACTIVE PRN (13:34)
[2018-11-24] MEDS ORDERED: PIPERACILLIN/TAZOBACTAM 3.375 GM in DEXTROSE 5% 100 ML IV ONE (14:00)
[2018-11-24] MEDS: PIPERACILLIN/TAZOBACTAM 3.375 GM in DEXTROSE 5% 100 ML IV SCH (19:56)
[2018-11-24] MEDS: PRAMIPEXOLE DIHYDROCHLO 0.25 MG TAB PO SCH (19:57)
[2018-11-24] MEDS: EZETIMIBE 10 MG TABLET PO SCH (19:58)
[2018-11-24] MEDS: ATORVASTATIN 40 MG TAB PO SCH (19:58)
--- NOTE | 2018-11-24 20:28 | Hospitalist Progress Note ---
Date of Service November 24, 2018 Assessment & Plan (1) Acute and chronic respiratory failure: - Likely multifactorial between mild acute CHF exacerbation/pneumonia/ pleural effusion/COPD exacerbation - Reports she is normally on 3 L but has had to increase this recently and will monitor - She is S/P bronchoscopy on 11/23 with washings growing gram neg bacilli and will await culture -- Large mucous impaction with LLL collapse - Resumed Zosyn at this time and will adjust pending cx - maybe a component of aspiration and could consider GENERATION TECHNICIAN consult tomorrow vs she did have a recent hospitalization - will hold on MRSA coverage given cx Present on Admission?: Yes (2) CHF (congestive heart failure): - Systolic with H/O CAD and appears to have chronically elevated cardiac enzymes; reports chronic angina but also endorses a lot of anxiety as well and uses NTG when she gets anxious as this only seems to help per her report; H/O paroxysmal atrial fibrillation and is S/P pacer/AICD - Was treated with intermittent Lasix and will monitor at this time and possible add home Lasix tomorrow - currently at neg 600 mL - ASA 81 mg daily/Plavix 75 mg daily; Atorvastatin 80 mg daily; Carvedilol 18.75 mg BID; Lisinopril 5 mg daily - No anticoagulation due to H/O SAH and GIB Present on Admission?: Yes (3) PNA (pneumonia): - Growing gram neg bacilli on washings - add Zosyn therapy back on and await cultures - Possible component of aspiration? Consider GENERATION TECHNICIAN consult in AM Present on Admission?: Yes (4) COPD (chronic obstructive pulmonary disease): - With acute exacerbation - Duonebs QID; Advair BID; Mucinex BID - Methylprednisolone 60 mg IV Q8H Present on Admission?: Yes Subjective Bisi reports feeling better today but not back to her baseline breathing. She is very tight and wheezing on examination. Her bronch washings are growing gram neg bacilli and will resume Abx She states that she does occ. cough when drinking her boost but doesn't feel this is frequent. She reports that she is getting some anxiety and only NTG helps as she does report some chronic angina but states this triggers somewhat of a panic attack for her Constitutional: + fatigue and + weakness; no fever and no chills Ear, Nose, Mouth, Throat: no sore throat and no dysphagia Respiratory: + cough, + chest congestion, + dyspnea, + dyspnea on exertion and + wheezing; no sputum production Cardiovascular: no chest pain, no orthopnea, no palpitations, no edema and no calf pain Gastrointestinal: no abdominal pain, no nausea, no vomiting, no constipation and no diarrhea/loose stools Genitourinary (Female): no dysuria Integumentary: no rash Physical Exam 2 Vital Signs (Past 24 Hours): Last Vital Signs Temp 36.4 C L 11/24/18 19:53 Pulse 87 11/24/18 19:53 Resp 20 11/24/18 19:53 BP 135/56 L 11/24/18 19:53 Pulse Ox 92 11/24/18 19:53 Constitutional: well developed and well nourished; no acute distress and not ill appearing Eyes: + anicteric sclerae ENMT: Ears: no hearing impairment Neck: trachea midline Respiratory: Auscultation: + diminished lung sounds, + rhonchi and + wheezes Cardiovascular: Rate/Rhythm: regular rate and regular rhythm Gastrointestinal (Abdomen): Inspection/Auscultation: normal bowel sounds Percussion/Palpation: abdomen soft; abdomen nontender Musculoskeletal: Head/Neck/Chest: normocephalic, head atraumatic and neck supple Skin: no rashes, warm and dry Neurologic: moves all extremities Psychiatric: A+Ox3, euthymic affect _ (1) CHF (congestive heart failure) Heart failure chronicity: acute on chronic Heart failure type: unspecified Qualified Code(s): I50.9 - Heart failure, unspecified (2) PNA (pneumonia) Aspiration pneumonia type: Laterality: left Lung location: lower lobe of lung Pneumonia type: due to unspecified organism Qualified Code(s): J18.1 - Lobar pneumonia, unspecified organism
[2018-11-25] MEDS: ALBUT/IPRATROP 3MG/0.5MG NEB 3 ML VIAL NEB SCH ×5 (00:32→19:00)
[2018-11-25] MEDS: PIPERACILLIN/TAZOBACTAM 3.375 GM in DEXTROSE 5% 100 ML IV SCH (03:45)
[2018-11-25] MEDS: methylPREDNISolone 60 MG in SYRINGE 0 ML IV SCH ×3 (03:45→19:46)
[2018-11-25] MEDS: LORazepam 0.5 MG TAB PO PRN ×2 (03:47→23:09)
[2018-11-25 06:51] LABS: Hemoglobin 8.2 g/dL (12.0-16.0); Mean Corpuscular Hgb Conc 30.4 g/dL (32-36); Mean Corpuscular Volume 78.3 fL (80-100); Mean Platelet Volume 9.3 fL (7.4-10.4); Platelet Count 278 K/uL (130-400); RDW Coefficient of Variation 23.1 % (11.5-14.5); RDW Standard Deviation 66.1 fL (36.4-46.3); Red Blood Count 3.45 M/uL (4.2-5.4); White Blood Count 7.94 K/uL (4.8-10.8)
[2018-11-25 07:25] LABS: BUN Creatinine Ratio 50.6 (10-20); Calcium 8.1 mg/dl (8.5-10.1); Creatinine Clr Calc Pharmacy 35.7 ml/min; Est GFR (Non-African American) 53.5; Potassium 4.6 mmol/L (3.5-5.1)
[2018-11-25] MEDS: FLUTICASONE/SALMETEROL (ADVAIR) 500/50 INH 14 PUFF INH SCH ×2 (08:02→20:49)
[2018-11-25] MEDS: PANTOprazole 40 MG TAB PO SCH ×2 (08:03→20:53)
[2018-11-25] MEDS: CLOPIDOGREL BISULFATE 75 MG TAB PO SCH (08:03)
[2018-11-25] MEDS: CARVEDILOL 12.5 MG TAB PO SCH ×2 (08:03→20:50)
[2018-11-25] MEDS: guaiFENesin 600 MG TABCR PO SCH ×2 (08:03→20:52)
[2018-11-25] MEDS: FEXOFENADINE 60 MG TAB PO SCH ×2 (08:05→20:54)
[2018-11-25] MEDS: POTASSIUM CHLORIDE 20 MEQ TABCR PO SCH (08:05)
[2018-11-25] MEDS: SERTRALINE HCL 50 MG TABLET PO SCH (08:06)
[2018-11-25] MEDS: ASPIRIN 81 MG ECTAB PO SCH (08:06)
[2018-11-25] MEDS: LISINOPRIL 5 MG TAB PO SCH (08:06)
[2018-11-25] MEDS: HEPARIN SOD 5,000 UNIT/0.5 ML VIAL SQ SCH ×2 (08:07→21:00)
[2018-11-25] MEDS ORDERED: LEVOFLOXACIN CONSULT ACTIVE PRN (09:17)
[2018-11-25] MEDS ORDERED: FUROSEMIDE 40 MG TAB PO ONE (12:58)
[2018-11-25] MEDS: levoFLOXacin 750 MG TAB PO SCH (14:03)
[2018-11-25 14:49] LABS: Hematocrit (blood only) 28.1 % (37-47); Hemoglobin 8.5 g/dL (12.0-16.0)
--- NOTE | 2018-11-25 17:19 | Hospitalist Progress Note ---
Date of Service November 25, 2018 Assessment & Plan (1) Acute and chronic respiratory failure: - Likely multifactorial between acute CHF exacerbation/pneumonia/pleural effusion/COPD exacerbation - Reports she is normally on 3 L but has had to increase this recently and will monitor - currently on her baseline O2 with good saturations but lungs still with diminished sounds/wheeze/rhonchi and not moving a lot of secretions - She is S/P bronchoscopy on 11/23 with washings growing Klebsiella oxytoca which may be translocation from the mouth/aspiration? Will get LIABILITY ANALYST consult -- Large mucous impaction with LLL collapse - Convert to Levaquin for Klebsiella coverage - Consult pulmonology - seems to have continued tightness/wheeze with multiple steroids/antibiotics and will try to better maximize her; may be some CHF component at this time? Present on Admission?: Yes (2) CHF (congestive heart failure): - Systolic with H/O CAD and appears to have chronically elevated cardiac enzymes; reports chronic angina but also endorses a lot of anxiety as well and uses NTG when she gets anxious as this only seems to help per her report; H/O paroxysmal atrial fibrillation and is S/P pacer/AICD - Was treated with intermittent Lasix and given an addition Lasix 40 mg x 1 dose today and will reassess in AM and resume dosing pending evaluation - ASA 81 mg daily/Plavix 75 mg daily; Atorvastatin 80 mg daily; Carvedilol 18.75 mg BID; Lisinopril 5 mg daily - No anticoagulation due to H/O SAH and GIB Present on Admission?: Yes (3) PNA (pneumonia): - Growing Klebsiella oxytoca on bronch washings which could be translocation but will treat - is pansensitive - Levaquin 750 mg Q2D for renal dosing - Possible component of aspiration? Consult LIABILITY ANALYST Present on Admission?: Yes (4) COPD (chronic obstructive pulmonary disease): - With acute exacerbation - Duonebs QID; Advair BID; Mucinex BID - Methylprednisolone 60 mg IV Q8H and hopefully can taper down tomorrow Present on Admission?: Yes (5) DVT prophylaxis: - SCDs given H/O GI/SAH Disposition: Anticipate 3-4 days possible given her respiratory status as her lungs do not sound well even though on her baseline O2; PT/OT evaluations Subjective Reports she did not have a good night last night and is very tired. Feels that her breathing is about the same however has been weaned to her baseline O2 with good saturations However she still sounds rather tight, wheezy, and rhonchorus today as well Will try and diurese some but will monitor closely with dosing but maybe this is more the culprit. She is growing Klebsiella oxytoca on bronch cx Updated daughter over the phone this morning Constitutional: + fatigue and + weakness; no fever and no chills Ear, Nose, Mouth, Throat: no sore throat and no dysphagia Respiratory: + cough, + chest congestion, + dyspnea, + dyspnea on exertion and + wheezing; no sputum production Cardiovascular: no chest pain, no palpitations, no edema and no calf pain Gastrointestinal: no abdominal pain, no nausea, no vomiting, no constipation and no diarrhea/loose stools Genitourinary (Female): no dysuria Musculoskeletal: no body aches Integumentary: no rash Psychiatric: + anxiety Physical Exam 2 Vital Signs (Past 24 Hours): Last Vital Signs Temp 36.5 C 11/25/18 15:24 Pulse 89 11/25/18 15:24 Resp 20 11/25/18 15:24 BP 122/54 L 11/25/18 15:24 Pulse Ox 98 11/25/18 15:24 Constitutional: well developed and well nourished; no acute distress and not ill appearing Eyes: + anicteric sclerae ENMT: Ears: no hearing impairment Neck: trachea midline Respiratory: Auscultation: + diminished lung sounds, + rhonchi and + wheezes Cardiovascular: Rate/Rhythm: regular rate and regular rhythm Gastrointestinal (Abdomen): Inspection/Auscultation: normal bowel sounds Percussion/Palpation: abdomen soft; abdomen nontender Musculoskeletal: Head/Neck/Chest: normocephalic, head atraumatic and neck supple Skin: no rashes, warm and dry Neurologic: moves all extremities Psychiatric: A+Ox3, euthymic affect _ (1) CHF (congestive heart failure) Heart failure chronicity: acute on chronic Heart failure type: unspecified Qualified Code(s): I50.9 - Heart failure, unspecified (2) PNA (pneumonia) Aspiration pneumonia type: Laterality: left Lung location: lower lobe of lung Pneumonia type: due to unspecified organism Qualified Code(s): J18.1 - Lobar pneumonia, unspecified organism
--- NOTE | 2018-11-25 19:46 | Pulmonology Progress Note ---
Date of Service November 25, 2018 Assessment & Plan (1) Acute and chronic respiratory failure: Impression: 1. Left lower lobe pneumonia with Klebsiella oxytoca. Pansensitive, on Levaquin. 2. Atelectasis of the left lower lobe, with dynamic collapse of the airways noted on the bronchoscopy recently. 3. Tracheal bronchomalacia. 4. Small left-sided pleural effusion. Plan: 1. Continue with Levaquin for a total of 7 days. 2. Change steroids to Solu-Medrol 40 mg IV every 12 hours. 3. Continue bronchodilators. 4. Start the patient on hypertonic saline 4 times daily. 5. Vibrating vest, despite the presence of AICD. Thank you, will follow. Subjective The patient was admitted to the hospital with COPD exacerbation, has been treated in the ICU, treated also for right lower lobe pneumonia as well. The patient improved and was sent to the regular floor, we were asked to evaluate the patient due to persistent cough. The patient has been having a cough for the past several months. Recently she is unable to cough up her secretions. She denies any chest pain, no shortness of breath at rest, she has been ambulatory only with oxygen, she is non-smoker and quit 20 years ago, but she does have exposure to secondhand smoking via her 3 children who are active smokers. Denies any weight loss, no increased swelling in her lower extremity's , no constitutional symptoms, no URI or heartburn, no epigastric pain. The rest of her review of system otherwise was unremarkable. Physical Exam 2 Vital Signs (Past 24 Hours): Last Vital Signs Temp 36.5 C 11/25/18 15:24 Pulse 81 11/25/18 19:01 Resp 18 11/25/18 19:01 BP 122/54 L 11/25/18 15:24 Pulse Ox 98 11/25/18 19:01 Physical Exam: Elderly female, does not appear to be in any distress at the moment, S1-S2 regular rate and rhythm, distant breath sounds with crackles mainly at the bases, abdomen is benign, no edema, neurologically she is nonfocal. No skin rash, no oral thrush. Results & Data Laboratory Results Labs were consistent with stable CBC, and stable BMP. Slightly elevated BUN and creatinine. Results from recent bronchoscopy revealed Klebsiella oxytoca which appears to be pansensitive, fungal and mycobacterial are still pending. Diagnostic Findings Chest x-ray which I reviewed as well as a CAT scan which showed persistent left lower lobe atelectasis. Cardiomegaly noted as well as AICD in place.
[2018-11-25] MEDS: PRAMIPEXOLE DIHYDROCHLO 0.25 MG TAB PO SCH (20:49)
[2018-11-25] MEDS: ATORVASTATIN 40 MG TAB PO SCH (20:50)
[2018-11-25] MEDS: EZETIMIBE 10 MG TABLET PO SCH (20:52)
[2018-11-25] MEDS: SODIUM CHLOR 7% 4 ML NEB INH SCH (22:17)
[2018-11-26] MEDS: SODIUM CHLOR 7% 4 ML NEB INH SCH ×5 (07:08→18:41)
[2018-11-26] MEDS: ALBUT/IPRATROP 3MG/0.5MG NEB 3 ML VIAL NEB SCH ×5 (07:08→18:41)
[2018-11-26] MEDS: CARVEDILOL 12.5 MG TAB PO SCH ×2 (07:50→20:33)
[2018-11-26] MEDS: FLUTICASONE/SALMETEROL (ADVAIR) 500/50 INH 14 PUFF INH SCH ×2 (07:50→20:33)
[2018-11-26] MEDS: POTASSIUM CHLORIDE 20 MEQ TABCR PO SCH (07:51)
[2018-11-26] MEDS: guaiFENesin 600 MG TABCR PO SCH ×2 (07:51→20:32)
[2018-11-26] MEDS: CLOPIDOGREL BISULFATE 75 MG TAB PO SCH (07:51)
[2018-11-26] MEDS: SERTRALINE HCL 50 MG TABLET PO SCH (07:52)
[2018-11-26] MEDS: ASPIRIN 81 MG ECTAB PO SCH (07:52)
[2018-11-26] MEDS: PANTOprazole 40 MG TAB PO SCH ×2 (07:52→20:33)
[2018-11-26] MEDS: FEXOFENADINE 60 MG TAB PO SCH ×2 (07:52→20:32)
[2018-11-26] MEDS: LISINOPRIL 5 MG TAB PO SCH (07:52)
[2018-11-26] MEDS: HEPARIN SOD 5,000 UNIT/0.5 ML VIAL SQ SCH ×2 (07:53→20:33)
[2018-11-26] MEDS ORDERED: methylPREDNISolone 40 MG in SYRINGE 0 ML IV SCH (08:00)
[2018-11-26 09:32] LABS: Hematocrit (blood only) 30.8 % (37-47); Hemoglobin 9.5 g/dL (12.0-16.0); Mean Corpuscular Hgb Conc 30.8 g/dL (32-36); Mean Corpuscular Volume 78.8 fL (80-100); Mean Platelet Volume 8.8 fL (7.4-10.4); Platelet Count 303 K/uL (130-400); RDW Coefficient of Variation 22.7 % (11.5-14.5); RDW Standard Deviation 65.5 fL (36.4-46.3); Red Blood Count 3.91 M/uL (4.2-5.4); White Blood Count 6.96 K/uL (4.8-10.8)
[2018-11-26 10:06] LABS: BUN Creatinine Ratio 43.2 (10-20); Creatinine Clr Calc Pharmacy 30.2 ml/min; Potassium 4.1 mmol/L (3.5-5.1)
--- NOTE | 2018-11-26 13:38 | Fluoroscopy Report ---
FL video swallow CLINICAL HISTORY: 73 years-old Female presenting with r/o aspiration. TECHNIQUE: Video fluoroscopic evaluation of swallowing was performed in the AP and lateral projection s in conjunction with speech pathology. The patient was administered various textures, including nect ar-thick and thin liquid barium, a barium coated wafer, and barium pudding. COMPARISON: None. FINDINGS: Limited evaluation of the esophagus within normal limits. Partially visualized left subclavian implan ashish cardiac defibrillator with leads to the right atrium, coronary sinus, and right ventricular apex. Numerous surgical clips project over the upper neck. Normal oral transit, including normal tongue-soft palate seal. Normal soft palate-superior constricto r muscle seal without evidence of nasopharyngeal regurgitation. Intermittent early pooling of the gela d bolus within the valleculae. Normal hyoid elevation and epiglottic deflection. Mild residual in the piriform sinuses. Trace residual in the valleculae. None of the administered textures resulted in laryngeal penetration within the laryngeal vestibule. N one of the administered textures resulted in aspiration of barium contrast below the level of the paola e vocal folds. Fluoroscopy dosage (mGy): Not available. Fluoroscopy time: 1.6 minutes. Number or time of fluoroscopic spot images: 0. IMPRESSION: 1. No aspiration identified. 2. Please see the speech pathologist report for detailed findings and recommendations. Electronically signed by: Bob Calvert M.D. 11/26/2018 1:36 PM
--- NOTE | 2018-11-26 19:38 | Pulmonology Progress Note ---
Date of Service November 26, 2018 Assessment & Plan (1) Acute and chronic respiratory failure: Impression: 1. Left lower lobe pneumonia with Klebsiella oxytoca. Pansensitive, on Levaquin. 2. Atelectasis of the left lower lobe, with dynamic collapse of the airways noted on the bronchoscopy recently. 3. Tracheal bronchomalacia. 4. Small left-sided pleural effusion. Plan: 1. Continue with Levaquin for a total of 7 days. 2. Change systemic steroids to prednisone p.o. 3. Continue bronchodilators. 4. Please start the patient on hypertonic saline 4 times daily. 5. Please start vibrating vest, despite the presence of AICD. At least twice daily. 6. I have discussed #4 and #5 with the nursing staff, they will contact respiratory therapy providers in that regard. Thank you, will follow. Subjective Apparently the patient continued to have persistent cough with inability to raise her sputum, however he she has not tried the vibrating vest, though she has been on hypertonic saline neb. She has no events overnight, she slept through it, no cough at night. Physical Exam 2 Vital Signs (Past 24 Hours): Last Vital Signs Temp 36.7 C 11/26/18 19:23 Pulse 83 11/26/18 19:23 Resp 22 11/26/18 19:23 BP 145/61 H 11/26/18 19:23 Pulse Ox 92 11/26/18 19:23 Physical Exam: Her vital signs remained stable, O2 saturation 92% on 3-1/2 L. S1-S2, minimal crackles and wheezing at the left base, abdomen is benign, no edema. Neurologically she is intact. Results & Data Laboratory Results Labs were stable including CBC and BMP. Diagnostic Findings Modified barium swallow showed no evidence of aspiration.
--- NOTE | 2018-11-26 19:43 | Hospitalist Progress Note ---
Date of Service November 26, 2018 Assessment & Plan (1) Acute and chronic respiratory failure: - Likely multifactorial between acute CHF exacerbation/pneumonia/pleural effusion/COPD exacerbation - Reports she is normally on 3 L but has had to increase this recently and will monitor - currently on her baseline O2 with good saturations but lungs still with diminished sounds/wheeze/rhonchi and not moving a lot of secretions - She is S/P bronchoscopy on 11/23 with washings growing Klebsiella oxytoca which may be translocation from the mouth/aspiration? -- Large mucous impaction with LLL collapse - Convert to Levaquin for Klebsiella coverage - Consult pulmonology - appreciate input and recommendations - vibration vest/ hypertonic saline nebs/ (2) CHF (congestive heart failure): - Systolic with H/O CAD and appears to have chronically elevated cardiac enzymes; reports chronic angina but also endorses a lot of anxiety as well and uses NTG when she gets anxious as this only seems to help per her report; H/O paroxysmal atrial fibrillation and is S/P pacer/AICD - Was treated with intermittent Lasix and given an addition Lasix 40 mg x 1 dose yesterday but had a mild increase in Cr and will hold on further diuretics today - ASA 81 mg daily/Plavix 75 mg daily; Atorvastatin 80 mg daily; Carvedilol 18.75 mg BID; Lisinopril 5 mg daily - No anticoagulation due to H/O SAH and GIB (3) PNA (pneumonia): - Growing Klebsiella oxytoca on bronch washings which could be translocation but will treat - is pansensitive - Levaquin 750 mg Q2D for renal dosing for a 7 day treatment course - ACCOUNT DIRECTOR consulted - no aspiration and recommending dental soft diet (4) COPD (chronic obstructive pulmonary disease): - With acute exacerbation - Duonebs QID; Advair BID; Mucinex BID - Converted to Prednisone and will taper - Vibration vest/saline nebs (5) DVT prophylaxis: - SCDs given H/O GI/SAH Disposition: Anticipate 3-4 days possible given her respiratory status as her lungs do not sound well even though on her baseline O2; PT/OT evaluations Subjective Reports feeling a little better today. She had a better nights sleep which she thinks that helped It seems like her mucus is moving a little better today but still has a very weak cough. She is about to use the vibration vest during my visit. She underwent video swallow without aspiration noted. Constitutional: + fatigue and + weakness; no fever and no chills Respiratory: + cough, + chest congestion, + dyspnea, + dyspnea on exertion and + wheezing; no sputum production Cardiovascular: no chest pain Gastrointestinal: no abdominal pain, no nausea, no vomiting, no constipation and no diarrhea/loose stools Genitourinary (Female): no dysuria Psychiatric: + anxiety Physical Exam 2 Vital Signs (Past 24 Hours): Last Vital Signs Temp 36.7 C 11/26/18 19:23 Pulse 83 11/26/18 19:23 Resp 22 11/26/18 19:23 BP 145/61 H 11/26/18 19:23 Pulse Ox 92 11/26/18 19:23 Constitutional: well developed and well nourished; no acute distress and not ill appearing Eyes: + anicteric sclerae ENMT: Ears: no hearing impairment Neck: trachea midline Respiratory: Auscultation: + diminished lung sounds, + rhonchi and + wheezes Cardiovascular: Rate/Rhythm: regular rate and regular rhythm Gastrointestinal (Abdomen): Inspection/Auscultation: normal bowel sounds Percussion/Palpation: abdomen soft; abdomen nontender Musculoskeletal: Head/Neck/Chest: normocephalic, head atraumatic and neck supple Skin: no rashes, warm and dry Neurologic: moves all extremities Psychiatric: A+Ox3, euthymic affect _ (1) CHF (congestive heart failure) Heart failure chronicity: acute on chronic Heart failure type: unspecified Qualified Code(s): I50.9 - Heart failure, unspecified (2) PNA (pneumonia) Aspiration pneumonia type: Laterality: left Lung location: lower lobe of lung Pneumonia type: due to unspecified organism Qualified Code(s): J18.1 - Lobar pneumonia, unspecified organism
[2018-11-26] MEDS: PRAMIPEXOLE DIHYDROCHLO 0.25 MG TAB PO SCH (20:32)
[2018-11-26] MEDS: LORazepam 0.5 MG TAB PO PRN (20:32)
[2018-11-26] MEDS: EZETIMIBE 10 MG TABLET PO SCH (20:32)
[2018-11-26] MEDS: methylPREDNISolone 40 MG in SYRINGE 0 ML IV SCH (20:33)
[2018-11-26] MEDS: ATORVASTATIN 40 MG TAB PO SCH (20:33)
[2018-11-27] MEDS ORDERED: ALBUT/IPRATROP 3MG/0.5MG NEB 3 ML VIAL NEB PRN (01:37)
[2018-11-27] MEDS: ALBUT/IPRATROP 3MG/0.5MG NEB 3 ML VIAL NEB SCH ×4 (06:56→19:19)
[2018-11-27] MEDS: SODIUM CHLOR 7% 4 ML NEB INH SCH ×4 (06:56→19:19)
[2018-11-27] MEDS: FLUTICASONE/SALMETEROL (ADVAIR) 500/50 INH 14 PUFF INH SCH ×2 (07:22→20:59)
[2018-11-27] MEDS: CARVEDILOL 12.5 MG TAB PO SCH ×2 (07:22→21:01)
[2018-11-27] MEDS: methylPREDNISolone 40 MG in SYRINGE 0 ML IV SCH (07:22)
[2018-11-27] MEDS: POTASSIUM CHLORIDE 20 MEQ TABCR PO SCH (07:23)
[2018-11-27] MEDS: LISINOPRIL 5 MG TAB PO SCH (07:23)
[2018-11-27] MEDS: PANTOprazole 40 MG TAB PO SCH ×2 (07:23→20:59)
[2018-11-27] MEDS: CLOPIDOGREL BISULFATE 75 MG TAB PO SCH (07:23)
[2018-11-27] MEDS: guaiFENesin 600 MG TABCR PO SCH ×2 (07:23→21:02)
[2018-11-27] MEDS: SERTRALINE HCL 50 MG TABLET PO SCH (07:23)
[2018-11-27] MEDS: ASPIRIN 81 MG ECTAB PO SCH (07:24)
[2018-11-27] MEDS: FEXOFENADINE 60 MG TAB PO SCH ×2 (07:24→21:00)
[2018-11-27] MEDS: HEPARIN SOD 5,000 UNIT/0.5 ML VIAL SQ SCH ×2 (07:24→21:03)
[2018-11-27] MEDS: levoFLOXacin 750 MG TAB PO SCH (10:47)
[2018-11-27] MEDS: predniSONE 50 MG TAB PO SCH (12:51)
--- NOTE | 2018-11-27 14:34 | Hospitalist Progress Note ---
Date of Service November 27, 2018 Assessment & Plan (1) Acute and chronic respiratory failure: - Likely multifactorial between acute CHF exacerbation/pneumonia/pleural effusion/COPD exacerbation - Reports she is normally on 3 L but has had to increase this recently and will monitor - currently on her baseline O2 with good saturations but lungs still with diminished sounds/wheeze/rhonchi and not moving a lot of secretions - She is S/P bronchoscopy on 11/23 with washings growing Klebsiella oxytoca which may be translocation from the mouth/aspiration? -- Large mucous impaction with LLL collapse - Convert to Levaquin for Klebsiella coverage - Consult pulmonology - appreciate input and recommendations - vibration vest/ hypertonic saline nebs (2) CHF (congestive heart failure): - Systolic with H/O CAD and appears to have chronically elevated cardiac enzymes; reports chronic angina but also endorses a lot of anxiety as well and uses NTG when she gets anxious as this only seems to help per her report; H/O paroxysmal atrial fibrillation and is S/P pacer/AICD - Was treated with intermittent Lasix and given an addition Lasix 40 mg x 1 dose the other day. Assess labs in AM due to slight increase in Cr and likely resume diuretics tomorrow - ASA 81 mg daily/Plavix 75 mg daily; Atorvastatin 80 mg daily; Carvedilol 18.75 mg BID; Lisinopril 5 mg daily - No anticoagulation due to H/O SAH and GIB (3) PNA (pneumonia): - Growing Klebsiella oxytoca on bronch washings which could be translocation but will treat - is pansensitive - Levaquin 750 mg Q2D for renal dosing for a 7 day treatment course - BATTERY ASSEMBLER DRY CELL consulted - no aspiration and recommending dental soft diet (4) COPD (chronic obstructive pulmonary disease): - With acute exacerbation - Duonebs QID; Advair BID; Mucinex BID - Converted to Prednisone and will taper - Vibration vest/saline nebs (5) DVT prophylaxis: - SCDs given H/O GI/SAH Disposition: Anticipate 3-4 days possible given her respiratory status as her lungs do not sound well even though on her baseline O2; PT/OT evaluations Subjective Reports feeling slightly better but has not produced sputum. She states she is sleeping a bit better though but did need a PRN nebulizer She does sound like the mucus is higher in the chest and maybe is starting to make its way into the larger airways and she will be able to cough this out. However she has a very weak cough. She continues to really feel the SOB after ambulating. Only other complaint is of a dry nose Constitutional: + fatigue; no fever and no chills Ear, Nose, Mouth, Throat: no dry mouth, no sore throat and no dysphagia Dry nose Respiratory: + cough, + chest congestion, + dyspnea and + dyspnea on exertion; no sputum production and no wheezing Cardiovascular: no chest pain, no palpitations and no edema Gastrointestinal: no abdominal pain, no nausea, no vomiting, no constipation and no diarrhea/loose stools Genitourinary (Female): no dysuria Integumentary: no rash Physical Exam 2 Vital Signs (Past 24 Hours): Last Vital Signs Temp 36.8 C 11/27/18 11:37 Pulse 79 11/27/18 11:37 Resp 20 11/27/18 11:37 BP 116/62 11/27/18 11:37 Pulse Ox 94 11/27/18 11:37 Constitutional: well developed and well nourished; no acute distress and not ill appearing Eyes: + anicteric sclerae ENMT: Ears: no hearing impairment Neck: trachea midline Respiratory: Auscultation: + diminished lung sounds, + rhonchi and + wheezes Cardiovascular: Rate/Rhythm: regular rate and regular rhythm Gastrointestinal (Abdomen): Inspection/Auscultation: normal bowel sounds Percussion/Palpation: abdomen soft; abdomen nontender Musculoskeletal: Head/Neck/Chest: normocephalic, head atraumatic and neck supple Skin: no rashes, warm and dry Neurologic: moves all extremities Psychiatric: A+Ox3, euthymic affect _ (1) CHF (congestive heart failure) Heart failure chronicity: acute on chronic Heart failure type: unspecified Qualified Code(s): I50.9 - Heart failure, unspecified (2) PNA (pneumonia) Aspiration pneumonia type: Laterality: left Lung location: lower lobe of lung Pneumonia type: due to unspecified organism Qualified Code(s): J18.1 - Lobar pneumonia, unspecified organism
[2018-11-27] MEDS: LORazepam 0.5 MG TAB PO PRN ×2 (15:55→22:14)
[2018-11-27] MEDS: PRAMIPEXOLE DIHYDROCHLO 0.25 MG TAB PO SCH (21:00)
[2018-11-27] MEDS: ATORVASTATIN 40 MG TAB PO SCH (21:01)
[2018-11-27] MEDS: EZETIMIBE 10 MG TABLET PO SCH (21:02)
--- NOTE | 2018-11-27 21:09 | Pulmonology Progress Note ---
Date of Service November 27, 2018 Assessment & Plan (1) Acute and chronic respiratory failure: Impression: 1. Left lower lobe pneumonia with Klebsiella oxytoca. Pansensitive, on Levaquin. 2. Atelectasis of the left lower lobe, with dynamic collapse of the airways noted on the bronchoscopy recently. 3. Tracheal bronchomalacia. 4. Small left-sided pleural effusion. Plan: 1. Continue with Levaquin for a total of 7 days. 2. Change systemic steroids to prednisone p.o. 3. Continue bronchodilators. 4. Continue hypertonic saline nebulized. 5. Vibrating vest twice daily. 6. She would need pulmonary rehab placement. 7. No further recommendation from pulmonary standpoint. Thank you, will follow as needed. Subjective She feels better, cough is less, did not cough overnight, she does not feel that she is bringing up the secretions according to her. Physical Exam 2 Vital Signs (Past 24 Hours): Last Vital Signs Temp 36.3 C L 11/27/18 19:01 Pulse 80 11/27/18 19:19 Resp 20 11/27/18 19:19 BP 106/65 11/27/18 19:01 Pulse Ox 98 11/27/18 19:19 Physical Exam: Vital signs are stable, O2 saturation 98% on 4 L, S1-S2 regular rate and rhythm, audible breath sounds bilaterally. Abdomen is benign. No edema. Results & Data Laboratory Results Labs were reviewed glucose remains elevated. Diagnostic Findings No new imaging.
[2018-11-28] MEDS: LORazepam 0.5 MG TAB PO PRN ×2 (05:42→20:39)
[2018-11-28] MEDS: ALBUT/IPRATROP 3MG/0.5MG NEB 3 ML VIAL NEB SCH ×4 (07:08→19:24)
[2018-11-28] MEDS: SODIUM CHLOR 7% 4 ML NEB INH SCH ×3 (07:10→15:41)
[2018-11-28] MEDS: PANTOprazole 40 MG TAB PO SCH ×2 (07:54→20:23)
[2018-11-28] MEDS: LISINOPRIL 5 MG TAB PO SCH (07:54)
[2018-11-28] MEDS: FLUTICASONE/SALMETEROL (ADVAIR) 500/50 INH 14 PUFF INH SCH ×2 (07:54→20:20)
[2018-11-28] MEDS: HEPARIN SOD 5,000 UNIT/0.5 ML VIAL SQ SCH ×2 (07:55→20:22)
[2018-11-28] MEDS: CARVEDILOL 12.5 MG TAB PO SCH ×2 (07:55→20:20)
[2018-11-28] MEDS: CLOPIDOGREL BISULFATE 75 MG TAB PO SCH (07:56)
[2018-11-28] MEDS: FEXOFENADINE 60 MG TAB PO SCH ×2 (07:56→20:20)
[2018-11-28] MEDS: POTASSIUM CHLORIDE 20 MEQ TABCR PO SCH (07:56)
[2018-11-28] MEDS: predniSONE 50 MG TAB PO SCH (07:56)
[2018-11-28] MEDS: SERTRALINE HCL 50 MG TABLET PO SCH (07:57)
[2018-11-28] MEDS: ASPIRIN 81 MG ECTAB PO SCH (07:57)
[2018-11-28] MEDS: guaiFENesin 600 MG TABCR PO SCH ×2 (07:57→20:24)
[2018-11-28 08:19] LABS: Hematocrit (blood only) 31.8 % (37-47); Hemoglobin 9.8 g/dL (12.0-16.0); Mean Corpuscular Hgb Conc 30.8 g/dL (32-36); Mean Corpuscular Volume 77.2 fL (80-100); Mean Platelet Volume 8.9 fL (7.4-10.4); Platelet Count 320 K/uL (130-400); RDW Coefficient of Variation 22.8 % (11.5-14.5); RDW Standard Deviation 64.4 fL (36.4-46.3); Red Blood Count 4.12 M/uL (4.2-5.4)
[2018-11-28 08:53] LABS: BUN Creatinine Ratio 40.9 (10-20); Calcium 8.6 mg/dl (8.5-10.1); Creatinine Clr Calc Pharmacy 31.8 ml/min; Est GFR (African American) 53.2; Est GFR (Non-African American) 45.9; Potassium 4.7 mmol/L (3.5-5.1)
[2018-11-28] MEDS ORDERED: ERGOCALCIFEROL 50,000 UNITS CAP PO SCH (09:00)
--- NOTE | 2018-11-28 12:29 | Hospitalist Progress Note ---
Date of Service November 28, 2018 Assessment & Plan (1) Acute and chronic respiratory failure: - Likely multifactorial between acute CHF exacerbation/pneumonia/pleural effusion/COPD exacerbation/pulmonary HTN - Echo (February 2017) - R ventricular systolic pressures 30-40 mmHg which may be more progressed at this time? - Reports she is normally on 3 L but has had to increase this recently and will monitor - currently on her baseline O2 with good saturations and beginning to move better air but still with rhonchi and exp. wheeze but slowly improving - She is S/P bronchoscopy on 11/23 with washings growing Klebsiella oxytoca which may be translocation from the mouth/aspiration? -- Large mucous impaction with LLL collapse - Convert to Levaquin for Klebsiella coverage - tx end is 12/01 and currently renally dosed - Consulted pulmonology - vibration vest/hypertonic saline nebs - no further pulmonary needs (2) CHF (congestive heart failure): - Systolic with H/O CAD and appears to have chronically elevated cardiac enzymes; reports chronic angina but also endorses a lot of anxiety as well and uses NTG when she gets anxious sometimes; H/O paroxysmal atrial fibrillation and is S/P pacer/AICD - Will resume Lasix 40 mg daily (normally is on 40 mg BID) will monitor I&Os and renal function - ASA 81 mg daily/Plavix 75 mg daily; Atorvastatin 80 mg daily; Carvedilol 18.75 mg BID; Lisinopril 5 mg daily - No anticoagulation due to H/O SAH and GIB (3) PNA (pneumonia): - Growing Klebsiella oxytoca on bronch washings which could be translocation but will treat - is pansensitive - Levaquin 750 mg Q2D for renal dosing for a 7 day treatment course (ends 12/01) - TIMBER FALLER consulted - no aspiration and recommending dental soft diet (4) COPD (chronic obstructive pulmonary disease): - With acute exacerbation and slowly improving - Duonebs QID; Advair BID; Mucinex BID - Reduce to Prednisone 40 mg daily - likely can taper by 10 mg every other day but can adjust per assessment - Vibration vest/saline nebs (5) DVT prophylaxis: - SCDs given H/O GI/SAH Disposition: Anticipate likely stay into/through weekend as today is first day lungs are getting better aeration, she has chronic CHOWDHURY she reports is about baseline; PT/OT which PT shows improvement and recommendatiosn for home which she is ultimately planning on Subjective Reports feeling slightly better today but still some dyspnea at rest. Starting to cough up small amounts of sputum. Moving slightly better air but still rhonchorous and wheezing mostly expiratory. She is states she wakes up in the middle of sleep due to needing a breathing treatment She complains of CHOWDHURY but states this is pretty much her baseline. She does have elevated R ventricular pressures on echo from 2017 which could be more severe now? She also endorses some anxiety that she knows triggers her breathing. She states she uses Lorazepam PRN and it helps calm her breathing. She would be a candidate for a more palliative approach for her breathing. She verbalizes no other complaints at this time Constitutional: + fatigue; no fever and no chills Respiratory: + cough, + chest congestion, + dyspnea (improving), + dyspnea on exertion and + sputum production (very minimum); no wheezing Cardiovascular: + paroxysmal nocturnal dyspnea; no chest pain and no palpitations Gastrointestinal: no abdominal pain, no nausea, no vomiting, no constipation and no diarrhea/loose stools Genitourinary (Female): no dysuria Integumentary: no rash Psychiatric: + anxiety Physical Exam 2 Vital Signs (Past 24 Hours): Last Vital Signs Temp 36.6 C 11/28/18 12:14 Pulse 81 11/28/18 12:14 Resp 18 11/28/18 12:14 BP 107/57 L 11/28/18 12:14 Pulse Ox 96 11/28/18 12:14 Constitutional: well developed and well nourished; no acute distress and not ill appearing Eyes: + anicteric sclerae ENMT: Ears: no hearing impairment Neck: trachea midline Respiratory: Auscultation: + diminished lung sounds (but slowly improving aeration), + rhonchi (scattered but better aeration) and + wheezes (only expiratory on today's exam) Cardiovascular: Rate/Rhythm: regular rate and regular rhythm Gastrointestinal (Abdomen): Inspection/Auscultation: normal bowel sounds Percussion/Palpation: abdomen soft; abdomen nontender Musculoskeletal: Head/Neck/Chest: normocephalic, head atraumatic and neck supple Skin: no rashes, warm and dry Neurologic: moves all extremities Psychiatric: A+Ox3, euthymic affect _ (1) CHF (congestive heart failure) Heart failure chronicity: acute on chronic Heart failure type: unspecified Qualified Code(s): I50.9 - Heart failure, unspecified (2) PNA (pneumonia) Aspiration pneumonia type: Laterality: left Lung location: lower lobe of lung Pneumonia type: due to unspecified organism Qualified Code(s): J18.1 - Lobar pneumonia, unspecified organism
[2018-11-28] MEDS: PRAMIPEXOLE DIHYDROCHLO 0.25 MG TAB PO SCH (20:23)
[2018-11-28] MEDS: ATORVASTATIN 40 MG TAB PO SCH (20:23)
[2018-11-28] MEDS: EZETIMIBE 10 MG TABLET PO SCH (20:24)
[2018-11-29] MEDS: LORazepam 0.5 MG TAB PO PRN ×2 (06:32→20:42)
[2018-11-29] MEDS: ALBUT/IPRATROP 3MG/0.5MG NEB 3 ML VIAL NEB SCH ×4 (07:16→18:45)
[2018-11-29 08:23] LABS: Hematocrit (blood only) 30.6 % (37-47); Hemoglobin 9.3 g/dL (12.0-16.0); Mean Corpuscular Hgb Conc 30.4 g/dL (32-36); Mean Corpuscular Volume 77.3 fL (80-100); Mean Platelet Volume 8.7 fL (7.4-10.4); Platelet Count 317 K/uL (130-400); RDW Coefficient of Variation 22.6 % (11.5-14.5); RDW Standard Deviation 64.6 fL (36.4-46.3); Red Blood Count 3.96 M/uL (4.2-5.4); White Blood Count 10.86 K/uL (4.8-10.8)
[2018-11-29] MEDS: FLUTICASONE/SALMETEROL (ADVAIR) 500/50 INH 14 PUFF INH SCH ×2 (08:42→20:34)
[2018-11-29] MEDS: CARVEDILOL 12.5 MG TAB PO SCH ×2 (08:42→20:35)
[2018-11-29] MEDS: CLOPIDOGREL BISULFATE 75 MG TAB PO SCH (08:43)
[2018-11-29] MEDS: predniSONE 20 MG TAB PO SCH (08:43)
[2018-11-29] MEDS: POTASSIUM CHLORIDE 20 MEQ TABCR PO SCH (08:44)
[2018-11-29] MEDS: PANTOprazole 40 MG TAB PO SCH ×2 (08:44→20:37)
[2018-11-29] MEDS: LISINOPRIL 5 MG TAB PO SCH (08:44)
[2018-11-29] MEDS: ASPIRIN 81 MG ECTAB PO SCH (08:44)
[2018-11-29] MEDS: guaiFENesin 600 MG TABCR PO SCH ×2 (08:45→20:37)
[2018-11-29] MEDS: FUROSEMIDE 40 MG TAB PO SCH (08:45)
[2018-11-29] MEDS: SERTRALINE HCL 50 MG TABLET PO SCH (08:45)
[2018-11-29] MEDS: FEXOFENADINE 60 MG TAB PO SCH ×2 (08:46→20:35)
[2018-11-29] MEDS: HEPARIN SOD 5,000 UNIT/0.5 ML VIAL SQ SCH ×2 (08:46→20:36)
[2018-11-29 08:59] LABS: BUN Creatinine Ratio 48.7 (10-20); Calcium 8.4 mg/dl (8.5-10.1); Creatinine Clr Calc Pharmacy 37.6 ml/min; Est GFR (African American) 63.5; Est GFR (Non-African American) 54.8
[2018-11-29] MEDS: levoFLOXacin 750 MG TAB PO SCH (12:47)
--- NOTE | 2018-11-29 17:29 | Hospitalist Progress Note ---
Date of Service November 29, 2018 Assessment & Plan (1) Acute and chronic respiratory failure: - Likely multifactorial between acute CHF exacerbation/pneumonia/pleural effusion/COPD exacerbation/pulmonary HTN - Echo (February 2017) - R ventricular systolic pressures 30-40 mmHg -Currently on her baseline O2 with good saturations - She is S/P bronchoscopy on 11/23 with washings growing Klebsiella oxytoca -- Large mucous impaction with LLL collapse - Converted to Levaquin for Klebsiella coverage - tx end is 12/01 and currently renally dosed - Consulted pulmonology - vibration vest/hypertonic saline nebs - no further pulmonary needs (2) CHF (congestive heart failure): - Systolic with H/O CAD and appears to have chronically elevated cardiac enzymes; reports chronic angina but also endorses a lot of anxiety as well and uses NTG when she gets anxious sometimes; H/O paroxysmal atrial fibrillation and is S/P pacer/AICD - Continue Lasix 40 mg daily (normally is on 40 mg BID) will monitor I&Os and renal function - ASA 81 mg daily/Plavix 75 mg daily; Atorvastatin 80 mg daily; Carvedilol 18.75 mg BID; Lisinopril 5 mg daily - No anticoagulation due to H/O SAH and GIB (3) PNA (pneumonia): - Growing Klebsiella oxytoca on bronch washings which could be translocation but will treat - is pansensitive - Levaquin 750 mg Q2D for renal dosing for a 7 day treatment course (ends 12/01) - LUBRICATION TECHNICIAN consulted - no aspiration and recommending dental soft diet (4) COPD (chronic obstructive pulmonary disease): - With acute exacerbation and slowly improving - Duonebs QID; Advair BID; Mucinex BID - Reduce to Prednisone 40 mg daily and continue to taper - Vibration vest/saline nebs (5) DVT prophylaxis: - SCDs given H/O GI/SAH Disposition: PT/OT which PT shows improvement and recommendation for home when stable Subjective Ms. Jameson is feeling better. Her oxygen requirement is now at baseline Review of Systems All systems reviewed & are unremarkable except as noted in HPI & below Physical Exam 2 Vital Signs (Past 24 Hours): Last Vital Signs Temp 36.4 C L 11/29/18 16:08 Pulse 74 11/29/18 16:08 Resp 18 11/29/18 16:08 BP 126/55 L 11/29/18 16:08 Pulse Ox 97 11/29/18 16:08 Physical Exam: General: no distress Eyes: normal inspection, PERLL Respiratory: chest non tender, clear to auscultation, normal breath sounds, no respiratory distress, no accessory muscle use Cardiac: regular rate and rhythm, no rub or gallop, no murmur, no edema, no jvd GI/: active bowel sounds, no abd pain or tenderness, soft, non distended Extremities: normal range of motion, normal strength, non tender Neuro/Psych: alert and oriented x 3, normal mood and affect Skin: normal color, dry _ (1) CHF (congestive heart failure) Heart failure chronicity: acute on chronic Heart failure type: unspecified Qualified Code(s): I50.9 - Heart failure, unspecified (2) PNA (pneumonia) Aspiration pneumonia type: Laterality: left Lung location: lower lobe of lung Pneumonia type: due to unspecified organism Qualified Code(s): J18.1 - Lobar pneumonia, unspecified organism
[2018-11-29] MEDS: ATORVASTATIN 40 MG TAB PO SCH (20:36)
[2018-11-29] MEDS: PRAMIPEXOLE DIHYDROCHLO 0.25 MG TAB PO SCH (20:37)
[2018-11-29] MEDS: EZETIMIBE 10 MG TABLET PO SCH (20:38)
[2018-11-30 06:47] LABS: Est GFR (African American) 54.3; Est GFR (Non-African American) 46.8
[2018-11-30] MEDS: ALBUT/IPRATROP 3MG/0.5MG NEB 3 ML VIAL NEB SCH ×4 (07:21→19:07)
[2018-11-30] MEDS: FLUTICASONE/SALMETEROL (ADVAIR) 500/50 INH 14 PUFF INH SCH ×2 (08:43→19:57)
[2018-11-30] MEDS: predniSONE 20 MG TAB PO SCH (08:43)
[2018-11-30] MEDS: SERTRALINE HCL 50 MG TABLET PO SCH (08:44)
[2018-11-30] MEDS: CLOPIDOGREL BISULFATE 75 MG TAB PO SCH (08:44)
[2018-11-30] MEDS: LISINOPRIL 5 MG TAB PO SCH (08:44)
[2018-11-30] MEDS: ASPIRIN 81 MG ECTAB PO SCH (08:44)
[2018-11-30] MEDS: POTASSIUM CHLORIDE 20 MEQ TABCR PO SCH (08:44)
[2018-11-30] MEDS: guaiFENesin 600 MG TABCR PO SCH ×2 (08:45→19:59)
[2018-11-30] MEDS: CARVEDILOL 12.5 MG TAB PO SCH ×2 (08:45→20:00)
[2018-11-30] MEDS: FUROSEMIDE 40 MG TAB PO SCH (08:45)
[2018-11-30] MEDS: FEXOFENADINE 60 MG TAB PO SCH ×2 (08:45→20:00)
[2018-11-30] MEDS: PANTOprazole 40 MG TAB PO SCH ×2 (08:45→19:58)
[2018-11-30] MEDS: HEPARIN SOD 5,000 UNIT/0.5 ML VIAL SQ SCH ×2 (08:46→20:00)
--- NOTE | 2018-11-30 13:28 | Hospitalist Progress Note ---
Date of Service November 30, 2018 Assessment & Plan (1) Acute and chronic respiratory failure: - Likely multifactorial between acute CHF exacerbation/pneumonia/pleural effusion/COPD exacerbation/pulmonary HTN - Echo (February 2017) - R ventricular systolic pressures 30-40 mmHg -Currently on her baseline O2 with good saturations - She is S/P bronchoscopy on 11/23 with washings growing Klebsiella oxytoca -- Large mucous impaction with LLL collapse - Converted to Levaquin for Klebsiella coverage - tx end is 12/01 and currently renally dosed - Consulted pulmonology - vibration vest/hypertonic saline nebs - no further pulmonary needs (2) COPD (chronic obstructive pulmonary disease): - With acute exacerbation and slowly improving - Duonebs QID; Advair BID; Mucinex BID - Reduce to Prednisone 40 mg daily and continue to taper - Vibration vest/saline nebs (3) CHF (congestive heart failure): - Systolic with H/O CAD and appears to have chronically elevated cardiac enzymes; reports chronic angina but also endorses a lot of anxiety as well and uses NTG when she gets anxious sometimes; H/O paroxysmal atrial fibrillation and is S/P pacer/AICD - Continue Lasix 40 mg daily (normally is on 40 mg BID) will monitor I&Os and renal function - ASA 81 mg daily/Plavix 75 mg daily; Atorvastatin 80 mg daily; Carvedilol 18.75 mg BID; Lisinopril 5 mg daily - No anticoagulation due to H/O SAH and GIB (4) PNA (pneumonia): - Growing Klebsiella oxytoca on bronch washings which could be translocation but will treat - is pansensitive - Levaquin 750 mg Q2D for renal dosing for a 7 day treatment course (ends 12/01) - HEALTH SERVICES DIRECTOR consulted - no aspiration and recommending dental soft diet (5) DVT prophylaxis: - SCDs given H/O GI/SAH Disposition: PT/OT which PT shows improvement and recommendation for home when stable. Hopefully patient will be able to go in the next day or two as she continues to improve. Subjective Ms. Jameson continues to feel very fatigued. She does feel her breathing is improving. Review of Systems All systems reviewed & are unremarkable except as noted in HPI & below Physical Exam 2 Vital Signs (Past 24 Hours): Last Vital Signs Temp 36.7 C 11/30/18 08:00 Pulse 86 11/30/18 11:51 Resp 18 11/30/18 11:51 BP 105/54 L 11/30/18 08:00 Pulse Ox 95 11/30/18 11:51 Physical Exam: General: no distress Eyes: normal inspection, PERLL Respiratory: chest non tender, clear to auscultation, normal breath sounds, no respiratory distress, no accessory muscle use Cardiac: regular rate and rhythm, no rub or gallop, no murmur, no edema, no jvd GI/: active bowel sounds, no abd pain or tenderness, soft, non distended Extremities: normal range of motion, normal strength, non tender Neuro/Psych: alert and oriented x 3, normal mood and affect Skin: normal color, dry _ (1) CHF (congestive heart failure) Heart failure chronicity: acute on chronic Heart failure type: unspecified Qualified Code(s): I50.9 - Heart failure, unspecified (2) PNA (pneumonia) Aspiration pneumonia type: Laterality: left Lung location: lower lobe of lung Pneumonia type: due to unspecified organism Qualified Code(s): J18.1 - Lobar pneumonia, unspecified organism
[2018-11-30] MEDS: LORazepam 0.5 MG TAB PO PRN (14:44)
[2018-11-30] MEDS: ATORVASTATIN 40 MG TAB PO SCH (19:58)
[2018-11-30] MEDS: EZETIMIBE 10 MG TABLET PO SCH (19:58)
[2018-11-30] MEDS: PRAMIPEXOLE DIHYDROCHLO 0.25 MG TAB PO SCH (20:00)
[2018-12-01] MEDS: LORazepam 0.5 MG TAB PO PRN ×2 (01:56→14:29)
[2018-12-01 06:00] LABS: Basophils # (auto) 0.01 K/uL (0-0.2); Basophils % (auto) 0.1 %; Hematocrit (blood only) 30.6 % (37-47); Hemoglobin 9.4 g/dL (12.0-16.0); Immature Granulocytes # (auto) 0.26 K/uL (0.00-0.02); Immature Granulocytes % (auto) 1.9 %; Lymphocytes # (auto) 1.17 K/uL (1.2-3.4); Lymphocytes % (auto) 8.6 %; Mean Corpuscular Hgb Conc 30.7 g/dL (32-36); Mean Corpuscular Volume 75.6 fL (80-100); Mean Platelet Volume 9.1 fL (7.4-10.4); Monocytes # (auto) 1.96 K/uL (0.11-0.59); Monocytes % (auto) 14.5 %; Neutrophils # (auto) 10.13 K/uL (1.4-6.5); Neutrophils % (auto) 74.9 %; Platelet Count 353 K/uL (130-400); Red Blood Count 4.05 M/uL (4.2-5.4); White Blood Count 13.53 K/uL (4.8-10.8)
[2018-12-01 06:22] LABS: Acanthocytes 1+; Anisocytosis Present; Hypochromasia Present; Ovalocytes 1+
[2018-12-01 06:38] LABS: BUN Creatinine Ratio 55.3 (10-20); Creatinine Clr Calc Pharmacy 37.9 ml/min; Est GFR (African American) 64.3; Est GFR (Non-African American) 55.5; Potassium 4.1 mmol/L (3.5-5.1)
[2018-12-01] MEDS: ALBUT/IPRATROP 3MG/0.5MG NEB 3 ML VIAL NEB SCH ×3 (07:07→15:10)
[2018-12-01] MEDS: HEPARIN SOD 5,000 UNIT/0.5 ML VIAL SQ SCH (07:21)
[2018-12-01] MEDS: ASPIRIN 81 MG ECTAB PO SCH (08:08)
[2018-12-01] MEDS: FLUTICASONE/SALMETEROL (ADVAIR) 500/50 INH 14 PUFF INH SCH (08:08)
[2018-12-01] MEDS: CARVEDILOL 12.5 MG TAB PO SCH (08:08)
[2018-12-01] MEDS: CLOPIDOGREL BISULFATE 75 MG TAB PO SCH (08:09)
[2018-12-01] MEDS: FEXOFENADINE 60 MG TAB PO SCH (08:09)
[2018-12-01] MEDS: SERTRALINE HCL 50 MG TABLET PO SCH (08:09)
[2018-12-01] MEDS: LISINOPRIL 5 MG TAB PO SCH (08:09)
[2018-12-01] MEDS: guaiFENesin 600 MG TABCR PO SCH (08:09)
[2018-12-01] MEDS: FUROSEMIDE 40 MG TAB PO SCH (08:09)
[2018-12-01] MEDS: PANTOprazole 40 MG TAB PO SCH (08:09)
[2018-12-01] MEDS: POTASSIUM CHLORIDE 20 MEQ TABCR PO SCH (08:09)
[2018-12-01] MEDS ORDERED: predniSONE 10 MG TABLET PO SCH (09:00)
[2018-12-01] MEDS: levoFLOXacin 750 MG TAB PO SCH (11:18)
--- NOTE | 2018-12-01 13:18 | Hospitalist Progress Note ---
Date of Service December 01, 2018 Assessment & Plan (1) Acute and chronic respiratory failure: - Likely multifactorial between acute CHF exacerbation/pneumonia/pleural effusion/COPD exacerbation/pulmonary HTN - Echo (February 2017) - R ventricular systolic pressures 30-40 mmHg -Currently on her baseline O2 with good saturations - She is S/P bronchoscopy on 11/23 with washings growing Klebsiella oxytoca -- Large mucous impaction with LLL collapse - Converted to Levaquin for Klebsiella coverage - tx end is 12/01 and currently renally dosed - Consulted pulmonology - vibration vest/hypertonic saline nebs - no further pulmonary needs (2) COPD (chronic obstructive pulmonary disease): - With acute exacerbation and slowly improving - Duonebs QID; Advair BID; Mucinex BID - Reduce to Prednisone 30 mg daily and continue to taper - Vibration vest/saline nebs (3) CHF (congestive heart failure): - Systolic with H/O CAD and appears to have chronically elevated cardiac enzymes; reports chronic angina but also endorses a lot of anxiety as well and uses NTG when she gets anxious sometimes; H/O paroxysmal atrial fibrillation and is S/P pacer/AICD - Continue Lasix 40 mg daily (normally is on 40 mg BID) will monitor I&Os and renal function - ASA 81 mg daily/Plavix 75 mg daily; Atorvastatin 80 mg daily; Carvedilol 18.75 mg BID; Lisinopril 5 mg daily - No anticoagulation due to H/O SAH and GIB (4) PNA (pneumonia): - Growing Klebsiella oxytoca on bronch washings which could be translocation but will treat - is pansensitive - Levaquin 750 mg Q2D for renal dosing for a 7 day treatment course ended 12/01 - FISCAL OFFICER consulted - no aspiration and recommending dental soft diet (5) DVT prophylaxis: - SCDs given H/O GI/SAH Disposition: Patient refusing rehab or home health. Hopefully will be able to discharge tomorrow as she is near her baseline Subjective Ms. Jameson continues to feel she is improving slowly. She is up to a chair but feels she is not quite at her baseline. Review of Systems All systems reviewed & are unremarkable except as noted in HPI & below Physical Exam 2 Vital Signs (Past 24 Hours): Last Vital Signs Temp 36.3 C L 12/01/18 08:04 Pulse 71 12/01/18 10:54 Resp 17 12/01/18 10:54 BP 126/94 12/01/18 08:04 Pulse Ox 98 12/01/18 10:54 Physical Exam: General: no distress Eyes: normal inspection, PERLL Respiratory: chest non tender, coarse breath sounds bilaterally, no respiratory distress, no accessory muscle use Cardiac: regular rate and rhythm, no rub or gallop, no murmur, no edema, no jvd GI/: active bowel sounds, no abd pain or tenderness, soft, non distended Extremities: normal range of motion, normal strength, non tender Neuro/Psych: alert and oriented x 3, normal mood and affect Skin: normal color, dry Results & Data Laboratory Results Abnormal lab results 12/01/18 12/01/18 Range/Units 05:20 05:20 WBC 13.53 H (4.8-10.8) K/uL RBC 4.05 L (4.2-5.4) M/uL Hgb 9.4 L (12.0-16.0) g/dL Hct 30.6 L (37-47) % MCV 75.6 L (80-100) fL MCH 23.2 L (25-34) pg MCHC 30.7 L (32-36) g/dL RDW Std Deviation 64.0 H (36.4-46.3) fL RDW Coeff of Kiana 23.0 H (11.5-14.5) % Immature Gran # (Auto) 0.26 H (0.00-0.02) K/uL Neut # (Auto) 10.13 H (1.4-6.5) K/uL Lymph # (Auto) 1.17 L (1.2-3.4) K/uL [place] # (Auto) 1.96 H (0.11-0.59) K/uL BUN 55 H (7-18) mg/dl BUN/Creatinine Ratio 55.3 H (10-20) Glucose 119 H (70-99) mg/dl Calcium 8.0 L (8.5-10.1) mg/dl _ (1) CHF (congestive heart failure) Heart failure chronicity: acute on chronic Heart failure type: unspecified Qualified Code(s): I50.9 - Heart failure, unspecified (2) PNA (pneumonia) Aspiration pneumonia type: Laterality: left Lung location: lower lobe of lung Pneumonia type: due to unspecified organism Qualified Code(s): J18.1 - Lobar pneumonia, unspecified organism
--- NOTE | 2018-12-01 17:56 | Discharge Summary ---
Date of Service December 01, 2018 Admission HPI Per Admitting Provider 73 y/o F Hx advanced COPD, systolic CHF 25%, pacer/AICD, CAD, AF, HTN, HLD, anxiety. The pt is dependent on 4-5L 02. She presents with progressive SOB for 2 days in addition to a productive cough. She could not confirm fevers and denies CP. She was in moderate respiratory distress on arrival and required BiPAP to maintain an adequate saturation. The pt was recently admitted with repiratory failure associated with CHF and influenza. A CT of the chest was obtained in the ER demonstrating left lower lobe collapse with secretions throughout the left lower lobe bronchi, small b/l pleural effusions. PMH: 1) CAD - [place] 1999 2) Chronic AF 3) History of GI bleed 4) COPD - dependent on 4-5 L home 02 5) AICD/pacer 6) History of subarachnoid hemorrhage 7) HTN 8) HLD 9) Anxiety Surgical: 1) Carotid endarterectomy 2) Hysterectomy 3) Carpal tunnel release 4) AICD/pacer Social: Does not currently smoke or drink - extensive smoking history Family: Noncontributory to current complaint Principal Diagnosis Hypoxia Discharge Exam Constitutional WD/WN, vitals as above Respiratory normal respiratory effort, lungs clear to auscultation Cardiovascular RRR, no murmur, no edema Gastrointestinal (Abdomen) normal bowel sounds, soft, nontender, no hepatosplenomegaly Musculoskeletal no cyanosis or clubbing, extremities motor strength 5/5 Skin no rashes, warm and dry Neurologic moves all extremities and awake Psychiatric A+Ox3, euthymic affect Discharge Data Allergies Allergy/AdvReac Type Severity Reaction Status Date / Time Sulfa (Sulfonamide Allergy Intermediate RASH Verified 11/22/18 12:26 Antibiotics) morphine AdvReac Mild GI SYMPTOMS Verified 11/22/18 12:26 Consultations 11/22/18 12:42 ED Decision to Admit Stat 11/22/18 14:55 Consult Case Management - Discharge Planning Routine Consult Maintenance Planner Routine 11/25/18 12:56 Consult Pulmonology Routine 12/01/18 17:44 Consult Pulmonary Rehabilitation Routine Ordered Studies 11/22/18 13:24 CT chest wo con Stat 11/26/18 12:45 FL video swallow Routine Hospital Course (1) Acute and chronic respiratory failure: - Likely multifactorial between acute CHF exacerbation/pneumonia/pleural effusion/COPD exacerbation/pulmonary HTN - Echo (February 2017) - R ventricular systolic pressures 30-40 mmHg -Currently on her baseline O2 with good saturations - She is S/P bronchoscopy on 11/23 with washings growing Klebsiella oxytoca -- Large mucous impaction with LLL collapse - Converted to Levaquin for Klebsiella coverage - tx ended 12/01 - Consulted pulmonology - vibration vest/hypertonic saline nebs while inpatient - no further pulmonary needs - will request pulmonary rehab consult for after discharge (2) COPD (chronic obstructive pulmonary disease): - With acute exacerbation on admission - Duonebs QID; Advair BID; Mucinex BID - Reduce to Prednisone 30 mg daily and continue to taper outpatient - Vibration vest/saline nebs while inpatient (3) CHF (congestive heart failure): - Systolic with H/O CAD and appears to have chronically elevated cardiac enzymes; reports chronic angina but also endorses a lot of anxiety as well and uses NTG when she gets anxious sometimes; H/O paroxysmal atrial fibrillation and is S/P pacer/AICD. - Given Lasix 40 mg daily inpatient - will return patient to home dose Lasix 40 mg bid for discharge - ASA 81 mg daily/Plavix 75 mg daily; Atorvastatin 80 mg daily; Carvedilol 18.75 mg BID; Lisinopril 5 mg daily - No anticoagulation due to H/O SAH and GIB (4) PNA (pneumonia): - Growing Klebsiella oxytoca on bronch washings which could be translocation but will treat - is pansensitive - Levaquin 750 mg Q2D for renal dosing for a 7 day treatment course ended 12/01 - DETECTIVE [employer] consulted - no aspiration and recommending dental soft diet (5) DVT prophylaxis: - SCDs - patient refused heparin due to history of bleed Disposition: Patient refusing rehab or home health. I did discuss with her that it is my strong recommendation that she either consider rehab or home health services for discharge but she feels she has enough family help and declined. Total Time Total Time Spent Total Time Spent (In Minutes): greater than 30 minutes Discharge Plan Discharge Items Patient Disposition: Home - Self-Care Reason For Visit: HYPOXIA, PNM, CHF Discharge Diagnosis: Hypoxia, pneumona, CHF Discharge Goals: Improve disease control Activity: Resume your previous activity Activity Comment: gradually as tolerated Non-emergency contact: Primary Care Provider Call non-emergency contact if: you have any medication questions and you have a fever Diet: Heart Healthy Diet Texture: Dental soft (bite-sized) Addtl Provider Instructions: Please see your primary care provider within about a week. Please follow up with your offal icer poultry as well. Continue with your normal home oxygen supplementation. I strongly encourage you to avoid second hand smoke. You will return home with a prednisone taper as follows: 30 mg x 4 days 20 mg x 4 days 10 mg x 4 days Call 911 and go to the Emergency Room if: * You have tightness or pain in your chest that does not go away with rest or Nitroglycerin * You are very short of breath even with rest Call your doctor if any of the following symptoms or problems start or get worse: * Shortness of breath or difficulty breathing * Wake up at night short of breath * Chest pain * Cough * Swelling of your hands, fee, or legs * More fatigued or tired with your normal activity * Palpitations - sudden fast heart beats WEIGHT * Weigh yourself every morning after using the bathroom. * Use the same scale. * Wear the same amount of clothing. * Write your weight down on your chart. * Call your doctor if you gain more than 2-3 pounds in 1-2 days. MEDICATIONS * Use this discharge instruction sheet for instructions. * Take your medications at the time your doctor ordered. * Do not skip a dose of your medicines. * If you miss a dose of medicine, take as soon as possible, but DO NOT DOUBLE A DOSE. * Read your medicine information when you get home. * Know all of the side effects of your medicine. * Call your doctor's office if you have any side effects. * Be sure all of your doctors know what medicine and herbs you take (including cold, flu, and herbal medicine). * Pain Medicine: If you do not get relief from your pain, please call your doctor for help. Take the following with you to your follow-up doctor appointments: * Weight Chart * Medication List * List of questions Do not drink excessive alcohol, beer or wine. Prescriptions: New prednisone 10 mg Tablet 30 mg PO DAILY Qty: 24 RF: 0 Continue furosemide [Lasix] 40 mg Tablet 40 mg PO BID RF: 0 atorvastatin 80 mg Tablet 80 mg PO HS RF: 0 carvedilol 12.5 mg Tablet 18.75 mg PO BID RF: 0 albuterol sulfate 2.5 mg /3 mL (0.083 %) Solution For Nebulization 2.5 mg INHALATION Q4 PRN (Reason: Shortness Of Breath Or Wheezing) RF: 0 fexofenadine 60 mg Tablet 60 mg PO BID RF: 0 clonazepam 0.5 mg Tablet 0.25 - 0.5 mg PO HS PRN (Reason: Sleep) RF: 0 clopidogrel 75 mg Tablet 75 mg PO DAILY RF: 0 aspirin [Aspir-81] 81 mg Tablet,Delayed Release (Dr/Ec) 81 mg PO DAILY RF: 0 potassium chloride 20 mEq Tablet,Er Particles/Crystals 20 meq PO DAILY RF: 0 fluticasone-salmeterol [Advair Diskus] 500-50 mcg/dose Blister With Device 1 inh INHALATION BID RF: 0 pramipexole 0.25 mg Tablet 0.25 mg PO PM RF: 0 lisinopril 5 mg Tablet 5 mg PO DAILY RF: 0 ergocalciferol (vitamin D2) [Vitamin D2] 50,000 unit Capsule 50,000 unit PO WK RF: 0 albuterol sulfate [Ventolin HFA] 90 mcg/actuation Hfa Aerosol Inhaler 1 - 2 puff INHALATION Q4 PRN (Reason: Shortness Of Breath Or Wheezing) RF: 0 fluticasone 50 mcg/actuation [place],Suspension 2 spray INTRANASAL DAILY RF: 0 sertraline 50 mg Tablet 50 mg PO DAILY RF: 0 ezetimibe 10 mg Tablet 10 mg PO HS RF: 0 sodium chloride [[place] Nasal] 0.65 % Aerosol,[place] 1 spray INTRANASAL DIRECTED PRN (Reason: Nasal Congestion) RF: 0 tiotropium bromide [Spiriva with HandiHaler] 18 mcg Capsule, W/Inhalation Device 1 - 2 cap INHALATION Q4 PRN (Reason: Shortness Of Breath Or Wheezing) RF: 0 guaifenesin [Mucinex] 1,200 mg Tablet Extended Release 12hr 1,200 mg PO Q12H RF: 0 ipratropium-albuterol [Combivent Respimat] 20-100 mcg/actuation [place] 1 puff INHALATION QID RF: 0 ondansetron HCl [Zofran] 4 mg tablet 4 mg PO Q6H PRN (Reason: nausea and vomiting) Qty: 10 RF: 0 Stand-Alone Forms: [facility] Discharge Orders: Discharge Order (Routine); Ordered 12/01/18 Ordered By: Lucie Ruby Admission Data Admit Date/Time: 11/22/18 13:51 Attending Provider: Girma Shine Admit Provider: Roderick Estevez Primary Care Provider: Edy Ornelas V. Other Providers: Roderick Estevez ; Florencio Nolan ; Lonnie Tiwari ; Kristopher Rayo Service: Medical
== END 2018-12-01 18:55 | disposition home or self-care (01) | DRG 166 ==
LOC: ED 11:33 → 1E 13:51 → SUATTDRO 13:51 → 1E 14:44 → 2S 11-23 15:56 → 4W 11-28 12:34

== ENCOUNTER 2018-12-19 08:06 | Inpatient (IN) ==
[2018-12-19] MEDS ORDERED: methylPREDNISolone 125 MG/2 ML VIAL IV STA (08:13)
[2018-12-19] MEDS ORDERED: ALBUT/IPRATROP 3MG/0.5MG NEB 3 ML VIAL INH STA (08:13)
[2018-12-19 08:40] LABS: Hematocrit (blood only) 26.3 % (37-47); Mean Corpuscular Hgb Conc 30.4 g/dL (32-36); Mean Corpuscular Volume 78.7 fL (80-100); Mean Platelet Volume 9.2 fL (7.4-10.4); Platelet Count 195 K/uL (130-400); RDW Coefficient of Variation 22.9 % (11.5-14.5); RDW Standard Deviation 67.1 fL (36.4-46.3); Red Blood Count 3.34 M/uL (4.2-5.4); White Blood Count 6.12 K/uL (4.8-10.8)
--- NOTE | 2018-12-19 08:41 | XRay Report ---
XR chest 1V portable CLINICAL HISTORY: Dyspnea COMPARISON STUDY: Chest radiograph November 23, 2018. FINDINGS: Left subclavian biventricular pacer/AICD is in place. There are left neck surgical clips. T here is no pneumothorax. Cardiomegaly is unchanged. There is no evidence for overt pulmonary edema. L eft basilar opacity and left pleural effusion have improved since exam of November 23, 2018. IMPRESSION: 1. Interval improvement in left basilar opacity and a left pleural effusion since exam of November. 2. Cardiomegaly without overt pulmonary edema. Electronically signed by: Bora Schmitt M.D. 12/19/2018 8:40 AM
[2018-12-19 09:01] LABS: Partial Thromboplastin Ratio 0.9; Partial Thromboplastin Time 24.3 Seconds (21.0-31.0); Prothrombin Time 10.3 Seconds (9.0-12.0)
[2018-12-19 09:02] LABS: Appearance Urine Clear (Clear); Bilirubin Urine Negative (Negative); Blood Urine Negative (Negative); Color Urine Yellow; Glucose Urine UA Negative (Negative); Ketones Urine Negative (Negative); Leukocyte Esterase Urine Negative (Negative); Nitrite Urine Negative (Negative); Protein Urine Negative (Negative); Specific Gravity Urine 1.012 (1.000-1.030); Urobilinogen Urine Negative (Negative)
[2018-12-19 09:13] LABS: Albumin Level 2.9 gm/dl (3.4-5.0); BUN Creatinine Ratio 46.8 (10-20); Calcium 8.6 mg/dl (8.5-10.1); Est GFR (African American) 76.1; Est GFR (Non-African American) 65.6; Potassium 4.2 mmol/L (3.5-5.1)
[2018-12-19 09:25] LABS: Influenza A virus by PCR Neg for Influ A (Neg); Influenza B virus by PCR Neg for Influ B (Neg)
[2018-12-19 09:36] LABS: ALC (manual) 0.49 K/uL (1.2-3.4); Hypochromasia Present; Lymphocytes # (manual) 0.49 K/uL (1.2-3.4); Monocytes # (manual) 0.17 K/uL (0.11-0.59); Monocytes % (manual) 2.7 %; Neutrophils % (manual) 89.3 %; Poikilocytosis Present; Schistocytes 1+; Spherocytes 1+; Target Cells 1+
[2018-12-19 09:39] LABS: Albumin Globulin Ratio 0.8 (0.9-2); Bilirubin,Total 0.3 mg/dl (0.2-1); Globulin 3.6 gm/dl (2.5-4.0); Total Protein 6.5 gm/dl (6.4-8.2); Troponin I 0.1 ng/ml (0-0.045)
[2018-12-19] MEDS ORDERED: ALBUT/IPRATROP 3MG/0.5MG NEB 3 ML VIAL NEB STA (11:04)
[2018-12-19] MEDS ORDERED: SODIUM CHLORIDE 0.9% 250 ML IV PRN (11:04)
[2018-12-19] MEDS ORDERED: CEFEPIME 1,000 MG in SYRINGE 0 ML IV STA (11:22)
--- NOTE | 2018-12-19 13:29 | History & Physical Report ---
Date of Service December 19, 2018 Assessment & Plan (1) COPD exacerbation: in setting of end-stage COPD. Chest x-ray does not show any focal pneumonia today. In fact, the previous left lower lobe pneumonia for which she was hospitalized for in November has resolved radiographically. We will employ Solu-Medrol 40 mg every 6 hours, Levaquin 750 mg every 24 hours, nebs, oxygen, inhalers, and supportive care. She is at high risk of decline and decompensation. We will ask [facility] to see in consult for additional recommendations. The patient would likely benefit from a palliative care consultation in light of her advanced disease. I do not see evidence of decompensated CHF today. Her A. fib for the most part is controlled. Present on Admission?: Yes (2) Acute on chronic respiratory failure with hypoxia and hypercapnia: Chronic respiratory failure is due to end-stage COPD. She was quite dyspneic during the visit. I asked the patient if she felt that she needed BiPAP and she said no. We will monitor carefully for any increased work of breathing and need for escalation of pulmonary support Await pulmonary consultation. (3) Ischemic cardiomyopathy: (4) Atrial fibrillation: Continue beta-dane for rate control. She is not on chronic full- strength anticoagulation. (5) CAD (coronary artery disease): She reports no ischemic symptoms at this time. Continue aspirin, beta dane, Zetia, WALTER inhibitor, and Lipitor. (6) Chronic systolic (congestive) heart failure: The patient's weight has been stable relative to her previous hospital stay. She does not look volume overloaded. continue beta-dane, low-dose WALTER inhibitor and Lasix. Daily weights with strict I's and O's. AHA diet. (7) Iron deficiency anemia: The patient's baseline hemoglobin is about 9. Her hemoglobin today is 8. Previous ferritin level was quite low at less than 20. We will check additional iron studies in the morning and check a fecal occult blood. Continue iron supplementation. I would hold off on transfusion today but if her hemoglobin drops below 7.5 would transfuse at that time. On smear the patient has spherocytes and target cells along with schistocytes. Could consider hemolytic workup as well as workup for liver dysfunction. Repeat CBC in the morning. (8) Hypertension: Continue home medications (9) Anxiety: Continue home medication Consider psychiatry consult (10) Left lower lobe pneumonia: Treated during her prior hospital stay in November 2018. It is clinically and radiographically resolved. (11) Chronic kidney disease, stage 3a: Creatinine is stable today. Repeat BMP in a.m. (12) DVT prophylaxis: Heparin 5000 units twice daily. Low threshold to stop this if her stool is heme positive and/or her hemoglobin level drops daily. Care was discussed with Dr. Arjun Portillo from pulmonary. Total time was approximately 70 minutes spent on admission activities. History of Present Illness Chief Complaint: shortness of breath Primary Care Provider: Edy Ornelas MD 73yo female with chronic systolic CHF, pacemaker/AICD, and chronic respiratory failure on home O2 (3 liters) due to COPD presents with worsening cough and dyspnea. She was hospitalized in November for LLL pneumonia and COPD flare. She feels like she never fully recovered from that admission. Over the last week she has had crescendoing dyspnea and cough. About 3am over the last few nights she had woken up with severe dyspnea. She treats the PND with nebulizer treatments. The neb treatments have been only partially effective. No fever. Appetite has been fair. turned her O2 up to 4 liters yesterday. She was up most of last evening with cough/dyspnea and continued to worsen and thus came to ER today for evaluation. Cough is nonproductive. Weight has been stable -- no LE edema. No sick contacts. Allergies Allergy/AdvReac Type Severity Reaction Status Date / Time Sulfa (Sulfonamide Allergy Intermediate RASH Verified 12/19/18 09:40 Antibiotics) morphine AdvReac Mild GI SYMPTOMS Verified 12/19/18 09:40 Home Medications Home Medications Medication Instructions Recorded Confirmed Type Combivent Respimat 1 puff INHALATION QID 10/24/18 12/19/18 History Spiriva with HandiHaler 1 - 2 cap INHALATION Q4 PRN 10/24/18 12/19/18 History albuterol sulfate 2.5 mg INHALATION Q4 PRN 10/24/18 12/19/18 History albuterol sulfate [Ventolin HFA] 1 - 2 puff INHALATION Q4 PRN 10/24/18 12/19/18 History aspirin [Aspir-81] 81 mg PO HS 10/24/18 12/19/18 History atorvastatin 80 mg PO HS 10/24/18 11/22/18 History carvedilol 18.75 mg PO BID 10/24/18 12/19/18 History clonazepam 0.25 - 0.5 mg PO HS PRN 10/24/18 12/19/18 History clopidogrel 75 mg PO QAM 10/24/18 12/19/18 History ezetimibe 10 mg PO HS 10/24/18 12/19/18 History fluticasone 2 spray INTRANASAL QAM 10/24/18 12/19/18 History fluticasone-salmeterol [Advair 1 inh INHALATION BID 10/24/18 12/19/18 History Diskus] furosemide [Lasix] 40 mg PO BID 10/24/18 12/19/18 History guaifenesin [Mucinex] 1,200 mg PO Q12H 10/24/18 12/19/18 History lisinopril 5 mg PO QAM 10/24/18 12/19/18 History potassium chloride 20 meq PO QAM 10/24/18 12/19/18 History pramipexole 0.25 mg PO HS 10/24/18 12/19/18 History sertraline 50 mg PO HS 10/24/18 12/19/18 History sodium chloride [Adair Nasal] 1 spray INTRANASAL DIRECTED PRN 10/24/18 12/19/18 History ondansetron HCl [Zofran] 4 mg PO Q6H PRN #10 tab 10/29/18 12/19/18 Rx acetaminophen [Tylenol Extra 500 mg PO Q6H PRN 12/19/18 12/19/18 History Strength] Past Med/Surg History Medical History CAD (coronary artery disease) s/p AK in 1999 Atrial fibrillation Ischemic cardiomyopathy EF 25-30% Dyslipidemia Hypertension COPD (chronic obstructive pulmonary disease) (Acute) CHF (congestive heart failure) (Chronic) Pulmonary congestion Non compliance w medication regimen Emphysema of lung Syncope Acute and chronic respiratory failure with hypercapnia Acute and chronic respiratory failure with hypoxia Ambulatory dysfunction (Acute) GIB (gastrointestinal bleeding) Reflux esophagitis SAH (subarachnoid hemorrhage) Surgical History S/P carotid endarterectomy S/P carpal tunnel release S/P hysterectomy S/P implantation of automatic cardioverter/defibrillator (AICD) Social History Preferred Language: Icelandic Communication Ability: Effective Log Sorter Required: No Beliefs That Will Affect Care: None marital status: Current Living Situation: Spouse Current Living Situation Comment: lives in [place]; has 3 children current occupational status: retired Other Information That Helps Us Care for You: 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[employer], 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) Feels Safe at Home: Yes Safety Concerns: Feels Safe At This Time Smoking Status: Former smoker Hx Alcohol Use: No Hx Substance Use: No Review of Systems Constitutional: no fever, no chills, no anorexia, no weight loss and no weight gain Eyes: no worsening vision Ear, Nose, Mouth, Throat: + nasal congestion; no sore throat and no dysphagia Respiratory: + cough, + chest congestion, + sputum production (yellow) and + wheezing; no hemoptysis Cardiovascular: + orthopnea and + paroxysmal nocturnal dyspnea; no chest pain, no syncope and no edema Gastrointestinal: no abdominal pain, no vomiting, no constipation, no diarrhea/loose stools, no blood in stools and no melena Genitourinary (Female): no dysuria Musculoskeletal: no joint pain Integumentary: no rash headache Psychiatric: no depression no diabetes Physical Exam Vital Signs (Past 24 Hours): Last Vital Signs Temp 36.8 C 12/19/18 08:13 Pulse 93 H 12/19/18 13:00 Resp 23 12/19/18 13:00 BP 126/79 12/19/18 13:00 Pulse Ox 99 12/19/18 13:00 Constitutional: + acute distress (mild - grunts at times, pursed lips), + ill appearing and + thin Eyes: PERRL ENMT: external ear and nose normal, oropharynx normal Neck: trachea midline, no thyromegaly Respiratory: Auscultation: + rhonchi and + wheezes (extensive b/l) Cardiovascular: Rate/Rhythm: regular rate; + abnormal rhythm (irregular) Heart Sounds: normal S1 and normal S2; no murmur Vessels: posterior tibial pulses present and dorsalis pedis pulses present; no JVD Extremities: no pedal edema Gastrointestinal (Abdomen): normal bowel sounds, soft, nontender, no hepatosplenomegaly Musculoskeletal: Extremities: strength 5/5 throughout Skin: Mild pallor Neurologic: deep tendon reflexes 2+ bilaterally and moves all extremities Psychiatric: Orientation: alert and oriented x 3 Mood: + anxious mood Lymphatic: no cervical lymphadenopathy Results & Data Laboratory Results Laboratory Results - last 24 hr 12/19/18 12/19/18 12/19/18 08:20 08:20 08:20 WBC 6.12 RBC 3.34 L Hgb 8.0 L Hct 26.3 L MCV 78.7 L MCH 24.0 L MCHC 30.4 L RDW Std Deviation 67.1 H RDW Coeff of Kiana 22.9 H Plt Count 195 MPV 9.2 Neutrophils % (Manual) 89.3 Lymphocytes % (Manual) 8.0 Monocytes % (Manual) 2.7 Neutrophils # (Manual) 5.47 Total Absolute Neuts 5.47 Lymphocytes # (Manual) 0.49 L Total Abs Lymphocytes 0.49 L Monocytes # (Manual) 0.17 Hypochromasia Present Poikilocytosis Present Spherocytes 1+ Target Cells 1+ Schistocytes 1+ PT 10.3 INR 1.0 APTT 24.3 PTT Ratio 0.9 Sodium 139 Potassium 4.2 Chloride 102 Carbon Dioxide 33 H Anion Gap 4.0 BUN 41 H Creatinine 0.87 Est Cr Clr Drug Dosing 41.0 Est GFR ( Amer) 76.1 Est GFR (Non-Af Amer) 65.6 BUN/Creatinine Ratio 46.8 H Glucose 140 H Calcium 8.6 Magnesium 2.0 Total Bilirubin 0.3 AST 40 H ALT 50 Alkaline Phosphatase 98 Troponin I 0.100 H* Total Protein 6.5 Albumin 2.9 L Globulin 3.6 Albumin/Globulin Ratio 0.8 L Urine Color Urine Appearance Urine pH Ur Specific Hanna Urine Protein Urine Glucose (UA) Urine Ketones Urine Blood Urine Nitrite Urine Bilirubin Urine Urobilinogen Ur Leukocyte Esterase Influenza Type A (PCR) Influenza Type B (PCR) Blood Type Antibody Screen Crossmatch 12/19/18 12/19/18 12/19/18 08:25 08:40 11:13 WBC RBC Hgb Hct MCV MCH MCHC RDW Std Deviation RDW Coeff of Kiana Plt Count MPV Neutrophils % (Manual) Lymphocytes % (Manual) Monocytes % (Manual) Neutrophils # (Manual) Total Absolute Neuts Lymphocytes # (Manual) Total Abs Lymphocytes Monocytes # (Manual) Hypochromasia Poikilocytosis Spherocytes Target Cells Schistocytes PT INR APTT PTT Ratio Sodium Potassium Chloride Carbon Dioxide Anion Gap BUN Creatinine Est Cr Clr Drug Dosing Est GFR ( Amer) Est GFR (Non-Af Amer) BUN/Creatinine Ratio Glucose Calcium Magnesium Total Bilirubin AST ALT Alkaline Phosphatase Troponin I Total Protein Albumin Globulin Albumin/Globulin Ratio Urine Color Yellow Urine Appearance Clear Urine pH 7.0 Ur Specific Hanna 1.012 Urine Protein Negative Urine Glucose (UA) Negative Urine Ketones Negative Urine Blood Negative Urine Nitrite Negative Urine Bilirubin Negative Urine Urobilinogen Negative Ur Leukocyte Esterase Negative Influenza Type A (PCR) Neg for Influ A Influenza Type B (PCR) Neg for Influ B Blood Type O Positive Antibody Screen NEGATIVE Crossmatch See Detail Diagnostic Findings cxr- IMPRESSION: 1. Interval improvement in left basilar opacity and a left pleural effusion since exam of November 23, 2018. 2. Cardiomegaly without overt pulmonary edema. EKG - ventricular pacing with ectopy Code Status & VTE Plan Code Status DNR level 5 VTE Prophylaxis Plan VTE Prophylaxis will be ordered: Yes (1) Atrial fibrillation Atrial fibrillation type: chronic Qualified Code(s): I48.2 - Chronic atrial fibrillation (2) CAD (coronary artery disease) Coronary Disease-Associated Artery/Lesion type: lummi artery [place] vs. transplanted heart: lummi heart Associated angina: without angina Qualified Code(s): I25.10 - Atherosclerotic heart disease of lummi coronary artery without angina pectoris (3) Iron deficiency anemia Iron deficiency anemia type: unspecified iron deficiency Qualified Code(s): D50.9 - Iron deficiency anemia, unspecified (4) Hypertension Hypertension type: essential hypertension Qualified Code(s): I10 - Essential (primary) hypertension (5) Left lower lobe pneumonia Pneumonia type: due to unspecified organism Qualified Code(s): J18.1 - Lobar pneumonia, unspecified organism
--- NOTE | 2018-12-19 16:13 | Emergency Department Note ---
Entered by Seymour Casarez acting as a scribe for Graciela Haji MD History of Present Illness General Chief complaint: Shortness of Breath/Dyspnea Time Seen by Provider: 12/19/18 08:08 Source: patient History of Present Illness Onset (ago): day(s) (past couple) Location: chest (lungs) Pain Consistency: + other (worsening) Quality: + other (shortness of breath) Associated symptoms: + cough; no chest pain and no fever/chills Treatments prior to arrival: other (Duoneb, Albuterol) The patient is a 73 year old female with a history of COPD and emphysema who presents to the Emergency Room with complaints of worsening shortness of breath over the past couple of days. The patient reports a non-productive cough. She denies fevers or chest pain. She reports that she chronically wears 3L supplemental oxygen at all times. The nurse reports the patient received one Duoneb in the ambulance, and she took albuterol this morning at home prior to arrival. The patient states that she follows [facility] but has not seen them recently. Home Medications Home Medications Medication Instructions Recorded Confirmed Type Combivent Respimat 1 puff INHALATION QID 10/24/18 12/19/18 History Spiriva with HandiHaler 1 - 2 cap INHALATION Q4 PRN 10/24/18 12/19/18 History albuterol sulfate 2.5 mg INHALATION Q4 PRN 10/24/18 12/19/18 History albuterol sulfate [Ventolin HFA] 1 - 2 puff INHALATION Q4 PRN 10/24/18 12/19/18 History aspirin [Aspir-81] 81 mg PO HS 10/24/18 12/19/18 History atorvastatin 80 mg PO HS 10/24/18 11/22/18 History carvedilol 18.75 mg PO BID 10/24/18 12/19/18 History clonazepam 0.25 - 0.5 mg PO HS PRN 10/24/18 12/19/18 History clopidogrel 75 mg PO QAM 10/24/18 12/19/18 History ezetimibe 10 mg PO HS 10/24/18 12/19/18 History fluticasone 2 spray INTRANASAL QAM 10/24/18 12/19/18 History fluticasone-salmeterol [Advair 1 inh INHALATION BID 10/24/18 12/19/18 History Diskus] furosemide [Lasix] 40 mg PO BID 10/24/18 12/19/18 History guaifenesin [Mucinex] 1,200 mg PO Q12H 10/24/18 12/19/18 History lisinopril 5 mg PO QAM 10/24/18 12/19/18 History potassium chloride 20 meq PO QAM 10/24/18 12/19/18 History pramipexole 0.25 mg PO HS 10/24/18 12/19/18 History sertraline 50 mg PO HS 10/24/18 12/19/18 History sodium chloride [[place] Nasal] 1 spray INTRANASAL DIRECTED PRN 10/24/18 12/19/18 History ondansetron HCl [Zofran] 4 mg PO Q6H PRN #10 tab 10/29/18 12/19/18 Rx acetaminophen [Tylenol Extra 500 mg PO Q6H PRN 12/19/18 12/19/18 History Strength] Allergies Allergy/AdvReac Type Severity Reaction Status Date / Time Sulfa (Sulfonamide Allergy Intermediate RASH Verified 12/19/18 09:40 Antibiotics) morphine AdvReac Mild GI SYMPTOMS Verified 12/19/18 09:40 Past Med/Surg History Medical History CAD (coronary artery disease) s/p [facility] in 1999 Atrial fibrillation Ischemic cardiomyopathy EF 25-30% Dyslipidemia Hypertension COPD (chronic obstructive pulmonary disease) (Acute) CHF (congestive heart failure) (Chronic) Pulmonary congestion Non compliance w medication regimen Emphysema of lung Syncope Acute and chronic respiratory failure with hypercapnia Acute and chronic respiratory failure with hypoxia Ambulatory dysfunction (Acute) GIB (gastrointestinal bleeding) Reflux esophagitis SAH (subarachnoid hemorrhage) Surgical History S/P carotid endarterectomy S/P carpal tunnel release S/P hysterectomy S/P implantation of automatic cardioverter/defibrillator (AICD) Social History Preferred Language: Mohawk Communication Ability: Effective 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 and A total of 10 systems reviewed and were otherwise negative Physical Exam Vital Signs Vital Signs - 24 hr 12/19/18 19:03 12/19/18 19:58 12/19/18 23:03 Temperature 36.4 C L Temperature Source Oral Pulse Rate [Finger] 86 91 H 97 H Pulse Rhythm [Finger] Pulse Strength [Finger] Respiratory Rate 18 20 20 Respiratory Effort / Characteristics Non-Labored Spontaneous Non-Labored Spontaneous Respiratory Depth Respiratory Pattern Blood Pressure [Right Arm] 125/54 L Blood Pressure Mean [Right Arm] 77 Blood Pressure Position [Right Arm] Sitting Pulse Oximetry 97 99 97 Oxygen Delivery Method Nasal Cannula Nasal Cannula Nasal Cannula Oxygen Flow Rate 3 3 3 12/19/18 23:16 12/19/18 23:45 12/20/18 03:05 Temperature 36.6 C Temperature Source Oral Pulse Rate [Finger] 96 H 91 H Pulse Rhythm [Finger] Pulse Strength [Finger] Respiratory Rate 18 20 Respiratory Effort / Characteristics SOB on Exertion Non-Labored Spontaneous Respiratory Depth Normal Respiratory Pattern Blood Pressure [Right Arm] 132/63 Blood Pressure Mean [Right Arm] 86 Blood Pressure Position [Right Arm] Lying Pulse Oximetry 99 99 Oxygen Delivery Method Nasal Cannula Nasal Cannula Nasal Cannula Oxygen Flow Rate 3 3.5 3 12/20/18 04:35 12/20/18 07:08 12/20/18 08:00 Temperature 36.7 C 36.5 C Temperature Source Oral Oral Pulse Rate [Finger] 92 H 89 88 Pulse Rhythm [Finger] Regular Pulse Strength [Finger] Normal Respiratory Rate 20 20 18 Respiratory Effort / Characteristics Non-Labored Non-Labored Spontaneous SOB on Exertion Respiratory Depth Normal Normal Respiratory Pattern Regular Blood Pressure [Right Arm] 127/64 104/62 Blood Pressure Mean [Right Arm] 85 76 Blood Pressure Position [Right Arm] Lying Pulse Oximetry 98 98 96 Oxygen Delivery Method Nasal Cannula Nasal Cannula Nasal Cannula Oxygen Flow Rate 3.5 3 3.5 12/20/18 11:14 12/20/18 11:56 12/20/18 15:10 Temperature 37.0 C Temperature Source Oral Pulse Rate [Finger] 82 85 85 Pulse Rhythm [Finger] Pulse Strength [Finger] Respiratory Rate 20 20 18 Respiratory Effort / Characteristics Spontaneous Short of Breath Spontaneous Respiratory Depth Normal Respiratory Pattern Blood Pressure [Right Arm] 121/57 L Blood Pressure Mean [Right Arm] 78 Blood Pressure Position [Right Arm] Sitting Pulse Oximetry 94 96 98 Oxygen Delivery Method Nasal Cannula Nasal Cannula Nasal Cannula Oxygen Flow Rate 3 3 4 12/20/18 15:46 Temperature 36.5 C Temperature Source Oral Pulse Rate [Finger] 84 Pulse Rhythm [Finger] Pulse Strength [Finger] Respiratory Rate 16 Respiratory Effort / Characteristics Respiratory Depth Normal Respiratory Pattern Blood Pressure [Right Arm] 128/63 Blood Pressure Mean [Right Arm] 84 Blood Pressure Position [Right Arm] Sitting Pulse Oximetry 96 Oxygen Delivery Method Nasal Cannula Oxygen Flow Rate 3 Vital signs reviewed. General: Chronically ill-appearing female, in no significant distress, on 3L nasal cannula. HEENT: No scleral icterus, PERRLA, neck supple. Atraumatic. Cardiovascular: Regular rate and rhythm, no extra sounds. Pulmonary: Wheezing throughout lung english bilaterally, slightly increased work of breathing on 3L nasal cannula. Abdomen: Soft, nontender, nondistended, positive bowel sounds. Rectal: Guaiac negative. Musculoskeletal: Atraumatic, no peripheral edema. Neurologic: Patient awake alert and oriented x 3 Skin: Warm, dry, no rash Course 0811: Past medical records reviewed. The patient was evaluated in room C10, and a complete history and physical examination were performed. 1210: I consulted Dr. Cuevas [facility] Hospitalist. He will reevaluate the patient for hospitalization. Consultations Consultation #1: I consulted Dr. Cuevas [facility] Hospitalist. He will reevaluate the patient for hospitalization. Time: 12:10 Administered Medications Acetaminophen (Tylenol) 650 mg PO Q4H PRN PRN Reason: Pain or Fever Stop: 01/18/19 16:17 Last Admin: 12/19/18 23:52 Dose: 650 mg Documented by: [id number] Albuterol (Duoneb) 3 ml NEB Q4R YOSHI Stop: 01/18/19 15:59 Last Admin: 12/20/18 15:09 Dose: 3 ml Documented by: [id number] Admin: 12/20/18 11:12 Dose: 3 ml Documented by: [id number] Admin: 12/20/18 07:08 Dose: 3 ml Documented by: [id number] Admin: 12/20/18 03:04 Dose: 3 ml Documented by: [id number] Admin: 12/19/18 23:03 Dose: 3 ml Documented by: [id number] Admin: 12/19/18 19:03 Dose: 3 ml Documented by: [id number] Admin: 12/19/18 17:44 Dose: Not Given Documented by: [id number] Aspirin (Ecotrin Ectab) 81 mg PO HS [facility] Stop: 01/18/19 20:59 Last Admin: 12/19/18 20:35 Dose: 81 mg Documented by: [id number] Atorvastatin Cal[facility]) [facility] Stop: 01/19/19 08:59 Last Admin: 12/20/18 07:41 Dose: 80 mg Documented by: [id number] Carvedilol (Coreg) 18.75 mg PO BID [facility] Stop: 01/18/19 20:59 Last Admin: 12/20/18 07:41 Dose: 18.75 mg Documented by: [id number] Admin: 12/19/18 20:34 Dose: 18.75 mg Documented by: [id number] Clonazepam (Klonopin) 0.25 mg PO HS PRN PRN Reason: Sleep Stop: 01/18/19 16:17 Last Admin: 12/19/18 21:55 Dose: 0.25 mg Documented by: [id number] Clopidogrel Bis[facility]ate (Plavix) [facility] Stop: 01/19/19 08:59 Last Admin: 12/20/18 07:40 Dose: 75 mg Documented by: [id number] Ezetimibe (Zetia) 10 mg PO HS [facility] Stop: 01/18/19 20:59 Last Admin: 12/19/18 20:37 Dose: 10 mg Documented by: [id number] Ferrous Sulfate (Feosol) 325 mg PO BID [facility] Stop: 01/18/19 20:59 Last Admin: 12/20/18 07:41 Dose: 325 mg Documented by: [id number] Admin: 12/19/18 20:35 Dose: 325 mg Documented by: [id number] Fluticasone Propionate (Flonase) 2 sprays NA QAM [facility] Stop: 01/19/19 08:59 Last Admin: 12/20/18 07:42 Dose: 2 sprays Documented by: [id number] Furosemide (Lasix) 20 mg PO BID17 [facility] Stop: 01/19/19 16:59 Last Admin: 12/20/18 17:05 Dose: 20 mg Documented by: [id number] Guaifenesin (Mucinex) 1,200 mg PO Q12 [facility] Stop: 01/18/19 20:59 Last Admin: 12/20/18 07:40 Dose: 1,200 mg Documented by: [id number] Admin: 12/19/18 20:36 Dose: 1,200 mg Documented by: [id number] Heparin Sodium (Porcine) (Heparin Sodium (Porcine)) 5,000 units SQ Q12 YOSHI Stop: 01/19/19 08:59 Last Admin: 12/20/18 07:45 Dose: Not Given Documented by: [id number] Levofloxacin/Dextrose (Levaquin/D5w) 750 mg in 150 mls @ 100 mls/hr IV Q24H [facility] Stop: 12/26/18 16:59 Last Admin: 12/20/18 17:06 Dose: 100 mls/hr Documented by: [id number] Infusion: 12/19/18 19:18 Dose: 0 mls/hr Documented by: [id number] Admin: 12/19/18 17:42 Dose: 100 mls/hr Documented by: [id number] Methylprednisolone 40 mg/ (Syringe) 0.64 mls @ 1.5 mls/min IV Q6H [facility] Stop: 01/18/19 16:59 Last Admin: 12/20/18 17:06 Dose: 1.5 mls/min Documented by: [id number] Admin: 12/20/18 11:10 Dose: 1.5 mls/min Documented by: [id number] Admin: 12/20/18 04:32 Dose: 1.5 mls/min Documented by: [id number] Admin: 12/19/18 22:52 Dose: 1.5 mls/min Documented by: [id number] Admin: 12/19/18 17:44 Dose: 1.5 mls/min Documented by: [id number] Lisinopril (Zestril) 5 mg PO QAM [facility] Stop: 01/19/19 08:59 Last Admin: 12/20/18 07:40 Dose: 5 mg Documented by: [id number] Potassium Chloride (Klor-Con M20) 20 meq PO QAM [facility] Stop: 01/19/19 08:59 Last Admin: 12/20/18 07:41 Dose: 20 meq Documented by: [id number] Pramipexole Dihydrochloride (Mirapex) 0.25 mg PO HS [facility] Stop: 01/18/19 20:59 Last Admin: 12/19/18 20:35 Dose: 0.25 mg Documented by: [id number] Fluticasone/Salmeterol (Advair Diskus 500/50) 1 puffs INH BID [facility] Stop: 01/18/19 20:59 Last Admin: 12/20/18 07:40 Dose: 1 puffs Documented by: [id number] Admin: 12/19/18 20:33 Dose: 1 puffs Documented by: [id number] Sertraline HCl (Zoloft) 50 mg PO HS [facility] Stop: 01/18/19 20:59 Last Admin: 12/19/18 20:36 Dose: 50 mg Documented by: [id number] Tiotropium [place] (Spiriva) 1 puffs INH DAILY [facility] Stop: 01/18/19 16:17 Last Admin: 12/20/18 07:41 Dose: 1 puffs Documented by: [id number] Admin: 12/19/18 17:42 Dose: 1 puffs Documented by: [id number] Discontinued Medications Albuterol (Duoneb) 3 ml INH NOW STA Stop: 12/19/18 08:14 Last Admin: 12/19/18 08:22 Dose: 3 ml Documented by: [id number] Albuterol (Duoneb) 3 ml NEB NOW STA Stop: 12/19/18 11:05 Last Admin: 12/19/18 11:11 Dose: 3 ml Documented by: [id number] Furosemide (Lasix) 40 mg PO BID17 [facility] Stop: 01/18/19 16:59 Last Admin: 12/20/18 07:41 Dose: 40 mg Documented by: [id number] Admin: 12/19/18 17:44 Dose: 40 mg Documented by: [id number] Cefepime HCl 1,000 mg/ Syringe 11.3 mls @ 5.5 mls/min IV NOW STA Stop: 12/19/18 11:24 Last Admin: 12/19/18 11:39 Dose: 5.5 mls/min Documented by: [id number] Methylprednisolone (Solumedrol) 125 mg IV NOW STA Stop: 12/19/18 08:14 Last Admin: 12/19/18 08:22 Dose: 125 mg Documented by: [id number] Medical Decision Making Differential Diagnosis Differential diagnosis: Etiologies such as infections, reactive airway disease, pneumonia, pneumothorax, COPD, CHF, cardiac ischemia, pulmonary embolism, musculoskeletal, gastrointestinal, as well as others were entertained. Medical Records Attestation: I reviewed the patient's medical records. Home Medications Current Medication List: was personally reviewed by me Laboratory Data Attestation: I reviewed the patient's lab results. Result diagrams: 12/20/18 05:24 12/20/18 05:24 Lab Results 12/19/18 12/19/18 12/19/18 Range/Units 08:20 08:20 08:20 WBC 6.12 (4.8-10.8) K/uL RBC 3.34 L (4.2-5.4) M/uL Hgb 8.0 L (12.0-16.0) g/dL Hct 26.3 L (37-47) % MCV 78.7 L (80-100) fL MCH 24.0 L (25-34) pg MCHC 30.4 L (32-36) g/dL RDW Std Deviation 67.1 H (36.4-46.3) fL RDW Coeff of Kiana 22.9 H (11.5-14.5) % Plt Count 195 (130-400) K/uL MPV 9.2 (7.4-10.4) fL Neutrophils % (Manual) 89.3 % Lymphocytes % (Manual) 8.0 % Monocytes % (Manual) 2.7 % Neutrophils # (Manual) 5.47 (1.4-6.5) K/uL Total Absolute Neuts 5.47 (1.4-6.5) K/uL Lymphocytes # (Manual) 0.49 L (1.2-3.4) K/uL Total Abs Lymphocytes 0.49 L (1.2-3.4) K/uL Monocytes # (Manual) 0.17 (0.11-0.59) K/uL Hypochromasia Present Poikilocytosis Present Spherocytes 1+ Target Cells 1+ Schistocytes 1+ PT 10.3 (9.0-12.0) Seconds INR 1.0 (0.9-1.1) APTT 24.3 (21.0-31.0) Seconds PTT Ratio 0.9 Sodium 139 (136-145) mmol/L Potassium 4.2 (3.5-5.1) mmol/L Chloride 102 (98-107) mmol/L Carbon Dioxide 33 H (21-32) mmol/L Anion Gap 4.0 (3-11) BUN 41 H (7-18) mg/dl Creatinine 0.87 (0.6-1.2) mg/dl Est Cr Clr Drug Dosing 41.0 ml/min Est GFR ( Amer) 76.1 Est GFR (Non-Af Amer) 65.6 BUN/Creatinine Ratio 46.8 H (10-20) Glucose 140 H (70-99) mg/dl Calcium 8.6 (8.5-10.1) mg/dl Magnesium 2.0 (1.8-2.4) mg/dl Iron (35-150) mcg/dl TIBC (250-450) mcg/dl Transferrin (200-360) mg/dl Transferrin % Sat (15-50) % Ferritin (8-388) ng/ml Total Bilirubin 0.3 (0.2-1) mg/dl AST 40 H (15-37) U/L ALT 50 (12-78) U/L Alkaline Phosphatase 98 (45-117) U/L Troponin I 0.100 H* (0-0.045) ng/ml Total Protein 6.5 (6.4-8.2) gm/dl Albumin 2.9 L (3.4-5.0) gm/dl Globulin 3.6 (2.5-4.0) gm/dl Albumin/Globulin Ratio 0.8 L (0.9-2) Urine Color Urine Appearance (Clear) Urine pH (4.5-7.5) Ur Specific [place] (1.000-1.030) Urine Protein (Negative) Urine Glucose (UA) (Negative) Urine Ketones (Negative) Urine Blood (Negative) Urine Nitrite (Negative) Urine Bilirubin (Negative) Urine Urobilinogen (Negative) Ur Leukocyte Esterase (Negative) Influenza Type A (PCR) (Neg) Influenza Type B (PCR) (Neg) Blood Type Antibody Screen Crossmatch 12/19/18 12/19/18 12/19/18 Range/Units 08:25 08:40 11:13 WBC (4.8-10.8) K/uL RBC (4.2-5.4) M/uL Hgb (12.0-16.0) g/dL Hct (37-47) % MCV (80-100) fL MCH (25-34) pg MCHC (32-36) g/dL RDW Std Deviation (36.4-46.3) fL RDW Coeff of Kiana (11.5-14.5) % Plt Count (130-400) K/uL MPV (7.4-10.4) fL Neutrophils % (Manual) % Lymphocytes % (Manual) % Monocytes % (Manual) % Neutrophils # (Manual) (1.4-6.5) K/uL Total Absolute Neuts (1.4-6.5) K/uL Lymphocytes # (Manual) (1.2-3.4) K/uL Total Abs Lymphocytes (1.2-3.4) K/uL Monocytes # (Manual) (0.11-0.59) K/uL Hypochromasia Poikilocytosis Spherocytes Target Cells Schistocytes PT (9.0-12.0) Seconds INR (0.9-1.1) APTT (21.0-31.0) Seconds PTT Ratio Sodium (136-145) mmol/L Potassium (3.5-5.1) mmol/L Chloride (98-107) mmol/L Carbon Dioxide (21-32) mmol/L Anion Gap (3-11) BUN (7-18) mg/dl Creatinine (0.6-1.2) mg/dl Est Cr Clr Drug Dosing ml/min Est GFR ( Amer) Est GFR (Non-Af Amer) BUN/Creatinine Ratio (10-20) Glucose (70-99) mg/dl Calcium (8.5-10.1) mg/dl Magnesium (1.8-2.4) mg/dl Iron (35-150) mcg/dl TIBC (250-450) mcg/dl Transferrin (200-360) mg/dl Transferrin % Sat (15-50) % Ferritin (8-388) ng/ml Total Bilirubin (0.2-1) mg/dl AST (15-37) U/L ALT (12-78) U/L Alkaline Phosphatase (45-117) U/L Troponin I (0-0.045) ng/ml Total Protein (6.4-8.2) gm/dl Albumin (3.4-5.0) gm/dl Globulin (2.5-4.0) gm/dl Albumin/Globulin Ratio (0.9-2) Urine Color Yellow Urine Appearance Clear (Clear) Urine pH 7.0 (4.5-7.5) Ur Specific [place] 1.012 (1.000-1.030) Urine Protein Negative (Negative) Urine Glucose (UA) Negative (Negative) Urine Ketones Negative (Negative) Urine Blood Negative (Negative) Urine Nitrite Negative (Negative) Urine Bilirubin Negative (Negative) Urine Urobilinogen Negative (Negative) Ur Leukocyte Esterase Negative (Negative) Influenza Type A (PCR) Neg for Influ A (Neg) Influenza Type B (PCR) Neg for Influ B (Neg) Blood Type O Positive Antibody Screen NEGATIVE Crossmatch See Detail 12/20/18 12/20/18 Range/Units 05:24 05:24 WBC 5.93 (4.8-10.8) K/uL RBC 3.05 L (4.2-5.4) M/uL Hgb 7.4 L (12.0-16.0) g/dL Hct 24.0 L (37-47) % MCV 78.7 L (80-100) fL MCH 24.3 L (25-34) pg MCHC 30.8 L (32-36) g/dL RDW Std Deviation 65.6 H (36.4-46.3) fL RDW Coeff of Kiana 22.7 H (11.5-14.5) % Plt Count 188 (130-400) K/uL MPV 8.8 (7.4-10.4) fL Neutrophils % (Manual) % Lymphocytes % (Manual) % Monocytes % (Manual) % Neutrophils # (Manual) (1.4-6.5) K/uL Total Absolute Neuts (1.4-6.5) K/uL Lymphocytes # (Manual) (1.2-3.4) K/uL Total Abs Lymphocytes (1.2-3.4) K/uL Monocytes # (Manual) (0.11-0.59) K/uL Hypochromasia Poikilocytosis Spherocytes Target Cells Schistocytes PT (9.0-12.0) Seconds INR (0.9-1.1) APTT (21.0-31.0) Seconds PTT Ratio Sodium 139 (136-145) mmol/L Potassium 4.5 (3.5-5.1) mmol/L Chloride 103 (98-107) mmol/L Carbon Dioxide 31 (21-32) mmol/L Anion Gap 5.0 (3-11) BUN 65 H D (7-18) mg/dl Creatinine 1.35 H D (0.6-1.2) mg/dl Est Cr Clr Drug Dosing 28.6 ml/min Est GFR ( Amer) 44.7 Est GFR (Non-Af Amer) 38.6 BUN/Creatinine Ratio 48.0 H (10-20) Glucose 163 H (70-99) mg/dl Calcium 8.5 (8.5-10.1) mg/dl Magnesium (1.8-2.4) mg/dl Iron 315 H (35-150) mcg/dl TIBC 348 (250-450) mcg/dl Transferrin 235 (200-360) mg/dl Transferrin % Sat 95 H (15-50) % Ferritin 32.9 (8-388) ng/ml Total Bilirubin (0.2-1) mg/dl AST (15-37) U/L ALT (12-78) U/L Alkaline Phosphatase (45-117) U/L Troponin I (0-0.045) ng/ml Total Protein (6.4-8.2) gm/dl Albumin (3.4-5.0) gm/dl Globulin (2.5-4.0) gm/dl Albumin/Globulin Ratio (0.9-2) Urine Color Urine Appearance (Clear) Urine pH (4.5-7.5) Ur Specific [place] (1.000-1.030) Urine Protein (Negative) Urine Glucose (UA) (Negative) Urine Ketones (Negative) Urine Blood (Negative) Urine Nitrite (Negative) Urine Bilirubin (Negative) Urine Urobilinogen (Negative) Ur Leukocyte Esterase (Negative) Influenza Type A (PCR) (Neg) Influenza Type B (PCR) (Neg) Blood Type Antibody Screen Crossmatch Imaging Data Radiologist's Impression: Radiology results as stated below per my review and the radiologist's interpretation: XR chest 1V portable CLINICAL HISTORY: Dyspnea COMPARISON STUDY: Chest radiograph November 23, 2018. FINDINGS: Left subclavian biventricular pacer/AICD is in place. There are left neck surgical clips. There is no pneumothorax. Cardiomegaly is unchanged. There is no evidence for overt pulmonary edema. Left basilar opacity and left pleural effusion have improved since exam of November 23, 2018. IMPRESSION: 1. Interval improvement in left basilar opacity and a left pleural effusion since exam of November 23, 2018. 2. Cardiomegaly without overt pulmonary edema. Electronically signed by: Bora Schmitt M.D. 12/19/2018 8:40 AM ECG Data Attestation: I personally reviewed and interpreted this ECG as follows: Indication: SOB/dyspnea Rate (beats per minute): 99 Rhythm: other (Atrial sensed, ventricular paced ) Findings: + other (QTc is 574; occasional aberrancy) Blood Pressure Blood Pressure Findings: Low blood pressure Blood Pressure Disposition: further management by hospitalist MDM Narrative This patient was evaluated and appeared to be in no significant distress. Patient did have some increased work of breathing was given DuoNeb treatment x3 in the ED. She was given IV Solu-Medrol. Laboratory work reveals an acute on chronic anemia. Patient's chest x-ray reveals emphysematous changes improvement of a left basilar opacity and left pleural effusion when compared to previous. Patient also has some cardiomegaly. Rectal exam reveals guaiac-negative stool. Respiratory status seemed to improve and she was maintained on her 3 L nasal cannula oxygen. Patient was given cefepime 1 g IV secondary to the COPD exacerbation period. Given the above findings, the patient was discussed with the hospitalist service who will evaluate her for further management. Patient is aware of this plan and agrees. Impression & Plan Anemia, COPD exacerbation Discharge Plan Visit Data *Final* Discharge Date/Time: 12/19/18 16:02 Chief Complaint: Shortness of Breath/Dyspnea ED Provider: Graciela Haji Discharge Problem: Anemia, COPD exacerbation Patient Disposition: Admitted As Inpatient Discharge Instructions Interventions: ED Discharge Assessment Last Done: 12/19/18 16:02 Discharge Problem: Anemia Qualifiers: Anemia type: unspecified type Qualified Code(s): D64.9 - Anemia, unspecified The scribe's documentation has been prepared under my direction and personally reviewed by me in its entirety. I confirm that the note above accurately reflects all work, treatment, procedures, and medical decision making performed by me.
[2018-12-19] MEDS ORDERED: ACETAMINOPHEN 500 MG TAB PO PRN (16:18)
[2018-12-19] MEDS ORDERED: NITROGLYCERIN SL 0.4 MG/TAB TAB SL PRN (16:18)
[2018-12-19] MEDS ORDERED: ALBUTEROL HFA 8 GM INHALER INH PRN (16:18)
[2018-12-19] MEDS ORDERED: SODIUM CHLORIDE 0.65% NA SOLN 45 ML (OCEAN) PRN (16:18)
[2018-12-19] MEDS ORDERED: ALBUTEROL 0.083% NEBU SOLN 3 ML VIAL INH PRN (16:18)
[2018-12-19] MEDS: TIOTROPIUM BROMIDE 5 PUFF/90 MCG INH INH SCH (17:42)
[2018-12-19] MEDS: LEVOFLOXACIN/D5W 750 MG/150 ML BAG IV SCH (17:42)
[2018-12-19] MEDS: FUROSEMIDE 40 MG TAB PO SCH (17:44)
[2018-12-19] MEDS: ALBUT/IPRATROP 3MG/0.5MG NEB 3 ML VIAL NEB SCH ×3 (17:44→23:03)
[2018-12-19] MEDS: methylPREDNISolone 40 MG in SYRINGE 0 ML IV SCH ×2 (17:44→22:52)
[2018-12-19] MEDS: FLUTICASONE/SALMETEROL (ADVAIR) 500/50 INH 14 PUFF INH SCH (20:33)
[2018-12-19] MEDS: CARVEDILOL 6.25 MG TAB PO SCH (20:34)
[2018-12-19] MEDS: PRAMIPEXOLE DIHYDROCHLO 0.25 MG TAB PO SCH (20:35)
[2018-12-19] MEDS: ASPIRIN 81 MG ECTAB PO SCH (20:35)
[2018-12-19] MEDS: FERROUS SULFATE 325 MG TAB PO SCH (20:35)
[2018-12-19] MEDS: guaiFENesin 600 MG TABCR PO SCH (20:36)
[2018-12-19] MEDS: SERTRALINE HCL 50 MG TABLET PO SCH (20:36)
[2018-12-19] MEDS: EZETIMIBE 10 MG TABLET PO SCH (20:37)
[2018-12-19] MEDS: clonazePAM 0.5 MG TAB PO PRN (21:55)
[2018-12-19] MEDS: ACETAMINOPHEN 325 MG TAB PO PRN (23:52)
--- NOTE | 2018-12-20 02:19 | Consultation Report ---
DATE OF CONSULTATION: 12/19/2018 PULMONARY MEDICINE CONSULTATION REASON FOR CONSULTATION: Acute on chronic respiratory failure, chronic obstructive pulmonary disease exacerbation. HISTORY OF PRESENT ILLNESS: This patient is a 73-year-old white female currently in the Emergency Room being admitted onto Dr. Maninder Cuevas's hospitalist service, presented with worsening symptoms of respiratory difficulties. The patient has a history of chronic systolic congestive heart failure, pacemaker/automatic implantable cardioverter defibrillator, chronic respiratory failure, on home O2 at 3 liters due to severe chronic obstructive pulmonary disease and was hospitalized apparently in November just several weeks ago for left lower lobe pneumonia and chronic obstructive pulmonary disease exacerbation. The patient states she never fully recovered from that admission and "has been chronically dyspneic and coughing since discharge". She states she just could not "handle it anymore at home and came to the Emergency Room." She lives with her . She has been taking around the clock nebulizer treatments and has been on 4 liters of oxygen. She denies recent fever and has a fair appetite, but does complain of early satiety. At home, she has Combivent Respimat and Spiriva HandiHaler. The former she uses q.i.d. and the latter p.r.n. She also has a rescue inhaler in the form of Ventolin and has been on Advair Diskus inhaler b.i.d. She has completed her antibiotic and prednisone prescription. She also unfortunately has an ischemic cardiomyopathy with an ejection fraction of only 25% and had myocardial infarction in the year 1999. She has been in and out of atrial fibrillation and it has been difficult controlling her ventricular response. She has severe emphysema and also she has had a history of a carotid endarterectomy and the implantation of the automatic cardioverter/defibrillator within the remote past. 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 She was discharged on 12/01/2018 after the similar presentation. CAT scan apparently showed left lower lobe collapse with small bilateral pleural effusions. Her H and H are 8 and 26.3. She is not aware of any known gastrointestinal bleeding. Denies hematemesis, tarry stools or hematochezia. ABGs show a pH 7.38, pCO2 of 57, pO2 of 25. Calculated CO2 is 33. Her albumin is 2.9. BUN is 41. Creatinine 0.8. Serology was negative for influenza A and B. Mycoplasma IgG was elevated at last admission. For details of past medical history, medications, family and social history, I refer you to current and past record. PHYSICAL EXAMINATION: GENERAL: Reveals an elderly white female, appearing chronically ill, in mild respiratory distress at rest, but not using accessory muscles for respiration. VITAL SIGNS: Blood pressure 140/82, pulse 90 and regular, respiratory rate 30, temperature 36.8 and O2 sat 98% on 3 liters. SKIN: Without lesion. HEENT: Atraumatic and normocephalic. PERRLA. LUNGS: Coarse rhonchi diffusely with decreased breath sounds at left base. CARDIAC: Regular rate and rhythm. I do not appreciate a gallop. ABDOMEN: Soft. Slightly protuberant. EXTREMITIES: Trace pedal edema. No clubbing. Peripheral cyanosis. NEUROLOGIC: Intact. No lateralizing signs. LABORATORY DATA: Electrocardiogram shows atrial sensed ventricular paced rhythm. A chest x-ray shows some slight improvement in the left basilar opacity and pleural effusion since 11/23/2018. No overt signs of pulmonary edema. A video swallow on 11/26/2018 showed no obvious aspiration. I have had a chance to review the chest CT from approximately a month ago. There was a total left lower lobe collapse with an effusion. Cannot discern whether an endobronchial lesion or left lower lobe mass or hilar mass was visible. OVERALL ASSESSMENT: This patient is a 73-year-old female with severe chronic obstructive pulmonary disease, oxygen dependent who presents with acute on chronic respiratory failure. While there maybe some slight improvement in aeration of the left lower lobe, I suspect she still has significant atelectasis most likely from mucoid impaction although an endobronchial lesion cannot be ruled out given her strong smoking history as well. We will need to review current medications, but I see that she has been started on cefepime intravenously, aerosolized bronchodilator and I.V. Solu-Medrol. We will review treatment plan from a month ago and make additional recommendations. Unfortunately, given the end-stage nature of her lung disease, there is not a lot additional modalities we have to offer. I do not think she would tolerate a bronchoscopic intervention to evaluate the left lower lobe bronchus and to clean out any areas of mucoid impaction although if she could tolerate the procedure, this certainly would help her in my opinion. We will prescribe percussion therapy. I may ask that when she is less bronchospastic that she undergo a nebulizer treatment with acetylcysteine 7% normal saline which may help her expectorate some of that phlegm. VITOR
[2018-12-20] MEDS: ALBUT/IPRATROP 3MG/0.5MG NEB 3 ML VIAL NEB SCH ×6 (03:04→22:56)
[2018-12-20] MEDS: methylPREDNISolone 40 MG in SYRINGE 0 ML IV SCH ×4 (04:32→21:06)
[2018-12-20 05:55] LABS: Hemoglobin 7.4 g/dL (12.0-16.0); Mean Corpuscular Hgb Conc 30.8 g/dL (32-36); Mean Corpuscular Volume 78.7 fL (80-100); Mean Platelet Volume 8.8 fL (7.4-10.4); Platelet Count 188 K/uL (130-400); RDW Coefficient of Variation 22.7 % (11.5-14.5); RDW Standard Deviation 65.6 fL (36.4-46.3); Red Blood Count 3.05 M/uL (4.2-5.4); White Blood Count 5.93 K/uL (4.8-10.8)
[2018-12-20 06:19] LABS: Calcium 8.5 mg/dl (8.5-10.1); Creatinine Clr Calc Pharmacy 28.6 ml/min; Est GFR (African American) 44.7; Est GFR (Non-African American) 38.6; Potassium 4.5 mmol/L (3.5-5.1)
[2018-12-20 06:24] LABS: Ferritin 32.9 ng/ml (8-388)
[2018-12-20] MEDS: LISINOPRIL 5 MG TAB PO SCH (07:40)
[2018-12-20] MEDS: FLUTICASONE/SALMETEROL (ADVAIR) 500/50 INH 14 PUFF INH SCH ×2 (07:40→19:51)
[2018-12-20] MEDS: guaiFENesin 600 MG TABCR PO SCH ×2 (07:40→19:51)
[2018-12-20] MEDS: CLOPIDOGREL BISULFATE 75 MG TAB PO SCH (07:40)
[2018-12-20] MEDS: POTASSIUM CHLORIDE 20 MEQ TABCR PO SCH (07:41)
[2018-12-20] MEDS: ATORVASTATIN 40 MG TAB PO SCH (07:41)
[2018-12-20] MEDS: CARVEDILOL 6.25 MG TAB PO SCH ×2 (07:41→19:50)
[2018-12-20] MEDS: TIOTROPIUM BROMIDE 5 PUFF/90 MCG INH INH SCH (07:41)
[2018-12-20] MEDS: FERROUS SULFATE 325 MG TAB PO SCH ×2 (07:41→19:47)
[2018-12-20] MEDS: FUROSEMIDE 40 MG TAB PO SCH (07:41)
[2018-12-20] MEDS: FLUTICASONE PROPIONATE NA SPR 16 GM BTL SCH (07:42)
[2018-12-20] MEDS: HEPARIN SOD 5,000 UNIT/0.5 ML VIAL SQ SCH ×2 (07:45→19:48)
--- NOTE | 2018-12-20 14:30 | Hospitalist Progress Note ---
Date of Service December 20, 2018 Assessment & Plan (1) COPD exacerbation: (2) Acute on chronic respiratory failure with hypoxia and hypercapnia: (3) Ischemic cardiomyopathy: (4) Atrial fibrillation: (5) CAD (coronary artery disease): (6) Chronic systolic (congestive) heart failure: (7) Iron deficiency anemia: (8) Hypertension: (9) Anxiety: (10) Left lower lobe pneumonia: (11) Chronic kidney disease, stage 3a: (12) DVT prophylaxis: 73yo female with chronic systolic CHF, pacemaker/AICD, and chronic respiratory failure on home O2 (3 liters) due to COPD presents with worsening cough and dyspnea. COPD exacerbation: end-stage COPD. Acute on chronic respiratory failure with hypoxia and hypercapnia like secondary to exac of COPD. stable /improving Chest x-ray does not show any focal pneumonia, cont Solu-Medrol , Levaquin 750 mg every 24 hours, nebs, oxygen, inhalers, and supportive care continue current care CAD, chronci CHF, HTN, hx of Ischemic cardiomyopathy, Atrial fibrillation: Continue beta-dane for rate control, not on chronic full-strength anticoagulation. Iron deficiency anemia, ckd, : stable heparin for DVt px PT, OF, CM for Dc plan Physical Exam Vital Signs (Past 24 Hours): Last Vital Signs Temp 37.0 C 12/20/18 11:56 Pulse 85 12/20/18 11:56 Resp 20 12/20/18 11:56 BP 121/57 L 12/20/18 11:56 Pulse Ox 96 12/20/18 11:56 (1) Atrial fibrillation Atrial fibrillation type: chronic Qualified Code(s): I48.2 - Chronic atrial fibrillation (2) CAD (coronary artery disease) Coronary Disease-Associated Artery/Lesion type: [place] artery [place] vs. transplanted heart: [place] heart Associated angina: without angina Qualified Code(s): I25.10 - Atherosclerotic heart disease of [place] coronary artery without angina pectoris (3) Iron deficiency anemia Iron deficiency anemia type: unspecified iron deficiency Qualified Code(s): D50.9 - Iron deficiency anemia, unspecified (4) Hypertension Hypertension type: essential hypertension Qualified Code(s): I10 - Essential (primary) hypertension (5) Left lower lobe pneumonia Pneumonia type: due to unspecified organism Qualified Code(s): J18.1 - Lobar pneumonia, unspecified organism
[2018-12-20] MEDS: FUROSEMIDE 20 MG TAB PO SCH (17:05)
[2018-12-20] MEDS: LEVOFLOXACIN/D5W 750 MG/150 ML BAG IV SCH (17:06)
[2018-12-20] MEDS: SERTRALINE HCL 50 MG TABLET PO SCH (19:47)
[2018-12-20] MEDS: PRAMIPEXOLE DIHYDROCHLO 0.25 MG TAB PO SCH (19:47)
[2018-12-20] MEDS: ASPIRIN 81 MG ECTAB PO SCH (19:50)
[2018-12-20] MEDS: EZETIMIBE 10 MG TABLET PO SCH (19:55)
[2018-12-20] MEDS: ACETAMINOPHEN 325 MG TAB PO PRN (21:07)
[2018-12-21] MEDS: ALBUT/IPRATROP 3MG/0.5MG NEB 3 ML VIAL NEB SCH ×6 (03:00→23:24)
[2018-12-21] MEDS: methylPREDNISolone 40 MG in SYRINGE 0 ML IV SCH ×4 (04:53→23:40)
[2018-12-21 06:19] LABS: Hematocrit (blood only) 22.5 % (37-47); Immature Granulocytes # (auto) 0.03 K/uL (0.00-0.02); Immature Granulocytes % (auto) 0.4 %; Lymphocytes % (auto) 7.9 %; Mean Corpuscular Hgb Conc 31.1 g/dL (32-36); Mean Corpuscular Volume 78.4 fL (80-100); Mean Platelet Volume 8.8 fL (7.4-10.4); Monocytes # (auto) 0.31 K/uL (0.11-0.59); Monocytes % (auto) 4.1 %; Neutrophils # (auto) 6.62 K/uL (1.4-6.5); Neutrophils % (auto) 87.6 %; Nucleated RBC # (auto) 0.05 K/uL (0-0); Nucleated RBC % (auto) 0.7 %; Platelet Count 201 K/uL (130-400); RDW Coefficient of Variation 22.7 % (11.5-14.5); RDW Standard Deviation 65.7 fL (36.4-46.3); Red Blood Count 2.87 M/uL (4.2-5.4); White Blood Count 7.56 K/uL (4.8-10.8)
[2018-12-21 06:51] LABS: BUN Creatinine Ratio 60.7 (10-20); Calcium 8.4 mg/dl (8.5-10.1); Creatinine Clr Calc Pharmacy 33.1 ml/min; Est GFR (Non-African American) 48.4; Magnesium 2.1 mg/dl (1.8-2.4); Potassium 4.1 mmol/L (3.5-5.1)
[2018-12-21 07:19] LABS: Anisocytosis Present; Hypochromasia Present; Ovalocytes 1+; Polychromasia 1+
[2018-12-21] MEDS: guaiFENesin 600 MG TABCR PO SCH ×2 (08:08→20:10)
[2018-12-21] MEDS: LISINOPRIL 5 MG TAB PO SCH (08:08)
[2018-12-21] MEDS: CARVEDILOL 6.25 MG TAB PO SCH ×2 (08:08→20:11)
[2018-12-21] MEDS: CLOPIDOGREL BISULFATE 75 MG TAB PO SCH (08:08)
[2018-12-21] MEDS: ATORVASTATIN 40 MG TAB PO SCH (08:08)
[2018-12-21] MEDS: FLUTICASONE/SALMETEROL (ADVAIR) 500/50 INH 14 PUFF INH SCH ×2 (08:09→20:09)
[2018-12-21] MEDS: FERROUS SULFATE 325 MG TAB PO SCH ×2 (08:09→20:11)
[2018-12-21] MEDS: FLUTICASONE PROPIONATE NA SPR 16 GM BTL SCH (08:09)
[2018-12-21] MEDS: POTASSIUM CHLORIDE 20 MEQ TABCR PO SCH (08:09)
[2018-12-21] MEDS: FUROSEMIDE 20 MG TAB PO SCH ×2 (08:09→16:39)
[2018-12-21] MEDS: TIOTROPIUM BROMIDE 5 PUFF/90 MCG INH INH SCH (08:10)
[2018-12-21] MEDS: HEPARIN SOD 5,000 UNIT/0.5 ML VIAL SQ SCH ×2 (08:13→20:10)
[2018-12-21 09:14] LABS: Folate (Folic Acid) 16.98 ng/ml (>5.38)
--- NOTE | 2018-12-21 11:32 | Progress Note ---
DATE: 12/21/2018 PULMONARY MEDICINE PROGRESS NOTE Chart reviewed, the patient examined. SUBJECTIVE: The patient feels extremely tired. She may be slightly better than when I last saw her 2 days ago. She has had difficulty expectorating phlegm. OBJECTIVE: CURRENT VITAL SIGNS: Blood pressure 105/62, pulse 83 and regular, respiratory rate 18, temperature 36.4, O2 sat 99% on 3 liters. SKIN: Without lesion. HEENT: Atraumatic, normocephalic. PERRLA. EOMI. Conjunctivae pale. Sclerae nonicteric. Fundi poorly visualized. NECK: Neck veins are not distended at 45 degrees. LUNGS: Coarse wheezes remain, perhaps slightly improved. ASSESSMENT AND PLAN: The patient has been started on a vibration therapy, receiving as well aerosolized bronchodilator, IV Solu-Medrol. We will ask nurses how she is doing with additional respiratory therapy with 7% normal saline and would consider the use of acetylcysteine as well. There has been interval improvement in the left basilar opacity and left pleural effusion with cardiomegaly noted. Continue current therapy with aggressive pulmonary toilet. Overall prognosis guarded to poor.
--- NOTE | 2018-12-21 13:08 | Hospitalist Progress Note ---
Date of Service December 21, 2018 Assessment & Plan (1) COPD exacerbation: (2) Acute on chronic respiratory failure with hypoxia and hypercapnia: (3) Ischemic cardiomyopathy: (4) Atrial fibrillation: (5) CAD (coronary artery disease): (6) Chronic systolic (congestive) heart failure: (7) Iron deficiency anemia: (8) Hypertension: (9) Anxiety: (10) Left lower lobe pneumonia: (11) Chronic kidney disease, stage 3a: (12) DVT prophylaxis: 73yo female with chronic systolic CHF, pacemaker/AICD, and chronic respiratory failure on home O2 (3 liters) due to COPD presents with worsening cough and dyspnea. COPD exacerbation with end-stage COPD And home O2 dependent Acute on chronic respiratory failure with hypoxia and hypercapnia upon admission like secondary to exac of COPD. stable /improving Chest x-ray does not show any focal pneumonia, Pulmonary input appreciated : vibration therapy, additional respiratory therapy with 7% normal saline , consider the use of acetylcysteine id need , cont Solu-Medrol , Levaquin 750 mg every 24 hours CAD, chronci CHF, HTN, hx of Ischemic cardiomyopathy, Atrial fibrillation: Continue beta-dane for rate control, not on chronic full-strength anticoagulation. Iron deficiency anemia, ckd, : stable Significant decrease hemoglobin, from 7.4 to 7, etiology unknown, possible delusional will check stool Hemoccult vitamin B12 and folate acid, and follow-up H&H level Encourage out of bed to the chair, PT OT heparin for DVt px Subjective Report doing the same, Still have some cough with white sputum, occasional wheezing No hemoptysis Denies fever and chill Denies chest pain palpitation Denies dysuria urgency and frequency Physical Exam Vital Signs (Past 24 Hours): Last Vital Signs Temp 36.3 C L 12/21/18 11:41 Pulse 82 12/21/18 11:41 Resp 20 12/21/18 11:41 BP 137/61 12/21/18 11:41 Pulse Ox 100 12/21/18 11:41 Physical Exam: General Appearance: WD/WN, no apparent distress, on nasal cannula oxygen, Eyes: normal inspection, PERRL, EOMI, sclerae normal ENT: normal ENT inspection, hearing grossly normal, pharynx normal Neck: supple, no adenopathy, thyroid normal, no JVD, no carotid bruits, trachea midline Respiratory/Chest: Decreased breathing sound, bilateral lungs rales, wheezing, significant better than yesterday, however in the base of the lungs still has wheezing and rales Cardiovascular: regular rate, rhythm, no JVD, no murmur Abdomen: normal bowel sounds, non tender, soft, no organomegaly, Extremities: normal range of motion, non-tender, normal inspection, no pedal edema, no calf tenderness, normal capillary refill, pelvis stable, joint has no limited range of motion, capillary refill is normal, no cyanosis clubbing Neurologic/Psychiatric: cigarette catcher II-XII nml as tested, no motor/sensory deficits, alert, normal mood/affect, oriented x 3 Skin: normal color, warm/dry, no rash Lymphatic: no adenopathy Results & Data Laboratory Results Laboratory Results - last 24 hr 12/21/18 12/21/18 12/21/18 05:56 05:56 07:54 WBC 7.56 RBC 2.87 L Hgb 7.0 L Hct 22.5 L MCV 78.4 L MCH 24.4 L MCHC 31.1 L RDW Std Deviation 65.7 H RDW Coeff of [place] 22.7 H Plt Count 201 MPV 8.8 Immature Gran % (Auto) 0.4 Neut % (Auto) 87.6 Lymph % (Auto) 7.9 [place] % (Auto) 4.1 Eos % (Auto) 0.0 Baso % (Auto) 0.0 Immature Gran # (Auto) 0.03 H Neut # (Auto) 6.62 H Lymph # (Auto) 0.60 L [place] # (Auto) 0.31 Eos # (Auto) 0.00 Baso # (Auto) 0.00 Absolute Nucleated RBC 0.05 H Nucleated RBC % (auto) 0.7 Polychromasia 1+ Hypochromasia Present Anisocytosis Present Ovalocytes 1+ Sodium 138 Potassium 4.1 Chloride 103 Carbon Dioxide 32 Anion Gap 3.0 BUN 68 H Creatinine 1.12 Est Cr Clr Drug Dosing 33.1 Est GFR ( Amer) 56.0 Est GFR (Non-Af Amer) 48.4 BUN/Creatinine Ratio 60.7 H Glucose 150 H Calcium 8.4 L Magnesium 2.1 Vitamin B12 558 Folate 16.98 Microbiology 12/19/18 08:30 Blood Blood Culture - Preliminary No growth to date. 12/19/18 08:20 Blood Blood Culture - Preliminary No growth to date. (1) Atrial fibrillation Atrial fibrillation type: chronic Qualified Code(s): I48.2 - Chronic atrial fibrillation (2) CAD (coronary artery disease) Coronary Disease-Associated Artery/Lesion type: [place] artery [place] vs. transplanted heart: [place] heart Associated angina: without angina Qualified Code(s): I25.10 - Atherosclerotic heart disease of [place] coronary artery without angina pectoris (3) Iron deficiency anemia Iron deficiency anemia type: unspecified iron deficiency Qualified Code(s): D50.9 - Iron deficiency anemia, unspecified (4) Hypertension Hypertension type: essential hypertension Qualified Code(s): I10 - Essential (primary) hypertension (5) Left lower lobe pneumonia Pneumonia type: due to unspecified organism Qualified Code(s): J18.1 - Lobar pneumonia, unspecified organism
[2018-12-21] MEDS: ACETYLCYSTEINE 20% INHAL SOLN ***DISPENSED BY RESP. INH SCH (15:07)
[2018-12-21] MEDS: ACETAMINOPHEN 325 MG TAB PO PRN (16:38)
[2018-12-21] MEDS: LEVOFLOXACIN/D5W 750 MG/150 ML BAG IV SCH (16:39)
[2018-12-21] MEDS: ASPIRIN 81 MG ECTAB PO SCH (20:11)
[2018-12-21] MEDS: EZETIMIBE 10 MG TABLET PO SCH (20:11)
[2018-12-21] MEDS: PRAMIPEXOLE DIHYDROCHLO 0.25 MG TAB PO SCH (20:11)
[2018-12-21] MEDS: SERTRALINE HCL 50 MG TABLET PO SCH (20:12)
[2018-12-21] MEDS: clonazePAM 0.5 MG TAB PO PRN (20:16)
[2018-12-21] MEDS: SODIUM CHLOR 7% 4 ML NEB INH SCH (23:24)
[2018-12-22] MEDS: ALBUT/IPRATROP 3MG/0.5MG NEB 3 ML VIAL NEB SCH ×6 (03:33→22:58)
[2018-12-22] MEDS: methylPREDNISolone 40 MG in SYRINGE 0 ML IV SCH ×2 (05:20→20:09)
[2018-12-22 06:43] LABS: Hematocrit (blood only) 21.9 % (37-47); Hemoglobin 6.8 g/dL (12.0-16.0); Mean Corpuscular Hgb Conc 31.1 g/dL (32-36); Mean Corpuscular Volume 79.6 fL (80-100); Nucleated RBC # (auto) 0.06 K/uL (0-0); Platelet Count 212 K/uL (130-400); RDW Coefficient of Variation 22.9 % (11.5-14.5); RDW Standard Deviation 65.6 fL (36.4-46.3); Red Blood Count 2.75 M/uL (4.2-5.4); White Blood Count 6.28 K/uL (4.8-10.8)
[2018-12-22 07:02] LABS: BUN Creatinine Ratio 54.8 (10-20); Calcium 8.5 mg/dl (8.5-10.1); Creatinine Clr Calc Pharmacy 32.6 ml/min; Est GFR (African American) 55.4; Est GFR (Non-African American) 47.8; Potassium 3.9 mmol/L (3.5-5.1)
[2018-12-22] MEDS: SODIUM CHLOR 7% 4 ML NEB INH SCH ×2 (07:02→19:53)
[2018-12-22] MEDS: ACETYLCYSTEINE 20% INHAL SOLN ***DISPENSED BY RESP. INH SCH (07:02)
[2018-12-22 07:31] LABS: Anisocytosis Present; Immature Granulocytes # (auto) 0.05 K/uL (0.00-0.02); Immature Granulocytes % (auto) 0.8 %; Lymphocytes # (auto) 0.43 K/uL (1.2-3.4); Lymphocytes % (auto) 6.8 %; Monocytes % (auto) 3.2 %; Neutrophils % (auto) 89.2 %; Ovalocytes 1+; Poikilocytosis Present
[2018-12-22] MEDS: FERROUS SULFATE 325 MG TAB PO SCH ×2 (08:12→20:11)
[2018-12-22] MEDS: FLUTICASONE/SALMETEROL (ADVAIR) 500/50 INH 14 PUFF INH SCH ×2 (08:12→20:10)
[2018-12-22] MEDS: FLUTICASONE PROPIONATE NA SPR 16 GM BTL SCH (08:12)
[2018-12-22] MEDS: CARVEDILOL 6.25 MG TAB PO SCH ×2 (08:12→20:10)
[2018-12-22] MEDS: ATORVASTATIN 40 MG TAB PO SCH (08:13)
[2018-12-22] MEDS: POTASSIUM CHLORIDE 20 MEQ TABCR PO SCH (08:13)
[2018-12-22] MEDS: FUROSEMIDE 20 MG TAB PO SCH ×2 (08:13→20:10)
[2018-12-22] MEDS: CLOPIDOGREL BISULFATE 75 MG TAB PO SCH (08:13)
[2018-12-22] MEDS: guaiFENesin 600 MG TABCR PO SCH ×2 (08:13→20:12)
[2018-12-22] MEDS: HEPARIN SOD 5,000 UNIT/0.5 ML VIAL SQ SCH (08:14)
[2018-12-22] MEDS: TIOTROPIUM BROMIDE 5 PUFF/90 MCG INH INH SCH (08:14)
[2018-12-22] MEDS: LISINOPRIL 5 MG TAB PO SCH (08:14)
--- NOTE | 2018-12-22 08:40 | Hospitalist Progress Note ---
Date of Service December 22, 2018 Assessment & Plan (1) Iron deficiency anemia: The patient's baseline hemoglobin is about 9. Previous ferritin level was quite low. Continue iron supplementation. peripheral smear shows spherocytes and target cells along with schistocytes. Hemoglobin dropped to 6.8 we will transfuse 2 units packed red blood cells 12/22 (2) Chronic systolic (congestive) heart failure: The patient's weight has been stable relative to her previous hospital stay. continue beta-dane, low-dose WALTER inhibitor and Lasix. Daily weights with strict I's and O's. AHA diet. Watch for transfusion to impact her chronic systolic heart failure (3) COPD exacerbation: in setting of end-stage COPD. Chest x-ray does not show any focal pneumonia today. Steroid taper. Levaquin 750 mg every 24 hours for bronchitis, nebs, oxygen, inhalers, and supportive care. Pulmonary consult The patient would likely benefit from a palliative care consultation in light of her advanced disease. (4) Acute on chronic respiratory failure with hypoxia and hypercapnia: Chronic respiratory failure is due to end-stage COPD. She was quite dyspneic during the visit. (5) Atrial fibrillation: Continue beta-dane for rate control. She is not on chronic full- strength anticoagulation, now contraindicated due to acute anemia (6) CAD (coronary artery disease): no ischemic symptoms,continue aspirin, beta dane, Zetia, WALTER inhibitor, and Lipitor. (7) Hypertension: Continue home medications (8) Anxiety: sertraline and hs prn clonazepam (9) Chronic kidney disease, stage 3a: Creatinine is stable today. Repeat BMP in a.m. (10) DVT prophylaxis: (11) Ischemic cardiomyopathy: Subjective Patient states she has had some dyspnea on exertion her blood count was falling today she notes no overt bleeding from her bowels she does have chronic anemia as part of her Review of Systems ROS: well nourished patient is chronically thin No double vision blurry vision No problems with speech or swallowing No palpitations, chest pain or pressure No Wheezing continued with dyspnea on exertion No abdominal pain nausea vomiting diarrhea denies melena No burning urine urine frequency or changes in color No focal joint pain or muscle pain No skin rashes or oral lesions No unusual bruising or bleeding No focused back pain or numbness or loss of strength No changes in memory or confusion Physical Exam Vital Signs (Past 24 Hours): Last Vital Signs Temp 36.4 C L 03/18/19 07:48 Pulse 84 12/22/18 07:48 Resp 16 12/22/18 07:48 BP 130/54 L 12/22/18 07:48 Pulse Ox 98 12/22/18 07:48 The patient appeared well nourished but thin Vital signs as documented. Head exam is unremarkable. normocephalic, atraumatic Neck is without jugular venous distension, thyromegaly, or lymphademopathy Lungs are clear poor air movement diminished breath sounds with no wheezes or focal air loss Cardiac exam reveals Rhythm is regular. Systolic ejection murmur first and second heart sounds normal. Abdominal exam reveals normal bowel sounds, no masses, no organomegaly Extremities are nonedematous and both pedal pulses are present Neurologic exam is A&Ox3, no focal deficits, strength is equal bilateral Psychologically seems neither anxious or depressed Skin is warm Dry without bruises or lesions (1) CAD (coronary artery disease) Associated angina: without angina Coronary Disease-Associated Artery/Lesion type: [place] artery [place] vs. transplanted heart: [place] heart Qualified Code(s): I25.10 - Atherosclerotic heart disease of [place] coronary artery without angina pectoris (2) Atrial fibrillation Atrial fibrillation type: chronic Qualified Code(s): I48.2 - Chronic atrial fibrillation (3) Iron deficiency anemia Iron deficiency anemia type: unspecified iron deficiency Qualified Code(s): D50.9 - Iron deficiency anemia, unspecified (4) Hypertension Hypertension type: essential hypertension Qualified Code(s): I10 - Essential (primary) hypertension
[2018-12-22] MEDS: PANTOprazole 40 MG in SYRINGE 0 ML IV SCH ×2 (10:12→20:09)
[2018-12-22] MEDS ORDERED: SODIUM CHLORIDE 0.9% 250 ML IV PRN (12:46)
--- NOTE | 2018-12-22 17:24 | Pulmonology Progress Note ---
Date of Service December 22, 2018 Assessment & Plan (1) CHF (congestive heart failure): Impression: 1. COPD, appears to be stable, gold level 3. 2. History of CHF, extensive cardiac history, AICD in place. 3. Chronic hypercapnic respiratory failure. Home O2 dependent. 4. Anemia, workup is in progress. Plan: 1. If the patient can take orals, start prednisone 50 mg p.o. daily for 3 days then stop it. 2. If the patient become bronchospastic, the prednisone can be restarted and tapered after 5 days. 3. Continue bronchodilators. Oxygen. 4. Agree with blood transfusion. 5. Workup for anemia. Thank you, will follow . Heart failure chronicity: acute on chronic Heart failure type: unspecified Qualified Code(s): I50.9 - Heart failure, unspecified Subjective The patient denies any shortness of breath, she is concerned of her anemia, denies any pain, she is planned for blood transfusion. Physical Exam Vital Signs (Past 24 Hours): Last Vital Signs Temp 36.9 C 12/22/18 16:09 Pulse 72 12/22/18 17:09 Resp 14 12/22/18 17:09 BP 106/70 12/22/18 17:09 Pulse Ox 99 12/22/18 17:09 Physical Exam: Vital signs are stable, S1-S2 regular rate and rhythm, distant breath sounds, no wheezing, abdomen is benign, no edema, appears somewhat pale. Neurologically she is intact. Results & Data Laboratory Results Hematocrit of 21, BUN and creatinine has been stable. Diagnostic Findings Chest x-ray with hyperinflated lungs and COPD. She does have cardiomegaly and pacemaker/AICD.
[2018-12-22] MEDS: LEVOFLOXACIN/D5W 750 MG/150 ML BAG IV SCH (20:09)
[2018-12-22] MEDS: ASPIRIN 81 MG ECTAB PO SCH (20:11)
[2018-12-22] MEDS: EZETIMIBE 10 MG TABLET PO SCH (20:12)
[2018-12-22] MEDS: PRAMIPEXOLE DIHYDROCHLO 0.25 MG TAB PO SCH (20:12)
[2018-12-22] MEDS: SERTRALINE HCL 50 MG TABLET PO SCH (20:12)
[2018-12-23] MEDS: ALBUT/IPRATROP 3MG/0.5MG NEB 3 ML VIAL NEB SCH ×6 (03:42→23:11)
[2018-12-23] MEDS: methylPREDNISolone 40 MG in SYRINGE 0 ML IV SCH ×2 (05:46→18:21)
[2018-12-23 06:51] LABS: Hematocrit (blood only) 31.9 % (37-47); Hemoglobin 10.2 g/dL (12.0-16.0); Nucleated RBC # (auto) 0.07 K/uL (0-0); Nucleated RBC % (auto) 1.1 %; Platelet Count 200 K/uL (130-400); RDW Coefficient of Variation 19.6 % (11.5-14.5); RDW Standard Deviation 56.8 fL (36.4-46.3); Red Blood Count 3.94 M/uL (4.2-5.4); White Blood Count 6.84 K/uL (4.8-10.8)
[2018-12-23] MEDS: SODIUM CHLOR 7% 4 ML NEB INH SCH (07:05)
[2018-12-23] MEDS: ACETYLCYSTEINE 20% INHAL SOLN ***DISPENSED BY RESP. INH SCH (07:05)
[2018-12-23 07:12] LABS: Calcium 8.2 mg/dl (8.5-10.1); Est GFR (African American) 48.1; Est GFR (Non-African American) 41.5; Potassium 3.7 mmol/L (3.5-5.1)
[2018-12-23] MEDS: FUROSEMIDE 20 MG TAB PO SCH ×2 (07:59→16:37)
[2018-12-23] MEDS: POTASSIUM CHLORIDE 20 MEQ TABCR PO SCH (07:59)
[2018-12-23] MEDS: FERROUS SULFATE 325 MG TAB PO SCH ×2 (07:59→19:20)
[2018-12-23] MEDS: FLUTICASONE/SALMETEROL (ADVAIR) 500/50 INH 14 PUFF INH SCH ×2 (07:59→19:19)
[2018-12-23] MEDS: LISINOPRIL 5 MG TAB PO SCH (07:59)
[2018-12-23] MEDS: ATORVASTATIN 40 MG TAB PO SCH (08:01)
[2018-12-23] MEDS: guaiFENesin 600 MG TABCR PO SCH ×2 (08:01→19:21)
[2018-12-23] MEDS: TIOTROPIUM BROMIDE 5 PUFF/90 MCG INH INH SCH (08:01)
[2018-12-23] MEDS: CARVEDILOL 6.25 MG TAB PO SCH ×2 (08:01→19:23)
[2018-12-23] MEDS: PANTOprazole 40 MG in SYRINGE 0 ML IV SCH ×2 (08:02→19:21)
[2018-12-23] MEDS: FLUTICASONE PROPIONATE NA SPR 16 GM BTL SCH (08:02)
--- NOTE | 2018-12-23 08:15 | Hospitalist Progress Note ---
Date of Service December 23, 2018 Assessment & Plan (1) Iron deficiency anemia: The patient's baseline hemoglobin is about 9. Previous ferritin level was quite low. Continue iron supplementation. peripheral smear shows spherocytes and target cells along with schistocytes. Hemoglobin dropped to 6.8 transfused 2 units packed red blood cells 12/22 she had robust rise of her hemoglobin after transfusion still no signs of acute blood loss at this time (2) Chronic systolic (congestive) heart failure: The patient's weight has been stable relative to her previous hospital stay. continue beta-dane, low-dose WALTER inhibitor and Lasix. Not any significant discord with her transfusion at this time she remains on furosemide 20 p.o. twice daily (3) COPD exacerbation: in setting of end-stage COPD. Chest x-ray does not show any focal pneumonia today. Steroid taper. Levaquin 750 mg every 24 hours for bronchitis, nebs, oxygen, inhalers, and supportive care. Patient remains fairly dyspneic despite her transfusion remains on intravenous steroids will change the duo nebs and formoterol inhaler The patient would likely benefit from a palliative care consultation in light of her advanced disease. (4) Acute on chronic respiratory failure with hypoxia and hypercapnia: Chronic respiratory failure is due to end-stage COPD. She was quite dyspneic during the visit. (5) Atrial fibrillation: Continue beta-dane for rate control. She is not on chronic full- strength anticoagulation, now contraindicated due to acute anemia (6) CAD (coronary artery disease): no ischemic symptoms,continue aspirin, beta adne, Zetia, WALTER inhibitor, and Lipitor. (7) Hypertension: Continue home medications (8) Anxiety: sertraline and hs prn clonazepam (9) Chronic kidney disease, stage 3a: Remains stable (10) DVT prophylaxis: heparin for DVt px (11) Ischemic cardiomyopathy: Subjective Patient still is very dyspneic on exertion she feels somewhat better since institution of her transfusion Review of Systems ROS: Thin and dyspneic No double vision blurry vision No problems with speech or swallowing No palpitations, chest pain or pressure Patient is dyspneic and short of breath No abdominal pain nausea vomiting diarrhea changes in appetite or weight No burning urine urine frequency or changes in color No focal joint pain or muscle pain No skin rashes or oral lesions No unusual bruising or bleeding No focused back pain or numbness or loss of strength No changes in memory or confusion Physical Exam Vital Signs (Past 24 Hours): Last Vital Signs Temp 36.8 C 12/23/18 07:34 Pulse 98 H 12/23/18 07:34 Resp 26 H 12/23/18 07:34 BP 142/55 H 12/23/18 07:34 Pulse Ox 93 12/23/18 07:34 The patient appeared thin and chronically ill Vital signs as documented. Head exam is unremarkable. normocephalic, atraumatic Neck is without jugular venous distension, thyromegaly, or lymphademopathy Lungs are with poor air movement but no wheezes Cardiac exam reveals Rhythm is regular. First and second heart sounds normal. Abdominal exam reveals normal bowel sounds, no masses, no organomegaly has had no melena Extremities are nonedematous and both pedal pulses are present Neurologic exam is A&Ox3, no focal deficits, strength is equal bilateral Psychologically seems anxious (1) CAD (coronary artery disease) Associated angina: without angina Coronary Disease-Associated Artery/Lesion type: [place] artery [place] vs. transplanted heart: [place] heart Qualified Code(s): I25.10 - Atherosclerotic heart disease of [place] coronary artery without angina pectoris (2) Atrial fibrillation Atrial fibrillation type: chronic Qualified Code(s): I48.2 - Chronic atrial fibrillation (3) Iron deficiency anemia Iron deficiency anemia type: unspecified iron deficiency Qualified Code(s): D50.9 - Iron deficiency anemia, unspecified (4) Hypertension Hypertension type: essential hypertension Qualified Code(s): I10 - Essential (primary) hypertension
[2018-12-23] MEDS: LEVOFLOXACIN/D5W 750 MG/150 ML BAG IV SCH (16:36)
[2018-12-23] MEDS: ACETAMINOPHEN 325 MG TAB PO PRN (19:18)
[2018-12-23] MEDS: EZETIMIBE 10 MG TABLET PO SCH (19:20)
[2018-12-23] MEDS: ASPIRIN 81 MG ECTAB PO SCH (19:20)
[2018-12-23] MEDS: SERTRALINE HCL 50 MG TABLET PO SCH (19:21)
[2018-12-23] MEDS: PRAMIPEXOLE DIHYDROCHLO 0.25 MG TAB PO SCH (19:21)
[2018-12-23] MEDS: ARFORMOTEROL TART 15MCG/2ML VIAL INH SCH (19:52)
[2018-12-23] MEDS: clonazePAM 0.5 MG TAB PO PRN (20:47)
[2018-12-24] MEDS: ALBUT/IPRATROP 3MG/0.5MG NEB 3 ML VIAL NEB SCH ×6 (03:15→23:07)
[2018-12-24] MEDS: methylPREDNISolone 40 MG in SYRINGE 0 ML IV SCH ×2 (05:13→17:28)
[2018-12-24 06:22] LABS: Hematocrit (blood only) 33.4 % (37-47); Hemoglobin 10.7 g/dL (12.0-16.0); Mean Corpuscular Volume 81.1 fL (80-100); Platelet Count 206 K/uL (130-400); RDW Coefficient of Variation 20.1 % (11.5-14.5); RDW Standard Deviation 57.2 fL (36.4-46.3); Red Blood Count 4.12 M/uL (4.2-5.4); White Blood Count 7.95 K/uL (4.8-10.8)
[2018-12-24 07:06] LABS: BUN Creatinine Ratio 45.3 (10-20); Calcium 8.4 mg/dl (8.5-10.1); Creatinine Clr Calc Pharmacy 31.5 ml/min; Est GFR (African American) 52.1; Est GFR (Non-African American) 44.9; Potassium 4.5 mmol/L (3.5-5.1)
[2018-12-24] MEDS: ARFORMOTEROL TART 15MCG/2ML VIAL INH SCH ×2 (07:24→18:58)
[2018-12-24] MEDS: guaiFENesin 600 MG TABCR PO SCH ×2 (08:16→20:20)
[2018-12-24] MEDS: CARVEDILOL 6.25 MG TAB PO SCH ×2 (08:16→20:18)
[2018-12-24] MEDS: PANTOprazole 40 MG in SYRINGE 0 ML IV SCH ×2 (08:16→20:17)
[2018-12-24] MEDS: FUROSEMIDE 20 MG TAB PO SCH ×2 (08:17→17:27)
[2018-12-24] MEDS: FERROUS SULFATE 325 MG TAB PO SCH ×2 (08:17→20:21)
[2018-12-24] MEDS: FLUTICASONE/SALMETEROL (ADVAIR) 500/50 INH 14 PUFF INH SCH ×2 (08:17→20:21)
[2018-12-24] MEDS: ATORVASTATIN 40 MG TAB PO SCH (08:17)
[2018-12-24] MEDS: LISINOPRIL 5 MG TAB PO SCH (08:17)
[2018-12-24] MEDS: FLUTICASONE PROPIONATE NA SPR 16 GM BTL SCH (08:18)
--- NOTE | 2018-12-24 08:42 | Hospitalist Progress Note ---
Date of Service December 24, 2018 Assessment & Plan (1) Iron deficiency anemia: The patient's baseline hemoglobin is about 9. Previous ferritin level was quite low. Continue iron supplementation. peripheral smear shows spherocytes and target cells along with schistocytes. Hemoglobin dropped to 6.8 transfused 2 units packed red blood cells 12/22 she had robust rise of her hemoglobin after transfusion still no signs of acute blood loss at this time (2) Chronic systolic (congestive) heart failure: The patient's weight has been stable relative to her previous hospital stay. continue beta-dane, low-dose WALTER inhibitor and Lasix. Not any significant discord with her transfusion at this time she remains on furosemide 20 p.o. twice daily (3) COPD exacerbation: in setting of end-stage COPD. Chest x-ray does not show any focal pneumonia today. Steroid taper. Levaquin 750 mg every 24 hours for bronchitis, nebs, oxygen, inhalers, and supportive care. Patient remains fairly dyspneic despite her transfusion remains on intravenous steroids will change the duo nebs and formoterol inhaler The patient would likely benefit from a palliative care consultation in light of her advanced disease. (4) Acute on chronic respiratory failure with hypoxia and hypercapnia: Chronic respiratory failure is due to end-stage COPD. She was quite dyspneic during the visit. (5) Atrial fibrillation: Continue beta-dane for rate control. She is not on chronic full- strength anticoagulation, now contraindicated due to acute anemia (6) CAD (coronary artery disease): no ischemic symptoms,continue aspirin, beta dane, Zetia, WALTER inhibitor, and Lipitor. (7) Hypertension: Continue home medications (8) Anxiety: sertraline and hs prn clonazepam (9) Chronic kidney disease, stage 3a: Remains stable (10) DVT prophylaxis: heparin for DVt px (11) Ischemic cardiomyopathy: Physical Exam Vital Signs (Past 24 Hours): Last Vital Signs Temp 36.5 C 12/24/18 07:47 Pulse 94 H 12/24/18 07:47 Resp 26 H 12/24/18 07:47 BP 142/70 H 12/24/18 07:47 Pulse Ox 100 12/24/18 07:47 (1) CAD (coronary artery disease) Associated angina: without angina Coronary Disease-Associated Artery/Lesion type: [place] artery [place] vs. transplanted heart: [place] heart Qualified Code(s): I25.10 - Atherosclerotic heart disease of [place] coronary artery without angina pectoris (2) Atrial fibrillation Atrial fibrillation type: chronic Qualified Code(s): I48.2 - Chronic atrial fibrillation (3) Iron deficiency anemia Iron deficiency anemia type: unspecified iron deficiency Qualified Code(s): D50.9 - Iron deficiency anemia, unspecified (4) Hypertension Hypertension type: essential hypertension Qualified Code(s): I10 - Essential (primary) hypertension
[2018-12-24] MEDS: POTASSIUM CHLORIDE 20 MEQ TABCR PO SCH (11:03)
[2018-12-24] MEDS: ACETAMINOPHEN 325 MG TAB PO PRN (15:32)
--- NOTE | 2018-12-24 18:05 | Pulmonology Progress Note ---
Date of Service December 24, 2018 Assessment & Plan (1) CHF (congestive heart failure): Impression: 1. COPD, appears to be stable, gold level 3. 2. History of CHF, extensive cardiac history, AICD in place. 3. Chronic hypercapnic respiratory failure. Home O2 dependent. 4. Anemia, workup is in progress. Plan: 1. The patient could not be weaned off the steroids, started on Solu-Medrol 40 mg IV every 12. Continue. 2. N.p.o. after midnight for potential bronchoscopy. 3. IV fluid post midnight. 4. Continue bronchodilators and oxygen. 5. I will evaluate the left lower lobe with a bronchoscopy, mucoid impaction is likely the cause. Thank you, will follow . Heart failure chronicity: acute on chronic Heart failure type: unspecified Qualified Code(s): I50.9 - Heart failure, unspecified Subjective The patient remains with difficulty breathing, coughing up blood and effectively, using the vibrating vest without significant sputum production. Physical Exam Vital Signs (Past 24 Hours): Last Vital Signs Temp 36.5 C 12/24/18 15:29 Pulse 82 12/24/18 15:29 Resp 22 12/24/18 15:29 BP 117/72 12/24/18 15:29 Pulse Ox 96 12/24/18 15:29 Physical Exam: Vital signs are stable, S1-S2 regular rate and rhythm, distant breath sounds mainly at the left base, abdomen is benign, no edema, minimal petechial rash noted in the upper torso. Results & Data Laboratory Results Hematocrit remains stable, BUN and creatinine also are stable, glucose is stable. Diagnostic Findings Reviewed her CAT scan from previous as well as a chest x-ray she continued to have left lower lobe atelectasis. She did have bronchoscopy done in the past with significant amount of secretions noted piling in the left lower lobe.
[2018-12-24] MEDS: EZETIMIBE 10 MG TABLET PO SCH (20:18)
[2018-12-24] MEDS: ASPIRIN 81 MG ECTAB PO SCH (20:19)
[2018-12-24] MEDS: PRAMIPEXOLE DIHYDROCHLO 0.25 MG TAB PO SCH (20:20)
[2018-12-24] MEDS: SERTRALINE HCL 50 MG TABLET PO SCH (20:20)
[2018-12-24] MEDS: clonazePAM 0.5 MG TAB PO PRN (22:25)
[2018-12-25] MEDS ORDERED: D5W AND NSS 1,000 ML IV SCH (01:00)
[2018-12-25] MEDS: ALBUT/IPRATROP 3MG/0.5MG NEB 3 ML VIAL NEB SCH ×6 (03:29→23:15)
[2018-12-25] MEDS: methylPREDNISolone 40 MG in SYRINGE 0 ML IV SCH ×2 (05:43→18:22)
[2018-12-25] MEDS: ARFORMOTEROL TART 15MCG/2ML VIAL INH SCH ×2 (07:11→19:15)
[2018-12-25] MEDS: FLUTICASONE PROPIONATE NA SPR 16 GM BTL SCH (07:46)
[2018-12-25] MEDS: CARVEDILOL 6.25 MG TAB PO SCH ×2 (07:46→20:29)
[2018-12-25] MEDS: FLUTICASONE/SALMETEROL (ADVAIR) 500/50 INH 14 PUFF INH SCH ×2 (07:46→20:23)
[2018-12-25] MEDS: LISINOPRIL 5 MG TAB PO SCH (07:47)
[2018-12-25] MEDS: PANTOprazole 40 MG in SYRINGE 0 ML IV SCH ×2 (07:48→20:31)
[2018-12-25 08:03] LABS: Hematocrit (blood only) 34.8 % (37-47); Hemoglobin 10.9 g/dL (12.0-16.0); Mean Corpuscular Hgb Conc 31.3 g/dL (32-36); Mean Corpuscular Volume 82.7 fL (80-100); Mean Platelet Volume 9.2 fL (7.4-10.4); Nucleated RBC # (auto) 0.02 K/uL (0-0); Nucleated RBC % (auto) 0.3 %; Platelet Count 214 K/uL (130-400); RDW Coefficient of Variation 21.6 % (11.5-14.5); RDW Standard Deviation 59.5 fL (36.4-46.3); Red Blood Count 4.21 M/uL (4.2-5.4); White Blood Count 7.69 K/uL (4.8-10.8)
--- NOTE | 2018-12-25 08:26 | Hospitalist Progress Note ---
Date of Service December 25, 2018 Assessment & Plan (1) Acute on chronic respiratory failure with hypoxia and hypercapnia: Chronic respiratory failure is due to end-stage COPD. Patient is dyspnea we are hoping is from mucoid plugging in Joan will help relieve this and improve her respiratory status we can taper her steroids and eventually progress her to [facility] facility (2) COPD exacerbation: in setting of end-stage COPD. C patient has had failed attempts at steroid taper luminary has resumed intravenous steroids. Levaquin for bronchitis, nebs, Patient has remained fairly dyspneic despite her transfusion pulmonary medicine bronchscopsy 12/25 (3) Iron deficiency anemia: The patient's baseline hemoglobin is about 9. Previous ferritin level was low. Continue iron supplementation. Hemoglobin dropped to 6.8 transfused 2 units packed red blood cells 12/22 she had robust rise of her hemoglobin after transfusion still no signs of acute blood loss at this time (4) Chronic systolic (congestive) heart failure: The patient's weight remains stable continue beta-dane, low-dose WALTER inhibitor and Lasix. furosemide 20 p.o. twice daily (5) Atrial fibrillation: Meds rate controlled beta-blockers. she is not on chronic full-strength anticoagulation, now contraindicated due to acute anemia (6) CAD (coronary artery disease): no ischemic symptoms,continue aspirin, beta dane, Zetia, WALTER inhibitor, and Lipitor. (7) Hypertension: Continue home medications (8) Anxiety: sertraline and hs prn clonazepam (9) Chronic kidney disease, stage 3a: Remains stable (10) DVT prophylaxis: SCDs (11) Ischemic cardiomyopathy: Subjective Remains fairly significantly short of breath he is scheduled for bronchoscopy today Review of Systems ROS: well nourished well developed. No double vision blurry vision No problems with speech or swallowing No palpitations, chest pain or pressure Persistent dyspnea at rest and with exertion cough which is been nonproductive No abdominal pain nausea vomiting diarrhea changes in appetite or weight No burning urine urine frequency or changes in color No focal joint pain or muscle pain No skin rashes or oral lesions No unusual bruising or bleeding No focused back pain or numbness or loss of strength No changes in memory or confusion Physical Exam Vital Signs (Past 24 Hours): Last Vital Signs Temp 36.5 C 12/25/18 07:15 Pulse 96 H 12/25/18 07:15 Resp 32 H 12/25/18 07:15 BP 153/74 H 12/25/18 07:15 Pulse Ox 98 12/25/18 07:15 The patient appeared well nourished and normally developed. Vital signs as documented. Head exam is unremarkable. normocephalic, atraumatic Neck is without jugular venous distension, thyromegaly, or lymphademopathy Lungs are poor air movement throughout no overt wheezes no focal air loss Cardiac exam reveals Rhythm is regular. Systolic ejection murmur first and second heart sounds normal. Abdominal exam reveals normal bowel sounds, no masses, no organomegaly Extremities are nonedematous and both pedal pulses are present Neurologic exam is A&Ox3, no focal deficits, strength is equal bilateral Psychologically seems neither anxious or depressed Skin is warm Dry without bruises or lesions (1) CAD (coronary artery disease) Associated angina: without angina Coronary Disease-Associated Artery/Lesion type: [place] artery [place] vs. transplanted heart: [place] heart Qualified Code(s): I25.10 - Atherosclerotic heart disease of [place] coronary artery without angina pectoris (2) Atrial fibrillation Atrial fibrillation type: chronic Qualified Code(s): I48.2 - Chronic atrial fibrillation (3) Iron deficiency anemia Iron deficiency anemia type: unspecified iron deficiency Qualified Code(s): D50.9 - Iron deficiency anemia, unspecified (4) Hypertension Hypertension type: essential hypertension Qualified Code(s): I10 - Essential (primary) hypertension
[2018-12-25 08:27] LABS: BUN Creatinine Ratio 48.3 (10-20); Calcium 8.3 mg/dl (8.5-10.1); Est GFR (African American) 61.3; Est GFR (Non-African American) 52.9; Potassium 4.3 mmol/L (3.5-5.1)
[2018-12-25] MEDS: POTASSIUM CHLORIDE 20 MEQ TABCR PO SCH (09:14)
[2018-12-25] MEDS: FERROUS SULFATE 325 MG TAB PO SCH ×2 (09:14→20:28)
[2018-12-25] MEDS: guaiFENesin 600 MG TABCR PO SCH ×2 (09:15→20:28)
[2018-12-25] MEDS: FUROSEMIDE 20 MG TAB PO SCH ×2 (09:15→17:10)
[2018-12-25] MEDS: ATORVASTATIN 40 MG TAB PO SCH (09:15)
--- NOTE | 2018-12-25 10:05 | Pre Anesthesia Assessment ---
Date of Service December 25, 2018 Pre Sedation Assessment Vital Signs Temp Pulse Resp BP Pulse Ox 12/25/18 07:15 36.5 C 96 H 32 H 153/74 H 98 12/25/18 07:11 84 26 H 98 12/25/18 03:29 87 18 96 12/25/18 00:00 36.7 C 78 20 146/75 H 97 12/24/18 23:07 80 16 95 12/24/18 18:59 78 20 97 12/24/18 15:29 36.5 C 82 22 117/72 96 12/24/18 15:24 78 20 98 12/24/18 11:33 36.5 C 78 22 136/73 99 12/24/18 11:20 92 H 24 99 Cardiovascular RRR, no murmur, no edema + regular rhythm Respiratory + respiratory effort normal Pre-Sedation Airway Assessment Smoking Status: Former smoker Hx Sleep Apnea: No Hx Difficult Intubation: No Mallampati Class: I Procedure Planning Contraindications for Sedation: none Current Medications Reviewed: Yes Notes The planned sedation has been discussed with the patient. Informed Consent was obtained. I have identified the patient, determined the appropriateness of sedation and have assessed the patient immediately prior to the procedure. All medicine(s) and interventions are by my order.
[2018-12-25] MEDS ORDERED: MIDAZOLAM HCL 5 MG/ML 1 ML VIAL IV STA (10:07)
[2018-12-25] MEDS ORDERED: fentaNYL citrate 100 MCG/2 ML VIAL IV STA (10:07)
--- NOTE | 2018-12-25 11:03 | Post Anesthesia Assessment ---
Date of Service December 25, 2018 Post Sedation Assessment Vital Signs Temp Pulse Pulse Resp BP Pulse Ox 12/25/18 10:31 92 H 17 137/67 99 12/25/18 07:15 36.5 C 96 H 32 H 153/74 H 98 12/25/18 07:11 84 26 H 98 12/25/18 03:29 87 18 96 12/25/18 00:00 36.7 C 78 20 146/75 H 97 12/24/18 23:07 80 16 95 12/24/18 18:59 78 20 97 12/24/18 15:29 36.5 C 82 22 117/72 96 12/24/18 15:24 78 20 98 12/24/18 11:33 36.5 C 78 22 136/73 99 12/24/18 11:20 92 H 24 99 Post Sedation Plan On clinical assessment, the patient appears to have tolerated the sedation without complications. Patient is recovering as anticipated. Patient will continue to be monitored by nursing and may be discharged when sedation discharge criteria are met per below protocol. Upon Completions of procedure and additional 15 minutes continue every 5 minute vital signs and the P.A.R. score; then discharge to a Phase I or Fast Track to Phase II per the following guidelines: * Discharge Patient to appropriate Phase II area if PAR is 8 or greater or return to pre- procedure baseline. The post - procedure orders will be as directed. * If PAR score is less than 8 or not return to pre-procedure baseline then patient will follow Phase I monitoring till PAR is reached for Phase II. The Phase I may be done in procedure room or may call to secure a Phase I area. * If naloxone or flumazenil are used for reversal, hold in Phase I for continued monitoring from when last reversal dose was given for a minimum of 60 minutes or longer pending the nurse and/or physician discretion of patient condition before discharge to Phase II. Please call the Sedation Physician to re-evaluate and complete post-note for discharge to Phase II area. Do NOT discharge from procedure sedation or Phase 1 until post- sedation evaluation note is complete by procedure /sedation MD Sedation Discharge Instructions to be given to the patient at discharge to home.
--- NOTE | 2018-12-25 11:05 | Post Operative Brief Note ---
Immediate Post Op Note v1 Date of Surgery December 25, 2018 Pre & Post Diagnosis Mucoid impaction left lower lobe Procedure Bronchoscopy Surgeon Anakenny Wardeh Supervisor [employer] Nursing staff, respiratory therapy, appreciate all Estimated Blood Loss 0 Findings Consistent with Post-Op Diagnosis Complications none
--- NOTE | 2018-12-25 11:08 | Procedure Note ---
Procedure Note Date of Service December 25, 2018 Note Bronchoscopy was done due to atelectasis of the left lower lobe, the patient has history of atelectasis due to mucoid impaction, underwent a bronchoscopy last month as well for the same reason, the patient with history also COPD, consent obtained for the procedure, risk and benefit explained the details of the patient, the patient agreed to the procedure. The patient had the procedure done in room 1 ICU, patient monitored in the ICU with ICU style of monitoring, conscious sedation was provided using 50 mics of fentanyl and 1 mg of Versed total, lidocaine neb and injectable lidocaine up to 10 mL of 1% used during the procedure. After the patient was sedated, timed out was provided by the nursing staff, appreciated, the bronchoscope passed through the bite-block orally, and the findings as follows: 1. Vocal cords are mobile, no supraglottic lesion. 2. Tracheobronchial tree representing COPD changes on the mucosa, no endobronchial lesion. 3. Chronically distorted takeoff of the left lower lobe with its branches consistent with previous injury from mucoid impaction and COPD. 4. Bronchial washes obtained from the left lower lobe for microbiology. 5. No endobronchial lesion. 6. Moderate amount of secretions also was taken from the left lower lobe and to clear. 7. Friable mucosa with easily hemorrhagic. 8. The bronchoscope was removed entirely, no immediate complication. Patient tolerated the procedure very well. The patient may move to recovery and start oral intake once appropriate by the nursing staff after recovery. Thank you for all involved.
--- NOTE | 2018-12-25 11:11 | Pulmonology Progress Note ---
Date of Service December 25, 2018 Assessment & Plan (1) CHF (congestive heart failure): Impression: 1. COPD, appears to be stable, gold level 3. 2. History of CHF, extensive cardiac history, AICD in place. 3. Chronic hypercapnic respiratory failure. Home O2 dependent. 4. Anemia, workup is in progress. 5. Left lower lobe atelectasis, consistent with mucoid impaction, status post bronchoscopy. Plan: 1. The patient could not be weaned off the steroids, started on Solu-Medrol 40 mg IV every 12. Continue. 2. Resume diet once the patient is able to take oral and fully awake following commands. 3. Discontinue IV fluid once the patient is taking oral intake. 4. Continue bronchodilators and oxygen. 5. I will plan to change systemic steroids to oral prednisone 40 mg twice daily. 6. Post bronchoscopy, the patient may return to the room. Once she is awake and following commands. 7. Follow bronchoscopy specimen. Thank you, will follow . Heart failure chronicity: acute on chronic Heart failure type: unspecified Qualified Code(s): I50.9 - Heart failure, unspecified Subjective The patient continued to have shortness of breath, occasionally she has been having cough with difficulty raising her sputum, she has been using the vibrating vest, she has been n.p.o. for bronchoscopy today. Physical Exam Vital Signs (Past 24 Hours): Last Vital Signs Temp 36.5 C 12/25/18 07:15 Pulse 92 H 12/25/18 10:31 Resp 17 12/25/18 10:31 BP 137/67 12/25/18 10:31 Pulse Ox 99 12/25/18 10:31 Physical Exam: Vital signs are stable, S1-S2 regular rate and rhythm, distant breath sounds bilaterally, no wheezing, abdomen is benign, no edema. She has no dentures, she is MallamPatti class II. Neurologically she is intact. She is competent to make a decision. No rash and no oral thrush. Results & Data Laboratory Results Labs were reviewed. Diagnostic Findings Chest x-ray from previous was reviewed which showed chronic atelectasis of the left lower lobe.
[2018-12-25] MEDS: ONDANSETRON INJ 2 MG/ML 2 ML VIAL IV PRN (18:22)
[2018-12-25] MEDS: SERTRALINE HCL 50 MG TABLET PO SCH (20:27)
[2018-12-25] MEDS: EZETIMIBE 10 MG TABLET PO SCH (20:28)
[2018-12-25] MEDS: PRAMIPEXOLE DIHYDROCHLO 0.25 MG TAB PO SCH (20:28)
[2018-12-25] MEDS: ASPIRIN 81 MG ECTAB PO SCH (20:28)
[2018-12-25] MEDS: clonazePAM 0.5 MG TAB PO PRN (20:43)
[2018-12-26] MEDS: ALBUT/IPRATROP 3MG/0.5MG NEB 3 ML VIAL NEB SCH ×6 (03:42→23:18)
[2018-12-26] MEDS: methylPREDNISolone 40 MG in SYRINGE 0 ML IV SCH ×2 (06:25→17:13)
[2018-12-26 06:31] LABS: Hematocrit (blood only) 34.9 % (37-47); Mean Corpuscular Hgb Conc 31.5 g/dL (32-36); Mean Corpuscular Volume 83.9 fL (80-100); Mean Platelet Volume 8.9 fL (7.4-10.4); Nucleated RBC # (auto) 0.02 K/uL (0-0); Nucleated RBC % (auto) 0.2 %; Platelet Count 197 K/uL (130-400); RDW Coefficient of Variation 21.8 % (11.5-14.5); RDW Standard Deviation 60.8 fL (36.4-46.3); Red Blood Count 4.16 M/uL (4.2-5.4); White Blood Count 9.35 K/uL (4.8-10.8)
[2018-12-26 07:02] LABS: BUN Creatinine Ratio 47.1 (10-20); Calcium 8.5 mg/dl (8.5-10.1); Creatinine Clr Calc Pharmacy 37.9 ml/min; Est GFR (African American) 65.1; Est GFR (Non-African American) 56.1; Potassium 4.2 mmol/L (3.5-5.1)
[2018-12-26] MEDS: ARFORMOTEROL TART 15MCG/2ML VIAL INH SCH ×2 (07:14→19:21)
[2018-12-26] MEDS: FLUTICASONE/SALMETEROL (ADVAIR) 500/50 INH 14 PUFF INH SCH ×2 (08:03→20:15)
[2018-12-26] MEDS: FLUTICASONE PROPIONATE NA SPR 16 GM BTL SCH (08:04)
[2018-12-26] MEDS: CARVEDILOL 6.25 MG TAB PO SCH ×2 (08:04→20:20)
[2018-12-26] MEDS: POTASSIUM CHLORIDE 20 MEQ TABCR PO SCH (08:04)
[2018-12-26] MEDS: FERROUS SULFATE 325 MG TAB PO SCH ×2 (08:05→20:19)
[2018-12-26] MEDS: LISINOPRIL 5 MG TAB PO SCH (08:05)
[2018-12-26] MEDS: FUROSEMIDE 20 MG TAB PO SCH ×2 (08:05→16:04)
[2018-12-26] MEDS: guaiFENesin 600 MG TABCR PO SCH ×2 (08:05→20:19)
[2018-12-26] MEDS: ATORVASTATIN 40 MG TAB PO SCH (08:05)
[2018-12-26] MEDS: PANTOprazole 40 MG in SYRINGE 0 ML IV SCH ×2 (08:06→20:22)
[2018-12-26] MEDS: ACETAMINOPHEN 325 MG TAB PO PRN ×2 (10:22→17:12)
--- NOTE | 2018-12-26 15:25 | Palliative Care Consultation ---
Date of Consultation December 26, 2018 Assessment & Plan (1) Goals of care, counseling/discussion: -73 year old female with advanced COPD on home oxygen therapy, anxiety, chronic CHF, ischemic cardiomyopathy with EF 20%, and others, presented with acute on chronic respiratory failure. She underwent bronchoscopy for mucoid impaction and is receiving treatment for COPD exacerbation. Hopes were that patient would be improved after bronchoscopy, but unfortunately she is about the same with only minimal improvement. Patient is SOB at rest but becomes very dyspneic with activity. She lives at home with her who has his own health problems and has a Pleur-x catheter. Patient is on clonazepam 0.25mg PO at HS at home, but states she feels much better when she takes lorazepam. Patient has referred to the fact that she just wants to be comfortable. Palliative care is consulted to discuss symptom management and goals. -Met with patient in room 403. She is awake, alert and oriented. Sitting on edge of bed in no distress, but is mildly dyspneic even at rest. -patient states she wants to continue living at home with her for as long as possible. She is tired of being in the hospital but also is not ready to say she does not want to come back to hospital if needed. -Patient did verbalize understanding that her COPD is severe and stated, "I know it's not going to get any better than this." -We talked about how she can be most comfortable at home. She again stated that lorazepam works well for her because she gets very anxious when she is SOB, which makes her breathing worse. However, her PCP was reluctant to order it because of side effects. She said the clonazepam does not work as well. -We discussed palliative care as an outpatient, which she would have to trave to an appointment for, vs. home hospice if she is ready for that. Patient is not ready for hospice. She would certainly qualify based on her comorbidities of severe COPD and ischemic cardiomyopathy with EF 20%. -patient stated she would like to think about outpatient palliative and wanted to talk it over with her . She will call to schedule with palliative if she wants. -Could consider increasing her clonazepam to 0.5mg at bed time. Would not order lorazepam until we know whether or not she will have follow up with either palliative or hospice to reorder it for her. -Will follow during hospitalization. (2) Anxiety: (3) Acute on chronic respiratory failure with hypoxia and hypercapnia: (4) Chronic systolic (congestive) heart failure: (5) Ischemic cardiomyopathy: (6) COPD (chronic obstructive pulmonary disease): History of Present Illness Reason for Consultation: Symptom management, goals Requesting Physician: Dr. Shine Attending Physician: Girma Shine MD History of Present Illness This 73 year old female with advanced COPD on home oxygen therapy, anxiety, chronic CHF, ischemic cardiomyopathy with EF 20%, and others, presented with acute on chronic respiratory failure. She underwent bronchoscopy for mucoid impaction and is receiving treatment for COPD exacerbation. Hopes were that patient would be improved after bronchoscopy, but unfortunately she is about the same with only minimal improvement. Patient is SOB at rest but becomes very dy spneic with activity. She lives at home with her who has his own health problems and has a Pleur-x catheter. Patient is on clonazepam 0.25mg PO at HS at home, but states she feels much better when she takes lorazepam. Patient has referred to the fact that she just wants to be comfortable. Palliative care is consulted to discuss symptom management and goals. Thank you kindly for this consult. I will follow. Allergies Allergy/AdvReac Type Severity Reaction Status Date / Time Sulfa (Sulfonamide Allergy Intermediate RASH Verified 12/19/18 09:40 Antibiotics) morphine AdvReac Mild GI SYMPTOMS Verified 12/19/18 09:40 Home Medications Home Medications Medication Instructions Recorded Confirmed Type Combivent Respimat 1 puff INHALATION QID 10/24/18 12/19/18 History Spiriva with HandiHaler 1 - 2 cap INHALATION Q4 PRN 10/24/18 12/19/18 History albuterol sulfate 2.5 mg INHALATION Q4 PRN 10/24/18 12/19/18 History albuterol sulfate [Ventolin HFA] 1 - 2 puff INHALATION Q4 PRN 10/24/18 12/19/18 History aspirin [Aspir-81] 81 mg PO HS 10/24/18 12/19/18 History atorvastatin 80 mg PO HS 10/24/18 11/22/18 History carvedilol 18.75 mg PO BID 10/24/18 12/19/18 History clonazepam 0.25 - 0.5 mg PO HS PRN 10/24/18 12/19/18 History clopidogrel 75 mg PO QAM 10/24/18 12/19/18 History ezetimibe 10 mg PO HS 10/24/18 12/19/18 History fluticasone propion-salmeterol 1 inh INHALATION BID 10/24/18 12/19/18 History [Advair Diskus] fluticasone propionate 2 spray INTRANASAL QAM 10/24/18 12/19/18 History furosemide [Lasix] 40 mg PO BID 10/24/18 12/19/18 History guaifenesin [Mucinex] 1,200 mg PO Q12H 10/24/18 12/19/18 History lisinopril 5 mg PO QAM 10/24/18 12/19/18 History potassium chloride 20 meq PO QAM 10/24/18 12/19/18 History pramipexole 0.25 mg PO HS 10/24/18 12/19/18 History sertraline 50 mg PO HS 10/24/18 12/19/18 History sodium chloride [[place] Nasal] 1 spray INTRANASAL DIRECTED PRN 10/24/18 12/19/18 History ondansetron HCl [Zofran] 4 mg PO Q6H PRN #10 tab 10/29/18 12/19/18 Rx acetaminophen [Tylenol Extra 500 mg PO Q6H PRN 12/19/18 12/19/18 History Strength] Patient History Medical History CAD (coronary artery disease) s/p GA in 1999 Atrial fibrillation Ischemic cardiomyopathy EF 25-30% Dyslipidemia Hypertension COPD (chronic obstructive pulmonary disease) (Acute) CHF (congestive heart failure) (Chronic) Pulmonary congestion Non compliance w medication regimen Emphysema of lung Syncope Acute and chronic respiratory failure with hypercapnia Acute and chronic respiratory failure with hypoxia Ambulatory dysfunction (Acute) GIB (gastrointestinal bleeding) Reflux esophagitis SAH (subarachnoid hemorrhage) Surgical History S/P carotid endarterectomy S/P carpal tunnel release S/P hysterectomy S/P implantation of automatic cardioverter/defibrillator (AICD) Social History Communication Ability: Effective Beliefs That Will Affect Care: None marital status: Current Living Situation: Spouse Current Living Situation Comment: lives in [place]; has 3 children current occupational status: retired Other Information That Helps Us Care for You: 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[employer], 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 [employer] (did [employer] work) Feels Safe at Home: Yes Safety Concerns: Feels Safe At This Time Smoking Status: Former smoker Hx Alcohol Use: No Hx Substance Use: No Review of Systems Constitutional: no weakness Ear, Nose, Mouth, Throat: no dysphagia Respiratory: + cough, + dyspnea and + dyspnea on exertion Cardiovascular: no chest pain and no edema Gastrointestinal: no abdominal pain and no nausea Neurologic: no confusion Psychiatric: + anxiety; no depression Physical Exam Vital Signs (Past 24 Hours): Last Vital Signs Temp 36.2 C L 12/26/18 07:17 Pulse 84 12/26/18 15:16 Resp 20 12/26/18 15:16 BP 115/65 12/26/18 07:17 Pulse Ox 92 12/26/18 15:16 Constitutional: + thin; no acute distress Eyes: PERRL ENMT: external ear and nose normal, oropharynx normal Neck: normal visual inspection Respiratory: normal respiratory effort and + labored breathing (mildly at rest) Auscultation: + diminished lung sounds Cardiovascular: RRR, no murmur, no edema Gastrointestinal (Abdomen): normal bowel sounds, soft, nontender, no hepatosplenomegaly Skin: no rashes, warm and dry Neurologic: awake; not confused Psychiatric: A+Ox3, euthymic affect Time Spent Midlevel 30 minutes with >50% of time spent at bedside with patient discussing symptom management and GOC.
--- NOTE | 2018-12-26 15:44 | Hospitalist Progress Note ---
Date of Service December 26, 2018 Assessment & Plan (1) Acute on chronic respiratory failure with hypoxia and hypercapnia: Chronic respiratory failure is due to end-stage COPD. We have been unable to taper her steroids and bronchoscopy did not have significant improvement in her dyspnea. She is agreeable to talk to palliative care eventual goal is to return to home (2) COPD exacerbation: in setting of end-stage COPD. This patient has had failed attempts at steroid taper pulmonary has resumed intravenous steroids. Levaquin for bronchitis, nebs, Patient has remained fairly dyspneic despite her transfusion pulmonary medicine bronchscopsy 12/25 you could plugging removed without significant clinical improvement (3) Iron deficiency anemia: The patient's baseline hemoglobin is about 9. Her hemoglobin has remained stable during her hospital stay after transfusionon 12/22 Previous ferritin level was low. Continue iron supplementation. still no signs of acute blood loss at this time (4) Chronic systolic (congestive) heart failure: The patient's weight remains stable continue beta-dane, low-dose WALTER inhibitor and Lasix. furosemide 20 p.o. twice daily (5) Atrial fibrillation: Remains rate controlled beta-blockers. she is not on chronic full- strength anticoagulation, now contraindicated due to acute anemia (6) CAD (coronary artery disease): Continues without ischemic symptoms,continue aspirin, beta dane, Zetia, WALTER inhibitor, and Lipitor. (7) Hypertension: Has been controlled on her usual home regimen (8) Anxiety: Ascites her big issue she uses Lorazepam works a lot better than clonazepam she remains on sertraline she is agreeable to talk to palliative care to now change her treatment course to words targeted symptom control versus disease management (9) Chronic kidney disease, stage 3a: He is to remain stable (10) DVT prophylaxis: SCDs (11) Ischemic cardiomyopathy: Subjective Patient states she does not feel much better even after bronchoscopy. The patient states that the only thing makes her feel better is Ativan by her primary care doctor is been resistant to scheduling her Ativan use at home. I discussed with the patient that perhaps palliative care would be a good option for her as he can prescribe her Ativan and deal with her symptoms treatment as it appears that her COPD is near nearing end-stage. She is agreeable to talk to palliative care. I did place a consult on 12/26 Review of Systems ROS: Thin dyspneic No double vision blurry vision No problems with speech or swallowing No palpitations, chest pain or pressure Persistent dyspnea no wheezing nonproductive cough No abdominal pain nausea vomiting diarrhea changes in appetite or weight No burning urine urine frequency or changes in color No focal joint pain or muscle pain No skin rashes or oral lesions No unusual bruising or bleeding No focused back pain or numbness or loss of strength No changes in memory or confusion Physical Exam Vital Signs (Past 24 Hours): Last Vital Signs Temp 36.3 C L 12/26/18 15:10 Pulse 84 12/26/18 15:16 20 12/26/18 15:16 BP 102/64 12/26/18 15:10 Pulse Ox 92 12/26/18 15:16 The patient appeared thin and dyspneic Vital signs as documented. Head exam is unremarkable. normocephalic, atraumatic Neck is with normal jugular venous distension, thyromegaly, or lymphademopathy Lungs are poor air movement in all lobes worse at the base Cardiac exam reveals Rhythm is regular. Systolic ejection murmur is heard first and second heart sounds normal. Abdominal exam reveals normal bowel sounds, no masses, no organomegaly Extremities are nonedematous and both pedal pulses are present Neurologic exam is A&Ox3, no focal deficits, strength is equal bilateral Psychologically seems neither anxious or depressed Skin is warm Dry without bruises or lesions (1) Iron deficiency anemia Iron deficiency anemia type: unspecified iron deficiency Qualified Code(s): D50.9 - Iron deficiency anemia, unspecified (2) Atrial fibrillation Atrial fibrillation type: chronic Qualified Code(s): I48.2 - Chronic atrial fibrillation (3) CAD (coronary artery disease) Coronary Disease-Associated Artery/Lesion type: [place] artery [place] vs. transplanted heart: [place] heart Associated angina: without angina Qualified Code(s): I25.10 - Atherosclerotic heart disease of [place] coronary artery without angina pectoris (4) Hypertension Hypertension type: essential hypertension Qualified Code(s): I10 - Essential (primary) hypertension
[2018-12-26] MEDS: SERTRALINE HCL 50 MG TABLET PO SCH (20:18)
[2018-12-26] MEDS: EZETIMIBE 10 MG TABLET PO SCH (20:18)
[2018-12-26] MEDS: ASPIRIN 81 MG ECTAB PO SCH (20:19)
[2018-12-26] MEDS: PRAMIPEXOLE DIHYDROCHLO 0.25 MG TAB PO SCH (20:19)
[2018-12-26] MEDS: clonazePAM 0.5 MG TAB PO PRN (20:26)
[2018-12-27] MEDS: ALBUT/IPRATROP 3MG/0.5MG NEB 3 ML VIAL NEB SCH ×6 (02:51→23:00)
[2018-12-27] MEDS: methylPREDNISolone 40 MG in SYRINGE 0 ML IV SCH (06:06)
[2018-12-27] MEDS: ARFORMOTEROL TART 15MCG/2ML VIAL INH SCH ×2 (06:58→19:01)
--- NOTE | 2018-12-27 08:24 | Hospitalist Progress Note ---
Date of Service December 27, 2018 Assessment & Plan (1) Acute on chronic respiratory failure with hypoxia and hypercapnia: Chronic respiratory failure is due to end-stage COPD. We have been unable to taper her steroids and bronchoscopy did not have significant improvement in her dyspnea. She spoken to palliative care and is not ready for hospice at this time eventual goal is to return to home (2) COPD exacerbation: in setting of end-stage COPD. attempts to taper steroids. Levaquin for bronchitis, nebs, Patient has remained fairly dyspneic despite her transfusion pulmonary medicine bronchscopsy 12/25 you could plugging removed (3) Iron deficiency anemia: The patient's baseline hemoglobin is about 9. Her hemoglobin has remained stable during her hospital stay after transfusionon 12/22 Previous ferritin level was low. Continue iron supplementation. still no signs of acute blood loss at this time (4) Chronic systolic (congestive) heart failure: The patient's weight remains stable continue beta-dane, low-dose WALTER inhibitor and Lasix. furosemide 20 p.o. twice daily (5) Atrial fibrillation: Remains rate controlled beta-blockers. she is not on chronic full- strength anticoagulation, now contraindicated due to acute anemia (6) CAD (coronary artery disease): Continues without ischemic symptoms,continue aspirin, beta dane, Zetia, WALTER inhibitor, and Lipitor. (7) Hypertension: Has been controlled on her usual home regimen (8) Anxiety: Ascites her big issue she uses Lorazepam works a lot better than clonazepam she remains on sertraline she is agreeable to talk to palliative care to now change her treatment course to words targeted symptom control versus disease management (9) Chronic kidney disease, stage 3a: He is to remain stable (10) DVT prophylaxis: SCDs (11) Ischemic cardiomyopathy: Subjective Patient is slightly tearful today she did discuss with palliative care yesterday she continues to want to go home she is not ready for palliative care at this point time but she does wish to be on lorazepam we discussed the fact that if she sees Dr. Wesley in the office it might be continue discussion to provide refills of her Lorazepam to helps with her anxiety which improves her chronic respiratory failure symptoms Review of Systems ROS: Patient is thin tremulous chronically short of breath No double vision blurry vision No problems with speech or swallowing No palpitations, chest pain or pressure Significantly dyspnea even at rest No abdominal pain nausea vomiting diarrhea changes in appetite or weight No burning urine urine frequency or changes in color No focal joint pain or muscle pain No skin rashes or oral lesions No unusual bruising or bleeding No focused back pain or numbness or loss of strength No changes in memory or confusion Physical Exam Vital Signs (Past 24 Hours): Last Vital Signs Temp 36.6 C 12/27/18 07:49 Pulse 84 12/27/18 07:49 Resp 32 H 12/27/18 07:49 BP 133/77 12/27/18 07:49 Pulse Ox 99 12/27/18 07:49 The patient appeared well nourished and normally developed. Vital signs as documented. Head exam is unremarkable. normocephalic, atraumatic Neck is without jugular venous distension, thyromegaly, or lymphademopathy Lungs are finished breath sounds poor air movement throughout Cardiac exam reveals Rhythm is regular. Stock ejection murmur first and second heart sounds normal. Abdominal exam reveals normal bowel sounds, no masses, no organomegaly Extremities are nonedematous and both pedal pulses are present Neurologic exam is A&Ox3, no focal deficits, strength is equal bilateral Psychologically seems both anxious and depressed Skin is warm Dry without bruises or lesions (1) CAD (coronary artery disease) Associated angina: without angina Coronary Disease-Associated Artery/Lesion type: [place] artery [place] vs. transplanted heart: [place] heart Qualified Code(s): I25.10 - Atherosclerotic heart disease of [place] coronary artery without angina pectoris (2) Atrial fibrillation Atrial fibrillation type: chronic Qualified Code(s): I48.2 - Chronic atrial fibrillation (3) Iron deficiency anemia Iron deficiency anemia type: unspecified iron deficiency Qualified Code(s): D50.9 - Iron deficiency anemia, unspecified (4) Hypertension Hypertension type: essential hypertension Qualified Code(s): I10 - Essential (primary) hypertension
[2018-12-27] MEDS: POTASSIUM CHLORIDE 20 MEQ TABCR PO SCH (08:37)
[2018-12-27] MEDS: ATORVASTATIN 40 MG TAB PO SCH (08:37)
[2018-12-27] MEDS: FLUTICASONE PROPIONATE NA SPR 16 GM BTL SCH (08:37)
[2018-12-27] MEDS: FLUTICASONE/SALMETEROL (ADVAIR) 500/50 INH 14 PUFF INH SCH ×2 (08:37→21:28)
[2018-12-27] MEDS: FERROUS SULFATE 325 MG TAB PO SCH ×2 (08:38→21:30)
[2018-12-27] MEDS: PANTOprazole 40 MG in SYRINGE 0 ML IV SCH ×2 (08:38→21:31)
[2018-12-27] MEDS: ACETAMINOPHEN 325 MG TAB PO PRN (08:38)
[2018-12-27] MEDS: FUROSEMIDE 20 MG TAB PO SCH ×2 (08:38→17:07)
[2018-12-27] MEDS: guaiFENesin 600 MG TABCR PO SCH ×2 (08:38→21:27)
[2018-12-27] MEDS: CARVEDILOL 6.25 MG TAB PO SCH ×2 (08:38→21:28)
[2018-12-27] MEDS: LISINOPRIL 5 MG TAB PO SCH (08:38)
[2018-12-27] MEDS: clonazePAM 0.5 MG TAB PO PRN (21:26)
[2018-12-27] MEDS: ASPIRIN 81 MG ECTAB PO SCH (21:29)
[2018-12-27] MEDS: SERTRALINE HCL 50 MG TABLET PO SCH (21:29)
[2018-12-27] MEDS: PRAMIPEXOLE DIHYDROCHLO 0.25 MG TAB PO SCH (21:30)
[2018-12-27] MEDS: EZETIMIBE 10 MG TABLET PO SCH (21:30)
[2018-12-28] MEDS: ACETAMINOPHEN 325 MG TAB PO PRN (02:14)
[2018-12-28] MEDS: ALBUT/IPRATROP 3MG/0.5MG NEB 3 ML VIAL NEB SCH ×6 (03:12→22:51)
[2018-12-28] MEDS: ARFORMOTEROL TART 15MCG/2ML VIAL INH SCH ×2 (07:05→19:09)
[2018-12-28] MEDS: ONDANSETRON INJ 2 MG/ML 2 ML VIAL IV PRN (07:32)
[2018-12-28] MEDS: guaiFENesin 600 MG TABCR PO SCH ×2 (08:10→20:58)
[2018-12-28] MEDS: FLUTICASONE/SALMETEROL (ADVAIR) 500/50 INH 14 PUFF INH SCH ×2 (08:10→20:56)
[2018-12-28] MEDS: CARVEDILOL 6.25 MG TAB PO SCH ×2 (08:11→20:58)
[2018-12-28] MEDS: LISINOPRIL 5 MG TAB PO SCH (08:11)
[2018-12-28] MEDS: predniSONE 50 MG TAB PO SCH (08:11)
[2018-12-28] MEDS: FLUTICASONE PROPIONATE NA SPR 16 GM BTL SCH (08:11)
[2018-12-28] MEDS: ATORVASTATIN 40 MG TAB PO SCH (08:11)
[2018-12-28] MEDS: POTASSIUM CHLORIDE 20 MEQ TABCR PO SCH (08:12)
[2018-12-28] MEDS: FERROUS SULFATE 325 MG TAB PO SCH ×2 (08:12→20:59)
[2018-12-28] MEDS: FUROSEMIDE 20 MG TAB PO SCH ×2 (08:12→16:27)
[2018-12-28] MEDS: PANTOprazole 40 MG in SYRINGE 0 ML IV SCH (08:12)
--- NOTE | 2018-12-28 14:29 | Hospitalist Progress Note ---
Date of Service December 28, 2018 Assessment & Plan (1) Acute on chronic respiratory failure with hypoxia and hypercapnia: Chronic respiratory failure is due to end-stage COPD. 12/25 bronchoscopy did not have significant improvement in her dyspnea. She spoken to palliative care and is not ready for hospice at this time eventual goal is to return to home, to this end we have read attempted tapering oral steroids with a long slow taper (2) COPD exacerbation: in setting of end-stage COPD. attempts to taper steroids. Levaquin for bronchitis, nebs, Patient has remained fairly dyspneic despite her transfusion and bronchoscopy with removal of mucous mucoid secretions (3) Iron deficiency anemia: The patient's baseline hemoglobin is about 9. Her hemoglobin has remained stable during her hospital stay after transfusion 12/22 Previous ferritin level was low. Continue iron supplementation. still no signs of acute blood loss at this time however epigastric pain brings concern for gastritis or peptic ulcer disease will evaluate the patient with a repeat blood count on 12/29 (4) Chronic systolic (congestive) heart failure: The patient's weight remains stable clinically she has no signs of heart failure continue beta-dane, low-dose WALTER inhibitor and Lasix. furosemide 20 p.o. twice daily (5) Atrial fibrillation: Continues to remain rate controlled beta-blockers. she is not on chronic full-strength anticoagulation, now contraindicated due to acute anemia (6) CAD (coronary artery disease): Maintain on aspirin, beta dane, Zetia, WALTER inhibitor, and Lipitor. (7) Hypertension: Has been controlled on her usual home regimen (8) Anxiety: Ascites her big issue she uses Lorazepam works a lot better than clonazepam she remains on sertraline is not frustrated in terms of palliative care at this time however we will discharge her with a dose of lorazepam in hopes her outpatient physician he continues continues to medication refers her to Dr. Wesley (9) Abdominal pain: Patient's abdominal pain is epigastric. Patient is on steroids. She will though she is on Protonix we will institute some Carafate therapy watch her blood counts and check a CMP to look for LFT dysfunction on 12/29 (10) Chronic kidney disease, stage 3a: He is to remain stable (11) DVT prophylaxis: SCDs (12) Ischemic cardiomyopathy: Subjective Patient is her baseline shortness of breath and coughing no she is complaining of some abdominal pain which seems more epigastric in nature with concern for steroid-induced gastritis or peptic ulcer disease. The patient had black stools but does take iron never had an ulcer to her knowledge nor she had any gallbladder disease previously Review of Systems ROS: Thin and chronically ill No double vision blurry vision No problems with speech or swallowing No palpitations, chest pain or pressure Baseline significant respiratory distress Centralized abdominal pain without nausea vomiting diarrhea No burning urine urine frequency or changes in color No focal joint pain or muscle pain No skin rashes or oral lesions No unusual bruising or bleeding No focused back pain or numbness or loss of strength No changes in memory or confusion Physical Exam Vital Signs (Past 24 Hours): Last Vital Signs Temp 36.7 C 12/28/18 07:24 Pulse 73 12/28/18 10:56 Resp 18 12/28/18 10:56 BP 139/68 12/28/18 07:24 Pulse Ox 94 12/28/18 10:56 The patient appeared thin and chronically ill Vital signs as documented. Head exam is unremarkable. normocephalic, atraumatic Neck is witH minimal Jugular venous distension, thyromegaly, or lymphademopathy Lungs are poor air movement in all lung english no wheezes no focal air loss Cardiac exam reveals Rhythm is regular. Systolic ejection murmur first and second heart sounds normal. Abdominal exam reveals epigastric abdominal pain worse to palpation no right upper quadrant pain no guarding no acute abdomen, normal bowel sounds, no masses, no organomegaly Extremities are nonedematous and both pedal pulses are present Neurologic exam is A&Ox3, no focal deficits, strength is equal bilateral Psychologically seems anxious about going home Skin is warm Dry without bruises or lesions (1) Iron deficiency anemia Iron deficiency anemia type: unspecified iron deficiency Qualified Code(s): D50.9 - Iron deficiency anemia, unspecified (2) Atrial fibrillation Atrial fibrillation type: chronic Qualified Code(s): I48.2 - Chronic atrial fibrillation (3) CAD (coronary artery disease) Coronary Disease-Associated Artery/Lesion type: [place] artery [place] vs. transplanted heart: [place] heart Associated angina: without angina Qualified Code(s): I25.10 - Atherosclerotic heart disease of [place] coronary artery without angina pectoris (4) Hypertension Hypertension type: essential hypertension Qualified Code(s): I10 - Essential (primary) hypertension
[2018-12-28] MEDS: SUCRALFATE 1 GM/10 ML UDC PO SCH ×3 (14:46→21:00)
[2018-12-28] MEDS: clonazePAM 0.5 MG TAB PO PRN (20:55)
[2018-12-28] MEDS: PANTOprazole 40 MG TAB PO SCH (20:57)
[2018-12-28] MEDS: PRAMIPEXOLE DIHYDROCHLO 0.25 MG TAB PO SCH (20:57)
[2018-12-28] MEDS: ASPIRIN 81 MG ECTAB PO SCH (20:57)
[2018-12-28] MEDS: EZETIMIBE 10 MG TABLET PO SCH (20:58)
[2018-12-28] MEDS: SERTRALINE HCL 50 MG TABLET PO SCH (20:59)
[2018-12-29] MEDS: ALBUT/IPRATROP 3MG/0.5MG NEB 3 ML VIAL NEB SCH ×3 (03:16→11:59)
[2018-12-29 06:57] LABS: Albumin Level 2.5 gm/dl (3.4-5.0); BUN Creatinine Ratio 49.5 (10-20); Calcium 8.1 mg/dl (8.5-10.1); Creatinine Clr Calc Pharmacy 49.3 ml/min; Est GFR (African American) 89.6; Est GFR (Non-African American) 77.3; Potassium 4.2 mmol/L (3.5-5.1)
[2018-12-29 07:00] LABS: Albumin Globulin Ratio 0.9 (0.9-2); Bilirubin,Total 0.5 mg/dl (0.2-1); Globulin 2.9 gm/dl (2.5-4.0); Total Protein 5.4 gm/dl (6.4-8.2)
[2018-12-29] MEDS: ARFORMOTEROL TART 15MCG/2ML VIAL INH SCH (07:06)
[2018-12-29 07:10] VITALS: TEMP 97.5; O2SAT 99
[2018-12-29] MEDS: SUCRALFATE 1 GM/10 ML UDC PO SCH (08:15)
[2018-12-29] MEDS: PANTOprazole 40 MG TAB PO SCH (08:16)
[2018-12-29] MEDS: FLUTICASONE PROPIONATE NA SPR 16 GM BTL SCH (08:16)
[2018-12-29] MEDS: FUROSEMIDE 20 MG TAB PO SCH (08:16)
[2018-12-29] MEDS: LISINOPRIL 5 MG TAB PO SCH (08:17)
[2018-12-29] MEDS: predniSONE 50 MG TAB PO SCH (08:17)
[2018-12-29] MEDS: POTASSIUM CHLORIDE 20 MEQ TABCR PO SCH (08:17)
[2018-12-29] MEDS: guaiFENesin 600 MG TABCR PO SCH (08:18)
[2018-12-29] MEDS: ATORVASTATIN 40 MG TAB PO SCH (08:18)
[2018-12-29] MEDS: CARVEDILOL 6.25 MG TAB PO SCH (08:19)
[2018-12-29] MEDS: FERROUS SULFATE 325 MG TAB PO SCH (08:19)
[2018-12-29 08:46] VITALS: BP 107/63; PULSE 80
[2018-12-29] MEDS: FLUTICASONE/SALMETEROL (ADVAIR) 500/50 INH 14 PUFF INH SCH (09:15)
--- NOTE | 2018-12-29 18:04 | Discharge Summary ---
Date of Service December 29, 2018 Admission HPI Per Admitting Provider 73yo female with chronic systolic CHF, pacemaker/AICD, and chronic respiratory failure on home O2 (3 liters) due to COPD presents with worsening cough and dyspnea. She was hospitalized in November for LLL pneumonia and COPD flare. She feels like she never fully recovered from that admission. Over the last week she has had crescendoing dyspnea and cough. About 3am over the last few nights she had woken up with severe dyspnea. She treats the PND with nebulizer treatments. The neb treatments have been only partially effective. No fever. Appetite has been fair. turned her O2 up to 4 liters yesterday. She was up most of last evening with cough/dyspnea and continued to worsen and thus came to ER today for evaluation. Cough is nonproductive. Weight has been stable -- no LE edema. No sick contacts. Principal Diagnosis copd exacerbation Discharge Exam Constitutional well developed and average body habitus Eyes no conjunctival abnormality and no scleral abnormality Neck normal visual inspection and trachea midline Respiratory + respiratory distress and + uses accessory muscles; + abnormal respiratory effort Auscultation: + breath sounds absent Cardiovascular RRR, no murmur, no edema Gastrointestinal (Abdomen) normal bowel sounds, soft, nontender, no hepatosplenomegaly Musculoskeletal no cyanosis or clubbing, extremities motor strength 5/5 Discharge Data Allergies Allergy/AdvReac Type Severity Reaction Status Date / Time Sulfa (Sulfonamide Allergy Intermediate RASH Verified 12/19/18 09:40 Antibiotics) morphine AdvReac Mild GI SYMPTOMS Verified 12/19/18 09:40 Consultations 12/19/18 16:18 Consult Pulmonology Routine 12/26/18 14:29 Consult Palliative Care Routine Hospital Course (1) Acute on chronic respiratory failure with hypoxia and hypercapnia: Chronic respiratory failure is due to end-stage COPD. 12/25 bronchoscopy did not have significant improvement in her dyspnea. She spoken to palliative care and is not ready for hospice at this time eventual goal is to return to home, to this end oral steroids with a long slow taper (2) COPD exacerbation: in setting of end-stage COPD. attempts to taper steroids. Levaquin for bronchitis, nebs, Patient has remained fairly dyspneic despite her transfusion and bronchoscopy with removal of mucous mucoid secretions (3) Iron deficiency anemia: The patient's baseline hemoglobin is about 9. Her hemoglobin has remained stable during her hospital stay after transfusion 3/18 Previous ferritin level was low. Continue iron supplementation. still no signs of acute blood loss at this time however epigastric pain brings concern for gastritis or peptic ulcer disease the patient home on oral Protonix therapy (4) Chronic systolic (congestive) heart failure: The patient's weight remains stable clinically she has no signs of heart failure continue beta-dane, low-dose WALTER inhibitor and Lasix. furosemide 20 p.o. twice daily (5) Atrial fibrillation: Continues to remain rate controlled beta-blockers. she is not on chronic full-strength anticoagulation, now contraindicated due to acute anemia (6) CAD (coronary artery disease): Maintain on aspirin, beta dane, Zetia, WALTER inhibitor, and Lipitor. (7) Hypertension: Has been controlled on her usual home regimen (8) Anxiety: Anxiety her big issue she uses Lorazepam works a lot better than clonazepam she remains on sertraline is not frustrated in terms of palliative care at this time however we will discharge her with a dose of lorazepam in hopes her outpatient physician he continues continues to medication refers her to Dr. Wesley (9) Abdominal pain: Patient's abdominal pain is epigastric. Patient is on steroids. Continue Protonix at home (10) Chronic kidney disease, stage 3a: He is to remain stable (11) DVT prophylaxis: SCDs (12) Ischemic cardiomyopathy: Total Time Total Time Spent Total Time Spent (In Minutes): greater than 30 minutes were required to prepare discharge Discharge Plan Discharge Items Patient Disposition: Home - Home Health Services Reason For Visit: COPD EXACERBATION Discharge Diagnosis: copd flare up Discharge Goals: Decrease discomfort, Diagnostic testing and Improve disease control Activity: Resume your previous activity Non-emergency contact: Primary Care Provider Call non-emergency contact if: you have any medication questions Follow-up/Referrals: Edy Ornelas MD [Primary Care Provider] - Diet: Regular Addtl Provider Instructions: please follow up with primary care this week please use your nebulized medicines and restart your inhalers at the instruction of your primary care provider Prescriptions: [place] 15 mcg/2 mL Solution For Nebulization 15 mcg Inhalation BIDR Qty: 120 RF: 3 ipratropium-albuterol 0.5 mg-3 mg(2.5 mg base)/3 mL Solution For Nebulization 3 ml NEB Q4R Qty: 180 RF: 3 pantoprazole 40 mg Tablet,Delayed Release (Dr/Ec) 40 mg PO BID Qty: 60 RF: 2 prednisone 10 mg tablet 10 mg PO UD Qty: 40 RF: 0 lorazepam 0.5 mg tablet 0.5 mg PO Q8H PRN (Reason: anxiety) Qty: 60 RF: 0 Continued acetaminophen [Tylenol Extra Strength] 500 mg Tablet 500 mg PO Q6H PRN (Reason: Pain) RF: 0 atorvastatin 80 mg Tablet 80 mg PO HS RF: 0 carvedilol 12.5 mg Tablet 18.75 mg PO BID RF: 0 albuterol sulfate 2.5 mg /3 mL (0.083 %) Solution For Nebulization 2.5 mg INHALATION Q4 PRN (Reason: Shortness Of Breath Or Wheezing) RF: 0 clopidogrel 75 mg Tablet 75 mg PO QAM RF: 0 aspirin [Aspir-81] 81 mg Tablet,Delayed Release (Dr/Ec) 81 mg PO HS RF: 0 potassium chloride 20 mEq Tablet,Er Particles/Crystals 20 meq PO QAM RF: 0 pramipexole 0.25 mg Tablet 0.25 mg PO HS RF: 0 lisinopril 5 mg Tablet 5 mg PO QAM RF: 0 fluticasone propionate 50 mcg/actuation [place],Suspension 2 spray INTRANASAL QAM RF: 0 sertraline 50 mg Tablet 50 mg PO HS RF: 0 ezetimibe 10 mg Tablet 10 mg PO HS RF: 0 sodium chloride [[place] Nasal] 0.65 % Aerosol,[place] 1 spray INTRANASAL DIRECTED PRN (Reason: Nasal Congestion) RF: 0 ondansetron HCl [Zofran] 4 mg tablet 4 mg PO Q6H PRN (Reason: nausea and vomiting) Qty: 10 RF: 0 Changed furosemide [Lasix] 40 mg Tablet 20 mg PO BID Qty: 0 RF: 0 Discontinued clonazepam 0.5 mg Tablet 0.25 - 0.5 mg PO HS PRN (Reason: Sleep) RF: 0 fluticasone propion-salmeterol [Advair Diskus] 500-50 mcg/dose Blister With Device 1 inh INHALATION BID RF: 0 albuterol sulfate [Ventolin HFA] 90 mcg/actuation Hfa Aerosol Inhaler 1 - 2 puff INHALATION Q4 PRN (Reason: Shortness Of Breath Or Wheezing) RF: 0 Spiriva with HandiHaler 18 mcg Capsule, W/Inhalation Device 1 - 2 cap INHALATION Q4 PRN (Reason: Shortness Of Breath Or Wheezing) RF: 0 guaifenesin [Mucinex] 1,200 mg Tablet Extended Release 12hr 1,200 mg PO Q12H RF: 0 Combivent Respimat 20-100 mcg/actuation Mist 1 puff INHALATION QID RF: 0 Stand-Alone Forms: [facility] Discharge Orders: Discharge Order (Routine); Ordered 12/29/18 Ordered By: Girma Shine Admission Data Admit Date/Time: 12/19/18 14:05 Attending Provider: Girma Shine Admit Provider: Maninder Cuevas Primary Care Provider: Edy Ornelas V. Other Providers: Maninder Cuevas ; Arcenio Rm ; Arjun Portillo ; Laura Romero Service: Medical Other Interventions: Discharge Summary Assessment (RN) Last Done: 12/29/18 08:44 DC Date/Time DO NOT enter until pt leaves facility: 12/29/18 12:04
== END 2018-12-29 12:04 | disposition home health service (06) | DRG 189 ==
LOC: ED 08:06 → SUATTDRO 14:05 → 2S 14:05 → 4E 12-24 11:56

== ENCOUNTER 2019-01-04 05:46 | Inpatient (IN) ==
[2019-01-04 06:23] LABS: Eosinophils # (auto) 0.01 K/uL (0-0.5); Eosinophils % (auto) 0.1 %; Hematocrit (blood only) 31.5 % (37-47); Immature Granulocytes # (auto) 0.07 K/uL (0.00-0.02); Immature Granulocytes % (auto) 0.5 %; Lymphocytes # (auto) 1.24 K/uL (1.2-3.4); Lymphocytes % (auto) 9.4 %; Mean Corpuscular Hgb Conc 31.7 g/dL (32-36); Mean Corpuscular Volume 85.6 fL (80-100); Monocytes # (auto) 1.17 K/uL (0.11-0.59); Monocytes % (auto) 8.8 %; Neutrophils # (auto) 10.74 K/uL (1.4-6.5); Neutrophils % (auto) 81.2 %; Platelet Count 208 K/uL (130-400); RDW Coefficient of Variation 23.4 % (11.5-14.5); RDW Standard Deviation 71.5 fL (36.4-46.3); Red Blood Count 3.68 M/uL (4.2-5.4); White Blood Count 13.23 K/uL (4.8-10.8)
[2019-01-04 06:41] LABS: Albumin Level 2.7 gm/dl (3.4-5.0); BUN Creatinine Ratio 48.4 (10-20); Bilirubin Direct 0.2 mg/dl (0-0.2); Calcium 8.5 mg/dl (8.5-10.1); Creatinine Clr Calc Pharmacy 48.8 ml/min; Est GFR (African American) 92.5; Est GFR (Non-African American) 79.8; Magnesium 3.2 mg/dl (1.8-2.4); Potassium 4.5 mmol/L (3.5-5.1)
[2019-01-04 06:45] LABS: Anisocytosis Present; Ovalocytes 1+; Poikilocytosis Present
[2019-01-04] MEDS ORDERED: FUROSEMIDE 40 MG/4 ML VIAL IV STA (06:51)
[2019-01-04 07:03] LABS: Base Excess VBG 9.9 mEq/L; Oxygen Saturation VBG 79.5 %; pH VBG 7.48 (7.36-7.41)
[2019-01-04 07:08] LABS: Bilirubin,Total 0.6 mg/dl (0.2-1); Total Protein 5.5 gm/dl (6.4-8.2); Troponin I 0.11 ng/ml (0-0.045)
--- NOTE | 2019-01-04 07:08 | XRay Report ---
XR chest 1V portable HISTORY: 73 years-old Female SHOB acute shortness of breath with history of COPD COMPARISON: Chest radiograph 12/19/2018 TECHNIQUE: Portable AP view of the chest FINDINGS: Cardiac silhouette is enlarged, unchanged. Stable positioning of left subclavian pacer/AICD. Mild pul monary vascular congestion. No pneumothorax. Small left pleural effusion. Mild bibasilar opacities. D egenerative changes of the shoulders and spine. IMPRESSION: 1. Cardiomegaly with mild pulmonary vascular congestion. 2. Small left pleural effusion with bibasilar opacities suggestive of atelectasis or pneumonitis. The above report was generated using voice recognition software. It may contain grammatical, syntax o r spelling errors. Electronically signed by: Angelito Portillo M.D. 01/04/2019 7:06 AM
--- NOTE | 2019-01-04 07:11 | Emergency Department Note ---
Entered by Candis Chappell acting as a scribe for Arcenio Johns MD ED Provider Note Name: Bisi Jameson Age: 73 F Arrives Via: EMS Informant: The patient, EMS CC: Shortness of breath HPI: A 73 year old female arrives for evaluation of worsening shortness of breath starting less than an hour ago. 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 She states that she was recently discharged from the hospital and since her discharge has fallen 3 times. She notes that her legs were feeling weak and gave out contributing to her falls. She adds that she takes Plavix and Aspirin. 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 She denies nausea, vomiting and chest pain. ROS: See above HPI for pertinent positives & negatives. A total of 10 systems reviewed and were otherwise negative. Past Medical History: CAD, A-fib, Cardiomyopathy, Dyslipidemia, HTN, COPD, CHF, GIB. SAH. Past Surgical History: AICD, Carotid endarterectomy, Hysterectomy, Carpal tunnel release. Family History: CAD. Social History: . Lives at home with spouse. Feels safe at home. Former smoker. Home Medications: Tylenol Extra Strength 500 mg PO, Albuterol sulfate 2.5 mg INH, Brovana 15 mcg INH, Aspir-81 81 mg PO, Atorvastatin 80 mg PO, Carvedilol 18.75 mg PO, Clopidogrel 75 mg PO, Ezetimibe 10 mg Po, Fluticasone propionate 2 spray INH, Lasix 20 mg PO, Lisinopril 5 mg Po, Lorazepam 0.5 mg PO, Zofran 4 mg PO, Pantoprazole 40 mg PO, Potassium Chloride 20 meq PO, Pramipexole 0.25 mg PO, Prednisone 10 mg PO, Sertraline 50 mg PO, [place] Unknown Nasal 1 spray INH. Allergies Sulfa, Morphine. Physical: Vitals: BP: 113/47, Pulse: 81, Resp: 24, Temp: -, O2 Sat: 95, Delivery: Nasal Cannula 2L/min Exam: GENERAL: Patient is acutely ill appearing and in mild distress. EYES: No scleral icterus, unremarkable pupils. ENT: Mucous membranes moist, no nasal congestion. NECK: No masses appreciated, no meningismus, trachea is midline. RESPIRATORY: Clear to auscultation and equal bilaterally. No wheeze, no rhonchi. Diffuse crackles to all lung english. Dyspnic. Tolerating BIPAP well. CARDIOVASCULAR: Regular rate and rhythm. No murmurs, rubs, gallops appreciated. GASTROINTESTINAL: Abdomen soft, non-tender, no peritonitis. Bowel sounds positive. No masses appreciated. BACK: No midline tenderness, no CVA tenderness EXTREMITIES: Normal motion all extremities, no cyanosis, no edema. NEUROLOGIC: Alert and oriented, no acute motor or sensory deficits, no focal weakness, cranial nerves grossly intact. SKIN: Extensive bruising of shins/arms, no rash, no jaundice, no diaphoresis. ED Course: 06: Prior Medical Record, Triage/Nursing Notes, Medications, Allergies reviewed by Me.Past medical records reviewed. The patient was evaluated in room C9, and a complete history and physical examination were performed. 06: I reevaluated the patient who is asleep at this time. 07: I reviewed the patient's case with Dr. Shine - [facility] [place]. He will evaluate the patient for further management. Vital Signs: reviewed and remarkable for tachypnea Labs: Reviewed and remarkable for elevated Trop (at her baseline), mild wbc elevation Interventions: Saline Lock, BiPAP, Lasix 40mg IV Imaging: X ray results are stated below per my interpretation: Chest: 1 view: Cardiomegaly with congestive findings EKG: Per My Interpretation: Atrial Sensed 83 bpm Consults: Dr Shine of [place] Hospitalist for further evaluation Blood pressure: Normal. No Referral necessary Disposition: Hospitalization Differentials: Etiologies such as infections, reactive airway disease, COPD, pneumonia, pleural effusion, pulmonary edema, ARDS, pneumothorax, CHF, cardiac ischemia, cardiac tamponade, dysrhythmia, anemia, pulmonary embolism, musculoskeletal, gastrointestinal process, as well as others were entertained. Medical Decision Makin yr old chronically unwell female arrives for evaluation of worsening shortness of breath. Long history of CHF and COPD. Arrives in acute distress after already receiving multiple nebs, solumedrol and magnesium. BIPAP started with good improvement in breathing. Seems wet by exam and with CXR findings she was given 40mg IV lasix. She stabilized quickly while in ED. Has extensive bruising shins/arms from falls though no head neck pain. She is quite unwell and has already failed going home several times the last few months. Hospitalist in to evaluate and determine further steps. Impression: Acute and chronic respiratory failure Congestive heart failure (acute on chronic) Critical Care Time: I have personally spent greater than 35 minutes of critical care time in the direct management of this patient. Acute respiratory failure requiring BiPAP for her acute CHF. This was a life/limb threatening event. This includes time spent evaluating patient, direct bedside care, chart review, placing orders, interpretation of diagnostic studies, discussion with consultants, patient, and family members, as well as other required patient management activities. This 35 minutes is in excess of all separately billable procedures. Arcenio Johns MD The scribe's documentation has been prepared under my direction and personally reviewed by me in its entirety. I confirm that the note above accurately reflects all work, treatment, procedures, and medical decision making performed by me. 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 Beliefs That Will Affect Care: None marital status: Current Living Situation: Spouse Current Living Situation Comment: lives in [place]; has 3 children current occupational status: retired Other Information That Helps Us Care for You: 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[employer], 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) Feels Safe at Home: Yes Safety Concerns: Feels Safe At This Time Smoking Status: Former smoker Hx Alcohol Use: No Hx Substance Use: No Results & Data Vital Signs Vital Signs - 24 hr 01/04/19 05:50 01/04/19 05:52 01/04/19 05:53 Sepsis Recent Fever Within 48 Hours No Sepsis New/Unexplained Change in Mental Status No Sepsis Action Taken by Nursing No Action Required Pulse Rate 88 82 85 Pulse Rate from SpO2 Sensor 88 82 Respiratory Rate 22 21 31 H Respiratory Effort / Characteristics Accessory Muscle Use Respiratory Depth Respiratory Pattern Blood Pressure 113/47 L 113/47 L Blood Pressure Mean 69 69 Pulse Oximetry 98 97 94 Oxygen Delivery Method BiPAP BiPAP BiPAP Oxygen Flow Rate 2 Fraction of Inspired Oxygen 01/04/19 05:57 01/04/19 06:00 01/04/19 06:01 Sepsis Recent Fever Within 48 Hours Sepsis New/Unexplained Change in Mental Status Sepsis Action Taken by Nursing Pulse Rate 81 78 79 Pulse Rate from SpO2 Sensor 79 80 Respiratory Rate 24 26 H 24 Respiratory Effort / Characteristics Spontaneous Accessory Muscle Use Labored Short of Breath SOB on Exertion Normal for Patient Respiratory Depth Normal Respiratory Pattern Regular Blood Pressure 113/70 Blood Pressure Mean 84 Pulse Oximetry 95 94 94 Oxygen Delivery Method BiPAP BiPAP Oxygen Flow Rate Fraction of Inspired Oxygen 30 01/04/19 06:30 01/04/19 07:00 01/04/19 07:01 Sepsis Recent Fever Within 48 Hours Sepsis New/Unexplained Change in Mental Status Sepsis Action Taken by Nursing Pulse Rate 73 74 75 Pulse Rate from SpO2 Sensor 73 75 77 Respiratory Rate 19 20 21 Respiratory Effort / Characteristics Respiratory Depth Respiratory Pattern Blood Pressure 120/52 L Blood Pressure Mean 74 Pulse Oximetry 97 93 93 Oxygen Delivery Method BiPAP BiPAP BiPAP Oxygen Flow Rate Fraction of Inspired Oxygen 01/04/19 07:30 01/04/19 08:00 01/04/19 08:01 Sepsis Recent Fever Within 48 Hours Sepsis New/Unexplained Change in Mental Status Sepsis Action Taken by Nursing Pulse Rate 72 78 77 Pulse Rate from SpO2 Sensor 72 78 78 Respiratory Rate 19 25 H 25 H Respiratory Effort / Characteristics Respiratory Depth Respiratory Pattern Blood Pressure 130/56 L Blood Pressure Mean 80 Pulse Oximetry 93 97 97 Oxygen Delivery Method BiPAP Nasal Cannula Nasal Cannula Oxygen Flow Rate 3 3 Fraction of Inspired Oxygen 01/04/19 08:30 Sepsis Recent Fever Within 48 Hours Sepsis New/Unexplained Change in Mental Status Sepsis Action Taken by Nursing Pulse Rate Pulse Rate from SpO2 Sensor Respiratory Rate Respiratory Effort / Characteristics Spontaneous SOB on Exertion Respiratory Depth Normal Respiratory Pattern Tachypnea Blood Pressure Blood Pressure Mean Pulse Oximetry Oxygen Delivery Method Nasal Cannula Oxygen Flow Rate 3 Fraction of Inspired Oxygen Home Medications Current Medication List: was personally reviewed by me Laboratory Data Attestation: I reviewed the patient's lab results. Result diagrams: 01/04/19 06:10 01/04/19 06:10 Lab Results 01/04/19 01/04/19 01/04/19 Range/Units 06:10 06:10 06:10 WBC 13.23 H (4.8-10.8) K/uL RBC 3.68 L (4.2-5.4) M/uL Hgb 10.0 L (12.0-16.0) g/dL Hct 31.5 L (37-47) % MCV 85.6 (80-100) fL MCH 27.2 (25-34) pg MCHC 31.7 L (32-36) g/dL RDW Std Deviation 71.5 H (36.4-46.3) fL RDW Coeff of Kiana 23.4 H (11.5-14.5) % Plt Count 208 (130-400) K/uL MPV 9.0 (7.4-10.4) fL Immature Gran % (Auto) 0.5 % Neut % (Auto) 81.2 % Lymph % (Auto) 9.4 % [place] % (Auto) 8.8 % Eos % (Auto) 0.1 % Baso % (Auto) 0.0 % Immature Gran # (Auto) 0.07 H (0.00-0.02) K/uL Neut # (Auto) 10.74 H (1.4-6.5) K/uL Lymph # (Auto) 1.24 (1.2-3.4) K/uL [place] # (Auto) 1.17 H (0.11-0.59) K/uL Eos # (Auto) 0.01 (0-0.5) K/uL Baso # (Auto) 0.00 (0-0.2) K/uL Poikilocytosis Present Anisocytosis Present Ovalocytes 1+ VBG pH (7.36-7.41) VBG pCO2 (38-50) mmHg VBG pO2 mmHg VBG HCO3 mmol/L VBG O2 Saturation % VBG Base Excess mEq/L Barometric Pressure mm/Hg Sodium 139 (136-145) mmol/L Potassium 4.5 (3.5-5.1) mmol/L Chloride 99 (98-107) mmol/L Carbon Dioxide 35 H (21-32) mmol/L Anion Gap 4.0 (3-11) BUN 36 H (7-18) mg/dl Creatinine 0.74 (0.6-1.2) mg/dl Est Cr Clr Drug Dosing 48.8 ml/min Est GFR ( Amer) 92.5 Est GFR (Non-Af Amer) 79.8 BUN/Creatinine Ratio 48.4 H (10-20) Glucose 105 H (70-99) mg/dl Lactate (0.4-2.0) mmol/L Calcium 8.5 (8.5-10.1) mg/dl Magnesium 3.2 H Cancelled (1.8-2.4) mg/dl Total Bilirubin 0.6 (0.2-1) mg/dl Direct Bilirubin 0.2 (0-0.2) mg/dl AST 29 (15-37) U/L ALT 49 (12-78) U/L Alkaline Phosphatase 87 (45-117) U/L Troponin I 0.110 H* Cancelled (0-0.045) ng/ml NT-Pro-B Natriuret Pep 6364 H (0-900) pg/ml Total Protein 5.5 L (6.4-8.2) gm/dl Albumin 2.7 L (3.4-5.0) gm/dl Lipase 122 Cancelled (73-393) U/L 01/04/19 01/04/19 Range/Units 06:52 06:52 WBC (4.8-10.8) K/uL RBC (4.2-5.4) M/uL Hgb (12.0-16.0) g/dL Hct (37-47) % MCV (80-100) fL MCH (25-34) pg MCHC (32-36) g/dL RDW Std Deviation (36.4-46.3) fL RDW Coeff of Kiana (11.5-14.5) % Plt Count (130-400) K/uL MPV (7.4-10.4) fL Immature Gran % (Auto) % Neut % (Auto) % Lymph % (Auto) % [place] % (Auto) % Eos % (Auto) % Baso % (Auto) % Immature Gran # (Auto) (0.00-0.02) K/uL Neut # (Auto) (1.4-6.5) K/uL Lymph # (Auto) (1.2-3.4) K/uL [place] # (Auto) (0.11-0.59) K/uL Eos # (Auto) (0-0.5) K/uL Baso # (Auto) (0-0.2) K/uL Poikilocytosis Anisocytosis Ovalocytes VBG pH 7.48 H (7.36-7.41) VBG pCO2 47 (38-50) mmHg VBG pO2 44 mmHg VBG HCO3 35 mmol/L VBG O2 Saturation 79.5 % VBG Base Excess 9.9 mEq/L Barometric Pressure 724.5 mm/Hg Sodium (136-145) mmol/L Potassium (3.5-5.1) mmol/L Chloride (98-107) mmol/L Carbon Dioxide (21-32) mmol/L Anion Gap (3-11) BUN (7-18) mg/dl Creatinine (0.6-1.2) mg/dl Est Cr Clr Drug Dosing ml/min Est GFR ( Amer) Est GFR (Non-Af Amer) BUN/Creatinine Ratio (10-20) Glucose (70-99) mg/dl Lactate 1.6 (0.4-2.0) mmol/L Calcium (8.5-10.1) mg/dl Magnesium (1.8-2.4) mg/dl Total Bilirubin (0.2-1) mg/dl Direct Bilirubin (0-0.2) mg/dl AST (15-37) U/L ALT (12-78) U/L Alkaline Phosphatase (45-117) U/L Troponin I (0-0.045) ng/ml NT-Pro-B Natriuret Pep (0-900) pg/ml Total Protein (6.4-8.2) gm/dl Albumin (3.4-5.0) gm/dl Lipase (73-393) U/L Administered Medications Discontinued Medications Furosemide (Lasix) 40 mg IV NOW STA Stop: 01/04/19 06:52 Last Admin: 01/04/19 07:25 Dose: 40 mg Documented by: [id number] Imaging Data Attestation: I personally reviewed and interpreted this imaging study as follows: ECG Data Attestation: I personally reviewed and interpreted this ECG as follows: Indication: SOB/dyspnea Blood Pressure Blood Pressure Findings: Low blood pressure Blood Pressure Disposition: further management by hospitalist Discharge Plan Visit Data Chief Complaint: Shortness of Breath/Dyspnea ED Provider: Arcenio Johns Discharge Problem: Acute and chronic respiratory failure, Congestive heart failure Patient Disposition: Being Evaluated by Hospitalist Discharge Instructions Interventions: ED Discharge Assessment Last Done: 01/04/19 08:24 Discharge Problem: Acute and chronic respiratory failure Qualifiers: Respiratory failure complication: unspecified whether with hypoxia or hypercapnia Qualified Code(s): J96.20 - Acute and chronic respiratory failure, unspecified whether with hypoxia or hypercapnia Congestive heart failure Qualifiers: Heart failure type: combined systolic and diastolic Heart failure chronicity: acute on chronic Qualified Code(s): I50.43 - Acute on chronic combined systolic (congestive) and diastolic (congestive) heart failure The scribe's documentation has been prepared under my direction and personally reviewed by me in its entirety. I confirm that the note above accurately reflects all work, treatment, procedures, and medical decision making performed by me.
--- NOTE | 2019-01-04 07:28 | History & Physical Report ---
Date of Service January 04, 2019 Assessment & Plan (1) Acute and chronic respiratory failure with hypoxia: Patient presented with acute on chronic respiratory failure with hypoxia likely multifactorial from her underlying COPD and oxygen dependent condition at home, she also has this clotted by previous history of ischemic cardia myopathy with EF of 20% underlying A. fib and a paced rhythm. She also has a systolic murmur. Reportedly on presentation she had some rales was given Lasix in the ER although she was also treated aggressively for. improved on all fronts. Given the fact that she believes this happened acutely at night this is likely either mucous plugging exacerbating her Less likely is this ischemic event, initial troponin is 0.11 and EKG shows paced rhythm We will continue her Brovana duo nebs and oral prednisone therapy at this time we will employ chest PT (2) Ischemic cardiomyopathy: Given the fact that she is in need for 20% will not repeat an echocardiogram however will change her Lasix IV and increase the dose from 20 twice daily to 40 twice daily. 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 may be the origin of her readmission week can consider Entresto but we will talk with cardiology prior to this (3) Atrial fibrillation: Patient is a paced rhythm at this time she has not been anticoagulated due to her previous history of subarachnoid hemorrhage and iron deficiency anemia in the past (4) Ambulatory dysfunction: Patient had multiple falls at home and she is can turn her left arm we will employ wound care therapy and PT OT evaluation with strong suggestion that she go to inpatient subacute rehab prior to discharge (5) Code status needs review: Patient's been full code during her last admission. She also spoke to palliative care during her last admission at that time she is unclear about her future needs although she did state she did not want to come back to the hospital however she represented. At this time she remains a full code we may consider engaging palliative care again (6) DVT prophylaxis: Heparin subcutaneous will be used for DVT prevention History of Present Illness Primary Care Provider: Edy Ornelas MD 73 year old female with advanced COPD on home oxygen therapy, anxiety, chronic CHF, ischemic cardiomyopathy with EF 20%, and others, presented with acute on chronic respiratory failure. This patient presented with acute respiratory failure and hypoxia. Apparently the patient was in fairly severe respiratory distress when paramedics arrived they administer nebulized medications and sign Medrol in route. Patient was also given Lasix in the ER as her assessment was clinically for heart failure. This likely was acute systolic heart failure. Patient on upon my evaluation was near her normal state she was able to be taken off of BiPAP therapy and on 3 L of oxygen her sats were in the mid 90s. Patient states that she is been doing well since discharge until yesterday when she had increased exertion. Patient has had weakness at home and falling but she does reconfirm that she refused rehabilitation inpatient last stay. She says she is having some home PT. Patient states she woke up in the middle the night acutely short of breath she denies any associated chest pain she has had no mucus production or fever During her last admission she was fairly chronically short of breath. She underwent bronchoscopy for mucoid impaction with the hopes that patient would be improved after bronchoscopy, but unfortunately she remained same with only minimal improvement. Patient at baseline is SOB at rest but becomes very dyspneic with activity. She lives at home with her who has his own health problems and has a Pleur-x catheter. During multiple readmissions the patient refused inpatient rehab. This is her third or fourth admission in the calendar year and likely will need to be more suggestive to try to have her consider rehab placement. On admission she has a skin tear on her left arm that was present she is improved but will be in telemetry for watching her tenuous respiratory status Allergies Allergy/AdvReac Type Severity Reaction Status Date / Time Sulfa (Sulfonamide Allergy Intermediate RASH Verified 01/04/19 05:57 Antibiotics) morphine AdvReac Mild GI SYMPTOMS Verified 01/04/19 05:57 Home Medications Home Medications Medication Instructions Recorded Confirmed Type albuterol sulfate 2.5 mg INHALATION Q4 PRN 10/24/18 01/04/19 History aspirin [Aspir-81] 81 mg PO HS 10/24/18 01/04/19 History atorvastatin 80 mg PO HS 10/24/18 01/04/19 History carvedilol 18.75 mg PO BID 10/24/18 01/04/19 History clopidogrel 75 mg PO QAM 10/24/18 01/04/19 History ezetimibe 10 mg PO HS 10/24/18 01/04/19 History fluticasone propionate 2 spray INTRANASAL QAM 10/24/18 01/04/19 History lisinopril 5 mg PO QAM 10/24/18 01/04/19 History potassium chloride 20 meq PO QAM 10/24/18 01/04/19 History pramipexole 0.25 mg PO HS 10/24/18 01/04/19 History sertraline 50 mg PO HS 10/24/18 01/04/19 History sodium chloride [[place] Nasal] 1 spray INTRANASAL DIRECTED PRN 10/24/18 01/04/19 History ondansetron HCl [Zofran] 4 mg PO Q6H PRN #10 tab 10/29/18 01/04/19 Rx acetaminophen [Tylenol Extra 500 mg PO Q6H PRN 12/19/18 01/04/19 History Strength] arformoterol [Brovana] 15 mcg INHALATION BIDR #120 ml 12/29/18 01/04/19 Rx furosemide [Lasix] 20 mg PO BID #0 tab 12/29/18 01/04/19 Rx ipratropium-albuterol 3 ml NEB Q4R #180 ml 12/29/18 01/04/19 Rx lorazepam 0.5 mg PO Q8H PRN #60 tab 12/29/18 01/04/19 Rx pantoprazole 40 mg PO BID #60 tab 12/29/18 01/04/19 Rx prednisone 10 mg PO UD #40 tab 12/29/18 01/04/19 Rx Past Med/Surg History Medical History CAD (coronary artery disease) s/p HI in 1999 Atrial fibrillation Ischemic cardiomyopathy EF 25-30% Dyslipidemia Hypertension COPD (chronic obstructive pulmonary disease) (Acute) CHF (congestive heart failure) (Chronic) Pulmonary congestion Non compliance w medication regimen Emphysema of lung Syncope Acute and chronic respiratory failure with hypercapnia Acute and chronic respiratory failure with hypoxia Ambulatory dysfunction (Acute) GIB (gastrointestinal bleeding) Reflux esophagitis SAH (subarachnoid hemorrhage) Surgical History S/P carotid endarterectomy S/P carpal tunnel release S/P hysterectomy S/P implantation of automatic cardioverter/defibrillator (AICD) Family History Father , about age 80 Coronary heart disease from acute [place] Mother , age 75 Coronary heart disease had CABG; ultimately from [place] Other Heart disease Social History Preferred Language: Maltese Beliefs That Will Affect Care: None marital status: Current Living Situation: Spouse Current Living Situation Comment: lives in [place]; has 3 children 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[employer], 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) Feels Safe at Home: Yes Smoking Status: Former smoker Hx Alcohol Use: No Hx Substance Use: No Review of Systems ROS: Patient is thin and chronically ill No double vision blurry vision No problems with speech or swallowing No palpitations, chest pain or pressure Extremely short of breath nonproductive cough dyspnea with exertion No abdominal pain nausea vomiting diarrhea changes in appetite or weight No burning urine urine frequency or changes in color No focal joint pain or muscle pain No skin rashes or oral lesions Skin tear left forearm No focused back pain or numbness or loss of strength No changes in memory or confusion Physical Exam Vital Signs (Past 24 Hours): Last Vital Signs Pulse 81 01/04/19 05:57 Resp 24 01/04/19 05:57 BP 113/47 L 01/04/19 05:53 Pulse Ox 95 01/04/19 05:57 the patient appeared chachectic and chronicaly ill Vital signs as documented. she is tolerant of nasal canulae Head exam is unremarkable. normocephalic, atraumatic Neck is without jugular venous distension, thyromegaly, or lymphademopathy Lungs are coarse rhonchi at bases and poor air movement at apex Cardiac exam reveals Rhythm is regular, but she is paced on the monitor, mao Abdominal exam reveals normal bowel sounds, no masses, no organomegaly Extremities are nonedematous and both pedal pulses are present Neurologic exam is A&Ox3, no focal deficits, strength is equal bilateral Psychologically seems neither anxious or depressed Skin is warm Dry there is a bloody bandage over a skin tear on her left arm (1) Atrial fibrillation Atrial fibrillation type: chronic Qualified Code(s): I48.2 - Chronic atrial fibrillation
[2019-01-04] MEDS ORDERED: SODIUM CHLORIDE 0.65% NA SOLN 45 ML (OCEAN) PRN (08:55)
[2019-01-04] MEDS: FUROSEMIDE 40 MG in SYRINGE 0 ML IV SCH ×2 (10:07→16:27)
[2019-01-04] MEDS: predniSONE 20 MG TAB PO SCH (10:08)
[2019-01-04] MEDS: CARVEDILOL 12.5 MG TAB PO SCH ×2 (10:08→20:19)
[2019-01-04] MEDS: LISINOPRIL 5 MG TAB PO SCH (10:08)
[2019-01-04] MEDS: PANTOprazole 40 MG TAB PO SCH ×2 (10:09→20:19)
[2019-01-04] MEDS: HEPARIN SOD 5,000 UNIT/0.5 ML VIAL SQ SCH ×3 (10:09→20:23)
[2019-01-04] MEDS: POTASSIUM CHLORIDE 20 MEQ TABCR PO SCH (10:09)
[2019-01-04] MEDS: CLOPIDOGREL BISULFATE 75 MG TAB PO SCH (10:09)
[2019-01-04] MEDS: FLUTICASONE PROPIONATE NA SPR 16 GM BTL SCH (10:09)
[2019-01-04] MEDS: ARFORMOTEROL TART 15MCG/2ML VIAL INH SCH ×2 (10:42→19:15)
[2019-01-04] MEDS: ALBUT/IPRATROP 3MG/0.5MG NEB 3 ML VIAL NEB SCH ×5 (10:44→23:19)
--- NOTE | 2019-01-04 17:59 | History & Physical Report ---
Date of Service January 04, 2019 Assessment & Plan (1) Acute and chronic respiratory failure with hypoxia: Patient presented with acute on chronic respiratory failure with hypoxia likely multifactorial from her underlying COPD and oxygen dependent condition at home, she also has this clotted by previous history of ischemic cardia myopathy with EF of 20% underlying A. fib and a paced rhythm. She also has a systolic murmur. Reportedly on presentation she had some rales was given Lasix in the ER although she was also treated aggressively for. improved on all fronts. Given the fact that she believes this happened acutely at night this is likely either mucous plugging exacerbating her Less likely is this ischemic event, initial troponin is 0.11 and EKG shows paced rhythm We will continue her Brovana duo nebs and oral prednisone therapy at this time we will employ chest PT (2) Ischemic cardiomyopathy: Given the fact that she is in need for 20% will not repeat an echocardiogram however will change her Lasix IV and increase the dose from 20 twice daily to 40 twice daily. 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 may be the origin of her readmission week can consider Entresto but we will talk with cardiology prior to this (3) Atrial fibrillation: Patient is a paced rhythm at this time she has not been anticoagulated due to her previous history of subarachnoid hemorrhage and iron deficiency anemia in the past (4) Ambulatory dysfunction: Patient had multiple falls at home and she is can turn her left arm we will employ wound care therapy and PT OT evaluation with strong suggestion that she go to inpatient subacute rehab prior to discharge (5) Code status needs review: Patient's been full code during her last admission. She also spoke to palliative care during her last admission at that time she is unclear about her future needs although she did state she did not want to come back to the hospital however she represented. At this time she remains a full code we may consider engaging palliative care again (6) DVT prophylaxis: Heparin subcutaneous will be used for DVT prevention History of Present Illness Primary Care Provider: Edy Ornelas MD Patient presents to the emergency department by ambulance with acute respiratory failure at home. She states that she has been doing well this week until 1 day ago when she thinks she overdid it. She awoke in the middle the night acutely short of breath. There was some concern in route that the patient may be having a COPD exacerbation she was given nebulized medications and steroids. She is placed on BiPAP and by the time I saw the patient she was much improved. Be able to tolerate removing her BiPAP Allergies Allergy/AdvReac Type Severity Reaction Status Date / Time Sulfa (Sulfonamide Allergy Intermediate RASH Verified 01/04/19 05:57 Antibiotics) morphine AdvReac Mild GI SYMPTOMS Verified 01/04/19 05:57 Home Medications Home Medications Medication Instructions Recorded Confirmed Type albuterol sulfate 2.5 mg INHALATION Q4 PRN 10/24/18 01/04/19 History aspirin [Aspir-81] 81 mg PO HS 10/24/18 01/04/19 History atorvastatin 80 mg PO HS 10/24/18 01/04/19 History carvedilol 18.75 mg PO BID 10/24/18 01/04/19 History clopidogrel 75 mg PO QAM 10/24/18 01/04/19 History ezetimibe 10 mg PO HS 10/24/18 01/04/19 History fluticasone propionate 2 spray INTRANASAL QAM 10/24/18 01/04/19 History lisinopril 5 mg PO QAM 10/24/18 01/04/19 History potassium chloride 20 meq PO QAM 10/24/18 01/04/19 History pramipexole 0.25 mg PO HS 10/24/18 01/04/19 History sertraline 50 mg PO HS 10/24/18 01/04/19 History sodium chloride [[place] Nasal] 1 spray INTRANASAL DIRECTED PRN 10/24/18 01/04/19 History ondansetron HCl [Zofran] 4 mg PO Q6H PRN #10 tab 10/29/18 01/04/19 Rx acetaminophen [Tylenol Extra 500 mg PO Q6H PRN 12/19/18 01/04/19 History Strength] arformoterol [Brovana] 15 mcg INHALATION BIDR #120 ml 12/29/18 01/04/19 Rx furosemide [Lasix] 20 mg PO BID #0 tab 12/29/18 01/04/19 Rx ipratropium-albuterol 3 ml NEB Q4R #180 ml 12/29/18 01/04/19 Rx lorazepam 0.5 mg PO Q8H PRN #60 tab 12/29/18 01/04/19 Rx pantoprazole 40 mg PO BID #60 tab 12/29/18 01/04/19 Rx prednisone 10 mg PO UD #40 tab 12/29/18 01/04/19 Rx Past Med/Surg History Family History Father , about age 80 Coronary heart disease from acute [place] Mother , age 75 Coronary heart disease had CABG; ultimately from [place] Other Heart disease Social History Preferred Language: Upper Sorbian Communication Ability: Effective 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 Beliefs That Will Affect Care: None marital status: Current Living Situation: Spouse Current Living Situation Comment: lives in [place]; has 3 children current occupational status: retired Other Information That Helps Us Care for You: 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
[2019-01-04] MEDS: LORazepam 0.5 MG TAB PO PRN (20:18)
[2019-01-04] MEDS: SERTRALINE HCL 50 MG TABLET PO SCH (20:19)
[2019-01-04] MEDS: PRAMIPEXOLE DIHYDROCHLO 0.25 MG TAB PO SCH (20:19)
[2019-01-04] MEDS: ASPIRIN 81 MG ECTAB PO SCH (20:20)
[2019-01-05] MEDS: ALBUT/IPRATROP 3MG/0.5MG NEB 3 ML VIAL NEB SCH ×6 (03:24→23:16)
[2019-01-05 05:04] LABS: BUN Creatinine Ratio 40.2 (10-20); Calcium 8.3 mg/dl (8.5-10.1); Creatinine Clr Calc Pharmacy 33.4 ml/min; Est GFR (African American) 58.6; Est GFR (Non-African American) 50.5; Magnesium 2.4 mg/dl (1.8-2.4); Potassium 4.4 mmol/L (3.5-5.1)
[2019-01-05] MEDS: PANTOprazole 40 MG TAB PO SCH ×2 (07:46→21:28)
[2019-01-05] MEDS: CLOPIDOGREL BISULFATE 75 MG TAB PO SCH (07:46)
[2019-01-05] MEDS: CARVEDILOL 12.5 MG TAB PO SCH ×2 (07:47→21:27)
[2019-01-05] MEDS: POTASSIUM CHLORIDE 20 MEQ TABCR PO SCH (07:48)
[2019-01-05] MEDS: predniSONE 20 MG TAB PO SCH (07:48)
[2019-01-05] MEDS: LISINOPRIL 5 MG TAB PO SCH (07:48)
[2019-01-05] MEDS: HEPARIN SOD 5,000 UNIT/0.5 ML VIAL SQ SCH (07:49)
[2019-01-05] MEDS: FUROSEMIDE 40 MG in SYRINGE 0 ML IV SCH ×2 (07:50→16:45)
[2019-01-05] MEDS: FLUTICASONE PROPIONATE NA SPR 16 GM BTL SCH (07:51)
[2019-01-05] MEDS: ACETAMINOPHEN 500 MG TAB PO PRN (07:55)
[2019-01-05] MEDS: ARFORMOTEROL TART 15MCG/2ML VIAL INH SCH ×2 (11:06→19:10)
--- NOTE | 2019-01-05 15:03 | Hospitalist Progress Note ---
Date of Service January 05, 2019 Assessment & Plan (1) Acute and chronic respiratory failure with hypoxia: - multifactorial with COPD requiring 2L NC at home, with EF of 20%, underlying A. fib and a paced rhythm. - Given the fact that she believes this happened acutely at night this is likely either mucous plugging - trop 0.11, then 0.10 - continue her Brovana duo nebs and oral prednisone therapy at this time we will employ chest PT - she is currently at her baseline oxygen needs, saturating high 90s - consult palliative care (2) Ischemic cardiomyopathy: - EF 20% - continue Lasix to IV 40 mg twice daily. - continue beta-dane, may want to consider Entresto but at the moment her respiratory status is improved so will continue lisinopril (3) Atrial fibrillation: Patient is a paced rhythm at this time she has not been anticoagulated due to her previous history of subarachnoid hemorrhage and iron deficiency anemia in the past (4) Ambulatory dysfunction: Patient had multiple falls at home - PT OT evaluation with strong suggestion that she go to inpatient subacute rehab prior to discharge - patient has refused rehab with her previous admissions (5) Code status needs review: Patient's been full code during her last admission. She also spoke to palliative care during her last admission at that time she is unclear about her future needs although she did state she did not want to come back to the hospital however she re-presented. At this time she remains a full code, palliative is consulted (6) DVT prophylaxis: SCDs - hold chemoprophylaxis due to history of subarachnoid bleed Supervising Physician Co-Signing Physician Notes Attending Attestation: Chart reviewed in detail, care plan d/w GENESIS Ruby. I agree w/ the jacobsen components of her documentation. Patient with recurrent admissions for acute/chronic resp failure. Has O2-dependent, end-stage COPD and severe systolic CHF. Agree w/ palliative care consult and plan for gentle rehab at SNF level - if patient agreeable (has refused in past however). Consider daily prednisone upon d/c (5mg or 10mg) but would defer that to pulmonary. CKD stage 3 - CrCl at baseline 30-40. Stable. Maninder Cuevas MD Subjective Ms. Jameson feels as sob as she did on admission. She has a productive cough. She is at her baseline oxygenation Review of Systems All systems reviewed & are unremarkable except as noted in HPI & below Physical Exam Vital Signs (Past 24 Hours): Last Vital Signs Temp 36.5 C 01/05/19 12:17 Pulse 79 01/05/19 12:17 Resp 21 01/05/19 08:00 BP 88/48 L 01/05/19 12:17 Pulse Ox 98 01/05/19 12:17 Physical Exam: General: no distress Eyes: normal inspection, PERLL Respiratory: chest non tender, coarse bases with expiratory wheezes bilaterally, no respiratory distress, no accessory muscle use Cardiac: regular rate and rhythm, no rub or gallop, no murmur, no edema, no jvd GI/: active bowel sounds, no abd pain or tenderness, soft, non distended Extremities: normal range of motion, normal strength, non tender Neuro/Psych: alert and oriented x 3, normal mood and affect Skin: normal color, dry Results & Data Laboratory Results Abnormal lab results 01/05/19 01/05/19 Range/Units 04:18 11:47 Carbon Dioxide 34 H (21-32) mmol/L BUN 43 H (7-18) mg/dl BUN/Creatinine Ratio 40.2 H (10-20) Glucose 134 H (70-99) mg/dl Calcium 8.3 L (8.5-10.1) mg/dl Troponin I 0.101 H* (0-0.045) ng/ml (1) Atrial fibrillation Atrial fibrillation type: chronic Qualified Code(s): I48.2 - Chronic atrial fibrillation
[2019-01-05] MEDS: PRAMIPEXOLE DIHYDROCHLO 0.25 MG TAB PO SCH (21:25)
[2019-01-05] MEDS: SERTRALINE HCL 50 MG TABLET PO SCH (21:26)
[2019-01-05] MEDS: ASPIRIN 81 MG ECTAB PO SCH (21:26)
[2019-01-05] MEDS: LORazepam 0.5 MG TAB PO PRN (21:37)
[2019-01-06] MEDS: ALBUT/IPRATROP 3MG/0.5MG NEB 3 ML VIAL NEB SCH ×6 (04:57→23:05)
[2019-01-06 06:29] LABS: Hematocrit (blood only) 28.1 % (37-47); Hemoglobin 8.9 g/dL (12.0-16.0); Mean Corpuscular Hgb Conc 31.7 g/dL (32-36); Mean Corpuscular Volume 86.2 fL (80-100); Mean Platelet Volume 9.5 fL (7.4-10.4); Platelet Count 206 K/uL (130-400); RDW Coefficient of Variation 23.9 % (11.5-14.5); RDW Standard Deviation 73.5 fL (36.4-46.3); Red Blood Count 3.26 M/uL (4.2-5.4); White Blood Count 10.32 K/uL (4.8-10.8)
[2019-01-06 07:04] LABS: BUN Creatinine Ratio 46.9 (10-20); Calcium 8.2 mg/dl (8.5-10.1); Creatinine Clr Calc Pharmacy 36.5 ml/min; Est GFR (African American) 64.3; Est GFR (Non-African American) 55.5
[2019-01-06] MEDS: ARFORMOTEROL TART 15MCG/2ML VIAL INH SCH ×2 (07:15→19:19)
--- NOTE | 2019-01-06 08:09 | Hospitalist Progress Note ---
Date of Service January 06, 2019 Assessment & Plan (1) Acute and chronic respiratory failure with hypoxia: - multifactorial - COPD with exacerbation normally requiring 2L NC at home, with EF of 20%, underlying A. fib and a paced rhythm. - continue her Brovana duo nebs and oral prednisone therapy, chest PT - she is currently at her baseline oxygen needs, saturating high 90s - consult palliative care (2) Ischemic cardiomyopathy: - EF 20% - decrease Lasix to IV 40 mg once daily as patient appears dry. She is negative 2500 mls for this admission - continue beta-dane, lisinopril (3) Atrial fibrillation: Patient is a paced rhythm at this time she has not been anticoagulated due to her previous history of subarachnoid hemorrhage and iron deficiency anemia in the past (4) Demand ischemia: - trop 0.11, then 0.10 in the setting of hypoxic respiratory failure with ischemic cardiomyopathy. Patient has been pacing on the monitor and denies any chest pain. (5) Ambulatory dysfunction: Patient had multiple falls at home - PT OT evaluation with strong suggestion that she go to inpatient subacute rehab prior to discharge - patient has refused rehab with her previous admissions. We did discuss rehab options again today and I strongly encouraged her to discuss placement with case management to find a place she thinks is acceptable. (6) Code status needs review: Patient's been full code during her last admission. She also spoke to palliative care during her last admission at that time she is unclear about her future needs although she did state she did not want to come back to the hospital however she re-presented. At this time she remains a full code, palli ative is consulted (7) DVT prophylaxis: SCDs - hold chemoprophylaxis due to history of subarachnoid bleed (8) Cachexia: Boost tid Subjective Ms. Jameson continues to be sob with cough. She is at her baseline O2 needs. Review of Systems All systems reviewed & are unremarkable except as noted in HPI & below Physical Exam Vital Signs (Past 24 Hours): Last Vital Signs Temp 36.6 C 01/06/19 07:20 Pulse 86 01/06/19 07:20 Resp 28 H 01/06/19 07:20 BP 132/67 01/06/19 07:20 Pulse Ox 100 01/06/19 07:20 Physical Exam: General: no distress Eyes: normal inspection, PERLL Respiratory: chest non tender, course bilateral lung sounds, no respiratory distress, no accessory muscle use Cardiac: regular rate and rhythm, no rub or gallop, no murmur, no edema, no jvd GI/: active bowel sounds, no abd pain or tenderness, soft, non distended Extremities: normal range of motion, normal strength, non tender Neuro/Psych: alert and oriented x 3, normal mood and affect Skin: normal color, dry mucous membranes Results & Data Laboratory Results Abnormal lab results 01/06/19 01/06/19 Range/Units 05:43 05:43 RBC 3.26 L (4.2-5.4) M/uL Hgb 8.9 L (12.0-16.0) g/dL Hct 28.1 L (37-47) % MCHC 31.7 L (32-36) g/dL RDW Std Deviation 73.5 H (36.4-46.3) fL RDW Coeff of Kiana 23.9 H (11.5-14.5) % Carbon Dioxide 34 H (21-32) mmol/L BUN 47 H (7-18) mg/dl BUN/Creatinine Ratio 46.9 H (10-20) Calcium 8.2 L (8.5-10.1) mg/dl (1) Atrial fibrillation Atrial fibrillation type: chronic Qualified Code(s): I48.2 - Chronic atrial fibrillation
[2019-01-06] MEDS: FUROSEMIDE 40 MG in SYRINGE 0 ML IV SCH (08:16)
[2019-01-06] MEDS: CLOPIDOGREL BISULFATE 75 MG TAB PO SCH (08:16)
[2019-01-06] MEDS: CARVEDILOL 12.5 MG TAB PO SCH ×2 (08:16→20:15)
[2019-01-06] MEDS: POTASSIUM CHLORIDE 20 MEQ TABCR PO SCH (08:17)
[2019-01-06] MEDS: PANTOprazole 40 MG TAB PO SCH ×2 (08:17→20:15)
[2019-01-06] MEDS: predniSONE 20 MG TAB PO SCH (08:17)
[2019-01-06] MEDS: LISINOPRIL 5 MG TAB PO SCH (08:17)
[2019-01-06] MEDS: FLUTICASONE PROPIONATE NA SPR 16 GM BTL SCH (08:18)
[2019-01-06] MEDS ORDERED: ONDANSETRON INJ 2 MG/ML 2 ML VIAL IV PRN (08:35)
[2019-01-06] MEDS: LORazepam 0.5 MG TAB PO PRN ×2 (11:04→20:20)
--- NOTE | 2019-01-06 13:55 | Palliative Care Consultation ---
Date of Consultation January 06, 2019 Assessment & Plan (1) Goals of care, counseling/discussion: -73 year old female with advanced COPD on home oxygen therapy, anxiety, chronic CHF, ischemic cardiomyopathy with EF 20%, and others, presented with acute on chronic respiratory failure. Thought to be from mucous plugging. Patient improved quickly. Is on IV Lasix for volume overload, she is down 2500+ ml. Patient known to palliative service briefly during last admission just a couple weeks ago. At that time, palliative care was explained and introduced to patient, outpatient information offered to her. Patient was discharged home with her , had some weakness and falls. Palliative care is reconsulted to discuss code status and goals of care. -Met with patient today in room 215. She is awake, alert and oriented x4. She is feeling better than when she came in, and feels she is back to her baseline. -Discussed code status. Patient stated she would not want CPR or intubation in the case or cardiac or respiratory arrest. Will change to DO NOT RESUSCITATE. Patient states that her , Ike, and her other family members know her wishes. - Ike would make medical decisions for her if she were unable. -Patient verbalizes understanding that her COPD is severe and irreversible, and also has a bad heart with an EF of 20%. However, she is NOT ready to say she does not want to come back to the hospital. -POLST form discussed. I offered to come back and do POLST form when patient's is here this afternoon, patient declined and said, "He already knows what I want. I can talk to him about it when he gets here." -POLST form completed as follows: DNR, limited additional interventions, limited use of abx with comfort as the goal, trial period of IVF but no feeding tube. -Patient became anxious during our conversation. She states that she does get overwhelmed when she thinks about the future, her illness, goals of care, etc. Rang for nurse and asked for her PRN lorazepam. -Would continue lorazepam 0.5mg PO TID PRN anxiety on discharge. Patient has severe COPD and has a lot of anxiety associated with her SOB, which happens often. -In regards to discharge planning, I believe our PT/OT are recommending Rehab at SNF, but patient declines. She tells me she wants to go home and is willing for home health. -Will follow as needed. (2) Anxiety: (3) Acute and chronic respiratory failure with hypoxia: -Multifactorial: advanced/severe COPD on home oxygen therapy and EF 20% -Back to baseline. (4) Ischemic cardiomyopathy: -EF 20% (5) Cachexia: -Boost TID. Supervising Physician Co-Signing Physician Notes Chart reviewed, patient seen and examined. Collaborated with SIRENA Gould Patient known to our service from prior hospitalizations PE: Patient resting comfortably on O2 at 2 L nasal cannula Respiratory: Respirations unlabored CV: Regular rate, no edema Abdomen: Not distended Agree with above note, assessment and plan as per SIRENA Gould-we will continue to follow and assist with medical decision making as needed History of Present Illness Reason for Consultation: Goals of care, code status Requesting Physician: GENESIS Tee Attending Physician: Girma Shine MD History of Present Illness This 73 year old female with advanced COPD on home oxygen therapy, anxiety, chronic CHF, ischemic cardiomyopathy with EF 20%, and others, presented with acute on chronic respiratory failure. Thought to be from mucous plugging. Patient improved quickly. Is on IV Lasix for volume overload, she is down 2500+ ml. Patient known to palliative service briefly during last admission just a couple weeks ago. At that time, palliative care was explained and introduced to patient, outpatient information offered to her. Patient was discharged home with her , had some weakness and falls. Palliative care is reconsulted to discuss code status and goals of care. Thank you kindly for this consult. I will follow as needed. Allergies Allergy/AdvReac Type Severity Reaction Status Date / Time Sulfa (Sulfonamide Allergy Intermediate RASH Verified 01/04/19 05:57 Antibiotics) morphine AdvReac Mild GI SYMPTOMS Verified 01/04/19 05:57 Home Medications Home Medications Medication Instructions Recorded Confirmed Type albuterol sulfate 2.5 mg INHALATION Q4 PRN 10/24/18 01/04/19 History aspirin [Aspir-81] 81 mg PO HS 10/24/18 01/04/19 History atorvastatin 80 mg PO HS 10/24/18 01/04/19 History carvedilol 18.75 mg PO BID 10/24/18 01/04/19 History clopidogrel 75 mg PO QAM 10/24/18 01/04/19 History ezetimibe 10 mg PO HS 10/24/18 01/04/19 History fluticasone propionate 2 spray INTRANASAL QAM 10/24/18 01/04/19 History lisinopril 5 mg PO QAM 10/24/18 01/04/19 History potassium chloride 20 meq PO QAM 10/24/18 01/04/19 History pramipexole 0.25 mg PO HS 10/24/18 01/04/19 History sertraline 50 mg PO HS 10/24/18 01/04/19 History sodium chloride [[place] Nasal] 1 spray INTRANASAL DIRECTED PRN 10/24/18 01/04/19 History ondansetron HCl [Zofran] 4 mg PO Q6H PRN #10 tab 10/29/18 01/04/19 Rx acetaminophen [Tylenol Extra 500 mg PO Q6H PRN 12/19/18 01/04/19 History Strength] arformoterol [Brovana] 15 mcg INHALATION BIDR #120 ml 12/29/18 01/04/19 Rx furosemide [Lasix] 20 mg PO BID #0 tab 12/29/18 01/04/19 Rx ipratropium-albuterol 3 ml NEB Q4R #180 ml 12/29/18 01/04/19 Rx lorazepam 0.5 mg PO Q8H PRN #60 tab 12/29/18 01/04/19 Rx pantoprazole 40 mg PO BID #60 tab 12/29/18 01/04/19 Rx prednisone 10 mg PO UD #40 tab 12/29/18 01/04/19 Rx Patient History Family History Father , about age 80 Coronary heart disease from acute [place] Mother , age 75 Coronary heart disease had CABG; ultimately from [place] Other Heart disease Social History Communication Ability: Effective Beliefs That Will Affect Care: None marital status: Current Living Situation: Spouse Current Living Situation Comment: lives in [place]; has 3 children current occupational status: retired Other Information That Helps Us Care for You: 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[employer], 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) Feels Safe at Home: Yes Safety Concerns: Feels Safe At This Time Smoking Status: Former smoker Hx Alcohol Use: No Hx Substance Use: No Review of Systems Constitutional: + weakness (mild, generalized) Respiratory: + cough, + dyspnea and + dyspnea on exertion Cardiovascular: no chest pain and no edema Gastrointestinal: no abdominal pain, no nausea and no vomiting Musculoskeletal: no problem reported Neurologic: no confusion Psychiatric: + anxiety; no depression Physical Exam Vital Signs (Past 24 Hours): Last Vital Signs Temp 36.2 C L 01/06/19 11:12 Pulse 86 01/06/19 11:15 Resp 22 01/06/19 11:15 BP 109/56 L 01/06/19 11:12 Pulse Ox 98 01/06/19 11:15 Constitutional: + thin and + cachectic; no acute distress ENMT: external ear and nose normal, oropharynx normal Ears: no hearing impairment Neck: normal visual inspection Respiratory: normal respiratory effort and + tachypneic; + not able to speak in complete sentence Auscultation: + diminished lung sounds Cardiovascular: RRR, no murmur, no edema Gastrointestinal (Abdomen): Inspection/Auscultation: abdomen normal to inspection and normal bowel sounds Percussion/Palpation: abdomen soft; abdomen nontender Neurologic: awake; not confused Psychiatric: Orientation: alert and oriented x 3 Affect: euthymic affect and + anxious affect Time Spent Midlevel 70 minutes with >50% of time spent at bedside with patient discussing condition, GOC, and POLST form.
[2019-01-06] MEDS: ASPIRIN 81 MG ECTAB PO SCH (20:15)
[2019-01-06] MEDS: SERTRALINE HCL 50 MG TABLET PO SCH (20:15)
[2019-01-06] MEDS: PRAMIPEXOLE DIHYDROCHLO 0.25 MG TAB PO SCH (20:15)
[2019-01-07] MEDS: ALBUT/IPRATROP 3MG/0.5MG NEB 3 ML VIAL NEB SCH ×6 (03:33→23:19)
[2019-01-07] MEDS: LORazepam 0.5 MG TAB PO PRN ×2 (03:48→21:26)
[2019-01-07] MEDS: ARFORMOTEROL TART 15MCG/2ML VIAL INH SCH ×2 (07:07→19:30)
[2019-01-07 07:12] LABS: BUN Creatinine Ratio 50.4 (10-20); Calcium 8.5 mg/dl (8.5-10.1); Creatinine Clr Calc Pharmacy 36.5 ml/min; Est GFR (African American) 64.3; Est GFR (Non-African American) 55.5; Potassium 4.6 mmol/L (3.5-5.1)
[2019-01-07] MEDS: CARVEDILOL 12.5 MG TAB PO SCH ×2 (08:34→21:27)
[2019-01-07] MEDS: FLUTICASONE PROPIONATE NA SPR 16 GM BTL SCH (08:35)
[2019-01-07] MEDS: POTASSIUM CHLORIDE 20 MEQ TABCR PO SCH (08:35)
[2019-01-07] MEDS: LISINOPRIL 5 MG TAB PO SCH (08:35)
[2019-01-07] MEDS: predniSONE 20 MG TAB PO SCH (08:36)
[2019-01-07] MEDS: CLOPIDOGREL BISULFATE 75 MG TAB PO SCH (08:36)
[2019-01-07] MEDS: PANTOprazole 40 MG TAB PO SCH ×2 (08:36→21:30)
[2019-01-07] MEDS ORDERED: FUROSEMIDE 40 MG in SYRINGE 0 ML IV SCH (09:00)
--- NOTE | 2019-01-07 11:38 | Hospitalist Progress Note ---
Date of Service January 07, 2019 Assessment & Plan (1) Acute and chronic respiratory failure with hypoxia: - multifactorial - COPD with exacerbation normally requiring 2L NC at home, with EF of 20%, underlying A. fib and a paced rhythm. - Chest Xray on admission showed pulmonary vascular congestion with small effusion and bibasilar opacities likely pneumonitis vs atelectasis. Leukocytosis present on admission has resolve, no fevers. - continue her Brovana duo nebs and oral prednisone therapy, chest PT - she is currently at her baseline oxygen needs, saturating high 90s - consult palliative care - patient made DNR (2) Ischemic cardiomyopathy: - EF 20% - decrease Lasix to IV to home oral regimen. She is negative 4L for this admission - continue beta-dane, lisinopril (3) Atrial fibrillation: Patient is a paced rhythm at this time she has not been anticoagulated due to her previous history of subarachnoid hemorrhage and iron deficiency anemia in the past (4) Demand ischemia: - trop 0.11, then 0.10 in the setting of hypoxic respiratory failure with ischemic cardiomyopathy. Patient has been pacing on the monitor and denies any chest pain. (5) Ambulatory dysfunction: Patient had multiple falls at home - PT OT evaluation with strong suggestion that she go to inpatient subacute rehab prior to discharge - patient has refused rehab with her previous admissions. She continues to refuse PT/OT despite long discussion yesterday about the benefits to her. (6) Cachexia: Boost tid (7) DVT prophylaxis: SCDs - hold chemoprophylaxis due to history of subarachnoid bleed Dispo: transfer to medical Subjective Ms. Jameson continues to be at her baseline oxygen. She did participate in therapy today and felt it went ok. She is still coughing with production. No chest pain Review of Systems All systems reviewed & are unremarkable except as noted in HPI & below Physical Exam Vital Signs (Past 24 Hours): Last Vital Signs Temp 36.3 C L 01/07/19 10:54 Pulse 78 01/07/19 11:11 Resp 20 01/07/19 11:11 BP 104/64 01/07/19 10:54 Pulse Ox 98 01/07/19 11:11 Physical Exam: General: no distress Eyes: normal inspection, PERLL Respiratory: chest non tender, clear to auscultation, course breath sounds bilaterally, no accessory muscle use Cardiac: regular rate and rhythm, no rub or gallop, no murmur, no edema, no jvd GI/: active bowel sounds, no abd pain or tenderness, soft, non distended Extremities: normal range of motion, normal strength, non tender Neuro/Psych: alert and oriented x 3, normal mood and affect Skin: normal color, dry Results & Data Laboratory Results Abnormal lab results 01/07/19 Range/Units 06:33 Carbon Dioxide 36 H (21-32) mmol/L BUN 50 H (7-18) mg/dl BUN/Creatinine Ratio 50.4 H (10-20) Glucose 126 H (70-99) mg/dl (1) Atrial fibrillation Atrial fibrillation type: chronic Qualified Code(s): I48.2 - Chronic atrial fibrillation
--- NOTE | 2019-01-07 13:28 | Palliative Care Progress Note ---
Date of Service January 07, 2019 Assessment & Plan (1) Goals of care, counseling/discussion: -Patient is likely at baseline. Still SOB at rest. Was ambulating to bathroom while I was in room. Appears winded but was smiling and talking. -POLST form completed 01/06/19 as follows: DNR, limited additional interventions, limited use of abx with comfort as the goal, trial period of IVF but no feeding tube. -Would continue lorazepam 0.5mg PO TID PRN anxiety on discharge. Patient has severe COPD and has a lot of anxiety associated with her SOB, which happens often. -In regards to discharge planning, I believe our PT/OT are recommending Rehab at SNF, but patient declines. She tells me she wants to go home and is willing for home health. Still does not want hospice. -Will follow as needed. (2) Anxiety: (3) Acute and chronic respiratory failure with hypoxia: -Multifactorial: advanced/severe COPD on home oxygen therapy and EF 20% -Back to baseline. (4) Ischemic cardiomyopathy: -EF 20% (5) Cachexia: -Boost TID. Subjective No real change today. patient feels okay. Is likely at baseline, although baseline respiratory status is not great. Constitutional: + weakness (mild, generalized) Ear, Nose, Mouth, Throat: no dysphagia Respiratory: + cough, + dyspnea and + dyspnea on exertion Cardiovascular: no chest pain and no edema Gastrointestinal: no abdominal pain and no nausea Neurologic: no confusion Psychiatric: + anxiety; no depression Physical Exam Vital Signs (Past 24 Hours): Last Vital Signs Temp 36.3 C L 01/07/19 10:54 Pulse 78 01/07/19 11:11 Resp 20 01/07/19 11:11 BP 104/64 01/07/19 10:54 Pulse Ox 98 01/07/19 11:11 Constitutional: + thin and + cachectic; no acute distress ENMT: external ear and nose normal, oropharynx normal Ears: no hearing impairment Neck: normal visual inspection Respiratory: normal respiratory effort and + tachypneic; + not able to speak in complete sentence Auscultation: + diminished lung sounds Cardiovascular: RRR, no murmur, no edema Gastrointestinal (Abdomen): Inspection/Auscultation: abdomen normal to inspection and normal bowel sounds Percussion/Palpation: abdomen soft; abdomen nontender Neurologic: awake; not confused Psychiatric: Orientation: alert and oriented x 3 Affect: euthymic affect and + anxious affect Time Spent Midlevel 25 minutes with >50% of time spent at bedside with patient discussing plan of care.
[2019-01-07] MEDS: FUROSEMIDE 20 MG TAB PO SCH (16:49)
[2019-01-07] MEDS ORDERED: ATORVASTATIN 40 MG TAB PO SCH (21:00)
[2019-01-07] MEDS ORDERED: EZETIMIBE 10 MG TABLET PO SCH (21:00)
[2019-01-07] MEDS: DOCUSATE SODIUM 100 MG CAP PO SCH (21:27)
[2019-01-07] MEDS: ASPIRIN 81 MG ECTAB PO SCH (21:28)
[2019-01-07] MEDS: PRAMIPEXOLE DIHYDROCHLO 0.25 MG TAB PO SCH (21:29)
[2019-01-07] MEDS: SERTRALINE HCL 50 MG TABLET PO SCH (21:30)
[2019-01-08] MEDS: ACETAMINOPHEN 500 MG TAB PO PRN (01:51)
[2019-01-08] MEDS: ALBUT/IPRATROP 3MG/0.5MG NEB 3 ML VIAL NEB SCH ×3 (03:19→11:24)
[2019-01-08 06:43] LABS: Hematocrit (blood only) 27.7 % (37-47); Hemoglobin 8.7 g/dL (12.0-16.0); Mean Corpuscular Hgb Conc 31.4 g/dL (32-36); Mean Corpuscular Volume 87.1 fL (80-100); Mean Platelet Volume 9.1 fL (7.4-10.4); Platelet Count 177 K/uL (130-400); RDW Coefficient of Variation 23.8 % (11.5-14.5); RDW Standard Deviation 76.9 fL (36.4-46.3); Red Blood Count 3.18 M/uL (4.2-5.4); White Blood Count 7.17 K/uL (4.8-10.8)
[2019-01-08 07:02] LABS: Creatinine Clr Calc Pharmacy 40.4 ml/min; Est GFR (African American) 69.3; Est GFR (Non-African American) 59.8; Potassium 4.1 mmol/L (3.5-5.1)
[2019-01-08] MEDS: ARFORMOTEROL TART 15MCG/2ML VIAL INH SCH (07:23)
--- NOTE | 2019-01-08 08:22 | Hospitalist Progress Note ---
Date of Service January 08, 2019 Assessment & Plan (1) Acute and chronic respiratory failure with hypoxia: - multifactorial - COPD with exacerbation normally requiring 2L NC at home, with EF of 20%, underlying A. fib and a paced rhythm. - Chest Xray on admission showed pulmonary vascular congestion with small effusion and bibasilar opacities likely pneumonitis vs atelectasis. Leukocytosis present on admission has resolve, no fevers. - continue her Brovana duo nebs and oral prednisone therapy, chest PT - she is currently at her baseline oxygen needs, saturating high 90s - consult palliative care - patient made DNR (2) Ischemic cardiomyopathy: - EF 20% - decrease Lasix to IV to home oral regimen. She is negative 4L for this admission - continue beta-dane, lisinopril (3) Atrial fibrillation: Patient is a paced rhythm at this time she has not been anticoagulated due to her previous history of subarachnoid hemorrhage and iron deficiency anemia in the past (4) Demand ischemia: - trop 0.11, then 0.10 in the setting of hypoxic respiratory failure with ischemic cardiomyopathy. Patient has been pacing on the monitor and denies any chest pain. (5) Ambulatory dysfunction: Patient had multiple falls at home - PT OT evaluation with strong suggestion that she go to inpatient subacute rehab prior to discharge - patient has refused rehab with her previous admissions. She continues to refuse PT/OT despite long discussion yesterday about the benefits to her. (6) Cachexia: Boost tid (7) DVT prophylaxis: SCDs - hold chemoprophylaxis due to history of subarachnoid bleed Dispo: transfer to medical (8) Anemia: chronic - baseline hgb around 9. 8.7 today. Previous ferritin level was low. Peripheral smear shows spherocytes and target cells along with schistocytes as according to her last admission 12/22. She did require transfusion at that time - cbc am - continue iron supplementation Physical Exam Vital Signs (Past 24 Hours): Last Vital Signs Temp 37.1 C 01/08/19 07:52 Pulse 75 01/08/19 07:52 Resp 18 01/08/19 07:52 BP 118/57 L 01/08/19 07:52 Pulse Ox 98 01/08/19 07:52 (1) Atrial fibrillation Atrial fibrillation type: chronic Qualified Code(s): I48.2 - Chronic atrial fibrillation (2) Anemia Anemia type: unspecified type Qualified Code(s): D64.9 - Anemia, unspecified
[2019-01-08] MEDS: CARVEDILOL 12.5 MG TAB PO SCH (08:34)
[2019-01-08] MEDS: predniSONE 20 MG TAB PO SCH (08:34)
[2019-01-08] MEDS: CLOPIDOGREL BISULFATE 75 MG TAB PO SCH (08:34)
[2019-01-08] MEDS: PANTOprazole 40 MG TAB PO SCH (08:34)
[2019-01-08] MEDS: POTASSIUM CHLORIDE 20 MEQ TABCR PO SCH (08:34)
[2019-01-08] MEDS: DOCUSATE SODIUM 100 MG CAP PO SCH (08:34)
[2019-01-08] MEDS: LISINOPRIL 5 MG TAB PO SCH (08:35)
[2019-01-08] MEDS: FUROSEMIDE 20 MG TAB PO SCH (08:35)
[2019-01-08] MEDS: FLUTICASONE PROPIONATE NA SPR 16 GM BTL SCH (08:36)
[2019-01-08] MEDS: LORazepam 0.5 MG TAB PO PRN (08:41)
[2019-01-08] MEDS ORDERED: FERROUS SULFATE 325 MG TAB PO SCH (09:00)
--- NOTE | 2019-01-08 13:22 | XRay Report ---
SINGLE VIEW CHEST CLINICAL HISTORY: Dyspnea. FINDINGS: An AP, portable, upright chest radiograph is compared to study dated 01/04/2019 and correlat ed with chest CT dated 11/22/2018. The examination is degraded by portable technique and patient rotat ion. A 3-lead cardiac AICD is unchanged in position and partially obscures the left mid chest. The he art is enlarged and there is atherosclerotic calcification of the thoracic aorta. The pulmonary vascu lature is noncongested. Emphysema and chronic interstitial thickening are similar to previous. There is bibasilar atelectasis. No airspace consolidation or large pleural effusion is identified. No pneum othorax is seen. The skeletal structures are osteopenic. The bony thorax is grossly intact. IMPRESSION: 1. Cardiomegaly and AICD. There is no radiographic evidence of congestive failure. 2. Emphysema. 3. No airspace consolidation or large pleural effusion is identified. 4. There is improved aeration at the left lung base as compared to previous. Electronically signed by: Antonio Astorga M.D. 01/08/2019 1:21 PM
--- NOTE | 2019-01-08 13:54 | Discharge Summary ---
Date of Service January 08, 2019 Admission HPI Per Admitting Provider 73 year old female with advanced COPD on home oxygen therapy, anxiety, chronic CHF, ischemic cardiomyopathy with EF 20%, and others, presented with acute on chronic respiratory failure. This patient presented with acute respiratory failure and hypoxia. Apparently the patient was in fairly severe respiratory distress when paramedics arrived they administer nebulized medications and sign Medrol in route. Patient was also given Lasix in the ER as her assessment was clinically for heart failure. This likely was acute systolic heart failure. Patient on upon my evaluation was near her normal state she was able to be taken off of BiPAP therapy and on 3 L of oxygen her sats were in the mid 90s. Patient states that she is been doing well since discharge until yesterday when she had increased exertion. Patient has had weakness at home and falling but she does reconfirm that she refused rehabilitation inpatient last stay. She says she is having some home PT. Patient states she woke up in the middle the night acutely short of breath she denies any associated chest pain she has had no mucus production or fever During her last admission she was fairly chronically short of breath. She underwent bronchoscopy for mucoid impaction with the hopes that patient would be improved after bronchoscopy, but unfortunately she remained same with only minimal improvement. Patient at baseline is SOB at rest but becomes very dyspneic with activity. She lives at home with her who has his own health problems and has a Pleur-x catheter. During multiple readmissions the patient refused inpatient rehab. This is her third or fourth admission in the calendar year and likely will need to be more suggestive to try to have her consider rehab placement. On admission she has a skin tear on her left arm that was present she is improved but will be in telemetry for watching her tenuous respiratory status Principal Diagnosis Hypoxic respiratory failure Discharge Exam Constitutional WD/WN, vitals as above Respiratory + labored breathing course breath sounds bilaterally Cardiovascular RRR, no murmur, no edema Discharge Data Allergies Allergy/AdvReac Type Severity Reaction Status Date / Time Sulfa (Sulfonamide Allergy Intermediate RASH Verified 01/04/19 05:57 Antibiotics) morphine AdvReac Mild GI SYMPTOMS Verified 01/04/19 05:57 Consultations 01/04/19 07:15 ED Decision to Admit Stat 01/04/19 08:55 Consult Case Management - Discharge Planning Routine 01/05/19 14:59 Consult Palliative Care Routine Hospital Course (1) Acute and chronic respiratory failure with hypoxia: - multifactorial - COPD with exacerbation normally requiring 2L NC at home, with EF of 20%, underlying A. fib and a paced rhythm. - Chest Xray on admission showed pulmonary vascular congestion with small effusion and bibasilar opacities likely pneumonitis vs atelectasis. Leukocytosis present on admission has resolved, no fevers. Repeat chest xray shows resolution of vascular congestion and opacities - continue her home inhalers - will discharge with 14 day prednisone taper - she is currently at her baseline oxygen needs, saturating high 90s - consulted palliative care - patient made DNR (2) Ischemic cardiomyopathy: - EF 20% - decreased Lasix IV to home oral regimen. She is negative 3L for this admission - continue beta-dane, lisinopril (3) Atrial fibrillation: Patient is a paced rhythm at this time she has not been anticoagulated due to her previous history of subarachnoid hemorrhage and iron deficiency anemia in the past (4) Demand ischemia: - trop 0.11, then 0.10 in the setting of hypoxic respiratory failure with ischemic cardiomyopathy. Patient had been pacing on the monitor and denies any chest pain. She did have one small run of Vtach per nursing but was asymptomatic and has and ICD (5) Ambulatory dysfunction: Patient had multiple falls at home - PT OT evaluation with strong suggestion that she go to inpatient subacute rehab prior to discharge - patient has refused rehab with her previous admissions. I once again STRONGLY urged her to go to rehab instead of home this time and spent time discussing pros and cons of discharging home. She will accept home health but continues to refuse rehab. I did discuss with her that her chronic disease state is progressing and that a stay at rehab may help her to stay out of the hospital longer. She is not ready for hospice per palliative care's discussion with her. (6) Cachexia: Boost tid (7) DVT prophylaxis: SCDs - held chemoprophylaxis due to history of subarachnoid bleed (8) Anemia: chronic - baseline hgb around 9. 8.7 today. Previous ferritin level was low. Peripheral smear shows spherocytes and target cells along with schistocytes as according to her last admission 12/22. She did require transfusion at that time - will have home health draw a cbc in a few days - continue iron supplementation Total Time Total Time Spent Total Time Spent (In Minutes): greater than 30 minutes Discharge Plan Discharge Items Patient Disposition: Home - Home Health Services Reason For Visit: ACUTE RESPIRATORY FAILURE WITH HYPOXIA Discharge Diagnosis: Acute respiratory failure with hypoxia Discharge Goals: Decrease discomfort Activity: Resume your previous activity Non-emergency contact: Primary Care Provider Call non-emergency contact if: you have any medication questions and your symptoms worsen Follow-up/Referrals: Kyleigh Rice PA-C [Physician [employer]] - 01/12/19 10:30 am Diet: Heart Healthy Other Ambulatory Orders: Complete Blood Count with Diff (Routine) Timeframe: 2 Days Location: Determined by Patient Ordered By: Lucie Simons Provider Instructions: Please see your primary care provider within a week. Taper your prednisone as follows: 40mg x 2 days, 30mg x 4 days, 20mg x 4 days, 10mg x 4 days Please have home health draw your blood over the weekend or Saturday. Results will go to your pcp Prescriptions: New ferrous sulfate 325 mg (65 mg iron) Tablet,Delayed Release (Dr/Ec) 325 mg PO QAM Qty: 60 RF: 0 prednisone 20 mg Tablet 40 mg PO DAILY Qty: 16 RF: 0 Continued acetaminophen [Tylenol Extra Strength] 500 mg Tablet 500 mg PO Q6H PRN (Reason: Pain) RF: 0 Brovana 15 mcg/2 mL Solution For Nebulization 15 mcg Inhalation BIDR Qty: 120 RF: 3 ipratropium-albuterol 0.5 mg-3 mg(2.5 mg base)/3 mL Solution For Nebulization 3 ml NEB Q4R Qty: 180 RF: 3 pantoprazole 40 mg Tablet,Delayed Release (Dr/Ec) 40 mg PO BID Qty: 60 RF: 2 lorazepam 0.5 mg tablet 0.5 mg PO Q8H PRN (Reason: anxiety) Qty: 60 RF: 0 furosemide [Lasix] 40 mg Tablet 20 mg PO BID Qty: 0 RF: 0 atorvastatin 80 mg Tablet 80 mg PO HS RF: 0 carvedilol 12.5 mg Tablet 18.75 mg PO BID RF: 0 albuterol sulfate 2.5 mg /3 mL (0.083 %) Solution For Nebulization 2.5 mg INHALATION Q4 PRN (Reason: Shortness Of Breath Or Wheezing) RF: 0 clopidogrel 75 mg Tablet 75 mg PO QAM RF: 0 aspirin [Aspir-81] 81 mg Tablet,Delayed Release (Dr/Ec) 81 mg PO HS RF: 0 potassium chloride 20 mEq Tablet,Er Particles/Crystals 20 meq PO QAM RF: 0 pramipexole 0.25 mg Tablet 0.25 mg PO HS RF: 0 lisinopril 5 mg Tablet 5 mg PO QAM RF: 0 fluticasone propionate 50 mcg/actuation [place],Suspension 2 spray INTRANASAL QAM RF: 0 sertraline 50 mg Tablet 50 mg PO HS RF: 0 ezetimibe 10 mg Tablet 10 mg PO HS RF: 0 sodium chloride [[place] Nasal] 0.65 % Aerosol,[place] 1 spray INTRANASAL DIRECTED PRN (Reason: Nasal Congestion) RF: 0 ondansetron HCl [Zofran] 4 mg tablet 4 mg PO Q6H PRN (Reason: nausea and vomiting) Qty: 10 RF: 0 Discontinued prednisone 10 mg tablet 10 mg PO UD Qty: 40 RF: 0 Stand-Alone Forms: [facility] Discharge Orders: Discharge Order (Routine); Ordered 01/08/19 Ordered By: Lucie Ruby Admission Data Admit Date/Time: 01/04/19 07:24 Attending Provider: Girma Shine Admit Provider: Girma Shine Primary Care Provider: Edy Ornelas V. Other Providers: Home,Nursing Agency ; Girma Shine ; Laura Wesley Service: Medical Other Interventions: Discharge Summary Assessment (RN) Last Done: 01/08/19 14:13
== END 2019-01-08 14:37 | disposition home health service (06) | DRG 189 ==
LOC: ED 05:46 → 1E 07:24 → 2S 01-05 17:28 → 2N 01-07 11:32

== ENCOUNTER 2019-01-09 04:03 | Inpatient (IN) ==
[2019-01-09 04:47] LABS: Eosinophils # (auto) 0.01 K/uL (0-0.5); Eosinophils % (auto) 0.1 %; Hematocrit (blood only) 30.6 % (37-47); Hemoglobin 9.7 g/dL (12.0-16.0); Immature Granulocytes # (auto) 0.05 K/uL (0.00-0.02); Immature Granulocytes % (auto) 0.6 %; Lymphocytes # (auto) 0.68 K/uL (1.2-3.4); Lymphocytes % (auto) 7.9 %; Mean Corpuscular Hgb Conc 31.7 g/dL (32-36); Mean Corpuscular Volume 86.2 fL (80-100); Mean Platelet Volume 9.3 fL (7.4-10.4); Monocytes # (auto) 0.57 K/uL (0.11-0.59); Monocytes % (auto) 6.6 %; Neutrophils # (auto) 7.29 K/uL (1.4-6.5); Neutrophils % (auto) 84.8 %; Platelet Count 198 K/uL (130-400); RDW Coefficient of Variation 23.8 % (11.5-14.5); RDW Standard Deviation 74.9 fL (36.4-46.3); Red Blood Count 3.55 M/uL (4.2-5.4)
[2019-01-09 05:04] LABS: BUN Creatinine Ratio 59.9 (10-20); Creatinine Clr Calc Pharmacy 48.9 ml/min; Est GFR (African American) 86.8; Est GFR (Non-African American) 74.9; Potassium 4.2 mmol/L (3.5-5.1)
[2019-01-09 05:14] LABS: Troponin I 0.108 ng/ml (0-0.045)
[2019-01-09 05:17] LABS: Acanthocytes 1+; Anisocytosis Present; Ovalocytes 1+
--- NOTE | 2019-01-09 06:40 | XRay Report ---
XR chest 1V portable CLINICAL HISTORY: shortness of breath. COMPARISON STUDY: Chest radiograph January 08, 2019. Chest CT November 22, 2018. FINDINGS: A left subclavian biventricular pacer/AICD is in place. Small left and trace right pleural effusions are noted. There is no pneumothorax. Cardiomegaly is unchanged. Left lower lung airspace op acity with volume loss is noted. There is evidence for mild pulmonary edema. IMPRESSION: 1. Mild increase in left lower lobe airspace opacity and volume loss which may reflect consolidation or atelectasis. Radiographic follow up is recommended. 2. Small left and trace right pleural effusions. 3. Mild interstitial edema. Electronically signed by: Bora Schmitt M.D. 01/09/2019 6:38 AM
--- NOTE | 2019-01-09 06:47 | Emergency Department Note ---
Entered by Larissa Terry acting as a scribe for History of Present Illness General Chief complaint: Shortness of Breath/Dyspnea Time Seen by Provider: 01/09/19 04:13 Source: patient History of Present Illness Onset (ago): day(s) (yesterday) Location: chest Pain Consistency: + other (persistent) Quality: + other (shortness of breath) Relieved By: not by other (oxygen, nebulizer treatments) Associated symptoms: + denies other symptoms (abdominal pain, diarrhea); no chest pain and no nausea/vomiting The patient is a 73 year old female who presents to the Emergency Room with complaints of persistent shortness of breath starting yesterday. The patient states that yesterday she was discharged from the hospital. She states that they told her to restart Prednisone, which she was to do this morning. She reports that while at home she noticed that even on her normal 3L oxygen nasal cannula that she was still short of breath. She states that she tried nebulizer treatments with no relief. She reports that she tried to sleep, but was unable to. The patient states that she had her call 911 to get their opinion on what to do. She notes that EMS gave her a breathing treatment on the way here and it did not offer much relief. The patient denies abdominal pain, chest pain, nausea, vomiting, and diarrhea. Home Medications Home Medications Medication Instructions Recorded Confirmed Type albuterol sulfate 2.5 mg INHALATION Q4 PRN 10/24/18 01/09/19 History aspirin [Aspir-81] 81 mg PO 10/24/18 01/09/19 History atorvastatin 80 mg PO 10/24/18 01/09/19 History carvedilol 18.75 mg PO BID 10/24/18 01/09/19 History clopidogrel 75 mg PO M 10/24/18 01/09/19 History ezetimibe 10 mg PO 10/24/18 01/09/19 History fluticasone propionate 2 spray INTRANASAL [facility] 10/24/18 01/09/19 History lisinopril 5 mg PO M 10/24/18 01/09/19 History potassium chloride 20 meq PO QAM 10/24/18 01/09/19 History pramipexole 0.25 mg PO 10/24/18 01/09/19 History sertraline 50 mg PO 10/24/18 01/09/19 History sodium chloride [[place] Nasal] 1 spray INTRANASAL DIRECTED PRN 10/24/18 01/09/19 History ondansetron HCl [Zofran] 4 mg PO Q6H PRN #10 tab 10/29/18 01/09/19 Rx acetaminophen [Tylenol Extra 500 mg PO Q6H PRN 12/19/18 01/09/19 History Strength] Brovana 15 mcg INHALATION BIDR #120 ml 12/29/18 01/09/19 Rx furosemide [Lasix] 20 mg PO BID #0 tab 12/29/18 01/09/19 Rx ipratropium-albuterol 3 ml NEB Q4R #180 ml 12/29/18 01/09/19 Rx lorazepam 0.5 mg PO Q8H PRN #60 tab 12/29/18 01/09/19 Rx pantoprazole 40 mg PO BID #60 tab 12/29/18 01/09/19 Rx ferrous sulfate 325 mg PO QAM #60 tab 01/08/19 01/09/19 Rx prednisone 40 mg PO DAILY #16 tab 01/08/19 01/09/19 Rx Allergies Allergy/AdvReac Type Severity Reaction Status Date / Time Sulfa (Sulfonamide Allergy Intermediate RASH Verified 01/09/19 04:34 Antibiotics) morphine AdvReac Mild GI SYMPTOMS Verified 01/09/19 04:34 Past Med/Surg History Medical History Cachexia Demand ischemia Acute and chronic respiratory failure (Acute) Chronic kidney disease, stage 3a Chronic systolic (congestive) heart failure CAD (coronary artery disease) s/p [place] in 1999 Atrial fibrillation Ischemic cardiomyopathy EF 25-30% Dyslipidemia Hypertension Anxiety Anemia (Acute) COPD (chronic obstructive pulmonary disease) (Acute) CHF (congestive heart failure) (Chronic) Pulmonary congestion Non compliance w medication regimen Emphysema of lung Syncope AICD malfunction Acute on chronic systolic (congestive) heart failure Acute and chronic respiratory failure with hypercapnia Acute and chronic respiratory failure with hypoxia Ambulatory dysfunction (Acute) Elevated troponin GIB (gastrointestinal bleeding) Reflux esophagitis SAH (subarachnoid hemorrhage) Surgical History S/P carotid endarterectomy S/P carpal tunnel release S/P hysterectomy S/P implantation of automatic cardioverter/defibrillator (AICD) Family History Father , about age 80 Coronary heart disease from acute [place] Mother , age 75 Coronary heart disease had CABG; ultimately from [place] Other Heart disease Social History Preferred Language: [place] Island[place] Beliefs That Will Affect Care: None marital status: Current Living Situation: Spouse Current Living Situation Comment: lives in [place]; has 3 children current occupational status: retired other: worked in [employer] at [employer], 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 and A total of 10 systems reviewed and were otherwise negative Physical Exam Vital Signs Vital Signs - 24 hr 01/09/19 04:09 01/09/19 04:13 01/09/19 04:30 Temperature 36.8 C Temperature Source Oral Sepsis Recent Fever Within 48 Hours No Sepsis Action Taken by Nursing No Action Required Pulse Rate 93 H 98 H 81 Pulse Rate from SpO2 Sensor 93 H 81 Respiratory Rate 22 31 H 23 Blood Pressure 143/67 H 143/67 H Blood Pressure Mean 92 92 Pulse Oximetry 96 93 97 Oxygen Delivery Method Nasal Cannula Oxygen Flow Rate 3 01/09/19 05:00 Temperature Temperature Source Sepsis Recent Fever Within 48 Hours Sepsis Action Taken by Nursing Pulse Rate 79 Pulse Rate from SpO2 Sensor 75 Respiratory Rate 24 Blood Pressure Blood Pressure Mean Pulse Oximetry 99 Oxygen Delivery Method Oxygen Flow Rate General: Appears moderately short of breath. HEENT: Head - normocephalic and atraumatic Pupils are equal, round, and reactive to light. Extraocular eye muscles are intact, and sclera are anicteric. Nose - moist nasal mucosa without discharge. Mouth - moist buccal mucosa. Oropharynx is nonerythematous and there is no tonsillar exudate or edema noted. Neck: Supple; no JVD, nuchal rigidity, cervical lymphadenopathy. Heart: Regular rate and rhythm. There is a normal S1 and S2 with no murmurs, clicks, or gallops appreciated. Lungs: Diffuse inspiratory and expiratory wheezes. Diminished breath sounds at the bases. Abdomen: Soft, completely nontender, nondistended, with good bowel sounds. There are no palpable pulsatile masses or hepatosplenomegaly. There is no guarding, rigidity, or rebound noted. Extremities: No evidence of cyanosis, clubbing, or edema. There are easily palpable peripheral pulses. Skin: warm and dry with good turgor and no rashes. Course 0427: The patient was evaluated in room C4, and a complete history and physical examination were performed. Recent electronic medical records were reviewed. Laboratory studies were drawn as above. A portable chest x-ray was obtained. 0436: At this time, I reviewed the patient's records from her most recent h ospital visit. 0456: I reevaluated the patient and she states that she feels much better sitting more upright. 0518: I reevaluated the patient and updated her on her test results. She states that she feels that she needs admitted because just getting up to use the restroom she thought she was going to as she couldn't breathe. I discussed the treatment plan with her. She verbally agrees and understands. 0623: I reviewed the patient's case with Dr. Sheyla HOWARD Hospitalist. He will evaluate the patient for further management. Consultations Consultation #1: I reviewed the patient's case with Dr. Sheyla HOWARD Hospitalist. He will evaluate the patient for further management. Time: 06:23 Medical Decision Making Differential Diagnosis Differential diagnoses include CHF, COPD, pneumonia, bronchitis. Medical Records Attestation: I reviewed the patient's medical records. Home Medications Current Medication List: was personally reviewed by me Laboratory Data Attestation: I reviewed the patient's lab results. Result diagrams: 01/09/19 04:20 01/09/19 04:20 Lab Results 01/09/19 01/09/19 Range/Units 04:20 04:20 WBC 8.60 (4.8-10.8) K/uL RBC 3.55 L (4.2-5.4) M/uL Hgb 9.7 L (12.0-16.0) g/dL Hct 30.6 L (37-47) % MCV 86.2 (80-100) fL MCH 27.3 (25-34) pg MCHC 31.7 L (32-36) g/dL RDW Std Deviation 74.9 H (36.4-46.3) fL RDW Coeff of Kiana 23.8 H (11.5-14.5) % Plt Count 198 (130-400) K/uL MPV 9.3 (7.4-10.4) fL Immature Gran % (Auto) 0.6 % Neut % (Auto) 84.8 % Lymph % (Auto) 7.9 % [place] % (Auto) 6.6 % Eos % (Auto) 0.1 % Baso % (Auto) 0.0 % Immature Gran # (Auto) 0.05 H (0.00-0.02) K/uL Neut # (Auto) 7.29 H (1.4-6.5) K/uL Lymph # (Auto) 0.68 L (1.2-3.4) K/uL [place] # (Auto) 0.57 (0.11-0.59) K/uL Eos # (Auto) 0.01 (0-0.5) K/uL Baso # (Auto) 0.00 (0-0.2) K/uL Anisocytosis Present Ovalocytes 1+ Acanthocytes (Spur) 1+ Sodium 140 (136-145) mmol/L Potassium 4.2 (3.5-5.1) mmol/L Chloride 102 (98-107) mmol/L Carbon Dioxide 33 H (21-32) mmol/L Anion Gap 5.0 (3-11) BUN 47 H (7-18) mg/dl Creatinine 0.78 (0.6-1.2) mg/dl Est Cr Clr Drug Dosing 48.9 ml/min Est GFR ( Amer) 86.8 Est GFR (Non-Af Amer) 74.9 BUN/Creatinine Ratio 59.9 H (10-20) Glucose 94 (70-99) mg/dl Calcium 8.0 L (8.5-10.1) mg/dl Troponin I 0.108 H* (0-0.045) ng/ml NT-Pro-B Natriuret Pep 5361 H (0-900) pg/ml Imaging Data Attestation: I personally reviewed and interpreted this imaging study as follows: My Impression: CHEST X-RAY: The results were interpreted by me. AICD in place. Mild increased pulmonary vascular congestion. Cardiomegaly. ECG Data Attestation: I personally reviewed and interpreted this ECG as follows: Indication: SOB/dyspnea Rate (beats per minute): 96 Rhythm: other (paced ventricular rhythm) Findings: no PAC, no PVC, no ST depression, no ST elevation, no acute ischemic change and no ectopy Blood Pressure Blood Pressure Findings: Elevated blood pressure Blood Pressure Disposition: further management by hospitalist MDM Narrative The patient is a 73 year old female who presents to the Emergency Room with complaints of persistent shortness of breath starting yesterday. The patient was just discharged from the hospital after being admitted for an acute exacerbation of her COPD and an episode of acute on chronic congestive heart failure. Patient states that she did okay for a couple of hours but then noticed she had extreme shortness of breath with even slight exertion or ambulation. The patient states that she absolutely could not breathe and urged her to call 911. On laboratory studies, the patient's BNP has decreased slightly but her troponin has increased. Chest x-ray shows a very slight increase in fluid overload. I discussed the case with the [facility] Hospitalist and they will evaluate for further management. Impression & Plan COPD exacerbation, CHF (congestive heart failure) Discharge Plan Visit Data Chief Complaint: Shortness of Breath/Dyspnea ED Provider: Radha Lindo Discharge Problem: COPD exacerbation, CHF (congestive heart failure) Patient Disposition: Being Evaluated by Hospitalist Forms Stand Alone Forms: My [facility] Prescriptions Prescriptions: No Action acetaminophen [Tylenol Extra Strength] 500 mg Tablet 500 mg PO Q6H PRN (Reason: Pain) RF: 0 Brovana 15 mcg/2 mL Solution For Nebulization 15 mcg Inhalation BIDR Qty: 120 RF: 3 ipratropium-albuterol 0.5 mg-3 mg(2.5 mg base)/3 mL Solution For Nebulization 3 ml NEB Q4R Qty: 180 RF: 3 pantoprazole 40 mg Tablet,Delayed Release (Dr/Ec) 40 mg PO BID Qty: 60 RF: 2 lorazepam 0.5 mg tablet 0.5 mg PO Q8H PRN (Reason: anxiety) Qty: 60 RF: 0 furosemide [Lasix] 40 mg Tablet 20 mg PO BID Qty: 0 RF: 0 ferrous sulfate 325 mg (65 mg iron) Tablet,Delayed Release (Dr/Ec) 325 mg PO QAM Qty: 60 RF: 0 prednisone 20 mg Tablet 40 mg PO DAILY Qty: 16 RF: 0 atorvastatin 80 mg Tablet 80 mg PO HS RF: 0 carvedilol 12.5 mg Tablet 18.75 mg PO BID RF: 0 albuterol sulfate 2.5 mg /3 mL (0.083 %) Solution For Nebulization 2.5 mg INHALATION Q4 PRN (Reason: Shortness Of Breath Or Wheezing) RF: 0 clopidogrel 75 mg Tablet 75 mg PO QAM RF: 0 aspirin [Aspir-81] 81 mg Tablet,Delayed Release (Dr/Ec) 81 mg PO HS RF: 0 potassium chloride 20 mEq Tablet,Er Particles/Crystals 20 meq PO QAM RF: 0 pramipexole 0.25 mg Tablet 0.25 mg PO HS RF: 0 lisinopril 5 mg Tablet 5 mg PO QAM RF: 0 fluticasone propionate 50 mcg/actuation [place],Suspension 2 spray INTRANASAL QAM RF: 0 sertraline 50 mg Tablet 50 mg PO HS RF: 0 ezetimibe 10 mg Tablet 10 mg PO HS RF: 0 sodium chloride [[place] Nasal] 0.65 % Aerosol,[place] 1 spray INTRANASAL DIRECTED PRN (Reason: Nasal Congestion) RF: 0 ondansetron HCl [Zofran] 4 mg tablet 4 mg PO Q6H PRN (Reason: nausea and vomiting) Qty: 10 RF: 0 Referrals Referrals: Edy Ornelas MD [Primary Care Provider] - Discharge Problem: CHF (congestive heart failure) Qualifiers: Heart failure type: unspecified Heart failure chronicity: unspecified Qualified Code(s): I50.9 - Heart failure, unspecified The scribe's documentation has been prepared under my direction and personally reviewed by me in its entirety. I confirm that the note above accurately reflects all work, treatment, procedures, and medical decision making performed by me.
--- NOTE | 2019-01-09 07:20 | History & Physical Report ---
Date of Service January 09, 2019 Assessment & Plan (1) Acute and chronic respiratory failure: Acute on chronic respiratory failure/combination of COPD exacerbation and CHF exacerbation-- Present on Admission?: Yes (2) COPD exacerbation: Continue Brovana, fluticasone nasal spray and [place] nasal spray. Hold prednisone taper, and placed on Solu-Medrol 40 mg IV every 8 hours, and Pulmicort Respules 0.5 mg inhaled twice daily. Change nebulizers to DuoNeb's 4 times daily with every 2 hours as needed. Continue nasal canula 5l O2, keep pulse ox approximately 92%. Present on Admission?: Yes (3) Chronic systolic (congestive) heart failure: On Lasix 20 mg p.o. twice daily as outpatient. Give Lasix 40 mg IV in the ED, and adjust dosing based on her response. Present on Admission?: Yes (4) CAD (coronary artery disease): CAD/hypertension/ischemic cardiomyopathy/demand ischemia-- Troponin 0.108 admission, at yesterday was 0.101. Follow serial laboratories. Continue aspirin 81 mg daily, atorvastatin 80 mg daily, carvedilol 18.75 mg p.o. twice daily, lisinopril 5 mg p.o. daily clopidogrel 70 mg p.o. every morning and Zetia 10 mg p.o. daily. Present on Admission?: Yes (5) Demand ischemia: As above. Present on Admission?: Yes (6) Ischemic cardiomyopathy: As above. Present on Admission?: Yes (7) Cachexia: Consult palliative care again regarding goals as discussed at discharge yesterday Present on Admission?: Yes (8) Chronic kidney disease, stage 3a: Follow serial laboratories Present on Admission?: Yes History of Present Illness Chief Complaint: The patient presents with shortness of breath at rest and dyspnea on exertion upon walking back and forth from the bathroom overnight. Primary Care Provider: Edy Ornelas MD The patient is a 73-year-old female with a past medical history including hospitalizations this year from 10/24-10/29, 11/22-12/01, 12/19-12/29, and 01/04-01/08, due to COPD exacerbations, congestive heart failure exacerbations and acute on chronic respiratory failure. She did have a palliative care consult during last admission. Her cough sounds more readily at this point, is more suggestive of a COPD exacerbation/URI. Allergies Allergy/AdvReac Type Severity Reaction Status Date / Time Sulfa (Sulfonamide Allergy Intermediate RASH Verified 01/09/19 04:34 Antibiotics) morphine AdvReac Mild GI SYMPTOMS Verified 01/09/19 04:34 Home Medications Home Medications Medication Instructions Recorded Confirmed Type albuterol sulfate 2.5 mg INHALATION Q4 PRN 10/24/18 01/09/19 History aspirin [Aspir-81] 81 mg PO HS 10/24/18 01/09/19 History atorvastatin 80 mg PO HS 10/24/18 01/09/19 History carvedilol 18.75 mg PO BID 10/24/18 01/09/19 History clopidogrel 75 mg PO QAM 10/24/18 01/09/19 History ezetimibe 10 mg PO HS 10/24/18 01/09/19 History fluticasone propionate 2 spray INTRANASAL QAM 10/24/18 01/09/19 History lisinopril 5 mg PO QAM 10/24/18 01/09/19 History potassium chloride 20 meq PO QAM 10/24/18 01/09/19 History pramipexole 0.25 mg PO HS 10/24/18 01/09/19 History sertraline 50 mg PO HS 10/24/18 01/09/19 History sodium chloride [[place] Nasal] 1 spray INTRANASAL DIRECTED PRN 10/24/18 01/09/19 History ondansetron HCl [Zofran] 4 mg PO Q6H PRN #10 tab 10/29/18 01/09/19 Rx acetaminophen [Tylenol Extra 500 mg PO Q6H PRN 12/19/18 01/09/19 History Strength] Brovana 15 mcg INHALATION BIDR #120 ml 12/29/18 01/09/19 Rx furosemide [Lasix] 20 mg PO BID #0 tab 12/29/18 01/09/19 Rx ipratropium-albuterol 3 ml NEB Q4R #180 ml 12/29/18 01/09/19 Rx lorazepam 0.5 mg PO Q8H PRN #60 tab 12/29/18 01/09/19 Rx pantoprazole 40 mg PO BID #60 tab 12/29/18 01/09/19 Rx ferrous sulfate 325 mg PO QAM #60 tab 01/08/19 01/09/19 Rx prednisone 40 mg PO DAILY #16 tab 01/08/19 01/09/19 Rx Past Med/Surg History Medical History Cachexia Demand ischemia Acute and chronic respiratory failure (Acute) Chronic kidney disease, stage 3a Chronic systolic (congestive) heart failure CAD (coronary artery disease) s/p [place] in 1999 Atrial fibrillation Ischemic cardiomyopathy EF 25-30% Dyslipidemia Hypertension Anxiety Anemia (Acute) COPD (chronic obstructive pulmonary disease) (Acute) CHF (congestive heart failure) (Chronic) Pulmonary congestion Non compliance w medication regimen Emphysema of lung Syncope AICD malfunction Acute on chronic systolic (congestive) heart failure Acute and chronic respiratory failure with hypercapnia Acute and chronic respiratory failure with hypoxia Ambulatory dysfunction (Acute) Elevated troponin GIB (gastrointestinal bleeding) Reflux esophagitis SAH (subarachnoid hemorrhage) Surgical History S/P carotid endarterectomy S/P carpal tunnel release S/P hysterectomy S/P implantation of automatic cardioverter/defibrillator (AICD) Family History Father , about age 80 Coronary heart disease from acute [place] Mother , age 75 Coronary heart disease had CABG; ultimately from [place] Other Heart disease Social History Preferred Language: [place] Beliefs That Will Affect Care: None marital status: Current Living Situation: Spouse Current Living Situation Comment: lives in [place]; has 3 children 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[employer], 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 The review of systems is otherwise negative other than for that already noted above, and at least 10 systems have been reviewed. Physical Exam Vital Signs (Past 24 Hours): Last Vital Signs Temp 36.8 C 01/09/19 04:13 Pulse 79 01/09/19 05:00 Resp 24 01/09/19 05:00 BP 143/67 H 01/09/19 04:13 Pulse Ox 99 01/09/19 05:00 Physical Exam: The patient is awake, alert and oriented 3, cachectic appearing, normocephalic and atraumatic, lying in bed and in no acute distress. HEENT--PERRL, EOMI, mucous membranes and oropharynx normal. Neck--supple. No JVD. No bruits. Thyroid normal, trachea midline, no adenopathy. Heart--normal S1 and S2. No murmurs, rubs or gallops. Lungs--coarse breath sounds with wheezes bilaterally. No respiratory distress, no accessory muscle use. Abdomen--normal bowel sounds and soft. Nontender. Nondistended, no hernias or masses, no organomegaly. Extremities--no cyanosis or clubbing. No edema. There are good distal pulses b/l. Dermatologic--normal skin turgor. Diffuse ecchymoses Neurologic--cranial nerves II through XII grossly intact. Rheumatologic--normal range of motion. Psychiatric--normal affect. Results & Data Laboratory Results Laboratory Results WBC 8.60 K/uL (4.8-10.8) 01/09/19 04:20 RBC 3.55 M/uL (4.2-5.4) L 01/09/19 04:20 Hgb 9.7 g/dL (12.0-16.0) L 01/09/19 04:20 Hct 30.6 % (37-47) L 01/09/19 04:20 MCV 86.2 fL (80-100) 01/09/19 04:20 MCH 27.3 pg (25-34) 01/09/19 04:20 MCHC 31.7 g/dL (32-36) L 01/09/19 04:20 RDW Std Deviation 74.9 fL (36.4-46.3) H 01/09/19 04:20 RDW Coeff of Kiana 23.8 % (11.5-14.5) H 01/09/19 04:20 Plt Count 198 K/uL (130-400) 01/09/19 04:20 MPV 9.3 fL (7.4-10.4) 01/09/19 04:20 Immature Gran % (Auto) 0.6 % 01/09/19 04:20 Neut % (Auto) 84.8 % 01/09/19 04:20 Lymph % (Auto) 7.9 % 01/09/19 04:20 [place] % (Auto) 6.6 % 01/09/19 04:20 Eos % (Auto) 0.1 % 01/09/19 04:20 Baso % (Auto) 0.0 % 01/09/19 04:20 Immature Gran # (Auto) 0.05 K/uL (0.00-0.02) H 01/09/19 04:20 Neut # (Auto) 7.29 K/uL (1.4-6.5) H 01/09/19 04:20 Lymph # (Auto) 0.68 K/uL (1.2-3.4) L 01/09/19 04:20 [place] # (Auto) 0.57 K/uL (0.11-0.59) 01/09/19 04:20 Eos # (Auto) 0.01 K/uL (0-0.5) 01/09/19 04:20 Baso # (Auto) 0.00 K/uL (0-0.2) 01/09/19 04:20 Anisocytosis Present 01/09/19 04:20 Ovalocytes 1+ 01/09/19 04:20 Acanthocytes (Spur) 1+ 01/09/19 04:20 Sodium 140 mmol/L (136-145) 01/09/19 04:20 Potassium 4.2 mmol/L (3.5-5.1) 01/09/19 04:20 Chloride 102 mmol/L (98-107) 01/09/19 04:20 Carbon Dioxide 33 mmol/L (21-32) H 01/09/19 04:20 Anion Gap 5.0 (3-11) 01/09/19 04:20 BUN 47 mg/dl (7-18) H 01/09/19 04:20 Creatinine 0.78 mg/dl (0.6-1.2) 01/09/19 04:20 Est Cr Clr Drug Dosing 48.9 ml/min 01/09/19 04:20 Est GFR ( Amer) 86.8 01/09/19 04:20 Est GFR (Non-Af Amer) 74.9 01/09/19 04:20 BUN/Creatinine Ratio 59.9 (10-20) H 01/09/19 04:20 Glucose 94 mg/dl (70-99) 01/09/19 04:20 Calcium 8.0 mg/dl (8.5-10.1) L 01/09/19 04:20 Troponin I 0.108 ng/ml (0-0.045) H* 01/09/19 04:20 NT-Pro-B Natriuret Pep 5361 pg/ml (0-900) H 01/09/19 04:20 Diagnostic Findings [place], [place] [phone] XRay Report Patient: CHARO EAGLE Date: 01/09/19 MR#: [id number] Acct ID:[id number]: [facility] Zip[facility] [place] [address] Age: 73Location: ED Sex: F Room/Bed: Att Phy: Diagnosis: SOB Shona Phy: RV. Grace, MDService Date: 01/09/19 Fam Phy: Interpreting Phy: Bora Schmitt MD Admit Phy: Ordering Phy: Radha Lindo D.O. cc: ~ XR chest 1V portable CLINICAL HISTORY: shortness of breath. COMPARISON STUDY: Chest radiograph January 08, 2019. Chest CT November 22, 2018. FINDINGS: A left subclavian biventricular pacer/AICD is in place. Small left and trace right pleural effusions are noted. There is no pneumothorax. Cardiomegaly is unchanged. Left lower lung airspace opacity with volume loss is noted. There is evidence for mild pulmonary edema. IMPRESSION: 1. Mild increase in left lower lobe airspace opacity and volume loss which may reflect consolidation or atelectasis. Radiographic follow up is recommended. 2. Small left and trace right pleural effusions. 3. Mild interstitial edema. Electronically signed by: Bora Schmitt M.D. 01/09/2019 6:38 AM Code Status & VTE Plan Code Status DO NOT RESUSCITATE VTE Prophylaxis Plan VTE Prophylaxis will be ordered: Yes (1) Acute and chronic respiratory failure Respiratory failure complication: unspecified whether with hypoxia or hypercapnia Qualified Code(s): J96.20 - Acute and chronic respiratory failure, unspecified whether with hypoxia or hypercapnia (2) CAD (coronary artery disease) Coronary Disease-Associated Artery/Lesion type: [place] artery [place] vs. transplanted heart: [place] heart Associated angina: without angina Qualified Code(s): I25.10 - Atherosclerotic heart disease of [place] coronary artery without angina pectoris
[2019-01-09] MEDS ORDERED: ALUMINUM/MAGNESIUM SUSP 30 ML UDC PO PRN (08:17)
[2019-01-09] MEDS ORDERED: NITROGLYCERIN SL 0.4 MG/TAB TAB SL PRN (08:17)
[2019-01-09] MEDS ORDERED: SODIUM CHLORIDE 0.65% NA SOLN 45 ML (OCEAN) NAE PRN (08:17)
[2019-01-09] MEDS ORDERED: ONDANSETRON 4 MG OD TAB PO PRN (08:17)
[2019-01-09] MEDS ORDERED: POLYETHYLENE (MIRALAX) 17 GM PACK PO PRN (08:17)
[2019-01-09] MEDS ORDERED: ACETAMINOPHEN 1000 MG/100 ML IV IV PRN (08:17)
[2019-01-09] MEDS ORDERED: ONDANSETRON INJ 2 MG/ML 2 ML VIAL IV PRN (08:17)
[2019-01-09] MEDS ORDERED: MAGNESIUM HYDROXIDE SUSP 30 ML UDC PO PRN (08:17)
[2019-01-09] MEDS ORDERED: FUROSEMIDE 40 MG/4 ML VIAL IV STA (08:17)
[2019-01-09] MEDS ORDERED: ACETAMINOPHEN 500 MG TAB PO PRN (08:17)
[2019-01-09] MEDS ORDERED: ACETAMINOPHEN 325 MG TAB PO PRN (08:17)
[2019-01-09] MEDS: ALBUT/IPRATROP 3MG/0.5MG NEB 3 ML VIAL NEB SCH ×4 (08:44→20:36)
[2019-01-09] MEDS: ARFORMOTEROL TART 15MCG/2ML VIAL INH SCH ×2 (08:44→20:36)
[2019-01-09] MEDS: BUDESONIDE 0.5 MG/2 ML VIAL (PULMICORT) NEB SCH ×2 (08:44→20:36)
[2019-01-09] MEDS ORDERED: HEPARIN SOD 5,000 UNIT/0.5 ML VIAL SQ SCH (09:00)
[2019-01-09] MEDS ORDERED: FUROSEMIDE 40 MG in SYRINGE 0 ML IV ONE (09:00)
[2019-01-09] MEDS ORDERED: CARVEDILOL 6.25 MG TAB PO SCH (09:00)
[2019-01-09] MEDS: POTASSIUM CHLORIDE 20 MEQ TABCR PO SCH (09:20)
[2019-01-09] MEDS: CLOPIDOGREL BISULFATE 75 MG TAB PO SCH (09:20)
[2019-01-09] MEDS: FLUTICASONE PROPIONATE NA SPR 16 GM BTL NAE SCH (09:20)
[2019-01-09] MEDS: LISINOPRIL 5 MG TAB PO SCH (09:20)
[2019-01-09] MEDS: FERROUS SULFATE 325 MG TAB PO SCH (09:20)
[2019-01-09] MEDS: methylPREDNISolone 40 MG in SYRINGE 0 ML IV SCH ×2 (09:20→17:18)
[2019-01-09] MEDS: guaiFENesin 600 MG TABCR PO SCH ×2 (09:20→20:18)
[2019-01-09] MEDS: PANTOprazole 40 MG TAB PO SCH ×2 (09:20→20:17)
--- NOTE | 2019-01-09 10:47 | Hospitalist Progress Note ---
Date of Service January 09, 2019 Assessment & Plan (1) Acute and chronic respiratory failure: Acute on chronic respiratory failure/combination of COPD exacerbation and CHF exacerbation -- (2) CAD (coronary artery disease): CAD/hypertension/ischemic cardiomyopathy/demand ischemia-- Troponin 0.108 admission, at yesterday was 0.101, bumped to 0.12 today - per note from last february from Dr. Flynn: "Even if her symptom at home was secondary to myocardial ischemia would not perform an invasive cardiac procedure. She is at very high risk for any invasive procedures. Would reserve an invasive cardiac procedure (i.e.,cardiac catheterization, PCI) for a life-threatening episode of myocardialischemia/infarction." - Will attempt to maximize her antianginal therapy starting with increasing her carvedilol. It's possible that her sob could be partly due to her ischemic cardiomyopathy. She continues to deny any chest pain. Looking back through her past troponins, she is frequently elevated around this level. Continue aspirin 81 mg daily, atorvastatin 80 mg daily, carvedilol, lisinopril 5 mg p.o. daily clopidogrel 70 mg p.o. every morning and Zetia 10 mg p.o. daily. - consult cardiology (3) COPD exacerbation: Continue Brovana, fluticasone nasal spray and [place] nasal spray. Continue Solu-Medrol 40 mg IV every 8 hours, and Pulmicort Respules 0.5 mg inhaled twice daily. Change nebulizers to DuoNeb's 4 times daily with every 2 hours as needed. Titrate oxygen, keep pulse ox approximately 92%. (4) Chronic systolic (congestive) heart failure: continue home lasix 20 mg bid Give Lasix 40 mg IV in the ED, and adjust dosing based on her response. (5) Demand ischemia: As above. (6) Ischemic cardiomyopathy: As above. (7) Cachexia: boost tid (8) Chronic kidney disease, stage 3a: Follow serial laboratories (9) Anemia: continue iron supplementation (10) DVT prophylaxis: SCDs, no chemoprophylaxis for history of subarachnoid bleed. Dispo: Patient has agreed to a referral to [facility]. At this point she is not ready to talk about hospice. Palliative care was involved with her during the last admission and we may need to get them on board again. Subjective Ms. Jameson returned to the ED today after being discharged yesterday. She is still very sob. No chest pain. Productive moist cough Review of Systems All systems reviewed & are unremarkable except as noted in HPI & below Physical Exam Vital Signs (Past 24 Hours): Last Vital Signs Temp 36.6 C 01/09/19 08:17 Pulse 79 01/09/19 08:45 Resp 20 01/09/19 08:45 BP 125/65 01/09/19 08:17 Pulse Ox 97 01/09/19 08:45 Physical Exam: General: no distress Eyes: normal inspection, PERLL Respiratory: chest non tender, course bilaterally, no respiratory distress, no accessory muscle use Cardiac: regular rate and rhythm, no rub or gallop, no murmur, no edema, no jvd GI/: active bowel sounds, no abd pain or tenderness, soft, non distended Extremities: normal range of motion, normal strength, non tender Neuro/Psych: alert and oriented x 3, normal mood and affect Skin: normal color, dry Results & Data Laboratory Results Abnormal lab results 01/09/19 01/09/19 01/09/19 Range/Units 04:20 04:20 08:28 RBC 3.55 L (4.2-5.4) M/uL Hgb 9.7 L (12.0-16.0) g/dL Hct 30.6 L (37-47) % MCHC 31.7 L (32-36) g/dL RDW Std Deviation 74.9 H (36.4-46.3) fL RDW Coeff of Kiana 23.8 H (11.5-14.5) % Immature Gran # (Auto) 0.05 H (0.00-0.02) K/uL Neut # (Auto) 7.29 H (1.4-6.5) K/uL Lymph # (Auto) 0.68 L (1.2-3.4) K/uL Carbon Dioxide 33 H (21-32) mmol/L BUN 47 H (7-18) mg/dl BUN/Creatinine Ratio 59.9 H (10-20) Calcium 8.0 L (8.5-10.1) mg/dl Troponin I 0.108 H* 0.120 H* (0-0.045) ng/ml NT-Pro-B Natriuret Pep 5361 H (0-900) pg/ml (1) Acute and chronic respiratory failure Respiratory failure complication: unspecified whether with hypoxia or hypercapnia Qualified Code(s): J96.20 - Acute and chronic respiratory failure, unspecified whether with hypoxia or hypercapnia (2) CAD (coronary artery disease) Associated angina: without angina Coronary Disease-Associated Artery/Lesion type: [place] artery [place] vs. transplanted heart: [place] heart Qualified Code(s): I25.10 - Atherosclerotic heart disease of [place] coronary artery without angina pectoris (3) Anemia Anemia type: unspecified type Qualified Code(s): D64.9 - Anemia, unspecified
[2019-01-09] MEDS ORDERED: CARVEDILOL 3.125 MG TAB PO ONE (10:57)
--- NOTE | 2019-01-09 14:46 | Cardiology Consultation ---
Date of Consultation January 09, 2019 Assessment & Plan (1) Acute and chronic respiratory failure: This hospitalization represents the 5th admission this year. Likely secondary to a combination of her longstanding COPD/emphysema and her chronic combined CHF. She seems well compensated at this time. (2) CHF (congestive heart failure): The patient carries a history of chronic combined systolic and diastolic CHF. She is typically on a regimen of carvedilol 18.75 mg b.i.d., lisinopril 5 mg daily, and Lasix 20 mg b.i.d.. Physical examination today does not reveal hypervolemia. Would continue current medical regimen. Could consider a change from lisinopril to Entresto once she stabilizes. (3) Ischemic cardiomyopathy: Left ventricular ejection fraction in November 2016 was 25-30%. (4) CAD (coronary artery disease): She has a history of inferior myocardial infarction which occurred in 1999. Coronary anatomy as outlined above. She is not a good candidate for an invasive strategy realizing her numerous comorbidities and poor nutritional state. Continue conservative medical care. (5) Atrial fibrillation: The patient does not take long-term anticoagulation due to her history of a subarachnoid hemorrhage in May 2017. History of Present Illness Attending Physician: Negro West MD History of Present Illness Mrs Jameson is a 73-year-old white female with a complex past medical history who was admitted earlier today with acute on chronic respiratory failure. This consultation was ordered to system her cardiac management. Of note, the patient typically follows with Dr. Flynn in the outpatient setting. The patient was just discharged home yesterday after a hospitalization for acute on chronic respiratory failure likely related to a combination of COPD/emphysema exacerbation, and her chronic combined CHF. The patient explains that she became acutely short of breath this morning an attempted to use her nebulizer with no effect. She eventually called 911 as her symptoms continue to progress. This admission represents her 5th admission this year due to acute on chronic respiratory failure. The patient has a known history of combined CHF and attempts to follow daily weights at home and use sliding scale diuretics. Fortunately, there has not been any recent weight gain. She also carries a history of coronary artery disease having suffered an inferio r myocardial infarction in 1999. She has a resultant ischemic cardiomyopathy with an ejection fraction of 25-30% a cardiac catheterization performed at the time of her infarction noted a 20% proximal LAD, 40% diagonal branch, 40% RCA, and a 99% LCx which could not be crossed with a wire. Medical management has been suggested. The patient does not experience exertional angina pectoris. She further denies syncope, presyncope, PND, change in her 3 pillow orthopnea, lower extremity edema, and claudication. Currently, patient is resting comfortably in bed without complaints. Past medical and surgical history 1. Coronary artery disease-see above 2. Ischemic ttyubipijlgdlh-51-34% 3. Biventricular ICD-February 2012, February 2017 4. Paroxysmal atrial fibrillation-no anticoagulation secondary to subarachnoid hemorrhage 5. Chronic combined CHF 6. Hypertension 7. Hypercholesterolemia 8. Chronic renal failure 9. COPD/emphysema 10. Chronic respiratory failure 11. GERD 12. History of GI bleed 13. Subarachnoid hemorrhage-May 2017 14. Anxiety 15. Vitamin-D deficiency 16. Left carotid endarterectomy 17. Right iliofemoral endarterectomy-April 2013 18. SFA/popliteal angioplasty-April 2013 19. SMA stent-April 2017 20. Carpal tunnel release 21. SCOT/BSO 22. DNR Social history and lives with her Quit tobacco 1 year ago, 50 pack year history No alcohol Family history Father at age 80 from an [place] Mother at age 75 from an [place] Review of systems Ten point review of systems was undertaken and negative except for that described above. Allergies Allergy/AdvReac Type Severity Reaction Status Date / Time Sulfa (Sulfonamide Allergy Intermediate RASH Verified 01/09/19 04:34 Antibiotics) morphine AdvReac Mild GI SYMPTOMS Verified 01/09/19 04:34 Home Medications Home Medications Medication Instructions Recorded Confirmed Type albuterol sulfate 2.5 mg INHALATION Q4 PRN 10/24/18 01/09/19 History aspirin [Aspir-81] 81 mg PO HS 10/24/18 01/09/19 History atorvastatin 80 mg PO HS 10/24/18 01/09/19 History carvedilol 18.75 mg PO BID 10/24/18 01/09/19 History clopidogrel 75 mg PO QAM 10/24/18 01/09/19 History ezetimibe 10 mg PO HS 10/24/18 01/09/19 History fluticasone propionate 2 spray INTRANASAL QAM 10/24/18 01/09/19 History lisinopril 5 mg PO QAM 10/24/18 01/09/19 History potassium chloride 20 meq PO QAM 10/24/18 01/09/19 History pramipexole 0.25 mg PO HS 10/24/18 01/09/19 History sertraline 50 mg PO HS 10/24/18 01/09/19 History sodium chloride [[place] Nasal] 1 spray INTRANASAL DIRECTED PRN 10/24/18 01/09/19 History ondansetron HCl [Zofran] 4 mg PO Q6H PRN #10 tab 10/29/18 01/09/19 Rx acetaminophen [Tylenol Extra 500 mg PO Q6H PRN 12/19/18 01/09/19 History Strength] Brovana 15 mcg INHALATION BIDR #120 ml 12/29/18 01/09/19 Rx furosemide [Lasix] 20 mg PO BID #0 tab 12/29/18 01/09/19 Rx ipratropium-albuterol 3 ml NEB Q4R #180 ml 12/29/18 01/09/19 Rx lorazepam 0.5 mg PO Q8H PRN #60 tab 12/29/18 01/09/19 Rx pantoprazole 40 mg PO BID #60 tab 12/29/18 01/09/19 Rx ferrous sulfate 325 mg PO QAM #60 tab 01/08/19 01/09/19 Rx prednisone 40 mg PO DAILY #16 tab 01/08/19 01/09/19 Rx Patient History Medical History Cachexia Demand ischemia Acute and chronic respiratory failure (Acute) Chronic kidney disease, stage 3a Chronic systolic (congestive) heart failure CAD (coronary artery disease) s/p [place] in 1999 Atrial fibrillation Ischemic cardiomyopathy EF 25-30% Dyslipidemia Hypertension Anxiety Anemia (Acute) COPD (chronic obstructive pulmonary disease) (Acute) CHF (congestive heart failure) (Chronic) Pulmonary congestion Non compliance w medication regimen Emphysema of lung Syncope AICD malfunction Acute on chronic systolic (congestive) heart failure Acute and chronic respiratory failure with hypercapnia Acute and chronic respiratory failure with hypoxia Ambulatory dysfunction (Acute) Elevated troponin GIB (gastrointestinal bleeding) Reflux esophagitis SAH (subarachnoid hemorrhage) Surgical History S/P carotid endarterectomy S/P carpal tunnel release S/P hysterectomy S/P implantation of automatic cardioverter/defibrillator (AICD) Family History Father , about age 80 Coronary heart disease from acute [place] Mother , age 75 Coronary heart disease had CABG; ultimately from [place] Other Heart disease Social History Communication Ability: Effective Beliefs That Will Affect Care: None marital status: Current Living Situation: Spouse Current Living Situation Comment: lives in [place]; has 3 children current occupational status: retired Other Information That Helps Us Care for You: 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 HEENT exam is negative. Neck is supple with full carotid upstrokes. No obvious bruits. Jugular venous pressure is flat at 90 degrees. No thyromegaly. Well-healed scar on the left neck. Cardiovascular exam reveals a regular rhythm with a normal S1-S2. A 1/6 basal systolic ejection murmur is noted. No S3. Chest reveals a palpable device in the left subclavicular region. Lungs note distant breath sounds with expiratory wheezing. No rales. Abdomen is soft without bruits. Extremities reveal intact radial artery pulses bilaterally. There is no peripheral edema. Results & Data Laboratory Results CBC notes a hemoglobin of 9.7, medical 30.6, white count 8.6, and a platelet count of [id number]. Electrolytes notice sodium of 140, potassium 4.2, chloride 102, bicarb 38, BUN 47, creatinine 0.78, glucose of 94. Troponin I level 0.108 with a follow-up value of 0.12. BNP is elevated 5361. Diagnostic Findings EKG notes atrial sensing and ventricular pacing. Chest x-ray notes cardiomegaly, small pleural effusions, and evidence of a defibrillator. awake overnight monitor notes appropriate pacing. (1) Acute and chronic respiratory failure Respiratory failure complication: unspecified whether with hypoxia or hypercap stella Qualified Code(s): J96.20 - Acute and chronic respiratory failure, unspecified whether with hypoxia or hypercapnia (2) CAD (coronary artery disease) Associated angina: without angina Coronary Disease-Associated Artery/Lesion type: [place] artery [place] vs. transplanted heart: [place] heart Qualified Code(s): I25.10 - Atherosclerotic heart disease of [place] coronary artery without angina pectoris (3) CHF (congestive heart failure) Heart failure chronicity: chronic Heart failure type: systolic Qualified Code(s): I50.22 - Chronic systolic (congestive) heart failure (4) Atrial fibrillation Atrial fibrillation type: chronic Qualified Code(s): I48.2 - Chronic atrial fibrillation
[2019-01-09] MEDS: ASPIRIN 81 MG ECTAB PO SCH (20:15)
[2019-01-09] MEDS: CARVEDILOL 6.25 MG TAB PO SCH (20:15)
[2019-01-09] MEDS: FUROSEMIDE 20 MG TAB PO SCH (20:17)
[2019-01-09] MEDS: ATORVASTATIN 40 MG TAB PO SCH (20:17)
[2019-01-09] MEDS: EZETIMIBE 10 MG TABLET PO SCH (20:17)
[2019-01-09] MEDS: SERTRALINE HCL 50 MG TABLET PO SCH (20:18)
[2019-01-09] MEDS: PRAMIPEXOLE DIHYDROCHLO 0.25 MG TAB PO SCH (20:18)
[2019-01-09] MEDS: LORazepam 0.5 MG TAB PO PRN (20:21)
[2019-01-10] MEDS: methylPREDNISolone 40 MG in SYRINGE 0 ML IV SCH ×3 (00:48→18:09)
[2019-01-10] MEDS: ARFORMOTEROL TART 15MCG/2ML VIAL INH SCH ×2 (06:50→19:59)
[2019-01-10] MEDS: BUDESONIDE 0.5 MG/2 ML VIAL (PULMICORT) NEB SCH ×2 (06:50→19:59)
[2019-01-10] MEDS: ALBUT/IPRATROP 3MG/0.5MG NEB 3 ML VIAL NEB SCH ×4 (06:51→20:00)
[2019-01-10] MEDS: FUROSEMIDE 20 MG TAB PO SCH ×2 (07:35→21:56)
[2019-01-10] MEDS: POTASSIUM CHLORIDE 20 MEQ TABCR PO SCH (07:35)
[2019-01-10] MEDS: FERROUS SULFATE 325 MG TAB PO SCH ×2 (07:35→07:36)
[2019-01-10] MEDS: CARVEDILOL 6.25 MG TAB PO SCH ×2 (07:35→21:59)
[2019-01-10] MEDS: guaiFENesin 600 MG TABCR PO SCH ×2 (07:35→21:57)
[2019-01-10] MEDS: CLOPIDOGREL BISULFATE 75 MG TAB PO SCH (07:36)
[2019-01-10] MEDS: FLUTICASONE PROPIONATE NA SPR 16 GM BTL NAE SCH (07:36)
[2019-01-10] MEDS: PANTOprazole 40 MG TAB PO SCH ×2 (07:36→21:57)
[2019-01-10] MEDS: LISINOPRIL 5 MG TAB PO SCH (07:36)
--- NOTE | 2019-01-10 12:55 | Pulmonary Consultation ---
Date of Consultation January 10, 2019 Assessment & Plan (1) COPD exacerbation: it is unclear to me if this is an acute exacerbation of her COPD vs progression of her chronic COPD. I am unsure she is taking her medication correctly as she cannot easily tell me what she is taking. would recomend that she goes home on albuterol as needed. Brovoana, budesonide nebulizer and tiotropium inhaler. If she has trouble take those may benefit from combination medication such as Trelegy would likely benefit from pulmonary rehab on discharge both for exercise and education component for acute treatment continue albuterol/ipratropium and inhaled and systemic steroids. will need long taper on discharge over about [address] chest at end of february from pulmonary nodule seen on 11/22/2018 History of Present Illness Attending Physician: Girma Shine MD History of Present Illness 73 y/o female with history of COPD, CHF who presented with shortness of breath. She was just discharged and has had multiple admissions in the past few months for COPD. She says she has not felt normal since prior to winter. +dry cough. she sys her nebs were not helping. no fevers no chils. denies weight loss. no chest pain She says this feels similar to prior COPD she has no other complaints Allergies Allergy/AdvReac Type Severity Reaction Status Date / Time Sulfa (Sulfonamide Allergy Intermediate RASH Verified 01/09/19 04:34 Antibiotics) morphine AdvReac Mild GI SYMPTOMS Verified 01/09/19 04:34 Home Medications Home Medications Medication Instructions Recorded Confirmed Type albuterol sulfate 2.5 mg INHALATION Q4 PRN 10/24/18 01/09/19 History aspirin [Aspir-81] 81 mg PO HS 10/24/18 01/09/19 History atorvastatin 80 mg PO HS 10/24/18 01/09/19 History carvedilol 18.75 mg PO BID 10/24/18 01/09/19 History clopidogrel 75 mg PO QAM 10/24/18 01/09/19 History ezetimibe 10 mg PO HS 10/24/18 01/09/19 History fluticasone propionate 2 spray INTRANASAL QAM 10/24/18 01/09/19 History lisinopril 5 mg PO QAM 10/24/18 01/09/19 History potassium chloride 20 meq PO QAM 10/24/18 01/09/19 History pramipexole 0.25 mg PO HS 10/24/18 01/09/19 History sertraline 50 mg PO HS 10/24/18 01/09/19 History sodium chloride [[place] Nasal] 1 spray INTRANASAL DIRECTED PRN 10/24/18 01/09/19 History ondansetron HCl [Zofran] 4 mg PO Q6H PRN #10 tab 10/29/18 01/09/19 Rx acetaminophen [Tylenol Extra 500 mg PO Q6H PRN 12/19/18 01/09/19 History Strength] Brovana 15 mcg INHALATION BIDR #120 ml 12/29/18 01/09/19 Rx furosemide [Lasix] 20 mg PO BID #0 tab 12/29/18 01/09/19 Rx ipratropium-albuterol 3 ml NEB Q4R #180 ml 12/29/18 01/09/19 Rx lorazepam 0.5 mg PO Q8H PRN #60 tab 12/29/18 01/09/19 Rx pantoprazole 40 mg PO BID #60 tab 12/29/18 01/09/19 Rx ferrous sulfate 325 mg PO QAM #60 tab 01/08/19 01/09/19 Rx prednisone 40 mg PO DAILY #16 tab 01/08/19 01/09/19 Rx Patient History Medical History Cachexia Demand ischemia Acute and chronic respiratory failure (Acute) Chronic kidney disease, stage 3a Chronic systolic (congestive) heart failure CAD (coronary artery disease) s/p [place] in 1999 Atrial fibrillation Ischemic cardiomyopathy EF 25-30% Dyslipidemia Hypertension Anxiety Anemia (Acute) COPD (chronic obstructive pulmonary disease) (Acute) CHF (congestive heart failure) (Chronic) Pulmonary congestion Non compliance w medication regimen Emphysema of lung Syncope AICD malfunction Acute on chronic systolic (congestive) heart failure Acute and chronic respiratory failure with hypercapnia Acute and chronic respiratory failure with hypoxia Ambulatory dysfunction (Acute) Elevated troponin GIB (gastrointestinal bleeding) Reflux esophagitis SAH (subarachnoid hemorrhage) Surgical History S/P carotid endarterectomy S/P carpal tunnel release S/P hysterectomy S/P implantation of automatic cardioverter/defibrillator (AICD) Family History Father , about age 80 Coronary heart disease from acute [place] Mother , age 75 Coronary heart disease had CABG; ultimately from [place] Other Heart disease Social History Communication Ability: Effective Beliefs That Will Affect Care: None marital status: Current Living Situation: Spouse Current Living Situation Comment: lives in [place]; has 3 children current occupational status: retired Other Information That Helps Us Care for You: No other: worked in 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) Feels Safe at Home: Yes Safety Concerns: Feels Safe At This Time Smoking Status: Former smoker Hx Alcohol Use: No Hx Substance Use: No Review of Systems Constitutional: no fevers no chills no weight loss Eyes: no blurry or double vision EENT: no sore throat, no congestion Respiratory: + cough + shortness of breath Cardiovascular: no chest pain no palpitations GI: no abdominal pain, no nausea, no vomiting, no diarrhea, no constipation Gu: no dysuria, no frequency MSK: no joint pain, no muscle aches Skin: no rash Neuro: no headache, no dizziness, no focal weakness heme: no easy bruising, no lymphadenopathy Physical Exam Vital Signs (Past 24 Hours): Last Vital Signs Temp 36.5 C 01/10/19 08:22 Pulse 83 01/10/19 11:16 Resp 18 01/10/19 11:16 BP 147/63 H 01/10/19 08:22 Pulse Ox 97 01/10/19 11:16 Physical Exam: Constitutional: Comfortable NAD. cachectic HEENT: normocephalic atraumatic. MMM. no cervical lymphadenopathy CV: RRR nl s1,s2 no murmurs rubs or gallops Lungs: coarse bilaterally no wheezing moving air well. no accessory muscle use Abd: soft nontender nondistended. normal bowel sounds Ext: no edema. no cyanosis, no clubbing Skin: warm dry Neuro: alert and oriented. moving all extremities Psych: normal mood and affect Results & Data Laboratory Results Laboratory Results - last 24 hr 01/10/19 08:29 Troponin I 0.091 H* Diagnostic Findings XR chest 1V portable CLINICAL HISTORY: shortness of breath. COMPARISON STUDY: Chest radiograph January 08, 2019. Chest CT November 22, 2018. FINDINGS: A left subclavian biventricular pacer/AICD is in place. Small left and trace right pleural effusions are noted. There is no pneumothorax. Cardiomegaly is unchanged. Left lower lung airspace opacity with volume loss is noted. There is evidence for mild pulmonary edema. IMPRESSION: 1. Mild increase in left lower lobe airspace opacity and volume loss which may reflect consolidation or atelectasis. Radiographic follow up is recommended. 2. Small left and trace right pleural effusions. 3. Mild interstitial edema. Electronically signed by: Bora Schmitt M.D. 01/09/2019 6:38 AM
--- NOTE | 2019-01-10 13:22 | Hospitalist Progress Note ---
Date of Service January 10, 2019 Assessment & Plan (1) Acute and chronic respiratory failure: Acute on chronic respiratory failure/combination of COPD exacerbation and CHF exacerbation -- (2) CAD (coronary artery disease): CAD/hypertension/ischemic cardiomyopathy/demand ischemia-- Troponin 0.108 admission, at yesterday was 0.101, bumped to 0.12 today - per note from last february from Dr. Flynn: "Even if her symptom at home was secondary to myocardial ischemia would not perform an invasive cardiac procedure. She is at very high risk for any invasive procedures. Would reserve an invasive cardiac procedure (i.e.,cardiac catheterization, PCI) for a life-threatening episode of myocardialischemia/infarction." - Will attempt to maximize her antianginal therapy starting with increasing her carvedilol. It's possible that her sob could be partly due to her ischemic cardiomyopathy. She continues to deny any chest pain. Looking back through her past troponins, she is frequently elevated around this level. Continue aspirin 81 mg daily, atorvastatin 80 mg daily, carvedilol, lisinopril 5 mg p.o. daily clopidogrel 70 mg p.o. every morning and Zetia 10 mg p.o. daily. - consulted cardiology (3) COPD exacerbation: Continue Brovana, fluticasone nasal spray and [place] nasal spray. Continue Solu-Medrol 40 mg IV every 8 hours, and Pulmicort Respules 0.5 mg inhaled twice daily. Continue duonebs Titrate oxygen, keep pulse ox approximately 92%. - consulted pulm - recommends: Trelegy if that is easier for her to manage as a combined medication, pulm rehab, long steroid taper at [place] and fu CT for pulm nodule seen on 11/22 (4) Chronic systolic (congestive) heart failure: continue home lasix 20 mg bid Give Lasix 40 mg IV in the ED, and adjust dosing based on her response. (5) Demand ischemia: As above. (6) Ischemic cardiomyopathy: As above. (7) Cachexia: boost tid (8) Chronic kidney disease, stage 3a: Follow serial laboratories (9) Anemia: continue iron supplementation (10) DVT prophylaxis: SCDs, no chemoprophylaxis for history of subarachnoid bleed. Dispo: Patient has agreed to a referral to [facility] but has concerns about costs. At this point she is not ready to talk about hospice. Palliative care was involved with her during the last admission and we may need to get them on board again. Subjective Ms. Jameson is still sob. Her is bedside. She is concerned about the cost of her care if she goes to [facility]. Review of Systems All systems reviewed & are unremarkable except as noted in HPI & below Physical Exam Vital Signs (Past 24 Hours): Last Vital Signs Temp 36.5 C 01/10/19 08:22 Pulse 83 01/10/19 11:16 Resp 18 01/10/19 11:16 BP 147/63 H 01/10/19 08:22 Pulse Ox 97 01/10/19 11:16 Physical Exam: General: no distress Eyes: normal inspection, PERLL Respiratory: chest non tender, coarse bilateral breath sounds, no respiratory distress, no accessory muscle use Cardiac: regular rate and rhythm, no rub or gallop, no murmur, no edema, no jvd GI/: active bowel sounds, no abd pain or tenderness, soft, non distended Extremities: normal range of motion, normal strength, non tender Neuro/Psych: alert and oriented x 3, normal mood and affect Skin: normal color, dry Results & Data Laboratory Results Abnormal lab results 01/10/19 Range/Units 08:29 Troponin I 0.091 H* (0-0.045) ng/ml (1) Acute and chronic respiratory failure Respiratory failure complication: unspecified whether with hypoxia or hypercapnia Qualified Code(s): J96.20 - Acute and chronic respiratory failure, unspecified whether with hypoxia or hypercapnia (2) CAD (coronary artery disease) Coronary Disease-Associated Artery/Lesion type: [place] artery [place] vs. transplanted heart: [place] heart Associated angina: without angina Qualified Code(s): I25.10 - Atherosclerotic heart disease of [place] coronary artery without angina pectoris (3) Anemia Anemia type: unspecified type Qualified Code(s): D64.9 - Anemia, unspecified
[2019-01-10] MEDS: ATORVASTATIN 40 MG TAB PO SCH (21:55)
[2019-01-10] MEDS: ASPIRIN 81 MG ECTAB PO SCH (21:56)
[2019-01-10] MEDS: PRAMIPEXOLE DIHYDROCHLO 0.25 MG TAB PO SCH (21:56)
[2019-01-10] MEDS: SERTRALINE HCL 50 MG TABLET PO SCH (21:57)
[2019-01-10] MEDS: EZETIMIBE 10 MG TABLET PO SCH (21:57)
[2019-01-10] MEDS: LORazepam 0.5 MG TAB PO PRN (21:57)
[2019-01-11] MEDS: methylPREDNISolone 40 MG in SYRINGE 0 ML IV SCH ×3 (01:20→18:29)
[2019-01-11] MEDS: ALBUT/IPRATROP 3MG/0.5MG NEB 3 ML VIAL NEB SCH ×5 (02:58→20:21)
[2019-01-11] MEDS: FLUTICASONE PROPIONATE NA SPR 16 GM BTL NAE SCH (07:50)
[2019-01-11] MEDS: FUROSEMIDE 20 MG TAB PO SCH ×2 (07:50→20:23)
[2019-01-11] MEDS: CARVEDILOL 6.25 MG TAB PO SCH ×2 (07:50→20:21)
[2019-01-11] MEDS: CLOPIDOGREL BISULFATE 75 MG TAB PO SCH (07:50)
[2019-01-11] MEDS: LISINOPRIL 5 MG TAB PO SCH (07:50)
[2019-01-11] MEDS: guaiFENesin 600 MG TABCR PO SCH ×2 (07:50→20:26)
[2019-01-11] MEDS: POTASSIUM CHLORIDE 20 MEQ TABCR PO SCH (07:50)
[2019-01-11] MEDS: FERROUS SULFATE 325 MG TAB PO SCH ×2 (07:50)
[2019-01-11] MEDS: ARFORMOTEROL TART 15MCG/2ML VIAL INH SCH ×2 (07:59→19:17)
[2019-01-11] MEDS: BUDESONIDE 0.5 MG/2 ML VIAL (PULMICORT) NEB SCH ×2 (07:59→19:17)
--- NOTE | 2019-01-11 08:13 | Pulmonology Progress Note ---
Date of Service January 11, 2019 Assessment & Plan (1) COPD exacerbation: appears about the same as yesterday it is unclear to me if this is an acute exacerbation of her COPD vs progression of her chronic COPD. I am unsure she is taking her medication correctly as she cannot easily tell me what she is taking. would recommend that she goes home on albuterol as needed. Brovana, budesonide nebulizer and tiotropium inhaler. If she has trouble take those may benefit from combination medication such as Trelegy in addition to albuterol as needed would likely benefit from pulmonary rehab on discharge both for exercise and education component for acute treatment continue albuterol/ipratropium and inhaled and systemic steroids. will need long taper on discharge over about 2 weeks encourage OOB and physical therapy Needs followup CT chest at end of february from pulmonary nodule seen on 11/22/2018 Subjective breathing improved. says her breathing was ok walking with PT yesterday Physical Exam Vital Signs (Past 24 Hours): Last Vital Signs Temp 36.8 C 01/11/19 07:04 Pulse 83 01/11/19 07:04 Resp 18 01/11/19 07:04 BP 135/63 01/11/19 07:04 Pulse Ox 96 01/11/19 07:04 Physical Exam: Constitutional: Comfortable NAD. cachectic HEENT: normocephalic atraumatic. MMM. no cervical lymphadenopathy CV: RRR nl s1,s2 no murmurs rubs or gallops Lungs: coarse bilaterally no wheezing moving air well. no accessory muscle use Abd: soft nontender nondistended. normal bowel sounds Ext: no edema. no cyanosis, no clubbing Skin: warm dry Neuro: alert and oriented. moving all extremities Psych: normal mood and affect
[2019-01-11] MEDS: PANTOprazole 40 MG TAB PO SCH ×2 (08:19→20:26)
--- NOTE | 2019-01-11 09:27 | Hospitalist Progress Note ---
Date of Service January 11, 2019 Assessment & Plan (1) Acute and chronic respiratory failure: Acute on chronic respiratory failure/combination of COPD exacerbation and CHF exacerbation -- (2) CAD (coronary artery disease): CAD/hypertension/ischemic cardiomyopathy/demand ischemia-- Troponin 0.108 admission, at yesterday was 0.101, bumped to 0.12 and trended down - per note from last february from Dr. Flynn: "Even if her symptom at home was secondary to myocardial ischemia would not perform an invasive cardiac procedure. She is at very high risk for any invasive procedures. Would reserve an invasive cardiac procedure (i.e.,cardiac catheterization, PCI) for a life- threatening episode of myocardialischemia/infarction." - Will attempt to maximize her antianginal therapy starting with increasing her carvedilol. It's possible that her sob could be partly due to her ischemic cardiomyopathy. She continues to deny any chest pain. Looking back through her past troponins, she is frequently elevated around this level. Continue aspirin 81 mg daily, atorvastatin 80 mg daily, increased carvedilol, lisinopril 5 mg p.o. daily clopidogrel 70 mg p.o. every morning and Zetia 10 mg p.o. daily. - consulted cardiology (3) COPD exacerbation: Continue Brovana, fluticasone nasal spray and [place] nasal spray. Continue Solu-Medrol 40 mg IV every 8 hours, and Pulmicort Respules 0.5 mg inhaled twice daily. Will need long steroid taper at discharge Continue duonebs Titrate oxygen, keep pulse ox approximately 92%. - consulted pulm - recommends: Trelegy if that is easier for her to manage as a combined medication, pulm rehab, long steroid taper at [place] and fu CT for pulm nodule seen on 11/22 (4) Chronic systolic (congestive) heart failure: continue home lasix 20 mg bid Give Lasix 40 mg IV in the ED, and adjust dosing based on her response. (5) Demand ischemia: As above. (6) Ischemic cardiomyopathy: As above. (7) Cachexia: boost tid (8) Chronic kidney disease, stage 3a: Follow serial laboratories (9) Anemia: continue iron supplementation (10) DVT prophylaxis: SCDs, no chemoprophylaxis for history of subarachnoid bleed. Dispo: Patient has agreed to a referral to [facility] but has concerns about costs. At this point she is not ready to talk about hospice. Palliative care was involved with her during the last admission and we may need to get them on board again. Will have CM follow up with patient today. Subjective Ms. Jameson continues to be sob with cough, non productive. No chest pain. Sob with anxiety at times. Review of Systems All systems reviewed & are unremarkable except as noted in HPI & below Physical Exam Vital Signs (Past 24 Hours): Last Vital Signs Temp 36.8 C 01/11/19 07:04 Pulse 85 01/11/19 07:59 Resp 18 01/11/19 07:59 BP 135/63 01/11/19 07:04 Pulse Ox 95 01/11/19 07:59 Physical Exam: General: no distress Eyes: normal inspection, PERLL Respiratory: chest non tender,coarse to auscultation, no respiratory distress, no accessory muscle use Cardiac: regular rate and rhythm, no rub or gallop, no murmur, no edema, no jvd GI/: active bowel sounds, no abd pain or tenderness, soft, non distended Extremities: normal range of motion, normal strength, non tender Neuro/Psych: alert and oriented x 3, normal mood and affect Skin: normal color, dry (1) Acute and chronic respiratory failure Respiratory failure complication: unspecified whether with hypoxia or hypercapnia Qualified Code(s): J96.20 - Acute and chronic respiratory failure, unspecified whether with hypoxia or hypercapnia (2) CAD (coronary artery disease) Coronary Disease-Associated Artery/Lesion type: [place] artery [place] vs. transplanted heart: [place] heart Associated angina: without angina Qualified Code(s): I25.10 - Atherosclerotic heart disease of [place] coronary artery without angina pectoris (3) Anemia Anemia type: unspecified type Qualified Code(s): D64.9 - Anemia, unspecified
[2019-01-11] MEDS: LORazepam 0.5 MG TAB PO PRN ×2 (15:24→23:23)
[2019-01-11] MEDS: SERTRALINE HCL 50 MG TABLET PO SCH (20:23)
[2019-01-11] MEDS: ASPIRIN 81 MG ECTAB PO SCH (20:24)
[2019-01-11] MEDS: PRAMIPEXOLE DIHYDROCHLO 0.25 MG TAB PO SCH (20:24)
[2019-01-11] MEDS: ATORVASTATIN 40 MG TAB PO SCH (20:25)
[2019-01-11] MEDS: EZETIMIBE 10 MG TABLET PO SCH (20:26)
[2019-01-12] MEDS: methylPREDNISolone 40 MG in SYRINGE 0 ML IV SCH ×4 (00:50→21:28)
[2019-01-12 06:02] LABS: Hematocrit (blood only) 29.7 % (37-47); Hemoglobin 9.3 g/dL (12.0-16.0); Mean Corpuscular Hgb Conc 31.3 g/dL (32-36); Mean Corpuscular Volume 87.4 fL (80-100); Mean Platelet Volume 9.5 fL (7.4-10.4); Platelet Count 185 K/uL (130-400); RDW Coefficient of Variation 23.9 % (11.5-14.5); RDW Standard Deviation 75.7 fL (36.4-46.3)
[2019-01-12] MEDS: ARFORMOTEROL TART 15MCG/2ML VIAL INH SCH ×2 (07:07→19:28)
[2019-01-12] MEDS: BUDESONIDE 0.5 MG/2 ML VIAL (PULMICORT) NEB SCH ×2 (07:07→19:28)
[2019-01-12] MEDS: ALBUT/IPRATROP 3MG/0.5MG NEB 3 ML VIAL NEB SCH ×4 (07:17→19:28)
[2019-01-12] MEDS: guaiFENesin 600 MG TABCR PO SCH ×2 (08:07→21:29)
[2019-01-12] MEDS: PANTOprazole 40 MG TAB PO SCH ×2 (08:07→21:29)
[2019-01-12] MEDS: CLOPIDOGREL BISULFATE 75 MG TAB PO SCH (08:07)
[2019-01-12] MEDS: CARVEDILOL 6.25 MG TAB PO SCH ×2 (08:08→21:28)
[2019-01-12] MEDS: LISINOPRIL 5 MG TAB PO SCH (08:08)
[2019-01-12] MEDS: POTASSIUM CHLORIDE 20 MEQ TABCR PO SCH (08:08)
[2019-01-12] MEDS: FUROSEMIDE 20 MG TAB PO SCH ×2 (08:08→21:30)
[2019-01-12] MEDS: FLUTICASONE PROPIONATE NA SPR 16 GM BTL NAE SCH (08:08)
[2019-01-12] MEDS: FERROUS SULFATE 325 MG TAB PO SCH ×2 (08:08)
[2019-01-12 09:12] LABS: BUN Creatinine Ratio 54.3 (10-20); Calcium 8.7 mg/dl (8.5-10.1); Creatinine Clr Calc Pharmacy 33.9 ml/min; Est GFR (African American) 57.3; Est GFR (Non-African American) 49.4; Magnesium 2.2 mg/dl (1.8-2.4); Potassium 3.8 mmol/L (3.5-5.1)
--- NOTE | 2019-01-12 15:57 | Progress Note ---
DATE: 01/12/2019 PULMONARY MEDICINE PROGRESS NOTE Chart reviewed and the patient examined. SUBJECTIVE: A 73-year-old white female with history of COPD, CHF, has had multiple admissions for COPD exacerbation in the past and was recently readmitted on 01/09/2019 after having been evaluated by Dr. Lindo in the ER. She has been persistently more dyspneic. She lives at home with her and feels that she manages reasonably well. She was discharged after lengthy hospitalization on 01/08/2019. She presented with acute on chronic hypoxic respiratory failure. She had been on BiPAP and O2 therapy. She has refused inpatient rehabilitation in the past. She did undergo bronchoscopy with BAL without improvement. Her EF is only 20%. She also has a history of atrial fibrillation. Chest x-ray in the past has shown pulmonary vascular congestion, small effusions and bibasilar opacity. She has been chronically anemic requiring iron therapy. She was seen by Dr. Villagran on 01/09, carries with her previous diagnosis of an inferior wall myocardial infarction in 1999, now has a markedly reduced ejection fraction. I refer you to his well-outlined notation. She then saw Dr. Luís hinojosa for pulmonary medicine on 01/11. He made some recommendations about the use of home albuterol as needed and continuing Brovana, budesonide by nebulizer along with tiotropium inhaler and perhaps even converting over to Trelegy triple therapy. Followup CT scan for pulmonary nodulosis discovered on 11/22/2018 CT scan was noted. Currently, the patient feels well and would like to go home. PHYSICAL EXAMINATION: CURRENT VITAL SIGNS: Blood pressure 140/67, pulse 80 and regular, respiratory rate 20, temperature 36.3, and O2 sat 97% on room air. SKIN: Without lesion. HEENT: Atraumatic, normocephalic, PERRLA, EOMI. Conjunctivae pale. Sclerae nonicteric. Fundi poorly visualized. NECK: Neck veins are not distended at 45 degrees. No evidence of lymphadenopathy in the supra or infraclavicular areas. LUNGS: Scattered wheeze right base, otherwise distant P and A. CARDIAC EXAM: Regular rate and rhythm, a grade 1/6 SCM heard at the lower sternal border. ABDOMEN: Soft, scaphoid. No evidence of hepatosplenomegaly. EXTREMITIES: No pedal edema, clubbing or cyanosis. NEUROLOGICAL: Intact. No lateralizing signs. LABORATORY DATA: Chest x-ray showed mild increase in left lower lobe airspace opacity and volume loss, small left and right and trace pleural effusion. Bronchial washing on 11/23 grew out Klebsiella oxytoca to species. OVERALL ASSESSMENT: A 73-year-old with chronic obstructive pulmonary disease, ischemic cardiomyopathy, chronic congestive heart failure, recently hospitalized with a gram-negative pneumonia secondary to Klebsiella oxytoca, now with recurrent symptomatology and persistent bronchospasm. The patient's left lower lobe still shows evidence my opinion of persistent consolidation with effusion. Previous video swallow showed no obvious aspiration and repeat look at the CT scan done in mid November continues to show then left lower lobe collapse with the fusion with no obviously identifiable mass. At this point in time, the patient appears to be continuing her symptomatic waist and although feels well at rest, still bronchospastic. We will need to discuss with primary hospitalist service about how aggressive to be in the future. The patient has persistent left lower lobe collapse.
--- NOTE | 2019-01-12 16:27 | CT Scan Report ---
CT SCAN OF THE CHEST WITHOUT IV CONTRAST CLINICAL HISTORY: Left lower lobe atelectasis. COMPARISON STUDY: Chest x-ray dated 01/09/2019. Chest CT scans dated 11/22/2018 and 03/15/2016. TECHNIQUE: CT scan of the thorax was performed from the thoracic inlet to the upper abdomen. Images are reviewed in the axial, sagittal, and coronal planes. IV contrast was not administered for this ex amination as per the referring clinician. A dose lowering technique was utilized [facility] DOSE: 182.15 mGycm FINDINGS: Thyroid: Imaged portions of the thyroid gland are normal in size and attenuation. Thoracic aorta: There is advanced atherosclerotic calcification of the thoracic aorta, which is girish l in caliber and demonstrates standard 3-vessel arch anatomy. Heart: A 3-lead cardiac AICD is present in the left chest wall. The heart is enlarged and without per icardial effusion. The pulmonary trunk is dilated, measuring 4 cm diameter. This suggests pulmonary a rtery hypertension. Lungs and pleural spaces: Advanced emphysematous change is identified. There is patchy airspace conso lidation at the right lung base as well as trace bilateral pleural effusions. There is significantly improved aeration at the left lung base as compared to 11/22/2018, with only residual subsegmental ate lectasis is identified. Mediastinum: There is no mediastinal lymphadenopathy. Earline: Not well assessed without IV contrast. Axillae: There is no axillary lymphadenopathy. Upper abdomen: Partially visualized upper abdominal viscera is within normal limits. Skeletal structures: The skeletal structures are osteopenic. There are compression deformities of T3, T4, T5, T6, T10, and L1. No lytic or blastic bony lesions are seen. IMPRESSION: 1. Advanced emphysema. 2. Cardiomegaly and AICD with evidence of pulmonary artery hypertension. 3. There is patchy airspace consolidation at the right lung base and trace pleural effusions. Correla te clinically for evidence of pneumonia/aspiration pneumonitis. Radiographic follow-up to resolution is recommended. 4. There is significantly improved aeration at the left lung base as compared to 11/22/2018. There is only mild residual subsegmental atelectasis identified. 5. Additional findings as above. Electronically signed by: Antonio Astorga M.D. 01/12/2019 4:26 PM
--- NOTE | 2019-01-12 16:27 | Hospitalist Progress Note ---
Date of Service January 12, 2019 Assessment & Plan (1) Acute and chronic respiratory failure: Acute on chronic respiratory failure/combination of COPD exacerbation and CHF exacerbation, slowly improving, (2) CAD (coronary artery disease): CAD/hypertension/ischemic cardiomyopathy/demand ischemia Troponin 0.108 admission, has trends down, per note from last february from Dr. Flynn: would not perform an invasive cardiac procedure because she is high risk for any invasive procedures. We will continue to maximize her antianginal therapy starting with increasing her carvedilol. Continue aspirin 81 mg daily, atorvastatin 80 mg daily, increased carvedilol, lisinopril 5 mg p.o. daily clopidogrel 70 mg p.o. every morning and Zetia 10 mg p.o. daily. (3) COPD exacerbation: Stable improving, continue Brovana, fluticasone nasal spray and [place] nasal spray. Continue Solu-Medrol 40 mg IV every 8 hours, will decrease to 40mg q 12 cont Pulmicort Respules 0.5 mg inhaled twice daily. Continue duonebs Titrate oxygen, keep pulse ox approximately 92%, patient is better than baseline now, at 2 L/min, consulted pulm - recommends: Trelegy if that is easier for her to manage as a combined medication, pulm rehab, long steroid taper at [place] and fu CT for pulm nodule seen on 11/22 (4) Chronic systolic (congestive) heart failure: continue home lasix 20 mg bid Give Lasix 40 mg IV in the ED, and adjust dosing based on her response. (5) Demand ischemia: As above. (6) Ischemic cardiomyopathy: As above. (7) Cachexia: boost tid (8) Chronic kidney disease, stage 3a: Follow serial laboratories (9) Anemia: continue iron supplementation, today's 9.3 from 9.7, (10) DVT prophylaxis: SCDs, no chemoprophylaxis for history of subarachnoid bleed. Dispo: Patient has agreed to a referral to [facility] but has concerns about costs. not ready to talk about hospice. Palliative care was involved with her during the last admission and we may need to get them on board again. Possible discharge soon, Subjective Reported breathing is better however still have wet cough, generalized weakness and dyspnea on exertion, Denies fever and chills, Review of Systems Constitutional: Positive weakness, or fatigue Respiratory: Positive cough, sputum, wheezing, or dyspnea on exertion Cardiac: No chest pain, No palpitations, Abdomen: No pain, No nausea, No vomiting, No diarrhea, No constipation, Musculoskeletal: No joint pain, No muscle pain, No swelling, No calf pain, No problem reported : No dysuria, No urinary frequency, No incontinence, No hematuria Neurologic: No paralysis, No weakness, No numbness/tingling, Psychiatric: No depression symptoms, No anhedonism, No anxiety Heme: No abnormal bleeding/bruising, No clotting problems, Skin: No rash, No itch, No new/changing skin lesions, No color change, No bleeding Physical Exam Vital Signs (Past 24 Hours): Last Vital Signs Temp 36.3 C L 01/12/19 15:00 Pulse 80 01/12/19 15:00 Resp 20 01/12/19 15:00 BP 144/67 H 01/12/19 15:00 Pulse Ox 97 01/12/19 15:00 Physical Exam: General: Frail, and chronically ill looking, no distress Eyes: normal inspection, PERLL Respiratory: Bilateral lower lungs fine crackles, chest non tender, no respiratory distress, no accessory muscle use Cardiac: regular rate and rhythm, no rub or gallop, no murmur, no edema, no jvd GI/: active bowel sounds, no abd pain or tenderness, soft, non distended Extremities: normal range of motion, normal strength, non tender Neuro/Psych: alert and oriented x 3, normal mood and affect Skin: normal color, dry Results & Data Laboratory Results Laboratory Results - last 24 hr 01/12/19 01/12/19 05:43 08:40 WBC 6.40 RBC 3.40 L Hgb 9.3 L Hct 29.7 L MCV 87.4 MCH 27.4 MCHC 31.3 L RDW Std Deviation 75.7 H RDW Coeff of [place] 23.9 H Plt Count 185 MPV 9.5 Sodium 138 Potassium 3.8 Chloride 99 Carbon Dioxide 33 H Anion Gap 5.0 BUN 60 H Creatinine 1.10 Est Cr Clr Drug Dosing 33.9 Est GFR ( Amer) 57.3 Est GFR (Non-Af Amer) 49.4 BUN/Creatinine Ratio 54.3 H Glucose 254 H Calcium 8.7 Magnesium 2.2 NT-Pro-B Natriuret Pep 42107 H (1) Acute and chronic respiratory failure Respiratory failure complication: unspecified whether with hypoxia or hypercapnia Qualified Code(s): J96.20 - Acute and chronic respiratory failure, unspecified whether with hypoxia or hypercapnia (2) CAD (coronary artery disease) Coronary Disease-Associated Artery/Lesion type: [place] artery [place] vs. [place] heart: [place] heart Associated angina: without angina Qualified Code(s): I25.10 - Atherosclerotic heart disease of [place] coronary artery without angina pectoris (3) Anemia Anemia type: unspecified type Qualified Code(s): D64.9 - Anemia, unspecified
--- NOTE | 2019-01-12 18:29 | Ultrasound Report ---
ULTRASOUND PLEURAL SPACES CLINICAL HISTORY: Pleural effusion. COMPARISON STUDY: Chest CT dated 01/12/2019. FINDINGS: Real-time grayscale sonography of the pleural spaces is performed. No pleural effusion is i dentified on the left. There is trace right pleural effusion on the right with an estimated volume of 4 cc. IMPRESSION: 1. Trace right pleural effusion. 2. No left pleural effusion is identified. Electronically signed by: Antonio Astorga M.D. 01/12/2019 6:28 PM
[2019-01-12] MEDS: LORazepam 0.5 MG TAB PO PRN (21:27)
[2019-01-12] MEDS: ATORVASTATIN 40 MG TAB PO SCH (21:29)
[2019-01-12] MEDS: EZETIMIBE 10 MG TABLET PO SCH (21:29)
[2019-01-12] MEDS: PRAMIPEXOLE DIHYDROCHLO 0.25 MG TAB PO SCH (21:30)
[2019-01-12] MEDS: ASPIRIN 81 MG ECTAB PO SCH (21:30)
[2019-01-12] MEDS: SERTRALINE HCL 50 MG TABLET PO SCH (21:30)
[2019-01-13] MEDS: ALBUT/IPRATROP 3MG/0.5MG NEB 3 ML VIAL NEB SCH ×5 (05:08→19:36)
[2019-01-13] MEDS: ARFORMOTEROL TART 15MCG/2ML VIAL INH SCH ×2 (07:02→19:35)
[2019-01-13] MEDS: BUDESONIDE 0.5 MG/2 ML VIAL (PULMICORT) NEB SCH ×2 (07:02→19:36)
[2019-01-13 07:53] LABS: BUN Creatinine Ratio 61.8 (10-20); Calcium 8.3 mg/dl (8.5-10.1); Creatinine Clr Calc Pharmacy 39.2 ml/min; Est GFR (African American) 68.4; Magnesium 2.3 mg/dl (1.8-2.4); Potassium 3.8 mmol/L (3.5-5.1)
[2019-01-13] MEDS: methylPREDNISolone 40 MG in SYRINGE 0 ML IV SCH (08:09)
[2019-01-13] MEDS: FERROUS SULFATE 325 MG TAB PO SCH ×2 (08:09→08:12)
[2019-01-13] MEDS: POTASSIUM CHLORIDE 20 MEQ TABCR PO SCH (08:09)
[2019-01-13] MEDS: CLOPIDOGREL BISULFATE 75 MG TAB PO SCH (08:09)
[2019-01-13] MEDS: LISINOPRIL 5 MG TAB PO SCH (08:10)
[2019-01-13] MEDS: FUROSEMIDE 20 MG TAB PO SCH (08:10)
[2019-01-13] MEDS: guaiFENesin 600 MG TABCR PO SCH ×2 (08:10→20:16)
[2019-01-13] MEDS: CARVEDILOL 6.25 MG TAB PO SCH ×2 (08:11→20:14)
[2019-01-13] MEDS: FLUTICASONE PROPIONATE NA SPR 16 GM BTL NAE SCH (08:14)
[2019-01-13] MEDS: PANTOprazole 40 MG TAB PO SCH ×2 (08:16→20:16)
[2019-01-13] MEDS: LORazepam 0.5 MG TAB PO PRN ×2 (09:21→20:19)
[2019-01-13] MEDS ORDERED: FUROSEMIDE 20 MG TAB PO ONE (09:30)
--- NOTE | 2019-01-13 12:19 | Cardiology Progress Note ---
Date of Service January 13, 2019 Assessment & Plan (1) Acute and chronic respiratory failure: Likely secondary to a combination of her longstanding COPD/emphysema and her chronic combined CHF. She seems compensated at this time. (2) CHF (congestive heart failure): The patient carries a history of chronic combined systolic and diastolic CHF. Would increase her carvedilol to 25 mg b.i.d.. Could consider a change from lisinopril to Entresto as an outpatient. (3) Ischemic cardiomyopathy: Left ventricular ejection fraction was 25-30% on her echocardiogram performed in November. (4) CAD (coronary artery disease): She has a history of inferior myocardial infarction which occurred in 1999. She is not a good candidate for an invasive strategy realizing her numer ous comorbidities and poor nutritional state. Continue conservative care. (5) Atrial fibrillation: The patient does not take long-term anticoagulation due to her history of a subarachnoid hemorrhage in May 2017. Subjective The patient is resting comfortably in bed without complaints of chest pain. Dyspnea appears to be improving. She is anxious for hospital discharge. Physical Exam Vital Signs (Past 24 Hours): Last Vital Signs Temp 36.4 C L 01/13/19 08:11 Pulse 79 01/13/19 10:46 Resp 20 01/13/19 10:46 BP 133/84 01/13/19 08:11 Pulse Ox 94 01/13/19 10:46 Physical Exam: In general is a thin elderly white female seated at the bedside without complaints. HEENT exam is negative. Neck is supple with full carotid upstrokes. No obvious bruits. Jugular venous pressure is flat at 90 degrees. No thyromegaly. Well-healed scar on the left neck. Cardiovascular exam reveals a regular rhythm with a normal S1-S2. A 1/6 basal systolic ejection murmur is noted. No S3. Chest reveals a palpable device in the left subclavicular region. Lungs note distant breath sounds with an occasional expiratory wheeze. No rales. Abdomen is soft without bruits. Extremities reveal intact radial artery pulses bilaterally. There is no peripheral edema. Results & Data Laboratory Results Laboratory Results - last 24 hr 01/13/19 06:56 Sodium 139 Potassium 3.8 Chloride 101 Carbon Dioxide 32 Anion Gap 6.0 BUN 58 H Creatinine 0.95 Est Cr Clr Drug Dosing 39.2 Est GFR ( Amer) 68.4 Est GFR (Non-Af Amer) 59.0 BUN/Creatinine Ratio 61.8 H Glucose 179 H Calcium 8.3 L Magnesium 2.3 (1) Acute and chronic respiratory failure Respiratory failure complication: unspecified whether with hypoxia or hypercapnia Qualified Code(s): J96.20 - Acute and chronic respiratory failure, unspecified whether with hypoxia or hypercapnia (2) CAD (coronary artery disease) Associated angina: without angina Coronary Disease-Associated Artery/Lesion type: [place] artery [place] vs. transplanted heart: [place] heart Qualified Code(s): I25.10 - Atherosclerotic heart disease of [place] coronary artery without angina pectoris (3) CHF (congestive heart failure) Heart failure chronicity: chronic Heart failure type: systolic Qualified Code(s): I50.22 - Chronic systolic (congestive) heart failure (4) Atrial fibrillation Atrial fibrillation type: chronic Qualified Code(s): I48.2 - Chronic atrial fibrillation
--- NOTE | 2019-01-13 17:09 | Hospitalist Progress Note ---
Date of Service January 13, 2019 Assessment & Plan (1) Acute and chronic respiratory failure: 73-year-old female with a past medical history multiple hospital admission due to COPD exacerbations, congestive heart failure exacerbations and acute on chronic respiratory failure Readmitted on January 09, 2019 because of Acute on chronic respiratory failure/combination of COPD exacerbation and CHF exacerbation, slowly improving, (2) CAD (coronary artery disease): CAD/hypertension/ischemic cardiomyopathy/demand ischemia Troponin 0.108 admission, has trends down, per note from last february from Dr. Flynn: would not perform an invasive cardiac procedure because she is high risk for any invasive procedures. We will continue to maximize her antianginal therapy starting with increasing her carvedilol. Continue aspirin 81 mg daily, atorvastatin 80 mg daily, increased carvedilol, lisinopril 5 mg p.o. daily Continue clopidogrel 70 mg p.o. every morning and Zetia 10 mg p.o. daily. (3) COPD exacerbation: Stable improving, continue Brovana, fluticasone nasal spray and [place] nasal spray. was on Solu-Medrol 40 mg IV every 8 hours, will taper to oral prednisone cont Pulmicort Respules 0.5 mg inhaled twice daily. Continue duonebs Titrate oxygen, keep pulse ox approximately 92%, patient is better than baseline now, at 2 L/min, consulted pulm - recommends: Trelegy if that is easier for her to manage as a combined medication, pulm rehab, long steroid taper at [facility] and fu CT for pulm nodule seen on 11/22 (4) Chronic systolic (congestive) heart failure: continue home lasix 20 mg bid , watching him out, Give Lasix 40 mg IV in the ED, and adjust dosing based on her response. (5) Demand ischemia: As above. (6) Ischemic cardiomyopathy: As above. (7) Cachexia: boost tid (8) Chronic kidney disease, stage 3a: Follow serial laboratories (9) Anemia: continue iron supplementation, today's 9.3 from 9.7, (10) DVT prophylaxis: SCDs, no chemoprophylaxis for history of subarachnoid bleed. Dispo: Patient has agreed to a referral to [facility] Patient has multiple hospital admission, due to talk to palliative care to address the goal of the care however patient has been not ready to talk about hospice. Palliative care was involved with her during the last admission and we may need to get them on board again. Possible discharge soon, Subjective Reported generally feeling better includes breathing is better no more wet cough, Reported generalized weakness and dyspnea on exertion, Denies fever and chills, Review of Systems Constitutional: Positive weakness, or fatigue Respiratory: Positive cough, sputum, wheezing, or dyspnea on exertion Cardiac: No chest pain, No palpitations, Abdomen: No pain, No nausea, No vomiting, No diarrhea, No constipation, Musculoskeletal: No joint pain, No muscle pain, No swelling, No calf pain, No problem reported : No dysuria, No urinary frequency, No incontinence, No hematuria Neurologic: No paralysis, No weakness, No numbness/tingling, Psychiatric: No depression symptoms, No anhedonism, No anxiety Heme: No abnormal bleeding/bruising, No clotting problems, Skin: No rash, No itch, No new/changing skin lesions, No color change, No bleeding Physical Exam Vital Signs (Past 24 Hours): Last Vital Signs Temp 36.4 C L 01/13/19 15:51 Pulse 78 01/13/19 15:51 Resp 18 01/13/19 15:51 BP 147/73 H 01/13/19 15:51 Pulse Ox 98 01/13/19 15:51 Physical Exam: General: Frail, and chronically ill looking, no distress Eyes: normal inspection, PERLL Respiratory: Bilateral lower lungs fine crackles, chest non tender, no respiratory distress, no accessory muscle use Cardiac: regular rate and rhythm, no rub or gallop, mild soft murmur, no edema, no jvd GI/: active bowel sounds, no abd pain or tenderness, soft, non distended Extremities: normal range of motion, normal strength, non tender Neuro/Psych: alert and oriented x 3, normal mood and affect Skin: normal color, dry Results & Data Laboratory Results Laboratory Results - last 24 hr 01/13/19 06:56 Sodium 139 Potassium 3.8 Chloride 101 Carbon Dioxide 32 Anion Gap 6.0 BUN 58 H Creatinine 0.95 Est Cr Clr Drug Dosing 39.2 Est GFR ( Amer) 68.4 Est GFR (Non-Af Amer) 59.0 BUN/Creatinine Ratio 61.8 H Glucose 179 H Calcium 8.3 L Magnesium 2.3 (1) Acute and chronic respiratory failure Respiratory failure complication: unspecified whether with hypoxia or hypercapnia Qualified Code(s): J96.20 - Acute and chronic respiratory failure, unspecified whether with hypoxia or hypercapnia (2) CAD (coronary artery disease) Coronary Disease-Associated Artery/Lesion type: [place] artery [place] vs. transplanted heart: [place] heart Associated angina: without angina Qualified Code(s): I25.10 - Atherosclerotic heart disease of [place] coronary artery without angina pectoris (3) Anemia Anemia type: unspecified type Qualified Code(s): D64.9 - Anemia, unspecified
[2019-01-13] MEDS: FUROSEMIDE 40 MG TAB PO SCH (20:13)
[2019-01-13] MEDS: ATORVASTATIN 40 MG TAB PO SCH (20:13)
[2019-01-13] MEDS: ASPIRIN 81 MG ECTAB PO SCH (20:13)
[2019-01-13] MEDS: predniSONE 20 MG TAB PO SCH (20:15)
[2019-01-13] MEDS: SERTRALINE HCL 50 MG TABLET PO SCH (20:15)
[2019-01-13] MEDS: PRAMIPEXOLE DIHYDROCHLO 0.25 MG TAB PO SCH (20:16)
[2019-01-13] MEDS: EZETIMIBE 10 MG TABLET PO SCH (20:16)
[2019-01-14 06:23] LABS: BUN Creatinine Ratio 56.6 (10-20); Calcium 8.1 mg/dl (8.5-10.1); Creatinine Clr Calc Pharmacy 37.6 ml/min; Est GFR (African American) 65.1; Est GFR (Non-African American) 56.1; Potassium 3.8 mmol/L (3.5-5.1)
[2019-01-14] MEDS: ALBUT/IPRATROP 3MG/0.5MG NEB 3 ML VIAL NEB SCH ×2 (07:02→11:18)
[2019-01-14] MEDS: ARFORMOTEROL TART 15MCG/2ML VIAL INH SCH (07:07)
[2019-01-14] MEDS: BUDESONIDE 0.5 MG/2 ML VIAL (PULMICORT) NEB SCH (07:08)
[2019-01-14] MEDS: FERROUS SULFATE 325 MG TAB PO SCH (08:38)
[2019-01-14] MEDS: CLOPIDOGREL BISULFATE 75 MG TAB PO SCH (08:38)
[2019-01-14] MEDS: POTASSIUM CHLORIDE 20 MEQ TABCR PO SCH (08:38)
[2019-01-14] MEDS: guaiFENesin 600 MG TABCR PO SCH (08:38)
[2019-01-14] MEDS: PANTOprazole 40 MG TAB PO SCH (08:38)
[2019-01-14] MEDS: CARVEDILOL 6.25 MG TAB PO SCH (08:38)
[2019-01-14] MEDS: FLUTICASONE PROPIONATE NA SPR 16 GM BTL NAE SCH (08:39)
[2019-01-14] MEDS: predniSONE 20 MG TAB PO SCH (08:39)
[2019-01-14] MEDS: FUROSEMIDE 40 MG TAB PO SCH (08:39)
[2019-01-14] MEDS: LISINOPRIL 5 MG TAB PO SCH (08:39)
--- NOTE | 2019-01-14 18:40 | Discharge Summary ---
Date of Service January 14, 2019 Admission HPI Per Admitting Provider The patient is a 73-year-old female with a past medical history including hospitalizations this year from 10/24-10/29, 11/22-12/01, 12/19-12/29, and 01/04-01/08, due to COPD exacerbations, congestive heart failure exacerbations and acute on chronic respiratory failure. She did have a palliative care consult during last admission. Her cough sounds more readily at this point, is more suggestive of a COPD exacerbation/URI. Principal Diagnosis Respiratory difficulty Discharge Exam Constitutional WD/WN, vitals as above Eyes EOM intact bilaterally; no conjunctival abnormality ENMT external ear and nose normal, oropharynx normal Neck trachea midline, no thyromegaly normal visual inspection Respiratory normal respiratory effort, lungs clear to auscultation no respiratory distress Cardiovascular RRR, no murmur, no edema Gastrointestinal (Abdomen) Inspection/Auscultation: abdomen normal to inspection; abdomen not distended Musculoskeletal no cyanosis or clubbing, extremities motor strength 5/5 Skin no rashes, warm and dry Neurologic moves all extremities and awake Psychiatric Orientation: alert, oriented to person and cooperative Discharge Data Allergies Allergy/AdvReac Type Severity Reaction Status Date / Time Sulfa (Sulfonamide Allergy Intermediate RASH Verified 01/09/19 04:34 Antibiotics) morphine AdvReac Mild GI SYMPTOMS Verified 01/09/19 04:34 Consultations 01/09/19 05:29 ED Decision to Admit Stat 01/09/19 08:17 Consult Case Management - Discharge Planning Routine 01/09/19 11:55 Consult Cardiology Routine 01/10/19 11:50 Consult Pulmonology Routine Ordered Studies 01/12/19 15:07 CT chest wo con Routine 01/12/19 15:09 US effusion-chest/mediastinum Routine Hospital Course (1) Acute and chronic respiratory failure: 73-year-old female with a past medical history multiple hospital admission due to COPD exacerbations, congestive heart failure exacerbations and acute on chronic respiratory failure Readmitted on January 09, 2019 because of Acute on chronic respiratory failure/combination of COPD exacerbation and CHF exacerbation, slowly improving, (2) CAD (coronary artery disease): CAD/hypertension/ischemic cardiomyopathy/demand ischemia Troponin 0.108 admission, has trends down, per note from last february from Dr. Flynn: would not perform an invasive cardiac procedure because she is high risk for any invasive procedures. We will continue to maximize her antianginal therapy starting with increasing her carvedilol. Continue aspirin 81 mg daily, atorvastatin 80 mg daily, increased carvedilol, lisinopril 5 mg p.o. daily Continue clopidogrel 70 mg p.o. every morning and Zetia 10 mg p.o. daily. (3) COPD exacerbation: Stable improving, continue Brovana, fluticasone nasal spray and [place] nasal spray. was on Solu-Medrol 40 mg IV every 8 hours, will taper to oral prednisone cont Pulmicort Respules 0.5 mg inhaled twice daily. Continue duonebs Titrate oxygen, keep pulse ox approximately 92%, patient is better than baseline now, at 2 L/min, consulted pulm - recommends: Trelegy if that is easier for her to manage as a combined medication, pulm rehab, long steroid taper at [place] and fu CT for pulm nodule seen on 11/22 (4) Chronic systolic (congestive) heart failure: continue home lasix 20 mg bid , watching him out, Give Lasix 40 mg IV in the ED, and adjust dosing based on her response. (5) Demand ischemia: As above. (6) Ischemic cardiomyopathy: As above. (7) Cachexia: boost tid (8) Chronic kidney disease, stage 3a: Follow serial laboratories (9) Anemia: continue iron supplementation, today's 9.3 from 9.7, Total Time Total Time Spent Total Time Spent (In Minutes): 45 Total Time Includes: Examination of the Patient, Discharge Planning and Medication Reconciliation Discharge Plan Discharge Items Patient Disposition: Transfer Custodial Fac Reason For Visit: ACUTE ON CHRONIC RESPIRATORY FAILURE, [place] Discharge Diagnosis: Respiratory issues Discharge Goals: Decrease discomfort and Improve function Activity: Resume your previous activity Non-emergency contact: Primary Care Provider Call non-emergency contact if: you have any medication questions and your temperature is above 100.5 Follow-up/Referrals: Arjun Portillo MD [Physician] - (Please follow up with Dr. Portillo in 2-3 weeks.) Otto Flynn Jr, MD, [facility] [Physician] - (Please follow up in 2-4 weeks.) Edy Ornelas MD [Primary Care Provider] - Diet: Regular Addtl Provider Instructions: Ms. Jameson was admitted to the hospital with shortness of breath that was considered to be multifactorial from her CHF, her COPD, and chronic deconditioning. She did well, and was at baseline by her discharge. She will follow up with cardiology and her PCP. Please get a BMP checked in 1 week to ensure stable kidney function and electrolytes. Prescriptions: New guaifenesin [Mucinex] 600 mg Tablet Extended Release 12hr 600 mg PO Q12 Qty: 1 RF: 0 budesonide 0.5 mg/2 mL Suspension For Nebulization 0.5 mg NEB BIDR Qty: 1 RF: 0 Continued acetaminophen [Tylenol Extra Strength] 500 mg Tablet 500 mg PO Q6H PRN (Reason: Pain) RF: 0 Brovana 15 mcg/2 mL Solution For Nebulization 15 mcg Inhalation BIDR Qty: 120 RF: 3 ipratropium-albuterol 0.5 mg-3 mg(2.5 mg base)/3 mL Solution For Nebulization 3 ml NEB Q4R Qty: 180 RF: 3 pantoprazole 40 mg Tablet,Delayed Release (Dr/Ec) 40 mg PO BID Qty: 60 RF: 2 ferrous sulfate 325 mg (65 mg iron) Tablet,Delayed Release (Dr/Ec) 325 mg PO QAM Qty: 60 RF: 0 prednisone 20 mg Tablet 40 mg PO DAILY Qty: 16 RF: 0 lorazepam 0.5 mg tablet 0.5 mg PO Q8H PRN (Reason: anxiety) Qty: 3 RF: 0 atorvastatin 80 mg Tablet 80 mg PO HS RF: 0 albuterol sulfate 2.5 mg /3 mL (0.083 %) Solution For Nebulization 2.5 mg INHALATION Q4 PRN (Reason: Shortness Of Breath Or Wheezing) RF: 0 clopidogrel 75 mg Tablet 75 mg PO QAM RF: 0 aspirin [Aspir-81] 81 mg Tablet,Delayed Release (Dr/Ec) 81 mg PO HS RF: 0 potassium chloride 20 mEq Tablet,Er Particles/Crystals 20 meq PO QAM RF: 0 pramipexole 0.25 mg Tablet 0.25 mg PO HS RF: 0 lisinopril 5 mg Tablet 5 mg PO QAM RF: 0 fluticasone propionate 50 mcg/actuation [place],Suspension 2 spray INTRANASAL QAM RF: 0 sertraline 50 mg Tablet 50 mg PO HS RF: 0 ezetimibe 10 mg Tablet 10 mg PO HS RF: 0 sodium chloride [[place] Nasal] 0.65 % Aerosol,[place] 1 spray INTRANASAL DIRECTED PRN (Reason: Nasal Congestion) RF: 0 ondansetron HCl [Zofran] 4 mg tablet 4 mg PO Q6H PRN (Reason: nausea and vomiting) Qty: 10 RF: 0 Changed furosemide [Lasix] 40 mg Tablet 40 mg PO BID Qty: 0 RF: 0 carvedilol 12.5 mg Tablet 25 mg PO BID Qty: 0 RF: 0 Stand-Alone Forms: [facility] Discharge Orders: Discharge Order (Routine); Ordered 01/14/19 Ordered By: Carlos Taveras Skilled Items Patient informed of condition?: Yes DNR: Yes Discharge Level of Care: Acute rehab Communicable Disease: No Discharge Prognosis: Stable Admission Data Admit Date/Time: 01/09/19 18:59 Attending Provider: Carlos Taveras Admit Provider: [facility] [place] Primary Care Provider: Edy Ornelas V. Other Providers: [place] ; Arjun Villagran ; Mati Staley ; Girma Shine ; Home,Nursing Agency Service: Medical Other Interventions: Discharge Summary Assessment (RN) Last Done: 01/14/19 13:45 DC Date/Time DO NOT enter until pt leaves facility: 01/14/19 14:40
== END 2019-01-14 14:40 | DRG 190 ==
LOC: ED 04:03 → 2W 04:03 → SUATTDRO 18:59

== ENCOUNTER 2019-02-10 18:21 | Inpatient (IN) ==
--- OUTSIDE RECORDS SUMMARY | 2019-02-10 18:24 | External Medical Summary | Continuity of Care Document ---
:1945 Author Name Suzi Rea, Provider Address Unavailable Unavailable , Care Team Providers Name Role Phone Grace Rea, Edy Unavailable Skylar [email or web address] Otto Flynn M.D. Unavailable [email or web address] Harrison ROGERS Unavailable [email or web address] Emilio ROGERS Unavailable [email or web address] Garland ROGERS Unavailable [email or web address] Ashtyn Zamudio DO Unavailable [email or web address] CRISTO DUNCAN M.D., V Unavailable Unavailab le Unavailable Unavailable Unavailable Problems Chronic kidney disease, stage II (mild) (585.2) (N18.2) Anxiety disorder (300.00) (F41.9) History of Acute right MCA stroke (434.91) (I63.511) Status: Resolved History of diabetes mellitus (V12.29) (Z86.39) Status: Resolved Restless legs syndrome (333.94) (G25.81) Sleep disturbance (780.50) (G47.9) Hypertension (401.9) (I10) Depression (311) (F32.9) Arteriosclerotic coronary artery disease (414.00) (I25.10) Biventricular ICD (implantable cardiover ter-defibrillator) in place (V45.02) (Z95.810) Atrial fibrillation, persistent (427.31) (I48.1) CHF (congestive heart failure), NYHA class II (428.0) (I50.9 ) Chronic obstructive pulmonary disease (496) (J44.9) Low back pain (724.2) (M54.5) Back pain (724.5) (M54.9) History of Subarachnoid hemorrhage (430) (I60.9) Status: Resolved Hypoxia (799.02) (R09.02) CVA (cerebral vascular accident) (434.91) (I63.9) Hyperlipidemia (272.4) (E78.5) Cardiomyopathy, ischemic (414.8) (I25.5) Arteriosclerosis of carotid artery (433.10) (I65.29) CAD (coronary artery disease) (414.00) (I25.10) Encephalomalacia (348.89) (G93.89) Hyponatremia (276.1) (E87.1) Flu vaccine need (V04.81) (Z23) Cerebrovascular accident, hemorrhagic (431) (I61.9) Mesenteric ischemia, chronic (557.1) (K55.1) Chronic constipation (564.00) (K59.09) Intermittent claudication (443.9) (I73.9) PAD (peripheral artery disease) (443.9) (I73.9) Left bundle-branch block (426.3) (I44.7) Breast cancer screening (V76.10) (Z12.31) ICD (implantable cardioverter-defibrillator) in place (V45.0 2) (Z95.810) Mitral regurgitation (424.0) (I34.0) Influenza vaccine needed (V04.81) (Z23) Hypomagnesemia (275.2) (E83.42) Osteoporosis screening (V82.81) (Z13.820) Right carotid bruit (785.9) (R09.89) Lymphadenopathy (785.6) (R59.1) Chronic reflux esophagitis (530.11) (K21.0) COPD exacerbation (491.21) (J44.1) Dyspnea (786.09) (R06.00) Fall (E888.9) (W19.XXXA) Cellulitis of leg without foot, right (682.6) (L03.115) Anemia (285.9) (D64.9) Vitamin D deficiency (268.9) (E55.9) Former smoker (V15.82) (Z87.891) Bruises easily (782.9) (R23.8) Gait disturbance (781.2) (R26.9) Allergies and Adverse Reactions Morphine Derivatives (Allergy) Reaction: Gatrointestinal upset Sulfa Drugs (Allergy) Reaction: Rash Medications Furosemide 40 MG Oral Tablet; Take 1 tablet twice daily Refills: 0 Metoclopramide HCl - 5 MG Oral Tablet; TAKE 1 TABLET 3 TIMES DAILY. Rose Marie Duncan M.D. Start: 10-Feb-2019 Quantity: 10 Ralitsa Refills: 0 Pramipexole Dihydrochloride 0.25 MG Oral Tablet; TAKE 1 TABLET BY MOUTH ONCE DAILY IN THE EVENING Álvaro Edwards Start: 02-Jan-2019 Quantity: 90 Ralitsa Refills: 3 OneTouch Delterrence Lancsrinivasan Fine; USE DIRECTED. Francisco dunlap M.D. Start: 21-Feb-2018 Quantity: 100 Ralitsa Refills: 5 Acetaminophen 500 MG Oral Tablet; TAKE 1 TABLET Every 6 hour s PRN pain Refills: 0 LORazepam 0.5 MG Oral Tablet; TAKE TABLET Every 8 hours PRN Refills: 0 Pantoprazole Sodium 40 MG Oral Tablet De layed Release; Take 1 tablet twice daily Refills: 0 Brovana 15 MCG/2ML Inhalation Nebulizati on Solution; USE 1 UNIT DOSE VIA NEBULIZER TWO TIMES A DAY (DX: J44.9) Álvaro Edwards Start: 30-Dec-2018 Quantity: 60 Ralitsa 60 x 2 ML Plas Cont Refills: 5 Mucinex 600 MG Oral Tablet Extended Rele ase 12 Hour; TAKE 1 TABLET EVERY 12 HOURS NEEDED FOR CONGESTION. Start: 17-Feb-2018 Refills: 0 Potassium Chloride Luciana ER 20 MEQ Oral T ablet Extended Release; TAKE 1 TABLET BY MOUTH EVERY DAY Álvaro Edwards Quantity: 90 Ralitsa Refills: 3 Ezetimibe 10 MG Oral Tablet; TAKE ONE TABLET BY MOUTH AT BEDTIME KEN Jhaveri Start: 19-Aug-2018 Quantity: 90 Refills: 3 Sertraline HCl - 50 MG Oral Tablet; TAKE 1 TABLET MITUL Y BY MOUTH DIRECTED. Álvaro Flynn Quantity: 90 Refills: 3 OneTouch Ultra Blue In Vitro Strip; USE ONE TEST STRIP TO CHECK BLOOD GLUCOSE ONCE EVERY DAY Álvaro Edwards Start: 19-Oct-2011 Quantity: 100 Ralitsa Refills: 2 Aspirin 81 MG TABS; TAKE 1 TABLET DAILY. Campos bosch M.D. Start: 28-Nov-2012 Refills: 5 Ralitsa Oxygen; 2 1/2 l /NC /29/04 Álvaro Edwards Start: 21-Jan-2018 Refills: 0 Ralitsa Budesonide 0.5 MG/2ML Inhalation Suspens ion; USE 1 UNIT DOSE VIA NEBULIZER TWO TIMES A DAY *RINSE MOUTH AFTER USE* (DX: J44.9) Álvaro Edwards Start: 05-Feb-2019 Quantity: 60 Ralitsa 30 x 2 ML Plas Cont Refills: 5 Zofran 4 MG Oral Tablet; TAKE 1 TABLET Every 6 hours PRN yves sea Start: 04-Nov-2018 Refills: 0 Vitamin D (Ergocalciferol) 82868 UNIT Oral Capsule; TA KE 1 CAPSULE Weekly KEN Haque Start: 21-Apr-2018 Quantity: 12 Refills: 2 [employer] Ultra 2 w/Device Kit; Pt tests 1 time daily Hector Allen M.D. Start: 03-Dec-2017 Quantity: 1 Ralitsa Refills: 0 Atorvastatin Calcium 80 MG Oral Tablet; TAKE 1 TABLET AT BEDTIME. Álvaro Flynn Quantity: 90 Refills: 1 Albuterol Sulfate (2.5 MG/3ML) 0.083% In halation Nebulization Solution; USE 1 UNIT DOSE IN NEBULIZER EVERY 4 TO 6 HOURS NEEDED. Álvaro Edwards 60 x 3 ML Plas Cont Quantity: 1 Ralitsa Refills: 3 [place] Nasal [place] 0.65 % Nasal Solution; USE 2 SPRAYS, NASALLY, EVERY ONE HOUR NEEDED FOR NASAL CONGESTION. Start: 17-Feb-2018 Refills: 0 45 ML Bottle Fluticasone Propionate 50 MCG/ACT Nasal Suspension; USE 2 SPRAYS IN EACH NOSTRIL ONCE DAILY Start: 17-Feb-2018 Refills: 0 9.9 ML Bottle Lisinopril 2.5 MG Oral Tablet; TAKE 1 TABLET DAILY. DANAE Jhaveri Start: 26-Mar-2017 Quantity: 90 Refills: 3 Carvedilol 12.5 MG Oral Tablet; TAKE 1 & 1/2 TABLETS TWICE DAILY, WITH MORNING AND EVENING MEAL Álvaro Edwards Start: 02-Jan-2012 Refills: 0 Ralitsa Clopidogrel Bisulfate 75 MG Oral Tablet; take 1 tablet by mouth once daily KEN Terry Start: 02-Jan-2019 Quantity: 90 Refills: 3 Procedures History of Carotid Thromboendarterectomy Status: Completed History of Total Abdominal Hysterectomy With Removal Of Both Status: Completed Ovaries History of Neuroplasty Decompression Median Nerve At Carpal Status: Completed Tunnel Immunizations Influenza (Nasal) On: Oct-2012 Pneumococcal polysaccharide vaccine, 23 valent On: 3 Influenza On: 13-Aug-2013 14:45 Lot #: [id number], SANOFI PASTEUR Fluzone High-Dose Intramuscular Suspension On: 22-Aug-2015 9 :36 Lot #: [id number], SANOFI PASTEUR Fluzone High-Dose Intramuscular Suspension On: 13-Jul-2016 11 :32 Lot #: [id number], SANOFI PASTEUR Fluzone High-Dose Intramuscular Suspension On: 03-Jul-2017 1 2:34 Lot #: [id number], SANOFI PASTEUR Family History Mother Family history of Acute Myocardial Infarction (V17.3) Status : Active Father Family history of Acute Myocardial Infarction (V17.3) Status : Active Sister Family history of Renal Disease Status: Active Family history of Diabetes Mellitus (V18.0) Status: Active Social History - Smoking Status Smoker. current status unknown Former smoker Plan of Treatment Planned Encounters Appointment; Kash Zamudio DO Start: 05-Mar-2019 9:30 Reques t Planned Observations Planned Goals not documented Results CT chest wo con (Pending) Laboratory: [facility] Diagnostic Imagi ng 1800 Cassia Yanes [facility] DANAE 12-Jan-2019 16:20 CT chest wo con [facility] [place] [phone] CT Scan Report Patient: CHARO EAGLE Admit Date: 01/09/19 MR#: [id number] Address1: [address] [facility] Acct ID:[id number] Address2: Date: 1945 [facility] Zip: [facility] [place] [address] Age: 73 Location: 2W Sex: F Room/B ed: W252-1 Att Phy: Sam Rm MD, PhD Diagnosis: ACUT E ON CHRONIC RESPIRATORY FAILURE, CHOWDHURY Shona Phy: RV. Edwards [facility] Date: 01/12/19 Fam Phy: Interpreting Phy: Antonio Mabry Admit Phy: Negro West M.D. Ordering Phy: Arjun Portillo MD cc: CT SCAN OF THE CHEST WITHOUT IV CONTRAST CLINICAL HISTORY: Left lower lobe atelectasis. COMPARISON STUDY: Chest x-ray dated 01/09/2019. Chest CT scans dated 11/22/2018 and 03/15/2016. TECHNIQUE: CT scan of th e thorax was performed from the thoracic i nlet to the upper abdomen. Images are reviewe d in the axial, sagittal, and coronal planes. IV contrast was not administered forthis examination as per the referring clinici an. A dose lowering technique was utilized adhering tothe principles of ALARA. CT DOSE: 182.15 mGycm FINDINGS: Thyroid: Imaged portions of the thyroid gland are normal in size and attenuation . Thoracic aorta: There is advanced atherosclerotic calcification of the thoracic aorta, which is normal in calib er and demonstrates standard 3-vessel arch anatomy. Heart: A 3-lead cardiac AI CD is present in the left chest wall. The h eart is enlarged and without pericardial effusion. The pulmonary trunk is dilated , measuring 4 cm diameter. This suggests pulmonary artery hypertension. Lung s and pleural spaces: Advanced emphysemato us change is identified. There is patchy airspace consolidation at the right lung base as well as trace bilateral pleural effusions. There is significantly improv ed aeration at the left lung base as compar ed to 11/22/2018, with only residual subsegmental atelectasis is identified. Mediastinum: There is no mediastinal lymphadenopathy. Earline: Not well assessed without IV contrast. Axill ae: There is no axillary lymphadenopathy. Upper abdomen: Partially visualized uppe r abdominal viscera is within normal limit s. Skeletal structures: The skeletal structures are osteopenic. There are compression deformities of T3, T4, T5, T 6, T10, and L1. No lytic or blastic bony lesions are seen. IMPRESSION: 1. Advanced emphysema. 2. Cardiomeg cyndi and AICD with evidence of pulmonary estela ry hypertension. 3. There is patchy airspace consolidation at the right lung base and trace pleural effusions. Correl ate clinically for evidence of pneumonia/aspiration pneumonitis. Radiographic follow-up to resolution is recommended. 4. There is significan tly improved aeration at the left lung base as compared to 11/22/2018. There is only mil d residual subsegmental atelectasis identified. 5. Additional findings as above. Electronically signed by: Antonio Astorga M.D. 01/12/2019 4:26 PM Dictated: 01/12/19 162 Transcribed: 01/12/19 162 Ultrasound Chest Mediastinum Effusion Laboratory: [facility] Diag nostic Imaging 1800 (Pending) [place] [facility]-Jan-[place] 18:27 US CHEST MEDIASTINUM EFFUSION [place] Ultrasound Report Patient: CHARO EAGLE Admit Date: 01/09/19 MR#: [id number] Address1: [address] [place] [address] Acct ID:[id number] Address2: Hunter e: 1945 [facility] Zip: [place] [address] Age: 73 Location: 2W Sex: F Room/Bed: [facility] Att Phy: Arcenio Rm MD, PhD Diagnosis: ACUTE ON CHRONIC RESPIRATO RY FAILURE, CHOWDHURY Shona Phy: RV. Edwards MD Servi ce Date: 01/12/19 Fam Phy: Interpreting Phy: Demond Mabry Admit Ph y: Negro West M.D. Ordering Phy: Arjun Portillo MD cc: ULTRASOUND PLEURAL SPACE S CLINICAL HISTORY: Pleural effusion. COMPARISON STUDY: Chest CT dated 9. FINDINGS: Real-time grayscale sonogra phy of the pleural spaces is performed. No pleural effusion isidentified on the lef t. There is trace right pleural effusion on the right with an estimated volume of 4 cc. IMPRESSION: 1. Trace right pleural effusion. 2. No left pleural effusi on is identified. Electronically signed by: Antonio Astorga M.D. 9 6:28 PM Dictated: 01/12/191826 Transcribed: 01/12/191826 X-Ray Chest 1 View Portable (Pending) Laboratory: [facility] Diag nostic Imaging 1800 Cassia [facility] 18-Jan-2019 19:59 X-Ray Chest 1 VW Portable (CXR1P) [facility], [place] [phone] XRay Report Wendie ent: CHARO EAGLE Admit Date: 01/18/19 MR#: [id number] Address1: [address] [facility] Acct ID:[id number] Address2: Hunter e: 1945 [facility] Zip: [place] [address] Age: 73 Location: ED Sex: F Room/Bed: At t Phy: Diagnosis: SOB Shona Phy: RV. Edwards MD Servi ce Date: 01/18/19 Fam Phy: Interpreting Phy: César Muñoz MD Adm it Phy: Ordering Phy: Shmuel Marie M.D. cc: XR chest 1V portable CLINICAL HISTORY: abd pain pain COMPARISON STUDY: No previous studies for comparison. FINDINGS: Subtle improvement in aeration left base compared to the prior study. Moderate persistentstable cardiomegaly. Mid and upper lungs are clear. Mild chronic prominence of pulmonary vasculature. IMPRESSION: Chronic and postoperative change. Moderate stable cardia megaly. N o acute process. Improved aeration left ba se compared to the prior study The above report was generated using voi ce recognition software. It may contain grammatical, syntax or spelling errors. Electronically signed by: César Muñoz M.D. 01/18/2019 8:00 PM Dictated: 01/18/191958 Transcri bed: 01/18/191958 CT abd pelvis IV con only (Pending) Laboratory: [facility] Diagno stic Imaging 1800 Cassia [facility] 18-Jan-2019 20:43 CT abd pelvis IV con only [facility], [place] CT Scan Report Patient: CHARO EAGLE Admit Date: 01/18/19 MR#: [id number] Address1: [address] Acct ID:[id number] Address2: [place] e: 1945 [facility] Zip: [place] [address] Age: 73 Location: ED Sex: F Room/Bed: At t Phy: Diagnosis: SOB Shona Phy: RV. Edwards MD Servi ce Date: 01/18/19 Fam Phy: Gisell Vanessa D.O. Interpreting Phy: César Muñoz MD Admit Phy: Ordering Ph y: Shmuel Marie M.D. cc: CT abd pelvis IV con onl y CT DOSE: 241.34 mGy.cm HISTORY: P ain lower abd pain TECHNIQUE: Multiaxia l CT images of the abdomen and pelvis were performed following the use of intraveno us contrast. A dose lowering technique was utilized adhering to the principles of ALARA. COMPARISON STUDY: None. FINDINGS: Atelectatic change both lung bases. Artifact versus small potential t hird order filling defects of the right lower lobe pulmonary arterial vasculature. Cardiomegaly. Liver enhances uniformly. Gallstones. Kidneys negative for hydronephrosis. Several nonobstructing r enal calcifications present bilaterally. Advanced atherosclerotic changes identif ied throughout the abdominal and pelvic estela rial vasculature. Moderate wall edema wi th moderate pericolonic infiltrative change primarily of the descending colon. Parti al involvement of the proximal sigmoid. The cecum and appendix appear unremarkab le. No significant free fluid within the pel felipa cul-de-sac.Bladder is midline. IMPRESSION: 1. Nonspecific colitis involving the descending and proximal sigmoid colon. 2. Wall thickenin g as well as moderate pericolonic infiltrativ e change. 3. No evidence for abscess collection or obstruction. 4. Extensiv e atherosclerotic change throughout the abdominal and pelvic arterial vasculatur e which has been described previously. 5 . Bibasilar atelectatic change with artifa ct versus small filling defects of pulmonar y arterial structures of the right base. 6. CTA chest for pulmonary embolus is sugge sted as follow-up. The above repo rt was generated using voice recognition software. It may contain grammatical, syntax or spelling errors. Electronically signed by: César Muñoz M.D. 01/18/2019 8:50 PM Dictated: 01/18/192042 Transcribed: 01/18 CT (Chest for PE)Angiography with Laboratory: [facility] [employer] [facility] 1800 Contrast (Pending) [place] [facility] 18-Jan-[place] 21:39 CT CHEST FOR PE ANGIO WITH [facility], DANAE CT Scan Report Patient: CHARO EAGLE Admit Date: 01/18/19 MR#: [id number] Address1: [address] [facility] Acct ID:[id number] Address2: [place] e: 1945 [facility] [address] Age: 73 Location: ED Sex: F Room/Bed: At t Phy: Diagnosis: SOB Shona Phy: RV. Edwards MD Servi ce Date: 01/18/19 Fam Phy: Gisell Vanessa D.O. Interpreting Phy: César Muñoz MD Admit Phy: Ordering Ph y: Shmuel Marie M.D. cc: CT angio chest PE protoc ol CT DOSE: 183.45 mGy.cm HISTORY: Abnormal CT exam PE TECHNIQUE: Multiaxial CT images of the chest were performed following the intravenous administration of contrast to evaluate t he pulmonary arteries. Maximal intensity projection images were also obtained. A dose lowering technique was utilized adhering to the principles of ALARA. COMPARISON STUDY: CT abdomen same date. CT chest 01/12/2019 FINDINGS: Pulmonary vasculature enhances appropriately. No m ajor filling defect is identified. Components of pulmonary arterial hypertension are agai n noted. Findings at the right base s een in patient's prior CT study appears to relate to technical and/or flow related artifact. Emphysematous change of t he mid of both hemithoraces persist. Modera te cardiomegaly and pulmonary arterial hypertension is noted. Slightly progressive consolidative infiltrate lef t lung base. Moderate increase in bronchovascular and peribronchial markin gs throughout both hemithoraces. IMPRESSION: 1. Study is negative f or major or significant pulmonary embolus. 2. Unchanging parenchymal infiltrate right base with slightly progressive consolidative changes left base. 3. Stable cardiomeg cyndi. 4. CT finding at the lung bases appear s to relate to technical artifact. L5. Mildly progressive peribronchial and bronchovascular congestion 6. Pulmona ry arterial hypertension similar compared t o the prior study. The ab ove report was generated using [employer] tion software. It may contain grammatical, syntax or spelling errors. Electronically signed by: César Muñoz M.D. 01/18/2019 9:46 PM Dictated: 01/18/192138 Transcribed: 01/18 Encounters Appointment; Kyleigh Rice PA-C 12-Jan-2019 10:30 Encounter Diagnosis: Problem not documented Appointment; Lulu Arias PA-C 08-Dec-2018 10:15 Encounter Diagnosis: Problem not documented Appointment; Edy Edwards M.D. 11-Nov-2018 11:40 Encounter Diagnosis: Problem not documented Appointment; Brenda Haque PA-C 05-Jun-2018 14:30 Encounter Diagnosis: Problem not documented Appointment; Brenda Haque PA-C 21-Apr-2018 16:30 Encounter Diagnosis: Problem not documented Appointment; Miri Terry PA-C 21-Apr-2018 13:00 Encounter Diagnosis: Problem not documented Appointment; Brenda Haque PA-C 18-Apr-2018 11:15 Encounter Diagnosis: Problem not documented Appointment; Miri Terry PA-C 10-Apr-2018 15:30 Encounter Diagnosis: Problem not documented Appointment; Edy Edwards M.D. 07-Apr-2018 12:40 Encounter Diagnosis: Problem not documented Appointment; Brenda Haque PA-C 14-Mar-2018 15:30 Encounter Diagnosis: Problem not documented Appointment; Brenda Haque PA-C 03-Feb-2018 13:30 Encounter Diagnosis: Problem not documented Appointment; Otto Flynn M.D. 22-Jan-2018 9:30 Encounter Diagnosis: Problem not documented Appointment; Edy Edwards M.D. 11:20 Encounter Diagnosis: Problem not documented Appointment; Gisell Zamudio PA-C 12-Dec-2017 10:00 Encounter Diagnosis: Problem not documented Appointment; Otto Flynn M.D. 11-Dec-2017 11:00 Encounter Diagnosis: Problem not documented Appointment; Brenda Haque PA-C 05-Dec-2017 10:15 Encounter Diagnosis: Problem not documented Appointment; Pharmacy, Primary Care 05-Dec-2017 10:15 Encounter Diagnosis: Problem not documented Appointment; Dilip Fernandes M.D. 25-Nov-2017 15:15 Encounter Diagnosis: Problem not documented Appointment; Otto Flynn M.D. 25-Nov-2017 10:30 Encounter Diagnosis: Problem not documented Appointment; Edy Edwards M.D. 7 15:20 Encounter Diagnosis: Problem not documented Appointment; Brenda Haque PA-C 22-Aug-2017 13:00 Encounter Diagnosis: Problem not documented Appointment; [facility], Primary Care 22-Aug-2017 12:30 Encounter Diagnosis: Problem not documented Appointment; Edy Edwards M.D. 7 11:00 Encounter Diagnosis: Problem not documented Appointment; Laura Jhaveri PA-C 25-Jul-2017 13:00 Encounter Diagnosis: Problem not documented Appointment; Laura Jhaveri PA-C 11-Jul-2017 14:30 Encounter Diagnosis: Problem not documented Appointment; Edy Edwards M.D. 7 11:20 Encounter Diagnosis: Problem not documented Appointment; Edy Edwards M.D. 08-May-2017 12:40 Encounter Diagnosis: Problem not documented Appointment; Laura Jhaveri PA-C 25-Apr-2017 9:30 Encounter Diagnosis: Problem not documented Appointment; Dilip Fernandes M.D. 22-Apr-2017 12:00 Encounter Diagnosis: Problem not documented Appointment; Edy Edwards M.D. 7 11:40 Encounter Diagnosis: Problem not documented Appointment; Chester Chase DO 28-Mar-2017 15:00 Encounter Diagnosis: Problem not documented Appointment; Laura Jhaveri PA-C 26-Mar-2017 13:00 Encounter Diagnosis: Problem not documented Appointment; [place] [id number], Nursing [facility] 25-Mar-2017 10:15 Encounter Diagnosis: Problem not documented Appointment; Jeffrey Sosa PA-C 20-Mar-2017 15:00 Encounter Diagnosis: Problem not documented Appointment; Laura Jhaveri PA-C 20-Mar-2017 14:00 Encounter Diagnosis: Problem not documented Appointment; Brenda Haque PA-C 26-Feb-2017 13:00 Encounter Diagnosis: Problem not documented Appointment; [facility], Nursing Station 22-Feb-2017 10:00 Encounter Diagnosis: Problem not documented Appointment; Dilip Fernandes M.D. 21-Feb-2017 8:00 Encounter Diagnosis: Problem not documented Appointment; Edy Edwards M.D. 15:40 Encounter Diagnosis: Problem not documented Appointment; Kash Zamudio DO 05-Mar-2019 9:30 Encounter Diagnosis: Problem not documented
[2019-02-10] MEDS ORDERED: LEVALBUTEROL HCL 1.25 MG/3 ML NEB NEB STA (18:33)
[2019-02-10] MEDS ORDERED: LORazepam 1 MG TAB SL STA ×2 (18:35→21:25)
[2019-02-10] MEDS ORDERED: SODIUM CHLORIDE 0.9% 500 ML IV SCH (18:45)
[2019-02-10 18:54] LABS: Basophils # (auto) 0.02 K/uL (0-0.2); Basophils % (auto) 0.2 %; Eosinophils # (auto) 0.01 K/uL (0-0.5); Eosinophils % (auto) 0.1 %; Hematocrit (blood only) 28.1 % (37-47); Immature Granulocytes # (auto) 0.04 K/uL (0.00-0.02); Immature Granulocytes % (auto) 0.4 %; Lymphocytes # (auto) 2.16 K/uL (1.2-3.4); Mean Corpuscular Volume 91.8 fL (80-100); Mean Platelet Volume 8.9 fL (7.4-10.4); Monocytes # (auto) 0.97 K/uL (0.11-0.59); Monocytes % (auto) 10.8 %; Neutrophils # (auto) 5.81 K/uL (1.4-6.5); Neutrophils % (auto) 64.5 %; Platelet Count 291 K/uL (130-400); RDW Coefficient of Variation 22.7 % (11.5-14.5); RDW Standard Deviation 76.2 fL (36.4-46.3); Red Blood Count 3.06 M/uL (4.2-5.4); White Blood Count 9.01 K/uL (4.8-10.8)
[2019-02-10 18:59] LABS: iSTAT Hemoglobin 9.2 g/dl (12.0-16.0); iSTAT Ionized Calcium 1.15 mmol/l (1.12-1.32); iSTAT Potassium 4.3 mEq/L (3.3-5.0)
[2019-02-10] MEDS ORDERED: GI COCKTAIL ED USE PO ONE (19:09)
[2019-02-10] MEDS ORDERED: FAMOTIDINE 20 MG TAB PO ONE (19:09)
[2019-02-10] MEDS ORDERED: SUCRALFATE 1 GM TAB PO STA (19:09)
[2019-02-10 19:13] LABS: Albumin Level 2.6 gm/dl (3.4-5.0); BUN Creatinine Ratio 40.8 (10-20); Calcium 9.1 mg/dl (8.5-10.1); Creatinine Clr Calc Pharmacy 35.8 ml/min; Est GFR (African American) 69.3; Est GFR (Non-African American) 59.8; Potassium 4.4 mmol/L (3.5-5.1)
[2019-02-10 19:19] LABS: Acanthocytes 1+; Anisocytosis Present; Ovalocytes 1+; Tear Drop Cells 1+
[2019-02-10 19:20] LABS: Appearance Urine Cloudy (Clear); Bacteria Urine Automated Negative (Negative); Bilirubin Urine Negative (Negative); Blood Urine Trace (Negative); Color Urine Yellow; Epithelial Cell Urine Auto 0-5 /lpf (0-5); Glucose Urine UA Negative (Negative); Ketones Urine Negative (Negative); Leukocyte Esterase Urine 2+ (Negative); Nitrite Urine Negative (Negative); Protein Urine Trace (Negative); RBC Urine Automated 0-4 /hpf (0-4); Urobilinogen Urine Negative (Negative); WBC Urine Automated >30 /hpf (0-5)
--- NOTE | 2019-02-10 19:26 | XRay Report ---
XR chest 1V portable HISTORY: 73 years-old Female weakness acute weakness COMPARISON: Chest radiograph 01/18/2019 TECHNIQUE: Portable AP view of the chest FINDINGS: Cardiac silhouette is moderately enlarged. Stable positioning of the left subclavian pacer/AICD. Calc ification of the thoracic aortic arch. No pneumothorax, pleural effusion, focal airspace consolidatio n or overt pulmonary edema. Degenerative changes of the shoulders and spine. IMPRESSION: Cardiomegaly without acute process. The above report was generated using voice recognition software. It may contain grammatical, syntax o r spelling errors. Electronically signed by: Angelito Portillo M.D. 02/10/2019 7:25 PM
[2019-02-10 19:32] LABS: Albumin Globulin Ratio 0.9 (0.9-2); Bilirubin,Total 0.4 mg/dl (0.2-1); Globulin 2.9 gm/dl (2.5-4.0); Total Protein 5.5 gm/dl (6.4-8.2); Troponin I 0.089 ng/ml (0-0.045)
[2019-02-10 19:48] LABS: T4 Free Thyroxine 1.5 ng/dl (0.8-1.6)
[2019-02-10] MEDS ORDERED: IOVERSOL 100ml IV PRN (19:55)
--- NOTE | 2019-02-10 20:15 | CT Scan Report ---
CT OF THE HEAD WITHOUT CONTRAST CLINICAL HISTORY: Nausea. Multiple falls. COMPARISON STUDY: Head CT August 16, 2017. CT DOSE: 537.48 mGy.cm TECHNIQUE: Helical axial images of the head were obtained without IV contrast. Automated exposure con trol was utilized for the study. A dose lowering technique was utilized adhering to the principles o f ALARA. FINDINGS: No acute intracranial hemorrhage, midline shift or mass effect is present. Encephalomalacia within the right MCA territory with calcified laminar necrosis is chronic. The ventricular system is unremarkable. The basilar cisterns are patent. There are no extra axial collections. There are no fi ndings to suggest acute dural sinus thrombosis or acute territorial infarct. White matter hypodensity suggests small vessel disease. There is no calvarial fracture. IMPRESSION: 1. No acute intracranial findings. 2. Old right MCA territory infarct. 2. No calvarial fracture. Electronically signed by: Bora Schmitt M.D. 02/10/2019 8:14 PM
--- NOTE | 2019-02-10 20:27 | CT Scan Report ---
CT OF THE ABDOMEN AND PELVIS WITH CONTRAST CLINICAL HISTORY: Nausea. COMPARISON STUDY: CT of the abdomen and pelvis January 25, 2019. TECHNIQUE: Following IV administration of 95 mL of Optiray-320, axial images of the abdomen and pelvi s were obtained from the lung bases to the proximal femurs. Images were reviewed in the axial, sagitt al, and coronal planes. IV contrast was administered without complication. Automated exposure contro l was utilized for the study. A dose lowering technique was utilized adhering to the principles of A SOLEDAD. CT DOSE: 227.12 mGy.cm FINDINGS: Cardiomegaly is noted. Bibasilar opacities favor atelectasis. No pneumatosis, free air or p ortal venous gas is present. The liver, spleen, adrenal glands and pancreas are unremarkable. Pancrea s divisum is noted. There are bilateral renal cysts. There are gallstones within the gallbladder with out evidence for acute cholecystitis. The abdominal aorta is ectatic. There is extensive atherosclero tic plaque of the abdominal aorta and branch vessels which are suboptimally assessed on this non-CTA exam. No bowel wall thickening is noted. There is no evidence for a bowel obstruction. The appendix i s normal. There is no ascites or lymphadenopathy. No suspicious skeletal lesions are noted. Old L1 co mpression fractures unchanged. IMPRESSION: 1. No acute process within the abdomen or pelvis. 2. Cholelithiasis. 3. Extensive atherosclerotic plaque of the abdominal aorta and branch vessels, suboptimally assessed on this non-CTA exam. Electronically signed by: Bora Schmitt M.D. 02/10/2019 8:26 PM
[2019-02-10] MEDS ORDERED: FUROSEMIDE 40 MG/4 ML VIAL IV STA (20:49)
[2019-02-10] MEDS ORDERED: PRAMIPEXOLE DIHYDROCHLO 0.25 MG TAB PO STA (23:14)
[2019-02-11] MEDS ORDERED: PROCHLORPERAZINE MALEATE 10 MG TAB PO PRN (00:01)
[2019-02-11] MEDS ORDERED: DICYCLOMINE HCL 10 MG CAP PO PRN (00:01)
[2019-02-11] MEDS ORDERED: TRAMADOL HCL 50 MG TABLET PO PRN (00:01)
[2019-02-11] MEDS ORDERED: SODIUM CHLORIDE 0.65% NA SOLN 45 ML (OCEAN) NAE PRN (00:01)
[2019-02-11] MEDS ORDERED: ALBUTEROL 0.083% NEBU SOLN 3 ML VIAL INH PRN (00:01)
[2019-02-11] MEDS ORDERED: FLUTICASONE PROPIONATE NA SPR 16 GM BTL NAE PRN (00:01)
[2019-02-11] MEDS ORDERED: ACETAMINOPHEN 500 MG TAB PO PRN (00:01)
[2019-02-11] MEDS ORDERED: ONDANSETRON 4 MG TAB PO PRN (00:01)
[2019-02-11 00:16] LABS: Phosphorus 3.9 mg/dl (2.5-4.9)
[2019-02-11] MEDS: ALBUT/IPRATROP 3MG/0.5MG NEB 3 ML VIAL NEB SCH ×7 (00:53→23:05)
--- NOTE | 2019-02-11 02:23 | History & Physical Report ---
Date of Service February 10, 2019 Assessment & Plan (1) Abdominal pain: Patient presents with dull, crampy post-prandial abdominal pain. History of CAD, carotid stenosis s/p endarterectomy, CKD. Extensive atherosclerotic plaques noted on non-contrast abdominal CT from ER. Concern for chronic me senteric ischemia / intestinal angina. -Observation to medical floor. Keep NPO -Obtain CTA abdomen and pelvis -Consider Vascular Surgery consultation pending results of CTA -Continue CAD home medications, ASA, Atorvastatin, Plavix, Carvedilol, Zetia -Continue Tramadol, Compazine, Protonix, Zofran, Reglan and Bentyl PRN. Patient has been taking these medications at home. Hopefully will be able to decrease medication burden prior to DC Present on Admission?: Yes (2) Cachexia: Patient cachectic/sarcopenic. Albumin=2.6. Reports poor appetite and decreased PO intake. -Consult Nutrition services for supplements -PT/OT evaluation for complaint of weakness Present on Admission?: Yes (3) Chronic kidney disease, stage 3a: BUN and Cr near baseline, electrolytes WNL -Continue to monitor BUN, Cr and electrolytes -Avoid nephrotoxic agents -Renal dosing where appropriate Present on Admission?: Yes (4) Iron deficiency anemia: Patient with normochromic/normocytic anemia, Hg=9, Hct=28.1 which is near her baseline. No active bleeding -Continue PO iron supplement -Continue to monitor CBC Present on Admission?: Yes (5) Atrial fibrillation: Patient V-paced. Not presently on anticoagulation -Continue to monitor Present on Admission?: Yes (6) Dyslipidemia: Chronic -Continue Zetia and Atorvastatin Present on Admission?: Yes (7) Hypertension: Blood pressure stable -Continue Carvedilol, Lisinopril, Lasix Present on Admission?: Yes (8) COPD (chronic obstructive pulmonary disease): Chronic. Patient reports stable SOB. No cough, sputum or wheeze -Continue home agents - Albuterol/Ipratropium, Albuterol PRN, Arfomoterol, Budesonide Present on Admission?: Yes (9) CAD (coronary artery disease): No CP. No evidence of acute ischemia on EKG. Patient with ICM, chronic systolic CHF. Appear well compensated at present. Mildly elevated troponin at 0.089 which appears to be chronic -Continue ASA, Plavix, Carvedilol, Lisinopril, Atorvastatin and Zetia -Continue to monitor (10) Chronic systolic (congestive) heart failure: Patient appears [place]. [place] [address] - chronically elevated -Continue Carvedilol, Lasix, Lisinopril -Continue to monitor (11) Anxiety: Patient appears anxious in ER -Continue Sertraline -Continue home Ativan Present on Admission?: Yes (12) Restless leg syndrome: Chronic. Quite symptomatic in ER -Continue Mirapex F/E/N - Heplock. Monitor electrolytes and replete as needed, continue PO Klor- Con with daily BMP, NPO for now. Nutrition consult as above Ppx - Lovenox Code - DNR per discussion with patient Dispo - Observation to medical floor History of Present Illness Chief Complaint: Abdominal Pain Primary Care Provider: [facility] Bisi Jameson is a 73yo C female with multiple medical comorbidities to include CAD, ischemic cardiomyopathy, CKD, CHF, AF presenting with abdominal pain. Patient reports dull, cramping abdominal pain in the lower abdomen that occurs approximately 30-60 minutes after eating which has been ongoing for a few weeks. Pain is described as moderate in severity, lasts a few hours then resolves spontaneously. She reports that she has constant nausea. Poor appetite and decreased PO intake as well as weakness and gait instability. She denies vomiting, diarrhea, fevers, chills, melena/hematochezia. She reports chronic stable shortness of breath. She was recently at [facility] and was treated for colitis with antibiotics x 14 days. She was discharged home 1-2 weeks ago. No additional complaints at this time. Allergies Allergy/AdvReac Type Severity Reaction Status Date / Time Sulfa (Sulfonamide Allergy Intermediate RASH Verified 02/10/19 19:20 Antibiotics) morphine AdvReac Mild GI SYMPTOMS Verified 02/10/19 19:20 Home Medications Home Medications Medication Instructions Recorded Confirmed Type albuterol sulfate 2.5 mg INHALATION Q4 PRN 10/24/18 02/10/19 History aspirin [Aspir-81] 81 mg PO HS 10/24/18 02/10/19 History atorvastatin 80 mg PO HS 10/24/18 02/10/19 History clopidogrel 75 mg PO QAM 10/24/18 02/10/19 History ezetimibe 10 mg PO HS 10/24/18 02/10/19 History fluticasone propionate 2 spray INTRANASAL QAM PRN 10/24/18 02/10/19 History potassium chloride 20 meq PO QAM 10/24/18 02/10/19 History pramipexole 0.25 mg PO HS 10/24/18 02/10/19 History sertraline 50 mg PO HS 10/24/18 02/10/19 History sodium chloride [[place] Nasal] 1 spray INTRANASAL DIRECTED PRN 10/24/1802/10 History ondansetron HCl [Zofran] 4 mg PO Q6H PRN #10 tab 10/29/18 02/10/19 Rx acetaminophen [Tylenol Extra 500 mg PO Q6H PRN 12/19/18 02/10/19 History Strength] Brovana 15 mcg INHALATION BIDR #120 ml 12/29/18 02/10/19 Rx ipratropium-albuterol 3 ml NEB Q4R #180 ml 12/29/18 02/10/19 Rx pantoprazole 40 mg PO BID #60 tab 12/29/18 02/10/19 Rx ferrous sulfate 325 mg PO QAM #60 tab 01/08/19 02/10/19 Rx budesonide 0.5 mg NEB BIDR #1 ml 01/14/19 02/10/19 Rx furosemide [Lasix] 40 mg PO BID #0 tab 01/14/19 02/10/19 Rx guaifenesin [Mucinex] 600 mg PO Q12 #1 tab 01/14/19 02/10/19 Rx lorazepam 0.5 mg PO Q8H PRN #3 tab 01/14/19 02/10/19 Rx carvedilol 25 mg PO BID 01/25/19 02/10/19 History dicyclomine 10 mg PO QID PRN #20 cap 01/25/19 02/10/19 Rx lisinopril 2.5 mg PO DAILY 01/25/19 02/10/19 History prochlorperazine maleate 10 mg PO Q6H PRN #20 tab 01/25/19 02/10/19 Rx [Compazine] tramadol 50 mg PO Q8H PRN 01/25/19 02/10/19 History metoclopramide HCl 5 mg PO AC 02/10/19 02/10/19 History Past Med/Surg History Medical History Cachexia Demand ischemia Acute and chronic respiratory failure (Acute) Chronic kidney disease, stage 3a Iron deficiency anemia Chronic systolic (congestive) heart failure CAD (coronary artery disease) s/p MT in 1999 Atrial fibrillation Ischemic cardiomyopathy EF 25-30% Dyslipidemia Hypertension Anxiety COPD (chronic obstructive pulmonary disease) (Acute) Non compliance w medication regimen Emphysema of lung Syncope AICD malfunction Acute on chronic systolic (congestive) heart failure Acute and chronic respiratory failure with hypercapnia Acute and chronic respiratory failure with hypoxia Ambulatory dysfunction (Acute) Elevated troponin Left lower lobe pneumonia GIB (gastrointestinal bleeding) Reflux esophagitis SAH (subarachnoid hemorrhage) Surgical History S/P carotid endarterectomy S/P carpal tunnel release S/P hysterectomy S/P implantation of automatic cardioverter/defibrillator (AICD) Family History Father , about age 80 Coronary heart disease from acute MT Mother , age 75 Coronary heart disease had CABG; ultimately from MT Other Heart disease Social History Preferred Language: Tajik Communication Ability: Effective Visual Impairment: No Limitations Hearing Ability: Normal 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 Beliefs That Will Affect Care: None marital status: Current Living Situation: Spouse Current Living Situation Comment: lives in [place]; has 3 children current occupational status: retired Other Information That Helps Us Care for You: 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[employer], 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) Feels Safe at Home: Yes Safety Concerns: Feels Safe At This Time Smoking Status: Former smoker Tobacco Type: cigarettes Cigarettes Per Day: quit 1 month ago; smoked up to 1ppd in the past; started in teenage years Second Hand Exposure: No Hx Alcohol Use: No Hx Substance Use: No Review of Systems Review of Systems: All systems reviewed & are unremarkable except as noted in HPI & below Physical Exam Physical Exam: General: patient resting comfortably, NAD, cachectic, non- toxic in appearance, AA&O x 4 Skin: warm, dry, intact, multiple scattered bruises on UE and LE bilaterally HEENT: NC/AT, PERRL, EOMI, anicteric sclera, conjunctiva without injection, external ear normal to inspection and nontender, nares patent, moist mucus membranes, dentition intact, no oropharyngeal lesions, neck supple, trachea midline, no LAD, no thyromegaly, no JVD Heart: +S1/S2, regular, no m/r/g Lungs: equal air entry bilaterally, no rales/rhonchi/wheezes Abd: +BS, soft, NT/ND, no masses/organomegaly/ascites Ext: warm, 2+ pulses in UE/LE bilaterally, no clubbing/cyanosis or edema Neuro: nonfocal, patient AA&O x 4, speech intact, no facial droop, moving all extremities on command with equal strength 5/5 Results & Data Vital Signs (Past 12 Hours) Vital Signs Temp Pulse Pulse Resp BP BP Pulse Ox 02/11/19 00:55 61 20 98 02/10/19 23:45 37 C 63 16 130/56 L 100 02/10/19 23:36 64 20 133/52 L 99 02/10/19 20:37 67 31 H 133/52 L 99 02/10/19 20:04 70 28 H 92 02/10/19 19:05 61 22 97 02/10/19 19:00 67 22 98 02/10/19 18:33 23 99 02/10/19 18:31 63 22 02/10/19 18:30 36.7 C 64 23 142/55 H 99 02/10/19 18:28 73 23 142/55 H Laboratory Results Lab Results 02/10/19 02/10/19 02/10/19 Range/Units 18:41 18:41 18:44 WBC 9.01 (4.8-10.8) K/uL RBC 3.06 L (4.2-5.4) M/uL Hgb 9.0 L (12.0-16.0) g/dL POC Hgb 9.2 L (12.0-16.0) g/dl Hct 28.1 L (37-47) % POC Hct 27 L (37-47) % MCV 91.8 (80-100) fL MCH 29.4 (25-34) pg MCHC 32.0 (32-36) g/dL RDW Std Deviation 76.2 H (36.4-46.3) fL RDW Coeff of Kiana 22.7 H (11.5-14.5) % Plt Count 291 (130-400) K/uL MPV 8.9 (7.4-10.4) fL Immature Gran % (Auto) 0.4 % Neut % (Auto) 64.5 % Lymph % (Auto) 24.0 % Faulkner % (Auto) 10.8 % Eos % (Auto) 0.1 % Baso % (Auto) 0.2 % Immature Gran # (Auto) 0.04 H (0.00-0.02) K/uL Neut # (Auto) 5.81 (1.4-6.5) K/uL Lymph # (Auto) 2.16 (1.2-3.4) K/uL Faulkner # (Auto) 0.97 H (0.11-0.59) K/uL Eos # (Auto) 0.01 (0-0.5) K/uL Baso # (Auto) 0.02 (0-0.2) K/uL Anisocytosis Present Tear Drop Cells 1+ Ovalocytes 1+ Acanthocytes (Spur) 1+ POC Sodium 136 (135-144) mEq/L Sodium 139 (136-145) mmol/L POC Potassium 4.3 (3.3-5.0) mEq/L Potassium 4.4 (3.5-5.1) mmol/L POC Chloride 99 L (101-112) mEq/L Chloride 105 (98-107) mmol/L Carbon Dioxide 27 (21-32) mmol/L POC Total CO2 26 (24-31) mEq/l Anion Gap 7.0 (3-11) POC Anion Gap 16.0 (16-25) mmol/L POC BUN 35 H (7-18) mg/dl BUN 38 H (7-18) mg/dl Creatinine 0.94 (0.6-1.2) mg/dl POC Creatinine 1.0 (0.6-1.3) mg/dl Est Cr Clr Drug Dosing 35.8 ml/min Est GFR ( Amer) 69.3 Est GFR (Non-Af Amer) 59.8 BUN/Creatinine Ratio 40.8 H (10-20) Glucose 111 H (70-99) mg/dl POC Glucose (other) 117 H (70-99) mg/dl POC Lactic Acid Jonn (0.90-1.70) mmol/L Calcium 9.1 (8.5-10.1) mg/dl POC Ioniz Calcium Sonia 1.15 (1.12-1.32) mmol/l Phosphorus 3.9 (2.5-4.9) mg/dl Magnesium 2.0 (1.8-2.4) mg/dl Total Bilirubin 0.4 (0.2-1) mg/dl AST 16 (15-37) U/L ALT 20 (12-78) U/L Alkaline Phosphatase 48 (45-117) U/L Total Creatine Kinase 26 (26-192) U/L Troponin I 0.089 H* (0-0.045) ng/ml NT-Pro-B Natriuret Pep 33019 H (0-900) pg/ml Total Protein 5.5 L (6.4-8.2) gm/dl Albumin 2.6 L (3.4-5.0) gm/dl Globulin 2.9 (2.5-4.0) gm/dl Albumin/Globulin Ratio 0.9 (0.9-2) TSH 11.900 H (0.300-4.500) uIu/ml Free T4 1.50 (0.8-1.6) ng/dl Urine Color Urine Appearance (Clear) Urine pH (4.5-7.5) Ur Specific Ewing (1.000-1.030) Urine Protein (Negative) Urine Glucose (UA) (Negative) Urine Ketones (Negative) Urine Blood (Negative) Urine Nitrite (Negative) Urine Bilirubin (Negative) Urine Urobilinogen (Negative) Ur Leukocyte Esterase (Negative) Urine WBC (Auto) (0-5) /hpf Urine RBC (Auto) (0-4) /hpf U Hyaline Cast (Auto) (0-5) /lpf U Epithel Cells (Auto) (0-5) /lpf Urine Bacteria (Auto) (Negative) 02/10/19 02/10/19 Range/Units 18:55 21:31 WBC (4.8-10.8) K/uL RBC (4.2-5.4) M/uL Hgb (12.0-16.0) g/dL POC Hgb (12.0-16.0) g/dl Hct (37-47) % POC Hct (37-47) % MCV (80-100) fL MCH (25-34) pg MCHC (32-36) g/dL RDW Std Deviation (36.4-46.3) fL RDW Coeff of Kiana (11.5-14.5) % Plt Count (130-400) K/uL MPV (7.4-10.4) fL Immature Gran % (Auto) % Neut % (Auto) % Lymph % (Auto) % Faulkner % (Auto) % Eos % (Auto) % Baso % (Auto) % Immature Gran # (Auto) (0.00-0.02) K/uL Neut # (Auto) (1.4-6.5) K/uL Lymph # (Auto) (1.2-3.4) K/uL Faulkner # (Auto) (0.11-0.59) K/uL Eos # (Auto) (0-0.5) K/uL Baso # (Auto) (0-0.2) K/uL Anisocytosis Tear Drop Cells Ovalocytes Acanthocytes (Spur) POC Sodium (135-144) mEq/L Sodium (136-145) mmol/L POC Potassium (3.3-5.0) mEq/L Potassium (3.5-5.1) mmol/L POC Chloride (101-112) mEq/L Chloride (98-107) mmol/L Carbon Dioxide (21-32) mmol/L POC Total CO2 (24-31) mEq/l Anion Gap (3-11) POC Anion Gap (16-25) mmol/L POC BUN (7-18) mg/dl BUN (7-18) mg/dl Creatinine (0.6-1.2) mg/dl POC Creatinine (0.6-1.3) mg/dl Est Cr Clr Drug Dosing ml/min Est GFR ( Amer) Est GFR (Non-Af Amer) BUN/Creatinine Ratio (10-20) Glucose (70-99) mg/dl POC Glucose (other) (70-99) mg/dl POC Lactic Acid Jonn 1.63 (0.90-1.70) mmol/L Calcium (8.5-10.1) mg/dl POC Ioniz Calcium Sonia (1.12-1.32) mmol/l Phosphorus (2.5-4.9) mg/dl Magnesium (1.8-2.4) mg/dl Total Bilirubin (0.2-1) mg/dl AST (15-37) U/L ALT (12-78) U/L Alkaline Phosphatase (45-117) U/L Total Creatine Kinase (26-192) U/L Troponin I (0-0.045) ng/ml NT-Pro-B Natriuret Pep (0-900) pg/ml Total Protein (6.4-8.2) gm/dl Albumin (3.4-5.0) gm/dl Globulin (2.5-4.0) gm/dl Albumin/Globulin Ratio (0.9-2) TSH (0.300-4.500) uIu/ml Free T4 (0.8-1.6) ng/dl Urine Color Yellow Urine Appearance Cloudy A (Clear) Urine pH 5.0 (4.5-7.5) Ur Specific Ewing 1.020 (1.000-1.030) Urine Protein Trace H (Negative) Urine Glucose (UA) Negative (Negative) Urine Ketones Negative (Negative) Urine Blood Trace H (Negative) Urine Nitrite Negative (Negative) Urine Bilirubin Negative (Negative) Urine Urobilinogen Negative (Negative) Ur Leukocyte Esterase 2+ H (Negative) Urine WBC (Auto) >30 H (0-5) /hpf Urine RBC (Auto) 0-4 (0-4) /hpf U Hyaline Cast (Auto) 5-10 H (0-5) /lpf U Epithel Cells (Auto) 0-5 (0-5) /lpf Urine Bacteria (Auto) Negative (Negative) Diagnostic Findings XR chest 1V portable HISTORY: 73 years-old Female weakness acute weakness COMPARISON: Chest radiograph 01/18/2019 TECHNIQUE: Portable AP view of the chest FINDINGS: Cardiac silhouette is moderately enlarged. Stable positioning of the left subclavian pacer/AICD. Calcification of the thoracic aortic arch. No pneumothorax, pleural effusion, focal airspace consolidation or overt pulmonary edema. Degenerative changes of the shoulders and spine. IMPRESSION: Cardiomegaly without acute process. The above report was generated using voice recognition software. It may contain grammatical, syntax or spelling errors. Electronically signed by: Angelito Portillo M.D. 02/10/2019 7:25 PM Dictated: 02/10/191923 Transcribed: 02/10/191923 CT OF THE ABDOMEN AND PELVIS WITH CONTRAST CLINICAL HISTORY: Nausea. COMPARISON STUDY: CT of the abdomen and pelvis January 25, 2019. TECHNIQUE: Following IV administration of 95 mL of Optiray-320, axial images of the abdomen and pelvis were obtained from the lung bases to the proximal femurs. Images were reviewed in the axial, sagittal, and coronal planes. IV contrast was administered without complication. Automated exposure control was utilized for the study. A dose lowering technique was utilized adhering to the principles of ALARA. CT DOSE: 227.12 mGy.cm FINDINGS: Cardiomegaly is noted. Bibasilar opacities favor atelectasis. No pneumatosis, free air or portal venous gas is present. The liver, spleen, adrenal glands and pancreas are unremarkable. Pancreas divisum is noted. There are bilateral renal cysts. There are gallstones within the gallbladder without evidence for acute cholecystitis. The abdominal aorta is ectatic. There is extensive atherosclerotic plaque of the abdominal aorta and branch vessels which are suboptimally assessed on this non-CTA exam. No bowel wall thickening is noted. There is no evidence for a bowel obstruction. The appendix is normal. There is no ascites or lymphadenopathy. No suspicious skeletal lesions are noted. Old L1 compression fractures unchanged. IMPRESSION: 1. No acute process within the abdomen or pelvis. 2. Cholelithiasis. 3. Extensive atherosclerotic plaque of the abdominal aorta and branch vessels, suboptimally assessed on this non-CTA exam. Electronically signed by: Bora Schmitt M.D. 02/10/2019 8:26 PM Dictated: 02/10/192019 Transcribed: 02/10/192019 CT OF THE HEAD WITHOUT CONTRAST CLINICAL HISTORY: Nausea. Multiple falls. COMPARISON STUDY: Head CT August 16, 2017. CT DOSE: 537.48 mGy.cm TECHNIQUE: Helical axial images of the head were obtained without IV contrast. Automated exposure control was utilized for the study. A dose lowering technique was utilized adhering to the principles of ALARA. FINDINGS: No acute intracranial hemorrhage, midline shift or mass effect is present. Encephalomalacia within the right MCA territory with calcified laminar necrosis is chronic. The ventricular system is unremarkable. The basilar cisterns are patent. There are no extra axial collections. There are no findings to suggest acute dural sinus thrombosis or acute territorial infarct. White ma tter hypodensity suggests small vessel disease. There is no calvarial fracture. IMPRESSION: 1. No acute intracranial findings. 2. Old right MCA territory infarct. 2. No calvarial fracture. Electronically signed by: Bora Schmitt M.D. 02/10/2019 8:14 PM Dictated: 02/10/192011 Transcribed: 02/10/192011 ECG Additional Comments: Ventricular paced at 60bpm, no acute ischemic changes Code Status & VTE Plan Code Status dnr VTE Prophylaxis Plan VTE Prophylaxis will be ordered: Yes (1) Abdominal pain Abdominal location: lower abdomen, unspecified Qualified Code(s): R10.30 - Lower abdominal pain, unspecified (2) Iron deficiency anemia Iron deficiency anemia type: unspecified iron deficiency Qualified Code(s): D50.9 - Iron deficiency anemia, unspecified (3) Atrial fibrillation Atrial fibrillation type: chronic Qualified Code(s): I48.2 - Chronic atrial fibrillation (4) Hypertension Hypertension type: essential hypertension Qualified Code(s): I10 - Essential (primary) hypertension (5) COPD (chronic obstructive pulmonary disease) COPD type: unspecified COPD Qualified Code(s): J44.9 - Chronic obstructive pulmonary disease, unspecified (6) CAD (coronary artery disease) Coronary Disease-Associated Artery/Lesion type: [place] artery [place] vs. transplanted heart: tetlin heart Associated angina: without angina Qualified Code(s): I25.10 - Atherosclerotic heart disease of tetlin coronary artery without angina pectoris
[2019-02-11] MEDS: ARFORMOTEROL TART 15MCG/2ML VIAL INH SCH ×2 (07:01→19:05)
[2019-02-11] MEDS: BUDESONIDE 0.5 MG/2 ML VIAL (PULMICORT) NEB SCH ×2 (07:01→19:05)
[2019-02-11] MEDS ORDERED: OPTIRAY 320 125ml IV PRN (08:39)
--- NOTE | 2019-02-11 08:59 | CT Scan Report ---
CT angio abdomen pelvis w con CT DOSE: 283.40 mGy.cm CLINICAL HISTORY: Chronic mesenteric ischemia. TECHNIQUE: CT angiography was performed during intravenous administration of 120 cc of Optiray 320. M id imaging was acquired. A dose lowering technique was utilized adhering to the principles of ALARA. COMPARISON STUDY: CT scan dated 02/10/2019 FINDINGS: The visualized portions lung bases reveal cardiomegaly and right basilar atelectatic change . There is mild interstitial thickening. No hepatic or splenic masses are visualized. There is cholelithiasis. No pancreatic masses are visualized. No adrenal masses are visualized. There is a 19 mm left renal cyst. There is a 9 mm right renal cyst. There are no transition zones indicate bowel obstruction. The appendix appears normal. There is no ac [place] diverticulitis. There is an indwelling Tyson catheter present. There are advanced atheromatous changes present within the abdominal aorta. 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 Two SMA stents are visualized. There is no evidence for hemodynamic of a significant superior mesente shankar artery stenosis. There is mild aortic ectasia with the maximal aortic diameter measuring 25 mm. A single left renal artery is visualized. There are atheromatous changes at the origin but no evidenc e of a hemodynamically significant stenosis. There are 4 right renal arteries. There is significant c alcific plaque at the margin of these arteries making stenosis evaluation difficult. There is at leas t a moderate stenosis involving the origin of all 4 views arteries. There are moderate atheromatous changes within the iliac arteries without evidence of hemodynamic sig nificant stenosis. There are atheromatous changes present within the common femoral arteries. 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 There are superior endplate T10 and L1 compression deformities. IMPRESSION: 1. 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 2 SMA stents are visualized. No evidence for hemodynamic significant SMA stenosis 3. 4 right renal arteries with at least a moderate stenosis involving the origin of all 4 arteries 4. Single left renal artery with atheromatous change but no evidence of hemodynamically significant s tenosis 5. 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 Cholelithiasis 7. No evidence of bowel obstruction. No evidence of free air Electronically signed by: Micky Cutler M.D. 02/11/2019 8:58 AM
[2019-02-11] MEDS ORDERED: ENOXAPARIN INJ 30 MG/0.3 ML SYR SQ SCH (09:00)
[2019-02-11 09:44] LABS: Basophils # (auto) 0.01 K/uL (0-0.2); Basophils % (auto) 0.2 %; Eosinophils # (auto) 0.02 K/uL (0-0.5); Eosinophils % (auto) 0.3 %; Hematocrit (blood only) 24.3 % (37-47); Hemoglobin 7.7 g/dL (12.0-16.0); Immature Granulocytes # (auto) 0.02 K/uL (0.00-0.02); Immature Granulocytes % (auto) 0.3 %; Lymphocytes # (auto) 0.93 K/uL (1.2-3.4); Lymphocytes % (auto) 14.5 %; Mean Corpuscular Hgb Conc 31.7 g/dL (32-36); Mean Corpuscular Volume 92.7 fL (80-100); Mean Platelet Volume 8.5 fL (7.4-10.4); Monocytes # (auto) 0.83 K/uL (0.11-0.59); Neutrophils # (auto) 4.59 K/uL (1.4-6.5); Neutrophils % (auto) 71.7 %; Platelet Count 213 K/uL (130-400); RDW Coefficient of Variation 22.8 % (11.5-14.5); RDW Standard Deviation 77.7 fL (36.4-46.3); Red Blood Count 2.62 M/uL (4.2-5.4)
[2019-02-11 10:01] LABS: INR 1.1 (0.9-1.1); Prothrombin Time 11.5 Seconds (9.0-12.0)
[2019-02-11] MEDS: METOCLOPRAMIDE HCL 5 MG TABLET PO SCH ×3 (10:04→16:21)
[2019-02-11] MEDS: CARVEDILOL 25 MG TAB PO SCH ×2 (10:04→20:40)
[2019-02-11] MEDS: CLOPIDOGREL BISULFATE 75 MG TAB PO SCH (10:04)
[2019-02-11] MEDS: FUROSEMIDE 40 MG TAB PO SCH ×2 (10:04→16:52)
[2019-02-11] MEDS: guaiFENesin 600 MG TABCR PO SCH ×2 (10:04→20:39)
[2019-02-11] MEDS: LISINOPRIL 2.5 MG TAB PO SCH (10:04)
[2019-02-11] MEDS: PANTOprazole 40 MG TAB PO SCH ×2 (10:04→20:38)
[2019-02-11] MEDS: FERROUS SULFATE 325 MG TAB PO SCH (10:04)
[2019-02-11] MEDS: LORazepam 0.5 MG TAB PO PRN (10:04)
[2019-02-11] MEDS: POTASSIUM CHLORIDE 20 MEQ TABCR PO SCH (10:04)
[2019-02-11 10:13] LABS: Anisocytosis Present; Poikilocytosis Present
[2019-02-11 10:17] LABS: BUN Creatinine Ratio 34.7 (10-20); Calcium 8.7 mg/dl (8.5-10.1); Est GFR (African American) 82.9; Est GFR (Non-African American) 71.5; Potassium 3.7 mmol/L (3.5-5.1)
[2019-02-11] MEDS ORDERED: HEPARIN SOD 5,000 UNIT/0.5 ML VIAL SC SCH (13:00)
--- NOTE | 2019-02-11 14:09 | Consultation ---
Date of Consultation February 11, 2019 Assessment & Plan (1) Mesenteric artery stenosis: Pt with stenosis of celiac artery and hx of SMA stenting, which remain patent. Her KYLEE is also patent. Pt also eval by Dr Randhawa. Pt sx of persistent nausea and occasional abd pain not likely to be related to her mesenteric stenosis, as she stated that the discomfort she is currently experiencing is different from the pain she had prior to her intervention. Pt is poor surgical candidate d/t multiple comorbidities and frailty. Would not recommend vascular surgical intervention unless no other option d/t mesenteric ischemia and intractable abd pain. Pt should follow up with her vascular surgeon, Dr Ermias Montenegro, at [facility]. Pt agreeable. Please call if needed. Patient was seen, examined, and chart reviewed. Agree with exam and treatment plan of the Vascular PA. ejs Present on Admission?: Yes History of Present Illness Reason for Consultation: celiac art stenosis >90% Attending Physician: Violette Barahona MD History of Present Illness 73 yo f with multiple medical problems, including CAD, CHF, severe COPD on oxygen, EF20%, HTN, a fib, ischemic cardiomyopathy, PAD s/p peripheral intervention, mesenteric stenosis s/p SMA stenting, CKD, and AICD, admitted with nausea, seen in consultation today for celiac art stenosis noted on CTA. Pt states she had severe abd pain and nausea prior to previous intervention, as well as significant weight loss. Since surgical intervention, pt states she was able to gain a little weight back. She is unable to verbalize how much weight. Pt is poor historian, stating she had her SMA interventions 8 yrs ago, when records from [facility] indicate she had her procedure as recently as 2016. Pt states she feels "sick" almost all the time. It is worse after eating spicy foods or large meals. According to records here at [facility], her weight has been between 41- 48 kg for past 5 months. She is 43 kg today. Pt states she is hungry and thirsty. Denies BAHENA, fever, chills, recent illness, chest pain, SOB at rest, abd pain presently, nausea presently, extremity rest pain, other complaints. Allergies Allergy/AdvReac Type Severity Reaction Status Date / Time Sulfa (Sulfonamide Allergy Intermediate RASH Verified 02/10/19 19:20 Antibiotics) morphine AdvReac Mild GI SYMPTOMS Verified 02/10/19 19:20 Home Medications Home Medications Medication Instructions Recorded Confirmed Type albuterol sulfate 2.5 mg INHALATION Q4 PRN 10/24/18 02/10/19 History aspirin [Aspir-81] 81 mg PO HS 10/24/18 02/10/19 History atorvastatin 80 mg PO HS 10/24/18 02/10/19 History clopidogrel 75 mg PO QAM 10/24/18 02/10/19 History ezetimibe 10 mg PO HS 10/24/18 02/10/19 History fluticasone propionate 2 spray INTRANASAL QAM PRN 10/24/18 02/10/19 History potassium chloride 20 meq PO QAM 10/24/18 02/10/19 History pramipexole 0.25 mg PO HS 10/24/18 02/10/19 History sertraline 50 mg PO HS 10/24/18 02/10/19 History sodium chloride [Bowman Nasal] 1 spray INTRANASAL DIRECTED PRN 10/24/18 02/10/19 History ondansetron HCl [Zofran] 4 mg PO Q6H PRN #10 tab 10/29/18 02/10/19 Rx acetaminophen [Tylenol Extra 500 mg PO Q6H PRN 12/19/18 02/10/19 History Strength] Brovana 15 mcg INHALATION BIDR #120 ml 12/29/18 02/10/19 Rx ipratropium-albuterol 3 ml NEB Q4R #180 ml 12/29/18 02/10/19 Rx pantoprazole 40 mg PO BID #60 tab 12/29/18 02/10/19 Rx ferrous sulfate 325 mg PO QAM #60 tab 01/08/19 02/10/19 Rx budesonide 0.5 mg NEB BIDR #1 ml 01/14/19 02/10/19 Rx furosemide [Lasix] 40 mg PO BID #0 tab 01/14/19 02/10/19 Rx guaifenesin [Mucinex] 600 mg PO Q12 #1 tab 01/14/19 02/10/19 Rx lorazepam 0.5 mg PO Q8H PRN #3 tab 01/14/19 02/10/19 Rx carvedilol 25 mg PO BID 01/25/19 02/10/19 History dicyclomine 10 mg PO QID PRN #20 cap 01/25/19 02/10/19 Rx lisinopril 2.5 mg PO DAILY 01/25/19 02/10/19 History prochlorperazine maleate 10 mg PO Q6H PRN #20 tab 01/25/19 02/10/19 Rx [Compazine] tramadol 50 mg PO Q8H PRN 01/25/19 02/10/19 History metoclopramide HCl 5 mg PO AC 02/10/19 02/10/19 History Patient History Medical History Cachexia Demand ischemia Chronic kidney disease, stage 3a Iron deficiency anemia Chronic systolic (congestive) heart failure CAD (coronary artery disease) s/p OH in 1999 Atrial fibrillation Ischemic cardiomyopathy EF 25-30% Dyslipidemia Hypertension Anxiety COPD (chronic obstructive pulmonary disease) (Acute) Non compliance w medication regimen Emphysema of lung Syncope AICD malfunction Ambulatory dysfunction (Acute) Elevated troponin Left lower lobe pneumonia GIB (gastrointestinal bleeding) Reflux esophagitis SAH (subarachnoid hemorrhage) Surgical History S/P carotid endarterectomy S/P carpal tunnel release S/P hysterectomy S/P implantation of automatic cardioverter/defibrillator (AICD) Family History Father , about age 80 Coronary heart disease from acute [place] Mother , age 75 Coronary heart disease had CABG; ultimately from [place] Other Heart disease Social History Preferred Language: [place] Communication Ability: Effective Visual Impairment: No Limitations Hearing Ability: Normal [place] Cleaner Required: No Beliefs That Will Affect Care: None marital status: Current Living Situation: Spouse Current Living Situation Comment: lives in [place]; has 3 children current occupational status: retired Other Information That Helps Us Care for You: 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[employer], 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) Feels Safe at Home: Yes Safety Concerns: Feels Safe At This Time Smoking Status: Former smoker Tobacco Type: cigarettes Cigarettes Per Day: quit 1 month ago; smoked up to 1ppd in the past; started in teenage years Second Hand Exposure: No Hx Alcohol Use: No Hx Substance Use: No Review of Systems Constitutional: + malaise; no fever, no chills and no weight loss Eyes: no problem reported Ear, Nose, Mouth, Throat: no sore throat Respiratory: + dyspnea on exertion; no cough, no dyspnea and no hemoptysis Cardiovascular: no chest pain Gastrointestinal: + abdominal pain and + nausea; no vomiting and no blood in stools Musculoskeletal: no back pain and no swelling Integumentary: no rash, no skin ulcer and no wounds Neurologic: no tingling, no numbness, no paresthesia and no headache(s) Psychiatric: as per Subjective / HPI Hematologic / Lymphatic: no easy bleeding, no easy bruising, no coagulopathy, no night sweats and no unexplained weight loss Physical Exam Constitutional: WD/WN, vitals as above well developed, + ill appearing (chronically), + thin, + cachectic, + frail appearing, cooperative and comfortable; not in distress and not combative Eyes: PERRL, conjunctivae normal, anicteric sclerae EOM intact bilaterally ENMT: Ears: no hearing impairment Nose: no nasal discharge Neck: trachea midline, no thyromegaly no tracheal deviation, no neck crepitus and neck nontender Respiratory: normal respiratory effort, lungs clear to auscultation able to speak in complete sentences; does not use accessory muscles and no cough Auscultation: + diminished lung sounds, + crackles and + wheezes; no rhonchi Cardiovascular: Rate/Rhythm: + irregularly irregular Heart Sounds: no gallop and no murmur Vessels: + carotid bruit, + abdominal aortic bruit, + femoral bruit, femoral pulses present, posterior tibial pulses present (+1 BLE), dorsalis pedis pulses present (nonpalpable BLE), brachial pulses present and radial pulses present; + abnormal peripheral pulses Extremities: normal capillary refill; no edema Chest (Breasts): Chest: normal inspection of chest Gastrointestinal (Abdomen): normal bowel sounds, soft, nontender, no hepatosplenomegaly Inspection/Auscultation: abdomen normal to inspection and normal bowel sounds; abdomen not distended Percussion/Palpation: abdomen soft; abdomen nontender, no guarding, abdomen not rigid and no abdominal mass Musculoskeletal: no cyanosis or clubbing, extremities motor strength 5/5 Head/Neck/Chest: normocephalic, head atraumatic and neck supple Extremities: extremities normal to inspection; full ROM of extremities, + abnormal strength, normal strength, no chronic stasis changes, no clubbing, no amputation noted, no lower leg abnormality and no foot abnormality Skin: no rashes, warm and dry normal turgor and + dry skin; no rashes, no lesions, no ulcers, no eschar and no mottling Neurologic: moves all extremities, awake and + confused (mildly, poor historian); no focal motor deficits Speech / Cognition: no expressive aphasia and no receptive aphasia Motor/Sensory: no tremor and no sensory deficit Cranial Nerves: EOM intact bilaterally and normal facial strength Psychiatric: Orientation: alert, oriented to person, oriented to place and cooperative; + not oriented to time Apperance: appropriately dressed and jordy ropriately groomed Affect: euthymic affect and + depressed affect Thought Process: linear/logical thought process Cognition: recent memory grossly intact, remote memory grossly intact, attention grossly intact and language grossly intact Estimated Intelligence: average estimated intelligence Results & Data Vital Signs (Past 12 Hours) Vital Signs Temp Pulse Resp BP Pulse Ox 02/11/19 11:07 61 22 97 02/11/19 07:31 37.0 C 60 18 112/49 L 100 02/11/19 07:01 61 20 98 02/11/19 03:06 61 24 98
--- NOTE | 2019-02-11 18:10 | Hospitalist Progress Note ---
Date of Service February 11, 2019 Assessment & Plan (1) Abdominal pain: Patient presents with dull, crampy post-prandial abdominal pain and nausea ongoing for at least several months with significant weight loss. History of CAD, carotid stenosis s/p endarterectomy, CKD. Extensive atherosclerotic plaques noted on non-contrast abdominal CT from ER. Concern for chronic mesenteric ischemia / intestinal angina. CT angiogram of the abdomen pelvis obtained and does show 90% stenosis of the celiac axis and stents in the SMA and KYLEE Vascular surgery consulted and recommend not performing any intervention at this time as she is high risk with comorbidities and also unclear if this is actually causing her pain Does have pancreas divisum noted on her CT. No evidence of pancreatitis, lipase has always been normal. She has iron deficiency anemia as below and is on aspirin and Plavix-she has ne edith had an EGD to her knowledge -Consult GI to see if should have an EGD this admission-patient would be high risk for anesthesia but it is a fairly short procedure and she is willing to accept this risk -Continue Protonix p.o. twice daily -Clear liquids for now and make n.p.o. again after midnight -Continue CAD home medications, ASA, Atorvastatin, Plavix, Carvedilol, Zetia -Continue Tramadol, Compazine, Protonix, Zofran, Reglan and Bentyl PRN. Patient has been taking these medications at home. Hopefully will be able to decrease medication burden prior to DC (2) Cachexia: Patient cachectic/sarcopenic. Albumin=2.6. Reports poor appetite and decreased PO intake, along with weight loss She has lost at least 5-6 kg in the last month alone -Consult Nutrition services for supplements -PT/OT evaluation for complaint of weakness -GI work-up as above (3) Iron deficiency anemia: Patient with normochromic/normocytic anemia, hgb has now dropped to 7.7. No active bleeding Required blood transfusion on admission in 12/2018 and was iron deficient on labs prior to that With nausea, weight loss, abdominal pain, and on ASA/Plavix, will consult GI to see about EGD this admission -previous colonoscopy in 2012 with diverticulosis only -Check iron studies in the morning, Hemoccult stool, B12 and folate -Continue PO iron supplement -Continue to monitor CBC -Transfuse if hemoglobin less than seven-point 5 in the morning-patient agreeable and signed consent form (4) Chronic kidney disease, stage 3a: BUN and Cr near baseline 0.8, electrolytes WNL -Continue to monitor BUN, Cr and electrolytes -Avoid nephrotoxic agents -Renal dosing where appropriate (5) Atrial fibrillation: Patient V-paced. Not presently on anticoagulation due to history of severe anemia -Continue to monitor (6) Dyslipidemia: Chronic -Continue Zetia and Atorvastatin (7) Hypertension: Blood pressure stable -Continue Carvedilol, Lisinopril, Lasix (8) COPD (chronic obstructive pulmonary disease): Chronic. Patient reports stable SOB. No cough, sputum or wheeze -Continue home agents - Albuterol/Ipratropium, Albuterol PRN, Arfomoterol, Budesonide (9) CAD (coronary artery disease): No CP. No evidence of acute ischemia on EKG. Patient with ICM, chronic systolic CHF. Appear well compensated at present. Mildly elevated troponin at 0.089 which appears to be chronic -Continue ASA, Plavix, Carvedilol, Lisinopril, Atorvastatin and Zetia -Continue to monitor (10) Chronic systolic (congestive) heart failure: [place] appears [place]. [place] [id number] - chronically elevated LVEF on last echo is 25-30% and is an ischemic cardiomyopathy -Continue Carvedilol, Lasix, Lisinopril -Continue to monitor -If give blood transfusion, would give over 4 hours and give Lasix afterwards (11) Anxiety: Stable -Continue Sertraline -Continue home Ativan (12) Restless leg syndrome: Chronic. 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 Denies vomiting, hematemesis, hematochezia. She did not have a bowel movement today but usually has a darker bowel movement on iron pills once daily. Denies chest pain or shortness of breath over her usual dyspnea. Review of Systems Review of Systems: All systems reviewed & are unremarkable except as noted in HPI & below Physical Exam Constitutional: + thin; no acute distress Eyes: PERRL, conjunctivae normal, anicteric sclerae ENMT: external ear and nose normal, oropharynx normal Neck: trachea midline, no thyromegaly Respiratory: normal respiratory effort (Nasal cannula in place) Auscultation: + diminished lung sounds (Throughout); no crackles and no wheezes Cardiovascular: RRR, no murmur, no edema Gastrointestinal (Abdomen): Inspection/Auscultation: normal bowel sounds; + abdomen abnormal to inspection (Midline incisional scar) Percussion/Palpation: + abdomen tender (Mildly tender in the periumbilical region and epigastric region without guarding or rebound tenderness) and abdomen soft; no splenomegaly, no hernia and no abdominal mass Musculoskeletal: Extremities: extremities normal to inspection; no cyanosis and no clubbing Skin: + ecchymosis (Multiple small areas of ecchymosis on the legs and arms) Neurologic: moves all extremities and awake; no focal motor deficits Psychiatric: A+Ox3, euthymic affect Results & Data Vital Signs (Past 12 Hours) Vital Signs Temp Pulse Resp BP Pulse Ox 02/11/19 16:57 107/44 L 02/11/19 14:57 37.1 C 60 18 92/56 L 96 02/11/19 14:50 60 18 97 02/11/19 11:07 61 22 97 02/11/19 07:31 37.0 C 60 18 112/49 L 100 02/11/19 07:01 61 20 98 Laboratory Results 02/11/19 02/11/19 02/11/19 Range/Units 09:35 09:35 09:35 WBC 6.40 (4.8-10.8) K/uL RBC 2.62 L (4.2-5.4) M/uL Hgb 7.7 L (12.0-16.0) g/dL POC Hgb (12.0-16.0) g/dl Hct 24.3 L (37-47) % POC Hct (37-47) % MCV 92.7 (80-100) fL MCH 29.4 (25-34) pg MCHC 31.7 L (32-36) g/dL RDW Std Deviation 77.7 H (36.4-46.3) fL RDW Coeff of Kiana 22.8 H (11.5-14.5) % Plt Count 213 (130-400) K/uL MPV 8.5 (7.4-10.4) fL Immature Gran % (Auto) 0.3 % Neut % (Auto) 71.7 % Lymph % (Auto) 14.5 % Antelope % (Auto) 13.0 % Eos % (Auto) 0.3 % Baso % (Auto) 0.2 % Immature Gran # (Auto) 0.02 (0.00-0.02) K/uL Neut # (Auto) 4.59 (1.4-6.5) K/uL Lymph # (Auto) 0.93 L (1.2-3.4) K/uL Antelope # (Auto) 0.83 H (0.11-0.59) K/uL Eos # (Auto) 0.02 (0-0.5) K/uL Baso # (Auto) 0.01 (0-0.2) K/uL Poikilocytosis Present Anisocytosis Present Tear Drop Cells Ovalocytes Acanthocytes (Spur) PT 11.5 (9.0-12.0) Seconds INR 1.1 (0.9-1.1) POC Sodium (135-144) mEq/L Sodium 141 (136-145) mmol/L POC Potassium (3.3-5.0) mEq/L Potassium 3.7 D (3.5-5.1) mmol/L POC Chloride (101-112) mEq/L Chloride 107 (98-107) mmol/L Carbon Dioxide 28 (21-32) mmol/L POC Total CO2 (24-31) mEq/l Anion Gap 6.0 (3-11) POC Anion Gap (16-25) mmol/L POC BUN (7-18) mg/dl BUN 28 H (7-18) mg/dl Creatinine 0.81 (0.6-1.2) mg/dl POC Creatinine (0.6-1.3) mg/dl Est Cr Clr Drug Dosing 42.0 ml/min Est GFR ( Amer) 82.9 Est GFR (Non-Af Amer) 71.5 BUN/Creatinine Ratio 34.7 H (10-20) Glucose 85 (70-99) mg/dl POC Glucose (other) (70-99) mg/dl POC Lactic Acid Jonn (0.90-1.70) mmol/L Calcium 8.7 (8.5-10.1) mg/dl POC Ioniz Calcium Sonia (1.12-1.32) mmol/l Phosphorus (2.5-4.9) mg/dl Magnesium (1.8-2.4) mg/dl Total Bilirubin (0.2-1) mg/dl AST (15-37) U/L ALT (12-78) U/L Alkaline Phosphatase (45-117) U/L Total Creatine Kinase (26-192) U/L Troponin I (0-0.045) ng/ml NT-Pro-B Natriuret Pep (0-900) pg/ml Total Protein (6.4-8.2) gm/dl Albumin (3.4-5.0) gm/dl Globulin (2.5-4.0) gm/dl Albumin/Globulin Ratio (0.9-2) TSH (0.300-4.500) uIu/ml Free T4 (0.8-1.6) ng/dl Urine Color Urine Appearance (Clear) Urine pH (4.5-7.5) Ur Specific Colton (1.000-1.030) Urine Protein (Negative) Urine Glucose (UA) (Negative) Urine Ketones (Negative) Urine Blood (Negative) Urine Nitrite (Negative) Urine Bilirubin (Negative) Urine Urobilinogen (Negative) Ur Leukocyte Esterase (Negative) Urine WBC (Auto) (0-5) /hpf Urine RBC (Auto) (0-4) /hpf U Hyaline Cast (Auto) (0-5) /lpf U Epithel Cells (Auto) (0-5) /lpf Urine Bacteria (Auto) (Negative) 02/10/19 02/10/19 02/10/19 Range/Units 21:31 18:55 18:44 WBC (4.8-10.8) K/uL RBC (4.2-5.4) M/uL Hgb (12.0-16.0) g/dL POC Hgb 9.2 L (12.0-16.0) g/dl Hct (37-47) % POC Hct 27 L (37-47) % MCV (80-100) fL MCH (25-34) pg MCHC (32-36) g/dL RDW Std Deviation (36.4-46.3) fL RDW Coeff of Kiana (11.5-14.5) % Plt Count (130-400) K/uL MPV (7.4-10.4) fL Immature Gran % (Auto) % Neut % (Auto) % Lymph % (Auto) % Antelope % (Auto) % Eos % (Auto) % Baso % (Auto) % Immature Gran # (Auto) (0.00-0.02) K/uL Neut # (Auto) (1.4-6.5) K/uL Lymph # (Auto) (1.2-3.4) K/uL Antelope # (Auto) (0.11-0.59) K/uL Eos # (Auto) (0-0.5) K/uL Baso # (Auto) (0-0.2) K/uL Poikilocytosis Anisocytosis Tear Drop Cells Ovalocytes Acanthocytes (Spur) PT (9.0-12.0) Seconds INR (0.9-1.1) POC Sodium 136 (135-144) mEq/L Sodium (136-145) mmol/L POC Potassium 4.3 (3.3-5.0) mEq/L Potassium (3.5-5.1) mmol/L POC Chloride 99 L (101-112) mEq/L Chloride (98-107) mmol/L Carbon Dioxide (21-32) mmol/L POC Total CO2 26 (24-31) mEq/l Anion Gap (3-11) POC Anion Gap 16.0 (16-25) mmol/L POC BUN 35 H (7-18) mg/dl BUN (7-18) mg/dl Creatinine (0.6-1.2) mg/dl POC Creatinine 1.0 (0.6-1.3) mg/dl Est Cr Clr Drug Dosing ml/min Est GFR ( Amer) Est GFR (Non-Af Amer) BUN/Creatinine Ratio (10-20) Glucose (70-99) mg/dl POC Glucose (other) 117 H (70-99) mg/dl POC Lactic Acid Jonn 1.63 (0.90-1.70) mmol/L Calcium (8.5-10.1) mg/dl POC Ioniz Calcium Sonia 1.15 (1.12-1.32) mmol/l Phosphorus (2.5-4.9) mg/dl Magnesium (1.8-2.4) mg/dl Total Bilirubin (0.2-1) mg/dl AST (15-37) U/L ALT (12-78) U/L Alkaline Phosphatase (45-117) U/L Total Creatine Kinase (26-192) U/L Troponin I (0-0.045) ng/ml NT-Pro-B Natriuret Pep (0-900) pg/ml Total Protein (6.4-8.2) gm/dl Albumin (3.4-5.0) gm/dl Globulin (2.5-4.0) gm/dl Albumin/Globulin Ratio (0.9-2) TSH (0.300-4.500) uIu/ml Free T4 (0.8-1.6) ng/dl Urine Color Yellow Urine Appearance Cloudy A (Clear) Urine pH 5.0 (4.5-7.5) Ur Specific Colton 1.020 (1.000-1.030) Urine Protein Trace H (Negative) Urine Glucose (UA) Negative (Negative) Urine Ketones Negative (Negative) Urine Blood Trace H (Negative) Urine Nitrite Negative (Negative) Urine Bilirubin Negative (Negative) Urine Urobilinogen Negative (Negative) Ur Leukocyte Esterase 2+ H (Negative) Urine WBC (Auto) >30 H (0-5) /hpf Urine RBC (Auto) 0-4 (0-4) /hpf U Hyaline Cast (Auto) 5-10 H (0-5) /lpf U Epithel Cells (Auto) 0-5 (0-5) /lpf Urine Bacteria (Auto) Negative (Negative) 02/10/19 02/10/19 Range/Units 18:41 18:41 WBC 9.01 (4.8-10.8) K/uL RBC 3.06 L (4.2-5.4) M/uL Hgb 9.0 L (12.0-16.0) g/dL POC Hgb (12.0-16.0) g/dl Hct 28.1 L (37-47) % POC Hct (37-47) % MCV 91.8 (80-100) fL MCH 29.4 (25-34) pg MCHC 32.0 (32-36) g/dL RDW Std Deviation 76.2 H (36.4-46.3) fL RDW Coeff of Kiana 22.7 H (11.5-14.5) % Plt Count 291 (130-400) K/uL MPV 8.9 (7.4-10.4) fL Immature Gran % (Auto) 0.4 % Neut % (Auto) 64.5 % Lymph % (Auto) 24.0 % Antelope % (Auto) 10.8 % Eos % (Auto) 0.1 % Baso % (Auto) 0.2 % Immature Gran # (Auto) 0.04 H (0.00-0.02) K/uL Neut # (Auto) 5.81 (1.4-6.5) K/uL Lymph # (Auto) 2.16 (1.2-3.4) K/uL Antelope # (Auto) 0.97 H (0.11-0.59) K/uL Eos # (Auto) 0.01 (0-0.5) K/uL Baso # (Auto) 0.02 (0-0.2) K/uL Poikilocytosis Anisocytosis Present Tear Drop Cells 1+ Ovalocytes 1+ Acanthocytes (Spur) 1+ PT (9.0-12.0) Seconds INR (0.9-1.1) POC Sodium (135-144) mEq/L Sodium 139 (136-145) mmol/L POC Potassium (3.3-5.0) mEq/L Potassium 4.4 (3.5-5.1) mmol/L POC Chloride (101-112) mEq/L Chloride 105 (98-107) mmol/L Carbon Dioxide 27 (21-32) mmol/L POC Total CO2 (24-31) mEq/l Anion Gap 7.0 (3-11) POC Anion Gap (16-25) mmol/L POC BUN (7-18) mg/dl BUN 38 H (7-18) mg/dl Creatinine 0.94 (0.6-1.2) mg/dl POC Creatinine (0.6-1.3) mg/dl Est Cr Clr Drug Dosing 35.8 ml/min Est GFR ( Amer) 69.3 Est GFR (Non-Af Amer) 59.8 BUN/Creatinine Ratio 40.8 H (10-20) Glucose 111 H (70-99) mg/dl POC Glucose (other) (70-99) mg/dl POC Lactic Acid Jonn (0.90-1.70) mmol/L Calcium 9.1 (8.5-10.1) mg/dl POC Ioniz Calcium Sonia (1.12-1.32) mmol/l Phosphorus 3.9 (2.5-4.9) mg/dl Magnesium 2.0 (1.8-2.4) mg/dl Total Bilirubin 0.4 (0.2-1) mg/dl AST 16 (15-37) U/L ALT 20 (12-78) U/L Alkaline Phosphatase 48 (45-117) U/L Total Creatine Kinase 26 (26-192) U/L Troponin I 0.089 H* (0-0.045) ng/ml NT-Pro-B Natriuret Pep 94157 H (0-900) pg/ml Total Protein 5.5 L (6.4-8.2) gm/dl Albumin 2.6 L (3.4-5.0) gm/dl Globulin 2.9 (2.5-4.0) gm/dl Albumin/Globulin Ratio 0.9 (0.9-2) TSH 11.900 H (0.300-4.500) uIu/ml Free T4 1.50 (0.8-1.6) ng/dl Urine Color Urine Appearance (Clear) Urine pH (4.5-7.5) Ur Specific Colton (1.000-1.030) Urine Protein (Negative) Urine Glucose (UA) (Negative) Urine Ketones (Negative) Urine Blood (Negative) Urine Nitrite (Negative) Urine Bilirubin (Negative) Urine Urobilinogen (Negative) Ur Leukocyte Esterase (Negative) Urine WBC (Auto) (0-5) /hpf Urine RBC (Auto) (0-4) /hpf U Hyaline Cast (Auto) (0-5) /lpf U Epithel Cells (Auto) (0-5) /lpf Urine Bacteria (Auto) (Negative) Diagnostic Findings CT angio abdomen pelvis w con CT DOSE: 283.40 mGy.cm CLINICAL HISTORY: Chronic mesenteric ischemia. TECHNIQUE: CT angiography was performed during intravenous administration of 120 cc of Optiray 320. Mid imaging was acquired. A dose lowering technique was utilized adhering to the principles of ALARA. COMPARISON STUDY: CT scan dated 02/10/2019 FINDINGS: The visualized portions lung bases reveal cardiomegaly and right basilar atelectatic change. There is mild interstitial thickening. No hepatic or splenic masses are visualized. There is cholelithiasis. No pancreatic masses are visualized. No adrenal masses are visualized. There is a 19 mm left renal cyst. There is a 9 mm right renal cyst. There are no transition zones indicate bowel obstruction. The appendix appears normal. There is no acute diverticulitis. There is an indwelling Tyson catheter present. There are advanced atheromatous changes present within the abdominal aorta. 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 Two SMA stents are visualized. There is no evidence for hemodynamic of a significant superior mesenteric artery stenosis. There is mild aortic ectasia with the maximal aortic diameter measuring 25 mm. A single left renal artery is visualized. There are atheromatous changes at the origin but no evidence of a hemodynamically significant stenosis. There are 4 right renal arteries. There is significant calcific plaque at the margin of these arteries making stenosis evaluation difficult. There is at least a moderate stenosis involving the origin of all 4 views arteries. There are moderate atheromatous changes within the iliac arteries without evidence of hemodynamic significant stenosis. There are atheromatous changes present within the common femoral arteries. There is a 2 cm right common femoral artery aneurysm. There are superior endplate T10 and L1 compression deformities. IMPRESSION: 1. 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 2 SMA stents are visualized. No evidence for hemodynamic significant SMA stenosis 3. 4 right renal arteries with at least a moderate stenosis involving the origin of all 4 arteries 4. Single left renal artery with atheromatous change but no evidence of hemodynamically significant stenosis 5. 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 Cholelithiasis 7. No evidence of bowel obstruction. No evidence of free air (1) CAD (coronary artery disease) Associated angina: without angina Coronary Disease-Associated Artery/Lesion type: [place] artery [place] vs. transplanted heart: [place] heart Qualified Code(s): I25.10 - Atherosclerotic heart disease of [place] coronary artery without angina pectoris (2) Atrial fibrillation Atrial fibrillation type: chronic Qualified Code(s): I48.2 - Chronic atrial fibrillation (3) Iron deficiency anemia Iron deficiency anemia type: unspecified iron deficiency Qualified Code(s): D50.9 - Iron deficiency anemia, unspecified (4) COPD (chronic obstructive pulmonary disease) COPD type: unspecified COPD Qualified Code(s): J44.9 - Chronic obstructive pulmonary disease, unspecified (5) Abdominal pain Abdominal location: lower abdomen, unspecified Qualified Code(s): R10.30 - Lower abdominal pain, unspecified (6) Hypertension Hypertension type: essential hypertension Qualified Code(s): I10 - Essential (primary) hypertension
[2019-02-11] MEDS ORDERED: SODIUM CHLORIDE 0.9% 250 ML IV PRN (18:14)
[2019-02-11] MEDS: AMPICILLIN 1,000 MG in SODIUM CHLOR 0.9% AD-VAN 50 ML IV SCH (19:28)
[2019-02-11] MEDS: PRAMIPEXOLE DIHYDROCHLO 0.25 MG TAB PO SCH (20:38)
[2019-02-11] MEDS: ASPIRIN 81 MG ECTAB PO SCH (20:38)
[2019-02-11] MEDS: SERTRALINE HCL 50 MG TABLET PO SCH (20:39)
[2019-02-11] MEDS: ATORVASTATIN 40 MG TAB PO SCH (20:39)
[2019-02-11] MEDS: EZETIMIBE 10 MG TABLET PO SCH (20:41)
--- NOTE | 2019-02-12 00:01 | Emergency Department Note ---
Entered by Brooke Amanda acting as a scribe for Chester Grey MD History of Present Illness General Chief complaint: Nausea Stated complaint: WEAKNESS, NAUSEA Time Seen by Provider: 02/10/19 18:25 Source: patient, family and other (nursing staff) Mode of arrival: ambulatory History of Present Illness Onset (ago): day(s) (the past few days) Location: abdomen Severity: similar to prior episodes Pain Consistency: + constant and + other (worsening) Quality: + other (nausea) Associated symptoms: + denies other symptoms (diarrhea, change in BM, abdominal pain) and + other (labored breathing); no weakness Treatments prior to arrival: other (Zofran) The patient is a 73 year old female who presents to the ED with complaints of constant nausea and decreased appetite that worsened over the past few days. She reports that this is a chronic problem, and she does not follow up with a GI specialist. The patient's daughter, at bedside, complains of weakness. She reports that her breathing is labored, noting that she normally wears 2.5-3.0 L of oxygen NC. The patient denies any abdominal pain, diarrhea, and change in bowel movements. She states that she recently had colitis, and she had a two week course of antibiotics. The patient denies currently taking any antibiotics. She states that she takes Plavix and Aspirin daily. 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 Home Medications Home Medications Medication Instructions Recorded Confirmed Type albuterol sulfate 2.5 mg INHALATION Q4 PRN 10/24/18 02/10/19 History aspirin [Aspir-81] 81 mg PO HS 10/24/18 02/10/19 History atorvastatin 80 mg PO HS 10/24/18 02/10/19 History clopidogrel 75 mg PO QAM 10/24/18 02/10/19 History ezetimibe 10 mg PO HS 10/24/18 02/10/19 History fluticasone propionate 2 spray INTRANASAL QAM PRN 10/24/18 02/10/19 History potassium chloride 20 meq PO QAM 10/24/18 02/10/19 History pramipexole 0.25 mg PO HS 10/24/18 02/10/19 History sertraline 50 mg PO HS 10/24/18 02/10/19 History sodium chloride [[place] Nasal] 1 spray INTRANASAL DIRECTED PRN 10/24/18 02/10/19 History ondansetron HCl [Zofran] 4 mg PO Q6H PRN #10 tab 10/29/18 02/10/19 Rx acetaminophen [Tylenol Extra 500 mg PO Q6H PRN 12/19/18 02/10/19 History Strength] Brovana 15 mcg INHALATION BIDR #120 ml 12/29/18 02/10/19 Rx ipratropium-albuterol 3 ml NEB Q4R #180 ml 12/29/18 02/10/19 Rx pantoprazole 40 mg PO BID #60 tab 12/29/18 02/10/19 Rx ferrous sulfate 325 mg PO QAM #60 tab 01/08/19 02/10/19 Rx budesonide 0.5 mg NEB BIDR #1 ml 01/14/19 02/10/19 Rx furosemide [Lasix] 40 mg PO BID #0 tab 01/14/19 02/10/19 Rx guaifenesin [Mucinex] 600 mg PO Q12 #1 tab 01/14/19 02/10/19 Rx lorazepam 0.5 mg PO Q8H PRN #3 tab 01/14/19 02/10/19 Rx carvedilol 25 mg PO BID 01/25/19 02/10/19 History dicyclomine 10 mg PO QID PRN #20 cap 01/25/19 02/10/19 Rx lisinopril 2.5 mg PO DAILY 01/25/19 02/10/19 History prochlorperazine maleate 10 mg PO Q6H PRN #20 tab 01/25/19 02/10/19 Rx [Compazine] tramadol 50 mg PO Q8H PRN 01/25/19 02/10/19 History metoclopramide HCl 5 mg PO AC 02/10/19 02/10/19 History Allergies Allergy/AdvReac Type Severity Reaction Status Date / Time Sulfa (Sulfonamide Allergy Intermediate RASH Verified 02/10/19 19:20 Antibiotics) morphine AdvReac Mild GI SYMPTOMS Verified 02/10/19 19:20 Past Med/Surg History Medical History Cachexia Demand ischemia Chronic kidney disease, stage 3a Iron deficiency anemia Chronic systolic (congestive) heart failure CAD (coronary artery disease) s/p [place] in 1999 Atrial fibrillation Ischemic cardiomyopathy EF 25-30% Dyslipidemia Hypertension Anxiety COPD (chronic obstructive pulmonary disease) (Acute) Non compliance w medication regimen Emphysema of lung Syncope AICD malfunction Ambulatory dysfunction (Acute) Elevated troponin Left lower lobe pneumonia GIB (gastrointestinal bleeding) Reflux esophagitis SAH (subarachnoid hemorrhage) Surgical History S/P carotid endarterectomy S/P carpal tunnel release S/P hysterectomy S/P implantation of automatic cardioverter/defibrillator (AICD) Family History Father , about age 80 Coronary heart disease from acute [place] Mother , age 75 Coronary heart disease had CABG; ultimately from [place] Other Heart disease Social History Preferred Language: Kyrgyz Communication Ability: Effective Visual Impairment: No Limitations Hearing Ability: Normal Rotor Winder Required: No Beliefs That Will Affect Care: None marital status: Current Living Situation: Spouse Current Living Situation Comment: lives in [place]; has 3 children current occupational status: retired Other Information That Helps Us Care for You: 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 and A total of 10 systems reviewed and were otherwise negative Physical Exam Vital Signs Vital Signs - 24 hr 02/11/19 00:29 02/11/19 00:55 02/11/19 03:06 Temperature Temperature Source Pulse Rate [Right Finger] 61 61 Respiratory Rate 20 24 Respiratory Effort / Characteristics Non-Labored Spontaneous Spontaneous Moaning Respiratory Depth Respiratory Pattern Blood Pressure [Right Arm] Blood Pressure Mean [Right Arm] Blood Pressure Position [Right Arm] Pulse Oximetry 98 98 Oxygen Delivery Method Nasal Cannula Nasal Cannula Nasal Cannula Oxygen Flow Rate 2 2 2 02/11/19 07:01 02/11/19 07:31 02/11/19 08:45 Temperature 37.0 C Temperature Source Oral Pulse Rate [Right Finger] 61 60 Respiratory Rate 20 18 Respiratory Effort / Characteristics Non-Labored Spontaneous Non-Labored Respiratory Depth Normal Respiratory Pattern Blood Pressure [Right Arm] 112/49 L Blood Pressure Mean [Right Arm] 70 Blood Pressure Position [Right Arm] Pulse Oximetry 98 100 Oxygen Delivery Method Nasal Cannula Nasal Cannula Nasal Cannula Oxygen Flow Rate 2 2 2 02/11/19 11:07 02/11/19 14:50 02/11/19 14:57 Temperature 37.1 C Temperature Source Oral Pulse Rate [Right Finger] 61 60 60 Respiratory Rate 22 18 18 Respiratory Effort / Characteristics Spontaneous Short of Breath Non-Labored Spontaneous Respiratory Depth Respiratory Pattern Blood Pressure [Right Arm] 92/56 L Blood Pressure Mean [Right Arm] 68 Blood Pressure Position [Right Arm] Pulse Oximetry 97 97 96 Oxygen Delivery Method Nasal Cannula Nasal Cannula Nasal Cannula Oxygen Flow Rate 2 2 2 02/11/19 16:42 02/11/19 16:57 02/11/19 19:06 Temperature Temperature Source Pulse Rate [Right Finger] 59 L Respiratory Rate 16 Respiratory Effort / Characteristics Non-Labored Spontaneous Non-Labored Spontaneous Respiratory Depth Normal Respiratory Pattern Regular Blood Pressure [Right Arm] 107/44 L Blood Pressure Mean [Right Arm] 65 Blood Pressure Position [Right Arm] Sitting Pulse Oximetry 99 Oxygen Delivery Method Nasal Cannula Nasal Cannula Oxygen Flow Rate 2 2 02/11/19 23:06 02/11/19 23:27 Temperature 36.8 C Temperature Source Oral Pulse Rate [Right Finger] 60 60 Respiratory Rate 14 20 Respiratory Effort / Characteristics Non-Labored Spontaneous Respiratory Depth Respiratory Pattern Blood Pressure [Right Arm] 139/76 Blood Pressure Mean [Right Arm] 97 Blood Pressure Position [Right Arm] Pulse Oximetry 98 98 Oxygen Delivery Method Nasal Cannula Nasal Cannula Oxygen Flow Rate 2 2 GENERAL: Awake, alert, well-appearing, in no acute distress HENT: Normocephalic, atraumatic. Oropharynx unremarkable. EYES: Normal conjunctiva. Sclera non-icteric. NECK: Supple. No nuchal rigidity. FROM. No JVD. RESPIRATORY: Wheezing in all lung english. CARDIAC: Regular rate, normal rhythm. Extremities warm and well perfused. Pulses equal. ABDOMEN: Soft, non-distended. No tenderness to palpation. No rebound or guarding. No masses. RECTAL: Deferred. MUSCULOSKELETAL: Chest examination reveals no tenderness. The back is symmetrical on inspection without obvious abnormality. There is no CVA tenderness to palpation. No joint edema. LOWER EXTREMITIES: Calves are equal size bilaterally and non-tender. No edema. No discoloration. NEURO: Normal sensorium. No sensory or motor deficits noted. SKIN: No rash or jaundice noted. Covered in bruises. Course 1826: The patient was evaluated in room B09. A complete history and physical exam was performed. 2052: [facility]. She will evaluate the patient further. Consultations Consultation #1: I spoke with Dr. Florence Kumar, [facility], about the patients case. She will evaluate the patient further. Time: 20:53 Administered Medications Albuterol (Duoneb) 3 ml NEB Q4R YOSHI Stop: 03/13/19 00:00 Last Admin: 02/11/19 23:05 Dose: 3 ml Documented by: [id number] Admin: 02/11/19 19:06 Dose: Not Given Documented by: [id number] Admin: 02/11/19 14:49 Dose: 3 ml Documented by: [id number] Admin: 02/11/19 11:02 Dose: 3 ml Documented by: [id number] Admin: 02/11/19 07:01 Dose: Not Given Documented by: [id number] Admin: 02/11/19 03:04 Dose: 3 ml Documented by: [id number] Admin: 02/11/19 00:53 Dose: 3 ml Documented by: [id number] Arformoterol Tartrate (Brovana Neb) 15 mcg INH BIDR YOSHI Stop: 03/13/19 07:59 Last Admin: 02/11/19 19:05 Dose: 15 mcg Documented by: [id number] Admin: 02/11/19 07:01 Dose: 15 mcg Documented by: [id number] Aspirin (Ecotrin Ectab) 81 mg PO HS YOSHI Stop: 03/13/19 20:59 Last Admin: 02/11/19 20:38 Dose: 81 mg Documented by: [id number] Atorvastatin Calcium (Lipitor) 80 mg PO HS YOSHI Stop: 03/13/19 20:59 Last Admin: 02/11/19 20:39 Dose: 80 mg Documented by: [id number] Budesonide (Pulmicort Respules) 0.5 mg NEB BIDR YOSHI Stop: 03/13/19 07:59 Last Admin: 02/11/19 19:05 Dose: 0.5 mg Documented by: [id number] Admin: 02/11/19 07:01 Dose: 0.5 mg Documented by: [id number] Carvedilol (Coreg) 25 mg PO BID [facility] Stop: 03/13/19 08:59 Last Admin: 02/11/19 20:40 Dose: Not Given Documented by: [id number] Admin: 02/11/19 10:04 Dose: 25 mg Documented by: [id number] Clopidogrel Bisulfate (Plavix) 75 mg PO QAM [facility] Stop: 03/13/19 08:59 Last Admin: 02/11/19 10:04 Dose: 75 mg Documented by: [id number] Ezetimibe (Zetia) 10 mg PO HS [facility] Stop: 03/13/19 20:59 Last Admin: 02/11/19 20:41 Dose: 10 mg Documented by: [id number] Ferrous S[facility] Stop: 03/13/19 08:59 Last Admin: 02/11/19 10:04 Dose: 325 mg Documented by: [id number] Furosemide (Lasix) 40 mg PO BID17 [facility] Stop: 03/13/19 08:59 Last Admin: 02/11/19 16:52 Dose: 40 mg Documented by: [id number] Admin: 02/11/19 10:04 Dose: 40 mg Documented by: [id number] Guaifenesin (Mucinex) 600 mg PO Q12 [facility] Stop: 03/13/19 08:59 Last Admin: 02/11/19 20:39 Dose: 600 mg Documented by: [id number] Admin: 02/11/19 10:04 Dose: 600 mg Documented by: [id number] Ampicillin Sodium 1,000 mg/ (Sodium Chloride) 50 mls @ 100 mls/hr IV Q6H [facility] Stop: 02/16/19 18:59 Last Infusion: 02/11/19 20:43 Dose: 0 mls/hr Documented by: [id number] Admin: 02/11/19 19:28 Dose: 100 mls/hr Documented by: [id number] Ioversol (Optiray 320 125ml) 120 ml IV ONCE PRN PRN Reason: Interaction Checking Stop: 02/15/19 08:38 Last Admin: 02/11/19 08:40 Dose: 120 ml Documented by: [id number] Lisinopril (Zestril) 2.5 mg PO DAILY [facility] Stop: 03/13/19 08:59 Last Admin: 02/11/19 10:04 Dose: 2.5 mg Documented by: [id number] Lorazepam (Ativan) 0.5 mg PO Q8H PRN PRN Reason: anxiety Stop: 03/13/19 00:00 Last Admin: 02/11/19 10:04 Dose: 0.5 mg Documented by: [id number] Metoclopramide HCl (Reglan) 5 mg PO AC [facility] Stop: 03/13/19 07:29 Last Admin: 02/11/19 16:21 Dose: 5 mg Documented by: [id number] Admin: 02/11/19 11:14 Dose: 5 mg Documented by: [id number] Admin: 02/11/19 10:04 Dose: 5 mg Documented by: [id number] Pantoprazole Sodium (Protonix) 40 mg PO BID [facility] Stop: 03/13/19 08:59 Last Admin: 02/11/19 20:38 Dose: 40 mg Documented by: [id number] Admin: 02/11/19 10:04 Dose: 40 mg Documented by: [id number] Potassium Chloride (Klor-Con M20) 20 meq PO QAM [facility] Stop: 03/13/19 08:59 Last Admin: 02/11/19 10:04 Dose: 20 meq Documented by: [id number] Pramipexole Dihydrochloride (Mirapex) 0.25 mg PO [facility] Stop: 03/13/19 20:59 Last Admin: 02/11/19 20:38 Dose: 0.25 mg Documented by: [id number] Sertraline HCl (Zoloft) 50 mg PO [facility] Stop: 03/13/19 20:59 Last Admin: 02/11/19 20:39 Dose: 50 mg Documented by: [id number] Discontinued Medications Al Hydrox/Mg Hydrox/Simethicone () 1 dose PO ONE ONE Stop: 02/10/19 19:10 Last Admin: 02/10/19 19:19 Dose: 1 dose Documented by: [id number] Enoxaparin Sodium (Lovenox) 30 mg SQ QAM [facility] Stop: 03/13/19 08:59 Last Admin: 02/11/19 10:05 Dose: Not Given Documented by: [id number] Famotidine (Pepcid) 20 mg PO NOW ONE Stop: 02/10/19 19:10 Last Admin: 02/10/19 19:19 Dose: 20 mg Documented by: [id number] Furosemide (Lasix) 40 mg IV NOW STA Stop: 02/10/19 20:50 Last Admin: 02/10/19 21:37 Dose: 40 mg Documented by: [id number] Heparin Sodium (Porcine) (Heparin Sodium (Porcine)) 5,000 units SC Q12 YOSHI Stop: 03/13/19 12:59 Last Admin: 02/11/19 14:40 Dose: Not Given Documented by: [id number] Sodium Chloride (Nss) 500 mls @ 999 mls/hr IV .Q31M YOSHI Stop: 02/10/19 19:15 Last Infusion: 02/10/19 20:09 Dose: 0 mls/hr Documented by: [id number] Admin: 02/10/19 18:43 Dose: 999 mls/hr Documented by: [id number] Ioversol (Optiray 320 100ml) 95 ml IV ONCE PRN PRN Reason: Interaction Checking Stop: 02/14/19 19:54 Last Admin: 02/10/19 19:56 Dose: 95 ml Documented by: [id number] Levalbuterol HCl (Xopenex 1.25mg/3ml Neb) 1.25 mg NEB NOW STA Stop: 02/10/19 18:34 Last Admin: 02/10/19 18:59 Dose: 1.25 mg Documented by: [id number] Lorazepam (Ativan) 0.5 mg SL NOW STA Stop: 02/10/19 18:36 Last Admin: 02/10/19 18:43 Dose: 0.5 mg Documented by: [id number] Lorazepam (Ativan) 1 mg SL NOW STA Stop: 02/10/19 21:26 Last Admin: 02/10/19 21:37 Dose: 1 mg Documented by: [id number] Pramipexole Dihydrochloride (Mirapex) 0.25 mg PO NOW STA Stop: 02/10/19 23:15 Last Admin: 02/10/19 23:42 Dose: 0.25 mg Documented by: [id number] Sucralfate (Carafate Tab) 1 gm PO NOW STA Stop: 02/10/19 19:10 Last Admin: 02/10/19 19:19 Dose: 1 gm Documented by: [id number] Medical Decision Making Differential Diagnosis The differential diagnosis includes: dehydration, stroke, anemia, hypoglycemia, hyponatremia, hypernatremia, urinary tract infection, pneumonia, bronchitis, sepsis, gastroenteritis, additional abdominal pathology, metabolic abnormalities and infections. Medical Records Attestation: I reviewed the patient's medical records. Home Medications Current Medication List: was personally reviewed by me Laboratory Data Attestation: I reviewed the patient's lab results. Result diagrams: 02/11/19 09:35 02/11/19 09:35 Lab Results 02/10/19 02/10/19 02/10/19 Range/Units 18:41 18:41 18:44 WBC 9.01 (4.8-10.8) K/uL RBC 3.06 L (4.2-5.4) M/uL Hgb 9.0 L (12.0-16.0) g/dL POC Hgb 9.2 L (12.0-16.0) g/dl Hct 28.1 L (37-47) % POC Hct 27 L (37-47) % MCV 91.8 (80-100) fL MCH 29.4 (25-34) pg MCHC 32.0 (32-36) g/dL RDW Std Deviation 76.2 H (36.4-46.3) fL RDW Coeff of Kiana 22.7 H (11.5-14.5) % Plt Count 291 (130-400) K/uL MPV 8.9 (7.4-10.4) fL Immature Gran % (Auto) 0.4 % Neut % (Auto) 64.5 % Lymph % (Auto) 24.0 % [place] % (Auto) 10.8 % Eos % (Auto) 0.1 % Baso % (Auto) 0.2 % Immature Gran # (Auto) 0.04 H (0.00-0.02) K/uL Neut # (Auto) 5.81 (1.4-6.5) K/uL Lymph # (Auto) 2.16 (1.2-3.4) K/uL [place] # (Auto) 0.97 H (0.11-0.59) K/uL Eos # (Auto) 0.01 (0-0.5) K/uL Baso # (Auto) 0.02 (0-0.2) K/uL Poikilocytosis Anisocytosis Present Tear Drop Cells 1+ Ovalocytes 1+ Acanthocytes (Spur) 1+ PT (9.0-12.0) Seconds INR (0.9-1.1) POC Sodium 136 (135-144) mEq/L Sodium 139 (136-145) mmol/L POC Potassium 4.3 (3.3-5.0) mEq/L Potassium 4.4 (3.5-5.1) mmol/L POC Chloride 99 L (101-112) mEq/L Chloride 105 (98-107) mmol/L Carbon Dioxide 27 (21-32) mmol/L POC Total CO2 26 (24-31) mEq/l Anion Gap 7.0 (3-11) POC Anion Gap 16.0 (16-25) mmol/L POC BUN 35 H (7-18) mg/dl BUN 38 H (7-18) mg/dl Creatinine 0.94 (0.6-1.2) mg/dl POC Creatinine 1.0 (0.6-1.3) mg/dl Est Cr Clr Drug Dosing 35.8 ml/min Est GFR ( Amer) 69.3 Est GFR (Non-Af Amer) 59.8 BUN/Creatinine Ratio 40.8 H (10-20) Glucose 111 H (70-99) mg/dl POC Glucose (other) 117 H (70-99) mg/dl POC Lactic Acid Jonn (0.90-1.70) mmol/L Calcium 9.1 (8.5-10.1) mg/dl POC Ioniz Calcium Sonia 1.15 (1.12-1.32) mmol/l Phosphorus 3.9 (2.5-4.9) mg/dl Magnesium 2.0 (1.8-2.4) mg/dl Total Bilirubin 0.4 (0.2-1) mg/dl AST 16 (15-37) U/L ALT 20 (12-78) U/L Alkaline Phosphatase 48 (45-117) U/L Total Creatine Kinase 26 (26-192) U/L Troponin I 0.089 H* (0-0.045) ng/ml NT-Pro-B Natriuret Pep 51680 H (0-900) pg/ml Total Protein 5.5 L (6.4-8.2) gm/dl Albumin 2.6 L (3.4-5.0) gm/dl Globulin 2.9 (2.5-4.0) gm/dl Albumin/Globulin Ratio 0.9 (0.9-2) TSH 11.900 H (0.300-4.500) uIu/ml Free T4 1.50 (0.8-1.6) ng/dl Urine Color Urine Appearance (Clear) Urine pH (4.5-7.5) Ur Specific [place] (1.000-1.030) Urine Protein (Negative) Urine Glucose (UA) (Negative) Urine Ketones (Negative) Urine Blood (Negative) Urine Nitrite (Negative) Urine Bilirubin (Negative) Urine Urobilinogen (Negative) Ur Leukocyte Esterase (Negative) Urine WBC (Auto) (0-5) /hpf Urine RBC (Auto) (0-4) /hpf U Hyaline Cast (Auto) (0-5) /lpf U Epithel Cells (Auto) (0-5) /lpf Urine Bacteria (Auto) (Negative) 02/10/19 02/10/19 02/11/19 Range/Units 18:55 21:31 09:35 WBC 6.40 (4.8-10.8) K/uL RBC 2.62 L (4.2-5.4) M/uL Hgb 7.7 L (12.0-16.0) g/dL POC Hgb (12.0-16.0) g/dl Hct 24.3 L (37-47) % POC Hct (37-47) % MCV 92.7 (80-100) fL MCH 29.4 (25-34) pg MCHC 31.7 L (32-36) g/dL RDW Std Deviation 77.7 H (36.4-46.3) fL RDW Coeff of Kiana 22.8 H (11.5-14.5) % Plt Count 213 (130-400) K/uL MPV 8.5 (7.4-10.4) fL Immature Gran % (Auto) 0.3 % Neut % (Auto) 71.7 % Lymph % (Auto) 14.5 % [place] % (Auto) 13.0 % Eos % (Auto) 0.3 % Baso % (Auto) 0.2 % Immature Gran # (Auto) 0.02 (0.00-0.02) K/uL Neut # (Auto) 4.59 (1.4-6.5) K/uL Lymph # (Auto) 0.93 L (1.2-3.4) K/uL [place] # (Auto) 0.83 H (0.11-0.59) K/uL Eos # (Auto) 0.02 (0-0.5) K/uL Baso # (Auto) 0.01 (0-0.2) K/uL Poikilocytosis Present Anisocytosis Present Tear Drop Cells Ovalocytes Acanthocytes (Spur) PT (9.0-12.0) Seconds INR (0.9-1.1) POC Sodium (135-144) mEq/L Sodium (136-145) mmol/L POC Potassium (3.3-5.0) mEq/L Potassium (3.5-5.1) mmol/L POC Chloride (101-112) mEq/L Chloride (98-107) mmol/L Carbon Dioxide (21-32) mmol/L POC Total CO2 (24-31) mEq/l Anion Gap (3-11) POC Anion Gap (16-25) mmol/L POC BUN (7-18) mg/dl BUN (7-18) mg/dl Creatinine (0.6-1.2) mg/dl POC Creatinine (0.6-1.3) mg/dl Est Cr Clr Drug Dosing ml/min Est GFR ( Amer) Est GFR (Non-Af Amer) BUN/Creatinine Ratio (10-20) Glucose (70-99) mg/dl POC Glucose (other) (70-99) mg/dl POC Lactic Acid Jonn 1.63 (0.90-1.70) mmol/L Calcium (8.5-10.1) mg/dl POC Ioniz Calcium Sonia (1.12-1.32) mmol/l Phosphorus (2.5-4.9) mg/dl Magnesium (1.8-2.4) mg/dl Total Bilirubin (0.2-1) mg/dl AST (15-37) U/L ALT (12-78) U/L Alkaline Phosphatase (45-117) U/L Total Creatine Kinase (26-192) U/L Troponin I (0-0.045) ng/ml NT-Pro-B Natriuret Pep (0-900) pg/ml Total Protein (6.4-8.2) gm/dl Albumin (3.4-5.0) gm/dl Globulin (2.5-4.0) gm/dl Albumin/Globulin Ratio (0.9-2) TSH (0.300-4.500) uIu/ml Free T4 (0.8-1.6) ng/dl Urine Color Yellow Urine Appearance Cloudy A (Clear) Urine pH 5.0 (4.5-7.5) Ur Specific [place] 1.020 (1.000-1.030) Urine Protein Trace H (Negative) Urine Glucose (UA) Negative (Negative) Urine Ketones Negative (Negative) Urine Blood Trace H (Negative) Urine Nitrite Negative (Negative) Urine Bilirubin Negative (Negative) Urine Urobilinogen Negative (Negative) Ur Leukocyte Esterase 2+ H (Negative) Urine WBC (Auto) >30 H (0-5) /hpf Urine RBC (Auto) 0-4 (0-4) /hpf U Hyaline Cast (Auto) 5-10 H (0-5) /lpf U Epithel Cells (Auto) 0-5 (0-5) /lpf Urine Bacteria (Auto) Negative (Negative) 02/11/19 02/11/19 Range/Units 09:35 09:35 WBC (4.8-10.8) K/uL RBC (4.2-5.4) M/uL Hgb (12.0-16.0) g/dL POC Hgb (12.0-16.0) g/dl Hct (37-47) % POC Hct (37-47) % MCV (80-100) fL MCH (25-34) pg MCHC (32-36) g/dL RDW Std Deviation (36.4-46.3) fL RDW Coeff of Kiana (11.5-14.5) % Plt Count (130-400) K/uL MPV (7.4-10.4) fL Immature Gran % (Auto) % Neut % (Auto) % Lymph % (Auto) % [place] % (Auto) % Eos % (Auto) % Baso % (Auto) % Immature Gran # (Auto) (0.00-0.02) K/uL Neut # (Auto) (1.4-6.5) K/uL Lymph # (Auto) (1.2-3.4) K/uL [place] # (Auto) (0.11-0.59) K/uL Eos # (Auto) (0-0.5) K/uL Baso # (Auto) (0-0.2) K/uL Poikilocytosis Anisocytosis Tear Drop Cells Ovalocytes Acanthocytes (Spur) PT 11.5 (9.0-12.0) Seconds INR 1.1 (0.9-1.1) POC Sodium (135-144) mEq/L Sodium 141 (136-145) mmol/L POC Potassium (3.3-5.0) mEq/L Potassium 3.7 D (3.5-5.1) mmol/L POC Chloride (101-112) mEq/L Chloride 107 (98-107) mmol/L Carbon Dioxide 28 (21-32) mmol/L POC Total CO2 (24-31) mEq/l Anion Gap 6.0 (3-11) POC Anion Gap (16-25) mmol/L POC BUN (7-18) mg/dl BUN 28 H (7-18) mg/dl Creatinine 0.81 (0.6-1.2) mg/dl POC Creatinine (0.6-1.3) mg/dl Est Cr Clr Drug Dosing 42.0 ml/min Est GFR ( Amer) 82.9 Est GFR (Non-Af Amer) 71.5 BUN/Creatinine Ratio 34.7 H (10-20) Glucose 85 (70-99) mg/dl POC Glucose (other) (70-99) mg/dl POC Lactic Acid Jonn (0.90-1.70) mmol/L Calcium 8.7 (8.5-10.1) mg/dl POC Ioniz Calcium Sonia (1.12-1.32) mmol/l Phosphorus (2.5-4.9) mg/dl Magnesium (1.8-2.4) mg/dl Total Bilirubin (0.2-1) mg/dl AST (15-37) U/L ALT (12-78) U/L Alkaline Phosphatase (45-117) U/L Total Creatine Kinase (26-192) U/L Troponin I (0-0.045) ng/ml NT-Pro-B Natriuret Pep (0-900) pg/ml Total Protein (6.4-8.2) gm/dl Albumin (3.4-5.0) gm/dl Globulin (2.5-4.0) gm/dl Albumin/Globulin Ratio (0.9-2) TSH (0.300-4.500) uIu/ml Free T4 (0.8-1.6) ng/dl Urine Color Urine Appearance (Clear) Urine pH (4.5-7.5) Ur Specific [place] (1.000-1.030) Urine Protein (Negative) Urine Glucose (UA) (Negative) Urine Ketones (Negative) Urine Blood (Negative) Urine Nitrite (Negative) Urine Bilirubin (Negative) Urine Urobilinogen (Negative) Ur Leukocyte Esterase (Negative) Urine WBC (Auto) (0-5) /hpf Urine RBC (Auto) (0-4) /hpf U Hyaline Cast (Auto) (0-5) /lpf U Epithel Cells (Auto) (0-5) /lpf Urine Bacteria (Auto) (Negative) Imaging Data Radiologist's Impression: Radiology results as stated below per my review and the radiologist's interpretation: XR chest 1V portable HISTORY: 73 years-old Female weakness acute weakness COMPARISON: Chest radiograph 01/18/2019 TECHNIQUE: Portable AP view of the chest FINDINGS: Cardiac silhouette is moderately enlarged. Stable positioning of the left subclavian pacer/AICD. Calcification of the thoracic aortic arch. No pneumothorax, pleural effusion, focal airspace consolidation or overt pulmonary edema. Degenerative changes of the shoulders and spine. IMPRESSION: Cardiomegaly without acute process. The above report was generated using voice recognition software. It may contain grammatical, syntax or spelling errors. Electronically signed by: Angelito Portillo M.D. 02/10/2019 7:[address] OF THE ABDOMEN AND PELVIS WITH CONTRAST CLINICAL HISTORY: Nausea. COMPARISON STUDY: CT of the abdomen and pelvis January 25, 2019. TECHNIQUE: Following IV administration of 95 mL of [id number]-320, axial images of the abdomen and pelvis were obtained from the lung bases to the proximal femurs. Images were reviewed in the axial, sagittal, and coronal planes. IV contrast was administered without complication. Automated exposure control was utilized for the study. A dose lowering technique was utilized adhering to the principles of ALARA. CT DOSE: 227.12 mGy.cm FINDINGS: Cardiomegaly is noted. Bibasilar opacities favor atelectasis. No pneumatosis, free air or portal venous gas is present. The liver, spleen, adrenal glands and pancreas are unremarkable. Pancreas divisum is noted. There are bilateral renal cysts. There are gallstones within the gallbladder without evidence for acute cholecystitis. The abdominal aorta is ectatic. There is extensive atherosclerotic plaque of the abdominal aorta and branch vessels which are suboptimally assessed on this non-CTA exam. No bowel wall thickening is noted. There is no evidence for a bowel obstruction. The appendix is normal. There is no ascites or lymphadenopathy. No suspicious skeletal lesions are noted. Old L1 compression fractures unchanged. IMPRESSION: 1. No acute process within the abdomen or pelvis. 2. Cholelithiasis. 3. Extensive atherosclerotic plaque of the abdominal aorta and branch vessels, suboptimally assessed on this non-CTA exam. Electronically signed by: Bora Schmitt M.D. 02/10/2019 8:[address] OF THE HEAD WITHOUT CONTRAST CLINICAL HISTORY: Nausea. Multiple falls. COMPARISON STUDY: Head CT August 16, 2017. CT DOSE: 537.48 mGy.cm TECHNIQUE: Helical axial images of the head were obtained without IV contrast. Automated exposure control was utilized for the study. A dose lowering techn ique was utilized adhering to the principles of ALARA. FINDINGS: No acute intracranial hemorrhage, midline shift or mass effect is present. Encephalomalacia within the right MCA territory with calcified laminar necrosis is chronic. The ventricular system is unremarkable. The basilar cisterns are patent. There are no extra axial collections. There are no findings to suggest acute dural sinus thrombosis or acute territorial infarct. White matter hypodensity suggests small vessel disease. There is no calvarial fracture. IMPRESSION: 1. No acute intracranial findings. 2. Old right MCA territory infarct. 2. No calvarial fracture. Electronically signed by: Bora Schmitt M.D. 02/10/2019 8:14 PM ECG Data Attestation: I personally reviewed and interpreted this ECG as follows: Indication: weakness Rate (beats per minute): 60 Rhythm: other (paced) Findings: no ST depression and no ST elevation Blood Pressure Blood Pressure Findings: Elevated blood pressure Blood Pressure Disposition: further management by hospitalist HUMERA Kohler This is a 73-year-old female who presents the emergency department complaining of nausea that has been present for a month. Patient reports the nausea is worse after she eats. She was sent for a CAT scan of the abdomen and pelvis. After going over the CAT scan and reexamining the patient I strongly suspect that the patient is most likely suffering from mesenteric ischemia. In addition she does have congestive heart failure. Her troponin is elevated. I did discuss the case with the hospitalist service who agreed to admit the patient. Patient family were in agreement with the treatment plan. Impression & Plan Mesenteric artery stenosis, COPD (chronic obstructive pulmonary disease), Nausea, Pulmonary congestion, Elevated troponin Discharge Plan Visit Data *Final* Discharge Date/Time: 02/10/19 23:36 Chief Complaint: Nausea Stated Complaint: WEAKNESS, NAUSEA ED Provider: Chester Grey Discharge Problem: Mesenteric artery stenosis, COPD (chronic obstructive pulmonary disease), Nausea, Pulmonary congestion, Elevated troponin Patient Disposition: Admitted As Inpatient Discharge Instructions Interventions: ED Discharge Assessment Last Done: 02/10/19 23:36 The scribe's documentation has been prepared under my direction and personally reviewed by me in its entirety. I confirm that the note above accurately reflects all work, treatment, procedures, and medical decision making performed by me.
[2019-02-12] MEDS: AMPICILLIN 1,000 MG in SODIUM CHLOR 0.9% AD-VAN 50 ML IV SCH ×4 (00:39→18:55)
[2019-02-12] MEDS: ALBUT/IPRATROP 3MG/0.5MG NEB 3 ML VIAL NEB SCH ×6 (03:39→23:20)
[2019-02-12 05:54] LABS: Basophils # (auto) 0.01 K/uL (0-0.2); Basophils % (auto) 0.2 %; Eosinophils # (auto) 0.02 K/uL (0-0.5); Eosinophils % (auto) 0.4 %; Hematocrit (blood only) 22.9 % (37-47); Hemoglobin 7.3 g/dL (12.0-16.0); Immature Granulocytes # (auto) 0.02 K/uL (0.00-0.02); Immature Granulocytes % (auto) 0.4 %; Lymphocytes # (auto) 0.79 K/uL (1.2-3.4); Mean Corpuscular Hgb Conc 31.9 g/dL (32-36); Mean Corpuscular Volume 93.5 fL (80-100); Monocytes % (auto) 13.3 %; Neutrophils # (auto) 3.73 K/uL (1.4-6.5); Neutrophils % (auto) 70.7 %; Platelet Count 205 K/uL (130-400); RDW Coefficient of Variation 22.8 % (11.5-14.5); RDW Standard Deviation 79.1 fL (36.4-46.3); Red Blood Count 2.45 M/uL (4.2-5.4); White Blood Count 5.27 K/uL (4.8-10.8)
[2019-02-12 06:24] LABS: BUN Creatinine Ratio 23.1 (10-20); Calcium 8.3 mg/dl (8.5-10.1); Creatinine Clr Calc Pharmacy 36.6 ml/min; Est GFR (African American) 70.2; Est GFR (Non-African American) 60.5; Potassium 3.9 mmol/L (3.5-5.1)
[2019-02-12 06:29] LABS: Ferritin 122.6 ng/ml (8-388)
[2019-02-12 06:47] LABS: Poikilocytosis Present; Polychromasia 1+
[2019-02-12] MEDS: BUDESONIDE 0.5 MG/2 ML VIAL (PULMICORT) NEB SCH ×2 (07:17→19:08)
[2019-02-12] MEDS: ARFORMOTEROL TART 15MCG/2ML VIAL INH SCH ×2 (07:17→19:08)
[2019-02-12 08:03] LABS: Vitamin B12 495 pg/ml (211-911)
[2019-02-12 08:04] LABS: Folate (Folic Acid) > 24.00 ng/ml (>5.38)
[2019-02-12] MEDS: METOCLOPRAMIDE HCL 5 MG TABLET PO SCH ×3 (08:55→16:21)
[2019-02-12] MEDS: CLOPIDOGREL BISULFATE 75 MG TAB PO SCH (08:55)
[2019-02-12] MEDS: PANTOprazole 40 MG TAB PO SCH ×2 (08:55→20:15)
[2019-02-12] MEDS: guaiFENesin 600 MG TABCR PO SCH ×2 (08:55→20:14)
[2019-02-12] MEDS: FERROUS SULFATE 325 MG TAB PO SCH (08:56)
[2019-02-12] MEDS: LISINOPRIL 2.5 MG TAB PO SCH (08:57)
[2019-02-12] MEDS: FUROSEMIDE 40 MG TAB PO SCH ×2 (08:57→16:22)
[2019-02-12] MEDS: CARVEDILOL 25 MG TAB PO SCH ×2 (08:57→20:13)
[2019-02-12] MEDS: POTASSIUM CHLORIDE 20 MEQ TABCR PO SCH (08:57)
[2019-02-12] MEDS ORDERED: SODIUM CHLORIDE 0.9% 250 ML IV PRN (09:06)
[2019-02-12] MEDS ORDERED: FUROSEMIDE 20 MG in SYRINGE 0 ML IV ONE (09:30)
[2019-02-12] MEDS: LORazepam 0.5 MG TAB PO PRN ×2 (13:58→20:21)
--- NOTE | 2019-02-12 16:33 | Consultation Report ---
DATE OF CONSULTATION: 02/12/2019 GI CONSULT NOTE REASON FOR EVALUATION: Abdominal pain, nausea and vomiting and weight loss and anemia. HISTORY OF PRESENT ILLNESS: The patient is a 73-year-old admitted with abdominal pain, weight loss, nausea and anemia. The patient has had these symptoms ongoing for about 5-6 months and they have gotten progressive. She does have severe vascular disease and has stents in her superior mesenteric artery. 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 She is currently receiving IV blood transfusion. Of note is that the patient as an outpatient was on aspirin and Plavix, but was also taking Protonix. She has never had an ulcer before that she is aware of. She does have gallstones, which are felt to be incidental finding. She does have others, fairly significant health problems that are impacting her overall decision making. PAST MEDICAL HISTORY: Remarkable for chronic kidney disease, iron deficiency anemia, atrial fibrillation, dyslipidemia, hypertension, COPD, coronary artery disease, peripheral vascular disease requiring stents, congestive heart failure, anxiety, restless leg syndrome. She has had a carotid endarterectomy, carpal tunnel release, hysterectomy for fibroids. She has a pacer defibrillator, has had vascular stent placed as well. MEDICATIONS: Per list. ALLERGIES: SULFA AND MORPHINE. FAMILY HISTORY: Positive for father of coronary artery disease and an IA. Mother also had a bypass operation, from an IA. SOCIAL HISTORY: The patient lives with her spouse in [place]. She is a former smoker. No alcohol. REVIEW OF SYSTEMS: Remarkable for GI symptoms as stated. PHYSICAL EXAMINATION: GENERAL: The patient appears thin and frail, but in no acute distress. She has no respiratory distress at rest. ABDOMEN: Shows a low midline scar. There is mild central tenderness. No mass or rebound. IMPRESSION: The patient has abdominal pain, nausea, weight loss and anemia. She is a really poor candidate for sedation given her other major health issues. It is possible she could have an ulcer given the fact that she has been on aspirin. So, I plan on getting an upper GI x-ray tomorrow to see if there are any signs of an ulcer in her stomach or duodenum. Her gallstones appear to be an incidental finding, but if nothing else is found, we could consider doing a biliary scan to assess the function of her gallbladder, but then a decision will need to be made whether or not to operate given her other significant health issues. We will follow the patient.
--- NOTE | 2019-02-12 19:16 | Hospitalist Progress Note ---
Date of Service February 12, 2019 Assessment & Plan (1) Abdominal pain: Patient presents with dull, crampy post-prandial abdominal pain and nausea ongoing for at least several months with significant weight loss. History of CAD, carotid stenosis s/p endarterectomy, CKD. Extensive atherosclerotic plaques noted on non-contrast abdominal CT from ER. Concern for chronic mesenteric ischemia / intestinal angina. CT angiogram of the abdomen pelvis obtained and does show 90% stenosis of the celiac axis and stents in the SMA and KYLEE Vascular surgery consulted and recommend not performing any intervention at this time as she is high risk with comorbidities and also unclear if this is actually causing her pain Does have pancreas divisum noted on her CT. No evidence of pancreatitis, lipase has always been normal. She has iron deficiency anemia as below and is on aspirin and Plavix-she has ne edith had an EGD to her knowledge After receiving 2 units of packed red blood cells this morning, she reports feeling the best that she has in over a month-no more nausea or abdominal pain. Perhaps her pain was from abdominal angina and is improved with transfusion. -Consult GI-feels too high risk for EGD at this time and is on Protonix -Plan for upper GI series in the morning, n.p.o. after midnight -Continue Protonix p.o. twice daily -Tolerating heart healthy diet at this time -Continue CAD home medications, ASA, Atorvastatin, Plavix, Carvedilol, Zetia -Continue Tramadol as needed, Compazine as needed, Zofran as needed, and will discontinue scheduled Reglan (2) Cachexia: Patient cachectic/sarcopenic. Albumin=2.6. Reports poor appetite and de creased PO intake, along with weight loss She has lost at least 5-6 kg in the last month alone -Consult Nutrition services for supplements -PT/OT evaluation for complaint of weakness -GI work-up as above -Hopefully will improve now that abdominal pain is improved (3) Iron deficiency anemia: Patient with normochromic/normocytic anemia, hgb has now dropped to 7.3. No gross bleeding Required blood transfusion on admission in 12/2018 and was iron deficient on labs prior to that With nausea, weight loss, abdominal pain, and on ASA/Plavix, a consult to GI to see about EGD this admission was performed and too high risk for that at this time as above Transfused 2 units of PRBCs on 02/12 with significant improvement in symptoms as above -previous colonoscopy in 2012 with diverticulosis only - iron studies here consistent with iron deficiency anemia Hemoccult stool pending, B12 and folate are normal -Continue PO iron supplement 325 mill grams once daily -Continue to monitor CBC -Continue to transfuse as needed (4) Chronic kidney disease, stage 3a: BUN and Cr near baseline 0.9, electrolytes WNL -Continue to monitor BUN, Cr and electrolytes -Avoid nephrotoxic agents -Renal dosing where appropriate (5) Atrial fibrillation: Patient V-paced. Not presently on anticoagulation due to history of severe anemia -Continue to monitor (6) Dyslipidemia: Chronic -Continue Zetia and Atorvastatin (7) Hypertension: Blood pressure stable -Continue Carvedilol, Lisinopril, Lasix (8) COPD (chronic obstructive pulmonary disease): Chronic. Patient reports stable SOB. No cough, sputum or wheeze -Continue home agents - Albuterol/Ipratropium, Albuterol PRN, Arfomoterol, Budesonide (9) CAD (coronary artery disease): No CP. No evidence of acute ischemia on EKG. Patient with ICM, chronic systolic CHF. Appear well compensated at present. Mildly elevated troponin at 0.089 which appears to be chronic -Continue ASA, Plavix, Carvedilol, Lisinopril, Atorvastatin and Zetia -Continue to monitor (10) Chronic systolic (congestive) heart failure: Patient appears [place]. [place] [id number] - chronically elevated LVEF on last echo is 25-30% and is an ischemic cardiomyopathy -Continue Carvedilol, Lasix, Lisinopril -Continue to monitor Gave extra Lasix with blood transfusion today -Follow I's and O's, daily weights (11) Anxiety: Stable -Continue Sertraline -Continue home Ativan (12) Restless leg syndrome: Chronic. -Continue Mirapex (13) UTI (urinary tract infection) due to Enterococcus: Growing Enterococcus faecalis in the urine culture with grossly abnormal UA Given abdominal pain, treating with antibiotics -Continue ampicillin 1 g IV every 6 hours -Convert to p.o. antibiotics when able to 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 as above No intervention for now -Continue aspirin, Plavix, statin -Avoid hypotension and transfuse as needed to keep blood count greater than 8 (15) Renal artery stenosis: Noted to be moderate and has 4 right renal arteries all with stenosis Renal function stable (16) Iliac artery aneurysm: Noted on CT angiogram, 2 cm Seen by vascular surgery (17) DVT prophylaxis: Hold heparin SQ for now given severe anemia and possibility of GI bleeding Disposition-remain on medical floor Subjective Patient reports feeling the best she has in over a month today. She received 2 units of blood transfused this morning and did well with that. Denies shortness of breath or chest pain. Denies any nausea or abdominal pain and she just ate pot roast and carrots for dinner. She reports in the past month, her nausea and pain were so bad that she did not care if she lived or . Today she is hopeful that things are getting better. No bowel movement yet since she has been here. Review of Systems Review of Systems: All systems reviewed & are unremarkable except as noted in HPI & below Physical Exam Constitutional: + thin; no acute distress Eyes: PERRL, conjunctivae normal, anicteric sclerae Neck: trachea midline, no thyromegaly Respiratory: normal respiratory effort (Nasal cannula in place) Auscultation: + diminished lung sounds (Throughout); no crackles and no wheezes Cardiovascular: RRR, no murmur, no edema Gastrointestinal (Abdomen): Inspection/Auscultation: normal bowel sounds; + abdomen abnormal to inspection (Midline incisional scar) Percussion/Palpation: abdomen soft; abdomen nontender, no splenomegaly, no hernia and no abdominal mass Musculoskeletal: Extremities: extremities normal to inspection; no cyanosis and no clubbing Skin: + ecchymosis (Multiple small areas of ecchymosis on the legs and arms) Neurologic: moves all extremities and awake; no focal motor deficits Psychiatric: A+Ox3, euthymic affect Results & Data Vital Signs (Past 12 Hours) Vital Signs Temp Pulse Pulse Resp BP BP BP 02/12/19 19:09 69 18 02/12/19 18:07 36.8 C 60 19 93/57 L 02/12/19 17:37 36.8 C 59 L 20 90/48 L 02/12/19 16:26 36.5 C 60 19 107/55 L 02/12/19 16:08 36.8 C 63 18 103/61 02/12/19 15:30 36.9 C 60 20 109/58 L 02/12/19 15:15 36.9 C 61 18 111/70 02/12/19 15:02 60 02/12/19 15:00 36.3 C L 61 18 101/65 02/12/19 14:56 36.3 C L 61 18 101/65 02/12/19 12:32 37.0 C 59 L 20 98/41 L 02/12/19 11:30 36.7 C 62 18 95/61 L 02/12/19 11:17 77 18 02/12/19 10:58 37.0 C 60 16 107/66 02/12/19 10:30 37.0 C 60 16 109/67 02/12/19 10:15 36.5 C 60 16 95/62 L 02/12/19 09:58 36.8 C 60 18 88/36 L 02/12/19 07:21 36.7 C 59 L 20 91/55 L 02/12/19 07:18 66 18 Pulse Ox 02/12/19 19:09 96 02/12/19 18:07 98 02/12/19 17:37 90 02/12/19 16:26 98 02/12/19 16:08 97 02/12/19 15:30 99 02/12/19 15:15 100 02/12/19 15:02 96 02/12/19 15:00 97 02/12/19 14:56 97 02/12/19 12:32 100 02/12/19 11:30 99 02/12/19 11:17 96 02/12/19 10:58 02/12/19 10:30 02/12/19 10:15 02/12/19 09:58 98 02/12/19 07:21 97 02/12/19 07:18 95 Laboratory Results 02/12/19 02/12/19 02/12/19 Range/Units 05:29 05:29 05:29 WBC 5.27 (4.8-10.8) K/uL RBC 2.45 L (4.2-5.4) M/uL Hgb 7.3 L (12.0-16.0) g/dL Hct 22.9 L (37-47) % MCV 93.5 (80-100) fL MCH 29.8 (25-34) pg MCHC 31.9 L (32-36) g/dL RDW Std Deviation 79.1 H (36.4-46.3) fL RDW Coeff of Kiana 22.8 H (11.5-14.5) % Plt Count 205 (130-400) K/uL MPV 9.0 (7.4-10.4) fL Immature Gran % (Auto) 0.4 % Neut % (Auto) 70.7 % Lymph % (Auto) 15.0 % D[place]key % (Auto) 13.3 % Eos % (Auto) 0.4 % Baso % (Auto) 0.2 % Immature Gran # (Auto) 0.02 (0.00-0.02) K/uL Neut # (Auto) 3.73 (1.4-6.5) K/uL Lymph # (Auto) 0.79 L (1.2-3.4) K/uL D[place]key # (Auto) 0.70 H (0.11-0.59) K/uL Eos # (Auto) 0.02 (0-0.5) K/uL Baso # (Auto) 0.01 (0-0.2) K/uL Polychromasia 1+ Poikilocytosis Present Sodium 139 (136-145) mmol/L Potassium 3.9 (3.5-5.1) mmol/L Chloride 106 (98-107) mmol/L Carbon Dioxide 32 (21-32) mmol/L Anion Gap 1.0 L (3-11) BUN 21 H (7-18) mg/dl Creatinine 0.93 (0.6-1.2) mg/dl Est Cr Clr Drug Dosing 36.6 ml/min Est GFR ( Amer) 70.2 Est GFR (Non-Af Amer) 60.5 BUN/Creatinine Ratio 23.1 H (10-20) Glucose 76 (70-99) mg/dl Calcium 8.3 L (8.5-10.1) mg/dl Iron 21 L (35-150) mcg/dl TIBC 163 L (250-450) mcg/dl Transferrin 133 L (200-360) mg/dl Transferrin % Sat 11 L (15-50) % Ferritin 122.6 (8-388) ng/ml Vitamin B12 495 (211-911) pg/ml Folate > 24.00 (>5.38) ng/ml Blood Type Antibody Screen Crossmatch 02/12/19 Range/Units 05:29 WBC (4.8-10.8) K/uL RBC (4.2-5.4) M/uL Hgb (12.0-16.0) g/dL Hct (37-47) % MCV (80-100) fL MCH (25-34) pg MCHC (32-36) g/dL RDW Std Deviation (36.4-46.3) fL RDW Coeff of Kiana (11.5-14.5) % Plt Count (130-400) K/uL MPV (7.4-10.4) fL Immature Gran % (Auto) % Neut % (Auto) % Lymph % (Auto) % [place]key % (Auto) % Eos % (Auto) % Baso % (Auto) % Immature Gran # (Auto) (0.00-0.02) K/uL Neut # (Auto) (1.4-6.5) K/uL Lymph # (Auto) (1.2-3.4) K/uL Dickey # (Auto) (0.11-0.59) K/uL Eos # (Auto) (0-0.5) K/uL Baso # (Auto) (0-0.2) K/uL Polychromasia Poikilocytosis Sodium (136-145) mmol/L Potassium (3.5-5.1) mmol/L Chloride (98-107) mmol/L Carbon Dioxide (21-32) mmol/L Anion Gap (3-11) BUN (7-18) mg/dl Creatinine (0.6-1.2) mg/dl Est Cr Clr Drug Dosing ml/min Est GFR ( Amer) Est GFR (Non-Af Amer) BUN/Creatinine Ratio (10-20) Glucose (70-99) mg/dl Calcium (8.5-10.1) mg/dl Iron (35-150) mcg/dl TIBC (250-450) mcg/dl Transferrin (200-360) mg/dl Transferrin % Sat (15-50) % Ferritin (8-388) ng/ml Vitamin B12 (211-911) pg/ml Folate (>5.38) ng/ml Blood Type O Positive Antibody Screen NEGATIVE Crossmatch See Detail (1) Abdominal pain Abdominal location: lower abdomen, unspecified Qualified Code(s): R10.30 - Lower abdominal pain, unspecified (2) Iron deficiency anemia Iron deficiency anemia type: unspecified iron deficiency Qualified Code(s): D50.9 - Iron deficiency anemia, unspecified (3) Atrial fibrillation Atrial fibrillation type: chronic Qualified Code(s): I48.2 - Chronic atrial fibrillation (4) Hypertension Hypertension type: essential hypertension Qualified Code(s): I10 - Essential (primary) hypertension (5) COPD (chronic obstructive pulmonary disease) COPD type: unspecified COPD Qualified Code(s): J44.9 - Chronic obstructive pulmonary disease, unspecified (6) CAD (coronary artery disease) Coronary Disease-Associated Artery/Lesion type: [place] artery [place] vs. transplanted heart: [place] heart Associated angina: without angina Qualified Code(s): I25.10 - Atherosclerotic heart disease of [place] coronary artery without angina pectoris
[2019-02-12] MEDS: ASPIRIN 81 MG ECTAB PO SCH (20:13)
[2019-02-12] MEDS: ATORVASTATIN 40 MG TAB PO SCH (20:14)
[2019-02-12] MEDS: EZETIMIBE 10 MG TABLET PO SCH (20:15)
[2019-02-12] MEDS: PRAMIPEXOLE DIHYDROCHLO 0.25 MG TAB PO SCH (20:15)
[2019-02-12] MEDS: SERTRALINE HCL 50 MG TABLET PO SCH (20:16)
[2019-02-13] MEDS: AMPICILLIN 1,000 MG in SODIUM CHLOR 0.9% AD-VAN 50 ML IV SCH ×3 (01:01→12:39)
[2019-02-13] MEDS: ALBUT/IPRATROP 3MG/0.5MG NEB 3 ML VIAL NEB SCH ×6 (03:43→23:21)
[2019-02-13 06:29] LABS: Hematocrit (blood only) 32.1 % (37-47); Hemoglobin 10.5 g/dL (12.0-16.0); Mean Corpuscular Hgb Conc 32.7 g/dL (32-36); Mean Corpuscular Volume 90.9 fL (80-100); Mean Platelet Volume 8.9 fL (7.4-10.4); Platelet Count 173 K/uL (130-400); RDW Coefficient of Variation 21.1 % (11.5-14.5); RDW Standard Deviation 68.8 fL (36.4-46.3); Red Blood Count 3.53 M/uL (4.2-5.4); White Blood Count 5.18 K/uL (4.8-10.8)
[2019-02-13 06:54] LABS: Anisocytosis Present; Echinocytes 1+; Eosinophils # (auto) 0.04 K/uL (0-0.5); Eosinophils % (auto) 0.8 %; Immature Granulocytes # (auto) 0.02 K/uL (0.00-0.02); Immature Granulocytes % (auto) 0.4 %; Lymphocytes # (auto) 1.01 K/uL (1.2-3.4); Lymphocytes % (auto) 19.5 %; Monocytes # (auto) 0.72 K/uL (0.11-0.59); Monocytes % (auto) 13.9 %; Neutrophils # (auto) 3.39 K/uL (1.4-6.5); Neutrophils % (auto) 65.4 %; Ovalocytes 1+; Polychromasia 1+
[2019-02-13 06:58] LABS: BUN Creatinine Ratio 17.5 (10-20); Calcium 8.1 mg/dl (8.5-10.1); Creatinine Clr Calc Pharmacy 35.3 ml/min; Est GFR (African American) 65.9; Est GFR (Non-African American) 56.8; Potassium 3.7 mmol/L (3.5-5.1)
[2019-02-13] MEDS: BUDESONIDE 0.5 MG/2 ML VIAL (PULMICORT) NEB SCH ×2 (07:29→19:31)
[2019-02-13] MEDS: ARFORMOTEROL TART 15MCG/2ML VIAL INH SCH ×2 (07:29→19:31)
[2019-02-13] MEDS: guaiFENesin 600 MG TABCR PO SCH ×2 (08:29→20:40)
[2019-02-13] MEDS: CARVEDILOL 25 MG TAB PO SCH ×2 (08:29→20:41)
[2019-02-13] MEDS: FUROSEMIDE 40 MG TAB PO SCH ×2 (08:29→15:57)
[2019-02-13] MEDS: POTASSIUM CHLORIDE 20 MEQ TABCR PO SCH (08:29)
[2019-02-13] MEDS: FERROUS SULFATE 325 MG TAB PO SCH (08:29)
[2019-02-13] MEDS: PANTOprazole 40 MG TAB PO SCH ×3 (08:29→20:41)
[2019-02-13] MEDS: LISINOPRIL 2.5 MG TAB PO SCH (08:29)
[2019-02-13] MEDS: CLOPIDOGREL BISULFATE 75 MG TAB PO SCH (08:29)
--- NOTE | 2019-02-13 11:16 | Fluoroscopy Report ---
DOUBLE CONTRAST UPPER GI SERIES CLINICAL HISTORY: Generalized abdominal pain. Nausea. COMPARISON STUDY: Abdominal CT dated 02/11/2019. TECHNIQUE: A standard air contrast upper GI series was performed. Spot images of the esophagus and s tomach were obtained in multiple obliquities both upright and prone. FINDINGS: The patient swallowed barium without difficulty. The esophagus is structurally normal without evidenc e of intrinsic or extrinsic mass. Mild distal esophageal dysmotility is observed. The esophageal muco rick pattern is normal. No gastroesophageal reflux was elicited by having the patient perform the Vals calhoun maneuver. The gastroesophageal junction distends normally. Pacemaker leads are noted. The stomach is normal in configuration and demonstrates normal distensibility. No mass or ulceration is identified. Gastric fold thickening suggests gastritis. The duodenal bulb and sweep are unremarkab le. Fluoroscopy time: 19 Fluoroscopic images: 2.4 minutes IMPRESSION: 1. Mild esophageal dysmotility. 2. Gastric fold thickening suggests gastritis. Clinical correlation will be required. Electronically signed by: Antonio Astorga M.D. 02/13/2019 11:15 AM
--- NOTE | 2019-02-13 14:39 | Progress Note ---
DATE: 02/13/2019 The patient received 2 units of blood and her hemoglobin went from 7.3-10.5 and she feels better than she has in a long time. She has eaten lunch today and has no abdominal pain or nausea. Her upper GI performed earlier today, showed no duodenal ulcer or gastric ulcer. She had a little bit of thickening in her gastric folds of unclear significance. She has not moved her bowels since being in the hospital and there are no signs of overt blood loss. IMPRESSION: The patient was having abdominal pain, nausea, vomiting, and weight loss. I think this was a combination of severe celiac stenosis and anemia causing relative mesenteric angina, now that her blood count has been replaced with transfusion and her symptoms have improved. There are no signs of an active ulcer and I do not think further testing is warranted at this point, I think it is important to do to keep her blood count up at least 10 or above and she may benefit from an infusion of iron to help get her blood count up higher and stay there. This could be arranged either before she leaves the hospital or as an outpatient. I will leave that up to the hospitalist, but at this point, I do not have any further suggestions, will sign off at this point.
--- NOTE | 2019-02-13 17:03 | Hospitalist Progress Note ---
Date of Service February 13, 2019 Assessment & Plan (1) Abdominal pain: Patient admitted on Feb 11 2018 with ischemic bowel disease with dull, crampy post-prandial abdominal pain and nausea ongoing for at least several months with significant weight loss. History of CAD, carotid stenosis s/p endarterectomy, CKD. Extensive atherosclerotic plaques noted on non-contrast abdominal CT from ER. Concern for chronic mesenteric ischemia / intestinal angina. CT angiogram of the abdomen pelvis obtained and does show 90% stenosis of the celiac axis and stents in the SMA and KYLEE Vascular surgery consulted and recommend not performing any intervention at this time as she is high risk with comorbidities Radiology call me above new left kidney infarction with small wedge shaped perfusion defects identified within the lower poles of both kidneys I called to vascular surgeon, he reported that in this clinical scenario usually "will not do anything", I have asked him to put a formal note for the documentation. Does have pancreas divisum noted on her CT. No evidence of pancreatitis, lipase has always been normal. GI on shawna case , has iron deficiency anemia as below and is on aspirin and Plavix-she has never had an EGD to her knowledge After receiving 2 units of packed red blood cells , reported feeling the best that she has in over a month, no more nausea or abdominal pain. Perhaps her pain was from abdominal angina and is improved with transfusion, which is seems agreed by GI Consulted GI, felt too high risk for EGD at this time and is on Protonix, no signs of an active ulcer, do not think further testing is warranted at this point, GI mentioned to keep blood count up at least 10 or above, may benefit from an infusion of iron to help get her blood count up higher and stay there. first iron infusion ordered 100mg iv Continue CAD home medications, ASA, Atorvastatin, Plavix, Carvedilol, Zetia Continue Tramadol as needed, Compazine as needed, Zofran as needed, and will discontinue scheduled Reglan (2) Cachexia: Patient cachectic/sarcopenic. Albumin=2.6. Reports poor appetite and decreased PO intake, along with weight loss She has lost at least 5-6 kg in the last month alone Consult Nutrition services for supplements PT/OT evaluation for complaint of weakness (3) Iron deficiency anemia: Patient with normochromic/normocytic anemia, hgb has now dropped to 7.3. No gross bleeding Required blood transfusion on admission in 12/2018 and was iron deficient on labs prior to that With nausea, weight loss, abdominal pain, and on ASA/Plavix, a consult to GI to see about EGD this admission was performed and too high risk for that at this time as above Transfused 2 units of PRBCs on 02/12 with significant improvement in symptoms as above -previous colonoscopy in 2012 with diverticulosis only - iron studies here consistent with iron deficiency anemia Hemoccult stool pending, B12 and folate are normal -Continue PO iron supplement 325 mill grams once daily -Continue to monitor CBC -Continue to transfuse as needed (4) Chronic kidney disease, stage 3a: and new renal infarction, talked pt about this, will f/u renal function, BUN and Cr near baseline 0.9, electrolytes WNL, Avoid nephrotoxic agents, Renal dosing where appropriate (5) Atrial fibrillation: Patient V-paced. Not presently on anticoagulation due to history of severe anemia, Continue to monitor (6) Dyslipidemia: Chronic, Continue Zetia and Atorvastatin (7) Hypertension: Blood pressure stable, Continue Carvedilol, Lisinopril, Lasix (8) COPD (chronic obstructive pulmonary disease): Chronic. Patient reports stable SOB. No cough, sputum or wheeze, Continue home agents - Albuterol/Ipratropium, Albuterol PRN, Arfomoterol, Budesonide (9) CAD (coronary artery disease): stable, with hx of ICM, chronic systolic CHF. Appear well compensated at present. Mildly elevated troponin at 0.089 which appears to be chronic Continue ASA, Plavix, Carvedilol, Lisinopril, Atorvastatin and Zetia Continue to monitor (10) Chronic systolic (congestive) heart failure: Patient appears [place]. [place] [address] - chronically elevated LVEF on last echo is 25-30% and is an ischemic cardiomyopathy Continue Carvedilol, Lasix, Lisinopril Continue to monitor Gave extra Lasix with blood transfusion today Follow I's and O's, daily weights (11) Anxiety: Stable, Continue Sertraline, Ativan (12) Restless leg syndrome: Chronic, Continue Mirapex (13) UTI (urinary tract infection) due to Enterococcus: Growing Enterococcus faecalis in the urine culture with grossly abnormal UA Given abdominal pain, treating with antibiotics change ampicillin 1 g IV every 6 hours to po Amoxil for total 7 days 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 as above No intervention, nate garza (15) Renal artery stenosis: Noted to be moderate and has 4 right renal arteries all with stenosis, with renal infarction, see above Renal function stable (16) Iliac artery aneurysm: Noted on CT angiogram, 2 cm Seen by vascular surgery (17) DVT prophylaxis: Hold heparin SQ for now given severe anemia and possibility of GI bleeding Disposition-remain on medical floor Results & Data Vital Signs (Past 12 Hours) Vital Signs Temp Pulse Resp BP Pulse Ox 02/13/19 16:02 36.5 C 64 20 101/61 93 02/13/19 15:26 61 20 96 02/13/19 11:05 63 16 95 02/13/19 07:48 36.8 C 64 20 112/66 97 02/13/19 07:32 60 16 96 Laboratory Results - last 24 hr 02/12/19 02/13/19 02/13/19 05:29 06:04 06:04 WBC 5.18 RBC 3.53 L Hgb 10.5 L D Hct 32.1 L MCV 90.9 MCH 29.7 MCHC 32.7 RDW Std Deviation 68.8 H RDW Coeff of Kiana 21.1 H Plt Count 173 MPV 8.9 Immature Gran % (Auto) 0.4 Neut % (Auto) 65.4 Lymph % (Auto) 19.5 King % (Auto) 13.9 Eos % (Auto) 0.8 Baso % (Auto) 0.0 Immature Gran # (Auto) 0.02 Neut # (Auto) 3.39 Lymph # (Auto) 1.01 L King # (Auto) 0.72 H Eos # (Auto) 0.04 Baso # (Auto) 0.00 Polychromasia 1+ Anisocytosis Present Ovalocytes 1+ Echinocytes 1+ Sodium 139 Potassium 3.7 Chloride 106 Carbon Dioxide 30 Anion Gap 3.0 BUN 17 Creatinine 0.98 Est Cr Clr Drug Dosing 35.3 Est GFR ( Amer) 65.9 Est GFR (Non-Af Amer) 56.8 BUN/Creatinine Ratio 17.5 Glucose 74 Calcium 8.1 L Crossmatch See Detail Microbiology 02/10/19 18:55 Urine,Indwelling Cath Urine Culture - Final Enterococcus faecalis (1) Abdominal pain Abdominal location: lower abdomen, unspecified Qualified Code(s): R10.30 - Lower abdominal pain, unspecified (2) Iron deficiency anemia Iron deficiency anemia type: unspecified iron deficiency Qualified Code(s): D50.9 - Iron deficiency anemia, unspecified (3) Atrial fibrillation Atrial fibrillation type: chronic Qualified Code(s): I48.2 - Chronic atrial fibrillation (4) Hypertension Hypertension type: essential hypertension Qualified Code(s): I10 - Essential (primary) hypertension (5) COPD (chronic obstructive pulmonary disease) COPD type: unspecified COPD Qualified Code(s): J44.9 - Chronic obstructive pulmonary disease, unspecified (6) CAD (coronary artery disease) Coronary Disease-Associated Artery/Lesion type: [place] artery [place] vs. transplanted heart: [place] heart Associated angina: without angina Qualified Code(s): I25.10 - Atherosclerotic heart disease of [place] coronary artery without angina pectoris
[2019-02-13] MEDS ORDERED: IRON DEXTRAN COMPLEX 25 MG in SYRINGE 0 ML IV ONE (17:30)
[2019-02-13] MEDS ORDERED: IRON DEXTRAN COMPLEX 75 MG in SYRINGE 0 ML IV ONE (18:30)
[2019-02-13] MEDS: LORazepam 0.5 MG TAB PO PRN (18:35)
[2019-02-13] MEDS: AMOXICILLIN 250 MG CAP PO SCH (20:40)
[2019-02-13] MEDS: PRAMIPEXOLE DIHYDROCHLO 0.25 MG TAB PO SCH (20:43)
[2019-02-13] MEDS: SERTRALINE HCL 50 MG TABLET PO SCH (20:43)
[2019-02-13] MEDS: ATORVASTATIN 40 MG TAB PO SCH (20:43)
[2019-02-13] MEDS: ASPIRIN 81 MG ECTAB PO SCH (20:43)
[2019-02-13] MEDS: EZETIMIBE 10 MG TABLET PO SCH (20:44)
[2019-02-14] MEDS: ALBUT/IPRATROP 3MG/0.5MG NEB 3 ML VIAL NEB SCH ×6 (03:44→23:20)
[2019-02-14 05:51] LABS: Hematocrit (blood only) 31.5 % (37-47); Hemoglobin 10.4 g/dL (12.0-16.0); Platelet Count 189 K/uL (130-400); RDW Coefficient of Variation 20.3 % (11.5-14.5); RDW Standard Deviation 66.3 fL (36.4-46.3); White Blood Count 5.39 K/uL (4.8-10.8)
[2019-02-14 06:19] LABS: Creatinine Clr Calc Pharmacy 36.4 ml/min; Est GFR (African American) 68.4
[2019-02-14] MEDS: BUDESONIDE 0.5 MG/2 ML VIAL (PULMICORT) NEB SCH ×2 (07:23→19:21)
[2019-02-14] MEDS: ARFORMOTEROL TART 15MCG/2ML VIAL INH SCH ×2 (07:23→19:21)
[2019-02-14] MEDS: PANTOprazole 40 MG TAB PO SCH ×3 (08:35→20:38)
[2019-02-14] MEDS: guaiFENesin 600 MG TABCR PO SCH ×2 (08:35→20:37)
[2019-02-14] MEDS: LISINOPRIL 2.5 MG TAB PO SCH (08:36)
[2019-02-14] MEDS: CARVEDILOL 25 MG TAB PO SCH ×2 (08:36→20:37)
[2019-02-14] MEDS: POTASSIUM CHLORIDE 20 MEQ TABCR PO SCH (08:36)
[2019-02-14] MEDS: FERROUS SULFATE 325 MG TAB PO SCH (08:36)
[2019-02-14] MEDS: CLOPIDOGREL BISULFATE 75 MG TAB PO SCH (08:37)
[2019-02-14] MEDS: AMOXICILLIN 250 MG CAP PO SCH ×3 (08:37→20:37)
[2019-02-14] MEDS: FUROSEMIDE 40 MG TAB PO SCH ×2 (08:46→17:16)
--- NOTE | 2019-02-14 17:09 | Hospitalist Progress Note ---
Date of Service February 14, 2019 Assessment & Plan (1) Abdominal pain: Patient admitted on Feb 11 2018 with ischemic bowel disease with dull, crampy post-prandial abdominal pain and nausea ongoing for at least several months with significant weight loss. History of CAD, carotid stenosis s/p endarterectomy, CKD. Extensive atherosclerotic plaques noted on non-contrast abdominal CT from ER. Concern for chronic mesenteric ischemia / intestinal angina. CT angiogram of the abdomen pelvis obtained and does show 90% stenosis of the celiac axis and stents in the SMA and KYLEE Vascular surgery consulted and recommend not performing any intervention at this time as she is high risk with comorbidities Radiology call me about new left kidney infarction with small wedge shaped perfusion defects identified within the lower poles of both kidneys On February 13, 2019, I called to vascular surgeon, he reported that in this clinical scenario usually "will not do anything", I have asked him to put a formal note for the documentation. Does have pancreas divisum noted on her CT. No evidence of pancreatitis, lipase has always been normal. GI on the case , has iron deficiency anemia as below, and is on aspirin and Plavix-she has never had an EGD to her knowledge After receiving 2 units of packed red blood cells , reported feeling the best that she has in over a month, no more nausea or abdominal pain. Perhaps her pain was from abdominal angina and is improved with transfusion, which is seems agreed by GI Consulted GI, felt too high risk for EGD at this time and is on Protonix, no signs of an active ulcer, do not think further testing is warranted at this point, GI mentioned to keep blood count up at least 10 or above, may benefit from an infusion of iron to help get her blood count up higher and stay there. first iron infusion ordered 100mg iv on February After transfusion patient hemoglobin level has been stable today's 10.4 from yesterday was 10.3, discussed with patient's daughter about the conditions, she concerns about patient required frequent transfusion, there must have somewhere lost of blood, I agreed, I reviewed the testing results with her, which include vitamin B12, folate acid were within normal limits, patient has Hemoccult negative x2 in recent 4 months, possible because of iron deficiency anemia, probably need to have the iron infusion which has given the first dose already, after discussion we both feel more comfortable to have hematology involved, therefore I had requested "hematology consultation, there reason for the consultation is: anemia and required frequent blood transfusion Continue CAD home medications, ASA, Atorvastatin, Plavix, Carvedilol, Zetia Continue Tramadol as needed, Compazine as needed, Zofran as needed, and will discontinue scheduled Reglan (2) Cachexia: Patient cachectic/sarcopenic. Albumin=2.6. Reports poor appetite and decreased PO intake, along with weight loss She has lost at least 5-6 kg in the last month alone Consult Nutrition services for supplements PT/OT evaluation for complaint of weakness (3) Iron deficiency anemia: Patient with normochromic/normocytic anemia, hgb has now dropped to 7.3. No gross bleeding Required blood transfusion on admission in 12/2018 and was iron deficient on labs prior to that also see above, hem consult Continue PO iron supplement 325 mill grams once daily -Continue to monitor CBC -Continue to transfuse as needed (4) Chronic kidney disease, stage 3a: and new renal infarction, talked pt about this, will f/u renal function, BUN and Cr near baseline 0.9, electrolytes WNL, Avoid nephrotoxic agents, Renal dosing where appropriate (5) Atrial fibrillation: Patient V-paced. Not presently on anticoagulation due to history of severe anemia, Continue to monitor (6) Dyslipidemia: Chronic, Continue Zetia and Atorvastatin (7) Hypertension: Blood pressure stable, Continue Carvedilol, Lisinopril, Lasix (8) COPD (chronic obstructive pulmonary disease): Chronic. Patient reports stable SOB. No cough, sputum or wheeze, Continue home agents - Albuterol/Ipratropium, Albuterol PRN, Arfomoterol, Budes onide (9) CAD (coronary artery disease): stable, with hx of ICM, chronic systolic CHF. Appear well compensated at present. Mildly elevated troponin at 0.089 which appears to be chronic Continue ASA, Plavix, Carvedilol, Lisinopril, Atorvastatin and Zetia Continue to monitor (10) Chronic systolic (congestive) heart failure: Patient appears [place]. [place] [address] - chronically elevated LVEF on last echo is 25-30% and is an ischemic cardiomyopathy Continue Carvedilol, Lasix, Lisinopril Continue to monitor Gave extra Lasix with blood transfusion today Follow I's and O's, daily weights (11) Anxiety: Stable, Continue Sertraline, Ativan (12) Restless leg syndrome: Chronic, Continue Mirapex (13) UTI (urinary tract infection) due to Enterococcus: Growing Enterococcus faecalis in the urine culture with grossly abnormal UA Given abdominal pain, treating with antibiotics changed ampicillin 1 g IV every 6 hours to po Amoxil for total 7 days 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 as above No intervention, seebrianda garza (15) Renal artery stenosis: Noted to be moderate and has 4 right renal arteries all with stenosis, with renal infarction, see above Renal function stable (16) Iliac artery aneurysm: Noted on CT angiogram, 2 cm Seen by vascular surgery (17) DVT prophylaxis: Hold heparin SQ for now given severe anemia and possibility of GI bleeding Disposition: Patient will be discharged home after seen by hematology tomorrow Subjective Report appetite is a little bit better , Has been sitting in the chair, No more abdominal pain after eating, however feels generalized weakness, Reports dry cough, no sputum Review of Systems Review of Systems: All systems reviewed & are unremarkable except as noted in HPI & below Physical Exam Physical Exam: General: Frail, and chronically ill looking, no distress, mild pale Eyes: normal inspection, PERLL Respiratory: Bilateral lower lungs occasional crackles, chest non tender, no respiratory distress, no accessory muscle use Cardiac: regular rate and rhythm, no rub or gallop, mild soft murmur, no edema, no jvd GI/: active bowel sounds, no abd pain or tenderness, soft, non distended Extremities: normal range of motion, normal strength, non tender Neuro/Psych: alert and oriented x 3, normal mood and affect Skin: normal color, dry Results & Data Vital Signs (Past 12 Hours) Vital Signs Temp Pulse Resp BP Pulse Ox 02/14/19 15:24 71 18 93 02/14/19 15:04 36.8 C 60 20 101/63 91 02/14/19 11:03 59 L 18 92 02/14/19 07:41 36.4 C L 60 20 107/45 L 94 02/14/19 07:26 60 18 97 Laboratory Results - last 24 hr 02/14/19 02/14/19 05:11 05:11 WBC 5.39 RBC 3.50 L Hgb 10.4 L Hct 31.5 L MCV 90.0 MCH 29.7 MCHC 33.0 RDW Std Deviation 66.3 H RDW Coeff of Kiana 20.3 H Plt Count 189 MPV 9.0 Creatinine 0.95 Est Cr Clr Drug Dosing 36.4 Est GFR ( Amer) 68.4 Est GFR (Non-Af Amer) 59.0 (1) Abdominal pain Abdominal location: lower abdomen, unspecified Qualified Code(s): R10.30 - Lower abdominal pain, unspecified (2) Iron deficiency anemia Iron deficiency anemia type: unspecified iron deficiency Qualified Code(s): D50.9 - Iron deficiency anemia, unspecified (3) Atrial fibrillation Atrial fibrillation type: chronic Qualified Code(s): I48.2 - Chronic atrial fibrillation (4) Hypertension Hypertension type: essential hypertension Qualified Code(s): I10 - Essential (primary) hypertension (5) COPD (chronic obstructive pulmonary disease) COPD type: unspecified COPD Qualified Code(s): J44.9 - Chronic obstructive pulmonary disease, unspecified (6) CAD (coronary artery disease) Coronary Disease-Associated Artery/Lesion type: [place] artery [place] vs. transplanted heart: [place] heart Associated angina: without angina Qualified Code(s): I25.10 - Atherosclerotic heart disease of [place] coronary artery without angina pectoris
[2019-02-14] MEDS: ATORVASTATIN 40 MG TAB PO SCH (20:37)
[2019-02-14] MEDS: LORazepam 0.5 MG TAB PO PRN (20:37)
[2019-02-14] MEDS: PRAMIPEXOLE DIHYDROCHLO 0.25 MG TAB PO SCH (20:37)
[2019-02-14] MEDS: SERTRALINE HCL 50 MG TABLET PO SCH (20:37)
[2019-02-14] MEDS: EZETIMIBE 10 MG TABLET PO SCH (20:37)
[2019-02-14] MEDS: ASPIRIN 81 MG ECTAB PO SCH (20:38)
[2019-02-15] MEDS: ALBUT/IPRATROP 3MG/0.5MG NEB 3 ML VIAL NEB SCH ×4 (03:31→14:24)
[2019-02-15] MEDS: ARFORMOTEROL TART 15MCG/2ML VIAL INH SCH (07:42)
[2019-02-15] MEDS: BUDESONIDE 0.5 MG/2 ML VIAL (PULMICORT) NEB SCH (07:42)
[2019-02-15] MEDS: FUROSEMIDE 40 MG TAB PO SCH (07:58)
[2019-02-15] MEDS: PANTOprazole 40 MG TAB PO SCH ×3 (07:58→11:29)
[2019-02-15] MEDS: CLOPIDOGREL BISULFATE 75 MG TAB PO SCH (07:59)
[2019-02-15] MEDS: FERROUS SULFATE 325 MG TAB PO SCH (07:59)
[2019-02-15] MEDS: guaiFENesin 600 MG TABCR PO SCH (07:59)
[2019-02-15] MEDS: POTASSIUM CHLORIDE 20 MEQ TABCR PO SCH (07:59)
[2019-02-15] MEDS: LISINOPRIL 2.5 MG TAB PO SCH (08:00)
[2019-02-15] MEDS: AMOXICILLIN 250 MG CAP PO SCH ×2 (08:00→14:30)
[2019-02-15] MEDS: CARVEDILOL 25 MG TAB PO SCH (08:00)
[2019-02-15] MEDS ORDERED: IRON SUCROSE 300 MG in SODIUM CHLORIDE 0.9% 250 ML IV SCH (14:30)
--- NOTE | 2019-02-15 18:06 | Discharge Summary ---
Date of Service February 15, 2019 Admission HPI Per Admitting Provider Bisi Jameson is a 73yo C female with multiple medical comorbidities to include CAD, ischemic cardiomyopathy, CKD, CHF, AF presenting with abdominal pain. Patient reports dull, cramping abdominal pain in the lower abdomen that occurs approximately 30-60 minutes after eating which has been ongoing for a few weeks. Pain is described as moderate in severity, lasts a few hours then resolves spontaneously. She reports that she has constant nausea. Poor appetite and decreased PO intake as well as weakness and gait instability. She denies vomiting, diarrhea, fevers, chills, melena/hematochezia. She reports chronic stable shortness of breath. She was recently at [facility] and was treated for colitis with antibiotics x 14 days. She was discharged home 1-2 weeks ago. No additional complaints at this time. Principal Diagnosis Abdominal pain - Likely chronic mesenteric ischemia Discharge Exam Constitutional + thin; no acute distress Eyes PERRL, conjunctivae normal, anicteric sclerae ENMT external ear and nose normal, oropharynx normal Neck trachea midline, no thyromegaly Respiratory normal respiratory effort (Nasal cannula in place) Auscultation: + diminished lung sounds (Throughout); no crackles and no wheezes Cardiovascular RRR, no murmur, no edema Gastrointestinal (Abdomen) Inspection/Auscultation: normal bowel sounds; + abdomen abnormal to inspection (Midline incisional scar) Percussion/Palpation: abdomen soft; abdomen nontender, no splenomegaly, no hernia and no abdominal mass Musculoskeletal Extremities: extremities normal to inspection; no cyanosis and no clubbing Skin + ecchymosis (Multiple small areas of ecchymosis on the legs and arms) Neurologic moves all extremities and awake; no focal motor deficits Psychiatric A+Ox3, euthymic affect Discharge Data Allergies Allergy/AdvReac Type Severity Reaction Status Date / Time Sulfa (Sulfonamide Allergy Intermediate RASH Verified 02/10/19 19:20 Antibiotics) morphine AdvReac Mild GI SYMPTOMS Verified 02/10/19 19:20 Consultations 02/10/19 20:48 ED Decision to Admit Stat 02/11/19 12:21 Consult Vascular Surgery Routine 02/11/19 18:08 Consult Gastroenterology Routine 02/14/19 16:55 Consult Hematology Routine Ordered Studies 02/10/19 18:36 CT abd pelvis IV con only Stat CT head/brain wo con Stat 02/11/19 00:01 CT angio abdomen pelvis w con Routine 02/13/19 10:00 FL upper GI with air RTN Routine Hospital Course (1) Abdominal pain: Patient admitted on Feb 11 2018 with ischemic bowel disease with dull, crampy post-prandial abdominal pain and nausea ongoing for at least several months with significant weight loss. CT angiogram of the abdomen pelvis obtained and showed 90% stenosis of the celiac axis and stents in the SMA and KYLEE. - Vascular surgery consulted and recommend not performing any intervention at this time as she is high risk with comorbidities. - She was given 2 units of PRBCs for anemia with rebound to ~10 the rest of the admission. Her abdominal pain improved after this. - Possibly demand ischemia. - Received IV iron day prior to discharge and day of discharge. Discussed with hematology (Dr. Patel) who will continue outpatient IV iron therapy. - Could benefit from capsule endoscopy. (2) Cachexia: Patient cachectic. Albumin=2.6. Reports poor appetite and decreased PO intake, along with weight loss. She has lost at least 5-6 kg in the last month alone. (3) Iron deficiency anemia: Patient with normochromic/normocytic anemia, hgb dropped to 7.3 during admission. No gross bleeding. - Required blood transfusion on admission in 12/2018 and was iron deficient on labs prior to that. - Received IV iron while inpatient; will likely need further IV iron treatments with oncology. (4) Chronic kidney disease, stage 3a: BUN and Cr near baseline 0.9, electrolytes WNL, Avoid nephrotoxic agents, Renal dosing where appropriate. - Small, bilateral lower pole kidney infarcts noted on a CTA a/p that was originally done on 02/11, but were not noted until 02/13. - Vascular surgery was made aware and felt no surgical indication. - On larger infarcts, UpToDate indicates possible anticoagulation as a treatment; however, given her continued anemia and concern for GI bleeding; this is clearly contraindicated. - Kidney function remained stable with Cr ~0.95 - Patient was pain-free on discharge. Continued DAPT on discharge. (5) Atrial fibrillation: Patient V-paced. Not presently on anticoagulation due to history of severe anemia, Continue to monitor (6) Dyslipidemia: Chronic, Continued Zetia and Atorvastatin (7) Hypertension: Blood pressure stable, Continued Carvedilol, Lisinopril, Lasix (8) COPD (chronic obstructive pulmonary disease): Chronic. Patient reports stable SOB. No cough, sputum or wheeze, Continue home agents - Albuterol/Ipratropium, Albuterol PRN, Arfomoterol, Budesonide (9) CAD (coronary artery disease): Stable, with hx of ICM, chronic systolic CHF. Appear well compensated at present. Mildly elevated troponin at 0.089 which appears to be chronic. - Continued ASA, Plavix, Carvedilol, Lisinopril, Atorvastatin and Zetia (10) Chronic systolic (congestive) heart failure: [place] appears [place]. [place] [address] - chronically elevated LVEF on last echo is 25-30% and is an ischemic cardiomyopathy Continue Carvedilol, Lasix, Lisinopril Continue to monitor Gave extra Lasix with blood transfusions. Follow I's and O's, daily weights (11) Anxiety: Stable, Continue Sertraline, Ativan (12) Restless leg syndrome: Chronic, Continue Mirapex (13) UTI (urinary tract infection) due to Enterococcus: Growing Enterococcus faecalis in the urine culture with grossly abnormal UA. Given abdominal pain, treated with antibiotics. Got 3 days of ampicillin. 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 as above No intervention, see above (15) Renal artery stenosis: Noted to be moderate and has 4 right renal arteries all with stenosis, with renal infarction, see above Renal function stable (16) Iliac artery aneurysm: Noted on CT angiogram, 2 cm Seen by vascular surgery (17) DVT prophylaxis: Hold heparin SQ for now given severe anemia and possibility of GI bleeding Total Time Total Time Spent Total Time Spent (In Minutes): 35 Total Time Includes: Examination of the Patient, Discharge Planning and Medication Reconciliation Discharge Plan Discharge Items Patient Disposition: Home - Home Health Services Reason For Visit: ABDOMINAL PAIN Discharge Diagnosis: Abdominal pain; possible chronic mesenteric ischemia Discharge Goals: Decrease discomfort, Diagnostic testing and Prevent disease Activity: Resume your previous activity Non-emergency contact: Primary Care Provider and Surgeon Call non-emergency contact if: you have any medication questions, your symptoms worsen, your pain is not controlled and your temperature is above 100.5 Follow-up/Referrals: Bandar Patel DO [Physician] - (Please see Dr. Patel for continuation of your IV iron.) Jorge Erwin [Physician] - (Please see Dr. Erwin for follow up of your stomach issues.) Christine Redding at [facility] [Primary Care Provider] - Diet: Heart Healthy Add Provider Instructions: Ms. Jameson, Juan were admitted to the hospital with abdominal pain. We did testing that showed the blood supply to the stomach and intestines is flowing, but does have some narrowing in the blood vessels which may explain some of the abdominal pain after eating. We had our vascular team see you (Dr. Randhawa) who did not feel that surgery was needed. You can also follow up with Dr. Montenegro who is your vacular surgeon at [facility]. We had the GI doctors see you who felt that you might have some bleeding in the stomach. We did a scan to check, but did not see clear signs of bleeding. Your iron levels are low, so we did give you some iron through the IV. We will have you follow up with Dr. Patel to continue getting IV iron. We will also have you see Dr. Erwin to consider any capsule camera testing that might show bleeding elsewhere in the GI tract. Prescriptions: Continued acetaminophen [Tylenol Extra Strength] 500 mg Tablet 500 mg PO Q6H PRN (Reason: Pain) RF: 0 Brovana 15 mcg/2 mL Solution For Nebulization 15 mcg Inhalation BIDR Qty: 120 RF: 3 ipratropium-albuterol 0.5 mg-3 mg(2.5 mg base)/3 mL Solution For Nebulization 3 ml NEB Q4R Qty: 180 RF: 3 pantoprazole 40 mg Tablet,Delayed Release (Dr/Ec) 40 mg PO BID Qty: 60 RF: 2 guaifenesin [Mucinex] 600 mg Tablet Extended Release 12hr 600 mg PO Q12 Qty: 1 RF: 0 budesonide 0.5 mg/2 mL Suspension For Nebulization 0.5 mg NEB BIDR Qty: 1 RF: 0 furosemide [Lasix] 40 mg Tablet 40 mg PO BID Qty: 0 RF: 0 lorazepam 0.5 mg tablet 0.5 mg PO Q8H PRN (Reason: anxiety) Qty: 3 RF: 0 atorvastatin 80 mg Tablet 80 mg PO HS RF: 0 albuterol sulfate 2.5 mg /3 mL (0.083 %) Solution For Nebulization 2.5 mg INHALATION Q4 PRN (Reason: Shortness Of Breath Or Wheezing) RF: 0 clopidogrel 75 mg Tablet 75 mg PO QAM RF: 0 aspirin [Aspir-81] 81 mg Tablet,Delayed Release (Dr/Ec) 81 mg PO HS RF: 0 potassium chloride 20 mEq Tablet,Er Particles/Crystals 20 meq PO QAM RF: 0 pramipexole 0.25 mg Tablet 0.25 mg PO HS RF: 0 fluticasone propionate 50 mcg/actuation [place],Suspension 2 spray INTRANASAL QAM PRN (Reason: Congestion) RF: 0 sertraline 50 mg Tablet 50 mg PO HS RF: 0 ezetimibe 10 mg Tablet 10 mg PO HS RF: 0 sodium chloride [[place] Nasal] 0.65 % Aerosol,[place] 1 spray INTRANASAL DIRECTED PRN (Reason: Nasal Congestion) RF: 0 ondansetron HCl [Zofran] 4 mg tablet 4 mg PO Q6H PRN (Reason: nausea and vomiting) Qty: 10 RF: 0 tramadol 50 mg Tablet 50 mg PO Q8H PRN (Reason: Abdominal Pain) RF: 0 lisinopril 2.5 mg Tablet 2.5 mg PO DAILY RF: 0 carvedilol 25 mg Tablet 25 mg PO BID RF: 0 dicyclomine 10 mg capsule 10 mg PO QID PRN (Reason: abdominal discomfort) Qty: 20 RF: 0 prochlorperazine maleate [Compazine] 10 mg tablet 10 mg PO Q6H PRN (Reason: nausea and vomiting) Qty: 20 RF: 0 metoclopramide HCl 5 mg Tablet 5 mg PO AC RF: 0 Discontinued ferrous sulfate 325 mg (65 mg iron) Tablet,Delayed Release (Dr/Ec) 325 mg PO QAM Qty: 60 RF: 0 Stand-Alone Forms: [facility] Discharge Orders: Discharge Order (Routine); Ordered 02/15/19 Ordered By: Carlos Taveras Admission Data Admit Date/Time: 02/11/19 18:39 Attending Provider: Carlos Taveras Admit Provider: Briseyda Kumar Primary Care Provider: Christine [facility]ding [facility] Other Providers: Briseyda Kumar ; David Randhawa ; Jorge Erwin ; Violette Barahona ; Bandar Patel V Service: Medical Other Interventions: Discharge Summary Assessment (RN) Last Done: 02/15/19 13:14 DC Date/Time DO NOT enter until pt leaves facility: 02/15/19 17:02
--- NOTE | 2019-02-15 19:53 | Consultation Report ---
DATE OF CONSULTATION: 02/15/2019 HEMATOLOGY CONSULTATION REASON FOR CONSULTATION: Anemia of unclear etiology. HISTORY OF PRESENT ILLNESS: Bisi Jameson is a 73-year-old very pleasant female admitted to [facility] on 02/11/2019 with subacute-onset abdominal pain. She had previously reported constant nausea with associated poor appetite as well as generalized weakness. She denied any fevers, chills or sweats. She had recently completed a regimen of antibiotics for undisclosed colitis. I have been asked to see Bisi because of persistent anemia. According to Bisi, she has had issues with refractory anemia for the past 6 months or so. She reports no visible gastrointestinal or genitourinary bleeding and did recently undergo an EGD and about 6 months prior underwent a colonoscopy. She has required intermittent transfusional support and supplemental IV iron. Bisi has never been seen by hematology in the past. Clearly on current admission, Bisi is indeed iron deficient and should be considered for replacement therapy. PAST MEDICAL HISTORY: Pretty extensive including [id number] respiratory failure, chronic kidney disease, iron-deficiency anemia, chronic systolic heart failure, coronary artery disease, atrial fibrillation, ischemic cardiomyopathy, dyslipidemia, hypertension, anxiety, COPD, emphysema, AICD malfunction, lower lobe pneumonia by history, subarachnoid hemorrhage. PAST SURGICAL HISTORY: Includes carotid endarterectomy, carpal tunnel release, hysterectomy and AICD insertion. MEDICATIONS: Prior to admission include albuterol 2.5 mg nebulized q.4 hours p.r.n., 81 mg of aspirin, atorvastatin 80 mg p.o. daily, clopidogrel 75 mg p.o. q.a.m., ezetimibe 10 mg p.o. daily, Flonase 2 sprays intranasally q.a.m. p.r.n., potassium chloride 20 mEq p.o. daily, pramipexole 0.25 mg p.o. at bedtime, sertraline 50 mg p.o. at bedtime, Zofran 4 mg p.o. q.6 hours p.r.n., extra strength Tylenol 500 mg p.o. q.6 hours p.r.n., Brovana 15 mcg inhaled b.i.d., ipratropium/albuterol 3 mL nebulized q.4 hours, Protonix 40 mg p.o. b.i.d., ferrous sulfate 325 mg p.o. q.a.m., budesonide 0.5 mg nebulized b.i.d., Lasix 40 mg p.o. b.i.d., Mucinex 600 mg p.o. q.12 hours, lorazepam 0.5 mg p.o. q.8 hours p.r.n., carvedilol 25 mg p.o. b.i.d., dicyclomine 10 mg p.o. q.i.d. p.r.n., lisinopril 2.5 mg p.o. daily, Compazine 10 mg p.o. q.6 hours p.r.n., tramadol 50 mg p.o. q.8 hours p.r.n. and metoclopramide 5 mg p.o. a.c. ALLERGIES: MORPHINE. SOCIAL HISTORY: The patient is retired, and lives with her . Negative for cigarettes, alcohol or illicit drugs. FAMILY HISTORY: Mostly heart problems. Both parents of various forms of heart disease. REVIEW OF SYSTEMS: As per HPI most notably for nonspecific abdominal pain, generalized weakness, poor p.o. intake. CONSTITUTIONAL: Negative for fevers, chills or sweats. She admits to losing weight, but cannot quantitate exact amount. SKIN: No rashes or lesions. No history of dermatoses. HEENT: Negative for headaches, lightheadedness or dizziness at present. Negative for acute hearing or visual deficits. No sinus symptoms, sore throat or dysphagia. LYMPHATICS: No history of lymphoproliferative disease. CARDIAC: She has an extensive cardiac history as documented in the past medical history. No current angina or palpitations. PULMONARY: She has an extensive pulmonary history as well including COPD. She is not acutely short of breath, dyspneic or orthopneic. GASTROINTESTINAL: Positive for abdominal pain. Negative for ongoing diarrhea or constipation. No hematochezia or melena stools. GENITOURINARY: She denies hematuria, dysuria, urinary incontinence. MUSCULOSKELETAL: Generally weak. No history of arthritis, no arthralgias or myalgias reported. PSYCHIATRIC: Positive for anxiety/depression. NEUROLOGIC: Negative for seizure, stroke, or migraine headache. HEMATOLOGIC: Positive for chronic anemia. PHYSICAL EXAMINATION: GENERAL: A very pleasant 73-year-old female, looks a bit older than her stated age in no acute distress. VITAL SIGNS: Temperature 36.8, pulse 60, respiratory rate 20, blood pressure 108/68. SKIN: Warm, dry, noncyanotic without petechia, rash or ecchymosis. HEENT: Head is atraumatic, normocephalic. Eyes: PERRLA, EOMI. Sclerae are nonicteric. Nares are patent without rhinorrhea or discharge. Throat clear. Tongue midline. Mucous membranes are moist. No buccal lesions or ulcerations. NECK: Supple. Trachea midline. LYMPH: No cervical or supraclavicular palpable nodes. HEART: Regular rate and rhythm. LUNGS: Clear to auscultation bilaterally. ABDOMEN: Soft, nontender, nondistended. No palpable hepatosplenomegaly. No rigidity or guarding. EXTREMITIES: Musculoskeletal strength and pulses are equal in all 4 quadrants. NEUROLOGIC: She is awake, alert and oriented x3. Cranial nerves are grossly intact. LABORATORY DATA: WBC count 5390, hemoglobin 10.4, platelet count 189,000. Serum iron 21, TIBC 163, transferrin 133, percent saturation transferrin 11, ferritin 122.6. RADIOGRAPHIC DATA: Upper GI series consistent with mild esophageal dysmotility and suspected gastritis. CTA of the abdomen and pelvis: Greater than 90% stenosis of the celiac artery. Two SMA stents are visualized. No evidence of hemodynamic significant SMA stenosis. Four right renal arteries with moderate stenosis, single left renal artery without evidence of significant stenosis. 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 IMPRESSION: 1. Abdominal pain. 2. Cachexia. 3. Chronic kidney disease. 4. Atrial fibrillation. 5. Dyslipidemia. 6. Hypertension. 7. Coronary artery disease by history. 8. Anemia (iron deficiency). PLAN: I had the pleasure of visiting with Bisi at bedside today. She reports a history of refractory anemia that spans at least the last 6 months or so where she has required occasional transfusional support and has received IV iron. I also saw that she is on oral iron supplementation which is probably suboptimally absorbs, as she suffers from upper GI issues, particularly gastritis in addition double dose of proton pump inhibition, which affects absorption of oral iron. To my knowledge, no active bleeding has been discovered. Unfortunately, in patients with significant comorbid issues, doing a complete GI workup may prove to be difficult. Perhaps camera endoscopy may be of help. From a hematologic standpoint, I agree with what we are doing currently to maintain her hemoglobin on an average of 10 g/dL, it is optimal in individuals with both significant cardiac and pulmonary morbidities. I would probably not do too much further with her at this juncture. Perhaps maybe the incorporation of Procrit once she is medically stable and discharged home, would be more than happy to see her in the office and continue following her regularly. I agree with current medical management otherwise. I do not have a ready answer for her refractoriness but obviously bleeding should be completely ruled out. The patient is on antiplatelet agents and certainly high risk for gastrointestinal bleeding. I have nothing further to add at this time. Again, I would be more than happy to see her in the office upon discharge to establish appropriate surveillance, iron supplementation and perhaps initiation of supplemental erythropoietin. SHAID
== END 2019-02-15 17:02 | disposition home health service (06) | DRG 394 ==
LOC: 4E 18:21 → ED 18:21 → SUATTDRO 23:32 → 4E 23:36 → SUATTDRO 02-11 18:39

== ENCOUNTER 2019-02-26 03:53 | Inpatient (IN) ==
[2019-02-26] MEDS ORDERED: ALBUT/IPRATROP 3MG/0.5MG NEB 3 ML VIAL NEB STA (04:14)
[2019-02-26 04:19] LABS: Basophils # (auto) 0.02 K/uL (0-0.2); Basophils % (auto) 0.2 %; Eosinophils # (auto) 0.37 K/uL (0-0.5); Eosinophils % (auto) 3.9 %; Hematocrit (blood only) 32.9 % (37-47); Hemoglobin 10.5 g/dL (12.0-16.0); Immature Granulocytes # (auto) 0.03 K/uL (0.00-0.02); Immature Granulocytes % (auto) 0.3 %; Lymphocytes # (auto) 1.03 K/uL (1.2-3.4); Mean Corpuscular Hgb Conc 31.9 g/dL (32-36); Mean Corpuscular Volume 91.1 fL (80-100); Mean Platelet Volume 9.1 fL (7.4-10.4); Monocytes # (auto) 1.05 K/uL (0.11-0.59); Monocytes % (auto) 11.2 %; Neutrophils # (auto) 6.89 K/uL (1.4-6.5); Neutrophils % (auto) 73.4 %; Platelet Count 238 K/uL (130-400); RDW Coefficient of Variation 17.7 % (11.5-14.5); Red Blood Count 3.61 M/uL (4.2-5.4); White Blood Count 9.39 K/uL (4.8-10.8)
[2019-02-26 04:35] LABS: HCO3 ABG 28 mmol/L (19-24); Oxygen Saturation ABG 97.4 % (90-95); PCO2 ABG 46 mmHg (35-46); PO2 ABG 100 mm/Hg (80-95)
[2019-02-26 04:36] LABS: Allen Test Pos (Pos)
[2019-02-26 04:40] LABS: Albumin Level 2.3 gm/dl (3.4-5.0); BUN Creatinine Ratio 25.7 (10-20); Calcium 8.6 mg/dl (8.5-10.1); Creatinine Clr Calc Pharmacy 38.6 ml/min; Est GFR (African American) 86.8; Est GFR (Non-African American) 74.9; Potassium 4.1 mmol/L (3.5-5.1)
[2019-02-26 05:01] LABS: Albumin Globulin Ratio 0.6 (0.9-2); Bilirubin,Total 0.5 mg/dl (0.2-1); Globulin 3.7 gm/dl (2.5-4.0); Troponin I 1.52 ng/ml (0-0.045)
[2019-02-26] MEDS ORDERED: methylPREDNISolone 125 MG/2 ML VIAL IV STA (05:10)
[2019-02-26] MEDS ORDERED: FUROSEMIDE 40 MG/4 ML VIAL IV STA (05:10)
--- NOTE | 2019-02-26 05:50 | Emergency Department Note ---
Entered by Baltazar Calderón acting as a scribe for History of Present Illness General Chief complaint: Shortness of Breath/Dyspnea Stated complaint: SHORT OF BREATH Time Seen by Provider: 02/26/19 03:59 Source: patient and EMS History of Present Illness Onset (ago): day(s) (today) Location: chest Severity: similar to prior episodes Pain Consistency: + constant Quality: + other (SOB) Associated symptoms: + other (Positive for a dry cough. Negative for fever, vomiting, diarrhea, and pain.) The patient is a 73 year old female who presents to the emergency department with complaints of constant SOB beginning today. Per EMS, the patient has a history of COPD and CHF. The patient states that her current symptoms feel more similar to her CHF. She notes that she wears oxygen at all times at home, and she reports that she also uses breathing treatments at home as well. She also complains of a dry cough. She denies any fever, vomiting, diarrhea, and pain. No recent sick contact. States she has had multiple similar episodes which have required hospitalization. States she has been compliant with all her medications and breathing treatments. States she does have some swelling in her legs. Home Medications Home Medications Medication Instructions Recorded Confirmed Type albuterol sulfate 2.5 mg INHALATION Q4 PRN 10/24/18 02/26/19 History aspirin [Aspir-81] 81 mg PO HS 10/24/18 02/26/19 History atorvastatin 80 mg PO HS 10/24/18 02/26/19 History clopidogrel 75 mg PO QAM 10/24/18 02/26/19 History ezetimibe 10 mg PO HS 10/24/18 02/26/19 History fluticasone propionate 2 spray INTRANASAL QAM PRN 10/24/18 02/26/19 History potassium chloride 20 meq PO QAM 10/24/18 02/26/19 History pramipexole 0.25 mg PO HS 10/24/18 02/26/19 History sertraline 50 mg PO HS 10/24/18 02/26/19 History sodium chloride [[place] Nasal] 1 spray INTRANASAL DIRECTED PRN 10/24/18 02/26/19 History ondansetron HCl [Zofran] 4 mg PO Q6H PRN #10 tab 10/29/18 02/26/19 Rx acetaminophen [Tylenol Extra 500 mg PO Q6H PRN 12/19/18 02/26/19 History Strength] Brovana 15 mcg INHALATION BIDR #120 ml 12/29/18 02/26/19 Rx pantoprazole 40 mg PO BID #60 tab 12/29/18 02/26/19 Rx budesonide 0.5 mg NEB BIDR #1 ml 01/14/19 02/26/19 Rx furosemide [Lasix] 40 mg PO BID #0 tab 01/14/19 02/26/19 Rx lorazepam 0.5 mg PO Q8H PRN #3 tab 01/14/19 02/26/19 Rx lisinopril 2.5 mg PO DAILY 01/25/19 02/26/19 History prochlorperazine maleate 10 mg PO Q6H PRN #20 tab 01/25/19 02/26/19 Rx [Compazine] metoclopramide HCl 5 mg PO AC 02/10/19 02/26/19 History albuterol sulfate [Ventolin HFA] 1 - 2 puff INHALATION Q4 PRN 02/26/19 02/26/19 History carvedilol 18.75 mg PO BID 02/26/19 02/26/19 History guaifenesin [Mucinex] 600 mg PO Q12 PRN 02/26/19 02/26/19 History Allergies Allergy/AdvReac Type Severity Reaction Status Date / Time Sulfa (Sulfonamide Allergy Intermediate RASH Verified 02/26/19 04:34 Antibiotics) morphine AdvReac Mild GI SYMPTOMS Verified 02/26/19 04:34 Past Med/Surg History Medical History Iliac artery aneurysm Renal artery stenosis DVT prophylaxis UTI (urinary tract infection) due to Enterococcus Mesenteric artery stenosis (Acute) Restless leg syndrome COPD exacerbation (Acute) Cachexia Demand ischemia Abdominal pain Chronic kidney disease, stage 3a Iron deficiency anemia Chronic systolic (congestive) heart failure Acute on chronic respiratory failure with hypoxia and hypercapnia CAD (coronary artery disease) s/p IA in 1999 Atrial fibrillation Ischemic cardiomyopathy EF 25-30% Dyslipidemia Hypertension Anxiety COPD (chronic obstructive pulmonary disease) (Acute) Hypoxia Nausea (Acute) Pulmonary congestion (Acute) Non compliance w medication regimen Emphysema of lung Syncope AICD malfunction Respiratory distress Ambulatory dysfunction (Acute) Elevated troponin Influenza A Left lower lobe pneumonia Weakness (Acute) GIB (gastrointestinal bleeding) Reflux esophagitis SAH (subarachnoid hemorrhage) Surgical History S/P carotid endarterectomy S/P carpal tunnel release S/P hysterectomy S/P implantation of automatic cardioverter/defibrillator (AICD) Social History Preferred Language: Thai Communication Ability: Effective Visual Impairment: No Limitations Hearing Ability: Normal Case Coordinator Required: No Beliefs That Will Affect Care: None marital status: Current Living Situation: Spouse Current Living Situation Comment: lives in [place]; has 3 children current occupational status: retired Other Information That Helps Us Care for You: 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 and A total of 10 systems reviewed and were otherwise negative Physical Exam Vital Signs Vital Signs - 24 hr 02/26/19 03:59 02/26/19 04:00 02/26/19 04:01 Temperature 36.5 C Temperature Source Oral Sepsis Recent Fever Within 48 Hours No Sepsis Action Taken by Nursing No Action Required Pulse Rate 104 H 105 H 103 H Pulse Rate [Apical] Pulse Rate from SpO2 Sensor 104 H 103 H Respiratory Rate 39 H 28 H 31 H Respiratory Effort / Characteristics Spontaneous Labored Short of Breath Respiratory Depth Deep Respiratory Pattern Regular Blood Pressure 135/66 135/66 Blood Pressure [Right Arm] Blood Pressure Mean 89 89 Blood Pressure Mean [Right Arm] Pulse Oximetry 99 99 99 Oxygen Delivery Method Nasal Cannula Oxygen Flow Rate 6 Fraction of Inspired Oxygen SaO2/FiO2 Ratio 02/26/19 04:04 02/26/19 04:15 02/26/19 04:28 Temperature Temperature Source Sepsis Recent Fever Within 48 Hours Sepsis Action Taken by Nursing Pulse Rate 101 H 103 H Pulse Rate [Apical] Pulse Rate from SpO2 Sensor 101 H Respiratory Rate 18 28 H Respiratory Effort / Characteristics Labored Respiratory Depth Respiratory Pattern Blood Pressure Blood Pressure [Right Arm] Blood Pressure Mean Blood Pressure Mean [Right Arm] Pulse Oximetry 90 99 99 Oxygen Delivery Method Nasal Cannula Oxygen Flow Rate 4 Fraction of Inspired Oxygen 30 SaO2/FiO2 Ratio 02/26/19 04:29 02/26/19 04:30 02/26/19 04:45 Temperature Temperature Source Sepsis Recent Fever Within 48 Hours Sepsis Action Taken by Nursing Pulse Rate 103 H 99 H Pulse Rate [Apical] 103 H Pulse Rate from SpO2 Sensor 103 H 99 H Respiratory Rate 28 H 36 H 42 H Respiratory Effort / Characteristics Labored Respiratory Depth Respiratory Pattern Blood Pressure Blood Pressure [Right Arm] Blood Pressure Mean Blood Pressure Mean [Right Arm] Pulse Oximetry 99 100 98 Oxygen Delivery Method BiPAP Oxygen Flow Rate Fraction of Inspired Oxygen 30 SaO2/FiO2 Ratio 02/26/19 04:53 02/26/19 05:00 02/26/19 05:01 Temperature Temperature Source Sepsis Recent Fever Within 48 Hours Sepsis Action Taken by Nursing Pulse Rate 99 H 98 H 97 H Pulse Rate [Apical] Pulse Rate from SpO2 Sensor 99 H 97 H 97 H Respiratory Rate 24 26 H 38 H Respiratory Effort / Characteristics Respiratory Depth Respiratory Pattern Blood Pressure 139/68 127/62 Blood Pressure [Right Arm] Blood Pressure Mean 91 83 Blood Pressure Mean [Right Arm] Pulse Oximetry 99 97 98 Oxygen Delivery Method Oxygen Flow Rate Fraction of Inspired Oxygen SaO2/FiO2 Ratio 02/26/19 05:15 02/26/19 05:30 02/26/19 05:31 Temperature Temperature Source Sepsis Recent Fever Within 48 Hours Sepsis Action Taken by Nursing Pulse Rate Pulse Rate [Apical] 92 H Pulse Rate from SpO2 Sensor 96 H 92 H Respiratory Rate 38 H 26 H 18 Respiratory Effort / Characteristics Non-Labored Spontaneous Respiratory Depth Normal Respiratory Pattern Blood Pressure 131/58 L Blood Pressure [Right Arm] 131/58 L Blood Pressure Mean 82 Blood Pressure Mean [Right Arm] 82 Pulse Oximetry 97 96 99 Oxygen Delivery Method BiPAP Oxygen Flow Rate Fraction of Inspired Oxygen 30 SaO2/FiO2 Ratio 330 02/26/19 05:45 02/26/19 06:00 Temperature Temperature Source Sepsis Recent Fever Within 48 Hours Sepsis Action Taken by Nursing Pulse Rate 95 H 91 H Pulse Rate [Apical] Pulse Rate from SpO2 Sensor 95 H 92 H Respiratory Rate 31 H 23 Respiratory Effort / Characteristics Respiratory Depth Respiratory Pattern Blood Pressure 122/54 L Blood Pressure [Right Arm] Blood Pressure Mean 76 Blood Pressure Mean [Right Arm] Pulse Oximetry 97 95 Oxygen Delivery Method Oxygen Flow Rate Fraction of Inspired Oxygen SaO2/FiO2 Ratio GENERAL: alert, well appearing, well nourished, in moderate distress, non-toxic EYE EXAM: normal conjunctiva, PERRL and EOM's grossly intact OROPHARYNX: no exudate, no erythema, lips, buccal mucosa, and tongue normal and mucous membranes are moist NECK: supple, no nuchal rigidity, no adenopathy, non-tender LUNGS: Normal chest wall mechanics. Increased work of breathing, bibasilar rales, scattered expiratory wheeze, mild pursed lip breathing. HEART: no murmurs, S1 normal and S2 normal ABDOMEN: abdomen soft, non-tender, normo-active bowel sounds, no masses, no rebound or guarding. BACK: Back is symmetrical on inspection and there is no deformity, no midline tenderness, no CVA tenderness. SKIN: no rashes and no bruising UPPER EXTREMITIES: upper extremities are grossly normal. Nml pulses b/l. LOWER EXTREMITIES: 1+ lower extremity edema bilaterally, nml pulses b/l. NEURO EXAM: Normal sensorium, cranial nerves II-XII grossly intact, normal speech, no gross weakness of arms, no gross weakness of legs. Course 0354: The patient was evaluated in room A10. A complete history and physical exam was performed. 0415: Per review of EMR, the patient was hospitalized last month for acute on chronic respiratory failure. She has a known history of ischemic cardiomyopathy with an LVEF of 25-30%. 0514: I reevaluated and updated the patient. She looks better. She states that BiPAP is helping. She can speak in longer phrases. 0526: Upon reevaluation, the patient is stable. I discussed the findings and the treatment plan with the patient. She expresses agreement and understanding. I spoke with Dr. Estevez of the [facility] Hospitalist Service. The patient will be evaluated for further management. 0549: Pt requesting mckeon catheter. Consultations Consultation #1: I reviewed the patient's case with Dr. Estevez - Hospitalist, [facility]. He will evaluate the patient for further management. Time: 05:26 Administered Medications Albuterol (Ventolin 0.083% 2.5mg/3ml) 2.5 mg INH Q4 PRN PRN Reason: Shortness Of Breath Or Wheezing Stop: 03/28/19 07:50 Last Admin: 02/26/19 17:52 Dose: 2.5 mg Documented by: [id number] Arformoterol Tartrate (Brovana Neb) 15 mcg INH BIDR [facility] Stop: 03/28/19 07:59 Last Admin: 02/26/19 19:20 Dose: 15 mcg Documented by: [id number] Admin: 02/26/19 08:28 Dose: 15 mcg Documented by: [id number] Aspirin (Ecotrin Ectab) 81 mg PO HS [facility] Stop: 03/28/19 20:59 Last Admin: 02/26/19 20:53 Dose: 81 mg Documented by: [id number] Atorvastatin Calcium (Lipitor) 80 mg PO HS [facility] Stop: 03/28/19 20:59 Last Admin: 02/26/19 20:52 Dose: 80 mg Documented by: [id number] Budesonide (Pulmicort Respules) 0.5 mg NEB BIDR [facility] Stop: 03/28/19 07:59 Last Admin: 02/26/19 19:21 Dose: 0.5 mg Documented by: [id number] Admin: 02/26/19 08:28 Dose: 0.5 mg Documented by: [id number] Carvedilol (Coreg) 18.75 mg PO BID [facility] Stop: 03/28/19 08:59 Last Admin: 02/26/19 20:52 Dose: 18.75 mg Documented by: [id number] Admin: 02/26/19 09:08 Dose: 18.75 mg Documented by: [id number] Clopidogrel Bisulfate (Plavix) 75 mg PO QAM [facility] Stop: 03/28/19 08:59 Last Admin: 02/26/19 09:08 Dose: 75 mg Documented by: [id number] Ezetimibe (Zetia) 10 mg PO [facility] Stop: 03/28/19 20:59 Last Admin: 02/26/19 20:54 Dose: 10 mg Documented by: [id number] Heparin Sodium (Porcine) (Heparin Sodium (Porcine)) 5,000 units SQ Q8 [facility] Stop: 03/28/19 13:59 Last Admin: 02/26/19 20:55 Dose: 5,000 units Documented by: [id number] Cosigned by: [id number] Admin: 02/26/19 13:36 Dose: 5,000 units Documented by: [id number] Cosigned by: [id number] Furosemide 40 mg/ Syringe 4 mls @ 4 mls/min IV TID [facility] Stop: 03/28/19 08:59 Last Admin: 02/26/19 20:54 Dose: 4 mls/min Documented by: [id number] Admin: 02/26/19 13:36 Dose: 4 mls/min Documented by: [id number] Admin: 02/26/19 09:09 Dose: 4 mls/min Documented by: [id number] Lisinopril (Zestril) 2.5 mg PO DAILY [facility] Stop: 03/28/19 08:59 Last Admin: 02/26/19 09:08 Dose: 2.5 mg Documented by: [id number] Lorazepam (Ativan) 0.5 mg PO Q8H PRN PRN Reason: anxiety Stop: 03/28/19 07:50 Last Admin: 02/26/19 17:38 Dose: 0.5 mg Documented by: [id number] Metoclopramide HCl (Reglan) 5 mg PO AC [facility] Stop: 03/28/19 08:29 Last Admin: 02/26/19 17:36 Dose: 5 mg Documented by: [id number] Admin: 02/26/19 13:00 Dose: 5 mg Documented by: [id number] Admin: 02/26/19 09:08 Dose: 5 mg Documented by: [id number] Pantoprazole Sodium (Protonix) 40 mg PO BID [facility] Stop: 03/28/19 08:59 Last Admin: 02/26/19 20:53 Dose: 40 mg Documented by: [id number] Admin: 02/26/19 09:09 Dose: 40 mg Documented by: [id number] Potassium Chloride (Klor-Con M20) 20 meq PO HS [facility] Stop: 03/28/19 20:59 Last Admin: 02/26/19 20:53 Dose: 20 meq Documented by: [id number] Potassium Chloride (Klor-Con M20) 20 meq PO QAM [facility] Stop: 03/28/19 08:59 Last Admin: 02/26/19 09:08 Dose: 20 meq Documented by: [id number] Pramipexole Dihydrochloride (Mirapex) 0.25 mg PO HS [facility] Stop: 03/28/19 20:59 Last Admin: 02/26/19 20:54 Dose: 0.25 mg Documented by: [id number] Sertraline HCl (Zoloft) 50 mg PO HS [facility] Stop: 03/28/19 20:59 Last Admin: 02/26/19 20:54 Dose: 50 mg Documented by: [id number] Discontinued Medications Albuterol (Duoneb) 3 ml NEB NOW STA Stop: 02/26/19 04:15 Last Admin: 02/26/19 04:32 Dose: 3 ml Documented by: [id number] Furosemide (Lasix) 40 mg IV NOW STA Stop: 02/26/19 05:11 Last Admin: 02/26/19 05:56 Dose: 40 mg Documented by: [id number] Lorazepam (Ativan) 0.5 mg PO NOW STA Stop: 02/26/19 22:01 Last Admin: 02/26/19 22:22 Dose: 0.5 mg Documented by: [id number] Methylprednisolone (Solumedrol) 60 mg IV NOW STA Stop: 02/26/19 05:11 Last Admin: 02/26/19 05:56 Dose: 60 mg Documented by: [id number] Nitroglycerin (Nitro-Bid 2%) 1 inch EXT ONE ONE Stop: 02/26/19 08:31 Last Admin: 02/26/19 09:16 Dose: 1 inch Documented by: [id number] Medical Decision Making Differential Diagnosis Differential diagnosis: Etiologies such as infections, reactive airway disease, COPD, pneumonia, pleural effusion, pulmonary edema, ARDS, pneumothorax, CHF, cardiac ischemia, cardiac tamponade, dysrhythmia, anemia, pulmonary embolism, musculoskeletal, gastrointestinal process, as well as others were entertained. Medical Records Attestation: I reviewed the patient's medical records. Home Medications Current Medication List: was personally reviewed by me Laboratory Data Attestation: I reviewed the patient's lab results. Result diagrams: 02/26/19 04:08 02/26/19 04:08 Lab Results 02/26/19 02/26/19 02/26/19 Range/Units 04:08 04:08 04:09 WBC 9.39 (4.8-10.8) K/uL RBC 3.61 L (4.2-5.4) M/uL Hgb 10.5 L (12.0-16.0) g/dL Hct 32.9 L (37-47) % MCV 91.1 (80-100) fL MCH 29.1 (25-34) pg MCHC 31.9 L (32-36) g/dL RDW Std Deviation 59.0 H (36.4-46.3) fL RDW Coeff of Kiana 17.7 H (11.5-14.5) % Plt Count 238 (130-400) K/uL MPV 9.1 (7.4-10.4) fL Immature Gran % (Auto) 0.3 % Neut % (Auto) 73.4 % Lymph % (Auto) 11.0 % Hardin % (Auto) 11.2 % Eos % (Auto) 3.9 % Baso % (Auto) 0.2 % Immature Gran # (Auto) 0.03 H (0.00-0.02) K/uL Neut # (Auto) 6.89 H (1.4-6.5) K/uL Lymph # (Auto) 1.03 L (1.2-3.4) K/uL Hardin # (Auto) 1.05 H (0.11-0.59) K/uL Eos # (Auto) 0.37 (0-0.5) K/uL Baso # (Auto) 0.02 (0-0.2) K/uL PT 10.9 (9.0-12.0) Seconds INR 1.1 (0.9-1.1) ABG pH (7.35-7.45) ABG pCO2 (35-46) mmHg ABG pO2 (80-95) mm/Hg ABG HCO3 (19-24) mmol/L ABG O2 Saturation (90-95) % ABG Base Excess (-9-1.8) mEq/L Simba Test (Pos) Barometric Pressure mm/Hg Oxygen Given Sodium 135 L (136-145) mmol/L Potassium 4.1 (3.5-5.1) mmol/L Chloride 100 (98-107) mmol/L Carbon Dioxide 29 (21-32) mmol/L Anion Gap 6.0 (3-11) BUN 20 H (7-18) mg/dl Creatinine 0.78 (0.6-1.2) mg/dl Est Cr Clr Drug Dosing 38.6 ml/min Est GFR ( Amer) 86.8 Est GFR (Non-Af Amer) 74.9 BUN/Creatinine Ratio 25.7 H (10-20) Glucose 131 H (70-99) mg/dl Calcium 8.6 (8.5-10.1) mg/dl Magnesium 2.0 (1.8-2.4) mg/dl Total Bilirubin 0.5 (0.2-1) mg/dl AST 31 (15-37) U/L ALT 22 (12-78) U/L Alkaline Phosphatase 47 (45-117) U/L Troponin I 1.520 H* (0-0.045) ng/ml NT-Pro-B Natriuret Pep 67225 H (0-900) pg/ml Total Protein 6.0 L (6.4-8.2) gm/dl Albumin 2.3 L (3.4-5.0) gm/dl Globulin 3.7 (2.5-4.0) gm/dl Albumin/Globulin Ratio 0.6 L (0.9-2) Lipase 72 L (73-393) U/L 02/26/19 Range/Units 04:22 WBC (4.8-10.8) K/uL RBC (4.2-5.4) M/uL Hgb (12.0-16.0) g/dL Hct (37-47) % MCV (80-100) fL MCH (25-34) pg MCHC (32-36) g/dL RDW Std Deviation (36.4-46.3) fL RDW Coeff of Kiana (11.5-14.5) % Plt Count (130-400) K/uL MPV (7.4-10.4) fL Immature Gran % (Auto) % Neut % (Auto) % Lymph % (Auto) % Hardin % (Auto) % Eos % (Auto) % Baso % (Auto) % Immature Gran # (Auto) (0.00-0.02) K/uL Neut # (Auto) (1.4-6.5) K/uL Lymph # (Auto) (1.2-3.4) K/uL Hardin # (Auto) (0.11-0.59) K/uL Eos # (Auto) (0-0.5) K/uL Baso # (Auto) (0-0.2) K/uL PT (9.0-12.0) Seconds INR (0.9-1.1) ABG pH 7.40 (7.35-7.45) ABG pCO2 46 (35-46) mmHg ABG pO2 100 H (80-95) mm/Hg ABG HCO3 28 H (19-24) mmol/L ABG O2 Saturation 97.4 H (90-95) % ABG Base Excess 2.3 H (-9-1.8) mEq/L Simba Test Pos (Pos) Barometric Pressure 734.6 mm/Hg Oxygen Given FiO2 30% Sodium (136-145) mmol/L Potassium (3.5-5.1) mmol/L Chloride (98-107) mmol/L Carbon Dioxide (21-32) mmol/L Anion Gap (3-11) BUN (7-18) mg/dl Creatinine (0.6-1.2) mg/dl Est Cr Clr Drug Dosing ml/min Est GFR ( Amer) Est GFR (Non-Af Amer) BUN/Creatinine Ratio (10-20) Glucose (70-99) mg/dl Calcium (8.5-10.1) mg/dl Magnesium (1.8-2.4) mg/dl Total Bilirubin (0.2-1) mg/dl AST (15-37) U/L ALT (12-78) U/L Alkaline Phosphatase (45-117) U/L Troponin I (0-0.045) ng/ml NT-Pro-B Natriuret Pep (0-900) pg/ml Total Protein (6.4-8.2) gm/dl Albumin (3.4-5.0) gm/dl Globulin (2.5-4.0) gm/dl Albumin/Globulin Ratio (0.9-2) Lipase (73-393) U/L Imaging Data Attestation: I personally reviewed and interpreted this imaging study as follo ws: My Impression: CHEST X-RAY: Cardiomegaly. Bi-V pacer noted. No wide mediastinum. Slightly increased interstitial markings at the right base. No fulminant pulmonary edema. No right pulmonary effusion. Left diaphragmatic border obscured by heart border. No significant change compared to prior. ECG Data Attestation: I personally reviewed and interpreted this ECG as follows: Indication: SOB/dyspnea Rate (beats per minute): 105 Rhythm: other (paced) Findings: no ST depression and no ST elevation Comparison ECG Date: from (01/25/2019) Change: no significant change Additional Comments: Prolonged intervals consistent with pacing, rightward axis. Blood Pressure Blood Pressure Findings: Elevated blood pressure Blood Pressure Disposition: elevated BP felt to be situational MDM Narrative Patient here with increased work of breathing on presentation despite additional oxygen therapy and nebulizer treatments by EMS. Patient with long-standing history of COPD/emphysema as well as multiple prior episodes of congestive heart failure. Initial presentation patient with increased work of breathing, speaking in short to her three-word phrases but was mentating well and able to answer some questions. Patient stated this felt more in line with her symptoms from congestive heart failure than COPD. Due to symptoms refractory to breathin g treatments and her current nonrebreather, patient started on BiPAP. Additional DuoNeb was given to the BiPAP. Patient was given a dose of steroids as well as an additional dose of Lasix. I did review the EMR, and patient with a ejection fraction around 25% and currently does have a bi-V pacer secondary to multiple prior episodes of symptomatic congestive heart failure with admissions. Patient was hemodynamically stable and work of breathing ultimately improved after BiPAP treatment. Patient does have chronically elevated troponin secondary to her poor cardiac function, patient's troponin tonight elevated compared to prior. Patient's BNP elevated however in line with prior episodes. No evidence of worsening renal function. No evidence of bacteremia/sepsis. Patient's chest x-ray did not reveal any other new pathology. I do not suspect PE. Patient here made aware of all results and need for additional inpatient management given severity of symptoms and complex medical history. Patient stated she is not currently enrolled in the CHF clinic. She states she does take a diuretic daily and monitors her weight. Impression & Plan Dyspnea, COPD (chronic obstructive pulmonary disease), Elevated troponin, CHF (congestive heart failure) Discharge Plan Visit Data *Final* Discharge Date/Time: 02/26/19 07:23 Chief Complaint: Shortness of Breath/Dyspnea Stated Complaint: SHORT OF BREATH ED Provider: Alesia Dick Discharge Problem: Dyspnea, COPD (chronic obstructive pulmonary disease), Elevated troponin, CHF (congestive heart failure) Patient Disposition: Admitted As Inpatient Condition: Fair Discharge Instructions Interventions: ED Discharge Assessment Last Done: 02/26/19 07:23 Discharge Problem: Dyspnea Qualifiers: Dyspnea type: unspecified Qualified Code(s): R06.00 - Dyspnea, unspecified COPD (chronic obstructive pulmonary disease) Qualifiers: COPD type: unspecified COPD Qualified Code(s): J44.9 - Chronic obstructive pulmonary disease, unspecified CHF (congestive heart failure) Qualifiers: Heart failure type: unspecified Heart failure chronicity: unspecified Qualified Code(s): I50.9 - Heart failure, unspecified The scribe's documentation has been prepared under my direction and personally reviewed by me in its entirety. I confirm that the note above accurately ref lects all work, treatment, procedures, and medical decision making performed by me.
--- NOTE | 2019-02-26 06:19 | History & Physical Report ---
Date of Service February 26, 2019 Assessment & Plan (1) CHF (congestive heart failure): 73 y/o F Hx advanced COPD, systolic CHF 25%, pacer/AICD, CAD, AF, HTN, HLD, anxiety. The pt is dependent on 4-5L 02. She presents with acute SOB overnight which landed her in the ER pvc monitor. She denies CP a productive cough or fevers. She was hypoxic on arrival, exhibiting a degree of respiratory distress and meriting treatment with a BiPAP. She has been admitted multiple times this year for respiratory issues related to both COPD and CHF and was recently admitted with abdominal pain related to mesenteric ischemia. Initial labs are notable for an elevated troponin. The elevation is chronic but is well above baseline. 1) CHF exacerbation - placed on BiPAP, NTG, TID Lasix. I/O, daily weights - cont B dane, WALTER. 2) CAD/Trop elevation above baseline - we will trend and obtain a limited echo to assess wall motion. She does not have ACS symptoms and an EKG is paced and nondiagnostic 3) COPD - no clear evidence of ACS - cont B dane, ASA, Plavix, Statin 4) HTN, HLD - cont Lisinopril, Lasix, statin Full code - Heparin prophylaxis Total time for this admit including review of labs, meds, imaging, records - discussion with pt and ER attending - 40 min Present on Admission?: Yes History of Present Illness Chief Complaint: Shortness of breath Primary Care Provider: NO PCP 73 y/o F Hx advanced COPD, systolic CHF 25%, pacer/AICD, CAD, AF, HTN, HLD, anxiety. The pt is dependent on 4-5L 02. She presents with acute SOB overnight which landed her in the ER pvc monitor. She denies CP a productive cough or fevers. She was hypoxic on arrival, exhibiting a degree of respiratory distress and meriting treatment with a BiPAP. She has been admitted multiple times this year for respiratory issues related to both COPD and CHF and was recently admitted with abdominal pain related to mesenteric ischemia. Initial labs are notable for an elevated troponin. The elevation is chronic but is well above baseline. PMH: 1) CAD - [place] 1999 2) Chronic AF 3) History of GI bleed 4) COPD - dependent on 4-5 L home 02 5) AICD/pacer 6) History of subarachnoid hemorrhage 7) HTN 8) HLD 9) Anxiety 10) Mesenteric ischemia 11) Chronic systolic CHF - EF 25% Surgical: 1) Carotid endarterectomy 2) Hysterectomy 3) Carpal tunnel release 4) AICD/pacer Social: Does not currently smoke or drink - extensive smoking history Family: Both parents du to complications of CHF Allergies Allergy/AdvReac Type Severity Reaction Status Date / Time Sulfa (Sulfonamide Allergy Intermediate RASH Verified 02/26/19 04:34 Antibiotics) morphine AdvReac Mild GI SYMPTOMS Verified 02/26/19 04:34 Home Medications Home Medications Medication Instructions Recorded Confirmed Type albuterol sulfate 2.5 mg INHALATION Q4 PRN 10/24/18 02/26/19 History aspirin [Aspir-81] 81 mg PO HS 10/24/18 02/26/19 History atorvastatin 80 mg PO HS 10/24/18 02/26/19 History clopidogrel 75 mg PO QAM 10/24/18 02/26/19 History ezetimibe 10 mg PO HS 10/24/18 02/26/19 History fluticasone propionate 2 spray INTRANASAL QAM PRN 10/24/18 02/26/19 History potassium chloride 20 meq PO QAM 10/24/18 02/26/19 History pramipexole 0.25 mg PO HS 10/24/18 02/26/19 History sertraline 50 mg PO HS 10/24/18 02/26/19 History sodium chloride [Golinda Nasal] 1 spray INTRANASAL DIRECTED PRN 10/24/18 02/26/19 History ondansetron HCl [Zofran] 4 mg PO Q6H PRN #10 tab 10/29/18 02/26/19 Rx acetaminophen [Tylenol Extra 500 mg PO Q6H PRN 12/19/18 02/26/19 History Strength] Brovana 15 mcg INHALATION BIDR #120 ml 12/29/18 02/26/19 Rx pantoprazole 40 mg PO BID #60 tab 12/29/18 02/26/19 Rx budesonide 0.5 mg NEB BIDR #1 ml 01/14/19 02/26/19 Rx furosemide [Lasix] 40 mg PO BID #0 tab 01/14/19 02/26/19 Rx lorazepam 0.5 mg PO Q8H PRN #3 tab 01/14/19 02/26/19 Rx lisinopril 2.5 mg PO DAILY 01/25/19 02/26/19 History prochlorperazine maleate 10 mg PO Q6H PRN #20 tab 01/25/19 02/26/19 Rx [Compazine] metoclopramide HCl 5 mg PO AC 02/10/19 02/26/19 History albuterol sulfate [Ventolin HFA] 1 - 2 puff INHALATION Q4 PRN 02/26/19 02/26/19 History carvedilol 18.75 mg PO BID 02/26/19 02/26/19 History guaifenesin [Mucinex] 600 mg PO Q12 PRN 02/26/19 02/26/19 History Past Med/Surg History Medical History Iliac artery aneurysm Renal artery stenosis DVT prophylaxis UTI (urinary tract infection) due to Enterococcus Mesenteric artery stenosis (Acute) Restless leg syndrome COPD exacerbation (Acute) Cachexia Demand ischemia Abdominal pain Chronic kidney disease, stage 3a Iron deficiency anemia Chronic systolic (congestive) heart failure Acute on chronic respiratory failure with hypoxia and hypercapnia CAD (coronary artery disease) s/p [place] in 1999 Atrial fibrillation Ischemic cardiomyopathy EF 25-30% Dyslipidemia Hypertension Anxiety COPD (chronic obstructive pulmonary disease) (Acute) Hypoxia Nausea (Acute) Pulmonary congestion (Acute) Non compliance w medication regimen Emphysema of lung Syncope AICD malfunction Respiratory distress Ambulatory dysfunction (Acute) Elevated troponin Influenza A Left lower lobe pneumonia Weakness (Acute) GIB (gastrointestinal bleeding) Reflux esophagitis SAH (subarachnoid hemorrhage) Surgical History S/P carotid endarterectomy S/P carpal tunnel release S/P hysterectomy S/P implantation of automatic cardioverter/defibrillator (AICD) Social History Preferred Language: Faroese Communication Ability: Effective Visual Impairment: No Limitations Hearing Ability: Normal Beliefs That Will Affect Care: None marital status: Current Living Situation: Spouse Current Living Situation Comment: lives in [place]; has 3 children 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[employer], 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) Feels Safe at Home: Yes Smoking Status: Never smoker Tobacco Type: cigarettes Cigarettes Per Day: quit 1 month ago; smoked up to 1ppd in the past; started in teenage years Second Hand Exposure: No Hx Alcohol Use: No Hx Substance Use: No Review of Systems Review of Systems: Gen: Denies fevers, night sweats, rigors, fatigue, malaise, weight loss/gain ENT: Denies congestion, throat pain, hearing loss Eyes: Denies acute visual changes CV: Denies CP, palpitations Pulmonary: + progressive SOB GI: Denies N/V, diarrhea, constipation Neuro: Denies acute or unilateral weakness, acute gait impairment, headache or acute visual changes Musculoskeletal: Denies joint pain, inflammation - edema reported Endocrine: Denies polydipsia, polyuria Skin: Denies acute rashes or ulcers Physical Exam Physical Exam: General: AAO - appears comfortable on BiPaP ENT: No erythema or exudates, no thrush Eyes: FAISAL, EOMI Head and neck: Normocephalic, atraumatic, No JVD, neck is supple. Chest/heart: Nontender, S1,2, faint, no clear murmur Lungs: No air entry at L base - air movement is diminished - no audible wheezing Abdomen: Nontender, nondistended, BS+ Neuro: AAO x 3, speech is clear, no unilateral weakness or loss of sensation, coordination intact Musculoskeletal: No joint inflammation, muscle tenderness, FROM Skin: No acute rashes or ulcers Extremities: No clubbing, cyanosis, ++edema Results & Data Vital Signs (Past 12 Hours) Vital Signs Temp Pulse Pulse Resp BP BP Pulse Ox 02/26/19 05:31 92 H 18 131/58 L 99 02/26/19 04:29 103 H 28 H 99 02/26/19 04:28 103 H 28 H 99 02/26/19 04:04 90 02/26/19 04:00 97.7 F 105 H 28 H 135/66 99 Diagnostic Findings CXR: Hyperinflation/COPD, CHF EKG: Paced - nondiagnostic (1) CHF (congestive heart failure) Heart failure chronicity: unspecified Heart failure type: unspecified Qualified Code(s): I50.9 - Heart failure, unspecified
--- NOTE | 2019-02-26 07:24 | XRay Report ---
XR chest 1V portable CLINICAL HISTORY: 73 years-old Female presenting with sob. TECHNIQUE: Portable upright AP view of the chest was obtained. COMPARISON: 02/10/2019. FINDINGS: Left subclavian implanted cardiac defibrillator with leads to the right atrium, coronary sinus, and r ight ventricular apex. Atherosclerosis of the aortic arch. Cardiac silhouette moderately enlarged. En largement of the main pulmonary artery evidenced by convexity at the aortopulmonary window. Diffusely prominent interstitial lung markings, most pronounced in the left perihilar region and right lung ba se. Prominence of bilateral magaly likely vascular. Lungs may be mildly hyperinflated. No large effusio n or pneumothorax. Osseous structures normal. IMPRESSION: 1. Cardiomegaly. Prominent interstitial lung markings may indicate interlobular septal thickening an d venolymphatic congestive change. No raiza pulmonary edema. Less likely, this could indicate an unde rlying developing infiltrate. 2. Main pulmonary artery enlargement likely indicates underlying pulmonary artery hypertension. Electronically signed by: Bob Calvert M.D. 02/26/2019 7:22 AM
[2019-02-26] MEDS ORDERED: ACETAMINOPHEN 500 MG TAB PO PRN (07:51)
[2019-02-26] MEDS ORDERED: ALUMINUM/MAGNESIUM SUSP 30 ML UDC PO PRN (07:51)
[2019-02-26] MEDS ORDERED: PROCHLORPERAZINE MALEATE 10 MG TAB PO PRN (07:51)
[2019-02-26] MEDS ORDERED: POLYETHYLENE (MIRALAX) 17 GM PACK PO PRN (07:51)
[2019-02-26] MEDS ORDERED: guaiFENesin 600 MG TABCR PO PRN (07:51)
[2019-02-26] MEDS ORDERED: ONDANSETRON INJ 2 MG/ML 2 ML VIAL IV PRN (07:51)
[2019-02-26] MEDS ORDERED: ONDANSETRON 4 MG TAB PO PRN (07:51)
[2019-02-26] MEDS: ARFORMOTEROL TART 15MCG/2ML VIAL INH SCH ×2 (08:28→19:20)
[2019-02-26] MEDS: BUDESONIDE 0.5 MG/2 ML VIAL (PULMICORT) NEB SCH ×2 (08:28→19:21)
[2019-02-26] MEDS ORDERED: NITROGLYCERIN 2% OINTMENT 30GM TUBE EXT ONE (08:30)
[2019-02-26 09:01] LABS: INR 1.1 (0.9-1.1); Prothrombin Time 10.9 Seconds (9.0-12.0)
[2019-02-26] MEDS: CARVEDILOL 6.25 MG TAB PO SCH ×2 (09:08→20:52)
[2019-02-26] MEDS: CLOPIDOGREL BISULFATE 75 MG TAB PO SCH (09:08)
[2019-02-26] MEDS: LISINOPRIL 2.5 MG TAB PO SCH (09:08)
[2019-02-26] MEDS: POTASSIUM CHLORIDE 20 MEQ TABCR PO SCH ×2 (09:08→20:53)
[2019-02-26] MEDS: METOCLOPRAMIDE HCL 5 MG TABLET PO SCH ×3 (09:08→17:36)
[2019-02-26] MEDS: FUROSEMIDE 40 MG in SYRINGE 0 ML IV SCH ×3 (09:09→20:54)
[2019-02-26] MEDS: PANTOprazole 40 MG TAB PO SCH ×2 (09:09→20:53)
--- NOTE | 2019-02-26 09:50 | Hospitalist Progress Note ---
Date of Service February 26, 2019 Assessment & Plan (1) Acute on chronic systolic heart failure: - Presented with SOB in setting of elevated BNP. - Most recent TTE showed EF 25% with ishemic cardiomyopathy. - CXR was negative for extensive pulm edema. - Monitor intake and output & daily weights. - Lasix 40 mg IV TID for diuresis. - Continue beta dane and ACEI as prescribed. (2) Acute on chronic respiratory failure with hypoxia: - Has been requiring 3L via NC in setting of CHF exacerbation. - Continue to monitor -- requires 2L via NC at home. (3) CAD (coronary artery disease): - No symptoms/signs of ACS during this admission; Trop is elevated, will monitor. - Continue ASA, Plavix, Coreg, Lisinopril, statin and Zetia as prescribed. (4) Elevated troponin: - Trop increased to 1.520 -- will monitor q6hr. - EKG was negative for acute changes. (5) COPD (chronic obstructive pulmonary disease): - Stable, does not appear to be in acute exacerbation. - Continue home agents as prescribed - Albuterol prn, Arfomoterol and Budesonide. (6) Hypertension: - Continue Coreg and Lisinopril as prescribed. - Lasix 40 mg IV TID for diuresis. (7) Dyslipidemia: - Continue statin and Zetia as prescribed. (8) Ischemic cardiomyopathy: - Most recent EF 25% with cardiac history. (9) Atrial fibrillation: - Currently V-paced; continue telemetry. - Continue Coreg as prescribed. (10) Iron deficiency anemia: - Monitor H/H daily; no transfusion support required. - Previous colonoscopy in 2012 was negative, only showed diverticulosis. - Upper GI series on 02/13/19 showed mild esophageal dysmotility and gastritis. - Hematology consulted during last admission, can follow up as outpatient. - Has also been evaluated by GI in the past -- intervention, including EGD, would be too high risk. - Continue PPI BID. (11) Chronic kidney disease, stage 3a: - Renally dose all meds. - Monitor creatinine in setting of diuresis. 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 - Continue aspirin/plavix/statin as prescribed. (13) Iliac artery aneurysm: - Noted on previous CT angiogram, was 2 cm. - Previously evaluated by vascular surgery. (14) Renal artery stenosis: - All 4 right renal arteries with stenosis. - Monitor renal function daily. (15) Anxiety: - Continue Sertraline and Ativan as prescribed. (16) Restless leg syndrome: - Continue Mirapex as prescribed. (17) Cachexia: - Hypoalbuminemia; has poor appetite, weight loss at home. - Encourage PO intake. - Consider repeat nutrition consult. (18) DVT prophylaxis: - Heparin subQ q8hr. Dispo: Telemetry for treatment of CHF exacerbation. Supervising Physician Co-Signing Physician Notes Attending Attestation: Chart reviewed in detail, care plan d/w PA Keyla Cadet. I agree w/ the jacobsen components of her documentation. Complicated and sickly 73yo female with chronic hypoxic resp failure on home O2, severe COPD, severe chronic systolic CHF, PAD, celiac artery stenosis. Decompensated CHF - diurese, supportive care. Maninder Cuevas MD Subjective Pt. has shortness of breath this morning following admission -- has been requiring 3L via NC. Denies chest pain, LE edema, cough, abd pain, diarrhea or constipation. Is receiving IV diuresis for CHF exacerbation. Review of Systems Review of Systems: All systems reviewed & are unremarkable except as noted in HPI & below Constitutional: + fatigue and + weakness; no fever, no chills and no anorexia Respiratory: + dyspnea and + dyspnea on exertion; no cough and no wheezing Cardiovascular: no chest pain, no palpitations, no lightheadedness, no syncope and no edema Gastrointestinal: no abdominal pain, no nausea, no vomiting, no constipation and no diarrhea/loose stools Genitourinary: no difficulty urinating Musculoskeletal: no back pain and no joint pain Integumentary: no non-healing lesions Allergy / Immunological: no rash Physical Exam Physical Exam: General: Resting comfortably in no apparent distress HEENT: NC/AT; PERRLA with EOMI; Yaak conjunctiva, MMM. No erythema of posterior pharynx Neck: Supple and nontender; No JVD Cardiac: RRR w/o murmurs, gallops or rubs Lungs: +3L via NC; crackles in bilat lung bases, scattered rhonchi Abdomen: Bowel normoactive X 4; Nontender to palpation Extremities: Warm. No edema present Neuro: No focal weakness Skin: No rash Results & Data Vital Signs (Past 12 Hours) Vital Signs Temp Pulse Pulse Pulse Resp BP BP 02/26/19 08:30 93 H 20 02/26/19 08:05 36.5 C 91 H 22 122/65 02/26/19 07:37 91 H 22 02/26/19 07:30 91 H 22 128/62 02/26/19 07:23 36.8 C 92 H 18 135/59 L 02/26/19 07:15 90 22 02/26/19 07:00 89 22 127/57 L 02/26/19 06:57 92 H 18 02/26/19 06:45 91 H 20 02/26/19 06:30 89 22 135/59 L 02/26/19 06:15 91 H 24 02/26/19 06:00 91 H 23 122/54 L 02/26/19 05:45 95 H 31 H 02/26/19 05:31 92 H 18 02/26/19 05:30 26 H 131/58 L 02/26/19 05:15 38 H 02/26/19 05:01 97 H 38 H 127/62 02/26/19 05:00 98 H 26 H 02/26/19 04:53 99 H 24 139/68 02/26/19 04:45 99 H 42 H 02/26/19 04:30 103 H 36 H 02/26/19 04:29 103 H 28 H 02/26/19 04:28 103 H 28 H 02/26/19 04:15 101 H 18 02/26/19 04:04 02/26/19 04:01 103 H 31 H 02/26/19 04:00 36.5 C 105 H 28 H 135/66 02/26/19 03:59 104 H 39 H 135/66 BP Pulse Ox 02/26/19 08:30 97 02/26/19 08:05 97 02/26/19 07:37 128/62 96 02/26/19 07:30 96 02/26/19 07:23 96 02/26/19 07:15 96 02/26/19 07:00 96 02/26/19 06:57 135/59 L 96 02/26/19 06:45 97 02/26/19 06:30 98 02/26/19 06:15 98 02/26/19 06:00 95 02/26/19 05:45 97 02/26/19 05:31 131/58 L 99 02/26/19 05:30 96 02/26/19 05:15 97 02/26/19 05:01 98 02/26/19 05:00 97 02/26/19 04:53 99 02/26/19 04:45 98 02/26/19 04:30 100 02/26/19 04:29 99 02/26/19 04:28 99 02/26/19 04:15 99 02/26/19 04:04 90 02/26/19 04:01 99 02/26/19 04:00 99 02/26/19 03:59 99 Laboratory Results Lab Results 02/26/19 02/26/19 02/26/19 Range/Units 04:08 04:08 04:09 WBC 9.39 (4.8-10.8) K/uL RBC 3.61 L (4.2-5.4) M/uL Hgb 10.5 L (12.0-16.0) g/dL Hct 32.9 L (37-47) % MCV 91.1 (80-100) fL MCH 29.1 (25-34) pg MCHC 31.9 L (32-36) g/dL RDW Std Deviation 59.0 H (36.4-46.3) fL RDW Coeff of Kiana 17.7 H (11.5-14.5) % Plt Count 238 (130-400) K/uL MPV 9.1 (7.4-10.4) fL Immature Gran % (Auto) 0.3 % Neut % (Auto) 73.4 % Lymph % (Auto) 11.0 % [place] % (Auto) 11.2 % Eos % (Auto) 3.9 % Baso % (Auto) 0.2 % Immature Gran # (Auto) 0.03 H (0.00-0.02) K/uL Neut # (Auto) 6.89 H (1.4-6.5) K/uL Lymph # (Auto) 1.03 L (1.2-3.4) K/uL [place] # (Auto) 1.05 H (0.11-0.59) K/uL Eos # (Auto) 0.37 (0-0.5) K/uL Baso # (Auto) 0.02 (0-0.2) K/uL PT 10.9 (9.0-12.0) Seconds INR 1.1 (0.9-1.1) ABG pH (7.35-7.45) ABG pCO2 (35-46) mmHg ABG pO2 (80-95) mm/Hg ABG HCO3 (19-24) mmol/L ABG O2 Saturation (90-95) % ABG Base Excess (-9-1.8) mEq/L Simba Test (Pos) Barometric Pressure mm/Hg Oxygen Given Sodium 135 L (136-145) mmol/L Potassium 4.1 (3.5-5.1) mmol/L Chloride 100 (98-107) mmol/L Carbon Dioxide 29 (21-32) mmol/L Anion Gap 6.0 (3-11) BUN 20 H (7-18) mg/dl Creatinine 0.78 (0.6-1.2) mg/dl Est Cr Clr Drug Dosing 38.6 ml/min Est GFR ( Amer) 86.8 Est GFR (Non-Af Amer) 74.9 BUN/Creatinine Ratio 25.7 H (10-20) Glucose 131 H (70-99) mg/dl Calcium 8.6 (8.5-10.1) mg/dl Magnesium 2.0 (1.8-2.4) mg/dl Total Bilirubin 0.5 (0.2-1) mg/dl AST 31 (15-37) U/L ALT 22 (12-78) U/L Alkaline Phosphatase 47 (45-117) U/L Troponin I 1.520 H* (0-0.045) ng/ml NT-Pro-B Natriuret Pep 96038 H (0-900) pg/ml Total Protein 6.0 L (6.4-8.2) gm/dl Albumin 2.3 L (3.4-5.0) gm/dl Globulin 3.7 (2.5-4.0) gm/dl Albumin/Globulin Ratio 0.6 L (0.9-2) Lipase 72 L (73-393) U/L 02/26/19 Range/Units 04:22 WBC (4.8-10.8) K/uL RBC (4.2-5.4) M/uL Hgb (12.0-16.0) g/dL Hct (37-47) % MCV (80-100) fL MCH (25-34) pg MCHC (32-36) g/dL RDW Std Deviation (36.4-46.3) fL RDW Coeff of Kiana (11.5-14.5) % Plt Count (130-400) K/uL MPV (7.4-10.4) fL Immature Gran % (Auto) % Neut % (Auto) % Lymph % (Auto) % [place] % (Auto) % Eos % (Auto) % Baso % (Auto) % Immature Gran # (Auto) (0.00-0.02) K/uL Neut # (Auto) (1.4-6.5) K/uL Lymph # (Auto) (1.2-3.4) K/uL [place] # (Auto) (0.11-0.59) K/uL Eos # (Auto) (0-0.5) K/uL Baso # (Auto) (0-0.2) K/uL PT (9.0-12.0) Seconds INR (0.9-1.1) ABG pH 7.40 (7.35-7.45) ABG pCO2 46 (35-46) mmHg ABG pO2 100 H (80-95) mm/Hg ABG HCO3 28 H (19-24) mmol/L ABG O2 Saturation 97.4 H (90-95) % ABG Base Excess 2.3 H (-9-1.8) mEq/L [place]ba Test Pos (Pos) Barometric Pressure 734.6 mm/Hg Oxygen Given FiO2 30% Sodium (136-145) mmol/L Potassium (3.5-5.1) mmol/L Chloride (98-107) mmol/L Carbon Dioxide (21-32) mmol/L Anion Gap (3-11) BUN (7-18) mg/dl Creatinine (0.6-1.2) mg/dl Est Cr Clr Drug Dosing ml/min Est GFR ( Amer) Est GFR (Non-Af Amer) BUN/Creatinine Ratio (10-20) Glucose (70-99) mg/dl Calcium (8.5-10.1) mg/dl Magnesium (1.8-2.4) mg/dl Total Bilirubin (0.2-1) mg/dl AST (15-37) U/L ALT (12-78) U/L Alkaline Phosphatase (45-117) U/L Troponin I (0-0.045) ng/ml NT-Pro-B Natriuret Pep (0-900) pg/ml Total Protein (6.4-8.2) gm/dl Albumin (3.4-5.0) gm/dl Globulin (2.5-4.0) gm/dl Albumin/Globulin Ratio (0.9-2) Lipase (73-393) U/L (1) CAD (coronary artery disease) Associated angina: without angina Coronary Disease-Associated Artery/Lesion type: [place] artery [place] vs. transplanted heart: [place] heart Qualified Code(s): I25.10 - Atherosclerotic heart disease of [place] coronary artery without angina pectoris (2) Atrial fibrillation Atrial fibrillation type: chronic Qualified Code(s): I48.2 - Chronic atrial fibrillation (3) Iron deficiency anemia Iron deficiency anemia type: unspecified iron deficiency Qualified Code(s): D50.9 - Iron deficiency anemia, unspecified (4) COPD (chronic obstructive pulmonary disease) COPD type: unspecified COPD Qualified Code(s): J44.9 - Chronic obstructive pulmonary disease, unspecified (5) Hypertension Hypertension type: essential hypertension Qualified Code(s): I10 - Essential (primary) hypertension
[2019-02-26] MEDS: HEPARIN SOD 5,000 UNIT/0.5 ML VIAL SQ SCH ×2 (13:36→20:55)
[2019-02-26] MEDS: LORazepam 0.5 MG TAB PO PRN (17:38)
[2019-02-26] MEDS: ALBUTEROL 0.083% NEBU SOLN 3 ML VIAL INH PRN (17:52)
[2019-02-26] MEDS: ATORVASTATIN 40 MG TAB PO SCH (20:52)
[2019-02-26] MEDS: ASPIRIN 81 MG ECTAB PO SCH (20:53)
[2019-02-26] MEDS: EZETIMIBE 10 MG TABLET PO SCH (20:54)
[2019-02-26] MEDS: SERTRALINE HCL 50 MG TABLET PO SCH (20:54)
[2019-02-26] MEDS: PRAMIPEXOLE DIHYDROCHLO 0.25 MG TAB PO SCH (20:54)
[2019-02-26] MEDS ORDERED: LORazepam 0.5 MG TAB PO STA (22:00)
[2019-02-27] MEDS: HEPARIN SOD 5,000 UNIT/0.5 ML VIAL SQ SCH ×3 (06:03→20:42)
[2019-02-27 06:38] LABS: Hematocrit (blood only) 28.3 % (37-47); Hemoglobin 9.5 g/dL (12.0-16.0); Mean Corpuscular Hgb Conc 33.6 g/dL (32-36); Mean Corpuscular Volume 88.7 fL (80-100); Mean Platelet Volume 8.9 fL (7.4-10.4); Platelet Count 226 K/uL (130-400); RDW Coefficient of Variation 17.4 % (11.5-14.5); RDW Standard Deviation 57.2 fL (36.4-46.3); Red Blood Count 3.19 M/uL (4.2-5.4); White Blood Count 8.09 K/uL (4.8-10.8)
[2019-02-27] MEDS: ARFORMOTEROL TART 15MCG/2ML VIAL INH SCH ×2 (07:03→19:29)
[2019-02-27] MEDS: BUDESONIDE 0.5 MG/2 ML VIAL (PULMICORT) NEB SCH ×2 (07:03→19:29)
[2019-02-27 07:08] LABS: Calcium 8.6 mg/dl (8.5-10.1); Creatinine Clr Calc Pharmacy 42.3 ml/min; Est GFR (African American) 80.5; Est GFR (Non-African American) 69.5; Potassium 4.1 mmol/L (3.5-5.1)
[2019-02-27] MEDS: METOCLOPRAMIDE HCL 5 MG TABLET PO SCH ×3 (07:42→16:44)
[2019-02-27] MEDS: PANTOprazole 40 MG TAB PO SCH ×2 (08:49→20:41)
[2019-02-27] MEDS: FUROSEMIDE 40 MG in SYRINGE 0 ML IV SCH ×3 (08:49→16:44)
[2019-02-27] MEDS: POTASSIUM CHLORIDE 20 MEQ TABCR PO SCH ×2 (08:50→20:42)
[2019-02-27] MEDS: CARVEDILOL 6.25 MG TAB PO SCH (08:50)
[2019-02-27] MEDS: CLOPIDOGREL BISULFATE 75 MG TAB PO SCH (08:50)
[2019-02-27] MEDS: LISINOPRIL 2.5 MG TAB PO SCH (08:50)
--- NOTE | 2019-02-27 12:44 | Hospitalist Progress Note ---
Date of Service February 27, 2019 Assessment & Plan (1) Acute on chronic systolic heart failure: - Presented with SOB in setting of elevated BNP. - Most recent TTE showed EF 25% with ischemic cardiomyopathy. - CXR was negative for extensive pulm edema. - Monitor intake and output & daily weights. - Lasix 40 mg IV -- decrease to BID dosing due to hypotension; monitor BP and renal function closely. - Continue beta dane and ACEI as prescribed. - Will need to follow up with heart failure clinic at [facility] [place] for evaluation as outpatient. (2) Acute on chronic respiratory failure with hypoxia: - Has been requiring 3L via NC, due to CHF exacerbation. - Continue to monitor -- on 2L via NC at home. (3) CAD (coronary artery disease): - No symptoms/signs of ACS during this admission. - Trop was mildly elevated at admission, now improved. - Continue ASA, Plavix, Coreg, Lisinopril, statin and Zetia as prescribed. (4) Elevated troponin: - Trop peaked at 1.520, trended down. - EKG was negative. (5) COPD (chronic obstructive pulmonary disease): - Stable, does not appear to be in acute exacerbation. - Continue home agents as prescribed - Albuterol prn, Arfomoterol and Budesonide. (6) Hypertension: - Continue Coreg and Lisinopril as prescribed. - Lasix 40 mg IV BID (previously TID) for diuresis. - BP has been fluctuating, will monitor. Decreased dose of diuretics to BID dosing. (7) Dyslipidemia: - Continue statin and Zetia as prescribed. (8) Ischemic cardiomyopathy: - Most recent EF 25% with cardiac history. (9) Atrial fibrillation: - Currently V-paced; continue telemetry. - Continue Coreg as prescribed. (10) Iron deficiency anemia: - Monitor H/H daily; has been stable. Consider transfusion for hgb <9 due to cardiac history. - Previous colonoscopy in 2012 was negative, only showed diverticulosis. - Upper GI series on 02/13/19 showed mild esophageal dysmotility and gastritis. - Hematology consulted during last admission, can follow up as outpatient. - Has also been evaluated by GI in the past -- intervention, including EGD, would be too high risk. - Continue PPI BID. - Received Iron IV infusion during last admission; consider repeat infusions if necessary as inpatient. (11) Chronic kidney disease, stage 3a: - Renally dose all meds. - Monitor creatinine in setting of diuresis. 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 - Continue aspirin/plavix/statin as prescribed. (13) Iliac artery aneurysm: - Noted on previous CT angiogram, was 2 cm. - Previously evaluated by vascular surgery. (14) Renal artery stenosis: - All 4 right renal arteries with stenosis. - Monitor renal function daily. (15) Anxiety: - Continue Sertraline and Ativan as prescribed. (16) Restless leg syndrome: - Continue Mirapex as prescribed. (17) Cachexia: - Hypoalbuminemia; has poor appetite, weight loss at home. - Encourage PO intake. - Consider nutrition consult. (18) DVT prophylaxis: - Heparin subQ q8hr. Dispo: Telemetry for treatment of CHF exacerbation. Discharge pending improvement in SOB, oxygen requirements. Supervising Physician Co-Signing Physician Notes Attending Attestation: Chart reviewed in detail, care plan d/w PA Keyla Cadet. I agree w/ the jacobsen components of her documentation. 73yo female with chronic hypoxic resp failure on home O2, severe COPD, severe chronic systolic CHF, PAD, celiac artery stenosis. Continues w/ decompensated CHF - lasix IV BID. No significant improvement in symptoms thus far. COPD - appears stable, no current exacerbation. Maninder Cuevas MD Subjective Pt. is on 3L via NC. States SOB is unchanged -- is SOB at rest and with exertion. Has cough, non productive. Denies chest pain, LE edema, N/V, constipation. Review of Systems Review of Systems: All systems reviewed & are unremarkable except as noted in HPI & below Constitutional: + fatigue and + weakness; no fever, no chills and no anorexia Respiratory: + cough, + dyspnea and + dyspnea on exertion; no sputum production and no wheezing Cardiovascular: no chest pain, no palpitations, no lightheadedness and no edema Gastrointestinal: no abdominal pain, no nausea and no constipation Genitourinary: no difficulty urinating Musculoskeletal: no back pain and no joint pain Integumentary: no non-healing lesions Allergy / Immunological: no rash Physical Exam Physical Exam: General: Resting comfortably in no apparent distress HEENT: NC/AT; PERRLA with EOMI; [place] conjunctiva, MMM. No erythema of posterior pharynx Neck: Supple and nontender; No JVD Cardiac: RRR w/o murmurs, gallops or rubs Lungs: 3L via NC; crackles in bilat lung bases. Abdomen: Bowel normoactive X 4; Nontender to palpation Extremities: Warm. No edema present Neuro: No focal weakness Skin: No rash Results & Data Vital Signs (Past 12 Hours) Vital Signs Temp Pulse Resp BP Pulse Ox 02/27/19 11:14 36.3 C L 86 18 90/52 L 94 02/27/19 07:20 36.7 C 94 H 20 112/45 L 97 02/27/19 07:03 86 20 99 02/27/19 03:30 36.5 C 104 H 18 115/69 97 Laboratory Results 02/27/19 02/27/19 02/26/19 Range/Units 06:06 06:06 15:44 WBC 8.09 (4.8-10.8) K/uL RBC 3.19 L (4.2-5.4) M/uL Hgb 9.5 L (12.0-16.0) g/dL Hct 28.3 L (37-47) % MCV 88.7 (80-100) fL MCH 29.8 (25-34) pg MCHC 33.6 (32-36) g/dL RDW Std Deviation 57.2 H (36.4-46.3) fL RDW Coeff of Kiana 17.4 H (11.5-14.5) % Plt Count 226 (130-400) K/uL MPV 8.9 (7.4-10.4) fL Sodium 135 L (136-145) mmol/L Potassium 4.1 (3.5-5.1) mmol/L Chloride 100 (98-107) mmol/L Carbon Dioxide 30 (21-32) mmol/L Anion Gap 5.0 (3-11) BUN 28 H (7-18) mg/dl Creatinine 0.83 (0.6-1.2) mg/dl Est Cr Clr Drug Dosing 42.3 ml/min Est GFR ( Amer) 80.5 Est GFR (Non-Af Amer) 69.5 BUN/Creatinine Ratio 34.0 H (10-20) Glucose 124 H (70-99) mg/dl Calcium 8.6 (8.5-10.1) mg/dl Magnesium 2.0 (1.8-2.4) mg/dl Troponin I 0.584 H* (0-0.045) ng/ml (1) CAD (coronary artery disease) Associated angina: without angina Coronary Disease-Associated Artery/Lesion type: [place] artery [place] vs. transplanted heart: [place] heart Qualified Code(s): I25.10 - Atherosclerotic heart disease of [place] coronary artery without angina pectoris (2) Atrial fibrillation Atrial fibrillation type: chronic Qualified Code(s): I48.2 - Chronic atrial fibrillation (3) Iron deficiency anemia Iron deficiency anemia type: unspecified iron deficiency Qualified Code(s): D50.9 - Iron deficiency anemia, unspecified (4) COPD (chronic obstructive pulmonary disease) COPD type: unspecified COPD Qualified Code(s): J44.9 - Chronic obstructive pulmonary disease, unspecified (5) Hypertension Hypertension type: essential hypertension Qualified Code(s): I10 - Essential (primary) hypertension
[2019-02-27] MEDS ORDERED: IRON DEXTRAN COMPLEX 25 MG in SYRINGE 0 ML IV SCH (16:00)
[2019-02-27] MEDS: ACETAMINOPHEN 325 MG TAB PO PRN (16:36)
[2019-02-27] MEDS: ALBUTEROL 0.083% NEBU SOLN 3 ML VIAL INH PRN ×2 (16:54→22:46)
[2019-02-27] MEDS ORDERED: IRON DEXTRAN COMPLEX 75 MG in SYRINGE 0 ML IV SCH (17:00)
[2019-02-27] MEDS: ALBUT/IPRATROP 3MG/0.5MG NEB 3 ML VIAL NEB SCH (19:52)
[2019-02-27] MEDS: ATORVASTATIN 40 MG TAB PO SCH (20:41)
[2019-02-27] MEDS: EZETIMIBE 10 MG TABLET PO SCH (20:41)
[2019-02-27] MEDS: PRAMIPEXOLE DIHYDROCHLO 0.25 MG TAB PO SCH (20:42)
[2019-02-27] MEDS: ASPIRIN 81 MG ECTAB PO SCH (20:42)
[2019-02-27] MEDS: SERTRALINE HCL 50 MG TABLET PO SCH (20:43)
[2019-02-28] MEDS: LORazepam 0.5 MG TAB PO PRN ×3 (02:28→20:04)
[2019-02-28] MEDS: ALBUT/IPRATROP 3MG/0.5MG NEB 3 ML VIAL NEB SCH ×5 (02:36→19:09)
[2019-02-28] MEDS: HEPARIN SOD 5,000 UNIT/0.5 ML VIAL SQ SCH ×3 (05:42→21:40)
[2019-02-28] MEDS: METOCLOPRAMIDE HCL 5 MG TABLET PO SCH ×3 (06:18→16:39)
[2019-02-28 06:48] LABS: Hematocrit (blood only) 34.3 % (37-47); Hemoglobin 11.4 g/dL (12.0-16.0); Mean Corpuscular Hgb Conc 33.2 g/dL (32-36); Mean Platelet Volume 8.7 fL (7.4-10.4); Platelet Count 266 K/uL (130-400); RDW Coefficient of Variation 17.7 % (11.5-14.5); RDW Standard Deviation 58.8 fL (36.4-46.3); Red Blood Count 3.77 M/uL (4.2-5.4); White Blood Count 11.15 K/uL (4.8-10.8)
[2019-02-28 07:17] LABS: BUN Creatinine Ratio 34.2 (10-20); Calcium 9.1 mg/dl (8.5-10.1); Creatinine Clr Calc Pharmacy 38.4 ml/min; Est GFR (African American) 71.1; Est GFR (Non-African American) 61.3; Potassium 4.7 mmol/L (3.5-5.1)
[2019-02-28] MEDS: ARFORMOTEROL TART 15MCG/2ML VIAL INH SCH ×2 (07:20→19:07)
[2019-02-28] MEDS: BUDESONIDE 0.5 MG/2 ML VIAL (PULMICORT) NEB SCH ×2 (07:20→19:07)
[2019-02-28] MEDS: CLOPIDOGREL BISULFATE 75 MG TAB PO SCH (08:33)
[2019-02-28] MEDS: PANTOprazole 40 MG TAB PO SCH ×2 (08:33→20:04)
[2019-02-28] MEDS: POTASSIUM CHLORIDE 20 MEQ TABCR PO SCH ×2 (08:34→20:05)
[2019-02-28] MEDS: LISINOPRIL 2.5 MG TAB PO SCH (08:34)
--- NOTE | 2019-02-28 09:30 | XRay Report ---
XR chest 2V routine CLINICAL HISTORY: Hypoxia, rule out pulm edema vs. PNA COMPARISON STUDY: 02/26/2019 FINDINGS: Interval increase in prominence of pulmonary vasculature. Persistent consolidative change l eft lung base. Stable cardiomegaly. Permanent bipolar cardiac pacemaker unchanged. IMPRESSION: 1. Developing and or progressive components of congestive heart failure. 2. Unchanging consolidative change left base. The above report was generated using voice recognition software. It may contain grammatical, syntax or spelling errors. Electronically signed by: César Muñoz M.D. 02/28/2019 9:28 AM
[2019-02-28] MEDS: FUROSEMIDE 40 MG in SYRINGE 0 ML IV SCH ×2 (09:53→16:40)
[2019-02-28] MEDS: CARVEDILOL 12.5 MG TAB PO SCH ×2 (11:24→20:06)
--- NOTE | 2019-02-28 12:16 | Hospitalist Progress Note ---
Date of Service February 28, 2019 Assessment & Plan (1) Acute on chronic systolic heart failure: - Presented with SOB in setting of elevated BNP. - Most recent TTE showed EF 25% with ischemic cardiomyopathy. - Repeat CXR today showed developing CHF, neg for PNA; had worsening hypoxia, SOB overnight. - Weight is not decreasing with diuresis but has net negative I/Os. - Lasix 40 mg IV BID (hold parameters for hypotension) - Hold Lisinopril & decrease Coreg to 12.5 mg BID due to hypotension. - Will need to [place] [facility] [place]. (2) Acute on chronic respiratory failure with hypoxia: - O2 requirements increased to 4-5L via NC, previously on 3L. - May be relating to worsening pulm edema; repeat CXR findings as noted above. - Previously on 2L via NC at home. (3) CAD (coronary artery disease): - No symptoms/signs of ACS during this admission. - Trop was mildly elevated at admission, now improved. - Continue ASA, Plavix, Coreg, statin and Zetia. (4) Elevated troponin: - Trop peaked at 1.520, trended down. - EKG was negative. (5) COPD (chronic obstructive pulmonary disease): - Stable, does not appear to be in acute exacerbation. - Continue home agents as prescribed - Arfomoterol and Budesonide. - Duonebs scheduled QID with Albuterol prn. (6) Hypertension: - Will hold Lisinopril due to intermittent hypotension. - Decrease Coreg to 12.5 mg BID; allow room for diuresis in setting of CHF. - Lasix 40 mg IV BID for diuresis. (7) Dyslipidemia: - Continue statin and Zetia as prescribed. (8) Ischemic cardiomyopathy: - Most recent EF 25% with cardiac history. (9) Atrial fibrillation: - Currently V-paced; continue telemetry. - Continue Coreg - decreased to 12.5 mg BID. (10) Iron deficiency anemia: - Monitor H/H daily; Transfusion for hgb <9 due to cardiac history. - Previous colonoscopy in 2012 was negative, only showed diverticulosis. - Upper GI series on 02/13/19 showed mild esophageal dysmotility and gastritis. - Hematology consulted during last admission, can follow up as outpatient. - Has also been evaluated by GI in the past -- intervention, including EGD, would be too high risk. - Continue PPI BID. - Received IV iron infusion on 02/27/19; has been non-responsive to PO iron in the past. (11) Chronic kidney disease, stage 3a: - Renally dose all meds. - Monitor creatinine in setting of diuresis. 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 - Continue aspirin/plavix/statin as prescribed. (13) Iliac artery aneurysm: - Noted on previous CT angiogram, was 2 cm. - Previously evaluated by vascular surgery. (14) Renal artery stenosis: - All 4 right renal arteries with stenosis. - Monitor renal function daily. (15) Anxiety: - Continue Sertraline and Ativan as prescribed. (16) Restless leg syndrome: - Continue Mirapex as prescribed. (17) Cachexia: - Hypoalbuminemia; poor appetite, weight loss at home. - Encourage PO intake. (18) DVT prophylaxis: - Heparin subQ q8hr. Dispo: Telemetry for treatment of CHF exacerbation. Supervising Physician Co-Signing Physician Notes Attending Attestation: Chart reviewed in detail, care plan d/w PA Keyla Cadet. I agree w/ the jacobsen components of her documentation. 73yo female with chronic hypoxic resp failure on home O2, severe COPD, severe chronic systolic CHF, PAD, celiac artery stenosis. Being treated for acute/chronic systolic CHF. Status was worse overnight. Agree w/ adjustment in heart meds due to hypotension. Consider cardiology consultation. Consider inotropic agent to assist with diuresis. Need to refine goals of care and address code status. Maninder Cuevas MD Subjective Pt. had a "rough night" -- had increased shortness of breath. O2 requirements increased to 4-5L via NC. SOB is present both at rest and with exertion. Also has cough, non productive. Denies chest pain, LE edema, N/V, constipation. BP has been borderline hypotensive -- held Lasix dose last evening due to hypotension. Will decrease anti-hypertensives due allow for diuresis. Review of Systems Review of Systems: All systems reviewed & are unremarkable except as noted in HPI & below Constitutional: no fever, no chills, no fatigue, no weakness and no anorexia Respiratory: + cough, + dyspnea and + dyspnea on exertion; no chest congestion, no sputum production and no wheezing Cardiovascular: no chest pain, no palpitations and no edema Gastrointestinal: no abdominal pain, no nausea and no constipation Genitourinary: no difficulty urinating Musculoskeletal: no back pain and no joint pain Integumentary: no non-healing lesions Allergy / Immunological: no rash Physical Exam Physical Exam: General: Resting comfortably in no apparent distress HEENT: NC/AT; PERRLA with EOMI; [place] conjunctiva, MMM. No erythema of posterior pharynx Neck: Supple and nontender; No JVD Cardiac: RRR w/o murmurs, gallops or rubs Lungs: 5L via NC; crackles in bilat lower lung bases, scattered rhonchi throughout. Abdomen: Bowel normoactive X 4; Nontender to palpation Extremities: Warm. No edema present Neuro: No focal weakness Skin: No rash Results & Data Vital Signs (Past 12 Hours) Vital Signs Temp Pulse Pulse Resp BP Pulse Ox 02/28/19 11:37 36.6 C 60 24 97/46 L 98 02/28/19 10:40 77 18 98 02/28/19 07:22 119 H 18 96 02/28/19 07:04 36.6 C 120 H 22 121/69 95 02/28/19 04:07 36.6 C 94 H 20 110/67 96 02/28/19 02:36 111 H 22 95 02/28/19 00:17 36.7 C 90 19 105/60 96 Laboratory Results 02/28/19 02/28/19 Range/Units 06:27 06:27 WBC 11.15 H (4.8-10.8) K/uL RBC 3.77 L (4.2-5.4) M/uL Hgb 11.4 L (12.0-16.0) g/dL Hct 34.3 L (37-47) % MCV 91.0 (80-100) fL MCH 30.2 (25-34) pg MCHC 33.2 (32-36) g/dL RDW Std Deviation 58.8 H (36.4-46.3) fL RDW Coeff of Kiana 17.7 H (11.5-14.5) % Plt Count 266 (130-400) K/uL MPV 8.7 (7.4-10.4) fL Sodium 137 (136-145) mmol/L Potassium 4.7 (3.5-5.1) mmol/L Chloride 103 (98-107) mmol/L Carbon Dioxide 30 (21-32) mmol/L Anion Gap 4.0 (3-11) BUN 32 H (7-18) mg/dl Creatinine 0.92 (0.6-1.2) mg/dl Est Cr Clr Drug Dosing 38.4 ml/min Est GFR ( Amer) 71.1 Est GFR (Non-Af Amer) 61.3 BUN/Creatinine Ratio 34.2 H (10-20) Glucose 86 (70-99) mg/dl Calcium 9.1 (8.5-10.1) mg/dl Magnesium 2.0 (1.8-2.4) mg/dl (1) CAD (coronary artery disease) Associated angina: without angina Coronary Disease-Associated Artery/Lesion type: [place] artery [place] vs. transplanted heart: [place] heart Qualified Code(s): I25.10 - Atherosclerotic heart disease of [place] coronary artery without angina pectoris (2) Atrial fibrillation Atrial fibrillation type: chronic Qualified Code(s): I48.2 - Chronic atrial fibrillation (3) Iron deficiency anemia Iron deficiency anemia type: unspecified iron deficiency Qualified Code(s): D50.9 - Iron deficiency anemia, unspecified (4) COPD (chronic obstructive pulmonary disease) COPD type: unspecified COPD Qualified Code(s): J44.9 - Chronic obstructive pulmonary disease, unspecified (5) Hypertension Hypertension type: essential hypertension Qualified Code(s): I10 - Essential (primary) hypertension
[2019-02-28] MEDS ORDERED: ZOLPIDEM TARTRATE 5 MG TAB PO ONE (19:55)
[2019-02-28] MEDS: PRAMIPEXOLE DIHYDROCHLO 0.25 MG TAB PO SCH (20:05)
[2019-02-28] MEDS: ATORVASTATIN 40 MG TAB PO SCH (20:05)
[2019-02-28] MEDS: EZETIMIBE 10 MG TABLET PO SCH (20:05)
[2019-02-28] MEDS: ASPIRIN 81 MG ECTAB PO SCH (20:05)
[2019-02-28] MEDS: SERTRALINE HCL 50 MG TABLET PO SCH (20:05)
[2019-02-28] MEDS: ALBUTEROL 0.083% NEBU SOLN 3 ML VIAL INH PRN (23:59)
[2019-03-01] MEDS: ALBUTEROL 0.083% NEBU SOLN 3 ML VIAL INH PRN (03:15)
[2019-03-01 05:39] LABS: Hematocrit (blood only) 28.8 % (37-47); Hemoglobin 9.3 g/dL (12.0-16.0); Mean Corpuscular Hgb Conc 32.3 g/dL (32-36); Mean Corpuscular Volume 89.7 fL (80-100); Mean Platelet Volume 9.1 fL (7.4-10.4); Platelet Count 226 K/uL (130-400); RDW Coefficient of Variation 17.5 % (11.5-14.5); RDW Standard Deviation 57.5 fL (36.4-46.3); Red Blood Count 3.21 M/uL (4.2-5.4); White Blood Count 10.02 K/uL (4.8-10.8)
[2019-03-01] MEDS: HEPARIN SOD 5,000 UNIT/0.5 ML VIAL SQ SCH ×2 (05:40→14:14)
[2019-03-01 06:07] LABS: BUN Creatinine Ratio 33.3 (10-20); Creatinine Clr Calc Pharmacy 34.3 ml/min; Est GFR (Non-African American) 53.5; Potassium 4.7 mmol/L (3.5-5.1)
[2019-03-01] MEDS: ALBUT/IPRATROP 3MG/0.5MG NEB 3 ML VIAL NEB SCH ×4 (07:13→22:21)
[2019-03-01] MEDS: ARFORMOTEROL TART 15MCG/2ML VIAL INH SCH ×2 (07:13→19:07)
[2019-03-01] MEDS: BUDESONIDE 0.5 MG/2 ML VIAL (PULMICORT) NEB SCH ×2 (07:13→19:07)
[2019-03-01] MEDS: METOCLOPRAMIDE HCL 5 MG TABLET PO SCH ×3 (08:20→16:06)
[2019-03-01] MEDS: FUROSEMIDE 40 MG in SYRINGE 0 ML IV SCH ×2 (08:20→16:07)
[2019-03-01] MEDS: PANTOprazole 40 MG TAB PO SCH ×2 (08:20→22:09)
[2019-03-01] MEDS: CLOPIDOGREL BISULFATE 75 MG TAB PO SCH (08:20)
[2019-03-01] MEDS: POTASSIUM CHLORIDE 20 MEQ TABCR PO SCH ×2 (08:20→22:07)
[2019-03-01] MEDS: CARVEDILOL 12.5 MG TAB PO SCH (08:21)
[2019-03-01] MEDS ORDERED: LORazepam 0.5 MG TAB PO PRN (09:10)
--- NOTE | 2019-03-01 11:09 | Hospitalist Progress Note ---
Date of Service March 01, 2019 Assessment & Plan (1) Acute on chronic systolic heart failure: - Pt. has persistent SOB and O2 requirements have not improved; cannot tolerate diuresis well due to hypotension. - Most recent TTE showed EF 25% with ischemic cardiomyopathy. - Most recent CXR showed developing CHF, neg for PNA. - Weight has not decreased but does have net negative I/O's. - Lasix 40 mg IV BID (hold parameters for hypotension) - Holding Lisinopril & decreased Coreg to 6.25 mg BID due to hypotension (held medication this morning due to bradycardia) - Will be evaluated by heart failure team on Saturday03/03/19; consider cardiology consult over next 24 hours if no improvement in symptoms. - Palliative care consulted, discuss goals of care/code status - frequent re- admissions and poor prognosis in setting of CHF, COPD, etc. Has not responded well so far to treatment of CHF during this admission. (2) Acute on chronic respiratory failure with hypoxia: - O2 requirements above baseline -- 4L via NC. - Related to CHF exacerbation. - Previously on 2L via NC at home. (3) CAD (coronary artery disease): - No symptoms/signs of ACS during this admission. - Trop was mildly elevated at admission, now improved. - Continue ASA, Plavix, Coreg, statin and Zetia. (4) Elevated troponin: - Trop peaked at 1.520, trended down. - EKG was negative. (5) COPD (chronic obstructive pulmonary disease): - Stable, does not appear to be in acute exacerbation. - Continue home agents as prescribed - Arfomoterol and Budesonide. - Duonebs scheduled QID with Albuterol prn. (6) Hypertension: - Hold Lisinopril due to hypotension. - Decreased Coreg to 6.25 mg BID to prevent hypotension, allow for diuresis in setting of CHF. - Lasix 40 mg IV BID as noted above. (7) Dyslipidemia: - Continue statin and Zetia as prescribed. (8) Ischemic cardiomyopathy: - Most recent EF 25% with cardiac history. (9) Atrial fibrillation: - Currently V-paced; continue telemetry -- paced in the 60's over last 24 hours. - Continue Coreg - decreased to 6.25 mg BID. (10) Iron deficiency anemia: - Monitor H/H daily; Transfusion for hgb <9 due to cardiac history. - Previous colonoscopy in 2012 was negative, only showed diverticulosis. - Upper GI series on 02/13/19 showed mild esophageal dysmotility and gastritis. - Hematology consulted during last admission, can follow up as outpatient. - Has also been evaluated by GI in the past -- intervention, including EGD, would be too high risk. - Continue PPI BID. - Received IV iron infusion on 02/27/19; has been non-responsive to PO iron in the past. (11) Chronic kidney disease, stage 3a: - Renally dose all meds. 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 - Continue aspirin/plavix/statin as prescribed. (13) Iliac artery aneurysm: - Noted on previous CT angiogram, was 2 cm. - Previously evaluated by vascular surgery. (14) Renal artery stenosis: - All 4 right renal arteries with stenosis. - Monitor renal function daily. (15) Anxiety: - Continue Sertraline and Ativan as prescribed. (16) Restless leg syndrome: - Continue Mirapex as prescribed. (17) Cachexia: - Hypoalbuminemia; poor appetite, weight loss at home. - Encourage PO intake. (18) DVT prophylaxis: - Heparin subQ q8hr. Dispo: Telemetry for treatment of CHF exacerbation. Discharge pending improvement in SOB. Palliative care consulted to discuss goals of care. Supervising Physician Co-Signing Physician Notes Attending Attestation: Pt seen/examined, chart reviewed in detail, care plan d/w DANAE Keylaroxana Cadet. I agree w/ the jacobsen components of her documentation. 73yo female with chronic hypoxic resp failure on home O2, severe COPD, severe chronic systolic CHF, PAD, celiac artery stenosis. Patient continues to worsen from pulmonary standpoint. Continues with dyspnea, anxiety, etc despite attempts at diuresis. Ms Cadet discussed code status extensively with patient and her family (, daughter, etc) today. She is now DNR. They also discussed transitioning to comfort care measures in light of declining status. Comfort care pathway will be initiated tonight. Transfer from telemetry to [facility]. Exam - gen - sleeping, tachypneic, pale neck - JVD present ext - pulses 1+ b/l at best Agree with comfort care pathway. Patient has declined considerably recently, has had 7 admissions to hospital since October, etc. Family confirm she would not want aggressive measures. Morphine, ativan prn. Oxygen. Lasix prn for palliative purposes. Does have pacemaker - need to d/w family when to turn this off. Maninder Cuevas MD Subjective Pt. states SOB is slightly improved. Has been requiring 3-4L via NC. She did have increased SOB overnight, received Ativan/Ambien for insomnia/anxiety with improvement. Denies chest pain, LE edema, nausea, constipation. Attempted to discuss code status with the patient -- she would like her to be present for discussion. Will remain full code at this time. Pt. was agreeable to a palliative care consult to discuss her goals of care in setting of frequent hospital re-admissions. A brief conversation was also held with her son yesterday afternoon -- her son was aware that her overall prognosis is very poor in setting of CHF leading to frequent hospital re-admissions. He was going to talk to his siblings/father last evening. May have to re-address goals of care if pt. does not improve with diuresis. Review of Systems Review of Systems: All systems reviewed & are unremarkable except as noted in HPI & below Constitutional: + fatigue, + weakness and + anorexia; no fever and no chills Respiratory: + cough, + dyspnea and + dyspnea on exertion; no wheezing Cardiovascular: no chest pain, no palpitations, no lightheadedness and no edema Gastrointestinal: no abdominal pain, no nausea and no constipation Genitourinary: no difficulty urinating Musculoskeletal: no back pain and no joint pain Integumentary: no non-healing lesions Allergy / Immunological: no rash Physical Exam Physical Exam: General: Frail appearing elderly female, in no acute distress. HEENT: NC/AT; PERRLA with EOMI; [place] conjunctiva, MMM. No erythema of posterior pharynx Neck: Supple and nontender Cardiac: RRR Lungs: on 4L via NC; crackles in bilat lung bases, some scattered wheezing throughout. Abdomen: Bowel normoactive X 4; Nontender to palpation Extremities: Warm. No edema present Neuro: No focal weakness Skin: No rash Results & Data Vital Signs (Past 12 Hours) Vital Signs Temp Pulse Pulse Resp BP BP Pulse Ox 03/01/19 07:58 36.8 C 59 L 18 112/58 L 96 03/01/19 07:14 67 18 96 03/01/19 03:16 60 22 95 03/01/19 03:12 37.0 C 61 20 121/50 L 93 03/01/19 00:00 60 24 92 02/28/19 23:42 37.8 C H 63 20 116/47 L 97 Laboratory Results 03/01/19 03/01/19 Range/Units 05:24 05:24 WBC 10.02 (4.8-10.8) K/uL RBC 3.21 L (4.2-5.4) M/uL Hgb 9.3 L (12.0-16.0) g/dL Hct 28.8 L (37-47) % MCV 89.7 (80-100) fL MCH 29.0 (25-34) pg MCHC 32.3 (32-36) g/dL RDW Std Deviation 57.5 H (36.4-46.3) fL RDW Coeff of Kiana 17.5 H (11.5-14.5) % Plt Count 226 (130-400) K/uL MPV 9.1 (7.4-10.4) fL Sodium 139 (136-145) mmol/L Potassium 4.7 (3.5-5.1) mmol/L Chloride 102 (98-107) mmol/L Carbon Dioxide 30 (21-32) mmol/L Anion Gap 7.0 (3-11) BUN 34 H (7-18) mg/dl Creatinine 1.03 (0.6-1.2) mg/dl Est Cr Clr Drug Dosing 34.3 ml/min Est GFR ( Amer) 62.0 Est GFR (Non-Af Amer) 53.5 BUN/Creatinine Ratio 33.3 H (10-20) Glucose 112 H (70-99) mg/dl Calcium 9.0 (8.5-10.1) mg/dl Magnesium 2.0 (1.8-2.4) mg/dl (1) CAD (coronary artery disease) Associated angina: without angina Coronary Disease-Associated Artery/Lesion type: [place] artery [place] vs. transplanted heart: [place] heart Qualified Code(s): I25.10 - Atherosclerotic heart disease of [place] coronary artery without angina pectoris (2) Atrial fibrillation Atrial fibrillation type: chronic Qualified Code(s): I48.2 - Chronic atrial fibrillation (3) Iron deficiency anemia Iron deficiency anemia type: unspecified iron deficiency Qualified Code(s): D50.9 - Iron deficiency anemia, unspecified (4) COPD (chronic obstructive pulmonary disease) COPD type: unspecified COPD Qualified Code(s): J44.9 - Chronic obstructive pulmonary disease, unspecified (5) Hypertension Hypertension type: essential hypertension Qualified Code(s): I10 - Essential (primary) hypertension
[2019-03-01] MEDS ORDERED: MoRPHine SULFATE 5 MG/0.25 ML UDP PO PRN (16:17)
[2019-03-01] MEDS ORDERED: MoRPHine SULFATE 5 MG/0.25 ML UDP ONE (16:32)
[2019-03-01] MEDS ORDERED: MoRPHine SULFATE 2 MG/ML CARP IV STA (18:39)
[2019-03-01] MEDS ORDERED: FUROSEMIDE 40 MG/4 ML VIAL IV STA (18:45)
--- NOTE | 2019-03-01 19:13 | XRay Report ---
XR chest 1V portable HISTORY: Shortness of breath. COMPARISON: Chest 02/28/2019. FINDINGS: Mild interstitial pulmonary edema, trace bilateral pleural effusions, and cardiomegaly are not significantly changed. No Pneumothorax. Left-sided pacemaker/defibrillator. No new focal lung con solidations. IMPRESSION: No change in the mild interstitial pulmonary edema and trace bilateral pleural effusions. Electronically signed by: Alverto Pereira M.D. 03/01/2019 7:12 PM
[2019-03-01] MEDS ORDERED: MoRPHine SULFATE 2 MG/ML CARP IV PRN (20:08)
[2019-03-01] MEDS ORDERED: CARVEDILOL 6.25 MG TAB PO SCH (21:00)
[2019-03-01] MEDS ORDERED: ATROPINE SULFATE 1% OP SOLN 2 ML BTL PO PRN (21:55)
[2019-03-01] MEDS: ASPIRIN 81 MG ECTAB PO SCH (22:07)
[2019-03-01] MEDS: PRAMIPEXOLE DIHYDROCHLO 0.25 MG TAB PO SCH (22:08)
[2019-03-01] MEDS: ATORVASTATIN 40 MG TAB PO SCH (22:08)
[2019-03-01] MEDS: EZETIMIBE 10 MG TABLET PO SCH (22:09)
[2019-03-01] MEDS: SERTRALINE HCL 50 MG TABLET PO SCH (22:09)
[2019-03-02] MEDS: ALBUTEROL 0.083% NEBU SOLN 3 ML VIAL INH PRN (05:46)
[2019-03-02] MEDS: ALBUT/IPRATROP 3MG/0.5MG NEB 3 ML VIAL NEB SCH ×4 (07:23→19:04)
[2019-03-02] MEDS: FUROSEMIDE 40 MG in SYRINGE 0 ML IV SCH ×2 (08:54→16:43)
[2019-03-02] MEDS: LORazepam 0.5 MG/1 ML VIAL IV PRN ×2 (10:08→17:47)
--- NOTE | 2019-03-02 14:45 | Hospitalist Progress Note ---
Date of Service March 02, 2019 Assessment & Plan (1) Acute on chronic systolic heart failure: - Pt. has persistent SOB and O2 requirements have not improved; cannot tolerate diuresis well due to hypotension. - Most recent TTE showed EF 25% with ischemic cardiomyopathy. - Most recent CXR showed developing CHF, neg for PNA. - Weight has not decreased but does have net negative I/O's. - Lasix 40 mg IV BID (hold parameters for hypotension) - Palliative care consulted, discuss goals of care/code status - frequent re- admissions and poor prognosis in setting of CHF, COPD, etc. Has not responded well so far to treatment of CHF during this admission. patient would like to go home on hospice will maintain Lasix 40mg PO daily to keep lungs dry, provide respiratory relief (2) Acute on chronic respiratory failure with hypoxia: - O2 requirements above baseline -- 4L via NC. - Related to CHF exacerbation. - Previously on 2L via NC at home. patient already has home O2, can use for comfort (3) CAD (coronary artery disease): - No symptoms/signs of ACS during this admission. - Trop was mildly elevated at admission, now improved. - will stop aspirin, Plavix, statin, Coreg and Zetia since she will be on hospice (4) Elevated troponin: - Trop peaked at 1.520, trended down. - EKG was negative. (5) COPD (chronic obstructive pulmonary disease): - Stable, does not appear to be in acute exacerbation. - Continue home agents as prescribed - Arfomoterol and Budesonide. - Duonebs scheduled QID with Albuterol prn. her baseline COPD is very severe, will go on hospice (6) Hypertension: - Hold Lisinopril due to hypotension. - Decreased Coreg to 6.25 mg BID to prevent hypotension, allow for diuresis in setting of CHF. - Lasix 40 mg IV BID as noted above. may or may not continue Coreg on discharge, will see what her pressures and HR are like (7) Dyslipidemia: - stop statin and Zetia as she will be on hospice (8) Ischemic cardiomyopathy: - Most recent EF 25% with cardiac history. (9) Atrial fibrillation: - Currently V-paced; continue telemetry -- paced in the 60's over last 24 hours. - Continue Coreg - decreased to 6.25 mg BID. ICD turned off by rep on 03/02 (10) Iron deficiency anemia: - Monitor H/H daily; Transfusion for hgb <9 due to cardiac history. - Previous colonoscopy in 2012 was negative, only showed diverticulosis. - Upper GI series on 02/13/19 showed mild esophageal dysmotility and gastritis. - Hematology consulted during last admission, can follow up as outpatient. - Has also been evaluated by GI in the past -- intervention, including EGD, would be too high risk. - Continue PPI BID. - Received IV iron infusion on 02/27/19; has been non-responsive to PO iron in the past. (11) Chronic kidney disease, stage 3a: - Renally dose all meds. 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 - Continue aspirin/plavix/statin as prescribed. (13) Iliac artery aneurysm: - Noted on previous CT angiogram, was 2 cm. - Previously evaluated by vascular surgery. (14) Renal artery stenosis: - All 4 right renal arteries with stenosis. - Monitor renal function daily. (15) Anxiety: - Continue Sertraline and Ativan as prescribed. (16) Restless leg syndrome: - Continue Mirapex as prescribed. (17) Cachexia: - Hypoalbuminemia; poor appetite, weight loss at home. - Encourage PO intake. (18) DVT prophylaxis: - Heparin subQ q8hr. will go home on hospice in the morning Subjective patient breathing comfortably some anxiety this morning, relieved with Ativan using Moprhine PRN for comfort patient and request a hospital bed with hospice [employer] rep turned off the ICD discussed going home on hospice on 03/03, she agrees she is ready, says that they can take care of her Review of Systems Review of Systems: All systems reviewed & are unremarkable except as noted in HPI & below Respiratory: + cough and + dyspnea on exertion; no dyspnea Cardiovascular: no chest pain Gastrointestinal: no abdominal pain, no nausea, no vomiting, no constipation and no diarrhea/loose stools Psychiatric: + depression and + anxiety Physical Exam Constitutional: well developed and + thin; no acute distress Eyes: PERRL, conjunctivae normal, anicteric sclerae ENMT: external ear and nose normal, oropharynx normal Neck: trachea midline, no thyromegaly Respiratory: normal respiratory effort and + cough; no respiratory distress Auscultation: + diminished lung sounds; no wheezes Cardiovascular: Rate/Rhythm: regular rate; + abnormal rhythm (irregular irregular) Heart Sounds: normal S1 and normal S2; no murmur Extremities: no edema Gastrointestinal (Abdomen): normal bowel sounds, soft, nontender, no hepato splenomegaly Musculoskeletal: Head/Neck/Chest: normocephalic and head atraumatic Extremities: + abnormal strength (generalized weakness), + muscle atrophy, + cyanosis and + clubbing Skin: + turgor decreased; no rashes, no lesions and no wound Neurologic: patellar DTR's 2+ bilat, sensation intact and PERRL, EOMI, accommodation nl, no face palsy, no dysarthria Psychiatric: Orientation: alert and oriented x 3 Affect: + depressed affect Lymphatic: no cervical or axillary lymphadenopathy Results & Data Vital Signs (Past 12 Hours) Vital Signs Pulse Resp Pulse Ox 03/02/19 10:59 60 16 93 03/02/19 07:27 60 16 97 03/02/19 05:48 61 16 94 Medications Administered Current Inpatient Medications Acetaminophen (Tylenol) 650 mg PO Q4H PRN PRN Reason: Pain or Fever Stop: 03/28/19 07:50 Last Admin: 02/27/19 16:36 Dose: 650 mg Documented by: Albuterol (Ventolin 0.083% 2.5mg/3ml) 2.5 mg INH Q4 PRN PRN Reason: Shortness Of Breath Or Wheezing Stop: 03/28/19 07:50 Last Admin: 03/02/19 05:46 Dose: 2.5 mg Documented by: Albuterol (Duoneb) 3 ml NEB QIDR YOSHI Stop: 03/29/19 19:59 Last Admin: 03/02/19 14:53 Dose: 3 ml Documented by: Atropine Sulfate (Atropine Sulfate 1% Oph Soln) 2 drops PO Q3H PRN PRN Reason: secretions Stop: 03/31/19 21:54 Furosemide 40 mg/ Syringe 4 mls @ 4 mls/min IV BID17 [facility] Stop: 03/29/19 16:59 Last Admin: 03/02/19 08:54 Dose: 4 mls/min Documented by: Lorazepam (Ativan) 0.5 mg in 1 mls @ 1 mls/min IV Q4H PRN PRN Reason: Anxiety Stop: 03/31/19 21:54 Last Admin: 03/02/19 10:08 Dose: 1 mls/min Documented by: Morphine Sulfate (Morphine Sulfate) 2 mg IV Q2H PRN PRN Reason: shortness of breath Stop: 03/15/19 20:07 Last Admin: 03/02/19 12:44 Dose: 2 mg Documented by: Ondansetron HCl (Zofran) 4 mg PO Q6H PRN PRN Reason: nausea and vomiting Stop: 03/28/19 07:50 Prochlorperazine (Compazine) 10 mg PO Q6H PRN PRN Reason: nausea and vomiting Stop: 03/28/19 07:50 (1) CAD (coronary artery disease) Associated angina: without angina Coronary Disease-Associated Artery/Lesion type: solomon artery [place] vs. transplanted heart: solomon heart Qualified Code(s): I25.10 - Atherosclerotic heart disease of solomon coronary artery without angina pectoris (2) Atrial fibrillation Atrial fibrillation type: chronic Qualified Code(s): I48.2 - Chronic atrial fibrillation (3) Iron deficiency anemia Iron deficiency anemia type: unspecified iron deficiency Qualified Code(s): D50.9 - Iron deficiency anemia, unspecified (4) COPD (chronic obstructive pulmonary disease) COPD type: unspecified COPD Qualified Code(s): J44.9 - Chronic obstructive pulmonary disease, unspecified (5) Hypertension Hypertension type: essential hypertension Qualified Code(s): I10 - Essential (primary) hypertension
[2019-03-03] MEDS: ALBUT/IPRATROP 3MG/0.5MG NEB 3 ML VIAL NEB SCH ×3 (00:14→11:22)
[2019-03-03] MEDS: LORazepam 0.5 MG/1 ML VIAL IV PRN ×3 (00:54→09:52)
[2019-03-03] MEDS: ACETAMINOPHEN 325 MG TAB PO PRN ×2 (05:04→10:24)
[2019-03-03] MEDS: FUROSEMIDE 40 MG in SYRINGE 0 ML IV SCH (08:08)
--- NOTE | 2019-03-03 13:31 | Palliative Care Consultation ---
Date of Consultation March 03, 2019 Assessment & Plan (1) Goals of care, counseling/discussion: -73 year old female with advanced COPD on home oxygen therapy, anxiety, chronic CHF, ischemic cardiomyopathy with EF 20%, and others, presented with acute on chronic respiratory failure 2/2 CHF exacerbation and COPD. Patient is known to the palliative care service. She has been declining quite rapidly in the last few months. Previously, patient was wanting to continue coming to the hospital when indicated, and she was not ready for hospice. Now, during this admission, patient and her family have decided to take patient home on hospice. Patient is SOB at rest at all times, is becoming weaker, no longer able to care for herself at all. Not eating well, increased confusion. Wears oxygen 29/04. Given persistent worsening of symptoms and progression of disease despite treatment, prognosis is quite poor. -Patient and her seen this morning at 1000 in room 406. Patient appears weak, she is confused this morning. Weak and cachectic. -patient's states that the plan is for her to return home today on hospice. He states that he "wants whatever she wants," in regards to goals of care. Patient's two children are local and are aware of the plan. The children are coming today to give patient a ride home. -Recommend Roxanol 5mg PO/Sl Q2h PRN for SOB/pain and lorazepam 0.5mg SL Q4h PRN agitation/anxiety. -Case management following and set patient up with [facility] hospice. -Please contact me with any further palliative care needs. -PPS 30% (2) Acute on chronic systolic heart failure: (3) Acute on chronic respiratory failure with hypoxia: (4) COPD (chronic obstructive pulmonary disease): COPD type: unspecified COPD Qualified Code(s): J44.9 - Chronic obstructive pulmonary disease, unspecified (5) Ischemic cardiomyopathy: History of Present Illness Attending Physician: Kristopher Rayo DO History of Present Illness This 73 year old female with advanced COPD on home oxygen therapy, anxiety, chronic CHF, ischemic cardiomyopathy with EF 20%, and others, presented with acute on chronic respiratory failure 2/2 CHF exacerbation and COPD. Patient is known to the palliative care service. She has been declining quite rapidly in the last few months. Previously, patient was wanting to continue coming to the hospital when indicated, and she was not ready for hospice. Now, during this admission, patient and her family have decided to take patient home on hospice. Patient is SOB at rest at all times, is becoming weaker, no longer able to care for herself at all. Not eating well, increased confusion. Wears oxygen 29/04. Given persistent worsening of symptoms and progression of disease despite treatment, prognosis is quite poor. Thank you kindly for this consult. I will follow. Allergies Allergy/AdvReac Type Severity Reaction Status Date / Time Sulfa (Sulfonamide Allergy Intermediate RASH Verified 02/26/19 04:34 Antibiotics) morphine AdvReac Mild GI SYMPTOMS Verified 02/26/19 04:34 Home Medications Home Medications Medication Instructions Recorded Confirmed Type albuterol sulfate 2.5 mg INHALATION Q4 PRN 10/24/18 02/26/19 History fluticasone propionate 2 spray INTRANASAL QAM PRN 10/24/18 02/26/19 History pramipexole 0.25 mg PO HS 10/24/18 02/26/19 History sertraline 50 mg PO HS 10/24/18 02/26/19 History sodium chloride [[place] Nasal] 1 spray INTRANASAL DIRECTED PRN 10/24/18 02/26/19 History ondansetron HCl [Zofran] 4 mg PO Q6H PRN #10 tab 10/29/18 02/26/19 Rx acetaminophen [Tylenol Extra 500 mg PO Q6H PRN 12/19/18 02/26/19 History Strength] Brovana 15 mcg INHALATION BIDR #120 ml 12/29/18 02/26/19 Rx budesonide 0.5 mg NEB BIDR #1 ml 01/14/19 02/26/19 Rx furosemide [Lasix] 40 mg PO BID #0 tab 01/14/19 02/26/19 Rx prochlorperazine maleate 10 mg PO Q6H PRN #20 tab 01/25/19 02/26/19 Rx [Compazine] metoclopramide HCl 5 mg PO AC 02/10/19 02/26/19 History albuterol sulfate [Ventolin HFA] 1 - 2 puff INHALATION Q4 PRN 02/26/19 02/26/19 History carvedilol 18.75 mg PO BID 02/26/19 02/26/19 History guaifenesin [Mucinex] 600 mg PO Q12 PRN 02/26/19 02/26/19 History atropine 2 drp PO Q3H PRN #5 ml 03/02/19 Rx lorazepam 0.5 mg PO Q4H PRN #30 tab 03/02/19 Rx morphine concentrate 5 mg PO Q6H PRN #30 ml 03/03/19 Rx Patient History Medical History Iliac artery aneurysm Renal artery stenosis DVT prophylaxis UTI (urinary tract infection) due to Enterococcus Mesenteric artery stenosis (Acute) Restless leg syndrome COPD exacerbation (Acute) Cachexia Demand ischemia Abdominal pain Chronic kidney disease, stage 3a Iron deficiency anemia Chronic systolic (congestive) heart failure Acute on chronic respiratory failure with hypoxia and hypercapnia CAD (coronary artery disease) s/p [place] in 1999 Atrial fibrillation Ischemic cardiomyopathy EF 25-30% Dyslipidemia Hypertension Anxiety COPD (chronic obstructive pulmonary disease) (Acute) Hypoxia Nausea (Acute) Pulmonary congestion (Acute) Non compliance w medication regimen Emphysema of lung Syncope AICD malfunction Respiratory distress Ambulatory dysfunction (Acute) Elevated troponin Influenza A Left lower lobe pneumonia Weakness (Acute) GIB (gastrointestinal bleeding) Reflux esophagitis SAH (subarachnoid hemorrhage) Surgical History S/P carotid endarterectomy S/P carpal tunnel release S/P hysterectomy S/P implantation of automatic cardioverter/defibrillator (AICD) Social History Preferred Language: Estonian Communication Ability: Effective Visual Impairment: No Limitations Hearing Ability: Normal Electrotherapist Required: No Beliefs That Will Affect Care: None marital status: Current Living Situation: Spouse Current Living Situation Comment: lives in [place]; has 3 children current occupational status: retired Other Information That Helps Us Care for You: 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[employer], 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) Feels Safe at Home: Yes Safety Concerns: Feels Safe At This Time Smoking Status: Former smoker Tobacco Type: cigarettes Cigarettes Per Day: quit 1 month ago; smoked up to 1ppd in the past; started in teenage years Second Hand Exposure: No Hx Alcohol Use: No Hx Substance Use: No Review of Systems Review of Systems: Unobtainable due to cognitive status Physical Exam Constitutional: + ill appearing and + cachectic ENMT: external ear and nose normal, oropharynx normal Neck: normal visual inspection Respiratory: + labored breathing Auscultation: + diminished lung sounds Cardiovascular: Rate/Rhythm: regular rate and regular rhythm Extremities: no edema Gastrointestinal (Abdomen): Inspection/Auscultation: abdomen normal to inspection and normal bowel sounds; abdomen not distended Percussion/Palpation: abdomen soft; abdomen nontender Skin: left foot bruising Neurologic: awake and + confused Psychiatric: Orientation: alert, oriented to person and oriented to place; + not oriented to time Results & Data Vital Signs (Past 12 Hours) Vital Signs Temp Pulse Pulse Pulse Resp BP Pulse Ox 03/03/19 12:15 37.1 C 60 58 L 67 20 103/57 L 96 03/03/19 11:22 60 20 96 03/03/19 08:08 61 103/57 L 03/03/19 07:14 61 18 95 Time Spent Midlevel 50 minutes with >50% of time spent at bedside with patient and discussing plan and GOC.
--- NOTE | 2019-03-03 14:58 | Discharge Summary ---
Date of Service March 03, 2019 Admission HPI Per Admitting Provider 73 y/o F Hx advanced COPD, systolic CHF 25%, pacer/AICD, CAD, AF, HTN, HLD, anxiety. The pt is dependent on 4-5L 02. 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 She denies CP a productive cough or fevers. She was hypoxic on arrival, exhibiting a degree of respiratory distress and meriting treatment with a BiPAP. She has been admitted multiple times this year for respiratory issues related to both COPD and CHF and was recently admitted with abdominal pain related to mesenteric ischemia. Initial labs are notable for an elevated troponin. The elevation is chronic but is well above baseline. PMH: 1) CAD - [place] 1999 2) Chronic AF 3) History of GI bleed 4) COPD - dependent on 4-5 L home 02 5) AICD/pacer 6) History of subarachnoid hemorrhage 7) HTN 8) HLD 9) Anxiety 10) Mesenteric ischemia 11) Chronic systolic CHF - EF 25% Surgical: 1) Carotid endarterectomy 2) Hysterectomy 3) Carpal tunnel release 4) AICD/pacer Social: Does not currently smoke or drink - extensive smoking history Family: Both parents du to complications of CHF Principal Diagnosis Acute on chronic respiratory failure Discharge Exam Constitutional well developed and + thin; no acute distress Eyes PERRL, conjunctivae normal, anicteric sclerae ENMT external ear and nose normal, oropharynx normal Neck trachea midline, no thyromegaly Respiratory normal respiratory effort and + cough; no respiratory distress Auscultation: + diminished lung sounds; no wheezes Cardiovascular Rate/Rhythm: regular rate; + abnormal rhythm (irregular irregular) Heart Sounds: normal S1 and normal S2; no murmur Extremities: no edema Gastrointestinal (Abdomen) normal bowel sounds, soft, nontender, no hepatosplenomegaly Musculoskeletal Head/Neck/Chest: normocephalic and head atraumatic Extremities: + abnormal strength (generalized weakness), + muscle atrophy, + cyanosis and + clubbing Skin + turgor decreased; no rashes, no lesions and no wound Neurologic patellar DTR's 2+ bilat, sensation intact and PERRL, EOMI, accommodation nl, no face palsy, no dysarthria Psychiatric Orientation: alert and oriented x 3 Affect: + depressed affect Lymphatic no cervical or axillary lymphadenopathy Discharge Data Allergies Allergy/AdvReac Type Severity Reaction Status Date / Time Sulfa (Sulfonamide Allergy Intermediate RASH Verified 02/26/19 04:34 Antibiotics) morphine AdvReac Mild GI SYMPTOMS Verified 02/26/19 04:34 Consultations 02/26/19 05:26 ED Decision to Admit Stat 03/01/19 09:23 Consult Palliative Care Routine Hospital Course (1) Acute on chronic systolic heart failure: - Pt. has persistent SOB and O2 requirements have not improved; cannot tolerate diuresis well due to hypotension. - Most recent TTE showed EF 25% with ischemic cardiomyopathy. - Most recent CXR showed developing CHF, neg for PNA. - Weight has not decreased but does have net negative I/O's. - Lasix 40 mg IV BID (hold parameters for hypotension) - Palliative care consulted, discuss goals of care/code status - frequent re- admissions and poor prognosis in setting of CHF, COPD, etc. Has not responded well so far to treatment of CHF during this admission. patient would like to go home on hospice will maintain Lasix 40mg PO daily to keep lungs dry, provide respiratory relief (2) Acute on chronic respiratory failure with hypoxia: - O2 requirements above baseline -- 4L - 5L via NC. - Related to CHF exacerbation. - Previously on 2L via NC at home. patient already has home O2, can use for comfort will transition to hospice patient provided with liquid Morphine 10mg PO q3 PRN for dyspne discussed that dose could be increased to 20mg and frequency could also be adjusted for her comfort Ativan also prescribed for anxiety about work of breathing Atropine drops prescribed for secretions (3) CAD (coronary artery disease): - No symptoms/signs of ACS during this admission. - Trop was mildly elevated at admission, now improved. - will stop aspirin, Plavix, statin, Coreg and Zetia since she will be on hospice (4) Elevated troponin: - Trop peaked at 1.520, trended down. - EKG was negative. (5) COPD (chronic obstructive pulmonary disease): - Stable, does not appear to be in acute exacerbation. - Continue home agents as prescribed - Arfomoterol and Budesonide. - Duonebs scheduled QID with Albuterol prn. her baseline COPD is very severe, will go on hospice can continue to use the inhalers for comfort but will likely reach the point that she won't have strength to take them (6) Hypertension: - Hold Lisinopril due to hypotension. - Decreased Coreg to 6.25 mg BID to prevent hypotension, allow for diuresis in setting of CHF. - Lasix 40 mg IV BID as noted above. may or may not continue Coreg on discharge, will see what her pressures and HR are like (7) Dyslipidemia: - stop statin and Zetia as she will be on hospice (8) Ischemic cardiomyopathy: - Most recent EF 25% with cardiac history. (9) Atrial fibrillation: - Currently V-paced; continue telemetry -- paced in the 60's over last 24 hours. - Continue Coreg - decreased to 6.25 mg BID. ICD turned off by rep on 03/02 (10) Iron deficiency anemia: - Monitor H/H daily; Transfusion for hgb <9 due to cardiac history. - Previous colonoscopy in 2012 was negative, only showed diverticulosis. - Upper GI series on 02/13/19 showed mild esophageal dysmotility and gastritis. - Hematology consulted during last admission, can follow up as outpatient. - Has also been evaluated by GI in the past -- intervention, including EGD, would be too high risk. - Continue PPI BID. - Received IV iron infusion on 02/27/19; has been non-responsive to PO iron in the past. (11) Chronic kidney disease, stage 3a: - Renally dose all meds. 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 - Continue aspirin/plavix/statin as prescribed. (13) Iliac artery aneurysm: - Noted on previous CT angiogram, was 2 cm. - Previously evaluated by vascular surgery. (14) Renal artery stenosis: - All 4 right renal arteries with stenosis. - Monitor renal function daily. (15) Anxiety: - Continue Sertraline and Ativan as prescribed. (16) Restless leg syndrome: - Continue Mirapex as prescribed. (17) Cachexia: - Hypoalbuminemia; poor appetite, weight loss at home. - Encourage PO intake. can eat anything for comfort, plan for hospice care (18) DVT prophylaxis: - Heparin subQ q8hr. Long discussion with patient and her at the bedside. Discussed with patient's daughter over the phone. Explained that hospice will visit once she is at home. Plan for her to be on the cough, no exertion, keep mckeon for comfort Use the Morphine and Ativan for relief of symptoms Discussed that she can always return to hospital if she cannot be comfortable at home 45 minutes spent with patient and her family and with case management planning discharge Total Time Total Time Spent Total Time Spent (In Minutes): 45 minutes Total Time Includes: Examination of the Patient, Discharge Planning, Medication Reconciliation and Other (discussing with case management and hospice services, discussing with family members) Discharge Plan Discharge Items Patient Disposition: Hospice - Home Reason For Visit: CHF EXACERBATION Discharge Diagnosis: Acute on chronic heart failure End stage COPD Home hospice Condition: Fair Discharge Goals: Decrease discomfort and Specific goals Specific Goals: hospice/palliative care Activity: Per 'Additional Instructions' section Activity Comment: rest in bed Bathing: No limitations Non-emergency contact: Primary Care Provider Call non-emergency contact if: you have any medication questions, your symptoms worsen and your pain is not controlled Follow-up/Referrals: PCP,NO [Primary Care Provider] - Diet: Regular Diet Comment: eat for comfort, whatever you want to eat Addtl Provider Instructions: Medications: stopped several medications as these are not necessary for comfort, continue on other medications to help with breathing, nausea, sleeping etc - Morphine: liquid morphine, can use 0.25mL by mouth for any shortness of breath, can use every three hours if still having shortness of breath can increase to 0.5mL and can always increase the frequency up to every hour, this is strictly to provide comfort - Ativan: renewed prescription, increased frequency up to every 4 hours for any anxiety or difficulty breathing - Atropine: use these drops as needed for heavy secretions, wet breath sounds, strictly comfort measure Will discharge home to hospice Home nursing agency will meet with you tomorrow and transition you out of home nursing and into hospice care they may cut back on your medications even further You have heart failure, COPD (end stage) and your breathing will likely get worse over the next days to weeks goal of care now is for comfort, treat your symptoms use the Morphine and Ativan for this intended purpose will keep you on Lasix to try to keep fluid off and keep lungs dry, to make breathing easier will keep you on nebulizers and inhalers to support lung function and try to limit shortness of breath over time, hospice may recommend stopping these medications as well if you have any concerns about medications and comfort, do not hesitate to contact Home Nursing Agency Will keep mckeon catheter in place for your comfort so you are not getting out of bed, no incontinence Diet: eat whatever you want for pleasure/comfort Prescriptions: New atropine 1 % Drops 2 drp PO Q3H PRN (Reason: secretions) Qty: 5 RF: 0 morphine concentrate 100 mg/5 mL (20 mg/mL) solution 5 mg PO Q6H PRN (Reason: pain) Qty: 30 RF: 0 Continued acetaminophen [Tylenol Extra Strength] 500 mg Tablet 500 mg PO Q6H PRN (Reason: Pain) RF: 0 Brovana 15 mcg/2 mL Solution For Nebulization 15 mcg Inhalation BIDR Qty: 120 RF: 3 budesonide 0.5 mg/2 mL Suspension For Nebulization 0.5 mg NEB BIDR Qty: 1 RF: 0 furosemide [Lasix] 40 mg Tablet 40 mg PO BID Qty: 0 RF: 0 albuterol sulfate 2.5 mg /3 mL (0.083 %) Solution For Nebulization 2.5 mg INHALATION Q4 PRN (Reason: Shortness Of Breath Or Wheezing) RF: 0 pramipexole 0.25 mg Tablet 0.25 mg PO HS RF: 0 fluticasone propionate 50 mcg/actuation [place],Suspension 2 spray INTRANASAL QAM PRN (Reason: Congestion) RF: 0 sertraline 50 mg Tablet 50 mg PO HS RF: 0 sodium chloride [[place] Nasal] 0.65 % Aerosol,[place] 1 spray INTRANASAL DIRECTED PRN (Reason: Nasal Congestion) RF: 0 ondansetron HCl [Zofran] 4 mg tablet 4 mg PO Q6H PRN (Reason: nausea and vomiting) Qty: 10 RF: 0 prochlorperazine maleate [Compazine] 10 mg tablet 10 mg PO Q6H PRN (Reason: nausea and vomiting) Qty: 20 RF: 0 metoclopramide HCl 5 mg Tablet 5 mg PO AC RF: 0 carvedilol 12.5 mg tablet 18.75 mg PO BID RF: 0 guaifenesin [Mucinex] 600 mg tablet extended release 12hr 600 mg PO Q12 PRN (Reason: Congestion) RF: 0 albuterol sulfate [Ventolin HFA] 90 mcg/actuation HFA aerosol inhaler 1 - 2 puff inhalation Q4 PRN (Reason: Shortness Of Breath Or Wheezing) RF: 0 Changed lorazepam 0.5 mg tablet 0.5 mg PO Q4H PRN (Reason: anxiety) Qty: 30 RF: 0 Discontinued pantoprazole 40 mg Tablet,Delayed Release (Dr/Ec) 40 mg PO BID Qty: 60 RF: 2 atorvastatin 80 mg Tablet 80 mg PO HS RF: 0 clopidogrel 75 mg Tablet 75 mg PO QAM RF: 0 aspirin [Aspir-81] 81 mg Tablet,Delayed Release (Dr/Ec) 81 mg PO HS RF: 0 potassium chloride 20 mEq Tablet,Er Particles/Crystals 20 meq PO QAM RF: 0 ezetimibe 10 mg Tablet 10 mg PO HS RF: 0 lisinopril 2.5 mg Tablet 2.5 mg PO DAILY RF: 0 Stand-Alone Forms: [facility] Discharge Orders: Discharge Order (Routine); Ordered 03/03/19 Ordered By: Kristopher Rayo Admission Data Admit Date/Time: 02/26/19 06:09 Attending Provider: Kristopher Rayo Admit Provider: Roderick Estevez Primary Care Provider: PCP,NO Other Providers: Home,Nursing Agency ; Roderick Estevez ; Laura Wesley Service: Medical Other Interventions: Discharge Summary Assessment (RN) Last Done: 03/03/19 12:15 DC Date/Time DO NOT enter until pt leaves facility: 03/03/19 13:11
== END 2019-03-03 13:11 | disposition hospice, home (50) | DRG 291 ==
LOC: ED 03:53 → 2S 06:09 → SUATTDRO 06:09 → 2S 07:23 → 4E 03-01 20:03
DX: I25.5 Ischemic cardiomyopathy; I13.0 Hypertensive heart and chronic kidney disease with heart failure and stage 1 through stage 4 chronic kidney disease, or unspecified chronic kidney disease; I25.10 Atherosclerotic heart disease of native coronary artery without angina pectoris; I48.91 Unspecified atrial fibrillation; Z79.82 Long term (current) use of aspirin; E78.5 Hyperlipidemia, unspecified; J96.21 Acute and chronic respiratory failure with hypoxia; F41.9 Anxiety disorder, unspecified; J44.9 Chronic obstructive pulmonary disease, unspecified; R64 Cachexia; Z68.1 Body mass index [BMI] 19.9 or less, adult; K55.1 Chronic vascular disorders of intestine; D50.9 Iron deficiency anemia, unspecified; I50.23 Acute on chronic systolic (congestive) heart failure; Z66 Do not resuscitate; Z51.5 Encounter for palliative care; Z87.891 Personal history of nicotine dependence; N18.3 Chronic kidney disease, stage 3 (moderate); Z95.0 Presence of cardiac pacemaker; Z79.899 Other long term (current) drug therapy; Z99.81 Dependence on supplemental oxygen

== ENCOUNTER 2019-04-18 21:50 | Inpatient (IN) ==
[2019-04-18 22:36] LABS: Basophils # (auto) 0.02 K/uL (0-0.2); Basophils % (auto) 0.3 %; Eosinophils # (auto) 0.07 K/uL (0-0.5); Eosinophils % (auto) 0.9 %; Hematocrit (blood only) 38.4 % (37-47); Hemoglobin 12.3 g/dL (12.0-16.0); Immature Granulocytes # (auto) 0.02 K/uL (0.00-0.02); Immature Granulocytes % (auto) 0.3 %; Lymphocytes # (auto) 1.25 K/uL (1.2-3.4); Lymphocytes % (auto) 16.7 %; Mean Corpuscular Volume 92.8 fL (80-100); Mean Platelet Volume 10.6 fL (7.4-10.4); Monocytes # (auto) 0.69 K/uL (0.11-0.59); Monocytes % (auto) 9.2 %; Neutrophils # (auto) 5.43 K/uL (1.4-6.5); Neutrophils % (auto) 72.6 %; Platelet Count 170 K/uL (130-400); RDW Coefficient of Variation 18.4 % (11.5-14.5); RDW Standard Deviation 61.6 fL (36.4-46.3); Red Blood Count 4.14 M/uL (4.2-5.4); White Blood Count 7.48 K/uL (4.8-10.8)
[2019-04-18 22:44] LABS: Alanine Aminotransferase 29 U/L (12-78); Albumin Level 3.4 gm/dl (3.4-5.0); Aspartate Aminotransferase 22 U/L (15-37); BUN Creatinine Ratio 16.7 (10-20); Blood Urea Nitrogen 18 mg/dl (7-18); Calcium 9.4 mg/dl (8.5-10.1); Carbon Dioxide 29 mmol/L (21-32); Chloride 97 mmol/L (98-107); Creatinine Clr Calc Pharmacy 36.6 ml/min; Est GFR (African American) 60.2; Est GFR (Non-African American) 51.9; Glucose 160 mg/dl (70-99); Potassium 4.4 mmol/L (3.5-5.1); Sodium 134 mmol/L (136-145)
[2019-04-18 22:51] LABS: INR 1.4 (0.9-1.1); Partial Thromboplastin Ratio 1.1; Partial Thromboplastin Time 30.1 Seconds (21.0-31.0); Prothrombin Time 14.2 Seconds (9.0-12.0)
[2019-04-18 22:59] LABS: Albumin Globulin Ratio 0.9 (0.9-2); Alkaline Phosphatase 84 U/L (45-117); Globulin 3.8 gm/dl (2.5-4.0); NT Pro B Type Natriuretic Pept > 35000 pg/ml (0-900); Total Protein 7.2 gm/dl (6.4-8.2); Troponin I 0.148 ng/ml (0-0.045)
[2019-04-18 23:18] LABS: Base Excess VBG 2.9 mEq/L; HCO3 VBG 29 mmol/L; PCO2 VBG 55 mmHg (38-50); PO2 VBG 19 mmHg; pH VBG 7.35 (7.36-7.41)
[2019-04-18 23:20] LABS: Oxygen Saturation VBG < 60.0 %
[2019-04-19] MEDS ORDERED: FUROSEMIDE 40 MG/4 ML VIAL IV STA ×2 (01:41→14:12)
--- NOTE | 2019-04-19 01:55 | History & Physical Report ---
Date of Service April 19, 2019 Assessment & Plan (1) Acute respiratory distress: 73 y/o F Hx advanced COPD, systolic CHF 25%, pacer/AICD, CAD, AF, HTN, HLD, anxiety. The pt is dependent on 4-5L 02. Hypoxic, delirious on arrival, exhibiting a degree of respiratory distress and meriting treatment with a BiPAP. She has been admitted multiple times this year for respiratory issues related to both COPD and CHF and mesenteric ischemia. Recently admitted for respiratory distress and sent home on hospice. Patient has been home just today since coming home from [facility]. She is gotten increasingly delirious, at times saying she wants to go home, saying that she wants to go to the hospital and actually called 911 prior to arrival here without the family knowing. Patient lives with her . Patient's daughter is at the bedside and adds that care for her has grown increasingly difficult given her weakness and increasing confusion. Initial labs are notable for an acutely elevated troponin from her baseline, as well as elevated BNP >42000 and elevated INR. Given 60 mg IV Lasix. #Dyspnea 2/2 CHF exacerbation -on BiPAP -continue lasix 20 daily (had been previously off her lasix while on hospice this past week) -I/O, mckeon in place -plan discussed with daughter appears to be to continue hospice, but to address pt's edema and shortness of breath at this time. Will not restart medications previously discontinued by hospice (BB, WALTER). #Dysuria -urine cx pending -discussed r/b of removing/keeping mckeon. Decision made to control pain, and treat if infection given limited ambulation issues #Hospice patient as of 2018. -was previously on BB, ASA, plavix and statin, lisinopril. -pt's dyspnea is likely related to her cardiomyopathy and CHF - will consult palliative to continue input in this regard #delirium in setting of end stage COPD and CHF -also compounding home hospice issues - see palliative consult as above -continue pain control and ativan PRN #elevated INR -no s/s of acute bleeding, ok to follow, but will avoid anticoagulation at this time FEN/GI: avoid fluids. heart healthy, fluid restriction. DVT ppx: chemically contraindicated given elev INR as above. Pt would likely not tolerate mechanical SCDs. CODE STATUS: DNR/DNI as discussed with pt's daughter at bedside. DISPO: med/surg. Family appears to have care issues at home given pt's worsening confusion. DC planning ordered, appreciate assistance. (2) Elevated troponin: (3) CHF (congestive heart failure): (4) Acute on chronic respiratory failure with hypoxia: (5) Ischemic cardiomyopathy: (6) Anxiety: History of Present Illness Chief Complaint: Shortness of breath, edema Primary Care Provider: Edy Ornelas MD 73 y/o F Hx advanced COPD, systolic CHF 25%, pacer/AICD, CAD, AF, HTN, HLD, anxiety. The pt is dependent on 4-5L 02. Hypoxic, delirious on arrival, exhibiting a degree of respiratory distress and meriting treatment with a BiPAP. She has been admitted multiple times this year for respiratory issues related to both COPD and CHF and mesenteric ischemia. Recently admitted for respiratory distress and sent home on hospice. Patient has been home just today since coming home from [facility]. She is gotten increasingly delirious, at times saying she wants to go home, saying that she wants to go to the hospital and actually called 911 prior to arrival here without the family knowing. Patient lives with her . Patient's daughter is at the bedside and adds that care for her has grown increasingly difficult given her weakness and increasing confusion. Initial labs are notable for an acutely elevated troponin from her baseline, as well as elevated BNP >80546 and elevated INR. Given 60 mg IV Lasix. PMH: 1) CAD - SD 1999 2) Chronic AF 3) History of GI bleed 4) COPD - dependent on 4-5 L home 02 5) AICD/pacer 6) History of subarachnoid hemorrhage 7) HTN 8) HLD 9) Anxiety 10) Mesenteric ischemia 11) Chronic systolic CHF - EF 25% Surgical: 1) Carotid endarterectomy 2) Hysterectomy 3) Carpal tunnel release 4) AICD/pacer Social: Does not currently smoke or drink - extensive smoking history Family: Both parents du to complications of CHF Allergies Allergy/AdvReac Type Severity Reaction Status Date / Time Sulfa (Sulfonamide Allergy Intermediate RASH Verified 04/03/19 07:24 Antibiotics) morphine AdvReac Mild GI SYMPTOMS Verified 04/03/19 07:24 Home Medications Home Medications Medication Instructions Recorded Confirmed Type ondansetron HCl [Zofran] 4 mg PO Q6H PRN #10 tab 10/29/18 04/18/19 Rx Brovana 15 mcg INHALATION BIDR #120 ml 12/29/18 04/18/19 Rx prochlorperazine maleate 10 mg PO Q6H PRN #20 tab 01/25/19 04/18/19 Rx [Compazine] albuterol sulfate [Ventolin HFA] 1 - 2 puff INHALATION Q4 PRN 02/26/19 04/18/19 History lorazepam 0.5 mg PO Q4H PRN #30 tab 03/02/19 04/18/19 Rx morphine concentrate 5 mg PO Q6H PRN #30 ml 03/03/19 04/18/19 Rx furosemide [Lasix] 20 mg PO DAILY 04/18/19 04/18/19 History ipratropium-albuterol [Combivent 1 puff INHALATION TID 04/18/19 04/18/19 History Respimat] Past Med/Surg History Medical History Iliac artery aneurysm Renal artery stenosis DVT prophylaxis UTI (urinary tract infection) due to Enterococcus Mesenteric artery stenosis (Acute) Restless leg syndrome COPD exacerbation (Acute) Cachexia Demand ischemia Abdominal pain Chronic kidney disease, stage 3a Iron deficiency anemia Chronic systolic (congestive) heart failure Acute on chronic respiratory failure with hypoxia and hypercapnia CAD (coronary artery disease) s/p SD in 1999 Atrial fibrillation Ischemic cardiomyopathy EF 25-30% Dyslipidemia Hypertension Anxiety COPD (chronic obstructive pulmonary disease) (Acute) Hypoxia Nausea (Acute) Pulmonary congestion (Acute) Non compliance w medication regimen Emphysema of lung Syncope AICD malfunction Respiratory distress Ambulatory dysfunction (Acute) Elevated troponin Influenza A Left lower lobe pneumonia Weakness (Acute) GIB (gastrointestinal bleeding) Reflux esophagitis SAH (subarachnoid hemorrhage) Surgical History S/P carotid endarterectomy S/P carpal tunnel release S/P hysterectomy S/P implantation of automatic cardioverter/defibrillator (AICD) Family History Father , about age 80 Coronary heart disease from acute SD Mother , age 75 Coronary heart disease had CABG; ultimately from SD Other Heart disease Social History Preferred Language: Azeri Communication Ability: Impaired Visual Impairment: No Limitations Hearing Ability: Normal Powder Nipper Required: No Beliefs That Will Affect Care: None marital status: Current Living Situation: Spouse Current Living Situation Comment: lives in [place]; has 3 children current occupational status: retired Other Information That Helps Us Care for You: 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 Patient's daughter states she saw birds in the room. She does endorse dysuria and pain where the Mckeon is in her vaginal area) Physical Exam Physical Exam: Vitals noted and within normal limits with the exception of hypertension GENERAL: Awake, BiPAP in place. Somewhat delirious. In mild distress. HENT: Normocephalic, atraumatic. BiPAP in place.. Mucus membranes appear dry. EYES: Normal conjunctiva. Sclera non-icteric. EOMI. NECK: Supple. Full range of motion. RESPIRATORY: Rhonchi heard at the bases bilaterally. CARDIAC: Regular rate, normal rhythm. Extremities warm and well perfused, ABDOMEN: Soft, non-distended. No tenderness to palpation in all four quadrants. No rebound or guarding. No masses. Bowel sounds are normal. LOWER EXTREMITIES: Inspection of calves reveal equal size bilaterally. They are non-tender. 3+ edema to the knees No discoloration. NEURO: No gross focal motor deficits noted. Sensation in tact. CN II-XII grossly in tact. . SKIN: No jaundice noted. PSYCH: Appropriate mood and affect. Appears to be delirious. Mckeon draining dark brown tinged urine, no clots visible. Exam as done by Kimmy Kenny MD, Harness Worker. Results & Data Vital Signs (Past 12 Hours) Vital Signs Temp Pulse Pulse Resp BP BP Pulse Ox 04/19/19 01:30 79 33 H 94 04/19/19 00:01 60 172/63 H 95 04/18/19 23:47 60 97 04/18/19 22:32 96 04/18/19 22:03 37.2 C 60 28 H 171/59 H 98 04/18/19 22:00 60 38 H 98 Laboratory Results 04/18/19 04/18/19 04/18/19 Range/Units 23:08 22:38 21:38 WBC (4.8-10.8) K/uL RBC (4.2-5.4) M/uL Hgb (12.0-16.0) g/dL Hct (37-47) % MCV (80-100) fL MCH (25-34) pg MCHC (32-36) g/dL RDW Std Deviation (36.4-46.3) fL RDW Coeff of Kiana (11.5-14.5) % Plt Count (130-400) K/uL MPV (7.4-10.4) fL Immature Gran % (Auto) % Neut % (Auto) % Lymph % (Auto) % Baxter % (Auto) % Eos % (Auto) % Baso % (Auto) % Immature Gran # (Auto) (0.00-0.02) K/uL Neut # (Auto) (1.4-6.5) K/uL Lymph # (Auto) (1.2-3.4) K/uL Baxter # (Auto) (0.11-0.59) K/uL Eos # (Auto) (0-0.5) K/uL Baso # (Auto) (0-0.2) K/uL PT (9.0-12.0) Seconds INR (0.9-1.1) APTT (21.0-31.0) Seconds PTT Ratio VBG pH 7.35 L Cancelled VBG pCO2 55 H Cancelled VBG pO2 19 Cancelled VBG HCO3 29 Cancelled VBG O2 Saturation < 60.0 Cancelled VBG Base Excess 2.9 Cancelled Barometric Pressure 731.6 Cancelled Sodium 134 L (136-145) mmol/L Potassium 4.4 (3.5-5.1) mmol/L Chloride 97 L (98-107) mmol/L Carbon Dioxide 29 (21-32) mmol/L Anion Gap 8.0 (3-11) BUN 18 (7-18) mg/dl Creatinine 1.05 (0.6-1.2) mg/dl Est Cr Clr Drug Dosing 36.6 ml/min Est GFR ( Amer) 60.2 Est GFR (Non-Af Amer) 51.9 BUN/Creatinine Ratio 16.7 (10-20) Glucose 160 H (70-99) mg/dl Calcium 9.4 (8.5-10.1) mg/dl Total Bilirubin 1.0 (0.2-1) mg/dl AST 22 (15-37) U/L ALT 29 (12-78) U/L Alkaline Phosphatase 84 (45-117) U/L Troponin I 0.148 H* (0-0.045) ng/ml NT-Pro-B Natriuret Pep > 90945 H (0-900) pg/ml Total Protein 7.2 (6.4-8.2) gm/dl Albumin 3.4 (3.4-5.0) gm/dl Globulin 3.8 (2.5-4.0) gm/dl Albumin/Globulin Ratio 0.9 (0.9-2) 04/18/19 04/18/19 Range/Units 21:38 21:38 WBC 7.48 (4.8-10.8) K/uL RBC 4.14 L (4.2-5.4) M/uL Hgb 12.3 (12.0-16.0) g/dL Hct 38.4 (37-47) % MCV 92.8 (80-100) fL MCH 29.7 (25-34) pg MCHC 32.0 (32-36) g/dL RDW Std Deviation 61.6 H (36.4-46.3) fL RDW Coeff of Kinaa 18.4 H (11.5-14.5) % Plt Count 170 (130-400) K/uL MPV 10.6 H (7.4-10.4) fL Immature Gran % (Auto) 0.3 % Neut % (Auto) 72.6 % Lymph % (Auto) 16.7 % Baxter % (Auto) 9.2 % Eos % (Auto) 0.9 % Baso % (Auto) 0.3 % Immature Gran # (Auto) 0.02 (0.00-0.02) K/uL Neut # (Auto) 5.43 (1.4-6.5) K/uL Lymph # (Auto) 1.25 (1.2-3.4) K/uL Baxter # (Auto) 0.69 H (0.11-0.59) K/uL Eos # (Auto) 0.07 (0-0.5) K/uL Baso # (Auto) 0.02 (0-0.2) K/uL PT 14.2 H (9.0-12.0) Seconds INR 1.4 H (0.9-1.1) APTT 30.1 (21.0-31.0) Seconds PTT Ratio 1.1 VBG pH VBG pCO2 VBG pO2 VBG HCO3 VBG O2 Saturation VBG Base Excess Barometric Pressure Sodium (136-145) mmol/L Potassium (3.5-5.1) mmol/L Chloride (98-107) mmol/L Carbon Dioxide (21-32) mmol/L Anion Gap (3-11) BUN (7-18) mg/dl Creatinine (0.6-1.2) mg/dl Est Cr Clr Drug Dosing ml/min Est GFR ( Amer) Est GFR (Non-Af Amer) BUN/Creatinine Ratio (10-20) Glucose (70-99) mg/dl Calcium (8.5-10.1) mg/dl Total Bilirubin (0.2-1) mg/dl AST (15-37) U/L ALT (12-78) U/L Alkaline Phosphatase (45-117) U/L Troponin I (0-0.045) ng/ml NT-Pro-B Natriuret Pep (0-900) pg/ml Total Protein (6.4-8.2) gm/dl Albumin (3.4-5.0) gm/dl Globulin (2.5-4.0) gm/dl Albumin/Globulin Ratio (0.9-2) Diagnostic Findings Chest x-ray with mild pulmonary edema. Medications Administered 60 mg IV of Lasix. Code Status & VTE Plan Code Status DNR/DNI as discussed with patient's daughter. Supervising Physician Co-Signing Physician Notes Attending addendum: I have physically seen this patient, have supervised the medical residents activities, and agree with the H&P unless as otherwise noted. Assessment and Plan: Acute respiratory failure with hypoxia/NSTEMI/acute CHF exacerbation/cardiomyopathy- Telemetry admission Continue BiPAP began in ED, titrate downward to nasal cannula to keep pulse ox 90 to 94%. Continue Mckeon catheter. Given Lasix silk 60 mg IV in ED. Continue oral Lasix. Hospice patient- Consult palliative. DNR/DNI. Remainder of orders and notations as noted PG Care Time/CCT Total # of Minutes Spent Total Time Spent with Patient: Total time spent is greater than 50% in coordination of care (as documented) at patient's floor/unit and/or counseling patient: Resident Activity Tracking Resident Involvement: Resident Care Provided Care Provided: Adult Hospital Medicine
--- NOTE | 2019-04-19 02:06 | Emergency Department Note ---
Entered by Jasper Garcia acting as a scribe for History of Present Illness General Chief complaint: Shortness of Breath/Dyspnea Stated complaint: RESP. DISTRESS, EDEMA TO EXTREMITIES Source: patient Limitations: no limitations History of Present Illness Onset (ago): week(s) 1 Location: chest Pain Consistency: + constant Quality: + constant Associated symptoms: + denies other symptoms (abdominal pain); no nausea/vomiting The patient is a 74 white female w/ PMHx COPD, congestive heart failure, CKD, CAD who presents to the ED w/ CC of constant SOB beginning a week ago. The patient's daughter states the patient just got home from respite care. The patient's daughter states the patient has been intermittently doing better. She notes the patient is in hospice care and does not take any medications anymore. The patient denies abdominal pain, nausea, and vomiting. The patient's daughter states the patient is normally on 3L of O2. Patient was found to be hypoxic with a pulse ox of 80% he was brought in by EMS on CPAP. Patient denies any chest pain at this time. No nausea vomiting diarrhea. No fevers. Home Medications Home Medications Medication Instructions Recorded Confirmed Type ondansetron HCl [Zofran] 4 mg PO Q6H PRN #10 tab 10/29/18 04/18/19 Rx Brovana 15 mcg INHALATION BIDR #120 ml 12/29/18 04/18/19 Rx prochlorperazine maleate 10 mg PO Q6H PRN #20 tab 01/25/19 04/18/19 Rx [Compazine] albuterol sulfate [Ventolin HFA] 1 - 2 puff INHALATION Q4 PRN 02/26/19 04/18/19 History lorazepam 0.5 mg PO Q4H PRN #30 tab 03/02/19 04/18/19 Rx morphine concentrate 5 mg PO Q6H PRN #30 ml 03/03/19 04/18/19 Rx furosemide [Lasix] 20 mg PO DAILY 04/18/19 04/18/19 History ipratropium-albuterol [Combivent 1 puff INHALATION TID 04/18/19 04/18/19 History Respimat] Allergies Allergy/AdvReac Type Severity Reaction Status Date / Time Sulfa (Sulfonamide Allergy Intermediate RASH Verified 04/03/19 07:24 Antibiotics) morphine AdvReac Mild GI SYMPTOMS Verified 04/03/19 07:24 Past Med/Surg History Medical History Iliac artery aneurysm Renal artery stenosis DVT prophylaxis UTI (urinary tract infection) due to Enterococcus Mesenteric artery stenosis (Acute) Restless leg syndrome COPD exacerbation (Acute) Cachexia Demand ischemia Abdominal pain Chronic kidney disease, stage 3a Iron deficiency anemia Chronic systolic (congestive) heart failure Acute on chronic respiratory failure with hypoxia and hypercapnia CAD (coronary artery disease) s/p PR in 1999 Atrial fibrillation Ischemic cardiomyopathy EF 25-30% Dyslipidemia Hypertension Anxiety COPD (chronic obstructive pulmonary disease) (Acute) Hypoxia Nausea (Acute) Pulmonary congestion (Acute) Non compliance w medication regimen Emphysema of lung Syncope AICD malfunction Respiratory distress Ambulatory dysfunction (Acute) Elevated troponin Influenza A Left lower lobe pneumonia Weakness (Acute) GIB (gastrointestinal bleeding) Reflux esophagitis SAH (subarachnoid hemorrhage) Surgical History S/P carotid endarterectomy S/P carpal tunnel release S/P hysterectomy S/P implantation of automatic cardioverter/defibrillator (AICD) Family History Father , about age 80 Coronary heart disease from acute PR Mother , age 75 Coronary heart disease had CABG; ultimately from PR Other Heart disease Social History Preferred Language: [place] Communication Ability: Effective Visual Impairment: No Limitations Hearing Ability: Normal Beliefs That Will Affect Care: None marital status: Current Living Situation: Spouse Current Living Situation Comment: lives in [place]; has 3 children 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 and A total of 10 systems reviewed and were otherwise negative Physical Exam Vital Signs Vital Signs - 24 hr 04/18/19 22:00 04/18/19 22:03 04/18/19 22:32 Temperature 37.2 C Temperature Source Oral Sepsis Recent Fever Within 48 Hours No Sepsis New/Unexplained Change in Mental Status No Sepsis Action Taken by Nursing No Action Required Pulse Oximetry Post Tiitration 98 Pulse Rate 60 60 Pulse Rate [Finger] Respiratory Rate 38 H 28 H Respiratory Effort / Characteristics Spontaneous Accessory Muscle Use Labored Short of Breath Respiratory Depth Shallow Respiratory Pattern Tachypnea Blood Pressure 171/59 H Blood Pressure [Left Arm] Blood Pressure Mean 96 Blood Pressure Mean [Left Arm] Pulse Oximetry 98 98 96 Oxygen Delivery Method BiPAP BiPAP Fraction of Inspired Oxygen 30 04/18/19 23:47 04/19/19 00:01 04/19/19 01:30 Temperature Temperature Source Sepsis Recent Fever Within 48 Hours Sepsis New/Unexplained Change in Mental Status Sepsis Action Taken by Nursing Pulse Oximetry Post Tiitration Pulse Rate 79 Pulse Rate [Finger] 60 60 Respiratory Rate 33 H Respiratory Effort / Characteristics Spontaneous Accessory Muscle Use SOB on Exertion Respiratory Depth Normal Respiratory Pattern Tachypnea Blood Pressure Blood Pressure [Left Arm] 172/63 H Blood Pressure Mean Blood Pressure Mean [Left Arm] 99 Pulse Oximetry 97 95 94 Oxygen Delivery Method BiPAP BiPAP Fraction of Inspired Oxygen 30 GENERAL: alert, Sitting up in bed. Ill-appearing. Patient is on Bi-PAP and is in moderate distress. Dyspneic on conversation. EYE EXAM: normal conjunctiva OROPHARYNX: no exudate, no erythema, lips, buccal mucosa, and tongue normal and mucous membranes are moist NECK: supple, no nuchal rigidity, no adenopathy, non-tender. Positive JVD. LUNGS: Normal chest wall mechanics. Crackles at bilateral bases. HEART: no murmurs, S1 normal and S2 normal ABDOMEN: abdomen soft, non-tender, normo-active bowel sounds, no masses, no rebound or guarding. BACK: Back is symmetrical on inspection and there is no deformity, no midline tenderness, no CVA tenderness. SKIN: no rashes and no bruising UPPER EXTREMITIES: upper extremities are grossly normal. Pitting edema on left upper extremity. LOWER EXTREMITIES: Pitting edema on bilateral lower extremities, left greater than right. NEURO EXAM: Normal sensorium, cranial nerves II-XII grossly intact, normal speech, no gross weakness of arms, no gross weakness of legs. Course ED COURSE: Vital signs were reviewed and showed hypertension and hypoxia. The patients medical record was reviewed The above diagnostic studies were performed and reviewed. ED treatments and interventions as stated above. 2220: The patient was evaluated in room C10. A complete history and physical examination was performed. 0021: Upon reevaluation, the patient is getting admitted. I discussed my findings with the patient and she understands and agrees with the treatment plan. []: I discussed the patient's case with Dr. West - [facility] ist.. He will evaluate the patient for further management Based on the patients age, coexisting illnesses, exam and lab findings the decision to treat as an inpatient was made. The patient remained stable while under my care. The patient will be evaluated for further management. Administered Medications Discontinued Medications Furosemide (Lasix) 60 mg IV NOW STA Stop: 04/19/19 01:42 Last Admin: 04/19/19 01:59 Dose: 60 mg Documented by: [id number] Medical Decision Making Differential Diagnosis Differential diagnoses includes but is not limited to pneumonia, bronchitis, COPD/Asthma exacerbation, pneumothorax, pulmonary embolism, congestive heart failure, acute coronary syndrome Medical Records Attestation: I reviewed the patient's medical records. Home Medications Current Medication List: was personally reviewed by me Laboratory Data Attestation: I reviewed the patient's lab results. Result diagrams: 04/18/19 21:38 04/18/19 21:38 Lab Results 04/18/19 04/18/19 04/18/19 Range/Units 21:38 21:38 21:38 WBC 7.48 (4.8-10.8) K/uL RBC 4.14 L (4.2-5.4) M/uL Hgb 12.3 (12.0-16.0) g/dL Hct 38.4 (37-47) % MCV 92.8 (80-100) fL MCH 29.7 (25-34) pg MCHC 32.0 (32-36) g/dL RDW Std Deviation 61.6 H (36.4-46.3) fL RDW Coeff of Kiana 18.4 H (11.5-14.5) % Plt Count 170 (130-400) K/uL MPV 10.6 H (7.4-10.4) fL Immature Gran % (Auto) 0.3 % Neut % (Auto) 72.6 % Lymph % (Auto) 16.7 % [place] % (Auto) 9.2 % Eos % (Auto) 0.9 % Baso % (Auto) 0.3 % Immature Gran # (Auto) 0.02 (0.00-0.02) K/uL Neut # (Auto) 5.43 (1.4-6.5) K/uL Lymph # (Auto) 1.25 (1.2-3.4) K/uL [place] # (Auto) 0.69 H (0.11-0.59) K/uL Eos # (Auto) 0.07 (0-0.5) K/uL Baso # (Auto) 0.02 (0-0.2) K/uL PT 14.2 H (9.0-12.0) Seconds INR 1.4 H (0.9-1.1) APTT 30.1 (21.0-31.0) Seconds PTT Ratio 1.1 VBG pH VBG pCO2 VBG pO2 VBG HCO3 VBG O2 Saturation VBG Base Excess Barometric Pressure Sodium 134 L (136-145) mmol/L Potassium 4.4 (3.5-5.1) mmol/L Chloride 97 L (98-107) mmol/L Carbon Dioxide 29 (21-32) mmol/L Anion Gap 8.0 (3-11) BUN 18 (7-18) mg/dl Creatinine 1.05 (0.6-1.2) mg/dl Est Cr Clr Drug Dosing 36.6 ml/min Est GFR ( Amer) 60.2 Est GFR (Non-Af Amer) 51.9 BUN/Creatinine Ratio 16.7 (10-20) Glucose 160 H (70-99) mg/dl Calcium 9.4 (8.5-10.1) mg/dl Total Bilirubin 1.0 (0.2-1) mg/dl AST 22 (15-37) U/L ALT 29 (12-78) U/L Alkaline Phosphatase 84 (45-117) U/L Troponin I 0.148 H* (0-0.045) ng/ml NT-Pro-B Natriuret Pep > 38588 H (0-900) pg/ml Total Protein 7.2 (6.4-8.2) gm/dl Albumin 3.4 (3.4-5.0) gm/dl Globulin 3.8 (2.5-4.0) gm/dl Albumin/Globulin Ratio 0.9 (0.9-2) 04/18/19 04/18/19 Range/Units 22:38 23:08 WBC (4.8-10.8) K/uL RBC (4.2-5.4) M/uL Hgb (12.0-16.0) g/dL Hct (37-47) % MCV (80-100) fL MCH (25-34) pg MCHC (32-36) g/dL RDW Std Deviation (36.4-46.3) fL RDW Coeff of Kiana (11.5-14.5) % Plt Count (130-400) K/uL MPV (7.4-10.4) fL Immature Gran % (Auto) % Neut % (Auto) % Lymph % (Auto) % [place] % (Auto) % Eos % (Auto) % Baso % (Auto) % Immature Gran # (Auto) (0.00-0.02) K/uL Neut # (Auto) (1.4-6.5) K/uL Lymph # (Auto) (1.2-3.4) K/uL [place] # (Auto) (0.11-0.59) K/uL Eos # (Auto) (0-0.5) K/uL Baso # (Auto) (0-0.2) K/uL PT (9.0-12.0) Seconds INR (0.9-1.1) APTT (21.0-31.0) Seconds PTT Ratio VBG pH Cancelled 7.35 L VBG pCO2 Cancelled 55 H VBG pO2 Cancelled 19 VBG HCO3 Cancelled 29 VBG O2 Saturation Cancelled < 60.0 VBG Base Excess Cancelled 2.9 Barometric Pressure Cancelled 731.6 Sodium (136-145) mmol/L Potassium (3.5-5.1) mmol/L Chloride (98-107) mmol/L Carbon Dioxide (21-32) mmol/L Anion Gap (3-11) BUN (7-18) mg/dl Creatinine (0.6-1.2) mg/dl Est Cr Clr Drug Dosing ml/min Est GFR ( Amer) Est GFR (Non-Af Amer) BUN/Creatinine Ratio (10-20) Glucose (70-99) mg/dl Calcium (8.5-10.1) mg/dl Total Bilirubin (0.2-1) mg/dl AST (15-37) U/L ALT (12-78) U/L Alkaline Phosphatase (45-117) U/L Troponin I (0-0.045) ng/ml NT-Pro-B Natriuret Pep (0-900) pg/ml Total Protein (6.4-8.2) gm/dl Albumin (3.4-5.0) gm/dl Globulin (2.5-4.0) gm/dl Albumin/Globulin Ratio (0.9-2) Imaging Data Attestation: I personally reviewed and interpreted this imaging study as follows: My Impression: Chest X-Ray Portable AP Upright 1 View: Pacemaker. Left chest shows mild cephalization. Unable to visualize entire right diaphragm. No significant change from previous. ECG Data Attestation: I personally reviewed and interpreted this ECG as follows: Indication: SOB/dyspnea Rate (beats per minute): 63 Rhythm: other (Ventricular paced) Findings: + other (poor baseline, ), + RBBB, + ST depression (septal leads) and + left axis deviation Comparison ECG Date: from (04/03/19) Change: no significant change Blood Pressure Blood Pressure Findings: Elevated blood pressure Blood Pressure Disposition: further management by hospitalist HUMERA Narrative Patient is a 74-year-old female on hospice recently discharged from the shelter for shortness of breath. Patient with advanced COPD, systolic CHF 25%, pacer/AICD (turned off), CAD, AF, HTN, HLD, anxiety, dependent on 4-5L 02. Patient was brought in significant respiratory distress on CPAP was transitioned to BiPAP. She did improve and settle down. Vitals show that she is hypertensive along with an increased respiratory rate of 33. IV was established blood work was obtained and showed no significant leukocytosis or anemia. INR was subtherapeutic at 1.4 as she stopped on all her medications. VBG with a pH of 7.35. CO2 of 55 after being on CPAP and BiPAP. BMP was unremarkable. Troponin was +0.148 consistent with previous. proBNP was significantly elevated at 35. Lungs did appear to have crackles bilateral bases. Patient was given IV Lasix. I do favor that this likely combination of COPD and CHF. As patient is on hospice was discussed having patient discharged and increasing morphine with patient request at this time to be treated medically to help improve her symptoms. She does want to come in the hospital. Daughter was updated bedside. Patient was admitted for respiratory failure in combination with a chronically elevated troponin and BNP. Impression & Plan Acute respiratory distress, Elevated troponin, CHF (congestive heart failure), Hypoxia, COPD (chronic obstructive pulmonary disease) Critical Care Time Critical Care Time: Yes Total Critical Care Time: 35 I have personally spent 35 minutes of critical care time in the direct management of this patient. This includes bedside care, interpretation of diagno stic studies, and testing, discussion with consultants, patient, and family members, and other required patient management activities. This 35 minutes is in excess of all separately billable procedures. Discharge Plan Visit Data Chief Complaint: Shortness of Breath/Dyspnea Stated Complaint: RESP. DISTRESS, EDEMA TO EXTREMITIES ED Provider: Nahun Perez Discharge Problem: Acute respiratory distress, Elevated troponin, CHF (congestive heart failure), Hypoxia Patient Disposition: Being Evaluated by Hospitalist Prescriptions Prescriptions: No Action Brovana 15 mcg/2 mL Solution For Nebulization 15 mcg Inhalation BIDR Qty: 120 RF: 3 ondansetron HCl [Zofran] 4 mg tablet 4 mg PO Q6H PRN (Reason: nausea and vomiting) Qty: 10 RF: 0 prochlorperazine maleate [Compazine] 10 mg tablet 10 mg PO Q6H PRN (Reason: nausea and vomiting) Qty: 20 RF: 0 albuterol sulfate [Ventolin HFA] 90 mcg/actuation HFA aerosol inhaler 1 - 2 puff inhalation Q4 PRN (Reason: Shortness Of Breath Or Wheezing) RF: 0 lorazepam 0.5 mg tablet 0.5 mg PO Q4H PRN (Reason: anxiety) Qty: 30 RF: 0 morphine concentrate 100 mg/5 mL (20 mg/mL) solution 5 mg PO Q6H PRN (Reason: pain) Qty: 30 RF: 0 furosemide [Lasix] 20 mg tablet 20 mg PO DAILY RF: 0 Combivent Respimat 20-100 mcg/actuation mist 1 puff inhalation TID RF: 0 The scribe's documentation has been prepared under my direction and personally reviewed by me in its entirety. I confirm that the note above accurately reflects all work, treatment, procedures, and medical decision making performed by me.
[2019-04-19] MEDS ORDERED: ALBUTEROL HFA 8 GM INHALER INH PRN (03:11)
[2019-04-19] MEDS ORDERED: PROCHLORPERAZINE MALEATE 10 MG TAB PO PRN (03:11)
[2019-04-19] MEDS ORDERED: ONDANSETRON INJ 2 MG/ML 2 ML VIAL IV PRN (03:11)
[2019-04-19] MEDS ORDERED: LORazepam 0.5 MG/1 ML VIAL IV PRN ×2 (03:11→10:21)
[2019-04-19] MEDS ORDERED: ALUMINUM/MAGNESIUM SUSP 30 ML UDC PO PRN (03:11)
[2019-04-19] MEDS ORDERED: ONDANSETRON 4 MG TAB PO PRN (03:11)
[2019-04-19] MEDS: LORazepam 0.5 MG TAB PO PRN ×3 (04:01→15:55)
[2019-04-19] MEDS: MoRPHine SULFATE 2 MG/ML CARP IV PRN ×5 (05:47→22:17)
[2019-04-19 06:29] LABS: Appearance Urine Clear (Clear); Bacteria Urine Automated 2+ (Negative); Bilirubin Urine Negative (Negative); Blood Urine 1+ (Negative); Color Urine Yellow; Epithelial Cell Urine Auto 0-5 /lpf (0-5); Glucose Urine UA Negative (Negative); Ketones Urine Negative (Negative); Leukocyte Esterase Urine 2+ (Negative); Nitrite Urine Positive (Negative); Protein Urine Negative (Negative); Urobilinogen Urine Negative (Negative); pH Urine 6.5 (4.5-7.5)
[2019-04-19] MEDS: ARFORMOTEROL TART 15MCG/2ML VIAL INH SCH ×2 (07:20→19:22)
[2019-04-19] MEDS: IPRATROPIUM BROMIDE/ALBUTEROL respimat INH INH SCH ×2 (07:56→13:10)
[2019-04-19] MEDS ORDERED: FUROSEMIDE 20 MG TAB PO SCH (09:00)
--- NOTE | 2019-04-19 09:35 | XRay Report ---
SINGLE VIEW CHEST CLINICAL HISTORY: Dyspnea. FINDINGS: An AP, portable, upright chest radiograph is compared to study dated 04/03/2019 and correlat ed with chest CT dated 01/18/2019. The examination is degraded by portable technique and patient rotat ion. A 3-lead cardiac AICD is unchanged in position and partially obscures the left lower chest. The heart is enlarged and there is atherosclerotic calcification of the thoracic aorta. There is pulmonar y vascular congestion. Enlargement of the central pulmonary arteries indicates pulmonary artery hyper tension. Emphysema and chronic interstitial thickening are similar to previous. There are small pleur al effusions with bibasilar consolidation. No pneumothorax is seen. The skeletal structures are osteo penic. The bony thorax is grossly intact. IMPRESSION: 1. Cardiomegaly and AICD with evidence of congestive failure. 2. Emphysema. 3. There are small pleural effusions with bibasilar consolidation. This likely represents atelectasis and clinical correlation will be required. Electronically signed by: Antonio Astorga M.D. 04/19/2019 9:34 AM
[2019-04-19] MEDS: ALBUT/IPRATROP 3MG/0.5MG NEB 3 ML VIAL NEB SCH ×4 (10:30→23:20)
[2019-04-19] MEDS ORDERED: methylPREDNISolone 125 MG/2 ML VIAL IV SCH (10:30)
[2019-04-19] MEDS: methylPREDNISolone 40 MG in SYRINGE 0 ML IV SCH ×2 (11:07→18:46)
--- NOTE | 2019-04-19 13:05 | Hospitalist Progress Note ---
Date of Service April 19, 2019 Assessment & Plan (1) Acute respiratory distress: Dyspnea 2/2 CHF exacerbation -Pt is now on 3 L of supplemental O2. Started Duonebs q4 hr and as per respiratory , Solumedrol 40 mg Q8hr, Mucinex for cough. -continue lasix 20 daily (had been previously off her lasix while on hospice this past week) -I/O, mckeon in place -plan discussed with daughter appears to be to continue hospice, but to address pt's edema and shortness of breath at this time. Will not restart medications previously discontinued by hospice (BB, WALTER). -Family informed that pt is at end stage COPD and CHF and end of her life. They stated that they know ( present Ike, son David and his Felisha) (2) Elevated troponin: Pt does not have any chest pain. Pt has AIDC pacer and EF of 20-25 % per echocardiogram on 02/[place] [address] and she is in acute CHF exacerbation since on hospice her lasix was stopped.Troponin elevated probably due to the troponin leak and acute CHF exacerbation . -Continue trending troponins 0.106-->0145 -Continue Lasix 20 mg BID -Strict I/O -Daily weight -Monitor electrolytes and replenish as needed. -Consult cardiology -Consult paliative Present on Admission?: Yes (3) CHF (congestive heart failure): See the above Present on Admission?: Yes (4) Acute on chronic respiratory failure with hypoxia: Pt has end stage COPD. She is on hospice . -Continue Duonebs Q4 hr prn for SOB -Cont Brovana BID, -Started Solumedrol 40 mg Q8hr and brandy down -Used BiPAP as needed for chronic respiratory failure Present on Admission?: Yes (5) Ischemic cardiomyopathy: as the above, pt is on hospice (6) Anxiety: Continue Lorazepam Present on Admission?: Yes (7) Dysuria: UA Positive Nitrate and LE Prior urine cx grew Enterococcus Faecalis Started Zosyn empirically while urine cx is pending Present on Admission?: Yes Subjective Pt seen and examined at the bedside. She continues to complain of SOB and cough. Pt appears to have severe breathing issues and she is straggling. Pt family continues to have pt on hospice for end stage COPD and CHF but they said they would like to try and see if she can make it to [facility] [place] to be there on hospice. Cough is dry and hacking. Pt is on 3 L of supplemental O2 now. St reports decreased PO intake due to SOB .Pt denies fever, chills, chest pain, abdominal pain, hemoptysis N/V.She is af ebrile. Review of Systems Review of Systems: All systems reviewed & are unremarkable except as noted in HPI & below Physical Exam Constitutional: + cachectic Eyes: PERRL, conjunctivae normal, anicteric sclerae ENMT: external ear and nose normal, oropharynx normal Neck: trachea midline, no thyromegaly Respiratory: + dullness to percussion, + hyperresonance to percussion, + cough and + pursed lip breathing Auscultation: + wheezes Cardiovascular: RRR, no murmur, no edema paced rhythm Musculoskeletal: no cyanosis or clubbing, extremities motor strength 5/5 Skin: no rashes, warm and dry Neurologic: patellar DTR's 2+ bilat, sensation intact Psychiatric: A+Ox3, euthymic affect Lymphatic: no cervical or axillary lymphadenopathy Results & Data Vital Signs (Past 12 Hours) Vital Signs Temp Pulse Pulse Resp BP Pulse Ox 04/19/19 10:31 60 20 95 04/19/19 07:20 60 18 98 04/19/19 07:11 36.3 C L 60 20 144/56 H 93 04/19/19 03:51 36.7 C 85 16 131/50 L 98 04/19/19 03:21 36.4 C L 62 28 H 155/62 H 93 04/19/19 02:47 79 33 H 94 04/19/19 02:37 79 33 H 94 04/19/19 01:30 79 33 H 94 PG Care Time/CCT Total # of Minutes Spent Total Time Spent with Patient: Total time spent is greater than 50% in coordination of care (as documented) at patient's floor/unit and/or counseling patient:
[2019-04-19] MEDS ORDERED: VANCOMYCIN HCL 1,000 MG in SODIUM CHLORIDE 0.9% 500 ML IV ONE (13:13)
[2019-04-19] MEDS ORDERED: VANCOMYCIN CONSULT ACTIVE PRN (13:13)
[2019-04-19] MEDS ORDERED: PIPERACILL/TAZOBAC CONSULT ACTIVE PRN (13:53)
[2019-04-19] MEDS ORDERED: PIPERACILLIN/TAZOBACTAM 3.375 GM in DEXTROSE 5% 100 ML IV ONE (14:00)
[2019-04-19 14:16] LABS: Creatinine Clr Calc Pharmacy 47.1 ml/min; Est GFR (African American) 83.6; Est GFR (Non-African American) 72.1
[2019-04-19] MEDS: FUROSEMIDE 40 MG in SYRINGE 0 ML IV SCH ×2 (14:33→20:34)
[2019-04-19 14:55] LABS: HCO3 ABG 31 mmol/L (19-24); Oxygen Saturation ABG 95.5 % (90-95); PCO2 ABG 45 mmHg (35-46); PO2 ABG 78 mm/Hg (80-95); pH ABG 7.45 (7.35-7.45)
[2019-04-19 14:56] LABS: Allen Test POS (Pos)
[2019-04-19] MEDS ORDERED: MAGNESIUM SULFATE / D5W 1 GM/100 ML BAG IV ONE (16:15)
[2019-04-19] MEDS: MoRPHine SULFATE 5 MG/0.25 ML UDP PO PRN (18:17)
[2019-04-19] MEDS: PIPERACILLIN/TAZOBACTAM 3.375 GM in DEXTROSE 5% 100 ML IV SCH (19:33)
[2019-04-19] MEDS: guaiFENesin 600 MG TABCR PO SCH (20:34)
[2019-04-19] MEDS: LORazepam 0.5 MG/1 ML VIAL IV PRN (21:38)
[2019-04-20] MEDS: ALBUT/IPRATROP 3MG/0.5MG NEB 3 ML VIAL NEB SCH ×6 (03:34→23:44)
[2019-04-20] MEDS: PIPERACILLIN/TAZOBACTAM 3.375 GM in DEXTROSE 5% 100 ML IV SCH ×3 (03:41→20:15)
[2019-04-20] MEDS: methylPREDNISolone 40 MG in SYRINGE 0 ML IV SCH ×3 (03:41→20:10)
[2019-04-20 05:49] LABS: INR 1.3 (0.9-1.1); Prothrombin Time 13.2 Seconds (9.0-12.0)
[2019-04-20] MEDS: LORazepam 0.5 MG/1 ML VIAL IV PRN (06:00)
[2019-04-20 06:09] LABS: Creatinine Clr Calc Pharmacy 48.3 ml/min; Est GFR (African American) 86.2; Est GFR (Non-African American) 74.4; Magnesium 1.9 mg/dl (1.8-2.4)
[2019-04-20] MEDS: guaiFENesin 600 MG TABCR PO SCH ×2 (07:41→20:11)
[2019-04-20] MEDS: LORazepam 0.5 MG TAB PO PRN ×4 (07:41→20:18)
[2019-04-20] MEDS: FUROSEMIDE 40 MG in SYRINGE 0 ML IV SCH ×2 (07:41→20:11)
[2019-04-20] MEDS: ARFORMOTEROL TART 15MCG/2ML VIAL INH SCH ×2 (08:00→19:01)
[2019-04-20] MEDS: MoRPHine SULFATE 5 MG/0.25 ML UDP PO PRN ×3 (09:40→20:11)
[2019-04-20] MEDS: MoRPHine SULFATE 2 MG/ML CARP IV PRN (11:28)
[2019-04-20] MEDS: POLYETHYLENE (MIRALAX) 17 GM PACK PO PRN (11:41)
--- NOTE | 2019-04-20 11:59 | Palliative Care Consultation ---
Date of Consultation April 20, 2019 Assessment & Plan (1) Hospice care: -This 74 year old patient, who is on hospice care for end stage CHF and COPD, presented to the hospital yesterday with increased SOB. Patient was at [facility] from 04/13-04/17 for respite care. She went home from respite care and apparently began feeling worse with increased SOB. Per report, it was becoming difficult for her to care for her at home. Patient woke up feeling SOB and called 911 herself. She did not wake her or call hospice first. She is now admitted, but upon further discussion with the hospice agency, patient is admitted under [facility] hospice care. Palliative care also consulted as she is well-known to our service. -Met with patient in room 461 this morning. She is awake, alert, oriented x4. Was able to describe what happened prior to coming to the hospital. however, she is also hallucinating. Stated, "There's that centipede flying around," while pointing to the ceiling. -Patient stated that she is requiring too much care at home and she is worried about her . patient states that she thinks she needs to go to SNF permanently for hospice care. She confirmed that the goal is still for hospice/comfort and to not return to the hospital. -Hospice nurse, Dianna, was present in the room for most of my visit. Apparently patient has been having trouble with constipation at home, so I did reorder her Sennakot daily. Use lactulose PRN if no bowel movement. Patient stated she had a bowel movement yesterday. -Hospice agency and our case management department are working on placement for this patient. -Will order Roxanol 5mg PO/SL Q3h PRN pain or SOB. Patient counseled on the secondary side effects of morphine such as sedation and respiratory depression. Will discontinue IV morphine. -Continue Lorazepam 0.5mg PO Q4h PRN anxiety/agitation. -Will continue to follow. (2) Hypoxia: (3) CHF (congestive heart failure): (4) Acute respiratory distress: History of Present Illness Reason for Consultation: Hospice patient Requesting Physician: Dr. Nola Kenny Attending Physician: Manuel Romeo History of Present Illness This 74 year old patient, who is on hospice care for end stage CHF and COPD, presented to the hospital yesterday with increased SOB. Patient was at [facility] from 04/13-04/17 for respite care. She went home from respite care and apparently began feeling worse with increased SOB. Per report, it was becoming difficult for her to care for her at home. Patient woke up feeling SOB and called 911 herself. She did not wake her or call hospice first. She is now admitted, but upon further discussion with the hospice agency, patient is admitted under [facility] hospice care. Palliative care also consulted as she is well- known to our service. Thank you kindly for this consult. I will follow as needed. Allergies Allergy/AdvReac Type Severity Reaction Status Date / Time Sulfa (Sulfonamide Allergy Intermediate RASH Verified 04/03/19 07:24 Antibiotics) morphine AdvReac Mild GI SYMPTOMS Verified 04/03/19 07:24 Home Medications Home Medications Medication Instructions Recorded Confirmed Type ondansetron HCl [Zofran] 4 mg PO Q6H PRN #10 tab 10/29/18 04/18/19 Rx Brovana 15 mcg INHALATION BIDR #120 ml 12/29/18 04/18/19 Rx prochlorperazine maleate 10 mg PO Q6H PRN #20 tab 01/25/19 04/18/19 Rx [Compazine] albuterol sulfate [Ventolin HFA] 1 - 2 puff INHALATION Q4 PRN 02/26/19 04/18/19 History lorazepam 0.5 mg PO Q4H PRN #30 tab 03/02/19 04/18/19 Rx morphine concentrate 5 mg PO Q6H PRN #30 ml 03/03/19 04/18/19 Rx furosemide [Lasix] 20 mg PO DAILY 04/18/19 04/18/19 History ipratropium-albuterol [Combivent 1 puff INHALATION TID 04/18/19 04/18/19 History Respimat] acetaminophen 500 mg tablet 1 PO .TAKE 1 TABLET Every tab 04/20/19 History aspirin 81 mg tablet PO .TAKE 1 TABLET DAILY. tab 04/20/19 History atorvastatin 80 mg tablet PO .TAKE 1 TABLET AT BED #90 tab 04/20/19 History carvedilol 12.5 mg tablet PO .TAKE 1 & 1/2 TABLETS tab 04/20/19 History clopidogrel 75 mg tablet PO .take 1 tablet by salas #90 tab 04/20/19 History ergocalciferol (vitamin D2) 50,000 PO .TAKE 1 CAPSULE Weekl #12 cap 04/20/19 History unit capsule ezetimibe 10 mg tablet PO .TAKE ONE TABLET BY M #90 tab 04/20/19 History lisinopril 2.5 mg tablet PO .TAKE 1 TABLET DAILY. #90 tab 04/20/19 History potassium chloride ER 20 mEq PO .TAKE 1 TABLET BY SALAS #90 tab 04/20/19 History tablet,extended release pramipexole 0.25 mg tablet PO .TAKE 1 TABLET BY SALAS #90 tab 04/20/19 History sertraline 50 mg tablet PO .TAKE 1 TABLET DAILY #90 tab 04/20/19 History Patient History Medical History Iliac artery aneurysm Renal artery stenosis DVT prophylaxis UTI (urinary tract infection) due to Enterococcus Mesenteric artery stenosis (Acute) Restless leg syndrome COPD exacerbation (Acute) Cachexia Demand ischemia Abdominal pain Chronic kidney disease, stage 3a Iron deficiency anemia Chronic systolic (congestive) heart failure Acute on chronic respiratory failure with hypoxia and hypercapnia CAD (coronary artery disease) s/p [place] in 1999 Atrial fibrillation Ischemic cardiomyopathy EF 25-30% Dyslipidemia Hypertension Anxiety COPD (chronic obstructive pulmonary disease) (Acute) Hypoxia Nausea (Acute) Pulmonary congestion (Acute) Non compliance w medication regimen Emphysema of lung Syncope AICD malfunction Respiratory distress Ambulatory dysfunction (Acute) Elevated troponin Influenza A Left lower lobe pneumonia Weakness (Acute) GIB (gastrointestinal bleeding) Reflux esophagitis SAH (subarachnoid hemorrhage) Surgical History S/P carotid endarterectomy S/P carpal tunnel release S/P hysterectomy S/P implantation of automatic cardioverter/defibrillator (AICD) Family History Father , about age 80 Coronary heart disease from acute [place] Mother , age 75 Coronary heart disease had CABG; ultimately from [place] Other Heart disease Social History Preferred Language: Wallisian Communication Ability: Impaired Visual Impairment: No Limitations Hearing Ability: Normal 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 Beliefs That Will Affect Care: None marital status: Current Living Situation: Spouse Current Living Situation Comment: lives in [place]; has 3 children current occupational status: retired Other Information That Helps Us Care for You: 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[employer], 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) Feels Safe at Home: Yes Safety Concerns: Feels Safe At This Time Smoking Status: Former smoker Tobacco Type: cigarettes Cigarettes Per Day: quit 1 month ago; smoked up to 1ppd in the past; started in teenage years Second Hand Exposure: No Hx Alcohol Use: No Hx Substance Use: No Results & Data Vital Signs (Past 12 Hours) Vital Signs Temp Pulse Resp BP Pulse Ox 04/20/19 11:17 61 19 98 04/20/19 08:01 68 18 95 04/20/19 06:46 36.3 C L 60 20 120/55 L 98 04/20/19 03:34 57 L 20 96 04/20/19 02:28 96 PG Care Time/CCT Total # of Minutes Spent Total Time Spent with Patient: Total time spent is greater than 50% in coordination of care (as documented) at patient's floor/unit and/or counseling patient: Time Spent Midlevel 70 minutes with >50% of the time spent at bedside with patient and hospice nurse/IDT discussing condition and GOC.
--- NOTE | 2019-04-20 21:38 | Hospitalist Progress Note ---
Date of Service April 20, 2019 Assessment & Plan (1) Acute respiratory distress: Dyspnea 2/2 CHF exacerbation -Pt is now on 3 L of supplemental O2. Started Duonebs q4 hr and as per respiratory , Solumedrol 40 mg Q8hr, Mucinex for cough. -continue lasix 20 daily (had been previously off her lasix while on hospice this past week) -I/O, mckeon in place -plan discussed with daughter appears to be to continue hospice. -Patient has been gradually improving. -Patient will be admitted to inpatient hospice with plan to transfer to outpatient hospice. Will not restart medications previously discontinued by hospice ([facility], [facility]). -Family informed that pt is at end stage COPD and CHF and end of her life. They stated that they know ( present Ike, son David and his Felisha) (2) Elevated troponin: Pt does not have any chest pain. Pt has AIDC pacer and EF of 20-25 % per echocardiogram [place] 02/[place] [address] and she is in acute CHF exacerbation since on hospice her lasix was stopped.Troponin elevated probably due to the troponin leak and acute CHF exacerbation . -Continue trending troponins 0.106-->0145 -Continue Lasix 20 mg BID -Strict I/O -Daily weight -Monitor electrolytes and replenish as needed. -Consult cardiology -Consult paliatative Appreciate input (3) CHF (congestive heart failure): See the above (4) Acute on chronic respiratory failure with hypoxia: Pt has end stage COPD. She is on hospice . -Continue Duonebs Q4 hr prn for SOB -Cont Brovana BID, -Started Solumedrol 40 mg Q8hr and brandy down -Used BiPAP as needed for chronic respiratory failure (5) Ischemic cardiomyopathy: as the above, pt is on hospice (6) Anxiety: Continue Lorazepam Subjective Patient is a poor historian at this point. She does not provide significant history. She states she would like to talk to case management, however, her nurse is at bedside and states that she discussed with case management. She states she is very concerned about her placement at discharge. She denies any new complaints however. Review of Systems Review of Systems: Unobtainable due to cognitive status Physical Exam Physical Exam: Constitutional: + cachectic Eyes: PERRL, conjunctivae normal, anicteric sclerae ENMT: external ear and nose normal, oropharynx normal Neck: trachea midline, no thyromegaly Respiratory: mild wheezing heard bilaterally Cardiovascular: RRR, no murmur, no edema paced rhythm Musculoskeletal: no cyanosis or clubbing, extremities motor strength 5/5 Skin: no rashes, warm and dry Neurologic: patellar DTR's 2+ bilat, sensation intact Psychiatric: A+Ox3, euthymic affect Lymphatic: no cervical or axillary lymphadenopathy Results & Data Vital Signs (Past 12 Hours) Vital Signs Temp Pulse Resp BP Pulse Ox 04/20/19 19:01 61 20 93 04/20/19 15:24 36.3 C L 62 17 119/50 L 94 04/20/19 14:59 67 20 94 04/20/19 11:17 61 19 98 PG Care Time/CCT Total # of Minutes Spent Total Time Spent with Patient: Total time spent is greater than 50% in coordination of care (as documented) at patient's floor/unit and/or counseling patient:
[2019-04-21] MEDS: ALBUT/IPRATROP 3MG/0.5MG NEB 3 ML VIAL NEB SCH ×6 (03:21→23:38)
[2019-04-21] MEDS: PIPERACILLIN/TAZOBACTAM 3.375 GM in DEXTROSE 5% 100 ML IV SCH ×3 (04:54→20:36)
[2019-04-21] MEDS: methylPREDNISolone 40 MG in SYRINGE 0 ML IV SCH ×3 (04:54→18:53)
[2019-04-21] MEDS: ARFORMOTEROL TART 15MCG/2ML VIAL INH SCH ×2 (07:05→19:09)
[2019-04-21] MEDS: SENNA 8.6 MG TAB PO SCH (07:44)
[2019-04-21] MEDS: guaiFENesin 600 MG TABCR PO SCH ×2 (07:44→20:36)
[2019-04-21 07:49] LABS: Creatinine Clr Calc Pharmacy 50.2 ml/min; Est GFR (African American) 90.4; Magnesium 1.9 mg/dl (1.8-2.4)
[2019-04-21] MEDS: FUROSEMIDE 40 MG in SYRINGE 0 ML IV SCH ×2 (08:30→20:36)
[2019-04-21] MEDS: LORazepam 0.5 MG TAB PO PRN ×2 (08:36→20:36)
[2019-04-21] MEDS: MoRPHine SULFATE 5 MG/0.25 ML UDP PO PRN (14:36)
--- NOTE | 2019-04-21 16:26 | Palliative Care Progress Note ---
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 -Used one dose of Roxanol 5mg today. One dose of PO lorazepam. -Patient was resting comfortably when I saw her this morning. NO s/s pain or SOB. -Waiting for SNF placement. Hospice agency and case management are coordinating. -Will follow peripherally. Please contact me with any further palliative care needs. (2) Hypoxia: (3) CHF (congestive heart failure): (4) Acute respiratory distress: Subjective Brief follow up visit to ensure comfort. Review of Systems Review of Systems: C/O SOB with any exertion. No pain, CP, N/V. Physical Exam Physical Exam: Constitutional + ill appearing and + cachectic ENMT external ear and nose normal, oropharynx normal Neck normal visual inspection Respiratory + labored breathing Auscultation: + diminished lung sounds Cardiovascular Rate/Rhythm: regular rate and regular rhythm Extremities: no edema Gastrointestinal (Abdomen) Inspection/Auscultation: abdomen normal to inspection and normal bowel sounds; abdomen not distended Percussion/Palpation: abdomen soft; abdomen nontender Skin left foot bruising Neurologic awake and + confused Psychiatric Orientation: alert, oriented to person and oriented to place; + not oriented to time Results & Data Vital Signs (Past 12 Hours) Vital Signs Temp Pulse Resp BP Pulse Ox 04/21/19 15:28 36.5 C 60 20 103/52 L 92 04/21/19 11:06 65 16 99 04/21/19 07:35 36.5 C 63 22 111/51 L 96 04/21/19 07:06 62 20 98 PG Care Time/CCT Total # of Minutes Spent Total Time Spent with Patient: Total time spent is greater than 50% in coordination of care (as documented) at patient's floor/unit and/or counseling patient: Time Spent Midlevel 15 minutes with >50% of time the spent at bedside with patient and IDT discussing 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
--- NOTE | 2019-04-21 23:33 | Hospitalist Progress Note ---
Date of Service April 21, 2019 Assessment & Plan (1) Acute respiratory distress: Dyspnea 2/2 CHF exacerbation vs COPD exacerbation. -Pt is now on 3 L of supplemental O2. Started Duonebs q4 hr and as per respiratory , will continue Solumedrol 40 mg Q8hr, Mucinex for cough. -on lasix 40 mg IV BID. -I/O, mckeon in place -plan discussed with daughter appears to be to continue hospice. -Patient has been gradually improving. -Patient will be admitted to inpatient hospice with plan to transfer to outpatient hospice. Will not restart medications previously discontinued by hospice ([facility], [facility]). -Family informed that pt is at end stage COPD and CHF and end of her life. They stated that they know ( present Ike, son David and his Felisha) (2) Elevated troponin: Likely deamand ischemia. Will monitor. Pt does not have any chest pain. Pt has AIDC pacer and EF of 20-25 % per echocardiogram [place] 02/26/2019[place] [address] and she is in acute CHF exacerbation since on hospice her lasix was stopped.Troponin elevated probably due to the troponin leak and acute CHF exacerbation . -Continue trending troponins 0.106-->0145 -Continue Lasix 20 mg BID -Strict I/O -Daily weight -Monitor electrolytes and replenish as needed. -Consult cardiology -Consult paliatative Appreciate input (3) CHF (congestive heart failure): See the above (4) Acute on chronic respiratory failure with hypoxia: Pt has end stage COPD. She is on hospice . -Continue Duonebs Q4 hr prn for SOB -Cont Brovana BID, -Started Solumedrol 40 mg Q8hr and brandy down -Used BiPAP as needed for chronic respiratory failure (5) Ischemic cardiomyopathy: as the above, pt is on hospice (6) Anxiety: Continue Lorazepam Spent 35 minutes in management of patient. Subjective Patient has been asleep during my encounter. She does awaken but then goes right back to sleep. She does not provide significant history. Review of Systems Review of Systems: Unobtainable due to reduced consciousness Physical Exam Physical Exam: Constitutional: + cachectic Eyes: PERRL, conjunctivae normal, anicteric sclerae ENMT: external ear and nose normal, oropharynx normal Neck: trachea midline, no thyromegaly Respiratory: mild wheezing heard bilaterally Cardiovascular: RRR, no murmur, no edema paced rhythm Musculoskeletal: no cyanosis or clubbing, extremities motor strength 5/5 Skin: no rashes, warm and dry Neurologic: patellar DTR's 2+ bilat, sensation intact Psychiatric: A+Ox3, euthymic affect Lymphatic: no cervical or axillary lymphadenopathy Results & Data Vital Signs (Past 12 Hours) Vital Signs Temp Pulse Resp BP Pulse Ox 04/21/19 19:09 60 16 98 04/21/19 15:28 36.5 C 60 20 103/52 L 92 PG Care Time/CCT Total # of Minutes Spent Total Time Spent with Patient: Total time spent is greater than 50% in coordination of care (as documented) at patient's floor/unit and/or counseling patient:
[2019-04-22] MEDS: ALBUT/IPRATROP 3MG/0.5MG NEB 3 ML VIAL NEB SCH ×6 (03:26→23:43)
[2019-04-22] MEDS: PIPERACILLIN/TAZOBACTAM 3.375 GM in DEXTROSE 5% 100 ML IV SCH (03:41)
[2019-04-22] MEDS: methylPREDNISolone 40 MG in SYRINGE 0 ML IV SCH ×2 (03:41→10:35)
[2019-04-22] MEDS: LORazepam 0.5 MG TAB PO PRN ×2 (03:43→20:36)
[2019-04-22 06:00] LABS: Creatinine Clr Calc Pharmacy 37.3 ml/min; Est GFR (African American) 63.1; Est GFR (Non-African American) 54.4
[2019-04-22] MEDS: ARFORMOTEROL TART 15MCG/2ML VIAL INH SCH ×2 (07:15→18:58)
[2019-04-22] MEDS: FUROSEMIDE 40 MG in SYRINGE 0 ML IV SCH (07:42)
[2019-04-22] MEDS: guaiFENesin 600 MG TABCR PO SCH ×2 (07:42→20:37)
[2019-04-22] MEDS: SENNA 8.6 MG TAB PO SCH (07:43)
[2019-04-22] MEDS: MoRPHine SULFATE 5 MG/0.25 ML UDP PO PRN ×2 (07:44→17:29)
[2019-04-22] MEDS ORDERED: cefTRIAXone SODIUM 1,000 MG in DEXTROSE 5% 50 ML IV SCH (09:15)
[2019-04-22] MEDS ORDERED: POTASSIUM CHLORIDE 20 MEQ TABCR PO STA (13:10)
[2019-04-22] MEDS: POTASSIUM CHLORIDE / WTR 10 MEQ/100 ML PLCT IV SCH ×3 (14:10→21:11)
--- NOTE | 2019-04-22 15:25 | Palliative Care Progress Note ---
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 -Patient has not had BM since 04/18. Patient has PRN miralax and milk of magnesia for BM. -As we move towards discharge, did request that IV medications such as lasix, abx, and steroids be transitioned to PO medications when appropriate. Patient is back to her baseline. -Does still have occasional CHOWDHURY for which she is using PRN Roxanol with good response. -Case management is following. Sounds like potential plan is for patient to go home with hospice until bed at SNF is available. (2) Hypoxia: (3) CHF (congestive heart failure): (4) Acute respiratory distress: Subjective Patient sleeping during my visit. Used one dose of Roxanol this morning and is now comfortable. Review of Systems Review of Systems: Sleeping soundly during visit. Did have some anxiety earlier and nurse medicated her with lorazepam Physical Exam Physical Exam: Constitutional + ill appearing and + cachectic ENMT external ear and nose normal, oropharynx normal Neck normal visual inspection Respiratory + labored breathing Auscultation: + diminished lung sounds Cardiovascular Rate/Rhythm: regular rate and regular rhythm Extremities: no edema Gastrointestinal (Abdomen) Inspection/Auscultation: abdomen normal to inspection and normal bowel sounds; abdomen not distended Percussion/Palpation: abdomen soft; abdomen nontender Skin left foot bruising Neurologic sleeping during visit Psychiatric Results & Data Vital Signs (Past 12 Hours) Vital Signs Temp Pulse Resp BP Pulse Ox 04/22/19 11:09 66 20 99 04/22/19 07:43 36.7 C 75 20 138/58 L 97 04/22/19 07:15 61 16 90 04/22/19 03:26 60 16 98 PG Care Time/CCT Total # of Minutes Spent Total Time Spent with Patient: Total time spent is greater than 50% in coordination of care (as documented) at patient's floor/unit and/or counseling patient: Time Spent Midlevel 25 minutes with >50% of the time spent at bedside with patient and IDT disc ussing VETERINARY LABORATORY TECHNICIAN and POC.
[2019-04-22] MEDS: LORazepam 0.5 MG/1 ML VIAL IV PRN ×2 (18:43→22:44)
[2019-04-22] MEDS: POTASSIUM CHLORIDE 20 MEQ TABCR PO SCH (20:36)
--- NOTE | 2019-04-22 22:13 | Hospitalist Progress Note ---
Date of Service April 22, 2019 Assessment & Plan (1) Acute respiratory distress: Acute on chronic systolic CHF COPD also playing role. -Pt is now on 3 L of supplemental O2. -Started Duonebs q4 hr and as per respiratory , -will continue Solumedrol 40 mg Q8hr, Mucinex for cough. -on lasix 40 mg IV BID, will switch to home dose in AM due to increase in creatinine. -will recheck. -I/O, mckeon in place -plan discussed with daughter appears to be to continue hospice. -Patient has been gradually improving. -Patient will be admitted to inpatient hospice with plan to transfer to outpatient hospice. Will not restart medications previously discontinued by hospice ([facility], [facility]). -Family informed that pt is at end stage COPD and CHF and end of her life. They stated that they know ( present Ike, son David and his Felisha) Given that patient has improved: will switch steroids and lasix to oral. Will recheck in AM. Hypokalemia: Patient requried agggressive replacement of potassium. (2) Elevated troponin: Likely demand ischemia. Will monitor. Pt does not have any chest pain. Pt has AIDC pacer and EF of 20-25 % per echocardiogram on 02/26/2019[place] [address] and she is in acute CHF exacerbation since on hospice her lasix was stopped.Troponin elevated probably due to the troponin leak and acute CHF exacerbation . -Continue trending troponins 0.106-->0145 -Continue Lasix but will resume hoome dose in AM. -Strict I/O -Daily weight -Monitor electrolytes and replenish as needed. -Consult cardiology -Consult paliatative Appreciate input (3) CHF (congestive heart failure): See the above (4) Acute on chronic respiratory failure with hypoxia: Pt has end stage COPD. She is on hospice . -Continue Duonebs Q4 hr prn for SOB -Cont Brovana BID, -Started Solumedrol 40 mg Q8hr Now on prednsione daily. -Used BiPAP as needed for chronic respiratory failure (5) Ischemic cardiomyopathy: as the above, pt is on hospice (6) Anxiety: Continue Lorazepam Spent 35 minutes in management of patient. Subjective 74 yo female is more awake today.Her brother in law is at bedside. She reports she is breathing better. She has no recollection of meeting me earlier in the hospital stay. Review of Systems Review of Systems: All systems reviewed & are unremarkable except as noted in HPI & below Physical Exam Physical Exam: Constitutional: + cachectic Eyes: PERRL, conjunctivae normal, anicteric sclerae ENMT: external ear and nose normal, oropharynx normal Neck: trachea midline, no thyromegaly Respiratory: mild wheezing heard bilaterally Cardiovascular: RRR, no murmur, no edema paced rhythm Musculoskeletal: no cyanosis or clubbing, extremities motor strength 5/5 Skin: no rashes, warm and dry Neurologic: patellar DTR's 2+ bilat, sensation intact Psychiatric: A+Ox3, euthymic affect Lymphatic: no cervical or axillary lymphadenopathy Results & Data Vital Signs (Past 12 Hours) Vital Signs Temp Pulse Resp BP Pulse Ox 04/22/19 18:58 61 16 93 04/22/19 15:29 60 18 98 04/22/19 15:00 36.5 C 60 20 121/64 100 04/22/19 11:09 66 20 99 PG Care Time/CCT Total # of Minutes Spent Total Time Spent with Patient: Total time spent is greater than 50% in coordination of care (as documented) at patient's floor/unit and/or counseling patient:
[2019-04-23] MEDS: POTASSIUM CHLORIDE / WTR 10 MEQ/100 ML PLCT IV SCH (00:22)
[2019-04-23] MEDS: MoRPHine SULFATE 5 MG/0.25 ML UDP PO PRN ×6 (02:30→22:09)
[2019-04-23] MEDS: POLYETHYLENE (MIRALAX) 17 GM PACK PO PRN (03:18)
[2019-04-23] MEDS: ALBUT/IPRATROP 3MG/0.5MG NEB 3 ML VIAL NEB SCH ×6 (04:03→23:06)
[2019-04-23] MEDS: LORazepam 0.5 MG/1 ML VIAL IV PRN ×2 (04:29→10:49)
[2019-04-23] MEDS: MAGNESIUM HYDROXIDE SUSP 30 ML UDC PO PRN (05:42)
[2019-04-23] MEDS: ARFORMOTEROL TART 15MCG/2ML VIAL INH SCH ×2 (07:09→18:51)
[2019-04-23 08:04] LABS: Creatinine Clr Calc Pharmacy 36.9 ml/min; Est GFR (African American) 62.3; Est GFR (Non-African American) 53.8; Magnesium 1.9 mg/dl (1.8-2.4)
[2019-04-23] MEDS: POTASSIUM CHLORIDE 20 MEQ TABCR PO SCH (08:06)
[2019-04-23] MEDS: FUROSEMIDE 20 MG TAB PO SCH (08:07)
[2019-04-23] MEDS: predniSONE 20 MG TAB PO SCH (08:08)
[2019-04-23] MEDS: SENNA 8.6 MG TAB PO SCH (08:08)
[2019-04-23] MEDS: LORazepam 0.5 MG TAB PO PRN (08:09)
[2019-04-23] MEDS ORDERED: Nursing to Pharmacy Communication ONE (10:31)
[2019-04-23] MEDS ORDERED: ALBUT/IPRATROP 3MG/0.5MG NEB 3 ML VIAL NEB PRN (10:34)
[2019-04-23] MEDS ORDERED: FUROSEMIDE 40 MG/4 ML VIAL IV STA (10:44)
[2019-04-23] MEDS ORDERED: POTASSIUM CHLORIDE / WTR 10 MEQ/100 ML PLCT IV SCH (10:48)
--- NOTE | 2019-04-23 11:31 | Palliative Care Progress Note ---
Date of Service April 23, 2019 Assessment & Plan (1) Hospice care: -Patient continues to be on comfort measures/[facility]IP hospice. -For respiratory distress and moist lung sounds, Dr. Romeo gave extra dose of 40mg IV Lasix today. Her daily dose will increase to 40mg PO. -Ordered duonebs Q2h PRN SOB/wheezing. -Increase Roxanol 5mg PO/SL to Q1h PRN. Do not give if RR <12bpm. -Lorazepam 0.5mg was given to patient this morning with no effects. I did increase her dose to 1mg PO/SL Q4h PRN anxiety. Patient was content with this. I spoke to patient's , Ike, on phone and updated him on patient's status and told him we are making medication changes. He is okay with this. -Patient likely not stable for discharge today given her symptoms and SOB. Case management is following for DC planning. Uncertain of disposition at this time. (2) Hypoxia: (3) CHF (congestive heart failure): (4) Acute respiratory distress: Subjective Patient was in distress when I entered room this morning. She is anxious and feels like she cannot breathe. See A&P. Review of Systems Review of Systems: Denies pain. C/o severe SOB Physical Exam Constitutional: + acute distress, + ill appearing, + thin and + frail appearing Eyes: PERRL Neck: normal visual inspection Respiratory: + labored breathing, + uses accessory muscles and + tachypneic Auscultation: + crackles, + rhonchi and + wheezes (expiratory) Cardiovascular: RRR, no murmur, no edema Gastrointestinal (Abdomen): Inspection/Auscultation: abdomen normal to inspection Percussion/Palpation: abdomen soft; abdomen nontender Neurologic: moves all extremities and awake Psychiatric: Orientation: alert and oriented x 3 (periods of forgetfulness/confusion) Affect: + anxious affect Results & Data Vital Signs (Past 12 Hours) Vital Signs Temp Pulse Resp BP Pulse Ox 04/23/19 10:51 77 17 90 04/23/19 07:21 36.4 C L 60 17 145/113 H 90 04/23/19 07:09 60 18 90 04/23/19 04:03 60 18 94 04/22/19 23:43 60 16 95 PG Care Time/CCT Prolonged Care Time Prolonged Care Time: Yes Total Prolonged Care Time: 65 Time Spent Midlevel 65 minutes with >50% of time spent at bedside with patient, nursing staff and on phone with attending physician discussing symptom management and POC.
[2019-04-23] MEDS: guaiFENesin 600 MG TABCR PO SCH ×2 (11:37→20:14)
[2019-04-23] MEDS: LORazepam 1 MG TAB PO PRN (20:14)
--- NOTE | 2019-04-23 23:05 | Hospitalist Progress Note ---
Date of Service April 23, 2019 Assessment & Plan (1) Acute respiratory distress: Acute on chronic systolic CHF COPD also playing role. -Pt is now on 3 L of supplemental O2. -Started Duonebs q4 hr and as per respiratory , -will continue Solumedrol 40 mg Q8hr, Mucinex for cough. -on lasix 40 mg IV BID, will switch to home dose in AM due to increase in creatinine. -will recheck. -I/O, mckeon in place -plan discussed with daughter appears to be to continue hospice. -Patient has been gradually improving. -Patient will be admitted to inpatient hospice with plan to transfer to outpatient hospice. Will not restart medications previously discontinued by hospice ([facility], [facility]). -Family informed that pt is at end stage COPD and CHF and end of her life. They stated that they know ( present Ike, son David and his Felisha) Patient continues to appear wet on auscultation. Potassium has improved. Will order IV dose of lasix. Will need to reassess in AM. Plan is to improve respiratory status prior to discharge as patient would be returning to hospice. (2) Elevated troponin: Likely demand ischemia. Will monitor. Pt does not have any chest pain. Pt has AIDC pacer and EF of 20-25 % per [place]ogram [place] 02/[place] [address] and she is in acute CHF exacerbation since on hospice her lasix was stopped.Troponin elevated probably due to the troponin leak and acute CHF exacerbation . -Continue trending troponins 0.106-->0145 -Continue Lasix but will resume hoome dose in AM. -Strict I/O -Daily weight -Monitor electrolytes and replenish as needed. -Consult cardiology -Consult paliatative Appreciate input (3) CHF (congestive heart failure): See the above (4) Acute on chronic respiratory failure with hypoxia: Pt has end stage COPD. She is on hospice . -Continue Duonebs Q4 hr prn for SOB -Cont Brovana BID, -Started Solumedrol 40 mg Q8hr , currently now on prednsone. -Used BiPAP as needed for chronic respiratory failure (5) Ischemic cardiomyopathy: as the above, pt is on hospice (6) Anxiety: Continue Lorazepam Spent 25 minutes in management of patient. Subjective Patient reports no new symptoms. Review of Systems Review of Systems: All systems reviewed & are unremarkable except as noted in HPI & below Physical Exam Physical Exam: Constitutional: + cachectic Eyes: PERRL, conjunctivae normal, anicteric sclerae ENMT: external ear and nose normal, oropharynx normal Neck: trachea midline, no thyromegaly Respiratory: mild wheezing heard bilaterally, with bibasilar crackles Cardiovascular: RRR, no murmur, no edema paced rhythm Musculoskeletal: no cyanosis or clubbing, extremities motor strength 5/5 Skin: no rashes, warm and dry Neurologic: patellar DTR's 2+ bilat, sensation intact Psychiatric: A+Ox3, euthymic affect Lymphatic: no cervical or axillary lymphadenopathy Results & Data Vital Signs (Past 12 Hours) Vital Signs Temp Pulse Resp BP Pulse Ox 04/23/19 18:51 60 16 92 04/23/19 15:10 87 20 94 04/23/19 15:00 36.7 C 64 20 138/66 93 PG Care Time/CCT Total # of Minutes Spent Total Time Spent with Patient: Total time spent is greater than 50% in coordination of care (as documented) at patient's floor/unit and/or counseling patient:
[2019-04-24] MEDS: LORazepam 1 MG TAB PO PRN ×2 (00:03→06:20)
[2019-04-24] MEDS: MoRPHine SULFATE 5 MG/0.25 ML UDP PO PRN ×9 (00:03→21:51)
[2019-04-24] MEDS: ALBUT/IPRATROP 3MG/0.5MG NEB 3 ML VIAL NEB SCH ×6 (03:04→23:02)
[2019-04-24] MEDS: ARFORMOTEROL TART 15MCG/2ML VIAL INH SCH ×2 (07:04→18:53)
[2019-04-24] MEDS: LORazepam 0.5 MG/1 ML VIAL IV PRN ×3 (07:28→23:27)
[2019-04-24] MEDS: SENNA 8.6 MG TAB PO SCH (08:10)
[2019-04-24] MEDS: guaiFENesin 600 MG TABCR PO SCH ×2 (08:10→21:45)
[2019-04-24] MEDS: predniSONE 20 MG TAB PO SCH (08:10)
[2019-04-24] MEDS: FUROSEMIDE 20 MG TAB PO SCH (08:11)
[2019-04-24] MEDS ORDERED: ATROPINE SULFATE 1% OP SOLN 5 ML BTL OP PRN (10:45)
--- NOTE | 2019-04-24 10:59 | Palliative Care Progress Note ---
Date of Service April 24, 2019 Assessment & Plan (1) Hospice care: -Patient continues to be on comfort measures/GIP hospice through [facility] , day #7 today. -I met with Hospice nurse Dianna to discuss POC. She has plans to discuss with medical health researcher regarding further POC. -Patient did open her eyes but was slow to follow any commands, and is not reliable with such. -Patient appears to be struggling more throughout the day/night. Patient appears relatively comfortable at the moment, but overall, showing decline. -Patient continues to receive duonebs Q2 PRN for wheezing/SOB. -Patient requiring Roxanol Q2 PRN pretty much every two hours. -I am making the following changes to her symptom management regimen: 1. Scheduling the Roxanol 10 mg SL TID (Hold for RR < 10) 2. Continue to have Roxanol 5 mg SL Q1 PRN 3. Adding Atropine gtts 4 gtts SL Q3 PRN for secretions 4. Scheduling Ativan 1 mg po QHS and continuing Ativan 0.5 mg IV Q2 PRN -Patient continues to have moist lung sounds, last K+ was checked on 04/22 and was 2.6. She received K+ riders 40 mEq and K+ increased to 4.7, now receiving Lasix 40 mg po daily. Would consider an additional PRN dose of Lasix. -Patient knees and bottom of her toes showing signs of mottling. -Patient likely not stable for discharge today given her symptoms and SOB. Case management is following for DC planning. Uncertain of disposition at this time. -I called patient , Ike to disuss with him and he is ok with her receiv ing the Roxanol three times a day with breakthrough as needed. -If the patient continues to require Roxanol Q1-2 hours, would have a low threshold for starting a Morphine gtt over the weekend. -Anticipate days to up to a week for life expectancy. -PPS: 20% (2) Hypoxia: (3) CHF (congestive heart failure): (4) Acute respiratory distress: Subjective Patient was in distress when I entered room this morning, breathing with her mouth open. Her eyes were closed and when I said her name she moaned. I asked how her breathing felt and she said "I guess better", but she looks visibly worse. No family at bedside. Review of Systems Review of Systems: Unobtainable due to cognitive status Physical Exam Constitutional: + ill appearing and + frail appearing Eyes: PERRL, conjunctivae normal, anicteric sclerae ENMT: external ear and nose normal, oropharynx normal Neck: trachea midline, no thyromegaly Respiratory: + respiratory distress, + labored breathing, + audible wheezes and symmetric chest movement Auscultation: + rhonchi Cardiovascular: Rate/Rhythm: regular rate and regular rhythm Heart Sounds: normal S1 and normal S2 Vessels: + JVD, dorsalis pedis pulses present and radial pulses present Extremities: + edema Gastrointestinal (Abdomen): normal bowel sounds, soft, nontender, no hepatosplenomegaly LBM 04/23 x 2 Skin: + mottling (starting on knees and bottom of toes on both feet ) Psychiatric: Orientation: alert Lymphatic: no cervical or axillary lymphadenopathy Results & Data Vital Signs (Past 12 Hours) Vital Signs Temp Pulse Resp BP Pulse Ox 04/24/19 07:33 36.1 C L 60 24 164/70 H 96 04/24/19 07:05 65 30 H 91 04/24/19 03:04 60 20 93 04/23/19 23:06 62 16 95 04/23/19 23:00 36.5 C 60 20 155/73 H 96 Supervising Physician Co-Signing Physician Notes Patient seen and examined, collaborated with GENESIS Granado Patient is currently hospice patient-GIP status. Patient with increasing shortness of breath, has required more as needed morphine and Ativan for shortness of breath and anxiety-family notified of patient's decline PE: Patient did not respond to voice or touch, appears comfortable. HEENT: Dry mucous membranes, neck hyperextended Respirations: Prolonged expiration, scattered wheezes, no signs of distress CV: Regular rate Agree with above note, assessment and plan as per GENESIS Granado-we will continue to collaborate with hospice agency regarding plan of care PG Care Time/CCT Total # of Minutes Spent Total Time Spent: 55 Total Time Spent with Patient: Total time spent is greater than 50% in coordination of care (as documented) at patient's floor/unit and/or counseling patient: 55 Prolonged Care Time Prolonged Care Time: Yes Total Prolonged Care Time: 55 Time Spent Midlevel Total time spent 55 minutes with > 50% of that time spent assessing patient, collaborating with hospice nurse, and updating patient
[2019-04-24] MEDS ORDERED: MoRPHine SULFATE 10 MG/0.5 ML UDP PO SCH ×3 (11:00→14:00)
[2019-04-24] MEDS ORDERED: MoRPHine SULFATE 5 MG/0.25 ML UDP PO ONE (11:30)
[2019-04-24] MEDS: MoRPHine SULFATE 10 MG/0.5 ML UDP PO SCH ×2 (16:56→23:17)
--- NOTE | 2019-04-24 18:26 | Hospitalist Progress Note ---
Date of Service April 24, 2019 Assessment & Plan (1) Acute respiratory distress: Acute on chronic systolic CHF COPD also playing role. -Pt is now on 3 L of supplemental O2. -Started Duonebs q4 hr and as per respiratory , -will continue Solumedrol 40 mg Q8hr, Mucinex for cough. -on lasix 40 mg IV BID, will switch to home dose in AM due to increase in creatinine. -will recheck. -I/O, mckeon in place -plan discussed with daughter appears to be to continue hospice. -Patient will be admitted to inpatient hospice with plan to transfer to outpatient hospice. -Palliative care on the board, appreciate recs. Will not restart medications previously discontinued by hospice ([facility], [facility]). -Family informed that pt is at end stage COPD and CHF and end of her life. They stated that they know ( present Ike, son David and his Felisha) Patient continues to appear wet on auscultation. Potassium has improved. Cont IV lasix. Will need to reassess in AM. Plan is to improve respiratory status prior to discharge as patient would be returning to hospice. (2) Elevated troponin: Likely demand ischemia. Will monitor. Pt does not have any chest pain. Pt has AIDC pacer and EF of 20-25 % per [place]ogram [place] [address] and she is in acute CHF exacerbation since on hospice her lasix was stopped.Troponin elevated probably due to the troponin leak and acute CHF exacerbation . -Continue trending troponins 0.106-->0145 -Continue Lasix but will resume hoome dose in AM. -Strict I/O -Daily weight -Monitor electrolytes and replenish as needed. -Consult cardiology -Appreciate palliative recs. Appreciate input (3) CHF (congestive heart failure): See the above (4) Acute on chronic respiratory failure with hypoxia: Pt has end stage COPD. She is on hospice . -Continue Duonebs Q4 hr prn for SOB -Cont Brovana BID, -Started Solumedrol 40 mg Q8hr , currently now on prednsone. -Used BiPAP as needed for chronic respiratory failure (5) Ischemic cardiomyopathy: as the above, pt is on hospice (6) Anxiety: Continue Lorazepam Spent 25 minutes in management of patient. Subjective Pt is resting in bed. Her breathing is slightly improved in comparison to one week ago when she was brought to ER for the SOB. Pt is weak and dying on hospice care. She is alert and oriented x 3. She is pleasant and cooperative. She denies chest pain, fever, chills, abdominal pain, frequency and urgency. Review of Systems Review of Systems: All systems reviewed & are unremarkable except as noted in HPI & below Physical Exam 2 Constitutional: + cachectic, + frail appearing and cooperative Eyes: PERRL, conjunctivae normal, anicteric sclerae ENMT: external ear and nose normal, oropharynx normal Neck: trachea midline elevated JVP Respiratory: + uses accessory muscles, + dullness to percussion, + hyperresonance to percussion, + cough, able to speak in complete sentences, + tachypneic, + prolonged expiratory phase, + grunting and + tripod positioning Auscultation: + crackles and + wheezes Skin: no rashes, warm and dry Neurologic: patellar DTR's 2+ bilat, sensation intact Psychiatric: A+Ox3, euthymic affect Genitourinary: no vaginal lesions, no adnexal mass Lymphatic: no cervical or axillary lymphadenopathy Results & Data Vital Signs (Past 12 Hours) Vital Signs Temp Pulse Resp BP Pulse Ox 04/24/19 15:13 36.7 C 70 20 154/64 H 98 04/24/19 14:51 72 20 98 04/24/19 11:45 93 04/24/19 10:48 64 30 H 86 L 04/24/19 07:33 36.1 C L 60 24 164/70 H 96 04/24/19 07:05 65 30 H 91 PG Care Time/CCT Total # of Minutes Spent Total Time Spent with Patient: Total time spent is greater than 50% in coordination of care (as documented) at patient's floor/unit and/or counseling patient:
[2019-04-24] MEDS ORDERED: LORazepam 1 MG TAB PO SCH (21:00)
[2019-04-25] MEDS: MoRPHine SULFATE 5 MG/0.25 ML UDP PO PRN ×6 (00:56→20:11)
[2019-04-25] MEDS: ALBUT/IPRATROP 3MG/0.5MG NEB 3 ML VIAL NEB SCH ×6 (03:53→23:11)
[2019-04-25] MEDS: LORazepam 0.5 MG/1 ML VIAL IV PRN ×3 (04:47→16:50)
[2019-04-25] MEDS: ARFORMOTEROL TART 15MCG/2ML VIAL INH SCH ×2 (06:54→19:15)
[2019-04-25] MEDS: SENNA 8.6 MG TAB PO SCH (08:05)
[2019-04-25] MEDS: guaiFENesin 600 MG TABCR PO SCH ×2 (08:05→20:40)
[2019-04-25] MEDS: MoRPHine SULFATE 10 MG/0.5 ML UDP PO SCH ×3 (08:05→20:39)
[2019-04-25] MEDS: predniSONE 20 MG TAB PO SCH (08:06)
[2019-04-25] MEDS: FUROSEMIDE 20 MG TAB PO SCH (08:06)
--- NOTE | 2019-04-25 09:15 | Hospitalist Progress Note ---
Date of Service April 25, 2019 Assessment & Plan (1) Acute respiratory distress: Acute on chronic systolic CHF COPD also playing role. -Pt is now on 3 L of supplemental O2. -Started Duonebs q4 hr and as per respiratory , -will continue Solumedrol 40 mg Q8hr, Mucinex for cough. -on lasix 40 mg IV BID, will switch to home dose in AM due to increase in creatinine. -will recheck. -I/O, mckeon in place -plan discussed with daughter appears to be to continue hospice. -Patient will be admitted to inpatient hospice with plan to transfer to outpatient hospice. -Palliative care on the board, appreciate recs. Will not restart medications previously discontinued by hospice ([facility], [facility]). -Family informed that pt is at end stage COPD and CHF and end of her life. They stated that they know ( present Ike, son David and his Felisha) Patient continues to appear wet on auscultation. Potassium has improved. Cont IV lasix. Will need to reassess in AM. Plan is to improve respiratory status prior to discharge as patient would be returning to hospice. (2) Elevated troponin: Likely demand ischemia. Will monitor. Pt does not have any chest pain. Pt has AIDC pacer and EF of 20-25 % per echocardiogram [place] 02/26/2019[place] [address] and she is in acute CHF exacerbation since on hospice her lasix was stopped.Troponin elevated probably due to the troponin leak and acute CHF exacerbation . -Continue trending troponins 0.106-->0145 -Continue Lasix but will resume hoome dose in AM. -Strict I/O -Daily weight -Monitor electrolytes and replenish as needed. -Consult cardiology -Appreciate palliative recs. -Started Mitrazapine for appetite (3) CHF (congestive heart failure): See the above (4) Acute on chronic respiratory failure with hypoxia: Pt has end stage COPD. She is on hospice . -Continue Duonebs Q4 hr prn for SOB -Cont Brovana BID, -Started Solumedrol 40 mg Q8hr , currently now on prednsone. -Used BiPAP as needed for chronic respiratory failure (5) Ischemic cardiomyopathy: as the above, pt is on hospice (6) Anxiety: Continue Lorazepam Spent 25 minutes in management of patient. Subjective Pt seen and examined at the bedside.She is waiting on hospice placement at [facility]. Pt appears better then yesterday but continues to complain of severe SOB due to end stage COPD and end stage CHF. Pt is dying and she is aware of it as well as her family. Pt and her family want to continue hospice care and comfort measures. They also want to continue treatments with antibiotics and Lasix. Pt is afebrile. He Po intake is decreased and she does not have appetite to eat. Pt denies fever, chills, chest pain, hemoptysis, sweating, abdominal pain , frequency and urgency. Review of Systems Review of Systems: All systems reviewed & are unremarkable except as noted in HPI & below Physical Exam Constitutional: + cachectic, + frail appearing and cooperative Eyes: PERRL, conjunctivae normal, anicteric sclerae ENMT: external ear and nose normal, oropharynx normal Neck: trachea midline, no thyromegaly trachea midline Respiratory: + uses accessory muscles, + dullness to percussion, + hyperresonance to percussion, + cough, able to speak in complete sentences, + tachypneic, + prolonged expiratory phase, + grunting, + pursed lip breathing and + tripod positioning Auscultation: + crackles and + wheezes Cardiovascular: RRR, no murmur, no edema Musculoskeletal: no cyanosis or clubbing, extremities motor strength 5/5 Skin: no rashes, warm and dry Neurologic: patellar DTR's 2+ bilat, sensation intact Psychiatric: A+Ox3, euthymic affect Genitourinary: no vaginal lesions, no adnexal mass Lymphatic: no cervical or axillary lymphadenopathy Results & Data Vital Signs (Past 12 Hours) Vital Signs Temp Pulse Resp BP Pulse Ox 04/25/19 07:00 36.7 C 61 22 155/67 H 98 04/25/19 06:56 60 22 98 04/25/19 03:54 68 20 95 04/24/19 23:04 72 20 96 04/24/19 23:00 36.8 C 59 L 20 150/72 H 96 PG Care Time/CCT Total # of Minutes Spent Total Time Spent with Patient: Total time spent is greater than 50% in coordination of care (as documented) at patient's floor/unit and/or counseling patient:
[2019-04-25] MEDS: POLYETHYLENE (MIRALAX) 17 GM PACK PO PRN (11:00)
[2019-04-25] MEDS: ATROPINE SULFATE 1% OP SOLN 5 ML BTL SL PRN (14:12)
[2019-04-25] MEDS: LORazepam 1 MG TAB PO SCH (20:40)
[2019-04-25] MEDS: MIRTAZAPINE TAB 15 MG TAB PO SCH (20:40)
[2019-04-26] MEDS: MoRPHine SULFATE 5 MG/0.25 ML UDP PO PRN ×3 (03:07→16:53)
[2019-04-26] MEDS: ALBUT/IPRATROP 3MG/0.5MG NEB 3 ML VIAL NEB SCH ×6 (03:16→23:02)
[2019-04-26] MEDS: LORazepam 0.5 MG/1 ML VIAL IV PRN (04:40)
[2019-04-26] MEDS: ARFORMOTEROL TART 15MCG/2ML VIAL INH SCH ×2 (07:14→18:59)
[2019-04-26] MEDS: guaiFENesin 600 MG TABCR PO SCH ×2 (08:55→21:59)
[2019-04-26] MEDS: LORazepam 1 MG TAB PO SCH ×2 (08:55→21:31)
[2019-04-26] MEDS: MoRPHine SULFATE 10 MG/0.5 ML UDP PO SCH ×3 (08:55→21:27)
[2019-04-26] MEDS: SENNA 8.6 MG TAB PO SCH (08:56)
[2019-04-26] MEDS: FUROSEMIDE 20 MG TAB PO SCH (08:56)
[2019-04-26] MEDS: predniSONE 20 MG TAB PO SCH (08:56)
[2019-04-26] MEDS: MAGNESIUM HYDROXIDE SUSP 30 ML UDC PO PRN (11:23)
--- NOTE | 2019-04-26 13:23 | Hospitalist Progress Note ---
Date of Service April 26, 2019 Assessment & Plan (1) Acute respiratory distress: Acute on chronic systolic CHF COPD also playing role. -Pt is now on 3 L of supplemental O2. -Continue Duonebs q4 hr and as per respiratory , -Continue Solumedrol 40 mg Q8hr, Mucinex for cough. -on lasix 40 mg IV BID, will switch to home dose in AM due to increase in creatinine. -I/O, mckeon in place -plan discussed with daughter and they want hospice to continue . No heroic measures to be taken. -Patient will be admitted to inpatient hospice with plan to transfer to outpatient hospice. waiting on the placement. -Palliative care on the board, appreciate recs. Will not restart medications previously discontinued by hospice ([facility], [facility]). -Family informed that pt is at end stage COPD and CHF and end of her life. They stated that they know ( present Ike, son David and his Felisha) Patient continues to appear wet on auscultation. Potassium has improved. Cont IV lasix. Will need to reassess in AM. Plan is to improve respiratory status prior to discharge as patient would be returning to hospice. (2) Elevated troponin: Likely demand ischemia. Comfort measures only per family. Pt does not have any chest pain. Pt has AIDC pacer and EF of 20-25 % per echocardiogram on 02/26/2019[place] [address] and she is in acute CHF exacerbation since on hospice her lasix was stopped.Troponin elevated probably due to the troponin leak and acute CHF exacerbation . -Continue Lasix but will resume home dose in AM. -Strict I/O -Daily weight -Monitor electrolytes and replenish as needed. -Appreciate palliative recs. -Started Mitrazapine for appetite (3) CHF (congestive heart failure): See the above (4) Acute on chronic respiratory failure with hypoxia: Pt has end stage COPD. She is on hospice with comfort measures only per family request. -Continue Duonebs Q4 hr prn for SOB -Cont Brovana BID, -Continue Solumedrol 40 mg Q8hr , currently now on prednisone. -Used BiPAP as needed for chronic respiratory failure (5) Ischemic cardiomyopathy: as the above, pt is on hospice (6) Anxiety: Continue Lorazepam Spent 25 minutes in management of patient. (7) Weakness: Pt was sleepy this morning and in the afternoon when she woke up it was noted weakness of the left arm. Pt had previous stroke several years ago but she regained the most of the function of her left arm. Family informed and they do not want any heroic measures to be taken,except for the comfort care. Present on Admission?: No Subjective Pt seen and examined at the bedside. This morning pt was very sleepy but arousable. When she woke up she was avoiding to use her left hand. But she is very alert and oriented, asked if he in on his way and requested to eat lunch. She is feeing herself with her right hand. Called her daughter Alise and she said that pt is informed and he is on his way with pt son. Alise said that pt had previously 2 strokes and her left arm has been weak but regained most of the function.Family requested only comfort measures and no further intervention. PO intake is fair. Pt is dying. She is breathing with increased respiratory effort.Pt is hospice pt and she is willingly continuing hospice and comfort measure and waiting to placement to the [facility] - hospice. She has end stage COPD and CHF. Review of Systems Review of Systems: All systems reviewed & are unremarkable except as noted in HPI & below Physical Exam Constitutional: + cachectic, + frail appearing and cooperative Eyes: PERRL, conjunctivae normal, anicteric sclerae ENMT: external ear and nose normal, oropharynx normal Neck: trachea midline, no thyromegaly trachea midline Respiratory: + uses accessory muscles, + dullness to percussion, + hyperresonance to percussion, + cough, able to speak in complete sentences, + tachypneic, + prolonged expiratory phase, + grunting, + pursed lip breathing and + tripod positioning Auscultation: + crackles and + wheezes Cardiovascular: RRR, no murmur, no edema Musculoskeletal: no cyanosis or clubbing, extremities motor strength 5/5 Skin: no rashes, warm and dry Neurologic: PERRL, EOMI, accommodation nl, no face palsy, no dysarthria normal touch/pain/proprioception and awake Speech / Cognition: + abnormal cognition Motor/Sensory: + abnormal movement Coordination: + abnormal [id number] test Comatose Patient: + hand drop from over head-strikes face left hand weakness Strength 1/5. Psychiatric: A+Ox3, euthymic affect Genitourinary: no vaginal lesions, no adnexal mass Lymphatic: no cervical or axillary lymphadenopathy Results & Data Vital Signs (Past 12 Hours) Vital Signs Temp Pulse Resp BP Pulse Ox 04/26/19 11:05 59 L 10 L 97 04/26/19 07:57 91 04/26/19 07:29 37.0 C 60 20 131/60 87 L 04/26/19 07:16 60 18 79 L 04/26/19 03:16 70 16 90 PG Care Time/CCT Total # of Minutes Spent Total Time Spent with Patient: Total time spent is greater than 50% in coordination of care (as documented) at patient's floor/unit and/or counseling patient:
[2019-04-26 16:19] LABS: Albumin Level 3.1 gm/dl (3.4-5.0); BUN Creatinine Ratio 34.5 (10-20); Calcium 8.7 mg/dl (8.5-10.1); Creatinine Clr Calc Pharmacy 29.9 ml/min; Est GFR (African American) 48.3; Est GFR (Non-African American) 41.6; Potassium 4.3 mmol/L (3.5-5.1)
[2019-04-26 16:22] LABS: Bilirubin,Total 0.9 mg/dl (0.2-1); Total Protein 6.1 gm/dl (6.4-8.2)
[2019-04-26] MEDS ORDERED: FUROSEMIDE 20 MG in SYRINGE 0 ML IV ONE (16:30)
[2019-04-26] MEDS: ATROPINE SULFATE 1% OP SOLN 5 ML BTL SL PRN (16:52)
[2019-04-26] MEDS ORDERED: ALBUMIN 25% 50 ML IV ONE (18:24)
[2019-04-26] MEDS ORDERED: FUROSEMIDE 20 MG in SYRINGE 0 ML IV SCH (21:00)
[2019-04-26] MEDS: MIRTAZAPINE TAB 15 MG TAB PO SCH (21:59)
[2019-04-27] MEDS: ALBUT/IPRATROP 3MG/0.5MG NEB 3 ML VIAL NEB SCH ×6 (03:12→23:09)
[2019-04-27] MEDS: MoRPHine SULFATE 5 MG/0.25 ML UDP PO PRN ×3 (05:12→10:30)
[2019-04-27] MEDS: LORazepam 0.5 MG/1 ML VIAL IV PRN (05:30)
[2019-04-27 07:07] LABS: Basophils # (auto) 0.01 K/uL (0-0.2); Basophils % (auto) 0.1 %; Eosinophils # (auto) 0.01 K/uL (0-0.5); Eosinophils % (auto) 0.1 %; Hematocrit (blood only) 34.6 % (37-47); Hemoglobin 11.1 g/dL (12.0-16.0); Immature Granulocytes # (auto) 0.03 K/uL (0.00-0.02); Immature Granulocytes % (auto) 0.4 %; Lymphocytes # (auto) 0.84 K/uL (1.2-3.4); Lymphocytes % (auto) 11.9 %; Mean Corpuscular Hgb Conc 32.1 g/dL (32-36); Mean Corpuscular Volume 92.8 fL (80-100); Mean Platelet Volume 10.5 fL (7.4-10.4); Monocytes # (auto) 1.15 K/uL (0.11-0.59); Monocytes % (auto) 16.3 %; Neutrophils # (auto) 5.02 K/uL (1.4-6.5); Neutrophils % (auto) 71.2 %; Platelet Count 216 K/uL (130-400); RDW Coefficient of Variation 18.5 % (11.5-14.5); RDW Standard Deviation 61.8 fL (36.4-46.3); Red Blood Count 3.73 M/uL (4.2-5.4); White Blood Count 7.06 K/uL (4.8-10.8)
[2019-04-27] MEDS: ARFORMOTEROL TART 15MCG/2ML VIAL INH SCH ×2 (07:11→18:50)
[2019-04-27] MEDS ORDERED: ALBUMIN 25% 50 ML IV ONE (08:30)
[2019-04-27] MEDS: MoRPHine SULFATE 10 MG/0.5 ML UDP PO SCH ×3 (09:11→20:29)
[2019-04-27] MEDS: LORazepam 1 MG TAB PO SCH ×2 (09:11→20:28)
[2019-04-27] MEDS: guaiFENesin 600 MG TABCR PO SCH ×2 (09:12→20:29)
[2019-04-27] MEDS: SENNA 8.6 MG TAB PO SCH (09:12)
[2019-04-27] MEDS: predniSONE 20 MG TAB PO SCH (09:12)
[2019-04-27] MEDS: POLYETHYLENE (MIRALAX) 17 GM PACK PO PRN (09:22)
--- NOTE | 2019-04-27 09:26 | Palliative Care Progress Note ---
Date of Service April 27, 2019 Assessment & Plan (1) Hospice care: -Hospice/comfort care continues. -Apparently yesterday patient looked like she could be having a stroke-- left sided weakness and "slumped over." patient's family was called in, but patient did improve and perked up. Left sided weakness is resolved today. -Patient was awake and alert during my exam. But does have SOB with any movement and mildly labored breathing at rest as well. -Taking Roxanol 10mg TID, and 5mg Q1h PRN. Has used 3 doses of PRN Roxanol in 24 hours. -Plan is tentatively for patient to transfer to [facility] on Saturday or . -Will continue to follow as needed. (2) Hypoxia: (3) CHF (congestive heart failure): (4) Acute respiratory distress: Subjective Patient had a difficult weekend. Had some stroke-like symptoms yesterday which have apparently resolved today. Review of Systems Review of Systems: C/O SOB at rest and with exertion. No other new complaints. Physical Exam Constitutional: + ill appearing and + frail appearing Neck: normal visual inspection Respiratory: + labored breathing Cardiovascular: RRR, no murmur, no edema Gastrointestinal (Abdomen): Inspection/Auscultation: abdomen normal to inspection Percussion/Palpation: abdomen soft; abdomen nontender Neurologic: moves all extremities and awake Psychiatric: Orientation: alert Results & Data Vital Signs (Past 12 Hours) Vital Signs Temp Pulse Resp BP Pulse Ox 04/27/19 07:30 36.8 C 60 151/67 H 04/27/19 07:12 62 30 H 83 L 04/27/19 03:12 61 16 93 04/26/19 23:02 63 16 98 04/26/19 23:00 36.5 C 60 20 160/64 H 98 Supervising Physician Co-Signing Physician Notes Chart reviewed, patient seen and examined-no family or friends at bedside. Patient was unresponsive to voice or touch on exam, appears comfortable. Patient continuing to require frequent doses of Roxanol in addition to her scheduled Roxanol. Patient also requiring PRN Ativan in addition to her scheduled Ativan. Patient continues on prednisone and scheduled nebs. She did require atropine for excess secretions. PE: Unresponsive to voice or touch Respirations: Unlabored, diminished breath sounds CV: Regular rate Abdomen: Soft, no grimace with palpation Agree with above note, assessment and plan as per GENESIS Gould - patient continues to require GIP level of care for frequent assessments of respiratory distress and anxiety along with frequent PRN's in addition to scheduled medications. Time Spent Midlevel 35 minutes with >50% of the time spent at bedside with patient and IDT discussi ng [condition and GOC].
[2019-04-27] MEDS: ATROPINE SULFATE 1% OP SOLN 5 ML BTL SL PRN (10:31)
--- NOTE | 2019-04-27 11:42 | Hospitalist Progress Note ---
Date of Service April 27, 2019 Assessment & Plan (1) Acute respiratory distress: Acute on chronic systolic CHF COPD also playing role. -Pt is now on 3 L of supplemental O2. -Continue Duonebs q4 hr and as per respiratory , -Continue tapering steroids, Mucinex for cough. -dc IV lasix and switch to po furosemide -I/O, mckeon in place -plan discussed with daughter and they want hospice to continue . No heroic measures to be taken. -[facility] hospice status with plans to transfer to Saturday -Palliative care on the board, appreciate recs. Will not restart medications previously discontinued by hospice ([facility], [facility]). (2) Elevated troponin: Likely demand ischemia. Comfort measures only per family. Pt does not have any chest pain. Pt has AIDC pacer and EF of 20-25 % per echocardiogram [place] 02/[place] [address] and she is in acute CHF exacerbation since on hospice her lasix was stopped.Troponin elevated probably due to the troponin leak and acute CHF exacerbation . - resume home dose furosemide. -Strict I/O -Daily weight -Appreciate palliative recs. -continue Mitrazapine for appetite (3) CHF (congestive heart failure): See the above (4) Acute on chronic respiratory failure with hypoxia: Pt has end stage COPD. She is on hospice with comfort measures only per family request. -Continue Duonebs Q4 hr prn for SOB -Cont Brovana BID, -taper prednisone. -Used BiPAP as needed for chronic respiratory failure (5) Ischemic cardiomyopathy: as the above, pt is on hospice (6) Anxiety: Continue Lorazepam (7) Weakness: Noted weakness of the left arm 04/26. Pt had previous stroke several years ago but she regained the most of the function of her left arm. Family informed and they do not want any heroic measures to be taken, continue comfort care Subjective Ms. Jameson is very sob but denies pain. She is drowsy but able to stay awake during conversation. Review of Systems Review of Systems: All systems reviewed & are unremarkable except as noted in HPI & below Physical Exam Physical Exam: General: no distress Eyes: normal inspection, PERLL Respiratory: chest non tender, expiratory wheezes bilaterally, dyspneic, no accessory muscle use Cardiac: regular rate and rhythm, no rub or gallop, no murmur, no edema, no jvd GI/: active bowel sounds, no abd pain or tenderness, soft, non distended Extremities: normal range of motion, normal strength, non tender Neuro/Psych: alert and oriented x 3, normal mood and affect Skin: normal color, dry Results & Data Vital Signs (Past 12 Hours) Vital Signs Temp Pulse Resp BP Pulse Ox 04/27/19 11:26 76 28 H 87 L 04/27/19 07:35 94 04/27/19 07:30 36.8 C 60 151/67 H 04/27/19 07:12 62 30 H 83 L 04/27/19 03:12 61 16 93 PG Care Time/CCT Total # of Minutes Spent Total Time Spent with Patient: Total time spent is greater than 50% in coordination of care (as documented) at patient's floor/unit and/or counseling patient:
[2019-04-27] MEDS: MIRTAZAPINE TAB 15 MG TAB PO SCH (20:29)
[2019-04-28] MEDS: ALBUT/IPRATROP 3MG/0.5MG NEB 3 ML VIAL NEB SCH ×6 (05:48→23:10)
[2019-04-28] MEDS: ARFORMOTEROL TART 15MCG/2ML VIAL INH SCH ×2 (07:04→19:02)
[2019-04-28] MEDS: POLYETHYLENE (MIRALAX) 17 GM PACK PO PRN (07:33)
[2019-04-28] MEDS: guaiFENesin 600 MG TABCR PO SCH ×2 (09:00→20:14)
[2019-04-28] MEDS: predniSONE 20 MG TAB PO SCH (09:00)
[2019-04-28] MEDS: SENNA 8.6 MG TAB PO SCH (09:01)
[2019-04-28] MEDS: MoRPHine SULFATE 10 MG/0.5 ML UDP PO SCH ×3 (09:07→20:14)
[2019-04-28] MEDS: LORazepam 1 MG TAB PO SCH ×2 (09:13→20:14)
[2019-04-28] MEDS: ATROPINE SULFATE 1% OP SOLN 5 ML BTL SL PRN ×2 (13:55→22:37)
--- NOTE | 2019-04-28 16:51 | Hospitalist Progress Note ---
Date of Service April 28, 2019 Assessment & Plan (1) Acute respiratory distress: Acute on chronic systolic CHF COPD also playing role. -Pt is now on 3 L of supplemental O2. -Continue Duonebs q4 hr and as per respiratory , -Continue tapering steroids, Mucinex for cough. -dc'd IV lasix and switched to po furosemide -I/O, mckeon in place -plan discussed with daughter and they want hospice to continue . No heroic measures to be taken. -[facility]IP hospice status with plans to transfer to Saturday -Palliative care on the board, appreciate recs. Will not restart medications previously discontinued by hospice (BB, [facility]). (2) Elevated troponin: Likely demand ischemia. Comfort measures only per family. Pt does not have any chest pain. Pt has AIDC pacer and EF of 20-25 % per echocardiogram [place] 02/[place] [address] and she is in acute CHF exacerbation since on hospice her lasix was stopped.Troponin elevated probably due to the troponin leak and acute CHF exacerbation . - resumed home dose furosemide. -Appreciate palliative recs. -continue Mitrazapine for appetite (3) CHF (congestive heart failure): See the above (4) Acute on chronic respiratory failure with hypoxia: Pt has end stage COPD. She is on hospice with comfort measures only per family request. -Continue Duonebs Q4 hr prn for SOB -Cont Brovana BID, -taper prednisone. -Used BiPAP as needed for chronic respiratory failure (5) Ischemic cardiomyopathy: as the above, pt is on hospice (6) Anxiety: Continue Lorazepam (7) Weakness: Noted weakness of the left arm 04/26. Pt had previous stroke several years ago but she regained the most of the function of her left arm. Family informed and they do not want any heroic measures to be taken, continue comfort care Subjective Ms. Jameson continues to appear dyspneic. She reports that she is comfortable. Review of Systems Review of Systems: All systems reviewed & are unremarkable except as noted in HPI & below Physical Exam Physical Exam: General: no distress Eyes: normal inspection, PERLL Respiratory: chest non tender, clear to auscultation, normal breath sounds, no respiratory distress, no accessory muscle use Cardiac: regular rate and rhythm, no rub or gallop, no murmur, +2 pitting edema le GI/: active bowel sounds, no abd pain or tenderness, soft, non distended Extremities: normal range of motion, normal strength, non tender Neuro/Psych: alert and oriented x 3, normal mood and affect Skin: normal color, dry Results & Data Vital Signs (Past 12 Hours) Vital Signs Temp Pulse Resp BP Pulse Ox 04/28/19 15:39 36.5 C 65 18 134/54 L 90 04/28/19 15:18 59 L 18 91 04/28/19 11:12 60 92 04/28/19 07:26 36.8 C 61 20 153/56 H 91 04/28/19 07:08 68 20 90 PG Care Time/CCT Total # of Minutes Spent Total Time Spent with Patient: Total time spent is greater than 50% in coord ination of care (as documented) at patient's floor/unit and/or counseling patient:
[2019-04-28] MEDS: MoRPHine SULFATE 5 MG/0.25 ML UDP PO PRN (17:00)
[2019-04-28] MEDS: MIRTAZAPINE TAB 15 MG TAB PO SCH (20:14)
[2019-04-29] MEDS: ALBUT/IPRATROP 3MG/0.5MG NEB 3 ML VIAL NEB SCH ×6 (03:37→23:09)
[2019-04-29] MEDS: ARFORMOTEROL TART 15MCG/2ML VIAL INH SCH ×2 (07:32→18:53)
[2019-04-29] MEDS: MoRPHine SULFATE 10 MG/0.5 ML UDP PO SCH ×3 (08:06→21:49)
[2019-04-29] MEDS: guaiFENesin 600 MG TABCR PO SCH ×2 (08:06→21:47)
[2019-04-29] MEDS: LORazepam 1 MG TAB PO SCH ×2 (08:06→21:49)
[2019-04-29] MEDS: SENNA 8.6 MG TAB PO SCH (08:06)
[2019-04-29] MEDS: predniSONE 20 MG TAB PO SCH (08:07)
--- NOTE | 2019-04-29 11:44 | Hospitalist Progress Note ---
Date of Service April 29, 2019 Assessment & Plan (1) Acute respiratory distress: Acute on chronic systolic CHF COPD also playing role. -Pt is now on 2 L of supplemental O2. -Continue Duonebs q4 hr and as per respiratory , -Continue tapering steroids, Mucinex for cough. -dc'd IV lasix and switched to po furosemide -I/O, mckeon in place -[facility]IP hospice status with plans to transfer to -Palliative care on the board, appreciate recs. Will not restart medications previously discontinued by hospice ([facility], [facility]). (2) Elevated troponin: Likely demand ischemia. Comfort measures only per family. Pt does not have any chest pain. Pt has AIDC pacer and EF of 20-25 % per echocardiogram on 02/26/2019. [place]NP [place] [address] and she is in acute CHF exacerbation since on hospice her lasix was stopped.Troponin elevated probably due to the troponin leak and acute CHF exacerbation . - resumed home dose furosemide. -Appreciate palliative recs. -continue Mitrazapine for appetite (3) CHF (congestive heart failure): See the above (4) Acute on chronic respiratory failure with hypoxia: Pt has end stage COPD. She is on hospice with comfort measures only per family request. -Continue Duonebs Q4 hr prn for SOB -Cont Brovana BID, -taper prednisone. -Used BiPAP as needed for chronic respiratory failure (5) Ischemic cardiomyopathy: as the above, pt is on hospice (6) Anxiety: Continue Lorazepam (7) Weakness: Noted weakness of the left arm 04/26. Pt had previous stroke several years ago but she regained the most of the function of her left arm. Family informed and they do not want any heroic measures to be taken, continue comfort care Subjective Lethargic, does not awaken with verbal stimulus. Physical Exam Respiratory: normal respiratory effort; no respiratory distress Auscultation: + rhonchi Cardiovascular: RRR, no murmur, no edema Results & Data Vital Signs (Past 12 Hours) Vital Signs Temp Pulse Resp BP Pulse Ox 04/29/19 10:59 60 14 95 04/29/19 07:45 36.8 C 60 18 159/55 H 98 04/29/19 07:32 60 16 98 04/29/19 03:38 60 14 97 04/29/19 00:33 36.4 C L 60 17 164/62 H 92 PG Care Time/CCT Total # of Minutes Spent Total Time Spent with Patient: Total time spent is greater than 50% in coordination of care (as documented) at patient's floor/unit and/or counseling patient:
[2019-04-29] MEDS: MIRTAZAPINE TAB 15 MG TAB PO SCH (21:47)
[2019-04-30] MEDS: LORazepam 0.5 MG/1 ML VIAL IV PRN ×2 (00:03→19:37)
[2019-04-30] MEDS: ALBUT/IPRATROP 3MG/0.5MG NEB 3 ML VIAL NEB SCH ×5 (03:20→18:52)
[2019-04-30] MEDS: ARFORMOTEROL TART 15MCG/2ML VIAL INH SCH ×2 (07:16→18:51)
--- NOTE | 2019-04-30 09:07 | Discharge Summary ---
Date of Service April 30, 2019 Admission HPI Per Admitting Provider 73 y/o F Hx advanced COPD, systolic CHF 25%, pacer/AICD, CAD, AF, HTN, HLD, anxiety. The pt is dependent on 4-5L 02. Hypoxic, delirious on arrival, exhibiting a degree of respiratory distress and meriting treatment with a BiPAP. She has been admitted multiple times this year for respiratory issues related to both COPD and CHF and mesenteric ischemia. Recently admitted for respiratory distress and sent home on hospice. Patient has been home just today since coming home from [facility]. She is gotten increasingly delirious, at times saying she wants to go home, saying that she wants to go to the hospital and actually called 911 prior to arrival here without the family knowing. Patient lives with her . Patient's daughter is at the bedside and adds that care for her has grown increasingly difficult given her weakness and increasing confusion. Initial labs are notable for an acutely elevated troponin from her baseline, as well as elevated BNP >45517 and elevated INR. Given 60 mg IV Lasix. PMH: 1) CAD - [place] 1999 2) Chronic AF 3) History of GI bleed 4) COPD - dependent on 4-5 L home 02 5) AICD/pacer 6) History of subarachnoid hemorrhage 7) HTN 8) HLD 9) Anxiety 10) Mesenteric ischemia 11) Chronic systolic CHF - EF 25% Surgical: 1) Carotid endarterectomy 2) Hysterectomy 3) Carpal tunnel release 4) AICD/pacer Social: Does not currently smoke or drink - extensive smoking history Family: Both parents du to complications of CHF Principal Diagnosis CHF, COPD Discharge Exam Constitutional + ill appearing and + cachectic Respiratory + labored breathing Skin + pallor Neurologic moves all extremities and awake Psychiatric Orientation: alert and oriented x 3 confusion Discharge Data Allergies Allergy/AdvReac Type Severity Reaction Status Date / Time Sulfa (Sulfonamide Allergy Intermediate RASH Verified 04/03/19 07:24 Antibiotics) morphine AdvReac Mild GI SYMPTOMS Verified 04/03/19 07:24 Consultations 04/19/19 00:21 ED Decision to Admit Stat 04/19/19 03:11 Consult Case Management - Discharge Planning Routine Consult Palliative Care Routine 04/19/19 14:15 Consult Palliative Care Routine 04/19/19 14:35 Consult Cardiology Routine Hospital Course (1) Acute respiratory distress: Acute on chronic systolic CHF COPD also playing role. - Continue supplemental O2 -Duonebs q4 hr provided -Continue tapering steroids, Mucinex for cough. -dc'd IV lasix and switched to po furosemide -I/O, mckeon in place -GIP hospice status with plans to transfer to [place] -Palliative care consulted Will not restart medications previously discontinued by hospice (BB, [facility]). (2) Elevated troponin: Likely demand ischemia. Comfort measures only per family. Pt does not have any chest pain. Pt has AIDC pacer and EF of 20-25 % per echocardiogram on 02/26/2019. [place] BNP was [address] and she was in acute CHF exacerbation as furosemide was stopped for hospice care.Troponin elevated probably due to the troponin leak and acute CHF exacerbation . - resumed home dose furosemide for patient's comfort -continue Mitrazapine for appetite (3) CHF (congestive heart failure): See the above (4) Acute on chronic respiratory failure with hypoxia: Pt has end stage COPD. She is on hospice with comfort measures only per family request. - Duonebs Q4 hr prn for SOB -Cont Brovana BID, -taper prednisone. -Used BiPAP as needed for chronic respiratory failure (5) Ischemic cardiomyopathy: as the above, pt is on hospice (6) Anxiety: Continue Lorazepam (7) Weakness: Noted weakness of the left arm 04/26. Pt had previous stroke several years ago but she regained the most of the function of her left arm. Family informed and they do not want any heroic measures to be taken, continue comfort care Total Time Total Time Spent Total Time Spent (In Minutes): > 30 minutes Discharge Plan Discharge Items Patient Disposition: Hospice - Medical Facility Reason For Visit: SOB Discharge Diagnosis: CHF, COPD Discharge Goals: Decrease discomfort Activity: Resume your previous activity Non-emergency contact: Primary Care Provider Call non-emergency contact if: you have any medication questions Follow-up/Referrals: Edy Ornelas MD [Primary Care Provider] - Diet: Regular Addtl Provider Instructions: Taper prednisone: 30 mg x 3 days 20 mg x 3 days 10 mg x 3 days Prescriptions: New morphine concentrate 100 mg/5 mL (20 mg/mL) Solution 0.5 ml PO TID Qty: 5 RF: 0 furosemide 20 mg Tablet 20 mg PO QAM Qty: 30 RF: 0 lorazepam 1 mg Tablet 1 mg PO BID Qty: 6 RF: 0 guaifenesin [Mucinex] 600 mg Tablet Extended Release 12hr 1,200 mg PO Q12 Qty: 30 RF: 0 atropine 1 % Drops 4 drp sublingual Q3H PRN (Reason: secretions) Qty: 1 RF: 0 prednisone 20 mg Tablet 40 mg PO DAILY Qty: 30 RF: 0 mirtazapine 15 mg Tablet 15 mg PO HS Qty: 30 RF: 0 Continued potassium chloride 20 mEq tablet extended release PO .TAKE 1 TABLET BY SALAS Qty: 90 RF: 0 acetaminophen 500 mg tablet 1 PO .TAKE 1 TABLET Every RF: 0 Brovana 15 mcg/2 mL Solution For Nebulization 15 mcg Inhalation BIDR Qty: 120 RF: 3 ondansetron HCl [Zofran] 4 mg tablet 4 mg PO Q6H PRN (Reason: nausea and vomiting) Qty: 10 RF: 0 prochlorperazine maleate [Compazine] 10 mg tablet 10 mg PO Q6H PRN (Reason: nausea and vomiting) Qty: 20 RF: 0 albuterol sulfate [Ventolin HFA] 90 mcg/actuation HFA aerosol inhaler 1 - 2 puff inhalation Q4 PRN (Reason: Shortness Of Breath Or Wheezing) RF: 0 furosemide [Lasix] 20 mg tablet 20 mg PO DAILY RF: 0 Combivent Respimat 20-100 mcg/actuation mist 1 puff inhalation TID RF: 0 morphine concentrate 100 mg/5 mL (20 mg/mL) solution 5 mg PO Q6H PRN (Reason: pain) Qty: 30 RF: 0 lorazepam 0.5 mg tablet 0.5 mg PO Q4H PRN (Reason: anxiety) Qty: 20 RF: 0 Discontinued ezetimibe 10 mg tablet PO .TAKE ONE TABLET BY M Qty: 90 RF: 0 sertraline 50 mg tablet PO .TAKE 1 TABLET DAILY Qty: 90 RF: 0 pramipexole 0.25 mg tablet PO .TAKE 1 TABLET BY SALAS Qty: 90 RF: 0 clopidogrel 75 mg tablet PO .take 1 tablet by aslas Qty: 90 RF: 0 atorvastatin 80 mg tablet PO .TAKE 1 TABLET AT BED Qty: 90 RF: 0 ergocalciferol (vitamin D2) 50,000 unit capsule PO .TAKE 1 CAPSULE Weekl Qty: 12 RF: 0 lisinopril 2.5 mg tablet PO .TAKE 1 TABLET DAILY. Qty: 90 RF: 0 aspirin 81 mg tablet PO .TAKE 1 TABLET DAILY. RF: 0 carvedilol 12.5 mg tablet PO .TAKE 1 & 1/2 TABLETS RF: 0 Stand-Alone Forms: [facility] Discharge Orders: Discharge Order (Routine); Ordered 04/30/19 Ordered By: Lucie Ruby Admission Data Admit Date/Time: 04/19/19 15:13 Attending Provider: Girma Shine Admit Provider: Kimmy Kenny Primary Care Provider: Edy Ornelas V. Other Providers: [place] ; Laura Wesley ; Jeffrey Sosa ; [place] ; Arjun Villagran ; Dilip Fernandes ; tOto Flynn Jr ; Oskar Magallon ; Miri Terry ; Laura Jhaveri ; Kevin Rey ; Kevin Vidales ; Donnell Jones ; Saúl Simpson ; Devorah Wright ; Krista Moses ; Shravan Hickey Service: Medical Other Pending Studies at Discharge: No
[2019-04-30] MEDS: SENNA 8.6 MG TAB PO SCH ×2 (10:36→11:11)
[2019-04-30] MEDS: guaiFENesin 600 MG TABCR PO SCH ×2 (10:36→11:11)
[2019-04-30] MEDS: LORazepam 1 MG TAB PO SCH ×2 (10:36→11:14)
[2019-04-30] MEDS: MoRPHine SULFATE 10 MG/0.5 ML UDP PO SCH ×2 (10:36→13:30)
[2019-04-30] MEDS: predniSONE 20 MG TAB PO SCH ×2 (10:36→11:11)
== END 2019-04-30 19:46 | disposition hospice, inpatient (51) | DRG 291 ==
LOC: 2N 21:50 → ED 21:50 → SUATTDRO 04-19 02:07 → 2N 04-19 02:37 → SUATTDRO 04-19 15:13 → 4W 04-19 20:06